=== PATIENT | female | born 1945 | race Caucasian/White ===

== ENCOUNTER → 2017-09-19 11:14 | Outpatient (CLI) | payer MEDICARE, OTHER, SELFPAY ==
[2017-09-19 14:34] LABS: Absolute Lymphocyte Count 1.74 X10^3/ul (0.83-4.51); Absolute Neutrophil Count 6.3 X10^3/uL (2.0-7.7); Basophil# 0.03 X10^3/uL; Basophil% 0.3 % (0-1); Eosinophil# 0.18 X10^3/uL; Hematocrit 38.5 % (37-47); Hemoglobin 12.3 g/dl (12.0-15.0); Lymphocyte # 1.74 X10^3/ul (4.0); Lymphocyte % 18.9 % (19-41); Mean Corp Hgb Conc 31.9 g/gl (32-36); Mean Corpuscular Hgb 29.7 pg (27.0-32.0); Mean Platelet Vol. 10.1 fl (6.2-12.0); Monocyte# 0.92 X10^3/uL; Neutrophil % 68.6 % (47-70); Platelet Count 418 K/mm3 (150-450); RBC Distribution Width CV 13.6 % (11.6-14.6); RBC Distribution Width SD 45.1 fl (35.1-43.9); Red Blood Count 4.14 M/mm3 (4.2-5.4); White Blood Count 9.2 K/mm3 (4.4-11.0)
[2017-09-19 14:40] LABS: POSITIVE COUNT NO; POSITIVE DIFFERENTIAL NO; POSITIVE MORPHOLOGY NO
[2017-09-19 14:56] LABS: T4 Free Direct 1.11 ng/dL (0.76-1.46); Thyroid Stim Hormone (TSH) 0.65 uIU/mL (0.358-3.74)
== END ==
PROVIDERS: Family Provider Internal Medicine; PCP Internal Medicine; Visit Provider Internal Medicine
DX: D64.9 Anemia, unspecified (principal); E03.9 Hypothyroidism, unspecified
CPT/HCPCS: 36415; 84439; 84443; 85025

== ENCOUNTER 2017-10-14 09:30 | Outpatient (RCR) | payer MEDICARE, OTHER, SELFPAY ==
--- NOTE | 2017-08-24 15:03 | HP.PTEVAL_ITS ---
Patient's Visit Information AD CROFT is a 72 year old F referred to Physical Therapy by DANIEL HURD with a diagnosis of S/P LAMINECTOMY. ACUTE POSTOP PAIN. LUMBAR RADICULOPATHY. PARASTHESIAS. Date of Evaluation: 08/24/17 Physical Therapist: Valarie Gonzalez - Visit Plan Frequency: 2-3x /Week Duration: 4-6 Weeks Plan: POSTURE CORRECTION/STRENGTHENING, INSTRUCTION IN APPROPRIATE BODY MECHANICS AND ACTIVITY MODIFICATIONS. DLS STARTING WITH A NEUTRAL SPINE PROGRESSING ROM WHEN OK'D BY SURGEON. MARCELO LE ROM, STRETCHING AND STRENGTHENING. HEP INSTRUCTION. *CURRENTLY NO BENDING, TWISTING OR LIFTING > 4LBS* - Subjective Subjective: DX: LAMINECTOMY AND FUSION OF L345 WITH CAGE PLACEMENT 07/26/17. Work/Leisure: RETIRED. LIKES TO WALK FOR EX. PILATES. Disability: NO. Present symptoms: CENTRAL LOW BACK PAIN. MARCELO HIP AND THIGH PAIN TO KNEES. NUMBNESS IN THE BOTTOM OF RIGHT FOOT. SINCE SURGERY RIGHT LITTLE FINGER IS ALSO NUMB. Present since: SURGERY DATE WAS JUL 26 2017. Pain Scale: LOW BACK: WORST 5/10, LEAST 3/10. HIPS/THIGHS: WORST 6/10, LEAST 0/10. Currently: LBP : 3/10, MARCELO HIPS &THIGHS: 2/10. Commenced as a result of: CHRONIC LOW BACK PAIN AND BULGING DISCS. WAS LOSING FEELING IN FEET AND RIGHT LOWER LEG. WAS ALSO FALLING. Symptoms at onset: LBP. Worse: STANDING, PROLONGED SITTING,. Better: PAIN MEDICINE. LYING DOWN. WALKING SOMETIMES. Disturbed sleep: NO. Previous history/Previous treatment: [facility]. PT MULTIPLE TIMES. PILATES. TENS UNIT. CHIROPRACTOR 1X/MO FOR YEARS. Coughing/sneezing/straining: NEGATIVE. Gait: WALKER IN THE MORNING, AT NIGHT AND WHEN SHE GOES OUT. Difficulty initiating urinatin: NO. Accidents: NO. Unexplained weight loss: NO. Imaging: MOST RECENT X-RAY OF LOW BACK WAS 2 WEEKS AGO AND EVERYTHING LOOKS GOOD. MRI SHOWED L4 NERVE ROOT INVOLVEMENT BEFORE SURGERY. 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 OTHER: PATIENT REPORTS SHE DID NOT HAVE THE NERVE PAIN IN HER HIPS AND LEGS BEFORE SURGERY AND THEY TOLD HER IT WAS FROM THE WORK THEY DID IN HER BACK. OTHERWISE SHE FEELS LIKE THE SURGERY WAS SUCCESSFUL. STATES SHE IS TAKING A LOT OF NEUROTIN AND HASN'T BEEN ABLE TO WEAN OFF DUE TO THE PAIN. UP TO TWO LAPS OF WALKING AT THE GAULT NOW. HAS STARTED PRIVATE TRAINING AGAIN FOR PILATES TODAY. - Objective Sitting Posture: FAIR. Standing Posture: FAIR. Lordosis: REDUCED. Lateral shift: NO. Relevant shift: N/A. Active Correction of posture: BETTER. Other Observations: UNABLE TO TRANSFER FROM SIT TO STAND WITHOUT USE OF HER UE'S. Motor deficit: MARCELO LE'S GROSSLY 4-/5 WITH MMT. Sensory deficit: LIGHT TOUCH SENSATION IS INTACT AND SYMMETRICAL MARCELO LE'S. ROM deficit: WFL. Reflexes: UNABLE TO ELICIT MARCELO LE'S. Dural Signs: NEGATIVE MARCELO LE'S. Lumbar mvmt loss: NT. Core strength: POOR. Palpation: INCISION LOOKS GOOD WITHOUT ANY SIGNS OF INFECTION. - Goals Goal 1:: DECREASE C/O LBP Goal Time Frame: 4-6 Weeks Goal 2:: DECREASE C/O MARCELO LE SX'S. Goal Time Frame: 4-6 Weeks Goal 3:: IMPROVE BENDING, LIFTING, STANDING, WALKING, ADL AND LEISURE FUNCTION Goal Time Frame: 4-6 Weeks Goal 4:: INSTRUCT IN PROPHYLAXIS Goal Time Frame: 4-6 Weeks - Rehabilitation Potential Rehabilitation Potential: Fair - Anticipated Interventions Patient/Client Instruction: Educate patient on: Condition, Plan of Care, Risk Factors, Benefits of Fitness Program For the Purpose of:: To improve self management Therapeutic Exercise to Include: Strength training, Endurance training, Balance training, Body mechanics, Postural training, Flexibilty training, Gait and locomotor training, Dynamic Lumbar Stabilization For the Purpose of:: To improve ability of physical actions for home/community/ work/leisure, To improve gait and locomotor functions, To assume or resume ADL's Cryotherapy (ice pack, ice massage): Yes Thermo therapy (hot pack): Yes For the Purpose of:: To decrease pain, To decrease swelling/inflammation Thank you for the opportunity to evaluate your patient. For Medicare and Medicare HMO plans, please review the plan of care and approve it. It will need to be FAXED BACK to us at [phone] for Medicare purposes. Please let me know if there are questions or concerns regarding this plan of care. Physician Signature: Date:
--- NOTE | 2017-08-25 09:28 | HP.OTEVAL_ITS ---
Patient's Visit Information AD CROFT is a 72 year old F, referred to Occupational Therapy by VICKEY NICOLAS, with a diagnosis of s/p Laminectomy with Fusion. Date of Evaluation: 08/24/17 Occupational Therapist: Lindsay Arenas - Subjective Subjective: Pt had laminectomy with lumbar fusion on 07/26/17 secondary to increased pain limiting her independence with BADLs, IADLS and overall quality of life. She now has restrictions for no lifting greater than 4lbs, no bending and no twisting. She lives with her and is using a wheeled walker for ambulation and DME/AE for BADLs at this time. She is limited with her independence with BADLs/IADLs secondary to her s/p laminectomy. Her is able to assist her with BADL's/IADL's when needed. Pt has increased pain in her bilateral hips since surgery in July. - Pain bilateral hips 2 Pain Intensity Range: 2, 5 - Objective Objective/Observation: Pt demonstrated decreased independence with BADLs/IADLs. Pt demo increased pain in her lower back and bilateral hips that limits her with BADL's/IADLs as well as having her back restrictions. Pt has to use DME/AE to assist w/ BADL's. - ROM ROM Comments: BUE ROM WFL - Strength Strength Comments: DNT 2' back restrictions. Pt was participating with pilates prior to sx and just started taking 1 on 1 pilates again 08/24/17. - Edema Other: no edema noted - Sensation Sensation Comments: pt states numbness/tingling R 5th digit since sx. Pt states it is starting to get better and not tingle as much. - DASH-Disabilities of Arm, Shoulder& Hand DASH Sum: 69 - Goals Goal:: Pt will be MOD I with all BADL's using DME/AE as needed while maintaining back restrictions with good safety awareness. Goal:: Pt will be MOD I with walk in shower transfers using shower chair and grab bars as needed. Goal:: Pt will be educated on DME/AE, adaptive tech, compensatory strategies and energy conservation techniques to assist with BADLs/IADLs while maintaining back restrictions with good understanding and demonstration 100%x. Goal:: Pt will be educated on BUE HEP to increase strength and activity tolerance with good understanding and follow-through 100%x. - Rehabilitation General Assessment: Pt demo decreased independence with BADLS/IADLs secondary to back restrictions s/p sx. Pt demo increased pain in her bilateral hips s/p sx. Pt demo decreased awareness and education on adaptive tech, compensatory strategies and DME/AE to increase her independence and safety with BADLs/IADLs. Rehabilitation Potential: Excellent - Anticipated Interventions Anticipated Interventions: Strengthening, ADL Training, Education re assistive Equipment, Caregiver Training, Home Program - Visit Plan Frequency: 1x/Week Duration: 4 Weeks General Plan: increase independence with BADL's/IADL's, educate on DME/AE, compensatory strategies, adaptive tech, energy conservation tech. Educate on BUE HEP to increase strength and activity tolerance. TEXT: Thank you for the opportunity to evaluate your patient. For Medicare and Medicare HMO plans, please review the plan of care and approve it. It will need to be FAXED BACK to us at [phone] for Medicare purposes. Please let me know if there are questions or concerns regarding this plan of care. Physician Signature: Date:
--- NOTE | 2017-09-19 16:42 | HP.PTREVAL_ITS ---
VICKEY NICOLAS It has been my pleasure to treat AD CROFT over the last 10 visits for S/ P LAMINECTOMY. ACUTE POSTOP PAIN. LUMBAR RADICULOPATHY. PARASTHESIAS. Please see the progress note below for an update on the physical therapy plan of care! Subjective: PATIENT REPORTS THAT THE HEAT AND THE STRETCHES HELPED LAST VISIT AND SHE IS FEELING BETTER TODAY. PATIENT REPORTS SHE IS BETTER OVER-ALL. SHE STATES SHE DOESN'T HAVE TO USE THE WALKER NOW AND SHE DOESN'T HAVE TO TAKE THE STRONGER PAIN MEDICINE ANYMORE - JUST TYLONOL NOW. ABLE TO DO SOME THINGS IN THE KITCHEN NOW. CAN DO SOME LIGHT MOPPING WITHOUT TWISTING. CAN DO STEPS IF SHE DOESN'T LEAD WITH RIGHT LEG. CAN DRIVE. WENT TO [place] FOR THE FIRST TIME TUESDAY AND WENT TO A MOVIE. PAIN DOES GET WORSE THE DAY GOES ON AND STANDING PROVOKES PAIN. HARD TO STAND LONG ENOUGH TO PREPARE A LIGHT MEAL. WENT BACK TO SURGEON Aug AND THEY REALEASED HER. STATES THEY LIFTED ALL OF HER RESTRICTIONS AND SHE IS ALLOWED TO DO ACTIVITY TOLERATED AT THIS POINT INCLUDING BENDING, LIFTING AND TWISTING. SHE HAS BEEN INCREASING THOSE ACTIVITIES. HAD INCREASED RIGHT LE PAIN ABOUT A WEEK AGO FOR NO APPARENT REASON AND COULDN'T DO HER HOME EX'S BUT SHE CAN AGAIN NOW. SHE IS STILL HAVING MORE TROUBLE MOVING NOW THAN BEFORE THAT FLARE UP. STATES HER HAMSTRINGS L>R STILL FEEL TIGHT AND SHE FEELS MORE MUSCULAR TIGHTNESS IN HER BACK NOW THAN BEFORE THE WEEKEND OF SEP 10 AND . WOULD LIKE TO STAY IN PT TO SAFELY TRANSITION BACK TO BETTER MOBILITY WITHOUT RESTRICTIONS NOW. Objective/Function: Observations: ABLE TO TRANSFER FROM SIT TO STAND WITHOUT USE OF HER UE'S BUT IT IS DIFFICULT. Motor deficit: MARCELO LE'S GROSSLY 4-/5 WITH MMT. Sensory deficit: LIGHT TOUCH SENSATION IS INTACT AND SYMMETRICAL MARCELO LE'S. ROM deficit: WFL. Reflexes: UNABLE TO ELICIT MARCELO LE'S. Dural Signs: NEGATIVE LEFT AND MILDY POSITIVE RIGHT LE. Lumbar mvmt loss: FLEX - MOD, EXT - SANKET, MARCELO SG - SANKET. Core strength: POOR. Palpation: INCISION LOOKS GOOD WITHOUT ANY SIGNS OF INFECTION BUT THREE SPOTS THAT STILL HAVE SCAB OR GLUE. PATIENT REPORTS IT IS GETTING BETTER. RECOMMENDED SHE HAVE HER CONTINUE TO MONITOR IT. Plan Plan: RECOMMEND CONTINUE PT FOR POSTURE AND CORE STRENGTHEING, STM, MARCELO LE STRENGTHENING AND SLOW PROGRESSION OF LUMBAR ROM. EMPHASIZE INSTRUCTION IN PROPER BODY MECHANICS AND HELP PATIENT RESUME TO PRIOR ACTIVITY LEVEL SAFELY. MH OR CP INDICATED. Goals Goal 1:: DECREASE C/O LBP Goal Time Frame: 4-6 Weeks Goal Progress: Progressing Goal 2:: DECREASE C/O MARCELO LE SX'S. Goal Time Frame: 4-6 Weeks Goal Progress: Progressing Goal 3:: IMPROVE BENDING, LIFTING, STANDING, WALKING, ADL AND LEISURE FUNCTION Goal Time Frame: 4-6 Weeks Goal Progress: Progressing Goal 4:: INSTRUCT IN PROPHYLAXIS Goal Time Frame: 4-6 Weeks Goal Progress: Progressing Anticipated Interventions Patient/Client Instruction: Educate patient on: Condition, Plan of Care, Risk Factors, Benefits of Fitness Program For the Purpose of:: To improve self management Therapeutic Exercise to Include: Strength training, Endurance training, Balance training, Body mechanics, Postural training, Flexibilty training, Gait and locomotor training, Dynamic Lumbar Stabilization For the Purpose of:: To improve ability of physical actions for home/community/ work/leisure, To improve gait and locomotor functions, To assume or resume ADL's Cryotherapy (ice pack, ice massage): Yes Thermo therapy (hot pack): Yes For the Purpose of:: To decrease pain, To decrease swelling/inflammation Please do not hesitate to contact me at [phone] by phone or Fax: if you have questions or concerns regarding this new plan of care! Sincerely, Valarie Gonzalez
--- NOTE | 2017-10-14 10:03 | HP.PTDCSUM_ITS ---
HP - PT D/C Summary It has been my pleasure to treat AD CROFT under orders from VICKEY NICOLAS for the diagnosis of S/P LAMINECTOMY. ACUTE POSTOP PAIN. LUMBAR RADICULOPATHY. PARASTHESIAS for a total of 19 visit(s). Discharge Date: Please see the following information for a summary of their discharge status. - Subjective Subjective: PATIENT REPORTS SHE CAN MOVE BETTER AND MOST OF THE TIME SHE DOESN' T HAVE PAIN. PATIENT REPORTS SHE IS ABLE TO MOST THINGS THAT SHE HAS TO DO IN HER LIFE AND SHE IS SLEEPING WELL. WALKING 45 TO 50 MIN ABOUT 4 TIMES A WEEK. ABLE TO DO PALATES AND HOME EX'S. MY LEGS ARE GETTING STRONGER BUT RIGHT LEG IS STILL A LITTLE WEAK. I CAN FEEL MY FEET PATIENT REPORTS SHE STILL HAS A LITTLE NUMBNESS BUT GETTING BETTER. GETTING UP FROM KNEELING IS STILL HARD. SQUATTING TO USE GOOD BODY MECHANICS TO GET THINGS UP OFF THE FLOOR IS SOMEWHAT DIFFICAULT. SITTING TOLERANCE IS GETTING BETTER. PATIENT REPORTS THAT NOW SHE CAN SAY SHE IS GLAD SHE HAD THE SURGERY. - Pain LB Pain Intensity (Out of 10): 0 - Overall Improvement % Improvement: 80 - Objective Objective/Function: ABLE TO TRANSFER FROM SIT TO STAND EASILY WITHOUT USE OF HER UE'S NOW. Motor deficit: MARCELO LE'S GROSSLY 4 TO 5/5 WITH MMT. Sensory deficit: LIGHT TOUCH SENSATION IS INTACT AND SYMMETRICAL MARCELO LE'S. ROM deficit : WFL. Dural Signs: NEGATIVE MARCELO LE'S. Lumbar mvmt loss: FLEX - MOD, EXT - SANKET , MARCELO SG - SANKET. Core strength: FAIR. Palpation: INCISION LOOKS GOOD WITHOUT ANY SIGNS OF INFECTION OR SIGNS OF SCAB/GLUE. PATIENT - Goals Goal 1:: DECREASE C/O LBP Goal Progress: Goal Met Goal 2:: DECREASE C/O MARCELO LE SX'S. Goal Progress: Goal Met Goal 3:: IMPROVE BENDING, LIFTING, STANDING, WALKING, ADL AND LEISURE FUNCTION Goal Progress: Goal Met Goal 4:: INSTRUCT IN PROPHYLAXIS Goal Progress: Goal Met - Plan Plan: D/C. ALL GOALS MET. PATIENT IS AGREEABLE TO D/C. - D/C Information If there are questions or concerns regarding this patient's physical therapy, please feel free to call me at [phone]. Thank you for the referral of this patient. Sincerely, Valarie Gonzalez
== END 2017-10-14 19:00 | disposition home or self-care (01) ==
LOC: PT 09:30
PROVIDERS: Family Provider Internal Medicine; PCP Internal Medicine
DX: M54.15 Radiculopathy, thoracolumbar region (principal); G89.18 Other acute postprocedural pain; R20.9 Unspecified disturbances of skin sensation; Z98.890 Other specified postprocedural states; D64.9 Anemia, unspecified; E03.9 Hypothyroidism, unspecified
CPT/HCPCS: 36415; 84439; 84443; 85025; 97110; 97140; 97162; 97165; 97530

== ENCOUNTER → 2017-11-23 10:48 | Outpatient (CLI) | payer MEDICARE, OTHER, SELFPAY ==
--- NOTE | 2017-11-23 10:59 | RAD_ITS ---
STUDY: X-RAY - LUMBAR SPINE REASON FOR EXAM: Female, 72 years old. Lower back pain TECHNIQUE: 6 view(s) of the lumbar spine were obtained. COMPARISON: None FINDINGS: Normal lumbar lordosis. There is no substantial scoliosis. There is a normal alignment of the vertebrae. There is posterior fusion at L3-4 and L4-5. There is diffuse demineralization with multi-level endplate spondylosis. There is multi-level degenerative disc disease with multi-level disc space narrowing. The flexion-extension views show limited range of motion. There is no evidence of instability There is atherosclerotic calcification of the abdominal aorta without a demonstrated aneurysm. RAD/L/S Spine Min 4 Views IMPRESSION: Degenerative changes of the spine, as detailed above. Electronically Signed: Jason Cuellar MD at 12:01 EDT Tel , Service support ,
== END ==
PROVIDERS: Family Provider Internal Medicine; PCP Internal Medicine
DX: Z98.1 Arthrodesis status (principal); M47.896 Other spondylosis, lumbar region; M51.36 Other intervertebral disc degeneration, lumbar region; M48.061 Spinal stenosis, lumbar region without neurogenic claudication
CPT/HCPCS: 72110

== ENCOUNTER → 2018-01-05 14:20 | Outpatient (CLI) | payer MEDICARE, OTHER, SELFPAY ==
--- NOTE | 2018-01-05 14:23 | RAD_ITS ---
STUDY: X-RAY - PELVIS AND LEFT HIP REASON FOR EXAM: Hip pain. TECHNIQUE: Radiological exam, hip, unilateral, with pelvis when performed; 2 or 3 views. COMPARISON: None. FINDINGS: There are postoperative changes of the lumbar spine. Normal bilateral iliac wings, sacroiliac joints and visualized sacrum. Normal bilateral superior and inferior pubic rami. There are degenerative changes of the pubic symphysis. Normal bilateral ischial tuberosities. Normal visualized femoral head. Normal acetabulum. Normal hip joint. RAD/Hip 2-3 Views with Pelvis IMPRESSION: Degenerative changes of the pubic symphysis. Otherwise, unremarkable x-ray examination of the pelvis and left hip. Electronically Signed: Albin Herrera MD at 15:27 EDT Tel , Service support ,
--- NOTE | 2018-01-05 14:23 | RAD_ITS ---
STUDY: X-RAY - LEFT KNEE REASON FOR EXAM: Knee pain. TECHNIQUE: 4 view(s) of the knee. COMPARISON: Radiograph report 12/11/2012. FINDINGS: Normal visualized distal femur. Normal visualized proximal tibia and fibula. Normal proximal tibiofibular articulation. Normal medial femorotibial compartment. Normal lateral femorotibial compartment. Normal patellofemoral articulation. There is a small superior patellar enthesophyte. RAD/Knee 4 or More Views IMPRESSION: Small patellar enthesophyte. Otherwise, unremarkable x-ray examination of the left knee. Electronically Signed: Albin Herrera MD at 15:15 EDT Tel , Service support ,
== END ==
PROVIDERS: Family Provider Internal Medicine; PCP Internal Medicine; Visit Provider Orthopaedic Surgery
DX: M16.12 Unilateral primary osteoarthritis, left hip (principal); M76.892 Other specified enthesopathies of left lower limb, excluding foot
CPT/HCPCS: 73502; 73564

== ENCOUNTER → 2018-02-09 08:33 | Outpatient (CLI) | payer MEDICARE, OTHER, SELFPAY ==
[2018-02-09 10:25] LABS: ALB/GLOB Ratio 0.9 RATIO (0.9-2.4); AST(SGOT) 16 U/L (15-37); Alanine Aminotransfer ALT/SGPT 24 U/L (13-56); Albumin, Serum 3.7 g/dL (3.2-5.0); Alkaline Phosphatase 72 U/L (45-117); Anion Gap 7 (5-15); BUN 10 mg/dL (7-18); BUN/Creat Ratio 12.6 RATIO (10-20); Calcium,Total 9.1 mg/dL (8.5-10.1); Chloride 105 mmol/L (98-107); Cholesterol 147 mg/dL (200); Creatinine, Serum 0.79 mg/dL (0.55-1.02); EST Glomerular Filtration Rate 76 mL/min (>60); Est Glom Filt Rate - Afr Amer 91 mL/min (>60); Glucose 77 mg/dL (74-106); High Density Lipoprotein 87 mg/dL; Potassium 4.4 mmol/L (3.5-5.1); Protein, Total 7.7 g/dL (6.4-8.2); Sodium Level 134 mmol/L (136-145); Triglycerides 80 mg/dL; Very Low Density Lipoprotein 16 mg/dL (5-40)
== END ==
PROVIDERS: Family Provider Internal Medicine; PCP Internal Medicine; Visit Provider Internal Medicine
DX: K76.0 Fatty (change of) liver, not elsewhere classified (principal); E78.5 Hyperlipidemia, unspecified
CPT/HCPCS: 36415; 80053; 80061

== ENCOUNTER → 2018-03-27 12:07 | Outpatient (CLI) | payer MEDICARE, OTHER, SELFPAY ==
--- NOTE | 2018-03-27 12:17 | RAD_ITS ---
STUDY: X-RAY - LUMBAR SPINE REASON FOR EXAM: Female, 72 years old. Recheck lower back surgery lumbar fusion July 2017. TECHNIQUE: 4 view(s) of the lumbar spine were obtained. COMPARISON: Lumbar spine radiographs 11/23/2017, 05/16/2017, 04/01/[address] abdomen and pelvis 06/28/2014. FINDINGS: Slight scoliosis. Generalized osteopenia. Normal lumbar lordosis. L3-L5 posterior ad and pedicle screw fixation with laminectomy and interbody fusion spacers. The surgical construct is intact. Slight retrolisthesis of L2-L3. Slight anterior listhesis of L4-L5. Slight anterior listhesis of L5-S1. Moderate disc narrowing L1-L2. Moderate disc narrowing with vacuum changes L2-L3. In flexion, no apparent subluxation. In extension, no apparent subluxation. RAD/L/S Spine Min 4 Views IMPRESSION: No apparent abnormal motion with flexion and extension of the lumbar spine. The surgical construct is intact. The pattern of spondylosis has not substantially changed compared to prior imaging. Electronically Signed: Fabricio Downs, at 12:32 EDT Tel , Service support ,
== END ==
LOC: MTLAB 12:11 → MTRAD 12:13
PROVIDERS: Family Provider Internal Medicine; PCP Internal Medicine
DX: Z09 Encounter for follow-up examination after completed treatment for conditions other than malignant neoplasm (principal); Z98.1 Arthrodesis status
CPT/HCPCS: 72110; 72114

== ENCOUNTER → 2018-05-02 10:26 | Outpatient (CLI) | payer MEDICARE, OTHER, SELFPAY ==
--- NOTE | 2018-05-02 10:37 | BD_ITS ---
STUDY: DUAL ENERGY X-RAY ABSORPTIOMETRY / DXA REASON FOR EXAM: Female, 72 years old. The patient is postmenopausal. Loss of height. TECHNIQUE: Bone Mineral Density (BMD) measurements of lumbar spine and bilateral hips were obtained. COMPARISON: Comparison is made with prior study dated April 27, 2016. FINDINGS: Lumbar Spine (L1-L4): g/cm2 (1.020) / T-score (-1.2) / Z-score (0.5) Findings are suggestive of osteopenia with a moderate fracture risk. Left Femur Total: g/cm2 (0.791) / T-score (-1.7) / Z-score (-0.1) Left Femoral Neck: g/cm2 (0.814) / T-score (-1.6) / Z-score (0.2) Right Femur Total: g/cm2 (0.804) / T-score (-1.6) / Z-score (0.0) Right Femoral Neck: g/cm2 (0.805) / T-score (-1.7) / Z-score (0.2) The T-Scores on the most recent prior examination were: Lumbar Spine (L1-L4): There has been worsening of bone density since the previous examination. Left Femur Total: which represents a worsening of 3.1%. Right Femur Total: which represents a worsening of 2.9%. BD/Dexa Bone Density Study IMPRESSION: The patient is considered osteopenic as outlined below according to World Aravind Organization (WHO) criteria with a moderate fracture risk. There has been worsening of bone density since the previous examination. Reference Information: The T-score is the number of standard deviations above or below the standard which is normal for young adults at their peak bone mineral density. The World Health Organization (WHO) interprets the T-scores as follows: Above -1 Normal bone density Between -1 and -2.5 Osteopenia Equal to / or below -2.5 Osteoporosis As a practical clinical guideline, osteopenia may be graded as follows: Mild -1 through -1.5 Moderate -1.6 through -2.0 Severe -2.1 through -2.4 The Z-score is the number of standard deviations above or below age-matched controls. A Z-score of less than -1.5 would be considered abnormal. References: 1. NIH Osteoporosis and Related Bone Diseases http://www.osteo.org 2. International Society for Clinical Densitometry http://www.iscd.org 3. National Osteoporosis Foundation http://www.nof.org Electronically Signed: Cb Martino MD at 16:00 EDT Tel [phone], Service support ,
== END ==
PROVIDERS: Family Provider Internal Medicine; PCP Internal Medicine; Visit Provider Internal Medicine
DX: M81.8 Other osteoporosis without current pathological fracture (principal)
CPT/HCPCS: 77080

== ENCOUNTER 2018-05-02 16:00 | Outpatient (RCR) | payer MEDICARE, OTHER, SELFPAY ==
--- NOTE | 2018-01-18 09:23 | HP.PTEVAL_ITS ---
Patient's Visit Information AD CROFT is a 72 year old F referred to Physical Therapy by Katalina Gamez DO with a diagnosis of L greater trochanteric bursitis, IT band syndrome, piriformis syndrome. Date of Evaluation: 01/11/18 Physical Therapist: Reza Vazquez - Visit Plan Frequency: 2x /Week Duration: 4 Weeks Plan: Start with pirifromis stretching, US to greater trochanteric, FTL stretching. Add in hip stability exercises once symptoms have reduced. - Subjective Subjective: Pt. is here today for her initial evaluation with diagnosis of L greater trochanteric bursitis, IT band syndrome, piriformis syndrome. Pt has a history of lumbar fusion in July of last year. Pt. is to follow up with physician for her lumbar surgery next week. Pt. reports having L hip/leg pain that icreases with walking and standing. Pt. reports having pain also with lying on either side, but is worse with lying on her R side. Pt. denies N/T in either LE. Pt. was previously going to [employer], but had to stop due to pain and she did not want to irritate her symptoms. Pt. has trialed piriformis stretching, but may be flexing her spine with stretching. Pt. reports no mechanism of injury, but a gradual onset over the last 3 weeks. Pt. is hopeful to reduce her symptoms in order to get back to all prior activities without issues. - Pain L lateral hip Pain Intensity (Out of 10): 4 Pain Intensity Range: 2, 6 - Objective Posture: Pt. had close to normal posture in stance. Pt. has slight flexed posture at lumbar spine. Pt. has normal wt. shift without lateral shifting of wt. or off loading. PALPATION: Pt. has increased tenderness to L greater trochanter, no longer having pain at IT band distally. Pt. has increased soreness to L piriformis muscle belly as well, as well as lateral lumbar spine on L side. NEUROLOGICAL: Pt. has normal sensation to light and sharp touch of bilateral LEs. Pt. has 2+ patellar and achilles DTR bilaterally. Pt. is able to rise on heels and toes without visible weakness, did require balance aide. ROM : L hip- tightness noted with hip ER/IR mild increase in symptoms with both at piriformis region. No groin pain noted. Pt. has normal HS length. Lumbar spine - flexion min loss NE, ext mod loss NE, SB min loss bilat NE, rotation mod/min loss NE. MMT: RLE- ankle/knee 5/5 througout; hip- flexio 4+/5, abd 4/5, ext 4+ /5. LLE- ankle/knee 5/5 throughout; hip- flexion 4/5, abd 4/5, ext 4/5. GAIT: Pt. ambulates with decreased tempo, increased lateral hip translation symmetrically. Pt. has slgith flexed posture. Increased pain during L stance phase. - Goals Goal 1:: Pt. to be I with HEP. Goal Time Frame: 4-6 Weeks Goal 2:: Pt. to have increased hip ER/IR ROM to full without increase in lateral hip pain Goal Time Frame: 4-6 Weeks Goal 3:: Pt. to have increased hip strength by 1/2 grade of all effected musculature to reduce stress at lateral hip with all functional mobility. Goal Time Frame: 4-6 Weeks Goal 4:: Pt. to have ambulate unlimited distances with 0-1/10 pain in L lateral hip allowing for increased community mobility. Goal Time Frame: 4-6 Weeks Goal 5:: Pt. to sleep throughout the night with 0-1/10 pain in L lateral hip. Goal Time Frame: 4-6 Weeks - Rehabilitation Potential Physical Therapy Diagnosis: L greater trochanteric bursitis, IT band syndrome, piriformis syndrome. Pt. does have a recent history of lumbar fusion, I do think that it is a good idea to follow up with surgeon at this point in time in case, no signs point to major injury of lumbar spine. Pt. does have + signs of IT band pain and greater trochanteric bursitis with piriformis involvement. Distal IT band as resolved with injection from physician. Pt. would benefit from US to reduce inflammation, pirifromis stretching and glute med strengthening once pain as resolved. Rehabilitation Potential: Excellent - Anticipated Interventions Patient/Client Instruction: Educate patient on: Condition, Plan of Care, Risk Factors, Benefits of Fitness Program For the Purpose of:: To improve decision making, To facilitate caregiver knowledge, To improve self management, To prevent re-injury, To improve ability to perform tasks related to life management, To improve tolerance to ADL's Therapeutic Exercise to Include: Strength training, Power training, Endurance training, Flexibilty training, Passive ROM, Active ROM, Dynamic Lumbar Stabilization For the Purpose of:: To decrease pain, To decrease swelling/inflammation, To increase ROM, To improve nutrient delivery to tissue, To improve health of tissue, To decrease soft tissue restriction, To increase flexibility/ROM, To improve endurance IF ES: Yes Thermo therapy (hot pack): Yes Ultrasound (thermal/non thermal): Yes For the Purpose of:: To decrease pain, To decrease swelling/inflammation, To increase ROM Thank you for the opportunity to evaluate your patient. For Medicare and Medicare HMO plans, please review the plan of care and approve it. It will need to be FAXED BACK to us at [phone] for Medicare purposes. Please let me know if there are questions or concerns regarding this plan of care. Physician Signature: Date:
--- NOTE | 2018-06-16 13:48 | HP.PT.NRP ---
HP - Discharge Summary (1) - Patient Information AD CROFT was seen in my office for initial evaluation on 01/11/18. The following Plan of Care was established for this patient: Initial Frequency: 2x /Week Initial Duration: 4 Weeks - Anticipated Interventions Patient/Client Instruction: Educate patient on: Condition, Plan of Care, Risk Factors, Benefits of Fitness Program For the Purpose of:: To improve decision making, To facilitate caregiver knowledge, To improve self management, To prevent re-injury, To improve ability to perform tasks related to life management, To improve tolerance to ADL's Therapeutic Exercise to Include: Strength training, Power training, Endurance training, Flexibilty training, Passive ROM, Active ROM, Dynamic Lumbar Stabilization For the Purpose of:: To decrease pain, To decrease swelling/inflammation, To increase ROM, To improve nutrient delivery to tissue, To improve health of tissue, To decrease soft tissue restriction, To increase flexibility/ROM, To improve endurance IF ES: Yes Thermo therapy (hot pack): Yes Ultrasound (thermal/non thermal): Yes For the Purpose of:: To decrease pain, To decrease swelling/inflammation, To increase ROM This patient was last seen in our office 01/18/18. Pertinent comments regarding their Physical therapy will appear below: Pt. was seen for her greater trochanteric bursitis. Pt. was treated with stretching and DN. Pt. was seening occassional in passing and reported that she was doing much better. Pt. has not been seen in several months and will be DC from PT at this point in time. At this point I will be discontinuing this patient from physical therapy. I would be happy to see this patient again in the future if found appropriate by the physician. Thank you! Reza Vazquez
== END 2018-05-02 19:00 | disposition home or self-care (01) ==
LOC: PT 16:00
PROVIDERS: Family Provider Internal Medicine; PCP Internal Medicine; Visit Provider Orthopaedic Surgery
DX: M70.62 Trochanteric bursitis, left hip (principal); M76.32 Iliotibial band syndrome, left leg
CPT/HCPCS: 97035; 97110; 97162; G8978; G8979

== ENCOUNTER → 2018-05-08 11:25 | Outpatient (CLI) | payer OTHER, MEDICARE, SELFPAY ==
--- NOTE | 2018-05-08 11:33 | RAD_ITS ---
STUDY: X-RAY - LUMBAR SPINE REASON FOR EXAM: Female, 72 years old. Trauma pain TECHNIQUE: 3 view(s) of the lumbar spine were obtained. COMPARISON: March 27, 2018 FINDINGS: Prior posterior fusion L3-L5 with laminectomy. Multilevel degenerative changes. Disc spacers L4-L5 and L3-L4. No acute fractures seen. The marker for the L4-L5 disc spacer appears slightly posterior and superiorly located similar to prior study. There is grade 1 retrolisthesis L2 on L3. Grade 1 anterior listhesis L4 on L5. RAD/Lumbar Spine 2 or 3 Views IMPRESSION: Multiple old degenerative changes. No acute fracture. Postsurgical changes L3-L5. Similar to prior exam. Electronically Signed: Zheng Bearden, at 4:15 EDT Tel , Service support ,
== END ==
PROVIDERS: Family Provider Internal Medicine; PCP Internal Medicine; Visit Provider Internal Medicine
DX: M54.5 Low back pain (principal); V89.2XXA Person injured in unspecified motor-vehicle accident, traffic, initial encounter
CPT/HCPCS: 72100

== ENCOUNTER → 2018-05-08 11:34 | Outpatient (CLI) | payer MEDICARE, OTHER, SELFPAY ==
[2018-05-08 14:22] LABS: Vitamin D,25 Hydroxy 69.4 ng/mL (29.95-100.01)
== END ==
PROVIDERS: Family Provider Internal Medicine; PCP Internal Medicine; Visit Provider Internal Medicine
DX: M85.80 Other specified disorders of bone density and structure, unspecified site (principal)
CPT/HCPCS: 36415; 82306

== ENCOUNTER → 2018-05-15 10:37 | Outpatient (CLI) | payer MEDICARE, OTHER, SELFPAY ==
--- NOTE | 2018-05-15 10:44 | RAD_ITS ---
STUDY: X-RAY - LUMBAR SPINE REASON FOR EXAM: Female, 72 years old. s/p lumbar fusion, was done in July TECHNIQUE: 7 view(s) of the lumbar spine were obtained. COMPARISON: CR Lumbar Spine May 08 2018 11:40am FINDINGS: Normal lumbar lordosis. There is no substantial scoliosis. There is grade 1 retrolisthesis L2 on L3. Grade 1 anterior listhesis L4 on L5. Spinal fixation hardware is noted. There are laminectomy changes in the spine. This is consistent for previous surgery. Intervertebral disc spacers at L3-4 and L4-5. There is multilevel endplate spondylosis of the lumbar vertebrae. There is multi-level degenerative disc disease with multi-level disc space narrowing. There are atherosclerotic vascular calcifications. The soft tissue structures are unremarkable. RAD/L/S Spine Min 4 Views IMPRESSION: Degenerative changes of the spine, as detailed above. Electronically Signed: Dk Chavez MD at 16:40 EDT , Service support ,
== END ==
PROVIDERS: Family Provider Internal Medicine; PCP Internal Medicine
DX: Z98.1 Arthrodesis status (principal)
CPT/HCPCS: 72110

== ENCOUNTER → 2018-06-05 10:38 | Outpatient (CLI) | payer MEDICARE, OTHER, SELFPAY ==
--- NOTE | 2018-06-05 10:40 | BI_ITS ---
MAMMOGRAPHY - BILATERAL SCREENING REASON FOR EXAM: Female, 72 years old. Routine annual screening examination. PERTINENT HISTORY: Non-contributory. TECHNIQUE: Digital bilateral breast chiquita (3D mammographic acquisition) in the CC and MLO projections. 2-D mediolateral oblique (MLO) and craniocaudad (CC) views of both breasts were obtained. CAD: Full Field Digital Mammography with Computer Added Detection was performed. COMPARISON: Comparison is made with prior study dated December 23, 2016 and December 11, 2015. FINDINGS: Breast Composition: There are scattered areas of fibroglandular density. There are no dominant masses or suspicious calcifications. No other significant abnormalities are identified. There has been no significant change since the prior study. BI/SCREENING MAMM (CAD), BILAT IMPRESSION: Stable bilateral screening mammogram. Yearly follow-up mammogram recommended. (A) ASSESSMENT CATEGORY: BIRADS Category 1: Negative. A letter regarding these results will be sent to the patient by the facility within 30 days. Approximately 10% of breast cancers are not detected by mammography. A normal mammogram should not delay biopsy of a clinically suspicious abnormality. [id number] Electronically Signed: Cb Martino MD at 15:38 EDT Tel [phone], Service support ,
== END ==
PROVIDERS: Family Provider Internal Medicine; PCP Internal Medicine; Referring Provider Internal Medicine; Visit Provider Internal Medicine
DX: Z12.31 Encounter for screening mammogram for malignant neoplasm of breast (principal)
CPT/HCPCS: 77063; 77067

== ENCOUNTER → 2018-10-02 14:01 | Outpatient (CLI) | payer MEDICARE, OTHER, SELFPAY ==
[2018-09-20 09:15] VITALS: BMI 25.9
[2018-10-02 16:03] LABS: Absolute Lymphocyte Count 1.51 X10^3/ul (0.83-4.51); Absolute Neutrophil Count 7.7 X10^3/uL (2.0-7.7); Basophil# 0.03 X10^3/uL; Basophil% 0.3 % (0-1); Eosinophil# 0.03 X10^3/uL; Eosinophils% 0.3 % (0-5); Hematocrit 41.6 % (37-47); Hemoglobin 13.4 g/dl (12.0-15.0); Lymphocyte # 1.51 X10^3/ul (4.0); Mean Corp Hgb Conc 32.2 g/gl (32-36); Mean Corpuscular Hgb 30.4 pg (27.0-32.0); Mean Corpuscular Volume 94.3 fL (81-99); Mean Platelet Vol. 9.6 fl (6.2-12.0); Monocyte# 0.74 X10^3/uL; Monocyte% 7.4 % (0-10); Neutrophil # 7.74 X10^3/uL (2.7-7.7); Neutrophil % 76.9 % (47-70); POSITIVE COUNT NO; POSITIVE DIFFERENTIAL NO; POSITIVE MORPHOLOGY NO; Platelet Count 444 K/mm3 (150-450); RBC Distribution Width CV 14.1 % (11.6-14.6); RBC Distribution Width SD 46.7 fl (35.1-43.9); Red Blood Count 4.41 M/mm3 (4.2-5.4); White Blood Count 10.1 K/mm3 (4.4-11.0)
[2018-10-02 16:24] LABS: Anion Gap 8 (5-15); BUN 12 mg/dL (7-18); BUN/Creat Ratio 17.2 RATIO (10-20); Calcium,Total 8.5 mg/dL (8.5-10.1); Chloride 105 mmol/L (98-107); EST Glomerular Filtration Rate 87 mL/min (>60); Est Glom Filt Rate - Afr Amer 106 mL/min (>60); Glucose 75 mg/dL (74-106); Potassium 3.9 mmol/L (3.5-5.1); Sodium Level 138 mmol/L (136-145); T4 Free Direct 1.29 ng/dL (0.76-1.46); Thyroid Stim Hormone (TSH) 0.87 uIU/mL (0.358-3.74)
== END ==
PROVIDERS: Family Provider Internal Medicine; PCP Internal Medicine; Referring Provider Internal Medicine; Visit Provider Internal Medicine
DX: E03.9 Hypothyroidism, unspecified (principal)
CPT/HCPCS: 36415; 80048; 84439; 84443; 85025

== ENCOUNTER → 2018-11-14 14:30 | Outpatient (CLI) | payer MEDICARE, OTHER, SELFPAY ==
[2018-11-07 10:09] VITALS: BMI 25.9
--- NOTE | 2018-11-14 14:33 | CT_ITS ---
STUDY: CT MAXILLOFACIAL SINUSES REASON FOR EXAM: Female, 73 years old. Sinusitis RADIATION DOSAGE (If Supplied By Facility): CTDIvol = ( 33.06 ) mGy, DLP = ( 751.21 ) mGycm TECHNIQUE: The patient was scanned in a multi detector CT scanner. High resolution axial imaging was performed without the administration of intravenous contrast material. Sagittal and coronal images were reconstructed. Individualized dose optimization techniques were used for this CT. COMPARISON: None. FINDINGS: FRONTAL SINUSES: Normal aeration, without mucosal inflammatory disease. ETHMOIDAL SINUSES: Opacification of a single left mid ethmoid air cell and a single right posterior ethmoid air cell. MAXILLARY SINUSES: Right maxillary sinus normal. Mucous retention cyst of the left maxillary sinus measuring approximately 1.2 cm. SPHENOIDAL SINUSES: Normal aeration, without mucosal inflammatory disease. Mild leftward septal bowing. Normal appearance of the nasal passages. Normal turbinates. Mastoid air cells and middle ear cavities are clear. Craniofacial osseous structures intact. Extra cranial soft tissues including the contents are normal. No acute intracranial process is evident in limited evaluation. CT/Sinus/Facial Bone IMPRESSION: Chronic paranasal sinus disease involving the left maxillary, bilateral ethmoid sinuses. Electronically Signed: Fabricio Downs MD at 11:05 EDT Tel , Service support ,
== END ==
PROVIDERS: Family Provider Internal Medicine; PCP Internal Medicine; Referring Provider Otolaryngology; Visit Provider Otolaryngology
DX: J32.2 Chronic ethmoidal sinusitis (principal)
CPT/HCPCS: 70486

== ENCOUNTER → 2019-01-29 10:23 | Outpatient (CLI) | payer MEDICARE, OTHER, SELFPAY ==
[2019-01-24 10:12] VITALS: BMI 24.9
--- NOTE | 2019-01-29 10:27 | RAD_ITS ---
STUDY: X-RAY - LUMBAR SPINE REASON FOR EXAM: Female, 73 years old. Back pain TECHNIQUE: 3 view(s) of the lumbar spine were obtained. COMPARISON: X-Ray Lumbar Spine May 15, 2018 FINDINGS: There is fusion of L3-L5. Moderate to prominent disc space loss is present from L1 through L3 with associated osteophytosis. There is grade 1 retrolisthesis at the L2-L3 level. There is no evidence of fracture or dislocation in the lumbar spine. Soft tissues are unremarkable. RAD/Lumbar Spine 2 or 3 Views IMPRESSION: No fracture or dislocation in the lumbar spine. Degenerative and surgical changes described above. Electronically Signed: Rafy Stevenson, at 17:57 EDT Tel , Service support ,
== END ==
PROVIDERS: Family Provider Internal Medicine; PCP Internal Medicine; Referring Provider Nurse Practitioner Family; Visit Provider Nurse Practitioner Family
DX: M51.36 Other intervertebral disc degeneration, lumbar region (principal); G89.29 Other chronic pain
CPT/HCPCS: 72100

== ENCOUNTER → 2019-02-15 13:14 | Outpatient (CLI) | payer MEDICARE, OTHER, SELFPAY ==
[2019-01-24 10:12] VITALS: BMI 24.9
--- NOTE | 2019-02-15 13:30 | MRI_ITS ---
HISTORY: c/o pain radiating into R hip since having surgery 1.5 yrs ago EXAM/TECHNIQUE: MR Spine Lumbar W/O Contrast: 1.5 Radha. Multisequence, multiplanar. COMPARISON: 01/29/19 lumbar spine radiographs. 05/16/17 MRI lumbar spine. FINDINGS: # of images incl. paperwork: 119 No fracture or acute signal changes in the vertebrae, disks, or ligaments. 4 mm chronic degenerative anterolisthesis of L4 on L5 again demonstrated. Alignment otherwise anatomic. Status post posterior fusion with bilateral pedicle screws at L3, L4, and L5 and laminectomy at these levels. Status post discectomy at L3-4 and L4-5. Normal arborization of the cauda equina with no nerve root clumping. Paraspinal soft tissues with no concerning findings. Chronic postoperative changes posterior paraspinal soft tissues. Conus medullaris terminates at the level of the L1-2 disc with normal contour and signal. Thecal sac terminates at the level of S2-3. Marked disc degeneration from T11-L3 with disc space loss and endplate degenerative signal changes and irregularity. At L1-2 and L2-3, disc bulge and facet degeneration causes only mild narrowing of the spinal canal and bilateral foraminal with no evidence of nerve root impingement. At L3-4 and L4-5 the spinal canal is decompressed with laminectomy with no residual spinal canal or foraminal narrowing. At L5-S1 mild bilateral facet degeneration causes only mild narrowing. MRI/Spine Lumbar (Routine) IMPRESSION: No acute findings. No etiology for radiculopathy identified. Status post L3-4 and L4-5 posterior fusion, laminectomy and discectomy with no apparent complication. at 1444 Reported and signed by: Donte Ann MD Electronically Signed: Donte Ann, at 14:43 EDT Tel , Service support ,
== END ==
PROVIDERS: Family Provider Internal Medicine; PCP Internal Medicine; Referring Provider Anesthesiology Pain Medicine; Visit Provider Anesthesiology Pain Medicine
DX: M54.9 Dorsalgia, unspecified (principal); M79.606 Pain in leg, unspecified
CPT/HCPCS: 72148

== ENCOUNTER → 2019-05-28 10:25 | Outpatient (CLI) | payer MEDICARE, OTHER, SELFPAY ==
[2019-05-08 11:16] VITALS: BMI 24.9
[2019-05-28 12:37] LABS: Absolute Lymphocyte Count 1.41 X10^3/uL (0.83-4.51); Absolute Neutrophil Count 6.8 X10^3/uL (2.0-7.7); Basophil# 0.07 X10^3/uL; Basophil% 0.8 % (0-1); Eosinophil# 0.07 X10^3/uL; Eosinophils% 0.8 % (0-5); Hematocrit 40.8 % (37-47); Lymphocyte # 1.41 X10^3/ul (4.0); Lymphocyte % 15.4 % (19-41); Mean Corp Hgb Conc 31.9 g/dL (32-36); Mean Corpuscular Hgb 30.7 pg (27.0-32.0); Mean Corpuscular Volume 96.5 fL (81-99); Mean Platelet Vol. 9.5 fl (6.2-12.0); Monocyte# 0.77 X10^3/uL; Monocyte% 8.4 % (0-10); NRBC Flagged by Analyzer 0 % (0-5); Neutrophil # 6.81 X10^3/uL (2.7-7.7); Neutrophil % 74.3 % (47-70); Platelet Count 390 K/mm3 (150-450); RBC Distribution Width SD 49.8 fl (35.1-43.9); Red Blood Count 4.23 M/mm3 (4.2-5.4); White Blood Count 9.2 K/mm3 (4.4-11.0)
[2019-05-31 20:07] LABS: Aspirgillus flavus Negative (Neg:<1:1); Aspirgillus fumigatus Negative (Neg:<1:1); Aspirgillus niger Negative (Neg:<1:1); Immunoglobulin E 42 IU/mL (6-495)
[2019-05-31 22:50] LABS: Immunoglobulin G 775 mg/dL (700-1600)
[2019-06-01 03:06] LABS: Alternaria alternata <0.10 kU/L (Class 0); Bermuda Grass <0.10 kU/L (Class 0); Bluegrass, Kentucky <0.10 kU/L (Class 0); Cat Hair/Dander, Standard <0.10 kU/L (Class 0); D farinae Mite <0.10 kU/L (Class 0); D pteronyssinus <0.10 kU/L (Class 0); Dog Epithelia <0.10 kU/L (Class 0); Elm, American White <0.10 kU/L (Class 0); Oak, White <0.10 kU/L (Class 0); Plantain, English <0.10 kU/L (Class 0); Ragweed, Short/Common <0.10 kU/L (Class 0)
[2019-06-01 08:57] LABS: Mouse Urine <0.10 kU/L (Class 0)
== END ==
PROVIDERS: Family Provider Internal Medicine; PCP Internal Medicine; Referring Provider Nurse Practitioner Acute Care; Visit Provider Nurse Practitioner Acute Care
DX: J45.909 Unspecified asthma, uncomplicated (principal)
CPT/HCPCS: 36415; 82784; 82785; 85025; 86003; 86606

== ENCOUNTER → 2019-06-11 10:49 | Outpatient (CLI) | payer MEDICARE, OTHER, SELFPAY ==
[2019-03-01 14:53] VITALS: BMI 24.9
[2019-05-08 11:16] VITALS: BMI 24.9
--- NOTE | 2019-06-11 10:52 | BI_ITS ---
MAMMOGRAPHY - BILATERAL SCREENING REASON FOR EXAM: Female, 73 years old. Routine annual screening examination. PERTINENT HISTORY: Non-contributory. TECHNIQUE: Digital bilateral breast elsie (3D mammographic acquisition) in the CC and MLO projections. 2-D mediolateral oblique (MLO) and craniocaudad (CC) views of both breasts were obtained. CAD: Full Field Digital Mammography with Computer Added Detection was performed. COMPARISON: Comparison is made with prior study dated June 05, 2018 and December 23, 2016. FINDINGS: Breast Composition: There are scattered areas of fibroglandular density. There are no dominant masses or suspicious calcifications. No other significant abnormalities are identified. There has been no significant change since the prior study. BI/SCREEN MAMM (CAD) W/ELSIE BILAT IMPRESSION: Stable bilateral screening mammogram. Yearly follow-up mammogram recommended. (A) ASSESSMENT CATEGORY: BIRADS Category 1: Negative. A letter regarding these results will be sent to the patient by the facility within 30 days. Approximately 10% of breast cancers are not detected by mammography. A normal mammogram should not delay biopsy of a clinically suspicious abnormality. [id number] Electronically Signed: Cb Martino, at 13:32 EDT , Service support ,
[2019-09-20 12:04] VITALS: BMI 24.9
== END ==
PROVIDERS: Family Provider Internal Medicine; PCP Internal Medicine; Referring Provider Internal Medicine; Visit Provider Internal Medicine
DX: Z12.31 Encounter for screening mammogram for malignant neoplasm of breast (principal)
CPT/HCPCS: 77063; 77067

== ENCOUNTER 2019-08-20 15:00 | Outpatient (RCR) | payer MEDICARE, OTHER, SELFPAY ==
[2019-07-02 14:19] VITALS: BMI 24.9
--- NOTE | 2019-07-05 13:55 | HP.PTEVAL_ITS ---
Patient's Visit Information AD CROFT is a 74 year old F referred to Physical Therapy by Afia Santana DC with a diagnosis of Bursitis L hip. 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 2X/ week for 4 weeks for L Quad, pirifomris and safely ITband streching, L hip strengthening including hip abd and hip ext, functional strengthening, with HEP and modalities if needed with HEP and gym rountine. - Subjective Findings: Pt reports that she has had problems with her L ITband for the last [address] Quinn has seen her and has given an injection to the ITBand. She has seen Dr Santana and she feels PT will help the best. Her symptoms are pain over the lateral side of the L hip and pain at the insertion of the IT band. She tries to stretch and can not roll it out right now. She has tried the TENS unit and walking really flares it up. She had a fusion in her back and developed chronic pain syndrome in her back and hips and along her waist. Fusion was L3-L4 and L4-L5. She does not have pain in sitting unless she has her knee bent or if she twists her hip. The pain in her hip can act up at night but she tries to lay on her back. SHe has not been told how much arthritis is in her hips. She has no N&T. Stairs are a problems and putting weight through her leg esopecailly when flared up and has to take stairs one at a time. - Pain L hip pain Pain Intensity (Out of 10): 4 Pain Intensity Range: 4 Comment: walking into dept - Objective Gait: Walks with slight decrease stance time on the L. LE MMT: L hip flex 4- /5 and R 4-/5, L hip abd 3-/5 and R hip abd 4/5, L hip ext 3+/5 and R 4-/5, B knee flex and B knee ext 4/5. Pt is able to walk on heels and toes without any signs of weakness. Palpation: Tender over L greater trochanter and down L IT Band/L piriformis. Tight L piriformis, IT band, Quad compared to the R ( tight B but worse on the L). - Goals Goal 1:: I HEP Goal Time Frame: 4-6 Weeks Goal 2:: Increase L hip strength by 1/2 muscle grade (LE MMT: L hip flex 4-/5 and R 4-/5, L hip abd 3-/5 and R hip abd 4/5, L hip ext 3+/5 and R 4-/5, B knee flex and B knee ext 4/5). Goal Time Frame: 4-6 Weeks Goal 3:: Increase L Quad and Piriformis muscle length Goal Time Frame: 4-6 Weeks Goal 4:: Decrease L hip pain to 1/10 overall and not all the times Goal Time Frame: 4-6 Weeks - Rehabilitation Potential Rehabilitation Potential: Good - Anticipated Interventions Thank you for the opportunity to evaluate your patient. For Medicare and Medicare HMO plans, please review the plan of care and approve it. It will need to be FAXED BACK to us at [phone] for Medicare purposes. For Medicare only, by signing this I certify the plan of care. Please let me know if there are questions or concerns regarding this plan of care. Physician Signature: Date:
[2019-08-09 14:31] VITALS: BMI 24.9
--- NOTE | 2019-08-20 15:32 | HP.PTDCSUM ---
HP - PT D/C Summary It has been my pleasure to treat AD CROFT under orders from Afia Santana DC, for the diagnosis of Bursitis L hip for a total of 8 visit(s). Discharge Date: 08/20/19 Please see the following information for a summary of their discharge status. - Subjective Subjective: Pt reports that overall her L leg strength and IT band pain is better and the stretches and the US have really helped and the stretches and gym rountine is really helping. Pt reports that she stopped the bridges cause she started to have some back pain and have not done the inchworms due to back but not sure what is causing it. She is having a CT myleogram to inject with some pain. - Pain L hip pain Pain Intensity (Out of 10): 4 - Overall Improvement % Improvement: 90 - Objective Objective/Function: LE MMT: B hip flex 4/5, B knee ext 4+/5, B knee flex 4/5, R hip abd 4/5 and L 4-/5 - Goals Goal 1:: I HEP Goal Progress: Goal Met Goal 2:: Increase L hip strength by 1/2 muscle grade (LE MMT: L hip flex 4-/5 and R 4-/5, L hip abd 3-/5 and R hip abd 4/5, L hip ext 3+/5 and R 4-/5, B knee flex and B knee ext 4/5). Goal Progress: Goal Met Goal 3:: Increase L Quad and Piriformis muscle length Goal 4:: Decrease L hip pain to 1/10 overall and not all the times Goal Progress: Progressing - Plan Plan: DC PT to HEP - D/C Information Discharge Comments: DC PT If there are questions or concerns regarding this patient's physical therapy, please feel free to call me at [phone]. Thank you for the referral of this patient. Sincerely, Kadi Paulino, MPT
== END 2019-08-20 19:00 | disposition home or self-care (01) ==
LOC: PT 15:00
PROVIDERS: Family Provider Internal Medicine; PCP Internal Medicine; Referring Provider Chiropractor; Visit Provider Chiropractor
DX: M70.72 Other bursitis of hip, left hip (principal)
CPT/HCPCS: 97035; 97110; 97161; 97530

== ENCOUNTER → 2019-09-24 09:02 | Outpatient (CLI) | payer MEDICARE, OTHER, SELFPAY ==
[2019-09-20 12:04] VITALS: BMI 24.9
[2019-09-24 11:04] LABS: AST(SGOT) 16 U/L (15-37); Alanine Aminotransfer ALT/SGPT 22 U/L (13-56); Albumin, Serum 3.5 g/dL (3.2-5.0); Alkaline Phosphatase 63 U/L (45-117); Anion Gap 5 (5-15); BUN 7 mg/dL (7-18); BUN/Creat Ratio 9.7 RATIO (10-20); Calcium,Total 9.2 mg/dL (8.5-10.1); Chloride 104 mmol/L (98-107); Cholesterol 196 mg/dL (200); Creatinine, Serum 0.72 mg/dL (0.55-1.02); EST Glomerular Filtration Rate 84 mL/min (>60); Est Glom Filt Rate - Afr Amer 101 mL/min (>60); Globulin 3.6 g/dL (2.2-4.2); Glucose 80 mg/dL (74-106); High Density Lipoprotein 66 mg/dL; Potassium 3.9 mmol/L (3.5-5.1); Protein, Total 7.1 g/dL (6.4-8.2); Sodium Level 137 mmol/L (136-145); Thyroid Stim Hormone (TSH) 0.58 uIU/mL (0.358-3.74); Triglycerides 123 mg/dL; Very Low Density Lipoprotein 25 mg/dL (5-40)
== END ==
PROVIDERS: PCP Internal Medicine; Referring Provider Nurse Practitioner Family; Visit Provider Nurse Practitioner Family
DX: E03.9 Hypothyroidism, unspecified (principal); E78.5 Hyperlipidemia, unspecified
CPT/HCPCS: 36415; 80053; 80061; 84443

== ENCOUNTER → 2019-10-02 08:23 | Outpatient (CLI) | payer MEDICARE, OTHER, SELFPAY ==
[2019-09-20 12:04] VITALS: BMI 24.9
[2019-10-01 09:08] VITALS: BMI 24.9
--- NOTE | 2019-10-02 08:24 | US_ITS ---
STUDY: ULTRASOUND OF THE FEMALE PELVIS - COMPLETE REASON FOR EXAM: Female, 74 years old. Pelvic tenderness. TECHNIQUE: Transabdominal and Transvaginal TECHNICAL QUALITY: Adequate. COMPARISON: None. FINDINGS: The uterus is retroverted and is in a midline position. The uterus measures 6 x 4.7 x 3.4 cm. There is a Nabothian cyst of the cervix. The endometrium measures 4 mm in thickness, and is hypoechoic. There is no demonstrated endometrial mass. There is a 1 x 0.9 x 0.9 cm fibroid in the anterior lower uterine segment. I.U.D. - The patient does not have an I.U.D. The ovaries are not seen. There is no evidence of adnexal mass. There is markedly prominent vessels in both broad ligaments suggesting pelvic congestion. There is no fluid in the cul-de-sac. The urinary bladder appears grossly normal. Polycystic ovary disease: No. US/Transvaginal Non- IMPRESSION: 1. Fibroid uterus. 2. Prominent vascularity in both parotid ligaments. Question pelvic congestion. 3. Nonvisualization of the ovaries. Electronically Signed: Adarsh Snyder DO at 19:45 EST Tel [phone], Service support ,
--- NOTE | 2019-10-02 08:24 | US_ITS ---
STUDY: ULTRASOUND OF THE FEMALE PELVIS - COMPLETE REASON FOR EXAM: Female, 74 years old. Pelvic tenderness. TECHNIQUE: Transabdominal and Transvaginal TECHNICAL QUALITY: Adequate. COMPARISON: None. FINDINGS: The uterus is retroverted and is in a midline position. The uterus measures 6 x 4.7 x 3.4 cm. There is a Nabothian cyst of the cervix. The endometrium measures 4 mm in thickness, and is hypoechoic. There is no demonstrated endometrial mass. There is a 1 x 0.9 x 0.9 cm fibroid in the anterior lower uterine segment. I.U.D. - The patient does not have an I.U.D. The ovaries are not seen. There is no evidence of adnexal mass. There is markedly prominent vessels in both broad ligaments suggesting pelvic congestion. There is no fluid in the cul-de-sac. The urinary bladder appears grossly normal. Polycystic ovary disease: No. US/Pelvic (Non ) IMPRESSION: 1. Fibroid uterus. 2. Prominent vascularity in both parotid ligaments. Question pelvic congestion. 3. Nonvisualization of the ovaries. Electronically Signed: Adarsh Snyder DO at 19:45 EST Tel [phone], Service support ,
== END ==
PROVIDERS: PCP Internal Medicine; Referring Provider Nurse Practitioner Women's Health; Visit Provider Nurse Practitioner Women's Health
DX: R10.2 Pelvic and perineal pain (principal)
CPT/HCPCS: 76830; 76856

== ENCOUNTER → 2020-02-01 08:44 | Outpatient (CLI) | payer MEDICARE, OTHER, SELFPAY ==
[2020-01-23 13:54] VITALS: BMI 24.9
--- NOTE | 2020-02-01 08:58 | BI_ITS ---
MAMMOGRAPHY - UNILATERAL DIAGNOSTIC: LEFT BREAST REASON FOR EXAM: Female, 74 years old. 3 week history of pain in the upper outer quadrant of the left breast. PERTINENT HISTORY: Non-contributory. TECHNIQUE: Digital unilateral breast chiquita (3D mammographic acquisition) in the CC and MLO projections. 2-D mediolateral oblique (MLO) and craniocaudad (CC) views of both breasts were obtained. CAD: Full Field Digital Mammography with Computer Added Detection was performed. COMPARISON: Comparison is made with prior examination dated June 11, 2019 and June 05, 2018. FINDINGS: Breast Composition: There are scattered areas of fibroglandular density. There are no dominant masses or suspicious calcifications. Stable small left axillary lymph nodes. No other significant abnormalities are identified. There has been no significant change since the prior study. BI/DIAG MAMM W/CAD, UNILAT IMPRESSION: Stable unilateral diagnostic mammogram. With the patient''s history of left breast pain, correlation with ultrasound is recommended. ASSESSMENT CATEGORY: BIRADS Category 0: Incomplete. Need additional imaging evaluation. A letter regarding these results will be sent to the patient by the facility within 30 days. Approximately 10% of breast cancers are not detected by mammography. A normal mammogram should not delay biopsy of a clinically suspicious abnormality. Electronically Signed: Cb Martino, at 10:15 EDT , Service support ,
--- NOTE | 2020-02-01 08:58 | US_ITS ---
STUDY: ULTRASOUND BREAST - LEFT REASON FOR EXAM: Female, 74 years old. Pain in the left breast. TECHNIQUE: Axial and longitudinal images of the LEFT breast were performed with a high resolution ultrasound transducer. # OF IMAGES: 31 COMPARISON: Comparison is made with prior mammograms earlier today. FINDINGS: LEFT Breast: The upper outer quadrant of the left breast was examined by ultrasound. No sonographic abnormalities. US/Breast Limited Unilateral IMPRESSION: No sonographic abnormalities ASSESSMENT CATEGORY: BIRADS Category 1: Negative. A letter regarding these results will be sent to the patient by the facility within 30 days. Electronically Signed: Cb Martino, at 13:56 EDT , Service support ,
== END ==
PROVIDERS: PCP Internal Medicine; Referring Provider Nurse Practitioner Women's Health; Visit Provider Nurse Practitioner Women's Health
DX: N64.4 Mastodynia (principal)
CPT/HCPCS: 76642; 77061; 77065; G0279

== ENCOUNTER → 2020-02-14 08:48 | Outpatient (CLI) | payer MEDICARE, OTHER, SELFPAY ==
[2020-01-23 13:54] VITALS: BMI 24.9
--- NOTE | 2020-02-14 09:08 | RAD_ITS ---
STUDY: X-RAY - PELVIS AND RIGHT HIP REASON FOR EXAM: Female, 74 years old. RIGHT POSTERIOR HIP/ BUTTOCK PAIN -- HX OF BACK FUSION IN 2017 TECHNIQUE: 3 views of the pelvis and hip. COMPARISON: None. FINDINGS: There is a non-specific bowel gas pattern. Normal visualized soft tissue structures. There is narrowing with cortical sclerosis and osteophyte formation of the sacroiliac joint consistent with degenerative osteoarthritic changes. Normal bilateral superior and inferior pubic rami. Normal pubic symphysis. Normal bilateral ischial tuberosities. Normal visualized femoral head. Normal acetabulum. There is moderate articular joint space narrowing of the hip. Similar arthritic changes noted in the left hip joint. RAD/HIP, UNI W/ Pelvis 2-3 Views IMPRESSION: Age consistent hip and SI joint arthrosis, no demonstrated fracture or suspicious osseous lesion Electronically Signed: Ethan Interiano MD at 9:24 EDT , Service support ,
== END ==
PROVIDERS: PCP Internal Medicine
DX: M16.11 Unilateral primary osteoarthritis, right hip (principal)
CPT/HCPCS: 73502

== ENCOUNTER → 2020-03-03 09:57 | Outpatient (CLI) | payer MEDICARE, OTHER, SELFPAY ==
[2020-01-23 13:54] VITALS: BMI 24.9
[2020-03-03 13:01] LABS: AST(SGOT) 17 U/L (15-37); Alanine Aminotransfer ALT/SGPT 23 U/L (13-56); Albumin, Serum 3.7 g/dL (3.2-5.0); Alkaline Phosphatase 65 U/L (45-117); Anion Gap 6 (5-15); BUN 12 mg/dL (7-18); BUN/Creat Ratio 19.7 RATIO (10-20); Calcium,Total 8.7 mg/dL (8.5-10.1); Chloride 103 mmol/L (98-107); Cholesterol 198 mg/dL (200); Creatinine, Serum 0.61 mg/dL (0.55-1.02); EST Glomerular Filtration Rate 102 mL/min (>60); Est Glom Filt Rate - Afr Amer 123 mL/min (>60); Globulin 3.8 g/dL (2.2-4.2); Glucose 89 mg/dL (74-106); High Density Lipoprotein 84 mg/dL; Potassium 4.2 mmol/L (3.5-5.1); Protein, Total 7.5 g/dL (6.4-8.2); Sodium Level 136 mmol/L (136-145); Triglycerides 72 mg/dL; Very Low Density Lipoprotein 14 mg/dL (5-40)
== END ==
PROVIDERS: PCP Internal Medicine; Referring Provider Internal Medicine; Visit Provider Internal Medicine
DX: E78.5 Hyperlipidemia, unspecified (principal)
CPT/HCPCS: 36415; 80053; 80061

== ENCOUNTER → 2020-03-04 10:33 | Outpatient (CLI) | payer MEDICARE, OTHER, SELFPAY ==
[2020-03-04 09:54] VITALS: BMI 24.9
--- NOTE | 2020-03-04 10:34 | RAD_ITS ---
STUDY: X-RAY - LEFT KNEE REASON FOR EXAM: Knee pain. TECHNIQUE: 4 view(s) of the knee. COMPARISON: Radiographs 01/05/2018. FINDINGS: Normal visualized distal femur. Normal visualized proximal tibia and fibula. Normal proximal tibiofibular articulation. Normal medial femorotibial compartment. Normal lateral femorotibial compartment. There is mild joint space narrowing of the patellofemoral articulation. There is an enthesophyte at the superior pole of the patella. RAD/Knee 4 or More Views IMPRESSION: Mild patellofemoral arthrosis. Patellar enthesophyte. Electronically Signed: Albin Herrera MD at 14:14 EDT Tel , Service support ,
== END ==
PROVIDERS: PCP Internal Medicine; Referring Provider Orthopaedic Surgery; Visit Provider Orthopaedic Surgery
DX: M17.12 Unilateral primary osteoarthritis, left knee (principal)
CPT/HCPCS: 73564

== ENCOUNTER → 2020-03-13 16:01 | Outpatient (CLI) | payer MEDICARE, OTHER, SELFPAY ==
[2020-03-04 09:54] VITALS: BMI 24.9
--- NOTE | 2020-03-13 16:02 | MRI_ITS ---
STUDY: MRI LEFT KNEE REASON FOR EXAM: Lateral knee pain for 3 months. TECHNIQUE: Standardized fat and water weighted pulse sequences were obtained in all 3 orthogonal planes. COMPARISON: Radiographs 03/04/2020 and MRI images 04/06/2013. FINDINGS: There is a horizontal tear of the inferior articular surface of the posterior horn of the medial meniscus (proton-density sagittal images 8-10; proton density coronal image 14). Normal hyaline cartilage of the medial femorotibial compartment. There is a small cyst in the posterior nonweightbearing medial femoral condyle. Normal medial collateral ligamentous complex (MCL). Normal distal semimembranosus, gracilis and semitendinosus tendons. There is mild intrasubstance myxoid degeneration of the posterior horn of the lateral meniscus as on the prior study without a surfacing lateral meniscal tear. Normal hyaline cartilage of the lateral femorotibial compartment. Normal lateral femoral condyle and tibial plateau. Normal proximal tibiofibular articulation. Normal lateral collateral (fibular) ligament. Normal popliteus tendon. Normal biceps femoris tendon. There is edema deep to the iliotibial band (T2 coronal image 18). Normal anterior cruciate ligament (ACL). Normal posterior cruciate ligament (PCL). Normal congruent patellofemoral articulation. There is arthrosis of the patellofemoral compartment with partial-thickness chondral loss (T2 sagittal images 11, 14) with a small subchondral cyst of the lateral femoral trochlea. Normal medial and lateral patellar retinaculum. Normal visualized quadriceps tendon. Normal patellar tendon. Normal Hoffa''s fat pad. There is a very small joint effusion. There is a small popliteal cyst (T2 sagittal images 4-8). There is mild edema in the anterior and lateral subcutis adipose space. The otherwise visualized osseous structures are unremarkable. MRI/Lower Ext Joint Only (Routine) IMPRESSION: Medial meniscal tear. Patellofemoral arthrosis. Edema deep to the iliotibial band suggestive of iliotibial band friction syndrome. Very small joint effusion. Small popliteal cyst. No demonstrated lateral meniscal tear. Electronically Signed: Albin Herrera MD at 9:12 EDT Tel , Service support ,
== END ==
PROVIDERS: PCP Internal Medicine; Referring Provider Orthopaedic Surgery; Visit Provider Orthopaedic Surgery
DX: M23.92 Unspecified internal derangement of left knee (principal)
CPT/HCPCS: 73721

== ENCOUNTER → 2020-06-12 13:44 | Outpatient (CLI) | payer MEDICARE, OTHER, SELFPAY ==
[2020-03-27 10:19] VITALS: BMI 24.9
[2020-06-13 07:18] LABS: SARS-COV-2 TOTAL ABS Reactive (Nonreactive)
== END ==
PROVIDERS: PCP Internal Medicine; Referring Provider Nurse Practitioner Acute Care; Visit Provider Nurse Practitioner Acute Care
DX: R05 Cough (principal)
CPT/HCPCS: 36415; 86769

== ENCOUNTER → 2020-08-21 09:22 | Outpatient (CLI) | payer MEDICARE, OTHER, SELFPAY ==
[2020-08-11 09:56] VITALS: BMI 24.3
[2020-08-21 12:39] LABS: ALB/GLOB Ratio 1.1 RATIO (0.9-2.4); AST(SGOT) 13 U/L (15-37); Alanine Aminotransfer ALT/SGPT 21 U/L (13-56); Albumin, Serum 3.6 g/dL (3.2-5.0); Alkaline Phosphatase 59 U/L (45-117); Anion Gap 5 (5-15); BUN 12 mg/dL (7-18); BUN/Creat Ratio 15.6 RATIO (10-20); Calcium,Total 8.8 mg/dL (8.5-10.1); Chloride 101 mmol/L (98-107); Creatinine, Serum 0.77 mg/dL (0.55-1.02); EST Glomerular Filtration Rate 78 mL/min (>60); Est Glom Filt Rate - Afr Amer 94 mL/min (>60); Globulin 3.3 g/dL (2.2-4.2); Glucose 85 mg/dL (74-106); Potassium 4.1 mmol/L (3.5-5.1); Protein, Total 6.9 g/dL (6.4-8.2); Sodium Level 134 mmol/L (136-145)
== END ==
PROVIDERS: PCP Internal Medicine; Referring Provider Internal Medicine; Visit Provider Internal Medicine
DX: I10 Essential (primary) hypertension (principal); E78.5 Hyperlipidemia, unspecified; E03.9 Hypothyroidism, unspecified
CPT/HCPCS: 36415; 80053; 84443

== ENCOUNTER → 2020-09-08 10:01 | Outpatient (CLI) | payer MEDICARE, OTHER, SELFPAY ==
[2020-08-26 08:25] VITALS: BMI 24.0
--- NOTE | 2020-09-08 10:02 | BI_ITS ---
MAMMOGRAPHY - BILATERAL SCREENING REASON FOR EXAM: Female, 75 years old. Routine annual screening examination. PERTINENT HISTORY: Non-contributory. TECHNIQUE: Digital bilateral breast elsie (3D mammographic acquisition) in the CC and MLO projections. 2-D mediolateral oblique (MLO) and craniocaudad (CC) views of both breasts were obtained. CAD: Full Field Digital Mammography with Computer Added Detection was performed. COMPARISON: Comparison is made with prior study dated 06/11/2019 and 06/05/2018. FINDINGS: Breast Composition: There are scattered areas of fibroglandular density. There are no dominant masses or suspicious calcifications. No other significant abnormalities are identified. There has been no significant change since the prior study. BI/SCRN MAMM (CAD)W/ELSIE BILAT IMPRESSION: Stable bilateral screening mammogram. Yearly follow-up mammogram recommended. (A) ASSESSMENT CATEGORY: BIRADS Category 1: Negative. A letter regarding these results will be sent to the patient by the facility within 30 days. Approximately 10% of breast cancers are not detected by mammography. A normal mammogram should not delay biopsy of a clinically suspicious abnormality. [id number] Electronically Signed: Cb Martino MD at 12:24 EST , Service support ,
== END ==
PROVIDERS: PCP Internal Medicine; Referring Provider Internal Medicine; Visit Provider Internal Medicine
DX: Z12.31 Encounter for screening mammogram for malignant neoplasm of breast (principal)
CPT/HCPCS: 77063; 77067

== ENCOUNTER → 2020-10-01 09:25 | Outpatient (CLI) | payer MEDICARE, OTHER, SELFPAY ==
[2020-09-22 08:59] VITALS: BMI 23.8
--- NOTE | 2020-10-01 09:29 | BD_ITS ---
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 COMPARISON: Comparison is made with prior examination dated 05/02/2018. FINDINGS: Lumbar Spine (L1-L4): g/cm2 (1.148) / T-score (-0.1) / Z-score (1.6) Findings are suggestive of normal bone density with a low fracture risk. Left Femur Total: g/cm2 (0.793) / T-score (-1.7) / Z-score (0.1) Left Femoral Neck: g/cm2 (0.744) / T-score (-2.1) / Z-score (-0.1) Right Femur Total: g/cm2 (0.815) / T-score (-1.5) / Z-score (0.3) Right Femoral Neck: g/cm2 (0.785) / T-score (-1.8) / Z-score (0.2) The T-Scores on the most recent prior examination were: Lumbar Spine (L1-L4): There has been improvement of bone density since the previous examination. Left Femur Total: which represents an improvement of 0.3%. Right Femur Total: which represents an improvement of 1.4%. BD/Dexa Bone Density Study IMPRESSION: The patient is considered osteopenic as outlined below according to World Aravind Organization (WHO) criteria with a moderate fracture risk. There has been improvement of bone density since the previous examination. Reference Information: The T-score is the number of standard deviations above or below the standard which is normal for young adults at their peak bone mineral density. The World Health Organization (WHO) interprets the T-scores as follows: Above -1 Normal bone density Between -1 and -2.5 Osteopenia Equal to / or below -2.5 Osteoporosis As a practical clinical guideline, osteopenia may be graded as follows: Mild -1 through -1.5 Moderate -1.6 through -2.0 Severe -2.1 through -2.4 The Z-score is the number of standard deviations above or below age-matched controls. A Z-score of less than -1.5 would be considered abnormal. References: 1. NIH Osteoporosis and Related Bone Diseases www osteo.org 2. International Society for Clinical Densitometry www iscd.org 3. National Osteoporosis Foundation www nof.org Electronically Signed: Cb Martino MD at 13:14 EST , Service support ,
== END ==
PROVIDERS: PCP Internal Medicine; Referring Provider Nurse Practitioner Women's Health; Visit Provider Nurse Practitioner Women's Health
DX: Z78.0 Asymptomatic menopausal state (principal)
CPT/HCPCS: 77080

== ENCOUNTER → 2020-12-03 09:45 | Outpatient (CLI) | payer MEDICARE, OTHER, SELFPAY ==
[2020-12-03 09:07] VITALS: BMI 23.8
[2020-12-03 13:13] LABS: Anion Gap 5 (5-15); BUN 8 mg/dL (7-18); BUN/Creat Ratio 14.3 RATIO (10-20); Calcium,Total 9.4 mg/dL (8.5-10.1); Chloride 99 mmol/L (98-107); Cholesterol 171 mg/dL (200); Creatinine, Serum 0.56 mg/dL (0.55-1.02); EST Glomerular Filtration Rate 112 mL/min (>60); Est Glom Filt Rate - Afr Amer 136 mL/min (>60); Glucose 76 mg/dL (74-106); High Density Lipoprotein 79 mg/dL; Potassium 4.5 mmol/L (3.5-5.1); Sodium Level 133 mmol/L (136-145); Triglycerides 65 mg/dL; Very Low Density Lipoprotein 13 mg/dL (5-40)
== END ==
PROVIDERS: PCP Internal Medicine; Referring Provider Internal Medicine; Visit Provider Internal Medicine
DX: I10 Essential (primary) hypertension (principal); E78.5 Hyperlipidemia, unspecified
CPT/HCPCS: 36415; 80048; 80061

== ENCOUNTER → 2020-12-23 08:56 | Outpatient (CLI) | payer MEDICARE, OTHER, SELFPAY ==
[2020-12-05 08:16] VITALS: BMI 23.6
--- NOTE | 2020-12-23 08:58 | ART_ITS ---
Reason For Study: Lower extremity rest pain Procedure A bilateral lower extremity continuous wave Doppler with analog waveform analysis and ankle brachial indexes. Left Segmental Pressures Left brachial= 126mmHg. Left posterior tibial artery = 145mmHg. Left dorsalis pedis artery = 146mmHg. Left digit = 119 mmHg. The left dorsalis pedis waveforms are triphasic. The left posterior tibial artery waveforms are triphasic. Right Segmental Pressures Right brachial= 130mmHg. Right posterior tibial artery = 151mmHg. Right dorsalis pedis artery = 152mmHg. Right digit = 91 mmHg. The right dorsalis pedis waveforms are triphasic. The right posterior tibial artery waveforms are triphasic. Indices The right ankle brachial index by the dorsalis pedis is 1.17. The right ankle brachial index by the posterior tibial artery is 1.16. The right digital-brachial index is 0.70. The left ankle brachial index by the dorsalis pedis is 1.12. The left ankle brachial index by the posterior tibial artery is 1.12. The left digital-brachial index is 0.92. VL/Ankle Brachial Index Interpretation Summary Normal bilateral lower extremity resting PT and DP ankle-brachial indices with triphasic Doppler waveforms Normal bilateral digital brachial indices Ordering Physician: Carmina Grissom Referring Physician: Carmina Grissom Performed By: Yolie Broderick RVT
== END ==
PROVIDERS: PCP Internal Medicine; Referring Provider Internal Medicine; Visit Provider Internal Medicine
DX: I73.9 Peripheral vascular disease, unspecified (principal)
CPT/HCPCS: 93922

== ENCOUNTER 2021-02-12 09:30 | Outpatient (RCR) | payer MEDICARE, OTHER, SELFPAY ==
[2021-01-07 10:29] VITALS: BMI 23.0
--- NOTE | 2021-02-12 09:58 | HP.PTDCSUM ---
It has been my pleasure to treat AD CROFT referred by Dr. Katalina Gamez DO, with the diagnosis of Left ITband for a total of 9 visit(s). Discharge Date: Please see the following information for a summary of their discharge status. Subjective: The hip is better the knee is a little sore. She feels the stretching and massage have helped. The back is kicked up so she is having another injection in her back. She continues to walk every day. L IT band Pain Intensity (Out of 10): 0 % Improvement: 75 Objective/Function: Posture: good in sitting with a back on the chair. Gait: no deviation noted. Stairs: asc/desc 8 recip with fair control. HR/TR: able with UE A. SLS: left: 5 sec right: 15 sec. Palpation: tender along ITBand from knee to greater troch and into the gluts- no pain in lumbar parapsinals. Sensation: WFL. ROM: WFL in all planes of the Lumber and LE. Strength: Core: fair minus, Left Hip: 4-/5 Knee: 4+/5, Ankle: 4+/5, Right: Hip: 4+/5, Knee: 4+/5, Ankle: 4+/5. Flex: HS: moderate, Gastroc: moderate, ITBand: moderate. Special Test: Slump: positive, Dural signs: positive, Pelvic Alignment: positive Goal 1:: Patient will be I with HEP and progression Goal Progress: Goal Met Goal 2:: Patient will maintain proper posture t/o tx session Goal Progress: Goal Met Goal 3:: Patient will demo 10 sec SLS on the left LE Goal Progress: Progressing Goal 4:: Patient will demo 4+/5 strength in LE where deficit Goal Progress: Progressing Plan: 02/12/2021: Discharge to I HEP- given stretching of hip extension sidelying, hamstring and piriformis. Focus on LE and core strength/stabilization. HEP Given IE: TA contraction, hip add, hip abd, SLR If there are questions or concerns regarding this patient's physical therapy, please feel free to call me at [phone]. Thank you for the referral of this patient. Sincerely, Winnie Berry DPT
== END 2021-02-12 19:00 | disposition home or self-care (01) ==
LOC: PT 09:30
PROVIDERS: PCP Internal Medicine; Referring Provider Orthopaedic Surgery; Visit Provider Orthopaedic Surgery
DX: M76.32 Iliotibial band syndrome, left leg (principal); M25.562 Pain in left knee; M70.62 Trochanteric bursitis, left hip; Y93.9 Activity, unspecified
CPT/HCPCS: 97110; 97162; 97164

== ENCOUNTER → 2021-03-27 08:23 | Outpatient (CLI) | payer MEDICARE, OTHER, SELFPAY ==
[2021-03-25 16:20] VITALS: BMI 23.6
[2021-03-27 10:20] LABS: Absolute Lymphocyte Count 1.56 X10^3/uL (0.83-4.51); Absolute Neutrophil Count 6.5 X10^3/uL (2.0-7.7); Basophil# 0.04 X10^3/uL; Basophil% 0.5 % (0-1); Eosinophil# 0.07 X10^3/uL; Eosinophils% 0.8 % (0-5); Hemoglobin 13.2 g/dL (12.0-15.0); Lymphocyte # 1.56 X10^3/ul (0.83-4.51); Lymphocyte % 17.6 % (19-41); Mean Corp Hgb Conc 32.2 g/dL (32-36); Mean Corpuscular Hgb 30.5 pg (27.0-32.0); Mean Corpuscular Volume 94.7 fL (81-99); Monocyte# 0.68 X10^3/uL; Monocyte% 7.7 % (0-10); NRBC Flagged by Analyzer 0 % (0-5); Neutrophil % 73.1 % (47-70); Platelet Count 432 K/mm3 (150-450); RBC Distribution Width CV 14.2 % (11.6-14.6); RBC Distribution Width SD 49.6 fl (35.1-43.9); Red Blood Count 4.33 M/mm3 (4.2-5.4); White Blood Count 8.9 K/mm3 (4.4-11.0)
[2021-03-27 10:47] LABS: ALB/GLOB Ratio 1.2 RATIO (0.9-2.4); AST(SGOT) 20 U/L (15-37); Alanine Aminotransfer ALT/SGPT 28 U/L (13-56); Albumin, Serum 3.7 g/dL (3.2-5.0); Alkaline Phosphatase 61 U/L (45-117); Anion Gap 5 (5-15); BUN 14 mg/dL (7-18); BUN/Creat Ratio 25.2 RATIO (10-20); Calcium,Total 8.7 mg/dL (8.5-10.1); Chloride 98 mmol/L (98-107); Creatinine, Serum 0.56 mg/dL (0.55-1.02); EST Glomerular Filtration Rate 113 mL/min (>60); Est Glom Filt Rate - Afr Amer 137 mL/min (>60); Globulin 3.2 g/dL (2.2-4.2); Glucose 83 mg/dL (74-106); Magnesium 2.1 mg/dL (1.6-2.6); Potassium 4.1 mmol/L (3.5-5.1); Protein, Total 6.9 g/dL (6.4-8.2); Sodium Level 132 mmol/L (136-145)
== END ==
PROVIDERS: PCP Internal Medicine; Referring Provider Internal Medicine; Visit Provider Internal Medicine
DX: M50.30 Other cervical disc degeneration, unspecified cervical region (principal); R25.2 Cramp and spasm
CPT/HCPCS: 36415; 80053; 83735; 85025

== ENCOUNTER → 2021-07-21 08:58 | Outpatient (CLI) | payer MEDICARE, OTHER, SELFPAY ==
[2021-07-21 12:29] LABS: Anion Gap 8 (5-15); BUN 14 mg/dL (7-18); BUN/Creat Ratio 20.6 RATIO (10-20); Calcium,Total 9.4 mg/dL (8.5-10.1); Chloride 100 mmol/L (98-107); Creatinine, Serum 0.68 mg/dL (0.55-1.02); EST Glomerular Filtration Rate 89 mL/min (>60); Est Glom Filt Rate - Afr Amer 108 mL/min (>60); Glucose 91 mg/dL (74-106); Potassium 4.3 mmol/L (3.5-5.1); Sodium Level 134 mmol/L (136-145)
== END ==
PROVIDERS: PCP Internal Medicine; Referring Provider Internal Medicine; Visit Provider Internal Medicine
DX: I10 Essential (primary) hypertension (principal)
CPT/HCPCS: 36415; 80048

== ENCOUNTER 2021-10-16 14:34 | Outpatient (CLI) | payer MEDICARE, OTHER, SELFPAY ==
--- NOTE | 2021-10-16 15:00 | BI_ITS ---
MAMMOGRAPHY - BILATERAL SCREENING REASON FOR EXAM: Female, 76 years old. Routine annual screening examination. PERTINENT HISTORY: Non-contributory. TECHNIQUE: Digital bilateral breast elsie (3D mammographic acquisition) in the CC and MLO projections. 2-D mediolateral oblique (MLO) and craniocaudad (CC) views of both breasts were obtained. CAD: Full Field Digital Mammography with Computer Added Detection was performed. COMPARISON: Comparison is made with prior study dated 09/08/2020 and -09/11/2018. FINDINGS: Breast Composition: There are scattered areas of fibroglandular density. There are no dominant masses or suspicious calcifications. No other significant abnormalities are identified. There has been no significant change since the prior study. BI/SCRN MAMM (CAD)W/ELSIE BILAT IMPRESSION: Stable bilateral screening mammogram. Yearly follow-up mammogram recommended. (A) ASSESSMENT CATEGORY: BIRADS Category 2: Benign. A letter regarding these results will be sent to the patient by the facility within 30 days. Approximately 10% of breast cancers are not detected by mammography. A normal mammogram should not delay biopsy of a clinically suspicious abnormality. [id number] Electronically Signed: Cb Martino MD at 15:31 EST ,
== END 2021-10-16 23:59 | disposition home or self-care (01) ==
LOC: OPBI 14:59
PROVIDERS: PCP Internal Medicine; Referring Provider Internal Medicine; Visit Provider Internal Medicine
DX: Z12.31 Encounter for screening mammogram for malignant neoplasm of breast (principal)
CPT/HCPCS: 77063; 77067

== ENCOUNTER 2021-10-19 09:28 | Outpatient (CLI) | payer MEDICARE, OTHER, SELFPAY ==
[2021-10-19 12:08] LABS: Absolute Lymphocyte Count 0.88 X10^3/uL (0.83-4.51); Absolute Neutrophil Count 6.7 X10^3/uL (2.0-7.7); Basophil# 0.03 X10^3/uL; Basophil% 0.4 % (0-1); Eosinophil# 0.04 X10^3/uL; Eosinophils% 0.5 % (0-5); Hematocrit 37.7 % (37-47); Hemoglobin 12.5 g/dL (12.0-15.0); Lymphocyte # 0.88 X10^3/ul (0.83-4.51); Lymphocyte % 10.6 % (19-41); Mean Corp Hgb Conc 33.2 g/dL (32-36); Mean Corpuscular Hgb 31.5 pg (27.0-32.0); Mean Platelet Vol. 9.9 fl (6.2-12.0); Monocyte# 0.61 X10^3/uL; Monocyte% 7.3 % (0-10); NRBC Flagged by Analyzer 0 % (0-5); Neutrophil # 6.73 X10^3/uL (2.7-7.7); Neutrophil % 80.8 % (47-70); Platelet Count 340 K/mm3 (150-450); RBC Distribution Width CV 13.4 % (11.6-14.6); RBC Distribution Width SD 47.2 fl (35.1-43.9); Red Blood Count 3.97 M/mm3 (4.2-5.4); White Blood Count 8.3 K/mm3 (4.4-11.0)
[2021-10-19 12:36] LABS: ALB/GLOB Ratio 0.9 RATIO (0.9-2.4); AST(SGOT) 13 U/L (15-37); Alanine Aminotransfer ALT/SGPT 18 U/L (13-56); Albumin, Serum 3.4 g/dL (3.2-5.0); Alkaline Phosphatase 50 U/L (45-117); Anion Gap 6 (5-15); BUN 14 mg/dL (7-18); BUN/Creat Ratio 23.6 RATIO (10-20); Calcium,Total 8.5 mg/dL (8.5-10.1); Chloride 102 mmol/L (98-107); Creatinine, Serum 0.59 mg/dL (0.55-1.02); EST Glomerular Filtration Rate 104 mL/min (>60); Est Glom Filt Rate - Afr Amer 126 mL/min (>60); Globulin 3.6 g/dL (2.2-4.2); Glucose 90 mg/dL (74-106); Potassium 3.9 mmol/L (3.5-5.1); Sodium Level 133 mmol/L (136-145); Thyroid Stim Hormone (TSH) 0.29 uIU/mL (0.358-3.74)
== END 2021-10-19 23:59 | disposition home or self-care (01) ==
LOC: BIMLAB 09:29
PROVIDERS: PCP Internal Medicine; Visit Provider Internal Medicine
DX: I10 Essential (primary) hypertension (principal); E03.9 Hypothyroidism, unspecified
CPT/HCPCS: 36415; 80053; 84443; 85025

== ENCOUNTER 2022-06-24 07:30 | Outpatient (RCR) | payer MEDICARE, OTHER, SELFPAY ==
--- NOTE | 2022-06-16 16:09 | HP.OTEVAL_ITS ---
Patient's Visit Information AD CROFT is a 76 year old F, referred to Occupational Therapy by Dr. Albin Balderrama DO, with a diagnosis of DeQuervain's Tenosynovitis right. Date of Evaluation: 06/16/22 Occupational Therapist: Adele Franklin, OTSiva/Lore, CHT - Subjective This 76 year old female was seen for OT eval with dx of right DeQuervain's Tenosynovitis- pt states she has had two cortisone injections- and was wearing a splint but this did not seam to help so pt to the splint off- pt is right handed- pt states symptoms initially started in 2021- had one cortisone inject in November with good results until late Mar. Pt did have another injection Apr.28- pt states it is about 40% better since injection and it is not going away. Pt would like to see what she can do to have pain resolve. 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 left UD 30* RD 20* - Strength Optimization Consultant: right 25# left 40# Lateral Pinch: right unable painful left 6# Tripod Pinch: right 4# left 4# - Sensation Sensation Comments: denies - Quick DASH-Disab of Arm,Shoulder& Hand Quick DASH Score: 29.5450 - Goals Goal:: PT will demo an increase in warp clamper strength by 20# to increase independent with basic occupations of daily living to return pt to PLOF by D/C. Pt will demo an increase in lateral and tripod pinch by 2# to increase pts independent with opening baggies, containers at PLOF by D/C. Goal:: Pt will report pain no greater than 1/10 with use of affected hand with BADLs and IADLs by d/c. Goal:: Pt will demo understanding of joint protection and ergonomics when performing BADLs and IADLs by d/c. Pt will demo understanding of adaptive Equipment use to decrease stress on joints to allow pt to perform BADSL and IADLS at ALYSIA level. - Rehabilitation General Assessment: This 76 year old female demo tenosynovitis along with painful palpation at right CMCJ, along with weakness pain limiting factor with warp clamper and pinch- pt would benefit from skilled OT services 2-3 visits to ensure pts understanding of wrist ergonomics, joint protection and along with supportive bracing to decrease pain with daily tasks of writing- cooking- knitting. Today therapist ed. pt on wrist ergonomics to avoid stress to 1st dorsal region- followed with ed. on joint protection- pt was given handouts and demo understanding and agree to POC. Rehabilitation Potential: Good - Anticipated Interventions Strengthening, Modalities, Orthoses, Joint Protection/Energy Conservation, Education re assistive Equipment, Education re Diagnosis, Home Program, Other Other Interventions: Thumb care - Visit Plan Frequency: 1-2x /Week Duration: 3 Weeks General Plan: pt to bring brace in to ensure fit. ed. on joint protection leon. ed. pt on wrist ergo. to avoid stress on 1st dorsal region. isometric. eccentric. PRE TEXT: Thank you for the opportunity to evaluate your patient. For Medicare and Medicare HMO plans, please review the plan of care and approve it. It will need to be FAXED BACK to us at [phone] for Medicare purposes. Please let me know if there are questions or concerns regarding this plan of care. Physician Signature: Date:
--- NOTE | 2022-09-09 13:45 | HP.OT.NRP ---
AD CROFT was seen in my office for initial evaluation on 06/16/22. The following Plan of Care was established for this patient: Initial Frequency: 1-2x /Week Initial Duration: 3 Weeks Anticipated Interventions: Strengthening, Modalities, Orthoses, Joint Protection/Energy Conservation, Education re assistive Equipment, Education re Diagnosis, Home Program, Other Other Interventions: Thumb care This patient was last seen in our office 06/24/22. Pertinent comments regarding their Occupational therapy will appear below: pt was seen for 2 OT sessions and last seen on 06/24/22. Pt has not scheduled further apts and due to time lapse in services pt d/c. At this point I will be discontinuing this patient from occupational therapy. I would be happy to see this patient again in the future if found appropriate by the physician. Thank you! Adele Franklin, OTR/L, CHT
== END 2022-06-24 19:00 | disposition home or self-care (01) ==
LOC: OT 07:30
PROVIDERS: PCP Registered Nurse; Referring Provider Family Medicine; Visit Provider Family Medicine
DX: M65.4 Radial styloid tenosynovitis [de Quervain] (principal)
CPT/HCPCS: 97166; 97530

== ENCOUNTER → 2022-12-01 | Outpatient (CLI) | payer MEDICARE, OTHER, SELFPAY ==
--- NOTE | 2022-12-01 08:31 | BI_ITS ---
MAMMOGRAPHY - BILATERAL SCREENING 3-D TOMOSYNTHESIS REASON FOR EXAM: Female, 77 years old. Routine screening PERTINENT HISTORY: No significant family history. TECHNIQUE: 2-D mammograms and 3-D Tomosynthesis of the breast (s) were performed. CAD was performed. COMPARISON: 09/08/2020 FINDINGS: The breast composition is composed of scattered fibroglandular density. Scattered benign calcifications are seen. No dense spiculated masses or suspicious microcalcifications are identified. No architectural distortion is identified. There is no skin thickening or retraction. There has been no significant change since the prior study. BI/SCRN MAMM (CAD)W/ELSIE BILAT IMPRESSION: No mammographic signs of malignancy. Routine yearly mammograms recommended. ASSESSMENT CATEGORY: BIRADS Category 1: Negative. A letter regarding these results will be sent to the patient by the facility within 30 days. FOLLOW UP RECOMMENDATION: Yearly follow up mammogram recommended. (A) Approximately 10% of breast cancers are not detected by mammography. A normal mammogram should not delay biopsy of a clinically suspicious abnormality. Electronically Signed: Ethan Interiano MD at 8:58 EDT ,
== END | disposition home or self-care (01) ==
LOC: OPBI 08:29
PROVIDERS: PCP Registered Nurse; Referring Provider Registered Nurse; Visit Provider Registered Nurse
DX: Z12.31 Encounter for screening mammogram for malignant neoplasm of breast (principal)
CPT/HCPCS: 77063; 77067

== ENCOUNTER 2023-06-16 09:38 | Inpatient (IN) | payer MEDICARE, OTHER, SELFPAY ==
[2023-06-16] VITALS (14 sets, daily range): BP systolic 102–127; BP diastolic 52–74; PULSE 71–102; RESP 14–20; TEMP 36.4–37.2; O2SAT 83–98; BMI 25.3
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
--- NOTE | 2023-06-16 10:02 | CT_ITS ---
STUDY: CT BRAIN WITHOUT CONTRAST REASON FOR EXAM: Female, 77 years old. Headache. UTI. Fever and weakness. RADIATION DOSAGE (If Supplied By Facility): CTDIvol = ( 44.99 ) mGy, DLP = ( 829.85 ) mGycm TECHNIQUE: Transaxial CT imaging of the brain was performed without administration of intravenous contrast material. Individualized dose optimization techniques were used for this CT. COMPARISON: No relevant priors. FINDINGS: Normal soft tissue structures. Normal calvarium. There is mild cerebral atrophy with widening of the extra-axial spaces and ventricular dilatation. There are areas of decreased attenuation within the white matter tracts of the supratentorial brain, consistent with microvascular disease changes. Normal basal ganglia and thalami. Normal brainstem. Normal cerebellum. There is no intracranial hemorrhage. There are no findings of an acute ischemic infarction. Atherosclerotic plaque formation of the cavernous portions of the internal carotid arteries bilaterally. Normal visualized paranasal sinuses. CT/Brain/Head without Contrast IMPRESSION: Chronic involutional changes of the brain. Electronically Signed: bC Martino MD at 11:12 EDT ,
[2023-06-16 10:22] LABS: Absolute Lymphocyte Count 0.58 X10^3/uL (0.83-4.51); Absolute Neutrophil Count 15.8 X10^3/uL (2.0-7.7); Basophil# 0.03 X10^3/uL; Basophil% 0.2 % (0-1); Eosinophil# 0.09 X10^3/uL; Eosinophils% 0.5 % (0-5); Hematocrit 35.7 % (37-47); Hemoglobin 11.9 g/dL (12.0-15.0); Lymphocyte # 0.58 X10^3/ul (0.83-4.51); Lymphocyte % 3.3 % (19-41); Mean Corp Hgb Conc 33.3 g/dL (32-36); Mean Corpuscular Hgb 30.4 pg (27.0-32.0); Mean Corpuscular Volume 91.3 fL (81-99); Mean Platelet Vol. 9.4 fl (6.2-12.0); Monocyte% 4.6 % (0-10); NRBC Flagged by Analyzer 0 % (0-5); Neutrophil # 15.76 X10^3/uL (2.7-7.7); POSITIVE DIFFERENTIAL YES; Platelet Count 359 K/mm3 (150-450); RBC Distribution Width CV 13.7 % (11.6-14.6); RBC Distribution Width SD 46.4 fl (35.1-43.9); Red Blood Count 3.91 M/mm3 (4.2-5.4); White Blood Count 17.3 K/mm3 (4.4-11.0)
[2023-06-16 10:26] LABS: Differential Indicated SCAN CRITERIA MET
[2023-06-16] MEDS: 0.9% Normal Saline (1000mL) 1,000 ML 1000 ML IV (10:31)
[2023-06-16 10:37] LABS: Prothrombin Time (Protime)PT. 13.2 SECONDS (11.7-14.9)
[2023-06-16 10:38] LABS: Partial Thromboplast Time 32.5 Seconds (24.1-36.2)
--- NOTE | 2023-06-16 10:38 | RAD_ITS ---
STUDY: X-RAY CHEST REASON FOR EXAM: Female, 77 years old. Weakness TECHNIQUE: Single AP portable view of the chest. COMPARISON: Comparison is made with prior study of July 19, 2017. FINDINGS: EKG electrodes are seen. There is blunting of the left costophrenic angle with left basilar focal infiltrate versus atelectasis. Mild increased markings also seen at the right lung base. Follow-up recommended. Normal size heart. Normal mediastinum and shantanu. Normal visualized pulmonary arteries. Normal visualized aortic arch and descending thoracic aorta. There are diffuse degenerative changes of the visualized thoracic spine. There is degenerative osteoarthritis of the bilateral shoulders. There is no demonstrated abnormality of the visualized soft tissue structures of the upper abdomen. RAD/Chest 1 View (Portable) IMPRESSION: Blunting of the left costophrenic angle with underlying atelectasis and/or infiltrate. Patchy atelectasis and/or infiltrate at the right lung base as well. Electronically Signed: Cb Martino MD at 11:04 EDT ,
[2023-06-16 10:44] LABS: Anion Gap 6 (5-15); BUN 8 mg/dL (7-18); Calcium,Total 8.8 mg/dL (8.5-10.1); Chloride 100 mmol/L (98-107); Creatinine, Serum 0.62 mg/dL (0.55-1.02); EST Glomerular Filtration Rate 99 mL/min (>60); Est Glom Filt Rate - Afr Amer 120 mL/min (>60); Estimated Creatinine Clearance 38.35 ml/min; Glucose 122 mg/dL (74-106); Potassium 3.8 mmol/L (3.5-5.1); Sodium Level 130 mmol/L (136-145); Troponin-I HS 9 pg/mL (3.0-54.0)
[2023-06-16 11:04] LABS: Differential Comment SCANNED
[2023-06-16 11:10] LABS: Lactic Acid 0.8 mmol/L (0.4-1.9)
[2023-06-16] MEDS: Ondansetron 4 MG/2 ML Vial IV (11:16)
[2023-06-16 11:34] LABS: Bacteria 0 SEEN /hpf (None Seen); Mucous, Urine 0 SEEN /hpf (<or=2+); Red Blood Cells-Urine 0 SEEN /hpf (0-5); Squamous Epithelial Cells - UA 0 SEEN /hpf (5-10)
[2023-06-16 11:42] LABS: Color, Urine Yellow (Yellow); Glucose, Dipstick Normal (Normal); Ketone-Dipstick 5 mg/dl (Negative); Leukocyte Esterase-Dipstick 25 /ul (Negative); Nitrite-Dipstick Negative (Negative); Occult Blood-Urine 10 /ul (Negative); Protein-Dipstick 15 mg/dl (Negative); Urine Bilirubin Dipstick Negative (Negative); Urine Clarity Clear (Clear); Urine Urobilinogen Normal (Normal)
[2023-06-16 11:51] LABS: White Blood Cells 0-5 SEEN /hpf (0-5)
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
[2023-06-16] MEDS: Ceftriaxone 2 GM in 0.9% Normal Saline (50mL MB+) 50 ML IV (13:51)
[2023-06-16] MEDS: Azithromycin 500 MG in Dextrose 5%-Water (250mL Bag) 250 ML 250 MG IV (15:36)
[2023-06-16] MEDS: 0.9% Normal Saline (1000mL) 1,000 ML 75 ML IV (15:41)
[2023-06-16 17:57] LABS: M R Staph aureus DNA By PCR Negative (Negative); Probe Check PASS; Specimen Processing Control PASS
[2023-06-16] MEDS: Ipratropium/Albuterol Sulfate 3 ML AMPUL.NEB INHALATION (19:28)
[2023-06-16] MEDS: Atorvastatin Calcium 10 MG Tablet PO (20:52)
[2023-06-16] MEDS: Losartan Potassium 50 MG Tablet 75 MG PO (20:52)
[2023-06-16] MEDS: Pantoprazole Sodium 20 MG Tablet PO (20:53)
[2023-06-16] MEDS: guaiFENesin 1,200 MG Tablet 1200 MG PO (20:54)
[2023-06-16] MEDS: Albuterol 2.5 MG/3 ML VIAL.NEB. INHALATION (23:56)
[2023-06-17] VITALS (9 sets, daily range): BP systolic 107–146; BP diastolic 58–73; PULSE 63–87; RESP 16–20; TEMP 36.6–37.2; O2SAT 96–99
[2023-06-17] MEDS: 0.9% Normal Saline (1000mL) 1,000 ML 75 ML IV (03:33)
[2023-06-17] MEDS: Levothyroxine 88 MCG Tablet PO (03:34)
[2023-06-17] MEDS: Ipratropium/Albuterol Sulfate 3 ML AMPUL.NEB INHALATION ×3 (07:15→19:25)
[2023-06-17 07:46] LABS: Absolute Neutrophil Count 4.5 X10^3/uL (2.0-7.7); Basophil# 0.01 X10^3/uL; Basophil% 0.2 % (0-1); Eosinophil# 0.28 X10^3/uL; Eosinophils% 4.3 % (0-5); Hematocrit 32.4 % (37-47); Hemoglobin 10.5 g/dL (12.0-15.0); Lymphocyte % 15.5 % (19-41); Mean Corp Hgb Conc 32.4 g/dL (32-36); Mean Corpuscular Hgb 31.1 pg (27.0-32.0); Mean Platelet Vol. 9.3 fl (6.2-12.0); Monocyte# 0.68 X10^3/uL; Monocyte% 10.6 % (0-10); NRBC Flagged by Analyzer 0 % (0-5); Neutrophil # 4.45 X10^3/uL (2.7-7.7); Neutrophil % 69.1 % (47-70); Platelet Count 281 K/mm3 (150-450); RBC Distribution Width CV 13.9 % (11.6-14.6); RBC Distribution Width SD 49.5 fl (35.1-43.9); Red Blood Count 3.38 M/mm3 (4.2-5.4); White Blood Count 6.4 K/mm3 (4.4-11.0)
[2023-06-17 07:53] LABS: Mean Corpuscular Volume 95.9 fL (81-99)
[2023-06-17] MEDS: Cholecalciferol (VIT D3) 25 MCG TABLET (1,000 UNITS) PO (07:55)
[2023-06-17] MEDS: guaiFENesin 1,200 MG Tablet 1200 MG PO ×2 (07:55→21:21)
[2023-06-17] MEDS: Calcium Carb/Vitamin D 1 TABLET Tablet PO (07:55)
[2023-06-17 08:41] LABS: ALB/GLOB Ratio 0.7 RATIO (0.9-2.4); AST(SGOT) 10 U/L (15-37); Alanine Aminotransfer ALT/SGPT 15 U/L (13-56); Albumin, Serum 2.5 g/dL (3.2-5.0); Alkaline Phosphatase 40 U/L (45-117); Anion Gap 5 (5-15); BUN 5 mg/dL (7-18); BUN/Creat Ratio 8.6 RATIO (10-20); Calcium,Total 7.6 mg/dL (8.5-10.1); Chloride 107 mmol/L (98-107); Creatinine, Serum 0.58 mg/dL (0.55-1.02); EST Glomerular Filtration Rate 107 mL/min (>60); Est Glom Filt Rate - Afr Amer 129 mL/min (>60); Estimated Creatinine Clearance 38.35 ml/min; Globulin 3.4 g/dL (2.2-4.2); Glucose 98 mg/dL (74-106); Magnesium 2.3 mg/dL (1.6-2.6); Phosphorus 2.4 mg/dL (2.5-4.9); Potassium 3.9 mmol/L (3.5-5.1); Protein, Total 5.9 g/dL (6.4-8.2); Sodium Level 136 mmol/L (136-145)
[2023-06-17 09:31] LABS: T4 Free Direct 1.29 ng/dL (0.76-1.46); Thyroid Stim Hormone (TSH) 1.08 uIU/mL (0.358-3.74)
[2023-06-17] MEDS: Ceftriaxone 2 GM in 0.9% Normal Saline (50mL MB+) 50 ML IV (09:41)
--- NOTE | 2023-06-17 09:43 | EKG12_ITS ---
Test Reason : CP Blood Pressure : / mmHG Vent. Rate : 069 BPM Atrial Rate : 069 BPM P-R Int : 150 ms QRS Dur : 078 ms QT Int : 384 ms P-R-T Axes : 004 004 026 degrees QTc Int : 411 ms Normal sinus rhythm Normal ECG When compared with ECG of 16-JUN-2023 10:12, MANUAL COMPARISON REQUIRED, DATA IS UNCONFIRMED Confirmed by IRWIN CARRASCO, DORITA ([id number]), digital editor ISAAC PADILLA ([id number]) on 06/22/2023 6:33:01 AM Referred By: RUI Confirmed By:DORITA GAYLE MD
[2023-06-17] MEDS: Enoxaparin 40 MG/0.4 ML Syringe SC (09:52)
--- NOTE | 2023-06-17 10:06 | PCM.PN.HOSP ---
Reason for Visit Reason for Visit: Diagnoses Elevated white blood cell count, unspecified (06/16/23) Weakness (06/16/23) Other malaise (06/16/23) Abnormal findings on diagnostic imaging of other specified body structures (06/16/23) Subjective Subjective Patient laying in bed, reports that the breathing treatments have been helpful but right now she is little bit more short of breath, cough is unchanged, also has some chest pressure which she has had this morning, initially reported that she does not usually have chest pressure but then said she has been having pressure on an outpatient basis and had echocardiogram with no significant abnormalities recently on an outpatient basis and is scheduled for a stress test. Her chest pain is worse when she is resting and takes note of it is actually better when she gets up and moves around, sudden noncardiac in nature but EKG and troponin ordered Objective Data Objective Data Vital Signs: Vital Signs Temp Pulse Resp BP Pulse Ox O2 Del Method O2 Flow Rate 97.9 F 82 20 H 123/73 H 98 Nasal Cannula 2 06/17/23 09:45 06/17/23 09:45 06/17/23 09:45 06/17/23 09:45 06/17/23 09:45 06/17/23 09:45 06/17/23 09:45 Oxygen Flow Rate (L/min) 2 Oxygen Delivery Method Nasal Cannula Weight: 64.982 kg Body Mass Index (BMI) 25.3 Intake & Output: Intake and Output for Last 24 Hours 06/15/23 06/16/23 06/17/23 23:59 23:59 23:59 Intake Total 1547.5 / 1547.5 1277.5 / 1277.5 Balance 1547.5 / 1547.5 1277.5 / 1277.5 Lab / Micro Data 06/17/23 06:55 06/17/23 06:55 Labs: Laboratory Results - last 24 hr 06/16/23 09:50: WBC 17.3 H, RBC 3.91 L, Hgb 11.9 L, Hct 35.7 L, MCV 91.3, MCH 30.4, MCHC 33.3, RDW Std Deviation 46.4 H, RDW Coeff of Suresh 13.7, Plt Count 359, MPV 9.4, Immature Gran % (Auto) 0.400, Neut % (Auto) 91.0 H, Lymph % (Auto) 3.3 L, [place] % (Auto) 4.6, Eos % (Auto) 0.5, Baso % (Auto) 0.2, Absolute Neuts (auto) 15.8 H, Absolute Lymphs (auto) 0.58 L, Nucleated RBC % 0, Differential Comment SCANNED, PT 13.2, INR 1.0, APTT 32.5, Sodium 130 L, Potassium 3.8, Chloride 100, Carbon Dioxide 24.0, Anion Gap 6, BUN 8, Creatinine 0.62, Estim Creat Clear Calc 38.35, Est GFR (MDRD) Af Amer 120, Est GFR (MDRD) Non-Af 99, BUN/Creatinine Ratio 13.0, Glucose 122 H, Calcium 8.8, Troponin I High Sens 9 06/16/23 10:29: Lactic Acid 0.8 06/16/23 11:25: Urine Color Yellow, Urine Clarity Clear, Urine pH 7.0, Ur Specific [place] 1.010, Urine Protein 15 H, Urine Glucose (UA) Normal, Urine Ketones 5 H, Urine Occult Blood 10 H, Urine Nitrite Negative, Urine Bilirubin Negative, Urine Urobilinogen Normal, Ur Leukocyte Esterase 25 H, Urine RBC 0 SEEN, Urine WBC 0-5 SEEN, Ur Squamous Epith Cells 0 SEEN, Urine Bacteria 0 SEEN, Urine Mucus 0 SEEN 06/16/23 15:15: MRSA (PCR) Negative 06/17/23 06:55: WBC 6.4, RBC 3.38 L, Hgb 10.5 L, Hct 32.4 L, MCV 95.9 D, MCH 31.1, MCHC 32.4, RDW Std Deviation 49.5 H, RDW Coeff of Suresh 13.9, Plt Count 281, MPV 9.3, Immature Gran % (Auto) 0.300, Neut % (Auto) 69.1, Lymph % (Auto) 15.5 L, [place] % (Auto) 10.6 H, Eos % (Auto) 4.3, Baso % (Auto) 0.2, Absolute Neuts (auto) 4.5, Absolute Lymphs (auto) 1.00, Nucleated RBC % 0, Sodium 136, Potassium 3.9, Chloride 107, Carbon Dioxide 24.0, Anion Gap 5, BUN 5 L, Creatinine 0.58, Estim Creat Clear Calc 38.35, Est GFR (MDRD) Af Amer 129, Est GFR (MDRD) Non-Af 107, BUN/Creatinine Ratio 8.6 L, Glucose 98, Calcium 7.6 L, Phosphorus 2.4 L, Magnesium 2.3, Total Bilirubin 0.30, AST 10 L, ALT 15, Alkaline Phosphatase 40 L, Total Protein 5.9 L, Albumin 2.5 L, Globulin 3.4, Albumin/Globulin Ratio 0.7 L, TSH 1.08, Free T4 1.29 Micro: Microbiology 06/16/23 16:12 Mucosa - Nasopharyngeal Respiratory Panel (PCR) - Final 06/16/23 15:15 Nasal Secretion SARS-CoV-2 & FLU Antigen (Rapid) - Final 06/16/23 11:25 Urine, Clean Catch Legionella Antigen - Final 06/16/23 11:25 Urine, Clean Catch Streptococcus pneumoniae Antigen (M - Final Radiography Diagnostic Testing: Radiology Impression Brain CT 06/16/23 10:02 IMPRESSION: Chronic involutional changes of the brain. Electronically Signed: Cb Martino MD at 11:12 EDT , Chest X-Ray 06/16/23 10:38 IMPRESSION: Blunting of the left costophrenic angle with underlying atelectasis and/or infiltrate. Patchy atelectasis and/or infiltrate at the right lung base as well. Electronically Signed: Cb Martino MD at 11:04 EDT , Physical Exam Narrative General: Alert, oriented, no apparent distress HEENT: Atraumatic, normocephalic Eyes: Anicteric, normal conjunctiva, extraocular movements grossly intact Neck: Supple Respiratory: Diminished throughout, slightly increased respiratory effort Cardiovascular: Regular rate and rhythm GI: Soft, nontender, nondistended Extremities: No edema Musculoskeletal: Moving all extremities Neuro: No overt focal neurological deficits Skin: No rashes appreciated Psych: Cooperative Assessment & Plan Assessment/Plan (1) General weakness: (2) Leukocytosis: (3) Debility: (4) Abnormal chest x-ray: PLAN: Plan #Generalized weakness and increased shortness of breath suspect secondary to community-acquired pneumonia with component of exacerbation of her chronic asthma -Patient's had increased shortness of breath over the past couple days and severe generalized weakness as well as productive cough -Infiltrate noted on chest x-ray and had elevated white blood cell count on presentation concerning for pneumonia -On antibiotics, viral panel is negative -Breathing treatments been helpful, does report she has asthma and follows with pulm and when she is sick like this she usually gets steroids and that improves -Suspect some of chest tightness feeling with increased shortness of breath this a.m. and decreased air movement bilaterally is due to asthma exacerbation, will start IV steroids and increased frequency of nebs while continuing antibiotics -EKG for chest pressure unremarkable, troponin pending though given history of this being chronic and actually worse at rest less likely cardiac in nature and suspect more pulmonary -PT/OT #Mild anemia -This is new compared September 2021 -Unclear what recent hemoglobin has been -Anemia is only mild with a hemoglobin of 11.9 -We will monitor -No signs of bleeding -06/17: No active signs or symptoms of bleeding #Chronic pain due to osteoarthritis -Continue home pain medication #Osteoporosis -Patient is on Prolia -Continue vitamin D supplementation #History of stroke -Continue home Plavix #GERD -Continue PPI #Hypothyroidism -Continue home levothyroxine #Hypertension -Continue home losartan #Hyperlipidemia -Continue home rosuvastatin #DVT prophylaxis -Subcu Lovenox 40 daily CODE STATUS -DNR CCA okay for short-term intubation as discussed prior to admission Time spent in the patient's overall evaluation,decision-making process, review of diagnostic data, adjustment of management, discussion with other providers, nursing nursing and ancillary staff involved in patient's care documentation, 40 minutes Charges/Coding Visit Charges Inpatient E&M: 82939 Subs Hosp L2
[2023-06-17] MEDS: Azithromycin 500 MG in Dextrose 5%-Water (250mL Bag) 250 ML 250 MG IV (10:27)
[2023-06-17 10:36] LABS: Troponin-I HS 7 pg/mL (3.0-54.0)
[2023-06-17] MEDS: Sodium Phosphate/Na Biphos 21 MMOL in 0.9% Normal Saline (250mL Bag) 250 ML 84 MMOL IV (12:51)
--- NOTE | 2023-06-17 13:42 | CASEMGMT ---
ERIBERTO OGLESBY Assessment: Face to Face with pt for initial transition planning/care coordination assessment. RN RENY introduced self and role at [facility], pt voices understanding and consents to assessment. Pt is A&O x4 and answers all questions appropriately at this time. Pt. laying in bed and her is also at the bedside. Care providers, pharmacy, and demographics verified/updated. Admitting Dx: Generalized Weakness with Possible PNA PCP: Timothy Specialists: Manufacturing Supervisor 2Nd Shift ([place]), Auto Servicer ([place]), Pain Management ([facility] [place]), Anurag (Orthopedic), Delonte (Director Of Scout Work) Preferred Pharmacy: [facility] ([place]) Insurance: Medicare A & B Prescription Benefit: yes LNOK: Naga Robison () Living Will/HCPOA: Yes and Yes; is HCPOA Living Arrangements: Pt lives with her in a 1 story home with [facility]. 1 step w/railing to enter and 12 steps w/railing to basement. Prior to this admission, pt. states she was doing well with ambulating steps. Pt. states she is I in ADLs and IADLs except that she has a cleaning lady. Transportation: Self and DME: shower chair, higher toilet seat, cane, grab bars, walker, and a fob they can press to call for help if needed. Pt. declines to receive information on medical alert systems. HHC/SNF: Denies any previous HHC or SNF. States prior to this admission she was doing outpatient PT one every three weeks through [facility] in [place] (for pain management for her back). Pt states she would like to d/c home, though she states she does still feel weak and shaky today when working with PT. Pt states no further concerns/needs. CM to follow. Advised pt to ask CM if any further question/concerns/needs arise, voices understanding. Pt Goal: Home with resuming outpatient PT through [facility] (pt. states her next appt. is in 2 weeks). Pt. states her is home all of the time and could assist her. Pt. states she is open to additional care if needed. Plan: Home with outpatient PT through resuming with [facility] vs. Home with HHC. Follow therapy
[2023-06-17] MEDS: 0.9% Saline Lock 10 ML Syringe IV (14:53)
[2023-06-17] MEDS: Methylprednisolone Sod Succ 40 MG/ML VIAL IV ×2 (14:53→21:21)
[2023-06-17] MEDS: Losartan Potassium 50 MG Tablet 75 MG PO (21:20)
[2023-06-17] MEDS: Pantoprazole Sodium 20 MG Tablet PO (21:21)
[2023-06-17] MEDS: Atorvastatin Calcium 10 MG Tablet PO (21:21)
[2023-06-18 04:14] VITALS: BP 127/60; PULSE 74; RESP 18; TEMP 36.6; O2SAT 93
[2023-06-18] MEDS: Levothyroxine 88 MCG Tablet PO (04:18)
[2023-06-18] MEDS: Methylprednisolone Sod Succ 40 MG/ML VIAL IV ×2 (04:18→12:15)
[2023-06-18] MEDS: Senna/Docusate Sodium 1 Tablet 2 TABLET PO (06:29)
[2023-06-18] MEDS: Ipratropium/Albuterol Sulfate 3 ML AMPUL.NEB INHALATION (07:10)
[2023-06-18 07:11] VITALS: PULSE 78; RESP 18; O2SAT 98
[2023-06-18 07:57] VITALS: O2SAT 96
[2023-06-18] MEDS: Enoxaparin 40 MG/0.4 ML Syringe SC (08:11)
[2023-06-18] MEDS: guaiFENesin 1,200 MG Tablet 1200 MG PO (08:12)
[2023-06-18] MEDS: Cholecalciferol (VIT D3) 25 MCG TABLET (1,000 UNITS) PO (08:13)
[2023-06-18] MEDS: Calcium Carb/Vitamin D 1 TABLET Tablet PO (08:13)
[2023-06-18 08:39] LABS: Absolute Lymphocyte Count 0.85 X10^3/uL (0.83-4.51); Basophil# 0.01 X10^3/uL; Basophil% 0.1 % (0-1); Hematocrit 36.6 % (37-47); Hemoglobin 12.3 g/dL (12.0-15.0); Lymphocyte # 0.85 X10^3/ul (0.83-4.51); Lymphocyte % 7.7 % (19-41); Mean Corp Hgb Conc 33.6 g/dL (32-36); Mean Corpuscular Hgb 31.3 pg (27.0-32.0); Mean Corpuscular Volume 93.1 fL (81-99); Mean Platelet Vol. 9.7 fl (6.2-12.0); Monocyte# 0.13 X10^3/uL; Monocyte% 1.2 % (0-10); NRBC Flagged by Analyzer 0 % (0-5); Neutrophil # 9.97 X10^3/uL (2.7-7.7); Neutrophil % 90.6 % (47-70); Platelet Count 354 K/mm3 (150-450); RBC Distribution Width CV 13.6 % (11.6-14.6); RBC Distribution Width SD 46.6 fl (35.1-43.9); Red Blood Count 3.93 M/mm3 (4.2-5.4)
[2023-06-18 09:03] LABS: Anion Gap 10 (5-15); BUN 8 mg/dL (7-18); BUN/Creat Ratio 13.7 RATIO (10-20); Calcium,Total 8.7 mg/dL (8.5-10.1); Chloride 105 mmol/L (98-107); Creatinine, Serum 0.58 mg/dL (0.55-1.02); EST Glomerular Filtration Rate 106 mL/min (>60); Est Glom Filt Rate - Afr Amer 128 mL/min (>60); Estimated Creatinine Clearance 38.35 ml/min; Glucose 139 mg/dL (74-106); Potassium 3.8 mmol/L (3.5-5.1); Sodium Level 135 mmol/L (136-145)
--- NOTE | 2023-06-18 09:43 | PCM.DC.SUM ---
Providers Date of Admission: 06/17/23 Date of Discharge: 06/18/23 Primary Care Physician: PHOENIX Suh Reason For Visit: GENERALIZED WEAKNESS WITH POSSIBLE PNA Diagnosis Discharge Diagnosis (1) General weakness: Status: Acute Code(s): R53.1 - Weakness (2) Leukocytosis: Status: Acute Code(s): D72.829 - Elevated white blood cell count, unspecified (3) Debility: Status: Acute Code(s): R53.81 - Other malaise (4) Abnormal chest x-ray: Status: Acute Code(s): R93.89 - Abnormal findings on diagnostic imaging of other specified body structures Plan #Generalized weakness and increased shortness of breath secondary to community-acquired pneumonia with component of exacerbation of her chronic asthma #Mild anemia #Chronic pain due to osteoarthritis #Osteoporosis #History of stroke #GERD #Hypothyroidism #Hypertension Medications at Discharge Home Medications calcium citrate 200 mg calcium-vitamin D3 6.25 mcg (250 unit) tablet ([place] Calcium-Vitamin D3) 1 tab PO DAILY 08/18/17 fluticasone propionate 50 mcg/actuation nasal spray,suspension (Flonase Allergy Relief) 1 spray intranasal BID PRN allergies 09/19/17 cholecalciferol (vitamin D3) 25 mcg (1,000 unit) capsule 1,000 unit PO ONCE supplement 05/05/18 albuterol sulfate 90 mcg/actuation aerosol inhaler 2 puff inhalation Q4H PRN shortness of breath or wheezing #1 device 07/07/20 denosumab 60 mg/mL subcutaneous syringe (Prolia) 60 mg subcut [id number] cholesterol #1 mL 08/19/20 lidocaine 4 % topical patch (Aspercreme (lidocaine)) 1 patch topical DAILY PRN pain 06/02/21 biotin 2,500 mcg capsule 2,500 mcg PO DAILY supplement 11/30/21 hydrocodone-acetaminophen 5-325mg 5mg-325mg 1 tab PO QHS PRN pain 11/30/21 loratadine 10 mg tablet (Claritin) 10 mg PO DAILY PRN seasonal allergies 11/30/21 omega 0-iue-fkj-fish oil 60 mg-90 mg-500 mg capsule (Fish Oil) 1 cap PO DAILY 11/30/21 fluticasone 250 mcg-salmeterol 50 mcg/dose blistr powdr for inhalation (Advair Diskus) 1 inh inhalation BID asthma #60 ea 11/11/22 Lactobacillus rhamnosus GG 10 billion cell capsule (Culturelle) 1 cap PO BID 06/16/23 clopidogrel 75 mg tablet (Plavix) 75 mg PO QPM blood thinner 06/16/23 lansoprazole 15 mg capsule,delayed release 15 mg PO QPM acid reflux 06/16/23 levothyroxine 88 mcg tablet 88 mcg PO DAILY thyroid 06/16/23 losartan 50 mg tablet 75 mg PO QPM blood pressure 06/16/23 rosuvastatin 5 mg tablet 5 mg PO QPM cholesterol 06/16/23 amoxicillin 875 mg-potassium clavulanate 125 mg tablet 1 tab PO BID 5 days #10 tabs 06/18/23 guaifenesin 1,200 mg tablet, extended release 12 hr (Mucus Relief ER) 1,200 mg PO BID #14 tabs 06/18/23 prednisone 20 mg tablet See Taper PO BREAKFAST #32 tabs 06/18/23 Hospital Course Summary of Care Provided Minutes Spent on Discharge: 32 Hospital Course: 77-year-old female history of CVA, hypothyroidism, chronic pain, asthma presented to [facility] 06/16/2023 with increasing shortness of breath and generalized weakness that was significantly worse than her baseline. Chest x-ray concerning for pneumonia and patient elevated white blood cell count so she was started on antibiotics, also had significant improvement when she had nebs with worsening in between treatments with significant shortness of breath and chest tightness and reported that she usually gets steroids when she has breathing problems which helps. She was started on steroids for concerns for exacerbation of her asthma and improved significantly, was feeling shaky with this however improved overall clinically. Due to an episode of chest tightness EKG obtained which was unremarkable and troponin normal. She reports she has been having this on an outpatient basis but it actually is better when she gets up and moves around, do not suspect cardiac more likely pulmonary in nature. She worked with PT/OT 06/17 and was still having weakness and debility and SNF was recommended however on 06/18 she reports that she is getting up and moving around much better with walker and feels comfortable with going home, patient's present 1 plan was discussed and agreeable. Patient already has follow-up with her complex commercial litigation paralegal for June 30. Verbalizes understanding with plan and no new acute complaints. Shortness of breath improving as is her weakness. Discharge instructions as follows: -You will take Augmentin for another 5 days starting tomorrow 06/19. Augmentin will also take the place of your nitrofurantoin so this can be discontinued. You can continue Mucinex -You will be discharged on a prednisone taper: -60 mg daily x3 days -50mg daily x3 days -40mg daily x3 days -30mg daily x3 days -20mg daily x3 days -10mg daily x3 days -Continue home inhalers and follow-up with your complex commercial litigation paralegal as scheduled -Please call your primary care provider's office upon discharge to schedule a hospital follow up within 1 week. -For any concerning signs or symptoms please call 911 or proceed to the nearest emergency department Physical Exam Narrative General: Alert, oriented, no apparent distress HEENT: Atraumatic, normocephalic Eyes: Anicteric, normal conjunctiva, extraocular movements grossly intact Neck: Supple Respiratory: Normal respiratory effort with improved aeration Cardiovascular: Regular rate and rhythm GI: Soft, nontender, nondistended Extremities: No edema Musculoskeletal: Moving all extremities Neuro: No overt focal neurological deficits, is slightly tremulous since starting steroids Skin: No rashes appreciated Psych: Cooperative Weight / BMI Weight Weight: 64.982 kg Body Mass Index (BMI) 25.3 ABG / Lab / Microbiology Data 06/18/23 07:31 06/18/23 07:31 Laboratory: Laboratory Results - last 24 hr 06/17/23 10:02: Troponin I High Sens 7 06/18/23 07:31: WBC 11.0, RBC 3.93 L, Hgb 12.3, Hct 36.6 L, MCV 93.1, MCH 31.3, MCHC 33.6, RDW Std Deviation 46.6 H, RDW Coeff of Suresh 13.6, Plt Count 354, MPV 9.7, Immature Gran % (Auto) 0.400, Neut % (Auto) 90.6 H, Lymph % (Auto) 7.7 L, Shelby % (Auto) 1.2, Eos % (Auto) 0.0, Baso % (Auto) 0.1, Absolute Neuts (auto) 10.0 H, Absolute Lymphs (auto) 0.85, Nucleated RBC % 0, Sodium 135 L, Potassium 3.8, Chloride 105, Carbon Dioxide 20.0 L, Anion Gap 10, BUN 8, Creatinine 0.58, Estim Creat Clear Calc 38.35, Est GFR (MDRD) Af Amer 128, Est GFR (MDRD) Non-Af 106, BUN/Creatinine Ratio 13.7, Glucose 139 H, Calcium 8.7 Microbiology: Microbiology 06/16/23 10:24 Blood Culture (Wb) - Anticubital Right Blood Culture - Preliminary No growth in 48 hours. 06/16/23 10:21 Blood Culture (Wb) - Anticubital Left Blood Culture - Preliminary No growth in 48 hours. 06/16/23 11:25 Urine, Clean Catch Urine Culture - Final Culture exhibits no growth. 06/16/23 16:12 Mucosa - Nasopharyngeal Respiratory Panel (PCR) - Final 06/16/23 15:15 Nasal Secretion SARS-CoV-2 & FLU Antigen (Rapid) - Final 06/16/23 11:25 Urine, Clean Catch Legionella Antigen - Final 06/16/23 11:25 Urine, Clean Catch Streptococcus pneumoniae Antigen (M - Final D/C Instructions Discharge Diet: - (DASH diet) Meaningful Use Info Meaningful Use Diagnoses (Choose all that apply): None applicable Discharge Plan Admission Admit Date/Time: 06/17/23 13:36 Primary Reason for Your Visit: Weakness, shortness of breath Attending Provider: Elana Bae Primary Care Provider: Angie Aguirre NP Consulting Providers: Shayla Connor Instructions Patient Instructions: ED Fall Prevention Additional Instructions / Restrictions: DISCHARGE INSTRUCTIONS PLEASE READ *Please take this with you to your next doctors appointment* -You will take Augmentin for another 5 days starting tomorrow 06/19. Augmentin will also take the place of your nitrofurantoin so this can be discontinued. You can continue Mucinex -You will be discharged on a prednisone taper: -60 mg daily x3 days -50mg daily x3 days -40mg daily x3 days -30mg daily x3 days -20mg daily x3 days -10mg daily x3 days -Continue home inhalers and follow-up with your complex commercial litigation paralegal as scheduled -Please call your primary care provider's office upon discharge to schedule a hospital follow up within 1 week. -For any concerning signs or symptoms please call 911 or proceed to the nearest emergency department Discharge Orders/Prescriptions Prescriptions: New guaifenesin [Mucus Relief ER] 1,200 mg Tablet Extended Release 12hr 1,200 mg PO BID Qty: 14 0RF prednisone 20 mg Tablet See Taper PO BREAKFAST Qty: 32 0RF Taper: Prednisone Taper 60 mg WITH BREAKFAST for 3 Days and 0 Hour 50 mg WITH BREAKFAST for 3 Days and 0 Hour 40 mg WITH BREAKFAST for 3 Days and 0 Hour 30 mg WITH BREAKFAST for 3 Days and 0 Hour 20 mg WITH BREAKFAST for 3 Days and 0 Hour 10 mg WITH BREAKFAST for 3 Days and 0 Hour amoxicillin-pot clavulanate 875-125 mg tablet 1 tab PO BID 5 Days Qty: 10 0RF Continued calcium citrate-vitamin D3 [[place] Calcium-Vitamin D3] 200 mg calcium -250 unit tablet 1 tab PO DAILY fluticasone propionate [Flonase Allergy Relief] 50 mcg/actuation spray,suspension 1 spray INTRANASAL BID PRN (Reason: allergies) cholecalciferol (vitamin D3) 1,000 unit capsule 1,000 unit PO ONCE lidocaine [Aspercreme (lidocaine)] 4 % adhesive patch,medicated 1 patch topical DAILY PRN (Reason: pain ) loratadine [Claritin] 10 mg tablet 10 mg PO DAILY PRN (Reason: seasonal allergies) biotin 2,500 mcg capsule 2,500 mcg PO DAILY omega 8-abs-wso-fish oil [Fish Oil] 60-90-500 mg capsule 1 cap PO DAILY hydrocodone-acetaminophen 5-325 mg tablet 1 tab PO QHS PRN (Reason: pain ) levothyroxine 88 mcg tablet 88 mcg PO DAILY lansoprazole 15 mg capsule,delayed release(DR/EC) 15 mg PO QPM losartan 50 mg tablet 75 mg PO QPM clopidogrel [Plavix] 75 mg tablet 75 mg PO QPM rosuvastatin 5 mg tablet 5 mg PO QPM Culturelle 10 billion cell capsule 1 cap PO BID albuterol sulfate 90 mcg/actuation HFA aerosol inhaler 2 puff INHALATION Q4H PRN (Reason: shortness of breath or wheezing) Qty: 1 6RF Rx Instructions: administer with spacer Prolia 60 mg/mL syringe 60 mg SC [id number] Qty: 1 2RF fluticasone propion-salmeterol [Advair Diskus] 250-50 mcg/dose blister with device 1 inh inhalation BID Qty: 60 11RF Rx Instructions: [email or web address] Discontinued nitrofurantoin monohyd/m-cryst 100 mg capsule 100 mg PO BID Patient Comments: TAKE ONE CAPSULE BY MOUTH TWICE A DAY FOR 7 DAYS. RX FILLED AND STARTED ON 06-14-23. Referrals / Follow Up: Angie Aguirre NP, SENIOR CLINICAL RESEARCH SCIENTIST-C [Primary Care Provider] - Within 1 Week Disposition Disposition (needs filled in before D/C Order can be placed): Home, Self Care Charges/Coding Visit Charges Inpatient E&M: 87137 Disch Hosp >30min
[2023-06-18] MEDS: Ceftriaxone 2 GM in 0.9% Normal Saline (50mL MB+) 50 ML IV (10:07)
[2023-06-18] MEDS: 0.9% Saline Lock 10 ML Syringe IV ×2 (10:08→12:16)
[2023-06-18 10:15] VITALS: BP 138/62; PULSE 84; RESP 14; TEMP 36.4; O2SAT 96
[2023-06-18] MEDS: Azithromycin 500 MG in Dextrose 5%-Water (250mL Bag) 250 ML 250 MG IV (10:41)
[2023-06-18 12:02] VITALS: O2SAT 97; O2SAT 98
[2023-06-18 12:14] VITALS: BP 124/62; PULSE 75; RESP 16; TEMP 36.6; O2SAT 96
== END 2023-06-18 12:22 | disposition home or self-care (01) | DRG 194 ==
LOC: ED 13:40 → MS3 13:51
PROVIDERS: Admitting Provider Internal Medicine; Emergency Provider Emergency Medicine; PCP Registered Nurse; Visit Provider Internal Medicine
DX: J18.9 Pneumonia, unspecified organism (principal); J45.901 Unspecified asthma with (acute) exacerbation; E87.1 Hypo-osmolality and hyponatremia; N39.0 Urinary tract infection, site not specified; I10 Essential (primary) hypertension; D64.9 Anemia, unspecified; E78.5 Hyperlipidemia, unspecified; M17.12 Unilateral primary osteoarthritis, left knee; K21.9 Gastro-esophageal reflux disease without esophagitis; G89.29 Other chronic pain; M81.0 Age-related osteoporosis without current pathological fracture; B96.20 Unspecified Escherichia coli [E. coli] as the cause of diseases classified elsewhere; R07.89 Other chest pain; Z66 Do not resuscitate; Z79.02 Long term (current) use of antithrombotics/antiplatelets; Z79.51 Long term (current) use of inhaled steroids; Z79.899 Other long term (current) drug therapy; Z86.73 Personal history of transient ischemic attack (TIA), and cerebral infarction without residual deficits; Z87.891 Personal history of nicotine dependence
CPT/HCPCS: 36415; 70450; 71045; 80048; 80053; 81001; 83605; 83735; 84100; 84439; 84443; 84484; 85025; 85610; 85730; 87040; 87086; 87428; 87449; 87633; 87641; 93005; 94640; 94668; 97162; 97166; 99252; 99285; J7030; J7040; J7050; A4216; G0463; J0696; J2405

== ENCOUNTER 2024-12-18 16:01 | Outpatient (CLI) | payer MEDICARE, OTHER, SELFPAY | END 2024-12-18 23:59 | disposition home or self-care (01) | LOC: LABSPEC 16:02 | PROVIDERS: Referring Provider Nurse Practitioner Acute Care; Visit Provider Nurse Practitioner Acute Care | DX: R50.9 Fever, unspecified (principal) | CPT/HCPCS: 87633 ==

== ENCOUNTER → 2025-01-09 | Outpatient (CLI) | payer MEDICARE, OTHER, SELFPAY | END | disposition home or self-care (01) | PROVIDERS: PCP Family Medicine; Referring Provider Nurse Practitioner Acute Care; Visit Provider Nurse Practitioner Acute Care | DX: R05.9 Cough, unspecified (principal) | CPT/HCPCS: 87070; 87205 ==

== ENCOUNTER → 2025-04-20 | Outpatient (CLI) | payer MEDICARE, OTHER, SELFPAY ==
--- OUTSIDE RECORDS SUMMARY | 2025-04-20 10:34 | XMS RPT_ITS | CCD ---
Author Organization [facility] Care Team Providers Care Apple Press Operator Name Role Phone Jamila Husain Unavailable Rakel Livingston Unavailable Dorothea Chapa Unavailable Unavailable Slarb, Kadi Unavailable Unavailable Unavailable Unavailable OLEGHE, EFEWONGBE B Primary Care Unavailable OLEGHE, EFEWONGBE B Primary Care Unavailable VALLABH, MALLORIE C Referring Unavailable VALLABH, MALLORIE C Attending Unavailable OLEGHE, EFEWONGBE B Primary Care Unavailable VALLABH, MALLORIE C Referring Unavailable VALLABH, MALLORIE C Attending Unavailable OLEGHE, EFEWONGBE B Primary Care Unavailable VALLABH, MALLORIE C Referring Unavailable VALLABH, MALLORIE C Attending Unavailable OLEGHE, EFEWONGBE B Primary Care Unavailable VALLABH, MALLORIE C Referring Unavailable VALLABH, MALLORIE C Attending Unavailable OLEGHE, EFEWONGBE B Primary Care Unavailable VALLABH, MALLORIE C Referring Unavailable VALLABH, MALLORIE C Attending Unavailable OLEGHE, EFEWONGBE B Primary Care Unavailable OLEGHE, EFEWONGBE B Primary Care Unavailable VALLABH, MALLORIE C Referring Unavailable VALLABH, MALLORIE C Attending Unavailable VALLABH, MALLORIE C Attending Unavailable OLEGHE, EFEWONGBE B Primary Care Unavailable OLEGHE, EFEWONGBE B Referring Unavailable VALLABH, MALLORIE C Referring Unavailable VALLABH, MALLORIE C Attending Unavailable OLEGHE, EFEWONGBE B Primary Care Unavailable VALLABH, MALLORIE C Attending Unavailable VALLABH, MALLORIE C Referring Unavailable OLEGHE, EFEWONGBE B Primary Care Unavailable Angie Aguirre APRN.CNP Primary Care Provider Carmina Grissom MD Primary Care Provider Carmina Grissom MD Primary Care Provider Haagen BIOINFORMATICS SOFTWARE ENGINEER.WEIGHT ANALYST, [facility] Primary Care Provider Carmina Grissom MD Primary Care Provider Haagen BIOINFORMATICS SOFTWARE ENGINEER.WEIGHT ANALYST, [facility] Primary Care Provider Haagen BIOINFORMATICS SOFTWARE ENGINEER.WEIGHT ANALYST, [facility] Primary Care Provider Dr. Carmina Grissom Primary Care Provider Cj HOUSE SUPERINTENDENT, HOUSE SUPERINTENDENT-C Trisha Attending Provider Corona HOUSE SUPERINTENDENT, HOUSE SUPERINTENDENT-C Trisha Referring Provider Timothy HOUSE SUPERINTENDENT, HOUSE SUPERINTENDENT-C [facility] Primary Care Provider Haagen BIOINFORMATICS SOFTWARE ENGINEER.WEIGHT ANALYST, [facility] Primary Care Provider Haagen HOUSE SUPERINTENDENT, HOUSE SUPERINTENDENT-C Angie Referring Provider Dr. Jeramie Rose Attending Provider Haagen HOUSE SUPERINTENDENT, HOUSE SUPERINTENDENT-C [facility] Primary Care Provider Haagen HOUSE SUPERINTENDENT, HOUSE SUPERINTENDENT-C Angie Referring Provider Dr. Afia Santana Attending Provider Dr. Bill Coombs Emergency Provider Dr. Shayla Connor Admit Provider Dr. Shayla Connor Attending Provider Dr. Shayla Connor Other Provider Dr. Elana Bae Attending Provider Dr. Elana Bae Other Provider LRAS ALCANTAR Referring Unavailable HAAGEN, ANGIE Primary Care Unavailable MARCIOLARS BURNHAM Referring Unavailable HAAGEN, ANGIE Primary Care Unavailable LARS ALCANTAR Referring Unavailable HAAGEN, ANGIE Primary Care Unavailable LARS ALCANTAR Attending Unavailable HAAGEN, ANGIE Primary Care Unavailable HAAGEN, ANGIE Referring Unavailable MARCIO, LARS C Referring Unavailable MARCIO, LARS C Attending Unavailable HAAGEN, ANGIE Primary Care Unavailable ALBIN BALDERRAMA Referring Unavailable HAAGEN, ANGIE Primary Care Unavailable MARCIO, LARS C Referring Unavailable HAAGEN, ANGIE Primary Care Unavailable MARCIO, LARS C Referring Unavailable HAAGEN, ANGIE Primary Care Unavailable MARCIO, LARS C Referring Unavailable HAAGEN, ANGIE Primary Care Unavailable HAAGEN, ANGIE Primary Care Unavailable MARCIO, LARS C Referring Unavailable HAAGEN, ANGIE Primary Care Unavailable MARCIO, LARS C Referring Unavailable MARCIO, LARS C Referring Unavailable HAAGEN, ANGIE Primary Care Unavailable MARCIO, LARS C Referring Unavailable HAAGEN, ANGIE Primary Care Unavailable HAAGEN, ANGIE Primary Care Unavailable MARCIO, ALRS C Referring Unavailable MARCIO, LARS C Referring Unavailable HAAGEN, ANGIE Primary Care Unavailable MARCIO, LARS C Referring Unavailable HAAGEN, ANGIE Primary Care Unavailable MARCIO, LARS C Referring Unavailable HAAGEN, ANGIE Primary Care Unavailable Haagen BIOINFORMATICS SOFTWARE ENGINEER.SAURABH, [facility] Primary Care Provider BRANDO GIBSON Admitting Unavailable BRANDO GIBSON Attending Unavailable HAAGEN, ANGIE Primary Care Unavailable GIBSON, BRANDO C Admitting Unavailable GIBSON, BRANDO C Attending Unavailable HAAGEN, ANGIE Primary Care Unavailable GIBSON, BRANDO C Attending Unavailable GIBSON, BRANDO C Admitting Unavailable HAAGEN, ANGIE Primary Care Unavailable GIBSON, BRANDO C Admitting Unavailable GIBSON, BRANDO C Attending Unavailable HAAGEN, ANGIE Primary Care Unavailable Haagen BIOINFORMATICS SOFTWARE ENGINEER.SAURABH, [facility] Primary Care Provider Suppan BIOINFORMATICS SOFTWARE ENGINEER.SAURABH, Shameka A Unavailable Gabo Paris MD Unavailable Suppan BIOINFORMATICS SOFTWARE ENGINEER.WEIGHT ANALYST, Shameka A Unavailable Suppan BIOINFORMATICS SOFTWARE ENGINEER.WEIGHT ANALYST, Shameka A Unavailable Brooke Chamorro Attending Provider Cj HOUSE SUPERINTENDENT-C, Trisha Attending Provider Cj HOUSE SUPERINTENDENT-C, Trisha Referring Provider Ko CARRASCO, Dr. Toby Torrez Primary Care Provide r Dr. Toby Connell MD Referring Provider Haagen HOUSE SUPERINTENDENT-C, Angie Primary Care Provider Cj HOUSE SUPERINTENDENT, Trisha Attending Unavailable Corona HOUSE SUPERINTENDENT, Trisha Referring Unavailable Ko, Christopher L Referring Unavailable Corona HOUSE SUPERINTENDENT, Trisha Attending Unavailable Haagen HOUSE SUPERINTENDENT, Angie Primary Care Unavailable Afia Santana Attending Unavailable Jeramie Rose Attending Unavailable Catalino HOUSE SUPERINTENDENT, Heather Attending Unavailable Afia Santana Attending Unavailable Brooke Chamorro Attending Unavailable Cj HOUSE SUPERINTENDENT, Trisha Attending Unavailable Corona HOUSE SUPERINTENDENT, Trisha Attending Unavailable Corona HOUSE SUPERINTENDENT, Trisha Attending Unavailable Corona HOUSE SUPERINTENDENT, Trisha Referring Unavailable Ko, Christopher L Primary Care Unavailable HAAGEN, ANGIE Referring Unavailable HAAGEN, ANGIE Primary Care Unavailable HAAGEN, ANGIE Referring Unavailable HAAGEN, ANGIE Primary Care Unavailable HAAGEN, ANGIE Primary Care Unavailable KARMEN AMADOR Attending Unavailable TACOS, ALBIN Referring Unavailable HAAGEN, ANGIE Primary Care Unavailable KARMEN AMADOR Attending Unavailable TACOS, ALBIN Referring Unavailable HAAGEN, ANGIE Primary Care Unavailable KARMEN AMADOR Attending Unavailable TACOS, ALBIN Referring Unavailable HAAGEN, ANGIE Primary Care Unavailable KARMEN AMADOR Attending Unavailable TACOS, ALBIN Referring Unavailable HAAGEN, ANGIE Primary Care Unavailable KARMEN AMADOR Attending Unavailable TACOS, ALBIN Referring Unavailable HAAGEN, ANGIE Primary Care Unavailable KARMEN AMADOR Attending Unavailable TACOS, ALBIN Referring Unavailable HAAGEN, ANGIE Primary Care Unavailable KARMEN AMADOR Attending Unavailable TACOS, ALBIN Referring Unavailable HAAGEN, ANGIE Primary Care Unavailable KARMEN AMDAOR Attending Unavailable TACOS, ALBIN Referring Unavailable HAAGEN, ANGIE Primary Care Unavailable HAAGEN, ANGIE Referring Unavailable HAAGEN, ANGIE Primary Care Unavailable QUITA BARTH Attending Unavailable HAAGEN, ANGIE Primary Care Unavailable MEAGAN WHITE Attending Unavailable HAAGEN, ANGIE Referring Unavailable HAAGEN, ANGIE Primary Care Unavailable JAMILA LATIF Referring Unavailable HAAGEN, ANGIE Primary Care Unavailable HAAGEN, ANGIE Attending Unavailable HAAGEN, ANGIE Primary Care Unavailable NELSY LAWTON Referring Unavailable HAAGEN, ANGIE Primary Care Unavailable HAAGEN, NAGIE Primary Care Unavailable KARMEN AMADOR Attending Unavailable TACOS, ALBIN Referring Unavailable HAAGEN, ANGIE Referring Unavailable HAAGEN, ANGIE Primary Care Unavailable KARMEN AMADOR Attending Unavailable HAAGEN, ANGIE Primary Care Unavailable KARMEN AMDAOR Attending Unavailable TACOS, ALBIN Referring Unavailable HAAGEN, ANGIE Primary Care Unavailable KARMEN AMADOR Attending Unavailable TACOSALBIN Referring Unavailable HAAGEN, ANGIE Primary Care Unavailable PERRY, KARMEN Attending Unavailable TACOS, ALBIN Referring Unavailable PERRY, KARMEN Attending Unavailable HAAGEN, ANGIE Primary Care Unavailable TACOS, ALBIN Referring Unavailable HAAGEN, ANGIE Referring Unavailable HAAGEN, ANGIE Primary Care Unavailable HAAGEN, ANGIE Primary Care Unavailable HAAGEN, ANGIE Primary Care Unavailable MEAGAN WHITE Referring Unavailable HAAGEN, ANGIE Referring Unavailable HAAGEN, ANGEI Primary Care Unavailable HAAGEN, ANGIE Primary Care Unavailable QUITA BARTH Attending Unavailable HAAGEN, ANGIE Primary Care Unavailable HAAGEN, ANGIE Attending Unavailable HAAGEN, ANGIE Primary Care Unavailable QUITA BARTH Attending Unavailable HAAGEN, ANGIE Referring Unavailable HAAGEN, ANGIE Primary Care Unavailable HAAGEN, ANGIE Primary Care Unavailable HAAGEN, ANGIE Primary Care Unavailable QUITA BARTH Attending Unavailable HAAGEN, ANGIE Referring Unavailable HAAGEN, ANGIE Primary Care Unavailable HAAGEN, ANGIE Attending Unavailable HAAGEN, ANGIE Primary Care Unavailable HAAGEN, ANGIE Attending Unavailable HAAGEN, ANGIE Primary Care Unavailable HAAGEN, ANGIE Primary Care Unavailable QUITA BARTH Attending Unavailable HAAGEN, ANGIE Primary Care Unavailable HAAGEN, ANGIE Primary Care Unavailable HAAGEN, ANGIE Primary Care Unavailable SELF Referring Unavailable QUITA BARTH Attending Unavailable JAMILA LATIF Attending Unavailable HAAGEN, ANGIE Primary Care Unavailable HAAGEN, ANGIE Referring Unavailable HAAGEN, ANGIE Primary Care Unavailable KARMEN AMADOR Attending Unavailable HAAGEN, ANGIE Referring Unavailable HAAGEN, ANGIE Primary Care Unavailable Allergies Allergy Classification Reported Allergen(s) Allergy Type Date of Onset Reaction(s) Facility Alendronate (2 sources) Alendronate Drug Allergy 020 Intolerance [facility] Aminoketones (2 sources) buPROPion Drug Allergy Other: See Comments [facility] Dihydrofolate Reductase Inhibitors (antibiotic) (2 sources) Trimethoprim Drug Allergy [facility] DULoxetine (2 sources) DULoxetine Drug Allergy Other: See Comments [facility] Opioid Agonists (2 sources) traMADol Drug Allergy Other: See Comments [facility] Sulfamethoxazole / Trimethoprim (2 sources) Sulfamethoxazole / Trimethoprim Drug Allergy [facility] Work Phone: Sulfonamides (antibiotic) (2 sources) Sulfamethoxazole Drug Allergy 019 [facility] (1 source) DULoxetine Drug Allergy 017 anxious and couldn't sleep [facility] Work Phone: (3 sources) Shellfish; Translations: [SHELLFISH] allergy to substance 011 [facility] Work Phone: Comment on above: Hives (2 sources) sulfamethoxazole / trimethoprim Drug Allergy 011 [facility] Work Phone: (20 sources) DULoxetine; Translations: [DULoxetine HCl *ANTIDEPRESSANTS*] Drug Allergy Other: See Comments, Tremor [facility] Work Phone: Comment on above: anxious and couldnt sleep (20 sources) Alendronate; Translations: [ALENDRONATE SODIUM] Drug Allergy 020 Intolerance [facility] (20 sources) Sulfamethoxazole / Trimethoprim; Translations: [SULFAMETHOXAZOLE-T RIMETHOPRIM] Drug Allergy [facility] Work Phone: (20 sources) traMADol; Translations: [TRAMADOL] Drug Allergy Other: See Comments [facility] (1 source) Alendronate Drug Allergy 020 Dyspepsia [facility] (20 sources) buPROPion; Translations: [BUPROPION] Drug Allergy Other: See Comments [facility] (20 sources) Sulfamethoxazole; Translations: [SULFAMETHOXAZOLE] Drug Allergy [facility] (20 sources) Trimethoprim; Translations: [TRIMETHOPRIM] Drug Allergy [facility] (4 sources) DULoxetine; Translations: [DULOXETINE] Drug Allergy 022 [facility] Other [facility] (1 source) Alendronate Drug Allergy [facility] (1 source) buPROPion Drug Allergy 025 [facility] (1 source) Sulfamethoxazole Drug Allergy 025 [facility] (1 source) Trimethoprim Drug Allergy [facility] Repository Medications Current Medications Medication Drug Class(es) Dates Sig (Normalized) Sig (Original) acetaminophen 325 mg / HYDROcodone bitartrate 5 mg oral tablet (20 sources) Opioid Agonist Start: 10-31-2024 End: 04-30-2025 take 1 tablet by mouth once daily as needed for pain HYDROcodone-acetam inophen (NORCO) 5-325 mg per tablet Indications: Radiculopathy, lumbar region , Lumbar facet arthropathy , Lumbar spondylosis Take 1 tablet by mouth once daily as needed for pain for up to 30 days. Patient should start on March 31, 2025. 30 tablet 03/31/2025 04/30/2025 Active Start: 06-26-2024 End: 10-25-2024 HYDROcodone-acetaminophen (N ORCO) 5-325 mg per tablet Indications: Radiculopathy, lumbar region , Lumbar facet arthropathy , Lumbar spondylosis Take 1 tablet by mouth once daily as needed for pain for up to 30 days. Patient should start on September 25, 2024. 30 tablet 09/25/2024 10/01/2024 Discontinued Start: 05-22-2024 End: 06-21-2024 take 1 tablet by mouth once daily as needed for pain HYDROcodone-acetaminophen (NORCO) 5-325 mg per tablet Indications: Lumbar facet arthropathy , Lumbar spondylosis , Radiculopathy, lumbar region Take 1 tablet by mouth once daily as needed for pain for up to 30 days. 30 tablet 05/22/2024 06/21/2024 Active Start: 01-06-2024 End: 04-01-2024 take 1 tablet by mouth every six hours as needed for pain HYDROcodone-acetaminophen (NORCO) 5-325 mg per tablet Indications: Hip pain Take 1 tablet by mouth every 6 hours as needed for pain for up to 5 days. 20 tablet 0 03/27/2024 04/01/2024 Active Start: 04-20-2023 End: 04-25-2023 take 1 tablet by mouth every six hours as needed for pain HYDROcodone-acetaminophen (NORCO) 5-325 mg per tablet Indications: Hip pain Take 1 tablet by mouth every 6 hours as needed for pain for up to 5 days. 20 tablet 0 04/20/2023 04/25/2023 Active Start: 08-19-2022 End: 08-26-2022 take 1 tablet by mouth every eight hours as needed for pain HYDROcodone-acetaminophen (NORCO) 5-325 mg per tablet Indications: Hip pain Take 1 tablet by mouth every 8 hours as needed for pain for up to 7 days. 21 tablet 0 08/19/2022 08/26/2022 Active Start: 11-30-2021 End: 12-15-2024 Hydrocodone-Acetaminophen 5- 325 mg tablet Active 1 {tbl} PO 0 May 08, 2024 12:00am Pain Start: 11-30-2021 take 1 tablet by toby th at bedtime Hydrocodone-Acetaminophen Active 1 TABLE T PO AT BEDTIME November 30, 2021 12:00am Start: 09-22-2021 End: 09-29-2021 Hydrocodone-Acetaminophen 5- 325 mg tablet Discontinued 1 {tbl} PO EVERY 6 HOURS as needed for pain 21 7 September 22, 2021 September 28, 2021 1:00am September 29, 2021 1:03am Arthritis Chronic back pain Unspecified osteoarthritis, unspecified site Dorsalgia, unspecified Other chronic pain Start: 09-22-2021 End: 09-29-2021 take 1 tablet by mouth every six hours Hydrocodone-Acetaminophen Discontinued 1 TABLET PO EVERY 6 HOURS 7 September 22, 2021 September 29, 2021 1:03am Start: 05-07-2019 End: 01-07-2021 Hydrocodone-Acetaminophen 5- 325 mg tablet Discontinued 1 {tbl} PO EVERY 6 HOURS as needed for pain 21 0 December 13, 2019 August 26, 2020 10:55am Dorsalgia, unspecified Start: 05-07-2019 End: 01-07-2021 take 1 tablet by mouth every six hours Hydrocodone-Acetaminophen Discontinued 1 TABLET PO EVERY 6 HOURS December 13, 2019 August 26, 2020 10:55am Start: 02-12-2013 End: 01-28-2015 take 1 tablet by mouth every six hours as needed VICODIN, 5-300MG (Oral Tablet) 1 Tablet q 6 hours prn for 0 days Quantity: 60 {Tablet} Refills: 0 Ordered: 28-Jan-2015 Dorothea Chapa Start : 12-Feb-2013 End : 28-Jan-2015 Discontinued Comments: sixty Start: 03-04-2008 End: 04-05-2008 take 1-2 tablets by mouth once as needed, then take 6 tablets by mouth as needed VICODIN, 5-500MG (Oral Tablet) 1-2 Table t q 6 prn for 0 days Quantity: 60 {Tablet} Refills: 0 Ordered: 04-Mar-2008 Dorothea Chapa Start : 04-Mar-2008 End : 05-Apr-2008 Inactive End: 07-26-2022 HYDROcodone-acetaminophen (N ORCO) 5-325 mg per tablet hydrocodone 5 mg-acetaminophen 325 mg tablet 0 07/26/2022 Discontinued Comment on above: sixty hydrocodone 5 mg-berkley taminophen 325 mg tablet Take 1 tablet by toby th every 8 hours as needed for pain for up to 7 days. Take 1 tablet by toby th every 6 hours as needed for pain for up to 5 days. [id number] 200 actuat albuterol 0.09 mg/actuat metered dose inhaler (20 sources) beta2-Adrenergic Agonist Start: 2 End: 4 take 2 puff(s) by inhalation every four hours as needed for wheezing albuterol HFA (VENTOLIN HFA) 90 mcg/actuation inhaler Indications: Cough Inhale 2 Puffs as instructed every 4 hours as needed for wheezing/shortness of breath. 1 Each 11 07/23/2024 Active Start: 02-14-2020 End: 06-30-2023 Albuterol Sulfate 90 mcg/act uation HFA aerosol inhaler Discontinued 2 NMA INHALATION Q4H as needed for shortness of breath or wheezing 08 27July 07, 2020 12:20pm June 30, 2023 10:37am administer with spacer Start: 02-14-2020 End: 07-07-2020 take 1 puff(s) by inhalation every four hours Albuterol Sulfate Active 2 PUFF INHALATION Q4H July 07, 2020 12:20pm administer with spacer Start: 05-07-2019 End: 02-14-2020 Albuterol Sulfate 90 mcg/act uation HFA aerosol inhaler Discontinued 2 NMA INHALATION EVERY 6 HOURS as needed for shortness of breath or wheezing 1 May 07, 2019 10:01am February 14, 2020 8:39am administer with spacer Start: 05-07-2019 End: 02-14-2020 take 1 puff(s) by inhalation every six hours Albuterol Sulfate Discontinued 2 PUFF INHALATION EVERY 6 HOURS May 07, 2019 10:01am February 14, 2020 8:39am administer with spacer Start: 10-13-2017 End: 05-07-2019 Albuterol Sulfate 90 mcg/act uation HFA aerosol inhaler Discontinued 2 NMA INHALATION EVERY 6 HOURS as needed for shortness of breath or wheezing 1 October 13, 2017 1:00am May 07, 2019 10:01am administer with spacer Start: 10-13-2017 End: 05-07-2019 take 1 puff(s) by inhalation every six hours Albuterol Sulfate Discontinued 2 PUFF INHALATION EVERY 6 HOURS October 13, 2017 1:00am May 07, 2019 10:01am administer with spacer Start: 03-03-2017 PROVENTIL HFA 108 (90 Base) MCG/ACT AERS 2 Inhalation four times a day as needed ALBUTEROL SULFATE [id number] Alice Bassett Start: 02-02-2016 PROVENTIL HFA, 108 (90 Base)MCG/ACT (Inhalation Aerosol Solution) 2 (two) Aerosol Soln qid prn for 30 days Quantity: 1 {Inhaler} Refills: 3 Ordered: 02-Feb-2016 Fast DO, Rakel A Fast DO, Rakel A Start : 02-Feb-2016 Active Start: 10-15-2011 End: 06-06-2017 PROVENTIL HFA 108 (90 Base) MCG/ACT AERS ALBUTEROL SULFATE [id number] Carmina Grissom MD Start: 08-27-2010 End: 01-19-2012 ALBUTEROL SULFATE, (2.5 MG/3ML)0.083% (Inhalation Nebulization Solution) 1 Nebulized Soln q 4-6 hr prn for 0 days Quantity: 1 {Nebulized_Soln} Refills: 1 Ordered: 19-Jan-2012 Dorothea Chapa Start : 27-Aug-2010 End : 19-Jan-2012 Inactive Comments: dispense one box albuterol sulfat e 90 mcg/actuation aepb Inhale as instructed as needed. 0 Active albuterol (PROVE NTIL HFA) 108 (90 BASE) MCG/ACT IN AERS Indications: Back pain , Facet arthropathy, lumbar , Degenerative disc disease, lumbar take by inhalation as needed. 0 Active Comment on above: dispense one box Inhale as instructed as needed. Inhale 2 Puffs as in structed every 4 hours as needed for wheezing/shortness of breath. albuterol 0.833 mg/ml / ipratropium bromide 0.167 mg/ml inhalation solution (20 sources) Anticholinergic, beta2-Adrenergic Agonist Start: take 3 mL by inhalation every six hours as needed ipratropium-albute rol (DUONEB) 0.5 mg-3 mg(2.5 mg base)/3 mL nebu Inhale 3 mL as instructed every 6 hours as needed. 12/20/2024 Active Start: 12-18-2024 End: 12-20-2024 take 1 mL by inhalation every four hours as needed for wheezing Ipratropium-Albuterol 0.5 mg-3 mg(2.5 mg base)/3 mL solution for nebulization Active 3 mL INHALATION EVERY 4 HOURS NEEDED as needed for SOB &/OR WHEEZING 180 December 20, 2024 10:13am Chronic obstructive pulmonary disease Chronic obstructive pulmonary disease, unspecified aspirin 81 mg chewable tablet (2 sources) Platelet Aggregation Inhibitor, Nonsteroidal Anti-inflammatory Drug Start: 07-28-2017 aspirin 81 MG Fátima w Tab chewable tablet Chew 1 tablet daily. Once Plavix has been resumed please stop taking this medication 1 tablet 0 07/28/2017 Active End: 01-18-2007 take 1 mg by mouth once daily ASPIRIN, 325MG (Oral Tab let) 1 QD for 0 days Refills: 0 Ordered: 20-Sep-2007 Jayshree Mckeon LPN End : 18-Jan-2007 Discontinued Comments: d/t starting Plavix Comment on above: d/t starting Plavix azelastine hydrochloride 0.137 mg/actuat metered dose nasal spray (20 sources) Histamine-1 Receptor Antagonist Start: 01-08-2025 Azelastine 137 mcg (0.1 %) spray,non-aerosol Active 1 NMA INTRANASAL TWICE A DAY 21 07January 08, 2025 12:00am administer into each nostril Start: 07-19-2020 End: 08-27-2022 Azelastine 205.5 mcg (0.15 % ) spry Start: 01-12-2018 End: 06-16-2023 Azelastine 137 mcg (0.1 %) aerosol,spray Discontinued 1 NMA INTRANASAL TWICE A DAY 21 07December 02, 2022 9:16am June 16, 2023 1:40pm [email or web address]Yunait Start: 01-12-2018 End: 06-16-2023 Azelastine Discontinued 1 SP RAY INTRANASAL TWICE A DAY December 02, 2022 9:16am June 16, 2023 1:40pm [email or web address] Start: 01-10-2018 End: 01-12-2018 Azelastine 0.15 % (205.5 mcg ) spray,non-aerosol Discontinued 1 NMA INTRANASAL TWICE A DAY 18 02January 10, 2018 12:00am January 12, 2018 3:13pm administer into each nostril Start: 01-10-2018 End: 01-12-2018 take 1 spray(s) nasal route twice daily Azelastine Discontinued 1 SPRAY INTRANASAL TWICE A DAY January 10, 2018 12:00am January 12, 2018 3:13pm administer into each nostril End: 05-25-2022 azelastine (ASTELIN,ASTEPRO) 0.1% nasal spray azelastine 137 mcg (0.1 %) nasal spray aerosol 0 05/25/2022 Discontinued (Course of therapy completed) AZELASTINE HCL N A 1 spray by Nasal route 2 times daily. 0 Active Comment on above: azelastine 137 mcg ( 0.1 %) nasal spray aerosol cephalexin 500 mg oral capsule (1 source) Cephalosporin Antibacterial Start: 5 End: 5 take 1 capsule by mouth three times daily cephALEXin (KEFLEX) 500 mg capsule Indications: Cellulitis of skin Take 1 capsule by mouth three times a day for 10 days. 30 capsule 12/04/2024 12/14/2024 Active clopidogrel 75 mg oral tablet (20 sources) P2Y12 Platelet Inhibitor Start: 7 End: 4 take 1 tablet by mouth once daily clopidogrel (PLAVIX) 75 mg tablet Indications: Other cerebral infarction (HCC) Take 1 tablet by mouth once daily. NCPDP ID: [id number] [email or web address] 90 tablet 3 03/01/2024 Active PLAVIX TABS CLOP IDOGREL BISULFATE TABS [id number] Bong Welch DO Comment on above: Mail order. Take one(1) tablet d aily. Take 1 tablet by once daily. NCPDP ID: [id number] [email or web address] 1 ml denosumab 60 mg/ml prefilled syringe (20 sources) RANK Ligand Inhibitor Start: 03-13-2025 End: 03-07-2026 denosumab 60 mg injection (PROLIA) Start: 03-13-2025 End: 03-07-2026 60 mg, SUBCUTANEOUS, EVERY 6 MONTHS, 2 doses, First dose on Tue03/13/25 at 0000, Last dose on Tue09/09/25 at 0000, Allow To Come To Room Temperature Before Administration. REFRIGERATE Start: 03-13-2024 End: 09-13-2024 60 mg, SUBCUTANEOUS, EVERY 6 MONTHS, 2 doses, First dose on Tue03/13/24 at 0000, Last dose on Tue09/09/24 at 0000, Allow To Come To Room Temperature Before Administration. REFRIGERATE Start: 03-13-2024 End: 03-07-2025 denosumab 60 mg injection (P ROLIA) Start: 03-10-2023 End: 03-03-2024 denosumab 60 mg injection (P ROLIA) Start: 01-22-2022 End: 01-17-2023 denosumab 60 mg injection (P ROLIA) Start: 08-29-2018 End: 08-19-2020 Denosumab (Prolia) 60 mg/mL syringe Active 60 mg SC every 6 months 1 August 19, 2020 12:56pm cholesterol Start: 01-13-2018 End: 05-05-2018 Denosumab (Prolia) 60 mg/mL syringe Discontinued 60 mg SC every 6 months 08 25January 13, 2018 12:00am May 05, 2018 1:36pm Start: 12-29-2015 End: 03-22-2016 Prolia 60 MG/ML Subcutaneous Solution 1 (one) Milliliter once every 6 months for 0 days Quantity: 1 {Pre-filled_Pen_Syringe} Refills: 1 Ordered: 22-Mar-2016 ОЛЬГА Wang Start : 29-Dec-2015 End : 22-Mar-2016 Inactive End: 04-17-2024 inject 60 mg by subcutaneous injection once denosumab (PROLIA) 60 mg/mL syrg Inject 60 mg subcutaneously one time only. 04/17/2024 Discontinued Comment on above: Inject 60 mg subcuta neously one time only. [email or web address] 5 mg oral tablet (1 source) Benzodiazepine Start: 08-04-20 17 take 1 tablet by mouth every six hours as needed diazepam 5 MG Tab tablet Take 1 tablet by mouth every 6 hours as needed for Muscle spasms. 30 tablet 0 08/04/2017 Active docusate sodium 100 mg oral capsule (1 source) Start: 07-28-20 17 take 2 capsules by mouth twice daily docusate 100 MG Cap Take 2 capsules by mouth 2 times daily. Hold for loose stools 60 capsule 0 07/28/2017 Active doxycycline hyclate 100 mg oral tablet (9 sources) Tetracycline-class Drug Start: 01-27-20 End: 02-01-20 24 take 1 tablet by mouth twice daily doxycycline (VIBRA-TABS) 100 mg tablet Indications: Acute non-recurrent sinusitis, unspecified location Take 1 tablet by mouth two times a day for 5 days. 10 tablet 0 01/27/2024 02/01/2024 Active Start: 02-25-2021 End: 03-25-2021 take 1 tablet by mouth twice daily Doxycycline Hyclate 100 mg tablet Discontinued 100 mg PO TWICE A DAY 20 0 February 25, 2021 12:00am March 25, 2021 4:19pm DULoxetine 30 mg delayed release oral capsule (9 sources) Serotonin and Norepinephrine Reuptake Inhibitor Start: 04-04-2020 take 1 capsule by mouth twice daily DULoxetine (Cymbalta) [address] Particles capsule DR Take 1 capsule by mouth 2 times daily. 60 capsule 3 04/04/2020 Active Start: 02-14-2020 End: 03-04-2020 take 1 capsule by mouth once daily Duloxetine 30 mg capsule, delayed rel sprinkle Discontinued 30 mg PO DAILY February 14, 2020 12:00am March 04, 2020 8:34am Start: 04-19-2016 End: 05-28-2016 take 7 capsules by mouth once in the morning DULoxetine HCl 30 MG Oral Capsule Delayed Release Particles 1 (one) Capsule DR Part q am for 0 days Quantity: 30 {Capsule} Refills: 3 Ordered: 28-May-2016 Dorothea Chapa Start : 19-Apr-2016 End : 28-May-2016 Discontinued 30 actuat fluticasone furoate 0.2 mg/actuat dry powder inhaler (20 sources) Corticosteroid Start: 11-13-2024 take 1 puff(s) by inhalation once daily ARNUITY ELLIPTA 200 mcg/actuation inhaler Inhale 1 puff as instructed once daily. 11/13/2024 Active Start: 10-31-2024 End: 01-08-2025 take 200 ug by inhalation once daily Fluticasone Furoate (Arnuity Ellipta) 200 mcg/actuation blister with device Discontinued 1 NMA INHALATION daily 3 October 31, 2024 12:00am January 08, 2025 10:17am administer at approximately the same time(s) each day Start: 10-31-2024 End: 01-08-2025 take 200 ug by inhalation once daily Fluticasone Furoate (Arnuity Ellipta) 200 mcg/actuation blister with device Discontinued 1 NMA INHALATION daily October 31, 2024 12:00am January 08, 2025 10:17am administer at approximately the same time(s) each day Start: 09-22-2022 End: 09-22-2022 Fluticasone Propionate (Flov ent Diskus) 250 mcg/actuation blister with device Discontinued 1 NMA INHALATION TWICE A DAY 60 September 22, 2022 1:00am September 22, 2022 3:51pm Start: 09-22-2022 End: 09-22-2022 Fluticasone Propionate (Flov ent Diskus) 250 mcg/actuation blister with device Discontinued 1 NMA INHALATION TWICE A DAY September 22, 2022 1:00am September 22, 2022 3:51pm Start: 09-22-2022 End: 09-22-2022 Fluticasone Propionate (Flov ent Diskus) 250 mcg/actuation blister with device Discontinued 1 INH INHALATION TWICE A DAY September 22, 2022 1:00am September 22, 2022 3:51pm Start: 03-03-2021 End: 06-11-2022 Fluticasone Propionate (Flov ent Hfa) 220 mcg/actuation HFA aerosol inhaler Discontinued 2 INH INHALATION TWICE A DAY June 02, 2021 8:36am June 11, 2022 10:39am Start: 11-17-2018 End: 12-16-2021 FLOVENT HFA 220 mcg/actuatio n inhaler Start: 09-20-2018 End: 06-11-2022 Fluticasone Propionate (Flov ent Hfa) 220 mcg/actuation HFA aerosol inhaler Discontinued 2 NMA INHALATION TWICE A DAY 07 27March 03, 2021 9:34am June 02, 2021 8:36am Start: 09-20-2018 End: 03-03-2021 take 1 puff(s) by inhalation twice daily Fluticasone Propionate (Flovent Hfa) 220 mcg/actuation HFA aerosol inhaler Discontinued 1 PUFF INHALATION TWICE A DAY November 08, 2019 11:42am February 14, 2020 8:39am Start: 09-19-2017 Fluticasone Pr opionate (Flonase Allergy Relief) 50 mcg/actuation spray,suspension Active 1 NMA INTRANASAL TWICE A DAY as needed for allergies September 19, 2017 1:00am Start: 09-19-2017 Fluticasone Pr opionate (Flonase Allergy Relief) 50 mcg/actuation spray,suspension Active 1 SPRAY INTRANASAL TWICE A DAY September 19, 2017 1:00am Start: 08-18-2017 End: 09-15-2017 Fluticasone Propionate (Flov ent Diskus) 250 mcg/actuation blister with device Discontinued 1 INH INHALATION TWICE A DAY August 18, 2017 1:00am September 15, 2017 2:34pm Start: 03-03-2017 FLOVENT DISKUS 250 MCG/BLIST AEPB bid FLUTICASONE PROPIONATE (INHAL) [id number] Alice Bassett Start: 10-25-2016 End: 09-15-2017 Fluticasone Propionate (Flov ent Diskus) 250 mcg/actuation blister with device Discontinued 1 NMA INHALATION TWICE A DAY August 18, 2017 1:00am September 15, 2017 2:34pm Start: 08-07-2013 End: 09-06-2013 take 2 spray(s) nasal route once daily FLUTICASONE PROPIONATE, 50MCG/ACT (Nasal Suspension) 2 (two) [place](s) each nostril qd for 90 days Quantity: 3 {Suspension} Refills: 3 Ordered: 19-Oct-2013 Miki DO, Rakel A Fast DO, Rakel A Start : 07-Aug-2013 End : 06-Sep-2013 Inactive Comments: Mail order. End: 08-27-2022 FLUTICASONE FUROATE NASAL Us e 1 [place] in the nose twice daily as needed. 0 08/27/2022 Discontinued (Course of therapy completed) FLUTICASONE FURO ATE NASAL Use 1 [place] in the nose twice daily as needed. 0 Active take 2 puff(s) by in halation twice daily fluticasone 44 MCG/ACT Aerosol inhaler Inhale 2 puffs 2 times daily. 0 Active Comment on above: Mail order. Use 1 [place] in the n ose twice daily as needed. Fluticasone Furoate (Arnuity Ellipta) 200 mcg/actuation blister with device (1 source) Start: 5 take 200 ug by inhalation once daily Fluticasone Furoate (Arnuity Ellipta) 200 mcg/actuation blister with device Active 1 NMA INHALATION daily 3 3 April 09, 2025 12:00am Cough Cough, unspecified administer at approximately the same time(s) each day 12 hr guaiFENesin 1200 mg extended release oral tablet (14 sources) Start: 3 End: 4 take 1 tablet by mouth twice daily, then take 1 tablet by mouth every twelve hours Guaifenesin (Mucinex) 1,200 mg tablet extended release 12hr Active 1,200 mg PO TWICE A DAY May 08, 2024 12:00am Congestion Start: 05-08-2019 End: 01-07-2021 take 1 tablet by mouth twice daily as needed for cough, then take 1 tablet by mouth every twelve hours as needed for cough Guaifenesin (Mucinex) 1,200 mg tablet extended release 12hr Discontinued 1200 mg PO TWICE A DAY as needed for cough May 08, 2019 12:00am January 07, 2021 10:28am Segmental and somatic dysfunction of cervical region guaiFENesin / Phenylephrine (20 sources) alpha-1 Adrenergic Agonist guaifenesin/phenylep hrine HCl (MUCINEX COLD ORAL) Take by mouth. Active guaifenesin/phen ylephrine HCl (MUCINEX COLD ORAL) Take by mouth. 0 Active Comment on above: Take by mouth. lactobacillus rhamnosus gg [id number] unt oral capsule (4 sources) Start: 06-16-20 23 take 10 capsules by mouth twice daily Lactobacillus Rhamnosus Gg (Culturelle) 10 billion cell capsule Active 1 NMA PO TWICE A DAY June 16, 2023 12:00am lactulose 667 mg/ml oral solution (1 source) Osmotic Laxative Start: 08-02-20 17 take 15 mL by mouth three times daily lactulose 10 GM/15ML Solution oral solution Take 15 mL by mouth 3 times daily. Max of 40gm/day 1 Bottle 0 08/02/2017 Active lansoprazole 30 mg delayed release oral capsule (20 sources) Proton Pump Inhibitor Start: 10-05-19 25 take 1 capsule by mouth once daily lansoprazole (PREVACID) 30 mg capsule Take 1 capsule by mouth once daily. 90 capsule 1 10/05/2024 Active Start: 06-16-2023 End: 11-30-2023 take 1 capsule by mouth once daily in the evening Lansoprazole 15 mg capsule,delayed release(DR/EC) Active 15 mg PO EVERY EVENING June 16, 2023 12:00am acid reflux Start: 06-30-2022 End: 06-06-2023 take 1 capsule by mouth once daily lansoprazole (PREVACID) 15 mg capsule Indications: Cough Take 1 capsule by mouth once daily. 90 capsule 1 09/15/2022 06/06/2023 Discontinued Start: 06-11-2022 End: 05-18-2023 Lansoprazole 30 mg capsule,d elayed release(DR/EC) Discontinued 0 PO DAILY June 11, 2022 10:24am May 18, 2023 9:53am 15mg orally daily; Start: 06-11-2022 End: 05-18-2023 take 15 mg by mouth once daily Lansoprazole Discontinu ed 0 PO DAILY June 11, 2022 10:24am May 18, 2023 9:53am 15mg orally daily; Start: 02-08-2022 End: 05-25-2022 take 1 capsule by mouth once daily lansoprazole (PREVACID) 15 mg capsule Indications: Cough Take 1 capsule by mouth once daily. 30 capsule 2 02/08/2022 05/25/2022 Discontinued (Course of therapy completed) Start: 07-02-2019 End: 06-11-2022 take 1 capsule by mouth once daily Lansoprazole 30 mg capsule,delayed release(DR/EC) Discontinued 30 mg PO DAILY 90 2 December 03, 2020 9:21am June 11, 2022 10:25am Start: 10-09-2007 End: 03-04-2008 take 1 capsule by mouth once daily PREVACID, 30MG (Oral Capsule Delayed Release) 1 (one) Capsule DR qd for 0 days Quantity: 30 {Capsule_DR} Refills: 3 Ordered: 09-Oct-2007 Stephani Rivera LPN Start : 09-Oct-2007 End : 04-Mar-2008 Inactive Comment on above: Take 1 capsule by mo [facility] once daily. loratadine 10 mg oral tablet (20 sources) Start: 2 End: 2 take 1 tablet by mouth once daily as needed Loratadine (Claritin) 10 mg tablet Active 10 mg PO DAILY as needed for seasonal allergies November 30, 2021 12:00am Comment on above: Take 10 mg by mouth as needed. losartan potassium 50 mg oral tablet (20 sources) Angiotensin 2 Receptor Jeb Start: 2 End: 5 take 1 tablet by mouth once daily losartan (COZAAR) 50 mg tablet Indications: Primary hypertension TAKE 1 & 1/2 (ONE & ONE-HALF) TABLETS BY MOUTH ONCE DAILY 145 tablet 1 01/30/2025 Active Start: 09-17-2021 take 1 tablet by [facility] once daily losartan (COZAAR) 50 mg tablet TAKE 1 & 1/2 (ONE & ONE-HALF) TABLETS BY MOUTH ONCE DAILY 0 09/17/2021 Active Start: 08-26-2020 take 1.5 tablets by mouth once daily losartan 50 MG tablet Take 1.5 tablets by mouth daily. 0 08/26/2020 Active Start: 08-26-2020 End: 06-16-2023 Losartan 50 mg tablet Discon tinued 75 mg PO DAILY 135 90 2 2021 11:53am June 16, 2023 1:52pm Start: 08-26-2020 End: 06-16-2023 take 75 mg by mouth once daily Losartan Discontinued 7 5 MG PO DAILY 135 90 2021 11:53am June 16, 2023 1:52pm Start: 07-23-2020 End: 08-26-2020 take 1 tablet by mouth once daily Losartan 50 mg tablet Discontinued 50 mg PO DAILY 30 July 23, 2020 1:00am August 26, 2020 9:44am Comment on above: TAKE 1 & 1/2 (ONE & ONE-HALF) TABLETS BY MOUTH ONCE DAILY methocarbamol 500 mg oral tablet (20 sources) Muscle Relaxant Start: take 1 tablet by mouth twice daily as needed Methocarbamol 500 mg tablet Active 500 mg PO TWICE A DAY as needed April 09, 2025 12:00am Start: 01-28-2025 End: 03-29-2025 take 1 tablet by mouth twice daily as needed methocarbamol (ROBAXIN) 500 mg tablet Indications: Lumbar facet arthropathy , Lumbar spondylosis Take 1 tablet by mouth two times a day as needed. 60 tablet 1 01/28/2025 03/29/2025 Start: 06-26-2024 End: 08-25-2024 take 1 tablet by mouth twice daily as needed methocarbamol (ROBAXIN) 500 mg tablet Indications: Lumbar facet arthropathy , Lumbar spondylosis Take 1 tablet by mouth two times a day as needed. 60 tablet 1 06/26/2024 08/25/2024 Active Start: 12-27-2023 End: 02-25-2024 take 1 tablet by mouth twice daily as needed methocarbamol (ROBAXIN) 500 mg tablet Indications: Lumbar spondylosis , Lumbar facet arthropathy Take 1 tablet by mouth two times a day as needed. 60 tablet 1 12/27/2023 02/25/2024 Start: 11-23-2022 End: 11-27-2023 take 1 tablet by mouth every twelve hours as needed methocarbamol (ROBAXIN) 500 mg tablet Take 1 tablet by mouth two times a day as needed. 60 tablet 05/30/2023 10/28/2023 Discontinued (Course of therapy completed) Comment on above: Take 1 tablet by toby th twice daily as needed. Take 1 tablet by toby th two times a day as needed. Take 500 mg by mouth two times a day as needed. Multiple Vitamins-Minerals (ZINC PO) (1 source) take 1 tablet by mouth twice daily Multiple Vitamins-Minerals (ZINC PO) Take 1 tablet by mouth 2 times daily. 0 Active mupirocin 0.02 mg/mg topical ointment (1 source) RNA Synthetase Inhibitor Antibacterial Start: End: mupirocin (BACTROBAN) 2 % ointment Indications: Cellulitis of skin Apply 1 application to affected area once daily for 10 days. 22 g 12/04/2024 12/14/2024 Active pravastatin sodium 20 mg oral tablet (20 sources) HMG-CoA Reductase Inhibitor Start: take 1 tablet by mouth once daily Pravastatin 20 mg tablet Active 20 mg PO daily April 09, 2025 12:00am Start: 04-03-2025 take 1 tablet by toby th once daily pravastatin (PRAVACHOL) 20 mg tablet Take 1 tablet by mouth once daily. 30 tablet 3 04/03/2025 Active Start: 11-28-2024 End: 04-09-2025 take 1 tablet by mouth once daily pravastatin (PRAVACHOL) 10 mg tablet Indications: Hyperlipidemia, unspecified hyperlipidemia type Take 1 tablet by mouth once daily. 30 tablet 3 03/22/2025 04/03/2025 Discontinued (Dosage adjustment) End: 09-29-2006 take 1 tablet by mouth once daily PRAVACHOL, 20MG (Oral Tablet) 1 QD for 0 days Refills: 0 Ordered: 20-Sep-2007 Jayshree Mckeon LPN End : 29-Sep-2006 Discontinued rosuvastatin calcium 5 mg oral tablet (20 sources) HMG-CoA Reductase Inhibitor Start: 04-17-2025 take 1 tablet by mouth once daily at bedtime rosuvastatin (CRESTOR) 5 mg tablet Take 1 tablet by mouth daily at bedtime. 90 tablet 3 04/17/2025 Active Start: 03-04-2020 End: 12-15-2024 take 1 tablet by mouth once daily Rosuvastatin 5 mg tablet Discontinued 5 mg PO DAILY 90 3 April 09, 2021 4:29pm June 16, 2023 1:52pm Start: 06-25-2019 End: 10-01-2019 take 1 tablet by mouth once daily Rosuvastatin 5 mg tablet Discontinued 5 mg PO DAILY 30 June 25, 2019 1:00am October 01, 2019 9:33am Start: 08-18-2017 End: 02-15-2019 take 1 tablet by mouth once daily Rosuvastatin (Crestor) 5 mg tablet Discontinued 5 mg PO daily 90 September 18, 2018 12:44pm February 15, 2019 4:33pm Start: 06-06-2017 take 1 tablet by toby th once daily CRESTOR 5 MG TABS One tablet by mouth daily ROSUVASTATIN CALCIUM [id number] Carmina Grissom MD Start: 12-10-2016 take 1 tablet by toby th once daily Crestor 10 MG Oral Tablet 1 (one) Tablet Tablet qd for 0 days Quantity: 90 {Tablet} Refills: 3 Ordered: 10-Dec-2016 Fast DO, Rakel A Fast DO, Rakel A Start : 10-Dec-2016 Active Start: 07-19-2016 End: 07-19-2016 take 1 tablet by mouth once daily Crestor 5 MG Oral Tablet 1 (one) Tablet qd for 0 days Quantity: 30 {Tablet} Refills: 3 Ordered: 19-Jul-2016 Fast DO, Rakel Rogerio Fast DO, Rakel A Start : 19-Jul-2016 End : 19-Jul-2016 Discontinued CRESTOR TABS ROS UVASTATIN CALCIUM TABS [id number] Bong Welch DO Comment on above: Take 5 mg by mouth o nce daily. Take 1 tablet by toby th once daily. sennosides, mcfp 17.2 mg oral tablet (1 source) Start: 07-28-2017 take 1 tablet by mouth twice daily senna 17.2 MG Tab Take 1 tablet by mouth 2 times daily. Hold for loose stools 60 tablet 0 07/28/2017 Active spacer (3 sources) Start: 09-05-2023 spacer Active 0 .ROUTE .MEDSUPPLY 1 0 September 05, 2023 1:00am As directed Start: 09-05-2023 spacer Active 0 .ROUTE .MEDSUPPLY 1 September 05, 2023 1:00am As directed levothyroxine sodium 0.088 mg oral tablet (20 sources) l-Thyroxine Start: 05-08-2024 take 1 capsule by mouth once daily Levothyroxine 88 mcg capsule Active 88 ug PO daily May 08, 2024 12:00am Start: 06-30-2023 End: 05-08-2024 Levothyroxine 88 mcg tablet Discontinued 112 ug PO DAILY June 30, 2023 10:14am May 08, 2024 11:24am thyroid Start: 11-26-2022 End: 02-25-2025 take 1 tablet by mouth once daily for thyroid dysfunction levothyroxine (LEVOXYL) 88 mcg tablet Take 1 tablet by mouth once daily. Take on empty stomach. For Thyroid 90 tablet 3 02/25/2025 Active Start: 11-26-2022 End: 11-26-2022 take 1 tablet by mouth once daily for thyroid dysfunction levothyroxine (LEVOXYL) 100 mcg tablet Indications: Post-surgical hypothyroidism Take 1 tablet by mouth once daily. Take on empty stomach. For Thyroid. 30 tablet 3 11/26/2022 11/26/2022 Discontinued (Other) Start: 08-18-2017 End: 10-14-2017 Levothyroxine (Synthroid) 11 2 mcg tablet Discontinued PO 0 August 18, 2017 1:00am October 14, 2017 11:47am Start: 03-23-2006 End: 06-16-2023 take 1 tablet by mouth once daily in the morning Levothyroxine (Synthroid) 112 mcg tablet Discontinued 112 ug PO EVERY MORNING 90 3 August 03, 2021 1:07pm August 25, 2021 10:41am Comment on above: PATRIA, PATRIA Take one(1) tablet d aily except tuesday Take 1 tablet by toby th once daily. Take 1 tablet by toby th once daily. Take on empty stomach. For Thyroid Take 1 tablet by toby th once daily. Take on empty stomach. For Thyroid. Completed/Discontinued Medications Medication Drug Class(es) Dates Sig (Normalized) Sig (Original) acetaminophen 325 mg oral tablet (20 sources) Start: 08-18-2017 End: 06-16-2023 Acetaminophen (Tylenol) 325 mg tablet Discontinued 500 mg PO EVERY 6 HOURS as needed August 18, 2017 1:00am June 16, 2023 1:49pm take 1 tablet by toby th every eight hours as needed acetaminophen (TYLENOL) 500 mg tablet Ta ke 500 mg by mouth every 8 hours as needed. Active Comment on above: Take 500 mg by mouth every 8 hours as needed. acetaminophen 325 mg / oxyCODONE hydrochloride 5 mg oral tablet (8 sources) Opioid Agonist Start: 12-10-2016 take 1 tablet by mouth every six hours as needed Percocet 5-325 MG Oral Tablet 1 (one) Tablet Tablet q 6 hr prn for 0 days Quantity: 20 {Tablet} Refills: 0 Ordered: 10-Dec-2016 Fast DO, Rakel A Fast DO, Rakel A Start : 10-Dec-2016 Active Comments: twenty Start: 06-28-2014 End: 08-18-2017 Oxycodone-Acetaminophen 1 TA BLET tablet Discontinued 1 - 2 {tbl} PO EVERY 4 HOURS NEEDED as needed for Pain June 28, 2014 1:00am August 18, 2017 1:05pm Start: 06-28-2014 End: 08-18-2017 take 1 tablet by mouth every four hours as needed Oxycodone-Acetaminophen Discontinued 1 - 2 TABLET PO EVERY 4 HOURS NEEDED June 28, 2014 1:00am August 18, 2017 1:05pm Comment on above: twenty alendronic acid 35 mg oral tablet (7 sources) Bisphosphonate Start: 05-05-2018 End: 07-06-2018 take 1 tablet by mouth every week Alendronate 35 mg tablet Discontinued 35 mg PO EVERY WEEK May 05, 2018 12:00am July 06, 2018 3:37pm ALFALFA TABS (2 sources) ALFALFA TABS [facility] NILDA TABS [id number] Bong Welch DO End: 03-03-2017 ALFALFA TABS NILDA LFA TABS [id number] Alice Bassett ALFALFA, 250MG (Oral Tablet) (1 source) End: 04-30-2014 take 6 tablets by mouth once daily ALFALFA, 250MG (Oral Tablet) 6 tabs qd (250 MG) End : 30-Apr-2014 Discontinued amitriptyline hydrochloride 10 mg oral tablet (20 sources) Tricyclic Antidepressant Start: 01-26-2024 End: 07-17-2024 take 2 tablets by mouth once daily at bedtime amitriptyline (ELAVIL) 10 mg tablet Indications: Lumbosacral radiculitis Take 2 tablets by mouth daily at bedtime. 60 tablet 2 01/26/2024 07/17/2024 Discontinued Start: 12-26-2023 End: 01-26-2024 take 1 tablet by mouth once daily at bedtime amitriptyline (ELAVIL) 25 mg tablet Take 1 tablet by mouth daily at bedtime. 30 tablet 2 12/26/2023 01/26/2024 Discontinued Start: 11-28-2023 take 2 tablets by mo uth once daily at bedtime amitriptyline (ELAVIL) 10 mg tablet Take 2 tablets by mouth daily at bedtime. 60 tablet 1 11/28/2023 Active Start: 10-31-2023 End: 12-15-2024 take 1 tablet by mouth at bedtime Amitriptyline 10 mg tablet Discontinued 10 mg PO AT BEDTIME November 02, 2023 12:00am December 15, 2024 11:13am Comment on above: Take 1 tablet by toby th daily at bedtime. Take 2 tablets by mo uth daily at bedtime. amLODIPine 5 mg oral tablet (14 sources) Dihydropyridine Calcium Channel Jeb Start: 06-03-20 End: 07-23-20 take 1 tablet by mouth once daily Amlodipine 5 mg tablet Discontinued 5 mg PO DAILY 20 09July 08, 2020 10:37am July 23, 2020 12:06pm amoxicillin 25 mg/ml / clavulanate 6.25 mg/ml oral suspension (20 sources) Penicillin-class Antibacterial Start: 12-19-19 End: 01-29-20 amoxicillin-clavulan ic acid (AUGMENTIN) 125-31.25 mg/5 mL suspension Take 500 mg by mouth once daily. 12/18/2024 01/28/2025 Discontinued (Course of therapy completed) Start: 12-18-2024 End: 12-28-2024 Amoxicillin-Pot Clavulanate 875-125 mg tablet Discontinued 1 {tbl} PO TWICE A DAY December 18, 2024 12:00am December 27, 2024 12:00am December 28, 2024 12:08am Fever Fever, unspecified Start: 04-04-2024 End: 04-14-2024 take 1 tablet by mouth twice daily amoxicillin-clavulanate potassium (AUGMENTIN) 875-125 mg per tablet Take 1 tablet by mouth two times a day for 10 days. 20 tablet 04/04/2024 04/14/2024 Active Start: 06-18-2023 End: 06-30-2023 Amoxicillin-Pot Clavulanate 875-125 mg tablet Discontinued 1 {tbl} PO TWICE A DAY 10 June 18, 2023 12:00am June 30, 2023 10:13am Start: 06-18-2023 take 1 tablet by toby th twice daily Amoxicillin-Pot Clavulanate Active 1 TABLET PO TWICE A DAY 10 June 18, 2023 12:00am Start: 09-20-2018 End: 12-05-2018 Amoxicillin-Pot Clavulanate (Augmentin) 875-125 mg tablet Discontinued 1 {tbl} PO TWICE A DAY September 20, 2018 1:00am December 05, 2018 9:43am Start: 11-21-2017 End: 01-10-2018 Amoxicillin-Pot Clavulanate (Augmentin) 875-125 mg tablet Discontinued 1 {tbl} PO TWICE A DAY November 21, 2017 12:00am January 10, 2018 8:46am Start: 05-24-2016 End: 05-28-2016 take 1 tablet by mouth twice daily Amoxicillin-Pot Clavulanate 875-125 MG Oral Tablet 1 (one) Tablet Tablet bid for 0 days Quantity: 20 {Tablet} Refills: 0 Ordered: 28-May-2016 Dorothea Chapa Start : 24-May-2016 End : 28-May-2016 Discontinued Start: 07-03-2015 End: 02-12-2016 take 1 tablet by mouth twice daily AUGMENTIN, 875-125MG (Oral Tablet) 1 Tablet Tablet bid for 0 days Quantity: 20 {Tablet} Refills: 0 Ordered: 12-Feb-2016 ОЛЬГА Wang Start : 03-Jul-2015 End : 12-Feb-2016 Inactive Comment on above: Take 1 tablet by toby th two times a day. ascorbic acid 500 mg oral tablet (3 sources) End: 06-06-2017 take 1 tablet by mouth once daily VITAMIN C, 500MG (Oral Tablet) 1 tab qd (500 MG) Inactive Azelastine 205.5 mcg (0.15 %) spray,non-aerosol (3 sources) Start: 01-08-2025 End: 01-08-2025 Azelastine 205.5 mcg (0.15 %) spray,non-aerosol Discontinued 1 NMA INTRANASAL TWICE A DAY 21 07January 08, 2025 12:00am January 08, 2025 10:35am Cough Cough, unspecified Chronic obstructive pulmonary disease, unspecified administer into each nostril Start: 01-08-2025 End: 01-08-2025 Azelastine 205.5 mcg (0.15 % ) spray,non-aerosol Discontinued 1 NMA INTRANASAL TWICE A DAY January 08, 2025 12:00am January 08, 2025 10:35am administer into each nostril Start: 01-08-2025 Azelastine 205 .5 mcg (0.15 %) spray,non-aerosol Active 1 NMA INTRANASAL TWICE A DAY January 08, 2025 12:00am administer into each nostril azithromycin 500 mg oral tablet (20 sources) Macrolide Antimicrobial Start: 12-15-2024 End: 12-18-2024 take 1 tablet by mouth once daily, then take 2-5 tablets by mouth once daily Azithromycin 500 mg tablet Discontinued 0 PO daily 3 5 December 15, 2024 12:00am December 19, 2024 12:00am December 18, 2024 3:47pm Day 1: 500 mg po, Days 2-5: 250mg po daily orally daily; Start: 06-04-2020 End: 08-26-2020 take 1 tablet by mouth once daily Azithromycin 250 mg tablet Discontinued 250 mg PO daily 6 June 04, 2020 12:00am August 26, 2020 9:24am Start: 04-24-2019 End: 2019 take 1 tablet by mouth once daily Azithromycin 250 mg tablet Discontinued 250 mg PO daily 6 May 08, 2019 12:00am 2019 9:46am Start: 05-23-2018 End: 07-06-2018 take 1 tablet by mouth once daily Azithromycin 250 mg tablet Discontinued 250 mg PO daily 6 May 23, 2018 12:00am July 06, 2018 3:37pm Start: 11-16-2017 End: 01-10-2018 take 1 tablet by mouth once daily Azithromycin 250 mg tablet Discontinued 250 mg PO daily 6 November 16, 2017 12:00am January 10, 2018 8:46am Start: 05-24-2017 End: 06-06-2017 AZITHROMYCIN 250 MG TABS 2 t ablets by mouth today and then 1 tablet daily for the next 4 days AZITHROMYCIN [id number] Jp Vergara [employer] Start: 02-12-2016 End: 03-22-2016 Zithromax Z-Devon 250 MG Oral Tablet 1 (one) Tablet uad for 0 days Quantity: 1 {Package} Refills: 0 Ordered: 22-Mar-2016 Felipe ОЛЬГА Start : 12-Feb-2016 End : 22-Mar-2016 Inactive baclofen 10 mg oral tablet (8 sources) gamma-Aminobutyric Acid-ergic Agonist Start: 05-25-2022 End: 12-27-2022 take 1 tablet by mouth twice daily as needed Baclofen 10 mg tablet Discontinued 10 mg PO TWICE A DAY as needed May 28, 2022 12:00am December 27, 2022 8:44am Comment on above: Take 1 tablet by toby th twice daily as needed. breath-actuated 120 actuat beclomethasone dipropionate 0.04 mg/actuat metered dose inhaler (20 sources) Corticosteroid Start: 11-02-2023 End: 04-17-2024 QVAR REDIHALER 40 mcg/actuation inhaler Inhale 70 Puffs as instructed two times a day. 11/02/2023 04/17/2024 Discontinued Start: 11-02-2023 take 1 puff(s) by in halation twice daily QVAR REDIHALER 40 mcg/actuation inhaler Inhale 1 Puff as instructed two times a day. 11/02/2023 Active Start: 11-02-2023 End: 10-31-2024 take 40 ug by inhalation twice daily Beclomethasone Dipropionate (Qvar Redihaler) 40 mcg/actuation HFA aerosol breath activated Discontinued 1 NMA INHALATION TWICE A DAY 10.6 November 02, 2023 12:00am October 31, 2024 12:25pm Start: 11-02-2023 End: 10-31-2024 take 40 ug by inhalation twice daily Beclomethasone Dipropionate (Qvar Redihaler) 40 mcg/actuation HFA aerosol breath activated Discontinued 1 NMA INHALATION TWICE A DAY 10.November 02, 2023 12:00am October 31, 2024 12:25pm Comment on above: Inhale 1 Puff as ins tructed two times a day. benzonatate 200 mg oral capsule (20 sources) Non-narcotic Antitussive Start: End: take 1 capsule by mouth three times daily Benzonatate 200 mg capsule Discontinued 200 mg PO THREE TIMES A DAY 21 7 0 December 15, 2024 12:00am December 21, 2024 12:00am December 18, 2024 3:17pm Start: 04-16-2024 End: 07-17-2024 take 1-2 capsules by mouth three times daily as needed for cough benzonatate (TESSALON PERLES) 100 mg capsule Indications: COVID-19 Take 1-2 capsules by mouth three times a day as needed for cough. 40 capsule 04/16/2024 07/17/2024 Discontinued (Other) Start: 09-20-2018 End: 01-24-2019 take 1 capsule by mouth three times daily as needed for cough Benzonatate 200 mg capsule Discontinued 200 mg PO THREE TIMES A DAY as needed for cough 90 0 September 20, 2018 1:00am January 24, 2019 10:09am Start: 05-24-2017 take 1 tablet by toby three times daily as needed for cough TESSALON PERLES 100 MG CAPS One tablet by mouth three times daily as needed for cough BENZONATATE [id number] Jp Vergara [employer] betamethasone 3 mg/ml / betamethasone acetate 3 mg/ml injectable suspension (2 sources) Corticosteroid Start: 04-28-2022 End: 04-28-2022 betamethasone acetate-betamethasone sodium phosphate 3 mg injection (CELESTONE) Start: 12-16-2021 End: 12-16-2021 betamethasone acetate-betame thasone sodium phosphate 3 mg injection (CELESTONE) biotin 2.5 mg oral capsule (9 sources) Start: 11-30-2021 End: 12-18-2024 take 1 capsule by mouth once daily Biotin 2,500 mcg capsule Discontinued 2500 ug PO DAILY November 30, 2021 12:00am December 18, 2024 3:17pm supplement BIOTIN CAPS BIOT IN CAPS [id number] Bong Welch DO End: 06-06-2017 BIOTIN CAPS BIOTI N CAPS [id number] Efewongbe B Oleghe MD budesonide 0.25 mg/ml inhalant solution (1 source) Corticosteroid Start: 08-27-2010 End: 08-09-2011 PULMICORT, 0.5MG/2ML (Inhalation Suspension) 1 Suspension q 12 for 0 days Quantity: 1 {Suspension} Refills: 0 Ordered: 09-Aug-2011 Mike NATHANJayshree Start : 27-Aug-2010 End : 09-Aug-2011 Inactive Comments: dispense one box Comment on above: dispense one box 60 actuat budesonide 0.16 mg/actuat / formoterol fumarate 0.0045 mg/actuat metered dose inhaler (1 source) Corticosteroid, beta2-Adrenergic Agonist Start: 03-12-2015 End: 04-11-2015 SYMBICORT, 160-4.5MCG/ACT (Inhalation Aerosol) 1 (one) Aerosol Aerosol bid for 30 days Quantity: 1 {Inhaler} Refills: 0 Ordered: 10-Apr-2015 Fast DO, Rakel A Fast DO, Rakel A Start : 12-Mar-2015 End : 11-Apr-2015 Inactive 24 hr buPROPion hydrochloride 150 mg extended release oral tablet (8 sources) Aminoketone Start: 01-28-2021 End: 03-25-2021 take 1 tablet by mouth once daily in the morning Bupropion Hcl (Wellbutrin Xl) 150 mg tablet extended release 24 hr Discontinued 150 mg PO EVERY MORNING 20 09January 28, 2021 12:00am March 25, 2021 4:51pm Start: 01-19-2012 End: 01-19-2012 take 1 tablet by mouth once daily BUPROPION HCL (SR), 150MG (Oral Tablet Extended Release 12 Hour) 1 Tablet ER 12HR qd for 0 days Quantity: 90 {Tablet_ER_12HR} Refills: 3 Ordered: 19-Jan-2012 Dorothea Chapa Start : 19-Jan-2012 End : 19-Jan-2012 Discontinued Calcium Carbonate (20 sources) End: 06-06-2023 CALCIUM CARBONATE (CALCIUM 5 00 ORAL) Take by mouth. 0 06/06/2023 Discontinued CALCIUM CARBONAT E (CALCIUM 500 ORAL) Take by mouth. 0 Active Comment on above: Take by mouth. calcium carbonate 1250 mg / cholecalciferol 200 unt oral tablet (1 source) Vitamin D take 1 tablet by mouth three times daily CALCIUM 500 + D, [id number] (PO Tab) 1 TID for 0 days Refills: 0 Ordered: 31-Mar-2009 Dorothea Chapa Active calcium citrate 950 mg / cholecalciferol 250 unt oral tablet (7 sources) Vitamin D Start: 08-18-20 17 End: 12-19-19 25 Calcium Citrate-Vitamin D3 ([place] Calcium-Vitamin D3) 200 mg calcium -250 unit tablet Discontinued 1 {tbl} PO DAILY August 18, 2017 1:00am December 18, 2024 3:17pm CALCIUM CITRATE-VITAMIN D TABS (1 source) CITRUS CALCIUM + D MAXIMUM TABS CALCIUM CITRATE-VITAMIN D TABS [id number] Bong Welch DO cefadroxil 500 mg oral capsule (1 source) Cephalosporin Antibacterial Start: 08-17-20 16 End: 08-24-19 17 take 1 capsule by mouth twice daily Cefadroxil 500 MG Oral Capsule 1 (one) Capsule bid for 7 days Quantity: 14 {Capsule} Refills: 0 Ordered: 17-Aug-2016 Joanna Freitas CNP Start : 17-Aug-2016 End : 24-Aug-2016 Inactive cetirizine hydrochloride 10 mg oral tablet (18 sources) Histamine-1 Receptor Antagonist Start: 05-08-20 19 End: 09-20-19 20 take 1 tablet by mouth once daily as needed Cetirizine (Zyrtec) 10 mg tablet Discontinued 10 mg PO DAILY as needed for allergy symptoms May 08, 2019 12:00am September 20, 2019 12:52pm Segmental and somatic dysfunction of cervical region Start: 08-18-2017 End: 10-13-2017 take 5 mg by mouth once Cetirizine (Zyrtec) 10 mg ta blet Discontinued 5 mg PO ONCE August 18, 2017 1:00am October 13, 2017 10:43am Start: 12-30-2014 take 1 tablet by toby th once daily CETIRIZINE HCL, 10MG (Oral Tablet) 1 (one) Tablet daily for 30 days Quantity: 30 {Tablet} Refills: 0 Ordered: 30-Dec-2014 Fast DO, Rakel A Fast DO, Rakel A Start : 30-Dec-2014 Active Start: 11-22-2011 take 1 tablet by toby th once daily ZYRTEC ALLERGY 10 MG CAPS One tablet by mouth daily CETIRIZINE HCL [id number] Katalina Quinndaneingrid End: 10-15-2011 ZYRTEC ALLERGY TABS CETIRIZINE HCL TABS [id number] Bong Welch DO ZYRTEC ALLERGY T ABS CETIRIZINE HCL TABS [id number] Bong Welch DO cholecalciferol 0.025 mg oral capsule (20 sources) Vitamin D Start: 05-05-2018 take 8000 [IU] by mouth once Cholecalciferol (Vitamin D3) Active 8000 UNIT PO ONCE May 05, 2018 12:34pm Start: 08-18-2017 End: 12-18-2024 take 1 capsule by mouth once Cholecalciferol (Vitamin D3) 1,000 unit capsule Discontinued 1000 U PO ONCE May 05, 2018 1:34pm December 18, 2024 3:17pm supplement Start: 07-21-2010 take 3 capsules by m outh once daily VITAMIN D3, [id number] (Oral Capsule) 3 (three) Capsule Daily for 0 days Quantity: 90 {Capsule} Refills: 3 Ordered: 27-Aug-2010 Stephani Rivera LPN Start : 21-Jul-2010 Active End: 11-30-2023 Cholecalciferol, Vitamin D3, 25 mcg (1,000 unit) cap Vitamin D 11/30/2023 Discontinued (Course of therapy completed) End: 11-30-2023 Cholecalciferol, Vitamin D3, 25 mcg (1,000 unit) cap Vitamin D 0 11/30/2023 Discontinued (Course of therapy completed) take 1 tablet by toby three times daily Cholecalciferol (VITAMIN D PO) Take 1 tablet by mouth 3 times daily. 0 Active VITAMIN D 1000 U NIT CAPS CHOLECALCIFEROL [id number] Bong Welch DO Comment on above: Vitamin D ciprofloxacin 500 mg oral tablet (1 source) Quinolone Antimicrobial Start: 09-20-19 End: 09-25-19 08 take 1 tablet by mouth twice daily CIPRO, 500MG (Oral Tablet) 1 (one) Tablet bid for 3 days Quantity: 6 {Tablet} Refills: 0 Ordered: 20-Sep-2007 Joanna Freitas CNP Start : 20-Sep-2007 End : 25-Sep-2007 Inactive clarithromycin 500 mg oral tablet (1 source) Macrolide Antimicrobial Start: 09-17-19 10 take 2 tablets by mouth once daily BIAXIN XL, 500MG (Oral Tablet Extended Release 24 Hour) 2 (two) Tablet ER 24HR qd for 0 days Quantity: 20 {Tablet_ER_24HR} Refills: 0 Ordered: 31-Oct-2009 Andra Juarez Start : 17-Sep-2009 Inactive clotrimazole 20 mg/ml vaginal cream (7 sources) Azole Antifungal Start: 09-06-19 18 End: 09-09-19 18 Clotrimazole 2 % cream Discontinued 1 NMA VAGINAL AT BEDTIME 21 3 0 September 06, 2017 1:00am September 08, 2017 1:00am September 09, 2017 1:10am Start: 09-06-2017 End: 09-09-2017 Clotrimazole Discontinued 1 APPFUL VAGINAL AT BEDTIME 21 3 September 06, 2017 1:00am September 09, 2017 1:10am ubidecarenone 10 mg oral cap jerry (8 sources) Start: 08-18-2017 End: 08-18-2017 Coenzyme Q10 (Co Q-10) 10 mg capsule Discontinued 10 mg PO ONCE August 18, 2017 1:00am August 18, 2017 3:50pm Start: 12-05-2013 take 1 capsule by [facility] once daily COQ10, 200MG (Oral Capsule) 1 (one) Capsule qd for 30 days Quantity: 30 {Capsule} Refills: 0 Ordered: 05-Dec-2013 Fast DO, Rakel A Fast DO, Rakel A Start : 05-Dec-2013 Active COENZYME Q10 CAPS (1 source) COQ10 CAPS MINDA E Q10 CAPS [id number] Bong Welch DO COMPOUNDING CREAM (ANTI-INFLAMMATORY: DICLOFENAC 5%, CYCLOBENZAPRINE 2%, BACLOFEN 2%, BUPIVACAINE 5%) (External Cream) (Free Text) (1 source) Start: 07-03-20 14 End: 02-12-20 16 COMPOUNDING CREAM (ANTI-INFLAMMATORY: DICLOFENAC 5%, CYCLOBENZAPRINE 2%, BACLOFEN 2%, BUPIVACAINE 5%) (External Cream) (Free Text) 1 (one) Cream Cream bid for 0 days Quantity: 1 {Bottle} Refills: 0 Ordered: 12-Feb-2016 Felipe ОЛЬГА Start : 03-Jul-2014 End : 12-Feb-2016 Inactive cyclobenzaprine hydrochloride 5 mg oral tablet (20 sources) Muscle Relaxant Start: 06-15-20 End: 11-23-19 take 1 tablet by mouth every eight hours as needed cyclobenzaprine (FLEXERIL) 5 mg tablet Take 5 mg by mouth three times daily as needed. 0 06/15/2022 11/22/2022 Discontinued (Other) Start: 06-02-2021 End: 05-28-2022 take 1 tablet by mouth three times daily as needed for muscle spasms Cyclobenzaprine 5 mg tablet Discontinued 5 mg PO THREE TIMES A DAY as needed for muscle spasm 90 3 July 21, 2021 9:50am May 28, 2022 9:18am Start: 07-02-2019 End: 06-03-2020 take 1 tablet by mouth three times daily as needed for muscle spasms Cyclobenzaprine 10 mg tablet Discontinued 10 mg PO THREE TIMES A DAY as needed for muscle spasm 120 2 July 02, 2019 1:00am June 03, 2020 9:36am Start: 01-13-2018 End: 05-07-2019 take 1 tablet by mouth three times daily as needed for muscle spasms Cyclobenzaprine 10 mg tablet Discontinued 10 mg PO THREE TIMES A DAY as needed for muscle spasm 30 0 February 04, 2019 10:02am May 07, 2019 10:03am Start: 08-03-2013 End: 08-13-2013 take 1 tablet by mouth three times daily as needed CYCLOBENZAPRINE HCL, 10MG (Oral Tablet) 1 (one) Tablet tid, prn for 10 days Quantity: 30 {Tablet} Refills: 0 Ordered: 19-Oct-2013 Fast DO, Rakel A Fast DO, Rakel A Start : 03-Aug-2013 End : 13-Aug-2013 Inactive Start: 05-18-2011 End: 08-03-2013 take 1 tablet by mouth twice daily as needed FLEXERIL, 10MG (Oral Tablet) 1 (one) Tablet bid, prn for 0 days Quantity: 30 {Tablet} Refills: 0 Ordered: 09-Aug-2011 Dorothea Chapa Start : 18-May-2011 End : 03-Aug-2013 Discontinued Comments: This order discontinued per [facility]. Start: 03-31-2009 FLEXERIL, 5MG (Oral Tablet) 1 tab Tablet bid prn for 0 days Quantity: 60 {Tablet} Refills: 0 Ordered: 31-Oct-2009 Andra Juarez Start : 31-Mar-2009 Inactive Comment on above: This order discontin ued per [facility]. Take 5 mg by mouth t hree times daily as needed. DICLOFENAC SODIUM GEL (4 sources) Nonsteroidal Anti-inflammatory Drug Start: 10-15-2011 VOLTAREN GEL DICLOFENAC SODIUM GEL [id number] Bong Welch DO Start: 10-15-2011 End: 03-03-2017 VOLTAREN GEL 2016 DICLOFENAC SODIUM GEL [id number] Alice Bassett Start: 03-07-2009 VOLTAREN, 1% ( External Gel) Gel for 0 days Refills: 0 Ordered: 31-Oct-2009 Andra Juarez Start : 07-Mar-2009 Inactive VOLTAREN, 1% (Tr ansdermal Gel) apply to knee prn (1 %) Inactive EPINEPHrine 0.01 mg/ml / lidocaine hydrochloride 10 mg/ml injectable solution (1 source) Antiarrhythmic, alpha-Adrenergic Agonist, beta-Adrenergic Agonist, Catecholamine, Amide Local Anesthetic Start: 02-07-2025 End: 02-07-2025 SUBCUTANEOUS, X (OR/PROCEDURE) PRN, Starting on Marian 02/07/25 at 1322, Until Marian 02/07/25 at 1322, Intraprocedure estrogens, conjugated (mcfp) 0.625 mg/ml vaginal cream (1 source) Estrogen Start: 03-10-2010 End: 07-07-2010 PREMARIN, 0.625MG/GM (Vaginal Cream) 1 Cream on 3 weeks off 1 week for 0 days Refills: 11 Ordered: 07-Jul-2010 Dorothea Chapa Start : 10-Mar-2010 End : 07-Jul-2010 Inactive ezetimibe 10 mg oral tablet (15 sources) Dietary Cholesterol Absorption Inhibitor Start: 10-01-2019 End: 03-04-2020 take 1 tablet by mouth once daily Ezetimibe (Zetia) 10 mg tablet Discontinued 10 mg PO DAILY 90 3 November 20, 2019 10:56am March 04, 2020 8:58am Start: 06-12-2007 End: 06-12-2007 take 1 tablet by mouth once daily ZETIA, 10MG (Oral Tablet) 1 Tablet QD for 0 days Quantity: 30 {Tablet} Refills: 3 Ordered: 12-Jun-2007 Mike EVANSJayshree Start : 12-Jun-2007 End : 12-Jun-2007 Discontinued ezetimibe 10 mg / simvastatin 20 mg oral tablet (1 source) HMG-CoA Reductase Inhibitor, Dietary Cholesterol Absorption Inhibitor Start: 03-07-2009 End: 03-07-2009 take 1 tablet by mouth once daily VYTORIN, 10-20MG (Oral Tablet) 1 (one) Tablet qd for 0 days Quantity: 30 {Tablet} Refills: 3 Ordered: 07-Mar-2009 Fast DO, Rakel A Fast DO, Raekl A Start : 07-Mar-2009 End : 07-Mar-2009 Discontinued famotidine 40 mg oral tablet (20 sources) Histamine-2 Receptor Antagonist Start: 12-30-2022 End: 08-04-2023 take 1 tablet by mouth once daily as needed famotidine (PEPCID) 40 mg tablet Indications: Gastroesophageal reflux disease without esophagitis , Nausea Take 1 tablet by mouth once daily as needed. 60 tablet 2 12/30/2022 08/04/2023 Discontinued Comment on above: Take 1 tablet by toby once daily as needed. fexofenadine hydrochloride 180 mg oral tablet (1 source) Histamine-1 Receptor Antagonist Start: 01-29-2009 GENNARO, 180MG (Oral Tablet) 1 Tablet PRN for 0 days Quantity: 30 {Tablet} Refills: 3 Ordered: 31-Oct-2009 Andra Juarez Start : 29-Jan-2009 Inactive fluconazole 100 mg oral tablet (2 sources) Azole Antifungal Start: 01-09-2025 End: 01-14-2025 take 1 tablet by mouth once daily Fluconazole 100 mg tablet Discontinued 100 mg PO daily 5 5 0 January 09, 2025 12:00am January 13, 2025 12:00am January 14, 2025 12:07am Fluticasone Propion-Salmeterol (20 sources) Corticosteroid, beta2-Adrenergic Agonist Start: 11-11-2022 End: 06-30-2023 Fluticasone Propion-Salmeterol (Advair Diskus) 250-50 mcg/dose blister with device Discontinued 1 NMA INHALATION TWICE A DAY 60 November 11, 2022 3:28pm June 30, 2023 10:36am [email or web address] Start: 11-11-2022 End: 06-30-2023 Fluticasone Propion-Salmeter ol (Advair Diskus) 250-50 mcg/dose blister with device Discontinued 1 NMA INHALATION TWICE A DAY 60 November 11, 2022 3:28pm June 30, 2023 10:36am [email or web address] Start: 11-11-2022 Fluticasone Pr opion-Salmeterol (Advair Diskus) 250-50 mcg/dose blister with device Active 1 INH INHALATION TWICE A DAY 60 November 11, 2022 3:28pm [email or web address] Start: 11-11-2022 End: 11-11-2022 Fluticasone Propion-Salmeter ol (Advair Diskus) 250-50 mcg/dose blister with device Discontinued 1 NMA INHALATION TWICE A DAY 60 November 11, 2022 3:27pm November 11, 2022 3:29pm Start: 11-11-2022 End: 11-11-2022 Fluticasone Propion-Salmeter ol (Advair Diskus) 250-50 mcg/dose blister with device Discontinued 1 NMA INHALATION TWICE A DAY 60 November 11, 2022 3:27pm November 11, 2022 3:29pm Start: 11-11-2022 End: 11-11-2022 Fluticasone Propion-Salmeter ol (Advair Diskus) 250-50 mcg/dose blister with device Discontinued 1 INH INHALATION TWICE A DAY 60 November 11, 2022 3:27pm November 11, 2022 3:29pm Start: 09-22-2022 End: 11-11-2022 Fluticasone Propion-Salmeter ol (Advair Diskus) 250-50 mcg/dose blister with device Discontinued 1 NMA INHALATION TWICE A DAY 60 September 22, 2022 1:00am November 11, 2022 3:27pm Start: 09-22-2022 End: 11-11-2022 Fluticasone Propion-Salmeter ol (Advair Diskus) 250-50 mcg/dose blister with device Discontinued 1 INH INHALATION TWICE A DAY 60 September 22, 2022 1:00am November 11, 2022 3:27pm Start: 08-22-2022 End: 09-27-2023 fluticasone-salmeterol (ADVA IR, WIXELA) 250-50 mcg/dose inhaler 08/22/2022 09/27/2023 Discontinued Start: 08-22-2022 fluticasone-sa lmeterol (ADVAIR, WIXELA) 250-50 mcg/dose inhaler Start: 08-22-2022 fluticasone-sa lmeterol (ADVAIR DISKUS) 250-50 mcg/dose inhaler Start: 08-09-2022 End: 09-22-2022 Fluticasone Propion-Salmeter ol (Advair Diskus) 100-50 mcg/dose blister with device Discontinued 1 NMA INHALATION TWICE A DAY 60 August 09, 2022 1:00am September 22, 2022 11:06am Start: 08-09-2022 End: 09-22-2022 Fluticasone Propion-Salmeter ol (Advair Diskus) 100-50 mcg/dose blister with device Discontinued 1 NMA INHALATION TWICE A DAY 60 August 09, 2022 1:00am September 22, 2022 11:06am Start: 08-09-2022 End: 09-22-2022 Fluticasone Propion-Salmeter ol (Advair Diskus) 100-50 mcg/dose blister with device Discontinued 1 INH INHALATION TWICE A DAY 60 August 09, 2022 1:00am September 22, 2022 11:06am Start: 08-09-2022 Fluticasone Pr opion-Salmeterol (Advair Diskus) 100-50 mcg/dose blister with device Active 1 INH INHALATION TWICE A DAY 60 August 09, 2022 12:00am Start: 06-30-2022 take 1 dose by mouth twice daily ADVAIR DISKUS 500-50 mcg/dose dsdv INHAL E 1 DOSE BY MOUTH TWICE DAILY 0 06/30/2022 Active Start: 06-30-2022 End: 08-09-2022 Fluticasone Propion-Salmeter ol (Advair Diskus) 500-50 mcg/dose blister with device Discontinued 1 NMA INHALATION TWICE A DAY 60 June 30, 2022 1:00am August 09, 2022 10:49am Start: 06-30-2022 End: 08-09-2022 Fluticasone Propion-Salmeter ol (Advair Diskus) 500-50 mcg/dose blister with device Discontinued 1 NMA INHALATION TWICE A DAY 60 June 30, 2022 1:00am August 09, 2022 10:49am Start: 06-30-2022 End: 08-09-2022 Fluticasone Propion-Salmeter ol (Advair Diskus) 500-50 mcg/dose blister with device Discontinued 1 INH INHALATION TWICE A DAY 60 June 30, 2022 1:00am August 09, 2022 10:49am Start: 06-30-2022 End: 08-09-2022 Fluticasone Propion-Salmeter ol (Advair Diskus) 500-50 mcg/dose blister with device Discontinued 1 INH INHALATION TWICE A DAY 60 June 30, 2022 12:00am August 09, 2022 9:49am Comment on above: INHALE 1 DOSE BY TOBY TWICE DAILY 30 actuat fluticasone furoate 0.2 mg/actuat / vilanterol 0.025 mg/actuat dry powder inhaler (20 sources) Corticosteroid, beta2-Adrenergic Agonist Start: 06-30-2023 End: 11-02-2023 Fluticasone Furoate-Vilanterol (Breo Ellipta) 200-25 mcg/dose blister with device Discontinued 1 NMA INHALATION DAILY 60 June 30, 2023 1:00am November 02, 2023 1:32pm Start: 04-07-2022 End: 05-25-2022 fluticasone-vilanterol (BREO ELLIPTA) 200-25 mcg/dose inhaler Inhale 1 Inhalation as instructed once daily. Inhale one puff once daily. DO NOT CLICK OPEN UNTIL READY FOR DOSE 30 Each 3 04/07/2022 05/25/2022 Discontinued (Course of therapy completed) End: 11-30-2023 take 1 puff(s) by inhalation once daily fluticasone/vilanterol (BREO ELLIPTA INHALATION) Inhale 1 Puff as instructed once daily. 11/30/2023 Discontinued (Course of therapy completed) End: 11-30-2023 take 1 puff(s) by inhalation once daily fluticasone/vilanterol (BREO ELLIPTA INHALATION) Inhale 1 Puff as instructed once daily. 0 11/30/2023 Discontinued (Course of therapy completed) take 1 puff(s) by in halation once daily fluticasone/vilanterol (BREO ELLIPTA INHALATION) Inhale 1 Puff as instructed once daily. 0 Active Comment on above: Inhale 1 Inhalation as instructed once daily. Inhale one puff once daily. DO NOT CLICK OPEN UNTIL READY FOR DOSE Inhale 1 Puff as ins tructed once daily. Fluticasone Propionate (Flovent Hfa) 220 mcg/actuation HFA aerosol inhaler (3 sources) Start: 01-08-2025 End: 04-09-2025 Fluticasone Propionate (Flovent Hfa) 220 mcg/actuation HFA aerosol inhaler Discontinued 2 NMA INHALATION TWICE A DAY 07 27January 08, 2025 12:00am April 09, 2025 11:06am Cough Cough, unspecified administer with spacer Start: 01-08-2025 Fluticasone Pr opionate (Flovent Hfa) 220 mcg/actuation HFA aerosol inhaler Active 2 NMA INHALATION TWICE A DAY January 08, 2025 12:00am administer with spacer 120 actuat formoterol fumarate 0.0048 mg/actuat / glycopyrrolate 0.009 mg/actuat metered dose inhaler (1 source) Anticholinergic, beta2-Adrenergic Agonist Start: 05-24-2017 BEVESPI AEROSPHERE 9-4.8 MCG/ACT AERO 2 puffs twice a day as needed GLYCOPYRROLATE-FORMOTEROL [id number] Jp Vergara [employer]C 60 actuat formoterol fumarate 0.005 mg/actuat / mometasone furoate 0.2 mg/actuat metered dose inhaler (2 sources) Corticosteroid, beta2-Adrenergic Agonist Start: 12-30-2014 End: 03-12-2015 DULERA, 200-5MCG/ACT (Inhalation Aerosol) 2 (two) Aerosol bid for 0 days Quantity: 1 {Inhaler} Refills: 3 Ordered: 12-Mar-2015 Merlyn Taylor LPN Start : 30-Dec-2014 End : 12-Mar-2015 Inactive take 2 puff(s) by inhalation twi ce daily DULERA, 200-5MCG/ACT (Inhalation Aerosol) 2 puffs bid (200-5 MCG/ACT) Inactive gabapentin 300 mg oral capsule (20 sources) Anti-epileptic Agent Start: 05-22-2024 End: 11-19-2024 take 1 capsule by mouth once daily at bedtime gabapentin (NEURONTIN) 300 mg capsule Indications: Radiculopathy, lumbar region Take 1 capsule by mouth daily at bedtime for 30 days. 30 capsule 2 08/21/2024 11/19/2024 Discontinued Start: 01-10-2024 End: 04-17-2024 take 2 capsules by mouth three times daily gabapentin (NEURONTIN) 100 mg capsule Indications: Chronic right-sided low back pain without sciatica take two pills by mouth three times daily. 180 capsule 01/10/2024 04/17/2024 Discontinued Start: 11-28-2023 End: 01-02-2024 take 2 capsules by mouth three times daily gabapentin (NEURONTIN) 100 mg capsule Indications: Chronic right-sided low back pain without sciatica take two pills by mouth three times daily. 180 capsule 0 11/28/2023 01/02/2024 Discontinued Start: 11-02-2023 End: 12-18-2024 take 2 capsules by mouth twice daily Gabapentin 100 mg capsule Discontinued 200 mg PO TWICE A DAY November 02, 2023 12:00am December 18, 2024 3:17pm Start: 10-10-2023 End: 11-10-2023 take 2 capsules by mouth three times daily gabapentin (NEURONTIN) 100 mg capsule Indications: Chronic right-sided low back pain without sciatica take two pills by mouth three times daily. 180 capsule 0 10/10/2023 Active Start: 09-12-2023 End: 10-13-2023 take 1 capsule by mouth three times daily, then take 2 capsules by mouth three times daily gabapentin (NEURONTIN) 100 mg capsule Indications: Chronic right-sided low back pain without sciatica Start one pill by mouth three times daily. After two days, start titrating up to two pills by mouth three times daily. 180 capsule 0 09/12/2023 10/10/2023 Discontinued Start: 08-27-2022 End: 05-18-2023 take 1 capsule by mouth at bedtime Gabapentin 300 mg capsule Discontinued 300 mg PO AT BEDTIME September 22, 2022 1:00am May 18, 2023 9:53am Start: 08-29-2018 End: 11-07-2018 take 1 capsule by mouth at bedtime Gabapentin 300 mg capsule Discontinued 300 mg PO AT BEDTIME August 29, 2018 10:41am November 07, 2018 10:11am Dorsalgia, unspecified Start: 05-05-2018 End: 08-29-2018 take 2 capsules by mouth at bedtime Gabapentin 300 mg capsule Discontinued 600 mg PO AT BEDTIME 120 0 August 08, 2018 9:14am August 29, 2018 10:42am Dorsalgia, unspecified Start: 05-05-2018 End: 08-29-2018 take 600 mg by mouth at bedtime Gabapentin Discontinue d 600 MG PO AT BEDTIME 120 August 08, 2018 9:14am August 29, 2018 10:42am Start: 02-14-2018 End: 05-05-2018 take 1 capsule by mouth once daily Gabapentin 300 mg capsule Discontinued 300 mg PO daily February 14, 2018 12:00am May 05, 2018 1:11pm Start: 11-09-2017 End: 01-13-2018 take 2 capsules by mouth every eight hours Gabapentin 300 mg capsule Discontinued 600 mg PO Q8H 180 3 November 09, 2017 7:55am January 13, 2018 10:05am Start: 11-09-2017 End: 01-13-2018 take 600 mg by mouth every eight hours Gabapentin Discontinued 600 MG PO Q8H 180 November 09, 2017 7:55am January 13, 2018 10:05am Start: 08-18-2017 End: 08-18-2017 take 2 capsules by mouth every eight hours Gabapentin 300 mg capsule Discontinued 600 mg PO Q8H August 18, 2017 3:56pm August 18, 2017 4:40pm Start: 08-18-2017 End: 08-18-2017 take 600 mg by mouth every eight hours Gabapentin Discontinued 600 MG PO Q8H August 18, 2017 3:56pm August 18, 2017 4:40pm Start: 08-18-2017 End: 11-09-2017 take 1 capsule by mouth every eight hours Gabapentin 300 mg capsule Discontinued 300 mg PO Q8H August 18, 2017 1:00am August 18, 2017 3:56pm Start: 07-28-2017 End: 02-14-2018 take 1 capsule by mouth three times daily Gabapentin 300 mg capsule Discontinued 300 mg PO THREE TIMES A DAY January 13, 2018 12:00am February 14, 2018 8:54am Start: 03-07-2017 End: 04-18-2017 GABAPENTIN 100 MG CAPS 1 tab let 3x daily GABAPENTIN [id number] Katalina Quinndaneingrid Start: 05-27-2015 End: 02-12-2016 take 3 capsules by mouth twice daily GABAPENTIN, 100MG (Oral Capsule) 3 (three) Capsule Capsule bid for 0 days Quantity: 180 {Capsule} Refills: 3 Ordered: 12-Feb-2016 ОЛЬГА Wang Start : 27-May-2015 End : 12-Feb-2016 Inactive Start: 05-27-2015 End: 02-12-2016 take 1 capsule by mouth twice daily NEURONTIN, 300MG (Oral Capsule) 1 (one) Capsule bid for 30 days Quantity: 60 {Capsule} Refills: 3 Ordered: 12-Feb-2016 ОЛЬГА Wang Start : 27-May-2015 End : 12-Feb-2016 Inactive Start: 10-31-2009 End: 07-07-2010 take 3 capsules by mouth twice daily NEURONTIN, 100MG (Oral Capsule) 3 (three) Capsule bid for 0 days Quantity: 180 {Capsule} Refills: 3 Ordered: 07-Jul-2010 Dorothea Chapa Start : 31-Oct-2009 End : 07-Jul-2010 Inactive End: 06-14-2006 take 1 capsule by mouth once at bedtime NEURONTIN, 400MG (Oral Capsule) 1 Q HS for 0 days Refills: 0 Ordered: 20-Sep-2007 Jayshree Mckeon LPN End : 14-Jun-2006 Discontinued Comment on above: Take 1 capsule by mo uth daily at bedtime for 30 days. Start one pill by mo uth three times daily. After two days, start titrating up to two pills by mouth three times daily. take two pills by mo uth three times daily. guaifenesin/dextro methorphan (MUCUS RELIEF DM MAX ORAL) (9 sources) End: 09-27-2023 take 1 tablet by mouth twice daily guaifenesin/dextrometh orphan (MUCUS RELIEF DM MAX ORAL) Take 1 tablet by mouth two times a day. 09/27/2023 Discontinued take 1 tablet by toby th twice daily guaifenesin/dextromethorphan (MUCUS RELI EF DM MAX ORAL) Take 1 tablet by mouth two times a day. 0 Active Comment on above: Take 1 tablet by toby th two times a day. hydroquinone 40 mg/ml topical cream (2 sources) Melanin Synthesis Inhibitor Start: 02-26-2011 End: 10-15-2011 HYDROQUINONE 4 % CREA apply twice daily HYDROQUINONE [id number] Bong Welch DO iv contrast (will be provided with radiology test) (7 sources) Start: 12-29-2022 End: 02-15-2023 iv contrast (will be provided with radiology test) Indications: Spinal stenosis of lumbar region with neurogenic claudication MRI LSP Inject, intravenously, once for 1 dose. No IV access, insert saline lock prior to the beginning of sedation, infusion, injection of imaging exam. Discontinue saline lock post exam. If Pt. has a central line or IVAD, may access for administration according to line specific nursing protocol. Once exam is complete flush line and de-access according to line specific nursing protocol in the MR contrast administration guidelines link. 1 Each 0 12/29/2022 02/15/2023 Discontinued Start: 12-29-2022 iv contrast (w ill be provided with radiology test) Indications: Spinal stenosis of lumbar region with neurogenic claudication MRI LSP Inject, intravenously, once for 1 dose. No IV access, insert saline lock prior to the beginning of sedation, infusion, injection of imaging exam. Discontinue saline lock post exam. If Pt. has a central line or IVAD, may access for administration according to line specific nursing protocol. Once exam is complete flush line and de-access according to line specific nursing protocol in the MR contrast administration guidelines link. 1 Each 0 12/29/2022 Active Comment on above: MRI LSP Inject, intr avenously, once for 1 dose. No IV access, insert saline lock prior to the beginning of sedation, infusion, injection of imaging exam. Discontinue saline lock post exam. If Pt. has a central line or IVAD, may access for administration according to line specific nursing protocol. Once exam is complete flush line and de-access according to line specific nursing protocol in the MR contrast administration guidelines link. L. rhamnosus GG/inulin (CULTURELLE DIGESTIVE HEALTH ORAL) (20 sources) End: take 1 tablet by mouth once daily L. rhamnosus GG/inulin (CULTURELLE DIGESTIVE HEALTH ORAL) Take 1 tablet by mouth once daily. 01/27/2024 Discontinued End: 01-27-2024 take 1 tablet by mouth once daily L. rhamnosus GG/inulin (CULTURELLE DIGESTIVE HEALTH ORAL) Take 1 tablet by mouth once daily. 0 01/27/2024 Discontinued take 1 tablet by toby th once daily L. rhamnosus GG/inulin (CULTURELLE DIGESTIVE HEALTH ORAL) Take 1 tablet by mouth once daily. 0 Active Comment on above: Take 1 tablet by toby th once daily. levoFLOXacin 500 mg oral tablet (15 sources) Quinolone Antimicrobial Start: 08-06-20 End: 08-11-20 take 1 tablet by mouth every twenty-four hours Levofloxacin (Levaquin) 500 mg tablet Discontinued 500 mg PO Q24H 5 5 0 August 06, 2019 1:00am August 10, 2019 1:00am August 11, 2019 1:08am Start: 09-14-2018 End: 09-19-2018 take 1 tablet by mouth every twenty-four hours Levofloxacin (Levaquin) 500 mg tablet Discontinued 500 mg PO Q24H 5 5 0 September 14, 2018 1:00am September 18, 2018 1:00am September 19, 2018 1:08am Start: 08-27-2010 End: 07-23-2011 take 1 tablet by mouth once daily LEVAQUIN, 500MG (Ora l Tablet) 1 Tablet qd for 0 days Quantity: 10 {Tablet} Refills: 0 Ordered: 23-Jul-2011 Dorothea Chapa Start : 27-Aug-2010 End : 23-Jul-2011 Inactive Lidocaine (20 sources) Antiarrhythmic, Amide Local Anesthetic Start: 02-07-2025 End: 02-07-2025 X (OR/PROCEDURE) PRN, Starting on Marian 02/07/25 at 1320, Until Marian 02/07/25 at 1320, Intraprocedure Start: 06-02-2021 apply 1 dose topical ly once daily Lidocaine (Aspercreme (Lidocaine)) 4 % adhesive patch,medicated Active 1 PATCH TOPICAL DAILY June 02, 2021 12:00am Start: 06-02-2021 Lidocaine (Asp ercreme (Lidocaine)) 4 % adhesive patch,medicated Active 1 NMA TOPICAL DAILY as needed for pain June 02, 2021 12:00am Start: 09-20-2019 End: 01-07-2021 Lidocaine 5 % adhesive patch,medicated Discontinued 1 NMA TOPICAL DAILY September 20, 2019 1:00am January 07, 2021 10:28am leave on most painful area for up to 12 hrs Start: 05-07-2019 End: 09-20-2019 Lidocaine Hcl (Aspercreme (L idocaine Hcl)) 4 % cream Discontinued 1 NMA TOPICAL TWICE A DAY May 07, 2019 12:00am September 20, 2019 12:53pm Comment on above: Apply as directed on ce daily. methylPREDNISolone 4 mg oral tablet (11 sources) Corticosteroid Start: 2017 End: 2017 take 1 tablet by mouth once Methylprednisolone (Medrol (Devon)) 4 mg tablets,dose pack Discontinued 0 PO per package directions 21 May 08, 2018 12:00am July 06, 2018 3:38pm PO PER PKG DIR Start: 05-03-2017 End: 05-09-2017 METHYLPREDNISOLONE 4 MG TBPK take as directed METHYLPREDNISOLONE [id number] Katalina Gamez Start: 05-03-2017 End: 05-08-2017 MEDROL 4 MG TBPK take as dir ected METHYLPREDNISOLONE [id number] Katalina Gamez Start: 10-24-2012 End: 10-30-2012 MEDROL 4 MG TBPK take as dir ected METHYLPREDNISOLONE [id number] Katalina Gamez Start: 03-04-2008 End: 04-05-2008 MEDROL (DEVON), 4MG (Oral Tabl et) Tablet for 0 days Refills: 0 Ordered: 04-Mar-2008 Dorothea Chapa Start : 04-Mar-2008 End : 05-Apr-2008 Discontinued Comments: 1 devon with food- take as directed Comment on above: 1 devon with food- arin e as directed 60 actuat mometasone furoate 0.22 mg/actuat dry powder inhaler (6 sources) Corticosteroid Start: 12-10-2016 End: 12-10-2016 Asmanex 60 Metered Doses 220 MCG/INH Inhalation Aerosol Powder Breath Activated 2 (two) Aero Pow Br Act Aero Pow Br Act bid for 30 days Quantity: 1 {Inhaler} Refills: 3 Ordered: 10-Dec-2016 Fast DO, Rakel A Fast DO, Rakel A Start : 10-Dec-2016 End : 10-Dec-2016 Discontinued Start: 12-10-2016 Asmanex HFA 10 0 MCG/ACT Inhalation Aerosol 2 (two) Aerosol bid for 0 days Quantity: 1 {Inhaler} Refills: 3 Ordered: 10-Dec-2016 Fast DO, Rakel A Fast DO, Rakel A Start : 10-Dec-2016 Active Start: 04-19-2016 End: 07-13-2016 Asmanex 120 Metered Doses 22 0 MCG/INH Inhalation Aerosol Powder Breath Activated 2 (two) Aero Pow Br Act qd for 0 days Quantity: 1 {Inhaler} Refills: 3 Ordered: 13-Jul-2016 Dorothea Chapa Start : 19-Apr-2016 End : 13-Jul-2016 Discontinued Comments: 60 metered dose Start: 01-16-2013 End: 01-28-2015 NASONEX, 50MCG/ACT (Nasal Hussein spension) 2 (two) Suspension each nostril qd for 90 days Quantity: 3 {Suspension} Refills: 3 Ordered: 28-Jan-2015 Dorothea Chapa Start : 16-Jan-2013 End : 28-Jan-2015 Discontinued Comments: Mail order. End: 03-03-2017 ASMANEX 30 METERED DOSES AEP B MOMETASONE FUROATE AEPB [id number] Alice Bassett ASMANEX 30 METER ED DOSES AEPB MOMETASONE FUROATE AEPB [id number] Bong Welch DO Comment on above: Mail order. 60 metered dose montelukast 10 mg oral tablet (14 sources) Leukotriene Receptor Antagonist Start: 05-28-20 End: 09-22-19 23 take 1 tablet by mouth once daily in the evening Montelukast 10 mg tablet Discontinued 10 mg PO EVERY EVENING 30 3 May 28, 2022 12:00am September 22, 2022 10:48am Asthma Unspecified asthma, uncomplicated Comment on above: Take 10 mg by mouth daily at bedtime. nirmatrelvir tablet 300 mg (150 mg x 2) and ritonavir tablet 100 mg in a dose pack (PAXLOVID) (2 sources) Start: 03-28-20 End: 04-02-20 nirmatrelvir tablet 300 mg (150 mg x 2) and ritonavir tablet 100 mg in a dose pack (PAXLOVID) Administer TWO pink nirmatrelvir 150 mg tablets and ONE white ritonavir 100 mg tablet for a total of three tablets twice daily. 30 tablet 03/28/2024 04/02/2024 Start: 03-28-2024 End: 04-02-2024 nirmatrelvir tablet 300 mg ( 150 mg x 2) and ritonavir tablet 100 mg in a dose pack (PAXLOVID) Administer TWO pink nirmatrelvir 150 mg tablets and ONE white ritonavir 100 mg tablet for a total of three tablets twice daily. 30 tablet 0 03/28/2024 04/02/2024 nitrofurantoin, macrocrystals 25 mg / nitrofurantoin, monohydrate 75 mg oral capsule (18 sources) Nitrofuran Antibacterial Start: 06-08-2023 End: 06-21-2023 take 1 capsule by mouth twice daily Nitrofurantoin Monohyd/M-Cryst 100 mg capsule Discontinued 100 mg PO TWICE A DAY June 16, 2023 12:00am June 18, 2023 9:40am UTI Start: 09-06-2017 End: 09-11-2017 take 1 capsule by mouth every twelve hours at mealtime Nitrofurantoin Monohyd/M-Cryst (Macrobid) 100 mg capsule Discontinued 1 NMA PO Q12H 10 5 0 September 06, 2017 1:00am September 10, 2017 1:00am September 11, 2017 1:08am administer with a meal/food; swallow whole; do not open, crush, dissolve , or chew Comment on above: Take 1 capsule by mo ut two times a day for 5 days. Take 1 capsule by mo ut two times a day with meals for 7 days. nystatin [id number] unt/ml oral suspension (20 sources) Polyene Antifungal Start: 12-27-2024 End: 01-28-2025 nystatin (MYCOSTATIN) 100,000 unit/mL suspension Take 5 mL by mouth four times daily. 1tsp swish in mouth for several minutes, then swallow (or expectorate) 4 times daily until gone. 200 mL 12/27/2024 01/28/2025 Discontinued (Course of therapy completed) Start: 06-12-2020 End: 12-03-2020 Nystatin 100,000 unit/mL sofia pension Discontinued 5 mL MUCOUS MEM THREE TIMES A DAY 250 1 June 12, 2020 1:25pm December 03, 2020 9:07am swish and swallow 5 cc three times per day for 10 days Start: 06-12-2020 End: 12-03-2020 Nystatin Discontinued 5 ML M UCOUS MEM THREE TIMES A DAY June 12, 2020 1:25pm December 03, 2020 9:07am swish and swallow 5 cc three times per day for 10 days olopatadine hydrochloride 0.665 mg/actuat metered dose nasal spray (1 source) Histamine-1 Receptor Inhibitor take 1-2 spray(s) nasal route twice daily PATANASE, 0.6% (Nasal Solution) 1 to 2 sprays each nostril bid (0.6 %) Inactive [place] 4-Vwa-Bmi-Fish Oil (Fish Oil) 60-90-500 mg capsule (7 sources) Start: 12-01-19 End: 12-19-19 [place] 6-Own-Yzi-Fish Oil (Fish Oil) 60-90-500 mg capsule Discontinued 1 NMA PO DAILY November 30, 2021 12:00am December 18, 2024 3:18pm Start: 11-30-2021 take 1 capsule by mo ut once daily [place] 2-Mpj-Cxj-Fish Oil (Fish Oil) 60-90-500 mg capsule Active 1 CAP PO DAILY November 30, 2021 12:00am Start: 11-30-2021 take 1 capsule by mo uth once daily [place] 0-Qam-Qod-Fish Oil (Fish Oil) 60-90-500 mg capsule Active 1 CAP PO DAILY November 29, 2021 11:00pm omega-3 acid ethyl esters (mcfp) 1000 mg oral capsule (1 source) take 3 capsules by mouth once daily OMEGA 3, 1000MG (Oral Capsule) 3 caps qd (1000 MG) Inactive OMEGA-3 FATTY ACIDS (2 sources) Start: 10-15-2011 End: 06-06-2017 OMEGA-3 350 MG CAPS OMEGA-3 FATTY ACIDS [id number] Carmina Grissom MD Start: 10-15-2011 OMEGA-3 350 MG CAPS OMEGA-3 FATTY ACIDS [id number] Bong Welch DO omega-3 fatty acids (FISH OIL CONCENTRATE ORAL) (15 sources) End: 05-25-2022 take 1 capsule by mouth once daily omega-3 fatty acids (FISH OIL CONCENTRATE ORAL) Take 1 capsule by mouth once daily. 0 05/25/2022 Discontinued (Course of therapy completed) take 1 capsule by mouth once bandar ly omega-3 fatty acids (FISH OIL CONCENTRATE ORAL) Take 1 capsule by mouth once daily. 0 Active Comment on above: Take 1 capsule by mo [facility] once daily. omeprazole 20 mg delayed release oral capsule (5 sources) Proton Pump Inhibitor End: 12-17-19 take 1 capsule by mouth once daily omeprazole (PRILOSEC) 20 mg capsule Take 20 mg by mouth once daily. 0 12/16/2021 Discontinued (Course of therapy completed) Comment on above: Take 20 mg by mouth once daily. omeprazole 40 mg / sodium bicarbonate 1100 mg oral capsule (1 source) Proton Pump Inhibitor Start: 03-04-20 10 End: 07-07-20 10 take 1 capsule by mouth once daily ZEGERID, 40-1100MG (Oral Capsule) 1 (one) Capsule qd for 0 days Quantity: 30 {Capsule} Refills: 3 Ordered: 07-Jul-2010 Dorothea Chapa Start : 04-Mar-2010 End : 07-Jul-2010 Inactive ondansetron 4 mg disintegrating oral tablet (7 sources) Serotonin-3 Receptor Antagonist Start: 09-03-19 End: 11-04-19 24 take 1 tablet by mouth every eight hours as needed ondansetron orally disintegrating (ZOFRAN ODT) 4 mg disintegrating tablet Take 1 tablet by mouth every 8 hours as needed. 8 tablet 0 09/03/2023 11/04/2023 Discontinued Comment on above: Take 1 tablet by toby th every 8 hours as needed. oxyCODONE hydrochloride 5 mg oral tablet (20 sources) Opioid Agonist Start: 08-18-20 End: 09-19-19 take 2.5 mg by mouth every six hours as needed for pain Oxycodone 5 mg tablet Discontinued 2.5 mg PO EVERY 6 HOURS as needed for pain 60 0 August 18, 2017 August 18, 2017 4:42pm Start: 08-18-2017 End: 09-19-2017 take 2.5 mg by mouth every six hours Oxycodone Discontinued 2.5 MG PO EVERY 6 HOURS 60 August 18, 2017 August 18, 2017 4:42pm Start: 08-18-2017 End: 08-18-2017 oxycontin Discontinued PO 0 August 18, 2017 1:00am August 18, 2017 4:44pm Start: 08-18-2017 End: 08-18-2017 oxycontin Discontinued PO De cember 2016 1:00am August 18, 2017 4:44pm Start: 08-18-2017 End: 08-18-2017 oxycontin Discontinued PO De cember 2016 12:00am August 18, 2017 3:44pm Start: 08-09-2017 take 1 tablet by toby th every six hours as needed for pain oxyCODONE 5 MG Tab tablet Indications: Follow-up surgery care , S/P lumbar fusion Take 1 tablet by mouth every 6 hours as needed for Moderate Pain. Wean medication as ACUTE post operative pain improves. 28 tablet 0 08/09/2017 Active pantoprazole 40 mg delayed release oral tablet (8 sources) Proton Pump Inhibitor Start: 05-07-2019 End: 07-02-2019 take 1 tablet by mouth once daily Pantoprazole 40 mg tablet,delayed release (DR/EC) Discontinued 40 mg PO DAILY 30 May 07, 2019 12:00am July 02, 2019 9:27am Start: 06-14-2016 take 1 tablet by toby th twice daily Protonix 40 MG Oral Tablet Delayed Release 1 (one) Tablet DR bid for 0 days Quantity: 180 {Tablet} Refills: 3 Ordered: 10-Dec-2016 Dorothea Chapa Start : 14-Jun-2016 Active predniSONE 10 mg oral tablet (20 sources) Corticosteroid Start: 12-18-2024 End: 01-28-2025 take 1 tablet by mouth once daily predniSONE (DELTASONE) 10 mg tablet Take 10 mg by mouth once daily. 12/18/2024 01/28/2025 Discontinued (Course of therapy completed) Start: 12-18-2024 End: 12-30-2024 Prednisone 10 mg tablet Discontinued 10 mg PO daily 30 December 18, 2024 12:00am December 29, 2024 12:00am December 30, 2024 12:08am Fever Fever, unspecified take 4 tabs for three days, then 3 tabs for three days, then 2 tabs for three days, then 1 tab for 3 days Start: 12-13-2024 End: 12-18-2024 take 3 tablets by mouth once daily at mealtime Prednisone 20 mg tablet Discontinued 60 mg PO daily 15 December 13, 2024 12:00am December 17, 2024 12:00am December 18, 2024 12:07am administer with food or milk Start: 08-08-2024 End: 08-20-2024 predniSONE (DELTASONE) 10 mg tablet Indications: Acute right-sided thoracic back pain Take 4 tabs daily x 3 days, then 3 tabs x 3 days, 2 tabs x 3 days, then 1 tab x3 days with food. 30 tablet 08/08/2024 08/20/2024 Active Start: 04-02-2024 End: 04-11-2024 predniSONE (DELTASONE) 10 mg tablet Indications: Acute cough , COVID-19 Take 4 tabs daily for 3 days, then 2 tabs daily for 3 days, then 1 tab daily for 3 days with food. 21 tablet 04/02/2024 04/11/2024 Start: 01-27-2024 End: 02-01-2024 take 5 tablets by mouth once daily, then take 4 tablets by mouth once daily, then take 3 tablets by mouth once daily, then take 2 tablets by mouth once daily, then take 1 tablet by mouth once daily predniSONE (DELTASONE) 10 mg tablet Indications: Asthma with acute exacerbation, unspecified asthma severity, unspecified whether persistent Take 5 tablets by mouth once daily for 1 day, THEN 4 tablets once daily for 1 day, THEN 3 tablets once daily for 1 day, THEN 2 tablets once daily for 1 day, THEN 1 tablet once daily for 1 day. 15 tablet 0 01/27/2024 02/01/2024 Active Start: 12-08-2023 End: 12-23-2023 predniSONE (DELTASONE) 10 mg tablet Take 4 tabs daily x5 days, then 2 tabs daily for 5 days, then 1 tab daily for 5 days. 35 tablet 0 12/08/2023 12/23/2023 Active Start: 06-18-2023 End: 01-28-2025 Prednisone 20 mg Tablet Discontinued 0 mg PO WITH BREAKFAST 32 0 June 18, 2023 12:00am December 13, 2024 9:03am Please contact the information source for Taper Schedule details. Start: 01-28-2023 End: 05-18-2023 Prednisone 10 mg tablet Discontinued 10 mg PO daily 30 0 March 30, 2023 9:30am May 18, 2023 9:53am take 4 tabs for three days, then 3 tabs for three days, then 2 tabs for three days, then 1 tab for 3 days Start: 08-19-2022 End: 08-28-2022 predniSONE (DELTASONE) 10 mg tablet Indications: Hip pain Take 4 tabs daily for 3 days, then 2 tabs daily for 3 days, then 1 tab daily for 3 days with food. 21 tablet 0 08/19/2022 08/28/2022 Active Start: 02-25-2021 End: 03-25-2021 take 3 tablets by mouth once daily at mealtime Prednisone 20 mg tablet Discontinued 60 mg PO daily 15 0 February 25, 2021 12:00am March 25, 2021 4:19pm administer with food or milk Start: 02-25-2021 End: 03-25-2021 take 60 mg by mouth once daily at mealtime Prednisone Discontinued 60 MG PO daily February 25, 2021 12:00am March 25, 2021 4:19pm administer with food or milk Start: 12-05-2020 End: 12-10-2020 take 2 tablets by mouth once daily Prednisone 20 mg tablet Discontinued 40 mg PO DAILY 10 5 0 December 05, 2020 12:00am December 09, 2020 12:00am December 10, 2020 12:02am Start: 12-05-2020 End: 12-10-2020 take 40 mg by mouth once daily Prednisone Discontinued 40 MG PO DAILY 10 5 December 05, 2020 12:00am December 10, 2020 12:02am Start: 06-04-2020 End: 08-26-2020 take 3 tablets by mouth once daily at mealtime Prednisone 20 mg tablet Discontinued 60 mg PO daily 15 June 04, 2020 12:00am August 26, 2020 9:24am administer with food or milk Start: 06-04-2020 End: 08-26-2020 take 60 mg by mouth once daily at mealtime Prednisone Discontinued 60 MG PO daily June 04, 2020 12:00am August 26, 2020 9:24am administer with food or milk Start: 07-31-2019 End: 08-09-2019 take 3 tablets by mouth once daily at mealtime Prednisone 20 mg tablet Discontinued 60 mg PO daily 15 July 31, 2019 1:00am August 09, 2019 3:27pm administer with food or milk Start: 07-31-2019 End: 08-09-2019 take 60 mg by mouth once daily at mealtime Prednisone Discontinued 60 MG PO daily July 31, 2019 1:00am August 09, 2019 3:27pm administer with food or milk Start: 05-08-2019 End: 2019 take 3 tablets by mouth once daily at mealtime Prednisone 20 mg tablet Discontinued 60 mg PO daily 15 May 08, 2019 12:00am 2019 9:46am administer with food or milk Start: 05-08-2019 End: 2019 take 60 mg by mouth once daily at mealtime Prednisone Discontinued 60 MG PO daily May 08, 2019 12:00am 2019 9:46am administer with food or milk Start: 04-24-2019 End: 05-07-2019 Prednisone 10 mg tablet Discontinued 10 mg PO daily 30 0 April 24, 2019 12:00am May 07, 2019 10:04am take 4 tabs for three days, then 3 tabs for three days, then 2 tabs for three days, then 1 tab for 3 days Start: 09-11-2018 End: 09-20-2018 take 3 tablets by mouth once daily at mealtime Prednisone 20 mg tablet Discontinued 60 mg PO daily 15 0 September 11, 2018 1:00am September 20, 2018 9:54am administer with food or milk Start: 09-11-2018 End: 09-20-2018 take 60 mg by mouth once daily at mealtime Prednisone Discontinued 60 MG PO daily September 11, 2018 1:00am September 20, 2018 9:54am administer with food or milk Start: 05-23-2018 End: 07-06-2018 Prednisone 10 mg tablet Discontinued 10 mg PO daily 30 May 23, 2018 12:00am July 06, 2018 3:38pm take 4 tabs for three days, then 3 tabs for three days, then 2 tabs for three days, then 1 tab for 3 days Start: 11-21-2017 End: 01-10-2018 Prednisone 10 mg tablet Discontinued 10 mg PO daily 30 November 21, 2017 12:00am January 10, 2018 8:46am take 4 tabs for three days, then 3 tabs for three days, then 2 tabs for three days, then 1 tab for 3 days Start: 11-16-2017 End: 01-10-2018 take 3 tablets by mouth once daily at mealtime Prednisone 20 mg tablet Discontinued 60 mg PO daily November 16, 2017 12:00am January 10, 2018 8:47am administer with food or milk Start: 11-16-2017 End: 01-10-2018 take 60 mg by mouth once daily at mealtime Prednisone Discontinued 60 MG PO daily November 16, 2017 12:00am January 10, 2018 8:47am administer with food or milk Start: 05-24-2017 End: 06-05-2017 PREDNISONE 10 MG TABS Take 4 tabs by mouth for 3 days, then 3 tabs by mouth for 3 days, then 2 tabs by mourth for 3 days, then 1 tab by mouth for 3 days. PREDNISONE [id number] Jp Vergara [employer] Start: 12-10-2016 PredniSONE 10 MG Oral Tablet 3 (three) Tablet qd for 3 days 2 for 3 days 1 for 3 days with food in am for 0 days Quantity: 18 {Tablet} Refills: 1 Ordered: 10-Dec-2016 Fast DO, Rakel A Fast DO, Rakel A Start : 10-Dec-2016 Active Start: 02-12-2016 End: 03-22-2016 take 2 tablets by mouth twice daily, then take 1 tablet by mouth twice daily, then take 1 tablet by mouth once daily, then take 0.5 tablet by mouth once daily PredniSONE 20 MG Oral Tablet tad Tablet uad for 0 days Refills: 0 Ordered: 22-Mar-2016 Felipe ОЛЬГА Start : 12-Feb-2016 End : 22-Mar-2016 Inactive Comments: 2 tabs bid for 3 days , 1 tab bid for 3 days , then 1 tab daily for 3 days then 1/2 tab daily 6 days Start: 05-01-2015 End: 02-12-2016 PREDNISONE, 20MG (Oral Table t) 1 (one) Tablet Tablet bid for 4 days for 0 days Quantity: 8 {Tablet} Refills: 0 Ordered: 12-Feb-2016 Felipe ОЛЬГА Start : 01-May-2015 End : 12-Feb-2016 Inactive Comment on above: 2 tabs bid for 3 day s , 1 tab bid for 3 days , then 1 tab daily for 3 days then 1/2 tab daily 6 days Take 4 tabs daily fo r 3 days, then 2 tabs daily for 3 days, then 1 tab daily for 3 days with food. Take 1 tablet by toby th once daily. Take 4 tabs daily x5 days, then 2 tabs daily for 5 days, then 1 tab daily for 5 days. pregabalin 50 mg oral capsule (7 sources) Start: End: take 1 capsule by mouth twice daily Pregabalin (Lyrica) 50 mg capsule Discontinued 50 mg PO TWICE A DAY 60 1 January 24, 2019 12:00am February 15, 2019 4:33pm promethazine hydrochloride 25 mg oral tablet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 upper outer quadrant with placement of a minicork biopsy marker. Procedure was successful. Waiting for pathology result. An amendment will be issued to this report when pathology results become available. The minicork biopsy marker is in appropriate position at the calcifications. The specimen radiograph includes calcifications. Interpreting Radiologist: Elizabeth Meza M.D. Electronically signed on: 02/07/2025 Clam Treader: TESFAYE Transcribe Date/Time: Feb 07 2025 1:34P Dictated by: ELIZABETH MEZA MD This examination was interpreted and the report reviewed and electronically signed by: ELIZABETH MEZA MD on Feb 07 2025 3:50PM [facility] DIVISION OF RADIOLOGY * * *Final Report* * * DATE OF EXAM: Feb 07 2025 1:40PM W 0631 - MARK STEREO BX BREAST RT / PROCEDURE REASON: Mammographic microcalcification found on diagnostic imaging of breast * * * * Physician Interpretation * * * * RESULT: [facility] [address] [place] [address] #[id number] - MARK STEREO BX BREAST RT HISTORY: 79 year old patient presents for a stereotactic biopsy of the following: Site 1: Calcifications located in the right breast in the upper outer quadrant PATIENT CONSENT: A time out was performed immediately prior to procedure start with the radiology team, correctly identifying the patient name, date of , procedure, anatomy (including marking of site and side), patient position, relevant diagnostic and radiology test results, safety precautions, and procedure-specific equipment needs. The procedure, along with the risks (including, but not limited to, infection and bleeding), benefits, and alternatives, was explained to the patient by the performing physician. The patient agreed to undergo the procedure. Medications and allergies were also reviewed. The radiologist and technologist were present throughout the entire procedure. PROCEDURE: Correlation is made to exams dated: 12/05/2023 (mammogram), 12/28/2023 (mammogram), 06/05/2024 (mammogram) and 01/01/2025 (mammogram). Site 1: Calcifications located in the right breast in the upper outer quadrant Audible Time Out: 1319 Procedure Start: 1320 Procedure End: 1335 A stereotactic biopsy was performed for the calcifications located in the right breast in the upper outer quadrant. This was described on the previous mammography report. The skin was prepped in the usual manner. The abnormality was approached from the lateral aspect using an upright table. 15 ml of local anesthetic agent was administered. A 12 gauge biopsy needle was placed adjacent to the calcifications under computer guidance and confirmatory stereotactic mammography images were obtained to document needle placement. Once the needle was documented to be in the correct location, 12 samples were obtained using the vacuum-assisted system. A minicork biopsy marker was then placed under mammogram guidance. A skin closure strip and a sterile dressing were applied to the access site. There were no biopsy complications observed. The specimen was sent to the laboratory for pathological analysis. Post-procedure mammogram: The minicork biopsy marker is in appropriate position at the calcifications. Post-procedure mammogram density: There are scattered areas of fibroglandular density. DIVISION OF RADIOLOGY Provider, [facility] - 02/07/2025 * * *Final Report* * * DATE OF EXAM: Feb 07 2025 1:40PM SSW 0631 - MARK STEREO BX BREAST RT / PROCEDURE REASON: Mammographic microcalcification found on diagnostic imaging of breast * * * * Physician Interpretation * * * * RESULT: [facility] [address] [place] [address] #[id number] - MARK STEREO BX BREAST RT HISTORY: 79 year old patient presents for a stereotactic biopsy of the following: Site 1: Calcifications located in the right breast in the upper outer quadrant PATIENT CONSENT: A time out was performed immediately prior to procedure start with the radiology team, correctly identifying the patient name, date of , procedure, anatomy (including marking of site and side), patient position, relevant diagnostic and radiology test results, safety precautions, and procedure-specific equipment needs. The procedure, along with the risks (including, but not limited to, infection and bleeding), benefits, and alternatives, was explained to the patient by the performing physician. The patient agreed to undergo the procedure. Medications and allergies were also reviewed. The radiologist and technologist were present throughout the entire procedure. PROCEDURE: Correlation is made to exams dated: 12/05/2023 (mammogram), 12/28/2023 (mammogram), 06/05/2024 (mammogram) and 01/01/2025 (mammogram). Site 1: Calcifications located in the right breast in the upper outer quadrant Audible Time Out: 1319 Procedure Start: 1320 Procedure End: 1335 A stereotactic biopsy was performed for the calcifications located in the right breast in the upper outer quadrant. This was described on the previous mammography report. The skin was prepped in the usual manner. The abnormality was approached from the lateral aspect using an upright table. 15 ml of local anesthetic agent was administered. A 12 gauge biopsy needle was placed adjacent to the calcifications under computer guidance and confirmatory stereotactic mammography images were obtained to document needle placement. Once the needle was documented to be in the correct location, 12 samples were obtained using the vacuum-assisted system. A minicork biopsy marker was then placed under mammogram guidance. A skin closure strip and a sterile dressing were applied to the access site. There were no biopsy complications observed. The specimen was sent to the laboratory for pathological analysis. Post-procedure mammogram: The minicork biopsy marker is in appropriate position at the calcifications. Post-procedure mammogram density: There are scattered areas of fibroglandular density. IMPRESSION IMPRESSION: STEREOTACTIC GUIDED BIOPSY Site 1: Stereotactic biopsy of calcifications located in the right breast in the upper outer quadrant with placement of a minicork biopsy marker. Procedure was successful. Waiting for pathology result. An amendment will be issued to this report when pathology results become available. The minicork biopsy marker is in appropriate position at the calcifications. The specimen radiograph includes calcifications. Interpreting Radiologist: Elizabeth Meza M.D. Electronically signed on: 02/07/2025 Clam Treader: TESFAYE Transcribe Date/Time: Feb 07 2025 1:34P Dictated by: ELIZABETH MEZA MD This examination was interpreted and the report reviewed and electronically signed by: ELIZABETH MEZA MD on Feb 07 2025 3:50PM EST [facility] Radiology Study observation (narrative) [facility] MG stereo Guidance for biops y of Breast - rightOrdered By: [facility]cf Provider on 02-07-2025 [facility] Pathology biopsy report Gonzales (Tiss)on 02-07-2025 AP DISCLAIMER Normal [facility] Comment on above: Order Comment: Speci men Type: TISSUE SPECIMENOrdering Facility: [facility] Address: [address] [place] [address] Result Comment: Mayi duron Developed Test (LDT) Disclaimer:Performance characteristics of immunohistochemical, immunofluorescent, and chromogenic in-situ hybridization tests have been determined by the performing laboratory within [facility]'s [facility] Pathology and Laboratory Medicine Department ([facility], [facility], [facility], [facility], [facility], Replaced By [facility], or [facility]) in a manner consistent with CLIA requirements. One or more of these tests may not have been cleared or approved by the FDA. RT-PLM is regulated under CLIA as qualified to perform high-complexity testing. These tests are used for clinical purposes. These should not be regarded as investigational or for research. Positive and negative controls stain appropriately. Performed By: #### 6 6121-5 ####[facility] LABCLIA [id number] [place] [address] [place] CASE REPORT Normal [facility] Comment on above: Order Comment: Speci men Type: TISSUE SPECIMENOrdering Facility: [facility] Address: [address] [place] [address] Result Comment: Surg ical Pathology Report Case: [id number] Provider: Elizabeth Meza MD Collected: 02/07/2025 12:25 PMOrdering Location: Mammography Received: 02/07/2025 02:08 PMPathologist: Arnold Mendoza MDSpecimen: Breast, Right, Core Biopsy, Calcs UOQ, Mini Cork clip, Rt Breast Stereo Core Bx Performed By: #### 6 6121-5 ####[facility] LABCLIA [id number] [address] STATES OF [facility] FINAL DIAGNOSIS Normal [facility] Comment on above: Order Comment: Speci men Type: TISSUE SPECIMENOrdering Facility: [facility] Address: [address] [place] [address] Result Comment: A. R ight breast, UOQ, stereotactic-guided core biopsy, with mini cork clip placement:- Breast parenchyma with stromal fibrosis, usual ductal hyperplasia, columnar cell change, and microcalcifications.JR 02/08/2025 at 1354 EDT Performed By: #### 6 6121-5 ####[facility] LABCLIA [id number] [address] [place] FINAL PERFORMING LAB Normal [facility] Comment on above: Order Comment: Speci men Type: TISSUE SPECIMENOrdering Facility: [facility] Address: [address] [place] [address] Result Comment: Diag nostic interpretation performed at: [facility], [address] [place], [place] [address] CLIA# [id number] Director: Ángel Morcoho MD Performed By: #### 6 6121-5 ####[facility] LABCLIA [id number] [address] [place] GROSS DESCRIPTION Normal [facility] Comment on above: Order Comment: Speci men Type: TISSUE SPECIMENOrdering Facility: [facility] Address: [address] [place] [address] Result Comment: A. B reast, Right, Core BiopsyReceived in formalin labeled as right breast are multiple segments of cylindrical tissue aggregate to 4.1 x 1.8 x 0.1 cm, chino-white to chino-brown and yellow and of a soft consistency. The specimen was removed from the patient at 12:25 on 02/07/2025. On the same day, the specimen was placed in formalin at 13:32. Totally submitted in formalin in two cassettes.DB February 07, 2025 10:42 PMGross examination performed at [facility], [facility] [place] [address] Performed By: #### 6 6121-5 ####[facility] LABCLIA [id number] [address] [id number] [facility] CNTHERAPYon 01-30-2025 CNTHERAPY Normal [facility] CNOVon 01-16-2025 CNOV Normal [facility] [id number] 01-11-2025 [id number] Normal [facility] Respiratory Cultureon 2024 RESPC Specimen is mostly s aliva and as such may not represent an accurate assessment of the patients' pulmonary/respiratory condition. Mixed normal respiratory jimena. No Streptococcus pneumoniae, beta-hemolytic Streptococcus or Staphylococcus aureus isolated. Normal [facility] Comment on above: Performed By: #### M 100.1999, M1.2400 #### [facility] Laboratory [address] [place], [place], [address] CNTHERAPYon 01-09-2025 CNTHERAPY Normal [facility] Gram Stainon 01-09-2025 GS Specimen is mostly s aliva and as such may not represent an accurate assessment of the patients' pulmonary/respiratory condition. Acceptable Specimen? Yes (<25 Epithelial cells per/lpf) Gram Stain 3+ Gram positive cocci 2+ Gram positive rods 1+ Gram negative rods 1+ Epithelial cells Normal [facility] Comment on above: Performed By: #### M 100.1999, M100.2400 #### [facility] [address] [place], [place], [address] Gram stainOrdered By: Trey Corona on 01-09-2025 Microscopic observation Gram stain Nom (Unsp spec) [facility] Microbial respiratory cultur eOrdered By: Trisha Corona on 01-09-2025 Microorganism identified Cx Nom (Unsp spec) or Staphylococcus aureus isolated. [facility] Pulmonary Visit Reporton Pulmonary Visit Report [facility] [address] [place] [address] OFFICE VISIT Date of Service: 01/08/25 MR#: [id number] Acct: [id number] Name: CHIARA CROFT Rep #: [id number] : 1945 Provider: PHOENIX Corona Age/Sex: 79/F Location: [facility] Status: Signed Assessment and Plan Assessment and Plan (1) Asthma: Status: Chronic Qualifiers: Asthma severity: moderate Asthma persistence: persistent Asthma complication type: with acute exacerbation Qualified Code(s): J45.41 - Moderate persistent asthma with (acute) exacerbation Plan: NIOX procedure performed in the office today returned within elevated range. However, the patient has not recently been on her maintenance inhaled corticosteroid. She was asked to provide a sputum for culture and sensitivity. She was provided with a sputum cup. She was instructed that once we are able to view sputum results, if an antibiotic is indicated we will contact the patient with recommendations. I did switch her from Arnuity, which is a powdered inhaler, to Flovent HFA. Patient has had recurrent thrush. She does have a spacer at home, and if she was switched to the HFA device would be able to utilize it reducing her risk of recurrent thrush. She will contact the office if this is not covered by her insurance provider. No additional testing today. Return to the office in 3 months. Contact the office with any new or worsening symptoms in the meantime. (2) Oral thrush: Status: Acute Plan: Recurrent. She has already been through 1 course of nystatin ordered by urgent care. I would like to place her on fluconazole, however there is an interaction between fluconazole and her Plavix. She is going to contact her primary care doctor and ask if Plavix could be held for a few days while she treats the thrush. She will contact our office either by phone or through the portal with an update. Once we are aware, the appropriate medication will be ordered. She is aware that if we are not able to treat her with fluconazole the only other option would be to repeat nystatin. (3) Postnasal drip: Status: Acute Plan: More problematic. Adding azelastine. Orders: Orders NIOX Today R05.9 - Cough, unspecified Culture, Sputum Today R05.9 - Cough, unspecified Medications: New fluticasone propionate 220 mcg/actuation (Flovent HFA) administer with spacer 2 inhalations inhalation BID 12 grams 6RF R05.9 - Cough, unspecified azelastine administer into each nostril 1 spray intranasal BID 30 mL 11RF Discontinued fluticasone furoate 200 mcg/actuation (Arnuity Ellipta) administer at approximately the same time(s) each day Discontinued Reason: Order Changed 1 inh inhalation QDAY 3 ea 3RF Plan Details Additional Comments: This note was generated with [employer] dictation software. It may contain incorrect words, spelling, and punctuation that were not noted in checking the note before signing. Follow Up: 3 Months (CSM) HPI 3 wk fu Chief Complaint: Return of thrush HPI Comments Details: This patient presents to the office today for a routine follow up of her asthma. She is ambulatory and accompanied today by her . She has not recently been seen in the ED for any respiratory problems. She was seen in the urgent care for evaluation for thrush, which was discovered and treated with nystatin. She has not required additional antibiotics or prednisone since last office visit. She has not been compliant with the use of Arnuity 1 puff daily. She did not use Arnuity while she was on the prednisone taper. She admits that she has not resumed the use of Arnuity due to thrush and she felt as though it was causing bronchospasm. She continues compliance with Flonase and loratadine. She is utilizing DuoNebs 3 times daily. She has been utilizing Mucinex twice daily. If you recall, she quit smoking back in 1968, she has a light and distant smoking history. She does have shortness of breath which is improving. She has a daily cough that is productive of yellow-colored sputum. Sometimes it is difficult to expectorate despite the use of Mucinex. She feels chest tightness and congestion. She continues to experience postnasal drip despite being on Flonase. She would like to have azelastine reordered. Shelf that it was helpful in controlling her postnasal drip. She denies any chest pain or palpitations. She has not had any fever, chills or body aches. Intake Vital Signs 12/18/24 11:44 01/08/25 07:51 Height 5 ft 3 in 5 ft 3 in Weight: 148 lb 150 lb BMI 26.2 26.5 BP 136/77 H 123/76 H Blood Pressure Location Lt brachial Lt brachial Position Sitting Sitting Respiration 20 H 18 Pulse 74 78 Pulse Source Monitor Monitor Temp 97.4 F L 97.4 F L Temperature Source Temporal Artery Temporal (more content not included)... Normal [facility] DBT Breast - bilateral diagn ostic for implanton 01-01-2025 IMPRESSION: Calcifications in the upper outer quadrant of the right breast, posterior depth are suspicious for malignancy. Stereotactic biopsy is recommended. BI-RADS Category 4: Suspicious RISK: Based on the Tyrer-Cuzick (TC) risk assessment model, this patient has a 0.8% lifetime risk of developing breast cancer, meaning they are at average risk for developing breast cancer. However, this is only an estimate based on available history provided on the patient's questionnaire. We encourage all patients to talk with their providers about these results, further recommendations for managing breast health, and appropriate supplemental screening options if the patient has dense breast tissue. Interpreting Radiologist: Ross Jonas M.D. Electronically signed on: 01/01/2025 Clam Treader: TESFAYE Transcribe Date/Time: Jan 01 2025 9:55A Dictated by: ROSS JONAS MD This examination was interpreted and the report reviewed and electronically signed by: ROSS JONAS MD on Jan 01 2025 11:06AM [facility] DIVISION OF RADIOLOGY * * *Final Report* * * DATE OF EXAM: Jan 01 2025 10:19AM [facility] 0627 - MARK AMADOU [place] / PROCEDURE REASON: Inconclusive mammogram * * * * Physician Interpretation * * * * RESULT: [place] [address] [address] [id number] #[id number] - MARK DIAG W CHIQUITA MARCELO HISTORY: 79 year-old patient seen for diagnostic evaluation of short term follow-up from a previous mammogram in the right breast. Patient states no personal history of breast cancer. COMPARISON STUDIES: The present examination has been compared to prior imaging studies dated 12/05/2023 (mammogram), 12/28/2023 (mammogram) and 06/05/2024 (mammogram). MAMMOGRAM TECHNIQUE: The study was acquired using full field digital technology and interpreted from soft copy. Digital Breast Tomosynthesis (DBT) images were obtained and used to assist in the interpretation of this examination. MAMMOGRAM FINDINGS: There are scattered areas of fibroglandular density. There are clustered fine pleomorphic calcifications in the upper outer quadrant of the right breast, posterior depth. No suspicious masses, calcifications or other abnormalities are seen in the left breast. DIVISION OF RADIOLOGY Provider, [facility] - 01/01/2025 * * *Final Report* * * DATE OF EXAM: Jan 01 2025 10:19AM [facility] 0627 - [facility] AMADOU ZIMMERMAN MARCELO / PROCEDURE REASON: Inconclusive mammogram * * * * Physician Interpretation * * * * RESULT: [place] [address] #[id number] - [facility] AMADOU CASEYO MARCELO HISTORY: 79 year-old patient seen for diagnostic evaluation of short term follow-up from a previous mammogram in the right breast. Patient states no personal history of breast cancer. COMPARISON STUDIES: The present examination has been compared to prior imaging studies dated 12/05/2023 (mammogram), 12/28/2023 (mammogram) and 06/05/2024 (mammogram). MAMMOGRAM TECHNIQUE: The study was acquired using full field digital technology and interpreted from soft copy. Digital Breast Tomosynthesis (DBT) images were obtained and used to assist in the interpretation of this examination. MAMMOGRAM FINDINGS: There are scattered areas of fibroglandular density. There are clustered fine pleomorphic calcifications in the upper outer quadrant of the right breast, posterior depth. No suspicious masses, calcifications or other abnormalities are seen in the left breast. IMPRESSION IMPRESSION: Calcifications in the upper outer quadrant of the right breast, posterior depth are suspicious for malignancy. Stereotactic biopsy is recommended. BI-RADS Category 4: Suspicious RISK: Based on the Tyrer-Cuzick (TC) risk assessment model, this patient has a 0.8% lifetime risk of developing breast cancer, meaning they are at average risk for developing breast cancer. However, this is only an estimate based on available history provided on the patient's questionnaire. We encourage all patients to talk with their providers about these results, further recommendations for managing breast health, and appropriate supplemental screening options if the patient has dense breast tissue. Interpreting Radiologist: Ross Jonas M.D. Electronically signed on: 01/01/2025 Clam Treader: TESFAYE Transcribe Date/Time: Jan 01 2025 9:55A Dictated by: ROSS JONAS MD This examination was interpreted and the report reviewed and electronically signed by: ROSS JONAS MD on Jan 01 2025 11:06AM EST [facility] Radiology Study observation (narrative) [facility] DBT Breast - bilateral diagn ostic for implantOrdered By: Ccf Provider on 01-01-2025 [facility] MARK DIAG W CHIQUITA BILon 2024 MARK DIAG W CHIQUITA MARECLO Normal [facility] CNOVon 12-27-2024 CNOV Normal [facility] Fungus Spec Culton Fungus identified Cx Nom (Unsp spec) ORGANISM ID: 1 Few Valdemar albicans Normal [facility] Comment on above: Performed By: #### 5 80-1 ####[facility] LABCLIA [id number] [place] [address] [place] STREP A MOLECULAR (POC)on Procedural Control Valid [facility] Strep A (POCT) Negative Negative [facility] XR CHEST 2V FRONTAL/LATon XR CHEST 2V FRONTAL/LAT Normal [facility] XR Chest PA and Lateralon IMPRESSION: No acute radiographic abnormality. Clam Treader: LIUDMILA Transcribe Date/Time: Dec 27 2024 1:38P Dictated by : JP ZELAYA MD This examination was interpreted and the report reviewed and electronically signed by: JP ZELAYA MD on Dec 27 2024 1:40PM EST DIVISION OF RADIOLOGY * * *Final Report* * * DATE OF EXAM: Dec 27 2024 1:21PM WOX 5291 - XR CHEST 2V FRONTAL/LAT / PROCEDURE REASON: Acute cough * * * * Physician Interpretation * * * * EXAMINATION: CHEST RADIOGRAPH (2 VIEW FRONTAL & LATERAL) CLINICAL HISTORY: Acute cough MQ: XC2_6 EXAM DATE/TIME: 12/27/2024 1:21 PM COMPARISON: 04/02/2024 RESULT: Lines, tubes, and devices: None. Lungs and pleura: No consolidation. No lung mass. No pleural effusion. No pneumothorax. Cardiomediastinal silhouette: Normal cardiomediastinal silhouette. Bones and soft tissues: Unremarkable. DIVISION OF RADIOLOGY Provider, Elizabeth Lopez - 12/27/2024 * * *Final Report* * * DATE OF EXAM: Dec 27 2024 1:21PM WOX 5291 - XR CHEST 2V FRONTAL/LAT / PROCEDURE REASON: Acute cough * * * * Physician Interpretation * * * * EXAMINATION: CHEST RADIOGRAPH (2 VIEW FRONTAL & LATERAL) CLINICAL HISTORY: Acute cough MQ: XC2_6 EXAM DATE/TIME: 12/27/2024 1:21 PM COMPARISON: 04/02/2024 RESULT: Lines, tubes, and devices: None. Lungs and pleura: No consolidation. No lung mass. No pleural effusion. No pneumothorax. Cardiomediastinal silhouette: Normal cardiomediastinal silhouette. Bones and soft tissues: Unremarkable. IMPRESSION IMPRESSION: No acute radiographic abnormality. Clam Treader: PSCB Transcribe Date/Time: Dec 27 2024 1:38P Dictated by : JP ZELAYA MD This examination was interpreted and the report reviewed and electronically signed by: JP ZELAYA MD on Dec 27 2024 1:40PM EST [facility] Radiology Study observation (narrative) [facility] XR Chest PA and LateralOrder ed By: Cc Provider on 12-27-2024 [facility] Pulmonary Visit Reporton Pulmonary Visit Report [facility] Pulmonary Medicine of [address] [place] [address] OFFICE VISIT Date of Service: 12/18/24 MR#: [id number] Acct: [id number] Name: CHIARA CROFT Rep #: [id number] : [id number] Provider: PHOENIX Corona Age/Sex: 79/F [facility] Status: Signed Assessment and Plan Assessment and Plan (1) Asthma: Status: Chronic Qualifiers: Asthma complication type: with acute exacerbation Asthma persistence: persistent Asthma severity: moderate Qualified Code(s): J45.41 - Moderate persistent asthma with (acute) exacerbation Plan: Deteriorated. Physical exam and auscultation are consistent with severe exacerbation of asthma, possible pneumonia. She has already been on a round of Keflex, which was incidentally for cellulitis of the leg. She then was treated with a Z-Devon, which has been considered failed. She was on a prednisone burst, which she completed yesterday. NIOX procedure performed in the office today returned within normal limits, however this may be unreliable due to recent completion of prednisone. I am going to place her on a prednisone taper, placing her on a course of Augmentin. I have asked her to complete at least 5 days of Augmentin, and if she does not experience abdominal upset or diarrhea to complete a full 10 days on the Augmentin. I have provided her with a nebulizer in the office today and ordered DuoNebs. She was encouraged to use them at least 3 times daily, upwards of every 6 hours if needed. She will use them 3 times daily through the next 7 to 10 days. Once symptoms start to improve she may utilize it as needed. Return to the office in 2 to 3 weeks to evaluate for improvement. Respiratory molecular panel sent today to evaluate for viral etiology. We will contact the patient by phone once test results are available. Orders: Orders NIOX Today J45.909 - Unspecified asthma, uncomplicated RESPIRATORY PANEL MOLECULAR Today R50.9 - Fever, unspecified Medications: New ipratropium-albuterol 0.5 mg-3 mg(2.5 mg base)/3 mL 3 mL inhalation Q4H PRN PRN 180 mL 6RF SOB /OR WHEEZING R50.9 - Fever, unspecified prednisone take 4 tabs for three days, then 3 tabs for three days, then 2 tabs for three days, then 1 tab for 3 days 10 mg PO QDAY 12 days 30 tabs 0RF R50.9 - Fever, unspecified amoxicillin-pot clavulanate 875-125 mg 1 TAB PO BID 10 days 20 tabs 0RF R50.9 - Fever, unspecified Discontinued prednisone administer with food or milk Discontinued Reason: By Stop Date 60 mg (3 x 20 mg) PO QDAY 5 days 15 tabs 0RF azithromycin Discontinued Reason: Order Completed Day 1: 500 mg po, Days 2-5: 250mg po daily orally daily; 5 days 3 tabs 0RF Plan Details Additional Comments: This note was generated with [employer] dictation software. It may contain incorrect words, spelling, and punctuation that were not noted in checking the note before signing. Follow Up: 2 Weeks ([facility]) HPI Acute Chief Complaint: Shortness of breath HPI Comments Details: This patient presents to the office today for an acute visit regarding cough and wheezing. She is ambulatory and accompanied today by her . She is wearing a surgical mask. She contacted the office this morning reporting that she had finished the steroid that this office had ordered last week. She was seen in the urgent care over the weekend because she continued to experience cough, wheeze and the production of yellow-colored mucus. They treated her with a Z-Devon and prescribed Tessalon Perles. The patient reported this morning that she continues to have coughing and wheezing despite both of these medications. She has been utilizing her rescue inhaler 4 times per day with little to no relief. She is also reporting chest congestion. If you recall, she initially contacted the office on December 12, 2024 reporting that she had recently been on a trip out of state and had developed sore throat, sore tongue, shortness of breath and wheezing. Symptoms started on approximately December 08, 2024. She was incidentally on a course of Keflex for cellulitis at that time. She was ordered a prednisone burst. Symptoms did not improve, and in fact progressively got worse, including a low-grade fever. Urgent care visit from December 15, 2024 reviewed. The patient noted sinus pressure and nasal congestion, runny nose and shortness of breath. She was diagnosed with bronchitis due to tobacco use and prescribed a Z-Devon and Tessalon Perles. She continues compliance with the use of Arnuity 1 puff daily. She notes that it has been very difficult to inhale the powdered inhaler recently. She continues compliance with Flonase and loratadine. She has been utilizing Mucinex twice daily. If you recall, she quit smoking back in 1968, she has a light and distant smoking history. Today she is experiencing shor (more content not included)... Normal [facility] RESPIRATORY PANEL MOLECULARo n 12-18-2024 RP PANEL Normal Reference Ran ge = Not Detected Resp path DNA+RNA Pnl Resp AZRA+probe Nucleic acid amplification test method ADENOVIRUS Not Detected INFLUENZA A Not Detected INFLUENZA A (SUBTYPE H1) Not Detected INFLUENZA A (SUBTYPE H3) Not Detected INFLUENZA B Not Detected HUMAN METAPHNEUMO A Positive for HUMAN METAPHNEUMO VIRUS by NAAT technologyA PARAINFLUENZA 1 Not Detected PARAINFLUENZA 2 Not Detected PARAINFLUENZA 3 Not Detected PARAINFLUENZA 4 Not Detected RHINOVIRUS Not Detected RSV A Not Detected RSV B Not Detected HUMAN META * This is an amended result. * A prior result that was reported as final has been changed. 12/19/24 0809 by MILAGROS Normal [facility] Comment on above: Performed By: #### M 100.638 #### [facility] [address] [place], [place], [address] Respiratory pathogens detect ion panel by molecular detection methodOrdered By: Trisha Corona on 12-18-2024 Respiratory pathogens DNA and RNA panel AZRA+probe (Resp) Human [place] Abnormal [facility] Urgent Care Visit Reporton 0 12-15-2024 Urgent Care Visit Report [facility] [address], [address] [place], [place] [address] OFFICE VISIT Date of Service: 12/15/24 MR#: [id number] Acct: [id number] Name: CHIARA CROFT Rep #: [id number] : [id number] Provider: Berna Michaels Age/Sex: 79/F Location: [facility] Status: Signed with Addenda ADDENDUM by VIJI Michaels on 03/15/25 at 1540 HPI Details: CHIARA CROFT, is a 79 F who presents to the office today for Assessment and Plan Assessment and Plan (1) Bronchitis due to tobacco use: Status: Acute Comment: Patient diagnosis was inadvertently entered incorrectly. Correction: #1 Bronchitis Medications: New azithromycin Day 1: 500 mg po, Days 2-5: 250mg po daily orally daily; 5 days 3 tabs 0RF benzonatate 200 mg PO TID 7 days 21 caps 0RF Discontinued prednisone administer with food or milk Discontinued Reason: By Stop Date 60 mg (3 x 20 mg) PO QDAY 5 days 15 tabs 0RF fluconazole Discontinued Reason: By Stop Date 100 mg PO QDAY 5 days 5 tabs 0RF 03/15/25 1540 Date Brooke Pryor cc: * Signed Intake Vital Signs 05/17/24 14:44 12/15/24 11:32 Height 5 ft 3 in 5 ft 3 in Weight: 147 lb 8 oz BMI 26.1 BP 128/80 H Position Sitting Pulse 78 Temp 98.0 F Temp Source Oral Pulse Oximetry (%) 99 Oxygen Delivery Method room air Intake Visit Reasons: ASTHMA FLARE UP, GREEN MUCUS Accompanied by: Self Allergies bupropion Allergy (Mild, Verified 12/15/24 11:10) tremor duloxetine Allergy (Verified 12/15/24 11:10) tremor sulfamethoxazole (From Septra) Allergy (Verified 12/15/24 11:10) Hives trimethoprim (From Septra) Allergy (Verified 12/15/24 11:10) Hives alendronate sodium (From Fosamax) Adverse Reaction (Severe, Verified 12/15/24 11:10) Reflux Medications ???Medication ???Instructions ???Recorded ???Confirmed ???Type calcium 200 mg (as 1 tab PO DAILY 08/18/17 05/17/24 H istory citrate)-vitamin D3 6.25 mcg (250 unit) tablet ([place] Calcium) fluticasone propionate 50 1 spray intranasal BID PRN 8 12/15/24 History mcg/actuation nasal allergies spray,suspension (Flonase Allergy Relief) cholecalciferol (vitamin D3) 25 1,000 unit PO ONCE supplement 04/2205/17/24 History mcg (1,000 unit) capsule denosumab 60 mg/mL subcutaneous 60 mg subcut [id number] cholesterol 08/19/20 12/15/24 Rx syringe (Prolia) #1 mL lidocaine 4 % topical patch 1 patch topical DAILY PRN pain 08/1112/15/24 History (Aspercreme (lidocaine)) biotin 2,500 mcg capsule 2,500 mcg PO DAILY supplement 11/2005/17/24 History loratadine 10 mg tablet (Claritin) 10 mg PO DAILY PRN seasonal 11/2012/15/24 History allergies omega 3-yxs-tez-fish oil 60 mg-90 1 cap PO DAILY 11/30/21 05/17/24 History mg-500 mg capsule (Fish Oil) Lactobacillus rhamnosus GG 10 1 cap PO BID 06/16/23 05/17/24 His tory billion cell capsule (Culturelle) clopidogrel 75 mg tablet (Plavix) 75 mg PO QPM blood thinner 12/15/24 History lansoprazole 15 mg capsule,delayed 15 mg PO QPM acid reflux 3 12/15/24 History release losartan 50 mg tablet 75 mg PO QPM blood pressure 12/15/24 History albuterol sulfate 90 mcg/actuation 2 puff inhalation Q4H PRN 12/15/24 Rx aerosol inhaler shortness of breath or wheezing #1 device spacer #1 ea 09/05/23 05/17/24 Rx gabapentin 100 mg capsule 200 mg PO BID 11/02/23 05/17/24 Hi story guaifenesin 1,200 mg tablet, 1,200 mg PO BID Congestion 4 12/15/24 History extended release 12 hr (Mucinex) hydrocodone-acetaminophen 5-325mg 1 tab PO Pain 05/08/24 12/15/24 H istory 5mg-325mg levothyroxine 88 mcg capsule 88 mcg PO QDAY 05/08/24 12/15/24 H istory fluticasone furoate 200 1 inh inhalation QDAY #3 ea 12/15/24 Rx mcg/actuation blister powder for inhalation (Arnuity Ellipta) prednisone 20 mg tablet 60 mg (3 x 20 mg) PO QDAY 5 days 0 12/13/24 12/15/24 Rx #15 tabs azithromycin 500 mg tablet See Rx Instructions PO QDAY 5 days 12/15/24 12/15/24 Rx #3 tabs benzonatate 200 mg capsule 200 mg PO TID 7 days #21 caps /02/1312/15/24 Rx pravastatin 10 mg tablet 10 mg PO QDAY 12/15/24 12/15/24 Hi story Have you fallen in the past year?: No Nurse's Note: Patient has sinus pressure with nasal congestion and a Runny nose and some SOB and isn't sleeping well. 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 [facility] Medical History Abnormal chest x-ray Chronic hyponatremia Abdominal discomfort Arthri (more content not included)... Normal [facility] CNOVon 12-12-2024 CNOV Normal [facility] CNOVon 12-04-2024 CNOV Normal [facility] XR TIBIA FIBULA 2V AP/LAT RT on 12-04-2024 XR TIBIA FIBULA 2V AP/LAT RT Normal [facility] XR Tibia and Fibula - right AP and Lateralon 12-04-2024 IMPRESSION: No acute pathology identified Clam Treader: LIUDMILA Transcribe Date/Time: Dec 04 2024 12:02P Dictated by : SAMANTA TAYLOR DO This examination was interpreted and the report reviewed and electronically signed by: SAMANTA TAYLOR DO on Dec 04 2024 12:13PM [facility] DIVISION OF RADIOLOGY * * *Final Report* * * DATE OF EXAM: Dec 04 2024 11:56AM WOX 5266 - XR TIBIA FIBULA 2V AP/LAT RT / PROCEDURE REASON: Leg injury, right, initial encounter * * * * Physician Interpretation * * * * EXAM(s): XR TIBIA FIBULA 2V AP/LAT RT..... HISTORY: 79 years old Clinical information: Leg injury, right, initial encounter pt fell 8 days ago and hit anterior mid tib/fib on door frame. Small wound with pain and redness anterior gibson indicated by arrow. Possible infection. TECHNIQUE: Images: XR TIBIA FIBULA 2V AP/LAT RT Comparison: None. RESULT: Findings: No fractures or dislocations are seen. DIVISION OF RADIOLOGY Provider, [facility] - 12/04/2024 * * *Final Report* * * DATE OF EXAM: Dec 04 2024 11:56AM WOX 5266 - XR TIBIA FIBULA 2V AP/LAT RT / PROCEDURE REASON: Leg injury, right, initial encounter * * * * Physician Interpretation * * * * EXAM(s): XR TIBIA FIBULA 2V AP/LAT RT..... HISTORY: 79 years old Clinical information: Leg injury, right, initial encounter pt fell 8 days ago and hit anterior mid tib/fib on door frame. Small wound with pain and redness anterior gibson indicated by arrow. Possible infection. TECHNIQUE: Images: XR TIBIA FIBULA 2V AP/LAT RT Comparison: None. RESULT: Findings: No fractures or dislocations are seen. IMPRESSION IMPRESSION: No acute pathology identified Clam Treader: PSCB Transcribe Date/Time: Dec 04 2024 12:02P Dictated by : SAMANTA TAYLOR DO This examination was interpreted and the report reviewed and electronically signed by: SAMANTA TAYLOR DO on Dec 04 2024 12:13PM EST [facility] Radiology Study observation (narrative) [facility] XR Tibia and Fibula - right AP and LateralOrdered By: Ccf Provider on 12-04-2024 [facility] CNTHERAPYon 11-28-2024 CNTHERAPY Normal [facility] CNPTOUTREACHon 11-27-2024 CNPTOUTREACH Normal [facility] CBC W Auto Differential pane l (Bld)on 11-26-2024 Basophils (Bld) [#/Vol] 0.06 10*3/uL Normal <0.11 [facility] Comment on above: Order Comment: Speci men Type: BLOOD SPECIMENOrdering Facility: [facility] Address: [address] [place] [address] Performed By: #### 5 7021-8 ####[facility] LABCLIA [id number] [facility] [address], [place] [address] [place] Basophils/100 WBC (Bld) 0.7 % Normal [facility] Comment on above: Order Comment: Speci men Type: BLOOD SPECIMENOrdering Facility: [facility] Address: [address] [place] [address] Performed By: #### 5 7021-8 ####[facility] LABCLIA [id number] [address], [place] [address] [place] Differential cell count method Nom (Bld) Auto Normal [facility] Comment on above: Order Comment: Speci men Type: BLOOD SPECIMENOrdering Facility: [facility] Address: [address] [place] [address] Performed By: #### 5 7021-8 ####[facility] LABCLIA [id number] [address], [place] [address] [place] Eosinophils (Bld) [#/Vol] 0.10 10*3/uL Normal <0.46 [facility] Comment on above: Order Comment: Speci men Type: BLOOD SPECIMENOrdering Facility: [facility] Address: [address] [place] [address] Performed By: #### 5 7021-8 ####[facility] LABCLIA [id number] [place] [address] [place] Eosinophils/100 WBC (Bld) 1.2 % Normal [facility] Comment on above: Order Comment: Speci men Type: BLOOD SPECIMENOrdering Facility: [facility] Address: [address] [place] [address] Performed By: #### 5 7021-8 ####[facility] LABCLIA [id number] [place] [address] [place] Erythrocyte distribution width (RBC) [Ratio] 13.6 % Normal 11.5-15.0 [facility] Comment on above: Order Comment: Speci men Type: BLOOD SPECIMENOrdering Facility: [facility] Address: [address] [place] [address] Performed By: #### 5 7021-8 ####[facility] LABCLIA [id number] [place] [address] [place] Hematocrit (Bld) [Volume fraction] 43.6 % Normal 36.0-46.0 [facility] Comment on above: Order Comment: Speci men Type: BLOOD SPECIMENOrdering Facility: [facility] Address: [address] [place] [address] Performed By: #### 5 7021-8 ####[facility] LABCLIA [id number] [place] [address] [place] Hemoglobin (Bld) [Mass/Vol] 14.1 g/dL Normal 11.5-15.5 [facility] Comment on above: Order Comment: Speci men Type: BLOOD SPECIMENOrdering Facility: [facility] Address: [address] [place] [address] Performed By: #### 5 7021-8 ####[facility] LABCLIA [id number] [place] [address] [place] Immature granulocytes (Bld) [#/Vol] 10*3/uL Normal <0.10 [facility] Comment on above: Order Comment: Speci men Type: BLOOD SPECIMENOrdering Facility: [facility] Address: [address] [place] [address] Performed By: #### 5 7021-8 ####[facility] LABCLIA [id number] [place] [id number] [place] Immature granulocytes/100 WBC (Bld) 0.2 % Normal [facility] Comment on above: Order Comment: Speci men Type: BLOOD SPECIMENOrdering Facility: [facility] Address: [address] [place] [address] Performed By: #### 5 7021-8 ####[facility] LABCLIA [id number] [place] [address] [place] Lymphocytes (Bld) [#/Vol] 1.75 10*3/uL Normal 1.00-4.00 [facility] Comment on above: Order Comment: Speci men Type: BLOOD SPECIMENOrdering Facility: [facility] Address: [address] [place] [address] Performed By: #### 5 7021-8 ####[facility] LABCLIA [id number] [place] [address] [place] Lymphocytes/100 WBC (Bld) 20.9 % Normal [facility] Comment on above: Order Comment: Speci men Type: BLOOD SPECIMENOrdering Facility: [facility] Address: [address] [place] [address] Performed By: #### 5 7021-8 ####[facility] LABCLIA [id number] [place] [address] [place] MCH (RBC) [Entitic mass] 30.9 pg Normal 26.0-34.0 [facility] Comment on above: Order Comment: Speci men Type: BLOOD SPECIMENOrdering Facility: [facility] Address: [address] [place] [address] Performed By: #### 5 7021-8 ####[facility] LABCLIA [id number] [place] [address] [place] MCHC (RBC) [Mass/Vol] 32.3 g/dL Normal 30.5-36.0 [facility] Comment on above: Order Comment: Speci men Type: BLOOD SPECIMENOrdering Facility: [facility] Address: [address] [place] [address] Performed By: #### 5 7021-8 ####[facility] LABCLIA [id number] [place] [id number] [place] MCV (RBC) [Entitic vol] 95.4 fL Normal 80.0-100.0 [facility] Comment on above: Order Comment: Speci men Type: BLOOD SPECIMENOrdering Facility: [facility] Address: [address] [place] [address] Performed By: #### 5 7021-8 ####[facility] LABCLIA [id number] [address] [place] [address] [place] Monocytes (Bld) [#/Vol] 0.65 10*3/uL Normal <0.87 [facility] Comment on above: Order Comment: Speci men Type: BLOOD SPECIMENOrdering Facility: [facility] Address: [address] [place] [address] Performed By: #### 5 7021-8 ####[facility] LABCLIA [id number] [address], [place] [address] [place] Monocytes/100 WBC (Bld) 7.8 % Normal [facility] Comment on above: Order Comment: Speci men Type: BLOOD SPECIMENOrdering Facility: [facility] Address: [address] [place] [address] Performed By: #### 5 7021-8 ####[facility] LABCLIA [id number] [address], [facility] [place] Neutrophils (Bld) [#/Vol] 5.78 10*3/uL Normal 1.45-7.50 [facility] Comment on above: Order Comment: Speci men Type: BLOOD SPECIMENOrdering Facility: [facility] Address: [address] [place] [address] Performed By: #### 5 7021-8 ####[facility] LABCLIA [id number] [place] [id number] [place] Neutrophils/100 WBC (Bld) 69.2 % Normal [facility] Comment on above: Order Comment: Speci men Type: BLOOD SPECIMENOrdering Facility: [facility] Address: [address] [place] [address] Performed By: #### 5 7021-8 ####[facility] LABCLIA [id number] [address] [address] [place] Nucleated RBC (Bld) [#/Vol] 10*3/uL Normal <0.01 [facility] Comment on above: Order Comment: Speci men Type: BLOOD SPECIMENOrdering Facility: [facility] Address: [address] [place] [address] Performed By: #### 5 7021-8 ####[facility] LABCLIA [id number] [address], [place] [address] [place] Nucleated RBC/100 WBC (Bld) [Ratio] 0.0 /100 WBC Normal [facility] Comment on above: Order Comment: Speci men Type: BLOOD SPECIMENOrdering Facility: [facility] Address: [address] [place] [address] Performed By: #### 5 7021-8 ####[facility] LABIA [id number] [address], [place] [address] [place] Platelet mean volume (Bld) [Entitic vol] 9.5 fL Normal 9.0-12.7 [facility] Comment on above: Order Comment: Speci men Type: BLOOD SPECIMENOrdering Facility: [facility] Address: [address] [place] [address] Performed By: #### 5 7021-8 ####[facility] LABIA [id number] [place] [address] [place] Platelets (Bld) [#/Vol] 434 10*3/uL High 150-400 [facility] Comment on above: Order Comment: Speci men Type: BLOOD SPECIMENOrdering Facility: [facility] Address: [address] [place] [address] Performed By: #### 5 7021-8 ####[facility] LABCLIA [id number] [place] [id number] [place] RBC (Bld) [#/Vol] 4.57 10*6/uL Normal 3.90-5.20 [facility] Comment on above: Order Comment: Speci men Type: BLOOD SPECIMENOrdering Facility: [facility] Address: [address] [place] [address] Performed By: #### 5 7021-8 ####[facility] LABCLIA [id number] [facility] [address] [place] [address] [place] WBC (Bld) [#/Vol] 8.36 10*3/uL Normal 3.70-11.00 [facility] Comment on above: Order Comment: Speci men Type: BLOOD SPECIMENOrdering Facility: [facility] Address: [address] [place] [address] Performed By: #### 5 7021-8 ####[facility] LABCLIA [id number] [address] [place] [address] [place] Comprehensive metabolic 2000 panelon 11-26-2024 Albumin [Mass/Vol] 4.4 g/dL Normal 3.9-4.9 [facility] Comment on above: Order Comment: Speci men Type: BLOOD SPECIMENOrdering Facility: [facility] Address: [address] [place] [address] Performed By: #### 2 4323-8, 69050-2, 3024-7, 3016-3 ####[facility] LABCLIA [id number] [address] [address] [place] ALP [Catalytic activity/Vol] 56 U/L Normal 34-123 [facility] Comment on above: Order Comment: Speci men Type: BLOOD SPECIMENOrdering Facility: [facility] Address: [address] [place] [address] Performed By: #### 2 4323-8, 68416-3, 3024-7, 3016-3 ####[facility] LABCLIA [id number] [facility] [id number], [place] [address] [place] ALT [Catalytic activity/Vol] 13 U/L Normal 7-38 [facility] Comment on above: Order Comment: Speci men Type: BLOOD SPECIMENOrdering Facility: [facility] Address: [address] [place] [id number] Performed By: #### 2 4323-8, 46801-4, 3024-7, 3016-3 ####[facility] LABCLIA [id number] [address] [address] [place] Anion gap [Moles/Vol] 11 mmol/L Normal 8-15 [facility] Comment on above: Order Comment: Speci men Type: BLOOD SPECIMENOrdering Facility: [facility] Address: [address] [place] [address] Performed By: #### 2 4323-8, 78604-4, 3023-7, 6-3 ####[facility] LABCLIA [id number] [place] [id number] [place] AST [Catalytic activity/Vol] 17 U/L Normal 13-35 [facility] Comment on above: Order Comment: Speci men Type: BLOOD SPECIMENOrdering Facility: [facility] Address: [address] [place] [address] Performed By: #### 2 4323-8, 87963-3, 4-7, 3016-3 ####[facility] LABCLIA [id number] [address] [address] [place] Bilirubin [Mass/Vol] 0.4 mg/dL Normal 0.2-1.3 [facility] Comment on above: Order Comment: Speci men Type: BLOOD SPECIMENOrdering Facility: [facility] Address: [address] [place] [address] Performed By: #### 2 4323-8, 02889-9, 3023-7, 6-3 ####[facility] LABCLIA [id number] [address] [address] [place] Calcium [Mass/Vol] 10.0 mg/dL Normal 8.5-10.2 [facility] Comment on above: Order Comment: Speci men Type: BLOOD SPECIMENOrdering Facility: [facility] Address: [address] [place] [address] [place] [address] Performed By: #### 2 4323-8, 33301-1, 3024-7, 3016-3 ####[facility] LABCLIA [id number] [place] [id number] [place] Chloride [Moles/Vol] 100 mmol/L Normal 98-107 [facility] Comment on above: Order Comment: Speci men Type: BLOOD SPECIMENOrdering Facility: [facility] Address: [address] [place] [address] Performed By: #### 2 4323-8, 49272-9, 3023-7, 6-3 ####[facility] LABCLIA [id number] [place] [address] [place] CO2 [Moles/Vol] 25 mmol/L Normal 22-30 [facility] Comment on above: Order Comment: Speci men Type: BLOOD SPECIMENOrdering Facility: [facility] Address: [address] [place] [address] Performed By: #### 2 4323-8, 52507-1, 3023-7, 6-3 ####[facility] LABIA [id number] [place] [address] [place] Creatinine [Mass/Vol] 0.80 mg/dL Normal 0.58-0.96 [facility] Comment on above: Order Comment: Speci men Type: BLOOD SPECIMENOrdering Facility: [facility] Address: [address] [place] [address] Performed By: #### 2 4323-8, 52140-9, 302-7, 3016-3 ####[facility] LABCLIA [id number] [place] [id number] [place] Creatinine and Glomerular filtration rate.predicted panel (S/P/Bld) 75 mL/min/1.73m??? Normal >=60 [facility] Comment on above: Order Comment: Dionisio reeves Type: BLOOD SPECIMENOrdering Facility: [facility] Address: [address] [place] [address] Result Comment: Francesca mated Glomerular Filtration Rate (eGFR) is calculated using the 2020 CKD-EPI creatinine equation. This equation utilizes serum creatinine, sex, and age as parameters. The creatinine assay has traceable calibration to isotope dilution-mass spectrometry. Refer to KDIGO guidelines for clinical interpretation. In patients with unstable renal function, e.g. those with acute kidney injury, the eGFR may not accurately reflect actual GFR. Performed By: #### 2 4323-8, 08970-6, 3023-7, 6-3 ####[facility] LABIA [id number] [address] [address] [place] Glucose [Mass/Vol] 113 mg/dL High 74-99 [facility] Comment on above: Order Comment: Dionisio reeves Type: BLOOD SPECIMENOrdering Facility: [facility] Address: [address] [place] [address] Result Comment: The [place] [employer] (ADA) provides guidance for cutoff values for fasting glucose and random glucose. The ADA defines fasting as no caloric intake for at least 8 hours. Fasting plasma glucose results between 100 to 125 mg/dL indicate increased risk for diabetes (prediabetes).Fasting plasma glucose results greater than or equal to 126 mg/dL meet the criteria for diagnosis of diabetes. In the absence of unequivocal hyperglycemia, results should be confirmed by repeat testing. In a patient with classic symptoms of hyperglycemia or hyperglycemic crisis, random plasma glucose results greater than or equal to 200 mg/dL meet the criteria for diagnosis of diabetes.Reference: Standards of Medical Care in Diabetes 2016, [place] [employer]. Diabetes Care. 2016.39(Suppl 1). Performed By: #### 2 4323-8, 12074-5, 3024-7, 3016-3 ####[facility] LABCLIA [id number] [address] [address] [place] Potassium [Moles/Vol] 4.8 mmol/L Normal 3.7-5.1 [facility] Comment on above: Order Comment: Speci men Type: BLOOD SPECIMENOrdering Facility: [facility] Address: [address] [place] [address] Performed By: #### 2 4323-8, 60462-2, 302-7, 3016-3 ####[facility] LABCLIA [id number] [address] [address] [place] Protein [Mass/Vol] 7.3 g/dL Normal 6.3-8.0 [facility] Comment on above: Order Comment: Speci men Type: BLOOD SPECIMENOrdering Facility: [facility] Address: [address] [place] [address] Performed By: #### 2 4323-8, 48849-7, 3024-02, 3015-3 ####[facility] LABIA [id number] [place] [id number] [place] Sodium [Moles/Vol] 136 mmol/L Normal 136-144 [facility] Comment on above: Order Comment: Speci men Type: BLOOD SPECIMENOrdering Facility: [facility] Address: [address] [place] [address] Performed By: #### 2 4323-8, 39614-5, 7, 6-3 ####[facility] LABIA [id number] [address] [address] [place] Urea nitrogen [Mass/Vol] 13 mg/dL Normal 7-21 [facility] Comment on above: Order Comment: Speci men Type: BLOOD SPECIMENOrdering Facility: [facility] Address: [address] [place] [address] Performed By: #### 2 4323-8, 70728-2, 3023-7, 6-3 ####[facility] LABCLIA [id number] [address] [place] [address] [place] LPa SerPl-mCncon 04-07-2025 Lipoprotein a [Mass/Vol] mg/dL Normal <30 [facility] Comment on above: Order Comment: Speci men Type: BLOOD SPECIMENOrdering Facility: [facility] Address: [address] [place] [address] Performed By: #### 1 0835-7 ####[facility] LABCLIA [id number] [address] [address] [place] Lipid 1996 panelon 5 Cholesterol [Mass/Vol] 241 mg/dL High <200 [facility] Comment on above: Order Comment: Speci men Type: BLOOD SPECIMENOrdering Facility: [facility] Address: [address] [place] [address] Result Comment: <200 mg/dL, Desirable 200-239 mg/dL, Borderline high>239 mg/dL, High Performed By: #### 2 4323-8, 80163-3, 3024-7, 3016-3 ####[facility] LABCLIA [id number] [place] [id number] [place] Cholesterol in HDL [Mass/Vol] 66 mg/dL Normal >39 [facility] Comment on above: Order Comment: Speci men Type: BLOOD SPECIMENOrdering Facility: [facility] Address: [address] [place] [address] Result Comment: 40-5 9 mg/dL, Acceptable>59 mg/dL, High: Negative risk factor for coronary heart disease<40 mg/dL, Low: Positive risk factor for coronary heart disease Performed By: #### 2 4323-8, 35569-8, 3024-7, 3016-3 ####[facility] LABCLIA [id number] [address] [address] [place] Cholesterol in LDL [Mass/Vol] 151 mg/dL High <100 [facility] Comment on above: Order Comment: Speci men Type: BLOOD SPECIMENOrdering Facility: [facility] Address: [address] [place] [address] Result Comment: <100 mg/dL, Optimal 100-129 mg/dL, Near optimal/above optimal 130-159 mg/dL, Borderline high 160-189 mg/dL, High>189 mg/dL, Very highSecondary prevention optimal LDL Cholesterol levels are recommended to be < 70 mg/dL Performed By: #### 2 4323-8, 84441-6, 3024-7, 3016-3 ####[facility] LABCLIA [id number] [facility] [id number], [place] [address] [place] Cholesterol in LDL/Cholesterol in HDL [Mass ratio] 2.29 {ratio} Normal <2.54 [facility] Comment on above: Order Comment: Speci men Type: BLOOD SPECIMENOrdering Facility: [facility] Address: [address] [place] [address] Result Comment: Mckinley mcdonald:1. National Cholesterol Education Program ATP III Guideline At-A-Glance Quick Desk Reference: National Heart, Lung, and Blood [place]. National Institutes of Health. 2001: NIH Publication No. 01-3305.2. An International Atherosclerosis Society position paper: global recommendations for the management of dyslipidemia: executive summary, Atherosclerosis. 2014: 232(2):410-413. Performed By: #### 2 4323-8, 40237-2, 3024-7, 3016-3 ####[facility] LABCLIA [id number] [facility] [address] [place] [address] [place] Cholesterol in VLDL [Mass/Vol] 24 mg/dL Normal <30 [facility] Comment on above: Order Comment: Speci men Type: BLOOD SPECIMENOrdering Facility: [facility] Address: [address] [place] [address] Performed By: #### 2 4323-8, 48894-6, 3024-7, 3016-3 ####[facility] LABCLIA [id number] [facility] [id number], [place] [address] [place] Cholesterol non HDL [Mass/Vol] 175 mg/dL High <130 [facility] Comment on above: Order Comment: Speci men Type: BLOOD SPECIMENOrdering Facility: [facility] Address: [address] [place] [address] Result Comment: <130 mg/dL, Optimal 130-159 mg/dL, Near optimal/above optimal 160-189 mg/dL, Borderline high 190-219 mg/dL, High>219 mg/dL, Very highSecondary prevention optimal non HDL Cholesterol levels are recommended to be <100 mg/dL Performed By: #### 2 4323-8, 52695-7, 3024-7, 3016-3 ####[facility] LABCLIA [id number] [place] [id number] [place] Cholesterol.total/Cho lesterol in HDL [Mass ratio] 3.65 {ratio} Normal <5.10 [facility] Comment on above: Order Comment: Speci men Type: BLOOD SPECIMENOrdering Facility: [facility] Address: [address] [place] [address] Performed By: #### 2 4323-8, 03051-8, 3023-7, 3015-3 ####[facility] LABCLIA [id number] [place] [address] [place] FASTING TIME 12 hrs Normal [facility] Comment on above: Order Comment: Speci men Type: BLOOD SPECIMENOrdering Facility: [facility] Address: [address] [place] [address] Performed By: #### 2 4323-8, 66316-9, 7, 3015-3 ####[facility] LABCLIA [id number] [place] [id number] [place] Triglyceride [Mass/Vol] 121 mg/dL Normal <150 [facility] Comment on above: Order Comment: Speci men Type: BLOOD SPECIMENOrdering Facility: [facility] Address: [address] [place] [address] Result Comment: <150 mg/dL, Normal 150-199 mg/dL, Borderline high 200-499 mg/dL, High>499 mg/dL, Very high Performed By: #### 2 4323-8, 42280-8, 3023-7, 6-3 ####[facility] [id number] [place] [address] [place] QUANT TOX PANELon 11-26-2024 6-Rntpkikqzf-5,5-Dime thyl-3,3-Diphenylpyrr olidine (EDDP) Confirm (U) [Mass/Vol] <25 Normal <25 [facility] Comment on above: Order Comment: Speci men Type: URINE SPECIMENOrdering Facility: [facility] Address: [address] [place] [address] Result Comment: 2-Fyfwyztvri-3,2-uagswpaw-8,3-diphenylpyrrolidine (EDDP) is a metabolite of methadone. Performed By: #### U QNTX ####[facility] [id number] [address] [place] 6-Monoacetylmorphine (6-MARK) (U) [Mass/Vol] <5 Normal <5 [facility] Comment on above: Order Comment: Speci men Type: URINE SPECIMENOrdering Facility: [facility] Address: [address] [place] [address] Result Comment: 6-Mo noacetylmorphine is a metabolite of heroin. Performed By: #### U QNTX ####[facility] [id number] [place] [address] [place] Amphetamine Confirm (U) [Mass/Vol] <25 Normal <25 [facility] Comment on above: Order Comment: Speci men Type: URINE SPECIMENOrdering Facility: [facility] Address: [address] [place] [address] Result Comment: Meth ylphenidate does not contain or metabolize to amphetamine. Performed By: #### U QNTX ####[facility] [id number] [place] [address] [place] Benzoylecgonine Confirm (U) [Mass/Vol] <25 Normal <25 [facility] Comment on above: Order Comment: Speci men Type: URINE SPECIMENOrdering Facility: [facility] Address: [address] [place] [address] Result Comment: Willian oylecgonine is a metabolite of cocaine. Performed By: #### U QNTX ####[facility] LABIA [id number] [place] [address] [place] Buprenorphine (U) [Mass/Vol] <5 Normal <5 [facility] Comment on above: Order Comment: Speci men Type: URINE SPECIMENOrdering Facility: [facility] Address: [address] [place] [address] Result Comment: Jessica ents using transdermal formulations of buprenorphine may yield undetectable buprenorphine and norbuprenorphine urine concentrations. Performed By: #### U QNTX ####[facility] [id number] [place] [address] [place] Carboxy tetrahydrocannabinol (U) [Mass/Vol] <10 Normal <10 [facility] Comment on above: Order Comment: Speci men Type: URINE SPECIMENOrdering Facility: [facility] Address: [address] [place] [address] Result Comment: 11-N vg-0-ynqltff-tetrahydrocannabinol (eyuxw-9-dfccbov-THC) is a metabolite of lkguw-0-qslmzborjnlakdjvngur (THC). This test does not differentiate between delta-8 or delta-9 carboxy-THC. Performed By: #### U QNTX ####[facility] [id number] [place] [address] [place] Codeine Confirm (U) [Mass/Vol] <25 Normal <25 [facility] Comment on above: Order Comment: Speci men Type: URINE SPECIMENOrdering Facility: [facility] Address: [address] [place] [address] Performed By: #### U QNTX ####[facility] LABIA [id number] [place] [address] [place] fentaNYL Confirm (U) [Mass/Vol] <1 Normal <1 [facility] Comment on above: Order Comment: Speci men Type: URINE SPECIMENOrdering Facility: [facility] Address: [address] [place] [address] Performed By: #### U QNTX ####[facility] LABIA [id number] [place] [address] [place] HYDROcodone Confirm (U) [Mass/Vol] 73 ng/mL High <25 [facility] Comment on above: Order Comment: Speci men Type: URINE SPECIMENOrdering Facility: [facility] Address: [address] [place] [address] Result Comment: Pres ence of hydrocodone is consistent with use of a hydrocodone-containing drug or a drug that metabolizes to hydrocodone. Hydrocodone is a minor metabolite of codeine. Hydrocodone is metabolized to hydromorphone and norhydrocodone. Performed By: #### U QNTX ####[facility] [id number] [place] [address] [place] HYDROmorphone Confirm (U) [Mass/Vol] 62 ng/mL High <25 [facility] Comment on above: Order Comment: Speci men Type: URINE SPECIMENOrdering Facility: [facility] Address: [address] [place] [address] Result Comment: Pres ence of hydromorphone is consistent with use of a hydromorphone-containing drug or a drug that metabolizes to hydromorphone. Hydromorphone is a metabolite of hydrocodone and morphine. Performed By: #### U QNTX ####[facility] LABIA [id number] [place] [address] [place] MDA, UR <25 Normal <25 [facility] Comment on above: Order Comment: Speci men Type: URINE SPECIMENOrdering Facility: [facility] Address: [address] [place] [address] Result Comment: 3,4 Methylenedioxyamphetamine is also known as MDA. Performed By: #### U QNTX ####[facility] [id number] [place] [address] [place] MDEA, UR <25 Normal <25 [facility] Comment on above: Order Comment: Speci men Type: URINE SPECIMENOrdering Facility: [facility] Address: [address] [place] [address] Result Comment: 3,4 Vevdrvvkroznwr-I-ccodivwndxhikvkt is also known as MDEA. Performed By: #### U QNTX ####[facility] [id number] [place] [address] [place] MDMA, UR <25 Normal <25 [facility] Comment on above: Order Comment: Speci men Type: URINE SPECIMENOrdering Facility: [facility] Address: [address] [place] [address] Result Comment: 3,4- Methylenedioxymethamphetamine is also known as MDMA. Performed By: #### U QNTX ####[facility] [id number] [place] [address] [place] Methadone Confirm (U) [Mass/Vol] <25 Normal <25 [facility] Comment on above: Order Comment: Speci men Type: URINE SPECIMENOrdering Facility: [facility] Address: [address] [place] [address] Performed By: #### U QNTX ####[facility] LABIA [id number] [place] [address] [place] Methamphetamine Confirm (U) [Mass/Vol] <25 Normal <25 [facility] Comment on above: Order Comment: Speci men Type: URINE SPECIMENOrdering Facility: [facility] Address: [address] [place] [address] Performed By: #### U QNTX ####[facility] [id number] [place] [address] [place] Morphine Confirm (U) [Mass/Vol] <25 Normal <25 [facility] Comment on above: Order Comment: Speci men Type: URINE SPECIMENOrdering Facility: [facility] Address: [address] [place] [address] Performed By: #### U QNTX ####[facility] LABIA [id number] [place] [address] [place] Norbuprenorphine (U) [Mass/Vol] <10 Normal <10 [facility] Comment on above: Order Comment: Speci men Type: URINE SPECIMENOrdering Facility: [facility] Address: [address] [place] [address] Result Comment: Norb uprenorphine is a metabolite of buprenorphine. Patients using transdermal formulations of buprenorphine may yield undetectable buprenorphine and norbuprenorphine urine concentrations. Performed By: #### U QNTX ####[facility] [id number] [place] [address] [place] Norfentanyl Confirm (U) [Mass/Vol] <1 Normal <1 [facility] Comment on above: Order Comment: Speci men Type: URINE SPECIMENOrdering Facility: [facility] Address: [address] [place] [address] Result Comment: Norf entanyl is a metabolite of fentanyl. Performed By: #### U QNTX ####[facility] [id number] [place] [address] [place] NORHYDROCODONE, UR 289 ng/mL High <25 [facility] Comment on above: Order Comment: Speci men Type: URINE SPECIMENOrdering Facility: [facility] Address: [address] [place] [address] Result Comment: Norh ydrocodone is a metabolite of hydrocodone. Presence of norhydrocodone is consistent with use of a hydrocodone-containing drug or a drug that metabolizes to hydrocodone. Performed By: #### U QNTX ####[facility] LABIA [id number] [place] [address] [place] LUANA NOROXYCODONE, UR <25 Normal <25 [facility] Comment on above: Order Comment: Speci men Type: URINE SPECIMENOrdering Facility: [facility] Address: [address] [place] [address] Result Comment: Noro xycodone is a metabolite of oxycodone. Performed By: #### U QNTX ####[facility] [id number] [place] [address] [place] NOROXYMORPHONE, UR <25 Normal <25 [facility] Comment on above: Order Comment: Speci men Type: URINE SPECIMENOrdering Facility: [facility] Address: [address] [place] [address] Result Comment: Noro xymorphone is a metabolite of oxymorphone and oxycodone and a minor metabolite of naltrexone and naloxone. Performed By: #### U QNTX ####[facility] [id number] [place] [address] [place] Nortramadol (U) [Mass/Vol] <25 Normal <25 [facility] Comment on above: Order Comment: Speci men Type: URINE SPECIMENOrdering Facility: [facility] Address: [address] [place] [address] Result Comment: O-de smethyltramadol is a metabolite of tramadol. Performed By: #### U QNTX ####[facility] [id number] [place] [address] [place] NOTE, UR TOXICOLOGY PANEL Normal [facility] Comment on above: Order Comment: Speci men Type: URINE SPECIMENOrdering Facility: [facility] Address: [address] [place] [address] Result Comment: For medical purposes only. Not valid for legal or forensic purposes.This test was developed, and its performance characteristics determined by the [facility] Department of Pathology and Laboratory Medicine. It has not been cleared or approved by the FDA. The [facility] Department of Pathology and Laboratory Medicine is regulated under CLIA as qualified to perform high-complexity testing. This test is used for clinical purposes. It should not be regarded as investigational or for research. Performed By: #### U QNTX ####[facility] LABIA [id number] [place] [address] [place] oxyCODONE Confirm (U) [Mass/Vol] <25 Normal <25 [facility] Comment on above: Order Comment: Speci men Type: URINE SPECIMENOrdering Facility: [facility] Address: [address] [place] [address] Performed By: #### U QNTX ####[facility] [id number] [place] [address] [place] oxyMORphone Confirm (U) [Mass/Vol] <25 Normal <25 [facility] Comment on above: Order Comment: Speci men Type: URINE SPECIMENOrdering Facility: [facility] Address: [address] [place] [address] Performed By: #### U QNTX ####[facility] [id number] [place] [address] [place] Phencyclidine Confirm (U) [Mass/Vol] <10 Normal <10 [facility] Comment on above: Order Comment: Speci men Type: URINE SPECIMENOrdering Facility: [facility] Address: [address] [place] [address] Result Comment: Phen cyclidine is also known as PCP. Performed By: #### U QNTX ####[facility]IA [id number] [place] [address] [place] PHENTERMINE, UR <25 Normal <25 [facility] Comment on above: Order Comment: Speci men Type: URINE SPECIMENOrdering Facility: [facility] Address: [address] [place] [address] Performed By: #### U QNTX ####[facility] LABCLIA [id number] [address] [place] [address] [place] traMADol Confirm (U) [Mass/Vol] <25 Normal <25 [facility] Comment on above: Order Comment: Speci men Type: URINE SPECIMENOrdering Facility: [facility] Address: [address] [place] [address] Performed By: #### U QNTX ####[facility] LABCLIA [id number] [place] [id number] [place] SPECIMEN VALIDITY, URINEon 0 11-26-2024 CREATININE,URINE 100.5 mg/dL Normal 20.0-300.0 [facility] Comment on above: Order Comment: Speci men Type: URINE SPECIMENOrdering Facility: [facility] Address: [address] [place] [address] Performed By: #### L [id number] ####[facility] LABCLIA [id number] [place] [id number] [place] NITRITES,URINE <50 Normal <500 [facility] Comment on above: Order Comment: Speci men Type: URINE SPECIMENOrdering Facility: [facility] Address: [address] [place] [address] Performed By: #### L [id number] ####[facility] LABIA [id number] [place] [id number] [place] OXIDANTS,URINE <38 Normal <200 [facility] Comment on above: Order Comment: Speci men Type: URINE SPECIMENOrdering Facility: [facility] Address: [address] [place] [address] Performed By: #### L [id number] ####[facility] LABCLIA [id number] [address] [address] [place] pH (U) 5.7 [pH] Normal 4.5-8.0 [facility] Comment on above: Order Comment: Speci men Type: URINE SPECIMENOrdering Facility: [facility] Address: [address] [place] [address] Performed By: #### L [id number] ####[facility] LABCLIA [id number] [place] [address] [place] SPEC GRAVITY,UR 1.012 Normal 1.003-1.03 5 [facility] Comment on above: Order Comment: Speci men Type: URINE SPECIMENOrdering Facility: [facility] Address: [address] [place] [address] Performed By: #### L [id number] ####[facility] LABIA [id number] [address] OF [facility] SPECIMEN VALIDITY QUALITY Specimen quality results within acceptable limits Normal [facility] Comment on above: Order Comment: Speci men Type: URINE SPECIMENOrdering Facility: [facility] Address: [address] [place] [address] Performed By: #### L [id number] ####[facility] LABIA [id number] [place] [address] [place] T4 Free SerPl-mCncon 025 Free T4 [Mass/Vol] 1.7 ng/dL Normal 0.9-1.7 [facility] Comment on above: Order Comment: Speci men Type: BLOOD SPECIMENOrdering Facility: [facility] Address: [address] [place] [address] Performed By: #### 2 4323-8, 92899-5, 3024-7, 3016-3 ####[facility] LABIA [id number] [place] [address] [place] TOXICOLOGY SCREEN, ROUTINE U RINEon 11-26-2024 Amphetamines Confirm (U) [Mass/Vol] Negative Normal Negative [facility] Comment on above: Order Comment: Speci men Type: URINE SPECIMENOrdering Facility: [facility] Address: [address] [place] [address] Performed By: #### U TOX2 ####[facility] LABCLIA [id number] [place] [address] [place] BARBITURATES, URINE Negative Normal Negative [facility] Comment on above: Order Comment: Speci men Type: URINE SPECIMENOrdering Facility: [facility] Address: [address] [place] [address] Result Comment: Cuto ff threshold at 200 ng/mL. Performed By: #### U TOX2 ####[facility] LABCLIA [id number] [place] [address] [place] BENZODIAZEPINES, UR Negative Normal Negative [facility] Comment on above: Order Comment: Speci men Type: URINE SPECIMENOrdering Facility: [facility] Address: [address] [place] [address] Result Comment: Cuto ff threshold at 200 ng/mL. Performed By: #### U TOX2 ####[facility] LABCLIA [id number] [place] [address] [place] Cannabinoids Screen Ql (U) Negative Normal Negative [facility] Comment on above: Order Comment: Speci men Type: URINE SPECIMENOrdering Facility: [facility] Address: [address] [place] [address] Result Comment: Cuto ff threshold at 50 ng/mL. Performed By: #### U TOX2 ####[facility] LABCLIA [id number] [place] [address] [place] Cocaine Ql (U) Negative Normal Negative [facility] Comment on above: Order Comment: Speci men Type: URINE SPECIMENOrdering Facility: [facility] Address: [address] [place] [address] Result Comment: Cuto ff threshold at 300 ng/mL. Performed By: #### U TOX2 ####[facility] LABCLIA [id number] [place] [id number] [place] Ethanol (U) [Mass/Vol] <11 Normal <11 [facility] Comment on above: Order Comment: Speci men Type: URINE SPECIMENOrdering Facility: [facility] Address: [address] [place] [address] Performed By: #### U TOX2 ####[facility] LABCLIA [id number] [place] [address] [place] Opiates Screen Ql (U) Negative Normal Negative [facility] Comment on above: Order Comment: Speci men Type: URINE SPECIMENOrdering Facility: [facility] Address: [address] [place] [address] Result Comment: Cuto ff threshold at 300 ng/mL. Performed By: #### U TOX2 ####[facility] LABIA [id number] [place] [address] [place] oxyCODONE cutoff Screen (U) [Mass/Vol] Negative Normal Negative [facility] Comment on above: Order Comment: Speci men Type: URINE SPECIMENOrdering Facility: [facility] Address: [address] [place] [address] Performed By: #### U TOX2 ####[facility] LABIA [id number] [address] [place] Phencyclidine Ql (U) Negative Normal Negative [facility] Comment on above: Order Comment: Speci men Type: URINE SPECIMENOrdering Facility: [facility] Address: [address] [place] [address] Result Comment: Cuto ff threshold at 25 ng/mL. Performed By: #### U TOX2 ####[facility] LABIA [id number] [place] [address] [place] TSH SerPl-aCncon 11-26-2024 TSH Qn 0.707 m[IU]/L Normal 0.270-4.20 0 [facility] Comment on above: Order Comment: Speci men Type: BLOOD SPECIMENOrdering Facility: [facility] Address: [address] [place] [address] Performed By: #### 2 4323-8, 77321-4, 3024-7, 3016-3 ####[facility] LABIA [id number] [place] [address] [place] CNOVon 11-20-2024 CNOV Normal [facility] CNOVon 11-19-2024 CNOV Normal [facility] CNTHERAPYon 10-30-2024 CNTHERAPY Normal [facility] CNPTOUTREACHon 10-10-2024 CNPTOUTREACH Normal [facility] [id number] 10-09-2024 [id number] Normal [facility] CNTHERAPYon 10-09-2024 CNTHERAPY Normal [facility] CNNURSEon 09-13-2024 CNNURSE Normal [facility] CNTHERAPYon 09-11-2024 CNTHERAPY Normal [facility] CNOVon 08-21-2024 CNOV Normal [facility] CNPNon 08-13-2024 CNPN Normal [facility] CNTHERAPYon 08-13-2024 CNTHERAPY Normal [facility] XR LUMBAR 3V AP/LAT/L5-S1on 08-13-2024 XR LUMBAR 3V AP/LAT/L5-S1 Normal [facility] CNPNon 08-09-2024 CNPN Normal [facility] 25(OH)D3 SerPl-mCncon 2023 25-hydroxyvitamin D3 [Mass/Vol] 49.8 ng/mL Normal 31.0-80.0 [facility] Comment on above: Order Comment: Speci men Type: BLOOD SPECIMENOrdering Facility: [facility] Address: [address] [place] [address] Result Comment: Clas sification of 25 [place] Vitamin D status:Deficiency/Insufficiency: < or = 30 ng/ml.Sufficiency/Optimal Levels: 31-80 ng/mLToxicity: > 100 ng/mL.Test performed by chemiluminescent immunoassay. Performed By: #### 1 989-3 ####[facility] LABCLIA [id number] [place] [address] [place] CNOVon 08-08-2024 CNOV Normal [facility] CNTHERAPYon 07-23-2024 CNTHERAPY Normal [facility] CNOVon 07-17-2024 CNOV Normal [facility] [id number] 06-26-2024 [id number] Normal [facility] CNOVon 06-26-2024 CNOV Normal [facility] CNTHERAPYon 06-25-2024 CNTHERAPY Normal [facility] CNTHERAPYon 06-06-2024 CNTHERAPY Normal [facility] DBT Breast - right diagnosti c for implanton 06-05-2024 Radiology Study observation (narrative) [facility] IMPRESSION: Stable calcifications in the right breast are probably benign. Follow-up in 6 months is recommended. BI-RADS Category 3: Probably Benign RISK: Based on the Tyrer-Cuzick (TC) risk assessment model, this patient has a 1.0% lifetime risk of developing breast cancer, meaning they are at average risk for developing breast cancer. However, this is only an estimate based on available history provided on the patient's questionnaire. We encourage all patients to talk with their providers about these results, further recommendations for managing breast health, and appropriate supplemental screening options if the patient has dense breast tissue. Interpreting Radiologist: Fidel Govea M.D. Electronically signed on: 06/05/2024 Clam Treader: TESFAYE Transcrirenata Date/Time: Jun 05 2024 9:24A Dictated by: FIDEL GOVEA MD This examination was interpreted and the report reviewed and electronically signed by: FIDEL GOVEA MD on Jun 05 2024 9:50AM [facility] DIVISION OF RADIOLOGY * * *Final Report* * * DATE OF EXAM: Jun 05 2024 9:37AM [facility] 0629 - MARK AMADOU ZIMMERMAN RT / PROCEDURE REASON: Inconclusive mammogram * * * * Physician Interpretation * * * * RESULT: [facility] [address] [place] [address] HISTORY: Patient is 78 years old and is seen for diagnostic evaluation of short term follow-up from a previous mammogram in the right breast. The patient has a history of melanoma. COMPARISON STUDIES: The present examination has been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 transfusion No date: HTN (hypertension) No date: Hypothyroid No date: Intrinsic asthma No date: Mixed hyperlipidemia Comment: Hyperlipidemia No date: Osteoarthrosis, unspecified whether generalized or localized, other specified sites No date: PMH - PAST MEDICAL HISTORY OF Comment: CVA with weakness left side 2001: PM - PAST MEDICAL HISTORY OF Comment: left cervical radiculopathy 2004: PMH - PAST MEDICAL HISTORY OF Comment: right rib fracture 2006: PMH - PAST MEDICAL HISTORY OF Comment: right shoulder impingement syndrome No date: Spinal stenosis 2006: Stroke (HCC) No date: Unspecified hypothyroidism PAST SURGICAL HISTORY 1960: APPENDECTOMY No date: APPENDECTOMY HX 2017: BACK SURGERY HX Comment: L3-5 Decompression and Fusion No date: CATARACT EXTRACTION HX; Bilateral 09/15/2016: COLONOSCOPY; N/A Comment: MAC 09/17/2016: EGD W/O BRSH SPEC VARICIES INJ 11/15/2022: EGD W/O BRSH SPEC VARICIES INJ No date: EPIDURAL SITE SPECIFY Comment: lumbar spine No date: EYE SURGERY HX 1976: PAST SURGICAL HISTORY OF Comment: thyroidectomy for toxic goiter No date: SKIN BIOPSY HX No date: TONSILLECTOMY HX No date: TONSILLECTOMY PRIMARY/SECONDARY Comment: Tonsillectomy Social History Tobacco Use Smoking status: Former Current packs/day: 0.50 Average packs/day: 0.5 packs/day for 8.0 years (4.0 ttl pk-yrs) Types: Cigarettes Smokeless tobacco: Never Tobacco comments: quit in 1969 Vaping Use Vaping status: Never Used Substance Use Topics Alcohol use: Yes Comment: 1-2 times per week Drug use: No FAMILY HISTORY Problem Relation Age of Onset Cerebral Embolism Mother Osteoporosis Mother other (spinal stenosis) Mother other (depression) Mother other (cva) Mother other (depression) Father other (tramatic brain syndrome) Father s/p MVA other (aplastic thyroid tumor) Sister Depression Brother Stroke Maternal Grandfather Colon Cancer No Family History ALLERGIES Allergen Reactions Cymbalta [Duloxetin* Other: See Comments Tremor Fosamax [Alendronat* Intolerance Reflux Septra [Sulfamethox* Hives swelling and SOB Sulfamethoxazole Hives Tramadol Other: See Comments Tremor Trimethoprim Hives Bupropion Other: See Comments Current Facility-Administered Medications Medication Dose Route Frequency NaCl 0.9% iv infusion 30 mL/hr INTRAVENOUS CONTINUOUS Physical Exam: Performed in conjunction with observation. The patient is alert and oriented x3. The patient is in no acute distress. Neck: Supple. The range of motion is intact. Lungs: clear CVR: RRR. Extremities: no reported edema or erythema. Examination indicates no changes Impression: Lumbar spondylosis Plan: The informed consent has been obtained. The plan is to proceed with the procedure as planned. SIGNATURE: Brando Gibson MD DATE: April 10, 2024 TIME: 9:00 AM [facility] NURSING PROGon 04-10-2024 NURSING PROG HNO ID: [id number] Author: JOSEFINA CASTELLANO, RN Service: Nursing Author Type: Registered Nurse Type: Nursing Progress Note Filed: 04/10/2024 09:31 Note Text: Pt has two days left of 10 day course of Augmentin due to recent Covid infection. Dr. Gibson notified and procedure cancelled. Normal [facility] XR Chest PA and Lateralon IMPRESSION: No acute radiographic abnormality. Clam Treader: [facility] Transcribe Date/Time: Apr 02 2024 3:46P Dictated by : GARRETT JAMESON MD This examination was interpreted and the report reviewed and electronically signed by: GARRETT JAMESON MD on Apr 02 2024 3:48PM [facility] DIVISION OF RADIOLOGY * * *Final Report* * * DATE OF EXAM: Apr 02 2024 3:41PM [id number] - XR CHEST 2V FRONTAL/LAT / PROCEDURE REASON: multiple diagnoses * * * * Physician Interpretation * * * * EXAMINATION: CHEST RADIOGRAPH (2 VIEW FRONTAL & LATERAL) CLINICAL HISTORY: Acute cough COVID-19 MQ: XC2_6 EXAM DATE/TIME: 04/02/2024 3:41 PM COMPARISON: Chest x-ray on 09/03/2023 RESULT: Lines, tubes, and devices: None. Lungs and pleura: No consolidation. No lung mass. No pleural effusion. No pneumothorax. Cardiomediastinal silhouette: Stable cardiomediastinal silhouette. Bones and soft tissues: There are degenerative changes in the spine. DIVISION OF RADIOLOGY Provider, [facility] - 04/02/2024 * * *Final Report* * * DATE OF EXAM: Apr 02 2024 3:41PM [id number] - XR CHEST 2V FRONTAL/LAT / PROCEDURE REASON: multiple diagnoses * * * * Physician Interpretation * * * * EXAMINATION: CHEST RADIOGRAPH (2 VIEW FRONTAL & LATERAL) CLINICAL HISTORY: Acute cough COVID-19 MQ: XC2_6 EXAM DATE/TIME: 04/02/2024 3:41 PM COMPARISON: Chest x-ray on 09/03/2023 RESULT: Lines, tubes, and devices: None. Lungs and pleura: No consolidation. No lung mass. No pleural effusion. No pneumothorax. Cardiomediastinal silhouette: Stable cardiomediastinal silhouette. Bones and soft tissues: There are degenerative changes in the spine. IMPRESSION IMPRESSION: No acute radiographic abnormality. Clam Treader: [facility] Transcribe Date/Time: Apr 02 2024 3:46P Dictated by : GARRETT JAMESON MD This examination was interpreted and the report reviewed and electronically signed by: GARRETT JAMESON MD on Apr 02 2024 3:48PM EST [facility] Radiology Study observation (narrative) [facility] XR Chest PA and LateralOrder ed By: [facility] Provider on 04-02-2024 [facility] XR Lumbar spine AP and Later al and obliqueon 03-15-2024 IMPRESSION: MULTILEV EL FUSION, LAMINECTOMY L3 AND L4. MULTILEVEL DEGENERATIVE DISC DISEASE AND FACET DISEASE. NO CHANGE COMPARED TO THE PREVIOUS EXAM. Clam Treader: [facility] Transcribe Date/Time: Mar 15 2024 5:42P Dictated by : LUKASZ MARINO MD This examination was interpreted and the report reviewed and electronically signed by: LUKASZ MARINO MD on Mar 15 2024 5:46PM EST DIVISION OF RADIOLOGY * * *Final Report* * * DATE OF EXAM: Mar 15 2024 11:46AM [id number] - XR LUMBAR PARS 4V AP/LAT/OBL X2 / PROCEDURE REASON: multiple diagnoses * * * * Physician Interpretation * * * * EXAM: LUMBAR SPINE, 4 VIEWS CLINICAL: 78-year-old female with lumbar facet arthropathy and lumbar spondylosis status post fusion TECHNIQUE: AP, lateral, obliques COMPARISON: 01/06/2022 RESULTS: Counting reference: Anatomic Variant: None. L4-5 is considered the level of the iliac crest and assume there are 5 lumbar-type vertebrae. Levoscoliosis centered at the thoracolumbar junction. Status post posterior fusion with pedicle screw and les at L3-L5 interbody fusion L3/L4 and L4/L5. Lateral bone graft material is present. Moderate to marked narrowing of T12/L1 through L2/L3. Facet degenerative changes at L5/S1, T12/L1 through L2/L3. Laminectomy at L3 and L4. Multilevel degenerative disc disease in the thoracic spine. DIVISION OF RADIOLOGY Provider, [facility] - 03/15/2024 * * *Final Report* * * DATE OF EXAM: Mar 15 2024 11:46AM [id number] - XR LUMBAR PARS 4V AP/LAT/OBL X2 / PROCEDURE REASON: multiple diagnoses * * * * Physician Interpretation * * * * EXAM: LUMBAR SPINE, 4 VIEWS CLINICAL: 78-year-old female with lumbar facet arthropathy and lumbar spondylosis status post fusion TECHNIQUE: AP, lateral, obliques COMPARISON: 01/06/2022 RESULTS: Counting reference: Anatomic Variant: None. L4-5 is considered the level of the iliac crest and assume there are 5 lumbar-type vertebrae. Levoscoliosis centered at the thoracolumbar junction. Status post posterior fusion with pedicle screw and les at L3-L5 interbody fusion L3/L4 and L4/L5. Lateral bone graft material is present. Moderate to marked narrowing of T12/L1 through L2/L3. Facet degenerative changes at L5/S1, T12/L1 through L2/L3. Laminectomy at L3 and L4. Multilevel degenerative disc disease in the thoracic spine. IMPRESSION IMPRESSION: MULTILEVEL FUSION, LAMINECTOMY L3 AND L4. MULTILEVEL DEGENERATIVE DISC DISEASE AND FACET DISEASE. NO CHANGE COMPARED TO THE PREVIOUS EXAM. Clam Treader: [facility] Transcribe Date/Time: Mar 15 2024 5:42P Dictated by : LUKASZ MARINO MD This examination was interpreted and the report reviewed and electronically signed by: LUKASZ MARINO MD on Mar 15 2024 5:46PM EST [facility] Radiology Study observation (narrative) [facility] XR Lumbar spine AP and Later al and obliqueOrdered By: [facility] Provider on 03-15-2024 [facility] DBT Breast - bilateral diagn ostic for implanton 12-28-2023 IMPRESSION: PROBABLY BENIGN - SHORT TERM INTERVAL FOLLOW-UP RECOMMENDED The grouped fine calcifications in the right breast are probably benign. A follow-up mammogram in 6 months is recommended to demonstrate stability. Fidel coello/katie:12/28/2023 15:33:53 Chief Catalyst Operator(s): RT Bonny(R)(M), [facility] Mammogram BI-RADS: 3 Probably benign finding - short term interval follow-up recommended Multiple national specialty organizations have released breast cancer screening guidelines for women at average risk for developing breast cancer - guidelines that are based on both evidence and opinion, yet differ on when to start and how often to screen for breast cancer. With representation from Breast Imaging, Internal Medicine, Women's Health, Family Medicine, and Medical/Surgical Oncology, the [facility] has carefully reviewed the data and reached the following consensus: 1) All women should engage in shared decision-making with their providers to decide when to start and how often to screen; 2) All women should have the opportunity to start screening mammography at age 40; 3) For women ages 45-55, we recommend annual screening mammograms; 4) For women ages 55 and over, we support both the transition from an annual to a biennial interval if this aligns more with patient's values and preferences, or continuation with annual screening; 5) All women should discuss with their providers when to stop screening mammograms. Clam Treader: Katie Transcribe Date/Time: Dec 28 2023 2:59P Dictated by: FIDEL GOVEA MD This examination was interpreted and the report reviewed and electronically signed by: FIDEL GOVEA MD on Dec 28 2023 3:33PM [facility] DIVISION OF RADIOLOGY * * *Final Report* * * DATE OF EXAM: Dec 28 2023 2:59PM [facility] 0627 - MARK AMADOU Tapia CHIQUITA MARCELO / PROCEDURE REASON: Inconclusive mammogram * * * * Physician Interpretation * * * * RESULT: #[id number] - MAKR AMADOU Tapia CHIQUITA MARCELO BILATERAL DIGITAL DIAGNOSTIC MAMMOGRAM TOMOSYNTHESIS WITH CAD: 12/28/2023 HISTORY: Inconclusive Mammogram/ / Bilateral Diagnostic Mammogram;Call Back/Abnormal Mammogram /priors available for comparison. RESULT: TECHNIQUE: The study was acquired using full field digital technology and interpreted from soft copy. Digital Breast Tomosynthesis (DBT) images were obtained and used to assist in the interpretation of this examination. Current study was also evaluated with a Computer Aided Detection (CAD). Comparison is made to exam dated: 12/05/2023 mammogram - [facility]. There are scattered areas of fibroglandular density. Prior asymmetry is no longer seen in the left breast. There are grouped fine calcifications in the right breast superior lateral quadrant posterior depth. No other significant masses, calcifications, or other findings are seen in either breast. DIVISION OF RADIOLOGY [facility]28[facility]23 * * *Final Report* * * DATE OF EXAM: Dec 28 2023 2:59PM [facility] 0627 - MARK AMADOU Tapia CHIQUITA MARCELO / PROCEDURE REASON: Inconclusive mammogram * * * * Physician Interpretation * * * * RESULT: #[id number] - MARK AMADOU Tapia CHIQUITA MARCELO BILATERAL DIGITAL DIAGNOSTIC MAMMOGRAM TOMOSYNTHESIS WITH CAD: 12/28/2023 HISTORY: Inconclusive Mammogram/ / Bilateral Diagnostic Mammogram;Call Back/Abnormal Mammogram /priors available for comparison. RESULT: TECHNIQUE: The study was acquired using full field digital technology and interpreted from soft copy. Digital Breast Tomosynthesis (DBT) images were obtained and used to assist in the interpretation of this examination. Current study was also evaluated with a Computer Aided Detection (CAD). Comparison is made to exam dated: 12/05/2023 mammogram - [facility]. There are scattered areas of fibroglandular density. Prior asymmetry is no longer seen in the left breast. There are grouped fine calcifications in the right breast superior lateral quadrant posterior depth. No other significant masses, calcifications, or other findings are seen in either breast. IMPRESSION IMPRESSION: PROBABLY BENIGN - SHORT TERM INTERVAL FOLLOW-UP RECOMMENDED The grouped fine calcifications in the right breast are probably benign. A follow-up mammogram in 6 months is recommended to demonstrate stability. Fidel coello/katie:12/28/2023 15:33:53 Chief Catalyst Operator(s): RT Bonny(R)(M), [facility] Mammogram BI-RADS: 3 Probably benign finding - short term interval follow-up recommended Multiple national specialty organizations have released breast cancer screening guidelines for women at average risk for developing breast cancer - guidelines that are based on both evidence and opinion, yet differ on when to start and how often to screen for breast cancer. With representation from Breast Imaging, Internal Medicine, Women's Health, Family Medicine, and Medical/Surgical Oncology, the [facility] has carefully reviewed the data and reached the following consensus: 1) All women should engage in shared decision-making with their providers to decide when to start and how often to screen; 2) All women should have the opportunity to start screening mammography at age 40; 3) For women ages 45-55, we recommend annual screening mammograms; 4) For women ages 55 and over, we support both the transition from an annual to a biennial interval if this aligns more with patient's values and preferences, or continuation with annual screening; 5) All women should discuss with their providers when to stop screening mammograms. Clam Treader: Katie Transcribe Date/Time: Dec 28 2023 2:59P Dictated by: FIDEL GOVEA MD This examination was interpreted and the report reviewed and electronically signed by: FIDEL GOVEA MD on Dec 28 2023 3:33PM EST [facility] Radiology Study observation (narrative) [facility] DBT Breast - bilateral diagn ostic for implantOrdered By: [facility] Provider on 12-28-2023 [facility] CNTHERAPYon 11-15-2023 CNTHERAPY OT/PT/Speech Visit (PTCLMS) ----- CHIARA CROFT ([id number]) 1945 [address] [place]* Date Time Provider Department 11/15/23 10:00 AM GEORGE TUCKER [facility] Date Time Provider Department Center 11/15/2023 10:00 AM [id number], KRYSTAL [facility]CS Zuly Dozier Reason for Visit: Physical Therapy [503] PT Discharge [752] Primary Visit Diagnosis:Lumbar radiculopathy [M54.16] Allergies As of Date: 11/15/2023 Noted Allergy Reaction CYMBALTA (DULOXETINE) 10/02/2021 14 - Other: See Comments Comments: Tremor FOSAMAX (ALENDRONATE SODIUM) 09/21/2019 5 - Intolerance Comments: Reflux SEPTRA (SULFAMETHOXAZOLE-TRIMETH O*03/23/2006 4 - Hives Comments: swelling and SOB SULFAMETHOXAZOLE 05/08/2019 4 - Hives TRAMADOL 10/02/2021 14 - Other: See Comments Comments: Tremor TRIMETHOPRIM 05/08/2019 4 - Hives BUPROPION 07/06/2021 14 - Other: See Comments Date Reviewed: 11/04/2023 Reviewed by: Zheng Tse LPN - Fully Assessed Prescriptions as of 11/15/2023 - amitriptyline (ELAVIL) 10 mg tablet Take 1 tablet by mouth daily at bedtime. - methocarbamol (ROBAXIN) 500 mg tablet Take 1 tablet by mouth two times a day as needed. - gabapentin (NEURONTIN) 100 mg capsule take two pills by mouth three times daily. - rosuvastatin (CRESTOR) 5 mg tablet Take 1 tablet by mouth once daily. - guaifenesin/phenylephrine HCl (MUCINEX COLD ORAL) Take by mouth. - fluticasone/vilanterol (BREO ELLIPTA INHALATION) Inhale 1 Puff as instructed once daily. - lansoprazole (PREVACID) 15 mg capsule Take 1 capsule by mouth once daily. - L. rhamnosus GG/inulin ([facility] ORAL) Take 1 tablet by mouth once daily. - losartan (COZAAR) 50 mg tablet TAKE 1 AND 1/2 (ONE AND ONE-HALF) TABLETS BY MOUTH ONCE DAILY - levothyroxine (LEVOXYL) 88 mcg tablet Take 1 tablet by mouth once daily. Take on empty stomach. For Thyroid - clopidogrel (PLAVIX) 75 mg tablet Take 1 tablet by mouth once daily. [facility] ID: [id number] [email or web address] - albuterol HFA (VENTOLIN HFA) 90 mcg/actuation inhaler Inhale 2 Puffs as instructed every 4 hours as needed for wheezing/shortness of breath. - lidocaine (SALONPAS) 4 % patch Apply as directed once daily. - denosumab (PROLIA) 60 mg/mL syrg Inject 60 mg subcutaneously one time only. - Cholecalciferol, Vitamin D3, 25 mcg (1,000 unit) cap Vitamin D - acetaminophen (TYLENOL) 500 mg tablet Take 500 mg by mouth every 8 hours as needed. ----- Cartridge Loading Operator: Therapy (PT/OT/Speech/Resp) ID: [id number] 11/15/2023 10:34 AM Author: GEORGE TUCKER Signed by GEORGE TUCKER PT, DPT on 11/15/2023 at 10:34 AM Document text: Program_ID:[id number] Access Code: [email or web address] URL: [email or web address]/ Date: 11-15-2023 Prepared By: George Tucker Program Notes Exercises - Cat Cow - 1-2 x daily - 7 x weekly - 2 sets - 10 reps - Supine Pelvic Floor Stretch - 1 x daily - 7 x weekly - 1 sets - 3-4 reps - Supine Sciatic Nerve Ewen - 1 x daily - 7 x weekly - 3 sets - 10 reps - Supine Posterior Pelvic Tilt - 1-2 x daily - 7 x weekly - 2 sets - 10 reps - Clamshell - 1 x daily - 3 x weekly - 2 sets - 10 reps - Supine Bridge - 1 x daily - 3 x weekly - 3 sets - 10 reps - Quadruped Alternating Leg Extensions - 1 x daily - 3 x weekly - 3 sets - 10 reps - Prone Hip Extension with Pillow Under Abdomen - 1 x daily - 3 x weekly - 3 sets - 10 reps Normal [facility] THERAPY NTon 11-15-2023 THERAPY NT HNO ID: [id number] Author: GEORGE TUCKER, PT, DPT Service: ? Author Type: Physical Therapist Type: Therapy (PT/OT/Speech/Resp) Filed: 11/15/2023 10:34 Note Text: Program_ID:[id number] Access Code: [email or web address] URL: [email or web address] Date: 11-15-2023 Prepared By: George Tucker Program Notes Exercises - Cat Cow - 1-2 x daily - 7 x weekly - 2 sets - 10 reps - Supine Pelvic Floor Stretch - 1 x daily - 7 x weekly - 1 sets - 3-4 reps - Supine Sciatic Nerve Ewen - 1 x daily - 7 x weekly - 3 sets - 10 reps - Supine Posterior Pelvic Tilt - 1-2 x daily - 7 x weekly - 2 sets - 10 reps - Clamshell - 1 x daily - 3 x weekly - 2 sets - 10 reps - Supine Bridge - 1 x daily - 3 x weekly - 3 sets - 10 reps - Quadruped Alternating Leg Extensions - 1 x daily - 3 x weekly - 3 sets - 10 reps - Prone Hip Extension with Pillow Under Abdomen - 1 x daily - 3 x weekly - 3 sets - 10 reps Normal [facility] [id number] 11-08-2023 [id number] HNO ID: [id number] Author: GEORGE TUCKER PT, DPT Service: ? Author Type: Physical Therapist Type: [id number] Filed: 11/08/2023 09:52 Note Text: [facility] Rehabilitation and Sports Therapy Physical Therapy Plan of Care Certification Patient Name: Chiara Croft : 1945 [facility] #: [id number] Date: 09/30/2023 To: Albin Balderrama MD From Therapist: GEORGE TUCKER PT, DPT RE: Patient Certification/ Recertification Your review, approval and electronic signature are required in order to comply with Payor: MEDICARE / Plan: MEDICARE A AND B / Product Type: Medicare / regulations. The identified Physical Therapy PLAN OF CARE for the patient is as follows: M54.16 Lumbar radiculopathy (primary encounter diagnosis) PLAN OF CARE UPDATE: Assessment: Chiara Croft demonstrates minimal improvement in standing and walking. She has had some set backs with her pain but had a recent ablation that significantly reduced her symptoms, She has positive sacral signs but could also be tissue sensitization,. Patient continues to present with impairments in ADL's, gait, overall function, strength, symptom management, and tissue tenderness that interfere with . Current prognosis is good.Good due to: current objective clinical presentation . She will benefit from continued skilled therapy services to meet the updated goals for this plan of care as noted below. Goals for Episode of Care: created on 01/10/23 through 03/21/23 Independent in home exercises. ONGOING Patient will decrease pain to 2/10 with functional activities to allow patient to improve ambulation and standing tolerance for ADLs. ONGOING Restore pain-free lumbar ROM to minimal limitation in standing flexion to allow for ADLs MET Stand / Walk 30 minutes without pain/symptoms.MET Knowledgeable regarding prophylaxis. Patient will increase strength of bilateral hips to 5/5 to allow for improve ability to complete ADLs. ONGOING Patient Goals: aleeviate pain and get stronger Planned Interventions, Frequency, and Duration: 1x every other week, 8 weeks Total Number of Visits Planned: 4 Patient to be seen for Therapeutic exercise (26385), Neuromuscular re-education (81263), Manual therapy (01163), Therapeutic activities (76041), Self-shelter management (96204), Gait Training (99548), Patient/Family/Caregiver Education, Body Mechanics Training, Functional training, General Conditioning, E-Stim Unattended (74768) For further details regarding this patient refer to the Physical Therapy electronically documented visit dated 09/30/2023. Provider Attestation I have reviewed the treatment plan for Chiara Croft, [facility]# [id number] for the period of 09/30/23 -- 12/09/23, established on 09/30/2023. Signature certifies the need for therapy services. Normal [facility] CNTHERAPYon 11-01-2023 CNTHERAPY OT/PT/Speech Visit (PTCLMS) ----- CHIARA CROFT ([id number]) 1945 [place] [place]* Date Time Provider Department 11/01/23 9:15 AM GEORGE TUCKER [facility] Date Time Provider Department Center 11/01/2023 9:15 AM [id number], KRYSTAL PTCLMS Zuly Dozier Reason for Visit: PT Progress Note [1596] Primary Visit Diagnosis:Lumbar radiculopathy [M54.16] Allergies As of Date: 11/01/2023 Noted Allergy Reaction CYMBALTA (DULOXETINE) 10/02/2021 14 - Other: See Comments Comments: Tremor FOSAMAX (ALENDRONATE SODIUM) 09/21/2019 5 - Intolerance Comments: Reflux SEPTRA (SULFAMETHOXAZOLE-TRIMETH O*03/23/2006 4 - Hives Comments: swelling and SOB SULFAMETHOXAZOLE 05/08/2019 4 - Hives TRAMADOL 10/02/2021 14 - Other: See Comments Comments: Tremor TRIMETHOPRIM 05/08/2019 4 - Hives BUPROPION 07/06/2021 14 - Other: See Comments Date Reviewed: 10/31/2023 Reviewed by: Shayla Barlow MA - Fully Assessed Prescriptions as of 11/01/2023 - amitriptyline (ELAVIL) 10 mg tablet Take 1 tablet by mouth daily at bedtime. - methocarbamol (ROBAXIN) 500 mg tablet Take 1 tablet by mouth two times a day as needed. - gabapentin (NEURONTIN) 100 mg capsule take two pills by mouth three times daily. - rosuvastatin (CRESTOR) 5 mg tablet Take 1 tablet by mouth once daily. - guaifenesin/phenylephrine HCl (MUCINEX COLD ORAL) Take by mouth. - ondansetron orally disintegrating (ZOFRAN ODT) 4 mg disintegrating tablet Take 1 tablet by mouth every 8 hours as needed. - fluticasone/vilanterol (BREO ELLIPTA INHALATION) Inhale 1 Puff as instructed once daily. - lansoprazole (PREVACID) 15 mg capsule Take 1 capsule by mouth once daily. - L. rhamnosus GG/inulin ([facility] ORAL) Take 1 tablet by mouth once daily. - losartan (COZAAR) 50 mg tablet TAKE 1 AND 1/2 (ONE AND ONE-HALF) TABLETS BY MOUTH ONCE DAILY - levothyroxine (LEVOXYL) 88 mcg tablet Take 1 tablet by mouth once daily. Take on empty stomach. For Thyroid - clopidogrel (PLAVIX) 75 mg tablet Take 1 tablet by mouth once daily. [facility] ID: [id number] [email or web address] - albuterol HFA (VENTOLIN HFA) 90 mcg/actuation inhaler Inhale 2 Puffs as instructed every 4 hours as needed for wheezing/shortness of breath. - lidocaine (SALONPAS) 4 % patch Apply as directed once daily. - denosumab (PROLIA) 60 mg/mL syrg Inject 60 mg subcutaneously one time only. - Cholecalciferol, Vitamin D3, 25 mcg (1,000 unit) cap Vitamin D - acetaminophen (TYLENOL) 500 mg tablet Take 500 mg by mouth every 8 hours as needed. ----- Cartridge Loading Operator: Therapy (PT/OT/Speech/Resp) ID: [id number] 11/01/2023 9:59 AM Author: GEORGE TUCKER Signed by GEORGE TUCKER PT, DPT on 11/01/2023 at 9:59 AM Document text: Program_ID:[id number] Access Code: [email or web address] URL: [email or web address] Date: 11-01-2023 Prepared By: George Tucker Program Notes Exercises - Clamshell - 1-2 x daily - 7 x weekly - 2 sets - 10 reps - Cat Cow - 1-2 x daily - 7 x weekly - 2 sets - 10 reps - Supine Posterior Pelvic Tilt - 1-2 x daily - 7 x weekly - 2 sets - 10 reps - Supine Pelvic Floor Stretch - 1 x daily - 7 x weekly - 1 sets - 3-4 reps Normal [facility] THERAPY NTon 03-12-2024 THERAPY NT HNO ID: [id number] Author: GEORGE TUCKER, PT, DPT Service: ? Author Type: Physical Therapist Type: Therapy (PT/OT/Speech/Resp) Filed: 11/01/2023 09:59 Note Text: Program_ID:[id number] Access Code: [email or web address] URL: [email or web address] Date: 11-01-2023 Prepared By: George Tucker Program Notes Exercises - Clamshell - 1-2 x daily - 7 x weekly - 2 sets - 10 reps - Cat Cow - 1-2 x daily - 7 x weekly - 2 sets - 10 reps - Supine Posterior Pelvic Tilt - 1-2 x daily - 7 x weekly - 2 sets - 10 reps - Supine Pelvic Floor Stretch - 1 x daily - 7 x weekly - 1 sets - 3-4 reps Normal [facility] CNTHERAPYon 09-30-2023 CNTHERAPY OT/PT/Speech Visit (PTCLMS) ----- CHIARA CROFT ([id number]) 1945 [place]* Date Time Provider Department 09/30/23 10:15 AM GEORGE TUCKER [facility] Date Time Provider Department Center 09/30/2023 10:15 AM [id number], KRYSTAL PTCS [facility] Reason for Visit: PT Progress Note [1596] Primary Visit Diagnosis:Lumbar radiculopathy [M54.16] Allergies As of Date: 09/30/2023 Noted Allergy Reaction CYMBALTA (DULOXETINE) 10/02/2021 14 - Other: See Comments Comments: Tremor FOSAMAX (ALENDRONATE SODIUM) 09/21/2019 5 - Intolerance Comments: Reflux SEPTRA (SULFAMETHOXAZOLE-TRIMETH O*03/23/2006 4 - Hives Comments: swelling and SOB SULFAMETHOXAZOLE 05/08/2019 4 - Hives TRAMADOL 10/02/2021 14 - Other: See Comments Comments: Tremor TRIMETHOPRIM 05/08/2019 4 - Hives BUPROPION 07/06/2021 14 - Other: See Comments Date Reviewed: 09/27/2023 Reviewed by: Deysi Perez RN - Fully Assessed Prescriptions as of 11/08/2023 - amitriptyline (ELAVIL) 10 mg tablet Take 1 tablet by mouth daily at bedtime. - methocarbamol (ROBAXIN) 500 mg tablet Take 1 tablet by mouth two times a day as needed. - gabapentin (NEURONTIN) 100 mg capsule take two pills by mouth three times daily. - rosuvastatin (CRESTOR) 5 mg tablet Take 1 tablet by mouth once daily. - guaifenesin/phenylephrine HCl (MUCINEX COLD ORAL) Take by mouth. - fluticasone/vilanterol (BREO ELLIPTA INHALATION) Inhale 1 Puff as instructed once daily. - lansoprazole (PREVACID) 15 mg capsule Take 1 capsule by mouth once daily. - L. rhamnosus GG/inulin ([facility] D[facility] ORAL) Take 1 tablet by mouth once daily. - losartan (COZAAR) 50 mg tablet TAKE 1 AND 1/2 (ONE AND ONE-HALF) TABLETS BY MOUTH ONCE DAILY - levothyroxine (LEVOXYL) 88 mcg tablet Take 1 tablet by mouth once daily. Take on empty stomach. For Thyroid - clopidogrel (PLAVIX) 75 mg tablet Take 1 tablet by mouth once daily. [facility] ID: [id number] [email or web address] - albuterol HFA (VENTOLIN HFA) 90 mcg/actuation inhaler Inhale 2 Puffs as instructed every 4 hours as needed for wheezing/shortness of breath. - lidocaine (SALONPAS) 4 % patch Apply as directed once daily. - denosumab (PROLIA) 60 mg/mL syrg Inject 60 mg subcutaneously one time only. - Cholecalciferol, Vitamin D3, 25 mcg (1,000 unit) cap Vitamin D - acetaminophen (TYLENOL) 500 mg tablet Take 500 mg by mouth every 8 hours as needed. ----- Cartridge Loading Operator: Therapy (PT/OT/Speech/Resp) ID: [id number] 09/30/2023 10:59 AM Author: GEORGE TUCKER Signed by GEORGE TUCKER PT, DPT on 09/30/2023 at 10:59 AM Document text: Program_ID:[id number] Access Code: [email or web address] URL: [email or web address]://[email or web address]/ Date: 09-30-2023 Prepared By: George Tucker Program Notes Exercises - Clamshell - 1-2 x daily - 7 x weekly - 2 sets - 10 reps - Cat Cow - 1-2 x daily - 7 x weekly - 2 sets - 10 reps - Supine Posterior Pelvic Tilt - 1-2 x daily - 7 x weekly - 2 sets - 10 reps Normal [facility] THERAPY NTon 09-30-2023 THERAPY NT HNO ID: [id number] Author: GEORGE TUCKER PT, DPT Service: ? Author Type: Physical Therapist Type: Therapy (PT/OT/Speech/Resp) Filed: 09/30/2023 10:59 Note Text: Program_ID:[id number] Access Code: [email or web address] URL: [email or web address]://[email or web address]/ Date: 09-30-2023 Prepared By: George Tucker Program Notes Exercises - Clamshell - 1-2 x daily - 7 x weekly - 2 sets - 10 reps - Cat Cow - 1-2 x daily - 7 x weekly - 2 sets - 10 reps - Supine Posterior Pelvic Tilt - 1-2 x daily - 7 x weekly - 2 sets - 10 reps Normal [facility] HISTORY PHYSICALon HISTORY PHYSICAL HNO ID: [id number] Author: BRANDO GIBSON MD Service: Pain Management Author Type: Physician Type: H&P Filed: 09/27/2023 09:52 Note Text: HISTORY AND PHYSICAL EXAMINATION PATIENT NAME: Chiara Croft DATE of SERVICE: 09/27/2023 Chiara Croft is here for the pain mangement procedure. The patients presents with persistent pain complaints. Chiara Croft denies any interval changes or new pain complaints or focal neurologic deficits. PAST MEDICAL HISTORY Diagnosis Date Abdominal pain Arthritis Asthma Degenerative disc disease Depression Disorder of bone and cartilage, unspecified History of transfusion HTN (hypertension) Hypothyroid Intrinsic asthma Mixed hyperlipidemia Hyperlipidemia Osteoarthrosis, unspecified whether generalized or localized, other specified sites PMH - PAST MEDICAL HISTORY OF CVA with weakness left side PMH - PAST MEDICAL HISTORY OF 2000 left cervical radiculopathy PMH - PAST MEDICAL HISTORY OF 2003 right rib fracture PMH - PAST MEDICAL HISTORY OF 2005 right shoulder impingement syndrome Spinal stenosis Stroke (HCC) 2005 Unspecified hypothyroidism PAST SURGICAL HISTORY Procedure Laterality Date APPENDECTOMY 1960 APPENDECTOMY HX BACK SURGERY HX 2016 L3-5 Decompression and Fusion CATARACT EXTRACTION HX Bilateral COLONOSCOPY N/A 09/15/2016 MAC EGD W/O BRSH SPEC VARICIES INJ 09/17/2016 EGD W/O BRSH SPEC VARICIES INJ 11/15/2022 EPIDURAL SITE SPECIFY lumbar spine EYE SURGERY HX PAST SURGICAL HISTORY OF 1976 thyroidectomy for toxic goiter SKIN BIOPSY HX TONSILLECTOMY HX TONSILLECTOMY PRIMARY/SECONDARY Tonsillectomy Social History Tobacco Use Smoking status: Former Packs/day: 0.50 Years: 8.00 Additional pack years: 0.00 Total pack years: 4.00 Types: Cigarettes Smokeless tobacco: Never Tobacco comments: quit in 1970 Vaping Use Vaping Use: Never used Substance Use Topics Alcohol use: Yes Comment: 1-2 times per week Drug use: No FAMILY HISTORY Problem Relation Age of Onset Cerebral Embolism Mother Osteoporosis Mother other (spinal stenosis) Mother other (depression) Mother other (cva) Mother other (depression) Father other (tramatic brain syndrome) Father s/p MVA other (aplastic thyroid tumor) Sister Depression Brother Stroke Maternal Grandfather Colon Cancer No Family History ALLERGIES Allergen Reactions Cymbalta [Duloxetin* Other: See Comments Tremor Fosamax [Alendronat* Intolerance Reflux Septra [Sulfamethox* Hives swelling and SOB Sulfamethoxazole Hives Tramadol Other: See Comments Tremor Trimethoprim Hives Bupropion Other: See Comments Current Facility-Administered Medications Medication Dose Route Frequency NaCl 0.9% iv infusion 30 mL/hr INTRAVENOUS CONTINUOUS Physical Exam: Performed in conjunction with observation. The patient is alert and oriented x3. The patient is in no acute distress. Neck: Supple. The range of motion is intact. Lungs: clear CVR: RRR. Extremities: no reported edema or erythema. Examination indicates no changes Impression: Lumbar spondylosis Plan: The informed consent has been obtained. The plan is to proceed with the procedure as planned. SIGNATURE: Bradno Gibson MD DATE: September 27, 2023 TIME: 9:52 AM [facility] OPERATIVE NOon 09-27-2023 OPERATIVE NO HNO ID: [id number] Author: BRANDO GIBSON MD Service: Pain Management Author Type: Physician Type: Operative Report Filed: 09/27/2023 10:47 Note Text: PATIENT NAME: Chiara Croft SERVICE DATE: 09/27/2023 PREOPERATIVE DIAGNOSIS(ES) Lumbar spondylosis without myelopathy Degeneration of lumbar intervertebral disc Lumbar facet arthropathy POSTOPERATIVE DIAGNOSIS(ES): same PROCEDURE: Bilateral L5-S1 Lumbar Facet Medial Branch Nerve Radiofrequency Ablation under fluoroscopy. ANESTHESIA: Mild sedation with Versed 2mg, Fentanyl 50mcg. IV INDICATIONS: The patient had positive diagnostic facet medial branch nerve blocks. The pain overall has improved by greater than 60% and the patient reports an increase in physical activity. The plan is Radiofrequency ablation of medial branch nerves at L5-S1 bilaterally. The risks and benefits of the procedure were discussed. Specifically, the risks of bleeding, infection, inadvertent dural puncture, spinal heaches, vasovagal reaction, epidural hematoma, partial or permanent nerve injury were covered. The potential side effects of medications used in procedures including increase in lumbar pain, headaches, facial redness or warmth (flushing), anxiety or mood swings, sleeplessness, fever, high blood sugar, brief reduction in immunity were discussed. The patient expressed understanding of potential risks and wishes to proceed with the procedure. DESCRIPTION OF PROCEDURE: The patient was brought to the OR fluoroscopy suite. The patient was placed in the prone position with pressure points protected. Continuous hemodynamic monitoring was initiated including blood pressure, EKG, and pulse oximetry. Supplemental oxygen per nasal canula was started. The intravenous medication was administered incrementally to provide conscious sedation and to allow the patient to remain comfortable and conversant throughout the procedure. The area of the posterior lumbar area was prepped povidone-iodine three times and draped into a sterile field. Fluoroscopy was used to identify the location of the L5-S1 medial branch nerves on both sides of the spine. Skin anesthesia was achieved using 3 cc of Lidocaine 0.5% over the injection sites. A 20 gauge, 100mm (10mm active tip) curved RF needle was slowly inserted at each level using AP, lateral and oblique fluoroscopic imaging. Negative aspiration for blood or CSF was confirmed. Sensory stimulation at 50Hz below 0.5V was achieved at every level. Motor stimulation at 2Hz up to 1.5V did not cause any radicular symptoms at any level. Each level was anesthetized with 1.5 cc of lidocaine 1%. Radiofrequency lesioning was performed for 90 seconds at 80 degrees at each level. At each level, 1ml of 0.25% Marcaine with 5 mg of Kenalog was injected. The needles were removed and bleeding was nil. A sterile dressing was applied. Chiara Croft was taken to the Post-block Recovery Area for further observation. EBL: nil Start time: 10:26 AM End time: 10:43 AM I was present the entire time and personally performed the procedure. SIGNATURE: Brando Gibson MD DATE: September 27, 2023 TIME: 10:46 AM [facility] XR Chest PA and Lateralon IMPRESSION: Stable exam with no acute radiographic abnormality. Clam Treader: [facility] Transcribe Date/Time: Sep 03 2023 11:53A Dictated by : CAROL LOJA MD This examination was interpreted and the report reviewed and electronically signed by: CAROL LOJA MD on Sep 03 2023 11:54AM [facility] DIVISION OF RADIOLOGY * * *Final Report* * * DATE OF EXAM: Sep 03 2023 11:18AM WOX 5291 - XR CHEST 2V FRONTAL/LAT / PROCEDURE REASON: Acute cough * * * * Physician Interpretation * * * * EXAMINATION: CHEST RADIOGRAPH (2 VIEW FRONTAL & LATERAL) CLINICAL HISTORY: Acute cough MQ: XC2_6 EXAM DATE/TIME: 09/03/2023 11:18 AM COMPARISON: 06/07/2023. RESULT: Lines, tubes, and devices: None. Lungs and pleura: No consolidation. No lung mass. No pleural effusion. No pneumothorax. Cardiomediastinal silhouette: Normal cardiomediastinal silhouette. Bones and soft tissues: Unremarkable. DIVISION OF RADIOLOGY Provider, [facility] - 09/03/2023 * * *Final Report* * * DATE OF EXAM: Sep 03 2023 11:18AM WOX 5291 - XR CHEST 2V FRONTAL/LAT / PROCEDURE REASON: Acute cough * * * * Physician Interpretation * * * * EXAMINATION: CHEST RADIOGRAPH (2 VIEW FRONTAL & LATERAL) CLINICAL HISTORY: Acute cough MQ: XC2_6 EXAM DATE/TIME: 09/03/2023 11:18 AM COMPARISON: 06/07/2023. RESULT: Lines, tubes, and devices: None. Lungs and pleura: No consolidation. No lung mass. No pleural effusion. No pneumothorax. Cardiomediastinal silhouette: Normal cardiomediastinal silhouette. Bones and soft tissues: Unremarkable. IMPRESSION IMPRESSION: Stable exam with no acute radiographic abnormality. Clam Treader: [facility] Transcribe Date/Time: Sep 03 2023 11:53A Dictated by : CAROL LOJA MD This examination was interpreted and the report reviewed and electronically signed by: CAROL LOJA MD on Sep 03 2023 11:54AM EST [facility] Radiology Study observation (narrative) [facility] XR Chest PA and LateralOrder ed By: Cc Provider on 09-03-2023 [facility] HISTORY PHYSICALon HISTORY PHYSICAL HNO ID: [id number] Author: Brando Gibson MD Service: Pain Management Author Type: Physician Type: HANDP Filed: 08/04/2023 8:18 AM Note Text: HISTORY AND PHYSICAL EXAMINATION PATIENT NAME: Chiara Croft DATE of SERVICE: 08/04/2023 Chiara Croft is here for the pain mangement procedure. The patients presents with persistent pain complaints. Chiara Croft denies any interval changes or new pain complaints or focal neurologic deficits. PAST MEDICAL HISTORY Diagnosis Date Abdominal pain Arthritis Asthma Degenerative disc disease Depression Disorder of bone and cartilage, unspecified History of transfusion HTN (hypertension) Hypothyroid Intrinsic asthma Mixed hyperlipidemia Hyperlipidemia Osteoarthrosis, unspecified whether generalized or localized, other specified sites PMH - PAST MEDICAL HISTORY OF CVA with weakness left side PMH - PAST MEDICAL HISTORY OF 2000 left cervical radiculopathy PMH - PAST MEDICAL HISTORY OF 2003 right rib fracture PMH - PAST MEDICAL HISTORY OF 2005 right shoulder impingement syndrome Spinal stenosis Stroke (HCC) 2005 Unspecified hypothyroidism PAST SURGICAL HISTORY Procedure Laterality Date APPENDECTOMY 1959 APPENDECTOMY HX BACK SURGERY HX 2016 L3-5 Decompression and Fusion CATARACT EXTRACTION HX Bilateral COLONOSCOPY N/A 09/15/2016 MAC EGD W/O [facility] SPEC VARICIES INJ 09/17/2016 EGD W/O [facility] SPEC VARICIES INJ 11/15/2022 EPIDURAL SITE SPECIFY lumbar spine EYE SURGERY HX PAST SURGICAL HISTORY OF 1976 thyroidectomy for toxic goiter SKIN BIOPSY HX TONSILLECTOMY HX TONSILLECTOMY PRIMARY/SECONDARY Tonsillectomy Social History Tobacco Use Smoking status: Former Packs/day: 0.50 Years: 8.00 Additional pack years: 0.00 Total pack years: 4.00 Types: Cigarettes Smokeless tobacco: Never Tobacco comments: quit in 1969 Vaping Use Vaping Use: Never used Substance Use Topics Alcohol use: Yes Comment: 1-2 times per week Drug use: No FAMILY HISTORY Problem Relation Age of Onset Cerebral Embolism Mother Osteoporosis Mother other (spinal stenosis) Mother other (depression) Mother other (cva) Mother other (depression) Father other (tramatic brain syndrome) Father s/p MVA other (aplastic thyroid tumor) Sister Depression Brother Stroke Maternal Grandfather Colon Cancer No Family History ALLERGIES Allergen Reactions Cymbalta [Duloxetin* Other: See Comments Tremor Fosamax [Alendronat* Intolerance Reflux Septra [Sulfamethox* Hives swelling and SOB Sulfamethoxazole Hives Tramadol Other: See Comments Tremor Trimethoprim Hives Bupropion Other: See Comments Current Facility-Administered Medications Medication Dose Route Frequency NaCl 0.9% iv infusion 30 mL/hr INTRAVENOUS CONTINUOUS Physical Exam: Performed in conjunction with observation. The patient is alert and oriented x3. The patient is in no acute distress. Neck: Supple. The range of motion is intact. Lungs: clear CVR: RRR. Extremities: no reported edema or erythema. Examination indicates no changes Impression: Lumbar foraminal stenosis Plan: The informed consent has been obtained. The plan is to proceed with the procedure as planned. SIGNATURE: Brando Gibson MD DATE: August 04, 2023 TIME: 8:18 AM [facility] OPERATIVE NOon 08-04-2023 OPERATIVE NO HNO ID: [id number] Author: Brando Gibson MD Service: Pain Management Author Type: Physician Type: Operative Report Filed: 08/04/2023 9:34 AM Note Text: PATIENT NAME: Chiara Croft SERVICE DATE: 08/04/2023 PROCEDURE NOTE PREOPERATIVE DIAGNOSIS(ES) Lumbar radiculopathy Lumbar disc displacement Lumbar canal stenosis without neurogenic claudication Lumbar DDD POSTOPERATIVE DIAGNOSIS(ES): Same PROCEDURE Bilateral L2-3 lumbar transforaminal epidural steroid injection under fluoroscopy. ANESTHESIA: Conscious sedation with Versed 2mg, IV INDICATIONS: The patient presents for lumbar transforaminal epidural steroid injection. Since the last assessment, the patient denies any new pain complaints and denies any focal neurological deficits. The risks and benefits of the procedure were discussed. Specifically, the risks of bleeding, infection, inadvertent dural puncture, spinal heaches, vasovagal reaction, epidural hematoma, partial or permanent nerve injury were covered. The potential side effects of medications used in procedures including increase in lumbar pain, headaches, facial redness or warmth (flushing), anxiety or mood swings, sleeplessness, fever, high blood sugar, brief reduction in immunity were discussed. The patient expressed understanding of potential risks and wishes to proceed with the procedure. PROCEDURE NOTE: The patient was brought to the operating room. The patient was placed in the prone position with pressure points protected. Continuous hemodynamic monitoring was initiated including blood pressure, EKG, and pulse oximetry. Supplemental oxygen per nasal canula was started. The intravenous medication was administered incrementally to provide conscious sedation and to allow the patient to remain comfortable and conversant throughout the procedure. The lower back was prepped in sterile fashion. Upon AP projection under fluoroscopy, L2-3 level was identified. The fluoroscopy was rotated in oblique projection to identify the neuroforamen. Entry point was marked and anesthetized with 2ml of 0.25% Marcaine. This was followed by insertion of a 5 inch spinal needle, which was inserted and advanced towards the 12 o' clock of the L2-3 neuroforamen. Once the Needle tip contacted the inferior lateral aspect of the pedicle, aspiration was performed which was negative for blood or CSF. This was followed by injection of 0.2 ml of Omnipaque 300, which revealed a spread through the neuroforamen into the anterior epidural space. There was no evidence of intravascular or intrathecal flow. This was then repeated on the left side using the same technique. No difficulty was encountered. This was then followed by a total injection of 4 mL of 0.25% Marcaine with 40 mg of Depomedrol in divided and equal doses to bilateral sites. The patient tolerated the procedure well. The needles were removed intact. Dry dressing was placed over the injection site. The patient was taken to the recovery room in stable condition. EBL: nil Start time: 9:24 AM End time: 9:33 AM I was present the entire time and personally performed the procedure. SIGNATURE: Brando Gibosn MD DATE: August 04, 2023 TIME: 9:34 AM [facility] No Panel Informationon 08-01 [facility] CNTHERAPYon 07-21-2023 CNTHERAPY OT/PT/Speech Visit (AKPTB) ----- CHIARA CROFT ([id number]) 1945 F [place] [facility] [place] Department 07/21/23 9:15 AM GEORGE TUCKER Date Time Provider Department Center 07/21/2023 9:15 AM [id number] TUCKER [facility] Reason for Visit: Physical Therapy [503] Primary Visit Diagnosis:Lumbar radiculopathy [M54.16] Allergies As of Date: 07/21/2023 Noted Allergy Reaction CYMBALTA (DULOXETINE) 10/02/2021 14 - Other: See Comments Comments: Tremor FOSAMAX (ALENDRONATE SODIUM) 09/21/2019 5 - Intolerance Comments: Reflux SEPTRA (SULFAMETHOXAZOLE-TRIMETH O*03/23/2006 4 - Hives Comments: swelling and SOB SULFAMETHOXAZOLE 05/08/2019 4 - Hives TRAMADOL 10/02/2021 14 - Other: See Comments Comments: Tremor TRIMETHOPRIM 05/08/2019 4 - Hives BUPROPION 07/06/2021 14 - Other: See Comments Date Reviewed: 07/12/2023 Reviewed by: Zheng Tse - Fully Assessed Prescriptions as of 07/21/2023 - lansoprazole (PREVACID) 15 mg capsule Take 1 capsule by mouth once daily. - amoxicillin-clavulanate potassium (AUGMENTIN) 875-125 mg per tablet Take 1 tablet by mouth two times a day. - predniSONE (DELTASONE) 20 mg tablet Take 1 tablet by mouth once daily. - guaifenesin/dextromethorp martinez (MUCUS RELIEF DM MAX ORAL) Take 1 tablet by mouth two times a day. - L. rhamnosus GG/inulin ([facility] ORAL) Take 1 tablet by mouth once daily. - losartan (COZAAR) 50 mg tablet TAKE 1 AND 1/2 (ONE AND ONE-HALF) TABLETS BY MOUTH ONCE DAILY - levothyroxine (LEVOXYL) 88 mcg tablet Take 1 tablet by mouth once daily. Take on empty stomach. For Thyroid - zinc sulfate 220 mg (50 mg zinc) capsule - famotidine (PEPCID) 40 mg tablet Take 1 tablet by mouth once daily as needed. - fluticasone-salmeterol (ADVAIR, WIXELA) 250-50 mcg/dose inhaler - rosuvastatin (CRESTOR) 5 mg tablet Take 1 tablet by mouth once daily. - clopidogrel (PLAVIX) 75 mg tablet Take 1 tablet by mouth once daily. [facility] ID: [id number] [email or web address] - albuterol HFA (VENTOLIN HFA) 90 mcg/actuation inhaler Inhale 2 Puffs as instructed every 4 hours as needed for wheezing/shortness of breath. - lidocaine (SALONPAS) 4 % patch Apply as directed once daily. - denosumab (PROLIA) 60 mg/mL syrg Inject 60 mg subcutaneously one time only. - Cholecalciferol, Vitamin D3, 25 mcg (1,000 unit) cap Vitamin D - acetaminophen (TYLENOL) 500 mg tablet Take 500 mg by mouth every 8 hours as needed. Facility-Administered Medications as of 07/21/2023 - denosumab 60 mg injection (PROLIA) ----- Normal [facility] CNTHERAPYon 07-06-2023 CNTHERAPY OT/PT/Speech Visit (AKPTB) ----- CHIARA CROFT ([id number]) 1945 F [place] [facility] Date Time Provider Department 07/06/23 11:30 AM GEORGE TUCKER Date Time Provider Department Center 07/06/2023 11:30 AM [id number] TUCKER [facility] Reason for Visit: PT Progress Note [1596] Primary Visit Diagnosis:Lumbar radiculopathy [M54.16] Allergies As of Date: 07/06/2023 Noted Allergy Reaction CYMBALTA (DULOXETINE) 10/02/2021 14 - Other: See Comments Comments: Tremor FOSAMAX (ALENDRONATE SODIUM) 09/21/2019 5 - Intolerance Comments: Reflux SEPTRA (SULFAMETHOXAZOLE-TRIMETH O*03/23/2006 4 - Hives Comments: swelling and SOB SULFAMETHOXAZOLE 05/08/2019 4 - Hives TRAMADOL 10/02/2021 14 - Other: See Comments Comments: Tremor TRIMETHOPRIM 05/08/2019 4 - Hives BUPROPION 07/06/2021 14 - Other: See Comments Date Reviewed: 06/21/2023 Reviewed by: Strait, Sonya, OCCA - Fully Assessed Prescriptions as of 07/06/2023 - amoxicillin-clavulanate potassium (AUGMENTIN) 875-125 mg per tablet Take 1 tablet by mouth two times a day. - predniSONE (DELTASONE) 20 mg tablet Take 1 tablet by mouth once daily. - guaifenesin/dextromethorp martinez (MUCUS RELIEF DM MAX ORAL) Take 1 tablet by mouth two times a day. - L. rhamnosus GG/inulin ([facility] ORAL) Take 1 tablet by mouth once daily. - losartan (COZAAR) 50 mg tablet TAKE 1 AND 1/2 (ONE AND ONE-HALF) TABLETS BY MOUTH ONCE DAILY - levothyroxine (LEVOXYL) 88 mcg tablet Take 1 tablet by mouth once daily. Take on empty stomach. For Thyroid - zinc sulfate 220 mg (50 mg zinc) capsule - famotidine (PEPCID) 40 mg tablet Take 1 tablet by mouth once daily as needed. - fluticasone-salmeterol (ADVAIR, WIXELA) 250-50 mcg/dose inhaler - rosuvastatin (CRESTOR) 5 mg tablet Take 1 tablet by mouth once daily. - clopidogrel (PLAVIX) 75 mg tablet Take 1 tablet by mouth once daily. [facility] ID: [id number] [email or web address] - albuterol HFA (VENTOLIN HFA) 90 mcg/actuation inhaler Inhale 2 Puffs as instructed every 4 hours as needed for wheezing/shortness of breath. - lidocaine (SALONPAS) 4 % patch Apply as directed once daily. - denosumab (PROLIA) 60 mg/mL syrg Inject 60 mg subcutaneously one time only. - Cholecalciferol, Vitamin D3, 25 mcg (1,000 unit) cap Vitamin D - acetaminophen (TYLENOL) 500 mg tablet Take 500 mg by mouth every 8 hours as needed. Facility-Administered Medications as of 07/06/2023 - denosumab 60 mg injection (PROLIA) ----- Cartridge Loading Operator: Therapy (PT/OT/Speech/Resp) ID: [id number] 07/06/2023 12:04 PM Author: GEORGE TUCKER Signed by GEORGE TUCKER PT, DPT on 07/06/2023 at 12:04 PM Document text: Program_ID:[id number] Access Code: [email or web address] URL: [email or web address] Date: 07-06-2023 Prepared By: George Tucker Program Notes Exercises - Prone Press Up On Elbows - 1 x daily - 7 x weekly - 3 - 10 - Upper Back Extension Off Table - 1 x daily - 7 x weekly - 3 - 10 - Prone Hip Extension with Pillow Under Abdomen - 1 x daily - 7 x weekly - 3 - 10 - Cat Cow - 1 x daily - 7 x weekly - 1 - 10 - Seated Thoracic Lumbar Extension - 1 x daily - 7 x weekly - 1 - 10 - Supine Bridge - 1 x daily - 7 x weekly - 2 - 10 - Supine Bridge with Resistance Band - 1 x daily - 7 x weekly - 3 - 10 - Wall Squat with Chilean Ball - 1 x daily - 7 x weekly - 3 - 10 - Sit to Stand Without Arm Support - 1 x daily - 7 x weekly - 3 - 10 - Sidelying Hip Abduction - 1 x daily - 7 x weekly - 2 - 10 Therapy (PT/OT/Speech/Resp) ID: [id number] 07/06/2023 12:00 PM Author: GEORGE TUCKER Signed by GEORGE TUCKER PT, DPT on 07/06/2023 at 12:00 PM Document text: Program_ID:[id number] Access Code: [email or web address] URL: [email or web address] Date: 07-06-2023 Prepared By: George Tucker Program Notes Exercises - Prone Press Up On Elbows - 1 x daily - 7 x weekly - 3 - 10 - Upper Back Extension Off Table - 1 x daily - 7 x weekly - 3 - 10 - Prone Hip Extension with Pillow Under Abdomen - 1 x daily - 7 x weekly - 3 - 10 - Cat Cow - 1 x daily - 7 x weekly - 1 - 10 - Seated Thoracic Lumbar Extension - 1 x daily - 7 x weekly - 1 - 10 - Supine Bridge - 1 x daily - 7 x weekly - 2 - 10 - Wall Squat with Chilean Ball - 1 x daily - 7 x weekly - 3 - 10 - Sit to Stand Without Arm Support - 1 x daily - 7 x weekly - 3 - 10 - Sidelying Hip Abduction - 1 x daily - 7 x weekly - 2 - 10 Normal [facility] THERAPY NTon 07-06-2023 THERAPY NT HNO ID: [id number] Author: George Tucker, PT, DPT Service: ? Author Type: Physical Therapist Type: Therapy (PT/OT/Speech/Resp) Filed: 07/06/2023 12:04 PM Note Text: Program_ID:[id number] Access Code: [email or web address] URL: [email or web address] Date: 07-06-2023 Prepared By: George Tucker Program Notes Exercises - Prone Press Up On Elbows - 1 x daily - 7 x weekly - 3 - 10 - Upper Back Extension Off Table - 1 x daily - 7 x weekly - 3 - 10 - Prone Hip Extension with Pillow Under Abdomen - 1 x daily - 7 x weekly - 3 - 10 - Cat Cow - 1 x daily - 7 x weekly - 1 - 10 - Seated Thoracic Lumbar Extension - 1 x daily - 7 x weekly - 1 - 10 - Supine Bridge - 1 x daily - 7 x weekly - 2 - 10 - Supine Bridge with Resistance Band - 1 x daily - 7 x weekly - 3 - 10 - Wall Squat with Chilean Ball - 1 x daily - 7 x weekly - 3 - 10 - Sit to Stand Without Arm Support - 1 x daily - 7 x weekly - 3 - 10 - Sidelying Hip Abduction - 1 x daily - 7 x weekly - 2 - 10 Normal [facility] THERAPY NT HNO ID: [id number] Author: George Tucker, PT, DPT Service: ? Author Type: Physical Therapist Type: Therapy (PT/OT/Speech/Resp) Filed: 07/06/2023 12:00 PM Note Text: Program_ID:[id number] Access Code: [email or web address] URL: [email or web address] Date: 07-06-2023 Prepared By: George Tucker Program Notes Exercises - Prone Press Up On Elbows - 1 x daily - 7 x weekly - 3 - 10 - Upper Back Extension Off Table - 1 x daily - 7 x weekly - 3 - 10 - Prone Hip Extension with Pillow Under Abdomen - 1 x daily - 7 x weekly - 3 - 10 - Cat Cow - 1 x daily - 7 x weekly - 1 - 10 - Seated Thoracic Lumbar Extension - 1 x daily - 7 x weekly - 1 - 10 - Supine Bridge - 1 x daily - 7 x weekly - 2 - 10 - Wall Squat with Chilean Ball - 1 x daily - 7 x weekly - 3 - 10 - Sit to Stand Without Arm Support - 1 x daily - 7 x weekly - 3 - 10 - Sidelying Hip Abduction - 1 x daily - 7 x weekly - 2 - 10 Normal [facility] Absolute lymphocyte countOrd ered By: Elana Bae on 06-18-2023 Lymphocytes Auto (Unsp spec) [#/Vol] 0.85 10*3/uL 0.83-4.51 [facility] Basophil percentageOrdered B y: Elana Bae on 06-18-2023 Basophils/100 WBC (Bld) 0.1 % 0-1 [facility] Chloride [Moles/Vol] 105 mmol/L 98-107 [facility] Eosinophils/100 WBC (Bld) 0.0 % 0-5 [facility] Glucose [Mass/Vol] 139 mg/dL 74-106 [facility] Comment on above: Fasting Glucose resu lt greater than or equal to 126 mg/dL suggests DIABETES MELLITUS per A.D.A. criteria. Neutrophils (Bld) [#/Vol] 10.0 10*3/uL 2.0-7.7 [facility] Neutrophils/100 WBC (Bld) 90.6 % 47-70 [facility] Potassium [Moles/Vol] 3.8 mmol/L 3.5-5.1 [facility] Sodium [Moles/Vol] 135 mmol/L 136-145 [facility] WBC (Bld) [#/Vol] 11.0 10*3/uL 4.4-11.0 [facility] Blood erythrocytes count (nu mber/volume)Ordered By: Elana Bae on 06-18-2023 RBC (Bld) [#/Vol] 3.93 10*6/uL 4.2-5.4 [facility] Blood hemoglobin measurement (mass/volume)Ordered By: Elana Bae on 06-18-2023 Hemoglobin (Bld) [Mass/Vol] 12.3 g/dL 12.0-15.0 [facility] Blood lymphocytes/100 leukoc ytesOrdered By: Elana Bae on 06-18-2023 Lymphocytes/100 WBC (Bld) 7.7 % 19-41 [facility] Blood monocytes/100 leukocyt esOrdered By: Elana Bae on 06-18-2023 Monocytes/100 WBC (Bld) 1.2 % 0-10 [facility] Blood platelet mean volumeOr dered By: Elana Bae on 06-18-2023 Platelet mean volume (Bld) [Entitic vol] 9.7 fL 6.2-12.0 [facility] Determination of erythrocyte mean corpuscular volume (MCV)Ordered By: Elana Bae on 06-18-2023 MCV (RBC) [Entitic vol] 93.1 fL 81-99 [facility] Hematocrit Auto (Bld) [Volum e fraction]Ordered By: Elana Bae on 06-18-2023 Hematocrit (Bld) [Volume fraction] 36.6 % 37-47 [facility] Laboratory - Chemistry and C hemistry - challengeOrdered By: Elana Bae on 06-18-2023 CO2 [Moles/Vol] 20.0 mmol/L 21.0-32.0 [facility] Urea nitrogen/Creatinine [Mass ratio] 13.7 mg/mg 10-20 [facility] Laboratory - Hematology and Cell countsOrdered By: Elana Bae on 06-18-2023 Erythrocyte distribution width (RBC) [Entitic vol] 46.6 fL 35.1-43.9 [facility] Erythrocyte distribution width (RBC) [Ratio] 13.6 % 11.6-14.6 [facility] Immature granulocytes/100 WBC (Bld) 0.400 % 0.0-0.9 [facility] Comment on above: IG% - Immature Granu locytes (promyelocytes, myelocytes and metamyelocytes) > 1% indicates that a LEFT SHIFT is Present. MCH (RBC) [Entitic mass] 31.3 pg 27.0-32.0 [facility] Nucleated RBC/100 WBC (Bld) [Ratio] 0 % 0-5 [facility] MCHC Auto (RBC) [Mass/Vol]Or dered By: Elana Bae on 06-18-2023 MCHC (RBC) [Mass/Vol] 33.6 g/dL 32-36 [facility] No Panel InformationOrdered By: Elana Bae on 06-18-2023 Estimated Creatinine Clearance Calc 38.35 ml/min [facility] Estimated GFR (MDRD) Amer 128 mL/min >60 [facility] Comment on above: GFR Calc Estimated GFR (MDRD) Non-Af Amer 106 mL/min >60 [facility] Comment on above: Non- GFR Calc Platelets bldOrdered By: Roula Bae on 06-18-2023 Platelets (Bld) [#/Vol] 354 10*3/uL 150-450 [facility] Serum or plasma calcium rosalba urement (mass/volume)Ordered By: Elana Bae on 06-18-2023 Calcium [Mass/Vol] 8.7 mg/dL 8.5-10.1 [facility] Serum or plasma creatinine m easurement (mass/volume)Ordered By: Elana Bae on 06-18-2023 Creatinine [Mass/Vol] 0.58 mg/dL 0.55-1.02 [facility] Comment on above: The validity of the calculated GFR & GFRAA in patients over 70 years has not been determined. Clinical correlation is essential. Serum or plasma urea nitroge n measurement (mass/volume)Ordered By: Elana Bae on 06-18-2023 Urea nitrogen [Mass/Vol] 8 mg/dL 7-18 [facility] Thin prep Papanicolaou smear with manual screeningOrdered By: Elana Bae on 06-18-2023 Thin prep Papanicolaou smear with manual screening 10 5-15 [facility] Basophil percentageOrdered B y: Shayla Connor on 06-17-2023 Basophil percentage 2.4 mg/dL 2.5-4.9 [facility] Bilirubin [Mass/Vol] 0.30 mg/dL 0.20-1.00 [facility] Comment on above: For patients on eltr ombopag therapy, use of Dimension [place] TBIL is not recommended. Protein [Mass/Vol] 5.9 g/dL 6.4-8.2 [facility] Laboratory - Chemistry and C hemistry - challengeOrdered By: Shayla Connor on 06-17-2023 ALP [Catalytic activity/Vol] 40 U/L 45-117 [facility] ALT [Catalytic activity/Vol] 15 U/L 13-56 [facility] Globulin (S) [Mass/Vol] 3.4 g/dL 2.2-4.2 [facility] Magnesium [Mass/Vol] 2.3 mg/dL 1.6-2.6 [facility] Laboratory - Chemistry and C hemistry - challengeOrdered By: Elana Bae on 06-17-2023 Free T4 [Mass/Vol] 1.29 ng/dL 0.76-1.46 [facility] No Panel InformationOrdered By: Elana Bae on 06-17-2023 Troponin I High Sensitivity 7 pg/mL 3.0-54.0 [facility] Comment on above: Please Note: New Araceli t Units and Gender Specific Reference Ranges. For more information see Policy Stat Procedure [place] High Sensitivity Troponin (TNIH) and attachments. Thyroid Stimulating Hormone (TSH) 1.08 uIU/mL 0.358-3.74 [facility] Serum or plasma albumin rosalba urement (mass/volume)Ordered By: Shayla Connor on 06-17-2023 Albumin [Mass/Vol] 2.5 g/dL 3.2-5.0 [facility] Serum or plasma albumin/glob ulin mass ratioOrdered By: Shayla Connor on 06-17-2023 Albumin/Globulin [Mass ratio] 0.7 {ratio} 0.9-2.4 [facility] Thin prep Papanicolaou smear with manual screeningOrdered By: Shayla Connor on 06-17-2023 Thin prep Papanicolaou smear with manual screening 10 U/L 15-37 [facility] Absolute lymphocyte countOrd ered By: Bill Coombs on 06-16-2023 Lymphocytes Auto (Unsp spec) [#/Vol] 0.58 10*3/uL 0.83-4.51 [facility] Basophil percentageOrdered B y: Bill Coombs on 06-16-2023 Basophil percentage 0-5 SEEN /hpf 0-5 [facility] Lactate [Moles/Vol] 0.8 mmol/L 0.4-2.0 [facility] Basophils/100 WBC (Bld) 0.2 % 0-1 [facility] Chloride [Moles/Vol] 100 mmol/L 98-107 [facility] Eosinophils/100 WBC (Bld) 0.5 % 0-5 [facility] Glucose [Mass/Vol] 122 mg/dL 74-106 [facility] Comment on above: Fasting Glucose resu lt from 100 to 125 mg/dL suggests IMPAIRED HOMEOSTASIS per A.D.A. criteria. Neutrophils (Bld) [#/Vol] 15.8 10*3/uL 2.0-7.7 [facility] Neutrophils/100 WBC (Bld) 91.0 % 47-70 [facility] Potassium [Moles/Vol] 3.8 mmol/L 3.5-5.1 [facility] Sodium [Moles/Vol] 130 mmol/L 136-145 [facility] WBC (Bld) [#/Vol] 17.3 10*3/uL 4.4-11.0 [facility] Bilirubin Test strip Ql (U)O rdered By: Bill Coombs on 06-16-2023 Bilirubin Ql (U) Negative Negative [facility] Blood erythrocytes count (nu mber/volume)Ordered By: Bill Coombs on 06-16-2023 RBC (Bld) [#/Vol] 3.91 10*6/uL 4.2-5.4 [facility] Blood hemoglobin measurement (mass/volume)Ordered By: Bill Coombs on 06-16-2023 Hemoglobin (Bld) [Mass/Vol] 11.9 g/dL 12.0-15.0 [facility] Blood lymphocytes/100 leukoc ytesOrdered By: Bill Coombs on 06-16-2023 Lymphocytes/100 WBC (Bld) 3.3 % 19-41 [facility] Blood manual differential co mment interpretation (narrative result)Ordered By: Bill Coombs on 06-16-2023 Manual differential comment Gonzales (Bld) [Interp] SCANNED [facility] Blood monocytes/100 leukocyt esOrdered By: Bill Coombs on 06-16-2023 Monocytes/100 WBC (Bld) 4.6 % 0-10 [facility] Blood platelet mean volumeOr dered By: Bill Coombs on 06-16-2023 Platelet mean volume (Bld) [Entitic vol] 9.4 fL 6.2-12.0 [facility] Culture, urineOrdered By: Tej Coombs on 06-16-2023 Bacteria identified Cx Nom (U) Culture exhibits no growth. [facility] Determination of erythrocyte mean corpuscular volume (MCV)Ordered By: Bill Coombs on 06-16-2023 MCV (RBC) [Entitic vol] 91.3 fL 81-99 [facility] Hematocrit Auto (Bld) [Volum e fraction]Ordered By: Bill Coombs on 06-16-2023 Hematocrit (Bld) [Volume fraction] 35.7 % 37-47 [facility] INR in Blood by Coagulation assayOrdered By: Bill oCombs on 06-16-2023 INR Coag (Bld) [Relative time] 1.0 {INR} [facility] Ketones Test strip Ql (U)Ord ered By: Bill Coombs on 06-16-2023 Ketones Ql (U) 5 mg/dl Negative [facility] Laboratory - Chemistry and C hemistry - challengeOrdered By: Bill Coombs on 06-16-2023 CO2 [Moles/Vol] 24.0 mmol/L 21.0-32.0 [facility] Urea nitrogen/Creatinine [Mass ratio] 13.0 mg/mg 10- [facility] Laboratory - CoagulationOrde red By: Bill Coombs on 06-16-2023 aPTT Coag (Bld) [Time] 32.5 s 24.1-36.2 [facility] PT Coag (PPP) [Time] 13.2 s 11.7-14.9 [facility] Laboratory - Hematology and Cell countsOrdered By: Bill Coombs on 06-16-2023 Erythrocyte distribution width (RBC) [Entitic vol] 46.4 fL 35.1-43.9 [facility] Erythrocyte distribution width (RBC) [Ratio] 13.7 % 11.6-14.6 [facility] Immature granulocytes/100 WBC (Bld) 0.400 % 0.0-0.9 [facility] Comment on above: IG% - Immature Granu locytes (promyelocytes, myelocytes and metamyelocytes) > 1% indicates that a LEFT SHIFT is Present. MCH (RBC) [Entitic mass] 30.4 pg 27.0-32.0 [facility] Nucleated RBC/100 WBC (Bld) [Ratio] 0 % 0-5 [facility] MCHC Auto (RBC) [Mass/Vol]Or dered By: Bill Coombs on 06-16-2023 MCHC (RBC) [Mass/Vol] 33.3 g/dL [facility] Mucus LM Ql (Urine sed)Order ed By: Bill Coombs on 06-16-2023 Mucus Ql (Urine sed) 0 SEEN /hpf [facility] Nitrite Test strip Ql (U)Ord ered By: Bill Coombs on 06-16-2023 Nitrite Ql (U) Negative Negative [facility] No Panel InformationOrdered By: Shayla Connor on 06-16-2023 Methicillin-Resist S.aureus DNA PCR Negative Negative [facility] No Panel InformationOrdered By: Bill Coombs on 06-16-2023 Estimated Creatinine Clearance Calc 38.35 ml/min [facility] Estimated GFR (MDRD) Amer 120 mL/min >60 [facility] Comment on above: GFR Calc Estimated GFR (MDRD) Non-Af Amer 99 mL/min >60 [facility] Comment on above: Non- GFR Calc Troponin I High Sensitivity 9 pg/mL 3.0-54.0 [facility] Comment on above: Please Note: New Araceli t Units and Gender Specific Reference Ranges. For more information see Policy Stat Procedure [place] High Sensitivity Troponin (TNIH) and attachments. Platelets bldOrdered By: Teresa Coombs on 06-16-2023 Platelets (Bld) [#/Vol] 359 10*3/uL 150-450 [facility] Protein Test strip Ql (U)Ord ered By: Bill Coombs on 06-16-2023 Protein Ql (U) 15 mg/dl Negative [facility] Respiratory pathogens detect ion panel by molecular detection methodOrdered By: Shayla Connor on 06-16-2023 Respiratory pathogens DNA and RNA panel AZAR+probe (Resp) [facility] Serum or plasma calcium rosalba urement (mass/volume)Ordered By: Bill Coombs on 06-16-2023 Calcium [Mass/Vol] 8.8 mg/dL 8.5-10.1 [facility] Serum or plasma creatinine m easurement (mass/volume)Ordered By: Bill Coombs on 06-16-2023 Creatinine [Mass/Vol] 0.62 mg/dL 0.55-1.02 [facility] Comment on above: The validity of the calculated GFR & GFRAA in patients over 70 years has not been determined. Clinical correlation is essential. Serum or plasma urea nitroge n measurement (mass/volume)Ordered By: Bill Coombs on 06-16-2023 Urea nitrogen [Mass/Vol] 8 mg/dL 7-18 [facility] Squamous epithelial cells de tection in urine sediment by light microscopyOrdered By: Bill Coombs on 06-16-2023 Epithelial cells.squamous LM Ql (Urine sed) 0 SEEN /hpf 5-10 [facility] Thin prep Papanicolaou smear with manual screeningOrdered By: Bill Coombs on 06-16-2023 Thin prep Papanicolaou smear with manual screening 6 5-15 [facility] Urine blood detectionOrdered By: Bill Coomsb on 06-16-2023 RBC Ql (U) 10 /ul Negative [facility] RBC Ql (U) 0 SEEN /hpf 0-5 [facility] Urine clarityOrdered By: Teresa Coombs on 06-16-2023 Clarity (U) Clear Clear [facility] Urine color determinationOrd ered By: Bill Coombs on 06-16-2023 Color (U) Yellow Yellow [facility] Urine glucose detectionOrder ed By: Bill Coombs on 06-16-2023 Glucose Ql (U) Normal mg/dl Normal [facility] Urine leukocyte esterase det ection by dipstickOrdered By: Bill Coombs on 06-16-2023 Leukocyte esterase Test strip Ql (U) 25 /ul Negative [facility] Urine pHOrdered By: Bill kapadia on 06-16-2023 pH (U) 7.0 [pH] 5.0 - 8.0 [facility] Urine sediment bacteria coun t by microscopy (number/high power field)Ordered By: Bill Coombs on 06-16-2023 Bacteria LM.HPF (Urine sed) [#/Area] 0 /[HPF] None Seen [facility] Urine specific gravity measu rementOrdered By: Bill Coombs on 06-16-2023 Specific gravity (U) [Rel density] 1.010 1.002-1.03 0 [facility] Urobilinogen Auto test strip Ql (U)Ordered By: Bill Coombs on 06-16-2023 Urobilinogen Ql (U) Normal mg/dl Normal [facility] CBC W Auto Differential pane l (Bld)on 06-08-2023 Basophils (Bld) [#/Vol] 0.04 10*3/uL <0.11 k/uL [facility] Basophils/100 WBC (Bld) 0.3 % [facility] Differential cell count method Nom (Bld) Auto [facility] Eosinophils (Bld) [#/Vol] <0.46 k/uL [facility] Eosinophils/100 WBC (Bld) 0.1 % [facility] Erythrocyte distribution width (RBC) [Ratio] 13.9 % 11.5 - 15.0 % [facility] Hematocrit (Bld) [Volume fraction] 39.3 % 36.0 - 46.0 % [facility] Hemoglobin (Bld) [Mass/Vol] 13.0 g/dL 11.5 - 15.5 g/dL [facility] Immature granulocytes (Bld) [#/Vol] 0.04 10*3/uL <0.10 k/uL [facility] Immature granulocytes/100 WBC (Bld) 0.3 % [facility] Lymphocytes (Bld) [#/Vol] 1.13 10*3/uL 1.00 - 4.00 k/uL [facility] Lymphocytes/100 WBC (Bld) 8.1 % [facility] MCH (RBC) [Entitic mass] 30.9 pg 26.0 - 34.0 pg [facility] MCHC (RBC) [Mass/Vol] 33.1 g/dL 30.5 - 36.0 g/dL [facility] MCV (RBC) [Entitic vol] 93.3 fL 80.0 - 100.0 fL [facility] Monocytes (Bld) [#/Vol] 0.99 10*3/uL High <0.87 k/uL [facility] Monocytes/100 WBC (Bld) 7.1 % [facility] Neutrophils (Bld) [#/Vol] 11.66 10*3/uL High 1.45 - 7.50 k/uL [facility] Neutrophils/100 WBC (Bld) 84.1 % [facility] Nucleated RBC (Bld) [#/Vol] <0.01 k/uL [facility] Nucleated RBC/100 WBC (Bld) [Ratio] 0.0 /100 WBC [facility] Platelet mean volume (Bld) [Entitic vol] 9.4 fL 9.0 - 12.7 fL [facility] Platelets (Bld) [#/Vol] 369 10*3/uL 150 - 400 k/uL [facility] RBC (Bld) [#/Vol] 4.21 10*6/uL 3.90 - 5.20 m/uL [facility] WBC (Bld) [#/Vol] 13.88 10*3/uL High 3.70 - 11.00 k/uL [facility] Comprehensive metabolic 2000 panelon 06-08-2023 Albumin [Mass/Vol] 4.3 g/dL 3.9 - 4.9 g/dL [facility] ALP [Catalytic activity/Vol] 50 U/L 34 - 123 U/L [facility] ALT [Catalytic activity/Vol] 9 U/L 7 - 38 U/L [facility] Anion gap [Moles/Vol] 9 mmol/L 9 - 18 mmol/L [facility] AST [Catalytic activity/Vol] 15 U/L 13 - 35 U/L [facility] Bilirubin [Mass/Vol] 0.7 mg/dL 0.2 - 1 .3 mg/dL [facility] Calcium [Mass/Vol] 9.3 mg/dL 8.5 - 10. 2 mg/dL [facility] Chloride [Moles/Vol] 98 mmol/L 97 - 10 5 mmol/L [facility] CO2 [Moles/Vol] 24 mmol/L 22 - 30 mmol/L [facility] Creatinine [Mass/Vol] 0.72 mg/dL 0.58 - 0.96 mg/dL [facility] Estimated Glomerular Filtration Rate 86 mL/min/1.73m >=60 mL/min/1.7 3m [facility] Glucose [Mass/Vol] 110 mg/dL High 74 - 99 mg/dL [facility] Potassium [Moles/Vol] 4.2 mmol/L 3.7 - 5.1 mmol/L [facility] Protein [Mass/Vol] 6.6 g/dL 6.3 - 8.0 g/dL [facility] Sodium [Moles/Vol] 131 mmol/L Low 136 - 144 mmol/L [facility] Urea nitrogen [Mass/Vol] 10 mg/dL 7 - 21 mg/dL [facility] UA DIP, URINE (POC)on 2022 BILIRUBIN UA (POCT) Negative Negative [facility] CLARITY UA (POCT) Cloudy [facility] COLOR UA (POCT) Yellow [facility] GLUCOSE UA (POCT) Negative Negative mg/dL [facility] Hemoglobin Ql (U) Large Abnormal Negative [facility] KETONE UA (POCT) Negative Negative mg/dL [facility] LEUKOCYTES UA (POCT) Large Abnormal Negative [facility] NITRITE UA (POCT) Positive Abnormal Negative [facility] PH UA (POCT) 7.0 4.5 - 8.0 [facility] Protein Ql (U) >=300 Abnormal Negative mg/dL [facility] SPECIFIC GRAVITY UA (POCT) 1.015 1.005 - 1.030 [facility] UROBILINOGEN UA (POCT) 0.2 E.U./dL Normal E.U./dL [facility] XR Chest PA and Lateralon IMPRESSION: No acute radiographic abnormality. Clam Treader: LIUDMILA Transcribe Date/Time: Jun 08 2023 10:26A Dictated by : JORGE LUIS ROLON MD This examination was interpreted and the report reviewed and electronically signed by: JORGE LUIS ROLON MD on Jun 08 2023 10:27AM [facility] DIVISION OF RADIOLOGY * * *Final Report* * * DATE OF EXAM: Jun 07 2023 12:54PM WOX [id number] - XR CHEST 2V FRONTAL/LAT / PROCEDURE REASON: Chest discomfort * * * * Physician Interpretation * * * * EXAMINATION: CHEST RADIOGRAPH (2 VIEW FRONTAL & LATERAL) CLINICAL HISTORY: Chest discomfort MQ: XC2_6 EXAM DATE/TIME: 06/07/2023 12:54 PM COMPARISON: No relevant prior studies available. RESULT: Lines, tubes, and devices: None. Lungs and pleura: No consolidation. No lung mass. No pleural effusion. No pneumothorax. Cardiomediastinal silhouette: Normal cardiomediastinal silhouette. Bones and soft tissues: Multilevel degenerative changes of the thoracic spine with intervertebral joint space narrowing and marginal spurring predominantly in the mid to lower thoracic spine. Orthopedic hardware/posterior pedicle screw noted within the upper lumbar region, incompletely visualized.. DIVISION OF RADIOLOGY Provider, [facility] - 06/08/2023 * * *Final Report* * * DATE OF EXAM: Jun 07 2023 12:54PM WOX 5291 - XR CHEST 2V FRONTAL/LAT / PROCEDURE REASON: Chest discomfort * * * * Physician Interpretation * * * * EXAMINATION: CHEST RADIOGRAPH (2 VIEW FRONTAL & LATERAL) CLINICAL HISTORY: Chest discomfort MQ: XC2_6 EXAM DATE/TIME: 06/07/2023 12:54 PM COMPARISON: No relevant prior studies available. RESULT: Lines, tubes, and devices: None. Lungs and pleura: No consolidation. No lung mass. No pleural effusion. No pneumothorax. Cardiomediastinal silhouette: Normal cardiomediastinal silhouette. Bones and soft tissues: Multilevel degenerative changes of the thoracic spine with intervertebral joint space narrowing and marginal spurring predominantly in the mid to lower thoracic spine. Orthopedic hardware/posterior pedicle screw noted within the upper lumbar region, incompletely visualized.. IMPRESSION IMPRESSION: No acute radiographic abnormality. Clam Treader: LIUDMILA Transcribe Date/Time: Jun 08 2023 10:26A Dictated by : JORGE LUIS ROLON MD This examination was interpreted and the report reviewed and electronically signed by: JORGE LUIS ROLON MD on Jun 08 2023 10:27AM EST [facility] XR Chest PA and LateralOrder ed By: [facility] Provider on 06-08-2023 [facility] XR Chest PA and Lateralon Radiology Study observation (narrative) [facility] CBC W Auto Differential pane l (Bld)on 06-06-2023 Basophils (Bld) [#/Vol] 0.09 10*3/uL <0.11 k/uL [facility] Basophils/100 WBC (Bld) 0.9 % [facility] Differential cell count method Nom (Bld) Auto [facility] Eosinophils (Bld) [#/Vol] 0.10 10*3/uL <0.46 k/uL [facility] Eosinophils/100 WBC (Bld) 1.0 % [facility] Erythrocyte distribution width (RBC) [Ratio] 14.0 % 11.5 - 15.0 % [facility] Hematocrit (Bld) [Volume fraction] 42.4 % 36.0 - 46.0 % [facility] Hemoglobin (Bld) [Mass/Vol] 13.6 g/dL 11.5 - 15.5 g/dL [facility] Immature granulocytes (Bld) [#/Vol] 0.08 10*3/uL <0.10 k/uL [facility] Immature granulocytes/100 WBC (Bld) 0.8 % [facility] Lymphocytes (Bld) [#/Vol] 1.93 10*3/uL 1.00 - 4.00 k/uL [facility] Lymphocytes/100 WBC (Bld) 19.0 % [facility] MCH (RBC) [Entitic mass] 30.7 pg 26.0 - 34.0 pg [facility] MCHC (RBC) [Mass/Vol] 32.1 g/dL 30.5 - 36.0 g/dL [facility] MCV (RBC) [Entitic vol] 95.7 fL 80.0 - 100.0 fL [facility] Monocytes (Bld) [#/Vol] 0.92 10*3/uL High <0.87 k/uL [facility] Monocytes/100 WBC (Bld) 9.1 % [facility] Neutrophils (Bld) [#/Vol] 7.04 10*3/uL 1.45 - 7.50 k/uL [facility] Neutrophils/100 WBC (Bld) 69.2 % [facility] Nucleated RBC (Bld) [#/Vol] <0.01 k/uL [facility] Nucleated RBC/100 WBC (Bld) [Ratio] 0.0 /100 WBC [facility] Platelet mean volume (Bld) [Entitic vol] 9.9 fL 9.0 - 12.7 fL [facility] Platelets (Bld) [#/Vol] 372 10*3/uL 150 - 400 k/uL [facility] RBC (Bld) [#/Vol] 4.43 10*6/uL 3.90 - 5.20 m/uL [facility] WBC (Bld) [#/Vol] 10.16 10*3/uL 3.70 - 11.00 k/uL [facility] CNTHERAPYon 06-06-2023 CNTHERAPY OT/PT/Speech Visit (AKPTB) ----- CHIARA CROFT ([id number]) 1945 [place] Date Time Provider Department 06/06/23 1:15 PM GEORGE TUCKER Date Time Provider Department Center 06/06/2023 1:15 PM [id number] Reason for Visit: PT Progress Note [1596] Primary Visit Diagnosis:Lumbar spondylosis [M47.816] Allergies As of Date: 06/06/2023 Noted Allergy Reaction CYMBALTA (DULOXETINE) 10/02/2021 14 - Other: See Comments Comments: Tremor FOSAMAX (ALENDRONATE SODIUM) 09/21/2019 5 - Intolerance Comments: Reflux SEPTRA (SULFAMETHOXAZOLE-TRIMETH O*03/23/2006 4 - Hives Comments: swelling and SOB SULFAMETHOXAZOLE 05/08/2019 4 - Hives TRAMADOL 10/02/2021 14 - Other: See Comments Comments: Tremor TRIMETHOPRIM 05/08/2019 4 - Hives BUPROPION 07/06/2021 14 - Other: See Comments Date Reviewed: 06/06/2023 Reviewed by: Zheng Tse LPN - Fully Assessed Prescriptions as of 06/06/2023 - acetaminophen (TYLENOL) 500 mg tablet Take 500 mg by mouth every 8 hours as needed. - albuterol HFA (VENTOLIN HFA) 90 mcg/actuation inhaler Inhale 2 Puffs as instructed every 4 hours as needed for wheezing/shortness of breath. - Cholecalciferol, Vitamin D3, 25 mcg (1,000 unit) cap Vitamin D - clopidogrel (PLAVIX) 75 mg tablet Take 1 tablet by mouth once daily. [facility] ID: [id number] [email or web address] - denosumab (PROLIA) 60 mg/mL syrg Inject 60 mg subcutaneously one time only. - famotidine (PEPCID) 40 mg tablet Take 1 tablet by mouth once daily as needed. - fluticasone-salmeterol (ADVAIR, WIXELA) 250-50 mcg/dose inhaler - levothyroxine (LEVOXYL) 88 mcg tablet Take 1 tablet by mouth once daily. Take on empty stomach. For Thyroid - lidocaine (SALONPAS) 4 % patch Apply as directed once daily. - losartan (COZAAR) 50 mg tablet TAKE 1 AND 1/2 (ONE AND ONE-HALF) TABLETS BY MOUTH ONCE DAILY - methocarbamol (ROBAXIN) 500 mg tablet Take 1 tablet by mouth two times a day as needed. - rosuvastatin (CRESTOR) 5 mg tablet Take 1 tablet by mouth once daily. - zinc sulfate 220 mg (50 mg zinc) capsule Facility-Administered Medications as of 06/06/2023 - denosumab 60 mg injection (PROLIA) ----- Normal [facility] Comprehensive metabolic 2000 panelon 06-06-2023 Albumin [Mass/Vol] 4.4 g/dL 3.9 - 4.9 g/dL [facility] ALP [Catalytic activity/Vol] 53 U/L 34 - 123 U/L [facility] ALT [Catalytic activity/Vol] 12 U/L 7 - 38 U/L [facility] Anion gap [Moles/Vol] 11 mmol/L 9 - 18 mmol/L [facility] AST [Catalytic activity/Vol] 19 U/L 13 - 35 U/L [facility] Bilirubin [Mass/Vol] 0.3 mg/dL 0.2 - 1 .3 mg/dL [facility] Calcium [Mass/Vol] 9.9 mg/dL 8.5 - 10. 2 mg/dL [facility] Chloride [Moles/Vol] 102 mmol/L 97 - 10 5 mmol/L [facility] CO2 [Moles/Vol] 25 mmol/L 22 - 30 mmol/L [facility] Creatinine [Mass/Vol] 0.66 mg/dL 0.58 - 0.96 mg/dL [facility] Estimated Glomerular Filtration Rate 90 mL/min/1.73m >=60 mL/min/1.7 3m [facility] Glucose [Mass/Vol] 81 mg/dL 74 - 99 mg/dL [facility] Potassium [Moles/Vol] 5.0 mmol/L 3.7 - 5.1 mmol/L [facility] Protein [Mass/Vol] 6.7 g/dL 6.3 - 8.0 g/dL [facility] Sodium [Moles/Vol] 138 mmol/L 136 - 144 mmol/L [facility] Urea nitrogen [Mass/Vol] 12 mg/dL 7 - 21 mg/dL [facility] NT PRO BNPon 06-06-2023 Natriuretic peptide.B prohormone N-Terminal [Mass/Vol] 61 pg/mL <450 pg/mL [facility] CNTHERAPYon 05-18-2023 CNTHERAPY OT/PT/Speech Visit (AKPTB) ----- CHIARA [id number]) 1945 [place] Date Time Provider Department 05/18/23 12:30 PM GARRETT GEORGE QUINN Date Time Provider Department Center 05/18/2023 12:30 PM [id number] Reason for Visit: Physical Therapy [503] Primary Visit Diagnosis:Lumbar spondylosis [M47.816] Allergies As of Date: 05/18/2023 Noted Allergy Reaction CYMBALTA (DULOXETINE) 10/02/2021 14 - Other: See Comments Comments: Tremor FOSAMAX (ALENDRONATE SODIUM) 09/21/2019 5 - Intolerance Comments: Reflux SEPTRA (SULFAMETHOXAZOLE-TRIMETH O*03/23/2006 4 - Hives Comments: swelling and SOB SULFAMETHOXAZOLE 05/08/2019 4 - Hives TRAMADOL 10/02/2021 14 - Other: See Comments Comments: Tremor TRIMETHOPRIM 05/08/2019 4 - Hives BUPROPION 07/06/2021 14 - Other: See Comments Date Reviewed: 03/04/2023 Reviewed by: Becca Morse, ERIBERTO - Fully Assessed Prescriptions as of 05/18/2023 - losartan (COZAAR) 50 mg tablet TAKE 1 AND 1/2 (ONE AND ONE-HALF) TABLETS BY MOUTH ONCE DAILY - levothyroxine (LEVOXYL) 88 mcg tablet Take 1 tablet by mouth once daily. Take on empty stomach. For Thyroid - zinc sulfate 220 mg (50 mg zinc) capsule - famotidine (PEPCID) 40 mg tablet Take 1 tablet by mouth once daily as needed. - fluticasone-salmeterol (ADVAIR, WIXELA) 250-50 mcg/dose inhaler - lansoprazole (PREVACID) 15 mg capsule Take 1 capsule by mouth once daily. - rosuvastatin (CRESTOR) 5 mg tablet Take 1 tablet by mouth once daily. - clopidogrel (PLAVIX) 75 mg tablet Take 1 tablet by mouth once daily. [facility] ID: [id number] [email or web address] - albuterol HFA (VENTOLIN HFA) 90 mcg/actuation inhaler Inhale 2 Puffs as instructed every 4 hours as needed for wheezing/shortness of breath. - lidocaine (SALONPAS) 4 % patch Apply as directed once daily. - denosumab (PROLIA) 60 mg/mL syrg Inject 60 mg subcutaneously one time only. - Cholecalciferol, Vitamin D3, 25 mcg (1,000 unit) cap Vitamin D - acetaminophen (TYLENOL) 500 mg tablet Take 500 mg by mouth every 8 hours as needed. - CALCIUM CARBONATE (CALCIUM 500 ORAL) Take by mouth. Facility-Administered Medications as of 05/18/2023 - denosumab 60 mg injection (PROLIA) ----- Normal [facility] CNTHERAPYon 05-05-2023 CNTHERAPY OT/PT/Speech Visit (KAI) ----- CHIARA CROFT ([id number]) 1945 F [place] Date Time Provider Department 05/05/23 9:15 AM GEORGE TUCKER Date Time Provider Department Center 05/05/2023 9:15 AM [id number] TUCKER [facility] Reason for Visit: PT Progress Note [1596] Primary Visit Diagnosis:Lumbar spondylosis [M47.816] Allergies As of Date: 05/05/2023 Noted Allergy Reaction CYMBALTA (DULOXETINE) 10/02/2021 14 - Other: See Comments Comments: Tremor FOSAMAX (ALENDRONATE SODIUM) 09/21/2019 5 - Intolerance Comments: Reflux SEPTRA (SULFAMETHOXAZOLE-TRIMETH O*03/23/2006 4 - Hives Comments: swelling and SOB SULFAMETHOXAZOLE 05/08/2019 4 - Hives TRAMADOL 10/02/2021 14 - Other: See Comments Comments: Tremor TRIMETHOPRIM 05/08/2019 4 - Hives BUPROPION 07/06/2021 14 - Other: See Comments Date Reviewed: 03/04/2023 Reviewed by: Becca Morse RN - Fully Assessed Prescriptions as of 05/05/2023 - levothyroxine (LEVOXYL) 88 mcg tablet Take 1 tablet by mouth once daily. Take on empty stomach. For Thyroid - zinc sulfate 220 mg (50 mg zinc) capsule - famotidine (PEPCID) 40 mg tablet Take 1 tablet by mouth once daily as needed. - fluticasone-salmeterol (ADVAIR, WIXELA) 250-50 mcg/dose inhaler - lansoprazole (PREVACID) 15 mg capsule Take 1 capsule by mouth once daily. - losartan (COZAAR) 50 mg tablet TAKE 1 AND 1/2 (ONE AND ONE-HALF) TABLETS BY MOUTH ONCE DAILY - rosuvastatin (CRESTOR) 5 mg tablet Take 1 tablet by mouth once daily. - clopidogrel (PLAVIX) 75 mg tablet Take 1 tablet by mouth once daily. [facility] ID: [id number] [email or web address] - albuterol HFA (VENTOLIN HFA) 90 mcg/actuation inhaler Inhale 2 Puffs as instructed every 4 hours as needed for wheezing/shortness of breath. - lidocaine (SALONPAS) 4 % patch Apply as directed once daily. - denosumab (PROLIA) 60 mg/mL syrg Inject 60 mg subcutaneously one time only. - Cholecalciferol, Vitamin D3, 25 mcg (1,000 unit) cap Vitamin D - acetaminophen (TYLENOL) 500 mg tablet Take 500 mg by mouth every 8 hours as needed. - CALCIUM CARBONATE (CALCIUM 500 ORAL) Take by mouth. Facility-Administered Medications as of 05/05/2023 - denosumab 60 mg injection (PROLIA) [facility]/PT/Speech Visit (AKPTB) ----- CHIARA CROFT ([id number]) 1945 F [place] Date Time Provider Department 04/21/23 8:30 AM GEORGE TUCKER AKPTB During your visit today, we recorded the following information about you: George Tucker PT, DPT 04/21/2023 11:12 AM Signed Episode Visit Count: 7 Therapist That Will Accept/Oversee The Plan Of Care: Garrett Start of Care Date: 01/10/23 Onset Date: 01/11/16 Plan of Care Certification Date: 03/17/23 Next Certification Due Date: 04/28/23 Patient Identified by Name and Date of : Yes REHABILITATION AND SPORTS THERAPY PHYSICAL THERAPY TREATMENT NOTE ASSESSMENT: Chiara Enriqueta tolerated the session with decreased symptoms. She demonstrated improvements in pain level with discussion on low back muscle guarding reduction and activities to reduce guarding. The patient will continue to benefit from ongoing skilled physical therapy to progress toward set goals. PLAN FOR NEXT VISIT: reassessment. dry needle SUBJECTIVE: Pt reports her pain has been up and down. She was in bed all Tuesday because her pain level continued to rise throughout the day. Pain: OBJECTIVE MEASURES WITH LEVEL OF FUNCTION: TREATMENT: Therapeutic Exercise: 1: prone alt hip ext 2: supine october with focus on low back relaxation 3: diaphragmatic breathing in supine 4: discussed vibration on legs t reduce back guarding Skilled Intervention: Patient was educated in proper exercise technique and purpose for exercises. Skilled judgment was provided in selection of appropriate interventions. Manual Therapy: 1: dry needle Skilled Intervention: Manual skills to improve joint mobility, ROM, and decrease pain. Utilized anatomy knowledge of the therapist, and assessment of patient's response to intervention. Dry needling to following Trigger points: lumbar and thoracic paraspinals Needle length: 30mm 1.2 in, 40mm 1.5 in , and 50mm 2.0 in . [place] used 12, needles removed 12. Dry needling technique used: Basic needling and Deep needling. Patient education on purpose, precautions, safety, risks, and other treatment options regarding dry needling. Verbal consent received. Billing Therapeutic Exercise Treatment Minutes: 30 Manual TherapyTreatment Minutes: 15 Total Treatment Time Minutes (timed/untimed): 45 Session Start Time : 829 Session Stop Time : 919 GEORGE TUCKER PT, DPT Referring Provider: LARS ALCANTAR [[id number]] Allergies As of Date: 04/21/2023 Noted Allergy Reaction CYMBALTA (DULOXETINE) 10/02/2021 14 - Other: See Comments Comments: Tremor FOSAMAX (ALENDRONATE SODIUM) 09/21/2019 5 - Intolerance Comments: Reflux SEPTRA (SULFAMETHOXAZOLE-TRIMETH O*03/23/2006 4 - Hives Comments: swelling and SOB SULFAMETHOXAZOLE 05/08/2019 4 - Hives TRAMADOL 10/02/2021 14 - Other: See Comments Comments: Tremor TRIMETHOPRIM 05/08/2019 4 - Hives BUPROPION 07/06/2021 14 - Other: See Comments Date Reviewed: 03/04/2023 Reviewed by: Becca Morse RN - Fully Assessed Reason for Visit: Physical Therapy [503] Primary Visit Diagnosis:Lumbar spondylosis [M47.816] Prescriptions as of 04/21/2023 - HYDROcodone-acetaminophen (NORCO) 5-325 mg per tablet Take 1 tablet by mouth every 6 hours as needed for pain for up to 5 days. - levothyroxine (LEVOXYL) 88 mcg tablet Take 1 tablet by mouth once daily. Take on empty stomach. For Thyroid - zinc sulfate 220 mg (50 mg zinc) capsule - famotidine (PEPCID) 40 mg tablet Take 1 tablet by mouth once daily as needed. - fluticasone-salmeterol (ADVAIR, WIXELA) 250-50 mcg/dose inhaler - lansoprazole (PREVACID) 15 mg capsule Take 1 capsule by mouth once daily. - losartan (COZAAR) 50 mg tablet TAKE 1 AND 1/2 (ONE AND ONE-HALF) TABLETS BY MOUTH ONCE DAILY - rosuvastatin (CRESTOR) 5 mg tablet Take 1 tablet by mouth once daily. - clopidogrel (PLAVIX) 75 mg tablet Take 1 tablet by mouth once daily. [facility] ID: [id number] [email or web address] - albuterol HFA (VENTOLIN HFA) 90 mcg/actuation inhaler Inhale 2 Puffs as instructed every 4 hours as needed for wheezing/shortness of breath. - lidocaine (SALONPAS) 4 % patch Apply as directed once daily. - denosumab (PROLIA) 60 mg/mL syrg Inject 60 mg subcutaneously one time only. - Cholecalciferol, Vitamin D3, 25 mcg (1,000 unit) cap Vitamin D - acetaminophen (TYLENOL) 500 mg tablet Take 500 mg by mouth every 8 hours as needed. - CALCIUM CARBONATE (CALCIUM 500 ORAL) Take by mouth. Facility-Administered Medications as of 04/21/2023 - denosumab 60 mg injection (PROLIA) Problem List As Of Date 04/21/2023 Noted Resolved Mild persistent asthma without complication [J4*09/01/2016 Stroke (HCC) [I63.9] 09/01/2016 GERD (gastroesophageal reflux disease) [K21.9] 09/01/2016 Platelet inhibition due to Plavix [Z79.02] 09/01/2016 Hyperthyroidism [E05.90] 09/01/2016 RUQ abdominal pain [R10. (more content not included)... Normal [facility] CNTHERAPYon 03-24-2023 CNTHERAPY OT/PT/Speech Visit (AKPTB) ----- CHIARA CROFT ([id number]) 1945 F [place] Date Time Provider Department 03/24/23 9:15 AM GEORGE TUCKER Date Time Provider Department Center 03/24/2023 9:15 AM [id number] TUCKER [facility] Reason for Visit: Physical Therapy [503] Primary Visit Diagnosis:Lumbar spondylosis [M47.816] Allergies As of Date: 03/24/2023 Noted Allergy Reaction CYMBALTA (DULOXETINE) 10/02/2021 14 - Other: See Comments Comments: Tremor FOSAMAX (ALENDRONATE SODIUM) 09/21/2019 5 - Intolerance Comments: Reflux SEPTRA (SULFAMETHOXAZOLE-TRIMETH O*03/23/2006 4 - Hives Comments: swelling and SOB SULFAMETHOXAZOLE 05/08/2019 4 - Hives TRAMADOL 10/02/2021 14 - Other: See Comments Comments: Tremor TRIMETHOPRIM 05/08/2019 4 - Hives BUPROPION 07/06/2021 14 - Other: See Comments Date Reviewed: 03/04/2023 Reviewed by: Becca Morse RN - Fully Assessed Prescriptions as of 03/24/2023 - levothyroxine (LEVOXYL) 88 mcg tablet Take 1 tablet by mouth once daily. Take on empty stomach. For Thyroid - zinc sulfate 220 mg (50 mg zinc) capsule - famotidine (PEPCID) 40 mg tablet Take 1 tablet by mouth once daily as needed. - fluticasone-salmeterol (ADVAIR, WIXELA) 250-50 mcg/dose inhaler - lansoprazole (PREVACID) 15 mg capsule Take 1 capsule by mouth once daily. - losartan (COZAAR) 50 mg tablet TAKE 1 AND 1/2 (ONE AND ONE-HALF) TABLETS BY MOUTH ONCE DAILY - rosuvastatin (CRESTOR) 5 mg tablet Take 1 tablet by mouth once daily. - clopidogrel (PLAVIX) 75 mg tablet Take 1 tablet by mouth once daily. [facility] ID: [id number] [email or web address] - albuterol HFA (VENTOLIN HFA) 90 mcg/actuation inhaler Inhale 2 Puffs as instructed every 4 hours as needed for wheezing/shortness of breath. - lidocaine (SALONPAS) 4 % patch Apply as directed once daily. - denosumab (PROLIA) 60 mg/mL syrg Inject 60 mg subcutaneously one time only. - Cholecalciferol, Vitamin D3, 25 mcg (1,000 unit) cap Vitamin D - acetaminophen (TYLENOL) 500 mg tablet Take 500 mg by mouth every 8 hours as needed. - CALCIUM CARBONATE (CALCIUM 500 ORAL) Take by mouth. Facility-Administered Medications as of 03/24/2023 - denosumab 60 mg injection (PROLIA) ----- Normal [facility] CNTHERAPYon 03-17-2023 CNTHERAPY OT/PT/Speech Visit (AKPTB) ----- CHIARA CROFT ([id number]) 1945 F [place] Date Time Provider Department 03/17/23 8:30 AM GEORGE TUCKER Date Time Provider Department Center 03/17/2023 8:30 AM [id number] TUCKER [facility] Reason for Visit: PT Progress Note [1596] Primary Visit Diagnosis:Lumbar spondylosis [M47.816] Allergies As of Date: 03/17/2023 Noted Allergy Reaction CYMBALTA (DULOXETINE) 10/02/2021 14 - Other: See Comments Comments: Tremor FOSAMAX (ALENDRONATE SODIUM) 09/21/2019 5 - Intolerance Comments: Reflux SEPTRA (SULFAMETHOXAZOLE-TRIMETH O*03/23/2006 4 - Hives Comments: swelling and SOB SULFAMETHOXAZOLE 05/08/2019 4 - Hives TRAMADOL 10/02/2021 14 - Other: See Comments Comments: Tremor TRIMETHOPRIM 05/08/2019 4 - Hives BUPROPION 07/06/2021 14 - Other: See Comments Date Reviewed: 03/04/2023 Reviewed by: Becca Morse, RN - Fully Assessed Prescriptions as of 03/17/2023 - levothyroxine (LEVOXYL) 88 mcg tablet Take 1 tablet by mouth once daily. Take on empty stomach. For Thyroid - zinc sulfate 220 mg (50 mg zinc) capsule - famotidine (PEPCID) 40 mg tablet Take 1 tablet by mouth once daily as needed. - fluticasone-salmeterol (ADVAIR, WIXELA) 250-50 mcg/dose inhaler - lansoprazole (PREVACID) 15 mg capsule Take 1 capsule by mouth once daily. - losartan (COZAAR) 50 mg tablet TAKE 1 AND 1/2 (ONE AND ONE-HALF) TABLETS BY MOUTH ONCE DAILY - rosuvastatin (CRESTOR) 5 mg tablet Take 1 tablet by mouth once daily. - clopidogrel (PLAVIX) 75 mg tablet Take 1 tablet by mouth once daily. [facility] ID: [id number] [email or web address] - albuterol HFA (VENTOLIN HFA) 90 mcg/actuation inhaler Inhale 2 Puffs as instructed every 4 hours as needed for wheezing/shortness of breath. - lidocaine (SALONPAS) 4 % patch Apply as directed once daily. - denosumab (PROLIA) 60 mg/mL syrg Inject 60 mg subcutaneously one time only. - Cholecalciferol, Vitamin D3, 25 mcg (1,000 unit) cap Vitamin D - acetaminophen (TYLENOL) 500 mg tablet Take 500 mg by mouth every 8 hours as needed. - CALCIUM CARBONATE (CALCIUM 500 ORAL) Take by mouth. Facility-Administered Medications as of 03/17/2023 - denosumab 60 mg injection (PROLIA) ----- Normal [facility] No Panel Informationon 03-15 [facility] COLONOSCOPY DIAGNOSTICon [facility] CNTHERAPYon 02-21-2023 CNTHERAPY OT/PT/Speech Visit (AKPTB) ----- CHIARA CROFT ([id number]) 1945 [place] Date Time Provider Department 02/21/23 9:30 AM GEORGE TUCKER Date Time Provider Department Center 02/21/2023 9:30 AM [id number] TUCKER [facility] Reason for Visit: Physical Therapy [503] Primary Visit Diagnosis:Lumbar spondylosis [M47.816] Allergies As of Date: 02/21/2023 Noted Allergy Reaction CYMBALTA (DULOXETINE) 10/02/2021 14 - Other: See Comments Comments: Tremor FOSAMAX (ALENDRONATE SODIUM) 09/21/2019 5 - Intolerance Comments: Reflux SEPTRA (SULFAMETHOXAZOLE-TRIMETH O*03/23/2006 4 - Hives Comments: swelling and SOB SULFAMETHOXAZOLE 05/08/2019 4 - Hives TRAMADOL 10/02/2021 14 - Other: See Comments Comments: Tremor TRIMETHOPRIM 05/08/2019 4 - Hives BUPROPION 07/06/2021 14 - Other: See Comments Date Reviewed: 01/05/2023 Reviewed by: Tomás Ruggiero Ma - Fully Assessed Prescriptions as of 02/21/2023 - zinc sulfate 220 mg (50 mg zinc) capsule - famotidine (PEPCID) 40 mg tablet Take 1 tablet by mouth once daily as needed. - levothyroxine (LEVOXYL) 88 mcg tablet Take 1 tablet by mouth once daily. Take on empty stomach. For Thyroid - fluticasone-salmeterol (ADVAIR, WIXELA) 250-50 mcg/dose inhaler - lansoprazole (PREVACID) 15 mg capsule Take 1 capsule by mouth once daily. - losartan (COZAAR) 50 mg tablet TAKE 1 AND 1/2 (ONE AND ONE-HALF) TABLETS BY MOUTH ONCE DAILY - rosuvastatin (CRESTOR) 5 mg tablet Take 1 tablet by mouth once daily. - clopidogrel (PLAVIX) 75 mg tablet Take 1 tablet by mouth once daily. [facility] ID: [id number] [email or web address] - albuterol HFA (VENTOLIN HFA) 90 mcg/actuation inhaler Inhale 2 Puffs as instructed every 4 hours as needed for wheezing/shortness of breath. - lidocaine (SALONPAS) 4 % patch Apply as directed once daily. - denosumab (PROLIA) 60 mg/mL syrg Inject 60 mg subcutaneously one time only. - Cholecalciferol, Vitamin D3, 25 mcg (1,000 unit) cap Vitamin D - acetaminophen (TYLENOL) 500 mg tablet Take 500 mg by mouth every 8 hours as needed. - CALCIUM CARBONATE (CALCIUM 500 ORAL) Take by mouth. ----- Normal [facility] CNTHERAPYon 02-16-2023 CNTHERAPY OT/PT/Speech Visit (KAI) ----- CHIARA CROFT ([id number]) 1945 F [place] Date Time Provider Department 02/16/23 11:00 AM GEORGE TUCKER Date Time Provider Department Center 02/16/2023 11:00 AM [id number] TUCKER [facility] Reason for Visit: PT Progress Note [1596] Primary Visit Diagnosis:Lumbar spondylosis [M47.816] Allergies As of Date: 02/16/2023 Noted Allergy Reaction CYMBALTA (DULOXETINE) 10/02/2021 14 - Other: See Comments Comments: Tremor FOSAMAX (ALENDRONATE SODIUM) 09/21/2019 5 - Intolerance Comments: Reflux SEPTRA (SULFAMETHOXAZOLE-TRIMETH O*03/23/2006 4 - Hives Comments: swelling and SOB SULFAMETHOXAZOLE 05/08/2019 4 - Hives TRAMADOL 10/02/2021 14 - Other: See Comments Comments: Tremor TRIMETHOPRIM 05/08/2019 4 - Hives BUPROPION 07/06/2021 14 - Other: See Comments Date Reviewed: 01/05/2023 Reviewed by: Tomás Ruggiero Ma - Fully Assessed Prescriptions as of 02/16/2023 - zinc sulfate 220 mg (50 mg zinc) capsule - famotidine (PEPCID) 40 mg tablet Take 1 tablet by mouth once daily as needed. - levothyroxine (LEVOXYL) 88 mcg tablet Take 1 tablet by mouth once daily. Take on empty stomach. For Thyroid - fluticasone-salmeterol (ADVAIR, WIXELA) 250-50 mcg/dose inhaler - lansoprazole (PREVACID) 15 mg capsule Take 1 capsule by mouth once daily. - losartan (COZAAR) 50 mg tablet TAKE 1 AND 1/2 (ONE AND ONE-HALF) TABLETS BY MOUTH ONCE DAILY - rosuvastatin (CRESTOR) 5 mg tablet Take 1 tablet by mouth once daily. - clopidogrel (PLAVIX) 75 mg tablet Take 1 tablet by mouth once daily. [facility] ID: [id number] [email or web address] - albuterol HFA (VENTOLIN HFA) 90 mcg/actuation inhaler Inhale 2 Puffs as instructed every 4 hours as needed for wheezing/shortness of breath. - lidocaine (SALONPAS) 4 % patch Apply as directed once daily. - denosumab (PROLIA) 60 mg/mL syrg Inject 60 mg subcutaneously one time only. - Cholecalciferol, Vitamin D3, 25 mcg (1,000 unit) cap Vitamin D - acetaminophen (TYLENOL) 500 mg tablet Take 500 mg by mouth every 8 hours as needed. - CALCIUM CARBONATE (CALCIUM 500 ORAL) Take by mouth. ----- Normal [facility] CNTHERAPYon 2023 CNTHERAPY OT/PT/Speech Visit (AKPTB) ----- CHIARA CROFT ([id number]) 1945 [place] Date Time Provider Department 02/07/23 10:15 AM ABA MORA Date Time Provider Department Center 02/07/2023 10:15 AM [id number] MORA [facility] Reason for Visit: Physical Therapy [503] Primary Visit Diagnosis:Lumbar spondylosis [M47.816] Allergies As of Date: 02/07/2023 Noted Allergy Reaction CYMBALTA (DULOXETINE) 10/02/2021 14 - Other: See Comments Comments: Tremor FOSAMAX (ALENDRONATE SODIUM) 09/21/2019 5 - Intolerance Comments: Reflux SEPTRA (SULFAMETHOXAZOLE-TRIMETH O*03/23/2006 4 - Hives Comments: swelling and SOB SULFAMETHOXAZOLE 05/08/2019 4 - Hives TRAMADOL 10/02/2021 14 - Other: See Comments Comments: Tremor TRIMETHOPRIM 05/08/2019 4 - Hives BUPROPION 07/06/2021 14 - Other: See Comments Date Reviewed: 01/05/2023 Reviewed by: Tomás Ruggiero Ma - Fully Assessed Prescriptions as of 02/09/2023 - zinc sulfate 220 mg (50 mg zinc) capsule - famotidine (PEPCID) 40 mg tablet Take 1 tablet by mouth once daily as needed. - iv contrast (will be provided with radiology test) MRI LSP Inject, intravenously, once for 1 dose. No IV access, insert saline lock prior to the beginning of sedation, infusion, injection of imaging exam. Discontinue saline lock post exam. If Pt. has a central line or IVAD, may access for administration according to line specific nursing protocol. Once exam is complete flush line and de-access according to line specific nursing protocol in the MR contrast administration guidelines link. - levothyroxine (LEVOXYL) 88 mcg tablet Take 1 tablet by mouth once daily. Take on empty stomach. For Thyroid - fluticasone-salmeterol (ADVAIR, WIXELA) 250-50 mcg/dose inhaler - lansoprazole (PREVACID) 15 mg capsule Take 1 capsule by mouth once daily. - losartan (COZAAR) 50 mg tablet TAKE 1 AND 1/2 (ONE AND ONE-HALF) TABLETS BY MOUTH ONCE DAILY - rosuvastatin (CRESTOR) 5 mg tablet Take 1 tablet by mouth once daily. - clopidogrel (PLAVIX) 75 mg tablet Take 1 tablet by mouth once daily. [facility] ID: [id number] [email or web address] - albuterol HFA (VENTOLIN HFA) 90 mcg/actuation inhaler Inhale 2 Puffs as instructed every 4 hours as needed for wheezing/shortness of breath. - lidocaine (SALONPAS) 4 % patch Apply as directed once daily. - denosumab (PROLIA) 60 mg/mL syrg Inject 60 mg subcutaneously one time only. - Cholecalciferol, Vitamin D3, 25 mcg (1,000 unit) cap Vitamin D - acetaminophen (TYLENOL) 500 mg tablet Take 500 mg by mouth every 8 hours as needed. - CALCIUM CARBONATE (CALCIUM 500 ORAL) Take by mouth. ----- Normal [facility] CNTHERAPYon 01-10-2023 CNTHERAPY OT/PT/Speech Visit (AKPTB) ----- CHIARA CROFT ([id number]) 1945 [place] Date Time Provider Department 01/10/23 11:00 AM GEORGE TUCKERPTB Date Time Provider Department Center 01/10/2023 11:00 AM [id number] TUCKERKVNG [facility] Reason for Visit: PT Eval [747] Primary Visit Diagnosis:Physical deconditioning [R53.81] Other Visit Diagnosis:Lumbosacral radiculitis [M54.17] Allergies As of Date: 01/10/2023 Noted Allergy Reaction CYMBALTA (DULOXETINE) 10/02/2021 14 - Other: See Comments Comments: Tremor FOSAMAX (ALENDRONATE SODIUM) 09/21/2019 5 - Intolerance Comments: Reflux SEPTRA (SULFAMETHOXAZOLE-TRIMETH O*03/23/2006 4 - Hives Comments: swelling and SOB SULFAMETHOXAZOLE 05/08/2019 4 - Hives TRAMADOL 10/02/2021 14 - Other: See Comments Comments: Tremor TRIMETHOPRIM 05/08/2019 4 - Hives BUPROPION 07/06/2021 14 - Other: See Comments Date Reviewed: 01/05/2023 Reviewed by: Tomás Ruggiero Ma - Fully Assessed Prescriptions as of 01/10/2023 - zinc sulfate 220 mg (50 mg zinc) capsule - famotidine (PEPCID) 40 mg tablet Take 1 tablet by mouth once daily as needed. - iv contrast (will be provided with radiology test) MRI LSP Inject, intravenously, once for 1 dose. No IV access, insert saline lock prior to the beginning of sedation, infusion, injection of imaging exam. Discontinue saline lock post exam. If Pt. has a central line or IVAD, may access for administration according to line specific nursing protocol. Once exam is complete flush line and de-access according to line specific nursing protocol in the MR contrast administration guidelines link. - levothyroxine (LEVOXYL) 88 mcg tablet Take 1 tablet by mouth once daily. Take on empty stomach. For Thyroid - fluticasone-salmeterol (ADVAIR, WIXELA) 250-50 mcg/dose inhaler - lansoprazole (PREVACID) 15 mg capsule Take 1 capsule by mouth once daily. - losartan (COZAAR) 50 mg tablet TAKE 1 AND 1/2 (ONE AND ONE-HALF) TABLETS BY MOUTH ONCE DAILY - rosuvastatin (CRESTOR) 5 mg tablet Take 1 tablet by mouth once daily. - clopidogrel (PLAVIX) 75 mg tablet Take 1 tablet by mouth once daily. [facility] ID: [id number] [email or web address] - albuterol HFA (VENTOLIN HFA) 90 mcg/actuation inhaler Inhale 2 Puffs as instructed every 4 hours as needed for wheezing/shortness of breath. - lidocaine (SALONPAS) 4 % patch Apply as directed once daily. - denosumab (PROLIA) 60 mg/mL syrg Inject 60 mg subcutaneously one time only. - Cholecalciferol, Vitamin D3, 25 mcg (1,000 unit) cap Vitamin D - acetaminophen (TYLENOL) 500 mg tablet Take 500 mg by mouth every 8 hours as needed. - CALCIUM CARBONATE (CALCIUM 500 ORAL) Take by mouth. ----- Normal [facility] CNOVon 01-05-2023 CNOV Office Visit (AGOCMR ) ----- ENRIQUETACHIARA ([id number]) 1945 [place] [facility] Date Time Provider Department 01/05/23 8:15 AM LARS ALCANTARSiva During your visit today, we recorded the following information about you: Pulse Blood pressure Weight Height 67/minute 126/72 63.9 kg 1.6 m Lars Alcantar MD 01/05/2023 8:55 AM Signed Lars Alcantar M.D. ORTHOPEDIC SPINE FOLLOW UP NOTE Date of visit: January 05, 2023 Patient Name: Ms.Carol Croft Date of : 1945 Current Age: [age] year old Sex: female PCP: Angie Aguirre APRN.CNP Chief Complaint:Patient presents with: Established Patient HPI Ms.Carol Croft has a past medical history of asthma, HTN, HLD, osteoarthrosis, osteoporosis (takes Prolia) and CVA with left sided weakness. Patient was last seen in the office on 12/29/2022 and reported low back pain with radiation to bilateral gluteal region, right > left, with an achy sensation to mid bilateral anterior thighs. Pain worsened with twisting, walking and any activity. Pain in her right gluteal region was most bothersome. She had participated in multiple sessions of physical therapy and follows with [facility], scheduled for right piriformis injection on 01/04/2023. Additionally, Dr. Casillas had discussed placing a spinal cord stimulator. I recommended for patient to follow-up after obtaining MRI of the lumbar spine with and without contrast to characterize possible nerve root compression and CT of the lumbar spine to evaluate her previous fusion for possible pseudoarthrosis at L4-L5, prompting visit today. She reports no relief from right piriformis injection on 01/04/2023 with Pain Management. Her symptoms are consistent with last office visit. Pain in her right gluteal region is most bothersome. Full symptomology and conservative treatment outlined below. She presents to the office for image review, evaluation and plan of care. Pain: Low back Radiation: Bilateral gluteal region, right >left, Achy feeling to bilateral anterior thighs Duration: Chronic Paresthesia: Right great toe, 2nd and 3rd digit, plantar aspect of right foot Weakness: Bilateral lower extremities Dexterity: Denies Imbalance: Denies B/B dysfcn: Denies PREVIOUS CONSERVATIVE TREATMENT: 1) Medication: Tylenol, Salonpas, Robaxin 2) Physical therapy: x12 sessions from August 2022- present 3) Pain Management: follows with [facility] 4) Injections: -Bilateral L5-S1 lumbar RFA on 09/28/2022-95% improvement for 6 weeks -Right piriformis injection on 01/04/2023 with Pain Management PREVIOUS SPINE SURGERY: -L3-L5 decompression and posterior fusion in 2017 Surgical Risk Factors: Smoking status: Former Anticoagulants/antiplatel ets: Plavix Diabetic: No BMI: 24.62 Osteoporosis- on Prolia for 6 years, next 03/09/2023 PAIN EVALUATION 01/03/2023 1926 Pain Level: 6 Pain Location: Back-Lower Description: Aching;Dull;Sharp;Shootin g;Stabbing Duration Amount of Time: 24 Duration Units: Months Frequency: Continuous Intervention/Comfort measure: Medication;Reposition;Dis tractions;Heat;Pillow support ACTIVE PROBLEM LIST Mild Persistent Asthma Without Complication Stroke (Hcc) Gerd (Gastroesophageal Reflux Disease) Platelet Inhibition Due to Plavix Hyperthyroidism Postlaminectomy Syndrome Chronic Bilateral Low Back Pain Without Sciatica Chronic Si Joint Pain Primary Hypertension Hyperlipidemia Post-Surgical Hypothyroidism Other cerebral infarction (HCC) Generalized Abdominal Pain Special Screening Examination for Viral Disease Lumbar Spondylosis Lumbosacral Radiculitis Hoarse Dizziness Spinal Stenosis of Lumbar Region With Neurogenic Claudication Piriformis Syndrome of Right Side PAST MEDICAL HISTORY Diagnosis Date Abdominal pain Degenerative disc disease Depression Disorder of bone and cartilage, unspecified HTN (hypertension) Hypothyroid Intrinsic asthma Mixed hyperlipidemia Hyperlipidemia Osteoarthrosis, unspecified whether generalized or localized, other specified sites PMH - PAST MEDICAL HISTORY OF CVA with weakness left side PMH - PAST MEDICAL HISTORY OF 2000 left cervical radiculopathy PMH - PAST MEDICAL HISTORY OF 2003 right rib fracture PMH - PAST MEDICAL HISTORY OF 2005 right shoulder impingement syndrome Spinal stenosis Stroke (HCC) 2005 Unspecified hypothyroidism PAST SURGICAL HISTORY Procedure Laterality Date APPENDECTOMY 1960 BACK SURGERY HX 2017 L3-5 Decompression and Fusion CATARACT EXTRACTION HX Bilateral COLONOSCOPY N/A 09/15/2016 MAC EGD W/O [facility] SPEC VARICIES INJ 09/17/2016 EGD W/O [facility] SPEC VARICIES INJ 11/15/2022 EPIDURAL SITE SPECIFY lumbar spine PAST SURGICAL HISTORY OF 1976 thyroidectomy for toxic goiter TONSILLECTOMY PRIMARY/SECONDARY Tonsillectomy FAMILY HISTORY Problem R (more content not included)... Normal [facility] Yudi 01-05-2023 [facility] Telephone (AGOR) ----- CHIARA CROFT ([id number]) 1945 [place]* Date Time Provider Department 01/05/23 LARS ALCANTAR During your visit today, we recorded the following information about you: Tomás Ruggiero Ma 01/05/2023 2:55 PM Signed Referral placed for Physical therapy in the [facility] Internal Referral Portal. Confirmation # [id number] Tomás Ruggiero Ma Allergies As of Date: 01/05/2023 Noted Allergy Reaction CYMBALTA (DULOXETINE) 10/02/2021 14 - Other: See Comments Comments: Tremor FOSAMAX (ALENDRONATE SODIUM) 09/21/2019 5 - Intolerance Comments: Reflux SEPTRA (SULFAMETHOXAZOLE-TRIMETH O*03/23/2006 4 - Hives Comments: swelling and SOB SULFAMETHOXAZOLE 05/08/2019 4 - Hives TRAMADOL 10/02/2021 14 - Other: See Comments Comments: Tremor TRIMETHOPRIM 05/08/2019 4 - Hives BUPROPION 07/06/2021 14 - Other: See Comments Date Reviewed: 01/05/2023 Reviewed by: Tomás Ruggiero Ma - Fully Assessed Reason for Visit: Internal Referrals/resources [908] Prescriptions as of 01/05/2023 - zinc sulfate 220 mg (50 mg zinc) capsule - famotidine (PEPCID) 40 mg tablet Take 1 tablet by mouth once daily as needed. - iv contrast (will be provided with radiology test) MRI LSP Inject, intravenously, once for 1 dose. No IV access, insert saline lock prior to the beginning of sedation, infusion, injection of imaging exam. Discontinue saline lock post exam. If Pt. has a central line or IVAD, may access for administration according to line specific nursing protocol. Once exam is complete flush line and de-access according to line specific nursing protocol in the MR contrast administration guidelines link. - levothyroxine (LEVOXYL) 88 mcg tablet Take 1 tablet by mouth once daily. Take on empty stomach. For Thyroid - fluticasone-salmeterol (ADVAIR, WIXELA) 250-50 mcg/dose inhaler - lansoprazole (PREVACID) 15 mg capsule Take 1 capsule by mouth once daily. - losartan (COZAAR) 50 mg tablet TAKE 1 AND 1/2 (ONE AND ONE-HALF) TABLETS BY MOUTH ONCE DAILY - rosuvastatin (CRESTOR) 5 mg tablet Take 1 tablet by mouth once daily. - clopidogrel (PLAVIX) 75 mg tablet Take 1 tablet by mouth once daily. [facility] ID: [id number] [email or web address] - albuterol HFA (VENTOLIN HFA) 90 mcg/actuation inhaler Inhale 2 Puffs as instructed every 4 hours as needed for wheezing/shortness of breath. - lidocaine (SALONPAS) 4 % patch Apply as directed once daily. - denosumab (PROLIA) 60 mg/mL syrg Inject 60 mg subcutaneously one time only. - Cholecalciferol, Vitamin D3, 25 mcg (1,000 unit) cap Vitamin D - acetaminophen (TYLENOL) 500 mg tablet Take 500 mg by mouth every 8 hours as needed. - CALCIUM CARBONATE (CALCIUM 500 ORAL) Take by mouth. Problem List As Of Date 01/05/2023 Noted Resolved Mild persistent asthma without complication [J4*09/01/2016 Stroke (HCC) [I63.9] 09/01/2016 GERD (gastroesophageal reflux disease) [K21.9] 09/01/2016 Platelet inhibition due to Plavix [Z79.02] 09/01/2016 Hyperthyroidism [E05.90] 09/01/2016 RUQ abdominal pain [R10.11] 09/15/2016 09/15/2016 Nausea [R11.0] 09/15/2016 09/15/2016 Abnormal LFTs [R79.89] 09/15/2016 09/15/2016 Postlaminectomy syndrome [M96.1] 10/07/2021 Chronic bilateral low back pain without sciatic*10/07/2021 Chronic SI joint pain [M53.3, G89.29] 10/07/2021 Primary hypertension [I10] 10/23/2021 Hyperlipidemia [E78.5] 10/23/2021 Post-surgical hypothyroidism [E89.0] 10/23/2021 Other cerebral infarction (HCC) [I63.89] 10/23/2021 Generalized abdominal pain [R10.84] 10/23/2021 Special screening examination for viral disease*10/23/2021 Lumbar spondylosis [M47.816] 01/15/2022 Lumbosacral radiculitis [M54.17] 09/03/2022 Hoarse [R49.0] 09/08/2022 Dizziness [R42] 11/29/2022 Spinal stenosis of lumbar region with neurogeni*12/29/2022 Piriformis syndrome of right side [G57.01] 01/04/2023 Encounter Status:Closed by TOMÁS RUGGIERO MA [facility]AGCLM[facility] ----- CHIARA CROFT ([id number]) 1945 [place]* Date Time Provider Department 01/03/23 CARLITA DE SOUZA NEAGCLM During your visit today, we recorded the following information about you: Carlita De Souza APRN.WEIGHT ANALYST 01/03/2023 9:33 AM Signed Contacted patient and discussed incidental finding noted on MRI of lumbar spine. Patient is currently following with gastroenterology, last office visit on 12/30/2022 with Delia Mckeon PA-C, recommended patient contact gastroenterology office for further evaluation and plan of care per their recommendations. Patient verbalized understanding was appreciative call. In regards to the lumbar spine, patient is to keep scheduled follow-up appointment with Dr. Alcantar on 01/05/2023 further review imaging and plan of care. MRI lumbar spine completed on 12/31/2022: IMPRESSION: Postoperative and spondylotic changes, as detailed. No abnormal enhancement. Apparent confluent focus within the proximal ascending colon on the localizer images which may reflect bowel contents; mass lesion not excluded. Recommend gastroenterology consult for further evaluation. Anatomic Lumbar Variant: None. L4-5 is considered the level of the iliac crest and assume there are 5 lumbar-type vertebrae. Carlita De Souza APRN-WEIGHT ANALYST [facility] Allergies As of Date: 01/03/2023 Noted Allergy Reaction CYMBALTA (DULOXETINE) 10/02/2021 14 - Other: See Comments Comments: Tremor FOSAMAX (ALENDRONATE SODIUM) 09/21/2019 5 - Intolerance Comments: Reflux SEPTRA (SULFAMETHOXAZOLE-TRIMETH O*03/23/2006 4 - Hives Comments: swelling and SOB SULFAMETHOXAZOLE 05/08/2019 4 - Hives TRAMADOL 10/02/2021 14 - Other: See Comments Comments: Tremor TRIMETHOPRIM 05/08/2019 4 - Hives BUPROPION 07/06/2021 14 - Other: See Comments Date Reviewed: 12/30/2022 Reviewed by: Delia Mckeon PA-C - Fully Assessed Reason for Visit: Results [95] Prescriptions as of 01/03/2023 - zinc sulfate 220 mg (50 mg zinc) capsule - famotidine (PEPCID) 40 mg tablet Take 1 tablet by mouth once daily as needed. - iv contrast (will be provided with radiology test) MRI LSP Inject, intravenously, once for 1 dose. No IV access, insert saline lock prior to the beginning of sedation, infusion, injection of imaging exam. Discontinue saline lock post exam. If Pt. has a central line or IVAD, may access for administration according to line specific nursing protocol. Once exam is complete flush line and de-access according to line specific nursing protocol in the MR contrast administration guidelines link. - levothyroxine (LEVOXYL) 88 mcg tablet Take 1 tablet by mouth once daily. Take on empty stomach. For Thyroid - fluticasone-salmeterol (ADVAIR, WIXELA) 250-50 mcg/dose inhaler - lansoprazole (PREVACID) 15 mg capsule Take 1 capsule by mouth once daily. - losartan (COZAAR) 50 mg tablet TAKE 1 AND 1/2 (ONE AND ONE-HALF) TABLETS BY MOUTH ONCE DAILY - rosuvastatin (CRESTOR) 5 mg tablet Take 1 tablet by mouth once daily. - clopidogrel (PLAVIX) 75 mg tablet Take 1 tablet by mouth once daily. [facility] ID: [id number] [email or web address] - albuterol HFA (VENTOLIN HFA) 90 mcg/actuation inhaler Inhale 2 Puffs as instructed every 4 hours as needed for wheezing/shortness of breath. - lidocaine (SALONPAS) 4 % patch Apply as directed once daily. - denosumab (PROLIA) 60 mg/mL syrg Inject 60 mg subcutaneously one time only. - Cholecalciferol, Vitamin D3, 25 mcg (1,000 unit) cap Vitamin D - acetaminophen (TYLENOL) 500 mg tablet Take 500 mg by mouth every 8 hours as needed. - CALCIUM CARBONATE (CALCIUM 500 ORAL) Take by mouth. Problem List As Of Date 01/03/2023 Noted Resolved Mild persistent asthma without complication [J4*09/01/2016 Stroke (HCC) [I63.9] 09/01/2016 GERD (gastroesophageal reflux disease) [K21.9] 09/01/2016 Platelet inhibition due to Plavix [Z79.02] 09/01/2016 Hyperthyroidism [E05.90] 09/01/2016 RUQ abdominal pain [R10.11] 09/15/2016 09/15/2016 Nausea [R11.0] 09/15/2016 09/15/2016 Abnormal LFTs [R79.89] 09/15/2016 09/15/2016 Postlaminectomy syndrome [M96.1] 10/07/2021 Chronic bilateral low back pain without sciatic*10/07/2021 Chronic SI joint pain [M53.3, G89.29] 10/07/2021 Primary hypertension [I10] 10/23/2021 Hyperlipidemia [E78.5] 10/23/2021 Post-surgical hypothyroidism [E89.0] 10/23/2021 Other cerebral infarction (HCC) [I63.89] 10/23/2021 Generalized abdominal pain [R10.84] 10/23/2021 Special screening examination for viral disease*10/23/2021 Lumbar spondylosis [M47.816] 01/15/2022 Lumbosacral radiculitis [M54.17] 09/03/2022 Hoarse [R49.0] 09/08/2022 Dizziness [R42] 11/29/2022 Spinal stenosis of lumbar region with neurogeni*12/29/2022 Encounter Status:Closed by CARLITA DE SOUZA on 01/03/[address] [facility] [address] LUMBAR SPINE WO IVCONon 0 12-31-2022 [facility] MRI LUMBAR SPINE WO/W IVCONo n 12-31-2022 [facility] CNOVon 12-29-2022 CNOV Office Visit (AGOCMR ) ----- CHIARA CROFT ([id number]) 1945 [place]* Date Time Provider Department 12/29/22 1:30 PM LARS ALCANTARSiva During your visit today, we recorded the following information about you: Pulse Blood pressure Weight Height 78/minute 120/67 65 kg 1.6 m Lars Alcantar MD 12/29/2022 2:52 PM Signed Lars Alcantar M.D. ORTHOPEDIC SPINE CONSULT NOTE Date of visit: December 29, 2022 Patient Name: Ms.Carol Croft Date of : 1945 Current Age: [age] year old Sex: female PCP: Angie Aguirre APRN.SAURABH Chief Complaint:Patient presents with: New Patient HPI Ms.Carol Croft has a past medical history of asthma, HTN, HLD, osteoarthrosis, osteoporosis (takes Prolia) and CVA with left sided weakness. Patient presents to the office today as a new patient with radiographic imaging for evaluation of lumbar spine. The patient is referred by Angie Aguirre APRN. SAURABH, PCP, for orthopedic spine evaluation. She reported low back pain with radiation to right hip without paresthesia. She had participated in multiple sessions of physical therapy and follows with [facility], scheduled for right piriformis injection on 01/04/2023. She wished to consider a Spinal Cord Stimulator with Dr. Casillas and was recommended to follow-up with [facility] for further evaluation, prompting visit today. She reports low back pain with radiation to bilateral gluteal region, right > left, with an achy sensation to mid bilateral anterior thighs. Pain worsens with twisting, walking and any activity. Pain in her right gluteal region is most bothersome. Full symptomology and conservative treatment outlined below. She presents to the office for image review, evaluation and plan of care. Pain: Low back Radiation: Bilateral gluteal region, right >left, Achy feeling to bilateral anterior thighs Duration: Chronic Paresthesia: Denies Weakness: Bilateral lower extremities Dexterity: Denies Imbalance: Denies B/B dysfcn: Denies PREVIOUS CONSERVATIVE TREATMENT: 1) Medication: Tylenol, Salonpas, Robaxin 2) Physical therapy: x12 sessions from August 2022- present 3) Pain Management: follows with [facility] 4) Injections: Bilateral L5-S1 lumbar RFA on 09-28-2022-95% improvement for 6 weeks PREVIOUS SPINE SURGERY: -L3-L5 decompression and posterior fusion in 2017 Surgical Risk Factors: Smoking status: Former Anticoagulants/antiplatel ets: Plavix Diabetic: No BMI: 24.27 Osteoporosis- on Prolia for 6 years, next 03/09/2023 PAIN EVALUATION 11/19/2022195812/22/2022 1219 Pain Level: 5 6 Pain Location: Back-Lower Back-Lower Description: Aching;Sharp;Sore;Stabbin g/Not Incision;Tightness Aching;Cramping;Dull;Pres sure;Sharp;Sore;Stabbing; Stiffness;Tightness Duration Amount of Time: 5 9 Duration Units: Months Months Frequency: Continuous Intermittent Intervention/Comfort measure: Reposition;Exercise;Heat; Pillow support Exercise;Heat;Pillow support;Positioning Comments: -- Have had pain in different locations in low back since 2017 ACTIVE PROBLEM LIST Mild Persistent Asthma Without Complication Stroke (Hcc) Gerd (Gastroesophageal Reflux Disease) Platelet Inhibition Due to Plavix Hyperthyroidism Postlaminectomy Syndrome Chronic Bilateral Low Back Pain Without Sciatica Chronic Si Joint Pain Primary Hypertension Hyperlipidemia Post-Surgical Hypothyroidism Other cerebral infarction (HCC) Generalized Abdominal Pain Special Screening Examination for Viral Disease Lumbar Spondylosis Lumbosacral Radiculitis Hoarse Dizziness PAST MEDICAL HISTORY Diagnosis Date Abdominal pain Degenerative disc disease Depression Disorder of bone and cartilage, unspecified HTN (hypertension) Hypothyroid Intrinsic asthma Mixed hyperlipidemia Hyperlipidemia Osteoarthrosis, unspecified whether generalized or localized, other specified sites PMH - PAST MEDICAL HISTORY OF CVA with weakness left side PMH - PAST MEDICAL HISTORY OF 2000 left cervical radiculopathy PMH - PAST MEDICAL HISTORY OF 2003 right rib fracture PMH - PAST MEDICAL HISTORY OF 2005 right shoulder impingement syndrome Spinal stenosis Stroke (HCC) 2005 Unspecified hypothyroidism PAST SURGICAL HISTORY Procedure Laterality Date APPENDECTOMY 1960 BACK SURGERY HX 2017 L3-5 Decompression and Fusion CATARACT EXTRACTION HX Bilateral COLONOSCOPY N/A 09/15/2016 MAC EGD W/O [facility] SPEC VARICIES INJ 09/17/2016 EGD W/O [facility] SPEC VARICIES INJ 11/15/2022 EPIDURAL SITE SPECIFY lumbar spine PAST SURGICAL HISTORY OF 1976 thyroidectomy for toxic goiter TONSILLECTOMY PRIMARY/SECONDARY Tonsillectomy FAMILY HISTORY Problem Relation Age of Onset Cerebral Embolism Mother Osteoporosis Mother other (spinal stenosis) Mother other (depression) Mother other (cva) Mother othe (more content not included)... Normal [facility] CNPNon 11-23-2022 CNPN Telephone (AGOR) ----- CHIARA CROFT ([id number]) 1945 [place]* Date Time Provider Department 11/23/22 LARS ALCANTAR AGOR During your visit today, we recorded the following information about you: Salas Andrews RN 11/23/2022 3:09 PM Signed Attempted to reach patient. Left HIPAA compliant voice message on [employer] asking patient to call office back. Ordered scoliosis films to have completed prior to appointment with Dr Alcantar on 11/26/2022. Provided information of when and where to obtain images. Additionally, provided our office phone number and my extension. Salas Andrews RN Allergies As of Date: 11/23/2022 Noted Allergy Reaction CYMBALTA (DULOXETINE) 10/02/2021 14 - Other: See Comments Comments: Tremor FOSAMAX (ALENDRONATE SODIUM) 09/21/2019 5 - Intolerance Comments: Reflux SEPTRA (SULFAMETHOXAZOLE-TRIMETH O*03/23/2006 4 - Hives Comments: swelling and SOB SULFAMETHOXAZOLE 05/08/2019 4 - Hives TRAMADOL 10/02/2021 14 - Other: See Comments Comments: Tremor TRIMETHOPRIM 05/08/2019 4 - Hives BUPROPION 07/06/2021 14 - Other: See Comments Date Reviewed: 11/22/2022 Reviewed by: Zheng Tse LPN - Fully Assessed Reason for Visit: Home Care Assistant - Other [3602] Cmt: xrays Primary Visit Diagnosis:DDD (degenerative disc disease), lumbar [M51.36] Order(s):XR SCOLIOSIS PA STAND/LAT 2V [[id number]] Order #: [id number] FUTURE Prescriptions as of 11/23/2022 - fluticasone-salmeterol (ADVAIR DISKUS) 250-50 mcg/dose inhaler - levothyroxine (SYNTHROID) 112 mcg tablet Take 1 tablet by mouth once daily. - lansoprazole (PREVACID) 15 mg capsule Take 1 capsule by mouth once daily. - losartan (COZAAR) 50 mg tablet TAKE 1 AND 1/2 (ONE AND ONE-HALF) TABLETS BY MOUTH ONCE DAILY - rosuvastatin (CRESTOR) 5 mg tablet Take 1 tablet by mouth once daily. - clopidogrel (PLAVIX) 75 mg tablet Take 1 tablet by mouth once daily. [facility] ID: [id number] [email or web address] - albuterol HFA (VENTOLIN HFA) 90 mcg/actuation inhaler Inhale 2 Puffs as instructed every 4 hours as needed for wheezing/shortness of breath. - lidocaine (SALONPAS) 4 % patch Apply as directed once daily. - denosumab (PROLIA) 60 mg/mL syrg Inject 60 mg subcutaneously one time only. - Cholecalciferol, Vitamin D3, 25 mcg (1,000 unit) cap Vitamin D - acetaminophen (TYLENOL) 500 mg tablet Take 500 mg by mouth every 8 hours as needed. - CALCIUM CARBONATE (CALCIUM 500 ORAL) Take by mouth. Problem List As Of Date 11/23/2022 Noted Resolved Mild persistent asthma without complication [J4*09/01/2016 Stroke (HCC) [I63.9] 09/01/2016 GERD (gastroesophageal reflux disease) [K21.9] 09/01/2016 Platelet inhibition due to Plavix [Z79.02] 09/01/2016 Hyperthyroidism [E05.90] 09/01/2016 RUQ abdominal pain [R10.11] 09/15/2016 09/15/2016 Nausea [R11.0] 09/15/2016 09/15/2016 Abnormal LFTs [R79.89] 09/15/2016 09/15/2016 Postlaminectomy syndrome [M96.1] 10/07/2021 Chronic bilateral low back pain without sciatic*10/07/2021 Chronic SI joint pain [M53.3, G89.29] 10/07/2021 Primary hypertension [I10] 10/23/2021 Hyperlipidemia [E78.5] 10/23/2021 Post-surgical hypothyroidism [E89.0] 10/23/2021 Other cerebral infarction (HCC) [I63.89] 10/23/2021 Generalized abdominal pain [R10.84] 10/23/2021 Special screening examination for viral disease*10/23/2021 Lumbar spondylosis [M47.816] 01/15/2022 Lumbosacral radiculitis [M54.17] 09/03/2022 Hoarse [R49.0] 09/08/2022 Encounter Status:Closed by SALAS ANDREWS on 11/23/22 [facility] EGD DIAGNOSTICon 11-15-2022 [facility] XR HIP BILATERAL 5V PEL/AP/L AT EACH HIPon 08-19-2022 IMPRESSION: Bilateral acetabular protrusion - otherwise bilateral hips maintained. Clam Treader: LIUDMILA Transcribe Date/Time: Aug 19 2022 4:46P Dictated by : NEO ORDAZ MD This examination was interpreted and the report reviewed and electronically signed by: NEO ORDAZ MD on Aug 19 2022 4:49PM [facility] DIVISION OF RADIOLOGY * * *Final Report* * * DATE OF EXAM: Aug 19 2022 3:03PM WOX [id number] - XR HIP MARCELO 5V PEL+ AP/LAT EA HIP / PROCEDURE REASON: Hip pain * * * * Physician Interpretation * * * * HISTORY: bilateral hip pain. Hip pain . TECHNIQUE: XR HIP MARCELO 5V PEL+ AP/LAT EA HIP Laterality: BILATERAL Number of different views (projections): 5 COMPARISON: None RESULT: Bilateral acetabular protrusion is present otherwise bilateral hips are well-maintained. No fracture. The bony pelvis is intact. The SI joints appear unremarkable. Some degenerative changes pubis symphysis. Postsurgical changes of the lower lumbar spine. DIVISION OF RADIOLOGY Provider, [facility] - 08/19/2022 * * *Final Report* * * DATE OF EXAM: Aug 19 2022 3:03PM WOX [id number] - XR HIP MARCELO 5V PEL+ AP/LAT EA HIP / PROCEDURE REASON: Hip pain * * * * Physician Interpretation * * * * HISTORY: bilateral hip pain. Hip pain . TECHNIQUE: XR HIP MARCELO 5V PEL+ AP/LAT EA HIP Laterality: BILATERAL Number of different views (projections): 5 COMPARISON: None RESULT: Bilateral acetabular protrusion is present otherwise bilateral hips are well-maintained. No fracture. The bony pelvis is intact. The SI joints appear unremarkable. Some degenerative changes pubis symphysis. Postsurgical changes of the lower lumbar spine. IMPRESSION IMPRESSION: Bilateral acetabular protrusion - otherwise bilateral hips maintained. Clam Treader: PSCB Transcribe Date/Time: Aug 19 2022 4:46P Dictated by : NEO ORDAZ MD This examination was interpreted and the report reviewed and electronically signed by: NEO ORDAZ MD on Aug 19 2022 4:49PM EST [facility] Radiology Study observation (narrative) [facility] XR HIP BILATERAL 5V PEL/AP/L AT EACH HIPOrdered By: [facility] Provider on 08-19-2022 [facility] No Panel Informationon 01-06 [facility] No Panel Informationon 11-12 [facility] Office Visiton 06-07-2017 Documentation of current medications (procedure) Done Invalid Interpretation Code [facility] Sports Medicine and Orthopaedics Work Phone: Tobacco use [facility] Former smoker Invalid Interpretation Code [facility] Orth[facility] Work Phone: Lab Report: CBC W/Diff, Auto matedon 06-01-2017 Absolute Neut 8.4 X10 3/UL High 2.0-7.7 [facility] Medicine [facility] Orthopa[facility] Work Phone: RDW SD 53.6 fL High 35.1-43.9 [facility] Work Phone: Basophils/100 WBC Auto (Bld) 0.2 % Invalid Interpretation Code 0-1 [facility] Sports Medicine and Orthopa[facility]ics Work Phone: Eosinophils/100 leukocytes 0.7 % Invalid Interpretation Code 0-5 [facility] Work Phone: Erythrocyte distribution width Auto Ratio (RBC) 15.4 % High 11.6-14.6 [facility] Work Phone: Erythrocytes (RBC) 4.45 10*6/uL Invalid Interpretation Code 4.2-5.4 [facility] Work Phone: Hematocrit (HCT) 42.1 % Invalid Interpretation Code 37-47 [facility] Work Phone: Hemoglobin mass conc (Bld) 13.6 g/dL Invalid Interpretation Code 12.0-15.0 [facility] Work Phone: Immature granulocytes/100 WBC (Bld) 0.800 % Invalid Interpretation Code 0.0-0.9 [facility] Work Phone: Lymphocytes 2.82 X10 3/UL Invalid Interpretation Code 0.83-4.51 [facility] Work Phone: Lymphocytes/100 leukocytes 23.3 % Invalid Interpretation Code 19-41 [facility] Work Phone: MCH 30.6 pg Invalid Interpretation Code 27.0-32.0 [facility] Work Phone: MCHC mass conc (RBC) 32.3 G/GL Invalid Interpretation Code 32-36 [facility] Work Phone: MCV 94.6 fL Invalid Interpretation Code 81-99 [facility] Work Phone: Monocytes/100 leukocytes 5.9 % Invalid Interpretation Code 0-10 [facility] Work Phone: Neutrophils/100 WBC Auto (Bld) 69.1 % Invalid Interpretation Code 47-70 [facility] Work Phone: Platelets 399 10*3/mm3 Invalid Interpretation Code 150-450 [facility] Work Phone: PMV by Suzette 8.9 fL Invalid Interpretation Code 6.2-12.0 [facility] Work Phone: WBC (Leukocytes) 12.1 10*3/uL High 4.4-11.0 [facility] Work Phone: Lab Report: Comprehensive [facility] mert Crump 06-01-2017 Alanine aminotransferase (ALT) 26 U/L Invalid Interpretation Code 12-78 [facility] Work Phone: Albumin 3.4 g/dL Invalid Interpretation Code 3.4-5.0 [facility] Work Phone: Albumin/Globulin Ratio 1 {ratio} Invalid Interpretation Code 0.9-2.4 [facility] Work Phone: Alkaline phosphatase (ALP) 73 U/L Invalid Interpretation Code 45-117 [facility] Work Phone: Anion gap 8 mmol/L Invalid Interpretation Code 5-15 [facility] Work Phone: Aspartate aminotransferase (AST) 12 U/L Low 15-37 [facility] Work Phone: Bilirubin (total) 0.50 mg/dL Invalid Interpretation Code 0.20-1.00 [facility] Work Phone: BUN/Creatinine Ratio 14.5 RATIO Invalid Interpretation Code 10-20 [facility] Work Phone: Calcium 8.9 mg/dL Invalid Interpretation Code 8.5-10.1 [facility] Work Phone: Chloride 99 mmol/L Invalid Interpretation Code 98-107 [facility] Work Phone: CO2 29.0 mmol/L Invalid Interpretation Code 21.0-32.0 [facility] Work Phone: Creatinine 0.76 mg/dL Invalid Interpretation Code 0.55-1.02 [facility] Work Phone: eGFR (non-black) 79 mL/min/{1.73_m2} Invalid Interpretation Code >60 [facility] Work Phone: eGFR (non-black) 96 mL/min/{1.73_m2} Invalid Interpretation Code >60 [facility] Work Phone: Globulin 3.5 g/dL Invalid Interpretation Code 2.3-3.5 [facility] Work Phone: Glucose mass conc 77 mg/dL Invalid Interpretation Code 70-110 [facility] Work Phone: Potassium molar conc 4.2 mmol/L Invalid Interpretation Code 3.5-5.1 [facility] Work Phone: Protein 6.9 g/dL Invalid Interpretation Code 6.4-8.2 [facility] Work Phone: Sodium 136 mmol/L Invalid Interpretation Code 136-145 [facility] Work Phone: Urea nitrogen 11 mg/dL Invalid Interpretation Code 7-18 [facility] Work Phone: Lab Report: Lipid Profileon 06-01-2017 Cholesterol 193 mg/dL Invalid Interpretation Code 200 [facility] Work Phone: HDL Cholesterol 108 mg/dL Invalid Interpretation Code [facility] Work Phone: LDL Cholesterol 66 mg/dL Invalid Interpretation Code 0-130 [facility] Work Phone: Triglyceride 95 mg/dL Invalid Interpretation Code [facility] Work Phone: very low density lipoproteins 19 mg/dL Invalid Interpretation Code 5-40 [facility] Work Phone: Lab Report: Thyroid Stim Hor mayito (TSH)on 06-01-2017 Thyroid stimulating hormone (TSH) 2.61 u[iU]/mL Invalid Interpretation Code 0.358-3.74 [facility] Work Phone: Lab Report: Vitamin D,25 Scott santiago 06-01-2017 Vitamin D 25-OH 39.5 ng/mL Invalid Interpretation Code [facility] Work Phone: Office Visit: Est. Pt. Visit on 05-24-2017 Fall risk assessment No Invalid Interpretation Code [facility] Work Phone: T3, FREE (TRIDOTHYRONINE) ([phone])Ordered By: Outplacement Consultant on 12-02-2014 Free T3 [Mass/Vol] 2.4 pg/mL Normal 2.0-4.4 [facility] Medicine Work Phone: Comment on above: PATIENT NOT FASTINGP ERFORMED BY: ELENA LabSinDelantal.Mxrp Oxpjuz[address] [place] [id number] T4, FREE (THYROXINE) (81802) Ordered By: Outplacement Consultant on 12-02-2014 Free T4 [Mass/Vol] 1.47 ng/dL Normal 0.82-1.77 [facility] Internal Medicine Work Phone: Comment on above: PATIENT NOT FASTINGP ERFORMED BY: ELENA [facility] [place] [id number] Information: [id number] Urinalysis, Office (18650)Or dered By: Diana Montaño on 07-03-2014 Bilirubin Ql (U) Negative Normal Comprehe nsive Internal Medicine Work Phone: Glucose Test strip (U) [Mass/Vol] Negative Normal [facility] Work Phone: Hemoglobin Ql (U) Negative Normal Compreh ensive Internal Medicine Work Phone: Ketones Ql (U) Negative Normal Comprehens lizeth Internal Medicine Work Phone: Leukocyte esterase Test strip Ql (U) Negative Normal [facility] Work Phone: Nitrite Ql (U) Negative Normal Comprehens lizeth Internal Medicine Work Phone: pH (U) 7.0 [pH] Normal [facility] Work Phone: Protein Ql (U) Negative Normal Comprehens lizeth Internal Medicine Work Phone: Specific gravity (U) [Rel density] 1.015 1 Normal [facility] Internal Medicine Work Phone: Urobilinogen (24H U) [Mass/Time] 2 mg/dL Normal [facility] Internal Medicine Work Phone: Thin prep Pap ([id number])Ordered By: Outplacement Consultant on 04-10-2014 Microscopic observation Other stain Nom (Unsp spec) . Normal Comprehens lizeth Internal Medicine Work Phone: Comment on above: Source.............C ervical;EndocervicalNo. of containers..01 CYTYC Thin Prep VialPATIENT NOT FASTINGPERFORMED BY: [address] [place], [place] [address]SafeTacMagExcela [facility] [id number] Information: [id number] Pathology report final diagnosis Narrative SPRCS Normal [facility] Internal Medicine Work Phone: Comment on above: NEGATIVE FOR INTRAEP ITHELIAL LESION AND MALIGNANCY.CELLULAR CHANGES ASSOCIATED WITH ATROPHY AND INFLAMMATION ARE PRESENT.Satisfactory for evaluation. Endocervical component may not bedistinguished in cases of atrophy.V76.2 ; Screening for malignant neoplasm of the cervixCarolyn Maury, Incendiary Powder Mixer (ASCP) Source.............C ervical;EndocervicalNo. of containers..01 CYTYC Thin Prep VialPATIENT NOT FASTINGPERFORMED BY: Apartment Adda [facility], MemphisExperience HeadphonesOrem Community Hospital [id number] Information: [id number] Thin prep Pap (68335) PAPSMR Normal [facility] prehensive Internal Medicine Work Phone: Comment on above: The Pap smear is a s creening test designed to aid in the detection ofpremalignant and malignant conditions of the uterine cervix. It is not adiagnostic procedure and should not be used as the sole means of detectingcervical cancer. Both false-positive and false-negative reports do occur. .This liquid based ThinPrep(R) pap test was screened with theuse of an image guided system.The HPV DNA reflex criteria were not met with this specimen resulttherefore, no HPV testing was performed. . Source.............C ervical;EndocervicalNo. of containers..01 CYTYC Thin Prep VialPATIENT NOT FASTINGPERFORMED BY: [address] [facility] [place] [id number] Information: [id number] HgA1C , Office (46826)Ordere d By: Dorothea Chapa on 02-12-2013 HbA1c (Bld) [Mass fraction] 5.4 % Normal 4.6 - 7.1 [facility] Work Phone: URINE SHIRLEY CULTURE (REMEDIOS COL COUNT) ([id number])Ordered By: Outplacement Consultant on 10-25-2012 Bacteria identified Cx Nom (U) Final report Normal [facility] Work Phone: Comment on above: PATIENT NOT FASTINGP ERFORMED BY: LabSinDelantal.Mx Dptryi4530 Herrera AdapticsSelect [facility]ty Hospital [id number] Information: SRC:UR [id number] Bacteria identified Cx Nom (U) NG36 Normal [facility] Work Phone: Comment on above: No growth in 36 - 48 hours. PATIENT NOT FASTINGP ERFORMED BY: [employer] Legrws3929 Herrera H2020[facility] [id number] Information: SRC:UR [id number] Urinalysis, Office (28708)Or dered By: Spring Galaviz on 10-25-2012 Bilirubin Ql (U) Negative Normal Comprehe nsive Internal Medicine Work Phone: Glucose Test strip (U) [Mass/Vol] Negative Normal [facility] Work Phone: Hemoglobin Ql (U) Hemolyzed Trace Normal Co mprehensive Internal Medicine Work Phone: Ketones Ql (U) Negative Normal Comprehens lizeth Internal Medicine Work Phone: Leukocyte esterase Test strip Ql (U) Negative Normal [facility] Work Phone: Nitrite Ql (U) Negative Normal Comprehens lizeth Internal Medicine Work Phone: pH (U) 7.0 [pH] Normal [facility] Work Phone: Protein Ql (U) Negative Normal Comprehens lizeth Internal Medicine Work Phone: Specific gravity (U) [Rel density] 1.015 1 Normal [facility] Work Phone: Urobilinogen (24H U) [Mass/Time] Normal Normal [facility] Work Phone: ESPINOZA (ANTINUCLEAR ANTIBODY) ( 37913)Ordered By: Outplacement Consultant on 06-23-2012 Nuclear Ab Ql (S) Negative Normal Compreh ensive Internal Medicine Work Phone: Comment on above: PATIENT NOT FASTINGP ERFORMED BY: [employer]6370 Sequ[employer] CommunicationsAtrium Health [facility] [id number] CBC (Auto) (79183)Ordered By : Outplacement Consultant on 06-23-2012 Erythrocyte distribution width (RBC) [Ratio] 14.0 % Normal 12.3-15.4 [facility] Work Phone: Comment on above: PATIENT NOT FASTINGP ERFORMED BY: [employer]70 HerreraEco Dream VentureAtrium Health University City [id number] Information: [id number] Hematocrit (Bld) [Volume fraction] 40.6 % Normal 34.0-46.6 [facility] Work Phone: Comment on above: PATIENT NOT FASTINGP ERFORMED BY: [employer] Edlvdl0541 Herrera H2020[facility] [id number] Information: [id number] Hemoglobin (Bld) [Mass/Vol] 13.4 g/dL Normal 11.1-15.9 [facility] Work Phone: Comment on above: PATIENT NOT FASTINGP ERFORMED BY: [employer] Hxvmij7390 Herrera H2020[facility] [id number] Information: [id number] MCH (RBC) [Entitic mass] 30.6 pg Normal 26.6-33.0 [facility] Internal Medicine Work Phone: Comment on above: PATIENT NOT FASTINGP ERFORMED BY: ELENA Murphy6370 [facility] [id number] Information: [id number] MCHC (RBC) [Mass/Vol] 33.0 g/dL Normal 31.5-35.7 [facility] Centerensive [facility] Work Phone: Comment on above: PATIENT NOT FASTINGP ERFORMED BY: ELENA LabCo Phjjxj5918 [facility] [id number] Information: [id number] MCV (RBC) [Entitic vol] 93 fL Normal 79-97 [facility] Internal Medicine Work Phone: Comment on above: PATIENT NOT FASTINGP ERFORMED BY: ELENA Cardenas Djfxse1428 [facility] [id number] Information: [id number] Platelets (Bld) [#/Vol] 387 {x10E3/uL} Normal 140-415 [facility] Internal Medicine Work Phone: Comment on above: PATIENT NOT FASTINGP ERFORMED BY: ELENA Summerslin6370 [facility] [id number] Information: [id number] RBC (Bld) [#/Vol] 4.38 {x10E6/uL} Normal 3.77-5.28 [facility] Internal Medicine Work Phone: Comment on above: PATIENT NOT FASTINGP ERFORMED BY: ELENA LabCoVirtua [facility] Medical CenterVywtbf1961 [facility] [id number] Information: [id number] WBC (Bld) [#/Vol] 7.6 {x10E3/uL} Normal 4.0-10.5 [facility] Internal Medicine Work Phone: Comment on above: PATIENT NOT FASTINGP ERFORMED BY: ELENA LabCoVirtua [facility] CenterEixqsw5286 [facility] [id number] Information: [id number] PT (Prothrobim Time) (15732) Ordered By: Outplacement Consultant on 06-23-2012 INR Coag (PPP) [Relative time] 1.0 {INR} Normal 0.8-1.2 [facility] Work Phone: Comment on above: Reference interval i s for non-anticoagulated patients. . Suggested INR therapeutic range for Vitamin K antagonist therapy: Standard Dose (moderate intensity therapeutic range): 2.0 - 3.0 Higher intensity therapeutic range 2.5 - 3.5 PATIENT NOT FASTINGP ERFORMED BY: [facility]6370 [facility] [id number] PT Coag (PPP) [Time] 10.2 {sec} Normal 9.1-12.0 Comp rehensive Internal Medicine Work Phone: Comment on above: PATIENT NOT FASTINGP ERFORMED BY: [facility]6370 [facility] [id number] PTT (Activated Partial Throm boplastin Time) ([id number])Ordered By: Outplacement Consultant on 06-23-2012 aPTT Coag (PPP) [Time] 29 {sec} Normal 24-33 [facility] Work Phone: Comment on above: This test has not be en validated for monitoring unfractionated heparintherapy. aPTT-based therapeutic ranges for unfractionated heparintherapy have not been established. For general guidelines onHeparin monitoring, refer to the [facility] Directory of Services. PATIENT NOT FASTINGP ERFORMED BY: [facility]6370 [facility] [id number] Thin prep Pap (56583)Ordered By: Outplacement Consultant on 04-03-2012 Microscopic observation Other stain Nom (Unsp spec) . Normal Comprehens lizeth Internal Medicine Work Phone: Comment on above: Source.............C ervical;EndocervicalNo. of containers..01 CYTYC Thin Prep VialPATIENT NOT FASTINGPERFORMED BY: [address] [id number] Information: [id number] Pathology report final diagnosis Narrative SPRCS Normal [facility] Work Phone: Comment on above: NEGATIVE FOR INTRAEP ITHELIAL LESION AND MALIGNANCY.CELLULAR CHANGES ASSOCIATED WITH ATROPHY ARE PRESENT.Satisfactory for evaluation. Endocervical and/or squamous metaplasticcells (endocervical component) are present.V76.2 ; Screening for malignant neoplasm of the cervixPearl Saxena Incendiary Powder Mixer (ASCP) Source.............C ervical;EndocervicalNo. of containers..01 CYTYC Thin Prep VialPATIENT NOT FASTINGPERFORMED BY: BranchOut[address] [id number] Information: [id number] Thin prep Pap (50352) PAPSMR Normal [facility] Centerensive [facility] Work Phone: Comment on above: The Pap smear is a s creening test designed to aid in the detection ofpremalignant and malignant conditions of the uterine cervix. It is not adiagnostic procedure and should not be used as the sole means of detectingcervical cancer. Both false-positive and false-negative reports do occur. .This liquid based ThinPrep(R) pap test was screened with theuse of an image guided system.The HPV DNA reflex criteria were not met with this specimen resulttherefore, no HPV testing was performed. . Source.............C ervical;EndocervicalNo. of containers..01 CYTYC Thin Prep VialPATIENT NOT FASTINGPERFORMED BY: BranchOut[address] [id number] Information: [id number] SHIRLEY CULTURE-OTHER ([id number])Ord ered By: Outplacement Consultant on 08-09-2011 Bacteria identified Respiratory culture Nom (Unsp spec) Final report Normal [facility] Work Phone: Comment on above: PATIENT NOT FASTINGP ERFORMED BY: LabCo Oqqfwx3661 [facility] [id number] Information: SRC: THROAT Bacteria identified Respiratory culture Nom (Unsp spec) RRF Normal [facility] Work Phone: Comment on above: Routine respiratory jimena PATIENT NOT FASTINGP ERFORMED BY: ELENA AngelicaBronson Methodist Hospital6370 [facility] [id number] Information: SRC: THROAT Rapid Strep Test, Office (40 402)on 08-09-2011 S. pyogenes Ag IA Ql (Unsp spec) Negative Normal [facility] Work Phone: HEPATIC FUNCTION PANEL ([id number] 6)Ordered By: Outplacement Consultant on 07-07-2010 Albumin [Mass/Vol] 4.4 g/dL Normal 3.6-4.8 Compre [email or web address] Internal Medicine Work Phone: Comment on above: PATIENT WAS FASTINGP ERFORMED BY: ELENA Cardenas Jwskom7646 [facility] [id number] Information: ADD [id number] AND DRAW FEE 99 [id number] ALP [Catalytic activity/Vol] 66 [iU]/L Normal 25-165 [facility] Work Phone: Comment on above: PATIENT WAS FASTINGP ERFORMED BY: ELENA DominguezCo Yziaeg9261 [facility] [id number] Information: ADD [id number] AND DRAW FEE 99 [id number] ALT [Catalytic activity/Vol] 24 [iU]/L Normal 0-40 [facility] Work Phone: Comment on above: PATIENT WAS FASTINGP ERFORMED BY: ELENA LabCo Ieousj2273 [facility] [id number] Information: ADD [id number] AND DRAW FEE 99 [id number] AST [Catalytic activity/Vol] 31 [iU]/L Normal 0-40 [facility] Work Phone: Comment on above: PATIENT WAS FASTINGP ERFORMED BY: ELENA LabCo Gcmerp6730 [facility] [id number] Information: ADD [id number] AND DRAW FEE 99 6660 Bilirubin [Mass/Vol] 0.3 mg/dL Normal 0.0-1.2 Comp [facility] Work Phone: Comment on above: PATIENT WAS FASTINGP ERFORMED BY: ELENA Cardenasrp Utovic7735 [facility] [id number] Information: ADD [id number] AND DRAW FEE 99 6660 Bilirubin.direct [Mass/Vol] 0.13 mg/dL Normal 0.00-0.40 [facility] Work Phone: Comment on above: PATIENT WAS FASTINGP ERFORMED BY: [place] 1593270 [facility] [id number] Information: ADD [id number] AND DRAW FEE 99 6660 Protein [Mass/Vol] 7.0 g/dL Normal 6.0-8.5 [facility] Internal Medicine Work Phone: Comment on above: PATIENT WAS FASTINGP ERFORMED BY: ELENA [place] 8152870 [facility] [id number] Information: ADD E34607 AND DRAW FEE 99 6660 LIPID PANEL (47141)Ordered B y: Outplacement Consultant on 07-07-2010 Cholesterol [Mass/Vol] 139 mg/dL Normal 100-199 [facility] Work Phone: Comment on above: PATIENT WAS FASTINGP ERFORMED BY: ELENA [place] 8152870 [facility] [id number] Cholesterol in HDL [Mass/Vol] 61 mg/dL Normal [facility] Work Phone: Comment on above: According to ATP-III Guidelines, HDL-C >59 mg/dL is considered anegative risk factor for CHD. PATIENT WAS FASTINGP ERFORMED BY: ELENA [facility]6370 [facility] [id number] Cholesterol in LDL [Mass/Vol] 62 mg/dL Normal 0-99 [facility] Work Phone: Comment on above: PATIENT WAS FASTINGP ERFORMED BY: [place] 1593270 [facility] [id number] Cholesterol in LDL/Cholesterol in HDL [Mass ratio] 1.0 {ratio_units} Normal 0.0-3.2 [facility] Work Phone: Comment on above: PATIENT WAS FASTINGP ERFORMED BY: [facility]6370 [facility] [id number] Cholesterol in VLDL [Mass/Vol] 16 mg/dL Normal 5-40 [facility] Work Phone: Comment on above: PATIENT WAS FASTINGP ERFORMED BY: [facility]6370 [place] [facility] [facility] [id number] Triglyceride [Mass/Vol] 79 mg/dL Normal 0-149 [facility] Work Phone: Comment on above: PATIENT WAS FASTINGP ERFORMED BY: [facility] [id number] Vitamin D Hydroxy ([id number])Ord ered By: Outplacement Consultant on 07-07-2010 Calcitriol [Mass/Vol] 42.4 ng/mL Normal 32.0-100.0 [facility] prehensive Internal Medicine Work Phone: Comment on above: Recent studies consi alvarado the lower limit of 32.0 ng/mL to be athreshold for optimal health.Gonsalo BATEMAN. J Nutr. 2004;135(2):317-22. PATIENT WAS FASTINGP ERFORMED BY: [facility] [id number] Thin prep Pap ([id number])Ordered By: Outplacement Consultant on 03-10-2010 Microscopic observation Other stain Nom (Unsp spec) . Normal Comprehens lizeth Internal Medicine Work Phone: Comment on above: Source.............C ervical;EndocervicalNo. of containers..01 CYTYC Thin Prep VialPATIENT NOT FASTINGPERFORMED BY: Magazino[address] [id number] Information: [id number] Pathology report final diagnosis Narrative SPRCS Normal [facility] Work Phone: Comment on above: NEGATIVE FOR INTRAEP ITHELIAL LESION AND MALIGNANCY.Satisfactory for evaluation. Endocervical and/or squamous metaplasticcells (endocervical component) are present.V72.31 ; Routine gynecological examinationPaxton Heater, Incendiary Powder Mixer (ASCP) Source.............C ervical;EndocervicalNo. of containers..01 CYTYC Thin Prep VialPATIENT NOT FASTINGPERFORMED BY: BranchOut[address] [id number] Information: [id number] Thin prep Pap ([id number]) PAPSMR Normal Com prehensive Internal Medicine Work Phone: Comment on above: The Pap smear is a s creening test designed to aid in the detection ofpremalignant and malignant conditions of the uterine cervix. It is not adiagnostic procedure and should not be used as the sole means of detectingcervical cancer. Both false-positive and false-negative reports do occur..The HPV DNA reflex criteria were not met with this specimen resulttherefore, no HPV testing was performed.. Source.............C ervical;EndocervicalNo. of containers..01 CYTYC Thin Prep VialPATIENT NOT FASTINGPERFORMED BY: BranchOut[address] [id number] Information: [id number] FECAL OCCULT HGB ASSAY- tube s sent home ([id number])Ordered By: Jayshree Mckeon on 01-29-2009 Hemoglobin.gastrointe stinal Ql (Stl) Negative Normal [facility] Work Phone: Thin prep Pap ([id number])Ordered By: Rakel Livingston on 01-29-2009 Microscopic observation Other stain Nom (Unsp spec) . Normal Comprehens lizeth Internal Medicine Work Phone: Comment on above: Source.............C ervical;EndocervicalLMP / Prev Treat...AFV=[id number]. of containers..01 CYTYC Thin Prep VialPATIENT NOT FASTINGClinical Information: ADD [id number] PERFORMED BY: Opzi[address] [place] [address] [facility] [id number] Pathology report final diagnosis Narrative SPRCS Normal [facility] Work Phone: Comment on above: NEGATIVE FOR INTRAEP ITHELIAL LESION AND MALIGNANCY.Satisfactory for evaluation. Endocervical and/or squamous metaplasticcells (endocervical component) are present.V72.31 ; Routine gynecological examinationSgonzález Ariza Incendiary Powder Mixer (ASCP) Source.............C ervical;EndocervicalLMP / Prev Treat...IZI=[id number]. of containers..01 CYTYC Thin Prep VialPATIENT NOT FASTINGClinical Information: ADD [id number] PERFORMED BY: Opzi[address] [place] [address] [id number] Thin prep Pap ([id number]) PAPSMR Normal [facility] Internal Medicine Work Phone: Comment on above: The Pap smear is a s creening test designed to aid in the detection ofpremalignant and malignant conditions of the uterine cervix. It is not adiagnostic procedure and should not be used as the sole means of detectingcervical cancer. Both false-positive and false-negative reports do occur. .The HPV DNA reflex criteria were not met with this specimen resulttherefore, no HPV testing was performed. . Source.............C ervical;EndocervicalLMP / Prev Treat...WRA=[id number]. of containers..01 CYTYC Thin Prep VialPATIENT NOT FASTINGClinical Information: ADD [id number] PERFORMED BY: Shopular[address] [id number] SHIRLEY CULTURE-OTHER ([id number])Ord ered By: Parisa Richard on 12-31-2008 Bacteria identified Aer cx Nom (Unsp spec) Negative Normal [facility] Work Phone: Rapid Strep Test, Office ([phone])Ordered By: Parisa Richard on 12-31-2008 S. pyogenes Ag IA Ql (Unsp spec) Negative Normal [facility] Work Phone: Thin prep Pap ([id number])Ordered By: Sasha Dominguez on 12-18-2007 Thin prep Pap ([id number]) PAPSMR Normal [facility] prehensive Internal Medicine Work Phone: Comment on above: The Pap smear is a s creening test designed to aid in the detection ofpremalignant and malignant conditions of the uterine cervix. It is not adiagnostic procedure and should not be used as the sole means of detectingcervical cancer. Both false-positive and false-negative reports do occur. .The HPV DNA reflex criteria were not met with this specimen resulttherefore, no HPV testing was performed. . Source.............C ervical;EndocervicalLMP / Prev Treat...TKH=[id number]. of containers..01 CYTYC Thin Prep VialPATIENT NOT FASTINGClinical Information: ADD [id number] PERFORMED BY: DDVTECH [facility] CentercomScore [facility] [address] [place] [id number] Thin prep Pap ([id number]) SPR Normal [facility] Internal Medicine Work Phone: Comment on above: NEGATIVE FOR INTRAEP ITHELIAL LESION AND MALIGNANCY.Satisfactory for evaluation. Endocervical and/or squamous metaplasticcells (endocervical component) are present.V72.31 ; Routine gynecological examinationSasha Yin Incendiary Powder Mixer (ASCP) Source.............C ervical;EndocervicalLMP / Prev Treat...PDP=[id number]. of containers..01 CYTYC Thin Prep VialPATIENT NOT FASTINGClinical Information: ADD [id number] PERFORMED BY: [employer] Aysy1306Yotpo [facility] [address] [place] [id number] Thin prep Pap ([id number]) . Normal [facility] prehensive Internal Medicine Work Phone: Comment on above: Source.............C ervical;EndocervicalLMP / Prev Treat...OFJ=[id number]. of containers..01 CYTYC Thin Prep VialPATIENT NOT FASTINGClinical Information: ADD [id number] PERFORMED BY: [employer] Evzs1810[employer] [address] [place] [id number] URINE SHIRLEY CULTURE-REMEDIOS COL C OUNT ([id number])Ordered By: Joanna Freitas on 09-20-2007 Bacteria identified Cx Nom (U) MUG Normal [facility] Work Phone: Comment on above: Mixed urogenital luke ra4,000 Colonies/mL PATIENT NOT FASTINGC linical Information: SRC:UR ADD [id number] PERFORMED BY: Sha-Sha70 [facility] [id number] Bacteria identified Cx Nom (U) Final report Normal [facility] Work Phone: Comment on above: PATIENT NOT FASTINGC linical Information: SRC:UR ADD [id number] PERFORMED BY: [employer]Phil[employer] [place] [id number] Urinalysis, Office ([id number])Or dered By: Jayshree Mckeon on 09-20-2007 Bilirubin Ql (U) Negative Normal Comprehe nsive Internal Medicine Work Phone: Glucose Test strip (U) [Mass/Vol] Negative Normal [facility] Work Phone: Hemoglobin Ql (U) Negative Normal Compreh ensive Internal Medicine Work Phone: Ketones Ql (U) Negative Normal Comprehens lizeth Internal Medicine Work Phone: Leukocyte esterase Test strip Ql (U) Negative Normal [facility] Work Phone: Nitrite Ql (U) Negative Normal Comprehens lizeth [facility] Medicine Work Phone: pH (U) 7.0 [pH] Normal [facility] Work Phone: Protein Ql (U) Negative Normal Comprehens lizeth Internal Medicine Work Phone: Specific gravity (U) [Rel density] 1.005 1 Normal [facility] Work Phone: Urobilinogen (24H U) [Mass/Time] 2 mg/dL Normal [facility] Work Phone: Rapid Strep Test, Office ([phone])Ordered By: Dorothea Chapa on 03-17-2007 S. pyogenes Ag IA Ql (Unsp spec) Negative Normal [facility] Work Phone: Comment on above: DONE-JJP Vital Signs Date Time Vital Sign Value Performing Clinician Facility 04-09-2025 08:02-0400 Body mass index (BMI) [Ratio] 26.1 kg/m2 Trisha Corona HOUSE SUPERINTENDENT-C Work Phone: [facility] 04-09-2025 08:02-0400 Body temperature 97.4 [degF] Trisha Corona HOUSE SUPERINTENDENT-C Work Phone: [facility] 04-09-2025 08:02-0400 Body weight 66.84 kg Trisha Corona HOUSE SUPERINTENDENT-C Work Phone: [facility] 04-09-2025 08:02-0400 Diastolic blood pressure 72 mm[Hg] Trisha Corona HOUSE SUPERINTENDENT-C Work Phone: [facility] 04-09-2025 08:02-0400 Heart rate 78 /min Trisha Corona HOUSE SUPERINTENDENT-C Work Phone: [facility] 04-09-2025 08:02-0400 Respiratory rate 18 /min Trisha Corona HOUSE SUPERINTENDENT-C Work Phone: [facility] 04-09-2025 08:02-0400 SaO2% (BldA) [Mass fraction] 100 % Trisha Corona HOUSE SUPERINTENDENT-C Work Phone: [facility] 04-09-2025 08:02-0400 Systolic blood pressure 119 mm[Hg] Trisha Corona HOUSE SUPERINTENDENT-C Work Phone: [facility] 02-27-2025 10:04-0400 Body mass index (BMI) [Ratio] 26.17 kg/m2 Quita Barth BIOINFORMATICS SOFTWARE ENGINEER.WEIGHT ANALYST Work Phone: [facility] 02-27-2025 10:04-0400 Body weight 67 kg Quita Barth BIOINFORMATICS SOFTWARE ENGINEER.WEIGHT ANALYST Work Phone: [facility] 02-27-2025 10:04-0400 Heart rate 78 /min Quita Barth BIOINFORMATICS SOFTWARE ENGINEER.WEIGHT ANALYST Work Phone: [facility] 02-27-2025 10:04-0400 SaO2% (BldA) [Mass fraction] 98 % Quita Barth APRN.CNP Work Phone: [facility] 01-16-2025 09:20-0400 Body mass index (BMI) [Ratio] 26.39 kg/m2 Meagan White MD Work Phone: [facility] 01-16-2025 09:20-0400 Body weight 67.59 kg Meagan White MD Work Phone: [facility] 01-16-2025 09:20-0400 Diastolic blood pressure 78 mm[Hg] Meagan White MD Work Phone: [facility] 01-16-2025 09:20-0400 Heart rate 76 /min Meagan White MD Work Phone: [facility] 01-16-2025 09:20-0400 SaO2% (BldA) [Mass fraction] 98 % Meagan White MD Work Phone: [facility] 01-16-2025 09:20-0400 Systolic blood pressure 128 mm[Hg] Meagan White MD Work Phone: [facility] 01-08-2025 07:51-0400 Body mass index (BMI) [Ratio] 26.5 kg/m2 Trisha Corona HOUSE SUPERINTENDENT-C Work Phone: [facility] 01-08-2025 07:51-0400 Body temperature 97.4 [degF] Trisha Corona HOUSE SUPERINTENDENT-C Work Phone: [facility] 01-08-2025 07:51-0400 Body weight 68.03 kg Trisha Corona HOUSE SUPERINTENDENT-C Work Phone: [facility] 01-08-2025 07:51-0400 Diastolic blood pressure 76 mm[Hg] Trisha Corona HOUSE SUPERINTENDENT-C Work Phone: [facility] 01-08-2025 07:51-0400 Heart rate 78 /min Trisha Corona HOUSE SUPERINTENDENT-C Work Phone: [facility] 01-08-2025 07:51-0400 Respiratory rate 18 /min Trisha Coroan HOUSE SUPERINTENDENT-C Work Phone: [facility] 01-08-2025 07:51-0400 SaO2% (BldA) [Mass fraction] 100 % Tirsha Corona HOUSE SUPERINTENDENT-C Work Phone: [facility] 01-08-2025 07:51-0400 Systolic blood pressure 123 mm[Hg] Trisha Corona HOUSE SUPERINTENDENT-C Work Phone: [facility] 12-27-2024 12:29-0400 Body mass index (BMI) [Ratio] 26.91 kg/m2 Jamila Latif BIOINFORMATICS SOFTWARE ENGINEER.WEIGHT ANALYST Work Phone: [facility] 12-27-2024 12:29-0400 Body temperature 97.81 [degF] Jamila Latif BIOINFORMATICS SOFTWARE ENGINEER.WEIGHT ANALYST Work Phone: [facility] 12-27-2024 12:29-0400 Body weight 68.9 kg Jamila Latif BIOINFORMATICS SOFTWARE ENGINEER.WEIGHT ANALYST Work Phone: [facility] 12-27-2024 12:29-0400 Diastolic blood pressure 72 mm[Hg] Jamila Latif BIOINFORMATICS SOFTWARE ENGINEER.WEIGHT ANALYST Work Phone: [facility] 12-27-2024 12:29-0400 Heart rate 84 /min Jamila Latif BIOINFORMATICS SOFTWARE ENGINEER.WEIGHT ANALYST Work Phone: [facility] 12-27-2024 12:29-0400 Respiratory rate 16 /min Jamila Latif BIOINFORMATICS SOFTWARE ENGINEER.WEIGHT ANALYST Work Phone: [facility] 12-27-2024 12:29-0400 SaO2% (BldA) [Mass fraction] 98 % Jamila Latif BIOINFORMATICS SOFTWARE ENGINEER.WEIGHT ANALYST Work Phone: [facility] 12-27-2024 12:29-0400 Systolic blood pressure 122 mm[Hg] Jamila Latif BIOINFORMATICS SOFTWARE ENGINEER.WEIGHT ANALYST Work Phone: [facility] 12-18-2024 11:44-0400 Body height 160.02 cm Trisha Corona NP-C Work Phone: [facility] 12-18-2024 11:44-0400 Body mass index (BMI) [Ratio] 26.2 kg/m2 Trisha Corona HOUSE SUPERINTENDENT-C Work Phone: [facility] 12-18-2024 11:44-0400 Body temperature 97.4 [degF] Trisha Corona HOUSE SUPERINTENDENT-C Work Phone: [facility] 12-18-2024 11:44-0400 Body weight 67.13 kg Trisha Corona HOUSE SUPERINTENDENT-C Work Phone: [facility] 12-18-2024 11:44-0400 Diastolic blood pressure 77 mm[Hg] Trisha Corona HOUSE SUPERINTENDENT-C Work Phone: [facility] 12-18-2024 11:44-0400 Heart rate 74 /min Trisha Corona HOUSE SUPERINTENDENT-C Work Phone: [facility] 12-18-2024 11:44-0400 Respiratory rate 20 /min Trisha Corona HOUSE SUPERINTENDENT-C Work Phone: [facility] 12-18-2024 11:44-0400 SaO2% (BldA) [Mass fraction] 96 % Trisha Corona HOUSE SUPERINTENDENT-C Work Phone: [facility] 12-18-2024 11:44-0400 Systolic blood pressure 136 mm[Hg] Trisha Corona HOUSE SUPERINTENDENT-C Work Phone: [facility] 12-15-2024 11:32-0400 Body mass index (BMI) [Ratio] 26.1 kg/m2 Trisha Corona HOUSE SUPERINTENDENT-C Work Phone: [facility] 12-15-2024 11:32-0400 Body temperature 98 [degF] Trisha Corona HOUSE SUPERINTENDENT-C Work Phone: [facility] 12-15-2024 11:32-0400 Body weight 66.9 kg Trisha Corona HOUSE SUPERINTENDENT-C Work Phone: [facility] 12-15-2024 11:32-0400 Diastolic blood pressure 80 mm[Hg] Trisha Corona HOUSE SUPERINTENDENT-C Work Phone: [facility] 12-15-2024 11:32-0400 Heart rate 78 /min Trisha Corona HOUSE SUPERINTENDENT-C Work Phone: [facility] 12-15-2024 11:32-0400 SaO2% (BldA) [Mass fraction] 99 % Trisha Corona HOUSE SUPERINTENDENT-C Work Phone: [facility] 12-15-2024 11:32-0400 Systolic blood pressure 128 mm[Hg] Trisha Corona HOUSE SUPERINTENDENT-C Work Phone: [facility] 12-04-2024 11:18-0400 Body mass index (BMI) [Ratio] 26.56 kg/m2 Nelsy Praisler-Wood BIOINFORMATICS SOFTWARE ENGINEER.WEIGHT ANALYST Work Phone: [facility] 12-04-2024 11:18-0400 Body temperature 97.9 [degF] Nelsy Praisler-Wood BIOINFORMATICS SOFTWARE ENGINEER.WEIGHT ANALYST Work Phone: [facility] 12-04-2024 11:18-0400 Body weight 68 kg Nelsy Praisler-Wood BIOINFORMATICS SOFTWARE ENGINEER.WEIGHT ANALYST Work Phone: [facility] 12-04-2024 11:18-0400 Diastolic blood pressure 80 mm[Hg] Nelsy Praisler-Wood BIOINFORMATICS SOFTWARE ENGINEER.WEIGHT ANALYST Work Phone: [facility] 12-04-2024 11:18-0400 Heart rate 82 /min Nelsy Praisler-Wood BIOINFORMATICS SOFTWARE ENGINEER.WEIGHT ANALYST Work Phone: [facility] 12-04-2024 11:18-0400 Respiratory rate 20 /min Nelsy Praisler-Wood BIOINFORMATICS SOFTWARE ENGINEER.WEIGHT ANALYST Work Phone: [facility] 12-04-2024 11:18-0400 SaO2% (BldA) [Mass fraction] 98 % Nelsy Praisler-Wood BIOINFORMATICS SOFTWARE ENGINEER.WEIGHT ANALYST Work Phone: [facility] 12-04-2024 11:18-0400 Systolic blood pressure 157 mm[Hg] Nelsy Praisler-Wood BIOINFORMATICS SOFTWARE ENGINEER.WEIGHT ANALYST Work Phone: [facility] 11-20-2024 15:02-0400 Body mass index (BMI) [Ratio] 26.48 kg/m2 Quitaceci Williamsonle BIOINFORMATICS SOFTWARE ENGINEER.WEIGHT ANALYST Work Phone: [facility] 11-20-2024 15:02-0400 Body weight 67.8 kg Quita Williamsonle BIOINFORMATICS SOFTWARE ENGINEER.WEIGHT ANALYST Work Phone: [facility] 11-20-2024 15:02-0400 Heart rate 80 /min Quita Williamsonle BIOINFORMATICS SOFTWARE ENGINEER.WEIGHT ANALYST Work Phone: [facility] 11-20-2024 15:02-0400 SaO2% (BldA) [Mass fraction] 98 % Quita Barth BIOINFORMATICS SOFTWARE ENGINEER.WEIGHT ANALYST Work Phone: [facility] 11-19-2024 08:59-0400 Diastolic blood pressure 76 mm[Hg] Angie Haagen BIOINFORMATICS SOFTWARE ENGINEER.WEIGHT ANALYST Work Phone: [facility] 11-19-2024 08:59-0400 Heart rate 45 /min Angie Haagen BIOINFORMATICS SOFTWARE ENGINEER.WEIGHT ANALYST Work Phone: [facility] 11-19-2024 08:59-0400 Respiratory rate 16 /min Angie Haagen BIOINFORMATICS SOFTWARE ENGINEER.WEIGHT ANALYST Work Phone: [facility] 11-19-2024 08:59-0400 Systolic blood pressure 118 mm[Hg] Angie Haagen BIOINFORMATICS SOFTWARE ENGINEER.WEIGHT ANALYST Work Phone: [facility] 08-21-2024 10:19-0500 Body mass index (BMI) [Ratio] 25.03 kg/m2 Quita Williamsonle BIOINFORMATICS SOFTWARE ENGINEER.WEIGHT ANALYST Work Phone: [facility] 08-21-2024 10:19-0500 Body weight 64.1 kg Quita Barth BIOINFORMATICS SOFTWARE ENGINEER.WEIGHT ANALYST Work Phone: [facility] 08-21-2024 10:19-0500 Heart rate 73 /min Quita Williamsonle BIOINFORMATICS SOFTWARE ENGINEER.WEIGHT ANALYST Work Phone: [facility] 08-21-2024 10:19-0500 SaO2% (BldA) [Mass fraction] 99 % Quita Barth BIOINFORMATICS SOFTWARE ENGINEER.WEIGHT ANALYST Work Phone: [facility] 08-08-2024 15:40-0500 Diastolic blood pressure 82 mm[Hg] Angie Haagen BIOINFORMATICS SOFTWARE ENGINEER.WEIGHT ANALYST Work Phone: [facility] 08-08-2024 15:40-0500 Heart rate 80 /min Angie Haagen BIOINFORMATICS SOFTWARE ENGINEER.WEIGHT ANALYST Work Phone: [facility] 08-08-2024 15:40-0500 Respiratory rate 16 /min Angie Haagen BIOINFORMATICS SOFTWARE ENGINEER.WEIGHT ANALYST Work Phone: [facility] 08-08-2024 15:40-0500 Systolic blood pressure 124 mm[Hg] Angie Haagen BIOINFORMATICS SOFTWARE ENGINEER.WEIGHT ANALYST Work Phone: [facility] 07-17-2024 09:14-0500 Diastolic blood pressure 78 mm[Hg] Angie Haagen BIOINFORMATICS SOFTWARE ENGINEER.WEIGHT ANALYST Work Phone: [facility] 07-17-2024 09:14-0500 Heart rate 88 /min Angie Haagen BIOINFORMATICS SOFTWARE ENGINEER.WEIGHT ANALYST Work Phone: [facility] 07-17-2024 09:14-0500 Respiratory rate 16 /min Angie Haagen BIOINFORMATICS SOFTWARE ENGINEER.WEIGHT ANALYST Work Phone: [facility] 07-17-2024 09:14-0500 Systolic blood pressure 112 mm[Hg] Angie Haagen BIOINFORMATICS SOFTWARE ENGINEER.WEIGHT ANALYST Work Phone: [facility] 06-26-2024 14:23-0500 Body mass index (BMI) [Ratio] 26.32 kg/m2 Quita Barth BIOINFORMATICS SOFTWARE ENGINEER.WEIGHT ANALYST Work Phone: [facility] 06-26-2024 14:23-0500 Body weight 67.4 kg Quita Barth BIOINFORMATICS SOFTWARE ENGINEER.WEIGHT ANALYST Work Phone: [facility] 06-26-2024 14:23-0500 Heart rate 77 /min Quita Barth BIOINFORMATICS SOFTWARE ENGINEER.WEIGHT ANALYST Work Phone: [facility] 06-26-2024 14:23-0500 SaO2% (BldA) [Mass fraction] 97 % Quita Barth BIOINFORMATICS SOFTWARE ENGINEER.WEIGHT ANALYST Work Phone: [facility] 04-16-2024 08:14-0400 Diastolic blood pressure 66 mm[Hg] Angie Haagen BIOINFORMATICS SOFTWARE ENGINEER.WEIGHT ANALYST Work Phone: [facility] 04-16-2024 08:14-0400 Heart rate 89 /min Angie Haagen BIOINFORMATICS SOFTWARE ENGINEER.WEIGHT ANALYST Work Phone: [facility] 04-16-2024 08:14-0400 Respiratory rate 16 /min Angie Haagen BIOINFORMATICS SOFTWARE ENGINEER.WEIGHT ANALYST Work Phone: [facility] 04-16-2024 08:14-0400 SaO2% (BldA) [Mass fraction] 96 % Angie Haagen BIOINFORMATICS SOFTWARE ENGINEER.WEIGHT ANALYST Work Phone: [facility] 04-16-2024 08:14-0400 Systolic blood pressure 110 mm[Hg] Angie Haagen BIOINFORMATICS SOFTWARE ENGINEER.WEIGHT ANALYST Work Phone: [facility] 04-02-2024 15:09-0400 Body temperature 98.01 [degF] Angie Haagen BIOINFORMATICS SOFTWARE ENGINEER.WEIGHT ANALYST Work Phone: [facility] 04-02-2024 15:09-0400 SaO2% (BldA) [Mass fraction] 98 % Angie Haagen BIOINFORMATICS SOFTWARE ENGINEER.WEIGHT ANALYST Work Phone: [facility] Comment on above: RA 04-02-2024 14:57-0400 Diastolic blood pressure 92 mm[Hg] Angie Haagen BIOINFORMATICS SOFTWARE ENGINEER.WEIGHT ANALYST Work Phone: [facility] 04-02-2024 14:57-0400 Heart rate 78 /min Angie Haagen BIOINFORMATICS SOFTWARE ENGINEER.WEIGHT ANALYST Work Phone: [facility] 04-02-2024 14:57-0400 Respiratory rate 16 /min Angie Haagen BIOINFORMATICS SOFTWARE ENGINEER.WEIGHT ANALYST Work Phone: [facility] 04-02-2024 14:57-0400 Systolic blood pressure 148 mm[Hg] Angie Haagen BIOINFORMATICS SOFTWARE ENGINEER.WEIGHT ANALYST Work Phone: [facility] 03-15-2024 09:21-0400 Body mass index (BMI) [Ratio] 26.13 kg/m2 Quita Barth BIOINFORMATICS SOFTWARE ENGINEER.WEIGHT ANALYST Work Phone: [facility] 03-15-2024 09:21-0400 Body weight 66.9 kg Quita Barth BIOINFORMATICS SOFTWARE ENGINEER.WEIGHT ANALYST Work Phone: [facility] 03-15-2024 09:21-0400 Heart rate 73 /min Quitaceci Barth BIOINFORMATICS SOFTWARE ENGINEER.WEIGHT ANALYST Work Phone: [facility] 03-15-2024 09:21-0400 SaO2% (BldA) [Mass fraction] 100 % Quita Barth BIOINFORMATICS SOFTWARE ENGINEER.WEIGHT ANALYST Work Phone: [facility] 01-27-2024 12:04-0400 Body mass index (BMI) [Ratio] 26.09 kg/m2 Salo [place]aird MD Work Phone: [facility] 01-27-2024 12:04-0400 Body temperature 97.81 [degF] Salo Baird MD Work Phone: [facility] 01-27-2024 12:04-0400 Body weight 66.8 kg Salo Baird MD Work Phone: [facility] 01-27-2024 12:04-0400 Diastolic blood pressure 79 mm[Hg] Salo Baird MD Work Phone: [facility] 01-27-2024 12:04-0400 Heart rate 77 /min Salo Baird MD Work Phone: [facility] 01-27-2024 12:04-0400 Respiratory rate 18 /min Salo Baird MD Work Phone: [facility] 01-27-2024 12:04-0400 SaO2% (BldA) [Mass fraction] 99 % Salo Baird MD Work Phone: [facility] 01-27-2024 12:04-0400 Systolic blood pressure 151 mm[Hg] Salo Baird MD Work Phone: [facility] 01-02-2024 13:05-0400 Diastolic blood pressure 72 mm[Hg] Angie Haagen BIOINFORMATICS SOFTWARE ENGINEER.WEIGHT ANALYST Work Phone: [facility] 01-02-2024 13:05-0400 Heart rate 74 /min Angie Haagen BIOINFORMATICS SOFTWARE ENGINEER.WEIGHT ANALYST Work Phone: [facility] 01-02-2024 13:05-0400 Respiratory rate 16 /min Angie Haagen BIOINFORMATICS SOFTWARE ENGINEER.WEIGHT ANALYST Work Phone: [facility] 01-02-2024 13:05-0400 SaO2% (BldA) [Mass fraction] 93 % Angie Haagen BIOINFORMATICS SOFTWARE ENGINEER.WEIGHT ANALYST Work Phone: [facility] 01-02-2024 13:05-0400 Systolic blood pressure 112 mm[Hg] Angie Haagen BIOINFORMATICS SOFTWARE ENGINEER.WEIGHT ANALYST Work Phone: [facility] 11-04-2023 14:07-0400 Diastolic blood pressure 78 mm[Hg] Angie Haagen BIOINFORMATICS SOFTWARE ENGINEER.WEIGHT ANALYST Work Phone: [facility] 11-04-2023 14:07-0400 Heart rate 100 /min Angie Haagen BIOINFORMATICS SOFTWARE ENGINEER.WEIGHT ANALYST Work Phone: [facility] 11-04-2023 14:07-0400 Respiratory rate 16 /min Angie Haagen BIOINFORMATICS SOFTWARE ENGINEER.WEIGHT ANALYST Work Phone: [facility] 11-04-2023 14:07-0400 Systolic blood pressure 126 mm[Hg] Angie Haagen BIOINFORMATICS SOFTWARE ENGINEER.WEIGHT ANALYST Work Phone: [facility] 10-31-2023 11:12-0400 Body weight 64.05 kg Angie Haagen BIOINFORMATICS SOFTWARE ENGINEER.WEIGHT ANALYST Work Phone: [facility] 10-31-2023 11:12-0400 Diastolic blood pressure 72 mm[Hg] Angie Haagen BIOINFORMATICS SOFTWARE ENGINEER.WEIGHT ANALYST Work Phone: [facility] 10-31-2023 11:12-0400 Heart rate 66 /min Angie Haagen BIOINFORMATICS SOFTWARE ENGINEER.WEIGHT ANALYST Work Phone: [facility] 10-31-2023 11:12-0400 Respiratory rate 16 /min Angie Haagen BIOINFORMATICS SOFTWARE ENGINEER.WEIGHT ANALYST Work Phone: [facility] 10-31-2023 11:12-0400 SaO2% (BldA) [Mass fraction] 98 % Angie Haagen BIOINFORMATICS SOFTWARE ENGINEER.WEIGHT ANALYST Work Phone: [facility] 10-31-2023 11:12-0400 Systolic blood pressure 120 mm[Hg] Angie Haagen BIOINFORMATICS SOFTWARE ENGINEER.WEIGHT ANALYST Work Phone: [facility] 07-12-2023 09:56-0500 Diastolic blood pressure 72 mm[Hg] Angie Haagen BIOINFORMATICS SOFTWARE ENGINEER.WEIGHT ANALYST Work Phone: [facility] 07-12-2023 09:56-0500 Heart rate 74 /min Angie Haagen BIOINFORMATICS SOFTWARE ENGINEER.WEIGHT ANALYST Work Phone: [facility] 07-12-2023 09:56-0500 Respiratory rate 16 /min Angie Haagen BIOINFORMATICS SOFTWARE ENGINEER.WEIGHT ANALYST Work Phone: [facility] 07-12-2023 09:56-0500 SaO2% (BldA) [Mass fraction] 97 % Angie Haagen BIOINFORMATICS SOFTWARE ENGINEER.WEIGHT ANALYST Work Phone: [facility] 07-12-2023 09:56-0500 Systolic blood pressure 132 mm[Hg] Angie Haagen BIOINFORMATICS SOFTWARE ENGINEER.WEIGHT ANALYST Work Phone: [facility] 06-18-2023 12:14-0400 Body temperature 98 [degF] HOUSE SUPERINTENDENT-C Angie Haagen HOUSE SUPERINTENDENT Work Phone: [facility] 06-18-2023 12:14-0400 Diastolic blood pressure 62 mm[Hg] HOUSE SUPERINTENDENT-C Angie Haagen HOUSE SUPERINTENDENT Work Phone: [facility] 06-18-2023 12:14-0400 Heart rate 75 /min HOUSE SUPERINTENDENT-C Angie Haagen HOUSE SUPERINTENDENT Work Phone: [facility] 06-18-2023 12:14-0400 Respiratory rate 16 /min HOUSE SUPERINTENDENT-C Angie Haagen HOUSE SUPERINTENDENT Work Phone: 3([phone] [place] [address] 06-18-2023 12:14-0400 SaO2% (BldA) [Mass fraction] 96 % HOUSE SUPERINTENDENT-C Angie Aguirre HOUSE SUPERINTENDENT Work Phone: 0([phone])[phone] [place] [address] 06-18-2023 12:14-0400 Systolic blood pressure 124 mm[Hg] HOUSE SUPERINTENDENT-Justin Aguirre HOUSE SUPERINTENDENT Work Phone: 8(094)680-182814 [place] [address] 06-17-2023 09:45-0400 Inhaled oxygen flow rate 2 L/min HOUSE SUPERINTENDENT-C Angie Aguirre HOUSE SUPERINTENDENT Work Phone: 8(781)355-662714 [place] [address] 06-16-2023 15:32-0400 Body height 160.02 cm HOUSE SUPERINTENDENT-C Angie Aguirre HOUSE SUPERINTENDENT Work Phone: 4([phone])365-137514 [place] [address] 06-16-2023 15:32-0400 Body mass index (BMI) [Ratio] 25.3 kg/m2 HOUSE SUPERINTENDENT-Justin Aguirre HOUSE SUPERINTENDENT Work Phone: 7(056)931-907814 [place] [address] 06-16-2023 15:32-0400 Body weight 64.98 kg HOUSE SUPERINTENDENT-C Angie Aguirre HOUSE SUPERINTENDENT Work Phone: 4(073)330-793814 [place] [address] 06-16-2023 14:49-0400 Diastolic blood pressure 69 mm[Hg] HOUSE SUPERINTENDENT-C Angie Aguirre HOUSE SUPERINTENDENT Work Phone: 5([phone])728-445214 [place] [address] 06-16-2023 14:49-0400 Heart rate 71 /min HOUSE SUPERINTENDENT-C Angie Aguirre HOUSE SUPERINTENDENT Work Phone: 2(253)[phone] [place] [address] 06-16-2023 14:49-0400 Respiratory rate 16 /min HOUSE SUPERINTENDENT-C Angie Aguirre HOUSE SUPERINTENDENT Work Phone: 3([phone] [place] [address] 06-16-2023 14:49-0400 SaO2% (BldA) [Mass fraction] 98 % HOUSE SUPERINTENDENT-Justin Aguirre HOUSE SUPERINTENDENT Work Phone: 7(367)867-289814 [place] [address] 06-16-2023 14:49-0400 Systolic blood pressure 119 mm[Hg] HOUSE SUPERINTENDENT-C Angie Aguirre HOUSE SUPERINTENDENT Work Phone: 1(333)[phone] [place] [address] 06-16-2023 13:00-0400 Body temperature 98.8 [degF] HOUSE SUPERINTENDENT-C Angie Aguirre HOUSE SUPERINTENDENT Work Phone: [facility] 06-16-2023 09:39-0400 Body height 160.02 cm HOUSE SUPERINTENDENT-C Angie Aguirre HOUSE SUPERINTENDENT Work Phone: [facility] 06-16-2023 09:39-0400 Body mass index (BMI) [Ratio] 25.3 kg/m2 HOUSE SUPERINTENDENT-Justin Aguirre HOUSE SUPERINTENDENT Work Phone: [facility] 06-16-2023 09:39-0400 Body weight 64.98 kg HOUSE SUPERINTENDENT-C Angie Aguirre HOUSE SUPERINTENDENT Work Phone: [facility] 06-08-2023 07:55-0400 Body weight 66.5 kg Vivienne Viera APRN.WEIGHT ANALYST Work Phone: [facility] 06-08-2023 07:55-0400 Diastolic blood pressure 68 mm[Hg] Vivienne Viera APRN.WEIGHT ANALYST Work Phone: [facility] 06-08-2023 07:55-0400 Heart rate 78 /min Vivienne Viera APRN.WEIGHT ANALYST Work Phone: [facility] 06-08-2023 07:55-0400 Respiratory rate 16 /min Vivienne Viera APRN.WEIGHT ANALYST Work Phone: [facility] 06-08-2023 07:55-0400 SaO2% (BldA) [Mass fraction] 98 % Vivienne Viera APRN.WEIGHT ANALYST Work Phone: [facility] 06-08-2023 07:55-0400 Systolic blood pressure 110 mm[Hg] Vivienne Viera APRN.WEIGHT ANALYST Work Phone: [facility] 06-06-2023 09:26-0400 Body weight 66.22 kg Angie Aguirre APRN.WEIGHT ANALYST Work Phone: [facility] 06-06-2023 09:26-0400 Diastolic blood pressure 72 mm[Hg] Angie Aguirre APRN.WEIGHT ANALYST Work Phone: [facility] 06-06-2023 09:26-0400 Heart rate 89 /min Angie Aguirre BIOINFORMATICS SOFTWARE ENGINEER.WEIGHT ANALYST Work Phone: [facility] 06-06-2023 09:26-0400 Respiratory rate 16 /min Angie Aguirre BIOINFORMATICS SOFTWARE ENGINEER.WEIGHT ANALYST Work Phone: [facility] 06-06-2023 09:26-0400 SaO2% (BldA) [Mass fraction] 98 % Angie Aguirre BIOINFORMATICS SOFTWARE ENGINEER.WEIGHT ANALYST Work Phone: [facility] 06-06-2023 09:26-0400 Systolic blood pressure 122 mm[Hg] Angie Aguirre BIOINFORMATICS SOFTWARE ENGINEER.WEIGHT ANALYST Work Phone: [facility] 05-18-2023 09:54-0400 Body mass index (BMI) [Ratio] 25.2 kg/m2 HOUSE SUPERINTENDENT-C Angie Aguirre HOUSE SUPERINTENDENT Work Phone: [facility] 05-18-2023 09:54-0400 Body weight 65.77 kg HOUSE SUPERINTENDENT-C Angie Aguirre HOUSE SUPERINTENDENT Work Phone: [facility] 05-18-2023 09:54-0400 Diastolic blood pressure 64 mm[Hg] HOUSE SUPERINTENDENT-C Angie Aguirre HOUSE SUPERINTENDENT Work Phone: [facility] 05-18-2023 09:54-0400 Systolic blood pressure 122 mm[Hg] HOUSE SUPERINTENDENT-C Angie Aguirre HOUSE SUPERINTENDENT Work Phone: [facility] 03-04-2023 09:50-0400 Respiratory rate 16 /min Ross Cobb MD Work Phone: [facility] 03-04-2023 09:10-0400 Diastolic blood pressure 67 mm[Hg] Ross Cobb MD Work Phone: [facility] 03-04-2023 09:10-0400 Heart rate 67 /min Ross Cobb MD Work Phone: [facility] 03-04-2023 09:10-0400 SaO2% (BldA) [Mass fraction] 95 % Ross Cobb MD Work Phone: [facility] 03-04-2023 09:10-0400 Systolic blood pressure 128 mm[Hg] Ross Cobb MD Work Phone: [facility] 03-04-2023 08:17-0400 Body temperature 97.5 [degF] Ross Cobb MD Work Phone: [facility] 03-04-2023 08:17-0400 Body weight 63.9 kg Ross oCbb MD Work Phone: [facility] 12-30-2022 08:50-0400 Body height 160 cm Delia Kalka PA-C Work Phone: [facility] 12-30-2022 08:50-0400 Body weight 63.05 kg Delia Kalka PA-C Work Phone: [facility] 12-30-2022 08:50-0400 Diastolic blood pressure 72 mm[Hg] Delia Kalka PA-C Work Phone: [facility] 12-30-2022 08:50-0400 Heart rate 81 /min Delia Kalka PA-C Work Phone: [facility] 12-30-2022 08:50-0400 Systolic blood pressure 110 mm[Hg] Delia Kalka PA-C Work Phone: [facility] 11-23-2022 15:03-0400 Body weight 64.86 kg Quita Barth BIOINFORMATICS SOFTWARE ENGINEER.WEIGHT ANALYST Work Phone: [facility] 11-23-2022 15:03-0400 Heart rate 85 /min Quita Barth BIOINFORMATICS SOFTWARE ENGINEER.WEIGHT ANALYST Work Phone: [facility] 11-23-2022 15:03-0400 SaO2% (BldA) [Mass fraction] 97 % Quita Barth BIOINFORMATICS SOFTWARE ENGINEER.WEIGHT ANALYST Work Phone: [facility] 11-22-2022 10:59-0400 Diastolic blood pressure 74 mm[Hg] Angie Aguirre BIOINFORMATICS SOFTWARE ENGINEER.WEIGHT ANALYST Work Phone: [facility] 11-22-2022 10:59-0400 Heart rate 64 /min Angie Haagen BIOINFORMATICS SOFTWARE ENGINEER.WEIGHT ANALYST Work Phone: [facility] 11-22-2022 10:59-0400 Respiratory rate 18 /min Angie Haagen BIOINFORMATICS SOFTWARE ENGINEER.WEIGHT ANALYST Work Phone: [facility] 11-22-2022 10:59-0400 SaO2% (BldA) [Mass fraction] 97 % Angei Haagen BIOINFORMATICS SOFTWARE ENGINEER.WEIGHT ANALYST Work Phone: [facility] 11-22-2022 10:59-0400 Systolic blood pressure 122 mm[Hg] Angie Haagen BIOINFORMATICS SOFTWARE ENGINEER.WEIGHT ANALYST Work Phone: [facility] 11-15-2022 10:30-0400 Diastolic blood pressure 61 mm[Hg] Elizabeth Sampson MD Work Phone: [facility] 11-15-2022 10:30-0400 Heart rate 74 /min Elizabeth Sampson MD Work Phone: [facility] 11-15-2022 10:30-0400 Respiratory rate 18 /min Elizabeth Sampson MD Work Phone: [facility] 11-15-2022 10:30-0400 SaO2% (BldA) [Mass fraction] 98 % Elizabeth Sampson MD Work Phone: [facility] 11-15-2022 10:30-0400 Systolic blood pressure 120 mm[Hg] Elizabeth Sampson MD Work Phone: [facility] 11-15-2022 09:37-0400 Body height 160 cm Elizabeth Sampson MD Work Phone: [facility] 11-15-2022 09:37-0400 Body temperature 97.2 [degF] Elizaebth Sampson MD Work Phone: [facility] 11-15-2022 09:37-0400 Body weight 62.14 kg Elizabeth Sampson MD Work Phone: [facility] 08-19-2022 13:59-0500 Body weight 65.77 kg Shira Tannhof BIOINFORMATICS SOFTWARE ENGINEER.WEIGHT ANALYST Work Phone: [facility] 08-19-2022 13:59-0500 Diastolic blood pressure 66 mm[Hg] Shira Grewalhof BIOINFORMATICS SOFTWARE ENGINEER.WEIGHT ANALYST Work Phone: [facility] 08-19-2022 13:59-0500 Heart rate 69 /min Shira Royf BIOINFORMATICS SOFTWARE ENGINEER.WEIGHT ANALYST Work Phone: [facility] 08-19-2022 13:59-0500 Respiratory rate 16 /min Shira Grewalhof BIOINFORMATICS SOFTWARE ENGINEER.WEIGHT ANALYST Work Phone: [facility] 08-19-2022 13:59-0500 SaO2% (BldA) [Mass fraction] 96 % Shira Royf BIOINFORMATICS SOFTWARE ENGINEER.WEIGHT ANALYST Work Phone: [facility] 08-19-2022 13:59-0500 Systolic blood pressure 122 mm[Hg] Shiralashonda Royf BIOINFORMATICS SOFTWARE ENGINEER.WEIGHT ANALYST Work Phone: [facility] 08-09-2022 09:11-0500 Body height 161.[address] Carmina Grissom Work Phone: [facility] 08-09-2022 09:11-0500 Body mass index (BMI) [Ratio] 25.4 kg/m2 Dr. Carmina Grissom Work Phone: [facility] 08-09-2022 09:11-0500 Body temperature 97.1 [degF] Dr. Carmina Grissom Work Phone: [facility] 08-09-2022 09:11-0500 Body weight 66.[address] Carmina Grissom Work Phone: [facility] 08-09-2022 09:11-0500 Diastolic blood pressure 74 mm[Hg] Dr. Carmina Grissom Work Phone: [facility] 08-09-2022 09:11-0500 Heart rate 76 /min Dr. Carmina Grissom Work Phone: [facility] 08-09-2022 09:11-0500 Respiratory rate 18 /min Dr. Carmina Grissom Work Phone: [facility] 08-09-2022 09:11-0500 Systolic blood pressure 128 mm[Hg] Dr. Carmina Grissom Work Phone: [facility] 07-26-2022 09:05-0500 Body height 160 cm Delia Kalka PA-C Work Phone: [facility] 07-26-2022 09:05-0500 Body weight 65.86 kg Delia Kalka PA-C Work Phone: [facility] 07-26-2022 09:05-0500 Diastolic blood pressure 74 mm[Hg] Delia Kalka PA-C Work Phone: [facility] 07-26-2022 09:05-0500 Heart rate 80 /min Delia Kalka PA-C Work Phone: [facility] 07-26-2022 09:05-0500 Systolic blood pressure 122 mm[Hg] Delia Kalka PA-C Work Phone: [facility] 06-11-2022 10:22-0400 Body height 161.[address] Carmina Grissom Work Phone: [facility] Work Phone: 06-11-2022 10:22-0400 Body mass index (BMI) [Ratio] 24.6 kg/m2 Dr. Carmina Grissom Work Phone: [facility] 06-11-2022 10:22-0400 Body temperature 97.4 [degF] Dr. Carmina Grissom Work Phone: [facility] 06-11-2022 10:22-0400 Body weight 64.[address] Carmina Grissom Work Phone: [facility] 06-11-2022 10:22-0400 Diastolic blood pressure 64 mm[Hg] Dr. Carmina Grissom Work Phone: [facility] 06-11-2022 10:22-0400 Heart rate 86 /min Dr. Carmina Grissom Work Phone: [facility] 06-11-2022 10:22-0400 Respiratory rate 18 /min Dr. Carmina Grissom Work Phone: [facility] 06-11-2022 10:22-0400 SaO2% (BldA) [Mass fraction] 99 % Dr. Carmina Grissom Work Phone: [facility] 06-11-2022 10:22-0400 Systolic blood pressure 102 mm[Hg] Dr. Carmina Grissom Work Phone: [facility] 05-28-2022 09:13-0400 Body mass index (BMI) [Ratio] 25.2 kg/m2 Dr. Carmina Grissom Work Phone: [facility] 05-28-2022 09:13-0400 Body temperature 97.7 [degF] Dr. Carmina Grissom Work Phone: [facility] 05-28-2022 09:13-0400 Body weight 65.[address] Carmina Grissom Work Phone: [facility] 05-28-2022 09:13-0400 Diastolic blood pressure 73 mm[Hg] Dr. Carmina Grissom Work Phone: [facility] 05-28-2022 09:13-0400 Heart rate 86 /min Dr. Carmina Grissom Work Phone: [facility] 05-28-2022 09:13-0400 Respiratory rate 18 /min Dr. Carmina Grissom Work Phone: [facility] 05-28-2022 09:13-0400 Systolic blood pressure 112 mm[Hg] Dr. Carmina Grissom Work Phone: [facility] 05-25-2022 08:56-0400 Body weight 66.09 kg Quita Barth BIOINFORMATICS SOFTWARE ENGINEER.WEIGHT ANALYST Work Phone: [facility] 05-25-2022 08:56-0400 Heart rate 73 /min Quita Barth BIOINFORMATICS SOFTWARE ENGINEER.WEIGHT ANALYST Work Phone: [facility] 05-25-2022 08:56-0400 SaO2% (BldA) [Mass fraction] 99 % Quita Barth BIOINFORMATICS SOFTWARE ENGINEER.WEIGHT ANALYST Work Phone: [facility] 03-03-2022 08:06-0400 Body height 160 cm Quita Barth BIOINFORMATICS SOFTWARE ENGINEER.WEIGHT ANALYST Work Phone: [facility] 03-03-2022 08:06-0400 Body weight 65.45 kg Quita Barth BIOINFORMATICS SOFTWARE ENGINEER.WEIGHT ANALYST Work Phone: [facility] 03-03-2022 08:06-0400 Heart rate 75 /min Quita Barth BIOINFORMATICS SOFTWARE ENGINEER.WEIGHT ANALYST Work Phone: [facility] 03-03-2022 08:06-0400 SaO2% (BldA) [Mass fraction] 98 % Quita Barth BIOINFORMATICS SOFTWARE ENGINEER.WEIGHT ANALYST Work Phone: [facility] 01-06-2022 08:04-0400 Body weight 64.68 kg Quita Barth BIOINFORMATICS SOFTWARE ENGINEER.WEIGHT ANALYST Work Phone: [facility] 01-06-2022 08:04-0400 Heart rate 77 /min Quita Barth BIOINFORMATICS SOFTWARE ENGINEER.WEIGHT ANALYST Work Phone: [facility] 01-06-2022 08:04-0400 SaO2% (BldA) [Mass fraction] 98 % Quita Barth BIOINFORMATICS SOFTWARE ENGINEER.WEIGHT ANALYST Work Phone: [facility] 11-30-2021 13:02-0400 Body height 161.3 cm Quita Barth BIOINFORMATICS SOFTWARE ENGINEER.WEIGHT ANALYST Work Phone: [facility] 11-30-2021 13:02-0400 Body weight 64.82 kg Quita Barth BIOINFORMATICS SOFTWARE ENGINEER.WEIGHT ANALYST Work Phone: [facility] 06-06-2017 13:27-0400 BMI (Body Mass Index) 25.79 kg/m2 [facility] Work Phone: 06-06-2017 13:27-0400 Body Temperature 98.5 [degF] Jamila Fry [facility] Work Phone: 06-06-2017 13:27-0400 BP Diastolic 77 mm[Hg] Jamila Husain [facility] Work Phone: 06-06-2017 13:27-0400 BP Systolic 135 mm[Hg] [facility] Work Phone: 06-06-2017 13:27-0400 Height 165.1 [facility] Work Phone: 06-06-2017 13:27-0400 Pulse (Heart Rate) 82 /min Jamila Husain [facility] Work Phone: 06-06-2017 13:27-0400 Respiratory Rate 14 /min Jamila Husain [facility] [address] Work Phone: 06-06-2017 13:27-0400 Weight 70.31 kg Jamila Husain [facility] Work Phone: 12-10-2016 09:54-0400 BMI (Body Mass Index) 26.33 kg/m2 Rakel Fast [facility] Work Phone: 12-10-2016 09:54-0400 Body Temperature 97.2 [degF] Rakel [facility] Work Phone: Comment on above: Method: Temporal 12-10-2016 09:54-0400 Body weight 68.49 kg Rakel Fast [facility] Work Phone: 12-10-2016 09:54-0400 BP Diastolic 74 mm[Hg] Rakel Fast [facility] Work Phone: Comment on above: Patient Position: Sitting; Cuff Location : Left Arm; Cuff Size: Standard 12-10-2016 09:54-0400 BP Systolic 126 mm[Hg] Rakel Fast [facility] Work Phone: Comment on above: Patient Position: Sitting; Cuff Location : Left Arm; Cuff Size: Standard 12-10-2016 09:54-0400 BSA (Body Surface Area) 1.73 m2 Rakel Fast [facility] Work Phone: 12-10-2016 09:54-0400 Height 161.29 cm Rakel Fast [facility] Work Phone: 12-10-2016 09:54-0400 Pulse (Heart Rate) 74 /min Rakel Fast [facility] Work Phone: Comment on above: Pattern: Regular 12-10-2016 09:54-0400 Pulse Oximetry 97 % Rakel Fast [facility] Work Phone: Comment on above: Room air 12-10-2016 09:54-0400 Respiratory Rate 16 /min Rakel Fast [facility] Work Phone: Comment on above: Pattern: Unlabored 08-17-2016 09:14-0500 BMI (Body Mass Index) 26.85 kg/m2 Rakel Miki [facility] Work Phone: 08-17-2016 09:14-0500 Body Temperature 97.8 [degF] Rakel [facility] Work Phone: 08-17-2016 09:14-0500 Body weight 69.85 kg Rakel Fast [facility] Work Phone: 08-17-2016 09:14-0500 BP Diastolic 80 mm[Hg] Rakel Fast [facility] Work Phone: Comment on above: Patient Position: Sitting; Cuff Location : Left Arm; Cuff Size: Standard 08-17-2016 09:14-0500 BP Systolic 122 mm[Hg] Rakel Fast [facility] Work Phone: Comment on above: Patient Position: Sitting; Cuff Location : Left Arm; Cuff Size: Standard 08-17-2016 09:14-0500 BSA (Body Surface Area) 1.74 m2 Rakel [facility] Work Phone: 08-17-2016 09:14-0500 Height 161.29 cm Rakel Fast [facility] Work Phone: 08-17-2016 09:14-0500 Pulse (Heart Rate) 71 /min Rakel Fast [facility] Work Phone: Comment on above: Pattern: Regular 08-17-2016 09:14-0500 Pulse Oximetry 97 % Rakel Fast [facility] Work Phone: Comment on above: Room air 08-17-2016 09:14-0500 Respiratory Rate 17 /min Rakel Fast [facility] Work Phone: Comment on above: Pattern: Unlabored 07-19-2016 09:42-0500 BP Diastolic 72 mm[Hg] Rakel Fast [facility] Work Phone: Comment on above: Patient Position: Sitting 07-19-2016 09:42-0500 BP Systolic 132 mm[Hg] Rakel Fast [facility] Work Phone: Comment on above: Patient Position: Sitting 07-19-2016 08:40-0500 BMI (Body Mass Index) 26.33 kg/m2 Rakel Fast [facility] Work Phone: 07-19-2016 08:40-0500 Body Temperature 97.4 [degF] Rakel Fast [facility] Work Phone: Comment on above: Method: Temporal 07-19-2016 08:40-0500 Body weight 68.49 kg Rakel Fast [facility] Work Phone: 07-19-2016 08:40-0500 BP Diastolic 80 mm[Hg] Rakel Fast [facility] Work Phone: Comment on above: Patient Position: Sitting; Cuff Location : Left Arm; Cuff Size: Standard 07-19-2016 08:40-0500 BP Systolic 140 mm[Hg] Rakel Fast [facility] Work Phone: Comment on above: Patient Position: Sitting; Cuff Location : Left Arm; Cuff Size: Standard 07-19-2016 08:40-0500 BSA (Body Surface Area) 1.73 m2 Rakel Fast [facility] Work Phone: 07-19-2016 08:40-0500 Height 161.29 cm Rakel Fast [facility] Work Phone: 07-19-2016 08:40-0500 Pulse (Heart Rate) 64 /min Rakel Fast [facility] Work Phone: Comment on above: Pattern: Regular 07-19-2016 08:40-0500 Pulse Oximetry 97 % Rakel Fast [facility] Work Phone: Comment on above: Room air 07-19-2016 08:40-0500 Respiratory Rate 15 /min Rakel Fast [facility] Work Phone: Comment on above: Pattern: Unlabored 05-28-2016 10:38-0400 BMI (Body Mass Index) 25.63 kg/m2 Rakel Fast [facility] Work Phone: 05-28-2016 10:38-0400 Body Temperature 97.4 [degF] Rakel Fast [facility] Work Phone: Comment on above: Method: Temporal 05-28-2016 10:38-0400 Body weight 66.68 kg Rakel Fast [facility] Work Phone: 05-28-2016 10:38-0400 BP Diastolic 86 mm[Hg] Rakel Fast [facility] Work Phone: Comment on above: Patient Position: Sitting; Cuff Location : Left Arm; Cuff Size: Standard 05-28-2016 10:38-0400 BP Systolic 130 mm[Hg] [facility] Work Phone: Comment on above: Patient Position: Sitting; Cuff Location : Left Arm; Cuff Size: Standard 05-28-2016 10:38-0400 BSA (Body Surface Area) 1.71 m2 [facility] Work Phone: 05-28-2016 10:38-0400 Height 161.29 cm [facility] Work Phone: 05-28-2016 10:38-0400 Pulse (Heart Rate) 78 /min [facility] Work Phone: Comment on above: Pattern: Regular 05-28-2016 10:38-0400 Pulse Oximetry 98 % [facility] Work Phone: Comment on above: Room air 05-28-2016 10:38-0400 Respiratory Rate 15 /min [facility] Work Phone: Comment on above: Pattern: Unlabored 04-19-2016 08:15-0400 BMI (Body Mass Index) 25.63 kg/m2 [facility] Work Phone: 04-19-2016 08:15-0400 Body Temperature 97.2 [degF] [facility] Work Phone: Comment on above: Method: Temporal 04-19-2016 08:15-0400 Body weight 66.68 kg [facility] Work Phone: 04-19-2016 08:15-0400 BP Diastolic 76 mm[Hg] [facility] Work Phone: Comment on above: Patient Position: Sitting; Cuff Location : Left Arm; Cuff Size: Standard 04-19-2016 08:15-0400 BP Systolic 122 mm[Hg] [facility] Work Phone: Comment on above: Patient Position: Sitting; Cuff Location : Left Arm; Cuff Size: Standard 04-19-2016 08:15-0400 BSA (Body Surface Area) 1.71 m2 [facility] Work Phone: 04-19-2016 08:15-0400 Height 161.29 cm [facility] Work Phone: 04-19-2016 08:15-0400 Pulse (Heart Rate) 86 /min [facility] Work Phone: Comment on above: Pattern: Regular 04-19-2016 08:15-0400 Pulse Oximetry 97 % [facility] Work Phone: Comment on above: Room air 04-19-2016 08:15-0400 Respiratory Rate 16 /min [facility] Work Phone: Comment on above: Pattern: Unlabored 03-22-2016 11:42-0400 BMI (Body Mass Index) 25.28 kg/m2 [facility] Work Phone: 03-22-2016 11:42-0400 Body Temperature 97.7 [degF] [facility] Work Phone: Comment on above: Method: Temporal 03-22-2016 11:42-0400 Body weight 65.77 kg [facility] Work Phone: 03-22-2016 11:42-0400 BP Diastolic 80 mm[Hg] [facility] Work Phone: Comment on above: Patient Position: Sitting; Cuff Location : Left Arm; Cuff Size: Standard 03-22-2016 11:42-0400 BP Systolic 120 mm[Hg] [facility] Work Phone: Comment on above: Patient Position: Sitting; Cuff Location : Left Arm; Cuff Size: Standard 03-22-2016 11:42-0400 BSA (Body Surface Area) 1.7 m2 [facility] Work Phone: 03-22-2016 11:42-0400 Height 161.29 cm [facility] Work Phone: 03-22-2016 11:42-0400 Pulse (Heart Rate) 74 /min [facility] Work Phone: Comment on above: Pattern: Regular 03-22-2016 11:42-0400 Pulse Oximetry 97 % [facility] Work Phone: Comment on above: Room air 03-22-2016 11:42-0400 Respiratory Rate 18 /min [facility] Work Phone: Comment on above: Pattern: Unlabored 02-12-2016 14:00-0400 BMI (Body Mass Index) 25.28 kg/m2 [facility] Work Phone: 02-12-2016 14:00-0400 Body Temperature 97.6 [degF] [facility] Work Phone: Comment on above: Method: Temporal 02-12-2016 14:00-0400 Body weight 65.77 kg [facility] Work Phone: 02-12-2016 14:00-0400 BP Diastolic 74 mm[Hg] [facility] Work Phone: Comment on above: Patient Position: Sitting; Cuff Location : Left Arm; Cuff Size: Standard 02-12-2016 14:00-0400 BP Systolic 120 mm[Hg] [facility] Work Phone: Comment on above: Patient Position: Sitting; Cuff Location : Left Arm; Cuff Size: Standard 02-12-2016 14:00-0400 BSA (Body Surface Area) 1.7 m2 [facility] Work Phone: 02-12-2016 14:00-0400 Height 161.29 cm [facility] Work Phone: 02-12-2016 14:00-0400 Pulse (Heart Rate) 76 /min [facility] Work Phone: Comment on above: Pattern: Regular 02-12-2016 14:00-0400 Pulse Oximetry 98 % [facility] Work Phone: Comment on above: Room air 02-12-2016 14:00-0400 Respiratory Rate 18 /min [facility] Work Phone: Comment on above: Pattern: Unlabored 10-20-2015 08:52-0500 BMI (Body Mass Index) 25.28 kg/m2 [facility]ak[facility] Work Phone: 10-20-2015 08:52-0500 Body Temperature 98.6 [degF] [facility] Work Phone: Comment on above: Method: Temporal 10-20-2015 08:52-0500 Body weight 65.77 kg Rakel [facility] Work Phone: 10-20-2015 08:52-0500 BP Diastolic 62 mm[Hg] Rakel [facility] Work Phone: Comment on above: Patient Position: Sitting; Cuff Location : Left Arm; Cuff Size: Standard 10-20-2015 08:52-0500 BP Systolic 110 mm[Hg] [facility] Work Phone: Comment on above: Patient Position: Sitting; Cuff Location : Left Arm; Cuff Size: Standard 10-20-2015 08:52-0500 BSA (Body Surface Area) 1.[address] [facility] Work Phone: 10-20-2015 08:52-0500 Height 161.29 cm Rakel Fast [facility] Work Phone: 10-20-2015 08:52-0500 Pulse (Heart Rate) 82 /min [facility] Work Phone: Comment on above: Pattern: Regular 10-20-2015 08:52-0500 Pulse Oximetry 98 % [facility] Work Phone: Comment on above: Room air 10-20-2015 08:52-0500 Respiratory Rate 15 /min [facility] Work Phone: Comment on above: Pattern: Unlabored 07-03-2015 10:44-0500 BMI (Body Mass Index) 25.28 kg/m2 [facility] Work Phone: 07-03-2015 10:44-0500 Body weight 65.77 kg Rakel Fast [facility] Work Phone: 07-03-2015 10:44-0500 BP Diastolic 82 mm[Hg] Rakel Fast [facility] Work Phone: Comment on above: Patient Position: Sitting; Cuff Location : Left Arm; Cuff Size: Large 07-03-2015 10:44-0500 BP Systolic 128 mm[Hg] Rakel Fast [facility] Work Phone: Comment on above: Patient Position: Sitting; Cuff Location : Left Arm; Cuff Size: Large 07-03-2015 10:44-0500 BSA (Body Surface Area) 1.7 m2 [facility] Work Phone: 07-03-2015 10:44-0500 Height 161.29 cm [facility] Work Phone: 07-03-2015 10:44-0500 Pulse (Heart Rate) 78 /min [facility] Work Phone: Comment on above: Pattern: Regular 07-03-2015 10:44-0500 Pulse Oximetry 95 % Rakel Fast [facility] Work Phone: Comment on above: Room air 07-03-2015 10:44-0500 Respiratory Rate 18 /min Rakel Fast [facility] Work Phone: Comment on above: Pattern: Unlabored 05-27-2015 11:02-0400 BMI (Body Mass Index) 25.28 kg/m2 [facility] Work Phone: 05-27-2015 11:02-0400 Body Temperature 98.8 [degF] Rakel Fast [facility] Work Phone: Comment on above: Method: Temporal 05-27-2015 11:02-0400 Body weight 65.77 kg [facility] Work Phone: 05-27-2015 11:02-0400 BP Diastolic 68 mm[Hg] Rakel Fast [facility] Work Phone: Comment on above: Patient Position: Sitting; Cuff Location : Left Arm; Cuff Size: Standard 05-27-2015 11:02-0400 BP Systolic 114 mm[Hg] [facility] Work Phone: Comment on above: Patient Position: Sitting; Cuff Location : Left Arm; Cuff Size: Standard 05-27-2015 11:02-0400 BSA (Body Surface Area) 1.7 m2 [facility] Work Phone: 05-27-2015 11:02-0400 Height 161.29 cm Rakel Fast [facility] Work Phone: 05-27-2015 11:02-0400 Pulse (Heart Rate) 72 /min [facility] Work Phone: Comment on above: Pattern: Regular 05-27-2015 11:02-0400 Pulse Oximetry 98 % [facility] Work Phone: Comment on above: Room air 05-27-2015 11:02-0400 Respiratory Rate 16 /min [facility] Work Phone: Comment on above: Pattern: Unlabored 05-01-2015 14:02-0400 BMI (Body Mass Index) 24.18 kg/m2 [facility] Work Phone: 05-01-2015 14:02-0400 Body Temperature 97.5 [degF] [facility] Work Phone: Comment on above: Method: Temporal 05-01-2015 14:02-0400 Body weight 64.41 kg [facility] Work Phone: 05-01-2015 14:02-0400 BP Diastolic 70 mm[Hg] [facility] Work Phone: Comment on above: Patient Position: Sitting; Cuff Location : Left Arm; Cuff Size: Standard 05-01-2015 14:02-0400 BP Systolic 116 mm[Hg] [facility] Work Phone: Comment on above: Patient Position: Sitting; Cuff Location : Left Arm; Cuff Size: Standard 05-01-2015 14:02-0400 BSA (Body Surface Area) 1.7 m2 [facility] Work Phone: 05-01-2015 14:02-0400 Height 163.19 cm [facility] Work Phone: 05-01-2015 14:02-0400 Pulse (Heart Rate) 70 /min [facility] Work Phone: Comment on above: Pattern: Regular 05-01-2015 14:02-0400 Pulse Oximetry 98 % [facility] Work Phone: Comment on above: Room air 04-09-2015 13:07-0400 BMI (Body Mass Index) 24.18 kg/m2 [facility]akel [facility] Work Phone: 04-09-2015 13:07-0400 Body Temperature 97.3 [degF] [facility] Work Phone: Comment on above: Method: Oral 04-09-2015 13:07-0400 Body weight 64.41 kg [facility]el [facility] Work Phone: 04-09-2015 13:07-0400 BP Diastolic 68 mm[Hg] [facility] Work Phone: Comment on above: Patient Position: Sitting; Cuff Location : Left Arm; Cuff Size: Standard 04-09-2015 13:07-0400 BP Systolic 114 mm[Hg] [facility] Work Phone: Comment on above: Patient Position: Sitting; Cuff Location : Left Arm; Cuff Size: Standard 04-09-2015 13:07-0400 BSA (Body Surface Area) 1.7 m2 [facility] Work Phone: 04-09-2015 13:07-0400 Height 163.19 cm [facility] Work Phone: 04-09-2015 13:07-0400 Pulse (Heart Rate) 82 /min [facility] Work Phone: Comment on above: Pattern: Regular 04-09-2015 13:07-0400 Pulse Oximetry 97 % [facility] Work Phone: Comment on above: Room air 04-09-2015 13:07-0400 Respiratory Rate 16 /min [facility] Work Phone: Comment on above: Pattern: Unlabored 03-05-2015 15:36-0400 BMI (Body Mass Index) 24.18 kg/m2 [facility]akel [facility] Work Phone: 03-05-2015 15:36-0400 Body Temperature 98.1 [degF] [facility] Work Phone: Comment on above: Method: Temporal 03-05-2015 15:36-0400 Body weight 64.41 kg Rakel [facility] Work Phone: 03-05-2015 15:36-0400 BP Diastolic 72 mm[Hg] [facility] Work Phone: Comment on above: Patient Position: Sitting; Cuff Location : Left Arm; Cuff Size: Standard 03-05-2015 15:36-0400 BP Systolic 118 mm[Hg] [facility]ak[facility] Work Phone: Comment on above: Patient Position: Sitting; Cuff Location : Left Arm; Cuff Size: Standard 03-05-2015 15:36-0400 BSA (Body Surface Area) 1.7 m2 [facility] Work Phone: 03-05-2015 15:36-0400 Height 163.19 cm [facility] Work Phone: 03-05-2015 15:36-0400 Pulse (Heart Rate) 78 /min [facility] Work Phone: Comment on above: Pattern: Regular 03-05-2015 15:36-0400 Respiratory Rate 16 /min Rakel Fast [facility] Work Phone: Comment on above: Pattern: Unlabored 01-28-2015 10:44-0400 BMI (Body Mass Index) 25.21 kg/m2 [facility]akel [facility] Work Phone: 01-28-2015 10:44-0400 Body Temperature 98.5 [degF] [facility] Work Phone: Comment on above: Method: Oral 01-28-2015 10:440400 Body weight 67.13 kg [facility] Work Phone: 01-28-2015 10:44-0400 BP Diastolic 76 mm[Hg] [facility] Work Phone: Comment on above: Patient Position: Sitting; Cuff Location : Left Arm; Cuff Size: Standard 01-28-2015 10:44-0400 BP Systolic 122 mm[Hg] Raekl [facility] Work Phone: Comment on above: Patient Position: Sitting; Cuff Location : Left Arm; Cuff Size: Standard 01-28-2015 10:44-0400 BSA (Body Surface Area) 1.73 m2 [facility] Work Phone: 01-28-2015 10:44-0400 Height 163.19 cm [facility] Work Phone: 01-28-2015 10:44-0400 Pulse (Heart Rate) 74 /min [facility] Work Phone: Comment on above: Pattern: Regular 01-28-2015 10:44-0400 Pulse Oximetry 97 % Rakel Fast [facility] Work Phone: Comment on above: Room air 01-28-2015 10:44-0400 Respiratory Rate 16 /min Rakel [facility] Work Phone: Comment on above: Pattern: Unlabored 12-30-2014 15:13-0400 BMI (Body Mass Index) 25.38 kg/m2 [facility] Work Phone: 12-30-2014 15:13-0400 Body Temperature 97.1 [degF] Rakel Fast [facility] Work Phone: Comment on above: Method: Oral 12-30-2014 15:13-0400 Body weight 67.59 kg Rakel [facility] Work Phone: 12-30-2014 15:13-0400 BP Diastolic 72 mm[Hg] Rak[facility] Work Phone: Comment on above: Patient Position: Sitting; Cuff Location : Left Arm; Cuff Size: Standard 12-30-2014 15:13-0400 BP Systolic 132 mm[Hg] Rakel [facility] Work Phone: Comment on above: Patient Position: Sitting; Cuff Location : Left Arm; Cuff Size: Standard 12-30-2014 15:13-0400 BSA (Body Surface Area) 1.73 m2 [facility]ak[facility] Work Phone: 12-30-2014 15:13-0400 Height 163.19 cm [facility] Work Phone: 12-30-2014 15:13-0400 Pulse (Heart Rate) 68 /min [facility] Work Phone: Comment on above: Pattern: Regular 12-30-2014 15:13-0400 Pulse Oximetry 98 % Rakel [facility] Work Phone: Comment on above: Room air 12-30-2014 15:13-0400 Respiratory Rate 16 /min Rakel [facility] Work Phone: Comment on above: Pattern: Unlabored 10-09-2014 13:43-0500 BMI (Body Mass Index) 25.38 kg/m2 Rakel Fast [facility] Work Phone: 10-09-2014 13:43-0500 Body Temperature 98.5 [degF] Rakel [facility] Work Phone: 10-09-2014 13:43-0500 Body weight 67.59 kg Rakel [facility] Work Phone: 10-09-2014 13:43-0500 BP Diastolic 72 mm[Hg] Rakel [facility] Work Phone: Comment on above: Patient Position: Sitting; Cuff Location : Left Arm; Cuff Size: Standard 10-09-2014 13:43-0500 BP Systolic 112 mm[Hg] [facility]akel [facility] Work Phone: Comment on above: Patient Position: Sitting; Cuff Location : Left Arm; Cuff Size: Standard 10-09-2014 13:43-0500 BSA (Body Surface Area) 1.73 m2 Rakel [facility] Work Phone: 10-09-2014 13:43-0500 Height 163.19 cm Rakel [facility] Work Phone: 10-09-2014 13:43-0500 Pulse (Heart Rate) 80 /min Rakel [facility] Work Phone: Comment on above: Pattern: Regular 10-09-2014 13:43-0500 Respiratory Rate 16 /min Rakel [facility] Work Phone: Comment on above: Pattern: Unlabored 07-23-2014 13:59-0500 BMI (Body Mass Index) 24.53 kg/m2 [facility]akel [facility] Work Phone: 07-23-2014 13:59-0500 Body Temperature 99.3 [degF] Rak[facility] Work Phone: 07-23-2014 13:59-0500 Body weight 65.32 kg Rakel [facility] Work Phone: 07-23-2014 13:59-0500 BP Diastolic 62 mm[Hg] Rak[facility] Work Phone: Comment on above: Patient Position: Sitting; Cuff Location : Left Arm; Cuff Size: Standard 07-23-2014 13:59-0500 BP Systolic 110 mm[Hg] Rakel [facility] Work Phone: Comment on above: Patient Position: Sitting; Cuff Location : Left Arm; Cuff Size: Standard 07-23-2014 13:59-0500 BSA (Body Surface Area) 1.71 m2 [facility] Work Phone: 07-23-2014 13:59-0500 Height 163.19 cm [facility] Work Phone: 07-23-2014 13:59-0500 Pulse (Heart Rate) 88 /min Rakel [facility] Work Phone: Comment on above: Pattern: Regular 07-23-2014 13:59-0500 Pulse Oximetry 96 % [facility]ak[facility] Work Phone: Comment on above: Room air 07-23-2014 13:59-0500 Respiratory Rate 16 /min Rakel [facility] Work Phone: Comment on above: Pattern: Unlabored 07-03-2014 15:49-0500 BMI (Body Mass Index) 24.58 kg/m2 Rakel Fast [facility] Work Phone: 07-03-2014 15:49-0500 Body Temperature 98.2 [degF] Rakel [facility] Work Phone: Comment on above: Method: Oral 07-03-2014 15:49-0500 Body weight 65.46 kg Rakel [facility] Work Phone: 07-03-2014 15:49-0500 BP Diastolic 74 mm[Hg] Rakel [facility] Work Phone: Comment on above: Patient Position: Sitting; Cuff Location : Left Arm; Cuff Size: Standard 07-03-2014 15:49-0500 BP Systolic 122 mm[Hg] Rakel [facility] Work Phone: Comment on above: Patient Position: Sitting; Cuff Location : Left Arm; Cuff Size: Standard 07-03-2014 15:49-0500 BSA (Body Surface Area) 1.71 m2 Rakel [facility] Work Phone: 07-03-2014 15:49-0500 Height 163.19 cm [facility] Work Phone: 07-03-2014 15:49-0500 Pulse (Heart Rate) 77 /min [facility]ak[facility] Work Phone: Comment on above: Pattern: Regular 07-03-2014 15:49-0500 Pulse Oximetry 97 % Rak[facility] Work Phone: Comment on above: Room air 04-30-2014 09:29-0400 BMI (Body Mass Index) 23.84 kg/m2 [facility] Work Phone: 04-30-2014 09:29-0400 Body Temperature 97 [degF] Rakel [facility] Work Phone: 04-30-2014 09:29-0400 Body weight 63.5 kg Rakel [facility] Work Phone: 04-30-2014 09:29-0400 BP Diastolic 64 mm[Hg] Rakel [facility] Work Phone: Comment on above: Patient Position: Sitting; Cuff Location : Left Arm; Cuff Size: Standard 04-30-2014 09:29-0400 BP Systolic 100 mm[Hg] [facility] Work Phone: Comment on above: Patient Position: Sitting; Cuff Location : Left Arm; Cuff Size: Standard 04-30-2014 09:29-0400 BSA (Body Surface Area) 1.69 m2 [facility] Work Phone: 04-30-2014 09:29-0400 Height 163.19 cm [facility] Internal [facility] Work Phone: 04-30-2014 09:29-0400 Pulse (Heart Rate) 72 /min [facility] Work Phone: Comment on above: Pattern: Regular 04-30-2014 09:29-0400 Respiratory Rate 16 /min [facility] Work Phone: Comment on above: Pattern: Unlabored 04-10-2014 14:03-0400 BMI (Body Mass Index) 22.99 kg/m2 [facility] Medicine Work Phone: 04-10-2014 14:03-0400 Body Temperature 98.2 [degF] [facility] Work Phone: Comment on above: Method: Oral 04-10-2014 14:03-0400 Body weight 61.24 kg [facility] Internal Medicine Work Phone: 04-10-2014 14:03-0400 BP Diastolic 70 mm[Hg] [facility] Work Phone: Comment on above: Patient Position: Sitting; Cuff Location : Left Arm; Cuff Size: Standard 04-10-2014 14:03-0400 BP Systolic 120 mm[Hg] [facility] Work Phone: Comment on above: Patient Position: Sitting; Cuff Location : Left Arm; Cuff Size: Standard 04-10-2014 14:03-0400 BSA (Body Surface Area) 1.66 m2 [facility] Work Phone: 04-10-2014 14:03-0400 Height 163.19 cm [facility] Work Phone: 04-10-2014 14:03-0400 Pulse (Heart Rate) 74 /min [facility] Work Phone: Comment on above: Pattern: Regular 04-10-2014 14:03-0400 Respiratory Rate 16 /min [facility] Work Phone: Comment on above: Pattern: Unlabored 12-05-2013 13:35-0400 BMI (Body Mass Index) 22.99 kg/m2 Rakel Fast [facility] Internal Medicine Work Phone: 12-05-2013 13:35-0400 Body Temperature 96.5 [degF] [facility] Work Phone: 12-05-2013 13:35-0400 Body weight 61.24 kg [facility] Work Phone: 12-05-2013 13:35-0400 BP Diastolic 74 mm[Hg] [facility] Work Phone: Comment on above: Patient Position: Sitting; Cuff Location : Left Arm; Cuff Size: Large 12-05-2013 13:35-0400 BP Systolic 106 mm[Hg] [facility] Work Phone: Comment on above: Patient Position: Sitting; Cuff Location : Left Arm; Cuff Size: Large 12-05-2013 13:35-0400 BSA (Body Surface Area) 1.66 m2 [facility] Work Phone: 12-05-2013 13:35-0400 Height 163.19 cm [facility] Work Phone: 12-05-2013 13:35-0400 Pulse (Heart Rate) 68 /min [facility] Work Phone: Comment on above: Pattern: Regular 12-05-2013 13:35-0400 Respiratory Rate 16 /min [facility] Work Phone: Comment on above: Pattern: Unlabored 08-07-2013 14:08-0500 BMI (Body Mass Index) 23.67 kg/m2 Rakel Fast [facility] Work Phone: 08-07-2013 14:08-0500 Body Temperature 97.2 [degF] [facility] Work Phone: 08-07-2013 14:08-0500 Body weight 63.05 kg [facility] Work Phone: 08-07-2013 14:08-0500 BP Diastolic 70 mm[Hg] [facility] Work Phone: Comment on above: Patient Position: Sitting; Cuff Location : Left Arm; Cuff Size: Standard 08-07-2013 14:08-0500 BP Systolic 116 mm[Hg] [facility] Work Phone: Comment on above: Patient Position: Sitting; Cuff Location : Left Arm; Cuff Size: Standard 08-07-2013 14:08-0500 BSA (Body Surface Area) 1.68 m2 [facility] Work Phone: 08-07-2013 14:08-0500 Height 163.19 cm [facility] Work Phone: 08-07-2013 14:08-0500 Pulse (Heart Rate) 64 /min [facility] Work Phone: Comment on above: Pattern: Regular 08-07-2013 14:08-0500 Respiratory Rate 16 /min [facility] Work Phone: Comment on above: Pattern: Unlabored 04-09-2013 13:18-0400 BMI (Body Mass Index) 25.04 kg/m2 [facility] Work Phone: 04-09-2013 13:18-0400 Body Temperature 98.4 [degF] [facility] Work Phone: Comment on above: Method: Temporal 04-09-2013 13:18-0400 Body weight 66.68 kg [facility] Work Phone: 04-09-2013 13:18-0400 BP Diastolic 82 mm[Hg] [facility] Work Phone: Comment on above: Patient Position: Sitting; Cuff Location : Left Arm; Cuff Size: Standard 04-09-2013 13:18-0400 BP Systolic 140 mm[Hg] [facility] Work Phone: Comment on above: Patient Position: Sitting; Cuff Location : Left Arm; Cuff Size: Standard 04-09-2013 13:18-0400 BSA (Body Surface Area) 1.72 m2 [facility] Work Phone: 04-09-2013 13:18-0400 Height 163.19 cm [facility] Work Phone: 04-09-2013 13:18-0400 Pulse (Heart Rate) 74 /min [facility] Work Phone: Comment on above: Pattern: Regular 04-09-2013 13:18-0400 Pulse Oximetry 98 % [facility] Work Phone: Comment on above: Room air 04-09-2013 13:18-0400 Respiratory Rate 16 /min [facility] Work Phone: Comment on above: Pattern: Unlabored 02-12-2013 10:53-0400 BMI (Body Mass Index) 24.53 kg/m2 [facility] Internal Medicine Work Phone: 02-12-2013 10:53-0400 Body Temperature 98.1 [degF] [facility] Work Phone: 02-12-2013 10:53-0400 Body weight 65.32 kg [facility] Work Phone: 02-12-2013 10:53-0400 BP Diastolic 64 mm[Hg] [facility] Work Phone: Comment on above: Patient Position: Sitting; Cuff Location : Left Arm; Cuff Size: Standard 02-12-2013 10:53-0400 BP Systolic 114 mm[Hg] [facility] Work Phone: Comment on above: Patient Position: Sitting; Cuff Location : Left Arm; Cuff Size: Standard 02-12-2013 10:53-0400 BSA (Body Surface Area) 1.71 m2 [facility] Work Phone: 02-12-2013 10:53-0400 Height 163.19 cm [facility] Work Phone: 02-12-2013 10:53-0400 Pulse (Heart Rate) 86 /min [facility] Work Phone: Comment on above: Pattern: Regular 02-12-2013 10:53-0400 Respiratory Rate 16 /min [facility] Work Phone: Comment on above: Pattern: Unlabored 01-16-2013 08:51-0400 BMI (Body Mass Index) 24.18 kg/m2 [facility] Work Phone: 01-16-2013 08:51-0400 Body Temperature 97.6 [degF] [facility] Work Phone: 01-16-2013 08:51-0400 Body weight 64.41 kg [facility] Work Phone: 01-16-2013 08:51-0400 BP Diastolic 84 mm[Hg] [facility] Work Phone: Comment on above: Patient Position: Sitting; Cuff Location : Left Arm; Cuff Size: Standard 01-16-2013 08:51-0400 BP Systolic 116 mm[Hg] [facility] Work Phone: Comment on above: Patient Position: Sitting; Cuff Location : Left Arm; Cuff Size: Standard 01-16-2013 08:51-0400 BSA (Body Surface Area) 1.7 m2 [facility] Work Phone: 01-16-2013 08:51-0400 Height 163.19 cm [facility] Work Phone: 01-16-2013 08:51-0400 Pulse (Heart Rate) 76 /min [facility] Work Phone: Comment on above: Pattern: Regular 01-16-2013 08:51-0400 Respiratory Rate 16 /min [facility] Work Phone: Comment on above: Pattern: Unlabored 10-25-2012 13:58-0500 BMI (Body Mass Index) 23.93 kg/m2 [facility] Work Phone: 10-25-2012 13:58-0500 Body Temperature 98 [degF] [facility] Work Phone: Comment on above: Method: Oral 10-25-2012 13:58-0500 Body weight 63.73 kg [facility] Work Phone: 10-25-2012 13:58-0500 BP Diastolic 70 mm[Hg] [facility] Work Phone: Comment on above: Patient Position: Sitting; Cuff Location : Left Arm; Cuff Size: Standard 10-25-2012 13:58-0500 BP Systolic 110 mm[Hg] [facility] Work Phone: Comment on above: Patient Position: Sitting; Cuff Location : Left Arm; Cuff Size: Standard 10-25-2012 13:58-0500 BSA (Body Surface Area) 1.69 m2 [facility] Work Phone: 10-25-2012 13:58-0500 Height 163.19 cm [facility] Work Phone: 10-25-2012 13:58-0500 Pulse (Heart Rate) 88 /min [facility] Work Phone: Comment on above: Pattern: Regular 10-25-2012 13:58-0500 Respiratory Rate 16 /min [facility] Work Phone: Comment on above: Pattern: Unlabored 09-04-2012 14:09-0500 BMI (Body Mass Index) 24.18 kg/m2 [facility] Work Phone: 09-04-2012 14:09-0500 Body Temperature 96.8 [degF] [facility] Work Phone: 09-04-2012 14:09-0500 Body weight 64.41 kg [facility] Work Phone: 09-04-2012 14:09-0500 BP Diastolic 70 mm[Hg] [facility] Work Phone: Comment on above: Patient Position: Sitting; Cuff Location : Left Arm; Cuff Size: Large 09-04-2012 14:09-0500 BP Systolic 114 mm[Hg] [facility] Work Phone: Comment on above: Patient Position: Sitting; Cuff Location : Left Arm; Cuff Size: Large 09-04-2012 14:09-0500 BSA (Body Surface Area) 1.7 m2 [facility] Work Phone: 09-04-2012 14:09-0500 Height 163.19 cm [facility] Work Phone: 09-04-2012 14:09-0500 Pulse (Heart Rate) 76 /min [facility] Medicine Work Phone: Comment on above: Pattern: Regular 09-04-2012 14:09-0500 Pulse Oximetry 98 % [facility] Work Phone: Comment on above: Room air 09-04-2012 14:09-0500 Respiratory Rate 16 /min [facility] Work Phone: Comment on above: Pattern: Unlabored 07-18-2012 08:25-0500 BMI (Body Mass Index) 24.01 kg/m2 [facility] Work Phone: 07-18-2012 08:25-0500 Body Temperature 97.2 [degF] [facility] Work Phone: 07-18-2012 08:25-0500 Body weight 63.96 kg [facility] Work Phone: 07-18-2012 08:25-0500 BP Diastolic 64 mm[Hg] [facility] Work Phone: Comment on above: Patient Position: Sitting; Cuff Location : Left Arm; Cuff Size: Standard 07-18-2012 08:25-0500 BP Systolic 118 mm[Hg] [facility] Work Phone: Comment on above: Patient Position: Sitting; Cuff Location : Left Arm; Cuff Size: Standard 07-18-2012 08:25-0500 BSA (Body Surface Area) 1.69 m2 [facility] Work Phone: 07-18-2012 08:25-0500 Height 163.19 cm [facility] Work Phone: 07-18-2012 08:25-0500 Pulse (Heart Rate) 80 /min [facility] Work Phone: Comment on above: Pattern: Regular 07-18-2012 08:25-0500 Respiratory Rate 16 /min [facility] Work Phone: Comment on above: Pattern: Unlabored 06-23-2012 09:20-0400 BMI (Body Mass Index) 24.87 kg/m2 [facility] Work Phone: 06-23-2012 09:20-0400 Body Temperature 98 [degF] [facility] Work Phone: Comment on above: Method: Oral 06-23-2012 09:20-0400 Body weight 66.23 kg [facility] Work Phone: 06-23-2012 09:20-0400 BP Diastolic 78 mm[Hg] [facility] Work Phone: Comment on above: Patient Position: Sitting; Cuff Location : Left Arm; Cuff Size: Large 06-23-2012 09:20-0400 BP Systolic 118 mm[Hg] [facility] Work Phone: Comment on above: Patient Position: Sitting; Cuff Location : Left Arm; Cuff Size: Large 06-23-2012 09:20-0400 BSA (Body Surface Area) 1.72 m2 [facility] Work Phone: 06-23-2012 09:20-0400 Height 163.19 cm [facility] Work Phone: 06-23-2012 09:20-0400 Pulse (Heart Rate) 68 /min [facility] Work Phone: Comment on above: Pattern: Regular 06-23-2012 09:20-0400 Respiratory Rate 20 /min [facility] Work Phone: Comment on above: Pattern: Unlabored 04-03-2012 10:52-0400 BMI (Body Mass Index) 24.87 kg/m2 [facility] Work Phone: 04-03-2012 10:52-0400 Body Temperature 97.5 [degF] [facility] Work Phone: 04-03-2012 10:52-0400 Body weight 66.23 kg [facility] Work Phone: 04-03-2012 10:52-0400 BP Diastolic 72 mm[Hg] [facility] Work Phone: Comment on above: Patient Position: Sitting; Cuff Location : Left Arm; Cuff Size: Standard 04-03-2012 10:52-0400 BP Systolic 116 mm[Hg] [facility] Work Phone: Comment on above: Patient Position: Sitting; Cuff Location : Left Arm; Cuff Size: Standard 04-03-2012 10:52-0400 BSA (Body Surface Area) 1.72 m2 [facility] Work Phone: 04-03-2012 10:52-0400 Height 163.19 cm [facility] Work Phone: 04-03-2012 10:52-0400 Pulse (Heart Rate) 76 /min [facility] Work Phone: Comment on above: Pattern: Regular 04-03-2012 10:52-0400 Respiratory Rate 16 /min [facility] Work Phone: Comment on above: Pattern: Unlabored 01-19-2012 09:58-0400 BMI (Body Mass Index) 25.38 kg/m2 [facility] Work Phone: 01-19-2012 09:58-0400 Body Temperature 97.4 [degF] [facility] Work Phone: 01-19-2012 09:58-0400 Body weight 67.59 kg [facility] Work Phone: 01-19-2012 09:58-0400 BP Diastolic 62 mm[Hg] [facility] Work Phone: Comment on above: Patient Position: Sitting; Cuff Location : Left Arm; Cuff Size: Standard 01-19-2012 09:58-0400 BP Systolic 110 mm[Hg] [facility] Work Phone: Comment on above: Patient Position: Sitting; Cuff Location : Left Arm; Cuff Size: Standard 01-19-2012 09:58-0400 BSA (Body Surface Area) 1.73 m2 [facility] Work Phone: 01-19-2012 09:58-0400 Height 163.19 cm [facility] Work Phone: 01-19-2012 09:58-0400 Pulse (Heart Rate) 80 /min [facility] Work Phone: Comment on above: Pattern: Regular 01-19-2012 09:58-0400 Respiratory Rate 16 /min [facility] Work Phone: Comment on above: Pattern: Unlabored 09-13-2011 09:31-0500 BMI (Body Mass Index) 24.87 kg/m2 [facility] Work Phone: 09-13-2011 09:31-0500 Body Temperature 96.3 [degF] [facility] Work Phone: 09-13-2011 09:31-0500 Body weight 66.23 kg [facility] Work Phone: 09-13-2011 09:31-0500 BP Diastolic 70 mm[Hg] [facility] Work Phone: Comment on above: Patient Position: Sitting; Cuff Location : Left Arm; Cuff Size: Large 09-13-2011 09:31-0500 BP Systolic 126 mm[Hg] [facility] Work Phone: Comment on above: Patient Position: Sitting; Cuff Location : Left Arm; Cuff Size: Large 09-13-2011 09:31-0500 BSA (Body Surface Area) 1.72 m2 [facility] Work Phone: 09-13-2011 09:31-0500 Height 163.19 cm [facility] Work Phone: 09-13-2011 09:31-0500 Pulse (Heart Rate) 82 /min [facility] Work Phone: Comment on above: Pattern: Regular 09-13-2011 09:31-0500 Respiratory Rate 16 /min [facility] Work Phone: Comment on above: Pattern: Unlabored 08-09-2011 14:09-0500 BMI (Body Mass Index) 25.04 kg/m2 [facility] Work Phone: 08-09-2011 14:09-0500 Body Temperature 98 [degF] [facility] Work Phone: Comment on above: Method: Oral 08-09-2011 14:09-0500 Body weight 66.68 kg [facility] Work Phone: 08-09-2011 14:09-0500 BP Diastolic 72 mm[Hg] [facility] Work Phone: Comment on above: Patient Position: Sitting; Cuff Location : Left Arm; Cuff Size: Standard 08-09-2011 14:09-0500 BP Systolic 124 mm[Hg] [facility] Work Phone: Comment on above: Patient Position: Sitting; Cuff Location : Left Arm; Cuff Size: Standard 08-09-2011 14:09-0500 BSA (Body Surface Area) 1.72 m2 [facility] Work Phone: 08-09-2011 14:09-0500 Height 163.19 cm [facility] Work Phone: 08-09-2011 14:09-0500 Pulse (Heart Rate) 76 /min [facility] Work Phone: Comment on above: Pattern: Regular 08-09-2011 14:09-0500 Pulse Oximetry 99 % [facility] Work Phone: Comment on above: Room air 08-09-2011 14:09-0500 Respiratory Rate 16 /min [facility] Work Phone: 07-23-2011 13:51-0500 BMI (Body Mass Index) 25.04 kg/m2 [facility] Work Phone: 07-23-2011 13:51-0500 Body weight 66.68 kg [facility] Work Phone: 07-23-2011 13:51-0500 BP Diastolic 62 mm[Hg] [facility] Work Phone: Comment on above: Patient Position: Sitting; Cuff Location : Left Arm; Cuff Size: Large 07-23-2011 13:51-0500 BP Systolic 120 mm[Hg] [facility] Work Phone: Comment on above: Patient Position: Sitting; Cuff Location : Left Arm; Cuff Size: Large 07-23-2011 13:51-0500 BSA (Body Surface Area) 1.72 m2 [facility] Work Phone: 07-23-2011 13:51-0500 Height 163.19 cm [facility] Work Phone: 07-23-2011 13:51-0500 Pulse (Heart Rate) 72 /min [facility] Work Phone: Comment on above: Pattern: Regular 07-23-2011 13:51-0500 Respiratory Rate 16 /min [facility] Work Phone: Comment on above: Pattern: Unlabored 05-18-2011 11:40-0400 BMI (Body Mass Index) 24.7 kg/m2 [facility] Work Phone: 05-18-2011 11:40-0400 Body Temperature 97 [degF] [facility] Work Phone: 05-18-2011 11:40-0400 Body weight 65.77 kg [facility] Work Phone: 05-18-2011 11:40-0400 BP Diastolic 80 mm[Hg] [facility] Work Phone: Comment on above: Patient Position: Sitting; Cuff Location : Left Arm; Cuff Size: Standard 05-18-2011 11:40-0400 BP Systolic 128 mm[Hg] [facility] Work Phone: Comment on above: Patient Position: Sitting; Cuff Location : Left Arm; Cuff Size: Standard 05-18-2011 11:40-0400 BSA (Body Surface Area) 1.71 m2 [facility] Work Phone: 05-18-2011 11:40-0400 Height 163.19 cm [facility] Work Phone: 05-18-2011 11:40-0400 Pulse (Heart Rate) 76 /min [facility] Work Phone: Comment on above: Pattern: Regular 05-18-2011 11:40-0400 Respiratory Rate 16 /min [facility] Work Phone: Comment on above: Pattern: Unlabored 11-13-2010 10:24-0400 BMI (Body Mass Index) 24.53 kg/m2 [facility] Work Phone: 11-13-2010 10:24-0400 Body Temperature 96.3 [degF] [facility] Work Phone: 11-13-2010 10:24-0400 Body weight 65.32 kg [facility] Work Phone: 11-13-2010 10:24-0400 BP Diastolic 72 mm[Hg] [facility] Work Phone: Comment on above: Patient Position: Sitting; Cuff Location : Left Arm; Cuff Size: Large 11-13-2010 10:24-0400 BP Systolic 116 mm[Hg] [facility] Work Phone: Comment on above: Patient Position: Sitting; Cuff Location : Left Arm; Cuff Size: Large 11-13-2010 10:24-0400 BSA (Body Surface Area) 1.71 m2 [facility] Work Phone: 11-13-2010 10:24-0400 Height 163.19 cm [facility] Work Phone: 11-13-2010 10:24-0400 Pulse (Heart Rate) 68 /min [facility] Work Phone: Comment on above: Pattern: Regular 11-13-2010 10:24-0400 Respiratory Rate 16 /min [facility] Work Phone: Comment on above: Pattern: Unlabored 08-27-2010 11:37-0500 Pulse Oximetry 96 % [facility] Work Phone: Comment on above: Room air 08-27-2010 10:45-0500 Body Temperature 98.8 [degF] [facility] Work Phone: Comment on above: Method: Oral 08-27-2010 10:45-0500 Body weight 65.32 kg [facility] Work Phone: 08-27-2010 10:45-0500 BP Diastolic 72 mm[Hg] [facility] Work Phone: Comment on above: Patient Position: Sitting; Cuff Location : Left Arm; Cuff Size: Standard 08-27-2010 10:45-0500 BP Systolic 148 mm[Hg] [facility] Work Phone: Comment on above: Patient Position: Sitting; Cuff Location : Left Arm; Cuff Size: Standard 08-27-2010 10:45-0500 Pulse (Heart Rate) 68 /min [facility] Work Phone: Comment on above: Pattern: Regular 08-27-2010 10:45-0500 Respiratory Rate 20 /min [facility] Work Phone: Comment on above: Pattern: Unlabored 07-07-2010 08:16-0500 Body Temperature 97.1 [degF] [facility] Work Phone: 07-07-2010 08:16-0500 Body weight 65.32 kg [facility] Work Phone: 07-07-2010 08:16-0500 BP Diastolic 70 mm[Hg] [facility] Work Phone: Comment on above: Patient Position: Sitting; Cuff Location : Left Arm; Cuff Size: Standard 07-07-2010 08:16-0500 BP Systolic 106 mm[Hg] [facility] Work Phone: Comment on above: Patient Position: Sitting; Cuff Location : Left Arm; Cuff Size: Standard 07-07-2010 08:16-0500 Pulse (Heart Rate) 84 /min [facility] Work Phone: Comment on above: Pattern: Regular 07-07-2010 08:16-0500 Respiratory Rate 18 /min [facility] Work Phone: Comment on above: Pattern: Unlabored 04-21-2010 14:20-0400 Body Temperature 98.6 [degF] [facility] Work Phone: 04-21-2010 14:20-0400 Body weight 64.86 kg [facility] Work Phone: 04-21-2010 14:20-0400 BP Diastolic 70 mm[Hg] [facility] Work Phone: Comment on above: Patient Position: Sitting; Cuff Location : Left Arm; Cuff Size: Large 04-21-2010 14:20-0400 BP Systolic 118 mm[Hg] [facility] Work Phone: Comment on above: Patient Position: Sitting; Cuff Location : Left Arm; Cuff Size: Large 04-21-2010 14:20-0400 Pulse (Heart Rate) 80 /min [facility] Work Phone: Comment on above: Pattern: Regular 04-21-2010 14:20-0400 Respiratory Rate 18 /min [facility] Work Phone: Comment on above: Pattern: Unlabored 03-10-2010 10:25-0400 Body weight 64.[address] [facility] Work Phone: 03-10-2010 10:25-0400 BP Diastolic 74 mm[Hg] [facility] Work Phone: Comment on above: Patient Position: Sitting; Cuff Location : Left Arm; Cuff Size: Standard 03-10-2010 10:25-0400 BP Systolic 114 mm[Hg] [facility] Work Phone: Comment on above: Patient Position: Sitting; Cuff Location : Left Arm; Cuff Size: Standard 03-10-2010 10:25-0400 Pulse (Heart Rate) 68 /min [facility] Work Phone: Comment on above: Pattern: Regular 03-10-2010 10:25-0400 Respiratory Rate 16 /min [facility] Work Phone: Comment on above: Pattern: Unlabored 03-04-2010 08:10-0400 BMI (Body Mass Index) 24.72 kg/m2 [facility] Work Phone: 03-04-2010 08:10-0400 Body weight 65.32 kg [facility] Work Phone: 03-04-2010 08:10-0400 BP Diastolic 72 mm[Hg] [facility] Work Phone: Comment on above: Patient Position: Sitting; Cuff Location : Left Arm; Cuff Size: Standard 03-04-2010 08:10-0400 BP Systolic 116 mm[Hg] [facility] Work Phone: Comment on above: Patient Position: Sitting; Cuff Location : Left Arm; Cuff Size: Standard 03-04-2010 08:10-0400 BSA (Body Surface Area) 1.7 m2 [facility] Work Phone: 03-04-2010 08:10-0400 Height 162.56 cm [facility] Work Phone: 03-04-2010 08:10-0400 Pulse (Heart Rate) 72 /min [facility] Work Phone: Comment on above: Pattern: Regular 03-04-2010 08:10-0400 Respiratory Rate 18 /min [facility] Work Phone: Comment on above: Pattern: Unlabored 10-31-2009 11:57-0500 Body Temperature 95.4 [degF] [facility] Work Phone: Comment on above: Method: Oral 10-31-2009 11:57-0500 Body weight 65.32 kg [facility] Work Phone: 10-31-2009 11:57-0500 BP Diastolic 70 mm[Hg] [facility] Work Phone: Comment on above: Patient Position: Sitting; Cuff Location : Right Arm; Cuff Size: Standard 10-31-2009 11:57-0500 BP Systolic 114 mm[Hg] [facility] Work Phone: Comment on above: Patient Position: Sitting; Cuff Location : Right Arm; Cuff Size: Standard 10-31-2009 11:57-0500 Pulse (Heart Rate) 80 /min [facility] Work Phone: Comment on above: Pattern: Regular 10-31-2009 11:57-0500 Respiratory Rate 18 /min [facility] Work Phone: Comment on above: Pattern: Unlabored 09-17-2009 09:48-0500 Body weight 66.68 kg [facility] Work Phone: 09-17-2009 09:48-0500 BP Diastolic 80 mm[Hg] [facility] Work Phone: Comment on above: Patient Position: Sitting; Cuff Location : Right Arm; Cuff Size: Standard 09-17-2009 09:48-0500 BP Systolic 116 mm[Hg] [facility] Work Phone: Comment on above: Patient Position: Sitting; Cuff Location : Right Arm; Cuff Size: Standard 09-17-2009 09:48-0500 Pulse (Heart Rate) 80 /min [facility] Work Phone: Comment on above: Pattern: Regular 09-17-2009 09:48-0500 Respiratory Rate 16 /min [facility] Work Phone: Comment on above: Pattern: Unlabored 09-03-2009 11:56-0500 Body Temperature 95.7 [degF] [facility] Work Phone: 09-03-2009 11:56-0500 Body weight 67.13 kg [facility] Internal Medicine Work Phone: 09-03-2009 11:56-0500 BP Diastolic 78 mm[Hg] [facility] Work Phone: Comment on above: Patient Position: Sitting; Cuff Location : Right Arm; Cuff Size: Standard 09-03-2009 11:56-0500 BP Systolic 124 mm[Hg] [facility] Work Phone: Comment on above: Patient Position: Sitting; Cuff Location : Right Arm; Cuff Size: Standard 09-03-2009 11:56-0500 Pulse (Heart Rate) 72 /min [facility] Work Phone: Comment on above: Pattern: Regular 09-03-2009 11:56-0500 Respiratory Rate 16 /min [facility] Work Phone: Comment on above: Pattern: Unlabored 03-31-2009 15:56-0400 Body Temperature 98.2 [degF] [facility] Work Phone: Comment on above: Method: Undefined 03-31-2009 15:56-0400 Body weight 65.77 kg [facility] Work Phone: 03-31-2009 15:56-0400 BP Diastolic 84 mm[Hg] [facility] Work Phone: Comment on above: Patient Position: Sitting; Cuff Location : Left Arm; Cuff Size: Standard 03-31-2009 15:56-0400 BP Systolic 126 mm[Hg] [facility] Work Phone: Comment on above: Patient Position: Sitting; Cuff Location : Left Arm; Cuff Size: Standard 03-31-2009 15:56-0400 Head Circumference 0 cm [facility] Work Phone: 03-31-2009 15:56-0400 Height 0 cm [facility] Work Phone: 03-31-2009 15:56-0400 Pulse (Heart Rate) 84 /min [facility] Work Phone: Comment on above: Pattern: Regular 03-31-2009 15:56-0400 Respiratory Rate 18 /min [facility] Work Phone: Comment on above: Pattern: Undefined 03-07-2009 11:09-0400 Body Temperature 98.3 [degF] [facility] Work Phone: Comment on above: Method: Oral 03-07-2009 11:09-0400 Body weight 65.32 kg [facility] Work Phone: 03-07-2009 11:09-0400 BP Diastolic 70 mm[Hg] [facility] Work Phone: Comment on above: Patient Position: Sitting; Cuff Location : Left Arm; Cuff Size: Standard 03-07-2009 11:09-0400 BP Systolic 100 mm[Hg] [facility] Work Phone: Comment on above: Patient Position: Sitting; Cuff Location : Left Arm; Cuff Size: Standard 03-07-2009 11:09-0400 Head Circumference 0 cm [facility] Work Phone: 03-07-2009 11:09-0400 Height 0 cm [facility] Work Phone: 03-07-2009 11:09-0400 Pulse (Heart Rate) 88 /min [facility] Work Phone: Comment on above: Pattern: Regular 03-07-2009 11:09-0400 Pulse Oximetry 100 % [facility] Work Phone: Comment on above: Room air 03-07-2009 11:09-0400 Respiratory Rate 20 /min [facility] Work Phone: Comment on above: Pattern: Unlabored 01-29-2009 11:01-0400 BMI (Body Mass Index) 24.53 kg/m2 [facility] Work Phone: 01-29-2009 11:01-0400 Body Temperature 97.6 [degF] [facility] Work Phone: Comment on above: Method: Undefined 01-29-2009 11:040 Body weight 65.32 kg [facility] Work Phone: 01-29-2009 11:01-0400 BP Diastolic 74 mm[Hg] [facility] Work Phone: Comment on above: Patient Position: Sitting; Cuff Location : Left Arm; Cuff Size: Large 01-29-2009 11:01-0400 BP Systolic 122 mm[Hg] [facility] Work Phone: Comment on above: Patient Position: Sitting; Cuff Location : Left Arm; Cuff Size: Large 01-29-2009 11:01-0400 BSA (Body Surface Area) 1.71 m2 [facility] Work Phone: 01-29-2009 11:01-0400 Head Circumference 0 cm [facility] Work Phone: 01-29-2009 11:01-0400 Height 163.19 cm [facility] Work Phone: 01-29-2009 11:01-0400 Pulse (Heart Rate) 72 /min [facility] Work Phone: Comment on above: Pattern: Regular 01-29-2009 11:-0400 Respiratory Rate 16 /min [facility] Work Phone: Comment on above: Pattern: Undefined 12-31-2008 07:58-0400 Body Temperature 99.2 [degF] [facility] Work Phone: Comment on above: Method: Oral 12-31-2008 07:58-0400 Body weight 65.77 kg [facility] Work Phone: 12-31-2008 07:58-0400 BP Diastolic 78 mm[Hg] [facility] Work Phone: Comment on above: Patient Position: Sitting; Cuff Location : Left Arm; Cuff Size: Standard 12-31-2008 07:58-0400 BP Systolic 112 mm[Hg] [facility] Work Phone: Comment on above: Patient Position: Sitting; Cuff Location : Left Arm; Cuff Size: Standard 12-31-2008 07:58-0400 Head Circumference 0 cm [facility] Work Phone: 12-31-2008 07:58-0400 Height 0 cm [facility] Work Phone: 12-31-2008 07:58-0400 Pulse (Heart Rate) 84 /min [facility] Work Phone: Comment on above: Pattern: Regular 12-31-2008 07:58-0400 Respiratory Rate 16 /min [facility] Work Phone: Comment on above: Pattern: Unlabored 08-27-2008 12:09-0500 Body Temperature 96.8 [degF] [facility] Work Phone: Comment on above: Method: Undefined 08-27-2008 12:09-0500 Body weight 65.77 kg [facility] Work Phone: 08-27-2008 12:09-0500 BP Diastolic 62 mm[Hg] [facility] Work Phone: Comment on above: Patient Position: Sitting; Cuff Location : Right Arm; Cuff Size: Standard 08-27-2008 12:09-0500 BP Systolic 104 mm[Hg] [facility] Work Phone: Comment on above: Patient Position: Sitting; Cuff Location : Right Arm; Cuff Size: Standard 08-27-2008 12:09-0500 Head Circumference 0 cm [facility] Work Phone: 08-27-2008 12:09-0500 Height 0 cm [facility] Work Phone: 08-27-2008 12:09-0500 Pulse (Heart Rate) 67 /min [facility] Work Phone: Comment on above: Pattern: Regular 08-27-2008 12:09-0500 Respiratory Rate 18 /min [facility] Work Phone: Comment on above: Pattern: Undefined 06-17-2008 11:09-0400 Body Temperature 97.2 [degF] [facility] Work Phone: Comment on above: Method: Undefined 06-17-2008 11:0400 Body weight 0 kg [facility] Work Phone: 06-17-2008 11:09-0400 BP Diastolic 76 mm[Hg] [facility] Work Phone: Comment on above: Patient Position: Sitting; Cuff Location : Right Arm; Cuff Size: Standard 06-17-2008 11:09-0400 BP Systolic 126 mm[Hg] [facility] Work Phone: Comment on above: Patient Position: Sitting; Cuff Location : Right Arm; Cuff Size: Standard 06-17-2008 11:09-0400 Head Circumference 0 cm [facility] Work Phone: 06-17-2008 11:09-0400 Height 0 cm [facility] Work Phone: 06-17-2008 11:09-0400 Pulse (Heart Rate) 92 /min [facility] Work Phone: Comment on above: Pattern: Regular 06-17-2008 11:09-0400 Respiratory Rate 16 /min [facility] Work Phone: Comment on above: Pattern: Undefined 05-14-2008 16:03-0400 Body Temperature 97 [degF] [facility] Work Phone: Comment on above: Method: Undefined 05-14-2008 16:03-0400 Body weight 0 kg [facility] Work Phone: 05-14-2008 16:03-0400 BP Diastolic 78 mm[Hg] [facility] Work Phone: Comment on above: Patient Position: Sitting; Cuff Location : Left Arm; Cuff Size: Large 05-14-2008 16:03-0400 BP Systolic 112 mm[Hg] [facility] Work Phone: Comment on above: Patient Position: Sitting; Cuff Location : Left Arm; Cuff Size: Large 05-14-2008 16:03-0400 Head Circumference 0 cm [facility] Work Phone: 05-14-2008 16:03-0400 Height 0 cm [facility] Work Phone: 05-14-2008 16:03-0400 Pulse (Heart Rate) 80 /min [facility] Work Phone: Comment on above: Pattern: Regular 05-14-2008 16:03-0400 Pulse Oximetry 98 % [facility] Work Phone: Comment on above: Room air 05-14-2008 16:03-0400 Respiratory Rate 16 /min [facility] Work Phone: Comment on above: Pattern: Undefined 04-15-2008 08:55-0400 Body Temperature 98.2 [degF] [facility] Work Phone: Comment on above: Method: Undefined 04-15-2008 08:55-0400 Body weight 65.77 kg [facility] Work Phone: 04-15-2008 08:55-0400 BP Diastolic 68 mm[Hg] [facility] Work Phone: Comment on above: Patient Position: Sitting; Cuff Location : Right Arm; Cuff Size: Standard 04-15-2008 08:55-0400 BP Systolic 114 mm[Hg] [facility] Work Phone: Comment on above: Patient Position: Sitting; Cuff Location : Right Arm; Cuff Size: Standard 04-15-2008 08:55-0400 Head Circumference 0 cm [facility] Work Phone: 04-15-2008 08:55-0400 Height 0 cm [facility] Work Phone: 04-15-2008 08:55-0400 Pulse (Heart Rate) 84 /min [facility] Work Phone: Comment on above: Pattern: Regular 04-15-2008 08:55-0400 Respiratory Rate 16 /min [facility] Work Phone: Comment on above: Pattern: Undefined 04-05-2008 10:59-0400 Body Temperature 97.4 [degF] [facility] Work Phone: Comment on above: Method: Undefined 04-05-2008 10:59-0400 Body weight 64.86 kg [facility] Work Phone: 04-05-2008 10:59-0400 BP Diastolic 72 mm[Hg] [facility] Work Phone: Comment on above: Patient Position: Sitting; Cuff Location : Right Arm; Cuff Size: Large 04-05-2008 10:59-0400 BP Systolic 106 mm[Hg] [facility] Work Phone: Comment on above: Patient Position: Sitting; Cuff Location : Right Arm; Cuff Size: Large 04-05-2008 10:59-0400 Head Circumference 0 cm [facility] Work Phone: 04-05-2008 10:59-0400 Height 0 cm [facility] Work Phone: 04-05-2008 10:59-0400 Pulse (Heart Rate) 80 /min [facility] Work Phone: Comment on above: Pattern: Regular 04-05-2008 10:59-0400 Respiratory Rate 16 /min [facility] Work Phone: Comment on above: Pattern: Undefined 03-04-2008 10:39-0400 BMI (Body Mass Index) 24.38 kg/m2 [facility] Work Phone: 03-04-2008 10:39-0400 Body weight 65.43 kg [facility] Work Phone: 03-04-2008 10:39-0400 BP Diastolic 62 mm[Hg] [facility] Work Phone: Comment on above: Patient Position: Sitting; Cuff Location : Left Arm; Cuff Size: Standard 03-04-2008 10:39-0400 BP Systolic 118 mm[Hg] [facility] Work Phone: Comment on above: Patient Position: Sitting; Cuff Location : Left Arm; Cuff Size: Standard 03-04-2008 10:39-0400 BSA (Body Surface Area) 1.71 m2 [facility] Work Phone: 03-04-2008 10:39-0400 Head Circumference 0 cm [facility] Work Phone: 03-04-2008 10:39-0400 Height 163.[address] [facility] Work Phone: 03-04-2008 10:39-0400 Pulse (Heart Rate) 72 /min [facility] Work Phone: Comment on above: Pattern: Regular 03-04-2008 10:39-0400 Respiratory Rate 20 /min [facility] Work Phone: Comment on above: Pattern: Unlabored 12-18-2007 11:13-0400 BMI (Body Mass Index) 24.38 kg/m2 [facility] Work Phone: 12-18-2007 11:13-0400 Body Temperature 97.4 [degF] [facility] Work Phone: Comment on above: Method: Oral 12-18-2007 11:13-0400 Body weight 65.43 kg [facility] Work Phone: 12-18-2007 11:13-0400 BP Diastolic 72 mm[Hg] [facility] Work Phone: Comment on above: Patient Position: Sitting; Cuff Location : Left Arm; Cuff Size: Large 12-18-2007 11:13-0400 BP Systolic 102 mm[Hg] [facility] Work Phone: Comment on above: Patient Position: Sitting; Cuff Location : Left Arm; Cuff Size: Large 12-18-2007 11:13-0400 BSA (Body Surface Area) 1.71 m2 [facility] Work Phone: 12-18-2007 11:13-0400 Head Circumference 0 cm [facility] Work Phone: 12-18-2007 11:13-0400 Height 163.83 cm [facility] Work Phone: 12-18-2007 11:13-0400 Pulse (Heart Rate) 82 /min [facility] Work Phone: Comment on above: Pattern: Regular 12-18-2007 11:13-0400 Respiratory Rate 18 /min [facility] Work Phone: Comment on above: Pattern: Unlabored 09-20-2007 11:55-0500 BMI (Body Mass Index) 24.5 kg/m2 [facility] Work Phone: 09-20-2007 11:55-0500 Body Temperature 97 [degF] [facility] Work Phone: Comment on above: Method: Oral 09-20-2007 11:55-0500 Body weight 65.77 kg [facility] Work Phone: 09-20-2007 11:55-0500 BP Diastolic 62 mm[Hg] [facility] Work Phone: Comment on above: Patient Position: Sitting; Cuff Location : Left Arm; Cuff Size: Standard 09-20-2007 11:55-0500 BP Systolic 108 mm[Hg] [facility] Work Phone: Comment on above: Patient Position: Sitting; Cuff Location : Left Arm; Cuff Size: Standard 09-20-2007 11:55-0500 BSA (Body Surface Area) 1.72 m2 [facility] Work Phone: 09-20-2007 11:55-0500 Head Circumference 0 cm [facility] Work Phone: 09-20-2007 11:55-0500 Height 163.83 cm [facility] Work Phone: 09-20-2007 11:55-0500 Pulse (Heart Rate) 82 /min [facility] Work Phone: Comment on above: Pattern: Regular 09-20-2007 11:55-0500 Respiratory Rate 16 /min [facility] Internal Medicine Work Phone: Comment on above: Pattern: Unlabored 09-13-2007 09:37-0500 BMI (Body Mass Index) 24.5 kg/m2 [facility] Internal Medicine Work Phone: 09-13-2007 09:37-0500 Body Temperature 97.6 [degF] [facility] Internal Medicine Work Phone: Comment on above: Method: Oral 09-13-2007 09:37-0500 Body weight 65.77 kg [facility] Work Phone: 09-13-2007 09:37-0500 BP Diastolic 56 mm[Hg] [facility] Work Phone: Comment on above: Patient Position: Sitting; Cuff Location : Left Arm; Cuff Size: Standard 09-13-2007 09:37-0500 BP Systolic 104 mm[Hg] [facility] Work Phone: Comment on above: Patient Position: Sitting; Cuff Location : Left Arm; Cuff Size: Standard 09-13-2007 09:37-0500 BSA (Body Surface Area) 1.72 m2 [facility] Work Phone: 09-13-2007 09:37-0500 Head Circumference 0 cm [facility] Work Phone: 09-13-2007 09:37-0500 Height 163.83 cm [facility] Work Phone: 09-13-2007 09:37-0500 Pulse (Heart Rate) 80 /min [facility] Work Phone: Comment on above: Pattern: Regular 09-13-2007 09:37-0500 Respiratory Rate 16 /min [facility] Work Phone: Comment on above: Pattern: Unlabored 06-12-2007 09:13-0400 Body Temperature 97.5 [degF] [facility] Work Phone: Comment on above: Method: Oral 06-12-2007 09:13-0400 Body weight 0 kg [facility] Work Phone: 06-12-2007 09:13-0400 BP Diastolic 78 mm[Hg] [facility] Work Phone: Comment on above: Patient Position: Sitting; Cuff Location : Right Arm; Cuff Size: Standard 06-12-2007 09:13-0400 BP Systolic 110 mm[Hg] [facility] Work Phone: Comment on above: Patient Position: Sitting; Cuff Location : Right Arm; Cuff Size: Standard 06-12-2007 09:13-0400 Head Circumference 0 cm [facility] Work Phone: 06-12-2007 09:13-0400 Height 0 cm [facility] Work Phone: 06-12-2007 09:13-0400 Pulse (Heart Rate) 76 /min [facility] Work Phone: Comment on above: Pattern: Regular 06-12-2007 09:13-0400 Respiratory Rate 16 /min [facility] Work Phone: Comment on above: Pattern: Unlabored 03-17-2007 07:25-0400 Body Temperature 98.3 [degF] [facility] Work Phone: Comment on above: Method: Oral 03-17-2007 07:25-0400 Body weight 65.32 kg [facility] Work Phone: 03-17-2007 07:25-0400 BP Diastolic 76 mm[Hg] [facility] Work Phone: Comment on above: Patient Position: Sitting; Cuff Location : Right Arm; Cuff Size: Standard 03-17-2007 07:25-0400 BP Systolic 112 mm[Hg] [facility] Work Phone: Comment on above: Patient Position: Sitting; Cuff Location : Right Arm; Cuff Size: Standard 03-17-2007 07:25-0400 Head Circumference 0 cm [facility] Work Phone: 03-17-2007 07:25-0400 Height 0 cm [facility] Work Phone: 03-17-2007 07:25-0400 Pulse (Heart Rate) 64 /min [facility] Work Phone: Comment on above: Pattern: Regular 03-17-2007 07:25-0400 Respiratory Rate 16 /min [facility] Work Phone: Comment on above: Pattern: Unlabored 03-17-2007 07:24-0400 Body weight 65.32 kg [facility] Work Phone: 03-17-2007 07:24-0400 Head Circumference 0 cm [facility] Work Phone: 03-17-2007 07:24-0400 Height 0 cm [facility] Work Phone: 01-18-2007 09:41-0400 BMI (Body Mass Index) 23.55 kg/m2 [facility] Work Phone: 01-18-2007 09:41-0400 Body weight 64.18 kg [facility] Work Phone: 01-18-2007 09:41-0400 BP Diastolic 62 mm[Hg] [facility] Work Phone: Comment on above: Patient Position: Sitting; Cuff Location : Left Arm; Cuff Size: Standard 01-18-2007 09:41-0400 BP Systolic 100 mm[Hg] [facility] Internal Medicine Work Phone: Comment on above: Patient Position: Sitting; Cuff Location : Left Arm; Cuff Size: Standard 01-18-2007 09:41-0400 BSA (Body Surface Area) 1.71 m2 [facility] Internal Medicine Work Phone: 01-18-2007 09:41-0400 Head Circumference 0 cm [facility] Internal Medicine Work Phone: 01-18-2007 09:41-0400 Height 165.1 cm [facility] Internal Medicine Work Phone: 01-18-2007 09:41-0400 Pulse (Heart Rate) 60 /min [facility] Internal Medicine Work Phone: Comment on above: Pattern: Regular 01-18-2007 09:41-0400 Respiratory Rate 16 /min [facility] Internal Medicine Work Phone: Comment on above: Pattern: Unlabored 12-21-2006 09:39-0400 BMI (Body Mass Index) 23.81 kg/m2 [facility] Internal Medicine Work Phone: 12-21-2006 09:39-0400 Body Temperature 98 [degF] [facility] Internal Medicine Work Phone: Comment on above: Method: Oral 12-21-2006 09:39-0400 Body weight 64.41 kg [facility] Internal Medicine Work Phone: 12-21-2006 09:39-0400 BP Diastolic 76 mm[Hg] [facility] Internal Medicine Work Phone: Comment on above: Patient Position: Sitting; Cuff Location : Left Arm; Cuff Size: Standard 12-21-2006 09:39-0400 BP Systolic 120 mm[Hg] [facility] Medicine Work Phone: Comment on above: Patient Position: Sitting; Cuff Location : Left Arm; Cuff Size: Standard 12-21-2006 09:39-0400 BSA (Body Surface Area) 1.71 m2 [facility] Work Phone: 12-21-2006 09:39-0400 Head Circumference 0 cm [facility] Work Phone: 12-21-2006 09:39-0400 Height 164.47 cm [facility] Work Phone: 12-21-2006 09:39-0400 Pulse (Heart Rate) 68 /min [facility] Work Phone: Comment on above: Pattern: Regular 12-21-2006 09:39-0400 Respiratory Rate 16 /min [facility] Internal Medicine Work Phone: Comment on above: Pattern: Unlabored 10-18-2006 09:18-0500 BMI (Body Mass Index) 24 kg/m2 [facility] Internal Medicine Work Phone: 10-18-2006 09:18-0500 Body Temperature 98.2 [degF] [facility] Internal Medicine Work Phone: Comment on above: Method: Oral 10-18-2006 09:18-0500 Body weight 64.92 kg [facility]ak[facility] Internal Medicine Work Phone: 10-18-2006 09:18-0500 BP Diastolic 80 mm[Hg] [facility] Internal Medicine Work Phone: Comment on above: Patient Position: Sitting; Cuff Location : Left Arm; Cuff Size: Standard 10-18-2006 09:18-0500 BP Systolic 110 mm[Hg] [facility] Work Phone: Comment on above: Patient Position: Sitting; Cuff Location : Left Arm; Cuff Size: Standard 10-18-2006 09:18-0500 BSA (Body Surface Area) 1.71 m2 [facility] Work Phone: 10-18-2006 09:18-0500 Head Circumference 0 cm [facility] Internal Medicine Work Phone: 10-18-2006 09:18-0500 Height 164.47 cm [facility] Work Phone: 10-18-2006 09:18-0500 Pulse (Heart Rate) 76 /min [facility] Work Phone: Comment on above: Pattern: Regular 10-18-2006 09:18-0500 Respiratory Rate 16 /min [facility] Work Phone: Comment on above: Pattern: Labored 09-29-2006 11:14-0500 Body weight 0 kg [facility] Work Phone: 09-29-2006 11:14-0500 BP Diastolic 68 mm[Hg] [facility] Work Phone: Comment on above: Patient Position: Sitting; Cuff Location : Left Arm; Cuff Size: Standard 09-29-2006 11:14-0500 BP Systolic 110 mm[Hg] [facility] Work Phone: Comment on above: Patient Position: Sitting; Cuff Location : Left Arm; Cuff Size: Standard 09-29-2006 11:14-0500 Head Circumference 0 cm [facility] Work Phone: 09-29-2006 11:14-0500 Height 0 cm [facility] Work Phone: 09-29-2006 11:14-0500 Pulse (Heart Rate) 68 /min [facility] Work Phone: Comment on above: Pattern: Regular 09-29-2006 11:14-0500 Respiratory Rate 16 /min [facility] Work Phone: Comment on above: Pattern: Undefined 09-21-2006 09:26-0500 BMI (Body Mass Index) 24.66 kg/m2 [facility] Work Phone: 09-21-2006 09:26-0500 Body Temperature 97.5 [degF] [facility] Work Phone: Comment on above: Method: Oral 09-21-2006 09:26-0500 Body weight 66.71 kg [facility] Work Phone: 09-21-2006 09:26-0500 BP Diastolic 74 mm[Hg] [facility] Work Phone: Comment on above: Patient Position: Sitting; Cuff Location : Left Arm; Cuff Size: Standard 09-21-2006 09:26-0500 BP Systolic 108 mm[Hg] [facility] Work Phone: Comment on above: Patient Position: Sitting; Cuff Location : Left Arm; Cuff Size: Standard 09-21-2006 09:26-0500 BSA (Body Surface Area) 1.[address] [facility] Work Phone: 09-21-2006 09:26-0500 Head Circumference 0 cm [facility] Internal Medicine Work Phone: 09-21-2006 09:26-0500 Height 164.47 cm [facility] Work Phone: 09-21-2006 09:26-0500 Pulse (Heart Rate) 84 /min [facility] Internal [facility] Work Phone: Comment on above: Pattern: Regular 09-21-2006 09:26-0500 Respiratory Rate 16 /min [facility] Internal Medicine Work Phone: Comment on above: Pattern: Unlabored 06-14-2006 12:03-0400 Body Temperature 97.7 [degF] [facility] Internal Medicine Work Phone: Comment on above: Method: Oral 06-14-2006 12:03-0400 Body weight 66.68 kg [facility] Internal Medicine Work Phone: 06-14-2006 12:03-0400 BP Diastolic 80 mm[Hg] [facility] Work Phone: Comment on above: Patient Position: Sitting; Cuff Location : Undefined; Cuff Size: Undefined 06-14-2006 12:03-0400 BP Systolic 102 mm[Hg] [facility] Work Phone: Comment on above: Patient Position: Sitting; Cuff Location : Undefined; Cuff Size: Undefined 06-14-2006 12:03-0400 Head Circumference 0 cm [facility] Internal Medicine Work Phone: 06-14-2006 [id number] Height 0 cm [facility] Internal Medicine Work Phone: 06-14-2006 12:03-0400 Pulse (Heart Rate) 74 /min [facility] Work Phone: Comment on above: Pattern: Regular 06-14-2006 12:03-0400 Respiratory Rate 16 /min [facility] Internal Medicine Work Phone: Comment on above: Pattern: Undefined Encounters Encounter Date Encounter Type Care Provider Facility Start: 04-18-2025 End: 04-18-20[facility] Comment on above: Hamstring strain, ri ght, initial encounter (Primary Dx) Start: 04-09-2025 End: 04-09-2025 Patient encounter procedure Trisha Corona NP-C -[facility] Work Phone: Start: 04-09-2025 End: 04-09-2025 ambulatory Trisha Corona NP-C Work Phone: -[facility] Start: 04-01-2025 End: 04-01-2025 ambulatory Karmen Kenny [facility] Physical Therapy Comment on above: Hamstring strain, ri ght, initial encounter (Primary Dx) Start: 03-29-2025 End: 03-29-2025 ambulatory [facility] Facility[facility] Start: 03-27-2025 End: 04-04-2025 Follow-up encounter Angie Aguirre APRN.WEIGHT ANALYST Work Phone: [facility] Start: 03-26-2025 End: 03-26-2025 ambulatory [facility] Facility:[facility] Start: 03-13-2025 End: 03-13-2025 Nursing evaluation of patient and report Mi Nurse Work Phone: [facility] [place] Comment on above: Osteoporosis without current pathological fracture, unspecified osteoporosis type (Primary Dx) Start: 03-13-2025 End: 03-13-2025 ambulatory [facility] Facility:[facility] Start: 02-27-2025 End: 02-27-2025 Patient encounter procedure Quita Barth APRN.WEIGHT ANALYST Work Phone: Pain Management Comment on above: Radiculopathy, lumba r region; Lumbar facet arthropathy; Lumbar spondylosis Start: 02-27-2025 End: 02-27-2025 ambulatory [facility] Facility:[facility] Start: 02-24-2025 End: 02-25-2025 ambulatory [facility] JAGDEEP.WEIGHT ANALYST Work Phone: [facility] Comment on above: Levothyroxin Start: 02-20-2025 End: 02-20-2025 ambulatory Karmen Amador PT [facility] Physical Therapy Comment on above: Hamstring strain, ri ght, initial encounter (Primary Dx) Start: 02-19-2025 End: 02-19-2025 Telephone encounter Angie Aguirre APRN.WEIGHT ANALYST Work Phone: [facility] Comment on above: Orders Start: 02-13-2025 End: 02-13-2025 Telephone encounter Teri Schmidt RN Mammography Comment on above: Results Start: 02-12-2025 End: 02-12-2025 Nursing evaluation of patient and report Mi Nurse Work Phone: [facility] Comment on above: Encounter for immuni zation Start: 02-12-2025 End: 02-12-2025 [facility] Facility:[facility] Start: 02-07-2025 [facility] Facility :[facility] Start: 02-07-2025 End: 02-07-2025 Subsequent hospital visit by physician Procedure Mammo [facility] Comment on above: Mammographic microca lcification found on diagnostic imaging of breast [R92.0] Start: 01-30-2025 End: 01-30-2025 Get Medical Advice Qutia Barth APRN.WEIGHT ANALYST Work Phone: Pain Management Comment on above: [place] refill Hamstring strain, ri ght, initial encounter (Primary Dx) Start: 01-29-2025 End: 01-30-2025 Refill Shameka Mccarty APRN.WEIGHT ANALYST Work Phone: [facility] Comment on above: Refill Request Start: 01-28-2025 End: 01-28-2025 ambulatory Quita Barth APRN.WEIGHT ANALYST Work Phone: Pain Management Comment on above: Robaxin Start: 01-16-2025 End: 01-16-2025 Patient encounter procedure Meagan White MD Work Phone: General Surgery Comment on above: Mammographic microca lcification found on diagnostic imaging of breast (Primary Dx) Start: 01-16-2025 End: 01-16-2025 ambulatory [facility] Facility:[facility] Start: 01-09-2025 End: 01-09-2025 ambulatory Trisha Corona HOUSE SUPERINTENDENT-C Work Phone: [facility] Work Phone: Start: 01-09-2025 End: 01-09-2025 Patient encounter procedure Trisha Corona NP-C -Laboratory Specimen Work Phone: Start: 01-08-2025 End: 01-08-2025 Patient encounter procedure Trisha Corona NP-C -[facility] Work Phone: Start: 01-08-2025 End: 01-09-2025 ambulatory Trisha Corona HOUSE SUPERINTENDENT-C Work Phone: [facility] Work Phone: Start: 01-01-2025 End: 03-03-2025 Follow-up encounter Gabo Paris MD Work Phone: [facility] Start: 01-01-2025 ambulatory [facility] Facility :[facility] Start: 01-01-2025 End: 01-01-2025 Subsequent hospital visit by physician Diagnostic Mammo [facility] M[facility]ogram Comment on above: Inconclusive mammogr am [R92.2] Start: 12-31-2024 End: 12-31-2024 Follow-up encounter Jamila Latif APRN.WEIGHT ANALYST Work Phone: [facility] Comment on above: Results Start: 12-27-2024 End: 12-27-2024 Subsequent hospital visit by physician Xr [facility] Work Phone: Radiology Comment on above: Acute cough [R05.1] Start: 12-27-2024 End: 12-27-2024 Patient encounter procedure Jamila Latif BIOINFORMATICS SOFTWARE ENGINEER.WEIGHT ANALYST Work Phone: [facility] Comment on above: Acute cough (Primary Dx); Pharyngitis, unspecified etiology; Mouth pain Start: 12-27-2024 End: 12-27-2024 ambulatory JAMILA LATIF Facility:[facility] Start: 12-18-2024 End: 12-18-2024 Patient encounter procedure Trisha Corona HOUSE SUPERINTENDENT-C -[facility] Work Phone: Start: 12-18-2024 End: 12-18-2024 ambulatory Trisha Corona HOUSE SUPERINTENDENT Facility:[facility] Start: 12-18-2024 End: 12-18-2024 ambulatory Trisha Corona HOUSE SUPERINTENDENT Facility:[facility] Start: 12-15-2024 End: 12-15-2024 Patient encounter procedure Brooke HALLMAN -[facility] Work Phone: Start: 12-15-2024 End: 12-15-2024 ambulatory Brooke HALLMAN Facility:[facility] Start: 12-12-2024 End: 12-12-2024 ambulatory [facility] Start: 12-04-2024 End: 12-04-2024 Subsequent hospital visit by physician Xr [facility] Work Phone: Radiology Comment on above: Leg injury, right, i nitial encounter [S89.91XA] Start: 12-04-2024 End: 12-04-2024 ambulatory [facility] Start: 12-04-2024 End: 12-04-2024 Patient encounter procedure Nelsy Lawton APRN.WEIGHT ANALYST Work Phone: [facility] Comment on above: Leg injury, right, i nitial encounter (Primary Dx); Fall, initial encounter; Cellulitis of skin Start: 12-03-2024 End: 12-04-2024 ambulatory Quita Barth APRN.WEIGHT ANALYST Work Phone: Pain Management Comment on above: Medication RX Start: 11-28-2024 End: 01-28-2025 Follow-up encounter Angie Aguirre APRN.CNP Work Phone: [facility] Start: 11-28-2024 End: 11-28-2024 ambulatory Karmen Amador PT [facility] Physical Therapy Comment on above: Hamstring strain, ri ght, initial encounter (Primary Dx) Start: 11-27-2024 End: 11-27-2024 ambulatory Angie Aguirre APRN.CNP Work Phone: [facility] Start: 11-27-2024 End: 11-27-2024 Patient encounter procedure Angie Aguirre APRN.CNP Work Phone: [facility] Comment on above: Appointment Population Health Na vigation Outreach ( [facility] / // ) Start: 11-26-2024 End: 11-26-2024 ambulatory [facility] Start: 11-20-2024 End: 11-20-2024 [facility] Start: 11-20-2024 End: 11-20-2024 Patient encounter procedure Quita Barth APRN.CNP Work Phone: Pain Management Comment on above: Continuous use of op ioids (Primary Dx); Radiculopathy, lumbar region; Lumbar facet arthropathy; Lumbar spondylosis; Other spondylosis, lumbar region Start: 11-19-2024 End: 11-19-2024 Office outpatient visit 25 minutes Angie Aguirre APRN.CNP Work Phone: [facility] Comment on above: Hyperlipidemia, unsp ecified hyperlipidemia type (Primary Dx); Chronic right-sided low back pain without sciatica; Post-surgical hypothyroidism; Primary hypertension Start: 11-19-2024 End: 11-19-2024 [facility] Facility:[facility] Start: 10-30-2024 End: 10-30-2024 ambulatory Karmen Amador PT [facility] Physical Therapy Comment on above: Hamstring strain, ri ght, initial encounter (Primary Dx) Start: 10-10-2024 End: 10-10-2024 ambulatory Nelsy Shay MA [facility] Start: 10-10-2024 End: 10-10-2024 Patient encounter procedure Nelsy Shay MA [facility] Comment on above: Population Health Na vigation Outreach ([facility]) Start: 10-09-2024 End: 10-09-2024 ambulatory Karmen Amador PT [facility] Physical Therapy Comment on above: Hamstring strain, ri ght, initial encounter (Primary Dx) Start: 10-03-2024 End: 10-03-2024 Refill Shameka Mccarty APRN.WEIGHT ANALYST Work Phone: [facility] Comment on above: Refill Request Start: 10-01-2024 End: 10-01-2024 ambulatory Quita Barth APRN.WEIGHT ANALYST Work Phone: Pain Management Comment on above: 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 (Primary Dx); Radiculopathy, lumbar region; Lumbar facet arthropathy; Lumbar spondylosis; History of lumbar spinal fusion Start: 10-01-2024 End: 10-01-2024 Telemedicine consultation with patient Quita Barth APRN.WEIGHT ANALYST Work Phone: Pain Management Start: 09-13-2024 End: 09-13-2024 Nursing evaluation of patient and report Mi Nurse Work Phone: [facility] Comment on above: Osteoporosis without current pathological fracture, unspecified osteoporosis type (Primary Dx) Start: 09-13-2024 End: 09-13-2024 ambulatory [facility] Start: 09-11-2024 End: 09-11-2024 ambulatory Karmen Amador PT [facility] Physical Therapy Comment on above: Hamstring strain, ri ght, initial encounter (Primary Dx) Start: 08-21-2024 End: 08-21-2024 ambulatory [facility] Start: 08-21-2024 End: 08-21-2024 Patient encounter procedure Quita Barth APRN.WEIGHT ANALYST Work Phone: Pain Management Comment on above: 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 (Primary Dx); Radiculopathy, lumbar region; Lumbar facet arthropathy; Lumbar spondylosis; History of lumbar spinal fusion; Postlaminectomy syndrome Start: 08-13-2024 End: 08-13-2024 Telephone encounter Angie Aguirre APRN.CNP Work Phone: [facility] Comment on above: Orders Start: 08-13-2024 End: 08-13-2024 Subsequent hospital visit by physician Xr [facility] Work Phone: Radiology Comment on above: Lumbar back pain [M5 4.50] Start: 08-13-2024 End: 08-13-2024 ambulatory Karmen Amador PT [place] [facility] Physical Therapy Comment on above: Hamstring strain, ri ght, initial encounter (Primary Dx) Start: 08-09-2024 End: 08-09-2024 Telephone encounter Joanne Amado PA-C Work Phone: [facility] Comment on above: Results Start: 08-08-2024 End: 08-08-2024 ambulatory [facility] Facility:[facility] Start: 08-08-2024 End: 08-08-2024 Office outpatient visit 25 minutes Angie Aguirre APRN.CNP Work Phone: [facility] Comment on above: Acute right-sided th oracic back pain (Primary Dx); Primary hypertension; Vitamin D deficiency Start: 08-08-2024 End: 08-08-2024 ambulatory [facility] Start: 07-30-2024 End: 07-30-2024 ambulatory Quita Barth APRN.CNP Work Phone: Pain Management Comment on above: Back pain Start: 07-27-2024 End: 07-27-2024 Refill Quita Barth APRN.CNP Work Phone: Pain Management Comment on above: Refill Request Start: 07-23-2024 End: 07-23-2024 Refill Angie Aguirre APRN.CNP Work Phone: [facility] Comment on above: Refill Request Hamstring strain, ri ght, initial encounter (Primary Dx) Start: 07-17-2024 End: 07-17-2024 ambulatory [facility] Start: 07-17-2024 End: 07-17-2024 Patient encounter procedure Angie Aguirre BIOINFORMATICS SOFTWARE ENGINEER.WEIGHT ANALYST Work Phone: [facility] Comment on above: Lumbar radiculopathy (Primary Dx); Chronic cough; Medicare annual wellness visit, subsequent Start: 07-02-2024 End: 07-02-2024 Refill Shameka Mccarty BIOINFORMATICS SOFTWARE ENGINEER.WEIGHT ANALYST Work Phone: [facility] Comment on above: Refill Request Start: 06-26-2024 End: 06-26-2024 ambulatory [facility] Start: 06-26-2024 End: 06-26-2024 Patient encounter procedure Quita Barth BIOINFORMATICS SOFTWARE ENGINEER.WEIGHT ANALYST Work Phone: Pain Management Comment on above: 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 (Primary Dx); Radiculopathy, lumbar region; Lumbar facet arthropathy; Lumbar spondylosis; History of lumbar spinal fusion; Postlaminectomy syndrome Start: 06-25-2024 End: 06-25-2024 ambulatory Karmen Kenny [facility] Physical Therapy Comment on above: Hamstring strain, ri ght, initial encounter (Primary Dx) Start: 06-12-2024 ambulatory Afia Atkinson Facility:[facility] Start: 06-06-2024 End: 06-06-2024 ambulatory Karmen Kenny [facility] Physical Therapy Comment on above: Hamstring strain, ri ght, initial encounter (Primary Dx) Start: 06-05-2024 End: 06-06-2024 ambulatory Angie Aguirre BIOINFORMATICS SOFTWARE ENGINEER.WEIGHT ANALYST Work Phone: [facility] Comment on above: Mammogram Start: 06-05-2024 End: 06-05-2024 Subsequent hospital visit by physician [facility] Work Phone: Radiology Start: 05-22-2024 End: 05-22-2024 ambulatory [facility] Start: 05-22-2024 End: 05-22-2024 Patient encounter procedure Quita Barth APRN.WEIGHT ANALYST Work Phone: Pain Management Comment on above: Lumbar facet arthrop athy (Primary Dx); Lumbar spondylosis; Radiculopathy, lumbar region Start: 05-17-2024 End: 05-17-2024 ambulatory Heather Bae HOUSE SUPERINTENDENT Facility:[facility] Start: 05-16-2024 End: 05-16-2024 ambulatory Afia Santana Facility:[facility] Start: 05-14-2024 End: 05-14-2024 [facility] Comment on above: Hamstring strain, ri ght, initial encounter (Primary Dx) Start: 05-11-2024 End: 05-11-2024 ambulatory Quita Barth APRN.WEIGHT ANALYST Work Phone: Pain Management Comment on above: Pain following ablat ion Start: 05-08-2024 End: 05-08-2024 ambulatory Jeramie Rose Facility:[facility] Start: 05-03-2024 End: 05-03-2024 Follow-up encounter Brando Gibson MD Work Phone: Pain Management Comment on above: Follow up to ablatio n Start: 05-03-2024 End: 05-03-2024 ambulatory Brando Gibson MD Work Phone: Pain Management Start: 05-03-2024 End: 05-03-2024 Subsequent hospital visit by physician Bone Density [facility] Work Phone: Radiology Comment on above: Asymptomatic postmen opausal status [Z78.0] Start: 05-01-2024 End: 05-01-2024 Refill Angie Aguirre APRN.WEIGHT ANALYST Work Phone: [facility] Comment on above: Refill Request Start: 04-25-2024 End: 04-25-2024 ambulatory Karmen Amador PT [place] [facility] Physical Therapy Comment on above: Hamstring strain, ri ght, initial encounter (Primary Dx) Start: 04-23-2024 End: 04-24-2024 ambulatory Quita Barth APRN.WEIGHT ANALYST Work Phone: Pain Management Start: 04-23-2024 End: 04-24-2024 Follow-up encounter Quita Barth APRN.WEIGHT ANALYST Work Phone: Pain Management Comment on above: Ablation followup Start: 04-17-2024 End: 04-17-2024 ambulatory BRANDO GIBSON Facility:[facility] Start: 04-16-2024 End: 04-16-2024 Office outpatient visit 25 minutes Angie Aguirre APRN.WEIGHT ANALYST Work Phone: Family Medicine [place] Comment on above: Chronic bilateral lo w back pain without sciatica (Primary Dx); Pain medication agreement; Spinal stenosis of lumbar region with neurogenic claudication; Chronic right-sided low back pain without sciatica; COVID-19 Start: 04-10-2024 End: 04-10-2024 Orders Only Brando Gibson MD Work Phone: Pain Management Comment on above: Lumbar facet arthrop athy (Primary Dx); Lumbar spondylosis Start: 04-05-2024 End: 04-05-2024 ambulatory Karmen Kenny [facility] Physical Therapy Comment on above: Hamstring strain, ri ght, initial encounter (Primary Dx) Start: 04-03-2024 ambulatory Quita Barth APRN.WEIGHT ANALYST Work Phone: Pain Management Comment on above: Ablation Start: 04-02-2024 End: 04-02-2024 Subsequent hospital visit by physician Xr [facility] Work Phone: Radiology Comment on above: Acute cough [R05.1] Start: 04-02-2024 End: 04-02-2024 Office outpatient visit 25 minutes Angie Aguirre APRN.CNP Work Phone: [facility] [place] Comment on above: COVID-19 (Primary Dx ); Acute cough Start: 04-02-2024 ambulatory Angie Aguirre APRN.SAURABH Work Phone: [facility] [place] Comment on above: Cough Start: 03-27-2024 Telephone encounter Angie navarrete APRN.CNP Work Phone: [facility] [place] Start: 03-20-2024 End: 10-08-2024 Get Medical Advice Quita Barth APRN.WEIGHT ANALYST Work Phone: Pain Management Comment on above: Medication Refill Start: 03-19-2024 End: 03-19-2024 ambulatory Karmenceci Amador [facility] Physical Therapy Comment on above: Hamstring strain, ri ght, initial encounter (Primary Dx) Start: 03-15-2024 End: 03-15-2024 Orders Only Brando Gibson MD Work Phone: Pain Management Comment on above: Lumbar facet arthrop athy (Primary Dx); Lumbar spondylosis Lumbar facet arthrop athy (Primary Dx); Lumbar spondylosis; Myofascial pain syndrome of lumbar spine; History of lumbar spinal fusion; Postlaminectomy syndrome Anticoagulation Erna genevieve (Plavix) Start: 03-13-2024 End: 03-13-2024 Nursing evaluation of patient and report Mi Nurse Work Phone: [facility] Comment on above: Osteoporosis without current pathological fracture, unspecified osteoporosis type (Primary Dx) Start: 03-12-2024 End: 03-12-2024 ambulatory Karmenceci Amador [facility] Physical Therapy Comment on above: Hamstring strain, ri ght, initial encounter (Primary Dx) Start: 03-07-2024 Refill Shiralashonda Royf BIOINFORMATICS SOFTWARE ENGINEER.WEIGHT ANALYST Work Phone: [facility] Comment on above: Refill Request Start: 03-05-2024 End: 03-05-2024 ambulatory Karmen Amador [facility] Physical Therapy Comment on above: Hamstring strain, ri ght, initial encounter (Primary Dx) Start: 03-01-2024 Refill Shameka A S uppan BIOINFORMATICS SOFTWARE ENGINEER.WEIGHT ANALYST Work Phone: [facility] Comment on above: Refill Request Start: 02-28-2024 Refill Shameka A S uppan BIOINFORMATICS SOFTWARE ENGINEER.WEIGHT ANALYST Work Phone: [facility] Comment on above: Refill Request Start: 02-26-2024 Refill Shameka A S uppan BIOINFORMATICS SOFTWARE ENGINEER.PSYCHIATRY TEACHER Work Phone: [facility] Comment on above: Refill Request Start: 02-20-2024 Telephone encounter Angie navarrete APRN.CNP Work Phone: [facility] Comment on above: Orders Start: 01-31-2024 End: 01-31-2024 ambulatory Karmen Amador [facility] Physical Therapy Comment on above: Hamstring strain, ri ght, initial encounter (Primary Dx) Start: 01-27-2024 End: 01-27-2024 Patient encounter procedure Salo Baird MD Work Phone: [facility] Comment on above: Asthma with acute ex acerbation, unspecified asthma severity, unspecified whether persistent (Primary Dx); Acute non-recurrent sinusitis, unspecified location Start: 01-27-2024 End: 01-27-2024 ambulatory Karmen [facility] Physical Therapy Comment on above: Hamstring strain, ri ght, initial encounter (Primary Dx) Start: 01-25-2024 End: 01-25-2024 ambulatory Karmen Amador [facility] Physical Therapy Comment on above: Hamstring strain, ri ght, initial encounter (Primary Dx) Start: 01-13-2024 End: 01-13-2024 ambulatory Karmen Amador [facility] Physical Therapy Comment on above: Hamstring strain, ri ght, initial encounter (Primary Dx) Start: 01-06-2024 End: 06-15-2024 Telephone encounter Angie Aguirre APRN.CNP Work Phone: [facility] Start: 01-06-2024 End: 01-06-2024 ambulatory Karmen Amador [facility] Physical Therapy Comment on above: Hamstring strain, ri ght, initial encounter (Primary Dx) Start: 01-02-2024 End: 01-02-2024 Office outpatient visit 25 minutes Angie Aguirre APRN.CNP Work Phone: [facility] Comment on above: Syncope, unspecified syncope type (Primary Dx); Chronic right-sided low back pain without sciatica; Medication monitoring encounter Start: 12-30-2023 Telephone encounter Angie navarrete APRN.CNP Work Phone: [facility] Comment on above: Appointment; Results Start: 12-30-2023 End: 12-30-2023 ambulatory Karmen Amador PT [facility] Physical Therapy Comment on above: Hamstring strain, ri ght, initial encounter (Primary Dx) Start: 12-28-2023 End: 12-28-2023 Subsequent hospital visit by physician [facility] Work Phone: Radiology Start: 12-26-2023 ambulatory Quita Barth APRN.WEIGHT ANALYST Work Phone: Pain Management Comment on above: Methocarbamol 500mg Start: 12-23-2023 End: 12-23-2023 ambulatory Karmen Amador PT [facility] Physical Therapy Comment on above: Hamstring strain, ri ght, initial encounter (Primary Dx) Start: 12-14-2023 End: 12-14-2023 ambulatory Karmen Amador PT [facility] Physical Therapy Comment on above: Hamstring strain, ri ght, initial encounter (Primary Dx) Start: 12-08-2023 Telephone encounter Lucas Schuster MD Mammography Comment on above: Mammogram Result Ivan l Back Sciatic radiculitis (Primary Dx) Start: 12-07-2023 Telephone encounter Angie navarrete APRN.WEIGHT ANALYST Work Phone: [facility] [place] Comment on above: Orders; Results Start: 12-06-2023 End: 12-06-2023 ambulatory Karmen Amador PT [facility] Physical Therapy Comment on above: Hamstring strain, ri ght, initial encounter (Primary Dx) Start: 12-06-2023 Documentation procedure Mammog milena Coordinator [facility] Start: 12-06-2023 Letter encounter Mammography Coordinator [facility] Department Start: 12-05-2023 End: 12-05-2023 Subsequent hospital visit by physician Screen Mammo [facility] Mammogram Comment on above: Encounter for screen ing mammogram for breast cancer [Z12.31] Start: 11-30-2023 End: 11-30-2023 Patient encounter procedure Albin Balderrama DO Work Phone: [facility] Comment on above: Hamstring strain, ri ght, initial encounter (Primary Dx) Start: 11-30-2023 End: 11-30-2023 Subsequent hospital visit by physician Deirdre [facility] Work Phone: Radiology Comment on above: Pain in right hip [M 25.551] Start: 11-26-2023 ambulatory Angie Aguirre APRN.WEIGHT ANALYST Work Phone: [facility] Comment on above: Medication Start: 11-15-2023 End: 11-15-2023 ambulatory George Tucker PT, DPT Work Phone: Physical Therapy Comment on above: Lumbar radiculopathy (Primary Dx) Refill Request Start: 11-09-2023 End: 11-09-2023 Subsequent hospital visit by physician Deirdre [facility] Work Phone: Radiology Comment on above: Foot pain, right [M7 9.671] Start: 11-04-2023 End: 11-04-2023 Office outpatient visit 15 minutes Angie Aguirre APRN.WEIGHT ANALYST Work Phone: [facility] Comment on above: Foot pain, right (Pr imary Dx); Encounter for immunization; Cut of skin of right lower leg Start: 11-01-2023 End: 11-01-2023 ambulatory LARS ALCANTAR Facility:[facility] Start: 11-01-2023 End: 11-01-2023 ambulatory George Tucker PT, DPT Work Phone: Physical Therapy Comment on above: Lumbar radiculopathy (Primary Dx) Start: 10-31-2023 End: 10-31-2023 Office outpatient visit 25 minutes Angie Aguirre APRN.WEIGHT ANALYST Work Phone: [facility] [place] Comment on above: Chronic right-sided low back pain without sciatica (Primary Dx); Bowel habit changes Start: 10-28-2023 ambulatory Quita Barth APRN.WEIGHT ANALYST Work Phone: Pain Management Comment on above: Robaxin Start: 10-11-2023 ambulatory Brando Gibson MD Work Phone: Pain Management Comment on above: Ablation result Start: 10-10-2023 ambulatory Angie Aguirre APRN.WEIGHT ANALYST Work Phone: [facility] [place] Comment on above: Gabapentin Start: 09-30-2023 End: 09-30-2023 ambulatory ALBIN TACOS Facility[facility] Start: 09-30-2023 End: 09-30-2023 ambulatory George Linusle PT, DPT Work Phone: Physical Therapy Comment on above: Lumbar radiculopathy (Primary Dx) Start: 09-27-2023 End: 09-27-2023 ambulatory BRANDO Anderson GIBSON Facility:[facility] Start: 09-03-2023 End: 09-03-2023 Subsequent hospital visit by physician Xr [facility] Work Phone: Radiology Comment on above: Acute cough [R05.1] Start: 08-04-2023 ambulatory BRANDO GIBSON Facility:[facility] Start: 08-01-2023 End: 08-01-2023 Nursing evaluation of patient and report Nurse Card Admin [facility] Work Phone: Cardiology Comment on above: Screening for ischem ic heart disease (Primary Dx) Start: 08-01-2023 End: 08-01-2023 Subsequent hospital visit by physician Injection Nm [facility] Work Phone: Nuclear Medicine Comment on above: Chest discomfort [R0 7.89] Start: 07-26-2023 ambulatory Nurse Card Adm in [facility] Work Phone: Cardiology Comment on above: Stress Test Instruct ions for 08/01/23 Start: 07-26-2023 E-mail encounter fro m caregiver Nurse Card Admin [facility] Work Phone: [facility] Start: 07-21-2023 End: 07-21-2023 ambulatory LARS ALCANTAR Facility:[facility] Start: 07-21-2023 End: 07-21-2023 ambulatory George Bable PT, DPT Work Phone: [facility] Comment on above: Lumbar radiculopathy (Primary Dx) Start: 07-17-2023 ambulatory Quita Barth APRN.WEIGHT ANALYST Work Phone: Pain Management Comment on above: Scheduled injection Aug 04 Start: 07-12-2023 End: 07-12-2023 Office outpatient visit 15 minutes Angie Aguirre BIOINFORMATICS SOFTWARE ENGINEER.WEIGHT ANALYST Work Phone: [facility] Comment on above: Bacterial pneumonia (Primary Dx); Cough Start: 07-06-2023 End: 07-06-2023 ambulatory LARS ALCANTAR Facility:[facility] Start: 07-06-2023 End: 07-06-2023 ambulatory George Tucker PT, DPT Work Phone: [facility] Comment on above: Lumbar radiculopathy (Primary Dx) Start: 06-20-2023 ambulatory Angie Aguirre BIOINFORMATICS SOFTWARE ENGINEER.WEIGHT ANALYST Work Phone: [facility] Comment on above: Hospitalization Start: 06-18-2023 Non-patient / Non-visit HOUSE SUPERINTENDENT-C C wojciech Aguirre HOUSE SUPERINTENDENT Work Phone: [facility] Work Phone: Start: 06-17-2023 Telephone encounter Brando ornelas MD Work Phone: Pain Management Comment on above: Cardiac Clearance (A nticoagulation: Plavix) Start: 06-17-2023 End: 06-18-2023 Evaluation and management of inpatient HOUSE SUPERINTENDENT-C Angie Aguirre HOUSE SUPERINTENDENT Work Phone: [facility] Work Phone: Start: 06-17-2023 Non-patient / Non-visit HOUSE SUPERINTENDENT-C C wojciech Rinaldiagen HOUSE SUPERINTENDENT Work Phone: [facility] Work Phone: Start: 06-16-2023 Non-patient / Non-visit HOUSE SUPERINTENDENT-C C wojciech Rinaldiagen HOUSE SUPERINTENDENT Work Phone: [facility] Work Phone: Start: 06-16-2023 Evaluation and manag ement of inpatient HOUSE SUPERINTENDENT-C Angie Aguirre HOUSE SUPERINTENDENT Work Phone: [facility] Surgical 3 Work Phone: Start: 06-16-2023 observation encounter HOUSE SUPERINTENDENT-C Chr isty Timothy HOUSE SUPERINTENDENT Work Phone: [facility] Work Phone: Start: 06-13-2023 End: 06-13-2023 Patient encounter procedure HOUSE SUPERINTENDENT-C Angie Aguirre HOUSE SUPERINTENDENT Work Phone: [facility]ic Work Phone: Start: 06-10-2023 ambulatory Brando Gibson MD Work Phone: Pain Management Comment on above: Procedure Instructio ns Lumbar spondylosis ( Primary Dx); Lumbar foraminal stenosis; Radiculopathy, lumbar region Start: 06-10-2023 E-mail encounter fro m caregiver Brando Gibson MD Work Phone: [facility] Start: 06-08-2023 Telephone encounter Vivienne Viera APRN.WEIGHT ANALYST Work Phone: [facility] Comment on above: Results Start: 06-08-2023 End: 06-08-2023 Patient encounter procedure Vivienne Viera APRN.WEIGHT ANALYST Work Phone: [facility] Comment on above: Urinary frequency (P rimary Dx); Recurrent UTI (urinary tract infection) Start: 06-07-2023 End: 06-07-2023 Subsequent hospital visit by physician Xr [facility] Work Phone: Radiology Comment on above: Chest discomfort [R0 7.89] Start: 06-06-2023 End: 06-06-2023 ambulatory LARS ALCANTAR Facility:[facility] Start: 06-06-2023 End: 06-06-2023 ambulatory George Tucker PT, DPT Work Phone: [facility] Comment on above: Lumbar spondylosis ( Primary Dx) Start: 06-06-2023 End: 06-06-2023 Office outpatient visit 25 minutes Angie Aguirre APRN.WEIGHT ANALYST Work Phone: [facility] Comment on above: Chest discomfort (Pr imary Dx); Ankle swelling, unspecified laterality; Shortness of breath Start: 06-05-2023 ambulatory Brando Gibson MD Work Phone: Pain Management Comment on above: Pain Start: 05-31-2023 Telephone encounter Quita sandoval BIOINFORMATICS SOFTWARE ENGINEER.WEIGHT ANALYST Work Phone: Pain Management Comment on above: Insurance Authorizat ion (Medication ) Start: 05-29-2023 ambulatory Quita Barth BIOINFORMATICS SOFTWARE ENGINEER.WEIGHT ANALYST Work Phone: Pain Management Comment on above: Robaxin Start: 05-18-2023 End: 05-18-2023 ambulatory LARS ALCANTAR Facility:[facility] Start: 05-18-2023 End: 05-18-2023 Patient encounter procedure HOUSE SUPERINTENDENT-C Angie Aguirre HOUSE SUPERINTENDENT Work Phone: [facility] Work Phone: Start: 05-12-2023 Refill Angie Aguirre APRN.WEIGHT ANALYST Work Phone: [facility] Comment on above: Refill Request Start: 05-05-2023 End: 05-05-2023 ambulatory LARS ALCANTAR Facility:[facility] Start: 05-05-2023 End: 05-05-2023 ambulatory George Bable PT, DPT Work Phone: [facility] Comment on above: Lumbar spondylosis ( Primary Dx) Start: 04-21-2023 End: 04-21-2023 ambulatory LARS ALCANTAR Facility:[facility] Start: 04-21-2023 End: 04-21-2023 ambulatory George Bable PT, DPT Work Phone: [facility] Comment on above: Lumbar spondylosis ( Primary Dx) Start: 04-20-2023 End: 04-20-2023 Patient encounter procedure Brando Gibson MD Work Phone: Pain Management Comment on above: Lumbar spondylosis ( Primary Dx); Hip pain; Status post lumbar spinal fusion; Lumbar foraminal stenosis; Myofascial pain syndrome of lumbar spine Start: 03-24-2023 End: 03-24-2023 ambulatory LARS ALCANTAR Facility:[facility] Start: 03-24-2023 End: 03-24-2023 ambulatory George Bable PT, DPT Work Phone: [facility] Comment on above: Lumbar spondylosis ( Primary Dx) Start: 03-17-2023 End: 03-17-2023 ambulatory LARS ALCANTAR Facility[facility] Start: 03-17-2023 End: 03-17-2023 ambulatory George Bable PT, DPT Work Phone: [facility] Comment on above: Lumbar spondylosis ( Primary Dx) Start: 03-15-2023 End: 03-15-2023 Subsequent hospital visit by physician [facility] Work Phone: Radiology Comment on above: Gastroesophageal ref lux disease without esophagitis [K21.9] Start: 03-12-2023 ambulatory Delia Mckeon PAAbdullahiC Work Phone: [facility] [place] Comment on above: Colonoscopy Start: 03-10-2023 End: 03-10-2023 Nursing evaluation of patient and report Mi Nurse Work Phone: Family Medicine [place] Comment on above: Osteoporosis without current pathological fracture, unspecified osteoporosis type (Primary Dx) Start: 03-04-2023 End: 03-04-2023 Subsequent hospital visit by physician Ross Cobb MD Work Phone: Ambulatory Surgery Comment on above: Other constipation [ K59.09] Start: 03-03-2023 Telephone encounter Angie navarrete APRN.CNP Work Phone: [facility] Comment on above: Orders Start: 02-21-2023 End: 02-21-2023 ambulatory LARS ALCANTAR Facility:[facility] Start: 02-21-2023 End: 02-21-2023 ambulatory George Bable PT, DPT Work Phone: [facility] Comment on above: Lumbar spondylosis ( Primary Dx) Start: 02-16-2023 End: 02-16-2023 ambulatory George Bable PT, DPT Work Phone: [facility] Comment on above: Lumbar spondylosis ( Primary Dx) Start: 02-15-2023 End: 02-15-2023 [facility] Angie Aguirre APRN.CNP Work Phone: [facility] Comment on above: Muscle cramps (Prima ry Dx); Post-surgical hypothyroidism; Hyponatremia; Disorder of bone, unspecified Start: 02-07-2023 End: 02-07-2023 ambulatory [facility] Facility[facility] Start: 01-10-2023 End: 01-10-2023 ambulatory [facility] Start: 01-05-2023 End: 01-05-2023 ambulatory LARS ALCANTAR Facility:[facility] Start: 01-03-2023 Telephone encounter Carlita simmons APRN.CNP Work Phone: [facility] Comment on above: Results Orders Forms Start: 12-31-2022 End: 12-31-2022 Subsequent hospital visit by physician [facility] ([facility]) Work Phone: Cat Scan Comment on above: Spinal stenosis of l umbar region with neurogenic claudication [M48.062] Start: 12-30-2022 End: 12-30-2022 Patient encounter procedure Delia Mckeon PA-C Work Phone: [facility] [place] Comment on above: Gastroesophageal ref lux disease without esophagitis (Primary Dx); Hoarseness, chronic; Nausea; Gastric polyps; Other constipation Start: 12-29-2022 End: 12-29-2022 ambulatory LARS ALCANTAR Facility:[facility] Start: 12-20-2022 End: 12-20-2022 ambulatory Jamila O'Fran PT [facility] Comment on above: Dizziness (Primary D x) Start: 12-06-2022 End: 12-06-2022 ambulatory Jamila O'Fran PT [facility] Comment on above: Dizziness (Primary D x) Start: 12-02-2022 End: 12-02-2022 ambulatory Jamila O'Fran PT [facility] Comment on above: Dizziness (Primary D x) Lumbosacral radiculi tis (Primary Dx) Start: 11-26-2022 Telephone encounter Angie navarrete APRN.WEIGHT ANALYST Work Phone: [facility] [place] Comment on above: Results Start: 11-26-2022 End: 11-26-2022 Patient encounter procedure Albin Balderrama DO Work Phone: [facility] Comment on above: Chronic right-sided low back pain without sciatica (Primary Dx) Start: 11-23-2022 End: 11-23-2022 Patient encounter procedure Quita Barth APRN.WEIGHT ANALYST Work Phone: Pain Management Comment on above: Lumbar facet arthrop athy (Primary Dx); Lumbar spondylosis; History of lumbar spinal fusion; Myalgia; Postlaminectomy syndrome Start: 11-23-2022 Telephone encounter Lars hunter MD Work Phone: [facility] Comment on above: Home Care Assistant - O ther (xrays) Start: 11-22-2022 End: 11-22-2022 Office outpatient visit 25 minutes Angie Aguirre APRN.WEIGHT ANALYST Work Phone: [facility] Comment on above: Dizziness (Primary D x); Encounter for screening mammogram for breast cancer; Hyperlipidemia, unspecified hyperlipidemia type; Primary hypertension; Gastroesophageal reflux disease, unspecified whether esophagitis present; Post-surgical hypothyroidism Start: 11-18-2022 End: 11-18-2022 ambulatory Reza Valerio PT Work Phone: [facility] Comment on above: Lumbosacral radiculi tis (Primary Dx) Start: 11-15-2022 End: 11-15-2022 Subsequent hospital visit by physician Elizabeth Sampson MD Work Phone: Gastroenterology Comment on above: Gastroesophageal ref lux disease, unspecified whether esophagitis present [K21.9] Start: 11-11-2022 End: 11-11-2022 ambulatory Whitney Darby YARD LOADER OPERATOR Work Phone: [facility] Comment on above: Lumbosacral radiculi tis (Primary Dx) Start: 11-08-2022 Telephone encounter Glory Beatty [facility] Comment on above: Appointment; Educati on Of Patient/family (11/15/22 appt ) Start: 11-05-2022 ambulatory Albin Hoskins O Work Phone: [facility] Comment on above: R hip pain Start: 09-24-2022 End: 09-24-2022 ambulatory Reza Valerio PT Work Phone: [facility] Comment on above: Lumbosacral radiculi tis (Primary Dx) Start: 09-17-2022 End: 09-17-2022 ambulatory Reza Valerio PT Work Phone: [facility] Comment on above: Lumbosacral radiculi tis (Primary Dx) Start: 09-15-2022 Get Medical Advice Angie Aguirre APRN.WEIGHT ANALYST Work Phone: [facility] Comment on above: prescription refills Start: 09-10-2022 End: 09-10-2022 ambulatory Whitney Robertotanisha YARD LOADER OPERATOR Work Phone: [facility] Comment on above: Lumbosacral radiculi tis (Primary Dx) Start: 09-09-2022 End: 09-09-2022 Nursing evaluation of patient and report Mi Nurse Work Phone: [facility] Comment on above: Osteoporosis without current pathological fracture, unspecified osteoporosis type (Primary Dx) Start: 09-06-2022 Orders Only Brando Gibson MD Work Phone: Pain Management Comment on above: Lumbar facet arthrop athy (Primary Dx); Lumbar spondylosis; History of lumbar spinal fusion; Chronic bilateral low back pain without sciatica Clopidogrel Refill Start: 09-03-2022 End: 09-03-2022 ambulatory Reza Valerio PT Work Phone: [facility] Comment on above: Lumbosacral radiculi tis Start: 08-27-2022 End: 08-27-2022 Patient encounter procedure Albin Balderrama DO Work Phone: [facility] Comment on above: Lumbosacral radiculi tis (Primary Dx) Start: 08-27-2022 ambulatory [facility]-C [facility] Comment on above: [facility] Start: 08-20-2022 Telephone encounter Shira ramírez BIOINFORMATICS SOFTWARE ENGINEER.WEIGHT ANALYST Work Phone: [facility] Comment on above: Results (Xray Hips ) Start: 08-19-2022 End: 08-19-2022 Subsequent hospital visit by physician Xr [facility] Work Phone: Radiology Comment on above: Hip pain [M25.559] Start: 08-19-2022 ambulatory Angie Aguirre BIOINFORMATICS SOFTWARE ENGINEER.WEIGHT ANALYST Work Phone: [facility] Comment on above: pain in L hip and le g Start: 08-19-2022 End: 08-24-2022 Patient encounter procedure Shira Rowe BIOINFORMATICS SOFTWARE ENGINEER.WEIGHT ANALYST Work Phone: [facility] Comment on above: Hip pain (Primary Dx ) Start: 08-19-2022 Telephone encounter Angie navarrete APRN.WEIGHT ANALYST Work Phone: [facility] Comment on above: Patient Question; Or ders Start: 08-09-2022 End: 08-09-[address] Carmina Grissom Work Phone: [facility] Start: 07-26-2022 End: 07-26-2022 Patient encounter procedure [facility]ia Mckeon PA-C [facility] Comment on above: Gastroesophageal ref lux disease, unspecified whether esophagitis present (Primary Dx); Hoarseness, chronic; Other constipation Start: 06-30-2022 ambulatory Angie Aguirre APRN.WEIGHT ANALYST Work Phone: [facility] Comment on above: Reflux Medication Start: 06-24-2022 End: 06-24-[address] Carmina Grissom Work Phone: [facility] Work Phone: Start: 06-24-2022 End: 06-24-[address] [facility]issom [facility] Start: 06-24-[address] Poncho Grissom Work Phone[facility] Start: 06-11-2022 End: 06-11-[address] Carmina Grissom Work Phone: [facility] Start: 05-28-2022 End: 05-28-[address] Carmina Grissom Work Phone: [facility] Start: 05-25-2022 End: 05-25-2022 Patient encounter procedure Quita Barth APRN.WEIGHT ANALYST Work Phone: Pain Management Comment on above: History of lumbar sp inal fusion (Primary Dx); Piriformis muscle pain; Myalgia Start: 05-23-2022 ambulatory Albin Winchester Work Phone: [facility] Comment on above: Pain in R wrist and thumb Start: 05-20-2022 End: 05-20-2022 Patient encounter procedure Red Tom MD Work Phone: Otolaryngology Comment on above: Chronic cough (Prima ry Dx); Hoarseness Start: 04-28-2022 End: 04-28-2022 Patient encounter procedure Albin Balderrama DO Work Phone: [facility] Comment on above: De Quervain's tenosy novitis, right (Primary Dx) Start: 03-09-2022 End: 03-09-2022 Nursing evaluation of patient and report Mi Nurse Work Phone: [facility] Comment on above: Osteoporosis without current pathological fracture, unspecified osteoporosis type (Primary Dx) Start: 03-03-2022 End: 03-03-2022 Patient encounter procedure Quita Barth APRN.WEIGHT ANALYST Work Phone: Pain Management Comment on above: Lumbar spondylosis ( Primary Dx); Lumbar facet arthropathy; Postlaminectomy syndrome; History of lumbar spinal fusion Start: 02-05-2022 End: 02-05-2022 ambulatory Reza Valerio PT [facility] Comment on above: Lumbar spondylosis ( Primary Dx) Start: 01-29-2022 End: 01-29-2022 ambulatory Reza Valerio PT [facility] Comment on above: Lumbar spondylosis ( Primary Dx) Start: 01-20-2022 ambulatory Angie Aguirre APRN.WEIGHT ANALYST Work Phone: [facility] Comment on above: Medical care Start: 01-06-2022 Telephone encounter Quita sandoval BIOINFORMATICS SOFTWARE ENGINEER.WEIGHT ANALYST Work Phone: Pain Management Comment on above: Results Start: 01-06-2022 End: 01-06-2022 Patient encounter procedure Quita Barth BIOINFORMATICS SOFTWARE ENGINEER.WEIGHT ANALYST Work Phone: Pain Management Comment on above: Lumbar spondylosis ( Primary Dx); Lumbar facet arthropathy; Postlaminectomy syndrome; History of lumbar spinal fusion Start: 01-06-2022 End: 01-06-2022 Subsequent hospital visit by physician [facility] Anel Garcia Work Phone: Radiology Comment on above: Lumbar spondylosis [ M47.816] Start: 01-01-2022 Orders Only Brando Gibson MD Work Phone: Pain Management Comment on above: Lumbar spondylosis ( Primary Dx); Lumbar facet arthropathy; Chronic bilateral low back pain without sciatica Start: 12-28-2021 ambulatory Brando Gibson MD Work Phone: Pain Management Comment on above: Report following inj ections 2 wk ago Start: 12-16-2021 End: 12-16-2021 Patient encounter procedure Albin Tacos CARRENO Work Phone: [facility] Comment on above: Thumb pain, right (P rimary Dx) Start: 12-01-2021 Orders Only Brando Gibson MD Work Phone: Pain Management Comment on above: Lumbar spondylosis ( Primary Dx); Lumbar facet arthropathy; Postlaminectomy syndrome; Chronic bilateral low back pain without sciatica Start: 11-30-2021 End: 11-30-2021 Patient encounter procedure Quita Barth APRN.WEIGHT ANALYST Work Phone: Pain Management Comment on above: Lumbar spondylosis ( Primary Dx); Lumbar facet arthropathy; Postlaminectomy syndrome; Chronic bilateral low back pain without sciatica Start: 11-13-2021 Telephone encounter Angie navarrete APRN.WEIGHT ANALYST Work Phone: [facility] [place] Comment on above: Results Start: 11-12-2021 End: 11-12-2021 Subsequent hospital visit by physician [facility] Work Phone: Radiology Comment on above: Generalized abdomina l pain [R10.84] Start: 10-05-2021 Telephone encounter Angie navarrete APRN.WEIGHT ANALYST Work Phone: [facility] [place] Comment on above: New Patient Start: 07-31-2021 ambulatory MALLORIE C VALLABH Facili ty:[facility] Start: 07-30-2021 ambulatory EFEWONGBE B OLEGHE Faci lity:[facility] Start: 07-06-2021 ambulatory MALLORIE C VALLABH Facili ty:[facility] Start: 07-03-2021 ambulatory EFEWONGBE B OLEGHE [facility] Start: 06-05-2021 ambulatory MALLORIE C VALLABH [facility] Start: 04-29-2021 ambulatory MALLORIE C VALLABH [facility] Start: 03-17-2021 ambulatory MALLORIE C VALLABH Facili ty:[facility] Start: 03-17-2021 End: 03-17-2021 Subsequent hospital visit by physician Mallorie Swann MD Work Phone: [facility] Comment on above: Arrived Start: 12-10-2016 End: 12-12-2016 Office outpatient visit 25 minutes [facility] Start: 10-25-2016 End: 10-25-2016 Phone Encounter [facility] Start: 08-17-2016 End: 08-17-2016 Office outpatient visit 15 minutes [facility] Start: 07-19-2016 End: 07-28-2016 Office outpatient visit 25 minutes [facility] Start: 07-13-2016 End: 07-13-2016 Phone Encounter [facility] Start: 05-28-2016 End: 05-30-2016 Office outpatient visit 15 minutes [facility] Start: 04-19-2016 End: 04-19-2016 Office outpatient visit 25 minutes [facility] Start: 03-22-2016 End: 03-23-2016 Office outpatient visit 15 minutes [facility] Start: 02-12-2016 End: 02-12-2016 Periodic preventive med est patient 65yrs& older [facility] Start: 01-08-2016 End: 01-08-2016 Office outpatient visit 5 minutes [facility] Start: 10-20-2015 End: 10-20-2015 Office outpatient visit 25 minutes [facility] Start: 07-08-2015 End: 07-08-2015 Office outpatient visit 5 minutes [facility] Start: 07-03-2015 End: 07-03-2015 Office outpatient visit 15 minutes [facility] Start: 05-27-2015 End: 05-27-2015 Office outpatient visit 25 minutes [facility] Start: 05-01-2015 End: 05-01-2015 Office outpatient visit 15 minutes [facility] Start: 04-09-2015 End: 04-10-2015 Office outpatient visit 25 minutes [facility] Start: 03-12-2015 End: 03-12-2015 Phone Encounter [facility] Start: 03-05-2015 End: 03-09-2015 Office outpatient visit 25 minutes [facility] Start: 01-28-2015 End: 01-30-2015 Office outpatient visit 25 minutes [facility] Start: 12-30-2014 End: 12-30-2014 Office outpatient visit 25 minutes [facility] Start: 11-29-2014 End: 11-29-2014 Phone Encounter [facility] Start: 11-27-2014 End: 11-27-2014 Office outpatient visit 5 minutes [facility] Start: 11-18-2014 End: 11-18-2014 Phone Encounter [facility] Start: 10-09-2014 End: 10-13-2014 Office outpatient visit 25 minutes [facility] Start: 07-23-2014 End: 07-23-2014 Office outpatient visit 25 minutes [facility] Start: 07-03-2014 End: 07-03-2014 Office outpatient visit 15 minutes [facility] Start: 05-22-2014 End: 05-22-2014 Office outpatient visit 5 minutes [facility] Start: 04-30-2014 End: 04-30-2014 Office outpatient visit 15 minutes [facility] Start: 04-10-2014 End: 04-11-2014 Office outpatient visit 25 minutes [facility] Start: 12-13-2013 End: 12-13-2013 Patient encounter procedure [facility] Start: 12-05-2013 End: 12-06-2013 Patient encounter procedure [facility] Start: 08-07-2013 End: 08-07-2013 Patient encounter procedure [facility] Start: 08-03-2013 End: 08-03-2013 Phone Encounter [facility] Start: 04-09-2013 End: 04-10-2013 Patient encounter procedure [facility] Start: 02-12-2013 End: 02-12-2013 Patient encounter procedure [facility] Start: 01-16-2013 End: 01-16-2013 Patient encounter procedure [facility] Start: 10-25-2012 End: 10-25-2012 Patient encounter procedure [facility] Start: 09-04-2012 End: 09-04-2012 Patient encounter procedure [facility] Start: 07-18-2012 End: 07-18-2012 Patient encounter procedure [facility] Start: 06-23-2012 End: 06-23-2012 Patient encounter procedure [facility] Start: 04-03-2012 End: 04-04-2012 Patient encounter procedure [facility] Start: 01-19-2012 End: 01-19-2012 Patient encounter procedure [facility] Start: 09-13-2011 End: 09-13-2011 Patient encounter procedure [facility] Start: 08-09-2011 End: 08-09-2011 Office outpatient visit 25 minutes [facility] Start: 07-23-2011 End: 07-26-2011 Patient encounter procedure [facility] Start: 05-18-2011 End: 05-18-2011 Patient encounter procedure [facility]elrogerio [facility] Start: 01-07-2011 End: 01-07-2011 Phone Encounter [facility]rogerio [facility] Start: 11-13-2010 End: 11-13-2010 Patient encounter procedure [facility] Start: 11-11-2010 End: 11-11-2010 Phone Encounter [facility]rogerio [facility] Start: 08-27-2010 End: 08-27-2010 Patient encounter procedure [facility] Start: 07-21-2010 End: 07-21-2010 Phone Encounter [facility]roger[facility] Start: 07-07-2010 End: 07-07-2010 Patient encounter procedure [facility] Start: 06-09-2010 End: 06-09-2010 Patient encounter procedure [facility]rogerio [facility] Start: 04-21-2010 End: 04-21-2010 Patient encounter procedure [facility] Start: 03-10-2010 End: 03-10-2010 Patient encounter procedure [facility]gerio [facility] Start: 03-04-2010 End: 03-04-2010 Patient encounter procedure [facility] Start: 10-31-2009 End: 11-02-2009 Patient encounter procedure [facility] Start: 09-17-2009 End: 09-17-2009 Patient encounter procedure [facility]rogerio [facility] Start: 09-03-2009 End: 09-04-2009 Patient encounter procedure [facility] Start: 08-05-2009 End: 08-05-2009 Patient encounter procedure [facility] Start: 06-30-2009 End: 06-30-2009 Phone Encounter [facility]rogerio [facility] Start: 03-31-2009 End: 03-31-2009 Patient encounter procedure [facility] Start: 03-07-2009 End: 03-14-2009 Patient encounter procedure [facility] Start: 01-29-2009 End: 01-30-2009 Patient encounter procedure [facility] Start: 01-28-2009 End: 01-28-2009 Historical Summary [facility] Start: 12-31-2008 End: 12-31-2008 Office outpatient visit 25 minutes [facility] Start: 12-11-2008 End: 12-11-2008 Phone Encounter Rakel Miki [facility] Start: 08-27-2008 End: 08-27-2008 Patient encounter procedure [facility] Start: 06-17-2008 End: 06-17-2008 Office outpatient visit 10 minutes [facility] Start: 05-14-2008 End: 05-14-2008 Patient encounter procedure [facility] Start: 04-15-2008 End: 04-15-2008 Patient encounter procedure [facility] Start: 04-05-2008 End: 04-07-2008 Patient encounter procedure [facility] Start: 03-04-2008 End: 03-04-2008 Patient encounter procedure [facility] Start: 12-18-2007 End: 12-18-2007 Patient encounter procedure [facility] Start: 12-18-2007 End: 12-18-2007 Patient encounter procedure [facility] Start: 09-20-2007 End: 09-20-2007 Office outpatient visit 15 minutes [facility] Start: 09-13-2007 End: 09-13-2007 Patient encounter procedure [facility] Start: 06-12-2007 End: 06-12-2007 Patient encounter procedure [facility] Start: 03-17-2007 End: 03-20-2007 Office outpatient visit 40 minutes [facility] Start: 01-18-2007 End: 01-18-2007 Patient encounter procedure [facility] Start: 12-21-2006 End: 12-21-2006 Patient encounter procedure [facility] Start: 10-18-2006 End: 10-18-2006 Patient encounter procedure [facility] Start: 09-29-2006 End: 09-29-2006 Home vst new patient mod-hi severity 45 minutes [facility] Start: 09-21-2006 End: 09-21-2006 Patient encounter procedure [facility] Start: 08-25-2006 End: 08-25-2006 Error Encounter [facility] Start: 08-01-2006 End: 08-01-2006 Historical Summary [facility] Start: 06-14-2006 End: 06-15-2006 Office outpatient visit 25 minutes [facility] Start: 06-10-2006 End: 06-10-2006 Historical Summary Rakel Livingston [facility] Procedures Date Procedure Procedure Detail Performing Clinician Start: 02-12-2025 PFIZER-BIONTECH COVID-19 VACCINE AGE 12+ YR (COMIRNATY) Antonietta Patrick MD Work Phone: Start: 02-07-2025 Bx breast w/device 1st lesion stereotactic guid Meagan White MD Work Phone: Start: 01-09-2025 Gram stain microscopy Trisha Corona HOUSE SUPERINTENDENT-C Work Phone: Start: 01-09-2025 Respiratory microbial culture Trisha Corona HOUSE SUPERINTENDENT-C Work Phone: Start: 01-01-2025 Digital breast tomosynthesis bilateral Angie Haagen BIOINFORMATICS SOFTWARE ENGINEER.WEIGHT ANALYST Work Phone: Start: 12-27-2024 Radiologic exam chest 2 views Jamila de leon BIOINFORMATICS SOFTWARE ENGINEER.WEIGHT ANALYST Work Phone: Start: 12-27-2024 STREP A MOLECULAR (POC) Jamila Latif BIOINFORMATICS SOFTWARE ENGINEER.WEIGHT ANALYST Work Phone: Start: 12-18-2024 Nucleic acid assay Trisha Corona HOUSE SUPERINTENDENT-C Work Phone: Start: 12-04-2024 Radiologic examination tibia & fibula 2 views Nelsy Lawton BIOINFORMATICS SOFTWARE ENGINEER.WEIGHT ANALYST Work Phone: Start: 06-05-2024 Digital breast tomosynthesis unilateral Angie Haagen BIOINFORMATICS SOFTWARE ENGINEER.WEIGHT ANALYST Work Phone: Start: 04-02-2024 Radiologic exam chest 2 views Angie Rinaldi agen BIOINFORMATICS SOFTWARE ENGINEER.WEIGHT ANALYST Work Phone: Start: 12-28-2023 Digital breast tomosynthesis bilateral Angie Haagen BIOINFORMATICS SOFTWARE ENGINEER.WEIGHT ANALYST Work Phone: Start: 09-03-2023 Radiologic exam chest 2 views Hue R Ath y PA-C Work Phone: Start: 08-01-2023 Myocardial spect multiple studies Angie Aguirre BIOINFORMATICS SOFTWARE ENGINEER.WEIGHT ANALYST Work Phone: Start: 06-16-2023 Nucleic acid assay HOUSE SUPERINTENDENT-C Angie Haagen HOUSE SUPERINTENDENT Work Phone: Start: 06-16-2023 Urine culture HOUSE SUPERINTENDENT-C Angie Aguirre HOUSE SUPERINTENDENT Work Phone: Start: 06-16-2023 Plain chest X-ray HOUSE SUPERINTENDENT-C Angie Aguirre HOUSE SUPERINTENDENT Work Phone: Start: 06-16-2023 CT of head without contrast HOUSE SUPERINTENDENT-C Angie Aguirre HOUSE SUPERINTENDENT Work Phone: Start: 06-08-2023 Urnls dip stick/tablet rgnt auto w/o microscopy Vivienne Viera BIOINFORMATICS SOFTWARE ENGINEER.WEIGHT ANALYST Work Phone: Start: 06-07-2023 Radiologic exam chest 2 views Angie navarrete BIOINFORMATICS SOFTWARE ENGINEER.WEIGHT ANALYST Work Phone: Start: 06-06-2023 Ecg routine ecg w/least 12 lds i&r only [facility] Provider Start: 03-15-2023 Us abdominal real time w/image limited Delia Mckeon PA-C Work Phone: Start: 03-04-2023 Colonoscopy flx dx w/collj spec when pfrmd Dee Concepcion PA-C Work Phone: Start: 12-31-2022 Mri spinal canal lumbar w/o & w/contr matrl Lars Alcantar MD Work Phone: Start: 12-31-2022 Ct lumbar spine w/o contrast material Lars Alcantar MD Work Phone: Start: 11-15-2022 Esophagogastroduodenoscopy transoral diagnostic Delia Mckeon PA-C Work Phone: Start: 08-19-2022 Radex hips bilateral with pelvis minimum 5 views Shira Rowe BIOINFORMATICS SOFTWARE ENGINEER.WEIGHT ANALYST Work Phone: Start: 04-06-2022 Adult depression screening assessment Albin Puente DO Work Phone: Start: 01-06-2022 Radex spine lumbosacral 2/3 views Quita Barth BIOINFORMATICS SOFTWARE ENGINEER.WEIGHT ANALYST Work Phone: Start: 11-12-2021 Us abdominal real time w/image limited Angie Aguirre APRN.WEIGHT ANALYST Work Phone: Start: 06-22-2019 Adult depression screening assessment Us 2 Work Phone: Start: 05-24-2017 End: 05-25-2017 Referral to respiratory physician Jp Vergara BUFFING WHEEL FORMER MACHINE-C Start: 03-07-2017 End: 06-01-2017 *CBC with Differential Carmina Grissom MD Work Phone: Start: 03-07-2017 End: 03-08-2017 Chest x-ray Carmina Grissom MD Work Phone: Start: 03-07-2017 End: 03-08-2017 DEXA scan Carmina Grissom MD Work Phone: Start: 12-23-2016 End: 12-23-2016 SCREENING MAMM (CAD), BILAT Comments: See Note; NOTES: [facility] Services [address] [place] [address] Verdana 4d SCREENING MAMM (CAD), BILAT MR#: [id number] Acct: [id number] Name: CHIARA CROFT Rep #: [id number] : 1945 F 71 From: Cb Martino MD PCP: Rakel Livingston DO Status: REG CLI Study: SCREENING MAMM (CAD), BILAT Date of Exam: 12/23/16 Exam# [id number] Ordering Dr: Rakel Livingston DO MAMMOGRAPHY - BILATERAL SCREENING REASON FOR EXAM: Female, 71 years old. Routine annual screening examination. PERTINENT HISTORY: Non-contributory. TECHNIQUE: Digital bilateral breast chiquita (3D mammographic acquisition) in the CC and MLO projections. 2-D mediolateral oblique (MLO) and craniocaudad (CC) views of both breasts were obtained. CAD: Full Field Digital Mammography with Computer Added Detection was performed. COMPARISON: Comparison is made with prior study dated December 11, 2015 and October 21, 2014. FINDINGS: Breast Composition: There are scattered areas of fibroglandular density. There are no dominant masses or suspicious calcifications. No other significant abnormalities are identified. There has been no significant change since the prior study. HPBI/SCREENING MAMM (CAD), BILAT IMPRESSION: Stable bilateral screening mammogram. Yearly follow-up mammogram recommended. (A) ASSESSMENT CATEGORY: BIRADS Category 1: Negative. A letter regarding these results will be sent to the patient by the facility within 30 days. Approximately 10% of breast cancers are not detected by mammography. A normal mammogram should not delay biopsy of a clinically suspicious abnormality. [id number] Electronically Signed: Cb Martino MD at 15:16 EDT Tel [phone], Service support , CC: Rakel Livingston DO Clam Treader: Signed Rakel Livingston Work Phone: Start: 06-14-2016 End: 06-14-2016 Hepatobilliary Imaging Comments: See Note; NOTES: [facility] Imaging Services [address] [place] [id number] Verdana 4d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 spinal canal. There is bilateral noncompressive foraminal stenosis L3-4: Normal endplates. There is an annular bulge. There is mild bilateral facet arthrosis. Normal central canal and bilateral lateral recesses. There is bilateral noncompressive foraminal stenosis. L4-5: There is mild endplate spondylosis. There is grade 1 degenerative spondylolisthesis. There is an annular bulge. There is severe bilateral facet arthrosis. There is left lateral recess stenosis (axial T2 series 5 image 8). There is bilateral foraminal stenosis with impingement of the L4 nerve roots. L5-S1: Normal endplates. There is a moderate annular bulge. There is bilateral facet arthrosis. Normal central canal and bilateral lateral recesses. Normal bilateral intervertebral neural foramina. Normal visualized sacral ala. There is moderate paraspinal muscular atrophy. IMPRESSION: Multilevel degenerative disc disease with multilevel annular bulges and facet arthrosis as outlined above at each level. Multilevel foraminal stenosis. L4-5 left lateral recess stenosis. Grade 1 degenerative spondylolisthesis. No significant interval change since the prior study. Electronically Signed: Ruben Ramsay MD, FACR at 13:48 EDT , Service support [phone], CC: Rakel Livingston DO; Dayna Love DO Clam Treader: Signed Dayna Love Work Phone: Start: 02-17-2015 End: 02-17-2015 Carotid Duplex Ultrasound Comments: See Note; NOTES: [facility] Cardiovascular Services [address] [place] [address] Carotid Duplex Ultrasound 02/17/15 1415 MR#: [id number] Acct: [id number] Name: CHIARA CROFT Rep #: [id number] : 1945 69 From: Estrada Kovacs MD Attending Dr: Rakel Livingston DO Status: REG CLI Ordering Dr: Rakel Livingston DO Date: 02/17/15 Location: [facility] Sex: F C Admitted: Rt. Velocities/BP Lt. Velocities/BP Prox CCA 60.3/17 cm/sec. Prox CCA 80.3/24 cm/sec. Mid CCA 58.9/15 cm/sec. Mid CCA 64.5/17 cm/sec. Dist CCA 52.9/19 cm/sec. Dist CCA 59.2/18.2 cm/sec. Prox ICA 37.3/11.6 cm/sec. Prox ICA 45.2/17.2 cm/sec. Mid ICA 40.5/15.9 cm/sec. Mid ICA 48.1/16.6 cm/sec. Dist ICA 51.1/19.2 cm/sec. Dist ICA 68.6/19.9 cm/sec. Rt. ICA/CCA = 0.9. Lt. ICA/CCA = 1.1. Prox ECA 52.1/12.7 cm/sec. Prox ECA 54.8/11 cm/sec. Rt. Vert. 46.9/14.1 cm/sec. Lt. Vert. 44/16.4 cm/sec. Right Extracranial There is homogeneous, smooth atherosclerotic plaque noted in the right common carotid artery. There is intimal thickening but no significant atherosclerotic plaque noted in the right internal carotid artery. There is intimal thickening but no significant atherosclerotic plaque noted in the right external carotid artery. Antegrade flow is noted in the right vertebral artery. Left Extracranial There is homogeneous, smooth atherosclerotic plaque noted in the left common carotid artery. There is intimal thickening but no significant atherosclerotic plaque noted in the left internal carotid artery. There is intimal thickening but no significant atherosclerotic plaque noted in the left external carotid artery. Antegrade flow is noted in the left vertebral artery. Procedure Carotid Duplex [id number]. The exam was diagnostic. Exam performed in department. Interpretation Summary Mild (<50%) stenosis right extracranial internal carotid. Mild (<50%) stenosis left extracranial internal carotid. Flow within the vertebral arteries is antegrade bilaterally. Ordering Physician: Rakel Livingston Performed By: AISHWARYA Vázquez 02/17/152026 Date Estrada Kovacs MD CC: Rakel Livingston DO Date Dictated: 02/17/15 1415 Date Transcribed: 02/17/152026 Clam Treader: Signed Rakel Livingston Work Phone: Start: 02-17-2015 End: 02-17-2015 Stress Test Echo w/o Contrast Comments: See Note; NOTES: [facility] Cardiovascular Services [address] [place] [address] STRESS TEST REPORT 02/17/1510 MR#: [id number] Acct: [id number] Name: CHIARA CROFT Rep #: [id number] : 1945 69 From: Arya Martinez MD Primary Care: Rakel Livingston DO Status: REG CLI Ordering Dr: Rakel Livingston DO Service Date: 02/17/15 Order Date: 02/17/15 Sex: F C Stress Results Protocol: Stress Echocardiogram Maximum Predicted HR: 150 bpm Target HR: 128 bpm % Maximum Predicted HR: 94 % Stage DurationHeart Rate BP (mm:ss) (bpm) BASELINE 73 118/78 JACKELYN PROTOCOL- STAGE 1 3:00 109 132/74 JACKELYN PROTOCOL- STAGE 2 3:00 121 144/74 JACKELYN PROTOCOL- STAGE 3 2:00 141 / RECOVERY 84 98/70 Stress Duration: 8:00 mm:ss Maximum Stress HR: 141 bpm Baseline Echocardiogram Findings Stress Echo Wall motion Data Resting WM Intermediate WM Stress WM Resting Wall Motion Wall Motion Stress No regional wall motion No regional wall motion abnormalities noted. abnormalities noted. Ejection Fraction 60 %. Ejection Fraction 70 %. EKG Data Baseline ECG demonstrates normal sinus rhythm with a rate of 74 beats per minute. Normal intervals are noted. The resting blood pressure was 118/74. The patient exercised according to the regular Jackelyn protocol for a total duration of 8 min. The maximum heart rate attained was 141 beats per minute. This was 94% of maximum predicted heart rate. The patient exercised into stage 3 of the Jackelyn protocol. At rest, there were no ST or T wave changes noted to suggest ischemia. At peak exercise, upsloping ST changes only were noted, which did not meet the criteria for ischemia. The peak blood pressure was 144/74. No arrhythmias noted. No clinical angina was noted. Interpretation Summary Normal resting LV systolic function. Nonstenotic valves. With stress, the LV size decreased and all segments augmented normally. The LVEF increased from 65% to 75%. Negative for ischemia at 94% of MPHR and at 10.1 METS. Normal exercise stress echo at a high workload. Ordering Physician: Rakel Livingston Referring Physician: Rakel Livingston D.O. Performed By: Jenny Angela RDCS 02/17/15 1550 Date Arya Martinez MD CC: Rakel Livingston DO Date Dictated: 02/17/15 0910 Date Transcribed: 02/17/151549 Clam Treader: Signed Rakel Livingston Work Phone: Start: 02-17-2015 End: 02-17-2015 Echocardiogram Complete Comments: See Note; NOTES: [facility] [address] [facility] [address] Echo Complete 02/17/1542 MR#: [id number] Acct: [id number] Name: CHIARA CROFT Rep #: [id number] : 1945 69 From: Arya Martinez MD Attending Dr: Rakel Livingston DO Status: REG CLI Ordering Dr: Rakel Livingston DO Date: 02/17/15 Location: [facility] Sex: F C Admitted: Procedure This was a 2D Doppler, Color Flow transthoracic echocardiogram. Exam performed in department. Left Ventricle Normal LV size. Left ventricular systolic function is normal. The estimated ejection fraction is 60 %. Transmitral and pulmonary venous doppler flow suggestive of impaired relaxation of left ventricle. No regional wall motion abnormalities noted. Right Ventricle Normal RV size. Normal systolic function. Atria Normal left atrium. Normal right atrium. Mitral Valve Normal mitral valve. Mild (1+) eccentric mitral valve insufficiency. Tricuspid Valve Normal tricuspid valve. Mild (1+) tricuspid valve insufficiency. Pulmonary artery systolic pressure is 28 mmHg. Aortic Valve Normal aortic valve. Trisinus/trileaflet aortic valve. Pulmonic Valve Normal pulmonic valve. Great Vessels Normal aortic root. The pulmonary artery is normal size. Normal inferior vena cava. Pericardium/Pleural No pericardial effusion. MMode/2D Measurements AND Calculations LVIDd: 3.5 cm IVSd: 1.0 cm Ao root diam: 3.1 cm LAV(MOD-bp): 40.0 ml LVIDs: 2.2 cm LVPWd: 0.87 cm Ao root area: 7.4 cm2 LAV(MOD-bp) Indexed: 23.6 ml/m2 RVDd: 3.3 cm FS: 37.0 % LA dimension: 3.4 cm LAV(MOD-sp2): 45.6 ml LAV(MOD-sp4): 34.2 ml LVAd ap4: 25.2 cm2 SV(MOD-sp4): 44.6 ml SV(sp4-el): 46.4 ml LA A4 area: 14.8 cm2 LVLd ap4: 7.4 cm EDV(MOD-sp4): 71.3 ml EDV(sp4-el): 73.3 ml LVAs ap4: 13.8 cm2 LVLs ap4: 6.0 cm ESV(MOD-sp4): 26.7 ml ESV(sp4-el): 26.9 ml EF(MOD-sp4): 62.5 % EF(sp4-el): 63.3 % RA A4 area: 13.7 cm2 Doppler Measurements AND Calculations MV E max naye: Lat Peak E' Naye: Med Peak E' Naye: Ao V2 max: 108.5 cm /sec 62.3 cm/sec 10.4 cm/sec 8.6 cm/sec Ao max P.7 mmHg MV A max naye: 68.1 cm/sec MV E/A: 0.91 LV V1 max: 89.7 cm/sec MR max naye: 445.8 cm/sec PA V2 max: 73.8 cm/sec PI max naye: 157.9 cm/sec LV V1 max P.2 mmHg MR max P.5 mmHg PA max P.2 mmHg PI max P.0 mmHg PI dec slope: 133.8 cm/sec2 TR max naye: E/E' lat: 6.0 E/E' med: 7.2 242.7 cm/sec TR max P.6 mmHg Interpretation Summary Normal LV size. Left ventricular systolic function is normal. The estimated ejection fraction is 60 %. Transmitral and pulmonary venous doppler flow suggestive of impaired relaxation of left ventricle Mild (1+) tricuspid valve insufficiency. Ordering Physician: Rakel Livingston Performed By: Jenny Angela RDCS 02/17/15 1212 Date Arya Martinez MD CC: Rakel Livingston DO Date Dictated: 02/17/15 0942 Date Transcribed: 02/17/15 1212 Clam Treader: Signed Rakel Beatty [employer] Work Phone: Start: 12-30-2014 End: 12-31-2014 Spmtry w/vc expiratory luke w/wo mxml vol vntj _ Rakel Beatty [employer] Work Phone: Comment on above: good effort and curve mild obst Start: 12-30-2014 End: 12-30-2014 Ecg routine ecg w/least 12 lds w/i&r [MEASUREMENTS ANALYSIS] Date of Test: 12/30/2014 15:53:13; Heart Rate: 67; GA Interval: 156; QRS: 88; QT Interval: 392; Corrected QT Interval (QTc): 404; P Wave [place]: -6; QRS Wave [place]: 10; T Wave [place]: 38; Blood Pressure: 132/72 [ECG DIAGNOSTIC STATEMENTS] Date of Test: 12/30/2014 15:53:13; Summary: Sinus Rhythm WITHIN NORMAL LIMITS Rakel Livingston Work Phone: Comment on above: ekg showed normal sinus rhythym, normal axis, no acute st/t wave changes Start: 10-21-2014 End: 10-22-2014 Bilat Scrn Digital AND CAD Comments: See Note; NOTES: [facility] Imaging Services [address] [place] [address] Breast Imaging Report MR#: [id number] Acct: [id number] Name: CHIARA CROFT Rep #: [id number] : 1945 F 69 From: Cb Martino MD PCP: Rakel Livingston DO Status: REG CLI Study: Bilat Scrn Digital AND CAD Date of Exam: 10/21/14 Exam# [id number] Ordering Dr: Rakel Livingston DO MAMMOGRAPHY - BILATERAL SCREENING REASON FOR EXAM: Female, 69 years old. Routine annual screening examination. PERTINENT HISTORY: Non-contributory. TECHNIQUE: Digital examination. Mediolateral oblique (MLO) and craniocaudad (CC) views of both breasts were obtained. CAD: CAD was performed on this study. COMPARISON: Comparison is made with prior study dated September 27, 2013 and August 24, 2012. FINDINGS: Breast Composition: There are scattered areas of fibroglandular density. There are no dominant masses or suspicious calcifications. No other significant abnormalities are identified. There has been no significant change since the prior study. IMPRESSION: Stable bilateral screening mammogram. Yearly follow-up recommended. (A) ASSESSMENT CATEGORY: BIRADS Category 2: Benign. A letter regarding these results will be sent to the patient by the facility within 30 days. Approximately 10% of breast cancers are not detected by mammography. A normal mammogram should not delay biopsy of a clinically suspicious abnormality. Electronically Signed: Cb Martino MD at 8:11 EST Tel [phone], Service support [phone], CC: Rakel Livingston DO Clam Treader: Signed Rakel Beatty [employer] Phone: Start: 07-23-2014 End: 07-23-2014 Spmtry w/vc expiratory luke w/wo mxml vol vntj _ Rakel Beatty [employer] Work Phone: Start: 05-09-2014 End: 05-09-2014 Abdomen/Pelvis WITH Contrast Comments: See Note; NOTES: [facility] Services [address] [place] [address] CAT Scan Report MR#: [id number] Acct: [id number] Name: CHIARA CROFT Rep #: [id number] : 1945 F 68 From: Cb Martino MD PCP: Rakel Livingston DO Status: REG CLI Study: Abdomen/Pelvis WITH Contrast Date of Exam: 05/09/14 Exam# [id number] Ordering Dr: Rakel Livingston DO STUDY: CT ABDOMEN AND PELVIS WITH CONTRAST REASON FOR EXAM: Female, 68 years old. Lower abdominal pain. RADIATION DOSAGE (If Supplied By Facility): CTDIvol = ( 49.65 ) mGy, DLP = ( 1294.76 ) mGycm TECHNIQUE: Transaxial images were obtained from the dome of the diaphragm to the symphysis pubis without oral contrast. 100 ml of Isovue 300 contrast was administered. Sagittal and coronal images were reconstructed. Delayed imaging was obtained as well. COMPARISON: None. FINDINGS: Mild increased markings at the lung bases suggestive of scarring and/or linear atelectasis. Mild degree of bronchiectasis in the lower lobes. There is a 4.6 mm pleural-based nodule in the right lower lobe. No calcification is seen within the The visualized portions of the heart are within normal limits. Sub-centimeters cyst is seen in the upper aspect of the right lobe of the liver. Normal gallbladder and extrahepatic biliary system. Normal spleen. Normal pancreas. Normal bilateral adrenal glands. Normal right kidney. Normal left kidney. There is a dilated left ovarian vein that empties into the left renal vein. There is a small hiatal hernia. Normal small intestine. There are multiple colonic diverticula consistent with diverticulosis. Mild circumferential wall thickening of the descending colon with mild degree of increased markings in the surrounding fat. Mild colitis should be ruled out. Followup is recommended. The appendix is visualized and appears normal. There is diffuse atherosclerotic calcification of the abdominal aorta, without a demonstrated aneurysm. Normal inferior vena cava. Normal retroperitoneum. Normal urinary bladder. Normal abdominal wall. There are diffuse degenerative changes of the visualized lumbar spine. Minimal retrolisthesis of L2 on L3. IMPRESSION: Findings suggestive of mild colitis of the descending colon. Scarring and/or atelectasis at the lung bases with a 4.6 mm noncalcified nodule in the peripheral aspect of the right lower lobe. Electronically Signed: Cb Martino MD at 15:38 EDT Tel [phone], Service support [phone], CC: Rakel Livingston DO Clam Treader: Signed Rakel Livingston Work Phone: Start: 04-17-2014 End: 04-18-2014 Transvaginal Non- Comments: See Note; NOTES: [facility] Imaging Services [address] [place] [address] Ultrasound Report MR#: [id number] Acct: [id number] Name: CHIARA CROFT Rep #: [id number] : 1945 F 68 From: Jason Cuellar MD PCP: Rakel Livingston DO Status: REG CLI Study: Transvaginal Non- Date of Exam: 04/17/14 Exam# [id number] Ordering Dr: Rakel Livingston DO STUDY: ULTRASOUND TRANSVAGINAL CLINICAL: Female, 68 years old. Pelvic pain TECHNIQUE: Transvaginal COMPARISON: None. FINDINGS: Normal uterine size measuring 5.7 cm in maximal craniocaudal dimension. There is a heterogeneous lesion at the anterior aspect of the fundus measures 1.4x0.9x1.3 cm most likely represent a fibroid. Normal endometrial thickness measuring 4 mm. There are no endometrial masses, and there is no fluid in the endometrial cavity. Normal uterine cervix. Normal right ovary, measuring 1.4x0.9x1.3 cm. There are multiple follicles without a dominant cyst. Normal left ovary, measuring 2.8x2.7x2.0 cm. There are multiple follicles without a dominant cyst. There is no free fluid in the pelvis. IMPRESSION: Uterine fibroid measures 1.4x0.9x1.3 cm Electronically Signed: Brad Cuellar MD at 15:08 EDT Tel , Service support [phone], CC: Rakel Livingston DO Clam Treader: Signed Rakel Livingston Work Phone: Start: 04-17-2014 End: 04-18-2014 Pelvic (Non ) Comments: See Note; NOTES: [facility] Imaging Services [address] [place] [address] Ultrasound Report MR#: [id number] Acct: [id number] Name: CHIARA CROFT Rep #: [id number] : 1945 F 68 From: Jason Cuellar MD PCP: Rakel Livingston DO Status: REG CLI Study: Pelvic (Non ) Date of Exam: 04/17/14 Exam# [id number] Ordering Dr: Rakel Livingston DO STUDY: ULTRASOUND TRANSVAGINAL CLINICAL: Female, 68 years old. Pelvic pain TECHNIQUE: Transvaginal COMPARISON: None. FINDINGS: Normal uterine size measuring 5.7 cm in maximal craniocaudal dimension. There is a heterogeneous lesion at the anterior aspect of the fundus measures 1.4x0.9x1.3 cm most likely represent a fibroid. Normal endometrial thickness measuring 4 mm. There are no endometrial masses, and there is no fluid in the endometrial cavity. Normal uterine cervix. Normal right ovary, measuring 1.4x0.9x1.3 cm. There are multiple follicles without a dominant cyst. Normal left ovary, measuring 2.8x2.7x2.0 cm. There are multiple follicles without a dominant cyst. There is no free fluid in the pelvis. IMPRESSION: Uterine fibroid measures 1.4x0.9x1.3 cm Electronically Signed: Brad Cuellar MD at 15:08 EDT Tel , Service support [phone], CC: Rakel Livingston DO Clam Treader: Signed Rakel Livingston Work Phone: Start: 04-11-2014 End: 04-11-2014 Dexa Bone Density Study (HP) Comments: See Note; NOTES: [facility] Services [address] [place] [address] Bone Density Report MR#: [id number] Acct: [id number] Name: CHIARA CROFT Rep #: [id number] : 1945 F 68 From: Cb Martino MD PCP: Rakel Livingston DO Status: [facility] CLI Study: Dexa Bone Density Study (HP) Date of Exam: 04/11/14 Exam# [id number] Ordering Dr: Rakel Liivngston DO STUDY: DUAL ENERGY X-RAY ABSORPTIOMETRY / DXA REASON FOR EXAM: Female, 68 years old. The patient is postmenopausal. TECHNIQUE: Bone Mineral Density (BMD) measurements of lumbar spine and bilateral hips were obtained. COMPARISON: Comparison is made with prior study dated March 28, 2012. FINDINGS: Lumbar Spine (L1-L4): g/cm2 (0.985) / T-score (-1.5) / Z-score (0.1) Findings are suggestive of osteopenia with a moderate fracture risk. Left Femur Total: g/cm2 (0.764) / T-score (-1.9) / Z-score (-0.5) Left Femoral Neck: g/cm2 (0.726) / T-score (-2.2) / Z-score (-0.6) Right Femur Total: g/cm2 (0.774) / T-score (-1.9) / Z-score (-0.4) Right Femoral Neck: g/cm2 (0.718) / T-score (-2.3) / Z-score (-0.6) The T-Scores on the most recent prior examination were: Lumbar Spine (L1-L4): There has been worsening of bone density since the previous examination. Left Femur Total: which represents a worsening of 8.6%. Right Femur Total: which represents a worsening of 4.0%. IMPRESSION: The patient is considered osteopenic as outlined below according to World Aravind Organization (WHO) criteria with a moderate fracture risk. There has been worsening of bone density since the previous examination. Reference Information: The T-score is the number of standard deviations above or below the standard which is normal for young adults at their peak bone mineral density. The World Health Organization (WHO) interprets the T-scores as follows: Above -1 Normal bone density Between -1 and -2.5 Osteopenia Equal to / or below -2.5 Osteoporosis As a practical clinical guideline, osteopenia may be graded as follows: Mild -1 through -1.5 Moderate -1.6 through -2.0 Severe -2.1 through -2.4 The Z-score is the number of standard deviations above or below age-matched controls. A Z-score of less than -1.5 would be considered abnormal. References: 1. NIH Osteoporosis and Related Bone Diseases http://www.osteo.org 2. International Society for Clinical Densitometry http://www.iscd.org 3. National Osteoporosis Foundation http://www.nof.org Electronically Signed: Cb Martino MD at 10:32 EDT Tel [phone], Service support [phone], CC: Rakel Livingston DO Clam Treader: Signed Rakel Livingston Work Phone: Start: 04-02-2014 End: 04-02-2014 Foot min 3 Views Comments: See Note; NOTES: [facility] [address] [place] [address] Radiology Report MR#: [id number] Acct: [id number] Name: CHIARA CROFT Rep #: [id number] : 1945 F 68 From: Teodoro Hill MD PCP: Rakel Livingston DO Status: REG CLI Study: Foot min 3 Views Date of Exam: 04/02/14 Exam# [id number] Ordering Dr: Katalina Gamez DO STUDY: X-RAY - RIGHT FOOT CLINICAL: Female, 68 years old. Pain and swelling in fourth toe. Fracture for one month. TECHNIQUE: 3 view(s) of the foot. COMPARISON: None. FINDINGS: There are superior and inferior calcaneal spurs with ossification of the distal Achilles tendon. Normal visualized subtalar, talonavicular, calcaneocuboid, tarsal and tarsometatarsal articulations. Normal metatarsi. Normal metatarsophalangeal joint of the great toe. Normal tibial and fibular sesamoid bones. Normal interphalangeal joint of the great toe. Normal phalanges of the great toe. Normal second through fifth metatarsophalangeal joints. There is an oblique fracture through the base of the proximal phalanx of the fourth digit with minimal reactive bone formation at the fracture site. The soft tissue structures are unremarkable. IMPRESSION: Healing fracture of the base of the fourth proximal phalanx. Electronically Signed: Teodoro Hill MD at 13:53 EDT , Service support [phone], CC: Katalina Gamez DO; Rakel Livingston DO Clam Treader: Signed Rakel Livingston Start: 09-27-2013 End: 09-28-2013 Bilat Scrn Digital & CAD Comments: See Note; NOTES: [facility] Imaging Services [address] [place] [address] Breast Imaging Report MR#: [id number] Acct: [id number] Name: CHIARA CROFT Rep #: [id number] : 1945 F 68 From: Cb Martino MD PCP: Rakel Livingston DO Status: REG CLI Exam# [id number] Ordering Dr: Rakel Livingston DO MAMMOGRAPHY - BILATERAL SCREENING REASON FOR EXAM: Female, 68 years old. Routine annual screening examination. PERTINENT HISTORY: Non-contributory. TECHNIQUE: Digital examination. Mediolateral oblique (MLO) and craniocaudad (CC) views of both breasts were obtained. CAD: CAD was performed on this study. COMPARISON: Comparison is made with prior study dated August 24, 2012 and July 09, 2011. FINDINGS: The breast composition is composed of scattered fibroglandular tissues ranging from 25% to 50% of the breast. There are no dominant masses or suspicious calcifications. No other significant abnormalities are identified. There has been no significant change since the prior study. IMPRESSION: Stable bilateral screening mammogram. Yearly follow-up recommended. (A) ASSESSMENT CATEGORY: BIRADS Category 2: Benign finding(s). A letter regarding these results will be sent to the patient by the facility within 30 days. Approximately 10% of breast cancers are not detected by mammography. A normal mammogram should not delay biopsy of a clinically suspicious abnormality. Electronically Signed: Cb Martino M.D. 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 Plan of Treatment Date Care Activity Detail Author Start: 03-26-2028 Diabetes Screening Diabetes Screening [facility] Start: 11-27-2027 Diabetes Screening Diabetes Screening [facility] Start: 02-01-2027 Diabetes Screening Diabetes Screening [facility] Start: 07-07-2026 Diabetes Screening Diabetes Screening [facility] Start: 06-08-2026 Diabetes Screening Diabetes Screening [facility] Start: 06-06-2026 Diabetes Screening Diabetes Screening [facility] Start: 03-09-2026 DIABETES SCREEN DIABETES SCREEN [facility] Start: 03-09-2026 Diabetes Screening Diabetes Screening [facility] Start: 02-16-2026 DIABETES SCREEN DIABETES SCREEN [facility] Start: 01-27-2026 DIABETES SCREEN DIABETES SCREEN [facility] Start: 01-16-2026 BP Controlled (<130/80) BP Controlled (<130/80) [facility] Start: 12-27-2025 BP Controlled (<130/80) BP Controlled (<130/80) [facility] Start: 12-12-2025 Annual PCP Team Chronic Disease Visit Annual PCP Team Chronic Disease Visit [facility] Start: 11-23-2025 DIABETES SCREEN DIABETES SCREEN [facility] Start: 11-19-2025 Annual PCP Team Chronic Disease Visit Annual PCP Team Chronic Disease Visit [facility] Start: 11-19-2025 BP Controlled (<130/80) BP Controlled (<130/80) [facility] in Start: 09-13-2025 End: 09-13-2025 Nursing evaluation of patient and report 09/13/2025 10:30 AM EST Nurse Visit [facility] [address] [place] [address] Nurse, Al [address] [place] [address] [facility] Comment on above: [facility] Start: 08-08-2025 Annual PCP Team Chronic Disease Visit Annual PCP Team Chronic Disease Visit [facility] Start: 07-17-2025 Annual PCP Team Chronic Disease Visit Annual PCP Team Chronic Disease Visit [facility] Start: 07-17-2025 Anxiety Screening Anxiety Screening [facility] Comment on above: Postponed from 1962 (Declined at t his time) Start: 07-17-2025 BP Controlled (<130/80) BP Controlled (<130/80) [facility] Start: 07-17-2025 Medicare Annual Wellness Visit Medicare Annual Wellness Visit [facility] Start: 07-12-2025 End: 07-12-2025 ambulatory 07/12/2025 8:30 AM EST Results Only [facility] [address] [place] [address] [facility] Start: 07-04-2025 End: 10-02-2025 Alanine aminotransferase [Enzymatic activity/volume] in Serum or Plasma ALANINE AMINOTRANSFERASE / SGPT Lab Routine Hyperlipidemia, unspecified hyperlipidemia type Expected: 07/04/2025, Expires: 10/02/2025 [facility] Work Phone: Comment on above: Expected: 07/04/2025, Expires: Start: 07-04-2025 End: 10-02-2025 Lipid 1996 panel - Serum or Plasma LIPID PANEL, FASTING Lab Routine Hyperlipidemia, unspecified hyperlipidemia type Expected: 07/04/2025, Expires: 10/02/2025 [facility] Comment on above: Expected: 07/04/2025, Expires: Start: 06-03-2025 End: 06-03-2025 Patient encounter procedure 06/03/2025 10:20 AM EDT Office Visit Family [facility] [address] [place] [address] Angie Aguirre BIOINFORMATICS SOFTWARE ENGINEER.WEIGHT ANALYST [address] [place] [address] FOLLOW UP 6 MONTH [facility] Comment on above: FOLLOW UP 6 MONTH Start: 05-31-2025 End: 05-31-2025 Patient encounter procedure 05/31/2025 1:00 PM EDT Office Visit [facility] [address] [place] [address] Angie Aguirre, BIOINFORMATICS SOFTWARE ENGINEER.WEIGHT ANALYST [address] [place] [address] FOLLOW UP 6 MONTH [facility] Comment on above: FOLLOW UP 6 MONTH Start: 05-13-2025 End: 05-13-2025 ambulatory 05/13/2025 4:15 PM EDT OT/PT/Speech Visit [facility] Physical Therapy [address] [place] [address] Karmen Amador PT Hamstring strain, right, initial encounter [S76.311A] [facility] Comment on above: Hamstring strain, right, initial encount er [S76.311A] Start: 04-30-2025 End: 04-30-2025 Follow-up encounter 04/30/2025 9:30 AM EDT [facility] [address] [address] Quita Barth BIOINFORMATICS SOFTWARE ENGINEER.WEIGHT ANALYST [address] [place] [address] Follow up Pain Management Comment on above: Follow up Start: 04-24-2025 End: 04-24-2025 Patient encounter procedure 04/24/2025 3:20 PM EDT Office Visit [facility] [address] [place] [address] Angie Aguirre, BIOINFORMATICS SOFTWARE ENGINEER.WEIGHT ANALYST [address] [place] [address] Persistent swelling in ankles and lower legs [facility] Comment on above: Persistent swelling in ankles and lower legs Start: 04-22-2025 Influenza vaccination [facility] Vacc[facility] Start: 04-18-2025 End: 04-18-2025 ambulatory 04/18/2025 9:15 AM EDT OT/PT/Speech Visit [facility] [address] [place] [address] Karmen Amador, PT Hamstring strain, right, initial encounter [S76.311A] [facility] Comment on above: Hamstring strain, right, initial encount er [S76.311A] Start: 04-16-2025 Annual PCP Team Chronic Disease Visit Annual PCP Team Chronic Disease Visit [facility] Start: 04-16-2025 BP Controlled (<130/80) BP Controlled (<130/80) [facility] Start: 04-02-2025 Annual PCP Team Chronic Disease Visit Annual PCP Team Chronic Disease Visit [facility] Start: 03-22-2025 End: 03-22-2025 ambulatory 03/22/2025 1:00 PM EDT OT/PT/Speech Visit [facility] Therapy [address] [place] [address] Karmen Amador, PT S76.311A (ICD-10-CM) - Hamstring strain, right, initial encounter [facility] Comment on above: S76.311A (ICD-10-CM) - Hamstring strain, right, initial encounter Start: 03-13-2025 End: 03-13-2025 Nursing evaluation of patient and report 03/13/2025 9:15 AM EDT Nurse Visit Family [facility] [address] [facility] [place] [address] Nurse, Al [address] [place] [address] [facility] Comment on above: Prol[facility] Start: 03-12-2025 End: 03-12-2025 ambulatory 03/12/2025 10:00 AM EDT OT/PT/Speech Visit [facility] [address] [place] [address] Karmen Amador, PT S76.311A (ICD-10-CM) - Hamstring strain, right, initial encounter [facility] Comment on above: S76.311A (ICD-10-CM) - Hamstring strain, right, initial encounter Start: 02-27-2025 End: 02-27-2025 Patient encounter procedure 02/27/2025 10:00 AM EDT Office Visit Pain Management [address] [address] Quita Barth, BIOINFORMATICS SOFTWARE ENGINEER.WEIGHT ANALYST [address] [place] [address] Medication Refill Pain Management Comment on above: Medication Refill Start: 02-25-2025 End: 02-25-2025 Patient encounter procedure 02/25/2025 10:00 AM EDT Office Visit Pain Management [address] [address] Quita Barth, BIOINFORMATICS SOFTWARE ENGINEER.WEIGHT ANALYST [address] [place] [address] Medication Refill Pain Management Comment on above: Medication Refill Start: 02-21-2025 End: 02-21-2025 Patient encounter procedure 02/21/2025 9:30 AM EDT Office Visit Pain Management [address] [address] Quita Barth, BIOINFORMATICS SOFTWARE ENGINEER.WEIGHT ANALYST [address] [place] [address] Medication Refill Pain Management Comment on above: Medication Refill Start: 02-20-2025 End: 02-20-2025 ambulatory 02/20/2025 9:45 AM EDT OT/PT/Speech Visit [facility] Therapy [address] [place] [address] Karmen Amador PT S76.311A (ICD-10-CM) - Hamstring strain, right, initial encounter [facility] Comment on above: S76.311A (ICD-10-CM) - Hamstring strain, right, initial encounter Start: 02-07-2025 End: 02-07-2025 Patient encounter procedure 02/07/2025 1:00 PM EDT Appointment Mammography [address] [phone] RIGHT BREAST STEREOTACTIC (3D UPRIGHT)BIOPSY Mammography Comment on above: RIGHT BREAST STEREOTACTIC (3D UPRIGHT)BI OPSY Start: 01-30-2025 End: 01-30-2025 ambulatory 01/30/2025 9:45 AM EDT OT/PT/Speech Visit [facility] [address] [place] [address] Karmen Amador, PT S76.311A (ICD-10-CM) - Hamstring strain, right, initial encounter [facility] Comment on above: S76.311A (ICD-10-CM) - Hamstring strain, right, initial encounter Start: 01-16-2025 End: 01-16-2025 Patient encounter procedure 01/16/2025 9:30 AM EDT Office Visit General Surgery [address] [place] [address] Meagan White MD [address] [place] [address] Breast General Surgery Comment on above: Breast Start: 01-09-2025 End: 01-09-2025 ambulatory 01/09/2025 9:45 AM EDT OT/PT/Speech Visit [facility] [address] [place] [address] Karmen Amador, PT S76.311A (ICD-10-CM) - Hamstring strain, right, initial encounter [facility] Comment on above: S76.311A (ICD-10-CM) - Hamstring strain, right, initial encounter Start: 01-01-2025 Annual PCP Team Chronic Disease Visit Annual PCP Team Chronic Disease Visit [facility] Start: 01-01-2025 BP Controlled (<130/80) BP Controlled (<130/80) [facility] in Start: 01-01-2025 End: 01-01-2025 Patient encounter procedure Mammogram Comment on above: 6 MONTH FOLLOW UP COMP CALCS 6 MO RT Start: 12-27-2024 End: 03-28-2025 Fungus identified in Unspecified specimen by Culture [facility] Work Phone: Comment on above: Expected: 12/27/2024, Expires: Start: 12-20-2024 End: 03-21-2025 QUANTITATIVE TOXICOLOGY PANEL, URINE QUANTITATIVE TOXICOLOGY PANEL, URINE Lab Routine Continuous use of opioids Other spondylosis, lumbar region Expected: 12/20/2024, Expires: 03/21/2025 [facility] Work Phone: Comment on above: Expected: 12/20/2024, Expires: Start: 12-20-2024 End: 03-21-2025 TOXICOLOGY SCREEN, ROUTINE URINE TOXICOLOGY SCREEN, ROUTINE URINE Lab Routine Continuous use of opioids Other spondylosis, lumbar region Expected: 12/20/2024, Expires: 03/21/2025 [facility] Comment on above: Expected: 12/20/2024, Expires: Start: 12-20-2024 End: 12-20-2024 Patient encounter procedure 12/20/2024 9:00 AM EDT Office Visit Pain Management [address] [address] Quita Barth, BIOINFORMATICS SOFTWARE ENGINEER.WEIGHT ANALYST [address] [place] [address] Pain Med Review Pain Management Comment on above: Pain Med Review Start: 12-19-2024 End: 12-19-2024 ambulatory 12/19/2024 9:45 AM EDT OT/PT/Speech Visit [facility] [address] [place] [address] Karmen Amador PT S76.311A (ICD-10-CM) - Hamstring strain, right, initial encounter [facility] Comment on above: S76.311A (ICD-10-CM) - Hamstring strain, right, initial encounter Start: 12-05-2024 End: 07-06-2025 DBT Breast - bilateral diagnostic for implant MARK DIAG W CHIQUITA BILATERAL Radiology Routine Inconclusive mammogram Expected: 12/05/2024, Expires: 07/06/2025 [facility] Work Phone: Comment on above: Expected: 12/05/2024, Expires: Start: 11-28-2024 End: 11-28-2024 ambulatory 11/28/2024 8:15 AM EDT OT/PT/Speech Visit [facility] [address] [place] [address] Karmen Amador PT S76.311A (ICD-10-CM) - Hamstring strain, right, initial encounter [facility] Comment on above: S76.311A (ICD-10-CM) - Hamstring strain, right, initial encounter Start: 11-26-2024 DIABETES SCREEN DIABETES SCREEN [facility] Start: 11-26-2024 End: 11-26-2024 ambulatory 11/26/2024 8:45 AM EDT Results Only [facility] [address] [facility] [place] [address] Lab [facility] Comment on above: Lab Start: 11-20-2024 End: 11-20-2024 Patient encounter procedure 11/20/2024 3:00 PM EDT Office Visit Pain Management [address] [address] Quita Barth, BIOINFORMATICS SOFTWARE ENGINEER.WEIGHT ANALYST [address] [place] [address] Follow up Pain Management Comment on above: Follow up Start: 11-19-2024 End: 02-18-2025 CBC W Auto Differential panel - Blood COMPLETE BLOOD COUNT AND DIFFERENTIAL Lab Routine Hyperlipidemia, unspecified hyperlipidemia type Primary hypertension Expected: 11/19/2024, Expires: 02/18/2025 [facility] Comment on above: Expected: 11/19/2024, Expires: Start: 11-19-2024 End: 02-18-2025 Comprehensive metabolic 2000 panel - Serum or Plasma COMPREHENSIVE METABOLIC PANEL Lab Routine Hyperlipidemia, unspecified hyperlipidemia type Primary hypertension Expected: 11/19/2024, Expires: 02/18/2025 [facility] Comment on above: Expected: 11/19/2024, Expires: Start: 11-19-2024 End: 02-18-2025 Lipid 1996 panel - Serum or Plasma LIPID PANEL, FASTING Lab Routine Hyperlipidemia, unspecified hyperlipidemia type Expected: 11/19/2024, Expires: 02/18/2025 [facility] Work Phone: Comment on above: Expected: 11/19/2024, Expires: Start: 11-19-2024 End: 02-18-2025 Lipoprotein a [Mass/volume] in Serum or Plasma LIPOPROTEIN (A) Lab Routine Hyperlipidemia, unspecified hyperlipidemia type Expected: 11/19/2024, Expires: 02/18/2025 [facility] Comment on above: Expected: 11/19/2024, Expires: Start: 11-19-2024 End: 02-18-2025 Thyrotropin [Units/volume] in Serum or Plasma THYROID STIMULATING HORMONE Lab Routine Post-surgical hypothyroidism Expected: 11/19/2024, Expires: 02/18/2025 [facility] Comment on above: Expected: 11/19/2024, Expires: Start: 11-19-2024 End: 02-18-2025 Thyroxine (T4) free [Mass/volume] in Serum or Plasma T4 FREE/FREE THYROXINE Lab Routine Post-surgical hypothyroidism Expected: 11/19/2024, Expires: 02/18/2025 [facility] Comment on above: Expected: 11/19/2024, Expires: Start: 11-16-2024 Covid-19 Vaccine ( season) Covid-19 Vaccine () [facility] Start: 11-03-2024 Annual PCP Team Chronic Disease Visit Annual PCP Team Chronic Disease Visit [facility] Start: 11-03-2024 BP Controlled (<130/80) BP Controlled (<130/80) [facility] Start: 10-30-2024 Annual PCP Team Chronic Disease Visit Annual PCP Team Chronic Disease Visit [facility] Start: 10-30-2024 BP Controlled (<130/80) BP Controlled (<130/80) [facility] inic Start: 10-30-2024 End: 10-30-2024 ambulatory 10/30/2024 9:15 AM EDT OT/PT/Speech Visit [facility] [address] [place] [address] Karmen Amador, PT S76.311A (ICD-10-CM) - Hamstring strain, right, initial encounter [facility] Comment on above: S76.311A (ICD-10-CM) - Hamstring strain, right, initial encounter Start: 10-19-2024 End: 10-19-2024 Patient encounter procedure 10/19/2024 2:00 PM EST Office Visit Pain Management [address] [address] Quita Barth, BIOINFORMATICS SOFTWARE ENGINEER.WEIGHT ANALYST [address] [place] [address] Follow up Pain Management Comment on above: Follow up Start: 10-09-2024 End: 10-09-2024 ambulatory 10/09/2024 9:15 AM EST OT/PT/Speech Visit [facility] [address] [place] [address] Karmen Amador, PT S76.311A (ICD-10-CM) - Hamstring strain, right, initial encounter [facility] Comment on above: S76.311A (ICD-10-CM) - Hamstring strain, right, initial encounter Start: 10-01-2024 End: 10-01-2024 Follow-up encounter 10/01/2024 11:00 AM EST [facility] [address] [address] Quita Barth, BIOINFORMATICS SOFTWARE ENGINEER.WEIGHT ANALYST [address] [place] [address] Follow up Pain Management Comment on above: Follow up Start: 09-24-2024 End: 09-24-2024 Follow-up encounter 09/24/2024 11:00 AM EST [facility] [address] [address] Quita Barth APRN.WEIGHT ANALYST [address] [place] [address] Follow up Pain Management Comment on above: Follow up Start: 09-18-2024 End: 09-18-2024 ambulatory 09/18/2024 9:15 AM EST OT/PT/Speech Visit [facility] [address] [place] [address] Karmen Amador, PT S76.311A (ICD-10-CM) - Hamstring strain, right, initial encounter [facility] Comment on above: S76.311A (ICD-10-CM) - Hamstring strain, right, initial encounter Start: 09-13-2024 End: 09-13-2024 Nursing evaluation of patient and report 09/13/2024 10:00 AM EST Nurse Visit [facility] [address] [place] [address] Nurse, Al [address] [place] [address] [facility] Comment on above: [facility] Start: 09-12-2024 Annual PCP Team Chronic Disease Visit Annual PCP Team Chronic Disease Visit [facility] Start: 08-29-2024 End: 08-29-2024 ambulatory 08/29/2024 9:45 AM EST OT/PT/Speech Visit [facility] [address] [place] [address] Karmen Amador, PT S76.311A (ICD-10-CM) - Hamstring strain, right, initial encounter [facility] Comment on above: S76.311A (ICD-10-CM) - Hamstring strain, right, initial encounter Start: 08-21-2024 End: 08-21-2024 Patient encounter procedure 08/21/2024 10:30 AM EST Office Visit Pain Management [address] [address] Quita Barth, BIOINFORMATICS SOFTWARE ENGINEER.WEIGHT ANALYST [address] [place] [address] follow up - refills Pain Management Comment on above: follow up - refills Start: 08-13-2024 End: 08-13-2024 ambulatory 08/13/2024 9:00 AM EST OT/PT/Speech Visit [facility] [address] [place] [address] Karmen Amador, PT S76.311A (ICD-10-CM) - Hamstring strain, right, initial encounter [facility] Comment on above: S76.311A (ICD-10-CM) - Hamstring strain, right, initial encounter Start: 08-08-2024 End: 11-07-2024 25-hydroxyvitamin D3 [Mass/volume] in Serum or Plasma [facility] Work Phone: Comment on above: Expected: 08/08/2024, Expires: Start: 07-27-2024 End: 07-27-2024 ambulatory 07/27/2024 9:00 AM EST OT/PT/Speech Visit [facility] [address] [place] [address] Karmen Amador, PT S76.311A (ICD-10-CM) - Hamstring strain, right, initial encounter [facility] Comment on above: S76.311A (ICD-10-CM) - Hamstring strain, right, initial encounter Start: 07-23-2024 End: 07-23-2024 ambulatory 07/23/2024 8:15 AM EST OT/PT/Speech Visit [facility] [address] [place] [address] Karmen Amador, PT S76.311A (ICD-10-CM) - Hamstring strain, right, initial encounter [facility] Comment on above: S76.311A (ICD-10-CM) - Hamstring strain, right, initial encounter Start: 07-17-2024 End: 07-17-2024 Patient encounter procedure 07/17/2024 9:20 AM EST Office Visit [facility] [address] [facility] [place] [address] Angie Aguirre, JAGDEEP.WEIGHT ANALYST [address] [place] [address] f/u [facility] Comment on above: f/u Start: 07-12-2024 Annual PCP Team Chronic Disease Visit Annual PCP Team Chronic Disease Visit [facility] Start: 06-26-2024 End: 06-26-2024 Patient encounter procedure 06/26/2024 2:30 PM EST Office Visit Pain Management [address] [address] Quita Barth, BIOINFORMATICS SOFTWARE ENGINEER.WEIGHT ANALYST [address] [place] [address] follow up Pain Management Comment on above: follow up Start: 06-25-2024 End: 06-25-2024 ambulatory 06/25/2024 2:45 PM EST OT/PT/Speech Visit [facility] [address] [facility] [place] [address] Karmen Amador, PT Hamstring strain, right, initial encounter [S76.311A] [facility] Comment on above: Hamstring strain, right, initial encount er [S76.311A] Start: 06-21-2024 Annual PCP Team Chronic Disease Visit Annual PCP Team Chronic Disease Visit [facility] Start: 06-08-2024 BP Controlled (<130/80) BP Controlled (<130/80) [facility] Start: 06-06-2024 Annual PCP Team Chronic Disease Visit Annual PCP Team Chronic Disease Visit [facility] Start: 06-06-2024 BP Controlled (<130/80) BP Controlled (<130/80) [facility] Start: 06-06-2024 End: 06-06-2024 ambulatory 06/06/2024 10:30 AM EDT OT/PT/Speech Visit [facility] [address] [place] [address] Karmen Amador, PT Hamstring strain, right, initial encounter [S76.311A] [facility] Comment on above: Hamstring strain, right, initial encount er [S76.311A] Start: 06-05-2024 End: 06-05-2024 Patient encounter procedure Radiology Comment on above: Inconclusive mammogram [R92.2] Comp- 6 month f/u RT CALCS Start: 05-31-2024 End: 01-28-2025 MG Breast - right Diagnostic for implant MARK DIAGNOSTIC RIGHT Radiology Routine Inconclusive mammogram Expected: 05/31/2024, Expires: 01/28/2025 [facility] Work Phone: Comment on above: Expected: 05/31/2024, Expires: Start: 05-31-2024 End: 01-28-2025 US Breast - right limited US BREAST LTD RIGHT Radiology Routine Inconclusive mammogram Expected: 05/31/2024, Expires: 01/28/2025 [facility] Comment on above: Expected: 05/31/2024, Expires: Start: 05-22-2024 End: 05-22-2024 Patient encounter procedure 05/22/2024 2:30 PM EDT Office Visit Pain Management [address] [address] Quita Barth, BIOINFORMATICS SOFTWARE ENGINEER.WEIGHT ANALYST [address] [place] [address] Pain management following ablation Pain Management Comment on above: Pain management following ablation Start: 05-15-2024 End: 05-15-2024 ambulatory 05/15/2024 2:40 PM EDT [facility] [address] [place] [address] Angie Aguirre, BIOINFORMATICS SOFTWARE ENGINEER.WEIGHT ANALYST [address] [place] [address] Pain [facility] Comment on above: Pain Start: 05-14-2024 End: 05-14-2024 ambulatory 05/14/2024 10:45 AM EDT OT/PT/Speech Visit [facility] [address] [place] [address] Karmen Amador, PT S76.311A (ICD-10-CM) - Hamstring strain, right, initial encounter [facility] Comment on above: S76.311A (ICD-10-CM) - Hamstring strain, right, initial encounter Start: 05-03-2024 End: 05-03-2024 Patient encounter procedure 05/03/2024 7:45 AM EDT Appointment Radiology [address] [place] [id number] Asymptomatic postmenopausal status [Z78.0] Radiology Comment on above: Asymptomatic postmenopausal status [Z78. 0] Start: 04-25-2024 End: 04-25-2024 ambulatory 04/25/2024 9:45 AM EDT OT/PT/Speech Visit [facility] [address] [place] [address] Karmen Amador, PT S76.311A (ICD-10-CM) - Hamstring strain, right, initial encounter [facility] Comment on above: S76.311A (ICD-10-CM) - Hamstring strain, right, initial encounter Start: 04-22-2024 Covid-19 Vaccine ( season) Covid-19 Vaccine ( season) [facility] Start: 04-22-2024 Covid-19 Vaccine ( season) Covid-19 Vaccine ( season) [facility] Start: 04-22-2024 Influenza vaccination Influ[facility] Vacc[facility] Start: 04-17-2024 End: 04-17-2024 Admission to same day surgery center [facility] Comment on above: DESTRUCTION BY NEUROLYTIC AGENT PARAVERT EBRAL FACET JOINT NERVE(S) LUMBAR SINGLE FACET JOINT MARCELO W/IMAGE GUIDANCE FLUORO OR CT Start: 04-17-2024 End: 04-17-2024 Dstr nrolytc agnt parverteb fct sngl lmbr/sacral [place] OR Start: 04-17-2024 Subsequent hospital visit by physician [facility] Comment on above: Lumbar facet arthropathy [M47.816] Start: 04-17-2024 End: 04-17-2024 Patient encounter procedure 04/17/2024 1:00 PM EDT Office Visit [facility] [address] [place] [address] Angie Aguirre APRN.WEIGHT ANALYST [address] [place] [address] Followup on pain medication, cough [facility] Comment on above: Followup on pain medication, cough Start: 04-10-2024 End: 04-10-2024 Admission to same day surgery [facility] Comment on above: DESTRUCTION BY NEUROLYTIC AGENT PARAVERT EBRAL FACET JOINT NERVE(S) W/ IMAGING GUIDANCE LUMBAR SINGLE FACET JOINT BILATERAL Start: 04-10-2024 End: 04-10-2024 Dstr nrolytc agnt parverteb fct sngl lmbr/sacral [place] OR Start: 04-10-2024 Subsequent hospital visit by physician [facility] Comment on above: Lumbar facet arthropathy [M47.816] Start: 04-10-2024 End: 04-10-2024 Admission to same day surgery [facility] Comment on above: DESTRUCTION BY NEUROLYTIC AGENT PARAVERT EBRAL FACET JOINT NERVE(S) W/ IMAGING GUIDANCE LUMBAR SINGLE FACET JOINT BILATERAL DESTRUCTION BY NEURO LYTIC AGENT PARAVERTEBRAL FACET JOINT NERVE(S) LUMBAR SINGLE FACET JOINT MARCELO W/IMAGE GUIDANCE FLUORO OR CT Start: 04-10-2024 End: 04-10-2024 Dstr nrolytc agnt parverteb fct sngl lmbr/sacral [place] OR Start: 04-10-2024 Subsequent hospital visit by physician 04/10/2024 11:13 AM EDT Hospital Encounter [facility] [address] [place] [address] Brando Gibson MD [address] [facility] [id number] [place] [address] Lumbar facet arthropathy [M47.816] [facility] Comment on above: Lumbar facet arthropathy [M47.816] Start: 04-05-2024 End: 04-05-2024 ambulatory 04/05/2024 10:45 AM EDT OT/PT/Speech Visit [facility] Physical Therapy [address] [place] [address] Karmen Amador, PT Hamstring strain, right, initial encounter [S76.311A] [facility] Comment on above: Hamstring strain, right, initial encount er [S76.311A] Start: 03-29-2024 End: 03-29-2024 ambulatory 03/29/2024 1:15 PM EDT OT/PT/Speech Visit [facility] [address] [place] [address] Karmen Amador, PT Hamstring strain, right, initial encounter [S76.311A] [facility] Comment on above: Hamstring strain, right, initial encount er [S76.311A] Start: 03-19-2024 End: 03-19-2024 ambulatory 03/19/2024 9:45 AM EDT OT/PT/Speech Visit [facility] [address] [place] [address] Karmen Amador, PT Hamstring strain, right, initial encounter [S76.311A] [facility] Comment on above: Hamstring strain, right, initial encount er [S76.311A] Start: 03-15-2024 End: 03-15-2024 Patient encounter procedure 03/15/2024 9:30 AM EDT Office Visit Pain Management [address] [address] Quita Barth, BIOINFORMATICS SOFTWARE ENGINEER.WEIGHT ANALYST [address] [place] [address] increased pain Pain Management Comment on above: increased pain Start: 03-13-2024 End: 03-13-2024 Nursing evaluation of patient and report 03/13/2024 9:15 AM EDT Nurse Visit [facility] [address] [place] [address] Nurse, Al [address] [place] [address] [facility] Comment on above: [facility] Start: 03-12-2024 End: 03-12-2024 ambulatory 03/12/2024 4:15 PM EDT OT/PT/Speech Visit [facility] [address] [place] [address] Karmen Amador, PT Hamstring strain, right, initial encounter [S76.311A] [facility] Comment on above: Hamstring strain, right, initial encount er [S76.311A] Start: 03-05-2024 End: 03-05-2024 ambulatory 03/05/2024 12:15 PM EDT OT/PT/Speech Visit [facility] [address] [place] [address] Karmen Amador, PT Hamstring strain, right, initial encounter [S76.311A] [facility] Comment on above: Hamstring strain, right, initial encount er [S76.311A] Start: 02-24-2024 End: 02-24-2024 ambulatory 02/24/2024 2:30 PM EDT OT/PT/Speech Visit [facility] [address] [place] [address] Karmen Amador, PT S76.311A (ICD-10-CM) - Hamstring strain, right, initial encounter [facility] Comment on above: S76.311A (ICD-10-CM) - Hamstring strain, right, initial encounter Start: 02-16-2024 ANNUAL PCP TEAM CHRONIC DISEASE VISIT ANNUAL PCP TEAM CHRONIC DISEASE VISIT [facility] Start: 01-31-2024 End: 01-31-2024 ambulatory 01/31/2024 9:15 AM EDT OT/PT/Speech Visit [facility] [address] [place] [address] Karmen Amador, PT S76.311A (ICD-10-CM) - Hamstring strain, right, initial encounter [facility] Comment on above: S76.311A (ICD-10-CM) - Hamstring strain, right, initial encounter Start: 01-27-2024 End: 01-27-2024 ambulatory 01/27/2024 11:15 AM EDT OT/PT/Speech Visit [facility] [address] [place] [address] Karmen Amador, PT S76.311A (ICD-10-CM) - Hamstring strain, right, initial encounter [facility] Comment on above: S76.311A (ICD-10-CM) - Hamstring strain, right, initial encounter Start: 01-25-2024 End: 01-25-2024 ambulatory 01/25/2024 2:30 PM EDT OT/PT/Speech Visit [facility] [address] [place] [address] Karmen Amador, PT S76.311A (ICD-10-CM) - Hamstring strain, right, initial encounter [facility] Comment on above: S76.311A (ICD-10-CM) - Hamstring strain, right, initial encounter Start: 01-25-2024 End: 01-25-2024 Patient encounter procedure 01/25/2024 9:00 AM EDT Office Visit Vasculary Surgery [address] [place] [address] Syncope, unspecified syncope type [R55] [facility] Surgery Comment on above: Syncope, unspecified syncope type [R55] Start: 01-20-2024 End: 01-20-2024 ambulatory 01/20/2024 1:45 PM EDT OT/PT/Speech Visit [facility] [address] [place] [address] Karmen Amador, PT S76.311A (ICD-10-CM) - Hamstring strain, right, initial encounter [facility] Comment on above: S76.311A (ICD-10-CM) - Hamstring strain, right, initial encounter Start: 01-13-2024 End: 01-13-2024 ambulatory 01/13/2024 10:30 AM EDT OT/PT/Speech Visit [facility] [address] [place] [address] Karmen Amador, PT S76.311A (ICD-10-CM) - Hamstring strain, right, initial encounter [facility] Comment on above: S76.311A (ICD-10-CM) - Hamstring strain, right, initial encounter Start: 01-06-2024 BP CONTROLLED (<130/80) BP CONTROLLED (<130/80) [facility] Start: 01-06-2024 End: 01-06-2024 ambulatory 01/06/2024 10:30 AM EDT OT/PT/Speech Visit [facility] [address] [place] [address] Karmen Amador, PT S76.311A (ICD-10-CM) - Hamstring strain, right, initial encounter [facility] Comment on above: S76.311A (ICD-10-CM) - Hamstring strain, right, initial encounter Start: 01-02-2024 End: 04-02-2024 TOXICOLOGY SCREEN, ROUTINE URINE [facility] Comment on above: Expected: 01/02/2024, Expires: Start: 01-02-2024 End: 01-02-2024 Patient encounter procedure 01/02/2024 1:00 PM EDT Office Visit [facility] [address] [place] [address] Angie Aguirre APRN.WEIGHT ANALYST [address] [place] [address] Problem with inhaler (will need EKG, orthos, etc per [facility]) [facility] Comment on above: Problem with inhaler (will need EKG, ort hos, etc per [facility]) Start: 12-31-2023 BP CONTROLLED (<130/80) BP CONTROLLED (<130/80) [facility] Start: 12-30-2023 End: 12-30-2023 ambulatory 12/30/2023 11:15 AM EDT OT/PT/Speech Visit [facility] [address] [place] [address] Karmen Amador PT S76.311A (ICD-10-CM) - Hamstring strain, right, initial encounter [facility] Comment on above: S76.311A (ICD-10-CM) - Hamstring strain, right, initial encounter Start: 12-28-2023 End: 12-28-2023 Patient encounter procedure Mammogram Comment on above: Comp- bilateral diag mamm and us cb per jq, Rt calc, Lt asym, 3D prev. -ALS bilateral diag us cb per jq Start: 12-23-2023 End: 12-23-2023 ambulatory 12/23/2023 9:45 AM EDT OT/PT/Speech Visit [facility] [address] [place] [address] Karmen Amador, PT S76.311A (ICD-10-CM) - Hamstring strain, right, initial encounter [facility] Comment on above: S76.311A (ICD-10-CM) - Hamstring strain, right, initial encounter Start: 11-23-2023 ANNUAL PCP TEAM CHRONIC DISEASE VISIT ANNUAL PCP TEAM CHRONIC DISEASE VISIT [facility] Start: 11-23-2023 BP CONTROLLED (<130/80) BP CONTROLLED (<130/80) [facility] in Start: 09-14-2023 Covid-19 Vaccine () Covid-19 Vaccine () [facility] Start: 08-22-2023 Advance Directive Discussion Advance Directive Discussion [facility] Start: 08-22-2023 Depression Assessment Depression Assessment [facility] Start: 08-19-2023 ANNUAL PCP TEAM CHRONIC DISEASE VISIT ANNUAL PCP TEAM CHRONIC DISEASE VISIT [facility] Start: 08-19-2023 BP CONTROLLED (<130/80) BP CONTROLLED (<130/80) [facility] in Start: 07-26-2023 BP CONTROLLED (<130/80) BP CONTROLLED (<130/80) [facility] in Start: 07-10-2023 Covid-19 Vaccine () Covid-19 Vaccine () [facility] Start: 06-24-2023 Blood chemistry [facility] Start: 06-23-2023 Blood chemistry [facility] Start: 06-22-2023 Blood chemistry [facility] Start: 06-21-2023 Blood chemistry [facility] Start: 06-20-2023 Blood chemistry [facility] Start: 2023 Blood chemistry [facility] Start: 06-18-2023 [facility] Start: 06-18-2023 Patient discharge [facility] Start: 06-17-2023 Admission procedure [facility] Start: 06-17-2023 [facility] Start: 06-16-2023 Following clinical pathway protocol [facility] Start: 06-16-2023 Bacteria identified in Blood by Culture Blood Culture [facility] Start: 06-16-2023 Bacteria identified in Urine by Culture Urine Culture [facility] Start: 06-16-2023 Assessment of risk of venous thromboembolism [facility] Start: 06-16-2023 Bacterial nucleic acid assay [facility] Start: 06-16-2023 Elevation of head of bed [facility] Start: 06-16-2023 Incentive spirometry [facility] Start: 06-16-2023 Influenza virus A and B and SARS-CoV-2 (COVID-19) Ag panel - Upper respiratory specim [facility] Start: 06-16-2023 Inhalation therapy procedure [facility] Start: 06-16-2023 Insertion of catheter into peripheral vein [facility] Start: 06-16-2023 Measuring intake and output [facility] Start: 06-16-2023 Patient education [facility] Start: 06-16-2023 Physiotherapy of chest [facility] Start: 06-16-2023 Providing care according to standard [facility] Start: 06-16-2023 Provision of activity privileges [facility] Start: 06-16-2023 Referral to occupational therapist [facility] Start: 06-16-2023 Referral to service [facility] Start: 06-16-2023 Taking nasal swab [facility] Start: 06-16-2023 Bacteria identified in Sputum by Culture [facility] Start: 06-16-2023 Legionella pneumophila Ag [Presence] in Urine [facility] Start: 06-16-2023 Respiratory pathogens DNA and RNA panel - Respiratory specimen by AZRA with probe detection [facility] Start: 06-16-2023 Streptococcus pneumoniae antigen assay [facility] Start: 06-16-2023 End: 06-16-2023 [facility] Start: 06-16-2023 Admission procedure [facility] Start: 06-16-2023 [facility] Start: 06-16-2023 End: 06-16-2023 Blood culture [facility] Start: 06-10-2023 End: 09-09-2023 Basic metabolic 2000 panel - Serum or Plasma BASIC METABOLIC PNL Lab Routine Hyponatremia Expected: 06/10/2023, Expires: 09/09/2023 [facility] Work Phone: Comment on above: Expected: 06/10/2023, Expires: 4 Start: 04-22-2023 Influenza vaccination [facility] Start: 04-06-2023 Adult depression screening assessment DEPRESSION SCREENING [facility] Start: 04-06-2023 ANNUAL PCP TEAM CHRONIC DISEASE VISIT ANNUAL PCP TEAM CHRONIC DISEASE VISIT [facility] Start: 02-15-2023 End: 04-17-2023 25-hydroxyvitamin D3 [Mass/volume] in Serum or Plasma VITAMIN D 25 HYDROXY Lab Routine Muscle cramps Disorder of bone, unspecified Expected: 02/15/2023, Expires: 04/17/2023 [facility] Work Phone: Comment on above: Expected: 02/15/2023, Expires: 3 Start: 02-15-2023 End: 04-17-2023 Basic metabolic 2000 panel - Serum or Plasma BASIC METABOLIC PNL Lab Routine Hyponatremia Muscle cramps Expected: 02/15/2023, Expires: 04/17/2023 [facility] Work Phone: Comment on above: Expected: 02/15/2023, Expires: 3 Start: 02-15-2023 End: 04-17-2023 Calcium.ionized [Moles/volume] in Blood CALCIUM IONIZED BLOOD Lab Routine Muscle cramps Expected: 02/15/2023, Expires: 04/17/2023 [facility] Work Phone: Comment on above: Expected: 02/15/2023, Expires: 3 Start: 02-15-2023 End: 04-17-2023 Cortisol [Mass/volume] in Serum or Plasma CORTISOL BLD Lab Routine Hyponatremia Expected: 02/15/2023, Expires: 04/17/2023 [facility] Work Phone: Comment on above: Expected: 02/15/2023, Expires: Start: 02-15-2023 End: 04-17-2023 Creatine kinase [Enzymatic activity/volume] in Serum or Plasma CK CREATINE KINASE Lab Routine Muscle cramps Expected: 02/15/2023, Expires: 04/17/2023 [facility] Work Phone: Comment on above: Expected: 02/15/2023, Expires: 3 Start: 02-15-2023 End: 04-17-2023 Magnesium [Mass/volume] in Serum or Plasma MAGNESIUM BLD Lab Routine Muscle cramps Expected: 02/15/2023, Expires: 04/17/2023 [facility] Work Phone: Comment on above: Expected: 02/15/2023, Expires: Start: 02-15-2023 End: 04-17-2023 Parathyrin.intact [Mass/volume] in Serum or Plasma PTH INTACT BLD Lab Routine Muscle cramps Expected: 02/15/2023, Expires: 04/17/2023 [facility] Work Phone: Comment on above: Expected: 02/15/2023, Expires: 3 Start: 02-15-2023 End: 04-17-2023 Thyrotropin [Units/volume] in Serum or Plasma TSH BLD Lab Routine Post-surgical hypothyroidism Expected: 02/15/2023, Expires: 04/17/2023 [facility] Work Phone: Comment on above: Expected: 02/15/2023, Expires: Start: 02-15-2023 End: 04-17-2023 Thyroxine (T4) free [Mass/volume] in Serum or Plasma T4 FREE/FREE THYROX Lab Routine Post-surgical hypothyroidism Expected: 02/15/2023, Expires: 04/17/2023 [facility] Work Phone: Comment on above: Expected: 02/15/2023, Expires: 3 Start: 02-08-2023 ANNUAL PCP TEAM CHRONIC DISEASE VISIT ANNUAL PCP TEAM CHRONIC DISEASE VISIT [facility] Start: 02-08-2023 BP CONTROLLED (<130/80) BP CONTROLLED (<130/80) [facility] Start: 01-07-2023 End: 03-09-2023 Basic metabolic 2000 panel - Serum or Plasma BASIC METABOLIC PNL Lab Routine Hyponatremia Expected: 01/07/2023, Expires: 03/09/2023 [facility] Work Phone: Comment on above: Expected: 01/07/2023, Expires: Start: 01-07-2023 End: 05-28-2023 Thyrotropin [Units/volume] in Serum or Plasma TSH BLD Lab Routine Post-surgical hypothyroidism Expected: 01/07/2023, Expires: 05/28/2023 [facility] Work Phone: Comment on above: Expected: 01/07/2023, Expires: 3 Start: 01-07-2023 End: 05-28-2023 Thyroxine (T4) free [Mass/volume] in Serum or Plasma T4 FREE/FREE THYROX Lab Routine Post-surgical hypothyroidism Expected: 01/07/2023, Expires: 05/28/2023 [facility] Work Phone: Comment on above: Expected: 01/07/2023, Expires: Start: 11-22-2022 End: 01-22-2023 CBC W Auto Differential panel - Blood CBC + DIFF Lab Routine Expected: 11/22/2022, Expires: 01/22/2023 [facility] Work Phone: Comment on above: Expected: 11/22/2022, Expires: Start: 11-22-2022 End: 01-22-2023 Comprehensive metabolic 2000 panel - Serum or Plasma COMP METABOLIC PANEL Lab Routine Primary hypertension Expected: 11/22/2022, Expires: 01/22/2023 [facility] Work Phone: Comment on above: Expected: 11/22/2022, Expires: 3 Start: 11-22-2022 End: 01-22-2023 LIPID PANEL, NONFASTING LIPID PANEL, NONFASTING Lab Routine Hyperlipidemia, unspecified hyperlipidemia type Expected: 11/22/2022, Expires: 01/22/2023 [facility] Work Phone: Comment on above: Expected: 11/22/2022, Expires: Start: 11-22-2022 End: 01-22-2023 Magnesium [Mass/volume] in Serum or Plasma MAGNESIUM BLD Lab Routine Gastroesophageal reflux disease, unspecified whether esophagitis present Expected: 11/22/2022, Expires: 01/22/2023 [facility] Work Phone: Comment on above: Expected: 11/22/2022, Expires: Start: 11-22-2022 End: 01-22-2023 Thyrotropin [Units/volume] in Serum or Plasma TSH BLD Lab Routine Post-surgical hypothyroidism Expected: 11/22/2022, Expires: 01/22/2023 [facility] Work Phone: Comment on above: Expected: 11/22/2022, Expires: Start: 11-22-2022 End: 01-22-2023 Thyroxine (T4) free [Mass/volume] in Serum or Plasma T4 FREE/FREE THYROX Lab Routine Post-surgical hypothyroidism Expected: 11/22/2022, Expires: 01/22/2023 [facility] Work Phone: Comment on above: Expected: 11/22/2022, Expires: 3 Start: 10-23-2022 ANNUAL PCP TEAM CHRONIC DISEASE VISIT ANNUAL PCP TEAM CHRONIC DISEASE VISIT [facility] Start: 09-20-2022 COVID-19 VACCINE (6 - Pfizer series) COVID-19 VACCINE (6 - Pfizer series) [facility] Start: 08-22-2022 ADVANCE DIRECTIVE DISCUSSION ADVANCE DIRECTIVE DISCUSSION [facility] Start: 08-22-2022 DEPRESSION ASSESSMENT DEPRESSION ASSESSMENT [facility] Start: 06-11-2022 Patient referral [facility] Work Phone: Start: 04-22-2022 Influenza vaccination INFLUENZA (#1) [facility] Start: 02-05-2022 COVID-19 VACCINE (5 - Booster for Pfizer series) COVID-19 VACCINE (5 - Booster for Pfizer series) [facility] Start: 09-27-2021 COVID-19 VACCINE (4 - Booster for Pfizer series) COVID-19 VACCINE (4 - Booster for Pfizer series) [facility] Start: 08-22-2021 ADVANCE DIRECTIVE DISCUSSION ADVANCE DIRECTIVE DISCUSSION [facility] Start: 08-22-2021 DEPRESSION ASSESSMENT DEPRESSION ASSESSMENT [facility] Start: 04-29-2021 End: 04-29-2021 Telemedicine consultation with patient 04/29/2021 Telemedicine Multispecialty Mallorie Swann MD [address] [place] [address] [place] [address] [facility] Start: 04-22-2021 Influenza vaccination INFLUENZA VACCINE (#1) [facility] Start: 06-22-2020 Adult depression screening assessment DEPRESSION SCREENING [facility] Start: 03-31-2019 Urine microalbumin profile [facility] Start: 09-08-2017 End: 09-08-2017 Appointment Appointment [facility] Work Phone: Start: 07-05-2017 End: 07-05-2017 Appointment Appointment [facility] Work Phone: Start: 06-21-2017 End: 06-21-2017 Appointment Appointment [facility] Work Phone: Start: 06-06-2017 End: 06-06-2017 Follow Up Appt 3 months Follow Up Appt 3 months [facility] Work Phone: Start: 05-24-2017 End: 06-02-2017 Pulmonary Referral Pulmonary Referral Jackelyn Ji, [facility] [place] Victorina Mcneil, [address], [place], [address] [facility] Work Phone: Start: 05-03-2017 End: 05-03-2017 Mri spinal canal lumbar w/o contrast material MRI Lumbar Spine [facility] Work Phone: Start: 05-03-2017 End: 05-03-2017 Mri spinal canal thoracic w/o contrast matrl MRI Thoracic Spine [facility] Work Phone: Start: 04-27-2017 Screening for osteoporosis DEXA SCAN DISCUSSION [facility] Start: 03-31-2017 End: 03-31-2017 Radex shoulder complete minimum 2 views X-Ray, Shoulder [facility] Work Phone: Start: 03-31-2017 End: 03-31-2017 Radex spine cervical 2 or 3 views X-Ray, Spine, Cervical 2-3 views [facility] Work Phone: Start: 03-31-2017 End: 03-31-2017 Radex spine lumbscrl compl w/bending views min 6 X-Ray, Spine, Lumbar, complete with bending views [facility] Work Phone: Start: 03-07-2017 End: 03-08-2017 *CBC with Differential *CBC with Differential [facility] Work Phone: Start: 03-07-2017 End: 03-08-2017 Chest x-ray X-Ray, Chest, PA & Lateral [facility] Work Phone: Start: 03-07-2017 End: 03-08-2017 DEXA scan DEXA scan [facility] Work Phone: Start: 12-10-2016 Procedure Education Eprescribed prescriptions (C5040) [facility] Work Phone: Start: 12-10-2016 Comprehensive metabolic panel METABOLIC PANEL, COMPREHENSIVE (62525) [facility] Work Phone: Start: 12-10-2016 TSH Qn TSH (87939) [facility] Work Phone: Start: 12-10-2016 25 hydroxy includes fractions if performed Vitamin D Hydroxy (66005) [facility] Work Phone: Start: 08-17-2016 Provider Instructions for Treatment [facility] Work Phone: Start: 08-17-2016 Cul bact aerobic addl meths definitive ea isol Culture, Aerobic, Bacterial ID (40579) [facility] Work Phone: Start: 07-28-2016 C-reactive protein high sensitivity C-REACT PROT HIGH SENS(hsCRP) (72689) [facility] Work Phone: Start: 07-19-2016 Procedure Education Eprescribed prescriptions (G8553) [facility] Work Phone: Start: 07-19-2016 Blood count manual cell count each CBC with auto diff (33846) [facility] Work Phone: Start: 07-19-2016 Alpha-fetoprotein serum [id number] (45587) [facility] Work Phone: Start: 07-19-2016 Assay of parathormone PARATHORMONE (18591) [facility] Work Phone: Start: 07-19-2016 Comprehensive metabolic panel METABOLIC PANEL, COMPREHENSIVE (39071) [facility] Work Phone: Start: 05-28-2016 Procedure Education Eprescribed prescriptions (G8553) [facility] Work Phone: Start: 05-28-2016 Assay of parathormone PARATHORMONE (29541) [facility] Work Phone: Start: 05-28-2016 Comprehensive metabolic panel METABOLIC PANEL, COMPREHENSIVE (94112) [facility] Work Phone: Start: 05-28-2016 Alpha-fetoprotein serum [id number] (61814) [facility] Work Phone: Start: 04-19-2016 Procedure Education Eprescribed prescriptions (G8553) [facility] Work Phone: Start: 10-20-2015 Procedure Education Eprescribed prescriptions (G8553) [facility] Work Phone: Start: 10-20-2015 Blood count complete auto&auto difrntl wbc CBC W/AUTO DIFF WBC (50848) [facility] Work Phone: Start: 10-20-2015 25 hydroxy includes fractions if performed Vitamin D Hydroxy (35427) [facility] Work Phone: Start: 10-20-2015 TSH Qn TSH (54847) [facility] Work Phone: Start: 10-20-2015 Comprehensive metabolic panel METABOLIC PANEL, COMPREHENSIVE (00359) [facility] Work Phone: Start: 07-03-2015 Patient Education Sinusitis *: sinus infection [facility] Work Phone: Start: 07-03-2015 Procedure Education Eprescribed prescriptions (G8553) [facility] Work Phone: Start: 05-27-2015 Procedure Education Eprescribed prescriptions (G8553) [facility] Work Phone: Start: 05-01-2015 Procedure Education Eprescribed prescriptions (G8553) [facility] Work Phone: Start: 05-01-2015 Provider Instructions for Treatment Follow up - Make appt after diagnostic tests [facility] Work Phone: Start: 04-09-2015 Procedure Education Eprescribed prescriptions (G8553) [facility] Work Phone: Start: 04-09-2015 25 hydroxy includes fractions if performed Vitamin D Hydroxy (78927) [facility] Work Phone: Start: 04-09-2015 Blood count complete auto&auto difrntl wbc CBC W/AUTO DIFF WBC (37401) [facility] Work Phone: Start: 04-09-2015 Comprehensive metabolic panel METABOLIC PANEL, COMPREHENSIVE (28243) [facility] Work Phone: Start: 04-09-2015 TSH Qn TSH (85523) [facility] Work Phone: Start: 03-22-2015 Comprehensive metabolic panel METABOLIC PANEL, COMPREHENSIVE (11452) [facility] Work Phone: Start: 03-22-2015 TSH Qn TSH (36234) [facility] Work Phone: Start: 03-22-2015 25 hydroxy includes fractions if performed Vitamin D Hydroxy (50566) [facility] Work Phone: Start: 03-05-2015 Procedure Education Eprescribed prescriptions (G8553) [facility] Work Phone: Start: 01-28-2015 Procedure Education Eprescribed prescriptions (G8553) [facility] Work Phone: Start: 12-30-2014 Antibody teresa-pickens eb virus early antigen ea EBV Panel (24556) [facility] Work Phone: Start: 12-30-2014 25 hydroxy includes fractions if performed Vitamin D Hydroxy (94457) [facility] Work Phone: Start: 12-30-2014 Urnls dip stick/tablet reagent auto microscopy URINALYSIS, W/ MICRO (54468) [facility] Work Phone: Start: 12-30-2014 Cobalamin (Vitamin B12) [Mass/Vol] VITAMIN B-12 (CYANOCOBALAMIN) (75513) [facility] Work Phone: Start: 12-30-2014 TSH Qn TSH (15315) [facility] Work Phone: Start: 12-30-2014 Blood count complete auto&auto difrntl wbc CBC W/AUTO DIFF WBC (37624) [facility] Work Phone: Start: 12-30-2014 Comprehensive metabolic panel METABOLIC PANEL, COMPREHENSIVE (39396) [facility] Work Phone: Start: 12-30-2014 Procedure Education Eprescribed prescriptions (G8553) [facility] Work Phone: Start: 10-09-2014 TSH Qn TSH (76586) [facility] Work Phone: Comment on above: 3 months Start: 10-09-2014 Procedure Education Eprescribed prescriptions (G8553) [facility] Work Phone: Start: 07-23-2014 Procedure Education Eprescribed prescriptions (G8553) [facility] Work Phone: Start: 07-03-2014 Provider Instructions for Treatment Follow up if no improvement or if symptoms worsen [facility] Work Phone: Start: 04-30-2014 Procedure Education Eprescribed prescriptions (G8553) [facility] Work Phone: Start: 04-10-2014 TSH Qn TSH (49336) [facility] Work Phone: Start: 04-10-2014 25 hydroxy includes fractions if performed Vitamin D Hydroxy (61305) [facility] Work Phone: Start: 04-10-2014 Blood count complete auto&auto difrntl wbc CBC W/AUTO DIFF WBC (04769) [facility] Work Phone: Start: 04-10-2014 Comprehensive metabolic panel METABOLIC PANEL, COMPREHENSIVE (53785) [facility] Work Phone: Start: 04-10-2014 Procedure Education Eprescribed prescriptions (G8553) [facility] Work Phone: Start: 04-10-2014 Provider Instructions for Treatment [facility] Work Phone: Start: 04-02-2014 End: 04-02-2014 Radex foot complete minimum 3 views X-Ray, Foot [facility] Work Phone: Start: 03-22-2014 Blood count manual cell count each CBC WITH MANUAL DIFF (57640) [facility] Work Phone: Start: 03-22-2014 25 hydroxy includes fractions if performed Vitamin D Hydroxy (93880) [facility] Work Phone: Start: 03-22-2014 Comprehensive metabolic panel METABOLIC PANEL, COMPREHENSIVE (71544) [facility] Work Phone: Start: 12-05-2013 TSH Qn TSH (75131) [facility] Work Phone: Start: 08-07-2013 Comprehensive metabolic panel METABOLIC PANEL, COMPREHENSIVE (17144) [facility] Work Phone: Start: 08-07-2013 25 hydroxy includes fractions if performed Vitamin D Hydroxy (10332) [facility] Work Phone: Start: 07-22-2013 TSH Qn TSH (55418) [facility] Work Phone: Start: 07-22-2013 Comprehensive metabolic panel METABOLIC PANEL, COMPREHENSIVE (62530) [facility] Work Phone: Start: 04-09-2013 aPTT Coag (Bld) [Time] PTT (Activated Partial Thromboplastin Time) (47113) [facility] Work Phone: Start: 04-09-2013 PT Coag (PPP) [Time] PT (Prothrobim Time) (52932) [facility] Work Phone: Start: 02-12-2013 Patient Education Diabetes and Illness: diabetes and illness [facility] Work Phone: Start: 02-12-2013 Blood count manual cell count each CBC WITH MANUAL DIFF (32793) [facility] Work Phone: Start: 02-12-2013 TSH Qn TSH (98713) [facility] Work Phone: Start: 02-12-2013 Free T4 [Mass/Vol] T4, FREE (THYROXINE) (32564) [facility] Work Phone: Start: 01-16-2013 Free T3 [Mass/Vol] T3, FREE (TRIDOTHYRONINE) (31137) [facility] Work Phone: Start: 01-16-2013 Free T4 [Mass/Vol] T4, FREE (THYROXINE) (89766) [facility] Work Phone: Start: 01-16-2013 Cobalamin (Vitamin B12) [Mass/Vol] VITAMIN B-12 (CYANOCOBALAMIN) (14650) [facility] Work Phone: Start: 10-25-2012 Patient Education Heartburn *: gerd [facility] Work Phone: Start: 07-18-2012 Provider Instructions for Treatment *Antibiotic Usage Education - Female [facility] Work Phone: Start: 07-18-2012 Blood count manual cell count each CBC WITH MANUAL DIFF (60484) [facility] Work Phone: Start: 07-18-2012 Comprehensive metabolic panel METABOLIC PANEL, COMPREHENSIVE (73186) [facility] Work Phone: Start: 07-18-2012 TSH Qn TSH (89171) [facility] Work Phone: Start: 07-18-2012 25 hydroxy includes fractions if performed Vitamin D Hydroxy (34781) [facility] Work Phone: Start: 06-23-2012 Patient Education Bruise: skin [facility] Work Phone: Start: 04-03-2012 Provider Instructions for Treatment [facility] Work Phone: Start: 04-03-2012 Comprehensive metabolic panel METABOLIC PANEL, COMPREHENSIVE (37834) [facility] Work Phone: Start: 04-03-2012 25 hydroxy includes fractions if performed Vitamin D Hydroxy (60944) [facility] Work Phone: Start: 04-03-2012 TSH Qn TSH (51110) [facility] Work Phone: Start: 01-19-2012 TSH Qn TSH (88079) [facility] Work Phone: Comment on above: 6 weeks Start: 09-13-2011 25 hydroxy includes fractions if performed Vitamin D Hydroxy (06447) [facility] Work Phone: Start: 09-13-2011 Comprehensive metabolic panel METABOLIC PANEL, COMPREHENSIVE (92016) [facility] Work Phone: Start: 09-13-2011 TSH Qn TSH (89523) [facility] Work Phone: Start: 08-09-2011 Provider Instructions for Treatment Laryngitis Education [facility] Work Phone: Start: 07-26-2011 Provider Instructions for Treatment *Antidepressant Usage [facility] Work Phone: Start: 05-18-2011 25 hydroxy includes fractions if performed Vitamin D Hydroxy (56504) [facility] Work Phone: Start: 05-18-2011 Comprehensive metabolic panel METABOLIC PANEL, COMPREHENSIVE (05148) [facility] Work Phone: Start: 05-18-2011 TSH Qn TSH (51233) [facility] Work Phone: Start: 11-13-2010 25 hydroxy includes fractions if performed Vitamin D Hydroxy (86547) [facility] Work Phone: Start: 11-13-2010 TSH Qn TSH (70957) [facility] Work Phone: Start: 11-13-2010 Hepatic function panel HEPATIC FUNCTION PANEL (09851) [facility] Work Phone: Start: 11-11-2010 25 hydroxy includes fractions if performed CALCIFIDIOL (85437) VIT D 25 [facility] Work Phone: Start: 11-11-2010 Blood count manual cell count each CBC with manual diff (85449) [facility] Work Phone: Start: 11-11-2010 TSH Qn TSH (54322) [facility] Work Phone: Start: 11-11-2010 Comprehensive metabolic panel Metabolic Panel, Comprehensive (54239) [facility] Work Phone: Start: 08-27-2010 Provider Instructions for Treatment [facility] Work Phone: Start: 08-27-2010 Iaadi bordetella prtussis/paraprtussis Bordetella Sp Ag, Direct Fluorecent Ab (39491) [facility] Work Phone: Start: 07-21-2010 25 hydroxy includes fractions if performed CALCIFIDIOL (39403) VIT D 25 [facility] Work Phone: Start: 03-10-2010 Provider Instructions for Treatment [facility] Work Phone: Start: 03-04-2010 25 hydroxy includes fractions if performed Vitamin D Hydroxy (26778) [facility] Work Phone: Start: 03-04-2010 TSH Qn TSH (25874) [facility] Work Phone: Start: 03-04-2010 Hepatic function panel HEPATIC FUNCTION PANEL (89434) [facility] Work Phone: Start: 10-31-2009 Hepatic function panel HEPATIC FUNCTION PANEL (30130) [facility] Work Phone: Start: 10-31-2009 TSH Qn TSH (80636) [facility] Work Phone: Start: 10-31-2009 25 hydroxy includes fractions if performed Vitamin D Hydroxy (21376) [facility] Work Phone: Start: 09-17-2009 Provider Instructions for Treatment *Antibiotic Usage Education - Female [facility] Work Phone: Start: 09-03-2009 Blood count manual cell count each CBC WITH MANUAL DIFF (52576) [facility] Work Phone: Start: 2009 Pneumococcal vaccination PNEUMOCOCCAL VACCINE SERIES (1 of 2 - PCV13) [facility] Start: 2009 PNEUMOVAX AGE 65 AND OVER WITH 5YR LOOKBACK (#1) PNEUMOVAX AGE 65 AND OVER WITH 5YR LOOKBACK (#1) [facility] Start: 03-23-2009 DIABETES SCREEN DIABETES SCREEN [facility] Start: 03-07-2009 TSH Qn TSH (37117) [facility] Work Phone: Start: 03-07-2009 Hepatic function panel HEPATIC FUNCTION PANEL (84271) [facility] Work Phone: Start: 01-29-2009 Provider Instructions for Treatment [facility] Work Phone: Start: 12-31-2008 Patient Education Sore throat: diagnosis and treatment [facility] Work Phone: Start: 12-31-2008 Provider Instructions for Treatment [facility] Work Phone: Start: 12-31-2008 Iaadiadoo influenza Rapid Flu (90519 x 2) [facility] Work Phone: Comment on above: done BC Start: 08-27-2008 Hepatic function panel HEPATIC FUNCTION PANEL (34944) [facility] Work Phone: Start: 12-18-2007 Hepatic function panel HEPATIC FUNCTION PANEL (96659) [facility] Work Phone: Start: 09-20-2007 Provider Instructions for Treatment [facility] Work Phone: Start: 09-13-2007 Hepatic function panel HEPATIC FUNCTION PANEL (25428) [facility] Work Phone: Start: 06-12-2007 Comprehensive metabolic panel METABOLIC PANEL, COMPREHENSIVE (68286) [facility] Work Phone: Start: 06-12-2007 TSH Qn TSH (51418) [facility] Work Phone: Start: 03-17-2007 Cul bact xcpt urine blood/stool aerobic isol SHIRLEY CULTURE-OTHER (74712) [facility] Work Phone: Start: 12-21-2006 Provider Instructions for Treatment FOLLOW UP IN 4 MONTHS [facility] Work Phone: Start: 12-21-2006 Blood count manual cell count each CBC WITH MANUAL DIFF (37827) [facility] Work Phone: Start: 12-21-2006 Comprehensive metabolic panel METABOLIC PANEL, COMPREHENSIVE (23257) [facility] Work Phone: Start: 12-21-2006 Hepatic function panel HEPATIC FUNCTION PANEL (37926) [facility] Work Phone: Comment on above: 4 mos Start: 10-18-2006 Provider Instructions for Treatment [facility] Work Phone: Start: 10-18-2006 Cytp cerv/vag auto thin layer prep mnl screen Thin prep Pap (21073) [facility] Work Phone: Start: 09-21-2006 Provider Instructions for Treatment FOLLOW UP IN 3 MONTHS [facility] Work Phone: Start: 09-21-2006 Hepatic function panel HEPATIC FUNCTION PANEL (87985) [facility] Work Phone: Start: 09-21-2006 TSH Qn TSH (90444) [facility] Work Phone: Start: 06-15-2006 Provider Instructions for Treatment FOLLOW UP IN 3 MONTHS [facility] Work Phone: Start: 2004 RSV Vaccine (1 - 1-dose 60+ series) RSV Vaccine (1 - 1-dose 60+ series) [facility] Start: 1994 SHINGRIX VACCINE (1 of 2) SHINGRIX VACCINE (1 of 2) [facility] Start: 1994 Zoster vaccine hzv live for subcutaneous use ZOSTER (SHINGLES) VACCINE (1 of 2) [facility] Start: 1989 Colonoscopy COLORECTAL CANCER SCREENING DISCUSSION [facility] Start: 1984 Screening mammography MAMMOGRAM SCREENING DISCUSSION [facility] Start: 1965 Screening for malignant neoplasm of cervix CERVICAL CANCER SCREENING DISCUSSION [facility] Start: 1963 Third diphtheria, tetanus and acellular pertussis (DTaP) vaccination TDAP (ADULT) [facility] Start: 1963 Urine microalbumin profile DTAP,TDAP,TD (1 - Tdap) [facility] Start: 1962 Anxiety Screening Anxiety Screening [facility] Start: 1962 BP CONTROLLED (<130/80) BP CONTROLLED (<130/80) [facility] Start: 1962 Depression Screening Depression Screening [facility] Start: 1962 HEPATITIS C SCREENING HEPATITIS C SCREENING [facility] Start: 1962 SPIROMETRY SPIROMETRY [facility] Start: 1962 Tetanus vaccination TETANUS [facility] Start: 1944 Hepatitis C antibody, confirmatory test HEPATITIS C VIRUS SCREENING [facility] Start: 1944 Thyroid stimulating hormone measurement TSH [facility] Alanine aminotransfe rase [Enzymatic activity/volume] in Serum or Plasma [facility] Albumin [Mass/volume ] in Serum or Plasma [facility] Alkaline phosphatase [Enzymatic activity/volume] in Serum or Plasma [facility] Anion gap measurement [facility] Aspartate aminotransferase [Enzymatic activity/volume] in Serum or Plasma [facility] Bacteria identified in Sputum by Culture [facility] Bacteria identified in Sputum by Culture [facility] Bacteria identified in Urine by Culture URINE CULTURE Microbiology Routine Urinary frequency Ordered: 06/08/2023 [facility] Work Phone: Comment on above: Ordered: 06/08/2023 Bilirubin, total measurement [facility] BUN/Creatinine ratio [facility] Calcium [Mass/volume ] in Serum or Plasma [facility] Carbon dioxide, tota l [Moles/volume] in Serum or Plasma [facility] Chloride [Moles/volu me] in Serum or Plasma [facility] End: 01-04-2024 COLONOSCOPY DIAGNOSTIC COLONOSCOPY DIAGNOSTIC Endoscopy Routine Other constipation Nausea Abnormal MRI of abdomen 1 Occurrences starting 01/03/2023 until 01/04/2024 [facility] Work Phone: Comment on above: 1 Occurrences starting 01/03/2023 until 01/04/2024 Creatinine [Moles/volume] in Serum or Plasma [facility] DBT Breast - bilater al screening MARK SCREENING W [place] Radiology Routine Encounter for screening mammogram for breast cancer 12/05/2023 11:31 AM EDT [facility] Work Phone: Dstr nrolytc agnt parverteb fct addl lmbr/sacral DSTR NROLYTC AGNT PARVERTEB FCT ADDL LMBR/SACRAL Procedures Routine Lumbar facet arthropathy Lumbar spondylosis Ordered: 03/15/2024 [facility] Comment on above: Ordered: 03/15/2024 Dstr nrolytc agnt parverteb fct sngl lmbr/sacral DSTR NROLYTC AGNT PARVERTEB FCT SNGL LMBR/SACRAL Procedures Routine Lumbar spondylosis Lumbar facet arthropathy Chronic bilateral low back pain without sciatica 1 Occurrences starting 12/30/2021 [facility] Work Phone: Comment on above: 1 Occurrences starting 12/30/2021 Dstr nrolytc agnt parverteb fct sngl lmbr/sacral DSTR NROLYTC AGNT PARVERTEB FCT SNGL LMBR/SACRAL Procedures Routine Lumbar facet arthropathy Lumbar spondylosis Ordered: 03/15/2024 [facility] Work Phone: Comment on above: Ordered: 03/15/2024 DXA Skeletal system.axial Views for bone density DXA-AXIAL SKELETON Radiology Routine Asymptomatic postmenopausal status 05/03/2024 8:10 AM EDT [facility] Work Phone: End: 06-06-2024 ECG COMPLETE ECG COMPLETE ECG Routine Chest discomfort 1 Occurrences starting 06/06/2023 until 06/06/2024 [facility] Work Phone: Comment on above: 1 Occurrences starting 06/06/2023 until 06/06/2024 ECG COMPLETE ECG COMPLETE ECG 06/06/2023 10:28 AM EDT [facility] End: 01-01-2025 ECG COMPLETE ECG COMPLETE ECG Routine Syncope, unspecified syncope type 1 Occurrences starting 01/02/2024 until 01/01/2025 [facility] Work Phone: Comment on above: 1 Occurrences starting 01/02/2024 until 01/01/2025 Echocardiography ECHO Cardiology Routine Chest discomfort Ordered: 06/06/2023 [facility] Work Phone: Comment on above: Ordered: 06/06/2023 End: 07-26-2023 EGD DIAGNOSTIC EGD DIAGNOSTIC Endoscopy Routine Gastroesophageal reflux disease, unspecified whether esophagitis present Hoarseness, chronic 1 Occurrences starting 07/26/2022 until 07/26/2023 [facility] Work Phone: Comment on above: 1 Occurrences starting 07/26/2022 until 07/26/2023 End: 03-17-2021 [facility] Work Phone: Comment on above: 1 Occurrences starting 03/17/2021 until 03/17/2021 Glucose [Mass/volume ] in Serum or Plasma [facility] Hematocrit [Volume Fraction] of Blood [facility] Hemoglobin [Mass/vol ume] in Blood [facility] Leukocytes [#/volume ] in Blood [facility] Magnesium [Mass/volu me] in Serum or Plasma [facility] End: 12-22-2023 MARK SCREENING W [place] MARK SCREENING W [place] Radiology Routine Encounter for screening mammogram for breast cancer 1 Occurrences starting 11/22/2022 until 12/22/2023 [facility] Work Phone: Comment on above: 1 Occurrences starting 11/22/2022 until 12/22/2023 Mean corpuscular hemoglobin concentration determination [facility] Mean corpuscular hemoglobin determination [facility] Measurement of renal function [facility] End: 01-05-2025 MG Breast - bilateral Diagnostic MARK DIAGNOSTIC BILATERAL Radiology Routine Inconclusive mammogram 1 Occurrences starting 12/07/2023 until 01/05/2025 [facility] Work Phone: Comment on above: 1 Occurrences starting 12/07/2023 until 01/05/2025 End: 02-15-2026 MG stereo Guidance for biopsy of Breast - right MARK STEREO BX BREAST RIGHT Radiology Routine Mammographic microcalcification found on diagnostic imaging of breast 1 Occurrences starting 01/16/2025 until 02/15/2026 [facility] Work Phone: Comment on above: 1 Occurrences starting 01/16/2025 until 02/15/2026 Neutrophil count [facility] Neutrophil percent differential count [facility] Njx anes&/strd w/img tfrml edrl lmbr/sac 1 lvl INJ TRANSFORAMINAL EPID ANES/STER LS SINGL Procedures Routine Lumbar spondylosis Lumbar foraminal stenosis Radiculopathy, lumbar region Ordered: 06/06/2023 [facility] Work Phone: Comment on above: Ordered: 06/06/2023 Njx dx/ther agt pvrt facet jt lmbr/sac 1 level NJX DX/THER AGT PVRT FACET JT LMBR/SAC 1 LEVEL Procedures Routine Lumbar spondylosis Lumbar facet arthropathy Ordered: 11/30/2021 [facility] Work Phone: Comment on above: Ordered: 11/30/2021 End: 07-05-2024 NM CARDIAC PERF STRESS/PHARM NM CARDIAC PERF STRESS/PHARM Radiology Routine Chest discomfort 1 Occurrences starting 06/06/2023 until 07/05/2024 [facility] Work Phone: Comment on above: 1 Occurrences starting 06/06/2023 until 07/05/2024 PAIN PANEL, UR QUANT PAIN PANEL, UR QUANT Lab Routine Medication monitoring encounter 01/02/2024 2:27 PM EDT [facility] PAIN PANEL, UR QUANT PAIN PANEL, UR QUANT Lab Routine Medication monitoring encounter 01/02/2024 2:27 PM EDT [facility] Patient Education ED Fall Prevention [facility] Work Phone: Patient referral [facility] Work Phone: Platelets [#/volume] in Blood [facility] Potassium [Moles/vol ume] in Serum or Plasma [facility] PT PLAN OF CARE CERTIFICATION PT PLAN OF CARE CERTIFICATION Procedures Routine Lumbosacral radiculitis Ordered: 09/03/2022 [facility] Work Phone: Comment on above: Ordered: 09/03/2022 PT PLAN OF CARE CERTIFICATION PT PLAN OF CARE CERTIFICATION Procedures Routine Lumbosacral radiculitis Ordered: 09/24/2022 [facility] Work Phone: Comment on above: Ordered: 09/24/2022 PT PLAN OF CARE CERTIFICATION PT PLAN OF CARE CERTIFICATION Procedures Routine Lumbosacral radiculitis Ordered: 11/18/2022 [facility] Work Phone: Comment on above: Ordered: 11/18/2022 PT PLAN OF CARE CERTIFICATION PT PLAN OF CARE CERTIFICATION Procedures Routine Lumbar spondylosis Ordered: 03/17/2023 [facility] Work Phone: Comment on above: Ordered: 03/17/2023 QUANTITATIVE TOXICOL OGY PANEL, URINE QUANTITATIVE TOXICOLOGY PANEL, URINE Lab Routine Continuous use of opioids Other spondylosis, lumbar region 11/26/2024 8:49 AM EDT [facility] End: 12-23-2023 Radex entir thrc lmbr crv sac spi w/skull 2/3 vw XR SCOLIOSIS PA STAND/LAT 2V Radiology Routine DDD (degenerative disc disease), lumbar 1 Occurrences starting 11/23/2022 until 12/23/2023 [facility] Work Phone: Comment on above: 1 Occurrences starting 11/23/2022 until 12/23/2023 Radex spine lumbosac ral 2/3 views XR LUMBAR LIMITED 2V FLEX/EXT Radiology Routine Lumbar spondylosis 01/06/2022 8:48 AM EDT [facility] Work Phone: Radex spine lumbosac ral minimum 4 views XR LUMBAR PARS DEFECT 4V AP/LAT/BOTH OBL Radiology Routine Lumbar spondylosis 01/06/2022 8:48 AM EDT [facility] Work Phone: End: 07-05-2024 Radiologic exam chest 2 views XR CHEST 2V FRONTAL/LAT Radiology Routine Chest discomfort 1 Occurrences starting 06/06/2023 until 07/05/2024 [facility] Work Phone: Comment on above: 1 Occurrences starting 06/06/2023 until 07/05/2024 Red blood cell count [facility] Red cell distributio n width determination [facility] Sodium [Moles/volume ] in Serum or Plasma [facility] SPECIMEN VALIDITY, URINE SPECIME N VALIDITY, URINE Lab Routine Medication monitoring encounter 01/02/2024 2:27 PM EDT [facility] SURGICAL PATHOLOGY [facility] Work Phone: Comment on above: Release Upon Ordering for 1 Occurrences starting 11/15/2022, 1 completed Tissue Pathology bio psy report [facility] Work Phone: Comment on above: Release Upon Ordering for 1 Occurrences starting 02/07/2025, 1 completed Total protein measurement [facility] TOXICOLOGY SCREEN, ROUTINE URINE TOXICOLOGY SCREEN, ROUTINE URINE Lab Routine Continuous use of opioids Other spondylosis, lumbar region 11/26/2024 8:49 AM EDT [facility] Urea nitrogen [Mass/volume] in Serum or Plasma [facility] End: 01-29-2024 US ABD RIGHT UPPER QUADRANT US ABD RIGHT UPPER QUADRANT Radiology Routine Gastroesophageal reflux disease without esophagitis Nausea 1 Occurrences starting 12/30/2022 until 01/29/2024 [facility] Work Phone: Comment on above: 1 Occurrences starting 12/30/2022 until 01/29/2024 End: 01-05-2025 US Breast - left limited US BREAST LTD LEFT Radiology Routine Inconclusive mammogram 1 Occurrences starting 12/07/2023 until 01/05/2025 [facility] Work Phone: Comment on above: 1 Occurrences starting 12/07/2023 until 01/05/2025 End: 01-05-2025 US Breast - right limited US BREAST LTD RIGHT Radiology Routine Inconclusive mammogram 1 Occurrences starting 12/07/2023 until 01/05/2025 [facility] Work Phone: Comment on above: 1 Occurrences starting 12/07/2023 until 01/05/2025 End: 01-01-2025 US Carotid arteries - bilateral US CAROTID ARTERIES [facility] V[facility] Lab Routine Syncope, unspecified syncope type 1 Occurrences starting 01/02/2024 until 01/01/2025 [facility] Comment on above: 1 Occurrences starting 01/02/2024 until 01/01/2025 End: 01-29-2024 XR ABDOMEN 1V SUPINE XR ABDOMEN 1V SUPINE Radiology Routine Other constipation 1 Occurrences starting 12/30/2022 until 01/29/2024 [facility] Work Phone: Comment on above: 1 Occurrences starting 12/30/2022 until 01/29/2024 End: 12-03-2024 XR Foot - right AP and Lateral and oblique XR FOOT GENERAL 3V AP/LAT/OBL RIGHT Radiology Routine Foot pain, right 1 Occurrences starting 11/04/2023 until 12/03/2024 [facility] Work Phone: Comment on above: 1 Occurrences starting 11/04/2023 until 12/03/2024 XR Foot - right AP a nd Lateral and oblique XR FOOT GENERAL 3V AP/LAT/OBL RIGHT Radiology Routine Foot pain, right 11/09/2023 9:35 AM EDT [facility] Work Phone: End: 09-12-2025 XR Lumbar spine 3 Views XR LUMBAR GENERAL 3V AP/LAT/L5-S1 Radiology Routine Lumbar back pain 1 Occurrences starting 08/13/2024 until 09/12/2025 [facility] Work Phone: Comment on above: 1 Occurrences starting 08/13/2024 until 09/12/2025 XR Lumbar spine 3 Views XR LUMBA R GENERAL 3V AP/LAT/L5-S1 Radiology Routine Lumbar back pain 08/13/2024 10:53 AM EST [facility] XR Pelvis and Hip - right AP and Lateral frog XR HIP GENERAL 3V PELV/AP/LAT RIGHT Radiology Routine Pain in right hip 11/30/2023 2:31 PM EDT [facility] Work Phone: [facility] Work Phone: [facility] Work Phone: [facility] Work Phone: [facility] Work Phone: [facility] Work Phone: [facility] Work Phone: [facility] Work Phone: [facility] Work Phone: [facility] Work Phone: [facility] Work Phone: [facility] Work Phone: [facility] Work Phone[facility] Work Phone[facility] Work Phone: [facility] Work Phone[facility] Work Phone[facility] Work Phone: [facility] Work Phone: [facility] Work Phone: [facility] Work Phone: [facility] Work Phone: [facility] Work Phone: [facility] Work Phone[facility] Work Phone[facility] Work Phone: [facility] Work Phone: [facility] Work Phone: [facility] Work Phone: [facility] Work Phone[facility] Work Phone: [facility] Work Phone: [facility] Work Phone[facility] Work Phone[facility] Work Phone[facility] Work Phone[facility] Work Phone: [facility] Work Phone: [facility] Work Phone: [facility] Work Phone: [facility] Work Phone: [facility] Work Phone: [facility] Work Phone[facility] Work Phone: [facility] Work Phone: [facility] Work Phone: [facility] Work Phone: [facility] Work Phone[facility] Work Phone[facility] Work Phone[facility] Work Phone: [facility] Work Phone: [facility] Work Phone[facility] Work Phone: [facility] Work Phone: [facility] Work Phone: [facility] Work Phone: [facility] Work Phone[facility] Work Phone[facility] Work Phone[facility] Work Phone[facility] Work Phone[facility] Work Phone: [facility] [place] [facility] Immunizations Immunization Date Immunization Notes Care Provider Fa [facility] 02-12-2025 COVID-19 vaccine, ag e 12+ yr ([employer] [facility]) Al Nurse Work Phone: [facility] 05-08-2024 influenza, injectabl e, quadrivalent, preservative free Trisha Corona HOUSE SUPERINTENDENT-C Work Phone: [facility] 05-08-2024 influenza virus vaccine, unspecified formulation Angie Haagen BIOINFORMATICS SOFTWARE ENGINEER.WEIGHT ANALYST Work Phone: [facility] 05-15-2023 influenza virus vaccine, unspecified formulation Angie Haagen BIOINFORMATICS SOFTWARE ENGINEER.WEIGHT ANALYST Work Phone: [facility] 04-22-2022 influenza virus vaccine, unspecified formulation George Tucker PT, DPT Work Phone: [facility] 05-06-2021 influenza, injectabl e, quadrivalent, contains preservative Quita Barth BIOINFORMATICS SOFTWARE ENGINEER.WEIGHT ANALYST Work Phone: [facility] 05-06-2021 influenza, injectabl e, quadrivalent, preservative free HOUSE SUPERINTENDENT-C Angie Aguirre HOUSE SUPERINTENDENT Work Phone: [facility] 05-06-2021 influenza, seasonal, injectable Quita Barth BIOINFORMATICS SOFTWARE ENGINEER.WEIGHT ANALYST Work Phone: [facility] 05-08-[address] Carmina Grissom Work Phone: [facility] 05-08-2020 influenza, high-dose , quadrivalent vaccine (FLUZONE HIGH DOSE QUADRIVALENT) Quita Barth BIOINFORMATICS SOFTWARE ENGINEER.WEIGHT ANALYST Work Phone: [facility] 05-08-2020 influenza, injectabl e, quadrivalent, preservative free Quita Barth BIOINFORMATICS SOFTWARE ENGINEER.WEIGHT ANALYST Work Phone: [facility] 09-24-2019 varicella virus vaccine Quita Barth BIOINFORMATICS SOFTWARE ENGINEER.WEIGHT ANALYST Work Phone: [facility] 09-24-2019 zoster vaccine recombinant Quita Barth BIOINFORMATICS SOFTWARE ENGINEER.WEIGHT ANALYST Work Phone: [facility] 07-12-2019 varicella virus vaccine Quita Barth BIOINFORMATICS SOFTWARE ENGINEER.WEIGHT ANALYST Work Phone: [facility] 07-12-2019 zoster vaccine recombinant Quita Barth BIOINFORMATICS SOFTWARE ENGINEER.WEIGHT ANALYST Work Phone: [facility] 05-29-2019 influenza, high dose seasonal, preservative-free Quita Barth BIOINFORMATICS SOFTWARE ENGINEER.WEIGHT ANALYST Work Phone: [facility] 01-09-2019 pneumococcal polysaccharide vaccine, 23 valent Quita Barth BIOINFORMATICS SOFTWARE ENGINEER.WEIGHT ANALYST Work Phone: [facility] 01-09-2019 pneumococcal vaccine , unspecified formulation Quita Barth BIOINFORMATICS SOFTWARE ENGINEER.WEIGHT ANALYST Work Phone: [facility] 07-06-2018 pneumococcal conjuga te vaccine, 13 valent Quita Barth BIOINFORMATICS SOFTWARE ENGINEER.WEIGHT ANALYST Work Phone: [facility] 07-06-2018 pneumococcal vaccine , unspecified formulation Quita Barth BIOINFORMATICS SOFTWARE ENGINEER.WEIGHT ANALYST Work Phone: [facility] 05-05-2018 influenza (aIIV4) vaccine, age 65+ yr, quadrivalent, PF (FLUAD QUADRIVALENT) Quita Barth BIOINFORMATICS SOFTWARE ENGINEER.WEIGHT ANALYST Work Phone: [facility] 05-05-[address] Carmina Grissom Work Phone: [facility] 05-05-2018 influenza, injectabl e, quadrivalent, preservative free Quita Barth BIOINFORMATICS SOFTWARE ENGINEER.WEIGHT ANALYST Work Phone: [facility] 05-05-2018 influenza, seasonal, injectable, preservative free Quita Barth BIOINFORMATICS SOFTWARE ENGINEER.WEIGHT ANALYST Work Phone: [facility] 06-06-2017 AS03 adjuvant Quita Barth BIOINFORMATICS SOFTWARE ENGINEER.WEIGHT ANALYST Work Phone: [facility] 06-06-2017 influenza nasal, unspecified formulation Quita Barth BIOINFORMATICS SOFTWARE ENGINEER.WEIGHT ANALYST Work Phone: [facility] 06-06-2017 Seasonal trivalent influenza vaccine, adjuvanted, preservative free Jamila Husain [facility] Work Phone: 06-01-2017 influenza virus vaccine, whole virus Mallorie Swann MD Work Phone: [facility] 06-01-2017 influenza virus vaccine, unspecified formulation Mallorie Swann MD Work Phone: [facility] 09-16-2009 novel [id number], preservative-free, injectable Quita Barth BIOINFORMATICS SOFTWARE ENGINEER.WEIGHT ANALYST Work Phone: [facility] 06-30-2009 varicella zoster imm une globulin [facility] Internal Medicine Work Phone: Comment on above: bring to doctors off ice immediately after picking up for injection 06-13-2009 influenza virus vaccine, whole virus Quita Barth BIOINFORMATICS SOFTWARE ENGINEER.WEIGHT ANALYST Work Phone: [facility] 03-31-2009 tetanus toxoid, redu dasha diphtheria toxoid, and acellular pertussis vaccine, adsorbed Rakel [facility] Work Phone: Comment on above: Lot #[id number] 09/2010Site-left deltoidDose0.5mlgiven by Johnnie Juarez LPN 06-17-2008 influenza, seasonal, injectable Rakel [facility] Internal Medicine Work Phone: Comment on above: Lot #[id number] /09Site-right deltoidDose0.5mlgiven by Johnnie Juarez LPN 06-12-2007 influenza, seasonal, injectable Rakel [facility] Work Phone: 06-15-2006 influenza, seasonal, injectable Rakel [facility] Work Phone: varicella zoster imm une globulin Rakel [facility] Work Phone: Payers Date Payer Category Payer Self-pay [id number] 2019 Private Health Insurance MMO MED ICARE SUPPLEMENT Member Subscriber Plan / Payer (Effective 2019-Present) Name: Chiara Croft Relation to Subscriber: Self Name: EnriquetaChiara ramirez Payer ID: Not on file Type: Indemnity Address: [place] [id number] 2019 Unknown 2019 Unknown [id number]. [id number] 2019 Unknown [id number] 2009 Medicare [id number]. [id number] 2009 Medicare [id number]. [id number]. [id number] 2009 Medicare [id number] 1945 Unknown [id number] 2.16.840.1.741760.3.579.2. 594 1944 Unknown [id number] 2.16.840.1.444959.3.579.2. 594 1944 Unknown [id number] 2.16.840.1.840338.3.579.2. 594 1944 Unknown [id number] 2..840.1.812969.3.579.2. 594 1944 Unknown [id number] 2..840.1.446027.3.579.2. 594 1944 Unknown [id number] 2..840.1.230934.3.579.2. 594 1944 Unknown [id number] 2.840.1.639680.3.579.2. 594 1944 Unknown [id number] 2.840.1.692723.3.579.2. 594 1944 Unknown [id number] 2.840.1.065610.3.579.2. 594 1944 Unknown [id number] 2.840.1.055126.3.579.2. 594 1944 Unknown [id number] 2.840.1.097264.3.579.2. 594 Unknown [id number] Unknown [place] [id number] Unknown [id number] 2.840.1.395681.3.579.2. 462 Unknown [id number] 2.840.1.988403.3.579.2. 462 Unknown [id number] 2.840.1.450529.3.579.2. 462 Unknown [id number] 2.840.1.493414.3.579.2. 462 Unknown [id number] 2.16840.1.287796.3.579.2. 462 Unknown [id number] 2.840.1.570845.3.579.2. 462 Unknown [id number] 2.16840.1.400854.3.579.2. 462 Unknown [id number] 2.16.840.1.673936.3.579.2. 462 Unknown [id number] 2.16.840.1.736099.3.579.2. 462 Unknown [id number] 2.16.840.1.246525.3.579.2. 462 Social History Date Type Detail Facility Start: 03-07-2013 End: 11-01-2023 Alcohol Use Alcohol Use [facility] Work Phone: Comment on above: Weekly Stopped over 35 year s ago. Tobacco use: Tobacco use: [facility] Work Phone: Comment on above: 09/13/11-jjp Start: 03-07-2013 End: 07-17-2024 Tobacco smoking status NHIS Ex-smoker [facility] Work Phone: End: 08-22-1969 History of tobacco use Cigarette Smoker [facility] Work Phone: Start: 10-23-2021 End: 01-16-2025 Alcohol intake Current drinker of alcohol (finding) [facility] Start: 1945 Sex Assigned At Female [facility] Start: 09-26-2021 End: 07-26-2022 Exposure to SARS-CoV-2 (event) Not sure [facility] End: 08-22-1969 History of tobacco use Current smoker [facility] Start: 03-07-2013 End: 07-17-2024 Tobacco use and exposure Never used [facility] Start: 1945 Sex Assigned At Not on file [facility] Start: 02-05-2022 End: 08-19-2022 History SDOH Alcohol Frequency 3 [facility] Start: 02-05-2022 End: 08-19-2022 History SDOH Alcohol Std Drinks 1 [facility] Start: 02-05-2022 End: 08-19-2022 History SDOH Social Connections Phone 5 [facility] Start: 02-05-2022 History SDOH Physica l Activity MPS 6 [facility] Start: 02-05-2022 End: 08-19-2022 History SDOH Stress 2 [facility] Start: 04-06-2022 Tobacco Comment quit in 1970 [facility] Start: 06-11-2022 End: 06-16-2023 Tobacco smoking status NHIS Unknown if ever smoked [facility] Start: 08-19-2022 History SDOH Social Connections Phone 4 [facility] Start: 08-19-2022 End: 11-01-2023 Social connection and isolation panel [facility] Do you belong to any clubs or organizations such as jain groups, unions, fraternal or athletic groups, or school groups? Yes [facility] Are you now , , , , never or living with a partner? [facility] How often to you hav e a drink containing alcohol? 2-4 times a month [facility] How many standard drinks containing alcohol do you have on a typical day? 1 or 2 [facility] How often do you hav e 6 or more drinks on 1 occasion? Never [facility] Start: 07-23-2012 How hard is it for y ou to pay for the very basics like food, housing, medical care, and heating Not hard at all [facility] Do you feel stress - tense, restless, nervous, or anxious, or unable to sleep at night because your mind is troubled all the time - these days [OSQ] Not at all [facility] (I/We) worried luana er (my/our) food would run out before (I/we) got money to buy more. Never true [facility] In the past 12 month s, was there a time when you were not able to pay the mortgage or rent on time? No [facility] Start: 03-26-2019 Gender identity Identifies as female gender (finding) [facility] Start: 03-26-2019 Sexual orientation Heterosexual (fin dominick) [facility] Do you feel stress - tense, restless, nervous, or anxious, or unable to sleep at night because your mind is troubled all the time - these days [OSQ] To some extent [facility] Medical Equipment Procedure Code Equipment Code Equipment Origin al Text Equipment Identifier Dates Screw 1-Innie Polyax Ti 7.0x50 - [id number] Start: 07-26-2017 Screw 1-Innie Polyax Ti 7.5x50 - [id number] Start: 07-26-2017 Screw 1-Innie Polyax Ti 7.5x55 - [id number] Start: 07-26-2017 Les Pre-Lord Ti W/Line 5.5x65 - [id number] Start: 07-26-2017 Screw Set 1-Inni e - [id number] Start: 07-26-2017 Cage Ibf Bullt 5 d Purvi [id number] - [id number] Start: 07-26-2017 Cage Ibf Bullt 5 d Purvi [id number] - [id number] Start: 07-26-2017 Breast Stereo Co re Bx Clip [id number] Start: 02-07-2025 Comment on above: Description: Mini Co rk Clip Goals Date Patient Goal Desired Activity /State Functional Status Date Assessment Result Facility 06-18-2023 Functional status [facility] Work Phone: 09-20-2014 Are you deaf, or do you have serious difficulty hearing No 09/20/2014 8:37 AM Valentine Ortez [facility] 09-20-2014 Are you blind, or do you have serious difficulty seeing, even when wearing glasses No 09/20/2014 8:37 AM Valentine Ortez [facility] 09-20-2014 Do you have serious difficulty walking or climbing stairs No 09/20/2014 8:37 AM Valentine Ortez Ma [facility] 09-20-2014 Do you have difficul ty dressing or bathing No 09/20/2014 8:37 AM Valentine Ortez Ma [facility] 09-20-2014 Because of a physica l, mental, or emotional condition, do you have difficulty doing errands alone such as visiting a physician's office or shopping No 09/20/2014 8:37 AM Valentine Ortez Ma [facility] Mental Status Date Assessment Result Facility 06-18-2023 Cognitive function Voice/Name [facility] Work Phone: 06-16-2023 Cognitive function Level Of Cons ciousness Awake;Alert;Appropriate;Fol lows Commands [facility] Work Phone: 09-20-2014 Because of a physica l, mental, or emotional condition, do you have serious difficulty concentrating, remembering, or making decisions No 09/20/2014 8:37 AM BONY Gaspar Ma Valentine No [facility] Clinical Notes 09-15-2016 to 04-18-2025 Karmen Amador, PT - 04/18/2025 11:40 AM Karmen Mckeon, PT - 04/02/2025 10:41 AM EDTTelephone Encounter - Zheng Tse LPN - 03/29/2025 11:46 AM EDVALENTINE ETIENNE - 03/13/2025 12:24 PM EDT Note Date & Type Note Facility 04-18-2025 Note [facility] 04-18-2025 History of Present illness Narrative Images from the original note were not included. Episode Visit Count: 28 Therapist That Will Accept/Oversee The Plan Of Care: Karmen Amador Start of Care Date: 12/06/23 Onset Date: 11/21/23 Plan of Care Certification Date: 04/18/25 Next Certification Due Date: 07/19/25 REHABILITATION AND SPORTS THERAPY PHYSICAL THERAPY PROGRESS REPORT PLAN OF CARE UPDATE: Assessment: Chiara Croft demonstrates minimal improvement in rising from a chair, standing, and walking. The patient has progressed toward goals. Patient continues to present with impairments in ADL's, overall function, range of motion, strength, symptom management, and tissue tenderness that interfere with sitting, standing, walking, heavy exertion, lifting . Current prognosis is Fair due to: clinical presentation, multiple co- morbidities, advanced age, chronic nature of impairments, limited tolerance to activity . The patient will benefit from continued skilled therapy services to meet the updated goals for this plan of care as noted below. Goals updated on 04/18/2025. Goals for Episode of Care: created on 06/25/24 Independent in home exercises. Met Patient will decrease pain rating by 2 points to meet minimal clinical important difference for numeric pain rating scale. Partially met Restore pain-free lumbar ROM to WNL to allow for pain free functional ADLs Stand / Walk community distances without pain/symptoms. Progressing Sleep through night without pain/symptoms. Progressing Sit 45 minutes minutes without pain/symptoms to allow for comfortable sitting arrangements and improved overall QoL. Progressing Maintain proper sitting posture throughout session. Met Patient will increase strength of hip flexion, aBd, knee extension to 4+/5 to allow for improve ability to complete ADLs. Progressing Patient Goals: Reduce pain and be able to complete functional ADLs w/o pain Time Frame for Goals and Treatment : 07/19/25 Planned Interventions, Frequency, and Duration: 1x/month, 16 weeks Total Number of Visits Planned: 4 Patient to be seen for Therapeutic exercise (95961), Neuromuscular re-education (74701), Manual therapy (02799), Therapeutic activities (70358), Self-shelter management (07277), Patient/Family/Caregiver Education, Body Mechanics Training PLAN FOR NEXT VISIT: continue manual for symptoms modulation to improve functional activity tolerance SUBJECTIVE: Patient notes a new pain raidating from her lower buttocks, across her hip and thigh and into the anterior knee. It's effecting her walking with a noticeable limp. She is now feeling it at rest as well. She was in [place] and increased her walking and stairs visiting her granddaughter. Functional Limitations: sitting, standing, walking, heavy exertion, lifting Spine History Pain is Worse Always: Standing, Walking Pain is Better Always: Rest Pain is Better Sometimes: Sitting Pain: Pain Pain Level: 5 Pain Location: Buttocks - Right, Thigh - Right Description: Aching, Sore, Radiating Frequency: Continuous PROMIS Scales 03/26/2025 02/18/2025 01/23/2025 Higher is Better Phys Func - T Score 33 (moderate dysfunction) 35 (moderate dysfunction) 35 (moderate dysfunction) Phys Func - Percentile 4 7 7 Self-Eff Symptom - T Score 43 (Average) 44 (Average) 43 (Average) Self-Eff Symptom - Percentile 24 27 24 02/26/2025 11/18/2024 09/24/2024 Lower is Better Pain Interference - T Score 67 (moderate) 59 (mild) 63 (moderate) Pain Interference - Percentile 4 18 10 T-Score and Percentile Interpretation T-scores: mean of general population = 50. 5 points is clinically meaningfully difference Percentiles provide an indication of how the patient's score ranks in relation to the general population. Higher percentile rankings indicate better function/quality of life. 50th percentile is the average of the general population and indicates half of respondents had a worse score. OBJECTIVE MEASURES WITH LEVEL OF FUNCTION: Spine Observations R Lumbar Spine Palpation Tenderness: Gluteals, Paraspinals Lumbar Spine AROM Lumbar Flexion: Normal Lumbar Extension: Major limitation Lumbar R Side-Bend: Minimal limitation Lumbar L Side-Bend: Minimal limitation Lumbar R Rotation: Minimal limitation Lumbar L Rotation: Minimal limitation LE Strength Trunk Strength: 4-/5 R LE Strength: 4/5 L LE Strength: 4/5 Special Tests - Hip and Spine SLR Test: Right Positive TREATMENT: Manual Therapy: 2: STM to R QL and glute med with push to tolerance Dry Needling: (2) 60 and 75 mm needles to R L3-5 paraspinals in clock technique with placement of needles plus TENS; Also (2) 75 mm needles to L gluteals max/med with placement of needle plus TENS Skilled Intervention: Manual skills to improve joint mobility, ROM, and decrease pain. Utilized anatomy knowledge of the clinician, and assessment of patient's response to intervention. Modalities: E-Stim Attended/TENS Body Region Treated - E-Stim Attended/TENS: Lumbar paraspinals L5-S1 and Glute med Patient Position: L side lying Current: 10 Hz Channels: 1-2 L2-L5, 3 Glute med Intensity: Ch 1-2: 5.0 V; Ch 3: 2.0 V Minutes: 15 Skilled Intervention: Proper administration and selection of modality based on clinical presentation, deficits, and needs. Patient response monitored throughout treatment. Billing Manual TherapyTreatment Minutes: 29 E- Stim Attended/TENS Treatment Minutes: 15 Skilled Treatment Time Minutes (timed and untimed codes): 44 Total Session Time (minutes): 44 Session Start Time : 916 Session Stop Time : 100 Karmen Amador PT documented in this encounter [facility] 04-02-2025 Note [facility] 04-02-2025 History of Present illness Narrative Episode Visit Count: 27 Therapist That Will Accept/Oversee The Plan Of Care: Karmen Amador Start of Care Date: 12/06/23 Onset Date: 11/21/23 Plan of Care Certification Date: 01/09/25 Next Certification Due Date: 04/11/25 REHABILITATION AND SPORTS THERAPY PHYSICAL THERAPY TREATMENT NOTE ASSESSMENT: Chiara Croft tolerated the session with no issues. She demonstrated difficulty with LBP and R sided radicular symptoms. The patient will continue to benefit from ongoing skilled physical therapy to progress toward set goals. PLAN FOR NEXT VISIT: GA SUBJECTIVE: Patient had difficulty and increased pain following last session. She did not get the same relief she usually gets. She has had good streaks and bad since last being seen. Pain: Pain Pain Level: 8 Pain Location: Buttocks - Right Description: Aching, Sore, Sharp Frequency: Continuous OBJECTIVE MEASURES WITH LEVEL OF FUNCTION: Tenderness to below noted areas needled TREATMENT: Manual Therapy: 2: STM and TrPr to R QL and glute med with push to tolerance Skilled Intervention: Manual skills to improve joint mobility, ROM, and decrease pain. Utilized anatomy knowledge of the clinician, and assessment of patient's response to intervention. Modalities: E-Stim Attended/TENS Body Region Treated - E-Stim Attended/TENS: Lumbar paraspinals L5-S1 and Glute med Patient Position: L side lying Current: 10 Hz Channels: 1-2 L5-S1, 3 Glute med Intensity: Ch 1-2: 5.5 V; Ch 3: 2.0 V Minutes: 20 Skilled Intervention: Proper administration and selection of modality based on clinical presentation, deficits, and needs. Patient response monitored throughout treatment. Billing Manual TherapyTreatment Minutes: 13 E- Stim Attended/TENS Treatment Minutes: 20 Skilled Treatment Time Minutes (timed and untimed codes): 33 Total Session Time (minutes): 33 Session Start Time : 1615 Session Stop Time : 1648 Karmen Amador PT documented in this encounter [facility] 03-29-2025 Telephone encounter Note Lipid panel is in process. Zheng Tse LPN [facility] 03-29-2025 Miscellaneous Notes Lipid panel is in process. Zheng Tse LPN Can we please call and see if lab can run the lipid panel on the blood that was already collected on 03/26/25. The order is in. Angie Aguirre APRN.SAURABH documented in this encounter [facility] 03-27-2025 Telephone encounter Note Can we please call and see if lab can run the lipid panel on the blood that was already collected on 03/26/25. The order is in. Angie Aguirre APRN.CNP [facility] 03-13-2025 Note [facility] 03-13-2025 History of Present illness Narrative Patient presents for Prolia injection. Denies any problems at this time. Patient instructed on any SE of medication, verbalized understanding and agreed to proceed with treatment. Tolerated injection well. Valentine Munoz LPN documented in this encounter [facility] 02-27-2025 History of Present illness Narrative Images from the original note were not included. Subjective Chiara Croft presents to [facility] Department for a follow up appointment. Since the last visit, Chiara Croft states the pain has been there. Current pain intensity is 6 on a scale of 0-10. Pain located in Back area and legs. Pain described as aching Symptoms interfere with general activities. Pain is exacerbated by activity. Pain is mitigated by unable to pinpoint positions/factors that are mitigating. Started up in last month The medications are effective. The patient states the last dose of . [place] was taken this morning. PAIN EVALUATION 02/26/2025 1033 02/27/2025 0959 Pain Level: 5 6 Pain Location: Back-Lower Back Description: Aching;Cramping;Sharp;Sore;Stabbin g;Stiffness;Tightness -- Duration Units: Years -- Frequency: Continuous -- Intervention/Comfort measure: Medication;Distractions;Other: See comment -- Comments: TENS, dry needling -- Patient Entered Questionnaires PROMIS Score Percentiles 06/24/2024 09/24/2024 12/17/2024 PROMIS Global Health Scale Physical Health Percentile 31 15 22* Mental Health Percentile 73 34 63 Patient-reported 01/23/2025 02/18/2025 02/26/2025 Physical Health Physical Function Percentile 7 7 Pain Interference Percentile 4 Percentiles provide an indication of how the patient's score ranks in relation to the general population. Higher percentile rankings indicate better function/quality of life. 50th percentile is the average of the general population and indicates half of respondents had a worse score. > 31st percentile is within normal limits or better * < 31st percentile is at least SD worse than population, which may be clinically relevant < 16th percentile is at least 1 SD worse than population and warrants attention Review of Systems Constitutional: (-) Weight Gain (-) Weight Loss (+) Fatigue Cardiovascular: (-) hx heart surgery (-) Pacemaker Respiratory: (-) Shortness of Breath (-) Cough (-) Snoring Gastrointestinal: (-) Incontinence (-) Diarrhea (-) Constipation (-) Nausea/Vomiting Endocrine: (-) Thyroid Disorder (-) Diabetes Hematologic: (-) Prolonged Bleeding (+) Easy Bruising Genitourinary: (-) Incontinence (-) Frequency (-) Urinary Urgency Skin: (-) Open sores/wound Neurologic: (-) Headache (-) Double Vision Psychiatric: (+) Depression (-) Anxiety (-) Personal History of Alcohol or Substance Abuse (-) Family History of Alcohol or Substance Abuse Chief Complaint Patient presents with: Refill Request Back Pain Physical Examination Pulse 78 Wt 147 lb 11.3 oz (67.0kg) SpO2 98% General:well appearing and alert Skin: Skin color, texture, turgor normal, no rashes or lesions HEENT: normal Cardiovascular: Regular, rate and rhythm Lungs: Normal respiratory rate and rhythm, unlabored on room air Musculoskeletal: Back: Tenderness on palpation over the lumbar spine. , Tenderness over the bilateral lumbar paraspinal muscles Extremities: Normal exam of the extremities Neurological: Mental Status: alert Gait: Antalgic. Trigger points: lumbosacral spine muscles. Assessment Assessment : Chiara Croft is an 79-year-old female presenting for medication refills and evaluation of new anterior leg pain. Chiara reports a longstanding history of low back pain, which she manages with dry needling every three weeks and a TENS unit. She notes that the dry needling, performed by Karmen Amador, usually provides relief but was particularly painful during the last session. She is unsure how much longer Medicare will cover the dry needling. She also takes pain medication as needed, which she has been using more frequently, and recently refilled her Robaxin prescription. Over the past few weeks, she has experienced a new aching pressure in her legs, extending to her knees. This sensation is intermittent and not described as shooting or nerve pain. She attributes this to an area above her fusion, as suggested by Karmen Amador. The discomfort is more prominent today and is located in the top of her legs. She does not engage in regular exercises or stretches, noting that physical activity often exacerbates her symptoms. She attempts to maintain her housework and was previously participating in a gentle online exercise program but has since stopped due to increased pain. Encounter Diagnosis ICD-10-CM 1. Radiculopathy, lumbar region M54.16 HYDROcodone-acetaminophen (NORCO) 5-325 mg per tablet HYDROcodone-acetaminophen (NORCO) 5-325 mg per tablet 2. Lumbar facet arthropathy M47.816 HYDROcodone-acetaminophen (NORCO) 5-325 mg per tablet HYDROcodone-acetaminophen (NORCO) 5-325 mg per tablet 3. Lumbar spondylosis M47.816 HYDROcodone-acetaminophen (NORCO) 5-325 mg per tablet HYDROcodone-acetaminophen (NORCO) 5-325 mg per tablet 02/26/2025 PROMIS CAT Pain Interference PROMIS Pain Interference T-Score (range: 10 - 90) 67 (moderate) PROMIS Pain Interference Percentile 4 Descriptive Summary for PROMIS Physical Function T-score = 35 (Percentile 7) Much difficulty - Carry a laundry basket up a flight of stairs. Some difficulty - Walk at a normal speed. Unable - Walk more than a mile (1.6 km). OARRS Report: Reviewed: The patient's OARRS report was reviewed and is consistent with the reported medication use. Urine Panel: Lab Results Component Value Date Cannabinoid Quant, Urine <16 01/02/2024 Benzoylecgonine Quant, Urine <25 11/26/2024 Benzoylecgonine Quant, Urine <24 01/02/2024 6-Acetylmorphine Quant, Urine <01/02/2024 6-Monoacetylmorphine Quant, Urine <11/26/2024 Amphetamine Quant, Urine <25 11/26/2024 Amphetamine Quant, Urine <01/02/2024 Methamphetamine Quant, Urine <11/26/2024 Methamphetamine Quant, Urine <8 01/02/2024 Buprenorphine Quant, Urine <11/26/2024 Buprenorphine Quant, Urine <01/02/2024 Norbuprenorphine Quant, Urine <01/02/2024 Methadone Quant, Urine <11/26/2024 Methadone Quant, Urine <16 01/02/2024 EDDP Quant, Urine <11/26/2024 EDDP Quant, Urine <01/02/2024 Tramadol Quant, Urine <01/02/2024 Desmethyltramadol Quant, Urine <01/02/2024 O-Desmethyltramadol Quant, Urine <11/26/2024 Fentanyl Quant, Urine <11/26/2024 Fentanyl Quant, Urine <01/02/2024 Norfentanyl Quant, Urine <11/26/2024 Norfentanyl Quant, Urine <01/02/2024 Codeine Quant, Urine <11/26/2024 Codeine Quant, Urine <11 01/02/2024 Morphine Quant, Urine <11/26/2024 Morphine Quant, Urine <01/02/2024 Dihydrocodeine Quant, Urine <01/02/2024 Hydrocodone Quant, Urine 73 (H) 11/26/2024 Hydrocodone Quant, Urine <8 01/02/2024 Oxycodone Quant, Urine <25 11/26/2024 Oxycodone Quant, Urine <10 01/02/2024 Hydromorphone Quant, Urine 62 (H) 11/26/2024 Hydromorphone Quant, Urine <01/02/2024 Oxymorphone Quant, Urine <25 11/26/2024 Oxymorphone Quant, Urine <01/02/2024 The pain panel was Reviewed - No inconsistencies noted. Plan Injection history was reviewed. Medication use and compliance were reviewed. 1. [facility] through [facility] 2. The following approved medication requests have been transmitted electronically. Requested Prescriptions Signed Prescriptions Disp Refills HYDROcodone-acetaminophen (NORCO) 5-325 mg per tablet 30 tablet 0 Sig: Take 1 tablet by mouth once daily as needed for pain for up to 30 days. Patient should start on March 01, 2025. HYDROcodone-acetaminophen (NORCO) 5-325 mg per tablet 30 tablet 0 Sig: Take 1 tablet by mouth once daily as needed for pain for up to 30 days. Patient should start on March 31, 2025. 3. Interventional procedure options discussed. none 4. Continues with dry needling through PT 5) F/U in 2 months. May be virtual The level of medical decision making for this encounter was low level. I spent a total of 25 minutes on the date of the service which included preparing to see the patient, [id number] patient care, completing clinical documentation, performing a medically appropriate examination, and ordering medications, tests, or procedures. 1. This document has been created with the use of voice recognition technology. It may contain inaccuracies: (e.g. misspellings, inaccurate syntax or word sense) that have escaped review. 2. The physician, nursing staff and medical assistants are a major part of YOUR TREATMENT TEAM and will be handling your phone calls and inquiries, if any. Unless explicitly told otherwise at the time of your office visit, your study results and ensuing treatment plans will be discussed during your follow-up appointment. If you do not have a follow-up appointment and wish to discuss any issues, please set up an appointment. 3. It is my practice to not fill disability or any other insurance-related forms/documentation. All of the office notes, study results, and other pertinent documentation generated as part of your evaluation will be available to you and to your Primary Care Physician (PCP). Use of this material to complete such forms will be at the discretion of your PCP/referring physician. The above plan and management options were discussed at length with patient. Patient is in agreement with the above and verbalized understanding. Quita Barth APRN, SAURABH February 27, 2025 documented in this encounter [facility] 02-27-2025 Note [facility] 02-21-2025 Note [facility] 02-21-2025 History of Present illness Narrative Images from the original note were not included. Episode Visit Count: 26 Therapist That Will Accept/Oversee The Plan Of Care: Karmen Amador Start of Care Date: 12/06/23 Onset Date: 11/21/23 Plan of Care Certification Date: 01/09/25 Next Certification Due Date: 04/11/25 REHABILITATION AND SPORTS THERAPY PHYSICAL THERAPY PROGRESS REPORT PLAN OF CARE UPDATE: Assessment: Chiara Croft demonstrates difficulty with standing, walking in the community, bending, heavy exertion, lifting, and physical activities. The patient has progressed toward goals. Patient continues to present with impairments in ADL's, overall function, range of motion, strength, symptom management, and tissue tenderness that interfere with sitting, standing, walking, heavy exertion, lifting . Current prognosis is Fair due to: clinical presentation, multiple co- morbidities, advanced age, chronic nature of impairments, limited tolerance to activity . The patient will benefit from continued skilled therapy services to meet the updated goals for this plan of care as noted below. Goals updated on 02/20/2025. Goals for Episode of Care: created on 06/25/24 Independent in home exercises. Met Patient will decrease pain rating by 2 points to meet minimal clinical important difference for numeric pain rating scale. Partially met Restore pain-free lumbar ROM to WNL to allow for pain free functional ADLs Stand / Walk community distances without pain/symptoms. Progressing Sleep through night without pain/symptoms. Progressing Sit 45 minutes minutes without pain/symptoms to allow for comfortable sitting arrangements and improved overall QoL. Progressing Maintain proper sitting posture throughout session. Met Patient will increase strength of hip flexion, aBd, knee extension to 4+/5 to allow for improve ability to complete ADLs. Progressing Patient Goals: Reduce pain and be able to complete functional ADLs w/o pain Time Frame for Goals and Treatment : 04/11/25 Planned Interventions, Frequency, and Duration: 1x/month, 4 weeks Total Number of Visits Planned: 1 Patient to be seen for Therapeutic exercise (46681), Manual therapy (59642), Therapeutic activities (98311), Neuromuscular re-education (43617), Self-shelter management (20715), Patient/Family/Caregiver Education, Body Mechanics Training PLAN FOR NEXT VISIT: Manual plus estim for symptoms modulation and to improve functional activity tolerance/maintain quality of life SUBJECTIVE: Patient notes that she is about the same. She has good days, bad days. She continues to get ~ 3 weeks of relief with needling and TENS, as this seems to be the only thing that provides even temporary relief. New symptom is that she has been feling a strong ache in her ant thighs intermittently. Functional Limitations: sitting, standing, walking, heavy exertion, lifting Spine History Pain is Worse Always: Standing, Walking Pain is Better Always: Rest Pain is Better Sometimes: Sitting Pain: Pain Pain Level: 7 Pain Location: Buttocks - Right Description: Aching, Sore, Sharp Frequency: Continuous PROMIS Scales 02/18/2025 01/23/2025 12/17/2024 Higher is Better Phys Func - T Score 35 (moderate dysfunction) 35 (moderate dysfunction) 33 (moderate dysfunction) Phys Func - Percentile 7 7 4 Self-Eff Symptom - T Score 44 (Average) 43 (Average) 39 (Low) Self-Eff Symptom - Percentile 27 24 14 11/18/2024 09/24/2024 08/21/2024 Lower is Better Pain Interference - T Score 59 (mild) 63 (moderate) 66 (moderate) Pain Interference - Percentile 18 10 5 T-scores: mean of general population = 50. 5 points is clinically meaningfully difference Percentiles provide an indication of how the patient's score ranks in relation to the general population. Higher percentile rankings indicate better function/quality of life. 50th percentile is the average of the general population and indicates half of respondents had a worse score. OBJECTIVE MEASURES WITH LEVEL OF FUNCTION: Spine Observations R Lumbar Spine Palpation Tenderness: Gluteals, Paraspinals Lumbar Spine AROM Lumbar Flexion: Normal Lumbar Extension: Major limitation Lumbar R Side-Bend: Minimal limitation Lumbar L Side-Bend: Minimal limitation Lumbar R Rotation: Minimal limitation Lumbar L Rotation: Minimal limitation LE Strength Trunk Strength: 3+/5 R LE Strength: 4/5 L LE Strength: 4/5 Special Tests - Hip and Spine SLR Test: Right Positive TREATMENT: Manual Therapy: 1: Objective measures obtained 2: STM and TrPr to R QL and glute med with push to tolerance Dry Needling: (2) 60 and 75 mm needles to R L3-5 paraspinals in clock technique with placement of needles plus TENS; Also (2) 75 mm needles to L gluteals max/med with placement of needle plus TENS Skilled Intervention: Manual skills to improve joint mobility, ROM, and decrease pain. Utilized anatomy knowledge of the clinician, and assessment of patient's response to intervention. Self-Long Term Management: 1: [facility] for [facility] given her success with needling plus TENS in therapy. Educated her to discuss with her pain management Dr. Skilled Intervention: Skilled judgment in the selection of proper modification for activity of daily living/home management based on clinical presentation, deficits, and needs. Reviewed patient specific diagnosis in relation to activities of daily living/home management. Activity progression based on professional judgement. Modalities: Patient Position: L side lying Current: 10 Hz Channels: 1-2, 3 Intensity: Ch 1-2: 5.0 V; Ch 3: 4.0 V Minutes: 10 Skilled Intervention: Proper administration and selection of modality based on clinical presentation, deficits, and needs. Patient response monitored throughout treatment. Billing Manual TherapyTreatment Minutes: 19 Self-Care/Home Management Treatment Minutes: 12 E- Stim Attended/TENS Treatment Minutes: 10 Skilled Treatment Time Minutes (timed and untimed codes): 41 Total Session Time (minutes): 41 Session Start Time : 946 Session Stop Time : 1028 Karmen Amador PT documented in this encounter [facility] 02-19-2025 Telephone encounter Note Patient scheduled for nurse visit 03/13/25 to receive Prolia injection. Please place order at this time. Valentine Munoz LPN [facility] 02-19-2025 Miscellaneous Notes Patient scheduled for nurse visit 03/13/25 to receive Prolia injection. Please place order at this time. Valentine Munoz LPN documented in this encounter [facility] 02-12-2025 Note [facility] 02-12-2025 History of Present illness Narrative Patient presents for COVID vaccine. Denies any problems at this time. Tolerated injection well. Adele Brooks LPN documented in this encounter [facility] 02-07-2025 Instructions Formatting of th is note might be different from the original. Post procedure written instructions were given to patient. [facility] 02-07-2025 Note HNO ID: [id number] Author: ALICE ARAIZA RT(R) Service: Radiology Author Type: It Support Consultant Type: Patient Education Filed: 02/07/2025 13:48 Note Text: Post procedure written instructions were given to patient. [facility] 02-07-2025 Miscellaneous Notes Post procedure written instructions were given to patient. documented in this encounter [facility] 01-30-2025 Note [facility] 01-30-2025 History of Present illness Narrative Episode Visit Count: 25 Therapist That Will Accept/Oversee The Plan Of Care: Karmen Amador Start of Care Date: 12/06/23 Onset Date: 11/21/23 Plan of Care Certification Date: 01/09/25 Next Certification Due Date: 04/11/25 REHABILITATION AND SPORTS THERAPY PHYSICAL THERAPY TREATMENT NOTE ASSESSMENT: Chiara Croft tolerated the session with decreased symptoms. She demonstrated improvements in back and buttocks pain. The patient will continue to benefit from ongoing skilled physical therapy to progress toward set goals. PLAN FOR NEXT VISIT: GA, may discuss Quell device SUBJECTIVE: Patient starting feeling symptoms returning in the last day. Notes pain in the low back and into the buttocks. 3 weeks seems to consitently be when her pain returns after treatment Pain: Pain Pain Level: 5 Pain Location: Buttocks - Right Description: Aching, Sore, Sharp Frequency: Continuous OBJECTIVE MEASURES WITH LEVEL OF FUNCTION: Spine Observations R Lumbar Spine Palpation Tenderness: Gluteals, Paraspinals TREATMENT: Manual Therapy: 2: STM and TrPr to R QL and glute med with push to tolerance Dry Needling: (2) 60 and 75 mm needles to R L3-5 paraspinals in clock technique with placement of needles plus TENS; Also (2) 75 mm needles to L gluteals max/med with placement of needle plus TENS Skilled Intervention: Manual skills to improve joint mobility, ROM, and decrease pain. Utilized anatomy knowledge of the clinician, and assessment of patient's response to intervention. Modalities: Body Region Treated - E-Stim Attended/TENS: Lumbar paraspinals L3-5, and glute med Patient Position: L side lying Current: 10 Hz Channels: 1-2, 3 Intensity: Ch 1-2: 3.0 V; Ch 3: 4.0-5.0 V Minutes: 10 Skilled Intervention: Proper administration and selection of modality based on clinical presentation, deficits, and needs. Patient response monitored throughout treatment. Billing Manual TherapyTreatment Minutes: 18 E- Stim Attended/TENS Treatment Minutes: 10 Skilled Treatment Time Minutes (timed and untimed codes): 28 Total Session Time (minutes): 28 Session Start Time : 952 Session Stop Time : 1021 Karmen Amador PT documented in this encounter [facility] 01-30-2025 Telephone encounter Note Klondike prescription pended for provider review. Routing to provider. [facility] 01-30-2025 Miscellaneous Notes Klondike prescription pended for provider review. Routing to provider. documented in this encounter [facility] 01-30-2025 Telephone encounter Note Prescription Refill Information The patient has been identified by name and date of : Yes Caregiver verified no other encounters exist for this prescription request: Yes Caregiver confirmed with patient/requestor that no other refills are due, in the near future, with this provider at this time: Yes The last office visit in the department: 12/12/24 Does the patient have a future office visit with this provider/department: Yes, 05/31/25 Requested Prescriptions Pending Prescriptions Disp Refills losartan (COZAAR) 50 mg tablet 145 tablet 1 Sig: TAKE 1 & 1/2 (ONE & ONE-HALF) TABLETS BY MOUTH ONCE DAILY Zheng Tse LPN January 30, 2025 8:01 AM [facility] 01-30-2025 Miscellaneous Notes Prescription Refill Information The patient has been identified by name and date of : Yes Caregiver verified no other encounters exist for this prescription request: Yes Caregiver confirmed with patient/requestor that no other refills are due, in the near future, with this provider at this time: Yes The last office visit in the department: 12/12/24 Does the patient have a future office visit with this provider/department: Yes, 05/31/25 Requested Prescriptions Pending Prescriptions Disp Refills losartan (COZAAR) 50 mg tablet 145 tablet 1 Sig: TAKE 1 & 1/2 (ONE & ONE-HALF) TABLETS BY MOUTH ONCE DAILY Zheng Tse LPN January 30, 2025 8:01 AM documented in this encounter [facility] 01-28-2025 Telephone encounter Note Prescription Refill Information The patient has been identified by name and date of : Yes Caregiver verified no other encounters exist for this prescription request: Yes Caregiver confirmed with patient/requestor that no other refills are due, in the near future, with this provider at this time: Yes The last office visit in the department: 11/20/2024 w/Quita Barth CNP Does the patient have a future office visit with this provider/department: Yes - 02/27/2025 w/Quita Barth CNP Requested Prescriptions Pending Prescriptions Disp Refills methocarbamol (ROBAXIN) 500 mg tablet 60 tablet 1 Sig: Take 1 tablet by mouth two times a day as needed. Last ordered: 06/26/2024 by Quita Barth CNP Routing to provider for review. Samina Govea RN January 28, 2025 9:31 AM [facility] 01-28-2025 Miscellaneous Notes Prescription Refill Information The patient has been identified by name and date of : Yes Caregiver verified no other encounters exist for this prescription request: Yes Caregiver confirmed with patient/requestor that no other refills are due, in the near future, with this provider at this time: Yes The last office visit in the department: 11/20/2024 w/Quita Barth CNP Does the patient have a future office visit with this provider/department: Yes - 02/27/2025 w/Quita Barth CNP Requested Prescriptions Pending Prescriptions Disp Refills methocarbamol (ROBAXIN) 500 mg tablet 60 tablet 1 Sig: Take 1 tablet by mouth two times a day as needed. Last ordered: 06/26/2024 by Quita Barth CNP Routing to provider for review. Samina Govea RN January 28, 2025 9:31 AM documented in this encounter [facility] 01-16-2025 Note [facility] 01-16-2025 History of Present illness Narrative HISTORY AND PHYSICAL - BREAST COMPLAINT Chiara Croft 1945 REFERRING PHYSICIAN: Angie Aguirre APRN.CNP CHIEF COMPLAINT: Right breast microcalcifications HPI: The patient is a 79 year old female with a complaint of an abnormal mammogram. Chiara is a female presenting for evaluation of microcalcifications noted on a recent mammogram. Chiara reports that microcalcifications were first identified on a mammogram last year. She denies any skin changes, lumps in the axilla, or other breast problems. She has a family history of breast cysts in her mother and sister, but no history of breast cancer. She notes that her breast tissue is not dense. Chiara is currently on Plavix due to a CVA that occurred 20 years ago and denies any residual symptoms from the CVA. The patient is being seen by me today at the request of Angie Aguirre APRN.CNP for my opinion and advice regarding right upper outer quadrant breast microcalcifications. PAST MEDICAL HISTORY Diagnosis Date Abdominal pain Arthritis Asthma (HCC) Degenerative disc disease Depression Disorder of bone and cartilage, unspecified History of transfusion HTN (hypertension) Hypothyroid Intrinsic asthma (HCC) Mixed hyperlipidemia Hyperlipidemia Osteoarthrosis, unspecified whether generalized or localized, other specified sites Pain medication agreement 04/16/2024 vicodin refilled sparingly from PCP. PMH - PAST MEDICAL HISTORY OF CVA with weakness left side PMH - PAST MEDICAL HISTORY OF 2000 left cervical radiculopathy PMH - PAST MEDICAL HISTORY OF 2003 right rib fracture PMH - PAST MEDICAL HISTORY OF 2005 right shoulder impingement syndrome Spinal stenosis Stroke (HCC) 2005 Unspecified hypothyroidism PAST SURGICAL HISTORY Procedure Laterality Date APPENDECTOMY 1959 APPENDECTOMY HX BACK SURGERY HX 2016 L3-5 Decompression and Fusion CATARACT EXTRACTION HX Bilateral COLONOSCOPY N/A 09/15/2016 MAC EGD W/O [facility] SPEC VARICIES INJ 09/17/2016 EGD W/O [facility] SPEC VARICIES INJ 11/15/2022 EPIDURAL SITE SPECIFY lumbar spine EYE SURGERY HX PAST SURGICAL HISTORY OF 1976 thyroidectomy for toxic goiter SKIN BIOPSY HX TONSILLECTOMY HX TONSILLECTOMY PRIMARY/SECONDARY <AGE 12 Tonsillectomy Current Outpatient Medications Medication Sig Dispense Refill ipratropium-albuterol (DUONEB) 0.5 mg-3 mg(2.5 mg base)/3 mL nebu Inhale 3 mL as instructed every 6 hours as needed. ARNUITY ELLIPTA 200 mcg/actuation inhaler Inhale 1 puff as instructed once daily. pravastatin (PRAVACHOL) 10 mg tablet Take 1 tablet by mouth once daily. 30 tablet 3 HYDROcodone-acetaminophen (NORCO) 5-325 mg per tablet Take 1 tablet by mouth once daily as needed for pain for up to 30 days. Patient should start on December 30, 2024. 30 tablet 0 lansoprazole (PREVACID) 30 mg capsule Take 1 capsule by mouth once daily. 90 capsule 1 losartan (COZAAR) 50 mg tablet TAKE 1 & 1/2 (ONE & ONE-HALF) TABLETS BY MOUTH ONCE DAILY 145 tablet 1 albuterol HFA (VENTOLIN HFA) 90 mcg/actuation inhaler Inhale 2 Puffs as instructed every 4 hours as needed for wheezing/shortness of breath. 1 Each 11 levothyroxine (LEVOXYL) 88 mcg tablet Take 1 tablet by mouth once daily. Take on empty stomach. For Thyroid 90 tablet 3 clopidogrel (PLAVIX) 75 mg tablet Take 1 tablet by mouth once daily. [facility] ID: [id number] [email or web address] 90 tablet 3 guaifenesin/phenylephrine HCl (MUCINEX COLD ORAL) Take by mouth. lidocaine (SALONPAS) 4 % patch Apply as directed once daily. acetaminophen (TYLENOL) 500 mg tablet Take 500 mg by mouth every 8 hours as needed. predniSONE (DELTASONE) 20 mg tablet Take 20 mg by mouth once daily. (Patient not taking: Reported on 01/16/2025) predniSONE (DELTASONE) 10 mg tablet Take 10 mg by mouth once daily. (Patient not taking: Reported on 01/16/2025) amoxicillin-clavulanic acid (AUGMENTIN) 125-31.25 mg/5 mL suspension Take 500 mg by mouth once daily. nystatin (MYCOSTATIN) 100,000 unit/mL suspension Take 5 mL by mouth four times daily. 1tsp swish in mouth for several minutes, then swallow (or expectorate) 4 times daily until gone. (Patient not taking: Reported on 01/16/2025) 200 mL 0 No current facility-administered medications for this visit. ALLERGIES: Cymbalta [Duloxetine], Fosamax [Alendronate Sodium], Septra [Sulfamethoxazole-Trimethoprim], Sulfamethoxazole, Tramadol, Trimethoprim, and Bupropion PERSONAL HISTORY: Social History Tobacco Use Smoking status: Former Current packs/day: 0.50 Average packs/day: 0.5 packs/day for 8.0 years (4.0 ttl pk-yrs) Types: Cigarettes Smokeless tobacco: Never Tobacco comments: quit in 1969 Vaping Use Vaping status: Never Used Substance Use Topics Alcohol use: Yes Comment: 1-2 times per week Drug use: No FAMILY HISTORY: FAMILY HISTORY Problem Relation Age of Onset Cerebral Embolism Mother Osteoporosis Mother other (spinal stenosis) Mother other (depression) Mother other (cva) Mother other (depression) Father other (tramatic brain syndrome) Father s/p MVA other (aplastic thyroid tumor) Sister Depression Brother in a nursng home. Stroke Maternal Grandfather Colon Cancer No Family History REVIEW OF SYMPTOMS: The review of systems data was entered by the nurse and reviewed by me There are no exam notes on file for this visit. PHYSICAL EXAMINATION: General: The patient is 79 year old female, well nourished, well hydrated in no acute distress. The patient is oriented to time, place, and person. VITALS: Blood pressure 128/78, pulse 76, weight 67.6 kg (149 lb), SpO2 98%. Body mass index is 26.39 kg/m . HEENT: Normal cephalic, ataumatic, pupils are equally round, sclera are anicteric, mucous membranes are moist, oropharynx is clear. Neck has no masses, asymmetry or lymphadenopathy. Thyroid is unremarkable. Respiratory: Clear to auscultation and percussion. Normal respiratory excursion and pattern. Cardiac: Examination is regular rate and rhythm. Abdominal exam: Soft, nontender, with no palpable masses. No hepatosplenomegaly. No palpable hernias. Rectal exam: exam deferred Extremities: no clubbing, cyanosis or edema. No adenopathy. Breast: Visual inspection reveals no retractions, nipple inversion, or skin changes. Palpation of the right breast reveals no dominant or suspicious masses, but multiple benign-feeling nodules. Palpation of the left breast reveals no dominant or suspicious masses, but multiple benign-feeling nodules. Axillary exam demonstrates no suspicious masses in either the left or right axilla. There is no nipple discharge expressed from either the left or right breast. LABORATORY VALUES: As Noted RADIOLOGIC STUDIES: As Noted Assessment IMPRESSION: Right breast microcalcifications PLAN: 1. Abnormal finding on mammography, microcalcification (R92.0) Increased number of microcalcifications compared to previous mammogram in May. No associated mass detected. Microcalcifications are small and can be benign in 90% of cases, but there is a 10% chance of malignancy. - Ordered a right stereotactic breast biopsy to be performed by a radiologist. - Discussed biopsy options; recommended [place] location for patient comfort. - Patient to hold Plavix for a few days prior to the procedure. - Breast center will contact patient to schedule the biopsy within a day or two. - Follow-up appointment to be scheduled post-biopsy to ensure proper healing and discuss results. 2. Encounter for long-term (current) use of antiplatelets/antithrombotics (Z79.02) Personal history of transient ischemic attack (TIA), and cerebral infarction without residual deficits (Z86.73) Patient is on Plavix for a history of stroke 20 years ago, with no residual symptoms. - Hold Plavix for a few days prior to the stereotactic biopsy. 3. Sebaceous cyst (L72.3) Small sebaceous cyst noted, not changing in size. Advised to leave the cyst alone unless it changes. Diagnoses: (R92.0) Mammographic microcalcification found on diagnostic imaging of breast (primary encounter diagnosis) My findings have been communicated to Dr. Angie Aguirre APRN.CNP via shared medical record. This note will be forwarded to Dr. Angie Aguirre APRN.CNP. Return to Clinic: The patient is instructed to follow-up with me after the testing has been completed. Meagan White MD documented in this encounter [facility] 01-16-2025 Instructions Meagan White MD - 01/16/2025 10:04 AM EDT We discussed your breast imaging and microcalcifications: - Your recent imaging shows an increase in microcalcifications compared to your prior study from May. While this is often benign, it can occasionally indicate a concern. - I recommend a stereotactic breast biopsy to evaluate the microcalcifications further. This procedure will be performed by a radiologist. - You are currently taking Plavix due to a stroke 20 years ago. You can safely hold your Plavix for a few days prior to the biopsy, as this is not a concern. - The breast center will contact you within the next day or two to schedule the biopsy. There are two location options: [place], where the procedure is done using an upright mammogram machine, or [place], where you lie on your stomach for the procedure. Based on the location of the microcalcifications, the [place] option may be more comfortable for you. We discussed your sebaceous cyst: - I noted a small sebaceous cyst during your exam. Since it is not changing, we will leave it alone. If it begins to change or cause concern, please let me know. Follow-up: - After your biopsy, I would like you to return to the office so I can examine you, ensure proper healing, and discuss the results and next steps. The breast center will typically call you with the biopsy results a few days after the procedure, but we will review them together at your follow-up visit. Please let me know if you have any additional questions or concerns. documented in this encounter [facility] 01-11-2025 Note [facility] 01-01-2025 History of Present illness Narrative Radiology Service Progress Note PATIENT NAME: Chiara Croft DATE OF SERVICE: January 01, 2025 TIME: 9:46 AM PATIENT IDENTITY VERIFICATION COMPLETED USING TWO (2) IDENTIFIERS: Name and Date of confirmed by patient verbally. FALL SCREENING: Has the patient had 2 falls in the last year or 1 fall with injury or currently using an Ambulatory Assistive Device (Walker, Cane, Wheelchair, Crutches, etc.)? No PATIENT GENDER DATA: Assigned female at . status: : No status: NO. PATIENT RELEVANT IMPLANT DATA REVIEWED: Not Applicable PATIENT PRESENTS WITH AN IMPLANTABLE OR ATTACHED BULL RIVETER: No RADIOLOGY DEPARTMENT: Mammography PERIPHERAL IV DATA: Not applicable SIGNED BY: Margie Hays January 01, 2025 9:46 AM documented in this encounter [facility] 01-01-2025 Note [facility] 12-31-2024 Telephone encounter Note Patient given results and verbalized understanding of instructions given. Cynthia Bell MA [facility] 12-31-2024 Miscellaneous Notes Patient given results and verbalized understanding of instructions given. Cynthia Bell MA Fungal screen POSITIVE Complete the Nystatin at time of evaluation. Please advise. documented in this encounter [facility] 12-31-2024 Telephone encounter Note Fungal screen POSITIVE Complete the Nystatin at time of evaluation. Please advise. [facility] 12-27-2024 Note [facility] 12-27-2024 History of Present illness Narrative [facility] Subjective Chiara Croft is a 79 year old female. Patient presents with: Mouth/Lip Problem: White patches on right side of tongue, sore throat, burning, dry mouth x 3 weeks 79 year old female with PMH CVA, hyperlipidemia, HTN, asthma, GERD, hyperthyroidism, Acute onset 3 weeks ago +burning white patches +mouth pain Of note, patient has been on ATB recently , Keflex for cellulitis She has been on steroids She also utilizes inhalers She has been coughing and wheezing increasingly She is accompanied by her son. The history is provided by the patient. No junior project manager was used. Mouth/Lip Problem This is a new problem. The current episode started 1 to 4 weeks ago. The problem occurs constantly. The problem has been gradually worsening. Associated symptoms include a sore throat. Pertinent negatives include no abdominal pain, anorexia, chills, congestion or coughing. Nothing aggravates the symptoms. She has tried nothing for the symptoms. The treatment provided no relief. PAST MEDICAL HISTORY Diagnosis Date Abdominal pain Arthritis Asthma (HCC) Degenerative disc disease Depression Disorder of bone and cartilage, unspecified History of transfusion HTN (hypertension) Hypothyroid Intrinsic asthma (HCC) Mixed hyperlipidemia Hyperlipidemia Osteoarthrosis, unspecified whether generalized or localized, other specified sites Pain medication agreement 04/16/2024 vicodin refilled sparingly from PCP. PMH - PAST MEDICAL HISTORY OF CVA with weakness left side PMH - PAST MEDICAL HISTORY OF 2000 left cervical radiculopathy PMH - PAST MEDICAL HISTORY OF 2003 right rib fracture PMH - PAST MEDICAL HISTORY OF 2005 right shoulder impingement syndrome Spinal stenosis Stroke (HCC) 2005 Unspecified hypothyroidism PAST SURGICAL HISTORY Procedure Laterality Date APPENDECTOMY 1960 APPENDECTOMY HX BACK SURGERY HX 2017 L3-5 Decompression and Fusion CATARACT EXTRACTION HX Bilateral COLONOSCOPY N/A 09/15/2016 MAC EGD W/O [facility] SPEC VARICIES INJ 09/17/2016 EGD W/O [facility] SPEC VARICIES INJ 11/15/2022 EPIDURAL SITE SPECIFY lumbar spine EYE SURGERY HX PAST SURGICAL HISTORY OF 1976 thyroidectomy for toxic goiter SKIN BIOPSY HX TONSILLECTOMY HX TONSILLECTOMY PRIMARY/SECONDARY <AGE 12 Tonsillectomy ALLERGIES Cymbalta [Duloxetine], Fosamax [Alendronate Sodium], Septra [Sulfamethoxazole-Trimethoprim], Sulfamethoxazole, Tramadol, Trimethoprim, and Bupropion MEDICATIONS ipratropium-albuterol (DUONEB) 0.5 mg-3 mg(2.5 mg base)/3 mL nebu Inhale 3 mL as instructed every 6 hours as needed. ARNUITY ELLIPTA 200 mcg/actuation inhaler Inhale 1 puff as instructed once daily. predniSONE (DELTASONE) 20 mg tablet Take 20 mg by mouth once daily. predniSONE (DELTASONE) 10 mg tablet Take 10 mg by mouth once daily. amoxicillin-clavulanic acid (AUGMENTIN) 125-31.25 mg/5 mL suspension Take 500 mg by mouth once daily. pravastatin (PRAVACHOL) 10 mg tablet Take 1 tablet by mouth once daily. [START ON 12/30/2024] HYDROcodone-acetaminophen (NORCO) 5-325 mg per tablet Take 1 tablet by mouth once daily as needed for pain for up to 30 days. Patient should start on December 30, 2024. lansoprazole (PREVACID) 30 mg capsule Take 1 capsule by mouth once daily. losartan (COZAAR) 50 mg tablet TAKE 1 & 1/2 (ONE & ONE-HALF) TABLETS BY MOUTH ONCE DAILY albuterol HFA (VENTOLIN HFA) 90 mcg/actuation inhaler Inhale 2 Puffs as instructed every 4 hours as needed for wheezing/shortness of breath. levothyroxine (LEVOXYL) 88 mcg tablet Take 1 tablet by mouth once daily. Take on empty stomach. For Thyroid clopidogrel (PLAVIX) 75 mg tablet Take 1 tablet by mouth once daily. [facility] ID: [id number] [email or web address] guaifenesin/phenylephrine HCl (MUCINEX COLD ORAL) Take by mouth. lidocaine (SALONPAS) 4 % patch Apply as directed once daily. acetaminophen (TYLENOL) 500 mg tablet Take 500 mg by mouth every 8 hours as needed. nystatin (MYCOSTATIN) 100,000 unit/mL suspension Take 5 mL by mouth four times daily. 1tsp swish in mouth for several minutes, then swallow (or expectorate) 4 times daily until gone. HYDROcodone-acetaminophen (NORCO) 5-325 mg per tablet Take 1 tablet by mouth once daily as needed for pain for up to 30 days. Patient should start on November 30, 2024. FAMILY HISTORY Problem Relation Age of Onset Cerebral Embolism Mother Osteoporosis Mother other (spinal stenosis) Mother other (depression) Mother other (cva) Mother other (depression) Father other (tramatic brain syndrome) Father s/p MVA other (aplastic thyroid tumor) Sister Depression Brother in a nurs home. Stroke Maternal Grandfather Colon Cancer No Family History Social History Tobacco Use Smoking status: Former Current packs/day: 0.50 Average packs/day: 0.5 packs/day for 8.0 years (4.0 ttl pk-yrs) Types: Cigarettes Smokeless tobacco: Never Tobacco comments: quit in 1969 Vaping Use Vaping status: Never Used Substance Use Topics Alcohol use: Yes Comment: 1-2 times per week Drug use: No Review of Systems Constitutional: Negative for chills. HENT: Positive for sore throat. Negative for congestion. Respiratory: Negative for cough. Gastrointestinal: Negative for abdominal pain and anorexia. Hematological: Negative for adenopathy. Does not bruise/bleed easily. Objective BP 122/72 (BP Site: Left Arm, BP Position: Sitting) Pulse 84 Temp 36.6 C (97.8 F) Resp 16 Wt 68.9 kg (151 lb 14.4 oz) SpO2 98% BMI 26.91 kg/m Physical Exam Vitals and nursing note reviewed. Constitutional: General: She is not in acute distress. Appearance: Normal appearance. She is normal weight. She is not ill-appearing, toxic-appearing or diaphoretic. HENT: Head: Normocephalic and atraumatic. Right Ear: Ear canal and external ear normal. Left Ear: Ear canal and external ear normal. Nose: Nose normal. No congestion or rhinorrhea. Mouth/Throat: Mouth: Mucous membranes are moist. Pharynx: Posterior oropharyngeal erythema present. No oropharyngeal exudate. Comments: Mouth with marked erythema (No white patches noted) No ulcers or lesions. Uvula midline Posterior erythema Handling secretions Eyes: General: Right eye: No discharge. Left eye: No discharge. Extraocular Movements: Extraocular movements intact. Conjunctiva/sclera: Conjunctivae normal. Pupils: Pupils are equal, round, and reactive to light. Cardiovascular: Rate and Rhythm: Normal rate and regular rhythm. Pulses: Normal pulses. Heart sounds: Normal heart sounds. No murmur heard. No friction rub. Pulmonary: Effort: Pulmonary effort is normal. No respiratory distress. Breath sounds: No stridor. Wheezing and rhonchi present. No rales. Chest: Chest wall: No tenderness. Abdominal: General: Abdomen is flat. There is no distension. Palpations: Abdomen is soft. There is no mass. Tenderness: There is no abdominal tenderness. There is no right CVA tenderness, left CVA tenderness, guarding or rebound. Hernia: No hernia is present. Musculoskeletal: General: No swelling, tenderness, deformity or signs of injury. Normal range of motion. Cervical back: Normal range of motion and neck supple. No rigidity. Right lower leg: No edema. Left lower leg: No edema. Lymphadenopathy: Cervical: No cervical adenopathy. Skin: General: Skin is warm and dry. Capillary Refill: Capillary refill takes less than 2 seconds. Coloration: Skin is not jaundiced or pale. Findings: No bruising, erythema, lesion or rash. Neurological: General: No focal deficit present. Mental Status: She is alert and oriented to person, place, and time. Cranial Nerves: No cranial nerve deficit. Sensory: No sensory deficit. Motor: No weakness. Coordination: Coordination normal. Gait: Gait normal. Psychiatric: Mood and Affect: Mood normal. Behavior: Behavior normal. Thought Content: Thought content normal. Judgment: Judgment normal. {ASSESSMENT/PLAN: 1. Acute cough - ICD9: 786.2, ICD10: R05.1 (primary diagnosis) Ongoing Has a history of asthma Has been on steroids - XR CHEST 2V FRONTAL/LAT 2. Pharyngitis, unspecified etiology - ICD9: 462, ICD10: J02.9 - suspect strep vs valdemar - Group A strep molecular testing negative Fungal screen obtained RX Nystatin - Discussed supportive care treatment with fluids, rest and analgesia. - The patient should follow up in 3-5 days if symptoms persist or worsen - Call back if drooling, increased temperature, symptoms of dehydration and/or still sick in one week - STREP A MOLECULAR (POC) - YEAST SCREEN 3. Mouth pain - ICD9: 528.9, ICD10: K13.79 History of ATB usage History of inhalers Fungal screen obtained RX Nystatin Jamila Latif APRN.WEIGHT ANALYST History and Record Review Clinical information obtained from an independent historian. History obtained from or confirmed by: spouse. External record(s) reviewed: prior outpatient record and prior inpatient record. Differential Diagnoses - valdemar mouth is more likely for the following reason(s): suggested by H&P Contributing Factors Chronic conditions affecting care: hypertension Disposition The patient was discharged. Procedures documented in this encounter [facility] 12-27-2024 History of Present illness Narrative Radiology Service Progress Note PATIENT NAME: Chiara Croft DATE OF SERVICE: December 27, 2024 TIME: 1:10 PM PATIENT IDENTITY VERIFICATION COMPLETED USING TWO (2) IDENTIFIERS: Name and Date of confirmed by patient verbally. FALL SCREENING: Has the patient had 2 falls in the last year or 1 fall with injury or currently using an Ambulatory Assistive Device (Walker, Cane, Wheelchair, Crutches, etc.)? No PATIENT GENDER DATA: Assigned female at . status: : No status: NO. PATIENT RELEVANT IMPLANT DATA REVIEWED: Yes PATIENT PRESENTS WITH AN IMPLANTABLE OR ATTACHED BULL RIVETER: No RADIOLOGY DEPARTMENT: General X-ray: Exam(s) Completed: Chest X-Ray PERIPHERAL IV DATA: Not applicable SIGNED BY: RT Cindy(R) December 27, 2024 1:10 PM documented in this encounter [facility] 12-27-2024 Note [facility] 12-15-2024 Evaluation note Diagnosis Onset Date Resolution Bronchitis due to tobacco use acute December 15, 2024 11:09am Asthma chronic December 18 3:13pm [facility] Work Phone: 1(606) 959-912104-26-2025 Evaluation note* Diagnosis Onset Date Resolution Status Admit Date Bronchitis due to tobacco use acute December 15, 2024 11:09am Asthma chronic December 18 3:13pm Oral thrush acute January 08 9:42am Postnasal drip acute January 08, 2025 9:42am Asthma chronic January 08, 2025 9:42am [facility] Work Phone: [phone]) 120-831504-23-2025 [facility] Instructions* Patient Instructions* Nelsy Lawton APRN.CNP - 12/04/2024 1:06 PM EDT ASSESSMENT/PLAN: 1. Leg injury, right, initial encounter - ICD9: 959.7, ICD10: S89.91XA (primary diagnosis) - XR TIBIA FIBULA 2V AP/LAT RIGHT IMPRESSION: No acute pathology identified Clam Treader: LIUDMILA Transcribe Date/Time: Dec 04 2024 12:02P Dictated by : SAMANTA TALYOR DO 2. Fall, initial encounter - ICD9: E888.9, ICD10: W19.XXXA 3. Cellulitis of skin - ICD9: 682.9, ICD10: L03.90 - Begin treatment with Cephalaxin (Keflex) - CEPHALEXIN 500 MG CAPSULE - MUPIROCIN 2 % TOPICAL OINTMENT - Follow-up with your PCP in 3-5 days if symptoms have not improved or sooner if symptoms worsen - Discussed red flags and need for immediate medical evaluation if any occur. - Discussed supportive care treatment with fluids, rest and analgesia. - Discussed expected course of illness Nelsy Lawton APRN.CNP [facility] History of Present illness Narrative* Nelsy Lawton APRN.CNP - 12/04/2024 12:00 PM EDT Images from the original note were not included. [facility] Subjective Chiara Croft is a 79 year old female. Patient presents with: Derm Problem: Right Lower ext, wound, redness, swelling painful, fell x 8 days Scabbing on wounds, HPI Chiara Croft is a 79 year old female who presents with right lower leg injury. She fell and hit her leg against threshhold of door at home. This happened 8 days ago. She was wearing pants at the time and the pants did not tear. She put some bacitracin on it and kept it covered for a few days but it just kept oozing so she hasbeen leaving it uncovered. She noticed some increased redness around wound and some swelling. Review of Systems Constitutional: Positive for chills. Negative for fever. Respiratory: Negative. Cardiovascular: Negative. Skin: Positive for color change and wound. Negative for rash. Objective BP 157/80 Pulse 82 Temp 36.6 C (97.9 F) Resp 20 Wt 68 kg (149 lb 14.6 oz) SpO2 98% BMI 26.56 kg/m PAST MEDICAL HISTORY Diagnosis Date Abdominal pain Arthritis Asthma (HCC) Degenerative disc disease Depression Disorder of bone and cartilage, unspecified History of transfusion HTN (hypertension) Hypothyroid Intrinsic asthma (HCC) Mixed hyperlipidemia Hyperlipidemia Osteoarthrosis, unspecified whether generalized or localized, other specified sites Pain medication agreement 04/16/2024 vicodin refilled sparingly from PCP. PMH - PAST MEDICAL HISTORY OF CVA with weakness left side PMH - PAST MEDICAL HISTORY OF 2000 left cervical radiculopathy PMH - PAST MEDICAL HISTORY OF 2003 right rib fracture PMH - PAST MEDICAL HISTORY OF 2005 right shoulder impingement syndrome Spinal stenosis Stroke (HCC) 2006 Unspecified hypothyroidism PAST SURGICAL HISTORY Procedure Laterality Date APPENDECTOMY 1960 APPENDECTOMY HX BACK SURGERY HX 2017 L3-5 Decompression and Fusion CATARACT EXTRACTION HX Bilateral COLONOSCOPY N/A 09/15/2016 MAC EGD W/O [facility] SPEC VARICIES INJ 09/17/2016 EGD W/O [facility] SPEC VARICIES INJ 11/15/2022 EPIDURAL SITE SPECIFY lumbar spine EYE SURGERY HX PAST SURGICAL HISTORY OF 1976 thyroidectomy for toxic goiter SKIN BIOPSY HX TONSILLECTOMY HX TONSILLECTOMY PRIMARY/SECONDARY <AGE 12 Tonsillectomy ALLERGIES Cymbalta [Duloxetine], Fosamax [Alendronate Sodium], Septra [Sulfamethoxazole-Trimethoprim], Sulfamethoxazole, Tramadol, Trimethoprim, and Bupropion MEDICATIONS pravastatin (PRAVACHOL) 10 mg tablet Take 1 tablet by mouth once daily. HYDROcodone-acetaminophen (NORCO) 5-325 mg per tablet Take 1 tablet by mouth once daily as needed for pain for up to 30 days. Patient should start on November 30, 2024. [START ON 12/30/2024] HYDROcodone-acetaminophen (NORCO) 5-325 mg per tablet Take 1 tablet by mouth once daily as needed for pain for up to 30 days. Patient should start on December 30, 2024. lansoprazole (PREVACID) 30 mg capsule Take 1 capsule by mouth once daily. losartan (COZAAR) 50 mg tablet TAKE 1 & 1/2 (ONE & ONE-HALF) TABLETS BY MOUTH ONCE DAILY albuterol HFA (VENTOLIN HFA) 90 mcg/actuation inhaler Inhale 2 Puffs as instructed every 4 hours asneeded for wheezing/shortness of breath. levothyroxine (LEVOXYL) 88 mcg tablet Take 1 tablet by mouth once daily. Take on empty stomach. ForThyroid clopidogrel (PLAVIX) 75 mg tablet Take 1 tablet by mouth once daily. [facility] ID: [id number] [email or web address] guaifenesin/phenylephrine HCl (MUCINEX COLD ORAL) Take by mouth. lidocaine (SALONPAS) 4 % patch Apply as directed once daily. acetaminophen (TYLENOL) 500 mg tablet Take 500 mg by mouth every 8 hours as needed. cephALEXin (KEFLEX) 500 mg capsule Take 1 capsule by mouth three times a day for 10 days. mupirocin (BACTROBAN) 2 % ointment Apply 1 application to affected area once daily for 10 days. FAMILY HISTORY Problem Relation Age of Onset Cerebral Embolism Mother Osteoporosis Mother other (spinal stenosis) Mother other (depression) Mother other (cva) Mother other (depression) Father other (tramatic brain syndrome) Father s/p MVA other (aplastic thyroid tumor) Sister Depression Brother in a nursng home. Stroke Maternal Grandfather Colon Cancer No Family History Social History Tobacco Use Smoking status: Former Current packs/day: 0.50 Average packs/day: 0.5 packs/day for 8.0 years (4.0 ttl pk-yrs) Types: Cigarettes Smokeless tobacco: Never Tobacco comments: quit in 1970 Vaping Use Vaping status: Never Used Substance Use Topics Alcohol use: Yes Comment: 1-2 times per week Drug use: No PAST MEDICAL HISTORY Diagnosis Date Abdominal pain Arthritis Asthma (HCC) Degenerative disc disease Depression Disorder of bone and cartilage, unspecified History of transfusion HTN (hypertension) Hypothyroid Intrinsic asthma (HCC) Mixed hyperlipidemia Hyperlipidemia Osteoarthrosis, unspecified whether generalized or localized, other specified sites Pain medication agreement 04/16/2024 vicodin refilled sparingly from PCP. PMH - PAST MEDICAL HISTORY OF CVA with weakness left side PMH - PAST MEDICAL HISTORY OF 2000 left cervical radiculopathy PMH - PAST MEDICAL HISTORY OF 2003 right rib fracture PMH - PAST MEDICAL HISTORY OF 2005 right shoulder impingement syndrome Spinal stenosis Stroke (HCC) 2005 Unspecified hypothyroidism PAST SURGICAL HISTORY Procedure Laterality Date APPENDECTOMY 1960 APPENDECTOMY HX BACK SURGERY HX 2017 L3-5 Decompression and Fusion CATARACT EXTRACTION HX Bilateral COLONOSCOPY N/A 09/15/2016 MAC EGD W/O [facility] SPEC VARICIES INJ 09/17/2016 EGD W/O [facility] SPEC VARICIES INJ 11/15/2022 EPIDURAL SITE SPECIFY lumbar spine EYE SURGERY HX PAST SURGICAL HISTORY OF 1976 thyroidectomy for toxic goiter SKIN BIOPSY HX TONSILLECTOMY HX TONSILLECTOMY PRIMARY/SECONDARY <AGE 11 Tonsillectomy ALLERGIES Cymbalta [Duloxetine], Fosamax [Alendronate Sodium], Septra [Sulfamethoxazole-Trimethoprim], Sulfamethoxazole, Tramadol, Trimethoprim, and Bupropion MEDICATIONS pravastatin (PRAVACHOL) 10 mg tablet Take 1 tablet by mouth once daily. HYDROcodone-acetaminophen (NORCO) 5-325 mg per tablet Take 1 tablet by mouth once daily as needed for pain for up to 30 days. Patient should start on November 30, 2024. [START ON 12/30/2024] HYDROcodone-acetaminophen (NORCO) 5-325 mg per tablet Take 1 tablet by mouth once daily as needed for pain for up to 30 days. Patient should start on December 30, 2024. lansoprazole (PREVACID) 30 mg capsule Take 1 capsule by mouth once daily. losartan (COZAAR) 50 mg tablet TAKE 1 & 1/2 (ONE & ONE-HALF) TABLETS BY MOUTH ONCE DAILY albuterol HFA (VENTOLIN HFA) 90 mcg/actuation inhaler Inhale 2 Puffs as instructed every 4 hours asneeded for wheezing/shortness of breath. levothyroxine (LEVOXYL) 88 mcg tablet Take 1 tablet by mouth once daily. Take on empty stomach. ForThyroid clopidogrel (PLAVIX) 75 mg tablet Take 1 tablet by mouth once daily. [facility] ID: [id number] [email or web address] guaifenesin/phenylephrine HCl (MUCINEX COLD ORAL) Take by mouth. lidocaine (SALONPAS) 4 % patch Apply as directed once daily. acetaminophen (TYLENOL) 500 mg tablet Take 500 mg by mouth every 8 hours as needed. FAMILY HISTORY Problem Relation Age of Onset Cerebral Embolism Mother Osteoporosis Mother other (spinal stenosis) Mother other (depression) Mother other (cva) Mother other (depression) Father other (tramatic brain syndrome) Father s/p MVA other (aplastic thyroid tumor) Sister Depression Brother in a nursng home. Stroke Maternal Grandfather Colon Cancer No Family History Social History Tobacco Use Smoking status: Former Current packs/day: 0.50 Average packs/day: 0.5 packs/day for 8.0 years (4.0 ttl pk-yrs) Types: Cigarettes Smokeless tobacco: Never Tobacco comments: quit in 1969 Vaping Use Vaping status: Never Used Substance Use Topics Alcohol use: Yes Comment: 1-2 times per week Drug use: No Physical Exam Vitals and nursing note reviewed. Constitutional: Appearance: Normal appearance. She is not ill-appearing. Cardiovascular: Rate and Rhythm: Normal rate. Pulmonary: Effort: Pulmonary effort is normal. Musculoskeletal: Right lower leg: Swelling and tenderness present. No bony tenderness. Legs: Skin: General: Skin is warm and dry. Findings: Erythema present. No bruising or rash. Neurological: Mental Status: She is alert. {ASSESSMENT/PLAN: 1. Leg injury, right, initial encounter - ICD9: 959.7, ICD10: S89.91XA (primary diagnosis) - XR TIBIA FIBULA 2V AP/LAT RIGHT IMPRESSION: No acute pathology identified Clam Treader: LIUDMILA Transcribe Date/Time: Dec 04 2024 12:02P Dictated by : SAMANTA TAYLOR DO 2. Fall, initial encounter - ICD9: E888.9, ICD10: W19.XXXA 3. Cellulitis of skin - ICD9: 682.9, ICD10: L03.90 - Begin treatment with Cephalaxin (Keflex) - CEPHALEXIN 500 MG CAPSULE - MUPIROCIN 2 % TOPICAL OINTMENT - Follow-up with your PCP in 3-5 days if symptoms have not improved or sooner if symptoms worsen - Discussed red flags and need for immediate medical evaluation if any occur. - Discussed supportive care treatment with fluids, rest and analgesia. - Discussed expected course of illness Nelsy Lawton APRN.CNP History and Record Review Clinical information obtained from an independent historian. History obtained from or confirmed by:spouse. Differential Diagnoses - cellulitis is more likely for the following reason(s): suggested by H&P - DVT is less likely for the following reason(s): H&P not suggestive - tib/fib fracture is less likely for the following reason(s): no evidence on imaging Management I performed an independent interpretation of the following:imaging Imaging: My interpretation is see Plan Additional Tests or Interventions The following testing was considered but ultimately not selected after discussion with patient/family: ultrasound r/o DVT The following medication(s) were considered but not ordered: no calf swelling or tenderness; on Plavix Disposition The patient was discharged. Procedures documented in this encounterD[facility]04-15-2025 History of Present illness Narrative* Evelyne Montalvo Tech - 12/04/2024 11:50 AM EDT Radiology Service Progress Note PATIENT NAME: Chiara Croft DATE OF SERVICE: December 04, 2024 TIME: 11:44 AM PATIENT IDENTITY VERIFICATION COMPLETED USING TWO (2) IDENTIFIERS: Name and Date of confirmedby patient verbally. FALL SCREENING: Has the patient had 2 falls in the last year or 1 fall with injury or currently using an Ambulatory Assistive Device (Walker, Cane, Wheelchair, Crutches, etc.)? No PATIENT GENDER DATA: Assigned female at . status: : No status:NO. PATIENT RELEVANT IMPLANT DATA REVIEWED: Not Applicable PATIENT PRESENTS WITH AN IMPLANTABLE OR ATTACHED BULL RIVETER: No RADIOLOGY DEPARTMENT: General X-ray: Exam(s) Completed: Lower Extremity X- Ray(s): Tibia Fibula, Right PERIPHERAL IV DATA: Not applicable SIGNED BY: Deny Massey December 04, 2024 11:44 AM documented in this encounterDiley [facility] Center04-15-2025 [facility] NoteOhio[facility] History of Present illness Narrative* Karmen Amador, PT - 11/29/2024 2:40 PM EDT Images from the original note were not included. Episode Visit Count: 23 Therapist That Will Accept/Oversee The Plan Of Care: Karmenceci Amador Start of Care Date: 12/06/23 Onset Date: 11/21/23 Plan of Care Certification Date: 10/09/24 Next Certification Due Date: 01/06/25 REHABILITATION AND SPORTS THERAPY PHYSICAL THERAPY PROGRESS REPORT PLAN OF CARE UPDATE: Assessment: Chiara Enriqueta demonstrates minimal improvement in standing, walking, bending, cleaning, and cooking. The patient has progressed toward goals. Patient continues to present with impairments in ADL's,range of motion, strength, symptom management, and tissue tenderness that interfere with sitting, standing, walking, heavy exertion, lifting . Current prognosis is Good due to: current objective clinical presentation, good overall health status, positive past response to therapy, within-session changes, good support system/ coping skills . The patient will benefit from continued skilled therapy services to meet the updated goals for this plan of care as noted below. Goals updated on 11/29/2024. Goals for Episode of Care: created on 06/25/24 Independent in home exercises. Met Patient will decrease pain rating by 2 points to meet minimal clinical important difference for numeric pain rating scale. Partially met Restore pain-free lumbar ROM to WNL to allow for pain free functional ADLs Stand / Walk community distances without pain/symptoms. Progressing Sleep through night without pain/symptoms. Progressing Sit 45 minutes minutes without pain/symptoms to allow for comfortable sitting arrangements and improved overall QoL. Progressing Maintain proper sitting posture throughout session. Met Patient will increase strength of hip flexion, aBd, knee extension to 4+/5 to allow for improve ability to complete ADLs. Progressing Patient Goals: Reduce pain and be able to complete functional ADLs w/o pain Time Frame for Goals and Treatment : 02/27/25 Planned Interventions, Frequency, and Duration: 1x/month, 12 weeks Total Number of Visits Planned: 3 Patient to be seen for Therapeutic exercise (27896), Neuromuscular re-education (50861), Manual therapy (39788), Therapeutic activities (65906), Self-shelter management (62378), Patient/Family/Caregiver Education, Body Mechanics Training PLAN FOR NEXT VISIT: Manual plus needling and TENS for symptom modulation. May try to progress walking program or neutral spine strengthening if tolerated SUBJECTIVE: Patient is pretty sore in the back and buttocks today. Notes that she didn't over exertherself. But, for 3 weeks, she felt really good. Functional Limitations: sitting, standing, walking, heavy exertion, lifting Pain: Pain Pain Level: 7 Pain Location: Buttocks - Right Description: Aching, Sore, Sharp Frequency: Continuous PROMIS Scales 11/21/2024 11/18/2024 10/23/2024 Higher is Better Phys Func - T Score 35 (moderate dysfunction) 35 (moderate dysfunction) Phys Func - Percentile 7 7 Self-Eff Symptom - T Score 44 (Average) Self-Eff Symptom - Percentile 27 11/18/2024 09/24/2024 08/21/2024 Lower is Better Pain Interference - T Score 59 (mild) 63 (moderate) 66 (moderate) Pain Interference - Percentile 18 10 5 T-scores: mean of general population = 50. 5 points is clinically meaningfully difference Percentiles provide an indication of how the patient's score ranks in relation to the general population. Higher percentile rankings indicate better function/quality of life. 50th percentile is the average of the general population and indicates half of respondents had a worse score. OBJECTIVE MEASURES WITH LEVEL OF FUNCTION: Spine Observations R Lumbar Spine Palpation Tenderness: Gluteals, Paraspinals Lumbar Spine AROM Lumbar Flexion: Normal Lumbar Extension: Major limitation, Peripheralizing Lumbar R Side-Bend: Minimal limitation, End range pain Lumbar L Side-Bend: Minimal limitation, End range pain Lumbar R Rotation: Normal Lumbar L Rotation: Normal LE Strength Trunk Strength: 3+/5 (painful today, pain may be inhibiting strength) TREATMENT: Manual Therapy: 2: STM and TrPr to R QL and glute med with push to tolerance Dry Needling: (2) 60 and 75 mm needles to R L3-5 paraspinals in clock technique with placement of needles plus TENS; Also (2) 75 mm needles to L gluteals max/med with placement of needle plus TENS Skilled Intervention: Manual skills to improve joint mobility, ROM, and decrease pain. Utilized anatomy knowledge of the therapist, and assessment of patient's response to intervention. Modalities: Body Region Treated - E-Stim Attended/TENS: Lumbar paraspinals L3-5, and glute med Patient Position: L side lying Current: 10 Hz Channels: 1-2, 3 Intensity: Ch 1-2: 4.0 V; Ch 3: 2.0V V Minutes: 10 Skilled Intervention: Proper administration and selection of modality based on clinical presentation, deficits, and needs. Patient response monitored throughout treatment. Billing Manual TherapyTreatment Minutes: 30 E- Stim Attended/TENS Treatment Minutes: 10 Skilled Treatment Time Minutes (timed and untimed codes): 40 Total Session Time (minutes): 40 Session Start Time : 0820 Session Stop Time : 0900 Karmen Amador PT documented in this encounterDiley [facility]04-08-2025 NoteOhio[facility]04-08-2025 History of Present illness Narrative* Nelsy Shay MA - 11/27/2024 9:48 AM EDT POPULATION HEALTH NAVIGATION OUTREACH Action/FYI SCHEDULED 6 MONTH F/U Topic Due (Y or N) Comments Medicare Wellness PCP Follow up Y DUE IN MAY Colorectal Cancer Screening Controlling Blood Pressure A1C HCC Flu Vaccine Care Everywhere Reviewed MyChart Activation Updated Appointment Note Reason for Outreach Care Gap/HCC or Scheduling Wellness Visits Care Gaps due: Follow-up Appointment Patient Contacted: Spoke to patient/parent/or legal guardian Patient identified by name and : Yes Care Gap/HCC/Scheduling Wellness actions taken: Patient scheduled/pended orders: Follow-up Appointment 11/28/2024 in PT [facility] with KARMEN AMADOR - S76.311A (ICD-10-CM) - Hamstring strain, right, initial encounter 12/20/[address] [facility] with QUITA BARTH - Pain Med Review 01/01/2025 in RADIO [facility] with DIAGNOSTIC M[facility] - 6 MONTH FOLLOW UP 03/13/2025 in [facility] with GA NURSE - Ashia 05/31/2025 in [facility] with ANGIE AGUIRRE - FOLLOW UP 6 MONTH Navigation Signature: Nelsy Shay MA November 27, 2024 9:48 AM documented in this encounterDiley [facility]04-01-2025 NoteOhio[facility]04-01-2025 History of Present illness Narrative* Quita Barth, BIOINFORMATICS SOFTWARE ENGINEER.WEIGHT ANALYST - 11/20/2024 2:55 PM EDT Images from the original note were not included. Subjective Chiara Croft presents to [facility] for a follow up appointment. Since the last visit, Chiara Croft states the pain has been better. Current pain intensity is 4 on a scale of 0-10. Pain located in right buttock pain that radiates into the right hip. Pain described as aching and sharp. Symptoms interfere with physical activity, cooking, and cleaning. Pain is exacerbated by house work and physical activity. Pain is mitigated by heat, exercise, stretching, TENS unit, and medication. The medications are effective. The patient states the last dose of Klondike was taken yesterday. Patient Entered Questionnaires PROMIS Score Percentiles 03/03/2024 06/24/2024 09/24/2024 PROMIS Global Health Scale Physical Health Percentile 22* 31 15 Mental Health Percentile 43 73 34 Patient-reported 09/24/2024 10/23/2024 11/18/2024 Physical Health Physical Function Percentile 8 7 7 Pain Interference Percentile 10 18* Percentiles provide an indication of how the patient's score ranks in relation to the general population. Higher percentile rankings indicate better function/quality of life. 50th percentile is the average of the general population and indicates half of respondents had a worse score. > 31st percentile is within normal limits or better * < 31st percentile is at least SD worse than population, which may be clinically relevant < 16th percentile is at least 1 SD worse than population and warrants attention Review of Systems Constitutional: (-) Weight Gain (-) Weight Loss (-) Fatigue Cardiovascular: (-) hx heart surgery (-) Pacemaker Respiratory: (-) Shortness of Breath (-) Cough (-) Snoring Gastrointestinal: (-) Incontinence (-) Diarrhea (-) Constipation (-) Nausea/Vomiting Endocrine: (+) Thyroid Disorder (-) Diabetes Hematologic: (+) Prolonged Bleeding (+) Easy Bruising Genitourinary: (-) Incontinence (-) Frequency (-) Urinary Urgency Skin: (-) Open sores/wound Neurologic: (-) Headache (-) Double Vision Psychiatric: (-) Depression (-) Anxiety (-) Personal History of Alcohol or Substance Abuse (-) Family History of Alcohol or Substance Abuse Chief Complaint Patient presents with: Follow Up Back Pain Physical Examination Pulse 80 Wt 149 lb 7.6 oz (67.8kg) SpO2 98% General:well appearing and alert Skin: Skin color, texture, turgor normal, no rashes or lesions HEENT: normocephalic, atraumatic, sclera non-icteric Cardiovascular: Regular, rate and rhythm Lungs: Normal respiratory rate and rhythm, unlabored on room air Musculoskeletal: Back: Tenderness on palpation over the lumbar spine. , Tenderness over the right lumbar paraspinal muscles Extremities: Extremities normal. No deformities, edema, or skin discoloration Neurological: Mental Status: alert Motor Strength: Motor strength and tone are 5/5 all throughout. Sensory: Not Examined Gait: Antalgic. Trigger points: lumbosacral spine muscles. Assessment Assessment : Patient presents for follow-up visit for medication refills. She is accompanied with her Patient has chronic low back pain that is radiating into the right buttocks, thigh to the knee Patient reports that she started an exercise program and was walking more She takes Klondike to help manage her chronic pain Ordered tox screen and pain panel to be completed at the lab prior to the next visit Encounter Diagnosis ICD-10-CM 1. Continuous use of opioids F11.90 QUANTITATIVE TOXICOLOGY PANEL, URINE TOXICOLOGY SCREEN, ROUTINE URINE 2. Radiculopathy, lumbar region M54.16 HYDROcodone-acetaminophen (NORCO) 5-325 mg per tablet HYDROcodone-acetaminophen (NORCO) 5-325 mg per tablet 3. Lumbar facet arthropathy M47.816 HYDROcodone-acetaminophen (NORCO) 5-325 mg per tablet HYDROcodone-acetaminophen (NORCO) 5-325 mg per tablet 4. Lumbar spondylosis M47.816 HYDROcodone-acetaminophen (NORCO) 5-325 mg per tablet HYDROcodone-acetaminophen (NORCO) 5-325 mg per tablet 5. Other spondylosis, lumbar region M47.896 QUANTITATIVE TOXICOLOGY PANEL, URINE TOXICOLOGY SCREEN, ROUTINE URINE 11/18/2024 PROMIS CAT Pain Interference PROMIS Pain Interference T-Score (range: 10 - 90) 59 (mild) PROMIS Pain Interference Percentile 18 Descriptive Summary for PROMIS Physical Function T-score = 35 (Percentile 7) Much difficulty - Carry a laundry basket up a flight of stairs. Some difficulty - Walk at a normal speed. Unable - Walk more than a mile (1.6 km). OARRS Report: Reviewed: The patient's OARRS report was reviewed and is consistent with the reportedmedication use. Urine Panel: Lab Results Component Value Date Cannabinoid Quant, Urine <16 01/02/2024 Benzoylecgonine Quant, Urine <24 01/02/2024 6-Acetylmorphine Quant, Urine <5 01/02/2024 Amphetamine Quant, Urine <5 01/02/2024 Methamphetamine Quant, Urine <8 01/02/2024 Buprenorphine Quant, Urine <20 01/02/2024 Norbuprenorphine Quant, Urine <20 01/02/2024 Methadone Quant, Urine <16 01/02/2024 EDDP Quant, Urine <6 01/02/2024 Tramadol Quant, Urine <25 01/02/2024 Desmethyltramadol Quant, Urine <20 01/02/2024 Fentanyl Quant, Urine <6 01/02/2024 Norfentanyl Quant, Urine <6 01/02/2024 Codeine Quant, Urine <11 01/02/2024 Morphine Quant, Urine <10 01/02/2024 Dihydrocodeine Quant, Urine <5 01/02/2024 Hydrocodone Quant, Urine <8 01/02/2024 Oxycodone Quant, Urine <10 01/02/2024 Hydromorphone Quant, Urine <5 01/02/2024 Oxymorphone Quant, Urine <5 01/02/2024 The pain panel was Reviewed - No inconsistencies noted. Discussion: A discussion was entertained regarding multicomponent back pain source. Discussed conservative options and focus on improvement of function. Discussed the rationale behind interventional approach andhow it can facilitate improvement of pain but also diagnostic information that procedures provide. L jazmin term use of any opioid pain medication is discouraged in chronic benign pain. Plan Injection history was reviewed. Medication use and compliance were reviewed. 1. Continue medication management through the [facility] 2. The following approved medication requests have been transmitted electronically. Requested Prescriptions Signed Prescriptions Disp Refills HYDROcodone-acetaminophen (NORCO) 5-325 mg per tablet 30 tablet 0 Sig: Take 1 tablet by mouth once daily as needed for pain for up to 30 days. Patient should start on November 30, 2024. HYDROcodone-acetaminophen (NORCO) 5-325 mg per tablet 30 tablet 0 Sig: Take 1 tablet by mouth once daily as needed for pain for up to 30 days. Patient should start on December 30, 2024. 3. Interventional procedure options discussed. none 4. Continue regular home exercise program. 5. Ordered pain panel and tox screen to be completed by the lab prior to next OV 6) F/U in 2 months The level of medical decision making for this encounter was low level. I spent a total of 25 minutes on the date of the service which included preparing to see the patient, [id number] patient care, completing clinical documentation, performing a medically appropriate examination, and ordering medications, tests, or procedures. 1. This document has been created with the use of voice recognition technology. It may contain inaccuracies: (e.g. misspellings, inaccurate syntax or word sense) that have escaped review. 2. The physician, nursing staff and medical assistants are a major part of YOUR TREATMENT TEAM and will be handling your phone calls and inquiries, if any. Unless explicitly told otherwise at the time of your office visit, your study results and ensuing treatment plans will be discussed during yourfollow-up appointment. If you do not have a follow-up appointment and wish to discuss any issues, please set up an appointment. 3. It is my practice to not fill disability or any other insurance-related forms/documentation. Allof the office notes, study results, and other pertinent documentation generated as part of your evaluation will be available to you and to your Primary Care Physician (PCP). Use of this material to complete such forms will be at the discretion of your PCP/referring physician. The above plan and management options were discussed at length with patient. Patient is in agreement with the above and verbalized understanding. Quita Barth APRN, SAURABH November 20, 2024 documented in this encounterDiley [facility] Center03-31-2025 Instructions* Patient Instructions* Angie Aguirre APRN.CNP - 11/19/2024 9:44 AM EDT Get lab work We will follow up with the results of the labs Continue to do exercises and watch diet documented in this encounterDiley [facility] Center03-31-2025 NoteOhio[facility]03-31-2025 History of Present illness Narrative* Angie Aguirre APRN.SAURABH - 11/19/2024 9:11 AM EDT This is a 79 year old female who presents today with: Patient presents with: Discussion: Would like to discuss cholesterol medication HISTORY OF PRESENT ILLNESS: Chiara Croft is a 79 year old female. Patient presents with: Discussion: Would like to discuss cholesterol medication HYPERLIPIDEMIA: Patient is taking medications: No. Patient is watching diet: sometimes. Patient denies myalgias: Yes, in back. Patient denies gi upset: No Has been on crestor for several years Has been suffering from chronic pain Decided that one month ago she wanted to discontinue taking the crestor Has started new exercise program and has been increasing walks Has been feeling a lot better since being off of the crestor Last lipid panel was within normal limits Appetite has been stable Hx of stroke 20 years ago and was put on crestor as a preventative but has never had elevated lipidpanel REVIEW OF SYSTEMS GENERAL: No weight loss, malaise or fevers/chills. HEENT: Negative for frequent or significant headaches, No changes in hearing or vision. NECK: Negative for lumps, goiter, pain and significant neck swelling RESPIRATORY: Negative for cough, hemoptysis, wheezing, dyspnea or shortness of breath CARDIOVASCULAR: Negative for chest pain, leg swelling, orthopnea, or palpitations GI: No nausea, vomiting, or diarrhea/constipation. No hematochezia/melena. No heartburn or reflux symptoms. : No history of dysuria, frequency or incontinence MUSCULOSKELETAL: Negative for joint pain or swelling. Intermittent chronic back pain. SKIN: Negative for lesions, rash, and itching ENDOCRINE: Negative for cold or heat intolerance, polyuria, polydipsia and goiter NEURO: No history of headaches, syncope, paralysis, seizures or tremors. PAST MEDICAL HISTORY: PAST MEDICAL HISTORY Diagnosis Date Abdominal pain Arthritis Asthma Degenerative disc disease Depression Disorder of bone and cartilage, unspecified History of transfusion HTN (hypertension) Hypothyroid Intrinsic asthma Mixed hyperlipidemia Hyperlipidemia Osteoarthrosis, unspecified whether generalized or localized, other specified sites Pain medication agreement 04/16/2024 vicodin refilled sparingly from PCP. PMH - PAST MEDICAL HISTORY OF CVA with weakness left side PMH - PAST MEDICAL HISTORY OF 2000 left cervical radiculopathy PMH - PAST MEDICAL HISTORY OF 2003 right rib fracture PMH - PAST MEDICAL HISTORY OF 2005 right shoulder impingement syndrome Spinal stenosis Stroke (HCC) 2005 Unspecified hypothyroidism PAST SURGICAL HISTORY Procedure Laterality Date APPENDECTOMY 1959 APPENDECTOMY HX BACK SURGERY HX 2016 L3-5 Decompression and Fusion CATARACT EXTRACTION HX Bilateral COLONOSCOPY N/A 09/15/2016 MAC EGD W/O [facility] SPEC VARICIES INJ 09/17/2016 EGD W/O [facility] SPEC VARICIES INJ 11/15/2022 EPIDURAL SITE SPECIFY lumbar spine EYE SURGERY HX PAST SURGICAL HISTORY OF 1976 thyroidectomy for toxic goiter SKIN BIOPSY HX TONSILLECTOMY HX TONSILLECTOMY PRIMARY/SECONDARY <AGE 12 Tonsillectomy ALLERGIES Cymbalta [Duloxetine], Fosamax [Alendronate Sodium], Septra [Sulfamethoxazole-Trimethoprim], Sulfamethoxazole, Tramadol, Trimethoprim, and Bupropion MEDICATIONS Current Outpatient Medications Medication Sig lansoprazole (PREVACID) 30 mg capsule Take 1 capsule by mouth once daily. losartan (COZAAR) 50 mg tablet TAKE 1 & 1/2 (ONE & ONE-HALF) TABLETS BY MOUTH ONCE DAILY HYDROcodone-acetaminophen (NORCO) 5-325 mg per tablet Take 1 tablet by mouth once daily as needed for pain for up to 30 days. Patient should start on October 31, 2024. gabapentin (NEURONTIN) 300 mg capsule Take 1 capsule by mouth daily at bedtime for 30 days. albuterol HFA (VENTOLIN HFA) 90 mcg/actuation inhaler Inhale 2 Puffs as instructed every 4 hours asneeded for wheezing/shortness of breath. rosuvastatin (CRESTOR) 5 mg tablet Take 1 tablet by mouth once daily. levothyroxine (LEVOXYL) 88 mcg tablet Take 1 tablet by mouth once daily. Take on empty stomach. ForThyroid clopidogrel (PLAVIX) 75 mg tablet Take 1 tablet by mouth once daily. [facility] ID: [id number] [email or web address] guaifenesin/phenylephrine HCl (MUCINEX COLD ORAL) Take by mouth. lidocaine (SALONPAS) 4 % patch Apply as directed once daily. acetaminophen (TYLENOL) 500 mg tablet Take 500 mg by mouth every 8 hours as needed. No current facility-administered medications for this visit. FAMILY HISTORY Problem Relation Age of Onset Cerebral Embolism Mother Osteoporosis Mother other (spinal stenosis) Mother other (depression) Mother other (cva) Mother other (depression) Father other (tramatic brain syndrome) Father s/p MVA other (aplastic thyroid tumor) Sister Depression Brother in a nursng home. Stroke Maternal Grandfather Colon Cancer No Family History Social History Tobacco Use Smoking status: Former Current packs/day: 0.50 Average packs/day: 0.5 packs/day for 8.0 years (4.0 ttl pk-yrs) Types: Cigarettes Smokeless tobacco: Never Tobacco comments: quit in 1969 Vaping Use Vaping status: Never Used Substance Use Topics Alcohol use: Yes Comment: 1-2 times per week Drug use: No EXAM: BP 118/76 Pulse (!) 45 Resp 16 PHYSICAL EXAM: General Appearance: Well appearing, alert, in no acute distress, well-hydrated, well nourished.. Lungs: Lungs clear to auscultation. No wheezing, rhonchi, rales.. Heart: RRR without murmur, gallop, or rubs. No ectopy. Extremities: No deformities, edema, skin discoloration, clubbing or cyanosis. Good capillary refill. . Musculoskeletal: No joint swelling, deformity, or tenderness. ASSESSMENT/PLAN: 1. Hyperlipidemia, unspecified hyperlipidemia type - ICD9: 272.4, ICD10: E78.5 (primary diagnosis) - Control undetermined, due for labs - Counseled on healthy diet and regular exercise - Patient currently not taking Crestor, will determine with labs if medication is still warranted - At this time patient would like to continue treatment with diet modifications and exercise - LIPID PANEL, FASTING - LIPOPROTEIN (A) - COMPLETE BLOOD COUNT AND DIFFERENTIAL - COMPREHENSIVE METABOLIC PANEL 2. Chronic right-sided low back pain without sciatica - ICD9: 724.2, 338.29, ICD10: M54.50, G89.29 - Stable - Currently doing better without being on crestor, having fewer back spasms - Will continue current regimen at this time 3. Post-surgical hypothyroidism - ICD9: 244.0, ICD10: E89.0 - Instructed patient on importance of taking on an empty stomach either first thing in the morning or at bedtime. - check TSH and free T4 this week - continue current dose of levothyroxine 88 mcg - Follow up in 6 months - THYROID STIMULATING HORMONE - T4 FREE/FREE THYROXINE 4. Primary hypertension - ICD9: 401.9, ICD10: I10 - Controlled - Continue current medications - Recommend home blood pressure monitoring, to bring results to next visit - Encouraged sodium restriction, DASH or Mediterranean diet - Recommend regular aerobic exercise - Follow up in 6 months for hypertension visit - COMPLETE BLOOD COUNT AND DIFFERENTIAL - COMPREHENSIVE METABOLIC PANEL Discussed treatment plan and patient voices understanding. Patient's questions answered appropriately. Medications and potential side effects were discussed and patient voices understanding. Return to the office as scheduled or as needed for worsening/no improvement. The patient indicates understanding of these issues and agrees with the plan. Angie Aguirre APRN.WEIGHT ANALYST documented in this encounterD[facility]03-11-2025 NoteOhio[facility]-11-[facility] History of Present illness Narrative* Karmen Amador, PT - 10/30/2024 2:32 PM EDT Episode Visit Count: 22 Therapist That Will Accept/Oversee The Plan Of Care: Karmen Amador Start of Care Date: 12/06/23 Onset Date: 11/21/23 Plan of Care Certification Date: 10/09/24 Next Certification Due Date: 01/06/25 REHABILITATION AND SPORTS THERAPY PHYSICAL THERAPY TREATMENT NOTE ASSESSMENT: Chiara Croft tolerated the session with decreased symptoms and no issues. She demonstrated improvements in tolerance for ADLs and recreational walking. The patient will continue to benefit from ongoing skilled physical therapy to progress toward set goals. PLAN FOR NEXT VISIT: SUBJECTIVE: Patient had a good 3 weeks since last being seen. No company/hosting and no travelling or extensive physical activity outside of her normal recreational walks. Pain: Pain Pain Level: 3 Pain Location: Buttocks - Right Description: Aching, Sore, Sharp Frequency: Continuous OBJECTIVE MEASURES WITH LEVEL OF FUNCTION: Spine Observations R Lumbar Spine Palpation Tenderness: Gluteals, Paraspinals TREATMENT: Manual Therapy: 2: STM and TrPr to R QL and glute med with push to tolerance Dry Needling: (2) 60 and 75 mm needles to R L3-5 paraspinals in clock technique with placement of needles plus TENS; Also (2) 75 mm needles to L gluteals max/med with placement of needle plus TENS Skilled Intervention: Manual skills to improve joint mobility, ROM, and decrease pain. Utilized anatomy knowledge of the therapist, and assessment of patient's response to intervention. Modalities: Body Region Treated - E-Stim Attended/TENS: Lumbar paraspinals L3-5, and glute med Patient Position: L side lying Current: 10 Hz Channels: 1-2, 3 Intensity: Ch 1-2: 5.5 V; Ch 3: 6.5-7.5 V Minutes: 10 Skilled Intervention: Proper administration and selection of modality based on clinical presentation, deficits, and needs. Patient response monitored throughout treatment. Billing Manual TherapyTreatment Minutes: 31 E- Stim Attended/TENS Treatment Minutes: 10 Skilled Treatment Time Minutes (timed and untimed codes): 41 Total Session Time (minutes): 41 Session Start Time : 914 Session Stop Time : 955 Karmen Amador PT documented in this encounterDiley [facility]02-19-2025 NoteOhiohealth [facility]02-19-2025 History of Present illness Narrative* Nelsy Shay MA - 10/10/2024 12:38 PM EST POPULATION HEALTH NAVIGATION OUTREACH Action/I Spoke to Chiara . pt declined Topic Due (Y or N) Comments Medicare Wellness Y PCP Follow up Colorectal Cancer Screening Controlling Blood Pressure Y A1C HCC Flu Vaccine Care Everywhere Reviewed MyChart Activation Updated Appointment Note Y Reason for Outreach Care Gap/HCC or Scheduling Wellness Visits Care Gaps due: Medicare Annual Wellness Visit Controlling Blood Pressure Patient Contacted: Spoke to patient/parent/or legal guardian Patient identified by name and : Yes Care Gap/HCC/Scheduling Wellness actions taken: Patient declined: Doesn't feel it's necessary Navigation Signature: Nelsy Shay MA October 10, 2024 12:38 PM documented in this encounterDiley Ridge [facility] Center02-18-2025 NoteOhiohealth [facility]02-18-2025 History of Present illness Narrative* Karmen Amador, PT - 10/09/2024 10:36 AM EST Images from the original note were not included. Episode Visit Count: 21 Therapist That Will Accept/Oversee The Plan Of Care: Karmen Amador Start of Care Date: 12/06/23 Onset Date: 11/21/23 Plan of Care Certification Date: 10/09/24 Next Certification Due Date: 01/06/25 REHABILITATION AND SPORTS THERAPY PHYSICAL THERAPY PROGRESS REPORT PLAN OF CARE UPDATE: Assessment: Chiara Croft demonstrates difficulty with sitting, bending, and heavy exertion. The patient has progressed toward goals. Patient continues to present with impairments in ADL's, overall function, range of motion, strength, symptom management, and tissue tenderness that interfere with sitting, standing, walking, heavy exertion, lifting . Current prognosis is Good due to: current objective clinical presentation, good overall health status, positive past response to therapy, within-session changes, good support system/ coping skills . The patient will benefit from continued skilled therapy services to meet the updated goals for this plan of care as noted below. Goals updated on 10/09/2024. Goals for Episode of Care: created on 06/25/24 Independent in home exercises. Met Patient will decrease pain rating by 2 points to meet minimal clinical important difference for numeric pain rating scale. Partially met Restore pain-free lumbar ROM to WNL to allow for pain free functional ADLs Stand / Walk community distances without pain/symptoms. Progressing Sleep through night without pain/symptoms. Progressing Sit 45 minutes minutes without pain/symptoms to allow for comfortable sitting arrangements and improved overall QoL. Progressing Maintain proper sitting posture throughout session. Met Patient will increase strength of hip flexion, aBd, knee extension to 4+/5 to allow for improve ability to complete ADLs. Progressing Patient Goals: Reduce pain and be able to complete functional ADLs w/o pain Time Frame for Goals and Treatment : 12/10/24 Planned Interventions, Frequency, and Duration: 1x/month, 12 weeks Total Number of Visits Planned: 3 Patient to be seen for Therapeutic exercise (35142), Neuromuscular re-education (03348), Manual therapy (13647), Therapeutic activities (68881), Self-shelter management (16983), Patient/Family/Caregiver Education, Body Mechanics Training PLAN FOR NEXT VISIT: Continue manual techniques for symptom modulation and functional activity tolerance SUBJECTIVE: Patient had another 3 weeks of relief before pain returned. This time it returned aftera long drive home from [place]. 8 hours sitting in the car really stirred things up. Mostly feeling symptoms in the buttocks, sharp and stabbing. Functional Limitations: sitting, standing, walking, heavy exertion, lifting Pain: Pain Pain Level: 6 Pain Location: Buttocks - Right Description: Stabbing, Sharp Frequency: Continuous PROMIS Scales 10/03/2024 09/24/2024 08/21/2024 Higher is Better Phys Func - T Score 36 (moderate dysfunction) 35 (moderate dysfunction) Phys Func - Percentile 8 7 Self-Eff Symptom - T Score 41 (Average) Self-Eff Symptom - Percentile 18 09/24/2024 08/21/2024 05/15/2024 Lower is Better Pain Interference - T Score 63 (moderate) 66 (moderate) 64 (moderate) Pain Interference - Percentile 10 5 8 T-scores: mean of general population = 50. 5 points is clinically meaningfully difference Percentiles provide an indication of how the patient's score ranks in relation to the general population. Higher percentile rankings indicate better function/quality of life. 50th percentile is the average of the general population and indicates half of respondents had a worse score. OBJECTIVE MEASURES WITH LEVEL OF FUNCTION: Spine Observations R Lumbar Spine Palpation Tenderness: Gluteals, Paraspinals TREATMENT: Manual Therapy: 1: Objective measures obtained 2: STM and TrPr to R QL and glute med with push to tolerance Dry Needling: (2) 60 and 75 mm needles to R L3-5 paraspinals in clock technique with placement of needles plus TENS; Also (2) 75 mm needles to L gluteals max/med with placement of needle plus TENS Skilled Intervention: Manual skills to improve joint mobility, ROM, and decrease pain. Utilized anatomy knowledge of the therapist, and assessment of patient's response to intervention. Modalities: Body Region Treated - E-Stim Attended/TENS: Lumbar paraspinals L3-5, and glute med Patient Position: L side lying Current: 10 Hz Channels: 1-2, 3 Intensity: Ch 1-2: 3.0 V; Ch 3: 3.0 V Minutes: 10 Skilled Intervention: Proper administration and selection of modality based on clinical presentation, deficits, and needs. Patient response monitored throughout treatment. Billing Manual TherapyTreatment Minutes: 29 E- Stim Attended/TENS Treatment Minutes: 10 Skilled Treatment Time Minutes (timed and untimed codes): 39 Total Session Time (minutes): 39 Session Start Time : 915 Session Stop Time : 954 Karmen Amador PT documented in this encounterDiley Ridge [facility] Center02-12-2025 Telephone encounter Note * Telephone Encounter - Angie Aguirre APRN.CNP - 10/03/2024 5:15 PM EST Script sent. Angie Aguirre APRN.CNP [facility]02-12-2025 Miscellaneous Notes* Telephone Encounter - Angie Aguirre APRN.CNP - 10/03/2024 5:15 PM EST Script sent. Angie Aguirre APRN.CNP * Telephone Encounter - Zheng Tse LPN - 10/03/2024 3:59 PM EST Prescription Refill Information The patient has been identified by name and date of : Yes Caregiver verified no other encounters exist for this prescription request: Yes Caregiver confirmed with patient/requestor that no other refills are due, in the near future, with this provider at this time: Yes The last office visit in the department: 08/08/24 Does the patient have a future office visit with this provider/department: No Requested Prescriptions Pending Prescriptions Disp Refills losartan (COZAAR) 50 mg tablet 145 tablet 1 Sig: TAKE 1 & 1/2 (ONE & ONE-HALF) TABLETS BY MOUTH ONCE DAILY Zheng Tse LPN October 03, 2024 3:59 PM documented in this encounterDiley [facility] Center02-12-2025 Telephone encounter Note * Telephone Encounter - Zheng Tse LPN - 10/03/2024 3:59 PM EST Prescription Refill Information The patient has been identified by name and date of : Yes Caregiver verified no other encounters exist for this prescription request: Yes Caregiver confirmed with patient/requestor that no other refills are due, in the near future, with this provider at this time: Yes The last office visit in the department: 08/08/24 Does the patient have a future office visit with this provider/department: No Requested Prescriptions Pending Prescriptions Disp Refills losartan (COZAAR) 50 mg tablet 145 tablet 1 Sig: TAKE 1 & 1/2 (ONE & ONE-HALF) TABLETS BY MOUTH ONCE DAILY Zheng Tse LPN October 03, 2024 3:59 PM [facility]02-10-2025 NoteOhiohealth [facility]02-10-2025 History of Present illness Narrative* Quita Barth, BIOINFORMATICS SOFTWARE ENGINEER.WEIGHT ANALYST - 10/01/2024 11:26 AM EST VIRTUAL VISIT PROGRESS NOTE This is a virtual visit using [employer] Video Visit. It required patient- provider interaction for the medical decision making as documented below. I have communicated my name and active licensure. The patient's identity and physical location wereverified at the time of this visit. Either the patient or their legal field representative/health education has been informed of the risks and benefits of -- and alternatives to -- treatment through a remote evaluation andconsents to proceed with the evaluation remotely. Chiara Croft is a 79 year old female seen for follow up. HISTORY REVIEWED (electronic chart updated): PAST MEDICAL HISTORY Diagnosis Date Abdominal pain Arthritis Asthma Degenerative disc disease Depression Disorder of bone and cartilage, unspecified History of transfusion HTN (hypertension) Hypothyroid Intrinsic asthma Mixed hyperlipidemia Hyperlipidemia Osteoarthrosis, unspecified whether generalized or localized, other specified sites Pain medication agreement 04/16/2024 vicodin refilled sparingly from PCP. PMH - PAST MEDICAL HISTORY OF CVA with weakness left side PMH - PAST MEDICAL HISTORY OF 2000 left cervical radiculopathy PMH - PAST MEDICAL HISTORY OF 2003 right rib fracture PMH - PAST MEDICAL HISTORY OF 2005 right shoulder impingement syndrome Spinal stenosis Stroke (HCC) 2005 Unspecified hypothyroidism PAST SURGICAL HISTORY Procedure Laterality Date APPENDECTOMY 1959 APPENDECTOMY HX BACK SURGERY HX 2016 L3-5 Decompression and Fusion CATARACT EXTRACTION HX Bilateral COLONOSCOPY N/A 09/15/2016 MAC EGD W/O [facility] SPEC VARICIES INJ 09/17/2016 EGD W/O [facility] SPEC VARICIES INJ 11/15/2022 EPIDURAL SITE SPECIFY lumbar spine EYE SURGERY HX PAST SURGICAL HISTORY OF 1976 thyroidectomy for toxic goiter SKIN BIOPSY HX TONSILLECTOMY HX TONSILLECTOMY PRIMARY/SECONDARY <AGE 12 Tonsillectomy FAMILY HISTORY Problem Relation Age of Onset Cerebral Embolism Mother Osteoporosis Mother other (spinal stenosis) Mother other (depression) Mother other (cva) Mother other (depression) Father other (tramatic brain syndrome) Father s/p MVA other (aplastic thyroid tumor) Sister Depression Brother in a nurs home. Stroke Maternal Grandfather Colon Cancer No Family History Social History Tobacco Use Smoking status: Former Current packs/day: 0.50 Average packs/day: 0.5 packs/day for 8.0 years (4.0 ttl pk-yrs) Types: Cigarettes Smokeless tobacco: Never Tobacco comments: quit in 1970 Vaping Use Vaping status: Never Used Substance Use Topics Alcohol use: Yes Comment: 1-2 times per week Drug use: No Current Outpatient Medications Medication Sig [START ON 10/31/2024] HYDROcodone-acetaminophen (NORCO) 5-325 mg per tablet Take 1 tablet by mouth once daily as needed for pain for up to 30 days. Patient should start on October 31, 2024. gabapentin (NEURONTIN) 300 mg capsule Take 1 capsule by mouth daily at bedtime for 30 days. albuterol HFA (VENTOLIN HFA) 90 mcg/actuation inhaler Inhale 2 Puffs as instructed every 4 hours asneeded for wheezing/shortness of breath. losartan (COZAAR) 50 mg tablet TAKE 1 & 1/2 (ONE & ONE-HALF) TABLETS BY MOUTH ONCE DAILY rosuvastatin (CRESTOR) 5 mg tablet Take 1 tablet by mouth once daily. levothyroxine (LEVOXYL) 88 mcg tablet Take 1 tablet by mouth once daily. Take on empty stomach. ForThyroid clopidogrel (PLAVIX) 75 mg tablet Take 1 tablet by mouth once daily. [facility] ID: [id number] [email or web address] guaifenesin/phenylephrine HCl (MUCINEX COLD ORAL) Take by mouth. lidocaine (SALONPAS) 4 % patch Apply as directed once daily. acetaminophen (TYLENOL) 500 mg tablet Take 500 mg by mouth every 8 hours as needed. No current facility-administered medications for this visit. ALLERGIES Allergen Reactions Cymbalta [Duloxetin* Other: See Comments Tremor Fosamax [Alendronat* Intolerance Reflux Septra [Sulfamethox* Hives swelling and SOB Sulfamethoxazole Hives Tramadol Other: See Comments Tremor Trimethoprim Hives Bupropion Other: See Comments REVIEW OF SYSTEMS: GENERAL: right buttock pain PHYSICAL EXAMINATION: VIDEO EXAM: (if completed, performed via video enabled technology) GENERAL: alert and appropriate, in no distress ASSESSMENT: (M79.18) Myofascial pain syndrome of lumbar spine (primary encounter diagnosis) (M54.16) Radiculopathy, lumbar region (M47.816) Lumbar facet arthropathy (M47.816) Lumbar spondylosis (Z98.1) History of lumbar spinal fusion Patient presents for a zoom follow up She reports chronic right buttock pain that radiates into the right hip, denies leg pain She uses heat and tries to stretch but not much benefit She reports dry needling helps She started a walking program Pain 4-5/10 She would like to wean off the gabapentin 300 mg. She has foggy brain when taking. Directions provided She takes norco once daily prn to help manage her chronic pain PLAN: The following approved medication requests have been transmitted electronically. Requested Prescriptions Signed Prescriptions Disp Refills HYDROcodone-acetaminophen (NORCO) 5-325 mg per tablet 30 tablet 0 Sig: Take 1 tablet by mouth once daily as needed for pain for up to 30 days. Patient should start on October 31, 2024. 2. Direction provided on how to wean off gabapentin 3. Follow up in 2 months There are no Patient Instructions on file for this visit. I spent a total of 20 minutes on the date of the service which included preparing to see the patient, [id number] patient care, completing clinical documentation, and ordering medications, tests, orprocedures Quita aBrth APRN.WEIGHT ANALYST documented in this encounterDiley [facility] Center01-23-2025 NoteOhiohealth Van [facility]01-23-2025 History of Present illness Narrative* Karmen Amador, PT - 09/13/2024 11:33 AM EST Images from the original note were not included. Episode Visit Count: 20 Therapist That Will Accept/Oversee The Plan Of Care: Karmen Amador Start of Care Date: 12/06/23 Onset Date: 11/21/23 Plan of Care Certification Date: 06/25/24 Next Certification Due Date: 09/25/24 REHABILITATION AND SPORTS THERAPY PHYSICAL THERAPY PROGRESS REPORT PLAN OF CARE UPDATE: Assessment: Chiara Croft demonstrates improvements in standing, walking, cleaning, and cooking. The patient has been able to self manage symptom 3-4 weeks at a time between sessions. Patient continues to present with impairments in ADL's, overall function, range of motion, strength, and symptom management that interfere with standing, walking, heavy exertion, lifting . Current prognosis is Good due to: current objective clinical presentation, good overall health status, positive past response to therapy, within-session changes, good support system/ coping skills . The patient will benefit from continued skilled therapy services to meet the updated goals for this plan of care as noted below. Goals updated on 09/11/2024. Goals for Episode of Care: created on 06/25/24 through 09/25/24 Independent in home exercises. Met Patient will decrease pain rating by 2 points to meet minimal clinical important difference for numeric pain rating scale. Partially met Restore pain-free lumbar ROM to WNL to allow for pain free functional ADLs Stand / Walk community distances without pain/symptoms. Progressing Sleep through night without pain/symptoms. Progressing Sit 45 minutes minutes without pain/symptoms to allow for comfortable sitting arrangements and improved overall QoL. Progressing Maintain proper sitting posture throughout session. Met Patient will increase strength of hip flexion, aBd, knee extension to 4+/5 to allow for improve ability to complete ADLs. Progressing Patient Goals: Reduce pain and be able to complete functional ADLs w/o pain Time Frame for Goals and Treatment : 12/10/24 Planned Interventions, Frequency, and Duration: 1x/month, 12 weeks Total Number of Visits Planned: 3 Patient to be seen for Therapeutic exercise (01402), Neuromuscular re-education (59137), Manual therapy (18997), Therapeutic activities (77482), Self-shelter management (21499), Patient/Family/Caregiver Education, Body Mechanics Training PLAN FOR NEXT VISIT: Continue manual techniques for symptom modulation and functional activity tolerance SUBJECTIVE: Patient had 3+ good weeks before pain started to ramp up this time. X-rays came back clean with no evidence of a fx after her fall. Functional Limitations: standing, walking, heavy exertion, lifting Pain: Pain Pain Level: 5 Pain Location: Buttocks - Right, Low Back/Lumbar Spine - Right Description: Sore Frequency: Continuous PROMIS Scales 08/21/2024 07/20/2024 06/24/2024 Higher is Better Phys Func - T Score 35 (moderate dysfunction) 36 (moderate dysfunction) 33 (moderate dysfunction) Phys Func - Percentile 7 8 4 Self-Eff Symptom - T Score 46 (Average) 41 (Average) Self-Eff Symptom - Percentile 34 18 08/21/2024 05/15/2024 03/08/2024 Lower is Better Pain Interference - T Score 66 (moderate) 64 (moderate) 67 (moderate) Pain Interference - Percentile 5 8 4 T-scores: mean of general population = 50. 5 points is clinically meaningfully difference Percentiles provide an indication of how the patient's score ranks in relation to the general population. Higher percentile rankings indicate better function/quality of life. 50th percentile is the average of the general population and indicates half of respondents had a worse score. OBJECTIVE MEASURES WITH LEVEL OF FUNCTION: Spine Observations R Lumbar Spine Palpation Tenderness: Gluteals L Lumbar Spine Palpation Tenderness: Paraspinals, Spinous process LE Strength Trunk Strength: 4/5 R LE Strength: 4/5 L LE Strength: 4/5 Special Tests - Hip and Spine SLR Test: Right Positive TREATMENT: Manual Therapy: 1: STM and TrPr to R QL and glute med with push to tolerance 2: Objective measures obtained Dry Needling: (2) 50 and 60 mm needles to R lumbar paraspinals in clock technique, and (2) 75 mm needles to R glute med with placement of all needles only plus TENS per parameters below Skilled Intervention: Manual skills to improve joint mobility, ROM, and decrease pain. Utilized anatomy knowledge of the therapist, and assessment of patient's response to intervention. Modalities: Body Region Treated - E-Stim Attended/TENS: Lumbar paraspinals L4-5, and glute med Patient Position: L side lying Current: 10 Hz Channels: 1-2, 3 Intensity: Ch 1-2: 3.5 V; Ch 3: 3.5 V Minutes: 10 Skilled Intervention: Proper administration and selection of modality based on clinical presentation, deficits, and needs. Patient response monitored throughout treatment. Billing Manual TherapyTreatment Minutes: 33 E- Stim Attended/TENS Treatment Minutes: 10 Skilled Treatment Time Minutes (timed and untimed codes): 43 Total Session Time (minutes): 43 Session Start Time : 1630 Session Stop Time : 1713 Karmen Amador PT documented in this encounterD[facility]01-23-2025 NoteOhio[facility] History of Present illness Narrative* Valentine Munoz LPN - 09/13/2024 9:40 AM EST Patient presents for Prolia injection. Denies any problems at this time. Patient instructed on any SE of medication, verbalized understanding and agreed to proceed with treatment. Tolerated injectionwell. Valentine Munoz LPN documented in this encounterDiley [facility] Center12-31-2024 History of Present illness Narrative* Quita Barth, BIOINFORMATICS SOFTWARE ENGINEER.WEIGHT ANALYST - 08/21/2024 10:30 AM EST Images from the original note were not included. Subjective Chiara Croft presents to [facility] for a follow up appointment. Since the last visit, Chiara PuriEnriqueta states the pain has been worse within the last month due to afall prior to Thanksgiving. Current pain intensity is 5 on a scale of 0-10. Pain located in the lower back. Pain described as aching, dull, sharp, spasm, soreness, and tightness Symptoms interfere with physical activity, walking, bathing, cooking, and household cleaning. Pain is exacerbated by unable to pinpoint exacerbating factors/positions. Pain is mitigated by medication, reposition, distractions, heat, massage, and pillow support. The medications are effective. The patient states the last dose of [place] was taken Tuesday, Gabapentin was taken last night, and Robaxin was taken this morning. Patient Entered Questionnaires PROMIS Score Percentiles 12/05/2023 03/03/2024 06/24/2024 PROMIS Global Health Scale Physical Health Percentile 10 22* 31 Mental Health Percentile 43 43 73 06/24/2024 07/20/2024 08/21/2024 Physical Health Physical Function Percentile 4 8 7 Pain Interference Percentile 5 Percentiles provide an indication of how the patient's score ranks in relation to the general population. Higher percentile rankings indicate better function/quality of life. 50th percentile is the average of the general population and indicates half of respondents had a worse score. > 31st percentile is within normal limits or better * < 31st percentile is at least SD worse than population, which may be clinically relevant < 16th percentile is at least 1 SD worse than population and warrants attention Review of Systems Constitutional: (-) Weight Gain (-) Weight Loss (-) Fatigue Cardiovascular: (-) hx heart surgery (-) Pacemaker Respiratory: (-) Shortness of Breath (-) Cough (+) Snoring Gastrointestinal: (-) Incontinence (-) Diarrhea (-) Constipation (-) Nausea/Vomiting Endocrine: (+) Thyroid Disorder (-) Diabetes Hematologic: (+) Prolonged Bleeding (+) Easy Bruising Genitourinary: (-) Incontinence (-) Frequency (-) Urinary Urgency Skin: (-) Open sores/wound Neurologic: (-) Headache (-) Double Vision Psychiatric: (-) Depression (-) Anxiety (-) Personal History of Alcohol or Substance Abuse (-) Family History of Alcohol or Substance Abuse Chief Complaint Patient presents with: Refill Request Back Pain Physical Examination Pulse 73 Wt 141 lb 5 oz (64.1kg) SpO2 99% General:well appearing and alert Skin: Skin color, texture, turgor normal, no rashes or lesions HEENT: normal Cardiovascular: Regular, rate and rhythm Lungs: Normal respiratory rate and rhythm, unlabored on room air Musculoskeletal: Back: Tenderness on palpation over the lumbar spine. , Tenderness over the bilateral lumbar facets,Tenderness over the bilateral lumbar paraspinal muscles, pos facet loading Extremities: Normal exam of the extremities Neurological: Mental Status: alert Motor Strength: Motor strength and tone are 5/5 all throughout. Sensory: Not Examined Gait: Antalgic. The patient uses an assistive device - walker. Trigger points: lumbosacral spine muscles. Assessment Assessment : Patient presents for a follow up. She is accompanied with her Patient has chronic low back pain with aching in the upper legs She reports a fall before . She got caught up in a blanket on the bed, causing pain to the right paraspinals, right hip, into the groin and upper leg. She experienced muscle spasms, increased her robaxin and reports the pain is better She uses lidocaine patches and purchased a new TENS unit that is wireless from [employer] She is doing PT Sh takes norco and gabapentin to help manage her chronic pain Encounter Diagnosis ICD-10-CM 1. Myofascial pain syndrome of lumbar spine M79.18 2. Radiculopathy, lumbar region M54.16 HYDROcodone-acetaminophen (NORCO) 5-325 mg per tablet gabapentin (NEURONTIN) 300 mg capsule HYDROcodone-acetaminophen (NORCO) 5-325 mg per tablet 3. Lumbar facet arthropathy M47.816 HYDROcodone-acetaminophen (NORCO) 5-325 mg per tablet HYDROcodone-acetaminophen (NORCO) 5-325 mg per tablet 4. Lumbar spondylosis M47.816 HYDROcodone-acetaminophen (NORCO) 5-325 mg per tablet HYDROcodone-acetaminophen (NORCO) 5-325 mg per tablet 5. History of lumbar spinal fusion Z98.1 6. Postlaminectomy syndrome M96.1 08/21/2024 PROMIS CAT Pain Interference PROMIS Pain Interference T-Score (range: 10 - 90) 66 (moderate) PROMIS Pain Interference Percentile 5 Descriptive Summary for PROMIS Physical Function T-score = 35 (Percentile 7) Much difficulty - Carry a laundry basket up a flight of stairs. Some difficulty - Walk at a normal speed. Unable - Walk more than a mile (1.6 km). OARRS Report: Reviewed: The patient's OARRS report was reviewed and is consistent with the reportedmedication use. Urine Panel: Lab Results Component Value Date Cannabinoid Quant, Urine <16 01/02/2024 Benzoylecgonine Quant, Urine <24 01/02/2024 6-Acetylmorphine Quant, Urine <5 01/02/2024 Amphetamine Quant, Urine <5 01/02/2024 Methamphetamine Quant, Urine <8 01/02/2024 Buprenorphine Quant, Urine <20 01/02/2024 Norbuprenorphine Quant, Urine <20 01/02/2024 Methadone Quant, Urine <16 01/02/2024 EDDP Quant, Urine <6 01/02/2024 Tramadol Quant, Urine <25 01/02/2024 Desmethyltramadol Quant, Urine <20 01/02/2024 Fentanyl Quant, Urine <6 01/02/2024 Norfentanyl Quant, Urine <6 01/02/2024 Codeine Quant, Urine <11 01/02/2024 Morphine Quant, Urine <10 01/02/2024 Dihydrocodeine Quant, Urine <5 01/02/2024 Hydrocodone Quant, Urine <8 01/02/2024 Oxycodone Quant, Urine <10 01/02/2024 Hydromorphone Quant, Urine <5 01/02/2024 Oxymorphone Quant, Urine <5 01/02/2024 The pain panel was Reviewed - No inconsistencies noted. Plan Injection history was reviewed. Medication use and compliance were reviewed. 1. Continue medication management through the Pain Management Center 2. The following approved medication requests have been transmitted electronically. Requested Prescriptions Signed Prescriptions Disp Refills HYDROcodone-acetaminophen (NORCO) 5-325 mg per tablet 30 tablet 0 Sig: Take 1 tablet by mouth once daily as needed for pain for up to 30 days. Patient should start on August 26, 2024. gabapentin (NEURONTIN) 300 mg capsule 30 capsule 2 Sig: Take 1 capsule by mouth daily at bedtime for 30 days. HYDROcodone-acetaminophen (NORCO) 5-325 mg per tablet 30 tablet 0 Sig: Take 1 tablet by mouth once daily as needed for pain for up to 30 days. Patient should start on September 25, 2024. 3. Opioid contract signed today 4. Continue regular home exercise program. 5) F/U in 2 months The level of medical decision making for this encounter was low level. I spent a total of 25 minutes on the date of the service which included preparing to see the patient, [id number] patient care, completing clinical documentation, performing a medically appropriate examination, and ordering medications, tests, or procedures. 1. This document has been created with the use of voice recognition technology. It may contain inaccuracies: (e.g. misspellings, inaccurate syntax or word sense) that have escaped review. 2. The physician, nursing staff and medical assistants are a major part of YOUR TREATMENT TEAM and will be handling your phone calls and inquiries, if any. Unless explicitly told otherwise at the time of your office visit, your study results and ensuing treatment plans will be discussed during yourfollow-up appointment. If you do not have a follow-up appointment and wish to discuss any issues, please set up an appointment. 3. It is my practice to not fill disability or any other insurance-related forms/documentation. Allof the office notes, study results, and other pertinent documentation generated as part of your evaluation will be available to you and to your Primary Care Physician (PCP). Use of this material to complete such forms will be at the discretion of your PCP/referring physician. The above plan and management options were discussed at length with patient. Patient is in agreement with the above and verbalized understanding. Quita Barth APRN, SAURABH August 21, 2024 documented in this encounterDiley [facility] Center12-31-2024 NoteOhiohealth Van W[facility]12-23-2024 Telephone encounter Note* Telephone Encounter - Zheng Tse LPN - 08/13/2024 12:16 PM EST Pt notified. Zheng Tse LPN [facility]12-23-2024 Miscellaneous Notes* Telephone Encounter - Zheng Tse LPN - 08/13/2024 12:16 PM EST Pt notified. Zheng Tse LPN * Telephone Encounter - Angie Aguirre APRN.SAURABH - 08/13/2024 9:51 AM EST Xray order placed. * Telephone Encounter - Angie Aguirre APRN.CNP - 08/13/2024 9:49 AM EST ----- Message from Karmen Amador PT sent at 08/13/2024 9:41 AM EST ----- Regarding: Patient update Pedro Angie, I hope you and your family are doing well, Gloria Harris to you all! I'm sure you're psyched about [address] too! I am with Chiara right now and she just disclosed to me the fact she fell prior to our last appt. She is still in a good deal of pain with muscle spasms. After examining her today I do have a heightened worry that there is a potential risk for a fracture in the back. I don't have her lumbar numbers,but her hips were in the osteopenia range last Apr, so I imagine her back is in a similar range. Al so, when I performed a SLR test on her, she was positive at less than 30 degrees and her thigh and back muscles all went into spasm. At worst, there's def an increased risk for lumbar fracture, at best things are just really flared up and it's a pissed off nerve. But, as long as you agree, I think it would be worth imaging her lumbar spine to make sure nothing happened there. Let me know if you want to discuss further! Karmen documented in this encounterDiley Ridge Medical Center12-23-2024 NoteOhiohealth Van Wert [facility]12-23-2024 History of Present illness Narrative* Karmen Amador, PT - 08/13/2024 10:43 AM EST Episode Visit Count: 19 Therapist That Will Accept/Oversee The Plan Of Care: Karmen Amador Start of Care Date: 12/06/23 Onset Date: 11/21/23 Plan of Care Certification Date: 06/25/24 Next Certification Due Date: 09/25/24 [facility] THERAPY PHYSICAL THERAPY TREATMENT NOTE ASSESSMENT: Chiara Croft tolerated the session with decreased symptoms and no issues. She demonstrated difficulty with new back pain and muscle spasms associated with a recent fall. PCP was messaged with concerns for increased risk of fracture. The patient will continue to benefit from ongoing skilled physical therapy to progress toward set goals. Current Frequency: (1x every 3 weeks) Duration: 12 weeks Total Number of Visits Planned: 4 Planned Treatment Interventions: Therapeutic exercise (60374), Neuromuscular re- education (68169), Manual therapy (75972), Therapeutic activities (41217), Self- shelter management (40017), Patient/Family/Caregiver Education, Body Mechanics Training PLAN FOR NEXT VISIT: Assess imaging to rule out fracture. Manual as needed for symptom modulation SUBJECTIVE: Patient just now disclosing to me that she had a fall prior to our last appt. She notesshe initially felt ok, but now she is having back spasms and referred pain wrapping into the groin and upper thigh. Cannot lay on the right side. left side hurts but not as badly. Does not seem like Pain: Pain Pain Level: 6 Pain Location: Buttocks - Right, Low Back/Lumbar Spine - Right Description: Sore Frequency: Continuous OBJECTIVE MEASURES WITH LEVEL OF FUNCTION: Spine Observations R Lumbar Spine Palpation Tenderness: Gluteals L Lumbar Spine Palpation Tenderness: Paraspinals, Spinous process Special Tests - Hip and Spine SLR Test: Right Positive (Positive for SLR below 30 degrees) TREATMENT: Manual Therapy: 1: STM and TrPr to R QL and glute med with push to tolerance 2: Objective measures obtained Dry Needling: (2) 50 and 60 mm needles to R lumbar paraspinals in clock technique, and (2) 75 mm needles to R glute med with placement of all needles only plus TENS per parameters below Skilled Intervention: Manual skills to improve joint mobility, ROM, and decrease pain. Utilized anatomy knowledge of the therapist, and assessment of patient's response to intervention. Self-Long Term Management: 1: Discussed objective findings mixed with subjective report by patient, her history of osteopenia that there is an increased risk for fracture and I would be messaging her PCP to see if they would be agreeable to imaging. Skilled Intervention: Skilled judgment in the selection of proper modification for activity of daily living/home management based on clinical presentation, deficits, and needs. Reviewed patient specific diagnosis in relation to activities of daily living/home management. Activity progression based on professional judgement. Modalities: Body Region Treated - E-Stim Attended/TENS: Lumbar paraspinals L4-5, and glute med Patient Position: L side lying Current: 10 Hz Channels: 1-2, 3 Intensity: Ch 1-2: 4.0 V; Ch 3: 3.0 V Minutes: 10 Skilled Intervention: Proper administration and selection of modality based on clinical presentation, deficits, and needs. Patient response monitored throughout treatment. Billing Manual TherapyTreatment Minutes: 20 Self-Care/Home Management Treatment Minutes: 14 E- Stim Attended/TENS Treatment Minutes: 10 Skilled Treatment Time Minutes (timed and untimed codes): 44 Total Session Time (minutes): 44 Session Start Time : 900 Session Stop Time : 944 Karmen Amador PT documented in this encounterDiley Ridge Medical Center12-23-2024 History of Present illness Narrative* Josue Koehler RT(R) - 08/13/2024 10:40 AM EST Radiology Service Progress Note PATIENT NAME: Chiara Croft DATE OF SERVICE: August 13, 2024 TIME: 10:53 AM PATIENT IDENTITY VERIFICATION COMPLETED USING TWO (2) IDENTIFIERS: Name and Date of confirmedby patient verbally. FALL SCREENING: Has the patient had 2 falls in the last year or 1 fall with injury or currently using an Ambulatory Assistive Device (Walker, Cane, Wheelchair, Crutches, etc.)? No PATIENT GENDER DATA: Female. status: : No status: NO. PATIENT RELEVANT IMPLANT DATA REVIEWED: Not Applicable PATIENT PRESENTS WITH AN IMPLANTABLE OR ATTACHED BULL RIVETER: No RADIOLOGY DEPARTMENT: General X-ray: Exam(s) Completed: Spine X-Ray(s): Lumbar AP / LAT / L5-S1 PERIPHERAL IV DATA: Not applicable SIGNED BY: RT Lima(R) August 13, 2024 10:53 AM documented in this encounterDiley Ridge Medical Center12-23-2024 NoteOhiohealth Van [facility]12-23-2024 Telephone encounter Note* Telephone Encounter - Angie Aguirre APRN.CNP - 08/13/2024 9:51 AM EST Xray order placed. [facility]12-23-20[facility] Telephone encounter Note* Telephone Encounter - Angie Aguirre APRN.CNP - 08/13/2024 9:49 AM EST ----- Message from Karmen Amador PT sent at 08/13/2024 9:41 AM EST ----- Regarding: Patient update Pedro Adams, I hope you and your family are doing well, Gloria Harris to you all! I'm sure you're psyched about [address] too! I am with Chiara right now and she just disclosed to me the fact she fell prior to our last appt. She is still in a good deal of pain with muscle spasms. After examining her today I do have a heightened worry that there is a potential risk for a fracture in the back. I don't have her lumbar numbers,but her hips were in the osteopenia range last Apr, so I imagine her back is in a similar range. Al so, when I performed a SLR test on her, she was positive at less than 30 degrees and her thigh and back muscles all went into spasm. At worst, there's def an increased risk for lumbar fracture, at best things are just really flared up and it's a pissed off nerve. But, as long as you agree, I think it would be worth imaging her lumbar spine to make sure nothing happened there. Let me know if you want to discuss further! Karmen [facility]12-19-2024 Telephone encounter Note* Telephone Encounter - Rosemary Toney RN - 08/09/2024 1:44 PM EST Called and left a detailed voicemail notifying patient of providers message. Clinic phone number was left in case patient had any questions. Rosemary Toney RN [facility]12-19-2024 Miscellaneous Notes* Telephone Encounter - Rosemary Toney RN - 08/09/2024 1:44 PM EST Called and left a detailed voicemail notifying patient of providers message. Clinic phone number was left in case patient had any questions. Rosemary Toney RN * Telephone Encounter - Joanne Amado PA-C - 08/09/2024 1:27 PM EST Vit D level is normal range. Joanne Amado PA-C documented in this encounterDiley Ridge Medical Center12-19-2024 Telephone encounter Note * Telephone Encounter - Joanne Amado PA-C - 08/09/2024 1:27 PM EST Vit D level is normal range. Joanne Amado PA-C [facility] Work Phone: [phone] Instructions* Patient Instructions* Angie Aguirre APRN.WEIGHT ANALYST - 08/08/2024 4:18 PM EST Get the vitamin d checked. Start the prednisone. The prednisone taper will be 4 tablets for 3 days; 3 tablets for 3 days; 2 tablets for 3 days; then1 tablet for 3 days. Please do no use other anti-inflammatories (like ibuprofen, aleve, naproxen, etc) while you are on this medication. documented in this encounterDiley Ridge Medical Center12-18-2024 NoteOhiohealth Van [facility]12-18-2024 History of Present illness Narrative* Angie Aguirre APRN.SAURABH - 08/08/2024 3:49 PM EST This is a 79 year old female who presents today with: Patient presents with: Acute Visit: R flank pain x couple weeks HISTORY OF PRESENT ILLNESS: Chiara Croft is a 79 year old female. Patient presents with: Acute Visit: R flank pain x couple weeks Pt presents today with complaint of Fell a couple of days before thanksgiving on right hip. No problems until the following week, when she started having muscle spasms in the back. Fall was mechanical. No head injury. No LOC. Refers that she was having lot of pain. Was in bed for 2-3 days. Muscle spasms are a improved. Always rinaldi pain int he lower back. She is also having pain in the right flank area. Not moving well. Uncomfortable. Activity makes it worse. She did reach out to pain management and doubled her muscle relaxer. Muscle relaxer helped the spasms. She is back down to her previous dose now. Limits vicodin. Last took one yesterday. Taking tylenol, but doesn't really do much. Did take a couple of ibuprofen, which did help, but cannot take much d/t the plavix. Using heat/ice. No urinary symptoms. PAST MEDICAL HISTORY: PAST MEDICAL HISTORY Diagnosis Date Abdominal pain Arthritis Asthma Degenerative disc disease Depression Disorder of bone and cartilage, unspecified History of transfusion HTN (hypertension) Hypothyroid Intrinsic asthma Mixed hyperlipidemia Hyperlipidemia Osteoarthrosis, unspecified whether generalized or localized, other specified sites Pain medication agreement 04/16/2024 vicodin refilled sparingly from PCP. PMH - PAST MEDICAL HISTORY OF CVA with weakness left side PMH - PAST MEDICAL HISTORY OF 2000 left cervical radiculopathy PMH - PAST MEDICAL HISTORY OF 2003 right rib fracture PMH - PAST MEDICAL HISTORY OF 2005 right shoulder impingement syndrome Spinal stenosis Stroke (HCC) 2005 Unspecified hypothyroidism PAST SURGICAL HISTORY Procedure Laterality Date APPENDECTOMY 1960 APPENDECTOMY HX BACK SURGERY HX 2016 L3-5 Decompression and Fusion CATARACT EXTRACTION HX Bilateral COLONOSCOPY N/A 09/15/2016 [facility] [place]/O [facility] SPEC VARICIES INJ 09/17/2016 EGD W/O [facility] SPEC VARICIES INJ 11/15/2022 EPID[facility] SITE SPECIFY lumbar spine EYE SURGERY HX PAST SURGICAL HISTORY OF 1976 thyroidectomy for toxic goiter SKIN BIOPSY HX TONSILLECTOMY HX TONSILLECTOMY PRIMARY/SECONDARY <AGE 12 Tonsillectomy ALLERGIES Cymbalta [Duloxetine], Fosamax [Alendronate Sodium], Septra [Sulfamethoxazole-Trimethoprim], Sulfamethoxazole, Tramadol, Trimethoprim, and Bupropion MEDICATIONS Current Outpatient Medications Medication Sig albuterol HFA (VENTOLIN HFA) 90 mcg/actuation inhaler Inhale 2 Puffs as instructed every 4 hours asneeded for wheezing/shortness of breath. losartan (COZAAR) 50 mg tablet TAKE 1 & 1/2 (ONE & ONE-HALF) TABLETS BY MOUTH ONCE DAILY gabapentin (NEURONTIN) 300 mg capsule Take 1 capsule by mouth daily at bedtime for 30 days. methocarbamol (ROBAXIN) 500 mg tablet Take 1 tablet by mouth two times a day as needed. HYDROcodone-acetaminophen (NORCO) 5-325 mg per tablet Take 1 tablet by mouth once daily as needed for pain for up to 30 days. Patient should start on July 26, 2024. rosuvastatin (CRESTOR) 5 mg tablet Take 1 tablet by mouth once daily. levothyroxine (LEVOXYL) 88 mcg tablet Take 1 tablet by mouth once daily. Take on empty stomach. ForThyroid clopidogrel (PLAVIX) 75 mg tablet Take 1 tablet by mouth once daily. [facility] ID: [id number] [email or web address] guaifenesin/phenylephrine HCl (MUCINEX COLD ORAL) Take by mouth. lidocaine (SALONPAS) 4 % patch Apply as directed once daily. acetaminophen (TYLENOL) 500 mg tablet Take 500 mg by mouth every 8 hours as needed. Current Facility-Administered Medications Medication Dose Route Frequency denosumab 60 mg injection (PROLIA) 60 mg SUBCUTANEOUS Q 6 MONTH FAMILY HISTORY Problem Relation Age of Onset Cerebral Embolism Mother Osteoporosis Mother other (spinal stenosis) Mother other (depression) Mother other (cva) Mother other (depression) Father other (tramatic brain syndrome) Father s/p MVA other (aplastic thyroid tumor) Sister Depression Brother in a [facility] home. Stroke Maternal Grandfather Colon Cancer No Family History Social History Tobacco Use Smoking status: Former Current packs/day: 0.50 Average packs/day: 0.5 packs/day for 8.0 years (4.0 ttl pk-yrs) Types: Cigarettes Smokeless tobacco: Never Tobacco comments: quit in 1969 Vaping Use Vaping status: Never Used Substance Use Topics Alcohol use: Yes Comment: 1-2 times per week Drug use: No EXAM: BP 124/82 Pulse 80 Resp 16 PHYSICAL EXAM: General Appearance: Well appearing, alert, in no acute distress, well-hydrated, well nourished.. Skin: Skin color, texture, turgor normal, no suspicious rashes or lesions. Head: Normocephalic, no masses, lesions, tenderness or abnormalities. Eyes: Anicteric sclera. Extraocular movements are intact. . Back:chronic back pain. + parathoracic and paralumbar discomfort on palpation. Neurologic: Gait w/ cane today. ASSESSMENT/PLAN: 1. Acute right-sided thoracic back pain - ICD9: 724.1, ICD10: M54.6 (primary diagnosis) Continue other medication. Will start prednisone. - PREDNISONE 10 MG TABLET The prednisone taper will be 4 tablets for 3 days; 3 tablets for 3 days; 2 tablets for 3 days; then1 tablet for 3 days. Please do no use other anti-inflammatories (like ibuprofen, aleve, naproxen, etc) while you are on this medication. 2. Primary hypertension - ICD9: 401.9, ICD10: I10 - Controlled - Continue current medications - Recommend home blood pressure monitoring, to bring results to next visit - Encouraged sodium restriction, DASH or Mediterranean diet - Recommend regular aerobic exercise 3. Vitamin D deficiency - ICD9: 268.9, ICD10: E55.9 Recheck: - VITAMIN D 25 HYDROXY Discussed treatment plan and patient voices understanding. Patient's questions answered appropriately. Medications and potential side effects were discussed and patient voices understanding. Return to the office as scheduled or as needed for worsening/no improvement. Angie Aguirre APRN.WEIGHT ANALYST documented in this encounterD[facility]12-[facility] Telephone encounter Note * Telephone Encounter - Samina Govea RN - 07/30/2024 10:57 AM EST NORMA: 06/26/2024 w/Quita Barth CNP PLAN: Continue medication management through the [facility] The following approved medication requests have been transmitted electronically: Neurontin, Klondike, Robaxin Interventional procedure options discussed. None Encouraged regular home exercise program. F/U in 2 months Current PM Meds: Neurontin, Klondike, Robaxin Current Meds OP: Tylenol Routing to provider for review. [facility]12-09-[facility] Miscellaneous Notes* Telephone Encounter - Samina Govea RN - 07/30/2024 10:57 AM EST NORMA: 06/26/2024 w/Quita Barth CNP PLAN: Continue medication management through the [facility] The following approved medication requests have been transmitted electronically: Neurontin, Klondike, Robaxin Interventional procedure options discussed. None Encouraged regular home exercise program. F/U in 2 months Current PM Meds: Neurontin, Klondike, Robaxin Current Meds OP: Tylenol Routing to provider for review. documented in this encounterDiley [facility]12-02-2024 NoteOhio[facility] History of Present illness Narrative* Karmen Amador, PT - 07/23/2024 4:32 PM EST Images from the original note were not included. Episode Visit Count: 18 Therapist That Will Accept/Oversee The Plan Of Care: Karmen Amador Start of Care Date: 12/06/23 Onset Date: 11/21/23 Plan of Care Certification Date: 06/25/24 Next Certification Due Date: 09/25/24 REHABILITATION AND SPORTS THERAPY PHYSICAL THERAPY PROGRESS REPORT PLAN OF CARE UPDATE: Assessment: Chiara Croft demonstrates moderate improvement in sitting, rising from a chair, standing, cleaning, and cooking. The patient has progressed toward goals. Patient continues to present with impairments in ADL's, overall function, range of motion, strength, symptom management, and tissue tendernessthat interfere with standing, walking, heavy exertion, lifting . Current prognosis is Good due to: current objective clinical presentation, good overall health status, positive past response to therapy, within-session changes, good support system/ coping skills . The patient will benefit from continued skilled therapy services to meet the updated goals for this plan of care as noted below. Goals updated on 07/23/2024. Goals for Episode of Care: created on 06/25/24 through 09/25/24 Independent in home exercises. Met Patient will decrease pain rating by 2 points to meet minimal clinical important difference for numeric pain rating scale. Partially met Restore pain-free lumbar ROM to WNL to allow for pain free functional ADLs Stand / Walk community distances without pain/symptoms. Progressing Sleep through night without pain/symptoms. Progressing Sit 45 minutes minutes without pain/symptoms to allow for comfortable sitting arrangements and improved overall QoL. Progressing Maintain proper sitting posture throughout session. Met Patient will increase strength of hip flexion, aBd, knee extension to 4+/5 to allow for improve ability to complete ADLs. Progressing Patient Goals: Reduce pain and be able to complete functional ADLs w/o pain Time Frame for Goals and Treatment : 09/25/23 Planned Interventions, Frequency, and Duration: 1x/month, 8 weeks Total Number of Visits Planned: 2 Patient to be seen for Therapeutic exercise (61322), Neuromuscular re-education (66381), Manual therapy (40370), Therapeutic activities (91362), Self-shelter management (55918), Patient/Family/Caregiver Education, Body Mechanics Training PLAN FOR NEXT VISIT: Manual for symptom modualtion, ease into exercises per symptom response SUBJECTIVE: Patient was doing really well for 3 weeks but hosting Thanksgiving seemed to flare her up. Notes that being on her feet for that period of time really got her. She took pain pills 3 days to help get her through, and things are bit more settled today. She feels like the buttocks pain is starting to centralize. Functional Limitations: standing, walking, heavy exertion, lifting Pain: Pain Pain Level: 4 Pain Location: Buttocks - Right Description: Sore Frequency: Continuous PROMIS Scales 07/20/2024 06/24/2024 04/25/2024 Higher is Better Phys Func - Score 36 (moderate dysfunction) 33 (moderate dysfunction) 37 (moderate dysfunction) Phys Func - Percentile 8 4 10 Self-Eff Symptom - Score 46 (Average) 41 (Average) 48 (Average) Self-Eff Symptom - Percentile 34 18 42 T-scores: mean of general population = 50. 5 points is clinically meaningfully difference Percentiles provide an indication of how the patient's score ranks in relation to the general population. Higher percentile rankings indicate better function/quality of life. 50th percentile is the average of the general population and indicates half of respondents had a worse score. OBJECTIVE MEASURES WITH LEVEL OF FUNCTION: Lumbar Spine AROM Lumbar Flexion: Normal Lumbar Extension: Minimal limitation Lumbar R Side-Bend: Normal Lumbar L Side-Bend: Normal Lumbar R Rotation: Normal Lumbar L Rotation: Normal LE Strength Trunk Strength: 4/6 R LE Strength: 4/5 L LE Strength: 4/5 TREATMENT: Manual Therapy: 1: STM and TrPr to R QL and glute med with push to tolerance 2: Objective measures obtained Dry Needling: (2) 50 and 60 mm needles to R lumbar paraspinals in clock technique, and (2) 75 mm needles to R glute med with placement of all needles only plus TENS per parameters below Skilled Intervention: Manual skills to improve joint mobility, ROM, and decrease pain. Utilized anatomy knowledge of the therapist, and assessment of patient's response to intervention. Modalities: Body Region Treated - E-Stim Attended/TENS: Lumbar paraspinals L4-5, and glute med Patient Position: L side lying Current: 10 Hz Channels: 1-2, 3 Intensity: Ch 1-2: 4.5 V; Ch 3: 3.0-3.5 V Minutes: 10 Skilled Intervention: Proper administration and selection of modality based on clinical presentation, deficits, and needs. Patient response monitored throughout treatment. Billing Manual TherapyTreatment Minutes: 32 E- Stim Attended/TENS Treatment Minutes: 10 Total Session Time (minutes): 42 Session Start Time : 817 Session Stop Time : 09 Karmen Amador PT documented in this encounterDiley [facility] Center12-02-2024 Telephone encounter Note * Telephone Encounter - Zheng Tse LPN - 07/23/2024 10:48 AM EST Prescription Refill Information The patient has been identified by name and date of : Yes Caregiver verified no other encounters exist for this prescription request: Yes Caregiver confirmed with patient/requestor that no other refills are due, in the near future, with this provider at this time: Yes The last office visit in the department: 07/17/24 Does the patient have a future office visit with this provider/department: No Requested Prescriptions Pending Prescriptions Disp Refills albuterol HFA (VENTOLIN HFA) 90 mcg/actuation inhaler Sig: Inhale 2 Puffs as instructed every 4 hours as needed for wheezing/shortness of breath. Zheng Tse LPN July 23, 2024 10:48 AM [facility]12-02-2024 Miscellaneous Notes* Telephone Encounter - Zheng Tse LPN - 07/23/2024 10:48 AM EST Prescription Refill Information The patient has been identified by name and date of : Yes Caregiver verified no other encounters exist for this prescription request: Yes Caregiver confirmed with patient/requestor that no other refills are due, in the near future, with this provider at this time: Yes The last office visit in the department: 07/17/24 Does the patient have a future office visit with this provider/department: No Requested Prescriptions Pending Prescriptions Disp Refills albuterol HFA (VENTOLIN HFA) 90 mcg/actuation inhaler Sig: Inhale 2 Puffs as instructed every 4 hours as needed for wheezing/shortness of breath. Zheng Tse LPN July 23, 2024 10:48 AM documented in this encounterDiley [facility] Center11-26-2024 Instructions* Patient Instructions* Angie Aguirre APRN.WEIGHT ANALYST - 07/17/2024 9:41 AM EST Screening schedule The following prevention plan is recommended: DTaP,Tdap,Td Vaccine(2 - Td or Tdap) due on 03/31/2019 WHAT YOU CAN DO TO PREVENT FALLS Many falls can be prevented. By making some changes, you can lower your chances of falling. Four things YOU can do to prevent falls for you* and your caregiver 1. Begin a regular exercise program Exercise is one of the most important ways to lower your chances of falling. It makes you stronger and helps you feel better. Exercises that improve balance and coordination (like Bubba Chi) are the most helpful. Lack of exercise leads to weakness and increases your chances of falling. Ask your doctor or health care provider about the best type of exercise program for you. 2. Have your health care provider review your medicines Have your doctor or pharmacist review all the medicines you take, even [id number] medicines. As you get older, the way medicines work in your body can change. Some medicines, or combinations of medicines, can make you sleepy or dizzy andcan cause you to fall. 3. Have your vision checked Have your eyes checked by an eye doctor at least once a year. You may be wearing the wrong glasses or have a condition like glaucoma or cataracts that limits your vision. Poor vision can increase your chances of falling. 4. Make your home safer About half of all falls happen at home. To make your home safer: Remove things you can trip over (like papers, books, clothes, and shoes) from stairs and places where you walk. Remove small throw rugs or use double-sided tape to keep the rugs from slipping. Keep items you use often in cabinets you can reach easily without using a step stool. Have grab bars put in next to your toilet and in the tub or shower. Use non-slip mats in the bathtub and on shower floors. Improve the lighting in your home. As you get older, you need brighter lights to see well. Hang light-weight curtains or shades to reduce glare. Have handrails and lights put in on all staircases. Wear shoes both inside and outside the house. Avoid going barefoot or wearing slippers. For more information, contact: Centers for Disease Control and Prevention www.cdc.gov/injury * This information may not apply if you have certain medical conditions. documented in this encounterDiley [facility] Center11-26-2024 NoteOhiohealth [facility]11-26-2024 History of Present illness Narrative* Angie Aguirre APRN.CNP - 07/17/2024 9:21 AM EST Images from the original note were not included. Chiara Croft is a 79 year old female here for a Medicare wellness visit. Medicare Health Risk Assessment General Health Very good Exercise: Minutes/Day 0 min Exercise: Days/Week 0 days Alcohol: Daily Use 2-4 times a month Alcohol: Drinks/Day 1 or 2 Alcohol: 6 or more drinks Never Feel off balance I could do better with balance. Feels exercise would help. Concerns: Teeth/Dentures no Concerns: Sexual function no Troubled by feelings no Frequency: Eating healthy diet yes ADLs requiring help no Safety precautions in home/vehicle Yes. Has large area rugs. No throw rugs. Smoke, vape, chews tobacco no Difficulty hearing Doesn't think so, but notices will miss parts of words. Difficulty seeing no Current Providers Specialists: I have reviewed specialist-related care of the patient in the medical record. Ophthalmology Pain management. ENT Dermatology. Count Team Clerk Medical/Family history review Reviewed and updated problem list, medical/surgical/family/social history, medications, and allergies. Opioid use review Opioid Medications (last 90 days) 05/22/2024 00:00 Opioid Medications hydrocodone/acetaminophen 1 tablet DAILY PRN ORAL Details Outpatient prescription Prescribed hydrocodone/acetaminophen (last 90 days) Does patient have risk factors for opioid abuse? No Pain overview Current pain concerns and treatment plan reviewed. Patient under the care of a specialist. Depression Screening PHQ-2 Score: 0 PHQ-9 Score: 0 Cognitive screening Cognitive screening reviewed and No further action needed (score 3-5). Functional Observation Was the patient's Timed Up & Go test unsteady or >= 12 seconds? No Advance Care Planning Surrogate decision maker and/or advance care plan documented Measurements BP 112/78 Pulse 88 Resp 16 Vision Screening: Follows with optometry/ophthalmology Assessment/Plan Medicare annual wellness visit, subsequent (Z00.00) - Counseled on healthy diet and regular exercise - Fall avoidance information provided - Personalized prevention plan provided Additional Concerns The following concerns were also discussed with the patient: Following with pain management for back. Still doing PT. Doing dry needling. Seen ENT. Vocal cords good. Thinks cough is d/t some reflux. Ordered omeprazole, but problem with insurance. They are mailing another, but unsure which one it is. PHYSICAL EXAM BP 112/78 Pulse 88 Resp 16 GENERAL: well appearing, alert, in no acute distress CARDIOVASCULAR: regular rate and rhythm. No murmur, rubs or gallops. PULMONARY: clear to auscultation, no wheezing, rhonchi, or crackles ABDOMEN: soft, non-tender, non-distended, no masses or organomegaly EXTREMITY: no lower extremity edema. No skin discoloration. ASSESSMENT/PLAN: 1. Lumbar radiculopathy - ICD9: 724.4, ICD10: M54.16 (primary diagnosis) Chronic low back pain Continue per pain management. 2. Chronic cough - ICD9: 786.2, ICD10: R05.3 Evaluated by ent. Feels to be reflux. Awaiting PPI. Discussed treatment plan and patient voices understanding. Patient's questions answered appropriately. Medications and potential side effects were discussed and patient voices understanding. Return to the office as scheduled or as needed for worsening/no improvement. Angie Aguirre APRN.SAURABH documented in this encounterDiley [facility] Center11-11-2024 Telephone encounter Note * Telephone Encounter - Shameka Mccarty APRN.CNP - 07/02/2024 2:09 PM EST The following approved medication requests have been transmitted electronically. Requested Prescriptions Pending Prescriptions Disp Refills losartan (COZAAR) 50 mg tablet 145 tablet 1 Sig: TAKE 1 & 1/2 (ONE & ONE-HALF) TABLETS BY MOUTH ONCE DAILY Shameka Mccarty APRN.CNP [facility]11-11-2024 Miscellaneous Notes* Telephone Encounter - Shameka Mccarty APRN.CNP - 07/02/2024 2:09 PM EST The following approved medication requests have been transmitted electronically. Requested Prescriptions Pending Prescriptions Disp Refills losartan (COZAAR) 50 mg tablet 145 tablet 1 Sig: TAKE 1 & 1/2 (ONE & ONE-HALF) TABLETS BY MOUTH ONCE DAILY Shameka Mccarty APRN.CNP * Telephone Encounter - Shayla Barlow MA - 07/02/2024 1:52 PM EST Prescription Refill Information The patient has been identified by name and date of : Yes Caregiver verified no other encounters exist for this prescription request: Yes Caregiver confirmed with patient/requestor that no other refills are due, in the near future, with this provider at this time: No The last office visit in the department: 04/16/24 Does the patient have a future office visit with this provider/department: Yes Requested Prescriptions Pending Prescriptions Disp Refills losartan (COZAAR) 50 mg tablet 145 tablet 1 Sig: TAKE 1 & 1/2 (ONE & ONE-HALF) TABLETS BY MOUTH ONCE DAILY Shayla Barlow MA July 02, 2024 1:52 PM ] documented in this encounterDiley [facility] Center11-11-2024 Telephone encounter Note * Telephone Encounter - Shayla Barlow MA - 07/02/2024 1:52 PM EST Prescription Refill Information The patient has been identified by name and date of : Yes Caregiver verified no other encounters exist for this prescription request: Yes Caregiver confirmed with patient/requestor that no other refills are due, in the near future, with this provider at this time: No The last office visit in the department: 04/16/24 Does the patient have a future office visit with this provider/department: Yes Requested Prescriptions Pending Prescriptions Disp Refills losartan (COZAAR) 50 mg tablet 145 tablet 1 Sig: TAKE 1 & 1/2 (ONE & ONE-HALF) TABLETS BY MOUTH ONCE DAILY Shayla Barlow MA July 02, 2024 1:52 PM ] [facility]11-05-2024 NoteOhiohealth [facility]11-05-2024 History of Present illness Narrative* Karmen Amador, PT - 06/26/2024 4:13 PM EST Images from the original note were not included. Episode Visit Count: 17 Therapist That Will Accept/Oversee The Plan Of Care: Karmen Perry Start of Care Date: 12/06/23 Onset Date: 11/21/23 Plan of Care Certification Date: 06/25/24 Next Certification Due Date: 09/25/24 REHABILITATION AND SPORTS THERAPY PHYSICAL THERAPY PROGRESS REPORT PLAN OF CARE UPDATE: Assessment: Chiara Croft demonstrates moderate improvement in rising from a chair, standing, walking, and physical activities. The patient has progressed toward goals. Patient continues to present with impairments in ADL's, overall function, range of motion, strength, symptom management, and tissue tenderness that interfere with . Current prognosis is Good due to: current objective clinical presentation, good overall health status, positive past response to therapy, within-session changes, good support system/ coping skills . The patient will benefit from continued skilled therapy services to meet theupdated goals for this plan of care as noted below. Goals updated on 06/25/2024. Goals for Episode of Care: created on 12/06/23 through 05/07/24 Independent in home exercises. Met Patient will decrease pain rating by 2 points to meet minimal clinical important difference for numeric pain rating scale. Partially met Restore pain-free lumbar ROM to WNL to allow for pain free functional ADLs Stand / Walk community distances without pain/symptoms. Progressing Sleep through night without pain/symptoms. Progressing Sit 45 minutes minutes without pain/symptoms to allow for comfortable sitting arrangements and improved overall QoL. Progressing Maintain proper sitting posture throughout session. Met Patient will increase strength of hip flexion, aBd, knee extension to 4+/5 to allow for improve ability to complete ADLs. Progressing Patient Goals: Reduce pain and be able to complete functional ADLs w/o pain Time Frame for Goals and Treatment : 09/25/23 Planned Interventions, Frequency, and Duration: 1x/month, 12 weeks Total Number of Visits Planned: 3 Patient to be seen for Therapeutic exercise (83617), Neuromuscular re-education (35893), Manual therapy (25459), Therapeutic activities (06494), Self-shelter management (70321), Patient/Family/Caregiver Education, Body Mechanics Training PLAN FOR NEXT VISIT: Manual for symptom modualtion, ease into exercises per symptom response SUBJECTIVE: Patient had a lot of compan over for the weekend due to her 79th birthday. Notes a lot of standing and activity and she fared really well. Seems like the needling and TENS has really eased symptoms up and she continues to see good carry over as well. Pain: Pain Pain Level: 3 Pain Location: Buttocks - Right Description: Aching, Sore Frequency: Continuous PROMIS Scales 06/24/2024 04/25/2024 03/27/2024 Higher is Better Phys Func - Score 33 (moderate dysfunction) 37 (moderate dysfunction) 39 (moderate dysfunction) Phys Func - Percentile 4 10 14 Self-Eff Symptom - Score 41 (Average) 48 (Average) 46 (Average) Self-Eff Symptom - Percentile 18 42 34 T-scores: mean of general population = 50. 5 points is clinically meaningfully difference Percentiles provide an indication of how the patient's score ranks in relation to the general population. Higher percentile rankings indicate better function/quality of life. 50th percentile is the average of the general population and indicates half of respondents had a worse score. OBJECTIVE MEASURES WITH LEVEL OF FUNCTION: Spine Observations R Lumbar Spine Palpation Tenderness: Gluteals L Lumbar Spine Palpation Tenderness: Paraspinals Lumbar Spine AROM Lumbar Flexion: Normal Lumbar Extension: Moderate limitation Lumbar R Side-Bend: Normal Lumbar L Side-Bend: Normal Lumbar R Rotation: Normal Lumbar L Rotation: Normal LE Strength Trunk Strength: 4/5 TREATMENT: Manual Therapy: 1: STM and TrPr to R QL and glute med with push to tolerance Dry Needling: (2) 50 and 60 mm needles to R lumbar paraspinals in clock technique, and (2) 75 mm needles to R glute med with placement of all needles only plus TENS per parameters below Skilled Intervention: Manual skills to improve joint mobility, ROM, and decrease pain. Utilized anatomy knowledge of the therapist, and assessment of patient's response to intervention. Billing Manual TherapyTreatment Minutes: 29 E- Stim Attended/TENS Treatment Minutes: 10 Skilled Treatment Time Minutes (timed and untimed codes): 39 Total Session Time (minutes): 39 Session Start Time : 1448 Session Stop Time : 1527 Karemn Amador PT documented in this encounterDiley [facility]11-05-2024 NoteOhio[facility]11-05-2024 History of Present illness Narrative* Quita Barth, BIOINFORMATICS SOFTWARE ENGINEER.WEIGHT ANALYST - 06/26/2024 2:13 PM EST Subjective Chiara Croft [facility] to [facility] for a follow up appointment. Since the last visit, Chiara Croft states the pain has been worse. Current pain intensity is 3 on a scale of 0-10. Pain located in lower back. Pain described as aching, burning, sharp, stabbing, and tightness. Symptoms interfere with physical activity, walking, bathing, cooking, and household cleaning. Pain is exacerbated by unable to pinpoint exacerbating factors/positions. Pain is mitigated by medications, heat, cold, distractions, exercise and massage. The medications are effective. The patient states the last dose of norco was taken at 10 a.m., robaxin was taken about one week ago, gabapentin was taken last night before bed. Patient Entered Questionnaires PROMIS Score Percentiles 12/05/2023 03/03/2024 06/24/2024 PROMIS Global Health Scale Physical Health Percentile 10 22* 31 Mental Health Percentile 43 43 73 04/25/2024 05/15/2024 06/24/2024 Physical Health Physical Function Percentile 10 4 Pain Interference Percentile 8 Percentiles provide an indication of how the patient's score ranks in relation to the general population. Higher percentile rankings indicate better function/quality of life. 50th percentile is the average of the general population and indicates half of respondents had a worse score. > 31st percentile is within normal limits or better * < 31st percentile is at least SD worse than population, which may be clinically relevant < 16th percentile is at least 1 SD worse than population and warrants attention Review of Systems Constitutional: (-) Weight Gain (-) Weight Loss (-) Fatigue Cardiovascular: (-) hx heart surgery (-) Pacemaker Respiratory: (+) Shortness of Breath (-) Cough (+) Snoring Gastrointestinal: (-) Incontinence (-) Diarrhea (-) Constipation (-) Nausea/Vomiting Endocrine: (+) Thyroid Disorder (-) Diabetes Hematologic: (+) Prolonged Bleeding (+) Easy Bruising Genitourinary: (-) Incontinence (-) Frequency (-) Urinary Urgency Skin: (-) Open sores/wound Neurologic: (-) Headache (-) Double Vision Psychiatric: (-) Depression (-) Anxiety (-) Personal History of Alcohol or Substance Abuse (-) Family History of Alcohol or Substance Abuse Chief Complaint Patient presents with: Follow Up Back Pain Injection Followup Physical Examination Pulse 77 Wt 148 lb 9.4 oz (67.4kg) SpO2 97% General:well appearing and alert Skin: Skin color, texture, turgor normal, no rashes or lesions HEENT: normal Cardiovascular: Regular, rate and rhythm Lungs: Normal respiratory rate and rhythm, unlabored on room air Musculoskeletal: Back: Tenderness on palpation over the lumbar spine. , Tenderness over the bilateral lumbar facets,pos facet loading Extremities: Normal exam of the extremities Neurological: Mental Status: alert Motor Strength: Motor strength and tone are 5/5 all throughout. Sensory: Not Examined Gait: Antalgic. Trigger points: lumbosacral spine muscles. Assessment Assessment : Patient presents for an injection follow-up. She is accompanied with her Patient had bilateral lumbar RFA on 04-17-2024 with no improvement Patient has a history of chronic low back with myofascial tenderness Patient reports she is doing dry needling with physical therapy and is down to every 3 to 4 weeks Patient reports within [place] she is able to do more and able to do housework She reports the gabapentin helps with the burning which she takes at bedtime She is also taking Robaxin muscle tightness and spasms Will sign opioid contract at next visit we will need to order a tox screen and pain panel Encounter Diagnosis ICD-10-CM 1. Myofascial pain syndrome of lumbar spine M79.18 2. Radiculopathy, lumbar region M54.16 gabapentin (NEURONTIN) 300 mg capsule HYDROcodone-acetaminophen (NORCO) 5-325 mg per tablet HYDROcodone-acetaminophen (NORCO) 5-325 mg per tablet 3. Lumbar facet arthropathy M47.816 HYDROcodone-acetaminophen (NORCO) 5-325 mg per tablet methocarbamol (ROBAXIN) 500 mg tablet HYDROcodone-acetaminophen (NORCO) 5-325 mg per tablet 4. Lumbar spondylosis M47.816 HYDROcodone-acetaminophen (NORCO) 5-325 mg per tablet methocarbamol (ROBAXIN) 500 mg tablet HYDROcodone-acetaminophen (NORCO) 5-325 mg per tablet 5. History of lumbar spinal fusion Z98.1 6. Postlaminectomy syndrome M96.1 PROMIS-10 Global Health In general, would you say your health is:: Very good In general, would you say your quality of life is:: Very good In general, how would you rate your physical health?: Very good In general, how would you rate your mental health, including your mood and your ability to think?: Very good In general, how would you rate your satisfaction with your social activities and relationships?: Very good In general, please rate how well you carry out your usual social activities and roles. (This includes activities at home, at work and in your community, and responsibilities as a parent, child, spouse, employee, friend, etc.): Good To what extent are you able to carry out your everyday physical activities such as walking, climbing stairs, carrying groceries, or moving a chair?: (!) Moderately In the past 7 days, how often have you been bothered by emotional problems such as feeling anxious,depressed or irritable?: Never In the past 7 days, how would you rate your fatigue on average?: Mild In the past 7 days, how would you rate your pain on average?: (!) 5 PROMIS-10 physical raw score: 14 Global Physical Health Raw Score: 14 PROMIS-10 physical T score: 44.9 Global Physical Health T Score: 44.9 PROMIS-10 Physical Health Percentile: 31 Global Physical Health Percentile: 31 PROMIS-10 mental raw score: 17 Global Mental Health Raw Score: 17 PROMIS-10 mental T score: 56 Global Mental Health T Score: 56 PROMIS-10 Mental Health Percentile: 73 Global Mental Health Percentile: 73 PROMIS-10 pain score: 3 0-10 Standard Pain Scale: 3 (06/24/24 1739 : User, Mychart) 06/24/2024 PROMIS CAT Pain Interference PROMIS Adult Short Form-Global Health Score (Mental) 56 (Excellent) Descriptive Summary for PROMIS Physical Function T-score = 33 (Percentile 4) Much difficulty - Carry a laundry basket up a flight of stairs. Some difficulty - Walk at a normal speed. Unable - Walk more than a mile (1.6 km). OARRS Report: Reviewed: The patient's OARRS report was reviewed and is consistent with the reportedmedication use. Urine Panel: Lab Results Component Value Date Cannabinoid Quant, Urine <16 01/02/2024 Benzoylecgonine Quant, Urine <24 01/02/2024 6-Acetylmorphine Quant, Urine <5 01/02/2024 Amphetamine Quant, Urine <5 01/02/2024 Methamphetamine Quant, Urine <8 01/02/2024 Buprenorphine Quant, Urine <20 01/02/2024 Norbuprenorphine Quant, Urine <20 01/02/2024 Methadone Quant, Urine <16 01/02/2024 EDDP Quant, Urine <6 01/02/2024 Tramadol Quant, Urine <25 01/02/2024 Desmethyltramadol Quant, Urine <20 01/02/2024 Fentanyl Quant, Urine <6 01/02/2024 Norfentanyl Quant, Urine <01/02/2024 Codeine Quant, Urine <11 01/02/2024 Morphine Quant, Urine <10 01/02/2024 Dihydrocodeine Quant, Urine <5 01/02/2024 Hydrocodone Quant, Urine <8 01/02/2024 Oxycodone Quant, Urine <10 01/02/2024 Hydromorphone Quant, Urine <01/02/2024 Oxymorphone Quant, Urine <5 01/02/2024 The pain panel was N/A Plan Injection history was reviewed. Medication use and compliance were reviewed. 1. Continue medication management through the [facility] 2. The following approved medication requests have been transmitted electronically. Requested Prescriptions Signed Prescriptions Disp Refills gabapentin (NEURONTIN) 300 mg capsule 30 capsule 2 Sig: Take 1 capsule by mouth daily at bedtime for 30 days. HYDROcodone-acetaminophen (NORCO) 5-325 mg per tablet 30 tablet 0 Sig: Take 1 tablet by mouth once daily as needed for pain for up to 30 days. methocarbamol (ROBAXIN) 500 mg tablet 60 tablet 1 Sig: Take 1 tablet by mouth two times a day as needed. HYDROcodone-acetaminophen (NORCO) 5-325 mg per tablet 30 tablet 0 Sig: Take 1 tablet by mouth once daily as needed for pain for up to 30 days. Patient should start on July 26, 2024. 3. Interventional procedure options discussed. none 4. Encouraged regular home exercise program. 5) F/U in 2 months The level of medical decision making for this encounter was low level. I spent a total of 25 minutes on the date of the service which included preparing to see the patient, [id number] patient care, completing clinical documentation, performing a medically appropriate examination, and ordering medications, tests, or procedures. 1. This document has been created with the use of voice recognition technology. It may contain inaccuracies: (e.g. misspellings, inaccurate syntax or word sense) that have escaped review. 2. The physician, nursing staff and medical assistants are a major part of YOUR TREATMENT TEAM and will be handling your phone calls and inquiries, if any. Unless explicitly told otherwise at the time of your office visit, your study results and ensuing treatment plans will be discussed during yourfollow-up appointment. If you do not have a follow-up appointment and wish to discuss any issues, please set up an appointment. 3. It is my practice to not fill disability or any other insurance-related forms/documentation. Allof the office notes, study results, and other pertinent documentation generated as part of your evaluation will be available to you and to your Primary Care Physician (PCP). Use of this material to complete such forms will be at the discretion of your PCP/referring physician. The above plan and management options were discussed at length with patient. Patient is in agreement with the above and verbalized understanding. Quita Barth APRN, SAURABH June 26, 2024 documented in this encounterD[facility]10-16-[facility]24 Note* Addendum Note - Angie Aguirre APRN.CNP - 06/06/2024 5:47 PM EDTAddended by: ANGIE AGUIRRE on: 06/06/2024 05:47 PM Modules accepted: Orders [facility]10-16-2024 Miscellaneous Notes* Addendum Note - Angie Aguirre APRN.CNP - 06/06/2024 5:47 PM EDTAddended by: ANGIE AGUIRRE on: 06/06/2024 05:47 PM Modules accepted: Orders * Telephone Encounter - Angie Aguirre APRN.CNP - 06/06/2024 5:41 PM EDT See thad. documented in this encounterDiley [facility] Center10-16-2024 Telephone encounter Note * Telephone Encounter - Angie Aguirre APRN.CNP - 06/06/2024 5:41 PM EDT See thad. [facility]10-16-2024 NoteOhio[facility] History of Present illness Narrative* Karmen Amador, PT - 06/06/2024 12:28 PM EDT Episode Visit Count: 16 Therapist That Will Accept/Oversee The Plan Of Care: Karmen Amador Start of Care Date: 12/06/23 Onset Date: 11/21/23 Plan of Care Certification Date: 03/05/24 Next Certification Due Date: 05/06/24 REHABILITATION AND SPORTS THERAPY PHYSICAL THERAPY TREATMENT NOTE ASSESSMENT: Chiara Croft tolerated the session with decreased symptoms. She demonstrated difficulty with standing, walking, sitting and driving with increased LBP and sciatica. The patient will continue to benefit from ongoing skilled physical therapy to progress toward set goals and for reassessment by supervising therapist. PLAN FOR NEXT VISIT: [place] SUBJECTIVE: Patient has been pretty miserable. The ablasion did not work and patient has seen a decline in function. She is walking a mile every few days which hurts, but does not increase her symptoms. Pain: Pain Pain Level: 7 Pain Location: Buttocks - Right, Low Back/Lumbar Spine - Right Description: Aching, Sore, Radiating Frequency: Continuous OBJECTIVE MEASURES WITH LEVEL OF FUNCTION: Pain to palpate below noted areas TREATMENT: Manual Therapy: 1: STM and TrPr to R QL and glute med with push to tolerance Dry Needling: (2) 50 and 60 mm needles to R lumbar paraspinals in clock technique, and (2) 75 mm needles to R glute med with placement of all needles only plus TENS per parameters below (6 needles in, 6 needles out. patient consent gained) Skilled Intervention: Manual skills to improve joint mobility, ROM, and decrease pain. Utilized anatomy knowledge of the therapist, and assessment of patient's response to intervention. Modalities: Body Region Treated - E-Stim Attended/TENS: Lumbar paraspinals L4-5, and glute med Patient Position: L side lying Current: 10 Hz Channels: 1-2, 3 Intensity: Ch 1-2: 5.0 V; Ch 3: 4.5-6.0 Minutes: 10 Skilled Intervention: Proper administration and selection of modality based on clinical presentation, deficits, and needs. Patient response monitored throughout treatment. Billing Manual TherapyTreatment Minutes: 30 E- Stim Attended/TENS Treatment Minutes: 10 Skilled Treatment Time Minutes (timed and untimed codes): 40 Total Session Time (minutes): 40 Session Start Time : 1032 Session Stop Time : 1112 Karmen Amador PT documented in this encounterDiley [facility] Center10-15-2024 History of Present illness Narrative* Lore Bolivar Mammo Tech - 06/05/2024 10:00 AM EDT Radiology Service Progress Note PATIENT NAME: Chiara Croft DATE OF SERVICE: June 05, 2024 TIME: 9:53 AM PATIENT IDENTITY VERIFICATION COMPLETED USING TWO (2) IDENTIFIERS: Name and Date of confirmedby patient verbally. FALL SCREENING: Has the patient had 2 falls in the last year or 1 fall with injury or currently using an Ambulatory Assistive Device (Walker, Cane, Wheelchair, Crutches, etc.)? No PATIENT GENDER DATA: Female. status: : No status: NO. PATIENT RELEVANT IMPLANT DATA REVIEWED: Not Applicable PATIENT PRESENTS WITH AN IMPLANTABLE OR ATTACHED BULL RIVETER: No RADIOLOGY DEPARTMENT: Mammography PERIPHERAL IV DATA: Not applicable SIGNED BY: Margie Roberts June 05, 2024 9:53 AM documented in this encounterDiley [facility] Center10-15-2024 NoteOhio[facility]10-01-2024 NoteOhio[facility]10-01-2024 History of Present illness Narrative* Quita Barth, BIOINFORMATICS SOFTWARE ENGINEER.WEIGHT ANALYST - 05/22/2024 2:30 PM EDT Images from the original note were not included. Subjective Chiara Croft [facility] to [facility] for a follow up appointment. Since the last visit, Chiara Croft states the pain has been worsening. Current pain intensity is6 on a scale of 0-10. Pain located in lower back. Pain described as aching, burning, dull, sharp, soreness, spasm, stiff, and tightness Symptoms interfere with physical activity. Pain is exacerbated by sitting. Pain is mitigated by medication, reposition, distractions, exercise, heat, massage, and positioning. The patient is unsure if the medication helps. The patient states the last dose of robaxin was taken this morning about 9am. Patient Entered Questionnaires PROMIS Score Percentiles 08/27/2023 12/05/2023 03/03/2024 PROMIS Global Health Scale Physical Health Percentile 15 10 22* Mental Health Percentile 19* 43 43 03/27/2024 04/25/2024 05/15/2024 Physical Health Physical Function Percentile 14 10 Pain Interference Percentile 8 Percentiles provide an indication of how the patient's score ranks in relation to the general population. Higher percentile rankings indicate better function/quality of life. 50th percentile is the average of the general population and indicates half of respondents had a worse score. > 31st percentile is within normal limits or better * < 31st percentile is at least SD worse than population, which may be clinically relevant < 16th percentile is at least 1 SD worse than population and warrants attention Review of Systems Constitutional: (-) Weight Gain (-) Weight Loss (-) Fatigue Cardiovascular: (-) hx heart surgery (-) Pacemaker Respiratory: (-) Shortness of Breath (-) Cough (-) Snoring Gastrointestinal: (-) Incontinence (-) Diarrhea (-) Constipation (-) Nausea/Vomiting Endocrine: (+) Thyroid Disorder (-) Diabetes Hematologic: (-) Prolonged Bleeding (-) Easy Bruising Genitourinary: (-) Incontinence (-) Frequency (-) Urinary Urgency Skin: (-) Open sores/wound Neurologic: (-) Headache (-) Double Vision Psychiatric: (-) Depression (-) Anxiety (-) Personal History of Alcohol or Substance Abuse (-) Family History of Alcohol or Substance Abuse Chief Complaint Patient presents with: RFA F/u Physical Examination There were no vitals taken for this visit. General:well appearing and alert Skin: Skin color, texture, turgor normal, no rashes or lesions HEENT: normal Cardiovascular: Regular, rate and rhythm Lungs: Normal respiratory rate and rhythm, unlabored on room air Musculoskeletal: Back: Tenderness on palpation over the lumbar spine. , Tenderness over the bilateral lumbar facets,Tenderness over the bilateral lumbar paraspinal muscles, POS facet loading Extremities: Normal exam of the extremities Neurological: Mental Status: alert Motor Strength: Motor strength and tone are 5/5 all throughout. Sensory: Not Examined Gait: Antalgic. Trigger points: lumbosacral spine muscles. Assessment Assessment : Patient presents for an injection follow-up Patient had bilateral lumbar RFA on 04-17-2024 and reports no improvement Patient reports she is experiencing low back pain that radiates down the posterior lower extremities. She reports that her right side is worse than her left side She reports since the ablation the burning in the but is intermittent now Patient reports she is almost done with physical therapy she is going every 3 weeks. She is doing dry needling Patient is using lidocaine patches and using heat Takes Robaxin as needed She has tried massage last week and reports the therapist that she was very tight Is taking gabapentin 300 mg at bedtime and received a prescription from her primary care for [place] on 03-27 Encounter Diagnosis ICD-10-CM 1. Lumbar facet arthropathy M47.816 HYDROcodone-acetaminophen (NORCO) 5-325 mg per tablet 2. Lumbar spondylosis M47.816 HYDROcodone-acetaminophen (NORCO) 5-325 mg per tablet 3. Radiculopathy, lumbar region M54.16 gabapentin (NEURONTIN) 300 mg capsule HYDROcodone-acetaminophen (NORCO) 5-325 mg per tablet 05/15/2024 PROMIS CAT Pain Interference PROMIS Pain Interference T-Score (range: 10 - 90) 64 (moderate) PROMIS Pain Interference Percentile 8 Descriptive Summary for PROMIS Physical Function T-score = 37 (Percentile 10) Much difficulty - Carry a laundry basket up a flight of stairs. Some difficulty - Walk at a normal speed. Unable - Walk more than a mile (1.6 km). OARRS Report: Reviewed: The patient's OARRS report was reviewed and is consistent with the reportedmedication use. Urine Panel: Lab Results Component Value Date Cannabinoid Quant, Urine <16 01/02/2024 Benzoylecgonine Quant, Urine <24 01/02/2024 6-Acetylmorphine Quant, Urine <5 01/02/2024 Amphetamine Quant, Urine <5 01/02/2024 Methamphetamine Quant, Urine <8 01/02/2024 Buprenorphine Quant, Urine <20 01/02/2024 Norbuprenorphine Quant, Urine <20 01/02/2024 Methadone Quant, Urine <16 01/02/2024 EDDP Quant, Urine <6 01/02/2024 Tramadol Quant, Urine <25 01/02/2024 Desmethyltramadol Quant, Urine <20 01/02/2024 Fentanyl Quant, Urine <6 01/02/2024 Norfentanyl Quant, Urine <6 01/02/2024 Codeine Quant, Urine <11 01/02/2024 Morphine Quant, Urine <10 01/02/2024 Dihydrocodeine Quant, Urine <5 01/02/2024 Hydrocodone Quant, Urine <8 01/02/2024 Oxycodone Quant, Urine <10 01/02/2024 Hydromorphone Quant, Urine <5 01/02/2024 Oxymorphone Quant, Urine <5 01/02/2024 Plan Injection history was reviewed. Medication use and compliance were reviewed. 1. Continue medication management through the [facility] 2. The following approved medication requests have been transmitted electronically. Requested Prescriptions Signed Prescriptions Disp Refills gabapentin (NEURONTIN) 300 mg capsule 30 capsule 2 Sig: Take 1 capsule by mouth daily at bedtime for 30 days. HYDROcodone-acetaminophen (NORCO) 5-325 mg per tablet 30 tablet 0 Sig: Take 1 tablet by mouth once daily as needed for pain for up to 30 days. 3. Interventional procedure options discussed. NONE 4. Encouraged regular home exercise program. 5) F/U in PRN The level of medical decision making for this encounter was moderate level. I spent a total of 25 minutes on the date of the service which included preparing to see the patient, [id number] patient care, completing clinical documentation, performing a medically appropriate examination, and ordering medications, tests, or procedures. 1. This document has been created with the use of voice recognition technology. It may contain inaccuracies: (e.g. misspellings, inaccurate syntax or word sense) that have escaped review. 2. The physician, nursing staff and medical assistants are a major part of YOUR TREATMENT TEAM and will be handling your phone calls and inquiries, if any. Unless explicitly told otherwise at the time of your office visit, your study results and ensuing treatment plans will be discussed during yourfollow-up appointment. If you do not have a follow-up appointment and wish to discuss any issues, please set up an appointment. 3. It is my practice to not fill disability or any other insurance-related forms/documentation. Allof the office notes, study results, and other pertinent documentation generated as part of your evaluation will be available to you and to your Primary Care Physician (PCP). Use of this material to complete such forms will be at the discretion of your PCP/referring physician. The above plan and management options were discussed at length with patient. Patient is in agreement with the above and verbalized understanding. Quita Barth APRN, SAURABH May 22, 2024 documented in this encounterDiley [facility]09-25-2024 NoteOhio[facility]09-25-2024 History of Present illness Narrative* Karmen Amador, PT - 05/16/2024 3:36 PM EDT Episode Visit Count: 15 Therapist That Will Accept/Oversee The Plan Of Care: Karmen Amador Start of Care Date: 12/06/23 Onset Date: 11/21/23 Plan of Care Certification Date: 03/05/24 Next Certification Due Date: 05/06/24 REHABILITATION AND SPORTS THERAPY PHYSICAL THERAPY TREATMENT NOTE ASSESSMENT: Chiara Croft tolerated the session with decreased symptoms. She demonstrated difficulty with standing, walking, and general activity. The patient will continue to benefit from ongoing skilled physical therapy to progress toward set goals. PLAN FOR NEXT VISIT: Assess new addition to needling SUBJECTIVE: Patient has been flared up since having the ablasion. Pain: Pain Pain Level: 6 Pain Location: Buttocks - Right, Low Back/Lumbar Spine - Right Description: Aching, Sore, Radiating Frequency: Continuous OBJECTIVE MEASURES WITH LEVEL OF FUNCTION: Pain to palpate below noted locations TREATMENT: Manual Therapy: 1: STM and TrPr to R QL and glute med with push to tolerance Dry Needling: (2 50 and 75 mm needles to R lumbar paraspinals in clock technique positions 2 and 3 with placement of needles plus TENS; (2) 75 mm needles to L glute min middle and posterior fibers with placement of needles only plus TENS (TENS parameters noted below) Skilled Intervention: Manual skills to improve joint mobility, ROM, and decrease pain. Utilized anatomy knowledge of the therapist, and assessment of patient's response to intervention. Modalities: E-Stim Attended/TENS Body Region Treated - E-Stim Attended/TENS: Lumbar paraspinals L4-5, and glute min Patient Position: L side lying Current: 10 Hz Channels: 1-2, 3 Intensity: leads 1-2 3.5 V; lead 3 5.5 V Minutes: 10 Skilled Intervention: Proper administration and selection of modality based on clinical presentation, deficits, and needs. Patient response monitored throughout treatment. Billing Manual TherapyTreatment Minutes: 31 E- Stim Attended/TENS Treatment Minutes: 10 Skilled Treatment Time Minutes (timed and untimed codes): 41 Total Session Time (minutes): 41 Session Start Time : 1047 Session Stop Time : 1128 Karmen Amador PT documented in this encounterDiley [facility] Center09-20-2024 Telephone encounter Note * Telephone Encounter - Samina Govea RN - 05/11/2024 1:49 PM EDT NORMA: 03/15/2024 w/Quita Barth CNP PLAN: Reviewed procedural instructions. Handout given Continue medication through current prescriber Interventional procedure options discussed. Ordered and schedule repeat RFA Continue regular home exercise program. F/U in 6 weeks Procedure(s): 04/17/2024: Bilateral L5-S1 Lumbar Facet RFA 09/27/2023: Bilateral L5-S1 Lumbar Facet RFA Ordered Medrol Dose DEVON. Patient did not take prescription. Routing to provider for review. [facility]09-20-[facility] Miscellaneous Notes* Telephone Encounter - Samina Govea RN - 05/11/2024 1:49 PM EDT NORMA: 03/15/2024 w/Quita Barth CNP PLAN: Reviewed procedural instructions. Handout given Continue medication through current prescriber Interventional procedure options discussed. Ordered and schedule repeat RFA Continue regular home exercise program. F/U in 6 weeks Procedure(s): 04/17/2024: Bilateral L5-S1 Lumbar Facet RFA 09/27/2023: Bilateral L5-S1 Lumbar Facet RFA Ordered Medrol Dose DEVON. Patient did not take prescription. Routing to provider for review. documented in this encounterDiley [facility] Center09-12-2024 Note* Addendum Note - Samina Govea RN - 05/03/2024 3:32 PM EDTAddended by: SAMINA GOVEA on: 05/03/2024 03:32 PM Modules accepted: Orders [facility]09-12-2024 Miscellaneous Notes* Addendum Note - Samina Govea RN - 05/03/2024 3:32 PM EDTAddended by: SAMINA GOVEA on: 05/03/2024 03:32 PM Modules accepted: Orders * Telephone Encounter - Samina Govea RN - 05/03/2024 3:31 PM EDT Medrol Dose DEVON pended for provider review. Routing to provider. * Telephone Encounter - Samina Govea RN - 05/03/2024 12:54 PM EDT NORMA: 03/15/2024 w/Quita Barth CNP PLAN: Reviewed procedural instructions. Handout given Continue medication through current prescriber Interventional procedure options discussed. Ordered and schedule repeat RFA Continue regular home exercise program. F/U in 6 weeks Procedure(s): 04/17/2024: Bilateral L5-S1 Lumbar Facet RFA 09/27/2023: Bilateral L5-S1 Lumbar Facet RFA Routing to provider for review. documented in this encounterDiley [facility] Center09-12-2024 Telephone encounter Note * Telephone Encounter - Samina Govea RN - 05/03/2024 3:31 PM EDT Medrol Dose DEVON pended for provider review. Routing to provider. [facility]09-12-[facility] Telephone encounter Note* Telephone Encounter - Samina Govea RN - 05/03/2024 12:54 PM EDT NORMA: 03/15/2024 w/Quita Barth CNP PLAN: Reviewed procedural instructions. Handout given Continue medication through current prescriber Interventional procedure options discussed. Ordered and schedule repeat RFA Continue regular home exercise program. F/U in 6 weeks Procedure(s): 04/17/2024: Bilateral L5-S1 Lumbar Facet RFA 09/27/2023: Bilateral L5-S1 Lumbar Facet RFA Routing to provider for review. [facility]09-12-[facility] History of Present illness Narrative* Josue Koehler, RT(R) - 05/03/2024 7:45 AM EDT Radiology Service Progress Note PATIENT NAME: Chiara Croft DATE OF SERVICE: May 03, 2024 TIME: 7:55 AM PATIENT IDENTITY VERIFICATION COMPLETED USING TWO (2) IDENTIFIERS: Name and Date of confirmedby patient verbally. FALL SCREENING: Has the patient had 2 falls in the last year or 1 fall with injury or currently using an Ambulatory Assistive Device (Walker, Cane, Wheelchair, Crutches, etc.)? No PATIENT GENDER DATA: Female. status: : No status: NO. PATIENT RELEVANT IMPLANT DATA REVIEWED: Not Applicable PATIENT PRESENTS WITH AN IMPLANTABLE OR ATTACHED BULL RIVETER: No RADIOLOGY DEPARTMENT: Bone Density PERIPHERAL IV DATA: Not applicable SIGNED BY: RT Lima(R) May 03, 2024 7:55 AM documented in this encounterD[facility]09-12-2024 NoteOhio[facility] Telephone encounter Note* Telephone Encounter - Shayla Barlow MA - 05/01/2024 4:41 PM EDT Prescription Refill Information The patient has been identified by name and date of : Yes Caregiver verified no other encounters exist for this prescription request: Yes Caregiver confirmed with patient/requestor that no other refills are due, in the near future, with this provider at this time: No The last office visit in the department: 04/16/24 Does the patient have a future office visit with this provider/department: Yes Requested Prescriptions Pending Prescriptions Disp Refills rosuvastatin (CRESTOR) 5 mg tablet 90 tablet 1 Sig: Take 1 tablet by mouth once daily. Shayla Barlow MA May 01, 2024 4:41 PM [facility]09-10-2024 Miscellaneous Notes* Telephone Encounter - Shayla Barlow MA - 05/01/2024 4:41 PM EDT Prescription Refill Information The patient has been identified by name and date of : Yes Caregiver verified no other encounters exist for this prescription request: Yes Caregiver confirmed with patient/requestor that no other refills are due, in the near future, with this provider at this time: No The last office visit in the department: 04/16/24 Does the patient have a future office visit with this provider/department: Yes Requested Prescriptions Pending Prescriptions Disp Refills rosuvastatin (CRESTOR) 5 mg tablet 90 tablet 1 Sig: Take 1 tablet by mouth once daily. Shayla Barlow MA May 01, 2024 4:41 PM documented in this encounterDiley [facility] Center09-04-2024 NoteOhio[facility]09-04-2024 History of Present illness Narrative* Karmen Amador PT - 04/25/2024 12:58 PM EDT Episode Visit Count: 14 Therapist That Will Accept/Oversee The Plan Of Care: Karmen Amador Start of Care Date: 12/06/23 Onset Date: 11/21/23 Plan of Care Certification Date: 03/05/24 Next Certification Due Date: 05/06/24 REHABILITATION AND SPORTS THERAPY PHYSICAL THERAPY TREATMENT NOTE ASSESSMENT: Chiara Croft tolerated the session with decreased symptoms and expected muscle soreness. She demonstrated improvements in buttock pain. The patient will continue to benefit from ongoing skilled physical therapy to progress toward set goals. PLAN FOR NEXT VISIT: SUBJECTIVE: Patient has been doing very well for ~6 weeks, but in the last week a lot of pressure and deep nerve pain in the inferior buttocks. She did have a large meal to cook, and the standing andeverything involved seemed to really effect her for awhile. Slwoly getting better, but coming to the conclusion that she cannot do those all day cooking marathons anymore. Pain: Pain Pain Level: 4 Pain Location: Buttocks - Right Description: Sore, Aching Frequency: Continuous OBJECTIVE MEASURES WITH LEVEL OF FUNCTION: Pain reproduced with palpation to R glute med TREATMENT: Manual Therapy: 1: STM and TrPr to R QL and glute med with push to tolerance Dry Needling: (2) 75 and (1) 100 mm needle to R glute med with pistoning and fanning (3 needles in,3 needles out. Patient consent gained) Skilled Intervention: Manual skills to improve joint mobility, ROM, and decrease pain. Utilized anatomy knowledge of the therapist, and assessment of patient's response to intervention. Billing Manual TherapyTreatment Minutes: 44 Skilled Treatment Time Minutes (timed and untimed codes): 44 Total Session Time (minutes): 44 Session Start Time : 944 Session Stop Time : 1028 Karmen Amador PT documented in this encounterDiley [facility] Center08-26-2024 Instructions* Patient Instructions* Angie Aguirre APRN.WEIGHT ANALYST - 04/16/2024 8:11 AM EDT Continue the same medications. Start the tessalon perles as needed. Schedule mammogram and dexa scan. Recheck in 3 months. documented in this encounterDiley [facility] Center08-26-2024 History of Present illness Narrative* Angie Aguirre APRN.SAURABH - 04/16/2024 7:43 AM EDT This is a 78 year old female who presents today with: Patient presents with: Follow Up HISTORY OF PRESENT ILLNESS: Chiara Croft is a 78 year old female. Patient presents with: Follow Up Pt presents today for follow-up on chronic lower back pain. She is scheduled for an ablation tomorrow. She follows with pain management, however, primarily care fills limited vicodin for breakthrough pain. Refers hasn't used any vicodin for about a month. Being able to have the prn vicodin allows for patient to be able to function through flares and continue with her activities of daily living. She is up to date on tox screen, and pain management agreement. She is recovering from covid. Feeling better. Still with cough and fatigue. PAST MEDICAL HISTORY: PAST MEDICAL HISTORY No date: Abdominal pain No date: Arthritis No date: Asthma No date: Degenerative disc disease No date: Depression No date: Disorder of bone and cartilage, unspecified No date: History of transfusion No date: HTN (hypertension) No date: Hypothyroid No date: Intrinsic asthma No date: Mixed hyperlipidemia Comment: Hyperlipidemia No date: Osteoarthrosis, unspecified whether generalized or localized, other specified sites No date: PMH - PAST MEDICAL HISTORY OF Comment: CVA with weakness left side 2001: PMH - PAST MEDICAL HISTORY OF Comment: left cervical radiculopathy 2004: PMH - PAST MEDICAL HISTORY OF Comment: right rib fracture 2006: PMH - PAST MEDICAL HISTORY OF Comment: right shoulder impingement syndrome No date: Spinal stenosis 2006: Stroke (HCC) No date: Unspecified hypothyroidism PAST SURGICAL HISTORY 1960: APPENDECTOMY No date: APPENDECTOMY HX 2017: BACK SURGERY HX Comment: L3-5 Decompression and Fusion No date: CATARACT EXTRACTION HX; Bilateral 09/15/2016: COLONOSCOPY; N/A Comment: MAC 09/17/2016: EGD W/O [facility] SPEC VARICIES INJ 11/15/2022: EGD W/O [facility] SPEC VARICIES INJ No date: EPIDURAL SITE SPECIFY Comment: lumbar spine No date: EYE SURGERY HX 1977: PAST SURGICAL HISTORY OF Comment: thyroidectomy for toxic goiter No date: SKIN BIOPSY HX No date: TONSILLECTOMY HX No date: TONSILLECTOMY PRIMARY/SECONDARY <AGE 12 Comment: Tonsillectomy ALLERGIES Cymbalta [Duloxetine], Fosamax [Alendronate Sodium], Septra [Sulfamethoxazole-Trimethoprim], Sulfamethoxazole, Tramadol, Trimethoprim, and Bupropion MEDICATIONS Current Outpatient Medications Medication Sig levothyroxine (LEVOXYL) 88 mcg tablet Take 1 tablet by mouth once daily. Take on empty stomach. ForThyroid clopidogrel (PLAVIX) 75 mg tablet Take 1 tablet by mouth once daily. [facility] ID: [id number] [email or web address] amitriptyline (ELAVIL) 10 mg tablet Take 2 tablets by mouth daily at bedtime. gabapentin (NEURONTIN) 100 mg capsule take two pills by mouth three times daily. QVAR REDIHALER 40 mcg/actuation inhaler Inhale 1 Puff as instructed two times a day. losartan (COZAAR) 50 mg tablet TAKE 1 & 1/2 (ONE & ONE-HALF) TABLETS BY MOUTH ONCE DAILY rosuvastatin (CRESTOR) 5 mg tablet Take 1 tablet by mouth once daily. guaifenesin/phenylephrine HCl (MUCINEX COLD ORAL) Take by mouth. albuterol HFA (VENTOLIN HFA) 90 mcg/actuation inhaler Inhale 2 Puffs as instructed every 4 hours asneeded for wheezing/shortness of breath. lidocaine (SALONPAS) 4 % patch Apply as directed once daily. denosumab (PROLIA) 60 mg/mL syrg Inject 60 mg subcutaneously one time only. acetaminophen (TYLENOL) 500 mg tablet Take 500 mg by mouth every 8 hours as needed. Current Facility-Administered Medications Medication Dose Route Frequency denosumab 60 mg injection (PROLIA) 60 mg SUBCUTANEOUS Q 6 MONTH FAMILY HISTORY Problem Relation Age of Onset Cerebral Embolism Mother Osteoporosis Mother other (spinal stenosis) Mother other (depression) Mother other (cva) Mother other (depression) Father other (tramatic brain syndrome) Father s/p MVA other (aplastic thyroid tumor) Sister Depression Brother Stroke Maternal Grandfather Colon Cancer No Family History Social History Tobacco Use Smoking status: Former Current packs/day: 0.50 Average packs/day: 0.5 packs/day for 8.0 years (4.0 ttl pk-yrs) Types: Cigarettes Smokeless tobacco: Never Tobacco comments: quit in 1969 Vaping Use Vaping status: Never Used Substance Use Topics Alcohol use: Yes Comment: 1-2 times per week Drug use: No EXAM: BP 110/66 Pulse 89 Resp 16 SpO2 96% PHYSICAL EXAM: General Appearance: Well appearing, alert, in no acute distress, well-hydrated, well nourished.. Skin: Skin color, texture, turgor normal, no suspicious rashes or lesions. Head: Normocephalic, no masses, lesions, tenderness or abnormalities. Eyes: Anicteric sclera. Pupils are equally round and reactive to light. Extraocular movements are intact. . Ears: External ears normal, canals clear. Lungs: Lungs clear to auscultation. No wheezing, rhonchi, rales.. Heart: RRR without murmur, gallop, or rubs. No ectopy. Extremities: No deformities, edema, skin discoloration, clubbing or cyanosis. Good capillary refill. . Neurologic: Gait normal. ASSESSMENT/PLAN: 1. Chronic bilateral low back pain without sciatica - ICD9: 724.2, 338.29, ICD10: M54.50, G89.29 (primary diagnosis) Pt with chronic back pain. She sparingly uses vicodin for breakthrough symptoms, which allows her to be able to function at her highest level and maintain independence with activities of daily living. She is up-to-date with pain agreement and tox screen. Compliant with coming in for office visits. No hx of misuse. Not using any other controlled substances. 2. Pain medication agreement - ICD9: V58.69, ICD10: Z02.89 As above. 3. Spinal stenosis of lumbar region with neurogenic claudication - ICD9: 724.03, ICD10: M48.062 As above. 4. Chronic right-sided low back pain without sciatica - ICD9: 724.2, 338.29, ICD10: M54.50, G89.29 As above. 5. COVID-19 - ICD9: 079.89, ICD10: U07.1 Improving. Tessalon jessica for cough. - BENZONATATE 100 MG CAPSULE Discussed treatment plan and patient voices understanding. Patient's questions answered appropriately. Medications and potential side effects were discussed and patient voices understanding. Return to the office as scheduled or as needed for worsening/no improvement. Angie Aguirre APRN.WEIGHT ANALYST documented in this encounterDiley [facility] Center08-16-2024 History of Present illness Narrative* PerryMigueln, PT - 04/06/2024 2:58 PM EDT Images from the original note were not included. Episode Visit Count: 13 Therapist That Will Accept/Oversee The Plan Of Care: Karmen Amador Start of Care Date: 12/06/23 Onset Date: 11/21/23 Plan of Care Certification Date: 03/05/24 Next Certification Due Date: 05/06/24 REHABILITATION AND SPORTS THERAPY PHYSICAL THERAPY PROGRESS REPORT PLAN OF CARE UPDATE: Assessment: Chiara Croft demonstrates minimal improvement in rising from a chair, standing, and walking. Mistyhas progressed toward goals. Patient continues to present with impairments in overall function, strength, symptom management, and tissue tenderness that interfere with standing, walking, bending, heavy exertion, sitting, rising from a chair, lifting, physical activities, recreational activities . Current prognosis is Good due to: current objective clinical presentation, good overall health status, positive past response to therapy, within-session changes, good support system/ coping skills . She will benefit from continued skilled therapy services to meet the updated goals for this plan of care as noted below. Goals updated on 04/05/2024. Goals for Episode of Care: created on 12/06/23 through 05/07/24 Independent in home exercises. Met Patient will decrease pain rating by 2 points to meet minimal clinical important difference for numeric pain rating scale. Partially met Restore pain-free lumbar ROM to WNL to allow for pain free functional ADLs Stand / Walk community distances without pain/symptoms. Progressing Sleep through night without pain/symptoms. Progressing Sit 45 minutes minutes without pain/symptoms to allow for comfortable sitting arrangements and improved overall QoL. Progressing Maintain proper sitting posture throughout session. Met Patient will increase strength of hip flexion, aBd, knee extension to 4+/5 to allow for improve ability to complete ADLs. Progressing Patient Goals: Reduce pain and be able to complete functional ADLs w/o pain Planned Interventions, Frequency, and Duration: 1x every other week, 6 weeks Total Number of Visits Planned: 3 Patient to be seen for Therapeutic exercise (75247), Neuromuscular re-education (63403), Manual therapy (01010), Therapeutic activities (89045), Self-shelter management (52624), Patient/Family/Caregiver Education, Body Mechanics Training PLAN FOR NEXT VISIT: manual as needed, progress exercises per tolerance SUBJECTIVE: Overall patient continues to do better. She has been sick with COVID and has been run down/unable to keep up with exercises. Notes that her R low back is referring into the buttocks currently. Functional Limitations: standing, walking, bending, heavy exertion, sitting, rising from a chair, lifting, physical activities, recreational activities Pain: Pain Pain Level: 3 Pain Location: Buttocks - Right Description: Sore Frequency: Intermittent PROMIS Scales 03/27/2024 02/22/2024 01/05/2024 Higher is Better Phys Func - Score 39 (moderate dysfunction) 36 (moderate dysfunction) 36 (moderate dysfunction) Phys Func - Percentile 14 8 8 Self-Eff Symptom - Score 46 (Average) 37 (Low) 41 (Average) Self-Eff Symptom - Percentile 34 10 18 T-scores: mean of general population = 50. 5 points is clinically meaningfully difference Percentiles provide an indication of how the patient's score ranks in relation to the general population. Higher percentile rankings indicate better function/quality of life. 50th percentile is the average of the general population and indicates half of respondents had a worse score. OBJECTIVE MEASURES WITH LEVEL OF FUNCTION: Spine Observations R Lumbar Spine Palpation Tenderness: Gluteals Lumbar Spine AROM Lumbar Extension: Moderate limitation LE Strength Trunk Strength: 4/5 R Hip Extension: 4/5 R Hip ABduction: 4-/5 R Hip ADduction: 4+/5 R Hip Internal Rotation: 4+/5 R Hip External Rotation: 4/5 TREATMENT: Manual Therapy: 1: STM and TrPr to R QL and glute med with push to tolerance 2: Objective measures obtained Dry Needling: (2) 75 mm needles to R glute med and min with pistoning and fanning (4 needles in, 4 needles out. patient consent gained) Skilled Intervention: Manual skills to improve joint mobility, ROM, and decrease pain. Utilized anatomy knowledge of the therapist, and assessment of patient's response to intervention. Billing Manual TherapyTreatment Minutes: 40 Skilled Treatment Time Minutes (timed and untimed codes): 40 Total Session Time (minutes): 40 Session Start Time : 1050 Session Stop Time : 1130 Karmen Amador PT documented in this encounterDiley [facility] Center08-12-2024 History of Present illness Narrative* Tatyana Orourke RT(R) - 04/02/2024 3:40 PM EDT Radiology Service Progress Note PATIENT NAME: Chiara Croft DATE OF SERVICE: April 02, 2024 TIME: 3:32 PM PATIENT IDENTITY VERIFICATION COMPLETED USING TWO (2) IDENTIFIERS: Name and Date of confirmedby patient verbally. FALL SCREENING: Has the patient had 2 falls in the last year or 1 fall with injury or currently using an Ambulatory Assistive Device (Walker, Cane, Wheelchair, Crutches, etc.)? No PATIENT GENDER DATA: Female. status: : No status: NO. PATIENT RELEVANT IMPLANT DATA REVIEWED: Not Applicable PATIENT PRESENTS WITH AN IMPLANTABLE OR ATTACHED BULL RIVETER: No RADIOLOGY DEPARTMENT: General X-ray: Exam(s) Completed: Chest X-Ray PERIPHERAL IV DATA: Not applicable SIGNED BY: RT Francisco(R) April 02, 2024 3:32 PM documented in this encounterDiley Ridge Medical Center08-12-2024 Instructions* Patient Instructions* Angie Aguirre APRN.CNP - 04/02/2024 3:22 PM EDT Get the chest xray. Start the prednisone. Let me know if any worsening/no improvement. documented in this encounterDiley [facility] Center08-12-2024 History of Present illness Narrative* Angie Aguirre APRN.WEIGHT ANALYST - 04/02/2024 3:04 PM EDT This is a 78 year old female who presents today with: Patient presents with: Recheck: Follow up- covid HISTORY OF PRESENT ILLNESS: Chiara Croft is a 78 year old female. Patient presents with: Recheck: Follow up- covid Productive cough. Symptoms started 8 days ago -- thought she was getting a cold. Did a test, it was negative. Flew home the next day. Tuesday, positive test. Sore throat, cough. + fatigue. Productive cough. Started the paxlovid last Tuesday. Finished paxlovid this morning. Using albuterol. Took loratadine last night. Just fatigue. Feels lightheaded. Refers URI's always seem to end up in her chest. Admits that other symptoms seem to be improving. No fever for the last 2-3 days. PAST MEDICAL HISTORY: PAST MEDICAL HISTORY No date: Abdominal pain No date: Arthritis No date: Asthma No date: Degenerative disc disease No date: Depression No date: Disorder of bone and cartilage, unspecified No date: History of transfusion No date: HTN (hypertension) No date: Hypothyroid No date: Intrinsic asthma No date: Mixed hyperlipidemia Comment: Hyperlipidemia No date: Osteoarthrosis, unspecified whether generalized or localized, other specified sites No date: PMH - PAST MEDICAL HISTORY OF Comment: CVA with weakness left side 2001: PMH - PAST MEDICAL HISTORY OF Comment: left cervical radiculopathy 2004: PMH - PAST MEDICAL HISTORY OF Comment: right rib fracture 2006: PM - PAST MEDICAL HISTORY OF Comment: right shoulder impingement syndrome No date: Spinal stenosis 2006: Stroke (HCC) No date: Unspecified hypothyroidism PAST SURGICAL HISTORY 1959: APPENDECTOMY No date: APPENDECTOMY HX 2017: BACK SURGERY HX Comment: L3-5 Decompression and Fusion No date: CATARACT EXTRACTION HX; Bilateral 09/15/2016: COLONOSCOPY; N/A Comment: MAC 09/17/2016: EGD W/O [facility] SPEC VARICIES INJ 11/15/2022: EGD W/O [facility] SPEC VARICIES INJ No date: EPIDURAL SITE SPECIFY Comment: lumbar spine No date: EYE SURGERY HX 1976: PAST SURGICAL HISTORY OF Comment: thyroidectomy for toxic goiter No date: SKIN BIOPSY HX No date: TONSILLECTOMY HX No date: TONSILLECTOMY PRIMARY/SECONDARY <AGE 12 Comment: Tonsillectomy ALLERGIES Cymbalta [Duloxetine], Fosamax [Alendronate Sodium], Septra [Sulfamethoxazole-Trimethoprim], Sulfamethoxazole, Tramadol, Trimethoprim, and Bupropion MEDICATIONS Current Outpatient Medications Medication Sig nirmatrelvir tablet 300 mg (150 mg x 2) and ritonavir tablet 100 mg in a dose pack (PAXLOVID) Administer TWO pink nirmatrelvir 150 mg tablets and ONE white ritonavir 100 mg tablet for a total of three tablets twice daily. levothyroxine (LEVOXYL) 88 mcg tablet Take 1 tablet by mouth once daily. Take on empty stomach. ForThyroid clopidogrel (PLAVIX) 75 mg tablet Take 1 tablet by mouth once daily. [facility] ID: [id number] [email or web address] amitriptyline (ELAVIL) 10 mg tablet Take 2 tablets by mouth daily at bedtime. gabapentin (NEURONTIN) 100 mg capsule take two pills by mouth three times daily. QVAR REDIHALER 40 mcg/actuation inhaler Inhale 1 Puff as instructed two times a day. losartan (COZAAR) 50 mg tablet TAKE 1 & 1/2 (ONE & ONE-HALF) TABLETS BY MOUTH ONCE DAILY rosuvastatin (CRESTOR) 5 mg tablet Take 1 tablet by mouth once daily. guaifenesin/phenylephrine HCl (MUCINEX COLD ORAL) Take by mouth. albuterol HFA (VENTOLIN HFA) 90 mcg/actuation inhaler Inhale 2 Puffs as instructed every 4 hours asneeded for wheezing/shortness of breath. lidocaine (SALONPAS) 4 % patch Apply as directed once daily. denosumab (PROLIA) 60 mg/mL syrg Inject 60 mg subcutaneously one time only. acetaminophen (TYLENOL) 500 mg tablet Take 500 mg by mouth every 8 hours as needed. Current Facility-Administered Medications Medication Dose Route Frequency denosumab 60 mg injection (PROLIA) 60 mg SUBCUTANEOUS Q 6 MONTH FAMILY HISTORY Problem Relation Age of Onset Cerebral Embolism Mother Osteoporosis Mother other (spinal stenosis) Mother other (depression) Mother other (cva) Mother other (depression) Father other (tramatic brain syndrome) Father s/p MVA other (aplastic thyroid tumor) Sister Depression Brother Stroke Maternal Grandfather Colon Cancer No Family History Social History Tobacco Use Smoking status: Former Packs/day: 0.50 Years: 8.00 Additional pack years: 0.00 Total pack years: 4.00 Types: Cigarettes Smokeless tobacco: Never Tobacco comments: quit in 1969 Vaping Use Vaping Use: Never used Substance Use Topics Alcohol use: Yes Comment: 1-2 times per week Drug use: No EXAM: BP 148/92 Pulse 78 Temp 36.7 C (98 F) (Left Tympanic) Resp 16 SpO2 98% PHYSICAL EXAM: General Appearance: Well appearing, alert, in no acute distress, well-hydrated, well nourished.. Skin: Skin color, texture, turgor normal, no suspicious rashes or lesions. Head: Normocephalic, no masses, lesions, tenderness or abnormalities. Eyes: Anicteric sclera. Pupils are equally round and reactive to light. Extraocular movements are intact. . Lungs: few rales left base, otherwise CTA. Heart: RRR without murmur, gallop, or rubs. No ectopy. Neurologic: Gait normal. ASSESSMENT/PLAN: 1. COVID-19 - ICD9: 079.89, ICD10: U07.1 (primary diagnosis) Will get chest xray to r/o pneumonia. Start prednisone. - XR CHEST 2V FRONTAL/LAT - PREDNISONE 10 MG TABLET Patient aware that if she is not improving or having any worsening, to let provider know and consider adding on antibiotic therapy at that time. Pt is agreeable to plan. 2. Acute cough - ICD9: 786.2, ICD10: R05.1 Start prednisone. - PREDNISONE 10 MG TABLET - XR CHEST 2V FRONTAL/LAT Discussed treatment plan and patient voices understanding. Patient's questions answered appropriately. Medications and potential side effects were discussed and patient voices understanding. Return to the office as scheduled or as needed for worsening/no improvement. Angie Aguirre APRN.WEIGHT ANALYST documented in this encounterDiley Ridge Medical Center08-07-2024 Telephone encounter Note * Telephone Encounter - Samina Govea RN - 03/28/2024 9:07 AM EDT Informed patient via telephone of approval to hold Plavix for seven days prior to injection procedure. Last Dose: 04/02/2024 HOLD Doses: 04/03/2024 - 04/09/2024 Resume Doses: 04/10/2024 (after procedure) Patient verbalized understanding and voiced no additional questions/concerns. [facility]08-07-2024 Miscellaneous Notes* Telephone Encounter - Samina Govea RN - 03/28/2024 9:07 AM EDT Informed patient via telephone of approval to hold Plavix for seven days prior to injection procedure. Last Dose: 04/02/2024 HOLD Doses: 04/03/2024 - 04/09/2024 Resume Doses: 04/10/2024 (after procedure) Patient verbalized understanding and voiced no additional questions/concerns. * Telephone Encounter - Kimmy Davies MA - 03/27/2024 9:12 AM EDT Received fax back from patient's PCP. The patient is approved to hold Plavix for 7 days (starting 04/03/24) prior to the procedure on 04/10/24. Attempted to contact patient regarding message above. Left voice message for patient to return callto office. * Telephone Encounter - Kimmy Davies MA - 03/15/2024 11:09 AM EDT Procedure: Bilateral L5-S1 lumbar facet radiofrequency ablation Date: 04/10/24 Anticoagulation Clearance: Plavix - Required to be held for 7 days prior to the procedure. Letter has been generated and faxed to: Angie Aguirre APRN.Shameka Ortiz APRN.WEIGHT ANALYST [id number] [facility] [id number] Will await response. documented in this encounterDiley [facility]08-06-2024 Telephone encounter Note * Telephone Encounter - Angie Aguirre APRN.CNP - 03/27/2024 9:36 AM EDT Pt out of pain medication. We previously agreed with patient that she can take the vicodin sparingly for her chronic back pain. She is due for an appt and scheduled for tomorrow. Will go ahead and refill vicodin. [facility]08-06-2024 Miscellaneous Notes* Telephone Encounter - Angie Aguirre APRN.CNP - 03/27/2024 9:36 AM EDT Pt out of pain medication. We previously agreed with patient that she can take the vicodin sparingly for her chronic back pain. She is due for an appt and scheduled for tomorrow. Will go ahead and refill vicodin. documented in this encounterDiley [facility] Telephone encounter Note * Telephone Encounter - Kimmy Davies MA - 03/27/2024 9:12 AM EDT Received fax back from patient's PCP. The patient is approved to hold Plavix for 7 days (starting 04/03/24) prior to the procedure on 04/10/24. Attempted to contact patient regarding message above. Left voice message for patient to return callto office. [facility]07-30-2024 Telephone encounter Note* Telephone Encounter - Kimmy Davies MA - 03/20/2024 12:39 PM EDT Received a refill request via TRAKLOKt from the patient for the following medication(s): Requested Prescriptions Pending Prescriptions Disp Refills HYDROcodone-acetaminophen (NORCO) 5-325 mg per tablet 20 tablet 0 Sig: Take 1 tablet by mouth every 6 hours as needed for pain for up to 5 days. The pharmacy has been populated. The last time Klondike was prescribed by Quita Barth CNP was back on 09/12/23. Per OV on 09/12/23 with Quita Barth CNP: PLAN: Injection history was reviewed. Medication use and compliance were reviewed. 1. Reviewed procedural instructions 2. No meds prescribed today 3. Interventional procedure options discussed. Ordered and scheduled bilateral L5-S1 lumbar RFA 4. Continue PT and regular home exercise program. 5) F/U in 2 months. May prescribe Klondike as needed for a flare up The last prescription for Klondike was prescribed on 01/06/24 by PCP office. Opioid Treatment Agreement was signed by the patient and Angie Aguirre CNP on 01/02/24. Routed to the provider to review. [facility]07-30-2024 Miscellaneous Notes* Telephone Encounter - Kimmy Davies MA - 03/20/2024 12:39 PM EDT Received a refill request via TRAKLOKt from the patient for the following medication(s): Requested Prescriptions Pending Prescriptions Disp Refills HYDROcodone-acetaminophen (NORCO) 5-325 mg per tablet 20 tablet 0 Sig: Take 1 tablet by mouth every 6 hours as needed for pain for up to 5 days. The pharmacy has been populated. The last time Klondike was prescribed by Quita Barth CNP was back on 09/12/23. Per OV on 09/12/23 with Quita Barth CNP: PLAN: Injection history was reviewed. Medication use and compliance were reviewed. 1. Reviewed procedural instructions 2. No meds prescribed today 3. Interventional procedure options discussed. Ordered and scheduled bilateral L5-S1 lumbar RFA 4. Continue PT and regular home exercise program. 5) F/U in 2 months. May prescribe Klondike as needed for a flare up The last prescription for Klondike was prescribed on 01/06/24 by PCP office. Opioid Treatment Agreement was signed by the patient and Angie Aguirre CNP on 01/02/24. Routed to the provider to review. documented in this encounterDiley [facility] History of Present illness Narrative* Karmen Amador PT - 03/19/2024 2:18 PM EDT Episode Visit Count: 12 Therapist That Will Accept/Oversee The Plan Of Care: Karmen Amador Start of Care Date: 12/06/23 Onset Date: 11/21/23 Plan of Care Certification Date: 03/05/24 Next Certification Due Date: 05/06/24 REHABILITATION AND SPORTS THERAPY PHYSICAL THERAPY TREATMENT NOTE ASSESSMENT: Chiara Croft tolerated the session with decreased symptoms. She demonstrated difficulty with R gluteal pain. The patient will continue to benefit from ongoing skilled physical therapy to progress toward set goals. PLAN FOR NEXT VISIT: Assess carry over of needling plus TENS today SUBJECTIVE: Patient had a rough couple days Fri and Sat. Calmed some yesterday and today, but stillvery sore in the R buttocks Pain: Pain Pain Level: 3 Pain Location: Buttocks - Right Description: Sore Frequency: Intermittent OBJECTIVE MEASURES WITH LEVEL OF FUNCTION: Tenderness noted to R glute med and min upon palpation TREATMENT: Manual Therapy: 1: STM and TrPr to R QL and glute med with push to tolerance Dry Needling: (2) 75 mm needles to R glute min with placement of needle only, (2) 60 mm needles to R glute med with placement of needles only plus TENS. 10 Hz, leads 1 and 2 3.0-3.5 V x10 min Skilled Intervention: Manual skills to improve joint mobility, ROM, and decrease pain. Utilized anatomy knowledge of the therapist, and assessment of patient's response to intervention. Billing Manual TherapyTreatment Minutes: 43 Skilled Treatment Time Minutes (timed and untimed codes): 43 Total Session Time (minutes): 43 Session Start Time : 944 Session Stop Time : 1027 Karmen Amador PT documented in this encounterDiley [facility]07[facility] Telephone encounter Note * Telephone Encounter - Kimmy Davies MA - 03/15/2024 11:09 AM EDT Procedure: Bilateral L5-S1 lumbar facet radiofrequency ablation Date: 04/10/24 Anticoagulation Clearance: Plavix - Required to be held for 7 days prior to the procedure. Letter has been generated and faxed to: Angie Aguirre APRN.CNP Suppan, Jacqueline A, APRN.CNP [id number] [facility] [id number] Will await response. [facility]07-25-2024 History of Present illness Narrative* Quita Barth APRN.SAURABH - 03/15/2024 9:03 AM EDT Images from the original note were not included. Subjective Chiara Croft presents to [facility] for a follow up appointment. Since the last visit, Chiara Croft states the pain has been worsening. Current pain intensity is4 on a scale of 0-10. Pain located in lower back area. Pain described as aching, burning, dull, pressure, sharp, stiff, spasm, and cramping Symptoms interfere with physical activity. Pain is exacerbated by unable to pinpoint exacerbating factors/positions. Pain is mitigated by medication, distractions, exercise, heat, and massage. The patient is overall improved with the injections by 85%. Patient Entered Questionnaires PROMIS Score Percentiles 08/27/2023 12/05/2023 03/03/2024 PROMIS Global Health Scale Physical Health Percentile 15 10 22* Mental Health Percentile 19* 43 43 01/05/2024 02/22/2024 03/08/2024 Physical Health Physical Function Percentile 8 8 Pain Interference Percentile 4 Percentiles provide an indication of how the patient's score ranks in relation to the general population. Higher percentile rankings indicate better function/quality of life. 50th percentile is the average of the general population and indicates half of respondents had a worse score. > 31st percentile is within normal limits or better * < 31st percentile is at least SD worse than population, which may be clinically relevant < 16th percentile is at least 1 SD worse than population and warrants attention Review of Systems Constitutional: (-) Weight Gain (-) Weight Loss (-) Fatigue Cardiovascular: (-) hx heart surgery (-) Pacemaker Respiratory: (-) Shortness of Breath (-) Cough (-) Snoring Gastrointestinal: (-) Incontinence (-) Diarrhea (-) Constipation (-) Nausea/Vomiting Endocrine: (+) Thyroid Disorder (-) Diabetes Hematologic: (-) Prolonged Bleeding (-) Easy Bruising Genitourinary: (-) Incontinence (-) Frequency (-) Urinary Urgency Skin: (-) Open sores/wound Neurologic: (-) Headache (-) Double Vision Psychiatric: (-) Depression (-) Anxiety (-) Personal History of Alcohol or Substance Abuse (+) Family History of Alcohol or Substance Abuse Chief Complaint Patient presents with: Back Pain Injection Followup Physical Examination Pulse 73 Wt 147 lb 7.8 oz (66.9kg) SpO2 100% General:alert Skin: Skin color, texture, turgor normal, no rashes or lesions HEENT: normal Cardiovascular: Regular, rate and rhythm Lungs: Normal respiratory rate and rhythm, unlabored on room air Musculoskeletal: Back: Tenderness on palpation over the lumbar spine. , Tenderness over the bilateral lumbar facets,Pain reproduced with flexion of the lumbar spine., Pain reproduced with extension of the lumbar spine. , pos facet loading Extremities: Normal exam of the extremities Neurological: Mental Status: alert Gait: Antalgic. Assessment Assessment : Encounter Diagnosis ICD-10-CM 1. Lumbar facet arthropathy M47.816 XR LUMBAR PARS DEFECT 4V AP/LAT/BOTH OBL DSTR NROLYTC AGNT PARVERTEB FCT SNGL LMBR/SACRAL DSTR NROLYTC AGNT PARVERTEB FCT ADDL LMBR/SACRAL 2. Lumbar spondylosis M47.816 XR LUMBAR PARS DEFECT 4V AP/LAT/BOTH OBL DSTR NROLYTC AGNT PARVERTEB FCT SNGL LMBR/SACRAL DSTR NROLYTC AGNT PARVERTEB FCT ADDL LMBR/SACRAL 3. Myofascial pain syndrome of lumbar spine M79.18 4. History of lumbar spinal fusion Z98.1 5. Postlaminectomy syndrome M96.1 Patient presents for injection follow up She had bilateral L5-S1 RFA in 09/2023 with 80-85% improvement She reports her pain has returned and she would like to repeat the RFA She is involved in PT and dry needling and continues to do her exercises and strengthen stretches Hx of fusion at L3-4 and L4-5 She has been doing massage therapy and heat She takes norco prn, robaxin and just started elavil Stopped gabapentin due to SE of fogginess Medical Indications: Facet joint interventions are considered medically reasonable and necessary for the diagnosis and treatment of chronic pain in this patient because they meet ALL of the following criteria: (all MUST be present) Moderate to severe chronic neck or low back pain, predominantly axial, that causes functional deficit measured on a pain OR a disability scale Pain has been present for > 3 months with documented failure to respond to noninvasive conservative treatments (as tolerated) Absence of untreated radiculopathy or neurogenic claudication (except if caused by synovial cyst) There is no non-facet pathology by clinical assessment or radiology study that could explain the source of pain such as fracture, tumor, infection, or deformity Disability Assessment: A disability scale was completed by the patient at baseline. Scale used: PROMIS Profile Date completed: 03-03-2024 See below Intervention: This is a facet joint RFA (denervation) and (all must be present): The patient had 2 medically reasonable and necessary diagnostics MBBs, each one providing a consistent minimum of 80% sustainable relief of primary pain (with the duration consistent with the agent used). There have been no more than 2 radiofrequency sessions per rolling 12 months per spinal region. Repeat thermal facet joint RFA at the same anatomic site is considered medically reasonable and necessary provided the patient had a minimum and consistent 50% improvement in pain for at least 6 months or at least 50% improvement in the ability to perform previously painful movements and ADLs as compared to baseline using the same scale. 03/08/2024 PROMIS CAT Pain Interference PROMIS Pain Interference T-Score (range: 10 - 90) 67 (moderate) PROMIS Pain Interference Percentile 4 Descriptive Summary for PROMIS Physical Function T-score = 36 (Percentile 8) Much difficulty - Carry a laundry basket up a flight of stairs. Some difficulty - Walk at a normal speed. Unable - Walk more than a mile (1.6 km). OARRS Report: Reviewed: The patient's OARRS report was reviewed and is consistent with the reportedmedication use. Urine Panel: Lab Results Component Value Date Cannabinoid Quant, Urine <16 01/02/2024 Benzoylecgonine Quant, Urine <24 01/02/2024 6-Acetylmorphine Quant, Urine <5 01/02/2024 Amphetamine Quant, Urine <01/02/2024 Methamphetamine Quant, Urine <8 01/02/2024 Buprenorphine Quant, Urine <20 01/02/2024 Norbuprenorphine Quant, Urine <20 01/02/2024 Methadone Quant, Urine <16 01/02/2024 EDDP Quant, Urine <01/02/2024 Tramadol Quant, Urine <25 01/02/2024 Desmethyltramadol Quant, Urine <20 01/02/2024 Fentanyl Quant, Urine <6 01/02/2024 Norfentanyl Quant, Urine <01/02/2024 Codeine Quant, Urine <11 01/02/2024 Morphine Quant, Urine <10 01/02/2024 Dihydrocodeine Quant, Urine <5 01/02/2024 Hydrocodone Quant, Urine <8 01/02/2024 Oxycodone Quant, Urine <10 01/02/2024 Hydromorphone Quant, Urine <5 01/02/2024 Oxymorphone Quant, Urine <5 01/02/2024 Plan Injection history was reviewed. Medication use and compliance were reviewed. 1. Reviewed procedural instructions. Handout given 2. Continue medication through current prescriber 3. Interventional procedure options discussed. Ordered and schedule repeat RFA 4. Continue regular home exercise program. 5) F/U in 6 weeks The level of medical decision making for this encounter was low level. I spent a total of 25 minutes on the date of the service which included preparing to see the patient, [id number] patient care, completing clinical documentation, performing a medically appropriate examination, ordering medications, tests, or procedures, and care coordination (not separately report ed). 1. This document has been created with the use of voice recognition technology. It may contain inaccuracies: (e.g. misspellings, inaccurate syntax or word sense) that have escaped review. 2. The physician, nursing staff and medical assistants are a major part of YOUR TREATMENT TEAM and will be handling your phone calls and inquiries, if any. Unless explicitly told otherwise at the time of your office visit, your study results and ensuing treatment plans will be discussed during yourfollow-up appointment. If you do not have a follow-up appointment and wish to discuss any issues, please set up an appointment. 3. It is my practice to not fill disability or any other insurance-related forms/documentation. Allof the office notes, study results, and other pertinent documentation generated as part of your evaluation will be available to you and to your Primary Care Physician (PCP). Use of this material to complete such forms will be at the discretion of your PCP/referring physician. The above plan and management options were discussed at length with patient. Patient is in agreement with the above and verbalized understanding. Quita Barth APRN, SAURABH March 15, 2024 documented in this encounterDiley [facility]07[facility] History of Present illness Narrative* Karmen Amador, PT - 03/13/2024 3:14 PM EDT Episode Visit Count: 11 Therapist That Will Accept/Oversee The Plan Of Care: Karmen Amador Start of Care Date: 12/06/23 Onset Date: 11/21/23 Plan of Care Certification Date: 03/05/24 Next Certification Due Date: 05/06/24 REHABILITATION AND SPORTS THERAPY PHYSICAL THERAPY TREATMENT NOTE ASSESSMENT: Chiara Croft tolerated the session with fatigue and no issues. She demonstrated improvements in pain and tolerance for activity. The patient will continue to benefit from ongoing skilled physical therapy to progress toward set goals. PLAN FOR NEXT VISIT: Continue exercise progression per tolerance, needling PRN SUBJECTIVE: 2-3 days of soreness following needling last session, but her pain is very much improved. Pain: Pain Pain Level: 1 Pain Location: Buttocks - Right Description: Sore Frequency: Intermittent OBJECTIVE MEASURES WITH LEVEL OF FUNCTION: TREATMENT: Therapeutic Exercise: 1: Knee to opposite shoulder piriformis stretch 3x30 sec/side 2: PPT 3x10, 5 sec hold 3: PPT plus marching x10/side 4: SL hip abduction 2x10 (R only today) 5: PiTB hooklying clamshells 3x10 6: SLR 3x10 Skilled Intervention: Patient was educated in proper exercise technique and purpose for exercises. Skilled judgment was used in selection of appropriate interventions. Correct performance of therapeutic exercises was facilitated with verbal and visual cuing. Billing Therapeutic Exercise Treatment Minutes: 30 Skilled Treatment Time Minutes (timed and untimed codes): 30 Total Session Time (minutes): 30 Session Start Time : 1615 Session Stop Time : 1644 Karmen Amador PT * Karmen Amador PT - 03/12/2024 4:36 PM EDT Program_ID:[id number] Access Code: [email or web address] URL: [email or web address] Date: 03-12-2024 Prepared By: George Tucker Program Notes Exercises - Supine Piriformis Stretch with Foot on Ground - 3 x daily - 7 x weekly - 1 sets - 3 reps - Supine Posterior Pelvic Tilt - 1 x daily - 7 x weekly - 3 sets - 10 reps - Hooklying Sequential Leg March and Lower - 1 x daily - 7 x weekly - 3 sets - 10 reps - Sidelying Hip Abduction - 1 x daily - 7 x weekly - 3 sets - 10 reps - Hooklying Clamshell with Resistance - 1 x daily - 7 x weekly - 3 sets - 10 reps - Active Straight Leg Raise with Quad Set - 1 x daily - 7 x weekly - 3 sets - 10 reps documented in this encounterDiley [facility]07-[facility] History of Present illness Narrative* Valentine Munoz LPN - 03/13/2024 8:59 AM EDT Patient presents for Prolia injection. Denies any problems at this time. Patient instructed on any SE of medication, verbalized understanding and agreed to proceed with treatment. Tolerated injectionwell. Valentine Munoz LPN documented in this encounterDiley [facility]07-17-2024 History of Present illness Narrative* Karmen Amador PT - 03/07/2024 3:51 PM EDT Images from the original note were not included. Episode Visit Count: 10 Therapist That Will Accept/Oversee The Plan Of Care: Karmen Perry Start of Care Date: 12/06/23 Onset Date: 11/21/23 Plan of Care Certification Date: 03/05/24 Next Certification Due Date: 05/06/24 REHABILITATION AND SPORTS THERAPY PHYSICAL THERAPY PROGRESS REPORT PLAN OF CARE UPDATE: Assessment: Chiara Croft demonstrates difficulty with heavy exertion. She has progressed toward goals. Patient continues to present with impairments in ADL's, symptom management, and tissue tenderness that interfere with . Current prognosis is Good due to: current objective clinical presentation, good overall health status, positive past response to therapy, good support system/ coping skills . She will benefit from continued skilled therapy services to meet the updated goals for this plan of care as noted below. Goals updated on 03/05/2024. Goals for Episode of Care: created on 12/06/23 through 05/07/24 Independent in home exercises. Met Patient will decrease pain rating by 2 points to meet minimal clinical important difference for numeric pain rating scale. Partially met Restore pain-free lumbar ROM to WNL to allow for pain free functional ADLs Stand / Walk community distances without pain/symptoms. Progressing Sleep through night without pain/symptoms. Progressing Sit 45 minutes minutes without pain/symptoms to allow for comfortable sitting arrangements and improved overall QoL. Progressing Maintain proper sitting posture throughout session. Met Patient will increase strength of hip flexion, aBd, knee extension to 4+/5 to allow for improve ability to complete ADLs. Progressing Patient Goals: Reduce pain and be able to complete functional ADLs w/o pain Planned Interventions, Frequency, and Duration: 1x/week, 4 weeks Total Number of Visits Planned: 4 Patient to be seen for Therapeutic exercise (22594), Neuromuscular re-education (76893), Manual therapy (01548), Therapeutic activities (32685), Self-shelter management (91096), Patient/Family/Caregiver Education, Body Mechanics Training PLAN FOR NEXT VISIT: Needling as needling, progressing towards strengthening SUBJECTIVE: Patient did well until the end of her vacation when she had a bad flare while driving home. She has been able to get it to settle some with the exercises, but still sore and feels like itis on edge. Pain: Pain Pain Level: 4 Pain Location: Buttocks - Right Description: Sore Frequency: Intermittent PROMIS Scales 02/22/2024 01/05/2024 12/05/2023 Higher is Better Phys Func - Score 36 (moderate dysfunction) 36 (moderate dysfunction) 39 (moderate dysfunction) Phys Func - Percentile 8 8 14 Self-Eff Symptom - Score 37 (Low) 41 (Average) 35 (Low) Self-Eff Symptom - Percentile 10 18 7 T-scores: mean of general population = 50. 5 points is clinically meaningfully difference Percentiles provide an indication of how the patient's score ranks in relation to the general population. Higher percentile rankings indicate better function/quality of life. 50th percentile is the average of the general population and indicates half of respondents had a worse score. OBJECTIVE MEASURES WITH LEVEL OF FUNCTION: Spine Observations R Lumbar Spine Palpation Tenderness: Gluteals Lumbar Spine AROM Lumbar Flexion: Normal Lumbar Extension: Moderate limitation Lumbar R Side-Bend: Normal Lumbar L Side-Bend: Normal Lumbar R Rotation: Normal Lumbar L Rotation: Normal LE Strength Trunk Strength: 4/5 grossly Special Tests - Hip and Spine SLR Test: Right Positive TREATMENT: Therapeutic Exercise: 1: Knee to opposite shoulder piriformis stretch 3x30 sec/side 2: PPT 3x10, 5 sec hold 3: PPT plus marching x10/side 4: DKC 6x30 sec holds 5: Objective measures obtained Skilled Intervention: Patient was educated in proper exercise technique and purpose for exercises. Skilled judgment was used in selection of appropriate interventions. Provided written instruction for home exercise program to facilitate proper performance and compliance. Correct performance of therapeutic exercises was facilitated with verbal, visual, and tactile cuing. Manual Therapy: 1: STM and TrPr to R QL and glute med with push to tolerance Dry Needling: (2) 75 mm needles to R glute med with psitoning and fanning Skilled Intervention: Manual skills to improve joint mobility, ROM, and decrease pain. Utilized anatomy knowledge of the therapist, and assessment of patient's response to intervention. Billing Therapeutic Exercise Treatment Minutes: 23 Manual TherapyTreatment Minutes: 20 Skilled Treatment Time Minutes (timed and untimed codes): 43 Total Session Time (minutes): 43 Session Start Time : 1215 Session Stop Time : 1258 Karmen Amador PT documented in this encounterDiley [facility]07-17-2024 Telephone encounter Note * Telephone Encounter - Zheng Tse LPN - 03/07/2024 2:55 PM EDT Prescription Refill Information The patient has been identified by name and date of : Yes Caregiver verified no other encounters exist for this prescription request: Yes Caregiver confirmed with patient/requestor that no other refills are due, in the near future, with this provider at this time: Yes The last office visit in the department: 01/02/24 Does the patient have a future office visit with this provider/department: No Requested Prescriptions Pending Prescriptions Disp Refills levothyroxine (LEVOXYL) 88 mcg tablet 90 tablet 3 Sig: Take 1 tablet by mouth once daily. Take on empty stomach. For Thyroid Zheng Tse LPN March 07, 2024 2:57 PM [facility]07-17-2024 Miscellaneous Notes* Telephone Encounter - Zheng Tse LPN - 03/07/2024 2:55 PM EDT Prescription Refill Information The patient has been identified by name and date of : Yes Caregiver verified no other encounters exist for this prescription request: Yes Caregiver confirmed with patient/requestor that no other refills are due, in the near future, with this provider at this time: Yes The last office visit in the department: 01/02/24 Does the patient have a future office visit with this provider/department: No Requested Prescriptions Pending Prescriptions Disp Refills levothyroxine (LEVOXYL) 88 mcg tablet 90 tablet 3 Sig: Take 1 tablet by mouth once daily. Take on empty stomach. For Thyroid Zheng Tse LPN March 07, 2024 2:57 PM documented in this encounterDiley [facility]07-[facility]-20[facility] Telephone encounter Note * Telephone Encounter - Sarai Gutiérrez LPN - 03/01/2024 4:00 PM EDT Spoke with pt and information listed below given. Pt verbalizes understanding. Sarai Gutiérrez LPN [facility]07-11-2024 Miscellaneous Notes* Telephone Encounter - Sarai Gutiérrez LPN - 03/01/2024 4:00 PM EDT Spoke with pt and information listed below given. Pt verbalizes understanding. Sarai Gutiérrez LPN * Telephone Encounter - Shameka Mccarty APRN.CNP - 03/01/2024 3:47 PM EDT Clopidogrel [facility] Telephone encounter Note * Telephone Encounter - Shameka Mccarty APRN.CNP - 03/01/2024 3:47 PM EDT Clopidogrel sent to [facility]07-10[facility] Telephone encounter Note* Telephone Encounter - Jesi Parikh LPN - 02/29/2024 7:29 AM EDT [place]- [facility]07-10-2024 Miscellaneous Notes* Telephone Encounter - Jesi Parikh LPN - 02/29/2024 7:29 AM EDT [place]- documented in [facility]24 Telephone encounter Note * Telephone Encounter - Zheng Tse LPN - 02/27/2024 8:58 AM EDT Prescription Refill Information The patient has been identified by name and date of : Yes Caregiver verified no other encounters exist for this prescription request: Yes Caregiver confirmed with patient/requestor that no other refills are due, in the near future, with this provider at this time: Yes The last office visit in the department: 01/02/24 Does the patient have a future office visit with this provider/department: No Requested Prescriptions Pending Prescriptions Disp Refills amitriptyline (ELAVIL) 10 mg tablet 60 tablet 2 Sig: Take 2 tablets by mouth daily at bedtime. *Last rx written 01/26/24 #60 with 2 refills. Pt not due for refills. MC message to pt advising of the same. Zheng Tse LPN February 27, 2024 8:58 AM [facility]07-08-[facility] Miscellaneous Notes* Telephone Encounter - Zheng Tse LPN - 02/27/2024 8:58 AM EDT Prescription Refill Information The patient has been identified by name and date of : Yes Caregiver verified no other encounters exist for this prescription request: Yes Caregiver confirmed with patient/requestor that no other refills are due, in the near future, with this provider at this time: Yes The last office visit in the department: 01/02/24 Does the patient have a future office visit with this provider/department: No Requested Prescriptions Pending Prescriptions Disp Refills amitriptyline (ELAVIL) 10 mg tablet 60 tablet 2 Sig: Take 2 tablets by mouth daily at bedtime. *Last rx written 01/26/24 #60 with 2 refills. Pt not due for refills. MC message to pt advising of the same. Zheng Tse LPN February 27, 2024 8:58 AM documented in [facility]24 Telephone encounter Note * Telephone Encounter - Angie Aguirre APRN.WEIGHT ANALYST - 02/20/2024 12:16 PM EDT Order signed. [facility]07-01-[facility] Miscellaneous Notes* Telephone Encounter - Angie Aguirre APRN.CNP - 02/20/2024 12:16 PM EDT Order signed. * Telephone Encounter - Valentine Munoz LPN - 02/20/2024 10:58 AM EDT Patient scheduled for nurse visit 03/13/24 to receive Prolia injection. Please place order at this time. Valentine Munoz LPN documented in this encounterD[facility]07-01-2024 Telephone encounter Note * Telephone Encounter - Valentine Munoz LPN - 02/20/2024 10:58 AM EDT Patient scheduled for nurse visit 03/13/24 to receive Prolia injection. Please place order at this time. Valentine Munoz LPN [facility]06-11-2024 History of Present illness Narrative* Karmen Amador, LALO - 01/31/2024 2:17 PM EDT Images from the original note were not included. Episode Visit Count: 9 Therapist That Will Accept/Oversee The Plan Of Care: Karmen Amador Start of Care Date: 12/06/23 Onset Date: 11/21/23 Plan of Care Certification Date: 12/06/23 Next Certification Due Date: 02/05/24 REHABILITATION AND SPORTS THERAPY PHYSICAL THERAPY PROGRESS REPORT PLAN OF CARE UPDATE: Assessment: Chiara Croft demonstrates moderate improvement in sitting, rising from a chair, standing, and walking. She has progressed toward goals. Patient continues to present with impairments in ADL's, overall function, range of motion, strength, symptom management, and tissue tenderness that interfere with standing, walking, bending, heavy exertion, sitting, rising from a chair, lifting, physical activities, recreational activities . Current prognosis is Good due to: current objective clinical presentation, good overall health status, positive past response to therapy, good support system/ coping skills . She will benefit from continued skilled therapy services to meet the updated goals for this plan of care as noted below. Goals updated on 01/31/2024. Goals for Episode of Care: created on 12/06/23 through 03/06/24 Independent in home exercises. Met Patient will decrease pain rating by 2 points to meet minimal clinical important difference for numeric pain rating scale. Partially met Restore pain-free lumbar ROM to WNL to allow for pain free functional ADLs Stand / Walk community distances without pain/symptoms. Progressing Sleep through night without pain/symptoms. Progressing Sit 45 minutes minutes without pain/symptoms to allow for comfortable sitting arrangements and improved overall QoL. Progressing Maintain proper sitting posture throughout session. Met Patient will increase strength of hip flexion, aBd, knee extension to 4+/5 to allow for improve ability to complete ADLs. Progressing Patient Goals: Reduce pain and be able to complete functional ADLs w/o pain Planned Interventions, Frequency, and Duration: 1x/month, 4 weeks Total Number of Visits Planned: 1 Patient to be seen for Therapeutic exercise (50894), Neuromuscular re-education (65287), Manual therapy (59213), Therapeutic activities (96556), Self-shelter management (81511), Gait Training (28132), Patient/Family/Caregiver Education, Body Mechanics Training PLAN FOR NEXT VISIT: GA in 1 month to monitor tolerance for self management of symtoms with exercises and self awareness SUBJECTIVE: Overall patient doing much better. Notes some soreness across her R lower back/ upper buttocks area. The radicular pain she was having is gone and feels under control. Her activity is much improved, but if she over does it, she can feel an increase in symptoms. Functional Limitations: standing, walking, bending, heavy exertion, sitting, rising from a chair, lifting, physical activities, recreational activities Pain: Pain Pain Level: 2 Pain Location: Buttocks - Right Description: Sore Frequency: Intermittent PROMIS Scales 01/05/2024 12/05/2023 11/01/2023 Higher is Better Phys Func - Score 36 (moderate dysfunction) 39 (moderate dysfunction) 34 (moderate dysfunction) Phys Func - Percentile 8 14 5 Self-Eff Symptom - Score 41 (Average) 35 (Low) 41 (Average) Self-Eff Symptom - Percentile 18 7 18 T-scores: mean of general population = 50. 5 points is clinically meaningfully difference Percentiles provide an indication of how the patient's score ranks in relation to the general population. Higher percentile rankings indicate better function/quality of life. 50th percentile is the average of the general population and indicates half of respondents had a worse score. OBJECTIVE MEASURES WITH LEVEL OF FUNCTION: LE Strength Trunk Strength: 4/5 grossly Special Tests - Hip and Spine SLR Test: Right Positive TREATMENT: Therapeutic Exercise: 1: Knee to opposite shoulder piriformis stretch 3x30 sec/side 2: PPT 3x10, 5 sec hold 3: PPT plus marching x10/side 4: DKC 6x30 sec holds Skilled Intervention: Patient was educated in proper exercise technique and purpose for exercises. Skilled judgment was used in selection of appropriate interventions. Provided written instruction for home exercise program to facilitate proper performance and compliance. Correct performance of therapeutic exercises was facilitated with verbal, visual, and tactile cuing. Educated patient on rationale for performing exercises in regards to improving fitness, increase ease of ADL, and ROM and function . Self-Long Term Management: 1: Spent time with spine model showing patient purpose of exercises and why pushing too hard could increase symptoms vs decrease. Discussed ways she could modify exercises and to never push into pain Skilled Intervention: Skilled judgment in the selection of proper modification for activity of daily living/home management based on clinical presentation, deficits, and needs. Reviewed patient specific diagnosis in relation to activities of daily living/home management. Activity progression based on professional judgement. Billing Therapeutic Exercise Treatment Minutes: 25 Self-Care/Home Management Treatment Minutes: 15 Skilled Treatment Time Minutes (timed and untimed codes): 40 Total Session Time (minutes): 40 Session Start Time : 914 Session Stop Time : 954 Karmen Amador PT * Karmen Amador PT - 01/31/2024 9:47 AM EDT Program_ID:[id number] Access Code: [email or web address] URL: [email or web address] Date: 01-31-2024 Prepared By: George Tucker Program Notes Exercises - Supine Piriformis Stretch with Foot on Ground - 3 x daily - 7 x weekly - 1 sets - 3 reps - Supine Posterior Pelvic Tilt - 1 x daily - 7 x weekly - 3 sets - 10 reps - Hooklying Sequential Leg March and Lower - 1 x daily - 7 x weekly - 3 sets - 10 reps - Supine Double Knee to Chest - 1 x daily - 7 x weekly - 3 sets - 3 reps documented in this encounterD[facility]06-07-[facility]24 History of Present illness Narrative* Karmen Amador, PT - 01/27/2024 1:23 PM EDT Episode Visit Count: 8 Therapist That Will Accept/Oversee The Plan Of Care: Karmen Amador Start of Care Date: 12/06/23 Onset Date: 11/21/23 Plan of Care Certification Date: 12/06/23 Next Certification Due Date: 02/05/24 REHABILITATION AND SPORTS THERAPY PHYSICAL THERAPY TREATMENT NOTE ASSESSMENT: Chiara Croft tolerated the session with fatigue and no issues. She demonstrated improvements in hip and back pain. The patient will continue to benefit from ongoing skilled physical therapy to progress toward set goals. PLAN FOR NEXT VISIT: GA SUBJECTIVE: Patient doing much better today, but sore and tender to the touch in the spot we dry needled last time. Notes significant relief in that area, though Pain: Pain Pain Level: 3 Pain Location: Buttocks - Right Description: Sore Frequency: Intermittent OBJECTIVE MEASURES WITH LEVEL OF FUNCTION: TREATMENT: Therapeutic Exercise: 1: *Knee to opposite shoulder piriformis stretch 3x30 sec/side 2: PPT 3x10, 5 sec hold 3: *PPT plus marching x10/side 4: QL stretch 3x30 sec/side 5: SKC and DKC increased pain today, ceased Skilled Intervention: Patient was educated in proper exercise technique and purpose for exercises. Skilled judgment was used in selection of appropriate interventions. Provided written instruction for home exercise program to facilitate proper performance and compliance. Correct performance of therapeutic exercises was facilitated with verbal, visual, and tactile cuing. Billing Therapeutic Exercise Treatment Minutes: 30 Skilled Treatment Time Minutes (timed and untimed codes): 30 Total Session Time (minutes): 30 Session Start Time : 1115 Session Stop Time : 1145 Karmen Amaodr PT * Karmen Amador PT - 01/27/2024 11:34 AM EDT Program_ID:[id number] Access Code: [email or web address] URL: [email or web address] Date: 01-27-2024 Prepared By: George Tucker Program Notes Exercises - Supine Piriformis Stretch with Foot on Ground - 3 x daily - 7 x weekly - 1 sets - 3 reps - Supine Quadratus Lumborum Stretch - 1 x daily - 7 x weekly - 1 sets - 3 reps - Supine Posterior Pelvic Tilt - 1 x daily - 7 x weekly - 3 sets - 10 reps - Hooklying Sequential Leg March and Lower - 1 x daily - 7 x weekly - 3 sets - 10 reps documented in this encounterD[facility]06-07-2024 History of Present illness Narrative* Salo Baird MD - 01/27/2024 12:08 PM EDT Patient presents with: Cough: Chest congestion, RINALDI, sinus pain and pressure x3 weeks, x4 days worse HPI: Feeling sick for 3 weeks and worsening Positive symptoms: Cough, Wheezing, Sinus pressure, Headache, Rhinorrhea, right ear clogged sometimes, night sweats Negative symptoms: Sore throat, Fever, Chills, Body Aches, OTC: albuterol 2-3x/d, mucinex, qvar PAST MEDICAL HISTORY Diagnosis Date Abdominal pain Arthritis Asthma Degenerative disc disease Depression Disorder of bone and cartilage, unspecified History of transfusion HTN (hypertension) Hypothyroid Intrinsic asthma Mixed hyperlipidemia Hyperlipidemia Osteoarthrosis, unspecified whether generalized or localized, other specified sites PMH - PAST MEDICAL HISTORY OF CVA with weakness left side PMH - PAST MEDICAL HISTORY OF 2000 left cervical radiculopathy PMH - PAST MEDICAL HISTORY OF 2003 right rib fracture PMH - PAST MEDICAL HISTORY OF 2005 right shoulder impingement syndrome Spinal stenosis Stroke (HCC) 2005 Unspecified hypothyroidism MEDICATIONS: Current Outpatient Medications Medication Sig amitriptyline (ELAVIL) 10 mg tablet Take 2 tablets by mouth daily at bedtime. gabapentin (NEURONTIN) 100 mg capsule take two pills by mouth three times daily. methocarbamol (ROBAXIN) 500 mg tablet Take 1 tablet by mouth two times a day as needed. QVAR REDIHALER 40 mcg/actuation inhaler Inhale 1 Puff as instructed two times a day. losartan (COZAAR) 50 mg tablet TAKE 1 & 1/2 (ONE & ONE-HALF) TABLETS BY MOUTH ONCE DAILY clopidogrel (PLAVIX) 75 mg tablet Take 1 tablet by mouth once daily. [facility] ID: [id number] [email or web address] rosuvastatin (CRESTOR) 5 mg tablet Take 1 tablet by mouth once daily. guaifenesin/phenylephrine HCl (MUCINEX COLD ORAL) Take by mouth. L. rhamnosus GG/inulin (CULTURELLE DIGESTIVE HEALTH ORAL) Take 1 tablet by mouth once daily. levothyroxine (LEVOXYL) 88 mcg tablet Take 1 tablet by mouth once daily. Take on empty stomach. ForThyroid albuterol HFA (VENTOLIN HFA) 90 mcg/actuation inhaler Inhale 2 Puffs as instructed every 4 hours asneeded for wheezing/shortness of breath. lidocaine (SALONPAS) 4 % patch Apply as directed once daily. denosumab (PROLIA) 60 mg/mL syrg Inject 60 mg subcutaneously one time only. acetaminophen (TYLENOL) 500 mg tablet Take 500 mg by mouth every 8 hours as needed. No current facility-administered medications for this visit. ALLERGIES: ALLERGIES Allergen Reactions Cymbalta [Duloxetin* Other: See Comments Tremor Fosamax [Alendronat* Intolerance Reflux Septra [Sulfamethox* Hives swelling and SOB Sulfamethoxazole Hives Tramadol Other: See Comments Tremor Trimethoprim Hives Bupropion Other: See Comments VITALS: BP 151/79 Pulse 77 Temp 36.6 C (97.8 F) Resp 18 Wt 66.8 kg (147 lb 4.3 oz) SpO2 99% BMI26.09 kg/m PHYSICAL EXAM: GEN: mildly ill appearing HEENT: PERRL, EOMI, conjunctiva clear Ears: canals occluded by cerumen Sinuses: pressure over frontal and maxillary sinuses Throat: moist mucous membranes, no erythema, no exudate Neck: supple, no thyromegaly, no lymphadenopathy HEART: regular rate and rhythm, no murmurs LUNGS: clear to auscultation, no wheezes or crackles, no increased WOB; tight cough ASSESSMENT/PLAN: 1. Asthma with acute exacerbation, unspecified asthma severity, unspecified whether persistent - ICD9: 493.92, ICD10: J45.901 (primary diagnosis) - PREDNISONE 10 MG TABLET taper Continue albuterol as needed 2. Acute non-recurrent sinusitis, unspecified location - ICD9: 461.9, ICD10: J01.90 - DOXYCYCLINE HYCLATE 100 MG TABLET Salo Baird MD documented in this [facility]06-[facility] History of Present illness Narrative* Karmen Amador, PT - 01/25/2024 3:22 PM EDT Episode Visit Count: 7 Therapist That Will Accept/Oversee The Plan Of Care: Karmenceci Amador Start of Care Date: 12/06/23 Onset Date: 11/21/23 Plan of Care Certification Date: 12/06/23 Next Certification Due Date: 02/05/24 REHABILITATION AND SPORTS THERAPY PHYSICAL THERAPY TREATMENT NOTE ASSESSMENT: Chiara Croft tolerated the session with decreased symptoms and expected muscle soreness. She demonstrated improvements in hip pain and general mobility. The patient will continue to benefit from ongoing skilled physical therapy to progress toward set goals. PLAN FOR NEXT VISIT: Manual as needed, progress hip and spine strengthening SUBJECTIVE: Patient had dry needling performed by her chiropracter and feels this flared her back/hip up. Twisting, bending, and general activity is all pretty painful and sharp at the moment on the right side Pain: Pain Pain Level: 6 Pain Location: Buttocks - Right Description: Sore, Sharp Frequency: Continuous OBJECTIVE MEASURES WITH LEVEL OF FUNCTION: Palpation to R glute med recreated patients familiar symptoms TREATMENT: Manual Therapy: 1: STM and TrPr to R QL and glute med with push to tolerance Dry Needling: (1) 75 mm needle to R glute med with pistoning and fanning (1 needle in 1 needle out.patient consent gained) Skilled Intervention: Manual skills to improve joint mobility, ROM, and decrease pain. Utilized anatomy knowledge of the therapist, and assessment of patient's response to intervention. Billing Manual TherapyTreatment Minutes: 39 Skilled Treatment Time Minutes (timed and untimed codes): 39 Total Session Time (minutes): 39 Session Start Time : 1430 Session Stop Time : 1509 Karmen Amador PT documented in this encounterD[facility]05-24-2024 History of Present illness Narrative* Karmen Amador, PT - 01/13/2024 11:08 AM EDT Episode Visit Count: 6 Therapist That Will Accept/Oversee The Plan Of Care: Karmen Amador Start of Care Date: 12/06/23 Onset Date: 11/21/23 Plan of Care Certification Date: 12/06/23 Next Certification Due Date: 02/05/24 REHABILITATION AND SPORTS THERAPY PHYSICAL THERAPY TREATMENT NOTE ASSESSMENT: Chiara Croft tolerated the session with decreased symptoms and no issues. She demonstrated improvements in R low back pain. The patient will continue to benefit from ongoing skilled physical therapy to progress toward set goals. PLAN FOR NEXT VISIT: December needle QL SUBJECTIVE: Patient's pain is very isolated to 1 spot in the low back right now Pain: Pain Pain Level: 3 Pain Location: Buttocks - Right Description: Sore Frequency: Intermittent OBJECTIVE MEASURES WITH LEVEL OF FUNCTION: Pain reproduced with palpation to R QL TREATMENT: Therapeutic Exercise: 1: *QL stretch 3x30 sec 2: *PPT 3x10, 3 sec holds 3: Reviewed HEP Skilled Intervention: Patient was educated in proper exercise technique and purpose for exercises. Skilled judgment was used in selection of appropriate interventions. Provided written instruction for home exercise program to facilitate proper performance and compliance. Correct performance of therapeutic exercises was facilitated with verbal, visual, and tactile cuing. Manual Therapy: 1: STM and TrPr to R QL and glute med with push to tolerance Skilled Intervention: Manual skills to improve joint mobility, ROM, and decrease pain. Utilized anatomy knowledge of the therapist, and assessment of patient's response to intervention. Billing Therapeutic Exercise Treatment Minutes: 15 Manual TherapyTreatment Minutes: 15 Skilled Treatment Time Minutes (timed and untimed codes): 30 Total Session Time (minutes): 30 Session Start Time : 1030 Session Stop Time : 1100 Karmen Perry, PT * Karmen Amador PT - 01/13/2024 10:49 AM EDT Program_ID:[id number] Access Code: [email or web address] URL: [email or web address] Date: 01-13-2024 Prepared By: George Tucker Program Notes Exercises - Hooklying Single Knee to Chest Stretch - 3 x daily - 7 x weekly - 1 sets - 3 reps - Supine Transversus Abdominis Bracing - Hands on Stomach - 1 x daily - 7 x weekly - 3 sets - 10 reps - Supine Piriformis Stretch with Foot on Ground - 3 x daily - 7 x weekly - 1 sets - 3 reps - Supine Single Bent Knee Fallout - 1 x daily - 7 x weekly - 3 sets - 10 reps - Supine Double Knee to Chest - 1 x daily - 7 x weekly - 3 sets - 10 reps - Supine Quadratus Lumborum Stretch - 1 x daily - 7 x weekly - 3 sets - 10 reps - Supine Posterior Pelvic Tilt - 1 x daily - 7 x weekly - 3 sets - 10 reps documented in this encounterD[facility]05-17-2024 History of Present illness Narrative* Karmen Amador PT - 01/06/2024 12:06 PM EDT Episode Visit Count: 5 Therapist That Will Accept/Oversee The Plan Of Care: Karmen Amador Start of Care Date: 12/06/23 Onset Date: 11/21/23 Plan of Care Certification Date: 12/06/23 Next Certification Due Date: 02/05/24 REHABILITATION AND SPORTS THERAPY PHYSICAL THERAPY TREATMENT NOTE ASSESSMENT: Chiara Croft tolerated the session with decreased symptoms and no issues. She demonstrated improvements in standing, walking, and radicular/buttocks pain post session. The patient willcontinue to benefit from ongoing skilled physical therapy to progress toward set goals. PLAN FOR NEXT VISIT: Assess if needling plus TENS is needed for lumbar spine SUBJECTIVE: Patient doing much better this week. Notes that her pain is not radiating down the leg currently (or at all this week), it is staying isolated to the buttocks. Most improvement she has seen from 1 visit to the next so far. Pain: Pain Pain Level: 2 Pain Location: Buttocks - Right Description: Sore Frequency: Intermittent OBJECTIVE MEASURES WITH LEVEL OF FUNCTION: TrP's in R glutes reproduce symptoms today TREATMENT: Manual Therapy: 1: RLE traction x5 min with pull to tolerance 2: STM and CFM to R piriformis and glute min/med Skilled Intervention: Manual skills to improve joint mobility, ROM, and decrease pain. Utilized anatomy knowledge of the therapist, and assessment of patient's response to intervention. Billing Manual TherapyTreatment Minutes: 39 Skilled Treatment Time Minutes (timed and untimed codes): 39 Total Session Time (minutes): 39 Session Start Time : 1033 Session Stop Time : 1112 Karmen Amador PT documented in this encounterD[facility]05-14-2024 History of Present illness Narrative* Karmen Amador, PT - 01/03/2024 9:57 AM EDT Images from the original note were not included. Episode Visit Count: 4 Therapist That Will Accept/Oversee The Plan Of Care: Karmen Amador Start of Care Date: 12/06/23 Onset Date: 11/21/23 Plan of Care Certification Date: 12/06/23 Next Certification Due Date: 02/05/24 REHABILITATION AND SPORTS THERAPY PHYSICAL THERAPY PROGRESS REPORT PLAN OF CARE UPDATE: Assessment: Chiara Croft demonstrates moderate improvement in standing, walking, and heavy exertion. She hasprogressed toward goals. Patient continues to present with impairments in ADL's, overall function, strength, symptom management, and tissue tenderness that interfere with standing, walking, heavy exertion . Current prognosis is Good due to: current objective clinical presentation, positive past response to therapy, good support system/ coping skills, within- session changes . She will benefit fromcontinued skilled therapy services to meet the updated goals for this plan of care as noted below. Goals updated on 01/03/2024. Goals for Episode of Care: created on 12/06/23 through 02/05/24 Independent in home exercises. Met Patient will decrease pain rating by 2 points to meet minimal clinical important difference for numeric pain rating scale. Partially met Restore pain-free lumbar ROM to WNL to allow for pain free functional ADLs Stand / Walk community distances without pain/symptoms. Progressing Sleep through night without pain/symptoms. Not met Sit 45 minutes minutes without pain/symptoms to allow for comfortable sitting arrangements and improved overall QoL. Progressing Maintain proper sitting posture throughout session. Met Patient will increase strength of hip flexion, aBd, knee extension to 4+/5 to allow for improve ability to complete ADLs. Progressing Patient Goals: Reduce pain and be able to complete functional ADLs w/o pain Planned Interventions, Frequency, and Duration: 1x/week, 4 weeks Total Number of Visits Planned: 4 Patient to be seen for Therapeutic exercise (20103), Neuromuscular re-education (30525), Manual therapy (34799), Therapeutic activities (25266), Self-shelter management (21224), Patient/Family/Caregiver Education, Body Mechanics Training PLAN FOR NEXT VISIT: Assess carry over of glute min needling and pain response Classification Pain Mechanism Classification: Nociceptive Low Back Pain Classification: Symptom Modulation SUBJECTIVE: Patient continues to see improvements, but activity is still limited in endurance; standing, walking. Pain remains in right buttocks when standing or walking for too long Functional Limitations: standing, walking, heavy exertion Pain: Pain Pain Level: 4 Pain Location: Buttocks - Right Description: Sore Frequency: Intermittent Post Treatment Pain Pain Mechanism Classification: Nociceptive PROMIS Scales 12/05/2023 11/01/2023 09/29/2023 Higher is Better Phys Func - Score 39 (moderate dysfunction) 34 (moderate dysfunction) 30 (moderate dysfunction) Phys Func - Percentile 14 5 2 Self-Eff Symptom - Score 35 (Low) 41 (Average) 33 (Low) Self-Eff Symptom - Percentile 7 18 4 T-scores: mean of general population = 50. 5 points is clinically meaningfully difference Percentiles provide an indication of how the patient's score ranks in relation to the general population. Higher percentile rankings indicate better function/quality of life. 50th percentile is the average of the general population and indicates half of respondents had a worse score. OBJECTIVE MEASURES WITH LEVEL OF FUNCTION: Spine Observations R Lumbar Spine Palpation Tenderness: Gluteals, Piriformis Lumbar Spine AROM Lumbar Flexion: Normal Lumbar Extension: Minimal limitation Lumbar R Side-Bend: Normal Lumbar L Side-Bend: Normal Lumbar R Rotation: Normal Lumbar L Rotation: Normal LE Strength Trunk Strength: 4-/5 grossly R LE Strength: 4/5 grossly L LE Strength: 4/5 grossly TREATMENT: Manual Therapy: 1: Manual lumbar belt traction x15 min with feet on stool and pull to tolerance 2: STM and CFM to R piriformis and glute min/med Dry Needling: (1) 60 mm needles to R glute min with pistoning and fanning (1 needle in, 1 needle out. patient consent gained) Skilled Intervention: Manual skills to improve joint mobility, ROM, and decrease pain. Utilized anatomy knowledge of the therapist, and assessment of patient's response to intervention. Billing Manual TherapyTreatment Minutes: 42 Skilled Treatment Time Minutes (timed and untimed codes): 42 Total Session Time (minutes): 42 Session Start Time : 1123 Session Stop Time : 1205 Karmen Amador PT documented in this encounterD[facility]24 Instructions* Patient Instructions* Angie Aguirre APRN.CNP - 01/02/2024 1:59 PM EDT Schedule the carotid duplex. Continue same medications. Let me know if you are continuing w/ dizziness when using inhaler. documented in this encounterDiley [facility]05-13-[facility]24 History of Present illness Narrative* Angie Aguirre APRN.CNP - 01/02/2024 1:24 PM EDT This is a 78 year old female who presents today with: Patient presents with: Acute Visit: Lightheadedness, dizziness since using inhaler; passed out at home last week; has had a few low BP readings per home monitor HISTORY OF PRESENT ILLNESS: Chiara Croft is a 78 year old female. Patient presents with: Acute Visit: Lightheadedness, dizziness since using inhaler; passed out at home last week; has had a few low BP readings per home monitor Pt presents today with complaint of passing out last week. Happened with inhaler usage. Was standing. She takes the breath in and will get lightheaded. Admits to holding breath for 10-15 seconds. Refers that she woke up on the floor. She has no memory of falling. Hit the chin on the table. No loss of bowel/bladder. No chest pain/SOB/palpitions. No diaphoresis. No n/v. No headache. No other dizziness during the day. Has been monitoring home BP, only one low reading. Chronic back pain. Last hydrocodone about 3-4 weeks ago. Doing PT. Seeing chiropractor. Needs new medication agreement and tox screen. PAST MEDICAL HISTORY: PAST MEDICAL HISTORY Diagnosis Date Abdominal pain Arthritis Asthma Degenerative disc disease Depression Disorder of bone and cartilage, unspecified History of transfusion HTN (hypertension) Hypothyroid Intrinsic asthma Mixed hyperlipidemia Hyperlipidemia Osteoarthrosis, unspecified whether generalized or localized, other specified sites PMH - PAST MEDICAL HISTORY OF CVA with weakness left side PMH - PAST MEDICAL HISTORY OF 2000 left cervical radiculopathy PMH - PAST MEDICAL HISTORY OF 2003 right rib fracture PMH - PAST MEDICAL HISTORY OF 2005 right shoulder impingement syndrome Spinal stenosis Stroke (HCC) 2005 Unspecified hypothyroidism PAST SURGICAL HISTORY Procedure Laterality Date APPENDECTOMY 1959 APPENDECTOMY HX BACK SURGERY HX 2016 L3-5 Decompression and Fusion CATARACT EXTRACTION HX Bilateral COLONOSCOPY N/A 09/15/2016 MAC EGD W/O [facility] SPEC VARICIES INJ 09/17/2016 EGD W/O [facility] SPEC VARICIES INJ 11/15/2022 EPIDURAL SITE SPECIFY lumbar spine EYE SURGERY HX PAST SURGICAL HISTORY OF 1976 thyroidectomy for toxic goiter SKIN BIOPSY HX TONSILLECTOMY HX TONSILLECTOMY PRIMARY/SECONDARY <AGE 12 Tonsillectomy ALLERGIES Cymbalta [Duloxetine], Fosamax [Alendronate Sodium], Septra [Sulfamethoxazole-Trimethoprim], Sulfamethoxazole, Tramadol, Trimethoprim, and Bupropion MEDICATIONS Current Outpatient Medications Medication Sig methocarbamol (ROBAXIN) 500 mg tablet Take 1 tablet by mouth two times a day as needed. amitriptyline (ELAVIL) 25 mg tablet Take 1 tablet by mouth daily at bedtime. QVAR REDIHALER 40 mcg/actuation inhaler Inhale 1 Puff as instructed two times a day. gabapentin (NEURONTIN) 100 mg capsule take two pills by mouth three times daily. losartan (COZAAR) 50 mg tablet TAKE 1 & 1/2 (ONE & ONE-HALF) TABLETS BY MOUTH ONCE DAILY clopidogrel (PLAVIX) 75 mg tablet Take 1 tablet by mouth once daily. [facility] ID: [id number] [email or web address] rosuvastatin (CRESTOR) 5 mg tablet Take 1 tablet by mouth once daily. guaifenesin/phenylephrine HCl (MUCINEX COLD ORAL) Take by mouth. L. rhamnosus GG/inulin (CULTURELLE DIGESTIVE HEALTH ORAL) Take 1 tablet by mouth once daily. levothyroxine (LEVOXYL) 88 mcg tablet Take 1 tablet by mouth once daily. Take on empty stomach. ForThyroid albuterol HFA (VENTOLIN HFA) 90 mcg/actuation inhaler Inhale 2 Puffs as instructed every 4 hours asneeded for wheezing/shortness of breath. lidocaine (SALONPAS) 4 % patch Apply as directed once daily. denosumab (PROLIA) 60 mg/mL syrg Inject 60 mg subcutaneously one time only. acetaminophen (TYLENOL) 500 mg tablet Take 500 mg by mouth every 8 hours as needed. No current facility-administered medications for this visit. FAMILY HISTORY Problem Relation Age of Onset Cerebral Embolism Mother Osteoporosis Mother other (spinal stenosis) Mother other (depression) Mother other (cva) Mother other (depression) Father other (tramatic brain syndrome) Father s/p MVA other (aplastic thyroid tumor) Sister Depression Brother Stroke Maternal Grandfather Colon Cancer No Family History Social History Tobacco Use Smoking status: Former Packs/day: 0.50 Years: 8.00 Additional pack years: 0.00 Total pack years: 4.00 Types: Cigarettes Smokeless tobacco: Never Tobacco comments: quit in 1969 Vaping Use Vaping Use: Never used Substance Use Topics Alcohol use: Yes Comment: 1-2 times per week Drug use: No EXAM: BP 112/72 Pulse 74 Resp 16 SpO2 93% PHYSICAL EXAM: General Appearance: Well appearing, alert, in no acute distress, well-hydrated, well nourished.. Skin: Skin color, texture, turgor normal, no suspicious rashes or lesions. Head: Normocephalic, no masses, lesions, tenderness or abnormalities. Eyes: Anicteric sclera. Pupils are equally round and reactive to light. Extraocular movements are intact. . Oropharynx: Lips, mucosa, and tongue normal, teeth and gums normal, oropharynx normal. Neck: Supple, no adenopathy; thyroid symmetric, normal size, no bruits. Lungs: Lungs clear to auscultation. No wheezing, rhonchi, rales.. Heart: RRR without murmur, gallop, or rubs. No ectopy. Extremities: No deformities, edema, skin discoloration, clubbing or cyanosis. Good capillary refill. . Neurologic: Gait normal. ASSESSMENT/PLAN: 1. Syncope, unspecified syncope type - ICD9: 780.2, ICD10: R55 (primary diagnosis) Suspect vasovagal response to the inhaler. Will get carotid ultrasound. Did have a recent echo and stress testing. Discussed event monitoring and she will consider. Continue inhaler, but discussed try to avoid forceful inhalation and bearing down with the inhaler use. Sit with inhaler use. - ECG COMPLETE - US CAROTID ARTERIES [facility] 2. Chronic right-sided low back pain without sciatica - ICD9: 724.2, 338.29, ICD10: M54.50, G89.29 New medication agreement. Tox screen today. As above. If expected tox screen, okay to refill hydrocodone. 3. Medication monitoring encounter - ICD9: V58.83, ICD10: Z51.81 - TOXICOLOGY SCREEN, ROUTINE URINE - PAIN PANEL, UR QUANT - PAIN PANEL, UR QUANT - SPECIMEN VALIDITY, URINE Discussed treatment plan and patient voices understanding. Patient's questions answered appropriately. Medications and potential side effects were discussed and patient voices understanding. Return to the office as scheduled or as needed for worsening/no improvement. Angie Aguirre APRN.WEIGHT ANALYST documented in this encounterD[facility]05-10-2024 Telephone encounter Note * Telephone Encounter - Zheng Tse LPN - 12/30/2023 11:38 AM EDT MC message sent (see MC message from 12/28) [facility]05-10-[facility] Miscellaneous Notes* Telephone Encounter - Zheng Tse LPN - 12/30/2023 11:38 AM EDT MC message sent (see message from 12/28) * Telephone Encounter - Angie Aguirre APRN.SAURABH - 12/30/2023 10:49 AM EDT Zheng: Can we help get Chiara set up for an appt. She had fainted after using an inhaler. (Likely will needEKG, orthos, etc). In addition to above, I also received her mammogram results. The area on the left breast is no longer present. It looks like some calcifications in the right breast, which are likely benign, but theywould like to repeat the imaging again in 6 months. I put the order in, it just will need scheduled. -Angie documented in this encounterDiley [facility] Center05-10-2024 Telephone encounter Note * Telephone Encounter - Angie Aguirre APRN.CNP - 12/30/2023 10:49 AM EDT Zheng: Can we help get Chiara set up for an appt. She had fainted after using an inhaler. (Likely will needEKG, orthos, etc). In addition to above, I also received her mammogram results. The area on the left breast is no longer present. It looks like some calcifications in the right breast, which are likely benign, but theywould like to repeat the imaging again in 6 months. I put the order in, it just will need scheduled. -Angie [facility]05-08-[facility] History of Present illness Narrative* Norbert Lara, Mammo Tech - 12/28/2023 3:00 PM EDT Radiology Service Progress Note PATIENT NAME: Chiara Croft DATE OF SERVICE: December 28, 2023 TIME: 3:38 PM PATIENT IDENTITY VERIFICATION COMPLETED USING TWO (2) IDENTIFIERS: Name and Date of confirmedby patient verbally. FALL SCREENING: Has the patient had 2 falls in the last year or 1 fall with injury or currently using an Ambulatory Assistive Device (Walker, Cane, Wheelchair, Crutches, etc.)? No PATIENT GENDER DATA: Female. status: : No status: NO. PATIENT RELEVANT IMPLANT DATA REVIEWED: Not Applicable PATIENT PRESENTS WITH AN IMPLANTABLE OR ATTACHED BULL RIVETER: No RADIOLOGY DEPARTMENT: Mammography PERIPHERAL IV DATA: Not applicable SIGNED BY: Ismael Drapero Deny December 28, 2023 3:38 PM documented in this encounterDiley [facility] Center05-07-2024 Telephone encounter Note * Telephone Encounter - Quita Barth APRN.CNP - 12/27/2023 11:30 AM EDT The following approved medication requests have been transmitted electronically. Requested Prescriptions Signed Prescriptions Disp Refills methocarbamol (ROBAXIN) 500 mg tablet 60 tablet 1 Sig: Take 1 tablet by mouth two times a day as needed. Quita Barth APRN.CNP [facility]05-07-2024 Miscellaneous Notes* Telephone Encounter - Quita Barth APRN.CNP - 12/27/2023 11:30 AM EDT The following approved medication requests have been transmitted electronically. Requested Prescriptions Signed Prescriptions Disp Refills methocarbamol (ROBAXIN) 500 mg tablet 60 tablet 1 Sig: Take 1 tablet by mouth two times a day as needed. Quita Barth APRN.CNP * Telephone Encounter - Samina Govea RN - 12/26/2023 3:16 PM EDT Received a refill request via [employer] from patient for the following medication(s): Requested Prescriptions Pending Prescriptions Disp Refills methocarbamol (ROBAXIN) 500 mg tablet 60 tablet 0 Sig: Take 1 tablet by mouth two times a day as needed. The pharmacy has been populated. Last (Rx'd/filled) by 10/28/2023 Last Appointment(s) 08/31/2023 w/Quita Barth CNP Next Appointment(s) NONE Routing to provider. Please review/advise. Samina Govea RN documented in this encounterDiley [facility] Center05-06-2024 Telephone encounter Note * Telephone Encounter - Samina Govea RN - 12/26/2023 3:16 PM EDT Received a refill request via [employer] from patient for the following medication(s): Requested Prescriptions Pending Prescriptions Disp Refills methocarbamol (ROBAXIN) 500 mg tablet 60 tablet 0 Sig: Take 1 tablet by mouth two times a day as needed. The pharmacy has been populated. Last (Rx'd/filled) by 10/28/2023 Last Appointment(s) 08/31/2023 w/Quita Barth CNP Next Appointment(s) NONE Routing to provider. Please review/advise. Samina Govea RN [facility]05-03-[facility] History of Present illness Narrative* Karmen Amador, PT - 12/23/2023 12:34 PM EDT Episode Visit Count: 3 Therapist That Will Accept/Oversee The Plan Of Care: Karmen Amador Start of Care Date: 12/06/23 Onset Date: 11/21/23 Plan of Care Certification Date: 12/06/23 Next Certification Due Date: 02/05/24 REHABILITATION AND SPORTS THERAPY PHYSICAL THERAPY TREATMENT NOTE ASSESSMENT: Chiara Croft tolerated the session with decreased symptoms. She demonstrated improvements in walking and activity tolerance. The patient will continue to benefit from ongoing skilled physical therapy to progress toward set goals. PLAN FOR NEXT VISIT: Assess carry over of traction and needling SUBJECTIVE: Patient notes improvements in symptoms. She has isolated pain at the R buttocks with minimal referral. She tried dry needling at chiro office and saw great relief with that Pain: Pain Pain Level: 3 Pain Location: Buttocks - Right Description: Sore Frequency: Intermittent OBJECTIVE MEASURES WITH LEVEL OF FUNCTION: Palpation to R piriformis reproduces patients familiar pain TREATMENT: Manual Therapy: 1: Manual lumbar belt traction x15 min with feet on stool and pull to tolerance 2: STM and CFM to R piriformis Dry Needling: (1) 30 mm needle to R piriformis with pistoning and fanning (1 needle in 1 needle out, patient consent gained) Skilled Intervention: Manual skills to improve joint mobility, ROM, and decrease pain. Utilized anatomy knowledge of the therapist, and assessment of patient's response to intervention. Billing Manual TherapyTreatment Minutes: 39 Skilled Treatment Time Minutes (timed and untimed codes): 39 Total Session Time (minutes): 39 Session Start Time : 0950 Session Stop Time : 1028 Karmen Amador PT documented in this encounterDiley [facility] Center04-24-2024 History of Present illness Narrative* Karmen Amador PT - 12/14/2023 2:38 PM EDT Episode Visit Count: 2 Therapist That Will Accept/Oversee The Plan Of Care: Karmen Amador Start of Care Date: 12/06/23 Onset Date: 11/21/23 Plan of Care Certification Date: 12/06/23 Next Certification Due Date: 02/05/24 REHABILITATION AND SPORTS THERAPY PHYSICAL THERAPY TREATMENT NOTE ASSESSMENT: Chiara Croft tolerated the session with decreased symptoms and expected muscle soreness. She demonstrated difficulty with quad control w/ simultaneous TA activation and improvements insymptom modulation. The patient will continue to benefit from ongoing skilled physical therapy to progress toward set goals. PLAN FOR NEXT VISIT: Assess tolerance to HEP additions. Implement more neutral spine training. SUBJECTIVE: Pt reports to clinic w/ significantly reduced symptoms and no pain in calf; stops at proximal posterior thigh. Pain: Pain Pain Level: 3 Pain Location: Buttocks - Right, Low Back/Lumbar Spine - Right Description: Aching Frequency: Continuous OBJECTIVE MEASURES WITH LEVEL OF FUNCTION: Pt demonstrated limited hip IR. TREATMENT: Therapeutic Exercise: 1: *TA set w/ BKFO x6 ea leg 2: *DKC 3X30 3: TA set w/ SLR x12 ea leg Skilled Intervention: Patient was educated in proper exercise technique and purpose for exercises. Reviewed and educated patient on additions/changes for home exercise program . Skilled judgment was used in selection of appropriate interventions. Provided written instruction for home exercise program to facilitate proper performance and compliance. Educated patient on rationale for performing exercises in regards to increase ease of ADL and ROM and function . Manual Therapy: 1: STM and push to tolerance on piriformis 2: STM and CFM to glute medius and minimis Skilled Intervention: Manual skills to improve joint mobility, ROM, and decrease pain. Utilized anatomy knowledge of the therapist, and assessment of patient's response to intervention. Billing Therapeutic Exercise Treatment Minutes: 20 Manual TherapyTreatment Minutes: 25 Skilled Treatment Time Minutes (timed and untimed codes): 45 Total Session Time (minutes): 45 Session Start Time : 1349 Session Stop Time : 1434 RIC Brown Supervising therapist was present and guided the care of the patient for the entire session on thisdate. All documentation was reviewed and agreed upon. Karmen Amador PT * Karmen Amador PT - 12/14/2023 2:27 PM EDT Program_ID:[id number] Access Code: [email or web address] URL: [email or web address] Date: 12-14-2023 Prepared By: George Tucker Program Notes Exercises - Hooklying Single Knee to Chest Stretch - 3 x daily - 7 x weekly - 1 sets - 3 reps - Supine Transversus Abdominis Bracing - Hands on Stomach - 1 x daily - 7 x weekly - 3 sets - 10 reps - Supine Piriformis Stretch with Foot on Ground - 3 x daily - 7 x weekly - 1 sets - 3 reps - Supine Single Bent Knee Fallout - 1 x daily - 7 x weekly - 3 sets - 10 reps - Supine Double Knee to Chest - 1 x daily - 7 x weekly - 3 sets - 10 reps documented in this encounterDiley [facility] Center04-17-2024 Miscellaneous Notes* Telephone Encounter - Zheng Tse LPN - 12/07/2023 10:50 AM EDT Pt notified. Phone number given to pt for [facility] [place]. Zheng Tse LPN * Telephone Encounter - Angie Aguirre APRN.SAURABH - 12/07/2023 10:36 AM EDT Can please let patient know that we received her mammogram results. They are requesting additional imaging of both breasts. I put orders in for diagnostic mammogram and ultrasound if needed. Please help schedule. documented in this encounterDiley [facility] Center04-16-2024 History of Present illness Narrative* Karmen Amador, PT - 12/06/2023 5:22 PM EDT Images from the original note were not included. Episode Visit Count: 1 Therapist That Will Accept/Oversee The Plan Of Care: Karmen Amador Start of Care Date: 12/06/23 Onset Date: 11/21/23 Plan of Care Certification Date: 12/06/23 Next Certification Due Date: 02/05/24 Patient Identified by Name and Date of : Yes REHABILITATION AND SPORTS THERAPY PHYSICAL THERAPY EVALUATION PLAN OF CARE: Assessment: Chiara Croft presents with chief complaint of RLE pain that interferes with sitting,rising from a chair, walking, standing, walking in the house, walking in the community, stair negotiation, bending, heavy exertion, lifting, physical activities, recreational activities, sleeping, driving, cleaning, cooking, dressing, bed mobility . She presents with impairments in ADL's, coordination, flexibility, gait, posture, strength, stress management, symptom management, and tissue tenderness. PROMIS (Patient-Reported Outcomes Measurement Information System) scores were reviewed and identified as a rehabilitation concern. Prognosis for therapy is Good due to: within-session changes, current objective clinical presentation . She will benefit from skilled therapy services to meet the goals established for this plan of care as noted below. Classification Low Back Pain Classification: Symptom Modulation Goals for Episode of Care: created on 12/06/23 through 02/05/24 Independent in home exercises. Patient will decrease pain rating by 2 points to meet minimal clinical important difference for numeric pain rating scale. Restore pain-free lumbar ROM to WNL to allow for pain free functional ADLs Stand / Walk community distances without pain/symptoms. Sleep through night without pain/symptoms. Sit 45 minutes minutes without pain/symptoms to allow for comfortable sitting arrangements and improved overall QoL Maintain proper sitting posture throughout session Patient will increase strength of hip flexion, aBd, knee extension to 4+/5 to allow for improve ability to complete ADLs. Patient Goals: Reduce pain and be able to complete functional ADLs w/o pain Planned Interventions, Frequency, and Duration: Current Frequency: 1x/week Duration: 8 weeks Total Number of Visits Planned: 8 Planned Treatment Interventions: Therapeutic exercise (60575), Neuromuscular re- education (02047), Manual therapy (71769), Self-shelter management (99644), Body Mechanics Training PLAN FOR NEXT VISIT: Assess tolerance and adherence to HEP; begin abdominal strengthening exericse,assess ability to handle manual therapy for further symptom modulation; as well as dry needling if indicated. Patient demonstrates good understanding of plan of care and treatment. The above goals and plan of care were discussed and agreed upon by patient/family. SUBJECTIVE: Pt reports to clinic w/ pain radiating from R glute to R ankle. Reports pain being worst in glute and mild tingling in ankle. Notes pain started 2 weeks ago when bending over to pick something up at [employer] (did not remember weight). Pt reports no back pain unless extending lumbar spine. Patient Goals: Reduce pain and be able to complete functional ADLs w/o pain Functional Limitations: sitting, rising from a chair, walking, standing, walking in the house, walking in the community, stair negotiation, bending, heavy exertion, lifting, physical activities, recreational activities, sleeping, driving, cleaning, cooking, dressing, bed mobility Home Environment Equipment Owned: Cane Falls Interview: No positive findings with falls interview Red Flags Vertebral Fracture Red Flags: Female, Age >70 Vertebral Fracture Clinical Reasoning: Proceed with caution due to the above (1- 2) risk factors Abdominal Aortic Aneurysm Red Flags: Age >60 Abdominal Aortic Aneurysm Clinical Reasoning: No identified risk factors. Cancer Red Flags: Age >50 or <20 Cancer Clinical Reasoning: No identified risk factors. Infection Clinical Reasoning: No identified risk factors. Cauda Equina Syndrome Clinical Reasoning: No identified risk factors. Red Flags - Cervical Cancer Red Flags: Age >50 or <20 Cancer Clinical Reasoning: No identified risk factors. Infection Clinical Reasoning: No identified risk factors. Pain: Pain Pain Level: 5 (worst: 8; best:5; av; allevaiting: heat, positional change. Worsening: moving/standing, walking.) Pain Location: Buttocks - Right, Leg - Right, Ankle - Right Description: Aching, Stabbing, Sharp, Tightness Frequency: Continuous Post Treatment Pain Pain Mechanism Classification: Nociceptive PROMIS Scales 12/05/2023 11/01/2023 09/29/2023 Higher is Better Phys Func - Score 39 (moderate dysfunction) 34 (moderate dysfunction) 30 (moderate dysfunction) Phys Func - Percentile 14 5 2 Self-Eff Symptom - Score 35 (Low) 41 (Average) 33 (Low) Self-Eff Symptom - Percentile 7 18 4 T-scores: mean of general population = 50. 5 points is clinically meaningfully difference Percentiles provide an indication of how the patient's score ranks in relation to the general population. Higher percentile rankings indicate better function/quality of life. 50th percentile is the average of the general population and indicates half of respondents had a worse score. OBJECTIVE MEASURES WITH LEVEL OF FUNCTION: Posture / Alignment Posture: Forward head, Increased thoracic kyphosis, Decreased lumbar lordosis Lumbar Spine AROM Lumbar Flexion: Minimal limitation, Moderate limitation Lumbar Extension: Minimal limitation, Moderate limitation Lumbar R Side-Bend: Minimal limitation Lumbar L Side-Bend: Minimal limitation Lumbar R Rotation: Minimal limitation Lumbar L Rotation: Minimal limitation Thoracic Spine AROM Thoracic Rotation Right: Minimal limitation Thoracic Rotation Left: Minimal limitation LE Strength R Hip Flexion (L2): 3-/5 R Hip ABduction: 3-/5 R Hip ADduction: 4/5 R Knee Extension (L3): 4-/5 R Knee Flexion: 4/5 R Ankle Dorsiflexion (L4): 4/5 R Ankle Plantar Flexion: 4/5 R Great Toes Extension (L5, S1): 4+/5 L Hip Flexion (L2): 4/5 L Hip ABduction: 4/5 L Hip ADduction: 4/5 L Knee Extension (L3): 4+/5 L Knee Flexion: 4+/5 L Ankle Dorsiflexion (L4): 5/5 L Ankle Plantar Flexion: 5/5 L Great Toes Extension (L5, S1): 5/5 Special Tests - Hip and Spine Hip and Spine Special Tests: SLR Test, Slump Test SLR Test: Right Positive Slump Test: Right Positive Education: Education Education Provided: Yes, see treatment interventions for education provided Education Provided To: Patient Education Mode/Type: Explanation/Discussion Response to Education/Teach Back: States/Identifies TREATMENT: PT Treatment Interventions: Therapeutic Exercise, Self-Long Term Management Evaluation Therapeutic Exercise: 1: *TA set 3x10 2: *SKC 3x30 w/ strap 3: *Piriformis stretch cross body 3x30 Skilled Intervention: Patient was educated in proper exercise technique and purpose for exercises. Reviewed and educated patient on additions/changes for home exercise program . Skilled judgment was used in selection of appropriate interventions. Correct performance of therapeutic exercises was facilitated with verbal and tactile cuing. Educated patient on rationale for performing exercises in regards to increase ease of ADL and ROM and function . Self-Long Term Management: 1: Pt was edu in HEP and physiology of impairments. Pt was edu in what exercise to continue at homefrom previous PT and personal exericse based on french pastry cook judgement w/ current impairments and findings. Patient educated on ceasing extension and prone exercises, avoiding bending from standing andsitting position. Skilled Intervention: Skilled judgment in the selection of proper modification for activity of daily living/home management based on clinical presentation, deficits, and needs. Provided written instruction for activities of daily living techniques to facilitate proper performance and compliance. Reviewed and educated patient on additions/changes for home program as noted above with an (*). Correct performance of home program was facilitated with verbal and tactile cueing. Billing * Evaluation Low Complexity: 1 Unit Therapeutic Exercise Treatment Minutes: 12 Self-Care/Home Management Treatment Minutes: 12 Skilled Treatment Time Minutes (timed and untimed codes): 46 Total Session Time (minutes): 46 Session Start Time : 1458 Session Stop Time : 1544 RIC Brown Supervising therapist was present and guided the care of the patient for the entire session on thisdate. All documentation was reviewed and agreed upon. Karmen Amador PT * Karmen Amador PT - 12/06/2023 3:39 PM EDT Program_ID:[id number] Access Code: [email or web address] URL: [email or web address] Date: 12-06-2023 Prepared By: George Tucker Program Notes Exercises - Hooklying Single Knee to Chest Stretch - 3 x daily - 7 x weekly - 1 sets - 3 reps - Supine Transversus Abdominis Bracing - Hands on Stomach - 1 x daily - 7 x weekly - 3 sets - 10 reps - Supine Piriformis Stretch with Foot on Ground - 3 x daily - 7 x weekly - 1 sets - 3 reps documented in this encounterD[facility]04-16-2024 Miscellaneous Notes* Letter - Coordinator, Mammography - 12/06/2023 2:14 PM EDT December 06, 2023 PID: [id number] Chiara Croft [address] [place] [address] Dear Ms. Croft, Your recent breast imaging exam on 12/05/2023 showed a possible finding that requires additional imaging studies for a complete evaluation. Most such findings are probably benign (not cancer). If you have a healthcare provider who ordered/prescribed your screening mammogram: Please call [phone] or [phone] to schedule an appointment for your additional imaging (if youhave not already done so). If you DO NOT have a healthcare provider (ie you did not have an order/prescription for your screening mammogram): Please call to schedule an appointment for your additional imaging (if you have not already done so). You must have an order/prescription from your physician when calling to schedule your appointment. If your order/prescription is not electronic, you must bring the hard copy with you on the day of your exam to avoid delays. Your imaging studies and reports are kept on file at [facility] as part of your permanent medical record, and are available for your continuing care. Thank you for allowing us to help in meeting your health care needs. Sincerely, Dr. Schuster Interpreting Radiologist [facility] (Additional imaging) documented in this encounterDiley Ridge Medical Center04-15-2024 History of Present illness Narrative* Lore Bolivar Mammo Tech - 12/05/2023 11:30 AM EDT Radiology Service Progress Note PATIENT NAME: Chiara Croft DATE OF SERVICE: December 05, 2023 TIME: 11:32 AM PATIENT IDENTITY VERIFICATION COMPLETED USING TWO (2) IDENTIFIERS: Name and Date of confirmedby patient verbally. FALL SCREENING: Has the patient had 2 falls in the last year or 1 fall with injury or currently using an Ambulatory Assistive Device (Walker, Cane, Wheelchair, Crutches, etc.)? No PATIENT GENDER DATA: Female. status: : No status: NO. PATIENT RELEVANT IMPLANT DATA REVIEWED: Not Applicable PATIENT PRESENTS WITH AN IMPLANTABLE OR ATTACHED BULL RIVETER: No RADIOLOGY DEPARTMENT: Mammography PERIPHERAL IV DATA: Not applicable SIGNED BY: Margie Roberts December 05, 2023 11:32 AM documented in this encounterDiley [facility] Center04-10-2024 History of Present illness Narrative* Albin Balderrama V, DO - 11/30/2023 3:01 PM EDT Images from the original note were not included. SERVICE DATE: November 30, 2023 PCP: Angie Aguirre APRN.WEIGHT ANALYST Subjective Patient ID: Chiara is a 78 year old female. Chief Complaint: Patient presents with: Right Hip Pain PAIN EVALUATION 11/28/2023 1720 Pain Level: 7 Pain Location: Hip-Right Description: Aching;Dull;Radiating;Sharp;Stabbing;Tightness Duration Amount of Time: 2 Duration Units: Weeks Frequency: Continuous Intervention/Comfort measure: Medication;Distractions;Heat;Positioning Comments: Medication HPI Patient has pain in the posterior hip, ischial region on right side for 2 weeks. Started when picking up at [employer]. Pain is persistent, worse with standing and sitting. She has chronic back issues for which she is under treatment but states that this seems like it is different than her back pain. She can push on a spot in her posterior hip and reproduce pain. She states it also hurts when she tries to flex the knee or hip. Review of Systems ACTIVE PROBLEM LIST Mild Persistent Asthma Without Complication Stroke (Hcc) Gerd (Gastroesophageal Reflux Disease) Platelet Inhibition Due to Plavix Hyperthyroidism Nausea Postlaminectomy Syndrome Chronic Bilateral Low Back Pain Without Sciatica Chronic Si Joint Pain Primary Hypertension Hyperlipidemia Post-Surgical Hypothyroidism Other cerebral infarction (HCC) Generalized Abdominal Pain Special Screening Examination for Viral Disease Lumbar Spondylosis Lumbosacral Radiculitis Hoarse Dizziness Spinal Stenosis of Lumbar Region With Neurogenic Claudication Piriformis Syndrome of Right Side Abnormal Mri of Abdomen Other Constipation Lumbar Radiculopathy PAST MEDICAL HISTORY Diagnosis Date Abdominal pain Arthritis Asthma Degenerative disc disease Depression Disorder of bone and cartilage, unspecified History of transfusion HTN (hypertension) Hypothyroid Intrinsic asthma Mixed hyperlipidemia Hyperlipidemia Osteoarthrosis, unspecified whether generalized or localized, other specified sites PMH - PAST MEDICAL HISTORY OF CVA with weakness left side PMH - PAST MEDICAL HISTORY OF 2000 left cervical radiculopathy PMH - PAST MEDICAL HISTORY OF 2003 right rib fracture PMH - PAST MEDICAL HISTORY OF 2005 right shoulder impingement syndrome Spinal stenosis Stroke (HCC) 2005 Unspecified hypothyroidism PAST SURGICAL HISTORY Procedure Laterality Date APPENDECTOMY 1960 APPENDECTOMY HX BACK SURGERY HX 2017 L3-5 Decompression and Fusion CATARACT EXTRACTION HX Bilateral COLONOSCOPY N/A 09/15/2016 MAC EGD W/O BRSH SPEC VARICIES INJ 09/17/2016 EGD W/O BRSH SPEC VARICIES INJ 11/15/2022 EPIDURAL SITE SPECIFY lumbar spine EYE SURGERY HX PAST SURGICAL HISTORY OF 1976 thyroidectomy for toxic goiter SKIN BIOPSY HX TONSILLECTOMY HX TONSILLECTOMY PRIMARY/SECONDARY <AGE 12 Tonsillectomy FAMILY HISTORY Problem Relation Age of Onset Cerebral Embolism Mother Osteoporosis Mother other (spinal stenosis) Mother other (depression) Mother other (cva) Mother other (depression) Father other (tramatic brain syndrome) Father s/p MVA other (aplastic thyroid tumor) Sister Depression Brother Stroke Maternal Grandfather Colon Cancer No Family History Social History Tobacco Use Smoking status: Former Packs/day: 0.50 Years: 8.00 Additional pack years: 0.00 Total pack years: 4.00 Types: Cigarettes Smokeless tobacco: Never Tobacco comments: quit in 1970 Vaping Use Vaping Use: Never used Substance Use Topics Alcohol use: Yes Comment: 1-2 times per week Drug use: No ALLERGIES Allergen Reactions Cymbalta [Duloxetin* Other: See Comments Tremor Fosamax [Alendronat* Intolerance Reflux Septra [Sulfamethox* Hives swelling and SOB Sulfamethoxazole Hives Tramadol Other: See Comments Tremor Trimethoprim Hives Bupropion Other: See Comments MEDICATIONS: QVAR REDIHALER 40 mcg/actuation inhaler Inhale 1 Puff as instructed two times a day. gabapentin (NEURONTIN) 100 mg capsule take two pills by mouth three times daily. amitriptyline (ELAVIL) 10 mg tablet Take 2 tablets by mouth daily at bedtime. losartan (COZAAR) 50 mg tablet TAKE 1 & 1/2 (ONE & ONE-HALF) TABLETS BY MOUTH ONCE DAILY clopidogrel (PLAVIX) 75 mg tablet Take 1 tablet by mouth once daily. [facility] ID: [id number] [email or web address] rosuvastatin (CRESTOR) 5 mg tablet Take 1 tablet by mouth once daily. L. rhamnosus GG/inulin ([facility] ORAL) Take 1 tablet by mouth once daily. levothyroxine (LEVOXYL) 88 mcg tablet Take 1 tablet by mouth once daily. Take on empty stomach. ForThyroid albuterol HFA (VENTOLIN HFA) 90 mcg/actuation inhaler Inhale 2 Puffs as instructed every 4 hours asneeded for wheezing/shortness of breath. denosumab (PROLIA) 60 mg/mL syrg Inject 60 mg subcutaneously one time only. acetaminophen (TYLENOL) 500 mg tablet Take 500 mg by mouth every 8 hours as needed. guaifenesin/phenylephrine HCl (MUCINEX COLD ORAL) Take by mouth. fluticasone/vilanterol (BREO ELLIPTA INHALATION) Inhale 1 Puff as instructed once daily. lansoprazole (PREVACID) 15 mg capsule Take 1 capsule by mouth once daily. (Patient not taking: Reported on 11/30/2023) lidocaine (SALONPAS) 4 % patch Apply as directed once daily. Cholecalciferol, Vitamin D3, 25 mcg (1,000 unit) cap Vitamin D Allergies, medications, past surgical history, family history and past medical history were reviewed per this encounter. Objective Ortho Exam 78 old female Ration of the right hip shows pain with palpation over the ischial tuberosity, proximal hamstring attachment. Pain is made worse with resisted knee flexion and hip extension. Leg raise is negative for radicular symptoms. There is discomfort with logroll. Assessment/Plan ASSESSMENT Diagnosis (S76.311A) Hamstring strain, right, initial encounter (primary encounter diagnosis) Plan: CONSULT TO PHYSICAL THERAPY Office Visit on 11/30/23 CONSULT TO PHYSICAL THERAPY PLAN consult PT eval and tx FOLLOW-UP: No follow-ups on file. 3 weeks SIGNATURE: Albin Balderrama DO PATIENT NAME: Chiara Croft DATE: November 30, 2023 TIME: 3:01 PM * Andra Goldstein MA - 11/30/2023 2:35 PM EDT AMB ROOMING INTAKE FLOWSHEET DATA Pain Pain Level: 7 Pain Location: Hip-Right Description: Aching, Dull, Radiating, Sharp, Stabbing, Tightness Duration Amount of Time: 2 Duration Units: Weeks Frequency: Continuous Intervention/Comfort measure: Medication, Distractions, Heat, Positioning Comments: Medication documented in this encounterD[facility]04-10-2024 History of Present illness Narrative* Tatyana Orourke RT(R) - 11/30/2023 2:10 PM EDT Radiology Service Progress Note PATIENT NAME: Chiara Croft DATE OF SERVICE: November 30, 2023 TIME: 2:17 PM PATIENT IDENTITY VERIFICATION COMPLETED USING TWO (2) IDENTIFIERS: Name and Date of confirmedby patient verbally. FALL SCREENING: Has the patient had 2 falls in the last year or 1 fall with injury or currently using an Ambulatory Assistive Device (Walker, Cane, Wheelchair, Crutches, etc.)? Yes, Patient High Riskfor Falls What interventions were put in place to prevent falls during this visit? Offered Assistance with Transfers/Clothing and Instructed Patient to Remain Seated (Not on Exam Table) Until Exam PATIENT GENDER DATA: Female. status: : No status: NO. PATIENT RELEVANT IMPLANT DATA REVIEWED: Not Applicable PATIENT PRESENTS WITH AN IMPLANTABLE OR ATTACHED BULL RIVETER: No RADIOLOGY DEPARTMENT: General X-ray: Exam(s) Completed: Pelvis X-Ray: Pelvis with Hip Right PERIPHERAL IV DATA: Not applicable SIGNED BY: RT Francisco(R) November 30, 2023 2:17 PM documented in this encounterDiley [facility] Center03-26-2024 Miscellaneous Notes* Telephone Encounter - Shameka Mccarty APRN.CNS - 11/15/2023 5:17 PM EDT Renewed plavix for Hx of CVA * Telephone Encounter - Shameka Mckee LPN - 11/15/2023 1:18 PM EDT Patient has been identified by name and date of : Yes, Patient phones for refill(s): Requested Prescriptions Pending Prescriptions Disp Refills clopidogrel (PLAVIX) 75 mg tablet 90 tablet 3 Sig: Take 1 tablet by mouth once daily. [facility] ID: [id number] [email or web address] Date of last office visit in primary care: 11/04/2023 Date of next office visit in primary care: Please advise. Thank you. Shameka Mckee LPN. documented in this encounterD[facility] Center03-26-2024 Miscellaneous Notes* Telephone Encounter - Shameka Mccarty APRN.CNS - 11/15/2023 5:15 PM EDT Losartan renewed * Telephone Encounter - Shameka Mckee LPN - 11/15/2023 1:17 PM EDT Patient has been identified by name and date of : Yes, Patient phones for refill(s): Requested Prescriptions Pending Prescriptions Disp Refills losartan (COZAAR) 50 mg tablet 145 tablet 1 Sig: TAKE 1 & 1/2 (ONE & ONE-HALF) TABLETS BY MOUTH ONCE DAILY Date of last office visit in primary care: 11/04/2023 Date of next office visit in primary care: Please advise. Thank you. Shameka Mckee LPN. documented in this encounterDiley [facility] Center03-26-2024 NoteHNO ID: [id number] Author: GEORGE TUCKER, PT, DPT Service: ? Author Type: Physical Therapist Type: Progress Notes Filed: 11/15/2023 12:04 Note Text: Episode Visit Count: 15 Therapist That Will Accept/Oversee The Plan Of Care: Garrett Start of Care Date: 01/10/23 Onset Date: 01/11/16 Plan of Care Certification Date: 09/30/23 Next Certification Due Date: 12/09/23 Patient Identified by Name and Date of : Yes REHABILITATION AND SPORTS THERAPY PHYSICAL THERAPY DISCONTINUANCE OF CARE PLAN OF CARE UPDATE: Assessment: Chiara Croft is discontinued from Physical Therapy services due to goal achievement. and maximal benefit.. Patient was seen for 15 visits from Start of Care Date: 01/10/23 to 11/15/2023 and treatment included: Therapeutic exercise, Neuromuscular re-education, Manual therapy, and Self-shelter management. Pt at this time is independent with her home program and will be discharged to an independent program. Goals for Episode of Care: created on 01/10/23 through 03/21/23 Independent in home exercises. ONGOING Patient will decrease pain to 2/10 with functional activities to allow patient to improve ambulation and standing tolerance for ADLs. ONGOING Restore pain-free lumbar ROM to minimal limitation in standing flexion to allow for ADLs MET Stand / Walk 30 minutes without pain/symptoms.MET Knowledgeable regarding prophylaxis. Patient will increase strength of bilateral hips to 5/5 to allow for improve ability to complete ADLs. ONGOING Patient Goals: aleeviate pain and get stronger SUBJECTIVE: . Pt reports that she is doing much better and feels she has the tools to continue on her own Pain: PROMIS Scales 11/01/2023 09/29/2023 08/27/2023 Higher is Better Phys Func - Score 34 (moderate dysfunction) 30 (moderate dysfunction) 33 (moderate dysfunction) Phys Func - Percentile 5 2 4 Self-Eff Symptom - Score 41 (Average) 33 (Low) Self-Eff Symptom - Percentile 18 4 T-scores: mean of general population = 50. 5 points is clinically meaningfully difference Percentiles provide an indication of how the patient's score ranks in relation to the general population. Higher percentile rankings indicate better function/quality of life. 50th percentile is the average of the general population and indicates half of respondents had a worse score. OBJECTIVE MEASURES WITH LEVEL OF FUNCTION: TREATMENT: Therapeutic Exercise: 2: cat cow 5x10 3: ryan pose 30x3 4: happy baby stretch 30x3 5: seated hip ER stretch pt education and practice once on eac side 6: bridge with PPT and glute activation Skilled Intervention: Patient was educated in proper exercise technique and purpose for exercises. Skilled judgment was used in selection of appropriate interventions. Manual Therapy: 2: dry needle Skilled Intervention: Manual skills to improve joint mobility, ROM, and decrease pain. Utilized anatomy knowledge of the therapist, and assessment of patient's response to intervention. Dry needling to following Trigger points: lumbar paraspinals and right glute Needle length: 60mm 2.5 in. Cordova used 9, needles removed 9. Dry needling technique used: Basic needling and Deep needling. Patient education on purpose, precautions, safety, risks, and other treatment options regarding dry needling. Verbal consent received. Billing Therapeutic Exercise Treatment Minutes: 35 Manual TherapyTreatment Minutes: 10 Total Session Time (minutes): 45 Session Start Time : 1000 Session Stop Time : 1045 GEORGE TUCKER PT, DPChristus Highland [facility]03-26-2024 History of Present illness Narrative* George Tucker PT, ALEXANDRE - 11/15/2023 12:00 PM EDT Images from the original note were not included. Episode Visit Count: 15 Therapist That Will Accept/Oversee The Plan Of Care: Garrett Start of Care Date: 01/10/23 Onset Date: 01/11/16 Plan of Care Certification Date: 09/30/23 Next Certification Due Date: 12/09/23 Patient Identified by Name and Date of : Yes REHABILITATION AND SPORTS THERAPY PHYSICAL THERAPY DISCONTINUANCE OF CARE PLAN OF CARE UPDATE: Assessment: Chiara Croft is discontinued from Physical Therapy services due to goal achievement.and maximal benefit.. Patient was seen for 15 visits from Start of Care Date: 01/10/23 to 11/15/2023nd treatment included: Therapeutic exercise, Neuromuscular re-education, Manual therapy, and Self-shelter management. Pt at this time is independent with her home program and will be discharged essie independent program. Goals for Episode of Care: created on 01/10/23 through 03/21/23 Independent in home exercises. ONGOING Patient will decrease pain to 2/10 with functional activities to allow patient to improve ambulation and standing tolerance for ADLs. ONGOING Restore pain-free lumbar ROM to minimal limitation in standing flexion to allow for ADLs MET Stand / Walk 30 minutes without pain/symptoms.MET Knowledgeable regarding prophylaxis. Patient will increase strength of bilateral hips to 5/5 to allow for improve ability to complete ADLs. ONGOING Patient Goals: aleeviate pain and get stronger SUBJECTIVE: . Pt reports that she is doing much better and feels she has the tools to continue on her own Pain: PROMIS Scales 11/01/2023 09/29/2023 08/27/2023 Higher is Better Phys Func - Score 34 (moderate dysfunction) 30 (moderate dysfunction) 33 (moderate dysfunction) Phys Func - Percentile 5 2 4 Self-Eff Symptom - Score 41 (Average) 33 (Low) Self-Eff Symptom - Percentile 18 4 T-scores: mean of general population = 50. 5 points is clinically meaningfully difference Percentiles provide an indication of how the patient's score ranks in relation to the general population. Higher percentile rankings indicate better function/quality of life. 50th percentile is the average of the general population and indicates half of respondents had a worse score. OBJECTIVE MEASURES WITH LEVEL OF FUNCTION: TREATMENT: Therapeutic Exercise: 2: cat cow 5x10 3: ryan pose 30x3 4: happy baby stretch 30x3 5: seated hip ER stretch pt education and practice once on eac side 6: bridge with PPT and glute activation Skilled Intervention: Patient was educated in proper exercise technique and purpose for exercises. Skilled judgment was used in selection of appropriate interventions. Manual Therapy: 2: dry needle Skilled Intervention: Manual skills to improve joint mobility, ROM, and decrease pain. Utilized anatomy knowledge of the therapist, and assessment of patient's response to intervention. Dry needling to following Trigger points: lumbar paraspinals and right glute Needle length: 60mm 2.5 in. Cordova used 9, needles removed 9. Dry needling technique used: Basic needling and Deep needling. Patient education on purpose, precautions, safety, risks, and other treatment options regarding dry needling. Verbal consent received. Billing Therapeutic Exercise Treatment Minutes: 35 Manual TherapyTreatment Minutes: 10 Total Session Time (minutes): 45 Session Start Time : 1000 Session Stop Time : 1045 GEORGE TUCKER PT, DPT * George Tucker PT, DPT - 11/15/2023 10:34 AM EDT Program_ID:[id number] Access Code: [email or web address] URL: [email or web address] Date: 11-15-2023 Prepared By: George Tucker Program Notes Exercises - Cat Cow - 1-2 x daily - 7 x weekly - 2 sets - 10 reps - Supine Pelvic Floor Stretch - 1 x daily - 7 x weekly - 1 sets - 3-4 reps - Supine Sciatic Nerve Ewen - 1 x daily - 7 x weekly - 3 sets - 10 reps - Supine Posterior Pelvic Tilt - 1-2 x daily - 7 x weekly - 2 sets - 10 reps - Clamshell - 1 x daily - 3 x weekly - 2 sets - 10 reps - Supine Bridge - 1 x daily - 3 x weekly - 3 sets - 10 reps - Quadruped Alternating Leg Extensions - 1 x daily - 3 x weekly - 3 sets - 10 reps - Prone Hip Extension with Pillow Under Abdomen - 1 x daily - 3 x weekly - 3 sets - 10 reps documented in this encounterDiley [facility]03-20-2024 History of Present illness Narrative* Cynthia Bauer, RT(R) - 11/09/2023 9:30 AM EDT Radiology Service Progress Note PATIENT NAME: Chiara Croft DATE OF SERVICE: November 09, 2023 TIME: 9:39 AM PATIENT IDENTITY VERIFICATION COMPLETED USING TWO (2) IDENTIFIERS: Name and Date of confirmedby patient verbally. FALL SCREENING: Has the patient had 2 falls in the last year or 1 fall with injury or currently using an Ambulatory Assistive Device (Walker, Cane, Wheelchair, Crutches, etc.)? No PATIENT GENDER DATA: Female. status: : No status: NO. PATIENT RELEVANT IMPLANT DATA REVIEWED: Not Applicable PATIENT PRESENTS WITH AN IMPLANTABLE OR ATTACHED BULL RIVETER: No RADIOLOGY DEPARTMENT: General X-ray: Exam(s) Completed: Lower Extremity X- Ray(s): Foot, Right and Wt. Bearing PERIPHERAL IV DATA: Not applicable SIGNED BY: RT Coty(R) November 09, 2023 9:39 AM documented in this encounterDiley [facility] Medical Center03-15-2024 Instructions* Patient Instructions* Angie Aguirre APRN.CNP - 11/04/2023 2:32 PM EDT Ice, rest, prop, compression. If no improvement, come back for the xray. documented in this encounterDiley [facility] Center03-15-2024 History of Present illness Narrative* Angie Aguirre APRN.CNP - 11/04/2023 2:10 PM EDT This is a 78 year old female who presents today with: Patient presents with: Acute Visit: R foot swelling/pain; history of stress fracture in the same foot HISTORY OF PRESENT ILLNESS: Chiara Croft is a 78 year old female. Patient presents with: Acute Visit: R foot swelling/pain; history of stress fracture in the same foot Pt presents today w/ complaint of right foot pain. 1 1/2 years ago - nonunion stress fx of the lateral right foot. Last week, noticed a lump on the top of the right foot. No injury. + aches. Not awful. 3-4 Gabapentin. Tylenol. Suspects another stress fx. She also has a abrasion/cut on the right anterior gibson. Tdap due. PAST MEDICAL HISTORY: PAST MEDICAL HISTORY Diagnosis Date Abdominal pain Arthritis Asthma Degenerative disc disease Depression Disorder of bone and cartilage, unspecified History of transfusion HTN (hypertension) Hypothyroid Intrinsic asthma Mixed hyperlipidemia Hyperlipidemia Osteoarthrosis, unspecified whether generalized or localized, other specified sites PMH - PAST MEDICAL HISTORY OF CVA with weakness left side PMH - PAST MEDICAL HISTORY OF 2000 left cervical radiculopathy PMH - PAST MEDICAL HISTORY OF 2003 right rib fracture PMH - PAST MEDICAL HISTORY OF 2005 right shoulder impingement syndrome Spinal stenosis Stroke (HCC) 2005 Unspecified hypothyroidism PAST SURGICAL HISTORY Procedure Laterality Date APPENDECTOMY 1959 APPENDECTOMY HX BACK SURGERY HX 2016 L3-5 Decompression and Fusion CATARACT EXTRACTION HX Bilateral COLONOSCOPY N/A 09/15/2016 MAC EGD W/O [facility] SPEC VARICIES INJ 09/17/2016 EGD W/O [facility] SPEC VARICIES INJ 11/15/2022 EPIDURAL SITE SPECIFY lumbar spine EYE SURGERY HX PAST SURGICAL HISTORY OF 1976 thyroidectomy for toxic goiter SKIN BIOPSY HX TONSILLECTOMY HX TONSILLECTOMY PRIMARY/SECONDARY <AGE 11 Tonsillectomy ALLERGIES Cymbalta [Duloxetine], Fosamax [Alendronate Sodium], Septra [Sulfamethoxazole-Trimethoprim], Sulfamethoxazole, Tramadol, Trimethoprim, and Bupropion MEDICATIONS Current Outpatient Medications Medication Sig amitriptyline (ELAVIL) 10 mg tablet Take 1 tablet by mouth daily at bedtime. methocarbamol (ROBAXIN) 500 mg tablet Take 1 tablet by mouth two times a day as needed. gabapentin (NEURONTIN) 100 mg capsule take two pills by mouth three times daily. rosuvastatin (CRESTOR) 5 mg tablet Take 1 tablet by mouth once daily. guaifenesin/phenylephrine HCl (MUCINEX COLD ORAL) Take by mouth. ondansetron orally disintegrating (ZOFRAN ODT) 4 mg disintegrating tablet Take 1 tablet by mouth every 8 hours as needed. fluticasone/vilanterol (BREO ELLIPTA INHALATION) Inhale 1 Puff as instructed once daily. lansoprazole (PREVACID) 15 mg capsule Take 1 capsule by mouth once daily. L. rhamnosus GG/inulin ([facility] ORAL) Take 1 tablet by mouth once daily. losartan (COZAAR) 50 mg tablet TAKE 1 & 1/2 (ONE & ONE-HALF) TABLETS BY MOUTH ONCE DAILY levothyroxine (LEVOXYL) 88 mcg tablet Take 1 tablet by mouth once daily. Take on empty stomach. ForThyroid clopidogrel (PLAVIX) 75 mg tablet Take 1 tablet by mouth once daily. [facility] ID: [id number] [email or web address] albuterol HFA (VENTOLIN HFA) 90 mcg/actuation inhaler Inhale 2 Puffs as instructed every 4 hours asneeded for wheezing/shortness of breath. lidocaine (SALONPAS) 4 % patch Apply as directed once daily. denosumab (PROLIA) 60 mg/mL syrg Inject 60 mg subcutaneously one time only. Cholecalciferol, Vitamin D3, 25 mcg (1,000 unit) cap Vitamin D acetaminophen (TYLENOL) 500 mg tablet Take 500 mg by mouth every 8 hours as needed. No current facility-administered medications for this visit. FAMILY HISTORY Problem Relation Age of Onset Cerebral Embolism Mother Osteoporosis Mother other (spinal stenosis) Mother other (depression) Mother other (cva) Mother other (depression) Father other (tramatic brain syndrome) Father s/p MVA other (aplastic thyroid tumor) Sister Depression Brother Stroke Maternal Grandfather Colon Cancer No Family History Social History Tobacco Use Smoking status: Former Packs/day: 0.50 Years: 8.00 Additional pack years: 0.00 Total pack years: 4.00 Types: Cigarettes Smokeless tobacco: Never Tobacco comments: quit in 1969 Vaping Use Vaping Use: Never used Substance Use Topics Alcohol use: Yes Comment: 1-2 times per week Drug use: No EXAM: BP 126/78 Pulse 100 Resp 16 PHYSICAL EXAM: General Appearance: Well appearing, alert, in no acute distress, well-hydrated, well nourished.. Skin: Skin color, texture, turgor normal, no suspicious rashes or lesions. Head: Normocephalic, no masses, lesions, tenderness or abnormalities. Eyes: Anicteric sclera. Extraocular movements are intact. . Extremities: dorsal aspect of the right foot with red, firm, nonmobile lump - tender to touch. Neurologic: Gait normal. ASSESSMENT/PLAN: 1. Foot pain, right - ICD9: 729.5, ICD10: M79.671 (primary diagnosis) She will try conservative measures (ice, prop, compression, rest). If no improvement, she will return for an xray. - XR FOOT GENERAL 3V AP/LAT/OBL RIGHT 2. Encounter for immunization - ICD9: V03.89, ICD10: Z23 - TDAP PRINTED PHARMACY INSTRUCTIONS 3. Cut of skin of right lower leg - ICD9: , ICD10: S81.811A Keep clean and dry. Antibiotic ointment. - TDAP PRINTED PHARMACY INSTRUCTIONS Discussed treatment plan and patient voices understanding. Patient's questions answered appropriately. Medications and potential side effects were discussed and patient voices understanding. Return to the office as scheduled or as needed for worsening/no improvement. Angie Aguirre APRN.WEIGHT ANALYST documented in this encounterDiley [facility] Center03-12-2024 NoteHNO ID: [id number] Author: GEORGE TUCKER, PT, DPT Service: ? Author Type: Physical Therapist Type: Progress Notes Filed: 11/01/2023 11:15 Note Text: Episode Visit Count: 14 Therapist That Will Accept/Oversee The Plan Of Care: Garrett Start of Care Date: 01/10/23 Onset Date: 01/11/16 Plan of Care Certification Date: 09/30/23 Next Certification Due Date: 12/09/23 Patient Identified by Name and Date of : Yes REHABILITATION AND SPORTS THERAPY PHYSICAL THERAPY PROGRESS REPORT PLAN OF CARE UPDATE: Assessment: Chiara Croft demonstrates moderate improvement in standing and walking. She has progressed toward goals. Patient continues to present with impairments in ADL's, independence in exercise, overall function, range of motion, strength, symptom management, and tissue tenderness that interfere with . Current prognosis is Good due to: current objective clinical presentation . Pt demonstrates good technique with exercise. She has point tenderness right glute, piriformis, deeper hip rotators. She will benefit from continued skilled therapy services to meet the updated goals for this plan of care as noted below. Goals for Episode of Care: created on 01/10/23 through 03/21/23 Independent in home exercises. ONGOING Patient will decrease pain to 2/10 with functional activities to allow patient to improve ambulation and standing tolerance for ADLs. ONGOING Restore pain-free lumbar ROM to minimal limitation in standing flexion to allow for ADLs MET Stand / Walk 30 minutes without pain/symptoms.MET Knowledgeable regarding prophylaxis. Patient will increase strength of bilateral hips to 5/5 to allow for improve ability to complete ADLs. ONGOING Patient Goals: aleeviate pain and get stronger Planned Interventions, Frequency, and Duration: 1x every other week, 8 weeks Total Number of Visits Planned: 4 Patient to be seen for Therapeutic exercise (22766), Neuromuscular re-education (50797), Manual therapy (35500), Therapeutic activities (42712), Self-shelter management (02088), Gait Training (52497), Patient/Family/Caregiver Education, Body Mechanics Training, Functional training, General Conditioning, E-Stim Unattended (70383) PLAN FOR NEXT VISIT: assess tolerance to dry needling, progress relaxation, progress core stabilization SUBJECTIVE: . Pt reports that during the move she flared up but her pain has calmed down and she has been doing her ex's. Pain: PROMIS Scales 11/01/2023 09/29/2023 08/27/2023 Higher is Better Phys Func - Score 34 (moderate dysfunction) 30 (moderate dysfunction) 33 (moderate dysfunction) Phys Func - Percentile 5 2 4 Self-Eff Symptom - Score 41 (Average) 33 (Low) Self-Eff Symptom - Percentile 18 4 T-scores: mean of general population = 50. 5 points is clinically meaningfully difference Percentiles provide an indication of how the patient's score ranks in relation to the general population. Higher percentile rankings indicate better function/quality of life. 50th percentile is the average of the general population and indicates half of respondents had a worse score. OBJECTIVE MEASURES WITH LEVEL OF FUNCTION: Spine Observations R Lumbar Spine Palpation Tenderness: Gluteals, Piriformis Lumbar Spine AROM Lumbar Flexion: Minimal limitation (sore in low back) Lumbar Extension: Moderate limitation (sore) Lumbar R Side-Bend: Minimal limitation TREATMENT: Therapeutic Exercise: 2: reassessment 3: happy baby stretch 30x3 4: review of home program Skilled Intervention: Patient was educated in proper exercise technique and purpose for exercises. Skilled judgment was used in selection of appropriate interventions. Manual Therapy: 2: dry needle Skilled Intervention: Manual skills to improve joint mobility, ROM, and decrease pain. Utilized anatomy knowledge of the therapist, and assessment of patient's response to intervention. Dry needling to following Trigger points: right glute x 3, left glute x 3 Needle length: 75mm 3.0 in . Cordova used 6, needles removed 6. Dry needling technique used: Deep needling. Patient education on purpose, precautions, safety, risks, and other treatment options regarding dry needling. Verbal consent received. Billing Therapeutic Exercise Treatment Minutes: 30 Manual TherapyTreatment Minutes: 12 Total Session Time (minutes): 42 Session Start Time : 917 Session Stop Time : 1000 GEORGE TUCKER PT, DPChrist[facility]land [facility] History of Present illness Narrative* George Tucker PT, DPT - 11/01/2023 9:59 AM EDT Program_ID:[id number] Access Code: [email or web address] URL: [email or web address] Date: 11-01-2023 Prepared By: George Tucker Program Notes Exercises - Clamshell - 1-2 x daily - 7 x weekly - 2 sets - 10 reps - Cat Cow - 1-2 x daily - 7 x weekly - 2 sets - 10 reps - Supine Posterior Pelvic Tilt - 1-2 x daily - 7 x weekly - 2 sets - 10 reps - Supine Pelvic Floor Stretch - 1 x daily - 7 x weekly - 1 sets - 3-4 reps * George Tucker PT, DPT - 11/01/2023 9:20 AM EDT Images from the original note were not included. Episode Visit Count: 14 Therapist That Will Accept/Oversee The Plan Of Care: Garrett Start of Care Date: 01/10/23 Onset Date: 01/11/16 Plan of Care Certification Date: 09/30/23 Next Certification Due Date: 12/09/23 Patient Identified by Name and Date of : Yes REHABILITATION AND SPORTS THERAPY PHYSICAL THERAPY PROGRESS REPORT PLAN OF CARE UPDATE: Assessment: Chiara Croft demonstrates moderate improvement in standing and walking. She has progressed toward goals. Patient continues to present with impairments in ADL's, independence in exercise, overall function, range of motion, strength, symptom management, and tissue tenderness that interfere with . Current prognosis is Good due to: current objective clinical presentation . Pt demonstrates good technique with exercise. She has point tenderness right glute, piriformis, deeper hip rotators. She will benefit from continued skilled therapy services to meet the updated goals for this plan of care asnoted below. Goals for Episode of Care: created on 01/10/23 through 03/21/23 Independent in home exercises. ONGOING Patient will decrease pain to 2/10 with functional activities to allow patient to improve ambulation and standing tolerance for ADLs. ONGOING Restore pain-free lumbar ROM to minimal limitation in standing flexion to allow for ADLs MET Stand / Walk 30 minutes without pain/symptoms.MET Knowledgeable regarding prophylaxis. Patient will increase strength of bilateral hips to 5/5 to allow for improve ability to complete ADLs. ONGOING Patient Goals: aleeviate pain and get stronger Planned Interventions, Frequency, and Duration: 1x every other week, 8 weeks Total Number of Visits Planned: 4 Patient to be seen for Therapeutic exercise (17600), Neuromuscular re-education (06005), Manual therapy (82365), Therapeutic activities (24706), Self-shelter management (74575), Gait Training (43705), Patient/Family/Caregiver Education, Body Mechanics Training, Functional training, General Conditioning, E-Stim Unattended (39653) PLAN FOR NEXT VISIT: assess tolerance to dry needling, progress relaxation, progress core stabilization SUBJECTIVE: . Pt reports that during the move she flared up but her pain has calmed down and she has been doing her ex's. Pain: PROMIS Scales 11/01/2023 09/29/2023 08/27/2023 Higher is Better Phys Func - Score 34 (moderate dysfunction) 30 (moderate dysfunction) 33 (moderate dysfunction) Phys Func - Percentile 5 2 4 Self-Eff Symptom - Score 41 (Average) 33 (Low) Self-Eff Symptom - Percentile 18 4 T-scores: mean of general population = 50. 5 points is clinically meaningfully difference Percentiles provide an indication of how the patient's score ranks in relation to the general population. Higher percentile rankings indicate better function/quality of life. 50th percentile is the average of the general population and indicates half of respondents had a worse score. OBJECTIVE MEASURES WITH LEVEL OF FUNCTION: Spine Observations R Lumbar Spine Palpation Tenderness: Gluteals, Piriformis Lumbar Spine AROM Lumbar Flexion: Minimal limitation (sore in low back) Lumbar Extension: Moderate limitation (sore) Lumbar R Side-Bend: Minimal limitation TREATMENT: Therapeutic Exercise: 2: reassessment 3: happy baby stretch 30x3 4: review of home program Skilled Intervention: Patient was educated in proper exercise technique and purpose for exercises. Skilled judgment was used in selection of appropriate interventions. Manual Therapy: 2: dry needle Skilled Intervention: Manual skills to improve joint mobility, ROM, and decrease pain. Utilized anatomy knowledge of the therapist, and assessment of patient's response to intervention. Dry needling to following Trigger points: right glute x 3, left glute x 3 Needle length: 75mm 3.0 in . Cordova used 6, needles removed 6. Dry needling technique used: Deep needling. Patient educationon purpose, precautions, safety, risks, and other treatment options regarding dry needling. Verbal consent received. Billing Therapeutic Exercise Treatment Minutes: 30 Manual TherapyTreatment Minutes: 12 Total Session Time (minutes): 42 Session Start Time : 917 Session Stop Time : 1000 GEORGE TUCKER PT, DPT documented in this encounterDiley [facility] Medical Center03-11-2024 Instructions* Patient Instructions* Angie Aguirre APRN.CNP - 10/31/2023 12:05 PM EDT Start the amitriptyline at bedtime. Let me know how it is working. documented in this encounterDiley Ridge Medical Center03-11-2024 History of Present illness Narrative* Angie Aguirre APRN.CNP - 10/31/2023 11:33 AM EDT This is a 78 year old female who presents today with: Patient presents with: Follow Up: Continued bowel issues and chronic back pain HISTORY OF PRESENT ILLNESS: Chiara Croft is a 78 year old female. Patient presents with: Follow Up: Continued bowel issues and chronic back pain Pt presents today to follow-up. Continues with some chronic back pain. The ablation was about 80% successful. Taking the gabapentin 200 mg daily. She is managing with the current medication, but realizing that his likely will be progressive in nature. ? Returning to using hydrocodone in the future if unable to manage. Refers that since her last hospitalization and antibiotics, she continues to have fluctuating bowelissues. Will go from diarrhea to constipation. She does continue on probiotics. She had a normal colonoscopy. Questions if possible IBS. Has had stress. Recently moved. PAST MEDICAL HISTORY: PAST MEDICAL HISTORY Diagnosis Date Abdominal pain Arthritis Asthma Degenerative disc disease Depression Disorder of bone and cartilage, unspecified History of transfusion HTN (hypertension) Hypothyroid Intrinsic asthma Mixed hyperlipidemia Hyperlipidemia Osteoarthrosis, unspecified whether generalized or localized, other specified sites PMH - PAST MEDICAL HISTORY OF CVA with weakness left side PMH - PAST MEDICAL HISTORY OF 2000 left cervical radiculopathy PMH - PAST MEDICAL HISTORY OF 2003 right rib fracture PMH - PAST MEDICAL HISTORY OF 2005 right shoulder impingement syndrome Spinal stenosis Stroke (HCC) 2005 Unspecified hypothyroidism PAST SURGICAL HISTORY Procedure Laterality Date APPENDECTOMY 1960 APPENDECTOMY HX BACK SURGERY HX 2017 L3-5 Decompression and Fusion CATARACT EXTRACTION HX Bilateral COLONOSCOPY N/A 09/15/2016 MAC EGD W/O [facility] SPEC VARICIES INJ 09/17/2016 EGD W/O [facility] SPEC VARICIES INJ 11/15/2022 EPIDURAL SITE SPECIFY lumbar spine EYE SURGERY HX PAST SURGICAL HISTORY OF 1976 thyroidectomy for toxic goiter SKIN BIOPSY HX TONSILLECTOMY HX TONSILLECTOMY PRIMARY/SECONDARY <AGE 11 Tonsillectomy ALLERGIES Cymbalta [Duloxetine], Fosamax [Alendronate Sodium], Septra [Sulfamethoxazole-Trimethoprim], Sulfamethoxazole, Tramadol, Trimethoprim, and Bupropion MEDICATIONS Current Outpatient Medications Medication Sig methocarbamol (ROBAXIN) 500 mg tablet Take 1 tablet by mouth two times a day as needed. gabapentin (NEURONTIN) 100 mg capsule take two pills by mouth three times daily. rosuvastatin (CRESTOR) 5 mg tablet Take 1 tablet by mouth once daily. guaifenesin/phenylephrine HCl (MUCINEX COLD ORAL) Take by mouth. ondansetron orally disintegrating (ZOFRAN ODT) 4 mg disintegrating tablet Take 1 tablet by mouth every 8 hours as needed. fluticasone/vilanterol (BREO ELLIPTA INHALATION) Inhale 1 Puff as instructed once daily. lansoprazole (PREVACID) 15 mg capsule Take 1 capsule by mouth once daily. L. rhamnosus GG/inulin ([facility] ORAL) Take 1 tablet by mouth once daily. losartan (COZAAR) 50 mg tablet TAKE 1 & 1/2 (ONE & ONE-HALF) TABLETS BY MOUTH ONCE DAILY levothyroxine (LEVOXYL) 88 mcg tablet Take 1 tablet by mouth once daily. Take on empty stomach. ForThyroid clopidogrel (PLAVIX) 75 mg tablet Take 1 tablet by mouth once daily. [facility] ID: [id number] [email or web address] albuterol HFA (VENTOLIN HFA) 90 mcg/actuation inhaler Inhale 2 Puffs as instructed every 4 hours asneeded for wheezing/shortness of breath. lidocaine (SALONPAS) 4 % patch Apply as directed once daily. denosumab (PROLIA) 60 mg/mL syrg Inject 60 mg subcutaneously one time only. Cholecalciferol, Vitamin D3, 25 mcg (1,000 unit) cap Vitamin D acetaminophen (TYLENOL) 500 mg tablet Take 500 mg by mouth every 8 hours as needed. No current facility-administered medications for this visit. FAMILY HISTORY Problem Relation Age of Onset Cerebral Embolism Mother Osteoporosis Mother other (spinal stenosis) Mother other (depression) Mother other (cva) Mother other (depression) Father other (tramatic brain syndrome) Father s/p MVA other (aplastic thyroid tumor) Sister Depression Brother Stroke Maternal Grandfather Colon Cancer No Family History Social History Tobacco Use Smoking status: Former Packs/day: 0.50 Years: 8.00 Additional pack years: 0.00 Total pack years: 4.00 Types: Cigarettes Smokeless tobacco: Never Tobacco comments: quit in 1969 Vaping Use Vaping Use: Never used Substance Use Topics Alcohol use: Yes Comment: 1-2 times per week Drug use: No EXAM: BP 120/72 Pulse 66 Resp 16 Wt 64 kg (141 lb 3.2 oz) SpO2 98% BMI 25.01 kg/m PHYSICAL EXAM: General Appearance: Well appearing, alert, in no acute distress, well-hydrated, well nourished.. Skin: Skin color, texture, turgor normal, no suspicious rashes or lesions. Head: Normocephalic, no masses, lesions, tenderness or abnormalities. Eyes: Anicteric sclera. Extraocular movements are intact. . Lungs: Lungs clear to auscultation. No wheezing, rhonchi, rales.. Heart: RRR without murmur, gallop, or rubs. No ectopy. Abdomen: Abdomen soft, generalized tenderness. Bowel sounds normal. No masses, organomegaly. Extremities: No deformities, edema, skin discoloration, clubbing or cyanosis. Good capillary refill. . Neurologic: Gait normal. ASSESSMENT/PLAN: 1. Chronic right-sided low back pain without sciatica - ICD9: 724.2, 338.29, ICD10: M54.50, G89.29 (primary diagnosis) Continue gabapentin. Start amitriptyline. She previously has tried cymbalta, but caused tremors. Discussed potential side effects of ordered medications. Patient voices understanding. She will let us know if pain is not controlled. 2. Bowel habit changes - ICD9: 787.99, ICD10: R19.4 ? If component of IBS. Will start amitriptyline. Continue probiotics. Discussed treatment plan and patient voices understanding. Patient's questions answered appropriately. Medications and potential side effects were discussed and patient voices understanding. Return to the office as scheduled or as needed for worsening/no improvement. Angie Aguirre APRN.WEIGHT ANALYST documented in this encounterDiley [facility] Center03-08-2024 Miscellaneous Notes* Telephone Encounter - Samina Govea RN - 10/28/2023 10:56 AM EST Received a refill request via [employer] from patient for the following medication(s): Requested Prescriptions Pending Prescriptions Disp Refills methocarbamol (ROBAXIN) 500 mg tablet 60 tablet 0 Sig: Take 1 tablet by mouth two times a day as needed. The pharmacy has been populated. Last (Rx'd/filled) by 05/30/2023 by Quita Barth CNP Last Appointment(s) 08/31/2023 w/Quita Barth CNP Next Appointment(s) None Routing to provider. Please review/advise. Samina Govea RN documented in this encounterDiley Ridge Medical Center02-19-2024 Miscellaneous Notes* Telephone Encounter - Rafy Hughes MD - 10/10/2023 7:30 PM EST The following approved medication requests have been transmitted electronically. Requested Prescriptions Signed Prescriptions Disp Refills gabapentin (NEURONTIN) 100 mg capsule 180 capsule 0 Sig: take two pills by mouth three times daily. Rafy Hughes MD * Telephone Encounter - Shayla Barlow Ma - 10/10/2023 6:44 PM EST See mychart message. Patient has been identified by name and date of : Yes, Provider Angie Aguirre APRN.WEIGHT ANALYST Date October 10, 2023 Time 6:45 PM Patient phones for refill(s): Requested Prescriptions Pending Prescriptions Disp Refills gabapentin (NEURONTIN) 100 mg capsule 180 capsule 0 Sig: Start one pill by mouth three times daily. After two days, start titrating up to two pills by mouth three times daily. Date of last office visit in primary care: 09/12/2023 Date of next office visit in primary care: 10/18/2023 Please advise. Thank you. Shayla Barlow Ma. documented in this encounterDiley Ridge Medical Center02-09-2024 NoteHNO ID: [id number] Author: GEORGE TUCKER, PT, DPT Service: ? Author Type: Physical Therapist Type: Progress Notes Filed: 09/30/2023 11:13 Note Text: Episode Visit Count: 13 Therapist That Will Accept/Oversee The Plan Of Care: Garrett Start of Care Date: 01/10/23 Onset Date: 01/11/16 Plan of Care Certification Date: 09/30/23 Next Certification Due Date: 12/09/23 Patient Identified by Name and Date of : Yes REHABILITATION AND SPORTS THERAPY PHYSICAL THERAPY PROGRESS REPORT PLAN OF CARE UPDATE: Assessment: Chiara Croft demonstrates minimal improvement in standing and walking. She has had some set backs with her pain but had a recent ablation that significantly reduced her symptoms, She has positive sacral signs but could also be tissue sensitization,. Patient continues to present with impairments in ADL's, gait, overall function, strength, symptom management, and tissue tenderness that interfere with . Current prognosis is good.Good due to: current objective clinical presentation . She will benefit from continued skilled therapy services to meet the updated goals for this plan of care as noted below. Goals for Episode of Care: created on 01/10/23 through 03/21/23 Independent in home exercises. ONGOING Patient will decrease pain to 2/10 with functional activities to allow patient to improve ambulation and standing tolerance for ADLs. ONGOING Restore pain-free lumbar ROM to minimal limitation in standing flexion to allow for ADLs MET Stand / Walk 30 minutes without pain/symptoms.MET Knowledgeable regarding prophylaxis. Patient will increase strength of bilateral hips to 5/5 to allow for improve ability to complete ADLs. ONGOING Patient Goals: aleeviate pain and get stronger Planned Interventions, Frequency, and Duration: 1x every other week, 8 weeks Total Number of Visits Planned: 4 Patient to be seen for Therapeutic exercise (97515), Neuromuscular re-education (00950), Manual therapy (41191), Therapeutic activities (62438), Self-shelter management (92786), Gait Training (83178), Patient/Family/Caregiver Education, Body Mechanics Training, Functional training, General Conditioning, E-Stim Unattended (02110) SUBJECTIVE: . Pt reports left leg pain to her left knee but had ablation and that has helped. She reports more pain in her glutes. Pain: PROMIS Scales Higher is Better 09/29/2023 08/27/2023 07/05/2023 Phys Func - Score 30 (moderate dysfunction) 33 (moderate dysfunction) 44 (mild dysfunction) Phys Func - Percentile 2% 4% 27% Self-Eff Symptom - Score 33 (Low) - 48 (Average) Self-Eff Symptom - Percentile 4% - 42% T-scores: mean of general population = 50. 5 points is clinically meaningfully difference Percentiles provide an indication of how the patient's score ranks in relation to the general population. Higher percentile rankings indicate better function/quality of life. 50th percentile is the average of the general population and indicates half of respondents had a worse score. OBJECTIVE MEASURES WITH LEVEL OF FUNCTION: Special Tests - Hip and Spine Hip and Spine Special Tests: SI Cluster Tests Thigh Thrust Test: Right Positive SI Distraction Test: Right Positive SI Compression Test: Right Negative, Right Positive Sacral Thrust: Right Negative Pelvic Torsion (Gaenslen's): Right Negative TREATMENT: Therapeutic Exercise: 2: cat/cow 10x 3: reassessment 4: ryan pose 5: PPT 5x10 6: clamshell right 10x Skilled Intervention: Patient was educated in proper exercise technique and purpose for exercises. Skilled judgment was used in selection of appropriate interventions. Manual Therapy: 2: dry needle Skilled Intervention: Manual skills to improve joint mobility, ROM, and decrease pain. Utilized anatomy knowledge of the therapist, and assessment of patient's response to intervention. Dry needling to following Trigger points: right glute Needle length: 60mm 2.5 in. Cordova used 3, needles removed 3. Dry needling technique used: Pistoning and Deep needling. Patient education on purpose, precautions, safety, risks, and other treatment options regarding dry needling. Verbal consent received. Billing Therapeutic Exercise Treatment Minutes: 35 Manual TherapyTreatment Minutes: 10 Total Session Time (minutes): 45 Session Start Time : 1015 Session Stop Time : 1100 GEORGE TUCKER PT, [facility] History of Present illness Narrative* George Tucker PT, DPT - 09/30/2023 10:59 AM EST Program_ID:[id number] Access Code: [email or web address] URL: [email or web address] Date: 09-30-2023 Prepared By: George Tucker Program Notes Exercises - Clamshell - 1-2 x daily - 7 x weekly - 2 sets - 10 reps - Cat Cow - 1-2 x daily - 7 x weekly - 2 sets - 10 reps - Supine Posterior Pelvic Tilt - 1-2 x daily - 7 x weekly - 2 sets - 10 reps * George Tucker PT, DPT - 09/30/2023 10:18 AM EST Episode Visit Count: 13 Therapist That Will Accept/Oversee The Plan Of Care: Garrett Start of Care Date: 01/10/23 Onset Date: 01/11/16 Plan of Care Certification Date: 09/30/23 Next Certification Due Date: 12/09/23 Patient Identified by Name and Date of : Yes REHABILITATION AND SPORTS THERAPY PHYSICAL THERAPY PROGRESS REPORT PLAN OF CARE UPDATE: Assessment: Chiara Croft demonstrates minimal improvement in standing and walking. She has had some set backs with her pain but had a recent ablation that significantly reduced her symptoms, She has positive sacral signs but could also be tissue sensitization,. Patient continues to present with impairments in ADL's, gait, overall function, strength, symptom management, and tissue tenderness that interferewith . Current prognosis is good.Good due to: current objective clinical presentation . She will benefit from continued skilled therapy services to meet the updated goals for this plan of care as noted below. Goals for Episode of Care: created on 01/10/23 through 03/21/23 Independent in home exercises. ONGOING Patient will decrease pain to 2/10 with functional activities to allow patient to improve ambulation and standing tolerance for ADLs. ONGOING Restore pain-free lumbar ROM to minimal limitation in standing flexion to allow for ADLs MET Stand / Walk 30 minutes without pain/symptoms.MET Knowledgeable regarding prophylaxis. Patient will increase strength of bilateral hips to 5/5 to allow for improve ability to complete ADLs. ONGOING Patient Goals: aleeviate pain and get stronger Planned Interventions, Frequency, and Duration: 1x every other week, 8 weeks Total Number of Visits Planned: 4 Patient to be seen for Therapeutic exercise (14503), Neuromuscular re-education (32371), Manual therapy (05733), Therapeutic activities (86584), Self-shelter management (99971), Gait Training (60830), Patient/Family/Caregiver Education, Body Mechanics Training, Functional training, General Conditioning, E-Stim Unattended (31324) SUBJECTIVE: . Pt reports left leg pain to her left knee but had ablation and that has helped. She reports more pain in her glutes. Pain: PROMIS Scales Higher is Better 09/29/2023 08/27/2023 07/05/2023 Phys Func - Score 30 (moderate dysfunction) 33 (moderate dysfunction) 44 (mild dysfunction) Phys Func - Percentile 2% 4% 27% Self-Eff Symptom - Score 33 (Low) - 48 (Average) Self-Eff Symptom - Percentile 4% - 42% T-scores: mean of general population = 50. 5 points is clinically meaningfully difference Percentiles provide an indication of how the patient's score ranks in relation to the general population. Higher percentile rankings indicate better function/quality of life. 50th percentile is the average of the general population and indicates half of respondents had a worse score. OBJECTIVE MEASURES WITH LEVEL OF FUNCTION: Special Tests - Hip and Spine Hip and Spine Special Tests: SI Cluster Tests Thigh Thrust Test: Right Positive SI Distraction Test: Right Positive SI Compression Test: Right Negative, Right Positive Sacral Thrust: Right Negative Pelvic Torsion (Gaenslen's): Right Negative TREATMENT: Therapeutic Exercise: 2: cat/cow 10x 3: reassessment 4: ryan pose 5: PPT 5x10 6: clamshell right 10x Skilled Intervention: Patient was educated in proper exercise technique and purpose for exercises. Skilled judgment was used in selection of appropriate interventions. Manual Therapy: 2: dry needle Skilled Intervention: Manual skills to improve joint mobility, ROM, and decrease pain. Utilized anatomy knowledge of the therapist, and assessment of patient's response to intervention. Dry needling to following Trigger points: right glute Needle length: 60mm 2.5 in. Cordova used 3, needles removed 3. Dry needling technique used: Pistoning and Deep needling. Patient education on purpose, precautions, safety, risks, and other treatment options regarding dry needling. Verbal consentreceived. Billing Therapeutic Exercise Treatment Minutes: 35 Manual TherapyTreatment Minutes: 10 Total Session Time (minutes): 45 Session Start Time : 1015 Session Stop Time : 1100 GEORGE TUCKER PT, DPT documented in this encounterD[facility]01-13-2024 History of Present illness Narrative* Judy Webster RT(R) - 09/03/2023 11:20 AM EST Radiology Service Progress Note PATIENT NAME: Chiara Croft DATE OF SERVICE: September 03, 2023 TIME: 11:10 AM PATIENT IDENTITY VERIFICATION COMPLETED USING TWO (2) IDENTIFIERS: Name and Date of confirmedby patient verbally. FALL SCREENING: Has the patient had 2 falls in the last year or 1 fall with injury or currently using an Ambulatory Assistive Device (Walker, Cane, Wheelchair, Crutches, etc.)? No PATIENT GENDER DATA: Female. status: : No status: NO. PATIENT RELEVANT IMPLANT DATA REVIEWED: Yes RADIOLOGY DEPARTMENT: General X-ray: Exam(s) Completed: Chest X-Ray PERIPHERAL IV DATA: Not applicable SIGNED BY: RT Cindy(R) September 03, 2023 11:10 AM documented in this encounterDiley Ridge Medical Center12-14-2023 NoteHNO ID: [id number] Author: Jamila Rodriguez RN Service: Nursing Author Type: Registered Nurse Type: Nursing Progress Note Filed: 08/04/2023 8:34 AM Note Text: Other: pt ready for OR, call light in reach, Ed called to bedside.[facility] History of Present illness Narrative* Susanna Sethi RN - 08/01/2023 2:34 PM EST RADIOLOGY SERVICE PROGRESS NOTE SERVICE DATE: 08/01/2023 SERVICE TIME: 814 PATIENT IDENTITY VERIFICATION COMPLETED USING TWO (2) METHODS: Patient confirmed name and Date of verbally. ALLERGIES AND MEDICATIONS REVIEWED BY: Susanna Sethi RN PROCEDURE TYPE: NM STRESS: 0.4 mg of Lexiscan was administered IV at 0842 over 10 Seconds by Susanna Sethi RN Reversal agent used:None LOT [id number] EXP 02/13 IV SITE: IV palced by nuclear tecnologist POST EXAM PIV STATUS: Discontinued by [place] [facility] PATIENT DISCHARGED TO: Nuclear Medicine Department for post stress imaging A Diagnostic radioactive procedure has taken place, with no further precautions necessary other than routine body substance precautions. More information regarding radiation safety can be found usingthis link: [email or web address]%[email or web address]%[email or web address] SIGNATURE: Susanna Sethi RN PATIENT NAME:Chiara Croft DATE: 08/01/23 TIME: 2:34 PM documented in this encounterDiley Ridge Medical Center12-11-2023 History of Present illness Narrative* Muriel Hi, RT(R) - 08/01/2023 7:00 AM EST RADIOLOGY SERVICE PROGRESS NOTE SERVICE DATE: 08/01/2023 SERVICE TIME: 07:10 AM PATIENT IDENTITY VERIFICATION COMPLETED USING TWO (2) STANDARD IDENTIFIERS: Name and Date of confirmed by patient verbally FALL SCREENING: Has the patient had 2 falls in the last year or 1 fall with injury or currently using an Ambulatory Assistive Device (Walker, Cane, Wheelchair, Crutches, etc.)? No PATIENT GENDER DATA: .female : No ALLERGIES: Reviewed and unchanged MEDICATIONS REVIEWED: No PATIENT RELEVANT IMPLANT DATA REVIEWED: Not Applicable CREATININE: Creatinine Date Value Ref Range Status 07/07/2023 0.69 0.58 - 0.96 mg/dL Final 06/08/2023 0.72 0.58 - 0.96 mg/dL Final 06/06/2023 0.66 0.58 - 0.96 mg/dL Final Estimated Glomerular Filtration Rate Date Value Ref Range Status 07/07/2023 88 >=60 mL/min/1.73m Final Comment: Estimated Glomerular Filtration Rate (eGFR) is calculated using the 2020 CKD-EPI creatinine equation. This equation utilizes serum creatinine, sex, and age as parameters. The creatinine assay has traceable calibration to isotope dilution- mass spectrometry. Refer to KDIGO guidelines for clinical interpretation. In patients with unstable renal function, e.g. those with acute kidney injury, the eGFRmay not accurately reflect actual GFR. eGFR- Date Value Ref Range Status 08/31/2019 >60 Final P.O.C.T. RESULTS: N/A August 01, [address] PERFORMED: No IV SITE: Ambulatory: A peripheral IV was started in the Right antecubital site with a Angio cath: 22 gauge. POST EXAM PIV STATUS: Discontinued PROCEDURE TYPE: NM Stress: 13.1 mCi [id number] was administered IV for Rest Imaging at 07:20 by Muriel Hi. 32.2 mCi [id number] was administered IV for Stress Imaging at 08:42 by Muriel Hi. ADMINISTRATION TIME: PATIENT DISCHARGED TO: Ambulatory patient, left [place] department area. A Diagnostic radioactive procedure has taken place, with no further precautions necessary other than routine body substance precautions. More information regarding radiation safety can be found usingthis link: [email or web address] 20Diagnostic%20Nuclear%20Medicine%20Procedures.pdf SIGNATURE: RT Smita(Siva) PATIENT NAME: Chiara Croft DATE: August 01, 2023 TIME: 07:10 AM PAGER/CONTACT #: documented in this encounterDiley Ridge Medical Center11-30-2023 NoteHNO ID: [id number] Author: George Tucker, PT, DPT Service: ? Author Type: Physical Therapist Type: Progress Notes Filed: 07/21/2023 11:12 AM Note Text: Episode Visit Count: 12 Therapist That Will Accept/Oversee The Plan Of Care: Garrett Start of Care Date: 01/10/23 Onset Date: 01/11/16 Plan of Care Certification Date: 05/05/23 Next Certification Due Date: 08/21/23 Patient Identified by Name and Date of : Yes REHABILITATION AND SPORTS THERAPY PHYSICAL THERAPY TREATMENT NOTE ASSESSMENT: Chiara Croft tolerated the session with decreased symptoms. She demonstrated improvements in stiffness, pain post treatment. The patient will continue to benefit from ongoing skilled physical therapy to progress toward set goals and for reassessment by supervising therapist. PLAN FOR NEXT VISIT: reassessment and plan for discharge SUBJECTIVE: Pt reports she is more stiff this AM. Pain: Pain Pain Level: 4 Pain Location: Low Back/Lumbar Spine- Midline OBJECTIVE MEASURES WITH LEVEL OF FUNCTION: TREATMENT: Therapeutic Exercise: 2: cat cow 10x 3: cat cow 10x10 4: ryan pose 10x10 5: pt education in slow return to exercise, body mechanics with vacuum and housework, Skilled Intervention: Patient was educated in proper exercise technique and purpose for exercises. Skilled judgment was used in selection of appropriate interventions. Manual Therapy: 1: STM bilateral lumbar paraspinals and superior glutes 2: dry needle Skilled Intervention: Manual skills to improve joint mobility, ROM, and decrease pain. Utilized anatomy knowledge of the therapist, and assessment of patient's response to intervention. Dry needling to following Trigger points: lumbar paraspinals and superior glutes Needle length: 40mm 1.5 in and 60mm 2.5 in. Cordova used 10, needles removed 10. Dry needling technique used: Deep needling. Patient education on purpose, precautions, safety, risks, and other treatment options regarding dry needling. Verbal consent received. Billing Therapeutic Exercise Treatment Minutes: 15 Manual TherapyTreatment Minutes: 30 Total Session Time (minutes): 45 Session Start Time : 0920 Session Stop Time : 1005 GEORGE TUCKER PT, MALChrist[facility]11-30-2023 History of Present illness Narrative* George Tucker PT, DPT - 07/21/2023 9:23 AM EST Episode Visit Count: 12 Therapist That Will Accept/Oversee The Plan Of Care: Garrett Start of Care Date: 01/10/23 Onset Date: 01/11/16 Plan of Care Certification Date: 05/05/23 Next Certification Due Date: 08/21/23 Patient Identified by Name and Date of : Yes REHABILITATION AND SPORTS THERAPY PHYSICAL THERAPY TREATMENT NOTE ASSESSMENT: Chiara Croft tolerated the session with decreased symptoms. She demonstrated improvements in stiffness, pain post treatment. The patient will continue to benefit from ongoing skilled physical therapy to progress toward set goals and for reassessment by supervising therapist. PLAN FOR NEXT VISIT: reassessment and plan for discharge SUBJECTIVE: Pt reports she is more stiff this AM. Pain: Pain Pain Level: 4 Pain Location: Low Back/Lumbar Spine- Midline OBJECTIVE MEASURES WITH LEVEL OF FUNCTION: TREATMENT: Therapeutic Exercise: 2: cat cow 10x 3: cat cow 10x10 4: ryan pose 10x10 5: pt education in slow return to exercise, body mechanics with vacuum and housework, Skilled Intervention: Patient was educated in proper exercise technique and purpose for exercises. Skilled judgment was used in selection of appropriate interventions. Manual Therapy: 1: STM bilateral lumbar paraspinals and superior glutes 2: dry needle Skilled Intervention: Manual skills to improve joint mobility, ROM, and decrease pain. Utilized anatomy knowledge of the therapist, and assessment of patient's response to intervention. Dry needling to following Trigger points: lumbar paraspinals and superior glutes Needle length: 40mm 1.5 in and 60mm 2.5 in. Cordova used 10, needles removed 10. Dry needling technique used: Deep needling. Patient education on purpose, precautions, safety, risks, and other treatment options regarding dry needling. Verbal consent received. Billing Therapeutic Exercise Treatment Minutes: 15 Manual TherapyTreatment Minutes: 30 Total Session Time (minutes): 45 Session Start Time : 919 Session Stop Time : 100 GEORGE TUCKER PT, DPT documented in this encounterDiley [facility] Center11-21-2023 Instructions* Patient Instructions* Angie Aguirre APRN.CNP - 07/12/2023 10:28 AM EST Continue the same medication. Try weaning of the prevacid. Recheck in 6 months, sooner if needed. documented in this encounterDiley [facility] Center11-21-2023 History of Present illness Narrative* Angie Aguirre APRN.CNP - 07/12/2023 10:05 AM EST This is a 78 year old female who presents today with: Patient presents with: Recheck: Follow up- feeling better but still not completely resolved HISTORY OF PRESENT ILLNESS: Chiara Croft is a 78 year old female. Patient presents with: Recheck: Follow up- feeling better but still not completely resolved Pt presents today to follow-up on her recent hospitalization. Previous note: She presented to the emergency room on 06/16/2023 with increasing shortness of breath and generalized weakness that was significantly worse than her baseline. Chest x-ray was concerning for pneumonia and she also had an elevated white count. She was started on antibiotics and she also had significant improvement when she used nebulizers. She was started on steroids for concerns of exacerbation of her asthma. She did have an episode of chest tightness and they obtained an unremarkable EKG and troponin. She was offered SNF, but declined. She was able to get up and start moving around and ambulating with a walker. She does have a follow-up with her substation operator helper generation on June 30. She was discharged with Augmentin and prednisone taper. She followed up with her substation operator helper generation. Changed her inhaler to Breo. Dr. Rose cut dose and shortened taper of the prednisone. Has a rescue inhaler that she uses as needed. Overall, feels better, just not 100% yet. Feels like just taking time to improve. She has been on prevacid. Refers that she was previously started on this for cough. She is interested in decreasing/weaning this. PAST MEDICAL HISTORY: PAST MEDICAL HISTORY Diagnosis Date Abdominal pain Arthritis Asthma Degenerative disc disease Depression Disorder of bone and cartilage, unspecified History of transfusion HTN (hypertension) Hypothyroid Intrinsic asthma Mixed hyperlipidemia Hyperlipidemia Osteoarthrosis, unspecified whether generalized or localized, other specified sites PMH - PAST MEDICAL HISTORY OF CVA with weakness left side PMH - PAST MEDICAL HISTORY OF 2000 left cervical radiculopathy PMH - PAST MEDICAL HISTORY OF 2003 right rib fracture PMH - PAST MEDICAL HISTORY OF 2005 right shoulder impingement syndrome Spinal stenosis Stroke (HCC) 2005 Unspecified hypothyroidism PAST SURGICAL HISTORY Procedure Laterality Date APPENDECTOMY 1959 APPENDECTOMY HX BACK SURGERY HX 2016 L3-5 Decompression and Fusion CATARACT EXTRACTION HX Bilateral COLONOSCOPY N/A 09/15/2016 MAC EGD W/O [facility] SPEC VARICIES INJ 09/17/2016 EGD W/O [facility] SPEC VARICIES INJ 11/15/2022 EPIDURAL SITE SPECIFY lumbar spine EYE SURGERY HX PAST SURGICAL HISTORY OF 1976 thyroidectomy for toxic goiter SKIN BIOPSY HX TONSILLECTOMY HX TONSILLECTOMY PRIMARY/SECONDARY <AGE 12 Tonsillectomy ALLERGIES Cymbalta [Duloxetine], Fosamax [Alendronate Sodium], Septra [Sulfamethoxazole-Trimethoprim], Sulfamethoxazole, Tramadol, Trimethoprim, and Bupropion MEDICATIONS Current Outpatient Medications Medication Sig guaifenesin/dextromethorphan (MUCUS RELIEF DM MAX ORAL) Take 1 tablet by mouth two times a day. L. rhamnosus GG/inulin ([facility] ORAL) Take 1 tablet by mouth once daily. losartan (COZAAR) 50 mg tablet TAKE 1 & 1/2 (ONE & ONE-HALF) TABLETS BY MOUTH ONCE DAILY levothyroxine (LEVOXYL) 88 mcg tablet Take 1 tablet by mouth once daily. Take on empty stomach. ForThyroid zinc sulfate 220 mg (50 mg zinc) capsule famotidine (PEPCID) 40 mg tablet Take 1 tablet by mouth once daily as needed. fluticasone-salmeterol (ADVAIR, WIXELA) 250-50 mcg/dose inhaler rosuvastatin (CRESTOR) 5 mg tablet Take 1 tablet by mouth once daily. clopidogrel (PLAVIX) 75 mg tablet Take 1 tablet by mouth once daily. [facility] ID: [id number] [email or web address] albuterol HFA (VENTOLIN HFA) 90 mcg/actuation inhaler Inhale 2 Puffs as instructed every 4 hours asneeded for wheezing/shortness of breath. lidocaine (SALONPAS) 4 % patch Apply as directed once daily. denosumab (PROLIA) 60 mg/mL syrg Inject 60 mg subcutaneously one time only. Cholecalciferol, Vitamin D3, 25 mcg (1,000 unit) cap Vitamin D acetaminophen (TYLENOL) 500 mg tablet Take 500 mg by mouth every 8 hours as needed. amoxicillin-clavulanate potassium (AUGMENTIN) 875-125 mg per tablet Take 1 tablet by mouth two times a day. predniSONE (DELTASONE) 20 mg tablet Take 1 tablet by mouth once daily. Current Facility-Administered Medications Medication Dose Route Frequency denosumab 60 mg injection (PROLIA) 60 mg SUBCUTANEOUS Q 6 MONTH FAMILY HISTORY Problem Relation Age of Onset Cerebral Embolism Mother Osteoporosis Mother other (spinal stenosis) Mother other (depression) Mother other (cva) Mother other (depression) Father other (tramatic brain syndrome) Father s/p MVA other (aplastic thyroid tumor) Sister Depression Brother Stroke Maternal Grandfather Colon Cancer No Family History Social History Tobacco Use Smoking status: Former Packs/day: 0.50 Years: 8.00 Additional pack years: 0.00 Total pack years: 4.00 Types: Cigarettes Smokeless tobacco: Never Tobacco comments: quit in 1969 Vaping Use Vaping Use: Never used Substance Use Topics Alcohol use: Yes Comment: 1-2 times per week Drug use: No EXAM: BP 132/72 Pulse 74 Resp 16 SpO2 97% PHYSICAL EXAM: General Appearance: Well appearing, alert, in no acute distress, well-hydrated, well nourished. Skin: Skin color, texture, turgor normal, no suspicious rashes or lesions. Head: Normocephalic, no masses, lesions, tenderness or abnormalities. Eyes: Anicteric sclera. Extraocular movements are intact. . Lungs: Lungs clear to auscultation. No wheezing, rhonchi, rales.. Heart: RRR without murmur, gallop, or rubs. No ectopy. Extremities: No deformities, edema, skin discoloration, clubbing or cyanosis. Good capillary refill. Neurologic: Gait normal. ASSESSMENT/PLAN: 1. Bacterial pneumonia - ICD9: 482.9, ICD10: J15.9 (primary diagnosis) Clinically improving. Continue same medications. Follow-up with pulmonology, as planned. 2. Cough - ICD9: 786.2, ICD10: R05.9 Doesn't think GERD was the source of her cough. She actually questions if source is an allergy to her dog. Discussed weaning the prevacid (every other day X 1 -2 weeks, then every 3rd day for 1-2 weeks, then stop). Notify provider if symptoms worsen. - LANSOPRAZOLE 15 MG CAPSULE,DELAYED RELEASE Discussed treatment plan and patient voices understanding. Patient's questions answered appropriately. Medications and potential side effects were discussed and patient voices understanding. Return to the office as scheduled or as needed for worsening/no improvement. Angie Aguirre APRN.WEIGHT ANALYST documented in this encounterDiley Ridge Medical Center11-15-2023 NoteHNO ID: [id number] Author: George Tucker, PT, DPT Service: ? Author Type: Physical Therapist Type: Progress Notes Filed: 07/06/2023 1:37 PM Note Text: Episode Visit Count: 11 Therapist That Will Accept/Oversee The Plan Of Care: Garrett Start of Care Date: 01/10/23 Onset Date: 01/11/16 Plan of Care Certification Date: 05/05/23 Next Certification Due Date: 08/21/23 Patient Identified by Name and Date of : Yes REHABILITATION AND SPORTS THERAPY PHYSICAL THERAPY PROGRESS REPORT PLAN OF CARE UPDATE: Assessment: Chiara Croft demonstrates significant improvement in standing, walking, and physical activities . She has progressed toward goals. Patient continues to present with impairments in ADL's, independence in exercise, range of motion, strength, and symptom management that interfere with . Current prognosis is good Good due to: current objective clinical presentation . Will follow up in two weeks She will benefit from continued skilled therapy services to meet the updated goals for this plan of care as noted below. Goals for Episode of Care: created on 01/10/23 through 03/21/23 Independent in home exercises. ONGOING Patient will decrease pain to 2/10 with functional activities to allow patient to improve ambulation and standing tolerance for ADLs. ONGOING Restore pain-free lumbar ROM to minimal limitation in standing flexion to allow for ADLs MET Stand / Walk 30 minutes without pain/symptoms.MET Knowledgeable regarding prophylaxis. Patient will increase strength of bilateral hips to 5/5 to allow for improve ability to complete ADLs. ONGOING Patient Goals: aleeviate pain and get stronger Planned Interventions, Frequency, and Duration: 1x/week, 8 weeks Total Number of Visits Planned: 8 Patient to be seen for Therapeutic exercise (84841), Neuromuscular re-education (64029), Manual therapy (11549), Therapeutic activities (43843), Self-shelter management (55978), Gait Training (62307), Patient/Family/Caregiver Education, Body Mechanics Training, Functional training, General Conditioning, E-Stim Unattended (78370) SUBJECTIVE: . Pt had pneumonia and is now trying to regain her energy from being in the hospital but she is doing better. Pain: Pain Pain Level: 3 Pain Location: Low Back/Lumbar Spine - Right PROMIS Scales Higher is Better 07/05/2023 05/17/2023 05/16/2023 Phys Func - Score 44 (mild dysfunction) - 35 (moderate dysfunction) Phys Func - Percentile 27 % - 7 % Self-Eff Symptom - Score 48 (Average) 44 (Average) - Self-Eff Symptom - Percentile 42 % 27 % - T-scores: mean of general population = 50. 5 points is clinically meaningfully difference Percentiles provide an indication of how the patient's score ranks in relation to the general population. Higher percentile rankings indicate better function/quality of life. 50th percentile is the average of the general population and indicates half of respondents had a worse score. OBJECTIVE MEASURES WITH LEVEL OF FUNCTION: Lumbar Spine AROM Lumbar Flexion: Minimal limitation Lumbar Extension: Moderate limitation Lumbar R Side-Bend: Minimal limitation Lumbar L Side-Bend: Minimal limitation LE Strength R Hip ABduction: 4-/5 L Hip ABduction: 4/5 TREATMENT: Therapeutic Exercise: 1: reassessment 2: side hip abduction 10x2 each 3: bridge with t-band gr 10x3 4: prone chest lift 5x5x3 5: review of home program and discussion of integration into a community exercise program. Skilled Intervention: Patient was educated in proper exercise technique and purpose for exercises. Skilled judgment was used in selection of appropriate interventions. Billing Therapeutic Exercise Treatment Minutes: 35 Total Session Time (minutes): 37 Session Start Time : 1138 Session Stop Time : 1215 Access Code: [email or web address] URL: [email or web address] Date: 07/06/2023 Prepared by: George Tucker Exercises - Prone Press Up On Elbows - 1 x daily - 7 x weekly - 3 sets - 10 reps - 3 hold - Upper Back Extension Off Table - 1 x daily - 7 x weekly - 3 sets - 10 reps - Prone Hip Extension with Pillow Under Abdomen - 1 x daily - 7 x weekly - 3 sets - 10 reps - 3 sec hold - Cat Cow - 1 x daily - 7 x weekly - 1 sets - 10 reps - 10 sec hold - Seated Thoracic Lumbar Extension - 1 x daily - 7 x weekly - 1 sets - 10 reps - 10 sec hold - Supine Bridge - 1 x daily - 7 x weekly - 2 sets - 10 reps - 3 sec hold - Supine Bridge with Resistance Band - 1 x daily - 7 x weekly - 3 sets - 10 reps - Wall Squat with Chile[place] Ball - 1 x daily - 7 x weekly - 3 sets - 10 reps - Sit to Stand Without Arm Support - 1 x daily - 7 x weekly - 3 sets - 10 reps - Sidelying Hip Abduction - 1 x daily - 7 x weekly - 2 sets - 10 reps GEORGE TUCKER PT, [facility] History of Present illness Narrative* George Tucker PT, DPLing - 07/06/2023 12:04 PM EST Program_ID:[id number] Access Code: [email or web address] URL: [email or web address] Date: 07-06-2023 Prepared By: George Tucker Program Notes Exercises - Prone Press Up On Elbows - 1 x daily - 7 x weekly - 3 - 10 - Upper Back Extension Off Table - 1 x daily - 7 x weekly - 3 - 10 - Prone Hip Extension with Pillow Under Abdomen - 1 x daily - 7 x weekly - 3 - 10 - Cat Cow - 1 x daily - 7 x weekly - 1 - 10 - Seated Thoracic Lumbar Extension - 1 x daily - 7 x weekly - 1 - 10 - Supine Bridge - 1 x daily - 7 x weekly - 2 - 10 - Supine Bridge with Resistance Band - 1 x daily - 7 x weekly - 3 - 10 - Wall Squat with [place]an Ball - 1 x daily - 7 x weekly - 3 - 10 - Sit to Stand Without Arm Support - 1 x daily - 7 x weekly - 3 - 10 - Sidelying Hip Abduction - 1 x daily - 7 x weekly - 2 - 10 * George Tucker PT, DPT - 07/06/2023 12:00 PM EST Program_ID:[id number] Access Code: [email or web address] URL: [email or web address] Date: 07-06-2023 Prepared By: George Tucker Program Notes Exercises - Prone Press Up On Elbows - 1 x daily - 7 x weekly - 3 - 10 - Upper Back Extension Off Table - 1 x daily - 7 x weekly - 3 - 10 - Prone Hip Extension with Pillow Under Abdomen - 1 x daily - 7 x weekly - 3 - 10 - Cat Cow - 1 x daily - 7 x weekly - 1 - 10 - Seated Thoracic Lumbar Extension - 1 x daily - 7 x weekly - 1 - 10 - Supine Bridge - 1 x daily - 7 x weekly - 2 - 10 - Wall Squat with [place]an Ball - 1 x daily - 7 x weekly - 3 - 10 - Sit to Stand Without Arm Support - 1 x daily - 7 x weekly - 3 - 10 - Sidelying Hip Abduction - 1 x daily - 7 x weekly - 2 - 10 * George Tucker PT, DPT - 07/06/2023 11:41 AM EST Episode Visit Count: 11 Therapist That Will Accept/Oversee The Plan Of Care: Garrett Start of Care Date: 01/10/23 Onset Date: 01/11/16 Plan of Care Certification Date: 05/05/23 Next Certification Due Date: 08/21/23 Patient Identified by Name and Date of : Yes [facility] PHYSICAL THERAPY PROGRESS REPORT PLAN OF CARE UPDATE: Assessment: Chiara Croft demonstrates significant improvement in standing, walking, and physical activities . She has progressed toward goals. Patient continues to present with impairments in ADL's, independence in exercise, range of motion, strength, and symptom management that interfere with . Current prognosis is good Good due to: current objective clinical presentation . Will follow up in two weeks She will benefit from continued skilled therapy services to meet the updated goals for this plan of care as noted below. Goals for Episode of Care: created on 01/10/23 through 03/21/23 Independent in home exercises. ONGOING Patient will decrease pain to 2/10 with functional activities to allow patient to improve ambulation and standing tolerance for ADLs. ONGOING Restore pain-free lumbar ROM to minimal limitation in standing flexion to allow for ADLs MET Stand / Walk 30 minutes without pain/symptoms.MET Knowledgeable regarding prophylaxis. Patient will increase strength of bilateral hips to 5/5 to allow for improve ability to complete ADLs. ONGOING Patient Goals: aleeviate pain and get stronger Planned Interventions, Frequency, and Duration: 1x/week, 8 weeks Total Number of Visits Planned: 8 Patient to be seen for Therapeutic exercise (38534), Neuromuscular re-education (84824), Manual therapy (76284), Therapeutic activities (35602), Self-shelter management (67366), Gait Training (66210), Patient/Family/Caregiver Education, Body Mechanics Training, Functional training, General Conditioning, E-Stim Unattended (81566) SUBJECTIVE: . Pt had pneumonia and is now trying to regain her energy from being in the hospital but she is doing better. Pain: Pain Pain Level: 3 Pain Location: Low Back/Lumbar Spine - Right PROMIS Scales Higher is Better 07/05/2023 05/17/2023 05/16/2023 Phys Func - Score 44 (mild dysfunction) - 35 (moderate dysfunction) Phys Func - Percentile 27 % - 7 % Self-Eff Symptom - Score 48 (Average) 44 (Average) - Self-Eff Symptom - Percentile 42 % 27 % - T-scores: mean of general population = 50. 5 points is clinically meaningfully difference Percentiles provide an indication of how the patient's score ranks in relation to the general population. Higher percentile rankings indicate better function/quality of life. 50th percentile is the average of the general population and indicates half of respondents had a worse score. OBJECTIVE MEASURES WITH LEVEL OF FUNCTION: Lumbar Spine AROM Lumbar Flexion: Minimal limitation Lumbar Extension: Moderate limitation Lumbar R Side-Bend: Minimal limitation Lumbar L Side-Bend: Minimal limitation LE Strength R Hip ABduction: 4-/5 L Hip ABduction: 4/5 TREATMENT: Therapeutic Exercise: 1: reassessment 2: side hip abduction 10x2 each 3: bridge with t-band gr 10x3 4: prone chest lift 5x5x3 5: review of home program and discussion of integration into a community exercise program. Skilled Intervention: Patient was educated in proper exercise technique and purpose for exercises. Skilled judgment was used in selection of appropriate interventions. Billing Therapeutic Exercise Treatment Minutes: 35 Total Session Time (minutes): 37 Session Start Time : 1138 Session Stop Time : 1215 Access Code: [email or web address] URL: [email or web address] Date: 07/06/2023 Prepared by: George Tucker Exercises - Prone Press Up On Elbows - 1 x daily - 7 x weekly - 3 sets - 10 reps - 3 hold - Upper Back Extension Off Table - 1 x daily - 7 x weekly - 3 sets - 10 reps - Prone Hip Extension with Pillow Under Abdomen - 1 x daily - 7 x weekly - 3 sets - 10 reps - 3 sechold - Cat Cow - 1 x daily - 7 x weekly - 1 sets - 10 reps - 10 sec hold - Seated Thoracic Lumbar Extension - 1 x daily - 7 x weekly - 1 sets - 10 reps - 10 sec hold - Supine Bridge - 1 x daily - 7 x weekly - 2 sets - 10 reps - 3 sec hold - Supine Bridge with Resistance Band - 1 x daily - 7 x weekly - 3 sets - 10 reps - Wall Squat with Chilean Ball - 1 x daily - 7 x weekly - 3 sets - 10 reps - Sit to Stand Without Arm Support - 1 x daily - 7 x weekly - 3 sets - 10 reps - Sidelying Hip Abduction - 1 x daily - 7 x weekly - 2 sets - 10 reps GEORGE TUCKER PT, DPT [facility] Miscellaneous Notes* Telephone Encounter - Zheng Tse LPN - 06/20/2023 5:26 PM EDT Pt scheduled. Zheng Tse LPN documented in [facility]10-28-2023 Discharge summary Author Elana Bae [facility] June 18, 2023 9:48am Note Date/Time June 18, 2023 9 :48am [facility] Medical Records Department [address] [place] [address] Discharge Summary 06/18/23 0943 MR#: [id number] Acct: [id number] Name: CHIARA CROFT Rep #:[id number] : 1945 77 From: Elana Bae MD PCP: PHOENIX Suh Status:ADM I N [facility] Prov[facility] Date of Admission: 06/17/23 Date of Discharge: 06/18/23 Primary Care Physician: PHOENIX Suh Reason For Visit: GENERALIZED WEAKNESS WITH POSSIBLE PNA Diagnosis Discharge Diagnosis (1) General weakness: Status: Acute Code(s): R53.1 - Weakness (2) Leukocytosis: Status: Acute Code(s): D72.829 - Elevated white blood cell count, unspecified (3) Debility: Status: Acute Code(s): R53.81 - Other malaise (4) Abnormal chest x-ray: Status: Acute Code(s): R93.89 - Abnormal findings on diagnostic imaging of other specified body structures Plan #Generalized weakness and increased shortness of breath secondary to community-acquired pneumonia with component of exacerbation of her chronic asthma #Mild anemia #Chronic pain due to osteoarthritis #Osteoporosis #History of stroke #GERD #Hypothyroidism #Hypertension Medications at Discharge Home Medications calcium citrate 200 mg calcium-vitamin D3 6.25 mcg (250 unit) tablet ([place] Calcium-Vitamin D3) 1 tab PO DAILY 08/18/17 fluticasone propionate 50 mcg/actuation nasal spray,suspension (Flonase Allergy Relief) 1 spray intranasal BID PRN allergies 09/19/17 cholecalciferol (vitamin D3) 25 mcg (1,000 unit) capsule 1,000 unit PO ONCE supplement 05/05/18 albuterol sulfate 90 mcg/actuation aerosol inhaler 2 puff inhalation Q4H PRN shortness of breath or wheezing #1 device 07/07/20 denosumab 60 mg/mL subcutaneous syringe (Prolia) 60 mg subcut [id number] cholesterol #1 mL 08/19/20 lidocaine 4 % topical patch (Aspercreme (lidocaine)) 1 patch topical DAILY PRN pain 06/02/21 biotin 2,500 mcg capsule 2,500 mcg PO DAILY supplement 11/30/21 hydrocodone-acetaminophen 5-325mg 5mg-325mg 1 tab PO QHS PRN pain 11/30/21 loratadine 10 mg tablet (Claritin) 10 mg PO DAILY PRN seasonal allergies 11/30/21 omega 3-akk-cme-fish oil 60 mg-90 mg-500 mg capsule (Fish Oil) 1 cap PO DAILY 11/30/21 fluticasone 250 mcg-salmeterol 50 mcg/dose blistr powdr for inhalation (Advair Diskus) 1 inh inhalation BID asthma #60 ea 11/11/22 Lactobacillus rhamnosus GG 10 billion cell capsule (Culturelle) 1 cap PO BID 06/16/23 clopidogrel 75 mg tablet (Plavix) 75 mg PO QPM blood thinner 06/16/23 lansoprazole 15 mg capsule,delayed release 15 mg PO QPM acid reflux 06/16/23 levothyroxine 88 mcg tablet 88 mcg PO DAILY thyroid 06/16/23 losartan 50 mg tablet 75 mg PO QPM blood pressure 06/16/23 rosuvastatin 5 mg tablet 5 mg PO QPM cholesterol 06/16/23 amoxicillin 875 mg-potassium clavulanate 125 mg tablet 1 tab PO BID 5 days #10 tabs 06/18/23 guaifenesin 1,200 mg tablet, extended release 12 hr (Mucus Relief ER) 1,200 mg PO BID #14 tabs 06/18/23 prednisone 20 mg tablet See Taper PO BREAKFAST #32 tabs 06/18/23 Hospital Course Summary of Care Provided Minutes Spent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 administer with spacer Prolia 60 mg/mL syringe 60 mg SC [id number] Qty: 1 2RF rosuvastatin 5 mg tablet 5 mg PO DAILY Qty: 90 3RF losartan 50 mg tablet 75 mg PO DAILY 90 Days Qty: 135 2RF clopidogrel [Plavix] 75 mg tablet 75 mg PO DAILY Qty: 90 3RF fluticasone propion-salmeterol [Advair Diskus] 250-50 mcg/dose blister with device 1 inh inhalation BID Qty: 60 11RF Rx Instructions: [email or web address] azelastine 137 mcg (0.1 %) aerosol,spray 1 spray INTRANASAL BID Qty: 30 11RF Rx Instructions: [email or web address] Primary Care Provider: Angie Aguirre NP Referrals: Angie Aguirre NP, HOUSE SUPERINTENDENT-C [Primary Care Provider] - Disposition Disposition: Acute Care Hospital [facility] What to do if you have Problems For any increased pain, shortness of breath, bleeding, nausea or vomiting, chestpain, or any unexpected problems, contact your Primary Care Provider. Call [facility] ([phone]) or report to the closest Emergency Room. Call 911 if necessary. 06/16/231711 <Electronically signed by Bill Coombs DO> Cosigner Signature (if applicable): CC: HOUSE SUPERINTENDENT-Justin Aguirre ~ Signed [facility] Work Phone: [phone] 733-666410-20-2023 Miscellaneous Notes* Telephone Encounter - Samina Govea RN - 06/10/2023 4:28 PM EDT Patient contacted via XYZE to schedule injection. Patient has scheduled for: August 04, 2023 Patient instructed to hold the following medication(s) prior to the procedure: Plavix Pre-procedure instructions reviewed over telephone and a list of instructions were sent via [employer] a separate encounter. Surgical request placed. * Telephone Encounter - Quita Barth APRN.CNP - 06/06/2023 11:29 AM EDT Order placed for bilateral L2-3 lumbar transforaminal injection Please contact patient to schedule * Telephone Encounter - Neo Rowley RN - 06/06/2023 9:20 AM EDT NORMA 04/20/2023 W/ Dr. Gibson: PLAN: Prior available imaging studies were reviewed. Findings were discussed. Injection history was reviewed. Medication use and compliance were reviewed. 1. Discussed multicomponent pain source. She does have acute flareup of pain symptoms and will provide short course of pain medications. She has responded to the facet RFA procedure but it was discussed that she does have other components including foraminal narrowing above the fusion at L2-L3 level and significant muscle wasting in the lumbosacral region. 2. Interventional procedure options discussed. None at this time however, we did discuss bilateral L2-3 lumbar transforaminal injection if she is having persistent radicular pain symptoms. 3. Requested Prescriptions Signed Prescriptions Disp Refills HYDROcodone-acetaminophen (NORCO) 5-325 mg per tablet 20 tablet 0 Sig: Take 1 tablet by mouth every 6 hours as needed for pain for up to 5 days. 4. Encouraged regular home exercise program. 5) F/U in 2 months The treatment plan was discussed with the patient during the office visit and they verbalized an understanding of it. I have discussed and confirmed the above treatment plan with the patient and I have reviewed the nurses notes and I am aware of the family/social history. I have confirmed ROS findings. Routing to provider for review and recommendations. [facility] Miscellaneous Notes* Telephone Encounter - Sonya Hong OCCA - 06/10/2023 1:05 PM EDT TC to patient who verbalized understanding of providers message. Patient will return to lab in 2-3 weeks to have sodium rechecked. Nothing further at this time. GUERO Madrigal * Telephone Encounter - Angie Aguirre APRN.CNP - 06/10/2023 12:48 PM EDT Noted. I put an order in for her to just recheck sodium in a couple of weeks to ensure it is stable. Can also please let patient know that I received her chest xray which did not show any concerning findings. Angie Aguirre APRN.CNP * Telephone Encounter - Daja Malik RN - 06/08/2023 3:40 PM EDT Patient returned call and given provider's message below. Pt reports her sodium level does fluctuate at times. Pt was seen by Angie Aguirre CNP recently on 06/06. Informed patient that message would be shared with Angie and she would be advised further. Daja Malik RN * Telephone Encounter - Camille Bains MA - 06/08/2023 12:35 PM EDT Left message for pt to call back. Camille Bains MA * Telephone Encounter - Vivienne Viera APRN.CNP - 06/08/2023 10:42 AM EDT These call patient and let her know that her sodium level is slightly low and she needs to follow-up with primary care about this. Please let patient know that her white blood cells which indicates infection was only slightly elevated. No significant concerns at this time. Just have her follow-up with primary care about low sodium. documented in this encounterD[facility]10-18-[facility] History of Present illness Narrative* Vivienne Viera APRN.SAURABH - 06/08/2023 7:53 AM EDT CC: Patient presents with: Urinary Problem HPI Chiara Croft is a 77 year old female who presents with complaint of possible UTI. These symptomshave been present for days. Associated symptoms: burning and pressure Denies: fever, chills, sweats, abdominal pain, and flank pain Treatments: nothing The ROS was otherwise negative. PMH, Medications, labs, allergies, and recent past visits with PCP were reviewed and updated as able. PHYSICAL EXAM: There were no vitals taken for this visit. General: Well appearing and alert CV: Regular rate and rhythm without obvious murmur Lungs: clear to auscultation bilaterally Back: straight and symmetric Abdomen: tenderness on lower middle abdomen. PAST MEDICAL HISTORY Diagnosis Date Abdominal pain Arthritis Asthma Degenerative disc disease Depression Disorder of bone and cartilage, unspecified History of transfusion HTN (hypertension) Hypothyroid Intrinsic asthma Mixed hyperlipidemia Hyperlipidemia Osteoarthrosis, unspecified whether generalized or localized, other specified sites PMH - PAST MEDICAL HISTORY OF CVA with weakness left side PMH - PAST MEDICAL HISTORY OF 2000 left cervical radiculopathy PMH - PAST MEDICAL HISTORY OF 2003 right rib fracture PMH - PAST MEDICAL HISTORY OF 2005 right shoulder impingement syndrome Spinal stenosis Stroke (HCC) 2005 Unspecified hypothyroidism PAST SURGICAL HISTORY Procedure Laterality Date APPENDECTOMY 1960 APPENDECTOMY HX BACK SURGERY HX 2016 L3-5 Decompression and Fusion CATARACT EXTRACTION HX Bilateral COLONOSCOPY N/A 09/15/2016 MAC EGD W/O [facility] SPEC VARICIES INJ 09/17/2016 EGD W/O [facility] SPEC VARICIES INJ 11/15/2022 EPIDURAL SITE SPECIFY lumbar spine EYE SURGERY HX PAST SURGICAL HISTORY OF 1976 thyroidectomy for toxic goiter SKIN BIOPSY HX TONSILLECTOMY HX TONSILLECTOMY PRIMARY/SECONDARY <AGE 12 Tonsillectomy ALLERGIES Cymbalta [Duloxetine], Fosamax [Alendronate Sodium], Septra [Sulfamethoxazole-Trimethoprim], Sulfamethoxazole, Tramadol, Trimethoprim, and Bupropion MEDICATIONS methocarbamol (ROBAXIN) 500 mg tablet^Take 1 tablet by mouth two times a day as needed.^Disp: 60 tablet^Rfl: 0 losartan (COZAAR) 50 mg tablet^TAKE 1 & 1/2 (ONE & ONE-HALF) TABLETS BY MOUTH ONCE DAILY^Disp: 145 tablet^Rfl: 1 levothyroxine (LEVOXYL) 88 mcg tablet^Take 1 tablet by mouth once daily. Take on empty stomach. ForThyroid^Disp: 90 tablet^Rfl: 3 zinc sulfate 220 mg (50 mg zinc) capsule^^Disp: ^Rfl: famotidine (PEPCID) 40 mg tablet^Take 1 tablet by mouth once daily as needed.^Disp: 60 tablet^Rfl: 2 fluticasone-salmeterol (ADVAIR, WIXELA) 250-50 mcg/dose inhaler^^Disp: ^Rfl: rosuvastatin (CRESTOR) 5 mg tablet^Take 1 tablet by mouth once daily.^Disp: 90 tablet^Rfl: 1 clopidogrel (PLAVIX) 75 mg tablet^Take 1 tablet by mouth once daily. [facility] ID: [id number] [email or web address]^Disp: 90 tablet^Rfl: 3 albuterol HFA (VENTOLIN HFA) 90 mcg/actuation inhaler^Inhale 2 Puffs as instructed every 4 hours asneeded for wheezing/shortness of breath.^Disp: 1 Inhaler^Rfl: 5 lidocaine (SALONPAS) 4 % patch^Apply as directed once daily.^Disp: ^Rfl: denosumab (PROLIA) 60 mg/mL syrg^Inject 60 mg subcutaneously one time only.^Disp: ^Rfl: Cholecalciferol, Vitamin D3, 25 mcg (1,000 unit) cap^Vitamin D^Disp: ^Rfl: acetaminophen (TYLENOL) 500 mg tablet^Take 500 mg by mouth every 8 hours as needed.^Disp: ^Rfl: FAMILY HISTORY Problem Relation Age of Onset Cerebral Embolism Mother Osteoporosis Mother other (spinal stenosis) Mother other (depression) Mother other (cva) Mother other (depression) Father other (tramatic brain syndrome) Father s/p MVA other (aplastic thyroid tumor) Sister Depression Brother Stroke Maternal Grandfather Colon Cancer No Family History Social History Tobacco Use Smoking status: Former Packs/day: 0.50 Years: 8.00 Additional pack years: 0.00 Total pack years: 4.00 Types: Cigarettes Smokeless tobacco: Never Tobacco comments: quit in 1969 Vaping Use Vaping Use: Never used Substance Use Topics Alcohol use: Yes Comment: 1-2 times per week Drug use: No ASSESSMENT/PLAN: 1. Urinary frequency - ICD9: 788.41, ICD10: R35.0 (primary diagnosis) - UA DIP, URINE (POC) - URINE CULTURE 2. Recurrent UTI (urinary tract infection) - ICD9: 599.0, ICD10: N39.0 - CBC + DIFF - COMP METABOLIC PANEL - NITROFURANTOIN MONOHYDRATE & MACROCRYSTAL 100 MG ORAL CAP If blood work is significant concerning please send to the ER Prescription instructions reviewed with patient as applicable. Potential red flag symptoms discussed with the patient. Reviewed appropriate action plan to take if red flag symptoms occur. Patient agreeable to treatment plan. Vivienne Viera APRN.WEIGHT ANALYST documented in this encounterDiley [facility]10-17-2023 History of Present illness Narrative* Mariel Solis RT(R) - 06/07/2023 12:30 PM EDT Radiology Service Progress Note PATIENT NAME: Chiara Croft DATE OF SERVICE: June 07, 2023 TIME: 12:43 PM PATIENT IDENTITY VERIFICATION COMPLETED USING TWO (2) IDENTIFIERS: Name and Date of confirmedby patient verbally. FALL SCREENING: Has the patient had 2 falls in the last year or 1 fall with injury or currently using an Ambulatory Assistive Device (Walker, Cane, Wheelchair, Crutches, etc.)? No PATIENT GENDER DATA: Female. status: : No status: NO. PATIENT RELEVANT IMPLANT DATA REVIEWED: Yes RADIOLOGY DEPARTMENT: General X-ray: Exam(s) Completed: Chest X-Ray PERIPHERAL IV DATA: Not applicable SIGNED BY: RT Bud(Siva) June 07, 2023 12:43 PM documented in this encounterDiley [facility] Center10-16-2023 NoteHNO ID: [id number] Author: George Tucker, PT, DPT Service: ? Author Type: Physical Therapist Type: Progress Notes Filed: 06/06/2023 2:02 PM Note Text: Episode Visit Count: 10 Therapist That Will Accept/Oversee The Plan Of Care: Garrett Start of Care Date: 01/10/23 Onset Date: 01/11/16 Plan of Care Certification Date: 05/05/23 Next Certification Due Date: 08/01/23 Patient Identified by Name and Date of : Yes REHABILITATION AND SPORTS THERAPY PHYSICAL THERAPY PROGRESS REPORT PLAN OF CARE UPDATE: Assessment: Chiara Croft demonstrates moderate improvement in standing, walking, and physical activities. She has progressed toward goals. Patient continues to present with impairments in ADL's, overall function, strength, and symptom management that interfere with . Current prognosis is Good due to: current objective clinical presentation . Pt would benefit from skilled therapy to progress activity tolerance, leg strength, core stabilization. She will benefit from continued skilled therapy services to meet the updated goals for this plan of care as noted below. Goals for Episode of Care: created on 01/10/23 through 03/21/23 Independent in home exercises. ONGOING Patient will decrease pain to 2/10 with functional activities to allow patient to improve ambulation and standing tolerance for ADLs. ONGOING Restore pain-free lumbar ROM to minimal limitation in standing flexion to allow for ADLs ONGOING Stand / Walk 30 minutes without pain/symptoms. ONGOING Knowledgeable regarding prophylaxis. Patient will increase strength of bilateral hips to 5/5 to allow for improve ability to complete ADLs. ONGOING Patient Goals: aleeviate pain and get stronger Planned Interventions, Frequency, and Duration: 1x/week, 8 weeks Total Number of Visits Planned: 8 Patient to be seen for Therapeutic exercise (64118), Neuromuscular re-education (77684), Manual therapy (61177), Therapeutic activities (39779), Self-shelter management (18243), Gait Training (48565), Patient/Family/Caregiver Education, Body Mechanics Training, Functional training, General Conditioning, E-Stim Unattended (65476) PLAN FOR NEXT VISIT: progress extension in upper back SUBJECTIVE: . Pt reports that she is a little more stiff and painful this weekend a feels that it's from the weather changes. Pt reports her walking has improved but she has been able to typically get back to her previous level of function. Pain: PROMIS Scales Higher is Better 05/17/2023 05/16/2023 04/18/2023 Phys Func - Score - 35 (moderate dysfunction) 33 (moderate dysfunction) Phys Func - Percentile - 7 % 4 % Self-Eff Symptom - Score 44 (Average) - 38 (Low) Self-Eff Symptom - Percentile 27 % - 12 % T-scores: mean of general population = 50. 5 points is clinically meaningfully difference Percentiles provide an indication of how the patient's score ranks in relation to the general population. Higher percentile rankings indicate better function/quality of life. 50th percentile is the average of the general population and indicates half of respondents had a worse score. OBJECTIVE MEASURES WITH LEVEL OF FUNCTION: Lumbar Spine AROM Lumbar Flexion: Minimal limitation Lumbar Extension: Moderate limitation Lumbar R Side-Bend: Moderate limitation Lumbar L Side-Bend: Moderate limitation LE Strength R Hip Flexion (L2): 5/5 R Knee Extension (L3): 5/5 R Knee Flexion: 5/5 R Ankle Dorsiflexion (L4): 5/5 L Hip Flexion (L2): 5/5 L Knee Extension (L3): 5/5 L Knee Flexion: 5/5 TREATMENT: Therapeutic Exercise: 1: reassessment 2: prone chest lift review 3: home program review: work on increasing to 3 sets of 10 as able Skilled Intervention: Patient was educated in proper exercise technique and purpose for exercises. Skilled judgment was used in selection of appropriate interventions. Manual Therapy: 1: dry needle Skilled Intervention: Manual skills to improve joint mobility, ROM, and decrease pain. Utilized anatomy knowledge of the therapist, and assessment of patient's response to intervention. Dry needling to following Trigger points: bilateral lumbar/thoracic paraspinals, superior gluteals, piriformis right side Needle length: 40mm 1.5 in and 60mm 2.5 in. [place] used 12, needles removed 12. Dry needling technique used: Deep needling. Patient education on purpose, precautions, safety, risks, and other treatment options regarding dry needling. Verbal consent received. Billing Therapeutic Exercise Treatment Minutes: 25 Manual TherapyTreatment Minutes: 15 Total Session Time (minutes): 45 Session Start Time : 1315 Session Stop Time : 1400 GEORGE TUCKER PT, [facility]10-16-2023 History of Present illness Narrative* George Tucker PT, DPT - 06/06/2023 1:17 PM EDT Episode Visit Count: 10 Therapist That Will Accept/Oversee The Plan Of Care: Garrett Start of Care Date: 01/10/23 Onset Date: 01/11/16 Plan of Care Certification Date: 05/05/23 Next Certification Due Date: 08/01/23 Patient Identified by Name and Date of : Yes REHABILITATION AND SPORTS THERAPY PHYSICAL THERAPY PROGRESS REPORT PLAN OF CARE UPDATE: Assessment: Chiara Croft demonstrates moderate improvement in standing, walking, and physical activities. She has progressed toward goals. Patient continues to present with impairments in ADL's, overall function, strength, and symptom management that interfere with . Current prognosis is Good due to: current objective clinical presentation . Pt would benefit from skilled therapy to progress activity tolerance, leg strength, core stabilization. She will benefit from continued skilled therapy services to meet the updated goals for this plan of care as noted below. Goals for Episode of Care: created on 01/10/23 through 03/21/23 Independent in home exercises. ONGOING Patient will decrease pain to 2/10 with functional activities to allow patient to improve ambulation and standing tolerance for ADLs. ONGOING Restore pain-free lumbar ROM to minimal limitation in standing flexion to allow for ADLs ONGOING Stand / Walk 30 minutes without pain/symptoms. ONGOING Knowledgeable regarding prophylaxis. Patient will increase strength of bilateral hips to 5/5 to allow for improve ability to complete ADLs. ONGOING Patient Goals: aleeviate pain and get stronger Planned Interventions, Frequency, and Duration: 1x/week, 8 weeks Total Number of Visits Planned: 8 Patient to be seen for Therapeutic exercise (69339), Neuromuscular re-education (60372), Manual therapy (71956), Therapeutic activities (11845), Self-shelter management (91617), Gait Training (85656), Patient/Family/Caregiver Education, Body Mechanics Training, Functional training, General Conditioning, E-Stim Unattended (02007) PLAN FOR NEXT VISIT: progress extension in upper back SUBJECTIVE: . Pt reports that she is a little more stiff and painful this weekend a feels that it'sfrom the weather changes. Pt reports her walking has improved but she has been able to typically get back to her previous level of function. Pain: PROMIS Scales Higher is Better 05/17/2023 05/16/2023 04/18/2023 Phys Func - Score - 35 (moderate dysfunction) 33 (moderate dysfunction) Phys Func - Percentile - 7 % 4 % Self-Eff Symptom - Score 44 (Average) - 38 (Low) Self-Eff Symptom - Percentile 27 % - 12 % T-scores: mean of general population = 50. 5 points is clinically meaningfully difference Percentiles provide an indication of how the patient's score ranks in relation to the general population. Higher percentile rankings indicate better function/quality of life. 50th percentile is the average of the general population and indicates half of respondents had a worse score. OBJECTIVE MEASURES WITH LEVEL OF FUNCTION: Lumbar Spine AROM Lumbar Flexion: Minimal limitation Lumbar Extension: Moderate limitation Lumbar R Side-Bend: Moderate limitation Lumbar L Side-Bend: Moderate limitation LE Strength R Hip Flexion (L2): 5/5 R Knee Extension (L3): 5/5 R Knee Flexion: 5/5 R Ankle Dorsiflexion (L4): 5/5 L Hip Flexion (L2): 5/5 L Knee Extension (L3): 5/5 L Knee Flexion: 5/5 TREATMENT: Therapeutic Exercise: 1: reassessment 2: prone chest lift review 3: home program review: work on increasing to 3 sets of 10 as able Skilled Intervention: Patient was educated in proper exercise technique and purpose for exercises. Skilled judgment was used in selection of appropriate interventions. Manual Therapy: 1: dry needle Skilled Intervention: Manual skills to improve joint mobility, ROM, and decrease pain. Utilized anatomy knowledge of the therapist, and assessment of patient's response to intervention. Dry needling to following Trigger points: bilateral lumbar/thoracic paraspinals, superior gluteals,piriformis right side Needle length: 40mm 1.5 in and 60mm 2.5 in. Cordova used 12, needles removed 12. Dry needling technique used: Deep needling. Patient education on purpose, precautions, safety, risks, and other treatment options regarding dry needling. Verbal consent received. Billing Therapeutic Exercise Treatment Minutes: 25 Manual TherapyTreatment Minutes: 15 Total Session Time (minutes): 45 Session Start Time : 1315 Session Stop Time : 1400 GEORGE TUCKER PT, DPT documented in this encounterDiley [facility] Center10-16-2023 Instructions* Patient Instructions* Angie Aguirre APRN.CNP - 06/06/2023 10:32 AM EDT Get the labwork. Get the chest xray. Schedule echo. Schedule stress testing. If you develop any worsening symptoms, or new symptoms with the discomfort (SOB, palpitations, etc)-- go to the ER. documented in this encounterDiley Ridge [facility] Center10-16-2023 History of Present illness Narrative* Angie Aguirre APRN.CNP - 06/06/2023 9:34 AM EDT This is a 77 year old female who presents today with: Patient presents with: Acute Visit: Increased swelling in lower legs/ankles; discomfort in chest, started back on anti-reflux, never had this feeling before with reflux HISTORY OF PRESENT ILLNESS: Chiara Croft is a 77 year old female. Patient presents with: Acute Visit: Increased swelling in lower legs/ankles; discomfort in chest, started back on anti-reflux, never had this feeling before with reflux Chest Discomfort: Patient has some chest discomfort. It has been going on for several weeks. States she has silent reflux and taking prevacid. Pain is in upper left side of chest. She states it doesn't feel like reflux. Denies SOB. WOLF when climbing stairs. Characterizes the feeling as a tightness rather than pain. Denies radiation, but has gone to the chiropractor and neck and shoulder are sore. She has issues with neck and arthritis. Patient suggests that pain has been continuous, but is more noticeable when sitting down or in the evenings. Nothing makes it better or worse. She rates her discomfort at a 2-3/10 enough to get my attention. No orthopnea. Patient is going to physical therapy for back since February and is moving more than normal with their exercises. Denies history of heart disease in family. Saw Dr. Quintin Hua` ~10 years ago with cardiac workupfor WOLF/SOB, including heat cath. Per patient, no interventions were done and no cardiac concerns. Ankle swelling: Increased ankle swelling in the evenings. Swelling has been happening since last winter. Patient endorses that swelling is pitting and resolves over night. No swelling on exam this morning. Pre PAST MEDICAL HISTORY: PAST MEDICAL HISTORY Diagnosis Date Abdominal pain Arthritis Asthma Degenerative disc disease Depression Disorder of bone and cartilage, unspecified History of transfusion HTN (hypertension) Hypothyroid Intrinsic asthma Mixed hyperlipidemia Hyperlipidemia Osteoarthrosis, unspecified whether generalized or localized, other specified sites PMH - PAST MEDICAL HISTORY OF CVA with weakness left side PMH - PAST MEDICAL HISTORY OF 2000 left cervical radiculopathy PMH - PAST MEDICAL HISTORY OF 2003 right rib fracture PMH - PAST MEDICAL HISTORY OF 2005 right shoulder impingement syndrome Spinal stenosis Stroke (HCC) 2006 Unspecified hypothyroidism PAST SURGICAL HISTORY Procedure Laterality Date APPENDECTOMY 1960 APPENDECTOMY HX BACK SURGERY HX 2017 L3-5 Decompression and Fusion CATARACT EXTRACTION HX Bilateral COLONOSCOPY N/A 09/15/2016 MAC EGD W/O [facility] SPEC VARICIES INJ 09/17/2016 EGD W/O [facility] SPEC VARICIES INJ 11/15/2022 EPIDURAL SITE SPECIFY lumbar spine EYE SURGERY HX PAST SURGICAL HISTORY OF 1976 thyroidectomy for toxic goiter SKIN BIOPSY HX TONSILLECTOMY HX TONSILLECTOMY PRIMARY/SECONDARY <AGE 12 Tonsillectomy ALLERGIES Cymbalta [Duloxetine], Fosamax [Alendronate Sodium], Septra [Sulfamethoxazole-Trimethoprim], Sulfamethoxazole, Tramadol, Trimethoprim, and Bupropion MEDICATIONS Current Outpatient Medications Medication Sig acetaminophen (TYLENOL) 500 mg tablet Take 500 mg by mouth every 8 hours as needed. albuterol HFA (VENTOLIN HFA) 90 mcg/actuation inhaler Inhale 2 Puffs as instructed every 4 hours asneeded for wheezing/shortness of breath. CALCIUM CARBONATE (CALCIUM 500 ORAL) Take by mouth. Cholecalciferol, Vitamin D3, 25 mcg (1,000 unit) cap Vitamin D clopidogrel (PLAVIX) 75 mg tablet Take 1 tablet by mouth once daily. [facility] ID: [id number] [email or web address] denosumab (PROLIA) 60 mg/mL syrg Inject 60 mg subcutaneously one time only. famotidine (PEPCID) 40 mg tablet Take 1 tablet by mouth once daily as needed. fluticasone-salmeterol (ADVAIR, WIXELA) 250-50 mcg/dose inhaler lansoprazole (PREVACID) 15 mg capsule Take 1 capsule by mouth once daily. levothyroxine (LEVOXYL) 88 mcg tablet Take 1 tablet by mouth once daily. Take on empty stomach. ForThyroid lidocaine (SALONPAS) 4 % patch Apply as directed once daily. losartan (COZAAR) 50 mg tablet TAKE 1 & 1/2 (ONE & ONE-HALF) TABLETS BY MOUTH ONCE DAILY methocarbamol (ROBAXIN) 500 mg tablet Take 1 tablet by mouth two times a day as needed. rosuvastatin (CRESTOR) 5 mg tablet Take 1 tablet by mouth once daily. zinc sulfate 220 mg (50 mg zinc) capsule Current Facility-Administered Medications Medication Dose Route Frequency denosumab 60 mg injection (PROLIA) 60 mg SUBCUTANEOUS Q 6 MONTH FAMILY HISTORY Problem Relation Age of Onset Cerebral Embolism Mother Osteoporosis Mother other (spinal stenosis) Mother other (depression) Mother other (cva) Mother other (depression) Father other (tramatic brain syndrome) Father s/p MVA other (aplastic thyroid tumor) Sister Depression Brother Stroke Maternal Grandfather Colon Cancer No Family History Social History Tobacco Use Smoking status: Former Packs/day: 0.50 Years: 8.00 Additional pack years: 0.00 Total pack years: 4.00 Types: Cigarettes Smokeless tobacco: Never Tobacco comments: quit in 1969 Vaping Use Vaping Use: Never used Substance Use Topics Alcohol use: Yes Comment: 1-2 times per week Drug use: No REVIEW OF SYSTEMS PAIN ASSESSMENT: Chronic pain in back and neck. Current chest discomfort. See HPI GENERAL: No weight loss, malaise or fevers HEENT: Negative for frequent or significant headaches, No changes in hearing or vision, no nose bleeds or other nasal problems. Last eye exam last week NECK: Negative for lumps, goiter, pain and significant neck swelling RESPIRATORY: Positive for dyspnea or shortness of breath and cough CARDIOVASCULAR: Decreasing exercise tolerence, Cough, Shortness of breath, Chest pain, See HPI, ankle swelling in the evenings GI: No nausea, vomiting, or diarrhea : No history of dysuria, frequency or incontinence MUSCULOSKELETAL: Ankle and lower leg swelling All other reviewed and negative other than HPI. EXAM: BP 122/72 Pulse 89 Resp 16 Wt 66.2 kg (146 lb) SpO2 98% BMI 25.86 kg/m PHYSICAL EXAM: General Appearance: Well appearing, alert, in no acute distress, well-hydrated, well nourished.. Skin: Skin color, texture, no suspicious rashes or lesions. Head: Normocephalic, no masses, lesions Eyes: Anicteric sclera. Pupils are equally round and reactive to light. Extraocular movements are intact. Neck: Supple, no adenopathy; thyroid symmetric, normal size Lungs: Lungs clear to auscultation. No wheezing, rhonchi, rales.. Heart: RRR without murmur, gallop, or rubs. No ectopy. Positive JVD Abdomen: Normal abdominal exam, Abdomen soft, non-tender. Bowel sounds normal. No masses, organomegaly. Extremities: No deformities, edema, skin discoloration, clubbing or cyanosis. Good capillary refill. . ASSESSMENT/PLAN: 1. Chest discomfort - ICD9: 786.59, ICD10: R07.89 (primary diagnosis) Chest pain of unclear etiology, patient with significant risk factor(s) of hypertension and previous smoker. Patient having continuous chest pressure (with possible radiation to left arm and neck), bilateral leg/ankle swelling and WOLF. JVD positive. Obtain labs, EKG, ECHO and stress test. Patient informed to go to the ED if breaking out in cold sweats, increased chest pain, SOB, rapid heart rate or feeling faint. - Electrocardiogram: NSR - Lab evaluation CMP, CBC, and BNP - Chest X-ray today. - Stress testing- see orders - ECG COMPLETE - NT PRO BNP - COMP METABOLIC PANEL - ECHO - PERFLUTREN LIPID MICROSPHERES 1.1 MG/ML INJECTION IN NS 10 ML - SODIUM CHLORIDE 0.9 % (FLUSH) INJECTION SYRINGE - NM CARDIAC PERF STRESS/PHARM - REGADENOSON 0.4 MG/5 ML INTRAVENOUS SYRINGE - AMINOPHYLLINE 250 MG/10 ML INTRAVENOUS SOLUTION - METOPROLOL TARTRATE 5 MG/5 ML INTRAVENOUS SOLUTION - XR CHEST 2V FRONTAL/LAT - CBC + DIFF 2. Ankle swelling, unspecified laterality - ICD9: 719.07, ICD10: M25.473 Patient currently does not have any swelling, she says that her swelling happens later in the day/night and resolves by morning. Obtain BNP to r/o heart failure - NT PRO BNP 3. Shortness of breath - ICD9: 786.05, ICD10: R06.02 See #1 - NT PRO BNP Discussed treatment plan and patient voices understanding. Patient's questions answered appropriately. Medications and potential side effects were discussed and patient voices understanding. Return to the office as scheduled or as needed for worsening/no improvement. Angie Aguirre APRN.SAURABH documented in this encounterDiley [facility] Medical Center10-10-2023 Miscellaneous Notes* Telephone Encounter - Samina Govea RN - 05/31/2023 2:38 PM EDT Initiated prior authorization via [facility] for Methocarbamol prescription. Denise: [id number] Awaiting authorization at this time. documented in this encounterDiley Ridge Medical Center10-09-2023 Miscellaneous Notes* Telephone Encounter - Quita Barth APRN.CNP - 05/30/2023 12:30 PM EDT The following approved medication requests have been transmitted electronically. Requested Prescriptions Signed Prescriptions Disp Refills methocarbamol (ROBAXIN) 500 mg tablet 60 tablet 0 Sig: Take 1 tablet by mouth two times a day as needed. Quita Barth APRN.WEIGHT ANALYST * Telephone Encounter - Quita Larson RN - 05/30/2023 8:09 AM EDT Patient requesting refills as follows: Requested Prescriptions Pending Prescriptions Disp Refills methocarbamol (ROBAXIN) 500 mg tablet 60 tablet 0 Sig: Take 1 tablet by mouth two times a day as needed. Please review and advise. Quita Larson RN Last prescribed 11/23/22 Last OV 04/20/23 Next OV - to be scheduled documented in this encounterDiley Ridge Medical Center09-27-2023 NoteHNO ID: [id number] Author: George Tucker, PT, DPT Service: ? Author Type: Physical Therapist Type: Progress Notes Filed: 05/18/2023 2:31 PM Note Text: Episode Visit Count: 9 Therapist That Will Accept/Oversee The Plan Of Care: Garrett Start of Care Date: 01/10/23 Onset Date: 01/11/16 Plan of Care Certification Date: 05/05/23 Next Certification Due Date: 06/30/23 Patient Identified by Name and Date of : Yes REHABILITATION AND SPORTS THERAPY PHYSICAL THERAPY TREATMENT NOTE ASSESSMENT: Chiara Croft tolerated the session with no issues. She demonstrated improvements in tolerance to standing and leg strenghtening without back pain. The patient will continue to benefit from ongoing skilled physical therapy to progress toward set goals. PLAN FOR NEXT VISIT: SUBJECTIVE: Pt reports that she has been doing well for the past couple of week and feels the ex's are helpful Pain: OBJECTIVE MEASURES WITH LEVEL OF FUNCTION: TREATMENT: Therapeutic Exercise: 1: bridge 10x2 2: sit to stand squat 10x2 3: ball squat 10x2 4: discussed arm exs and core stabilization with UE ex's 5: review of home program and progression of walking Skilled Intervention: Patient was educated in proper exercise technique and purpose for exercises. Skilled judgment was provided in selection of appropriate interventions. Manual Therapy: 1: dry needle Skilled Intervention: Manual skills to improve joint mobility, ROM, and decrease pain. Utilized anatomy knowledge of the therapist, and assessment of patient's response to intervention. Dry needling to following Trigger points: lumbar paraspinals, superior glutes Needle length: 50mm 2.0 in . [place] used 8, needles removed 8. Dry needling technique used: Deep needling. Patient education on purpose, precautions, safety, risks, and other treatment options regarding dry needling. Verbal consent received. Billing Therapeutic Exercise Treatment Minutes: 30 Manual TherapyTreatment Minutes: 8 Total Session Time (minutes): 38 Session Start Time : 1237 Session Stop Time : 1315 Access Code: [email or web address] URL: [email or web address] Date: 05/18/2023 Prepared by: George Tucker Exercises - Prone Press Up On Elbows - 1 x daily - 7 x weekly - 3 sets - 10 reps - 3 hold - Upper Back Extension Off Table - 1 x daily - 7 x weekly - 3 sets - 10 reps - Prone Hip Extension with Pillow Under Abdomen - 1 x daily - 7 x weekly - 3 sets - 10 reps - 3 sec hold - Cat Cow - 1 x daily - 7 x weekly - 1 sets - 10 reps - 10 sec hold - Seated Thoracic Lumbar Extension - 1 x daily - 7 x weekly - 1 sets - 10 reps - 10 sec hold - Supine Bridge - 1 x daily - 7 x weekly - 2 sets - 10 reps - 3 sec hold - Wall Squat with Chilean Ball - 1 x daily - 7 x weekly - 3 sets - 10 reps - Sit to Stand Without Arm Support - 1 x daily - 7 x weekly - 3 sets - 10 reps GEORGE TUCKER, PT, [facility]09-21-2023 Miscellaneous Notes * Telephone Encounter - Jesi Parikh LPN - 05/12/2023 1:32 PM EDT Patient phones requesting refills as follows: Requested Prescriptions Pending Prescriptions Disp Refills losartan (COZAAR) 50 mg tablet 145 tablet 1 Sig: TAKE 1 & 1/2 (ONE & ONE-HALF) TABLETS BY MOUTH ONCE DAILY LOV11/26/22 Labs-03/09/23 NOV-none Please review and advise. Jesi Parikh LPN documented in this encounterDiley Ridge Medical Center09-14-2023 NoteHNO ID: [id number] Author: George Tucker, PT, DPT Service: ? Author Type: Physical Therapist Type: Progress Notes Filed: 05/05/2023 11:26 AM Note Text: Episode Visit Count: 8 Therapist That Will Accept/Oversee The Plan Of Care: Garrett Start of Care Date: 01/10/23 Onset Date: 01/11/16 Plan of Care Certification Date: 05/05/23 Next Certification Due Date: 06/30/23 Patient Identified by Name and Date of : Yes REHABILITATION AND SPORTS THERAPY PHYSICAL THERAPY PROGRESS REPORT PLAN OF CARE UPDATE: Assessment: Chiara Croft demonstrates moderate improvement in standing, walking, and physical activities. She has progressed toward goals. Patient continues to present with impairments in ADL's, gait, independence in exercise, strength, symptom management, and tissue tenderness that interfere with . Current prognosis is Good due to: current objective clinical presentation . Pt has difficulty with increased tone in lower back paraspinals and mobility issues in thoracic spine. She will benefit from continued skilled therapy services to meet the updated goals for this plan of care as noted below. Goals for Episode of Care: created on 01/10/23 through 03/21/23 Independent in home exercises. ONGOING Patient will decrease pain to 2/10 with functional activities to allow patient to improve ambulation and standing tolerance for ADLs. ONGOING Restore pain-free lumbar ROM to minimal limitation in standing flexion to allow for ADLs ONGOING Stand / Walk 30 minutes without pain/symptoms. ONGOING Knowledgeable regarding prophylaxis. Patient will increase strength of bilateral hips to 5/5 to allow for improve ability to complete ADLs. ONGOING Patient Goals: aleeviate pain and get stronger Planned Interventions, Frequency, and Duration: 1x/week, 8 weeks Total Number of Visits Planned: 8 Patient to be seen for Therapeutic exercise (25588), Neuromuscular re-education (23208), Manual therapy (01467), Therapeutic activities (57718), Self-shelter management (47023), Gait Training (59544), Patient/Family/Caregiver Education, Body Mechanics Training, Functional training, General Conditioning, E-Stim Unattended (18184) PLAN FOR NEXT VISIT: progress extension in upper back SUBJECTIVE: . Pt feels like her legs arent moving very well. Pt at times has pain when she walks in her left buttock and down her leg. Pt reports she almost has to sleep on her back Pain: Pain Pain Level: 5 PROMIS Scales Higher is Better 04/18/2023 03/15/2023 03/07/2023 Phys Func - Score 33 (moderate dysfunction) - 38 (moderate dysfunction) Phys Func - Percentile 4 % - 12 % Self-Eff Symptom - Score 38 (Low) 39 (Low) - Self-Eff Symptom - Percentile 12 % 14 % - T-scores: mean of general population = 50. 5 points is clinically meaningfully difference Percentiles provide an indication of how the patient's score ranks in relation to the general population. Higher percentile rankings indicate better function/quality of life. 50th percentile is the average of the general population and indicates half of respondents had a worse score. OBJECTIVE MEASURES WITH LEVEL OF FUNCTION: LE Strength R Hip Flexion (L2): 5/5 R Ankle Dorsiflexion (L4): 4/5 R Great Toes Extension (L5, S1): 5/5 L Hip Flexion (L2): 4-/5 L Knee Extension (L3): 4-/5 L Great Toes Extension (L5, S1): 4/5 TREATMENT: Therapeutic Exercise: 1: prone small press up with PPT at lumbar spine 10x 2: cat to neutral with focus on L5/S1 flexion 3: ryan pose 20x5 4: prone alt hip ext 10x2 5: prone chest lift Skilled Intervention: Patient was educated in proper exercise technique and purpose for exercises. Skilled judgment was provided in selection of appropriate interventions. Manual Therapy: 1: dry needle Skilled Intervention: Manual skills to improve joint mobility, ROM, and decrease pain. Utilized anatomy knowledge of the therapist, and assessment of patient's response to intervention. Dry needling to following Trigger points: lumbar and thoracic paraspinals Needle length: 30mm 1.2 in and 50mm 2.0 in . Cordova used 14, needles removed 14. Dry needling technique used: Basic needling. Patient education on purpose, precautions, safety, risks, and other treatment options regarding dry needling. Verbal consent received. Self-Long Term Management: 1: discussed body scan meditation and other muscle relaxation techniques for lower lumbar spine, having more awareness of muscle tension Skilled Intervention: Reviewed patient specific diagnosis in relation to activities of daily living/home management. Billing Therapeutic Exercise Treatment Minutes: 30 Manual TherapyTreatment Minutes: 10 Self-Care/Home Management Treatment Minutes: 15 Total Session Time (minutes): 57 Session Start Time : 914 Session Stop Time : 101 Access Code: [email or web address] URL: [email or web address] Date: 05/05/2023 Prepared by: George Lawler (more content not included)...[facility]09-14-2023 History of Present illness Narrative* George Tucker, PT, DPT - 05/05/2023 9:11 AM EDT Episode Visit Count: 8 Therapist That Will Accept/Oversee The Plan Of Care: Garrett Start of Care Date: 01/10/23 Onset Date: 01/11/16 Plan of Care Certification Date: 05/05/23 Next Certification Due Date: 06/30/23 Patient Identified by Name and Date of : Yes REHABILITATION AND SPORTS THERAPY PHYSICAL THERAPY PROGRESS REPORT PLAN OF CARE UPDATE: Assessment: Chiara Croft demonstrates moderate improvement in standing, walking, and physical activities. She has progressed toward goals. Patient continues to present with impairments in ADL's, gait, independence in exercise, strength, symptom management, and tissue tenderness that interfere with . Currentprognosis is Good due to: current objective clinical presentation . Pt has difficulty with increased tone in lower back paraspinals and mobility issues in thoracic spine. She will benefit from continued skilled therapy services to meet the updated goals for this plan of care as noted below. Goals for Episode of Care: created on 01/10/23 through 03/21/23 Independent in home exercises. ONGOING Patient will decrease pain to 2/10 with functional activities to allow patient to improve ambulation and standing tolerance for ADLs. ONGOING Restore pain-free lumbar ROM to minimal limitation in standing flexion to allow for ADLs ONGOING Stand / Walk 30 minutes without pain/symptoms. ONGOING Knowledgeable regarding prophylaxis. Patient will increase strength of bilateral hips to 5/5 to allow for improve ability to complete ADLs. ONGOING Patient Goals: aleeviate pain and get stronger Planned Interventions, Frequency, and Duration: 1x/week, 8 weeks Total Number of Visits Planned: 8 Patient to be seen for Therapeutic exercise (73561), Neuromuscular re-education (68206), Manual therapy (07190), Therapeutic activities (67380), Self-shelter management (35508), Gait Training (97237), Patient/Family/Caregiver Education, Body Mechanics Training, Functional training, General Conditioning, E-Stim Unattended (40183) PLAN FOR NEXT VISIT: progress extension in upper back SUBJECTIVE: . Pt feels like her legs arent moving very well. Pt at times has pain when she walks inher left buttock and down her leg. Pt reports she almost has to sleep on her back Pain: Pain Pain Level: 5 PROMIS Scales Higher is Better 04/18/2023 03/15/2023 03/07/2023 Phys Func - Score 33 (moderate dysfunction) - 38 (moderate dysfunction) Phys Func - Percentile 4 % - 12 % Self-Eff Symptom - Score 38 (Low) 39 (Low) - Self-Eff Symptom - Percentile 12 % 14 % - T-scores: mean of general population = 50. 5 points is clinically meaningfully difference Percentiles provide an indication of how the patient's score ranks in relation to the general population. Higher percentile rankings indicate better function/quality of life. 50th percentile is the average of the general population and indicates half of respondents had a worse score. OBJECTIVE MEASURES WITH LEVEL OF FUNCTION: LE Strength R Hip Flexion (L2): 5/5 R Ankle Dorsiflexion (L4): 4/5 R Great Toes Extension (L5, S1): 5/5 L Hip Flexion (L2): 4-/5 L Knee Extension (L3): 4-/5 L Great Toes Extension (L5, S1): 4/5 TREATMENT: Therapeutic Exercise: 1: prone small press up with PPT at lumbar spine 10x 2: cat to neutral with focus on L5/S1 flexion 3: ryan pose 20x5 4: prone alt hip ext 10x2 5: prone chest lift Skilled Intervention: Patient was educated in proper exercise technique and purpose for exercises. Skilled judgment was provided in selection of appropriate interventions. Manual Therapy: 1: dry needle Skilled Intervention: Manual skills to improve joint mobility, ROM, and decrease pain. Utilized anatomy knowledge of the therapist, and assessment of patient's response to intervention. Dry needling to following Trigger points: lumbar and thoracic paraspinals Needle length: 30mm 1.2 in and 50mm 2.0 in . Cordova used 14, needles removed 14. Dry needling technique used: Basic needling. Patient education on purpose, precautions, safety, risks, and other treatment options regarding dry needling. Verbal consent received. Self-Long Term Management: 1: discussed body scan meditation and other muscle relaxation techniques for lower lumbar spine, having more awareness of muscle tension Skilled Intervention: Reviewed patient specific diagnosis in relation to activities of daily living/home management. Billing Therapeutic Exercise Treatment Minutes: 30 Manual TherapyTreatment Minutes: 10 Self-Care/Home Management Treatment Minutes: 15 Total Session Time (minutes): 57 Session Start Time : 914 Session Stop Time : 1011 Access Code: [email or web address] URL: [email or web address] Date: 05/05/2023 Prepared by: George Tucker Exercises - Prone Press Up On Elbows - 1 x daily - 7 x weekly - 3 sets - 10 reps - 3 hold - Upper Back Extension Off Table - 1 x daily - 7 x weekly - 3 sets - 10 reps - Prone Hip Extension with Pillow Under Abdomen - 1 x daily - 7 x weekly - 3 sets - 10 reps - 3 sechold - Cat Cow - 1 x daily - 7 x weekly - 1 sets - 10 reps - 10 sec hold - Seated Thoracic Lumbar Extension - 1 x daily - 7 x weekly - 1 sets - 10 reps - 10 sec hold GEORGE TUCKER PT, DPT documented in this encounterD[facility]-31-[facility]23 NoteHNO ID: [id number] Author: George Tucker PT, DPT Service: ? Author Type: Physical Therapist Type: Progress Notes Filed: 04/21/2023 11:12 AM Note Text: Episode Visit Count: 7 Therapist That Will Accept/Oversee The Plan Of Care: Garrett Start of Care Date: 01/10/23 Onset Date: 01/11/16 Plan of Care Certification Date: 03/17/23 Next Certification Due Date: 04/28/23 Patient Identified by Name and Date of : Yes REHABILITATION AND SPORTS THERAPY PHYSICAL THERAPY TREATMENT NOTE ASSESSMENT: Chiara Croft tolerated the session with decreased symptoms. She demonstrated improvements in pain level with discussion on low back muscle guarding reduction and activities to reduce guarding. The patient will continue to benefit from ongoing skilled physical therapy to progress toward set goals. PLAN FOR NEXT VISIT: reassessment. dry needle SUBJECTIVE: Pt reports her pain has been up and down. She was in bed all Tuesday because her pain level continued to rise throughout the day. Pain: OBJECTIVE MEASURES WITH LEVEL OF FUNCTION: TREATMENT: Therapeutic Exercise: 1: prone alt hip ext 2: supine october with focus on low back relaxation 3: diaphragmatic breathing in supine 4: discussed vibration on legs t reduce back guarding Skilled Intervention: Patient was educated in proper exercise technique and purpose for exercises. Skilled judgment was provided in selection of appropriate interventions. Manual Therapy: 1: dry needle Skilled Intervention: Manual skills to improve joint mobility, ROM, and decrease pain. Utilized anatomy knowledge of the therapist, and assessment of patient's response to intervention. Dry needling to following Trigger points: lumbar and thoracic paraspinals Needle length: 30mm 1.2 in, 40mm 1.5 in , and 50mm 2.0 in . Cordova used 12, needles removed 12. Dry needling technique used: Basic needling and Deep needling. Patient education on purpose, precautions, safety, risks, and other treatment options regarding dry needling. Verbal consent received. Billing Therapeutic Exercise Treatment Minutes: 30 Manual TherapyTreatment Minutes: 15 Total Treatment Time Minutes (timed/untimed): 45 Session Start Time : 829 Session Stop Time : 919 GEORGE TUCKER PT, [facility]08-31-2023 History of Present illness Narrative* George Tucker PT, DPT - 04/21/2023 8:33 AM EDT Episode Visit Count: 7 Therapist That Will Accept/Oversee The Plan Of Care: Garrett Start of Care Date: 01/10/23 Onset Date: 01/11/16 Plan of Care Certification Date: 03/17/23 Next Certification Due Date: 04/28/23 Patient Identified by Name and Date of : Yes REHABILITATION AND SPORTS THERAPY PHYSICAL THERAPY TREATMENT NOTE ASSESSMENT: Chiara Croft tolerated the session with decreased symptoms. She demonstrated improvements in pain level with discussion on low back muscle guarding reduction and activities to reduce guarding. The patient will continue to benefit from ongoing skilled physical therapy to progress toward set goals. PLAN FOR NEXT VISIT: reassessment. dry needle SUBJECTIVE: Pt reports her pain has been up and down. She was in bed all Tuesday because her pain level continued to rise throughout the day. Pain: OBJECTIVE MEASURES WITH LEVEL OF FUNCTION: TREATMENT: Therapeutic Exercise: 1: prone alt hip ext 2: supine october with focus on low back relaxation 3: diaphragmatic breathing in supine 4: discussed vibration on legs t reduce back guarding Skilled Intervention: Patient was educated in proper exercise technique and purpose for exercises. Skilled judgment was provided in selection of appropriate interventions. Manual Therapy: 1: dry needle Skilled Intervention: Manual skills to improve joint mobility, ROM, and decrease pain. Utilized anatomy knowledge of the therapist, and assessment of patient's response to intervention. Dry needling to following Trigger points: lumbar and thoracic paraspinals Needle length: 30mm 1.2 in, 40mm 1.5 in , and 50mm 2.0 in . Cordova used 12, needles removed 12. Dry needling technique used:Basic needling and Deep needling. Patient education on purpose, precautions, safety, risks, and other treatment options regarding dry needling. Verbal consent received. Billing Therapeutic Exercise Treatment Minutes: 30 Manual TherapyTreatment Minutes: 15 Total Treatment Time Minutes (timed/untimed): 45 Session Start Time : 829 Session Stop Time : 919 GEORGE TUCKER PT, DPT documented in this encounterD[facility]08-30-2023 History of Present illness Narrative* Brando Gibson MD - 04/20/2023 3:36 PM EDT [facility] Date: April 20, 2023 - 3:36 PM Chief Complaint: back pain SUBJECTIVE: Ms. Croft presents to the [facility] for a follow up appointment regarding chronic lower back pain. She states that since the last visit symptoms have been persistent. The pain is locatedin the bilateral lower back region and radiates anteriorly to anterior thighs. The pain is described as aching, burning, dull, sharp, soreness, stabbing, stiff, and tightness andis rated as a 6 out of 10. Symptoms interfere with physical activity, cooking, household cleaning, and lifting. The pain is exacerbated by physical activity and twisting. The pain is mitigated by heat, stretching, and getting off my feet. . REVIEW OF SYSTEMS: Constitutional: (-) Fever (-) Night Sweats (-) Weight Gain (-) Weight Loss (-) Fatigue Cardiovascular: (-) Chest Pain (-) Palpitations (-) Lightheadedness (-) Swelling of Ankles (-) Hx Heart Surgery Respiratory: (+) Shortness of Breath (-) Cough (-) Wheezing (-) Snoring Gastrointestinal: (-) Incontinence (-) Abdominal Pain (-) Diarrhea (-) Constipation (+) Nausea/Vomiting (-) Heart Burn Endocrine: (+) Thyroid Disorder (-) Diabetes Hematologic: (+) Prolonged Bleeding (+) Easy Bruising Genitourinary: (-) Incontinence (-) Frequency (-) Urinary Urgency Skin: (-) Rashes (-) Itching (-) Other Lesions Neurologic: (-) Headache (-) Double Vision (-) Confusion (-) Paralysis Psychiatric: (-) Depression (-) Anxiety (-) Delusions (-) Hallucinations (-) Personal History of Alcohol or Substance Abuse (-) Family History of Alcohol or Substance Abuse PAST MEDICAL HISTORY Diagnosis Date Abdominal pain Arthritis Asthma Degenerative disc disease Depression Disorder of bone and cartilage, unspecified History of transfusion HTN (hypertension) Hypothyroid Intrinsic asthma Mixed hyperlipidemia Hyperlipidemia Osteoarthrosis, unspecified whether generalized or localized, other specified sites PMH - PAST MEDICAL HISTORY OF CVA with weakness left side PMH - PAST MEDICAL HISTORY OF 2000 left cervical radiculopathy PMH - PAST MEDICAL HISTORY OF 2003 right rib fracture PMH - PAST MEDICAL HISTORY OF 2005 right shoulder impingement syndrome Spinal stenosis Stroke (HCC) 2006 Unspecified hypothyroidism PAST SURGICAL HISTORY Procedure Laterality Date APPENDECTOMY 1960 APPENDECTOMY HX BACK SURGERY HX 2017 L3-5 Decompression and Fusion CATARACT EXTRACTION HX Bilateral COLONOSCOPY N/A 09/15/2016 MAC EGD W/O [facility] SPEC VARICIES INJ 09/17/2016 EGD W/O [facility] SPEC VARICIES INJ 11/15/2022 EPIDURAL SITE SPECIFY lumbar spine EYE SURGERY HX PAST SURGICAL HISTORY OF 1976 thyroidectomy for toxic goiter SKIN BIOPSY HX TONSILLECTOMY HX TONSILLECTOMY PRIMARY/SECONDARY <AGE 12 Tonsillectomy ALLERGIES Allergen Reactions Cymbalta [Duloxetin* Other: See Comments Tremor Fosamax [Alendronat* Intolerance Reflux Septra [Sulfamethox* Hives swelling and SOB Sulfamethoxazole Hives Tramadol Other: See Comments Tremor Trimethoprim Hives Bupropion Other: See Comments Current Outpatient Medications Medication Sig HYDROcodone-acetaminophen (NORCO) 5-325 mg per tablet Take 1 tablet by mouth every 6 hours as needed for pain for up to 5 days. levothyroxine (LEVOXYL) 88 mcg tablet Take 1 tablet by mouth once daily. Take on empty stomach. ForThyroid zinc sulfate 220 mg (50 mg zinc) capsule famotidine (PEPCID) 40 mg tablet Take 1 tablet by mouth once daily as needed. fluticasone-salmeterol (ADVAIR, WIXELA) 250-50 mcg/dose inhaler lansoprazole (PREVACID) 15 mg capsule Take 1 capsule by mouth once daily. losartan (COZAAR) 50 mg tablet TAKE 1 & 1/2 (ONE & ONE-HALF) TABLETS BY MOUTH ONCE DAILY rosuvastatin (CRESTOR) 5 mg tablet Take 1 tablet by mouth once daily. clopidogrel (PLAVIX) 75 mg tablet Take 1 tablet by mouth once daily. [facility] ID: [id number] [email or web address] albuterol HFA (VENTOLIN HFA) 90 mcg/actuation inhaler Inhale 2 Puffs as instructed every 4 hours asneeded for wheezing/shortness of breath. lidocaine (SALONPAS) 4 % patch Apply as directed once daily. denosumab (PROLIA) 60 mg/mL syrg Inject 60 mg subcutaneously one time only. Cholecalciferol, Vitamin D3, 25 mcg (1,000 unit) cap Vitamin D acetaminophen (TYLENOL) 500 mg tablet Take 500 mg by mouth every 8 hours as needed. CALCIUM CARBONATE (CALCIUM 500 ORAL) Take by mouth. Current Facility-Administered Medications Medication Dose Route Frequency denosumab 60 mg injection (PROLIA) 60 mg SUBCUTANEOUS Q 6 MONTH I have reviewed the nurses notes and I am aware of the family/social history. Since the last evaluation the medical history has not changed. PDMP website checked and validated. All prescriptions have been APPROPRIATELY filled. No suspiciousactivity was identified. 04/20/2023 by Brando Gibson MD Narcotic Agreement reviewed and signed?: N/A on April 20, 2023 Urine Panel: No results found for: UQCANN, UQBNZL, LJK0CRF, UQAMPH, UQMAMP, UQBUPRE, UQNORBUP, UQMTHD, UQEDDP, UQTRAM, UQDTRM, UQFNTL, UQNFTL, UQCODE, UQMORP, UQDCDN, UQHCOD, UQOXYC, UQHMOR, UQOXYM, UQCREA, UQPH, UQSPGR, UQOXID, UQSPQ The pain panel was N/A PHYSICAL EXAMINATION: Performed in conjunction with observation. The patient was alert and oriented x3. The patient was in no acute distress. Lungs: Clear, negative for dyspnea or distress. CVR: Regular Rate. Negative for SOB or peripheral edema. Neck: Supple. The range of motion was intact. Back: Range of motion of the trunk was limited. Lateral lumbosacral tenderness. Difficult with flexion to extension motion. This reproduced concordant back pain. SLR: Equivocal Facet Loading: Positive with axial loading and extension. SI joint: Negative PSIS tenderness. Extremities: no reported edema or erythema. Gait: Low to stand with flexed posture. ASSESSMENT: Hip pain Lumbar spondylosis (primary encounter diagnosis) Status post lumbar spinal fusion Lumbar foraminal stenosis Myofascial pain syndrome of lumbar spine PLAN: Prior available imaging studies were reviewed. Findings were discussed. Injection history was reviewed. Medication use and compliance were reviewed. 1. Discussed multicomponent pain source. She does have acute flareup of pain symptoms and will provide short course of pain medications. She has responded to the facet RFA procedure but it was discussed that she does have other components including foraminal narrowing above the fusion at L2-L3 level and significant muscle wasting in the lumbosacral region. 2. Interventional procedure options discussed. None at this time however, we did discuss bilateral L2-3 lumbar transforaminal injection if she is having persistent radicular pain symptoms. 3. Requested Prescriptions Signed Prescriptions Disp Refills HYDROcodone-acetaminophen (NORCO) 5-325 mg per tablet 20 tablet 0 Sig: Take 1 tablet by mouth every 6 hours as needed for pain for up to 5 days. 4. Encouraged regular home exercise program. 5) F/U in 2 months The treatment plan was discussed with the patient during the office visit and they verbalized an understanding of it. I have discussed and confirmed the above treatment plan with the patient and I have reviewed the nurses notes and I am aware of the family/social history. I have confirmed ROS findings. Brando Gibson MD cc: Dr. Angie Aguirre APRN.WEIGHT ANALYST cc: No referring provider defined for this encounter. Phone: N/A Fax: Results of consultation to be transmitted via electronic medical record for those providers who practice within [facility] or with access to [employer] via [employer], or via letter. 1. This document has been created with the use of voice recognition technology. It may contain inaccuracies: (e.g. misspellings, inaccurate syntax or word sense) that have escaped review. 2. The nurse practitioner, nursing staff and medical assistants are a major part of YOUR TREATMENT TEAM and will be handling your phone calls and inquiries, if any. Unless explicitly told otherwise at the time of your office visit, your study results and ensuing treatment plans will be discussed during your follow- up appointment. If you do not have a follow-up appointment and wish to discuss any issues, please set up an appointment. 3. It is my practice to not fill disability or any other insurance-related forms/documentation. Allof the office notes, study results, and other pertinent documentation generated as part of your evaluation will be available to you and to your Primary Care Physician (PCP). Use of this material to complete such forms will be at the discretion of your PCP/referring physician. documented in this encounterD[facility]08-03-2023 NoteHNO ID: [id number] Author: George Tucker PT, DPT Service: ? Author Type: Physical Therapist Type: Progress Notes Filed: 03/24/2023 11:43 AM Note Text: Episode Visit Count: 6 Therapist That Will Accept/Oversee The Plan Of Care: Garrett Start of Care Date: 01/10/23 Onset Date: 01/11/16 Plan of Care Certification Date: 03/17/23 Next Certification Due Date: 04/28/23 Patient Identified by Name and Date of : Yes REHABILITATION AND SPORTS THERAPY PHYSICAL THERAPY TREATMENT NOTE ASSESSMENT: Chiara Croft tolerated the session with decreased symptoms. She demonstrated improvements in back and radicular symptoms with flexion based ex's. She had difficulty with standing stabilization ex's this date but did well with dry needling to reduce pain. The patient will continue to benefit from ongoing skilled physical therapy to progress toward set goals. PLAN FOR NEXT VISIT: progress stabilization/side plank SUBJECTIVE: Pt reports feeling worse the past couple of days. Pain: OBJECTIVE MEASURES WITH LEVEL OF FUNCTION: Muscle guarding lumbar paraspinals TREATMENT: Therapeutic Exercise: 1: PPT 10x10 2: Cat no cow 10x10 3: ryan pose 10x5 4: pallof press gr [id number] Skilled Intervention: Patient was educated in proper exercise technique and purpose for exercises. Skilled judgment was provided in selection of appropriate interventions. Manual Therapy: 1: supine knee to chest rock for flexion=better but hip pain 2: dry needle Skilled Intervention: Manual skills to improve joint mobility, ROM, and decrease pain. Utilized anatomy knowledge of the therapist, and assessment of patient's response to intervention. Dry needling to following Trigger points: bilateral lumbar paraspinals and upper glutes Needle length: 60mm 2.5 in. Cordova used 12, needles removed 12. Dry needling technique used: Pistoning and Deep needling. Patient education on purpose, precautions, safety, risks, and other treatment options regarding dry needling. Verbal consent received. Billing Therapeutic Exercise Treatment Minutes: 25 Manual TherapyTreatment Minutes: 15 Total Treatment Time Minutes (timed/untimed): 45 Session Start Time : 917 Session Stop Time : 1008 GEORGE TUCKER PT, [facility] History of Present illness Narrative* George Tucker PT, DPT - 03/24/2023 9:18 AM EDT Episode Visit Count: 6 Therapist That Will Accept/Oversee The Plan Of Care: Garrett Start of Care Date: 01/10/23 Onset Date: 01/11/16 Plan of Care Certification Date: 03/17/23 Next Certification Due Date: 04/28/23 Patient Identified by Name and Date of : Yes REHABILITATION AND SPORTS THERAPY PHYSICAL THERAPY TREATMENT NOTE ASSESSMENT: Chiara Croft tolerated the session with decreased symptoms. She demonstrated improvements in back and radicular symptoms with flexion based ex's. She had difficulty with standing stabilization ex's this date but did well with dry needling to reduce pain. The patient will continue to benefit from ongoing skilled physical therapy to progress toward set goals. PLAN FOR NEXT VISIT: progress stabilization/side plank SUBJECTIVE: Pt reports feeling worse the past couple of days. Pain: OBJECTIVE MEASURES WITH LEVEL OF FUNCTION: Muscle guarding lumbar paraspinals TREATMENT: Therapeutic Exercise: 1: PPT 10x10 2: Cat no cow 10x10 3: ryan pose 10x5 4: pallof press gr [id number] Skilled Intervention: Patient was educated in proper exercise technique and purpose for exercises. Skilled judgment was provided in selection of appropriate interventions. Manual Therapy: 1: supine knee to chest rock for flexion=better but hip pain 2: dry needle Skilled Intervention: Manual skills to improve joint mobility, ROM, and decrease pain. Utilized anatomy knowledge of the therapist, and assessment of patient's response to intervention. Dry needling to following Trigger points: bilateral lumbar paraspinals and upper glutes Needle length: 60mm 2.5 in. Cordova used 12, needles removed 12. Dry needling technique used: Pistoning and Deep needling. Patient education on purpose, precautions, safety, risks, and other treatment options regarding dry needling. Verbal consent received. Billing Therapeutic Exercise Treatment Minutes: 25 Manual TherapyTreatment Minutes: 15 Total Treatment Time Minutes (timed/untimed): 45 Session Start Time : 917 Session Stop Time : 100 GEORGE TUCKER PT, DPT documented in this encounterDiley [facility]07-27-2023 NoteHNO ID: [id number] Author: George Tucker PT, DPT Service: ? Author Type: Physical Therapist Type: Progress Notes Filed: 03/17/2023 9:13 AM Note Text: Episode Visit Count: 5 Therapist That Will Accept/Oversee The Plan Of Care: Linusjaime Start of Care Date: 01/10/23 Onset Date: 01/11/16 Plan of Care Certification Date: 03/17/23 Next Certification Due Date: 04/28/23 Patient Identified by Name and Date of : Yes REHABILITATION AND SPORTS THERAPY PHYSICAL THERAPY PROGRESS REPORT PLAN OF CARE UPDATE: Assessment: Chiara Croft demonstrates significant improvement in sitting, standing, walking, and physical activities . She has progressed toward goals. Patient continues to present with impairments in ADL's, gait, independence in exercise, range of motion, and symptom management that interfere with standing and walking longer periods . Current prognosis is good She will benefit from continued skilled therapy services to meet the updated goals for this plan of care as noted below. Goals for Episode of Care: created on 01/10/23 through 03/21/23 Independent in home exercises. ONGOING Patient will decrease pain to 2/10 with functional activities to allow patient to improve ambulation and standing tolerance for ADLs. ONGOING Restore pain-free lumbar ROM to minimal limitation in standing flexion to allow for ADLs ONGOING Stand / Walk 30 minutes without pain/symptoms. ONGOING Knowledgeable regarding prophylaxis. Patient will increase strength of bilateral hips to 5/5 to allow for improve ability to complete ADLs. ONGOING Patient Goals: aleeviate pain and get stronger Planned Interventions, Frequency, and Duration: 1x/week, 8 weeks Total Number of Visits Planned: 8 Patient to be seen for Therapeutic exercise (78245), Neuromuscular re-education (16067), Manual therapy (31751), Therapeutic activities (38395), Self-shelter management (12423), Gait Training (08238), Patient/Family/Caregiver Education, Body Mechanics Training, Functional training, General Conditioning, E-Stim Unattended (89003) PLAN FOR NEXT VISIT: work on side plank, bird dog. SUBJECTIVE: . Pt reports she is now walking 1.5 miles 4x a week. Pain: PROMIS Scales Higher is Better 03/15/2023 03/07/2023 01/06/2023 Phys Func - Score - 38 (moderate dysfunction) 39 (moderate dysfunction) Phys Func - Percentile - 12 % 14 % Self-Eff Symptom - Score 39 (Low) - - Self-Eff Symptom - Percentile 14 % - - T-scores: mean of general population = 50. 5 points is clinically meaningfully difference Percentiles provide an indication of how the patient's score ranks in relation to the general population. Higher percentile rankings indicate better function/quality of life. 50th percentile is the average of the general population and indicates half of respondents had a worse score. OBJECTIVE MEASURES WITH LEVEL OF FUNCTION: Lumbar Spine AROM Lumbar Flexion: Minimal limitation Lumbar Extension: Moderate limitation Lumbar R Side-Bend: Minimal limitation Lumbar L Side-Bend: Minimal limitation TREATMENT: Therapeutic Exercise: Skilled Intervention: Patient was educated in proper exercise technique and purpose for exercises. Skilled judgment was provided in selection of appropriate interventions. Manual Therapy: 1: dry needle Skilled Intervention: Manual skills to improve joint mobility, ROM, and decrease pain. Utilized anatomy knowledge of the therapist, and assessment of patient's response to intervention. Dry needling to following Trigger points: bilateral upper glute and lumbar parapsinals Needle length: 60mm 2.5 in. Cordova used 8, needles removed 8. Dry needling technique used: Deep needling. Patient education on purpose, precautions, safety, risks, and other treatment options regarding dry needling. Verbal consent received. Billing Therapeutic Exercise Treatment Minutes: 25 Manual TherapyTreatment Minutes: 13 Total Treatment Time Minutes (timed/untimed): 38 Session Start Time : 830 Session Stop Time : 909 GEORGE TUCKER PT, MAL[facility]07-27-[facility]23 History of Present illness Narrative* George Tucker PT, ALEXANDRE - 03/17/2023 8:31 AM EDT Episode Visit Count: 5 Therapist That Will Accept/Oversee The Plan Of Care: Garrett Start of Care Date: 01/10/23 Onset Date: 01/11/16 Plan of Care Certification Date: 03/17/23 Next Certification Due Date: 04/28/23 Patient Identified by Name and Date of : Yes REHABILITATION AND SPORTS THERAPY PHYSICAL THERAPY PROGRESS REPORT PLAN OF CARE UPDATE: Assessment: Chiara Croft demonstrates significant improvement in sitting, standing, walking, and physical activities . She has progressed toward goals. Patient continues to present with impairments in ADL's, gait, independence in exercise, range of motion, and symptom management that interfere with standingand walking longer periods . Current prognosis is good She will benefit from continued skilled therapy services to meet the updated goals for this plan of care as noted below. Goals for Episode of Care: created on 01/10/23 through 03/21/23 Independent in home exercises. ONGOING Patient will decrease pain to 2/10 with functional activities to allow patient to improve ambulation and standing tolerance for ADLs. ONGOING Restore pain-free lumbar ROM to minimal limitation in standing flexion to allow for ADLs ONGOING Stand / Walk 30 minutes without pain/symptoms. ONGOING Knowledgeable regarding prophylaxis. Patient will increase strength of bilateral hips to 5/5 to allow for improve ability to complete ADLs. ONGOING Patient Goals: aleeviate pain and get stronger Planned Interventions, Frequency, and Duration: 1x/week, 8 weeks Total Number of Visits Planned: 8 Patient to be seen for Therapeutic exercise (18770), Neuromuscular re-education (42315), Manual therapy (68857), Therapeutic activities (57495), Self-shelter management (67275), Gait Training (76370), Patient/Family/Caregiver Education, Body Mechanics Training, Functional training, General Conditioning, E-Stim Unattended (12920) PLAN FOR NEXT VISIT: work on [employer] SUBJECTIVE: . Pt reports she is now walking 1.5 miles 4x a week. Pain: PROMIS Scales Higher is Better 03/15/2023 03/07/2023 01/06/2023 Phys Func - Score - 38 (moderate dysfunction) 39 (moderate dysfunction) Phys Func - Percentile - 12 % 14 % Self-Eff Symptom - Score 39 (Low) - - Self-Eff Symptom - Percentile 14 % - - T-scores: mean of general population = 50. 5 points is clinically meaningfully difference Percentiles provide an indication of how the patient's score ranks in relation to the general population. Higher percentile rankings indicate better function/quality of life. 50th percentile is the average of the general population and indicates half of respondents had a worse score. OBJECTIVE MEASURES WITH LEVEL OF FUNCTION: Lumbar Spine AROM Lumbar Flexion: Minimal limitation Lumbar Extension: Moderate limitation Lumbar R Side-Bend: Minimal limitation Lumbar L Side-Bend: Minimal limitation TREATMENT: Therapeutic Exercise: Skilled Intervention: Patient was educated in proper exercise technique and purpose for exercises. Skilled judgment was provided in selection of appropriate interventions. Manual Therapy: 1: dry needle Skilled Intervention: Manual skills to improve joint mobility, ROM, and decrease pain. Utilized anatomy knowledge of the therapist, and assessment of patient's response to intervention. Dry needling to following Trigger points: bilateral upper glute and lumbar parapsinals Needle length: 60mm 2.5 in. Cordova used 8, needles removed 8. Dry needling technique used: Deep needling. Patient education on purpose, precautions, safety, risks, and other treatment options regarding dry needling. Verbal consent received. Billing Therapeutic Exercise Treatment Minutes: 25 Manual TherapyTreatment Minutes: 13 Total Treatment Time Minutes (timed/untimed): 38 Session Start Time : 830 Session Stop Time : 909 GEORGE TUCKER PT DPLing documented in this encounterDiley [facility] Center07-25-2023 History of Present illness Narrative* Spring Monk RDMS - 03/15/2023 10:45 AM EDT Radiology Service Progress Note PATIENT NAME: Chiara Croft DATE OF SERVICE: March 15, 2023 TIME: 11:17 AM PATIENT IDENTITY VERIFICATION COMPLETED USING TWO (2) IDENTIFIERS: Name and Date of confirmedby patient verbally. FALL SCREENING: Has the patient had 2 falls in the last year or 1 fall with injury or currently using an Ambulatory Assistive Device (Walker, Cane, Wheelchair, Crutches, etc.)? No PATIENT GENDER DATA: Female. status: : No status: NO. PATIENT RELEVANT IMPLANT DATA REVIEWED: Not Applicable RADIOLOGY DEPARTMENT: Ultrasound PERIPHERAL IV DATA: Not applicable SIGNED BY: Spring Monk RDMS March 15, 2023 11:17 AM documented in this encounterDiley [facility] Center07-20-2023 History of Present illness Narrative* Valentine Munoz LPN - 03/10/2023 9:49 AM EDT Patient presents for Prolia injection. Denies any problems at this time. Patient instructed on any SE of medication, verbalized understanding and agreed to proceed with treatment. Tolerated injectionwell. Valentine Munoz LPN documented in this encounterDiley [facility] Center07-14-2023 Miscellaneous Notes* Telephone Encounter - Angie Aguirre APRN.CNP - 03/04/2023 4:12 PM EDT Order placed. Angie Aguirre APRN.SAURABH * Telephone Encounter - Valentine Munoz LPN - 03/03/2023 9:57 AM EDT Patient scheduled for nurse visit 03/10/23 to receive Prolia. Please place new administration order at this time. Valentine Munoz LPN documented in this encounterDiley Ridge Medical Center07-14-2023 Nurse Note* Becca Morse RN - 03/04/2023 9:00 AM EDT Arrived in phase II via cart. Left lateral position. Sedated, but responds to verbal stimuli. Colornormal; skin warm and dry. Respirations wnl and unlabored. Abdomen soft and with + bowel sounds in quads X 4. Patient resting comfortably. Becca Morse RN documented in this encounterDiley Ridge Medical Center07-14-2023 History and physical note * Ross Cobb MD - 03/04/2023 8:45 AM EDT HPI Chiara Croft is a 77 year old female who is contacted today for a virtual visit This is an established patient of Angie Aguirre APRN.WEIGHT ANALYST Reports: feels awful. + fatigue. Not rested when she gets up. She was getting cramping in the left arm. Now she is getting cramps in the legs, torso, left arm, hand. Will cramp up into a claw. Cramps are painful. Also notices some eye twitching. Started about three weeks ago. Cramps in the legs will wake her up at night. Refers this will happen several times daily. Refers that if she moves her hand a certain direction, will trigger in her arm. She is drinking 8 glasses of water daily. Past medical history, appointments, medications, allergies reviewed 02/15/2023 Previous Medical History PAST MEDICAL HISTORY PAST MEDICAL HISTORY Diagnosis Date Abdominal pain Degenerative disc disease Depression Disorder of bone and cartilage, unspecified HTN (hypertension) Hypothyroid Intrinsic asthma Mixed hyperlipidemia Hyperlipidemia Osteoarthrosis, unspecified whether generalized or localized, other specified sites PMH - PAST MEDICAL HISTORY OF CVA with weakness left side PMH - PAST MEDICAL HISTORY OF 2000 left cervical radiculopathy PMH - PAST MEDICAL HISTORY OF 2003 right rib fracture PMH - PAST MEDICAL HISTORY OF 2005 right shoulder impingement syndrome Spinal stenosis Stroke (HCC) 2005 Unspecified hypothyroidism Previous Surgical History PAST SURGICAL HISTORY PAST SURGICAL HISTORY Procedure Laterality Date APPENDECTOMY 1960 BACK SURGERY HX 2016 L3-5 Decompression and Fusion CATARACT EXTRACTION HX Bilateral COLONOSCOPY N/A 09/15/2016 MAC EGD W/O [facility] SPEC VARICIES INJ 09/17/2016 EGD W/O [facility] SPEC VARICIES INJ 11/15/2022 EPIDURAL SITE SPECIFY lumbar spine PAST SURGICAL HISTORY OF 1976 thyroidectomy for toxic goiter TONSILLECTOMY PRIMARY/SECONDARY <AGE 11 Tonsillectomy Family History FAMILY HISTORY FAMILY HISTORY Problem Relation Age of Onset Cerebral Embolism Mother Osteoporosis Mother other (spinal stenosis) Mother other (depression) Mother other (cva) Mother other (depression) Father other (tramatic brain syndrome) Father s/p MVA other (aplastic thyroid tumor) Sister Depression Brother Stroke Maternal Grandfather Colon Cancer No Family History Patient Allergies ALLERGIES ALLERGIES Allergen Reactions Cymbalta [Duloxetin* Other: See Comments Tremor Fosamax [Alendronat* Intolerance Reflux Septra [Sulfamethox* Hives swelling and SOB Sulfamethoxazole Hives Tramadol Other: See Comments Tremor Trimethoprim Hives Bupropion Other: See Comments Current Medications Current Outpatient Medications on File Prior to Visit Medication Sig zinc sulfate 220 mg (50 mg zinc) capsule famotidine (PEPCID) 40 mg tablet Take 1 tablet by mouth once daily as needed. iv contrast (will be provided with radiology test) MRI LSP Inject, intravenously, once for 1 dose. No IV access, insert saline lock prior to the beginning of sedation, infusion, injection of imaging exam. Discontinue saline lock post exam. If Pt. has a central line or IVAD, may access for administration according to line specific nursing protocol. Once exam is complete flush line and de-access according to line specific nursing protocol in the MR contrast administration guidelines link. (Patient not taking: Reported on 01/05/2023) levothyroxine (LEVOXYL) 88 mcg tablet Take 1 tablet by mouth once daily. Take on empty stomach. ForThyroid fluticasone-salmeterol (ADVAIR, WIXELA) 250-50 mcg/dose inhaler lansoprazole (PREVACID) 15 mg capsule Take 1 capsule by mouth once daily. losartan (COZAAR) 50 mg tablet TAKE 1 & 1/2 (ONE & ONE-HALF) TABLETS BY MOUTH ONCE DAILY rosuvastatin (CRESTOR) 5 mg tablet Take 1 tablet by mouth once daily. clopidogrel (PLAVIX) 75 mg tablet Take 1 tablet by mouth once daily. [facility] ID: [id number] [email or web address] albuterol HFA (VENTOLIN HFA) 90 mcg/actuation inhaler Inhale 2 Puffs as instructed every 4 hours asneeded for wheezing/shortness of breath. lidocaine (SALONPAS) 4 % patch Apply as directed once daily. denosumab (PROLIA) 60 mg/mL syrg Inject 60 mg subcutaneously one time only. Cholecalciferol, Vitamin D3, 25 mcg (1,000 unit) cap Vitamin D acetaminophen (TYLENOL) 500 mg tablet Take 500 mg by mouth every 8 hours as needed. CALCIUM CARBONATE (CALCIUM 500 ORAL) Take by mouth. No current facility-administered medications on file prior to visit. Social History SOCIAL HISTORY Social History Tobacco Use Smoking status: Former Packs/day: 0.50 Years: 8.00 Pack years: 4.00 Types: Cigarettes Smokeless tobacco: Never Tobacco comments: quit in 1969 Vaping Use Vaping Use: Never used Substance Use Topics Alcohol use: Yes Comment: 1-2 times per week Drug use: No EXAM: There were no vitals taken for this visit. Limited exam as visit was completed over the virtual platform. Virtual visit completed using video, limited exam completed. Patient sounds or appears ill: No General Appearance: Well appearing, alert, in no acute distress, well-hydrated, well nourished. Skin: Skin color normal Head: Normocephalic. No facial swelling or redness. EENT: Eyes nonreddened. No discharge. External ears nonreddened and no swelling. Neck: No mass or lesions. No swelling. FROM Patient is unable to speak in complete sentences: No Patient has labored breathing: No. Patient is audibly coughing: No Psych: Attitude - cooperative, easily engaged in conversation Affect - Euthymic, normal mood Mental status: Alert. Speech is clear and fluent with good repetition, comprehension Appearance - Normal hygiene and grooming appropriate Coordination: No abnormal or extraneous movements. Gait/Stance: Posture is normal. Health Maintenance List DTAP,TDAP,TD(2 - Td or Tdap) due on 03/31/2019 ADVANCE DIRECTIVE DISCUSSION Never done DEPRESSION ASSESSMENT Never done INFLUENZA(Season Ended) due on 04/22/2023 ANNUAL PCP TEAM CHRONIC DISEASE VISIT due on 11/23/2023 BP CONTROLLED (<130/80) due on 01/06/2024 DIABETES SCREEN due on 01/27/2026 BONE DENSITY Completed SPIROMETRY Completed HEPATITIS C SCREENING Completed SHINGRIX VACCINE Completed COVID-19 VACCINE Completed PNEUMOCOCCAL: 65+ Completed Data reviewed Last 5 Encounter BP Readings: Date: BP: 01/05/2023 126/72 12/30/2022 110/72 12/29/2022 120/67 12/01/2022 130/59 11/22/2022 122/74 BMI Readings from Last 5 Encounters: 01/05/23 : 24.95 kg/m 12/30/22 : 24.62 kg/m 12/29/22 : 25.38 kg/m 11/23/22 : 25.33 kg/m 11/15/22 : 24.27 kg/m Last 5 Encounter Wt Readings: Date: Wt: 01/05/2023 63.9 kg (140 lb 14 oz) 12/30/2022 63 kg (139 lb) 12/29/2022 65 kg (143 lb 4.8 oz) 11/23/2022 64.9 kg (143 lb) 11/15/2022 62.1 kg (137 lb) Medication and allergy list reviewed, reconciled and updated 02/15/2023 ASSESSMENT/PLAN: 1. Muscle cramps - ICD9: 729.82, ICD10: R25.2 (primary diagnosis) Pt with muscle cramps. Has been having some mild hyponatremia. R/o worsening. Also r/o hypocalcemia and parathyroid disease. - BASIC METABOLIC PNL - CK CREATINE KINASE - MAGNESIUM BLD - VITAMIN D 25 HYDROXY - PTH INTACT BLD - CALCIUM IONIZED BLOOD 2. Post-surgical hypothyroidism - ICD9: 244.0, ICD10: E89.0 Levothyroxine was recently decreased in the last couple of months. Recheck level. - TSH BLD - T4 FREE/FREE THYROX 3. Hyponatremia - ICD9: 276.1, ICD10: E87.1 Recheck levels. - BASIC METABOLIC PNL - CORTISOL BLD 4. Disorder of bone, unspecified - ICD9: 733.90, ICD10: M89.9 - VITAMIN D 25 HYDROXY Discussed treatment plan and patient voices understanding. Patient's questions answered appropriately. Medications and potential side effects were discussed and patient voices understanding. Return to the office as scheduled or as needed for worsening/no improvement. Angie Aguirre APRN.WEIGHT ANALYST UPDATED HISTORY AND PHYSICAL EXAMINATION SERVICE DATE: 03/04/2023 SERVICE TIME: 8:32 AM PHYSICAL EXAM MUST BE COMPLETED ON ADMISSION The History and Physical (completed in the past 30 days) has been reviewed and the patient has beenexamined. The contents accurately reflect the patient's condition with the following additions or revisions since the H&P was completed. Examination indicates no changes. This H&P can be found in the attached. SIGNATURE: Ross Cobb III, MD PATIENT NAME: Chiara Croft DATE: March 04, 2023 TIME: 8:32 AM documented in this encounterDiley [facility] Center07-03-2023 NoteHNO ID: [id number] Author: George Tucker, PT, DPT Service: ? Author Type: Physical Therapist Type: Progress Notes Filed: 02/21/2023 10:42 AM Note Text: Episode Visit Count: 4 Therapist That Will Accept/Oversee The Plan Of Care: Garrett Start of Care Date: 01/10/23 Onset Date: 01/11/16 Plan of Care Certification Date: 01/10/23 Next Certification Due Date: 04/04/23 Patient Identified by Name and Date of : Yes REHABILITATION AND SPORTS THERAPY PHYSICAL THERAPY TREATMENT NOTE ASSESSMENT: Chiara Croft tolerated the session with no issues. She demonstrated difficulty with seated ball ex's and plank d/t lack of core stability but improved with repetition. The patient will continue to benefit from ongoing skilled physical therapy to progress toward set goals. PLAN FOR NEXT VISIT: work on side plank, bird dog. SUBJECTIVE: PT reports that this morning she's not feeling so good. She was sitting a while last night. She also reports difficulty with muscle cramps. Pain: OBJECTIVE MEASURES WITH LEVEL OF FUNCTION: TREATMENT: Manual Therapy: Skilled Intervention: Manual skills to improve joint mobility, ROM, and decrease pain. Utilized anatomy knowledge of the therapist, and assessment of patient's response to intervention. Neuromuscular Re-Education: 2: seated on ball t-ball october 10x2 3: seated on t-ball with 2Kg weighted ball circles 10x2 each 4: quad alt LE 5x5x3 5: modified plank for core stability Skilled Intervention: Education in proprioceptive/kinesthetic awareness during dynamic activities. Dry needling to following Trigger points: bilateral lumbar paraspinals and right glute Needle length: 50mm 2.0 in . Cordova used 10, needles removed 10. Dry needling technique used: Pistoning and Deep needling. Patient education on purpose, precautions, safety, risks, and other treatment options regarding dry needling. Verbal consent received. Billing Therapeutic Exercise Treatment Minutes: 25 Manual TherapyTreatment Minutes: 15 Total Treatment Time Minutes (timed/untimed): 40 GEORGE TUCKER PT, [facility]07-03-2023 History of Present illness Narrative* George Tucker PT, DPT - 02/21/2023 9:35 AM EDT Episode Visit Count: 4 Therapist That Will Accept/Oversee The Plan Of Care: Garrett Start of Care Date: 01/10/23 Onset Date: 01/11/16 Plan of Care Certification Date: 01/10/23 Next Certification Due Date: 04/04/23 Patient Identified by Name and Date of : Yes REHABILITATION AND SPORTS THERAPY PHYSICAL THERAPY TREATMENT NOTE ASSESSMENT: Chiara Croft tolerated the session with no issues. She demonstrated difficulty with seated ball ex's and plank d/t lack of core stability but improved with repetition. The patient willcontinue to benefit from ongoing skilled physical therapy to progress toward set goals. PLAN FOR NEXT VISIT: work on side plank, bird dog. SUBJECTIVE: PT reports that this morning she's not feeling so good. She was sitting a while last night. She also reports difficulty with muscle cramps. Pain: OBJECTIVE MEASURES WITH LEVEL OF FUNCTION: TREATMENT: Manual Therapy: Skilled Intervention: Manual skills to improve joint mobility, ROM, and decrease pain. Utilized anatomy knowledge of the therapist, and assessment of patient's response to intervention. Neuromuscular Re-Education: 2: seated on ball t-ball october 10x2 3: seated on t-ball with 2Kg weighted ball circles 10x2 each 4: quad alt LE 5x5x3 5: modified plank for core stability Skilled Intervention: Education in proprioceptive/kinesthetic awareness during dynamic activities. Dry needling to following Trigger points: bilateral lumbar paraspinals and right glute Needle length: 50mm 2.0 in . Cordova used 10, needles removed 10. Dry needling technique used: Pistoning and Deep needling. Patient education on purpose, precautions, safety, risks, and other treatment options regarding dry needling. Verbal consent received. Billing Therapeutic Exercise Treatment Minutes: 25 Manual TherapyTreatment Minutes: 15 Total Treatment Time Minutes (timed/untimed): 40 GEORGE TUCKER PT, DPT documented in this encounterD[facility] NoteHNO ID: [id number] Author: George Tucker PT, DPT Service: ? Author Type: Physical Therapist Type: Progress Notes Filed: 02/16/2023 12:13 PM Note Text: Episode Visit Count: 3 Therapist That Will Accept/Oversee The Plan Of Care: Garrett Start of Care Date: 01/10/23 Onset Date: 01/11/16 Plan of Care Certification Date: 01/10/23 Next Certification Due Date: 04/04/23 Patient Identified by Name and Date of : Yes REHABILITATION AND SPORTS THERAPY PHYSICAL THERAPY PROGRESS REPORT PLAN OF CARE UPDATE: Assessment: Chiara Croft demonstrates minimal improvement in standing and walking. She has progressed toward goals. Patient continues to present with impairments in ADL's, range of motion, strength, and symptom management that interfere with . Current prognosis is fair d/t chronicity of condition. Pt does well with neutral core position and nerve glides, dry needling completed for muscle guarding and to reduce neural tension along soft tissue peripherally. She will benefit from continued skilled therapy services to meet the updated goals for this plan of care as noted below. Goals for Episode of Care: created on 01/10/23 through 03/21/23 Independent in home exercises. Patient will decrease pain to 2/10 with functional activities to allow patient to improve ambulation and standing tolerance for ADLs. Restore pain-free lumbar ROM to minimal limitation in standing flexion to allow for ADLs Stand / Walk 30 minutes without pain/symptoms. Knowledgeable regarding prophylaxis. Patient will increase strength of bilateral hips to 5/5 to allow for improve ability to complete ADLs. Patient Goals: aleeviate pain and get stronger Planned Interventions, Frequency, and Duration: 1x/week, 8 weeks Total Number of Visits Planned: 8 Patient to be seen for Therapeutic exercise (65553), Neuromuscular re-education (48914), Manual therapy (69103), Therapeutic activities (54058), Self-shelter management (63789), Gait Training (89625), Patient/Family/Caregiver Education, Body Mechanics Training, Functional training, General Conditioning, E-Stim Unattended ([id number]) PLAN FOR NEXT VISIT: neutral core stabilization, nerve glides SUBJECTIVE: . Pt reports bilateral buttock pain with radicular symptoms down to knee on left side. Pain: PROMIS Scales Higher is Better 01/06/2023 12/14/2022 11/10/2022 Phys Func - Score 39 (moderate dysfunction) 38 (moderate dysfunction) 43 (mild dysfunction) Phys Func - Percentile 14 % 12 % 24 % Self-Eff Symptom - Score - 41 (Average) 42 (Average) Self-Eff Symptom - Percentile - 18 % 21 % T-scores: mean of general population = 50. 5 points is clinically meaningfully difference Percentiles provide an indication of how the patient's score ranks in relation to the general population. Higher percentile rankings indicate better function/quality of life. 50th percentile is the average of the general population and indicates half of respondents had a worse score. OBJECTIVE MEASURES WITH LEVEL OF FUNCTION: Repeated flexion=worse Repeated extension=worse TREATMENT: Therapeutic Exercise: 1: prone press up=worse 2: pt education regarding home program and current plan Skilled Intervention: Patient was educated in proper exercise technique and purpose for exercises. Skilled judgment was provided in selection of appropriate interventions. Manual Therapy: 1: supine knee to chest oscillation into flexion=worse 2: supine right sided sciatic nerve glides. 3: double knee to chest oscillation=worse 4: dry needle: see note Skilled Intervention: Manual skills to improve joint mobility, ROM, and decrease pain. Utilized anatomy knowledge of the therapist, and assessment of patient's response to intervention. Dry needling to following Trigger points: bilateral lumbar paraspinals, right superior glute, piriformis Needle length: 50mm 2.0 in and 60mm 2.5 in. Cordova used 10, needles removed 10. Dry needling technique used: Pistoning and Deep needling. Patient education on purpose, precautions, safety, risks, and other treatment options regarding dry needling. Verbal consent received. Neuromuscular Re-Education: 1: seated on t-ball pallof press gr 20x2 2: seated on t-ball march 10x2 Skilled Intervention: Education in proprioceptive/kinesthetic awareness during dynamic activities. Billing Therapeutic Exercise Treatment Minutes: 15 Manual TherapyTreatment Minutes: 25 Neuromuscular Re-Education Treatment Minutes: 15 Total Treatment Time Minutes (timed/untimed): 55 GEORGE TUCKER PT, [facility]06-28-2023 History of Present illness Narrative* George Tucker PT, DPT - 02/16/2023 11:03 AM EDT Episode Visit Count: 3 Therapist That Will Accept/Oversee The Plan Of Care: Garrett Start of Care Date: 01/10/23 Onset Date: 01/11/16 Plan of Care Certification Date: 01/10/23 Next Certification Due Date: 04/04/23 Patient Identified by Name and Date of : Yes REHABILITATION AND SPORTS THERAPY PHYSICAL THERAPY PROGRESS REPORT PLAN OF CARE UPDATE: Assessment: Chiara Croft demonstrates minimal improvement in standing and walking. She has progressed towardgoals. Patient continues to present with impairments in ADL's, range of motion, strength, and symptom management that interfere with . Current prognosis is fair d/t chronicity of condition. Pt does well with neutral core position and nerve glides, dry needling completed for muscle guarding and to reduce neural tension along soft tissue peripherally. She will benefit from continued skilled therapyservices to meet the updated goals for this plan of care as noted below. Goals for Episode of Care: created on 01/10/23 through 03/21/23 Independent in home exercises. Patient will decrease pain to 2/10 with functional activities to allow patient to improve ambulation and standing tolerance for ADLs. Restore pain-free lumbar ROM to minimal limitation in standing flexion to allow for ADLs Stand / Walk 30 minutes without pain/symptoms. Knowledgeable regarding prophylaxis. Patient will increase strength of bilateral hips to 5/5 to allow for improve ability to complete ADLs. Patient Goals: aleeviate pain and get stronger Planned Interventions, Frequency, and Duration: 1x/week, 8 weeks Total Number of Visits Planned: 8 Patient to be seen for Therapeutic exercise (39926), Neuromuscular re-education (31906), Manual therapy (21741), Therapeutic activities (07609), Self-shelter management (71933), Gait Training (95011), Patient/Family/Caregiver Education, Body Mechanics Training, Functional training, General Conditioning, E-Stim Unattended ([id number]) PLAN FOR NEXT VISIT: neutral core stabilization, nerve glides SUBJECTIVE: . Pt reports bilateral buttock pain with radicular symptoms down to knee on left side. Pain: PROMIS Scales Higher is Better 01/06/2023 12/14/2022 11/10/2022 Phys Func - Score 39 (moderate dysfunction) 38 (moderate dysfunction) 43 (mild dysfunction) Phys Func - Percentile 14 % 12 % 24 % Self-Eff Symptom - Score - 41 (Average) 42 (Average) Self-Eff Symptom - Percentile - 18 % 21 % T-scores: mean of general population = 50. 5 points is clinically meaningfully difference Percentiles provide an indication of how the patient's score ranks in relation to the general population. Higher percentile rankings indicate better function/quality of life. 50th percentile is the average of the general population and indicates half of respondents had a worse score. OBJECTIVE MEASURES WITH LEVEL OF FUNCTION: Repeated flexion=worse Repeated extension=worse TREATMENT: Therapeutic Exercise: 1: prone press up=worse 2: pt education regarding home program and current plan Skilled Intervention: Patient was educated in proper exercise technique and purpose for exercises. Skilled judgment was provided in selection of appropriate interventions. Manual Therapy: 1: supine knee to chest oscillation into flexion=worse 2: supine right sided sciatic nerve glides. 3: double knee to chest oscillation=worse 4: dry needle: see note Skilled Intervention: Manual skills to improve joint mobility, ROM, and decrease pain. Utilized anatomy knowledge of the therapist, and assessment of patient's response to intervention. Dry needling to following Trigger points: bilateral lumbar paraspinals, right superior glute, piriformis Needle length: 50mm 2.0 in and 60mm 2.5 in. Cordova used 10, needles removed 10. Dry needling technique used: Pistoning and Deep needling. Patient education on purpose, precautions, safety, risks, and other treatment options regarding dry needling. Verbal consent received. Neuromuscular Re-Education: 1: seated on t-ball pallof press gr 20x2 2: seated on t-ball october 10x2 Skilled Intervention: Education in proprioceptive/kinesthetic awareness during dynamic activities. Billing Therapeutic Exercise Treatment Minutes: 15 Manual TherapyTreatment Minutes: 25 Neuromuscular Re-Education Treatment Minutes: 15 Total Treatment Time Minutes (timed/untimed): 55 GEORGE TUCKER PT, DPT documented in this encounterD[facility]06-27-[facility] History of Present illness Narrative* Angie Aguirre APRN.WEIGHT ANALYST - 02/15/2023 11:30 AM EDT Chief Complaint Patient presents with: Telemedicine I have communicated my name and active licensure. The patient's identity and physical location wereverified at the time of this visit. Either the patient or their legal field representative/health education has been informed of the risks and benefits of -- and alternatives to -- treatment through a remote evaluation andconsents to proceed with the evaluation remotely. Video was used for evaluation of this patient. Patient is aware of limitations of performing the visit without a face to face visit in the office setting and agrees. Patient agrees to the visit: Yes Patient Location: [facility] Chiara Croft is a 77 year old female who is contacted today for a virtual visit This is an established patient of Angie Aguirre APRN.WEIGHT ANALYST Reports: feels awful. + fatigue. Not rested when she gets up. She was getting cramping in the left arm. Now she is getting cramps in the legs, torso, left arm, hand. Will cramp up into a claw. Cramps are painful. Also notices some eye twitching. Started about three weeks ago. Cramps in the legs will wake her up at night. Refers this will happen several times daily. Refers that if she moves her hand a certain direction, will trigger in her arm. She is drinking 8 glasses of water daily. Past medical history, appointments, medications, allergies reviewed 02/15/2023 Previous Medical History PAST MEDICAL HISTORY Diagnosis Date Abdominal pain Degenerative disc disease Depression Disorder of bone and cartilage, unspecified HTN (hypertension) Hypothyroid Intrinsic asthma Mixed hyperlipidemia Hyperlipidemia Osteoarthrosis, unspecified whether generalized or localized, other specified sites PMH - PAST MEDICAL HISTORY OF CVA with weakness left side PMH - PAST MEDICAL HISTORY OF 2000 left cervical radiculopathy PMH - PAST MEDICAL HISTORY OF 2003 right rib fracture PMH - PAST MEDICAL HISTORY OF 2005 right shoulder impingement syndrome Spinal stenosis Stroke (HCC) 2005 Unspecified hypothyroidism Previous Surgical History PAST SURGICAL HISTORY Procedure Laterality Date APPENDECTOMY 1960 BACK SURGERY HX 2017 L3-5 Decompression and Fusion CATARACT EXTRACTION HX Bilateral COLONOSCOPY N/A 09/15/2016 MAC EGD W/O [facility] SPEC VARICIES INJ 09/17/2016 EGD W/O [facility] SPEC VARICIES INJ 11/15/2022 EPIDURAL SITE SPECIFY lumbar spine PAST SURGICAL HISTORY OF 1976 thyroidectomy for toxic goiter TONSILLECTOMY PRIMARY/SECONDARY <AGE 12 Tonsillectomy Family History FAMILY HISTORY Problem Relation Age of Onset Cerebral Embolism Mother Osteoporosis Mother other (spinal stenosis) Mother other (depression) Mother other (cva) Mother other (depression) Father other (tramatic brain syndrome) Father s/p MVA other (aplastic thyroid tumor) Sister Depression Brother Stroke Maternal Grandfather Colon Cancer No Family History Patient Allergies ALLERGIES Allergen Reactions Cymbalta [Duloxetin* Other: See Comments Tremor Fosamax [Alendronat* Intolerance Reflux Septra [Sulfamethox* Hives swelling and SOB Sulfamethoxazole Hives Tramadol Other: See Comments Tremor Trimethoprim Hives Bupropion Other: See Comments Current Medications Current Outpatient Medications on File Prior to Visit Medication Sig zinc sulfate 220 mg (50 mg zinc) capsule famotidine (PEPCID) 40 mg tablet Take 1 tablet by mouth once daily as needed. iv contrast (will be provided with radiology test) MRI LSP Inject, intravenously, once for 1 dose. No IV access, insert saline lock prior to the beginning of sedation, infusion, injection of imaging exam. Discontinue saline lock post exam. If Pt. has a central line or IVAD, may access for administration according to line specific nursing protocol. Once exam is complete flush line and de-access according to line specific nursing protocol in the MR contrast administration guidelines link. (Patient not taking: Reported on 01/05/2023) levothyroxine (LEVOXYL) 88 mcg tablet Take 1 tablet by mouth once daily. Take on empty stomach. ForThyroid fluticasone-salmeterol (ADVAIR, WIXELA) 250-50 mcg/dose inhaler lansoprazole (PREVACID) 15 mg capsule Take 1 capsule by mouth once daily. losartan (COZAAR) 50 mg tablet TAKE 1 & 1/2 (ONE & ONE-HALF) TABLETS BY MOUTH ONCE DAILY rosuvastatin (CRESTOR) 5 mg tablet Take 1 tablet by mouth once daily. clopidogrel (PLAVIX) 75 mg tablet Take 1 tablet by mouth once daily. [facility] ID: [id number] [email or web address] albuterol HFA (VENTOLIN HFA) 90 mcg/actuation inhaler Inhale 2 Puffs as instructed every 4 hours asneeded for wheezing/shortness of breath. lidocaine (SALONPAS) 4 % patch Apply as directed once daily. denosumab (PROLIA) 60 mg/mL syrg Inject 60 mg subcutaneously one time only. Cholecalciferol, Vitamin D3, 25 mcg (1,000 unit) cap Vitamin D acetaminophen (TYLENOL) 500 mg tablet Take 500 mg by mouth every 8 hours as needed. CALCIUM CARBONATE (CALCIUM 500 ORAL) Take by mouth. No current facility-administered medications on file prior to visit. Social History Social History Tobacco Use Smoking status: Former Packs/day: 0.50 Years: 8.00 Pack years: 4.00 Types: Cigarettes Smokeless tobacco: Never Tobacco comments: quit in 1969 Vaping Use Vaping Use: Never used Substance Use Topics Alcohol use: Yes Comment: 1-2 times per week Drug use: No EXAM: There were no vitals taken for this visit. Limited exam as visit was completed over the virtual platform. Virtual visit completed using video, limited exam completed. Patient sounds or appears ill: No General Appearance: Well appearing, alert, in no acute distress, well-hydrated, well nourished. Skin: Skin color normal Head: Normocephalic. No facial swelling or redness. EENT: Eyes nonreddened. No discharge. External ears nonreddened and no swelling. Neck: No mass or lesions. No swelling. FROM Patient is unable to speak in complete sentences: No Patient has labored breathing: No. Patient is audibly coughing: No Psych: Attitude - cooperative, easily engaged in conversation Affect - Euthymic, normal mood Mental status: Alert. Speech is clear and fluent with good repetition, comprehension Appearance - Normal hygiene and grooming appropriate Coordination: No abnormal or extraneous movements. Gait/Stance: Posture is normal. Health Maintenance List DTAP,TDAP,TD(2 - Td or Tdap) due on 03/31/2019 ADVANCE DIRECTIVE DISCUSSION Never done DEPRESSION ASSESSMENT Never done INFLUENZA(Season Ended) due on 04/22/2023 ANNUAL PCP TEAM CHRONIC DISEASE VISIT due on 11/23/2023 BP CONTROLLED (<130/80) due on 01/06/2024 DIABETES SCREEN due on 01/27/2026 BONE DENSITY Completed SPIROMETRY Completed HEPATITIS C SCREENING Completed SHINGRIX VACCINE Completed COVID-19 VACCINE Completed PNEUMOCOCCAL: 65+ Completed Data reviewed Last 5 Encounter BP Readings: Date: BP: 01/05/2023 126/72 12/30/2022 110/72 12/29/2022 120/67 12/01/2022 130/59 11/22/2022 122/74 BMI Readings from Last 5 Encounters: 01/05/23 : 24.95 kg/m 12/30/22 : 24.62 kg/m 12/29/22 : 25.38 kg/m 11/23/22 : 25.33 kg/m 11/15/22 : 24.27 kg/m Last 5 Encounter Wt Readings: Date: Wt: 01/05/2023 63.9 kg (140 lb 14 oz) 12/30/2022 63 kg (139 lb) 12/29/2022 65 kg (143 lb 4.8 oz) 11/23/2022 64.9 kg (143 lb) 11/15/2022 62.1 kg (137 lb) Medication and allergy list reviewed, reconciled and updated 02/15/2023 ASSESSMENT/PLAN: 1. Muscle cramps - ICD9: 729.82, ICD10: R25.2 (primary diagnosis) Pt with muscle cramps. Has been having some mild hyponatremia. R/o worsening. Also r/o hypocalcemia and parathyroid disease. - BASIC METABOLIC PNL - CK CREATINE KINASE - MAGNESIUM BLD - VITAMIN D 25 HYDROXY - PTH INTACT BLD - CALCIUM IONIZED BLOOD 2. Post-surgical hypothyroidism - ICD9: 244.0, ICD10: E89.0 Levothyroxine was recently decreased in the last couple of months. Recheck level. - TSH BLD - T4 FREE/FREE THYROX 3. Hyponatremia - ICD9: 276.1, ICD10: E87.1 Recheck levels. - BASIC METABOLIC PNL - CORTISOL BLD 4. Disorder of bone, unspecified - ICD9: 733.90, ICD10: M89.9 - VITAMIN D 25 HYDROXY Discussed treatment plan and patient voices understanding. Patient's questions answered appropriately. Medications and potential side effects were discussed and patient voices understanding. Return to the office as scheduled or as needed for worsening/no improvement. Angie Aguirre APRN.WEIGHT ANALYST documented in this encounterD[facility]2023 NoteHNO ID: [id number] Author: Aba Mora PT Service: ? Author Type: Physical Therapist Type: Progress Notes Filed: 02/08/2023 7:25 AM Note Text: Episode Visit Count: 2 Therapist That Will Accept/Oversee The Plan Of Care: Garrett Start of Care Date: 01/10/23 Onset Date: 01/11/16 Plan of Care Certification Date: 01/10/23 Next Certification Due Date: 04/04/23 REHABILITATION AND SPORTS THERAPY PHYSICAL THERAPY TREATMENT NOTE ASSESSMENT: Chiara Croft tolerated the session with decreased symptoms. She demonstrated improvements in pain post ryan pose. Seemed to have some initial irritation with PPU, but no worse, however, PPT and ryan pose lessened walking pain immediately. The patient will continue to benefit from ongoing skilled physical therapy to progress toward set goals. PLAN FOR NEXT VISIT: Assess tolerance to flexion based movements/facet opening strategies. Progress core stabilization as tolerated. SUBJECTIVE: Pt notes that she feels about 40% better. Notes stiff today and sore. Flew in from [place], got in around 2am and is tired. Pain: OBJECTIVE MEASURES WITH LEVEL OF FUNCTION: Lumbar flexion - endrange pain Lumbar extension - max limited, endrange pain Right SB - endrange pain Left SB - no change Seated rotation Left: causes mid lumbar discomfort on right Right: causes lower lumbar/buttock pain on right. TREATMENT: Therapeutic Exercise: 1: PPU 2 x 10 - no effect 2: PPT 20x 3: PPT into ryan pose 20 x 3 4: Pt Ed: reviewed HEP - modified ryan pose Skilled Intervention: Skilled judgment was provided in selection of appropriate interventions. Billing Therapeutic Exercise Treatment Minutes: 40 Total Treatment Time Minutes (timed/untimed): 40 [facility]23 NoteHNO ID: [id number] Author: George Tucker PT, DPT Service: ? Author Type: Physical Therapist Type: Progress Notes Filed: 01/10/2023 12:18 PM Note Text: Episode Visit Count: 1 Therapist That Will Accept/Oversee The Plan Of Care: Garrett Start of Care Date: 01/10/23 Onset Date: 01/11/16 Plan of Care Certification Date: 01/10/23 Next Certification Due Date: 04/04/23 Patient Identified by Name and Date of : Yes REHABILITATION AND SPORTS THERAPY PHYSICAL THERAPY EVALUATION PLAN OF CARE: Assessment: Chiara Croft presents with diagnosis of lubosacral radiculitis that interferes with twisting, walking in the community, walking . She presents with impairments in ADL's, coordination, independence in exercise, overall function, posture, range of motion, strength, symptom management, and tissue tenderness. PROMIS? (Patient-Reported Outcomes Measurement Information System) scores were reviewed and physical function domain identified as a rehabilitation concern. Prognosis for therapy is Good due to: current objective clinical presentation . Pt demonstrates difficulty with bending and standing, sitting too long. She will benefit from skilled therapy services to meet the goals established for this plan of care as noted below. Goals for Episode of Care: created on 01/10/23 through 03/21/23 Independent in home exercises. Patient will decrease pain to 2/10 with functional activities to allow patient to improve ambulation and standing tolerance for ADLs. Restore pain-free lumbar ROM to minimal limitation in standing flexion to allow for ADLs Stand / Walk 30 minutes without pain/symptoms. Knowledgeable regarding prophylaxis. Patient will increase strength of bilateral hips to 5/5 to allow for improve ability to complete ADLs. Patient Goals: aleeviate pain and get stronger Planned Interventions, Frequency, and Duration: Current Frequency: 1x/week Duration: 8 weeks Total Number of Visits Planned: 8 Planned Treatment Interventions: Therapeutic exercise (79899), Neuromuscular re-education (47868), Manual therapy (46131), Therapeutic activities (08279), Self-shelter management (46280), Gait Training (07296), Patient/Family/Caregiver Education, Body Mechanics Training, Functional training, General Conditioning, E-Stim Unattended (05168) PLAN FOR NEXT VISIT: core stabilization, nerve glides Patient demonstrates good understanding of plan of care and treatment. The above goals and plan of care were discussed and agreed upon by patient/family. SUBJECTIVE: Chiara Croft is a 77 year old female seen today for low back pain. She had a laminectomy and fusion in 2016 and 3 months later developed pain that never really went away. She reports that the injections would help for short periods of time. About 3 months. She had physical therapy earlier this year. She developed pain in her left hip that went down her left leg. She reports that the physical therapy did help with radicular symptoms. She saw Dr. Alcantar recently for her back pain. She is also in pain management as well. Currently she has pain in right buttock. She had an ablation recently which didn't really help that much. Fusion appears to have not fused well at L4, L5. She reports a deep aching nagging apin on right buttock to low back. Patient Goals: aleeviate pain and get stronger Functional Limitations: twisting, walking in the community, walking Relevant History Employment: Retired Recreation / Current Exercise: bridge, book club, walking (stopped walking last April d/t pain) Intake Information: Prescription present Previous Treatment: None Falls Interview: No positive findings with falls interview Spine History Pain is Worse Always: Standing, Walking Pain is Better Always: Sitting Pain: Pain Pain Level: 5 Pain Location: Low Back/Lumbar Spine - Right Description: Aching, Stabbing, Sharp Detailed Pain Score: Yes Worst Pain Level: 7 PROMIS Scales Higher is Better 01/06/2023 12/14/2022 11/10/2022 Phys Func - Score 39 (moderate dysfunction) 38 (moderate dysfunction) 43 (mild dysfunction) Phys Func - Percentile 14 % 12 % 24 % Self-Eff Symptom - Score - 41 (Average) 42 (Average) Self-Eff Symptom - Percentile - 18 % 21 % T-scores: mean of general population = 50. 5 points is clinically meaningfully difference Percentiles provide an indication of how the patient's score ranks in relation to the general population. Higher percentile rankings indicate better function/quality of life. 50th percentile is the average of the general population and indicates half of respondents had a worse score. OBJECTIVE MEASURES WITH LEVEL OF FUNCTION: Spine Observations R Lumbar Spine Palpation Tenderness: PSIS (posterior superior iliac spine), Piriformis (reproduces symptoms) Lumbar Spine AROM Lumbar Flexion: Major limitation (painful right side) Lumbar Extension: Major limitation Lumbar R Dave (more content not included)...[facility] 01-05-2023 NoteHNO ID: [id number] Author: Lars Alcantar MD Service: ? Author Type: Physician Type: Progress Notes Filed: 01/05/2023 8:55 AM Note Text: Lars Alcantar M.D. ORTHOPEDIC SPINE FOLLOW UP NOTE Date of visit: January 05, 2023 Patient Name: Ms.Carol Croft Date of : 1945 Current Age: [age] year old Sex: female PCP: Angie Aguirre APRN.WEIGHT ANALYST Chief Complaint:Patient presents with: Established Patient HPI Ms.Carol Croft has a past medical history of asthma, HTN, HLD, osteoarthrosis, osteoporosis (takes Prolia) and CVA with left sided weakness. Patient was last seen in the office on 12/29/2022 and reported low back pain with radiation to bilateral gluteal region, right > left, with an achy sensation to mid bilateral anterior thighs. Pain worsened with twisting, walking and any activity. Pain in her right gluteal region was most bothersome. She had participated in multiple sessions of physical therapy and follows with [facility], scheduled for right piriformis injection on 01/04/2023. Additionally, Dr. Casillas had discussed placing a spinal cord stimulator. I recommended for patient to follow-up after obtaining MRI of the lumbar spine with and without contrast to characterize possible nerve root compression and CT of the lumbar spine to evaluate her previous fusion for possible pseudoarthrosis at L4-L5, prompting visit today. She reports no relief from right piriformis injection on 01/04/2023 with Pain Management. Her symptoms are consistent with last office visit. Pain in her right gluteal region is most bothersome. Full symptomology and conservative treatment outlined below. She presents to the office for image review, evaluation and plan of care. Pain: Low back Radiation: Bilateral gluteal region, right >left, Achy feeling to bilateral anterior thighs Duration: Chronic Paresthesia: Right great toe, 2nd and 3rd digit, plantar aspect of right foot Weakness: Bilateral lower extremities Dexterity: Denies Imbalance: Denies B/B dysfcn: Denies PREVIOUS CONSERVATIVE TREATMENT: 1) Medication: Tylenol, Salonpas, Robaxin 2) Physical therapy: x12 sessions from August 2022- present 3) Pain Management: follows with [facility] 4) Injections: -Bilateral L5-S1 lumbar RFA on 09/28/2022-95% improvement for 6 weeks -Right piriformis injection on 01/04/2023 with Pain Management PREVIOUS SPINE SURGERY: -L3-L5 decompression and posterior fusion in 2017 Surgical Risk Factors: Smoking status: Former Anticoagulants/antiplatelets: Plavix Diabetic: No BMI: 24.62 Osteoporosis- on Prolia for 6 years, next 03/09/2023 PAIN EVALUATION 01/03/2023 1926 Pain Level: 6 Pain Location: Back-Lower Description: Aching;Dull;Sharp;Shooting;Stabbing Duration Amount of Time: 24 Duration Units: Months Frequency: Continuous Intervention/Comfort measure: Medication;Reposition;Distractions;Heat;Pillow support ACTIVE PROBLEM LIST Mild Persistent Asthma Without Complication Stroke (Hcc) Gerd (Gastroesophageal Reflux Disease) Platelet Inhibition Due to Plavix Hyperthyroidism Postlaminectomy Syndrome Chronic Bilateral Low Back Pain Without Sciatica Chronic Si Joint Pain Primary Hypertension Hyperlipidemia Post-Surgical Hypothyroidism Other cerebral infarction (HCC) Generalized Abdominal Pain Special Screening Examination for Viral Disease Lumbar Spondylosis Lumbosacral Radiculitis Hoarse Dizziness Spinal Stenosis of Lumbar Region With Neurogenic Claudication Piriformis Syndrome of Right Side PAST MEDICAL HISTORY Diagnosis Date Abdominal pain Degenerative disc disease Depression Disorder of bone and cartilage, unspecified HTN (hypertension) Hypothyroid Intrinsic asthma Mixed hyperlipidemia Hyperlipidemia Osteoarthrosis, unspecified whether generalized or localized, other specified sites PMH - PAST MEDICAL HISTORY OF CVA with weakness left side PMH - PAST MEDICAL HISTORY OF 2001 left cervical radiculopathy PMH - PAST MEDICAL HISTORY OF 2003 right rib fracture PMH - PAST MEDICAL HISTORY OF 2005 right shoulder impingement syndrome Spinal stenosis Stroke (HCC) 2006 Unspecified hypothyroidism PAST SURGICAL HISTORY Procedure Laterality Date APPENDECTOMY 1960 BACK SURGERY HX 2017 L3-5 Decompression and Fusion CATARACT EXTRACTION HX Bilateral COLONOSCOPY N/A 09/15/2016 MAC EGD W/O BRSH SPEC VARICIES INJ 09/17/2016 EGD W/O BRSH SPEC VARICIES INJ 11/15/2022 EPIDURAL SITE SPECIFY lumbar spine PAST SURGICAL HISTORY OF 1976 thyroidectomy for toxic goiter TONSILLECTOMY PRIMARY/SECONDARY Tonsillectomy FAMILY HISTORY Problem Relation Age of Onset Cerebral Embolism Mother Osteoporosis Mother other (spinal stenosis) Mother other (depression) Mother other (cva) Mother other (depression) Father other (tramatic brain syndrome) Father s/p MVA other (aplastic thyroid tumor) Siste (more content not included)...[facility]05-15-[facility]23 Miscellaneous Notes* Telephone Encounter - Zheng Tse LPN - 01/03/2023 5:48 PM EDT Faxed. Zheng Tse LPN * Telephone Encounter - Angie Aguirre APRN.CNP - 01/03/2023 5:31 PM EDT Form completed. Please return, as requested. Angie Aguirre APRN.CNP * Telephone Encounter - Zheng Tse LPN - 01/03/2023 1:27 PM EDT Type of form: Clearance Request Form received via fax When form is completed, Fax form to [phone] Form has been forwarded to Nurse Practictioner: SAURABH Brand LPN documented in this encounterD[facility]05-[facility] Instructions* Patient Instructions* Dee Resendez PA-C - 01/03/2023 10:10 AM EDT Images from the original note were not included. Bowel Preparation Instructions for: Miralax-Gatorade Preparations IF YOU DO NOT FOLLOW THESE DIRECTIONS, YOUR COLONOSCOPY WILL BE CANCELLED. Denise Instructions: Your bowel must be empty so that your doctor can clearly view your colon. Follow all of the instructions in this handout EXACTLY as they are written. Do NOT eat any solid food the ENTIRE day before your colonoscopy. Buy your bowel preparation at least 5 days before your colonoscopy. Four (4) Dulcolax laxative tablets containing 5mg of bisacodyl each (NOT Dulcolax stool softener) One (1) 8.3oz. bottle Miralax (238 grams) or generic equivalent 2 x 32oz. Bottles of Gatorade (NOT RED) Diabetic Patients: Use G2 (Gatorade 2) TRANSPORTATION on the Day of Your Exam A responsible adult MUST be present with you at Check In prior to your colonoscopy and REMAIN in the endoscopy area until you are discharged. You are NOT ALLOWED to drive, take a taxi or bus, or leave the Endoscopy Center ALONE. If you do not have a responsible haulpak driver (family member or friend) withyou to take you home, your exam cannot be done with sedation and will be cancelled. Please bring a list of all of your current medications, including any Dvjr-[id number] medications with you. Medications If you take insulin, diabetic medications or blood thinners such as Coumadin (warfarin), Plavix (clopidogrel), Ticlid (ticlopidine hydrochloride), Agrylin (anagrelide), Xarelto (Rivaroxaban), Pradaxa(Dabigatran), Eliquis (Apixaban), and Effient (Prasugrel). You MUST call the doctors who orders those medicines for instructions on altering the dosage before your colonoscopy. All other medications should be taken the day of the exam with a sip of water including ASPIRIN. Five (5) Days Before Your Colonoscopy Do NOT take medicines that stop diarrhea - such as Imodium, Kaopectate, or Pepto Bismol. Do NOT take fiber supplements - such as Metamucil, Citrucel, or Perdiem. Do NOT take products that contain iron - such as multi-vitamins (the label lists what is in the products). Three (3) Days Before Your Colonoscopy Do NOT eat high-fiber foods - such as popcorn, beans, seeds (flax, sunflower, quinoa), multigrain bread, nuts, salad/vegetables, or fresh and dried fruit. 1 Bowel Preparation Instructions for: Miralax-Gatorade Preparations One (1) Day Before Your Colonoscopy Only drink clear liquids the ENTIRE DAY before your colonoscopy. Do NOT eat any solid foods. Drink at least 8 ounces of clear liquids every hour after waking up. The clear liquids you can drink include: Clear Liquid (NO RED LIQUIDS) DO NOT DRINK Gatorade, Pedialyte or Powerade Clear broth or bouillon Coffee or tea (no milk or non-dairy creamer) Carbonated and non-carbonated soft drinks Juan-Aid or other fruit flavored drinks Strained fruit juices (no pulp) Jell-O, popsicles, hard candy Water Alcohol Milk or non-dairy creamers Noodles or vegetables in soup Juice with pulp Liquid you cannot see through Do not use tobacco/vaping products Mix 1/2 of Miralax bottle (119 grams) in each 32 ounces of Gatorade bottle until dissolved. Keep cool in the refrigerator. DO NOT ADD ICE. The bowel preparation solution will be consumed in two parts. Part 1 5:00 PM - Evening before your colonoscopy Take 4 Dulcolax tablets. 6 PM - Evening before your colonoscopy Drink 32 oz. of the mixed solution. Drink an 8 oz. glass of bowel preparation every 15 minutes for a total of 4 glasses. Fifteen (15) minutes later, drink an 8 oz. glass of of clear liquids every 15 minutes for a total of 2 glasses. You may continue to drink clear liquids till midnight. Part 2 On the day of your colonoscopy you may drink clear liquids up to (three) 3 hours prior to procedure. 4 1/2 hours before your colonoscopy Take another 32 oz. bottle of mixed solution. Drink an 8 oz. glass of bowel prep every 15 minutes for a total of 4 glasses. Fifteen (15) minutes later, drink an 8 oz. glass of clear liquids every 15 minutes for a total of 2glasses. You may continue to drink clear liquids up to (three) 3 hours before your exam. 2 07/2019 documented in this encounterD[facility]05-15-2023 Miscellaneous Notes* Telephone Encounter - Dee Resendez PA-C - 01/03/2023 10:06 AM EDT Covering for Delia. Received message from Carlita De Souza, Neurosurgery HOUSE SUPERINTENDENT. MRI showing questionable focus in ascending colon; cannot rule out mass lesion. Called patient. Notes some improvement withBenefiber recently. Still with a lot of bloating issues and not feeling well after eating. Discussed options. Patient would like to proceed with Colonoscopy for further evaluation. Order placed for [place]. She is on Plavix. Please reach out to patient to schedule, thank you! documented in this encounterDiley [facility] Center05-15-2023 Miscellaneous Notes* Telephone Encounter - Carlita De Souza APRN.CNP - 01/03/2023 9:31 AM EDT Contacted patient and discussed incidental finding noted on MRI of lumbar spine. Patient is currently following with gastroenterology, last office visit on 12/30/2022 with Delia Mckeon PA-C, recommended patient contact gastroenterology office for further evaluation and plan of care per their recommendations. Patient verbalized understanding was appreciative call. In regards to the lumbar spine, patient is to keep scheduled follow-up appointment with Dr. Alcantar on 01/05/2023 further review imaging and plan of care. MRI lumbar spine completed on 12/31/2022: IMPRESSION: Postoperative and spondylotic changes, as detailed. No abnormal enhancement. Apparent confluent focus within the proximal ascending colon on the localizer images which may reflect bowel contents; mass lesion not excluded. Recommend gastroenterology consult for further evaluation. Anatomic Lumbar Variant: None. L4-5 is considered the level of the iliac crest and assume there are 5 lumbar-type vertebrae. Carlita De Souza APRN-SAURABH [facility] documented in this encounterDiley [facility] Center05-12-2023 History of Present illness Narrative* Sasha Stewart RT(R) - 12/31/2022 9:20 AM EDT Radiology Service Progress Note DATE OF SERVICE: December 31, 2022 TIME: 9:09 AM PATIENT IDENTITY VERIFICATION COMPLETED USING TWO (2) STANDARD IDENTIFIERS: Name and Date of confirmed by patient verbally. FALL SCREENING: Has the patient had 2 falls in the last year or 1 fall with injury or currently using an Ambulatory Assistive Device (Walker, Cane, Wheelchair, Crutches, etc.)? No PATIENT GENDER DATA: Female. status: : No status: NO. PATIENT RELEVANT IMPLANT DATA REVIEWED: Yes ALLERGIES: Reviewed and unchanged CONTRAST ALLERGY: NO. EXAM: MRI - CONTRAST TYPE: GROUP II PERIPHERAL IV DATA: Ambulatory: A peripheral IV was started in the Right antecubital site with a Angio cath: 22 gauge. RADIOLOGY DEPARTMENT: MR; Exam(s) Completed: Spine: Lumbar spine SIGNATURE: RT Tamika(R) PATIENT NAME: Chiara Croft DATE: December 31, 2022 TIME: 9:09 AM documented in this encounterDiley [facility] Center05-12-2023 History of Present illness Narrative* Charlene Wang RT(R) - 12/31/2022 8:40 AM EDT Radiology Service Progress Note PATIENT NAME: Chiara Croft DATE OF SERVICE: December 31, 2022 TIME: 4:19 PM PATIENT IDENTITY VERIFICATION COMPLETED USING TWO (2) IDENTIFIERS: Name and Date of confirmedby patient verbally. FALL SCREENING: Has the patient had 2 falls in the last year or 1 fall with injury or currently using an Ambulatory Assistive Device (Walker, Cane, Wheelchair, Crutches, etc.)? No PATIENT GENDER DATA: Female. status: : No status: NO. PATIENT RELEVANT IMPLANT DATA REVIEWED: Yes RADIOLOGY DEPARTMENT: CT; Exam(s) Completed: Spine PERIPHERAL IV DATA: Not applicable SIGNED BY: AYLA Alfredo) December 31, 2022 4:19 PM documented in this encounterDiley [facility] Center05-11-2023 Instructions* Patient Instructions* Delia Mckeon PA-C - 12/30/2022 9:15 AM EDT - Drink around 64 oz water daily - Benefiber daily: 2 teaspoons added to 8 ounces of water up to 3 times daily. - If no improvement with Benefiber, Start Miralax daily to induce bowel movement Miralax generally will help produce bowel movement in 1-3 days Fill to top of white section in cap which is marked to indicate the correct dose (17 g) Stir and dissolve in any 8 ounces of non-carbonated beverage (cold, hot or room temperature) then drink If diarrhea occurs, reduce usage to every other day documented in this encounterDiley [facility] Center05-11-2023 History of Present illness Narrative* Delia Mckeon PA-C - 12/30/2022 8:50 AM EDT CHIEF COMPLAINT: Patient presents with: Procedure Follow Up: EGD 11/15/22 Labs 11/23/22. Having persistent nausea HPI Chiara Croft is a 77 year old female here today for Procedure Follow Up (EGD 11/15/22 Labs 11/23/22. Having persistent nausea). Surg hx positive for thyroidectomy 1976. Seen last for chronic hoarseness/cough. Starting allergy shots today. Having persistent nausea, decreasing appetite, early satietysince 09/2022. Notices when her lower back pain flares up, she will experience nausea. Bms are daily, regular to constipated consistency, issues with tenesmus/decreased stool caliber, no blood/black coloring. Denies abd pain, weight loss. EGD 10/2022 Impression: - Normal esophagus. - Normal stomach. Biopsied. - A few gastric polyps. Biopsied. - Normal examined duodenum. FINAL DIAGNOSIS A. Stomach, antrum, biopsy: - Gastric oxyntic type mucosa with no pathologic diagnostic abnormality; see comment. B. Stomach, polyp, biopsy: - Gastric oxyntic type mucosa with ectatic glands suggestive of fundic gland polyp; negative for dysplasia. EGD/Colon 2017 5 mm colon polyp, CONVERTED FINAL DIAGNOSIS 1. Stomach, antrum, biopsy (A) - Gastric antral body-type mucosa with no pathologic diagnostic abnormality; see comment. 2. Colon, rectal polyp, biopsy (B) - Colonic mucosa with hyperplastic and trauma/prolapse changes; negative for dysplasia. OV 07/2022 Chiara Croft is a 77 year old female who presents for Persistent hoarseness and cough. Surg hx positive for thyroidectomy 1976. Admits to chronic hoarseness/cough for several years. Went to ENT four years ago and told she had silent reflux. Has been on Prevacid 15 mg daily for years. Recently saw ENT again in the past year and told to stop Prevacid as they felt it was not helping. Pt notes that shortly after stopping PPI, sx significantly worsened. [facility] has been managing her asthma and includes this has been under good control recently, but still struggling with hoarseness. Bms are usually regular, in the past year has had more issues with constipation, no blood. Denies regular NSAIDs, abd pain, unintentional weight loss, dysphagia. EGD/Colon 2017 5 mm colon polyp, CONVERTED FINAL DIAGNOSIS 1. Stomach, antrum, biopsy (A) - Gastric antral body-type mucosa with no pathologic diagnostic abnormality; see comment. 2. Colon, rectal polyp, biopsy (B) - Colonic mucosa with hyperplastic and trauma/prolapse changes; negative for dysplasia. Current Outpatient Medications Medication Sig zinc sulfate 220 mg (50 mg zinc) capsule levothyroxine (LEVOXYL) 88 mcg tablet Take 1 tablet by mouth once daily. Take on empty stomach. ForThyroid fluticasone-salmeterol (ADVAIR, WIXELA) 250-50 mcg/dose inhaler lansoprazole (PREVACID) 15 mg capsule Take 1 capsule by mouth once daily. losartan (COZAAR) 50 mg tablet TAKE 1 & 1/2 (ONE & ONE-HALF) TABLETS BY MOUTH ONCE DAILY rosuvastatin (CRESTOR) 5 mg tablet Take 1 tablet by mouth once daily. clopidogrel (PLAVIX) 75 mg tablet Take 1 tablet by mouth once daily. [facility] ID: [id number] [email or web address] albuterol HFA (VENTOLIN HFA) 90 mcg/actuation inhaler Inhale 2 Puffs as instructed every 4 hours asneeded for wheezing/shortness of breath. lidocaine (SALONPAS) 4 % patch Apply as directed once daily. denosumab (PROLIA) 60 mg/mL syrg Inject 60 mg subcutaneously one time only. Cholecalciferol, Vitamin D3, 25 mcg (1,000 unit) cap Vitamin D acetaminophen (TYLENOL) 500 mg tablet Take 500 mg by mouth every 8 hours as needed. CALCIUM CARBONATE (CALCIUM 500 ORAL) Take by mouth. iv contrast (will be provided with radiology test) MRI LSP Inject, intravenously, once for 1 dose. No IV access, insert saline lock prior to the beginning of sedation, infusion, injection of imaging exam. Discontinue saline lock post exam. If Pt. has a central line or IVAD, may access for administration according to line specific nursing protocol. Once exam is complete flush line and de-access according to line specific nursing protocol in the MR contrast administration guidelines link. No current facility-administered medications for this visit. ALLERGIES Allergen Reactions Cymbalta [Duloxetin* Other: See Comments Tremor Fosamax [Alendronat* Intolerance Reflux Septra [Sulfamethox* Hives swelling and SOB Sulfamethoxazole Hives Tramadol Other: See Comments Tremor Trimethoprim Hives Bupropion Other: See Comments Social History Tobacco Use Smoking status: Former Packs/day: 0.50 Years: 8.00 Pack years: 4.00 Types: Cigarettes Smokeless tobacco: Never Tobacco comments: quit in 1970 Vaping Use Vaping Use: Never used Substance Use Topics Alcohol use: Yes Comment: 1-2 times per week Drug use: No PAST MEDICAL HISTORY Diagnosis Date Abdominal pain Degenerative disc disease Depression Disorder of bone and cartilage, unspecified HTN (hypertension) Hypothyroid Intrinsic asthma Mixed hyperlipidemia Hyperlipidemia Osteoarthrosis, unspecified whether generalized or localized, other specified sites PMH - PAST MEDICAL HISTORY OF CVA with weakness left side PMH - PAST MEDICAL HISTORY OF 2000 left cervical radiculopathy PMH - PAST MEDICAL HISTORY OF 2003 right rib fracture PMH - PAST MEDICAL HISTORY OF 2005 right shoulder impingement syndrome Spinal stenosis Stroke (HCC) 2005 Unspecified hypothyroidism PAST SURGICAL HISTORY Procedure Laterality Date APPENDECTOMY 1960 BACK SURGERY HX 2017 L3-5 Decompression and Fusion CATARACT EXTRACTION HX Bilateral COLONOSCOPY N/A 09/15/2016 MAC EGD W/O BRSH SPEC VARICIES INJ 09/17/2016 EGD W/O [facility] SPEC VARICIES INJ 11/15/2022 EPIDURAL SITE SPECIFY lumbar spine PAST SURGICAL HISTORY OF 1976 thyroidectomy for toxic goiter TONSILLECTOMY PRIMARY/SECONDARY <AGE 12 Tonsillectomy FAMILY HISTORY Problem Relation Age of Onset Cerebral Embolism Mother Osteoporosis Mother other (spinal stenosis) Mother other (depression) Mother other (cva) Mother other (depression) Father other (tramatic brain syndrome) Father s/p MVA other (aplastic thyroid tumor) Sister Depression Brother Stroke Maternal Grandfather Colon Cancer No Family History REVIEW OF SYSTEMS Review of Systems Constitutional: Positive for appetite change. HENT: Positive for voice change. Respiratory: Positive for cough. Gastrointestinal: Positive for abdominal distention and nausea. All other systems reviewed and are negative. PHYSICAL EXAM BP 110/72 Pulse 81 Ht 160 cm (5' 3) Wt 63 kg (139 lb) BMI 24.62 kg/m Physical Exam Constitutional: General: She is not in acute distress. Appearance: Normal appearance. She is normal weight. She is not ill-appearing, toxic-appearing or diaphoretic. HENT: Head: Normocephalic and atraumatic. Nose: Nose normal. Eyes: General: No scleral icterus. Right eye: No discharge. Left eye: No discharge. Extraocular Movements: Extraocular movements intact. Conjunctiva/sclera: Conjunctivae normal. Pupils: Pupils are equal, round, and reactive to light. Cardiovascular: Rate and Rhythm: Normal rate and regular rhythm. Pulses: Normal pulses. Heart sounds: Normal heart sounds. No murmur heard. No friction rub. No gallop. Pulmonary: Effort: No respiratory distress. Breath sounds: Normal breath sounds. No stridor. No wheezing, rhonchi or rales. Chest: Chest wall: No tenderness. Abdominal: General: Abdomen is flat. Bowel sounds are normal. There is no distension. Palpations: Abdomen is soft. There is no mass. Tenderness: There is no abdominal tenderness. There is no right CVA tenderness, left CVA tenderness, guarding or rebound. Hernia: No hernia is present. Musculoskeletal: General: Normal range of motion. Cervical back: Normal range of motion and neck supple. Skin: General: Skin is warm and dry. Neurological: General: No focal deficit present. Mental Status: She is alert and oriented to person, place, and time. Psychiatric: Mood and Affect: Mood normal. Behavior: Behavior normal. Assessment/Plan (K21.9) Gastroesophageal reflux disease without esophagitis (primary encounter diagnosis) (R49.0) Hoarseness, chronic (R11.0) Nausea (K31.7) Gastric polyps (K59.09) Other constipation 1. Gastroesophageal reflux disease without esophagitis - US ABD RIGHT UPPER QUADRANT; Future - famotidine (PEPCID) 40 mg tablet; Take 1 tablet by mouth once daily as needed. Dispense: 60 tablet; Refill: 2 - Attempt to taper off of Prevacid 15 mg daily over the next several weeks. Pt has been on PPI chronically, informed of risk for returning sx with discontinuation, advised if sx persistent she may need to stay on medication daily - Start Pepcid 40 mg daily PRN - RUQ US from 2021 showed mild texture changes in liver, advised repeat US imaging. May need fibroscan if persistent texture abnormalities visualized - Pt reports chronic right sided abd pain, intermittent, radiates to right shoulder/neck. Has received Cardiac workup/carotid US in the past has been negative. Consider HIDA pending results of updated US 2. Hoarseness, chronic - Following with [employer]ed [employer], getting allergy shots today 3. Nausea - US ABD RIGHT UPPER QUADRANT; Future - famotidine (PEPCID) 40 mg tablet; Take 1 tablet by mouth once daily as needed. Dispense: 60 tablet; Refill: 2 4. Gastric polyps - Repeat EGD 2023 for surveillance 5. Other constipation - XR ABDOMEN 1V SUPINE; Future - Suspect nausea is 2/2 underlying constipation. Pt includes nausea flares up when her back pain increases (Following with Ortho) - Obtain KUB to assess stool burden (pt will obtain if needed after trial of Benefiber) - Drink around 64 oz water daily - Benefiber daily: 2 teaspoons added to 8 ounces of water up to 3 times daily. - If no improvement with Benefiber, Start Miralax daily to induce bowel movement Miralax generally will help produce bowel movement in 1-3 days Fill to top of white section in cap which is marked to indicate the correct dose (17 g) Stir and dissolve in any 8 ounces of non-carbonated beverage (cold, hot or room temperature) then drink If diarrhea occurs, reduce usage to every other day I spent a total of 25 minutes on the date of the service which included preparing to see the patient, [id number] patient care, completing clinical documentation, obtaining and/or reviewing separately obtained history, performing a medically appropriate examination, counseling and educating the pat ient/family/caregiver, ordering medications, tests, or procedures, communicating with other HCPs (not separately reported), independently interpreting results (not separately reported), communicatingresults to the patient/family/caregiver, and care coordination (not separately reported). Delia Mckeon PA-C December 30, 2022 9:16 AM documented in this encounterDiley [facility]05-10-2023 NoteHNO ID: [id number] Author: Lars Alcantar MD Service: ? Author Type: Physician Type: Progress Notes Filed: 12/29/2022 2:52 PM Note Text: Lars Alcantar M.D. ORTHOPEDIC SPINE CONSULT NOTE Date of visit: December 29, 2022 Patient Name: Ms.Carol Croft Date of : 1945 Current Age: [age] year old Sex: female PCP: Angie Aguirre APRN.SAURABH Chief Complaint:Patient presents with: New Patient HPI Ms.Carol Croft has a past medical history of asthma, HTN, HLD, osteoarthrosis, osteoporosis (takes Prolia) and CVA with left sided weakness. Patient presents to the office today as a new patient with radiographic imaging for evaluation of lumbar spine. The patient is referred by Angie Aguirre APRN. CNP, PCP, for orthopedic spine evaluation. She reported low back pain with radiation to right hip without paresthesia. She had participated in multiple sessions of physical therapy and follows with [facility], scheduled for right piriformis injection on 01/04/2023. She wished to consider a Spinal Cord Stimulator with Dr. Casillas and was recommended to follow-up with [facility] for further evaluation, prompting visit today. She reports low back pain with radiation to bilateral gluteal region, right > left, with an achy sensation to mid bilateral anterior thighs. Pain worsens with twisting, walking and any activity. Pain in her right gluteal region is most bothersome. Full symptomology and conservative treatment outlined below. She presents to the office for image review, evaluation and plan of care. Pain: Low back Radiation: Bilateral gluteal region, right >left, Achy feeling to bilateral anterior thighs Duration: Chronic Paresthesia: Denies Weakness: Bilateral lower extremities Dexterity: Denies Imbalance: Denies B/B dysfcn: Denies PREVIOUS CONSERVATIVE TREATMENT: 1) Medication: Tylenol, Salonpas, Robaxin 2) Physical therapy: x12 sessions from August 2022- present 3) Pain Management: follows with [facility] 4) Injections: Bilateral L5-S1 lumbar RFA on 09-28-2022-95% improvement for 6 weeks PREVIOUS SPINE SURGERY: -L3-L5 decompression and posterior fusion in 2017 Surgical Risk Factors: Smoking status: Former Anticoagulants/antiplatelets: Plavix Diabetic: No BMI: 24.27 Osteoporosis- on Prolia for 6 years, next 03/09/2023 PAIN EVALUATION 11/19/2022195812/22/2022 1219 Pain Level: 5 6 Pain Location: Back-Lower Back-Lower Description: Aching;Sharp;Sore;Stabbing/Not Incision;Tightness Aching;Cramping;Dull;Pressure;Sharp;Sore;Stabbing;Stiffness;Tightness Duration Amount of Time: 5 9 Duration Units: Months Months Frequency: Continuous Intermittent Intervention/Comfort measure: Reposition;Exercise;Heat;Pillow support Exercise;Heat;Pillow support;Positioning Comments: -- Have had pain in different locations in low back since 2017 ACTIVE PROBLEM LIST Mild Persistent Asthma Without Complication Stroke (Hcc) Gerd (Gastroesophageal Reflux Disease) Platelet Inhibition Due to Plavix Hyperthyroidism Postlaminectomy Syndrome Chronic Bilateral Low Back Pain Without Sciatica Chronic Si Joint Pain Primary Hypertension Hyperlipidemia Post-Surgical Hypothyroidism Other cerebral infarction (HCC) Generalized Abdominal Pain Special Screening Examination for Viral Disease Lumbar Spondylosis Lumbosacral Radiculitis Hoarse Dizziness PAST MEDICAL HISTORY Diagnosis Date Abdominal pain Degenerative disc disease Depression Disorder of bone and cartilage, unspecified HTN (hypertension) Hypothyroid Intrinsic asthma Mixed hyperlipidemia Hyperlipidemia Osteoarthrosis, unspecified whether generalized or localized, other specified sites PMH - PAST MEDICAL HISTORY OF CVA with weakness left side PMH - PAST MEDICAL HISTORY OF 2000 left cervical radiculopathy PMH - PAST MEDICAL HISTORY OF 2003 right rib fracture PMH - PAST MEDICAL HISTORY OF 2005 right shoulder impingement syndrome Spinal stenosis Stroke (HCC) 2005 Unspecified hypothyroidism PAST SURGICAL HISTORY Procedure Laterality Date APPENDECTOMY 1960 BACK SURGERY HX 2017 L3-5 Decompression and Fusion CATARACT EXTRACTION HX Bilateral COLONOSCOPY N/A 09/15/2016 MAC EGD W/O BRSH SPEC VARICIES INJ 09/17/2016 EGD W/O BRSH SPEC VARICIES INJ 11/15/2022 EPIDURAL SITE SPECIFY lumbar spine PAST SURGICAL HISTORY OF 1976 thyroidectomy for toxic goiter TONSILLECTOMY PRIMARY/SECONDARY Tonsillectomy FAMILY HISTORY Problem Relation Age of Onset Cerebral Embolism Mother Osteoporosis Mother other (spinal stenosis) Mother other (depression) Mother other (cva) Mother other (depression) Father other (tramatic brain syndrome) Father s/p MVA other (aplastic thyroid tumor) Sister Depression Brother Stroke Maternal Grandfather Colon Cancer No Family History Social History Tobacco Use Smoking status: Former Packs/day: 0 (more content not included)...[facility] 12-20-2022 History of Present illness Narrative* Jamila Gamino, PT - 12/20/2022 10:15 AM EDT Episode Visit Count: 4 Therapist That Will Accept/Oversee The Plan Of Care: Jamila Gamino Start of Care Date: 11/29/22 Onset Date: 10/01/22 Plan of Care Certification Date: 11/29/22 Next Certification Due Date: 01/03/23 REHABILITATION AND SPORTS THERAPY PHYSICAL THERAPY TREATMENT NOTE ASSESSMENT: Chiara Croft tolerated the session with decreased symptoms. She demonstrated no symptoms of dizziness with dynamic gait and balance testing including testing for BPPV as well as FGA without use of AD. Pt. Does require use of hand rail for steps and have sway with amb forward with theeyes closed but did not require physical assist or fall. The patient will continue to benefit from ongoing skilled physical therapy to progress toward set goals. PLAN FOR NEXT VISIT: SUBJECTIVE: Patient Reason for Visit: Pt. has not been feeling the moving vertigo. She reports much difficulty with the VORx1 exercises. Positional changes no longer bring on vertigo. She reports the BP has been between 100 and 110 systolic. She mentions that it was lower than usual yesterday. Vestibular Description: vertigo Rating of current symptoms: 0/10 Pain: OBJECTIVE MEASURES WITH LEVEL OF FUNCTION: Positional Testing Right [place]-Hallpike: Asymptomatic, No nystagmus Left Nann[place]-Hallpike: Symptomatic, Asymptomatic Right Ear Down: Asymptomatic, No nystagmus Left Ear Down: Asymptomatic, No nystagmus Functional Gait Assessment Gait level surface : 3 - Normal- walks 20' no assist device, good speed, no imbalance, normal gait pattern Change in gait speed: 3 - Normal- albe to smoothly change walking speed without loss of balance or gait deivations. Shows significant difference in walking speeds Gait and horizontal head turns: 3 - Normal- performs R/L head turns smoothly with no change in gait Gait and vertical head turns: 3 - Normal- performs up/down head turns smoothly with no change in gait Gait and pivot: 3 - Normal- pivot turn safely within 3 sec, stops quickly, no loss of balance Step over obstacle: 3 - Normal- is able to steop over box without changing speed, no evidence of imbalance Gait with narrow base of support : 3 - Normal- is able to ambulate 10 steps heel to toe with no staggering Gait with eyes closed : 2 - Mild impairment- walks 20' uses assist device, slower speed, mild gait deviation, deviates 6-10 outside of 12 walkway Ambulates backward : 3 - Normal- walks 20' no assist device, good speed, no imbalance, normal gait pattern, deviates no more than 6 outside 12 walkway Steps: 2 - Mild impairment- alternating feet, must use rail Functional Gait Assessment Total : 28 TREATMENT: Neuromuscular Re-Education: 1: R and L ear down 2: R and L nannette govea pike 3: amb at normal pace, no AD x20' 4: amb x20' with horrizontal head turns 5: amb x20' with vertical head turns 6: amb reverse x20' 7: amb forward and step over 6 dada 8: amb with sudden stop and pivot 180 degrees 1x 9: tandem walking in // bars x 10 consecutive steps without UE assist 10: amb forward x20' with eyes closed, no AD 11: amb with change in speed fast and slow every 5' intervals x 20' Skilled Intervention: Skilled judgment used to assess appropriate program for balance and coordination activity. Ensured patient safety with use of // bars and PT guarding. Reviewed and educated patient on additions/changes for home program as noted above with an (*). Provided written instruction for home program to facilitate proper performance and compliance. Patient education as noted. Gait Trainin: amb at normal pace, no AD x20' -- no cues needed 2: negociating x4 6 steps using x1 HR ascending and descending with reciprocal pattern. Skilled Intervention: Education provided to patient regarding the proper sequence for stair negotiation. Reviewed and educated patient on additions/changes for home program as noted above with an (*). Correct performance of home program was facilitated with verbal and visual cueing. Self-Long Term Management: 1: *discussed that VOR x1 exercises are not necessary due to resolution of dizziness with treatmentfor BPPV last visit. 2: *discussed using automatic lights, or hallway night lights due to brief LOB with amb with the eyes closed Skilled Intervention: Skilled judgment in the selection of proper modification for activity of daily living/home management based on clinical presentation, deficits, and needs. Provided written instruction for activities of daily living techniques to facilitate proper performance and compliance. Reviewed patient specific diagnosis in relation to activities of daily living/home management. Activity progression based on professional judgement. Reviewed and educated patient on additions/changes for home program as noted above with an (*). Correct performance of home program was facilitated with verbal and visual cueing. Billing Neuromuscular Re-Education Treatment Minutes: 23 Self-Care/Home Management Treatment Minutes: 5 Gait Training Treatment Minutes: 2 Total Treatment Time Minutes (timed/untimed): 30 Jamila Gamino PT documented in this encounterD[facility]04-17-2023 History of Present illness Narrative* Jamila Gamino PT - 12/06/2022 12:55 PM EDT Episode Visit Count: 3 Therapist That Will Accept/Oversee The Plan Of Care: Jamila Gamino Start of Care Date: 11/29/22 Onset Date: 10/01/22 Plan of Care Certification Date: 11/29/22 Next Certification Due Date: 01/03/23 REHABILITATION AND SPORTS THERAPY PHYSICAL THERAPY TREATMENT NOTE ASSESSMENT: Chiara Croft tolerated the session with increased symptoms. She demonstrated difficulty with static standing on foam with eyes closed. The patient will continue to benefit from ongoingskilled physical therapy to progress toward set goals. PLAN FOR NEXT VISIT: Assess symptom response to HC RPM today, and VORx1 exercises SUBJECTIVE: Patient Reason for Visit: Pt. has had 1-2 times of vertigo since last treatment. While turning the head L in bed and upon standing. Vestibular Description: vertigo Rating of current symptoms: 0/10 Pain: OBJECTIVE MEASURES WITH LEVEL OF FUNCTION: Positional Testing Right Ear Down: Asymptomatic, No nystagmus Left Ear Down: Symptomatic, Less than 60 seconds, No nystagmus CTSIB Eyes open, firm surface Trial 1 (sec): 30 Eyes open, firm surface Trial 1 (sway): Mild Eyes closed, firm surface Trial 1 (sec): 30 Eyes closed, firm surface Trial 1 (sway): Moderate Eyes open, foam surface Trial 1 (sec): 30 Eyes open, foam surface Trial 1 (sway): Moderate Eyes closed, foam surface Trial 1 (sec): 4 Eyes closed, foam surface Trial 1 (sway): Loss of balance Eyes closed, foam surface Trial 2 (sec): 3 Eyes closed, foam surface Trial 2 (sway): Loss of balance Eyes closed, foam surface Trial 3 (sec): 3 Eyes closed, foam surface Trial 3 (sway): Loss of balance TREATMENT: Neuromuscular Re-Education: 1: mCTSIB romberg firm surface, eyes open 30 sec 2: romberg eyes closed, firm surface 30 sec 3: romberg on foam eyes open 30 sec 4: rombher on foam eyes closed 2-3 seconds before LOB, 3x 5: R ear down - no nystagmus or symptoms 6: *VORx1 2 sets of 60 seconds, slow to maintain x in focus, seated 3' from wall, plain back ground(3 times a day, 1 min rest between each set) Skilled Intervention: Skilled judgment used to assess appropriate program for balance and coordination activity. Ensured patient safety with use of gait belt. Patient education as noted. Self-Long Term Management: 1: *discussed the 3 systems of balance 2: *discussed how the body can compensate with relying more on one system if theere is a decline inone of the other 3 systems 3: *pt. seems to rely mostly on vision for her balance 4: *pt. to keep her head upright for 2 hours and avoid sleeping on the L side Skilled Intervention: Skilled judgment in the selection of proper modification for activity of daily living/home management based on clinical presentation, deficits, and needs. Provided written instruction for activities of daily living techniques to facilitate proper performance and compliance. Reviewed patient specific diagnosis in relation to activities of daily living/home management. Activity progression based on professional judgement. Reviewed and educated patient on additions/changes for home program as noted above with an (*). Canalith Repositionin: 360 log roll for L horrizontal canalithiasis - no nystagmus observed but vertigo reported for <30 seconds. Dizziness reduced per pt. report, but pt. felt nauseas and required 5 minutes of seated rest Skilled Intervention: Professional judgment was used to determine specific treatment interventions based on assessment of symptoms. Physically assisted patient through each step of repositioning. Verbal and tactile cues provided to patient to assist in moving between each position of maneuver in correct sequence. Patient education including handouts provided regarding self repostitioning techniques to be performed at home. Instructed patient in post repositioning procedures. Billing Neuromuscular Re-Education Treatment Minutes: 25 Self-Care/Home Management Treatment Minutes: 5 * Canalith Repositionin unit Total Treatment Time Minutes (timed/untimed): 45 Jamila Gamino PT documented in this encounterDiley [facility] Center04-13-2023 History of Present illness Narrative* Reza Valerio, PT - 12/02/2022 10:05 AM EDT Episode Visit Count: 8 Therapist That Will Accept/Oversee The Plan Of Care: Reza Valerio Start of Care Date: 11/29/22 Onset Date: 10/01/22 Plan of Care Certification Date: 11/29/22 Next Certification Due Date: 01/03/23 Patient Identified by Name and Date of : Yes REHABILITATION AND SPORTS THERAPY PHYSICAL THERAPY TREATMENT NOTE ASSESSMENT: Chiara Croft tolerated the session with decreased pain with turning over in bed postMT. She demonstrated a favorable response post manual therapy over the lumbar paraspinals in particular. The patient will continue to benefit from ongoing skilled physical therapy to progress toward set goals. PLAN FOR NEXT VISIT: POC update SUBJECTIVE: Patient Reason for Visit: Pt states that she saw her physician b/c she feels she is chasing her pain. Does not feel like a piriformis injection will help. Pain: Pain Pain Level: 4 Pain Location: Low Back/Lumbar Spine - Right, Hip - Right Post Treatment Pain Post Treatment Pain Level: Better Post Treatment Pain Location: Low Back/Lumbar Spine - Right OBJECTIVE MEASURES WITH LEVEL OF FUNCTION: TTP glute max and piriformis and lumbar paraspinals on the R R hip PROM motion WNL Increased R buttock pain with prone ext and R LB ext noted that is excessive TREATMENT: Manual Therapy: 1: Bowstringing paraspinals of R LB 2: ISchemic compression over glute max, piriformis and lumbar paraspinals Skilled Intervention: Manual skills to improve joint mobility, ROM, and decrease pain. Utilized anatomy knowledge of the therapist, and assessment of patient's response to intervention. Billing Manual TherapyTreatment Minutes: 45 Total Treatment Time Minutes (timed/untimed): 45 Reza Valerio PT documented in this encounterDiley [facility] Center04-13-2023 History of Present illness Narrative* Jamila Gamino, PT - 12/02/2022 8:05 AM EDT Episode Visit Count: 2 Therapist That Will Accept/Oversee The Plan Of Care: Jamila Gamino Start of Care Date: 11/29/22 Onset Date: 10/01/22 Plan of Care Certification Date: 11/29/22 Next Certification Due Date: 01/03/23 REHABILITATION AND SPORTS THERAPY PHYSICAL THERAPY TREATMENT NOTE ASSESSMENT: Chiara Croft tolerated the session with decreased symptoms. She demonstrated improvements in symptoms following 270 degree log roll for L horrizontal canalithiasis. The patient will continue to benefit from ongoing skilled physical therapy to progress toward set goals. PLAN FOR NEXT VISIT: assess symptom response to 270 degree log roll for L HC. Consider VORx1 exercises and complete static standing and DGA testing. SUBJECTIVE: Patient Reason for Visit: Pt. reports feeling very whoozy after initial evaluation. She has noticed that she actually feels like this 40-50% of the day. Vestibular Description: vertigo (the room is swimming) Rating of current symptoms: 4/10 Nausea: better following 360 log roll for L HC canallithiasis Pain: Post Treatment Pain Post Treatment Symptoms: resolved symptoms. ambulates and sit <> stand without symptoms OBJECTIVE MEASURES WITH LEVEL OF FUNCTION: Positional Testing Left Ear Down: Symptomatic, Less than 60 seconds TREATMENT: Neuromuscular Re-Education: 1: R and L nannette hallpike without vertigo 1x each 2: R ear down without vertigo 1x Skilled Intervention: Ensured patient safety with use of guarding Reviewed and educated patient on additions/changes for home program as noted above with an (*). Correct performance of home program was facilitated with verbal, visual, and tactile cueing. Patient education as noted. Self-Long Term Management: 1: *pt. to sleep on R side 2: *discussed BPPV symptoms and causes 3: *pt. to keep her head upright for 2 hours Skilled Intervention: Skilled judgment in the selection of proper modification for activity of daily living/home management based on clinical presentation, deficits, and needs. Educated the patient regarding recommendations and provided written instruction to facilitate compliance. Reviewed patient specific diagnosis in relation to activities of daily living/home management. Activity progression based on professional judgement. Reviewed and educated patient on additions/changes for home program as noted above with an (*). Correct performance of home program was facilitated with verbal, visual, and tactile cueing. Canalith Repositionin: 270 log roll for L horrizontal canalithiasis - no nystagmus observed but vertigo reported for <30 seconds. Resolved dizziness and nausea at completion of CRM Skilled Intervention: Professional judgment was used to determine specific treatment interventions based on assessment of symptoms. Physically assisted patient through each step of repositioning. Verbal and tactile cues provided to patient to assist in moving between each position of maneuver in correct sequence. Patient education including handouts provided regarding self repostitioning techniques to be performed at home. Instructed patient in post repositioning procedures. Billing Neuromuscular Re-Education Treatment Minutes: 5 Self-Care/Home Management Treatment Minutes: 10 * Canalith Repositionin unit Total Treatment Time Minutes (timed/untimed): 30 Jamila Gamino PT documented in this encounterDiley [facility] Center04-08-2023 Miscellaneous Notes* Telephone Encounter - Zheng Tse LPN - 11/27/2022 8:38 AM EDT Pt notified. She verbalized understanding. Zheng Tse LPN * Telephone Encounter - Shayla Barlow Ma - 11/26/2022 3:19 PM EDT Message left for pt to call back. Shayla Barlow MA * Telephone Encounter - Angie Aguirre APRN.CNP - 11/26/2022 3:17 PM EDT So, instead, lets please change her to 88 mcg daily. Do not skip any days. Recheck labs in 6 weeks. Angie Aguirre APRN.CNP * Telephone Encounter - Shayla Barlow Ma - 11/26/2022 2:13 PM EDT Spoke with pt, she states she did not take the 112 mcg dosage every day. She took it daily except on Sundays when she took NONE. Do you want her to still decrease to 100 mcg and does she need to take it daily? Shayla Barlow Ma * Telephone Encounter - Angie Aguirre APRN.CNP - 11/26/2022 1:54 PM EDT Can please let patient know that I received her lab results. Her thyroid level looks like she may be getting a little too much medication. Lets back this down to 100 mcg daily (instead of 112). Lets have her recheck this in 6 weeks. I wonder if this could be causing some of her symptoms. Her sodium was just a little low. Lets recheck this at the same time we repeat her thyroid labwork. Angie Aguirre APRN.CNP documented in this encounterDiley [facility] Center04-07-2023 History of Present illness Narrative* Albin Balderrama V, - 11/26/2022 11:25 AM EDT SUBJECTIVE: Chiara Croft presents with the complaint of Right sided low Back Pain,chronic onset . Past medical history and surgical history with her low back. She had a multilevel fusion in 2017, she has had chronic back pain since that time. She has undergone treatment through pain management with injections and nerve ablation which have given her short-term relief. She continues to have signif icant pain in the right low back and right posterior hip. She denies pain radiating down the leg below the knee. She denies any new bowel or bladder dysfunction. She denies any new extremity weakness. He has been going to physical therapy regularly with moderate improvement at best. He is here todayto see if there could possibly be any other causes to her back pain and to discuss a plan of action. PAST MEDICAL HISTORY Diagnosis Date Abdominal pain Degenerative disc disease Depression Disorder of bone and cartilage, unspecified HTN (hypertension) Hypothyroid Intrinsic asthma Mixed hyperlipidemia Hyperlipidemia Osteoarthrosis, unspecified whether generalized or localized, other specified sites PMH - PAST MEDICAL HISTORY OF CVA with weakness left side PMH - PAST MEDICAL HISTORY OF 2000 left cervical radiculopathy PMH - PAST MEDICAL HISTORY OF 2003 right rib fracture PMH - PAST MEDICAL HISTORY OF 2005 right shoulder impingement syndrome Spinal stenosis Stroke (HCC) 2005 Unspecified hypothyroidism PAST SURGICAL HISTORY Procedure Laterality Date APPENDECTOMY 1960 CATARACT EXTRACTION HX Bilateral COLONOSCOPY N/A 09/15/2016 MAC EGD W/O BRSH SPEC VARICIES INJ 09/17/2016 EPIDURAL SITE SPECIFY lumbar spine PAST SURGICAL HISTORY OF 1976 thyroidectomy for toxic goiter PAST SURGICAL HISTORY OF 2016 lumbar fusion TONSILLECTOMY PRIMARY/SECONDARY <AGE 11 Tonsillectomy OBJECTIVE: Range of Motion Spine: extension limited, flexion limited, lateral rotation limited Gait: Unassisted, mildly antalgic, Muscle Spasm lumbar paraspinal Strength lower extremeties no focal deficits Sensory exam Lower Extremities no focal deficits Spinal Tenderness generalized along the right lumbar and lumbosacral paraspinal Straight Leg Raise: sitting negative, lying negative Lumbar films from 1 year ago and hip and pelvis films from 2 months ago are reviewed with patient and her . Assessment & Plan: Chronic low back pain, status post lumbar fusion We reviewed some basic traction isometric contraction stretching exercises that she can do at home.I recommend continuing with physical therapy and modalities as tolerated. She has an appointment with Dr. English in the near future for consultation and I recommend that she keep that appointment as this is Dr. English's area of expertise and he may be able to shed light on additional treatment options. Albin Balderrama DO * Andra Goldstein Ma - 11/26/2022 10:34 AM EDT AMB ROOMING INTAKE FLOWSHEET DATA Pain Pain Level: 5 Pain Location: Back-Lower Description: Aching, Sharp, Sore, Stabbing/Not Incision, Tightness Duration Amount of Time: 5 Duration Units: Months Frequency: Continuous Intervention/Comfort measure: Reposition, Exercise, Heat, Pillow support documented in this encounterD[facility]04-[facility]23 Miscellaneous Notes* Telephone Encounter - Salas Andrews RN - 11/23/2022 3:08 PM EDT Attempted to reach patient. Left HIPAA compliant voice message on [employer] asking patient to call office back. Ordered scoliosis films to have completed prior to appointment with Dr Alcantar on 11/26/2022. Provided information of when and where to obtain images. Additionally, provided our office phone number and my extension. Salas Andrews RN documented in this encounterDiley [facility] Center04-04-2023 History of Present illness Narrative* Quita Barth APRN.WEIGHT ANALYST - 11/23/2022 3:00 PM EDT SUBJECTIVE: Chiara Croft [facility] for a follow up appointment for RFA. Since the last visit, Chiara Croft states the pain has been persistent. Current pain intensity is 5 on a scale of 0-10. Pain located in lower back area and right hip. Pain described as stabbing and aching. The patient Denies numbness and tingling. Symptoms interfere with physical activity, cooking, household cleaning, and lifting. Pain is exacerbated by physical activity and twisting. Pain is mitigated by heat, stretching, and getting off my feet. The medications are and causing sedation. The patient has stopped taking the baclofen. REVIEW OF SYSTEMS: Constitutional: (-) Weight Gain (+) Weight Loss (-) Fatigue Cardiovascular: (-) hx heart surgery (-) Pacemaker Respiratory: (+) Shortness of Breath (-) Cough (-) Snoring Gastrointestinal: (-) Incontinence (-) Diarrhea (-) Constipation (+) Nausea (-) Vomiting Endocrine: (+) Thyroid Disorder (-) Diabetes Hematologic: (+) Prolonged Bleeding (+) Easy Bruising Genitourinary: (-) Incontinence (-) Frequency (-) Urinary Urgency Skin: (-) Open sores/wound Neurologic: (-) Headache (-) Double Vision Psychiatric: (-) Depression (-) Anxiety (-) Personal History of Alcohol or Substance Abuse (-) Family History of Alcohol or Substance Abuse CHIEF COMPLAINT:Patient presents with: Low Back Pain OBJECTIVE: Pulse 85 Wt 143 lb (64.9kg) SpO2 97% PHYSICAL EXAMINATION: General appearance: Well appearing, in no acute distress, alert and oriented x3 Skin: Skin color, texture, turgor normal, no rashes or lesions Neck: No pain to palpation over the cervical paraspinous muscles. No pain with neck flexion, extension, or lateral flexion Cardiovascular: Regular, rate and rhythm Lungs: Normal respiratory rate and rhythm, Lungs clear to auscultation Back: Intact range of motion with pain reproduction. Facet:pos lumbar facet loading SI JOINT: neg PSIS tenderness, gucci Tenzin's, neg Sacral thrust. Spine: Reports Tenderness on palpation: Lumbar- axial Extremities: No deformities, edema, or skin discoloration. Good capillary refill. Neuro: No loss of sensation is noted. Motor skills intact Station and Gait: antalgic gait Trigger points: right piriformis muscle. ASSESSMENT: Assessment : Patient presents for injection follow up She had a bilateral L5-S1 lumbar RFA on 09-28-2022 and reports 95% improvement for only 6 weeks Patient has a hx of spinal fusion at L3-5 Patient has low back pain, denies radicular sxs Patient is currently participating in PT, had x6 sessions so far Pain in the right piriformis- The pain is constant ache. She does her stretches. Patient would liketo proceed with injection by Dr. Calle Patient has an appt with Dr. English but she plans to cancel. She does nto want anymore surgery Consider SCS. Brochure given. Discussed she will need to see Dr. Suero and do a SCS trial Patient reports the flexeril causes increase drowsiness. Discussed trial of robaxin Encounter Diagnosis ICD-10-CM 1. Lumbar facet arthropathy M47.816 2. Lumbar spondylosis M47.816 3. History of lumbar spinal fusion Z98.1 4. Myalgia M79.10 5. Postlaminectomy syndrome M96.1 PDMP website checked and validated. All prescriptions have been APPROPRIATELY filled. No suspiciousactivity was identified. 11/22/2022 by Quita Barth APRN.CNP Narcotic Agreement reviewed and signed?: N/A on November 22, 2022 The pain panel was N/A PLAN: Injection history was reviewed. Medication use and compliance were reviewed. 1. Continue medication management through the [facility] 2. The following approved medication requests have been transmitted electronically. Requested Prescriptions Signed Prescriptions Disp Refills methocarbamol (ROBAXIN) 500 mg tablet 60 tablet 0 Sig: Take 1 tablet by mouth twice daily as needed. 3. Interventional procedure options discussed. Order placed for right piriformis injection by Dr. Calle. Will contact his office 4. Continue PT and HEP 5. Consider SCS. Brochure given. She will let us know if she would like to proceed. Then order willneed placed for Dr. Casillas 6) F/U in prn I spent a total of 30 minutes on the date of the service which included preparing to see the patient, [id number] patient care, completing clinical documentation, performing a medically appropriate examination, counseling and educating the patient/family/caregiver, and ordering medications, tests,or procedures. The above plan and management options were discussed at length with patient. Patient is in agreement with the above and verbalized understanding. Quita Barth APRN, SAURABH November 22, 2022 documented in this encounterDiley [facility] Center04-03-2023 Instructions* Patient Instructions* Angie Aguirre APRN.CNP - 11/22/2022 12:01 PM EDT Get labwork. Schedule with physical therapy. Keep me updated. documented in this encounterDiley [facility] Center04-03-2023 History of Present illness Narrative* Angie Aguirre APRN.SAURABH - 11/22/2022 11:04 AM EDT This is a 77 year old female who presents today with: Patient presents with: Dizziness: Dizzy spells occur intermittently for 2 or 3 months HISTORY OF PRESENT ILLNESS: Chiara Croft is a 77 year old female. Patient presents with: Dizziness: Dizzy spells occur intermittently for 2 or 3 months Pt presents today with complaint of intermittent dizziness. Refers that she feels like her head swims when she gets up. Sometimes can happen when she is laying down and opens eyes, will feel like the room is moving. Refers that it has been going on for 3-4 months. Not frequent and not every day. Will last a few minutes. No n/v associated w/ symptoms. No diaphoresis. Will feel unsteady, like she has lost her balance. No falls. No n/v. Speech and swallow is okay. Hx of a CVA. No change in vision. Some tinnitus, but that is not new. No CP/palpitations. No increased SOB (ie has asthma). No urinary symptoms. Moving bowels -- no hematochezia/melena. Could do better at water intake. Had an endoscopy last week -- normal. Cough and hoarse. Has been getting persistently nauseated. Making an appt to return to see GI. Has lost 6 pounds unintentionally. Refers just couldn't eat. Doesn't feel good after eating. PAST MEDICAL HISTORY: PAST MEDICAL HISTORY Diagnosis Date Abdominal pain Degenerative disc disease Depression Disorder of bone and cartilage, unspecified HTN (hypertension) Hypothyroid Intrinsic asthma Mixed hyperlipidemia Hyperlipidemia Osteoarthrosis, unspecified whether generalized or localized, other specified sites PMH - PAST MEDICAL HISTORY OF CVA with weakness left side PMH - PAST MEDICAL HISTORY OF 2000 left cervical radiculopathy PMH - PAST MEDICAL HISTORY OF 2003 right rib fracture PMH - PAST MEDICAL HISTORY OF 2005 right shoulder impingement syndrome Spinal stenosis Stroke (HCC) 2005 Unspecified hypothyroidism PAST SURGICAL HISTORY Procedure Laterality Date APPENDECTOMY 1960 CATARACT EXTRACTION HX Bilateral COLONOSCOPY N/A 09/15/2016 MAC EGD W/O BRSH SPEC VARICIES INJ 09/17/2016 EPIDURAL SITE SPECIFY lumbar spine PAST SURGICAL HISTORY OF 1976 thyroidectomy for toxic goiter PAST SURGICAL HISTORY OF 2016 lumbar fusion TONSILLECTOMY PRIMARY/SECONDARY <AGE 11 Tonsillectomy ALLERGIES Cymbalta [Duloxetine], Fosamax [Alendronate Sodium], Septra [Sulfamethoxazole-Trimethoprim], Sulfamethoxazole, Tramadol, Trimethoprim, and Bupropion MEDICATIONS Current Outpatient Medications Medication Sig fluticasone-salmeterol (ADVAIR DISKUS) 250-50 mcg/dose inhaler levothyroxine (SYNTHROID) 112 mcg tablet Take 1 tablet by mouth once daily. lansoprazole (PREVACID) 15 mg capsule Take 1 capsule by mouth once daily. losartan (COZAAR) 50 mg tablet TAKE 1 & 1/2 (ONE & ONE-HALF) TABLETS BY MOUTH ONCE DAILY rosuvastatin (CRESTOR) 5 mg tablet Take 1 tablet by mouth once daily. clopidogrel (PLAVIX) 75 mg tablet Take 1 tablet by mouth once daily. [facility] ID: [id number] [email or web address] albuterol HFA (VENTOLIN HFA) 90 mcg/actuation inhaler Inhale 2 Puffs as instructed every 4 hours asneeded for wheezing/shortness of breath. lidocaine (SALONPAS) 4 % patch Apply as directed once daily. denosumab (PROLIA) 60 mg/mL syrg Inject 60 mg subcutaneously one time only. Cholecalciferol, Vitamin D3, 25 mcg (1,000 unit) cap Vitamin D acetaminophen (TYLENOL) 500 mg tablet Take 500 mg by mouth every 8 hours as needed. CALCIUM CARBONATE (CALCIUM 500 ORAL) Take by mouth. gabapentin (NEURONTIN) 300 mg capsule Take 1 capsule by mouth daily at bedtime for 30 days. cyclobenzaprine (FLEXERIL) 5 mg tablet Take 5 mg by mouth three times daily as needed. No current facility-administered medications for this visit. FAMILY HISTORY Problem Relation Age of Onset Cerebral Embolism Mother Osteoporosis Mother other (spinal stenosis) Mother other (depression) Mother other (cva) Mother other (depression) Father other (tramatic brain syndrome) Father s/p MVA other (aplastic thyroid tumor) Sister Depression Brother Stroke Maternal Grandfather Colon Cancer No Family History Social History Tobacco Use Smoking status: Former Packs/day: 0.50 Years: 8.00 Pack years: 4.00 Types: Cigarettes Smokeless tobacco: Never Tobacco comments: quit in 1969 Vaping Use Vaping Use: Never used Substance Use Topics Alcohol use: Yes Comment: 1-2 times per week Drug use: No EXAM: BP 122/74 Pulse 64 Resp 18 SpO2 97% PHYSICAL EXAM: General Appearance: Well appearing, alert, in no acute distress, well-hydrated, well nourished.. Skin: Skin color, texture, turgor normal, no suspicious rashes or lesions. Head: Normocephalic, no masses, lesions, tenderness or abnormalities. Eyes: Anicteric sclera. Pupils are equally round and reactive to light. Extraocular movements are intact. Ears: External ears normal, canals clear. Oropharynx: Lips, mucosa, and tongue normal, teeth and gums normal, oropharynx normal. Neck: Supple, no adenopathy; thyroid symmetric, normal size, no bruits. Lungs: Lungs clear to auscultation. No wheezing, rhonchi, rales.. Heart: RRR without murmur, gallop, or rubs. No ectopy. Abdomen: Abdomen soft, non-tender. Bowel sounds normal. No masses, organomegaly. Extremities: No deformities, edema, skin discoloration, clubbing or cyanosis. Good capillary refill. . Neurologic: Gait normal. Reflexes normal and symmetric. Sensation grossly intact., Negative findings: speech normal, mental status intact, cranial nerves 2-12 intact, gait, including heel, toe, Romberg negative, muscle tone normal, muscle strength normal, reflexes normal and symmetric. Negative HINTs exam. No nystagmus noted, but does have symptoms with nannette-hallpike to the right. ASSESSMENT/PLAN: 1. Dizziness - ICD9: 780.4, ICD10: R42 (primary diagnosis) Suspect vestibular in nature. Negative orthos. Will get labs. Referral to PT. Offered imaging, but declines for now. - CONSULT TO PHYSICAL THERAPY 2. Encounter for screening mammogram for breast cancer - ICD9: V76.12, ICD10: Z12.31 - Set up for mammogram, yearly mammogram recommended - [facility] SCREENING [facility] [place] 3. Hyperlipidemia, unspecified hyperlipidemia type - ICD9: 272.4, ICD10: E78.5 - to be determined upon return of lab results - Continue current medication. - LIPID PANEL, NONFASTING 4. Primary hypertension - ICD9: 401.9, ICD10: I10 - good control - Continue current medication(s) - Recommended regular aerobic exercise. - Recommend home blood pressure monitoring, to bring results in on next visit - Goal of BP <130/80 - COMP METABOLIC PANEL 5. Gastroesophageal reflux disease, unspecified whether esophagitis present - ICD9: 530.81, ICD10: K21.9 Check mag level d/t long-term PPI use. - MAGNESIUM BLD 6. Post-surgical hypothyroidism - ICD9: 244.0, ICD10: E89.0 - TSH BLD - T4 FREE/FREE THYROX 7. Other cerebral infarction (HCC) - ICD9: 434.91, ICD10: I63.89 - CBC + DIFF Will check blood count d/t plavix use. Discussed treatment plan and patient voices understanding. Patient's questions answered appropriately. Medications and potential side effects were discussed and patient voices understanding. Return to the office as scheduled or as needed for worsening/no improvement. Angie Aguirre APRN.WEIGHT ANALYST documented in this encounterDiley [facility] Center03-30-2023 History of Present illness Narrative* Reza Valerio PT - 11/18/2022 9:21 AM EDT Episode Visit Count: 6 Therapist That Will Accept/Oversee The Plan Of Care: Reza Valerio Start of Care Date: 09/03/22 Onset Date: 08/10/23 Plan of Care Certification Date: 11/18/22 Next Certification Due Date: 12/23/22 Patient Identified by Name and Date of : Yes REHABILITATION AND SPORTS THERAPY PHYSICAL THERAPY PROGRESS REPORT PLAN OF CARE UPDATE: Assessment: Chiara Croft demonstrates difficulty with sitting and walking and improvements in decreased back pain and LLE pain. She has new goals added to address R buttock pain and progressed toward goals. Patient continues to present with impairments in ADL's, flexibility, strength, and symptom management that interfere with sitting, walking . Current prognosis is Good due to: current objective clinical presentation . R piriformis flexibility minimal limiatation and causes familiar pain. She will benefit from continued skilled therapy services to meet the updated goals for this plan of care as noted below. Goals updated 11/18/2022 Goals for Episode of Care: created on 09/03/22 through 10/29/22 Independent in home exercises. - MET Restore pain-free lumbar ROM to WNL to allow for ease of picking picking up objects - MET Stand / Walk 30 minutes without pain/symptoms. - Did meet this goal but has regressed due to R hip pain, will continue Improve R piriformis flexibility to WNL in 4 weeks or less to decrease pain with walking and sitting (NEW) Patient Goals: Decrease symptoms Patient Goals: Decrease symptoms Planned Interventions, Frequency, and Duration: 1x/week, 4 weeks Total Number of Visits Planned: 4 Patient to be seen for Therapeutic exercise (01645), Neuromuscular re-education (99472), Therapeutic activities (30346), Self-shelter management (07488), Patient/Family/Caregiver Education PLAN FOR NEXT VISIT: Assess how piriformis stretching has affected the R hip. If not better than could trial R piriformis strengthening. SUBJECTIVE: Patient Reason for Visit: R back pain is worsening. Bent over and got back up and has astabbing pain in the R buttock that comes and goes but is more consistent now. Twisting to the leftcan make it stabbing in the buttock. Sitting can make it ache and walking makes it worse. Did do hiking. Feels the pain is muscular. Pt feels she is 75% improved on the original back problem we have been working on. Was able to walk for over 30 min but now hip hurts. Patient Goals: Decrease symptoms Functional Limitations: sitting, walking Prior Level of Function: Independent without limitations Intake Information: Prescription present Previous Treatment: Pain meds Falls Interview: Fall without injury in the last year Pain: Pain Pain Level: 3 Pain Location: Hip - Right Description: Aching PROMIS Scales Higher is Better 11/10/2022 09/01/2022 05/21/2022 Phys Func - Score 43 (mild dysfunction) 36 (moderate dysfunction) 34 (moderate dysfunction) Phys Func - Percentile 24 % 8 % 5 % Self-Eff Symptom - Score 42 (Average) 38 (Low) - Self-Eff Symptom - Percentile 21 % 12 % - T-scores: mean of general population = 50. 5 points is clinically meaningfully difference Percentiles provide an indication of how the patient's score ranks in relation to the general population. Higher percentile rankings indicate better function/quality of life. 50th percentile is the average of the general population and indicates half of respondents had a worse score. OBJECTIVE MEASURES WITH LEVEL OF FUNCTION: Lumbar Spine AROM Lumbar Flexion: Moderate limitation, Increased pain (R buttock) Lumbar Extension: Moderate limitation, Increased pain (aching in R buttock) Lumbar R Side-Bend: Normal Lumbar L Side-Bend: Normal Lumbar R Rotation: Normal Lumbar L Rotation: Normal LE AROM R LE AROM: WNL L LE AROM: WNL LE Flexibility Flexibility: Piriformis Flexibility R Piriformis Flexibility: Min limiatation L Piriformis Flexibility: WNL LE Strength R LE Strength: Grossly 5/5 R Hip External Rotation: 4/5 L Hip Flexion (L2): 4/5 Special Tests - Hip and Spine Hip and Spine Special Tests: (Side-lying piriformis test R positive. L negative) TREATMENT: Therapeutic Exercise: 1: All objective measures taken this session (Discussed anatomy of the piriformis muscle) 2: Supine R piriformis stretch 3 x 30 sec 3: Seated R piriformis stretch 2 x 30 sec Skilled Intervention: Patient was educated in proper exercise technique and purpose for exercises. Provided written instruction for home exercise program to facilitate proper performance and compliance. Correct performance of therapeutic exercises was facilitated with verbal and visual cuing. Billing Therapeutic Exercise Treatment Minutes: 45 Total Treatment Time Minutes (timed/untimed): 45 Reza Valerio PT documented in this encounterDiley [facility] Center03-27-2023 Nurse Note* Dayana West RN - 11/15/2022 10:13 AM EDT AMBULATORY PATIENT EDUCATION NOTE TOPIC: GI PROCEDURES: Esophagogastroduodenoscopy(EGD) with or without biopies based on clinical findings, removal of polyps or lesions READINESS TO LEARN INSTRUCTION PROVIDED TO: Patient, readness to learn accessed prior to procedure, Family member and Patient and family member COGNITIVE ABILITY: Alert and oriented PTED MOTIVATION TO LEARN: Interested FAMILY SUPPORT: High - Very involved in pt care IPATIENT LEARNS BEST BY: Individual Instruction Written Instruction - Hand-outs Verbal Instruction FACTORS AFFECTING LEARNING: None PHYSICAL LIMITATIONS AFFECTING LEARNING: None LEARNING RESPONSE METHOD OF INSTRUCTION: Individual instruction PATIENT / FAMILY RESPONSE: Verbalizes understanding of: WORSENING CONDITION- Signs and symptoms of aworsening condition that warrant a call to the physician FOLLOW-UP PLAN: Patient instructed to call with any further issues SUPPLEMENTAL MATERIAL: Procedure Discharge Instructions REFERRAL (RECOMMENDATION): None Dayana West RN * Stephani Conde RN - 11/15/2022 9:33 AM EDT PRE OP LEARNING ASSESSMENT PROCEDURE/SURGERY: GI PROCEDURES: EGD READINESS TO LEARN COGNITIVE ABILITY: Alert and oriented MOTIVATION TO LEARN: Interested FAMILY SUPPORT: Moderate - Family present but overwhelmed PATIENT LEARNS BEST BY: Individual Instruction Verbal Instruction FACTORS AFFECTING LEARNING: None PHYSICAL LIMITATIONS AFFECTING LEARNING: None Electronically Signed By: Stephani Conde RN In Department: GASTROENTEROLOGY documented in this encounterDiley [facility] Center03-23-2023 History of Present illness Narrative* Reza Valerio PT - 11/11/2022 9:37 AM EDT Episode Visit Count: 5 Therapist That Will Accept/Oversee The Plan Of Care: Reza Valerio Start of Care Date: 09/03/22 Onset Date: 08/10/23 Plan of Care Certification Date: 09/24/22 Next Certification Due Date: 10/29/22 Patient Identified by Name and Date of : Yes REHABILITATION AND SPORTS THERAPY PHYSICAL THERAPY TREATMENT NOTE ASSESSMENT: Chiara Croft tolerated the session with decreased symptoms. She demonstrated improvements in endurance with core stabilization. The patient will continue to benefit from ongoing skilled physical therapy to progress toward set goals. PLAN FOR NEXT VISIT: Focus more heavily on Core strengthening. SUBJECTIVE: Patient Reason for Visit: Pt reports that her back is feeling pretty good. Pt just returned form a 6 week trip, with the past 5 days in a car. Pt states that she has an appointment with Dr. Balderrama coming up in regards to R buttock stabbing pain and stretches and heat don't seem to help and sometimes hinders her form standing. Pt rpeorts L side of low back is doing better and pain is not severe and not going down her leg. Pt states she was being active and walking about 2 miles per day while she was out of time and was doing fine then one morning woke up and could barely move,her back was painful and tight, this lasted about 4 days, then she was better. Pain: Pain Pain Level: 5 Pain Location: Back, Buttocks - Right Post Treatment Pain Post Treatment Pain Level: Better Post Treatment Pain Location: Back OBJECTIVE MEASURES WITH LEVEL OF FUNCTION: Increased motion noted with increased reps of LTR, even with modifications made to decrease pain and pressure on R side of low back. TREATMENT: Therapeutic Exercise: 1: Seated piriformis stretch 3x30 seconds RLE 2: Seated IR stretch 3x30 seconds RLE 3: Supine LTR 2x10 B (modifications made to decrease pain and pressure on R side) 4: Supine PPT 2x10 5: Supine PPT with alt marching 2x10 B 6: Supine TA activation with push into physioball 2x10 with 2 second holds 7: Supine TA activation with push into physioball 10x with 10 second holds Skilled Intervention: Patient was educated in proper exercise technique and purpose for exercises. Skilled judgment was provided in selection of appropriate interventions. Correct performance of therapeutic exercises was facilitated with verbal and visual cuing. Billing Therapeutic Exercise Treatment Minutes: 40 Total Treatment Time Minutes (timed/untimed): 40 SANDRA Burks PT documented in this encounterDiley [facility] Medical Center03-20-2023 Miscellaneous Notes* Telephone Encounter - Glory Conroy MA - 11/08/2022 3:54 PM EDT GI Pre-Procedure Spoke with patient: Yes Confirmed date scheduled and patient report time: Yes Procedure Planned:Esophagogastroduodenoscopy(EGD) with or without biopies based on clinical findings, removal of polyps or lesions Is the patient on blood thinners?yes Clopidogrel (Plavix): Stop 5 days prior to procedure, pt was instructed 7 days by her physician Procedure Instructions given to patient: Yes, and they verbalized their understanding of instructions given Patient instructed to take prescribed preparation prior to procedure:Yes, and they verbalized theirunderstanding of instructions given Patient instructed to have family/friend present for procedure transport home:Patient/patient field representative/health education was told that if they do not have a responsible adult accompany them to their procedure; and remain in the endoscopy area until they are discharged; that their procedure cannot be done with s edation or anesthesia and may be cancelled. and They verbalized their understanding and agree to have a responsible adult accompany the patient to their procedure and remain in the endoscopy area. Any barriers to Patient learning: Patient/Patient Professor Of Practice responded appropriately on phone. Type of instruction given: Verbal by telephone contact. Glory Conroy MA documented in this encounterDiley [facility] Medical Center03-17-2023 Miscellaneous Notes* Telephone Encounter - Paloma Dacosta RN - 11/05/2022 3:57 PM EDT Call to pt and scheduled 11/19/22. Paloma Dacosta RN documented in this encounterDiley Ridge Medical Center02-03-2023 History of Present illness Narrative* Reza Valerio, PT - 09/24/2022 10:28 AM EST Episode Visit Count: 4 Therapist That Will Accept/Oversee The Plan Of Care: Reza Valerio Start of Care Date: 09/03/22 Onset Date: 08/10/23 Plan of Care Certification Date: 09/24/22 Next Certification Due Date: 10/29/22 Patient Identified by Name and Date of : Yes REHABILITATION AND SPORTS THERAPY PHYSICAL THERAPY PROGRESS REPORT PLAN OF CARE UPDATE: Assessment: Chiara Croft demonstrates difficulty with standing and walking and improvements in independence with the HEP, decreased radicular pain, and improved tolerance to standing/walking. She hasprogressed toward goals. Patient continues to present with impairments in independence in exercise, strength , and symptom management that interfere with standing, walking . Current prognosis is Good due to: current objective clinical presentation . She will benefit from continued skilled therapyservices to meet the updated goals for this plan of care as noted below. Goals updated 09/24/2022 Goals for Episode of Care: created on 09/03/22 through 10/29/22 Independent in home exercises. - MET Restore pain-free lumbar ROM to WNL to allow for ease of picking picking up objects - MET Stand / Walk 30 minutes without pain/symptoms. - Progressing, will continue Patient Goals: Decrease symptoms Patient Goals: Decrease symptoms Planned Interventions, Frequency, and Duration: 1x/week, 4 weeks Total Number of Visits Planned: 4 Patient to be seen for Therapeutic exercise (64164), Neuromuscular re-education (51715), Therapeutic activities (68185), Self-shelter management (91275), Patient/Family/Caregiver Education PLAN FOR NEXT VISIT: Focus more heavily on Core strengthening. Possibly use stabilizer SUBJECTIVE: Patient Reason for Visit: Pain is much better. No leg pain.. Patient Goals: Decrease symptoms Functional Limitations: standing, walking Prior Level of Function: Independent without limitations Intake Information: Prescription present Previous Treatment: Pain meds Falls Interview: Fall without injury in the last year Pain: Pain Pain Level: 4 Pain Location: Back Description: Aching Post Treatment Pain Post Treatment Pain Level: Better Post Treatment Pain Location: Back PROMIS Scales Higher is Better 05/21/2022 08/19/2022 09/01/2022 Phys Func - Score 34 (moderate dysfunction) - 36 (moderate dysfunction) Phys Func - Percentile 5 % - 8 % Social Roles - Score - - - Social Role - Percentile - - - GH Physical - Score - 44.9 (Good) - GH Physical - Percentile - 31 % - GH Mental - Score - Incomplete - GH Mental - Percentile - - - Self-Eff Symptom - Score - - 38 (Low) Self-Eff Symptom - Percentile - - 12 % T-scores: mean of general population = 50. 5 points is clinically meaningfully difference Percentiles provide an indication of how the patient's score ranks in relation to the general population. Higher percentile rankings indicate better function/quality of life. 50th percentile is the average of the general population and indicates half of respondents had a worse score. Lower is Better 01/12/2022 02/11/2022 Fatigue - Score 57 (mild) 48 (within normal limits) Fatigue - Percentile 24 % 58 % T-scores: mean of general population = 50. 5 points is clinically meaningfully difference Percentiles provide an indication of how the patient's score ranks in relation to the general population. Higher percentile rankings indicate better function/quality of life. 50th percentile is the average of the general population and indicates half of respondents had a worse score. OBJECTIVE MEASURES WITH LEVEL OF FUNCTION: Lumbar Spine AROM Lumbar Flexion: Normal Lumbar Extension: Moderate limitation (No pain) Lumbar R Side-Bend: Normal Lumbar L Side-Bend: Normal Lumbar R Rotation: Normal Lumbar L Rotation: Normal LE AROM Tested?: Yes LE AROM R LE AROM: WNL L LE AROM: WNL LE Strength R LE Strength: Grossly 5/5 L Hip Flexion (L2): 4/5 (No pain) TREATMENT: Therapeutic Exercise: 1: All objective measures taken this session 2: Captain todd 3 x 30 seconds 3: Supine LLE SLR with core bracing (PPT) 2 x 9 reps Skilled Intervention: Patient was educated in proper exercise technique and purpose for exercises. Provided written instruction for home exercise program to facilitate proper performance and compliance. Correct performance of therapeutic exercises was facilitated with verbal and visual cuing. Manual Therapy: 1: Discussed self massage technique, duration and pressure 2: Pt performed self massage over lumbar and thoracic paraspinals (ball vs wall technique) Skilled Intervention: Manual skills to improve joint mobility, ROM, and decrease pain. Utilized anatomy knowledge of the therapist, and assessment of patient's response to intervention. Billing Therapeutic Exercise Treatment Minutes: 27 Manual TherapyTreatment Minutes: 15 Total Treatment Time Minutes (timed/untimed): 42 Reza Valerio PT documented in this encounterDiley [facility] Center01-27-2023 History of Present illness Narrative* Reza Valerio PT - 09/17/2022 9:30 AM EST Episode Visit Count: 3 Therapist That Will Accept/Oversee The Plan Of Care: Reza Valerio Start of Care Date: 09/03/22 Onset Date: 08/10/23 Plan of Care Certification Date: 09/03/22 Next Certification Due Date: 10/08/22 Patient Identified by Name and Date of : Yes REHABILITATION AND SPORTS THERAPY PHYSICAL THERAPY TREATMENT NOTE ASSESSMENT: Chiara Croft tolerated the session with no issues. She demonstrated improvements in less pain in the back post manual therapy techniques. The patient will continue to benefit from ongoing skilled physical therapy to progress toward set goals. PLAN FOR NEXT VISIT: POC update SUBJECTIVE: Patient Reason for Visit: Was better last week. Pain in the lower back right now and isgetting worse. Has an ablation scheduled for the 7th. The leg pain is getting Pain: Pain Pain Level: 6 Pain Location: Back Post Treatment Pain Post Treatment Pain Level: Better Post Treatment Pain Location: Back OBJECTIVE MEASURES WITH LEVEL OF FUNCTION: TTP lumbar paraspinals TREATMENT: Therapeutic Exercise: 1: Supine hip flexor stretch holding 30 sec 3 x 30 sec each leg (discussed mod to this exercise to prevent pain) Skilled Intervention: Patient was educated in proper exercise technique and purpose for exercises. Correct performance of therapeutic exercises was facilitated with verbal and visual cuing. Manual Therapy: 1: STM using lacrosse ball with push per tolerance over lumbar paraspinals in sidelying position 2: Manual stretching of Bilat lumbar paraspinals 3: Inferior glide on the L hip sustained x 5 min Skilled Intervention: Manual skills to improve joint mobility, ROM, and decrease pain. Utilized anatomy knowledge of the therapist, and assessment of patient's response to intervention. Billing Therapeutic Exercise Treatment Minutes: 4 Manual TherapyTreatment Minutes: 35 Total Treatment Time Minutes (timed/untimed): 39 Reza Valerio PT documented in this encounterDiley [facility] Medical Center01-25-2023 Miscellaneous Notes* Addendum Note - Angie Aguirre APRN.CNP - 09/15/2022 2:40 PM ESTAddended by: ANGIE AGUIRRE on: 09/15/2022 02:40 PM Modules accepted: Orders * Addendum Note - Zheng Tse LPN - 09/15/2022 2:33 PM ESTAddended by: ZHENG TSE LPN on: 09/15/2022 02:33 PM Modules accepted: Orders documented in this encounterDiley [facility] Center01-20-2023 History of Present illness Narrative* Reza Valerio PT - 09/10/2022 9:32 AM EST Episode Visit Count: 2 Therapist That Will Accept/Oversee The Plan Of Care: Reza Valerio Start of Care Date: 09/03/22 Onset Date: 08/10/23 Plan of Care Certification Date: 09/03/22 Next Certification Due Date: 10/08/22 Patient Identified by Name and Date of : Yes REHABILITATION AND SPORTS THERAPY PHYSICAL THERAPY TREATMENT NOTE ASSESSMENT: Chiara Croft tolerated the session with decreased symptoms. She demonstrated improvements in endurance with core activation exercises.. The patient will continue to benefit from ongoing skilled physical therapy to progress toward set goals. PLAN FOR NEXT VISIT: Assess reaction to HEP. Assess core strength SUBJECTIVE: Patient Reason for Visit: Pt reports that her back is better. Pt reports that most of her pain is in her low back now and not in her LLE. Does occasionally still have L groing pain. Pt states not having to use her cane. PT states that the home exercises are helping and she is completing4-5 tinmes a day. Pt reports using heat. Pt states she was more active yesterday. Supi Pain: Pain Pain Level: 3 Pain Location: Buttocks - Left;Low Back/Lumbar Spine- Midline;Low Back/Lumbar Spine - Left OBJECTIVE MEASURES WITH LEVEL OF FUNCTION: Pt's L piriformis limited compared to R. TREATMENT: Therapeutic Exercise: 1: SKTC 5x30 seconds holds, each LE 2: *DKTC 3x30 seconds 3: LTR 2x10 B 4: Supine PPT 2x10 5: *Supine hip flexor stretch off edge of table 4x30 seconds B 6: *Seated piriformis stretch 2x30 seconds B 7: Supine PPT wiht alt marching 2x10 B 8: Hooklying PPT with BKFO 2x10 9: *Seated hamstring stretch 1x 30 seconds, LLE Skilled Intervention: Patient was educated in proper exercise technique and purpose for exercises. Reviewed and educated patient on additions/changes for home exercise program as above (*). Skilled judgment was provided in selection of appropriate interventions. Provided written instruction for home exercise program to facilitate proper performance and compliance. Correct performance of therapeutic exercises was facilitated with verbal and visual cuing. Billing Therapeutic Exercise Treatment Minutes: 43 Total Treatment Time Minutes (timed/untimed): 43 Whitney Darby, SANDRA Valerio PT documented in this encounterDiley [facility] Center01-19-2023 History of Present illness Narrative* Valentine Munoz NATHAN - 09/09/2022 11:02 AM EST Patient presents for Prolia injection. Denies any problems at this time. Patient instructed on any SE of medication, verbalized understanding and agreed to proceed with treatment. Tolerated injectionwell. Valentine Munoz LPN documented in this encounterDiley [facility] Center01-16-2023 Miscellaneous Notes* Telephone Encounter - Angie Aguirre APRN.SAURABH - 09/06/2022 4:45 PM EST Script sent. Angie Aguirre APRN.SAURABH * Telephone Encounter - Zheng Tse LPN - 09/06/2022 3:18 PM EST Rx pending with information requested. Zheng Tse LPN documented in this encounterDiley [facility] Center01-13-2023 History of Present illness Narrative* Reza Valerio PT - 09/03/2022 1:28 PM EST Episode Visit Count: 1 Therapist That Will Accept/Oversee The Plan Of Care: Reza Valerio Start of Care Date: 09/03/22 Onset Date: 08/10/23 Plan of Care Certification Date: 09/03/22 Next Certification Due Date: 10/08/22 Patient Identified by Name and Date of : Yes REHABILITATION AND SPORTS THERAPY PHYSICAL THERAPY EVALUATION PLAN OF CARE: Assessment: Chiara Croft presents with diagnosis of Back, hip and L leg pain that interferes with standing . She presents with impairments in ADL's, independence in exercise, and symptom management. PROMIS (Patient-Reported Outcomes Measurement Information System) scores were reviewed and physical function domain and self efficacy domain identified as a rehabilitation concern. Prognosis for therapy is Good due to: current objective clinical presentation . PT demonstrates decreased LLE radiculopathy with lumbar flexion exercises. She will benefit from skilled therapy services to meet the goals established for this plan of care as noted below. Classification Low Back Pain Subgroup Classification: Core stabilization subgroup: recommended visits 10. Specific Exercies Subgroup Classification based on: directional preference Goals for Episode of Care: created on 09/03/22 through 10/29/22 Independent in home exercises. Restore pain-free lumbar ROM to WNL to allow for ease of picking picking up objects Stand / Walk 30 minutes without pain/symptoms. Patient Goals: Decrease symptoms Planned Interventions, Frequency, and Duration: Current Frequency: 1x/week Duration: 4 weeks Total Number of Visits Planned: 4 Planned Treatment Interventions: Therapeutic exercise (30445);Neuromuscular re- education (43476);Therapeutic activities (91099);Self-shelter management (01887);Patient/Family/Caregiver Education PLAN FOR NEXT VISIT: Assess reaction to HEP. Assess core strength Patient demonstrates good understanding of plan of care and treatment. The above goals and plan of care were discussed and agreed upon by patient/family. SUBJECTIVE: Chiara Croft is a 77 year old female seen today for Back pain. Pain in the LLE is getting better. Mid calf is where the pain travels. Not exactly sure what set it off.. but the L hip was bothering her for several months and had a hard time sleeping on that side. Was not able to sleepwell. Last time in PT it was muscular and that resolved. Has had problems on the pirifomis. Sore topush on. Sitting seems to relieve some pain and standing makes the L leg pain worse. Patient Goals: Decrease symptoms Functional Limitations: standing Prior Level of Function: Independent without limitations Relevant History Preferred Language: Iraqi Intake Information: Prescription present Previous Treatment: Pain meds Pain: Pain Pain Level: 4 Pain Location: Leg - Left;Buttocks - Left Description: Aching Post Treatment Pain Post Treatment Pain Level: Better Post Treatment Pain Location: Leg - Left PROMIS Scales Higher is Better 05/21/2022 08/19/2022 09/01/2022 Phys Func - Score 34 (moderate dysfunction) - 36 (moderate dysfunction) Phys Func - Percentile 5 % - 8 % Social Roles - Score - - - Social Role - Percentile - - - GH Physical - Score - 44.9 (Good) - GH Physical - Percentile - 31 % - GH Mental - Score - Incomplete - GH Mental - Percentile - - - Self-Eff Symptom - Score - - 38 (Low) Self-Eff Symptom - Percentile - - 12 % T-scores: mean of general population = 50. 5 points is clinically meaningfully difference Percentiles provide an indication of how the patient's score ranks in relation to the general population. Higher percentile rankings indicate better function/quality of life. 50th percentile is the average of the general population and indicates half of respondents had a worse score. Lower is Better 01/12/2022 02/11/2022 Fatigue - Score 57 (mild) 48 (within normal limits) Fatigue - Percentile 24 % 58 % T-scores: mean of general population = 50. 5 points is clinically meaningfully difference Percentiles provide an indication of how the patient's score ranks in relation to the general population. Higher percentile rankings indicate better function/quality of life. 50th percentile is the average of the general population and indicates half of respondents had a worse score. OBJECTIVE MEASURES WITH LEVEL OF FUNCTION: Spine Observations R Lumbar Spine Palpation Tenderness: Paraspinals L Lumbar Spine Palpation Tenderness: Paraspinals Lumbar Spine AROM Lumbar Flexion: Normal;Centralizing Lumbar Extension: Moderate limitation Lumbar R Side-Bend: Normal Lumbar L Side-Bend: Normal Lumbar R Rotation: Normal Lumbar L Rotation: Normal LE AROM Tested?: Yes LE AROM R Hip Flexion: 110 Degrees (some discomfort in the back) R Hip Internal Rotation: 20 Degrees R Hip External Rotation: 40 Degrees L Hip Flexion: 110 Degrees (Discomfort at anterior pelvis) L Hip Internal Rotation: 20 Degrees L Hip External Rotation: 40 Degrees LE Strength R Hip Flexion (L2): 4/5 L Hip Flexion (L2): 4/5 (increases pain into the LLE) Education: Education Learning Preferences: Demonstration;Explanation;Performance;Printed Materials Barriers: None Learning/educational needs: Home exercise program;Plan of Care Education Provided: Yes, see treatment interventions for education provided Education Provided To: Patient Education Mode/Type: Demonstration;Explanation/Discussion;Literature/Printed Materials;Performance Response to Education/Teach Back: States/Identifies;Return Demonstration TREATMENT: PT Treatment Interventions: Therapeutic Exercise Evaluation Therapeutic Exercise: 1: Discussed therapy goals, exam findings and purpose of the HEP. HEP handout provided 2: PPT supine x 10 3: SKTC x 5 each leg 4: PPT in standing x 5 reps Skilled Intervention: Patient was educated in proper exercise technique and purpose for exercises. Correct performance of therapeutic exercises was facilitated with verbal and visual cuing. Billing * Evaluation Low Complexity: 1 Unit Therapeutic Exercise Treatment Minutes: 23 Total Treatment Time Minutes (timed/untimed): 45 Reza Valerio PT documented in this encounterDiley [facility] Center01-06-2023 History of Present illness Narrative* Albin Balderrama Cindi, DO - 08/27/2022 3:22 PM EST SELF Ms. Croft is a 77 year old female that presents today complaining of hip problems on the left side for the last 2 weeks. She claims that she was standing quite a bit before the holidays and thinks it may have contributed to the onset of her symptoms. The pain is described as constant located inthe buttocks, thigh, and radiates to left lower leg/calf. She describes the pain as aching, sometimes electric shock sensation. There are times when she saysthat her left hip feels like it is giving out. Patient states that her pain level is a number 6 on a scale of 1-10 Reports low back pain with no increase in symptoms with activity. She has had chronic low back painever since having a lumbar fusion in 2017. ALLERGIES: Cymbalta [Duloxetine], Fosamax [Alendronate Sodium], Septra [Sulfamethoxazole-Trimethoprim], Sulfamethoxazole, Tramadol, Trimethoprim, and Bupropion MEDICATIONS: Current Outpatient Medications Medication Sig predniSONE (DELTASONE) 10 mg tablet Take 4 tabs daily for 3 days, then 2 tabs daily for 3 days, then 1 tab daily for 3 days with food. ADVAIR DISKUS 500-50 mcg/dose dsdv INHALE 1 DOSE BY MOUTH TWICE DAILY cyclobenzaprine (FLEXERIL) 5 mg tablet Take 5 mg by mouth three times daily as needed. lansoprazole (PREVACID) 15 mg capsule Take 1 capsule by mouth once daily. rosuvastatin (CRESTOR) 5 mg tablet Take 1 tablet by mouth once daily. losartan (COZAAR) 50 mg tablet TAKE 1 & 1/2 (ONE & ONE-HALF) TABLETS BY MOUTH ONCE DAILY albuterol HFA (VENTOLIN HFA) 90 mcg/actuation inhaler Inhale 2 Puffs as instructed every 4 hours asneeded for wheezing/shortness of breath. lidocaine (SALONPAS) 4 % patch Apply as directed once daily. denosumab (PROLIA) 60 mg/mL syrg Inject 60 mg subcutaneously one time only. Cholecalciferol, Vitamin D3, 25 mcg (1,000 unit) cap Vitamin D CALCIUM CARBONATE (CALCIUM 500 ORAL) Take by mouth. clopidogrel (PLAVIX) 75 mg ORAL Tab Take one(1) tablet daily. SYNTHROID 112 MCG TAB Take one(1) tablet daily except tuesday gabapentin (NEURONTIN) 300 mg capsule Take 1 capsule by mouth daily at bedtime for 30 days. montelukast (SINGULAIR) 10 mg tablet Take 10 mg by mouth daily at bedtime. Azelastine 205.5 mcg (0.15 %) spry (Patient not taking: Reported on 08/27/2022) FLUTICASONE FUROATE NASAL Use 1 [place] in the nose twice daily as needed. (Patient not taking: Reported on 08/27/2022) acetaminophen (TYLENOL) 500 mg tablet Take 500 mg by mouth every 8 hours as needed. Current Facility-Administered Medications Medication Dose Route Frequency denosumab 60 mg injection (PROLIA) 60 mg SUBCUTANEOUS Q 6 MONTH MEDICAL HISTORY: PAST MEDICAL HISTORY Diagnosis Date Abdominal pain Degenerative disc disease Depression Disorder of bone and cartilage, unspecified HTN (hypertension) Hypothyroid Intrinsic asthma Mixed hyperlipidemia Hyperlipidemia Osteoarthrosis, unspecified whether generalized or localized, other specified sites PMH - PAST MEDICAL HISTORY OF CVA with weakness left side PMH - PAST MEDICAL HISTORY OF 2000 left cervical radiculopathy PMH - PAST MEDICAL HISTORY OF 2003 right rib fracture PMH - PAST MEDICAL HISTORY OF 2005 right shoulder impingement syndrome Spinal stenosis Stroke (HCC) 2005 Unspecified hypothyroidism SURGICAL HISTORY: PAST SURGICAL HISTORY Procedure Laterality Date APPENDECTOMY 1960 CATARACT EXTRACTION HX Bilateral COLONOSCOPY N/A 09/15/2016 MAC EGD W/O BRSH SPEC VARICIES INJ 09/17/2016 EPIDURAL SITE SPECIFY lumbar spine PAST SURGICAL HISTORY OF 1976 thyroidectomy for toxic goiter PAST SURGICAL HISTORY OF 2016 lumbar fusion TONSILLECTOMY PRIMARY/SECONDARY <AGE 12 Tonsillectomy FAMILY HISTORY: FAMILY HISTORY Problem Relation Age of Onset Cerebral Embolism Mother Osteoporosis Mother other (spinal stenosis) Mother other (depression) Mother other (cva) Mother other (depression) Father other (tramatic brain syndrome) Father s/p MVA other (aplastic thyroid tumor) Sister Depression Brother Stroke Maternal Grandfather Colon Cancer No Family History SOCIAL HISTORY: Social History Tobacco Use Smoking status: Former Packs/day: 0.50 Years: 8.00 Pack years: 4.00 Types: Cigarettes Smokeless tobacco: Never Tobacco comments: quit in 1970 Vaping Use Vaping Use: Never used Substance Use Topics Alcohol use: Yes Comment: 1-2 times per week Drug use: No PHYSICAL ASSESSMENT: The Pt walks with a limping gait using a cane B/l LE have Nl Alignment The Left hip reveals no hip flexion contracture, 0-100 degrees of flexion, Internal Rotation to 20 degrees in flexion and external rotation to 45 degrees in flexion. Abduction to 45 degrees and adduction to 20 degrees. There is no pain with palpation over the ischial tuberosity or the greater trochanter. The Right hip reveals a no hip flexion contracture, 0-100 degrees of flexion, Internal Rotation to 20 degrees in flexion and external rotation to 45 degrees in flexion. Abduction to 45 degrees and adduction to 20 degrees. There is no pain with palpation over the ischial tuberosity or the greater trochanter. EHL 5/5 DF 5/5 PF 5/5 RADIOGRAPH: Mild bilateral acetabular protrusion otherwise bilateral hips are normal in appearance ASSESSMENT: Left hip and leg pain-more indicative of lumbosacral neuritis than regionally from the hip itself. Based on symptoms she may also have a component of piriformis syndrome contributing to her pain PLAN: I recommend physical therapy/order is entered As well as a trial of gabapentin. She states that she has Flexeril at home but has not been taking it. She may consider taking it at bedtime for symptom relief. Requested Prescriptions Signed Prescriptions Disp Refills gabapentin (NEURONTIN) 300 mg capsule 30 capsule 0 Sig: Take 1 capsule by mouth daily at bedtime for 30 days. Order entered - please phone pharmacy and notify patient. Albin Balderrama DO * Andra Goldstein Ma - 08/27/2022 3:02 PM EST AMB ROOMING INTAKE FLOWSHEET DATA Risk Screening Do you have concerns about personal safety or safety in the home?: No Pain Pain Level: 6 Pain Location: Hip-Left Description: Shooting, Dull, Aching, Sharp Duration Amount of Time: 2 Duration Units: Weeks Frequency: Intermittent Intervention/Comfort measure: Medication documented in this encounterDiley [facility] Center12-30-2022 Miscellaneous Notes* Telephone Encounter - Shayla Barlow Ma - 08/20/2022 8:38 AM EST Pt notified of results via [employer]. Shayla Barlow Ma * Telephone Encounter - Shira Rowe APRN.CNP - 08/20/2022 8:17 AM EST Can you please call the patient and let her know that I reviewed her hip x-ray results. X-ray showed some protrusion noted in the sockets of the hips. Some degenerative changes noted in the pubis. No fractures were noted. I would recommend that she continue current medication and plan to keep appointment with Dr. Balderrama next week. Please let me know if she has any questions. Shira Rowe APRN.CNP' documented in this encounterDiley [facility] Medical Center12-29-2022 Instructions* Patient Instructions* Shira Rowe APRN.CNP - 08/19/2022 2:21 PM EST Get xrays completed today Start Prednisone taper May use Klondike as needed for moderate to severe pain May continue with ice, heat, and rest. Keep up coming appointment with Dr. Balderrama. Red flag symptoms go to ER. Follow up pending test results or sooner as needed. documented in this [facility] History of Present illness Narrative* Shira Rowe APRN.CNP - 08/19/2022 2:00 PM EST This is a 77 year old female who presents today with: Patient presents with: Acute Visit: Lt hip pain HISTORY OF PRESENT ILLNESS: Chiara Croft is a 77 year old female. Patient presents with: Acute Visit: Lt hip pain Patient of Angie Aguirre CNP here in the office for left hip pain for 2 weeks. No injury to the area. Ache pain from the left hip down to calf. Sharp pain at times. Pain is worse laying flat. Had tosleep in a chair. Limping, feels like the hip will give out. Has been using tylenol as needed, cannot take NSAIDS due to Plavix. Took 1 old norco before bed last night which helped her sleep. Refers she has had right hip pain in the past. Has upcoming appointment on August [address] Balderrama in orthopedics. Would like x-ray completed. Seeing Dr. Gibson in pain management for back injections, refers she does not get any pain medicationfrom him. PAST MEDICAL HISTORY: PAST MEDICAL HISTORY Diagnosis Date Abdominal pain Degenerative disc disease Depression Disorder of bone and cartilage, unspecified HTN (hypertension) Hypothyroid Intrinsic asthma Mixed hyperlipidemia Hyperlipidemia Osteoarthrosis, unspecified whether generalized or localized, other specified sites PMH - PAST MEDICAL HISTORY OF CVA with weakness left side PMH - PAST MEDICAL HISTORY OF 2000 left cervical radiculopathy PMH - PAST MEDICAL HISTORY OF 2003 right rib fracture PMH - PAST MEDICAL HISTORY OF 2005 right shoulder impingement syndrome Spinal stenosis Stroke (HCC) 2005 Unspecified hypothyroidism PAST SURGICAL HISTORY Procedure Laterality Date APPENDECTOMY 1960 CATARACT EXTRACTION HX Bilateral COLONOSCOPY N/A 09/15/2016 MAC EGD W/O BRSH SPEC VARICIES INJ 09/17/2016 EPIDURAL SITE SPECIFY lumbar spine PAST SURGICAL HISTORY OF 1976 thyroidectomy for toxic goiter PAST SURGICAL HISTORY OF 2016 lumbar fusion TONSILLECTOMY PRIMARY/SECONDARY <AGE 11 Tonsillectomy ALLERGIES Cymbalta [Duloxetine], Fosamax [Alendronate Sodium], Septra [Sulfamethoxazole-Trimethoprim], Sulfamethoxazole, Tramadol, Trimethoprim, and Bupropion MEDICATIONS Current Outpatient Medications Medication Sig ADVAIR DISKUS 500-50 mcg/dose dsdv INHALE 1 DOSE BY MOUTH TWICE DAILY montelukast (SINGULAIR) 10 mg tablet Take 10 mg by mouth daily at bedtime. cyclobenzaprine (FLEXERIL) 5 mg tablet Take 5 mg by mouth three times daily as needed. Azelastine 205.5 mcg (0.15 %) spry lansoprazole (PREVACID) 15 mg capsule Take 1 capsule by mouth once daily. rosuvastatin (CRESTOR) 5 mg tablet Take 1 tablet by mouth once daily. losartan (COZAAR) 50 mg tablet TAKE 1 & 1/2 (ONE & ONE-HALF) TABLETS BY MOUTH ONCE DAILY albuterol HFA (VENTOLIN HFA) 90 mcg/actuation inhaler Inhale 2 Puffs as instructed every 4 hours asneeded for wheezing/shortness of breath. lidocaine (SALONPAS) 4 % patch Apply as directed once daily. FLUTICASONE FUROATE NASAL Use 1 [place] in the nose twice daily as needed. denosumab (PROLIA) 60 mg/mL syrg Inject 60 mg subcutaneously one time only. Cholecalciferol, Vitamin D3, 25 mcg (1,000 unit) cap Vitamin D acetaminophen (TYLENOL) 500 mg tablet Take 500 mg by mouth every 8 hours as needed. CALCIUM CARBONATE (CALCIUM 500 ORAL) Take by mouth. clopidogrel (PLAVIX) 75 mg ORAL Tab Take one(1) tablet daily. SYNTHROID 112 MCG TAB Take one(1) tablet daily except tuesday Current Facility-Administered Medications Medication Dose Route Frequency denosumab 60 mg injection (PROLIA) 60 mg SUBCUTANEOUS Q 6 MONTH FAMILY HISTORY Problem Relation Age of Onset Cerebral Embolism Mother Osteoporosis Mother other (spinal stenosis) Mother other (depression) Mother other (cva) Mother other (depression) Father other (tramatic brain syndrome) Father s/p MVA other (aplastic thyroid tumor) Sister Depression Brother Stroke Maternal Grandfather Colon Cancer No Family History Social History Tobacco Use Smoking status: Former Packs/day: 0.50 Years: 8.00 Pack years: 4.00 Types: Cigarettes Smokeless tobacco: Never Tobacco comments: quit in 1969 Vaping Use Vaping Use: Never used Substance Use Topics Alcohol use: Yes Comment: 1-2 times per week Drug use: No REVIEW OF SYSTEMS GENERAL: No weight loss, malaise or fevers/chills HEENT: Negative for frequent or significant headaches, No changes in hearing or vision. NECK: Negative for lumps, goiter, pain and significant neck swelling RESPIRATORY: Negative for cough, hemoptysis, wheezing, dyspnea or shortness of breath CARDIOVASCULAR: Negative for chest pain, leg swelling, orthopnea, or palpitations GI: No nausea, vomiting, or diarrhea/constipation. No hematochezia/melena. No heartburn or reflux symptoms. : No history of dysuria, frequency or incontinence MUSCULOSKELETAL: + Left Hip Pain SKIN: Negative for lesions, rash, and itching ENDOCRINE: Negative for cold or heat intolerance, polyuria, polydipsia and goiter NEURO: No history of headaches, syncope, paralysis, seizures or tremors MOOD: Negative for depression, anxiety, or suicidal ideation. EXAM: BP 122/66 Pulse 69 Resp 16 Wt 65.8 kg (145 lb) SpO2 96% BMI 25.69 kg/m PHYSICAL EXAM: General Appearance: Well appearing, alert, in no acute distress, well-hydrated, well nourished. Skin: Skin color, texture, turgor normal, no suspicious rashes or lesions. Head: Normocephalic, no masses, lesions, tenderness or abnormalities. Eyes: Anicteric sclera. Extraocular movements are intact. Lungs: Lungs clear to auscultation. No wheezing, rhonchi, rales. Heart: RRR without murmur, gallop, or rubs. No ectopy. Extremities: No deformities, edema, skin discoloration, clubbing or cyanosis. Good capillary refill. Musculoskeletal: Limping + Left hip, decreased ROM, posterior, iliac crest, and greater trochanter tender with palpation. When hip is externally rotated patient refers that hip feels like it will popout of socket. Peripheral Pulses: Normal, Capillary refill <2secs, strong peripheral pulses, Pulses palpable. Neurologic: Gait normal. Reflexes normal and symmetric. Sensation grossly intact. PDMP website checked and validated. All prescriptions have been APPROPRIATELY filled. No suspiciousactivity was identified. 08/19/2022 by Shira Rowe APRN.SAURABH ASSESSMENT/PLAN: 1. Hip pain - ICD9: 719.45, ICD10: M25.559 - Due to exam and history will get bilateral xray of hips. - Start Prednisone taper - May use Klondike as needed for moderate to severe pain. - Continue with supportive care at home. - XR HIP BILATERAL 5V PEL/AP/LAT EACH HIP - HYDROCODONE 5 MG-ACETAMINOPHEN 325 MG TABLET - PREDNISONE 10 MG TABLET Follow up pending test results or sooner as needed. Discussed treatment plan and patient voices understanding. Patient's questions answered appropriately. Medications and potential side effects were discussed and patient voices understanding. Shira Rowe APRN.SAURABH This note was partially generated using [employer] voice recognition system. Note was reviewed for accuracy. There may be minor misspellings or grammar miscues with [employer] voice recognition. documented in this encounterD[facility]12-29-2022 Miscellaneous Notes* Telephone Encounter - Yudi Gregory Ma - 08/19/2022 9:33 AM EST Patient notified appointment needed and scheduled Yudi Gregory Ma documented in this [facility]12-29-20[facility] Miscellaneous Notes* Telephone Encounter - Yudi Gregory Ma - 08/19/2022 9:32 AM EST Patient notified appointment needed and scheduled Yudi Gregory Ma * Telephone Encounter - Cynthia Damon Pss - 08/19/2022 9:19 AM EST Patient called stating she is still having a lot of left hip pain and is scheduled to see Dr. Deras 08/27. She is asking if she could get an xray prior to that to make sure it is nothing urgent. documented in this [facility]12-05-20[facility] Instructions* Patient Instructions* Delia Mkceon PA-C - 07/26/2022 9:25 AM EST - Drink around 64 oz water daily - Benefiber daily: 2 teaspoons added to 8 ounces of water up to 3 times daily. Recommend high protein, high fiber diet. Promotion of salivation through oral lozenges/chewing gum Drink plenty of water Avoid NSAIDs (such as Advil, Ibuprofen, Excedrin, Mobic), tobacco, alcohol, carbonated beverages, caffeine, chocolate, tomato based sauces, spicy/fatty foods, and peppermint Avoid eating less than 3 hours before bed. Elevate the head of the bed 6 inches, or invest in a wedge pillow. Laying on left side with head elevated may help alleviate reflux symptoms. documented in this encounterD[facility]12-[facility]22 History of Present illness Narrative* Delia Mckeon PA-C - 07/26/2022 9:05 AM EST CHIEF COMPLAINT: Patient presents with: Persistent hoarseness and cough HPI: Chiara Croft is a 77 year old female who presents for Persistent hoarseness and cough. Surg hx positive for thyroidectomy 1976. Admits to chronic hoarseness/cough for several years. Went to ENT four years ago and told she had silent reflux. Has been on Prevacid 15 mg daily for years. Recently saw ENT again in the past year and told to stop Prevacid as they felt it was not helping. Pt notes that shortly after stopping PPI, sx significantly worsened. Zoya Lopez has been managing her asthma and includes this has been under good control recently, but still struggling with hoarseness. Bms are usually regular, in the past year has had more issues with constipation, no blood. Denies regular NSAIDs, abd pain, unintentional weight loss, dysphagia. EGD/Colon 2016 5 mm colon polyp, CONVERTED FINAL DIAGNOSIS 1. Stomach, antrum, biopsy (A) - Gastric antral body-type mucosa with no pathologic diagnostic abnormality; see comment. 2. Colon, rectal polyp, biopsy (B) - Colonic mucosa with hyperplastic and trauma/prolapse changes; negative for dysplasia. Record Review: [facility] / Outside records reviewed. PAST MEDICAL HISTORY Diagnosis Date Abdominal pain Degenerative disc disease Depression Disorder of bone and cartilage, unspecified HTN (hypertension) Hypothyroid Intrinsic asthma Mixed hyperlipidemia Hyperlipidemia Osteoarthrosis, unspecified whether generalized or localized, other specified sites PMH - PAST MEDICAL HISTORY OF CVA with weakness left side PMH - PAST MEDICAL HISTORY OF 2000 left cervical radiculopathy PMH - PAST MEDICAL HISTORY OF 2003 right rib fracture PMH - PAST MEDICAL HISTORY OF 2005 right shoulder impingement syndrome Spinal stenosis Stroke (HCC) 2006 Unspecified hypothyroidism PAST SURGICAL HISTORY Procedure Laterality Date APPENDECTOMY 1960 CATARACT EXTRACTION HX Bilateral COLONOSCOPY N/A 09/15/2016 MAC EGD W/O BRSH SPEC VARICIES INJ 09/17/2016 EPIDURAL SITE SPECIFY lumbar spine PAST SURGICAL HISTORY OF 1976 thyroidectomy for toxic goiter PAST SURGICAL HISTORY OF 2016 lumbar fusion TONSILLECTOMY PRIMARY/SECONDARY <AGE 11 Tonsillectomy Allergies: ALLERGIES Allergen Reactions Cymbalta [Duloxetin* Other: See Comments Tremor Fosamax [Alendronat* Intolerance Reflux Septra [Sulfamethox* Hives swelling and SOB Sulfamethoxazole Hives Tramadol Other: See Comments Tremor Trimethoprim Hives Bupropion Other: See Comments Medications: ADVAIR DISKUS 500-50 mcg/dose dsdv^INHALE 1 DOSE BY MOUTH TWICE DAILY^Disp: ^Rfl: montelukast (SINGULAIR) 10 mg tablet^Take 10 mg by mouth daily at bedtime.^Disp: ^Rfl: cyclobenzaprine (FLEXERIL) 5 mg tablet^Take 5 mg by mouth three times daily as needed.^Disp: ^Rfl: Azelastine 205.5 mcg (0.15 %) spry^^Disp: ^Rfl: lansoprazole (PREVACID) 15 mg capsule^Take 1 capsule by mouth once daily.^Disp: 30 capsule^Rfl: 2 rosuvastatin (CRESTOR) 5 mg tablet^Take 1 tablet by mouth once daily.^Disp: 90 tablet^Rfl: 1 losartan (COZAAR) 50 mg tablet^TAKE 1 & 1/2 (ONE & ONE-HALF) TABLETS BY MOUTH ONCE DAILY^Disp: 145 tablet^Rfl: 1 albuterol HFA (VENTOLIN HFA) 90 mcg/actuation inhaler^Inhale 2 Puffs as instructed every 4 hours asneeded for wheezing/shortness of breath.^Disp: 1 Inhaler^Rfl: 5 lidocaine (SALONPAS) 4 % patch^Apply as directed once daily.^Disp: ^Rfl: FLUTICASONE FUROATE NASAL^Use 1 [place] in the nose twice daily as needed.^Disp: ^Rfl: denosumab (PROLIA) 60 mg/mL syrg^Inject 60 mg subcutaneously one time only.^Disp: ^Rfl: Cholecalciferol, Vitamin D3, 25 mcg (1,000 unit) cap^Vitamin D^Disp: ^Rfl: acetaminophen (TYLENOL) 500 mg tablet^Take 500 mg by mouth every 8 hours as needed.^Disp: ^Rfl: CALCIUM CARBONATE (CALCIUM 500 ORAL)^Take by mouth.^Disp: ^Rfl: clopidogrel (PLAVIX) 75 mg ORAL Tab^ Take one(1) tablet daily.^Disp: ^Rfl: 0 SYNTHROID 112 MCG TAB^Take one(1) tablet daily except tuesday^Disp: ^Rfl: 0 FAMILY HISTORY Problem Relation Age of Onset Cerebral Embolism Mother Osteoporosis Mother other (spinal stenosis) Mother other (depression) Mother other (cva) Mother other (depression) Father other (tramatic brain syndrome) Father s/p MVA other (aplastic thyroid tumor) Sister Depression Brother Stroke Maternal Grandfather Colon Cancer No Family History Employer And Job Title: None on file Years Of Education Completed: Not specified Marital Status: with 3 children Social History Tobacco Use Smoking status: Former Packs/day: 0.50 Years: 8.00 Pack years: 4.00 Types: Cigarettes Smokeless tobacco: Never Tobacco comments: quit in 1969 Vaping Use Vaping Use: Never used Substance Use Topics Alcohol use: Yes Comment: 1-2 times per week Drug use: No Review of Systems: Review of Systems HENT: Positive for voice change. Respiratory: Positive for cough and wheezing. Gastrointestinal: Change in Bowel Habits All other systems reviewed and are negative. Are you taking any blood thinners? Yes, Plavix Physical Examination: BP 122/74 Pulse 80 Ht 5' 3 (1.60m) Wt 145 lb 3.2 oz (65.9kg) BMI 25.73 kg/(m^2). Physical Exam Constitutional: General: She is not in acute distress. Appearance: Normal appearance. She is normal weight. She is not ill-appearing, toxic-appearing or diaphoretic. HENT: Head: Normocephalic and atraumatic. Nose: Nose normal. Eyes: General: No scleral icterus. Right eye: No discharge. Left eye: No discharge. Extraocular Movements: Extraocular movements intact. Conjunctiva/sclera: Conjunctivae normal. Pupils: Pupils are equal, round, and reactive to light. Cardiovascular: Rate and Rhythm: Normal rate and regular rhythm. Pulses: Normal pulses. Heart sounds: Normal heart sounds. No murmur heard. No friction rub. No gallop. Pulmonary: Effort: No respiratory distress. Breath sounds: Normal breath sounds. No stridor. No wheezing, rhonchi or rales. Chest: Chest wall: No tenderness. Abdominal: General: Abdomen is flat. Bowel sounds are normal. There is no distension. Palpations: Abdomen is soft. There is no mass. Tenderness: There is no abdominal tenderness. There is no right CVA tenderness, left CVA tenderness, guarding or rebound. Hernia: No hernia is present. Musculoskeletal: General: Normal range of motion. Cervical back: Normal range of motion and neck supple. Skin: General: Skin is warm and dry. Neurological: General: No focal deficit present. Mental Status: She is alert and oriented to person, place, and time. Psychiatric: Mood and Affect: Mood normal. Behavior: Behavior normal. Assessment/Plan (K21.9) Gastroesophageal reflux disease, unspecified whether esophagitis present (primary encounterdiagnosis) (R49.0) Hoarseness, chronic (K59.09) Other constipation 1. Gastroesophageal reflux disease, unspecified whether esophagitis present - EGD DIAGNOSTIC; Future - Continue Prevacid 15 daily - Plan for EGD to assess for signs of active GERD that could be contributing to hoarseness - Discussed gastritis precautions Recommend high protein, high fiber diet. Promotion of salivation through oral lozenges/chewing gum Drink plenty of water Avoid NSAIDs (such as Advil, Ibuprofen, Excedrin, Mobic), tobacco, alcohol, carbonated beverages, caffeine, chocolate, tomato based sauces, spicy/fatty foods, and peppermint Avoid eating less than 3 hours before bed. Elevate the head of the bed 6 inches, or invest in a wedge pillow. Laying on left side with head elevated may help alleviate reflux symptoms. 2. Hoarseness, chronic - EGD DIAGNOSTIC; Future 3. Other constipation - Drink around 64 oz water daily - Benefiber daily: 2 teaspoons added to 8 ounces of water up to 3 times daily. I spent a total of 20 minutes on the date of the service which included preparing to see the patient, [id number] patient care, completing clinical documentation, obtaining and/or reviewing separately obtained history, performing a medically appropriate examination, counseling and educating the pat ient/family/caregiver, ordering medications, tests, or procedures, communicating with other HCPs (not separately reported), independently interpreting results (not separately reported), communicatingresults to the patient/family/caregiver, and care coordination (not separately reported). Delia Mckeon PA-C July 26, 2022 9:25 AM documented in this [facility]10-[facility] History of Present illness Narrative* Quita Barth APRN.WEIGHT ANALYST - 05/25/2022 8:50 AM EDT SUBJECTIVE: Chiara Croft presents to [facility] for a follow up appointment for a new right hip pain. Since the last visit, Chiara Croft states the pain is new. Current pain intensity is 6 on a scale of 0-10. Pain located in the right buttocks Pain described as achy, sharp, and stabbing The patient denies numbness and tingling. Symptoms interfere with walking and sitting. Pain is exacerbated by bending over and twisting. Pain is mitigated by unknown. The patient is not currently receiving medications through the [facility]. REVIEW OF SYSTEMS: Constitutional: (-) Weight Gain (-) Weight Loss (+) Fatigue Cardiovascular: (-) hx heart surgery (-) Pacemaker Respiratory: (-) Shortness of Breath (-) Cough (+) Snoring Gastrointestinal: (-) Incontinence (-) Diarrhea (-) Constipation (-) Nausea/Vomiting Endocrine: (+) Thyroid Disorder (-) Diabetes Hematologic: (+) Prolonged Bleeding (+) Easy Bruising Genitourinary: (-) Incontinence (-) Frequency (-) Urinary Urgency Skin: (-) Open sores/wound Neurologic: (-) Headache (-) Double Vision Psychiatric: (-) Depression (-) Anxiety (-) Personal History of Alcohol or Substance Abuse (+) Family History of Alcohol or Substance Abuse CHIEF COMPLAINT:Patient presents with: Low Back Pain OBJECTIVE: Pulse 73 Wt 145 lb 11.2 oz (66.1kg) SpO2 99% PHYSICAL EXAMINATION: General appearance: Well appearing, in no acute distress, alert and oriented x3 Skin: Skin color, texture, turgor normal, no rashes or lesions Neck: No pain to palpation over the cervical paraspinous muscles. No pain with neck flexion, extension, or lateral flexion Cardiovascular: Regular, rate and rhythm Lungs: Normal respiratory rate and rhythm, Lungs clear to auscultation Back: Intact range of motion without pain reproduction. Facet:neg facet loading Straight Leg Raise: sitting neg SI JOINT: neg PSIS tenderness, neg Tenzin's, neg Sacral thrust. Spine: DeniesTenderness on palpation: Lumbar/Pelvic none Extremities: No deformities, edema, or skin discoloration. Good capillary refill. Musculoskeletal: No Joint pain, no edema , no extremity tenderness Neuro: No loss of sensation is noted. Motor skills intact Station and Gait: Normal stance, normal gait. Motor: Exhibits full strength in all four extremities. Trigger points: right piriformis and right hamstring muscles. ASSESSMENT: Assessment : Patient presents for a follow-up visit Patient reports about 3 weeks ago she was bending over and felt a sharp stabbing pain in her right buttocks that radiated down into the hamstring She is using salon pas patch Today we discussed hamstring and piriformis muscle stretches Discussed starting a muscle relaxer, baclofen as needed Discussed that we may consider a right piriformis injection with Dr. Calle Patient reports she continues to have improvement from the bilateral L5-S1 RFA from December 2021 but the pain is slowly starting to return. Discussed that we may repeat the RFA if needed in September 2022 Patient has a history of a spinal fusion at L3-5 Encounter Diagnosis ICD-10-CM 1. History of lumbar spinal fusion Z98.1 2. Piriformis muscle pain M79.18 3. Myalgia M79.10 PDMP website checked and validated. All prescriptions have been APPROPRIATELY filled. No suspiciousactivity was identified. 05/25/2022 by Quita Barth APRN.WEIGHT ANALYST Narcotic Agreement reviewed and signed?: N/A on May 25, 2022 The pain panel was N/A Discussion: A discussion was entertained regarding multicomponent back pain source. Discussed conservative options and focus on improvement of function. Discussed the rationale behind interventional approach andhow it can facilitate improvement of pain but also diagnostic information that procedures provide. L jazmin term use of any opioid pain medication is discouraged in chronic benign pain. PLAN: Injection history was reviewed. Medication use and compliance were reviewed. 1. Continue medication management through the Pain [facility] Center 2. The following approved medication requests have been transmitted electronically. Requested Prescriptions Signed Prescriptions Disp Refills baclofen (LIORESAL) 10 mg tablet 60 tablet 0 Sig: Take 1 tablet by mouth twice daily as needed. 3. Interventional procedure options discussed. Consider right piriformis injection with Dr. Calle 4. Encouraged regular home exercise program. Handout given 5) F/U in as needed. Discussed update in 2 weeks I spent a total of 20 minutes on the date of the service which included preparing to see the patient, [id number] patient care, completing clinical documentation, performing a medically appropriate examination, and ordering medications, tests, or procedures. The above plan and management options were discussed at length with patient. Patient is in agreement with the above and verbalized understanding. Quita Barth APRN, CNP May 25, 2022 documented in this encounterD[facility]09-29-2022 History of Present illness Narrative* Red Tom MD - 05/20/2022 9:53 AM EDT HPI Chiara Croft is a 76 year old female who presents with chronic cough. Patient has had chronic cough for some time patient seen in consultation for Angie Aguirre CNP. Patient was seen by ENT previously and placed on Prevacid for some time patient really does not note any improvement with her cough patient does clear her throat often patient is noting hoarseness as well ROS General Weight loss: No Fatigue: No Night sweats:No Cardiac Chest pain:No Fast heart rate:No Swelling in the feet:No Respiratory Short of breath:No Cough:No Wheezing:No Gastrointestinal Nausea:No Vomiting:No Indigestion:No Past medical history, family history, and social history reviewed. PE There were no vitals taken for this visit. General: Patient is awake, alert, NAD. Voice is normal. Skin: normal Eyes: Extraocular motion and Gaze is normal. Ears: Right external auditory canal is normal. TMJ: normal. Right tympanic membranes normal. Left external auditory canal is normal. Left tympanic membrane normal. Nose: Septum is normal. Turbinates are normal. Nasopharynx:normal Oral Cavity/Oropharynx: Lips normal Dentition normal Tongue normal. Tonsils normal. Palate and uvula normal. Pharynx posterior normal Hypopharynx: Base of tongue normal Pyriform sinus normal. Larynx: Vocal cords normal. Epiglottis normal. Post cricoid normal. Salivary glands: Parotid normal. Submandibular and sublingual normal. Thyroid: normal. Lymphatic/Neck: Lymph nodes normal. Neurologic: Facial nerve normal. ASSESSMENT/PLAN: 1. Chronic cough - ICD9: 786.2, ICD10: R05.3 (primary diagnosis) 2. Hoarseness - ICD9: 784.42, ICD10: R49.0 Discontinue Prevacid consider laryngology referral patient is going to see pulmonary and they will decide if maybe they can try Singulair versus Elavil probably should have a chest x-ray will defer to pulmonary Red Tom MD Findings will be communicated to the referring physician via mail or electronic medical record. documented in this [facility] History of Present illness Narrative* Albin Balderrama V, DO - 04/28/2022 2:20 PM EDT Chiara Croft presents with pain and painful movement in the right wrist. Pain radiates to, rightthumb. Symptoms began 3 weeks ago and since then have been present daily. The pain is rated as 5 pito scale of 1-10 . Symptoms are not a result of an injury. She was treated for de Quervain's tenosynovitis with injection and splinting 7 months ago. Symptomsimproved at that time. PAST MEDICAL HISTORY Diagnosis Date Abdominal pain Degenerative disc disease Depression Disorder of bone and cartilage, unspecified Hypothyroid Intrinsic asthma Mixed hyperlipidemia Hyperlipidemia Osteoarthrosis, unspecified whether generalized or localized, other specified sites PMH - PAST MEDICAL HISTORY OF CVA with weakness left side PMH - PAST MEDICAL HISTORY OF 2000 left cervical radiculopathy PMH - PAST MEDICAL HISTORY OF 2003 right rib fracture PMH - PAST MEDICAL HISTORY OF 2005 right shoulder impingement syndrome Spinal stenosis Stroke (HCC) 2005 Unspecified hypothyroidism PAST SURGICAL HISTORY Procedure Laterality Date APPENDECTOMY 1960 CATARACT EXTRACTION HX Bilateral COLONOSCOPY N/A 09/15/2016 MAC EPIDURAL SITE SPECIFY lumbar spine PAST SURGICAL HISTORY OF 1976 thyroidectomy for toxic goiter PAST SURGICAL HISTORY OF 2016 lumbar fusion TONSILLECTOMY PRIMARY/SECONDARY <AGE 11 Tonsillectomy Current Outpatient Medications on File Prior to Visit Medication Sig fluticasone-vilanterol (BREO ELLIPTA) 200-25 mcg/dose inhaler Inhale 1 Inhalation as instructed once daily. Inhale one puff once daily. DO NOT CLICK OPEN UNTIL READY FOR DOSE losartan (COZAAR) 50 mg tablet TAKE 1 & 1/2 (ONE & ONE-HALF) TABLETS BY MOUTH ONCE DAILY albuterol HFA (VENTOLIN HFA) 90 mcg/actuation inhaler Inhale 2 Puffs as instructed every 4 hours asneeded for wheezing/shortness of breath. lansoprazole (PREVACID) 15 mg capsule Take 1 capsule by mouth once daily. lidocaine (SALONPAS) 4 % patch Apply as directed once daily. FLUTICASONE FUROATE NASAL Use 1 [place] in the nose twice daily as needed. denosumab (PROLIA) 60 mg/mL syrg Inject 60 mg subcutaneously one time only. azelastine (ASTELIN,ASTEPRO) 0.1% nasal spray azelastine 137 mcg (0.1 %) nasal spray aerosol Cholecalciferol, Vitamin D3, 25 mcg (1,000 unit) cap Vitamin D CALCIUM CARBONATE (CALCIUM 500 ORAL) Take by mouth. rosuvastatin (CRESTOR) 5 mg tablet Take 5 mg by mouth once daily. clopidogrel (PLAVIX) 75 mg ORAL Tab Take one(1) tablet daily. SYNTHROID 112 MCG TAB Take one(1) tablet daily except tuesday loratadine (CLARITIN) 10 mg tablet Take 10 mg by mouth as needed. omega-3 fatty acids (FISH OIL CONCENTRATE ORAL) Take 1 capsule by mouth once daily. HYDROcodone-acetaminophen (NORCO) 5-325 mg per tablet hydrocodone 5 mg- acetaminophen 325 mg tablet acetaminophen (TYLENOL EXTRA STRENGTH) 500 mg tablet Take 500 mg by mouth every 8 hours as needed. Zinc 50 mg tab Take by mouth once daily. (Patient not taking: Reported on 04/28/2022) Current Facility-Administered Medications on File Prior to Visit Medication denosumab 60 mg injection (PROLIA) Physical Exam Findings: General exam: Normal, Extremeties right wrist and hand shows no significant redness soft tissue swelling or rashes. Thereis tenderness over the radial styloid with direct palpation and with resisted wrist and thumb extension. Dudley test is positive. Assessment: De Quervain's tenosynovitis right wrist Plan: 1. Patient Instructions: New thumb splint issued to be worn during the day and at bedtime if necessary for the next 7 to 10 days 2. PROCEDURE: INJECTION The risk, benefits and alternatives of injection and no injection therapy were discussed. Personnelwere discussed and the patient consented for an injection. The patient has been identified by name and birthdate. The injection site was identified, marked and prepped with a alcohol swab. Time out completed. The first dorsal wrist compartment was injected with a 25 gauge needle with 1/2cc Celestone (3 mg), and 1/2cc xylocaine plain 1%. The injection site was then dressed with a bandaid. The patient tolerated the injection well. The patient was instructed to call the office if any adverse localeffects occurred or any if any questions or concerns arise. Albin Balderrama DO * Andra Goldstein Ma - 04/28/2022 2:03 PM EDT AMB ROOMING INTAKE FLOWSHEET DATA Risk Screening Do you have concerns about personal safety or safety in the home?: No Pain Pain Level: 5 Pain Location: Wrist-Right Description: Sharp, Burning, Aching Duration Amount of Time: 3 Duration Units: Weeks Frequency: Intermittent Intervention/Comfort measure: Splinting documented in this encounterD[facility]07-19-2022 History of Present illness Narrative* Valentine Munoz LPN - 03/09/2022 10:27 AM EDT Patient presents for Prolia injection. Denies any problems at this time. Patient instructed on any SE of medication, verbalized understanding and agreed to proceed with treatment. Tolerated injectionwell. Valentine Munoz LPN documented in this encounterD[facility] Center07-13-2022 History of Present illness Narrative* Quita Barth APRN.WEIGHT ANALYST - 03/03/2022 8:10 AM EDT SUBJECTIVE: Chiara PuriEnriqueta presents to [facility] for a follow up appointment for lower back pain. Since the last visit, Chiara Enriqueta states the pain has been worse. Current pain intensity is 4 on a scale of 0-10. Pain located in Back area and does not radiate. Pain described as aching and dull The patient Denies numbness and tingling. Symptoms interfere with walking and sitting. Pain is exacerbated by getting up from sitting. Pain is mitigated by lying down. The patient is overall improved with the injections in the past. The medications are ineffective. The patient states the last dose of . Lidoerm patches Was put on this morning. REVIEW OF SYSTEMS: Constitutional: (-) Weight Gain (-) Weight Loss (+) Fatigue Cardiovascular: (-) hx heart surgery (-) Pacemaker Respiratory: (-) Shortness of Breath (-) Cough (+) Snoring Gastrointestinal: (-) Incontinence (-) Diarrhea (-) Constipation (-) Nausea/Vomiting Endocrine: (+) Thyroid Disorder (-) Diabetes Hematologic: (+) Prolonged Bleeding (+) Easy Bruising Genitourinary: (-) Incontinence (-) Frequency (-) Urinary Urgency Skin: (-) Open sores/wound Neurologic: (-) Headache (-) Double Vision Psychiatric: (-) Depression (-) Anxiety (-) Personal History of Alcohol or Substance Abuse (+) Family History of Alcohol or Substance Abuse CHIEF COMPLAINT:Patient presents with: Injection Followup OBJECTIVE: Pulse 75 Ht 5' 3 (1.60m) Wt 144 lb 4.8 oz (65.5kg) SpO2 98% BMI 25.57 kg/(m^2). PHYSICAL EXAMINATION: General appearance: Well appearing, in no acute distress, alert and oriented x3 Skin: Skin color, texture, turgor normal, no rashes or lesions Neck: No pain to palpation over the cervical paraspinous muscles. No pain with neck flexion, extension, or lateral flexion Cardiovascular: Regular, rate and rhythm Lungs: Normal respiratory rate and rhythm, Lungs clear to auscultation Back: Intact range of motion without pain reproduction. Spine: DeniesTenderness on palpation: Lumbar-axial Extremities: No deformities, edema, or skin discoloration. Good capillary refill. Musculoskeletal: No Joint pain, no edema , no extremity tenderness Neuro: No loss of sensation is noted. Motor skills intact Station and Gait: Normal stance, normal gait. Motor: Exhibits full strength in all four extremities. Trigger points: none and piriformis muscle. ASSESSMENT: Assessment : Patient presents for an injection follow-up Patient had a bilateral L5-S1 RFA on 01-19-2022 reports 95% improvement Patient reports lower back pain with an achy pain in the anterior thighs Patient has completed x3 physical therapy sessions Patient reports a new pain in the bilateral glutes. She describes the pain as deep, achy and constant Patient reports that she walks 5 times a week 3 miles which takes her an hour Discussed piriformis exercises today. May consider piriformis injection with Dr. Calle if pain persists Encounter Diagnosis ICD-10-CM 1. Lumbar spondylosis M47.816 2. Lumbar facet arthropathy M47.816 3. Postlaminectomy syndrome M96.1 4. History of lumbar spinal fusion Z98.1 PDMP website checked and validated. All prescriptions have been APPROPRIATELY filled. No suspiciousactivity was identified. 03/03/2022 by Quita Barth APRN.SAURABH Narcotic Agreement reviewed and signed?: N/A on March 03, 2022 The pain panel was N/A PLAN: Injection history was reviewed. Medication use and compliance were reviewed. 1. No medications selected for refill. 2. Interventional procedure options discussed. Consider piriformis injection/TPI if pain persists 3. Encouraged regular home exercise program. Recommended and demonstrated piriformis a stretches 4) F/U in prn I spent a total of 20 minutes on the date of the service which included preparing to see the patient, [id number] patient care, completing clinical documentation, performing a medically appropriate examination and ordering medications, tests, or procedures. The above plan and management options were discussed at length with patient. Patient is in agreement with the above and verbalized understanding. Quita Barth APRN, SAURABH March 03, 2022 documented in this encounterD[facility]06-17-2022 History of Present illness Narrative* Reza Valerio, PT - 02/05/2022 9:41 AM EDT Episode Visit Count: 3 Therapist That Will Oversee The Plan Of Care: Reza Valerio Start of Care Date: 01/15/22 Onset Date: 08/22/16 (approximately) Plan of Care Certification Date: 01/15/22 Next Certification Due Date: 02/19/22 Patient Identified by Name and Date of : Yes REHABILITATION AND SPORTS THERAPY PHYSICAL THERAPY TREATMENT NOTE ASSESSMENT: Chiara Croft tolerated the session with no issues. She demonstrated difficulty with prone opp arm/leg lift. The patient will continue to benefit from ongoing skilled physical therapy to progress toward set goals. PLAN FOR NEXT VISIT: Continue to strengthen multifidi SUBJECTIVE: Patient Reason for Visit: Pt states the prone exercise bothered her and so she would like to not do the exercise. Pain: Pain Pain Level: 3 Pain Location: Back Post Treatment Pain Post Treatment Pain Location: Back OBJECTIVE MEASURES WITH LEVEL OF FUNCTION: Hip flexor flexibility WNL bilat TREATMENT: Therapeutic Exercise: 1: DKTC x 60 sec x 3 2: Seated Pal-off 3 x 10 each side 3: Seated resisted lumbar ext GTB 2 x 20 reps 4: Discussed modification to the HEP to prevent increased pain/symptoms Skilled Intervention: Patient was educated in proper exercise technique and purpose for exercises. Manual Therapy: 1: STM over R lumbar paraspinals 2: Manual stretching of the R Lumbar paraspinals Skilled Intervention: Manual skills to improve joint mobility, ROM, and decrease pain. Utilized anatomy knowledge of the therapist, and assessment of patient's response to intervention. Billing Therapeutic Exercise Treatment Minutes: 24 Manual TherapyTreatment Minutes: 17 Total Treatment Time Minutes (timed/untimed): 41 Reza Valerio PT documented in this encounterD[facility] Center06-10-2022 History of Present illness Narrative* Reza Valerio PT - 01/29/2022 9:48 AM EDT Episode Visit Count: 2 Therapist That Will Oversee The Plan Of Care: Reza Valerio Start of Care Date: 01/15/22 Onset Date: 08/22/16 (approximately) Plan of Care Certification Date: 01/15/22 Next Certification Due Date: 02/19/22 Patient Identified by Name and Date of : Yes REHABILITATION AND SPORTS THERAPY PHYSICAL THERAPY TREATMENT NOTE ASSESSMENT: Chiara Croft tolerated the session with no issues. She demonstrated improvements in pain with exercises that lessened with increased reps. The patient will continue to benefit from ongoing skilled physical therapy to progress toward set goals. PLAN FOR NEXT VISIT: Test hip and quad flexibility. assess reaction to HEP. SUBJECTIVE: Patient Reason for Visit: The nerve ablation has helped the lower back. The stretches has taken some of the pain out of the middle back. Pain: Pain Pain Level: 3 Pain Location: Back Post Treatment Pain Post Treatment Pain Location: Back OBJECTIVE MEASURES WITH LEVEL OF FUNCTION: Lumbar Spine AROM Lumbar Flexion: Normal;Increased pain Lumbar Extension: Moderate limitation;Increased pain Increased rotation with LLE hip ext showing poor motor control/strength of the R LB TREATMENT: Therapeutic Exercise: 1: Prone opp arm/leg lift (R arm and L leg) 3 x 10 reps 2: Bridge x 10 reps (No pain but pt reports pain in past with this that sets in later in the day orthe next day) 3: Hooklying hip ER VTB 3 x 10 reps 4: Discussed the benefits of core and hip strengthening for supporting the lumbar spine and SIJ to decrease pain. Skilled Intervention: Patient was educated in proper exercise technique and purpose for exercises. Correct performance of therapeutic exercises was facilitated with verbal and visual cuing. Billing Therapeutic Exercise Treatment Minutes: 38 Total Treatment Time Minutes (timed/untimed): 38 Reza Valerio PT documented in this encounterDiley [facility] Center06-03-2022 Miscellaneous Notes* Telephone Encounter - Angie Aguirre APRN.CNP - 01/22/2022 9:04 AM EDT Order placed. Please order and help schedule a nurse visit. Angie Aguirre APRN.SAURABH * Telephone Encounter - Sasha Ma Ma - 01/21/2022 10:[address] order, then have pt schedule nurse visit. We order the prolia for the pt. Valentine Forde know, and she orders. documented in this encounterDiley [facility] Center05-20-2022 Miscellaneous Notes* Telephone Encounter - Camille Alanis RN - 01/08/2022 8:51 AM EDT Patient has reviewed [employer] message Last read by Chiara Croft at 12:05 PM on 01/07/2022. Closing encounter * Telephone Encounter - Quita Barth APRN.CNP - 01/06/2022 9:[address] Gibson reviewed the images ordered today. She has degeneration and stenosis above the fusion He recommends proceeding with the bilateral L5-S1 Lumbar RFA scheduled for 01/19. He believes she may be experiencing spasms in the left lumbar paraspinals and recommends a couple weeks of PT and focus on stretches and exercises she can do at home. Patient would like a phone call to [phone] Gibson recommendations documented in this encounterDiley [facility] Center05-18-2022 History of Present illness Narrative* Quita Barth APRN.SAURABH - 01/06/2022 7:57 AM EDT SUBJECTIVE: Chiara Croft presents to [facility] Department for a follow up appointment for a new pain in her mid-low back area. Since the last visit, Chiara Croft states the pain has been different. Current pain intensity is4 on a scale of 0-10. Pain located in mid-low back area and radiates to the left side. Pain described as aching and sharp The patient Denies numbness and tingling. Symptoms interfere with physical activity, walking, sleeping, sitting, bathing, driving, cooking, household cleaning, lifting and social activities. Pain is exacerbated by activity and any movement. Pain is mitigated by lying down. The patient is not currently receiving medications through the [facility]. REVIEW OF SYSTEMS: Constitutional: (-) Weight Gain (-) Weight Loss (+) Fatigue Cardiovascular: (-) hx heart surgery (-) Pacemaker Respiratory: (-) Shortness of Breath (-) Cough (+) Snoring Gastrointestinal: (-) Incontinence (-) Diarrhea (-) Constipation (-) Nausea/Vomiting Endocrine: (+) Thyroid Disorder (-) Diabetes Hematologic: (+) Prolonged Bleeding (+) Easy Bruising Genitourinary: (-) Incontinence (-) Frequency (-) Urinary Urgency Skin: (-) Open sores/wound Neurologic: (-) Headache (-) Double Vision Psychiatric: (+) Depression (-) Anxiety (-) Personal History of Alcohol or Substance Abuse (+) Family History of Alcohol or Substance Abuse CHIEF COMPLAINT:Patient presents with: Back Pain OBJECTIVE: Pulse 77 Wt 142 lb 9.6 oz (64.7kg) SpO2 98% PHYSICAL EXAMINATION: General appearance: Well appearing, in no acute distress, alert and oriented x3 Skin: Skin color, texture, turgor normal, no rashes or lesions Neck: No pain to palpation over the cervical paraspinous muscles. No pain with neck flexion, extension, or lateral flexion Cardiovascular: Regular, rate and rhythm Lungs: Normal respiratory rate and rhythm, Lungs clear to auscultation Back: Intact range of motion with pain reproduction. Limited extension Facet: positive facet loading Left side L3 Spine: Reports Tenderness on palpation: Lumbar-axial and left paraspinals Extremities: No deformities, edema, or skin discoloration. Good capillary refill. Musculoskeletal: No Joint pain, no edema , no extremity tenderness Neuro: No loss of sensation is noted. Motor skills intact Station and Gait: Normal stance, normal gait. Motor: Exhibits full strength in all four extremities. Trigger points: left lumbosacral spine muscles. ASSESSMENT: Assessment : Patient presents for follow-up She had repeat bilateral L5-S1 facet injection on 12-15-2021 and reports 100% improvement She reports today that she has been having left-sided low back pain that radiates into the left flank She reports when she has a flare she is not able to sit or stand and the pain is constant which will cause nausea Patient reports that she was in a boot for a stress fracture in her right foot for about 8 weeks. She reports that her gait was off during those 8 weeks. She reports the boot has been off for 3 weeksand she still is experiencing the left- sided back pain Lumbar x-rays from 2019. Discussed updating images today and we will have Dr. Gibson review Patient has a history of a spinal fusion at L3-5 and laminectomy at L3-4 from July 2017. Patient is scheduled for a lumbar RFA on 01-19-2022. We will see if Dr. Gibson would like to do facet injections at the level above the fusion Encounter Diagnosis ICD-10-CM 1. Lumbar spondylosis M47.816 XR LUMBAR PARS DEFECT 4V AP/LAT/BOTH OBL XR LUMBAR LIMITED 2V FLEX/EXT 2. Lumbar facet arthropathy M47.816 3. Postlaminectomy syndrome M96.1 4. History of lumbar spinal fusion Z98.1 PDMP website checked and validated. All prescriptions have been APPROPRIATELY filled. No suspiciousactivity was identified. 01/06/2022 by Quita Barth APRN.CNP Narcotic Agreement reviewed and signed?: N/A on January 06, 2022 The pain panel was N/A PLAN: Injection history was reviewed. Medication use and compliance were reviewed. 1. Ordered lumbar xray 2. No medications selected for refill. 3. Interventional procedure options discussed. Consider left L3 facet injection 4. Encouraged regular home exercise program. 5) Will contact patient with xray results and recommendations I spent a total of 20 minutes on the date of the service which included preparing to see the patient, [id number] patient care, completing clinical documentation, performing a medically appropriate examination and ordering medications, tests, or procedures. The above plan and management options were discussed at length with patient. Patient is in agreement with the above and verbalized understanding. Quita Barth APRN, CNP January 06, 2022 documented in this encounterDiley [facility] Medical Center05-18-2022 History of Present illness Narrative* VALENTIN Glynn - 01/06/2022 7:20 AM EDT Radiology Service Progress Note PATIENT NAME: Chiara Croft DATE OF SERVICE: January 06, 2022 TIME: 8:48 AM PATIENT IDENTITY VERIFICATION COMPLETED USING TWO (2) IDENTIFIERS: Name and Date of confirmedby patient verbally. FALL SCREENING: Has the patient had 2 falls in the last year or 1 fall with injury or currently using an Ambulatory Assistive Device (Walker, Cane, Wheelchair, Crutches, etc.)? No PATIENT GENDER DATA: Female. status: : No status: NO. PATIENT RELEVANT IMPLANT DATA REVIEWED: Not Applicable RADIOLOGY DEPARTMENT: General X-ray: Exam(s) Completed: Spine X-Ray(s): Lumbar AP / LAT / L5-S1 / OBL / FLEX-EXT PERIPHERAL IV DATA: Not applicable SIGNED BY: VALENTIN Glynn January 06, 2022 8:48 AM documented in this encounterDiley [facility] Center05-11-2022 Miscellaneous Notes* Telephone Encounter - Quita Barth APRN.CNP - 12/30/2021 2:34 PM EDT Injection order signed off Patient is scheduled * Telephone Encounter - Camille Alanis RN - 12/29/2021 11:56 AM EDT Order pended for Bilateral L5-S1 Lumbar Facet Radiofrequency Ablations documented in this encounterDiley [facility] Medical Center04-27-2022 Instructions* Patient Instructions* Albin Balderrama V, DO - 12/16/2021 2:58 PM EDT Thank you for choosing the [facility] for your acute care needs. Express Care treats minor infections, rashes and injuries. It is our mission for our patients to be healthy. A primary care relationship with the physician allows for continuity of care, counseling, and maintenance of preventive health care needs. Express Care does not replace the relationship or need for a primary care physician. For information about establishing with a primary care physician or booking an appointment, please call [phone] or speak with any Patient Curb And Gutter Laborer. Hours: Tuesday through Tuesday 7:30 am to 7:00 pm. Tuesday and Tuesday: 8:00 am to 2:30 pm. documented in this encounterDiley Ridge Medical Center04-27-2022 History of Present illness Narrative* Albin Balderrama V, DO - 12/16/2021 2:54 PM EDT Chiara Croft presents with pain and painful movement in the right thumb. She had similar symptoms about 11 weeks ago, received a cortisone injection for de Quervain's tenosynovitis at time which helped quite significantly. She states this pain is a little bit different. It is more in the base ofthe thumb joint itself. . Symptoms began after doing a project at [employer] where she was repurpose seeing medication bottles, opened over 1000 pill bottles in 1 setting and since then have been presentdaily. PAST MEDICAL HISTORY Diagnosis Date Abdominal pain Degenerative disc disease Depression Disorder of bone and cartilage, unspecified Hypothyroid Intrinsic asthma Mixed hyperlipidemia Hyperlipidemia Osteoarthrosis, unspecified whether generalized or localized, other specified sites PMH - PAST MEDICAL HISTORY OF CVA with weakness left side PMH - PAST MEDICAL HISTORY OF 2000 left cervical radiculopathy PMH - PAST MEDICAL HISTORY OF 2003 right rib fracture PMH - PAST MEDICAL HISTORY OF 2005 right shoulder impingement syndrome Spinal stenosis Stroke (HCC) 2005 Unspecified hypothyroidism PAST SURGICAL HISTORY Procedure Laterality Date APPENDECTOMY 1959 CATARACT EXTRACTION HX Bilateral COLONOSCOPY N/A 09/15/2016 MAC EPIDURAL SITE SPECIFY lumbar spine PAST SURGICAL HISTORY OF 1976 thyroidectomy for toxic goiter PAST SURGICAL HISTORY OF 2016 lumbar fusion TONSILLECTOMY PRIMARY/SECONDARY <AGE 11 Tonsillectomy Current Outpatient Medications on File Prior to Visit Medication Sig loratadine (CLARITIN) 10 mg tablet Take 10 mg by mouth as needed. omega-3 fatty acids (FISH OIL CONCENTRATE ORAL) Take 1 capsule by mouth once daily. omeprazole (PRILOSEC) 20 mg capsule Take 20 mg by mouth once daily. losartan (COZAAR) 50 mg tablet TAKE 1 & 1/2 (ONE & ONE-HALF) TABLETS BY MOUTH ONCE DAILY lidocaine (LIDOCAINE PAIN RELIEF) 4 % patch Apply as directed once daily. FLUTICASONE FUROATE NASAL Use 1 [place] in the nose twice daily as needed. denosumab (PROLIA) 60 mg/mL syrg Inject 60 mg subcutaneously one time only. albuterol sulfate 90 mcg/actuation aepb Inhale as instructed as needed. azelastine (ASTELIN,ASTEPRO) 0.1% nasal spray azelastine 137 mcg (0.1 %) nasal spray aerosol HYDROcodone-acetaminophen (NORCO) 5-325 mg per tablet hydrocodone 5 mg- acetaminophen 325 mg tablet Cholecalciferol, Vitamin D3, (VITAMIN D) 1,000 unit cap Vitamin D acetaminophen (TYLENOL EXTRA STRENGTH) 500 mg tablet Take 500 mg by mouth every 8 hours as needed. CALCIUM CARBONATE (CALCIUM 500 ORAL) Take by mouth. rosuvastatin (CRESTOR) 5 mg tablet Take 5 mg by mouth once daily. Zinc 50 mg tab Take by mouth once daily. clopidogrel (PLAVIX) 75 mg ORAL Tab Take one(1) tablet daily. SYNTHROID 112 MCG TAB Take one(1) tablet daily except tuesday FLOVENT HFA 220 mcg/actuation inhaler (Patient not taking: Reported on 11/30/2021 ) No current facility-administered medications on file prior to visit. Physical Exam Findings: General exam: Normal, Extremeties Right thumb shows discomfort over the carpometacarpal joint with palpation. Discomfort is also shown with pincher grasp motion. There is mild tenderness over the radial styloid. Dudley test is negative. No focal sensory neural deficits noted. Assessment: Thumb pain, suspect carpometacarpal joint arthritis Plan: 1. Patient Instructions: Discussed options for treatment today which include bracing, activity modification, consider cortisone injection into the CMC joint She would like to proceed with the injection today 2. PROCEDURE: INJECTION The risk, benefits and alternatives of injection and no injection therapy were discussed. Personnelwere discussed and the patient consented for an injection. The patient has been identified by name and birthdate. The injection site was identified, marked and prepped with a alcohol swab. Time out completed. The right CMC joint was injected with a 30 gauge needle with 1/2cc Celestone (3 mg), and 1/2cc xylocaine plain 1%. The injection site was then dressed with a bandaid. The patient tolerated the injection well. The patient was instructed to call the office if any adverse local effects occurred or any if any questions or concerns arise. Albin Balderrama DO * Sara Yoo Ma - 12/16/2021 2:33 PM EDT Patient presents with: 10 weeks 5 days post visit DeQuervain tenosynovitis right rinaldi Intake information documented in the prior visit with Dr. Gibson yesterday. AMB ROOMING INTAKE FLOWSHEET DATA Pain Pain Location: (Right hand and wrist) Description: Sharp Duration Amount of Time: (Ongoing) Frequency: Intermittent Comments: thumb brace Patient states injection helped for 4-5 weeks. Wearing the thumb brace helps. documented in this encounterCleveland [id number] History of Present illness Narrative* Quita Barth APRN.WEIGHT ANALYST - 11/30/2021 12:57 PM EDT SUBJECTIVE: Chiara Croft presents to [facility] Department for a follow up appointment for previous injection. Since the last visit, Chiara Croft states the pain has been better/ improvement. Current pain intensity is 5 on a scale of 0-10. Pain located in Back area and does not radiate. Pain described as aching The patient Reports morning stiffness. Symptoms interfere with all of the above. Pain is exacerbated by sitting. Pain is mitigated by lying down, medications and heat. The patient is overall improved with the injections by 50%. The medications are partially effective. The patient states the last dose of Klondike is intermittent and 3 weeks ago, Lidoerm patches was taken this morning at 7 am. REVIEW OF SYSTEMS: Constitutional: (-) Weight Gain (+) Weight Loss (+) Fatigue Cardiovascular: (-) hx heart surgery (-) Pacemaker Respiratory: (-) Shortness of Breath (-) Cough (+) Snoring Gastrointestinal: (-) Incontinence (-) Diarrhea (-) Constipation (+) Nausea Endocrine: (+) Thyroid Disorder (-) Diabetes Hematologic: (+) Prolonged Bleeding (+) Easy Bruising Genitourinary: (-) Incontinence (-) Frequency (-) Urinary Urgency Skin: (-) Open sores/wound Neurologic: (-) Headache (-) Double Vision Psychiatric: (+) Depression (-) Anxiety (-) Personal History of Alcohol or Substance Abuse (+) Family History of Alcohol or Substance Abuse (step father) CHIEF COMPLAINT:Patient presents with: Follow Up OBJECTIVE: Ht 5' 3.5 (1.61m) Wt 142 lb 14.4 oz (64.8kg) BMI 24.91 kg/(m^2). PHYSICAL EXAMINATION: General appearance: Well appearing, in no acute distress, alert and oriented x3 Skin: Skin color, texture, turgor normal, no rashes or lesions Neck: No pain to palpation over the cervical paraspinous muscles. No pain with neck flexion, extension, or lateral flexion Cardiovascular: Regular, rate and rhythm Lungs: Normal respiratory rate and rhythm, Lungs clear to auscultation Back: Intact range of motion with pain reproduction. Facet: bilateral lumabr facet loading Spine: Reports Tenderness on palpation: Lumbar-axial Extremities: No deformities, edema, or skin discoloration. Good capillary refill. Musculoskeletal: No Joint pain, no edema , no extremity tenderness Neuro: No loss of sensation is noted. Motor skills intact Station and Gait: antalgic gait due to boot on right foot Motor: Exhibits full strength in all four extremities. ASSESSMENT: Assessment : Patient presents for an injection follow-up Patient had a bilateral L5-S1 facet injection on 10-20-21 and reports 50% improvement. She would liketo repeat. Consider RFA Patient has a history of chronic lower back pain, denies radicular symptoms Patient does have a boot on her right foot due to a stress fracture. She has 3 more weeks of wearing the boot Patient has a history of a previous lumbar fusion in [place] The patient was offered a surgery/procedure at a [facility] facility. The surgeon/proceduralist and patient have discussed in detail the risk of exposure to and/or potential harm posed by the COVID-19 virus with having a surgery/procedure at this time versus the risk of delaying the surgery/pr ocedure. It is not possible to know either the risk of delaying the surgery or procedure or chance of getting an infection with perfect accuracy, but a joint decision was made between the patient andthe surgeon/proceduralist to proceed at this time with the scheduled surgery/procedure as indicatedon the consent form. Encounter Diagnosis ICD-10-CM 1. Lumbar spondylosis M47.816 NJX DX/THER AGT PVRT FACET JT LMBR/SAC 1 LEVEL 2. Lumbar facet arthropathy M47.816 NJX DX/THER AGT PVRT FACET JT LMBR/SAC 1 LEVEL 3. Postlaminectomy syndrome M96.1 4. Chronic bilateral low back pain without sciatica M54.50 G89.29 PDMP website checked and validated. All prescriptions have been APPROPRIATELY filled. No suspiciousactivity was identified. 11/30/2021 by Quita Barth APRN.WEIGHT ANALYST Narcotic Agreement reviewed and signed?: N/A on November 30, 2021 The pain panel was N/A PLAN: Injection history was reviewed. Medication use and compliance were reviewed. 1. Reviewed procedural instructions and handout given 2. No medications selected for refill. 3. Interventional procedure options discussed. Ordered and scheduled repeat bilateral L5-S1 facet injection. Consider proceeding with RFA next 4. Encouraged regular home exercise program. 5) instructed patient to call 2 weeks after procedure to report percentage of improvement. If good improvement we will proceed with scheduling the RFA I spent a total of 20 minutes on the date of the service which included preparing to see the patient, [id number] patient care, completing clinical documentation, performing a medically appropriate examination and ordering medications, tests, or procedures. The above plan and management options were discussed at length with patient. Patient is in agreement with the above and verbalized understanding. Quita Barth APRN, SAURABH November 30, 2021 documented in this encounterD[facility]03-29-2022 Miscellaneous Notes* Telephone Encounter - Angie Aguirre APRN.CNP - 11/17/2021 11:27 AM EDT Noted. Angie Aguirre APRN.SAURABH * Telephone Encounter - Hari Prieto Ma - 11/16/2021 3:47 PM EDT Spoke with patient - states getting better but still having slight nausea which is less intense. Has been eating yogurt and taking probiotics. Patient will contact office if pain does not continue to subside. * Telephone Encounter - Adele Brooks LPN - 11/13/2021 1:57 PM EDT Patient telephoned. Message left to call back. Adele Brooks LPN * Telephone Encounter - Angie Aguirre APRN.CNP - 11/13/2021 1:13 PM EDT Can please let patient know that I received her ultrasound results, which looked okay. How is her stomach feeling? documented in this encounterDiley [facility] Center03-24-2022 History of Present illness Narrative* Jamila Argueta RDMS - 11/12/2021 1:45 PM EDT Radiology Service Progress Note PATIENT NAME: Chiara Croft DATE OF SERVICE: November 12, 2021 TIME: 2:16 PM PATIENT IDENTITY VERIFICATION COMPLETED USING TWO (2) IDENTIFIERS: Name and Date of confirmedby patient verbally. FALL SCREENING: Has the patient had 2 falls in the last year or 1 fall with injury or currently using an Ambulatory Assistive Device (Walker, Cane, Wheelchair, Crutches, etc.)? No PATIENT GENDER DATA: Female. status: : No status: N/A PATIENT RELEVANT IMPLANT DATA REVIEWED: Not Applicable RADIOLOGY DEPARTMENT: Ultrasound PERIPHERAL IV DATA: Not applicable SIGNED BY: Jamila Argueta RDMS RVT November 12, 2021 2:16 PM documented in this encounterDiley Ridge [facility] Center02-14-2022 Miscellaneous Notes* Telephone Encounter - Angie Aguirre APRN.CNP - 10/05/2021 5:27 PM EST Received a message regarding needing an appointment to establish care. Okay to set up in an appointment to establish care if patient would like. Angie Aguirre APRN.CNP documented in this encounterDiley Ridge [facility] Center01-25-2017 History of Past illness Narrative* Problem Noted Date Resolved Date RUQ abdominal pain 09/15/2016 09/15/2016 Nausea 09/15/2016 09/15/2016 Abnormal LFTs 09/15/2016 09/15/2016 documented as of this encounter (statuses as of 11/13/2021) [facility]01-25-2017 History of Past illness Narrative* Problem Noted Date Resolved Date RUQ abdominal pain 09/15/2016 09/15/2016 Nausea 09/15/2016 09/15/2016 Abnormal LFTs 09/15/2016 09/15/2016 documented as of this encounter (statuses as of 11/17/2021) [address] History of Past illness Narrative* Problem Noted Date Resolved Date RUQ abdominal pain 09/15/2016 09/15/2016 Nausea 09/15/2016 09/15/2016 Abnormal LFTs 09/15/2016 09/15/2016 documented as of this encounter (statuses as of 12/01/2021) [address] History of Past illness Narrative* Problem Noted Date Resolved Date RUQ abdominal pain 09/15/2016 09/15/2016 Nausea 09/15/2016 09/15/2016 Abnormal LFTs 09/15/2016 09/15/2016 documented as of this encounter (statuses as of 12/01/2021) [address] History of Past illness Narrative* Problem Noted Date Resolved Date RUQ abdominal pain 09/15/2016 09/15/2016 Nausea 09/15/2016 09/15/2016 Abnormal LFTs 09/15/2016 09/15/2016 documented as of this encounter (statuses as of 12/16/2021) [address]2017 History of Past illness Narrative* Problem Noted Date Resolved Date RUQ abdominal pain 09/15/2016 09/15/2016 Nausea 09/15/2016 09/15/2016 Abnormal LFTs 09/15/2016 09/15/2016 documented as of this encounter (statuses as of 12/28/2021) [address]2017 History of Past illness Narrative* Problem Noted Date Resolved Date RUQ abdominal pain 09/15/2016 09/15/2016 Nausea 09/15/2016 09/15/2016 Abnormal LFTs 09/15/2016 09/15/2016 documented as of this encounter (statuses as of 12/30/2021) [address] History of Past illness Narrative* Problem Noted Date Resolved Date RUQ abdominal pain 09/15/2016 09/15/2016 Nausea 09/15/2016 09/15/2016 Abnormal LFTs 09/15/2016 09/15/2016 documented as of this encounter (statuses as of 01/01/2022) [address]2017 History of Past illness Narrative* Problem Noted Date Resolved Date RUQ abdominal pain 09/15/2016 09/15/2016 Nausea 09/15/2016 09/15/2016 Abnormal LFTs 09/15/2016 09/15/2016 documented as of this encounter (statuses as of 01/06/2022) [address]2017 History of Past illness Narrative* Problem Noted Date Resolved Date RUQ abdominal pain 09/15/2016 09/15/2016 Nausea 09/15/2016 09/15/2016 Abnormal LFTs 09/15/2016 09/15/2016 documented as of this encounter (statuses as of 01/07/2022) [address]2017 History of Past illness Narrative* Problem Noted Date Resolved Date RUQ abdominal pain 09/15/2016 09/15/2016 Nausea 09/15/2016 09/15/2016 Abnormal LFTs 09/15/2016 09/15/2016 documented as of this encounter (statuses as of 01/08/2022) [address]2017 History of Past illness Narrative* Problem Noted Date Resolved Date RUQ abdominal pain 09/15/2016 09/15/2016 Nausea 09/15/2016 09/15/2016 Abnormal LFTs 09/15/2016 09/15/2016 documented as of this encounter (statuses as of 01/22/2022) [address]2017 History of Past illness Narrative* Problem Noted Date Resolved Date RUQ abdominal pain 09/15/2016 09/15/2016 Nausea 09/15/2016 09/15/2016 Abnormal LFTs 09/15/2016 09/15/2016 documented as of this encounter (statuses as of 01/29/2022) [address]2017 History of Past illness Narrative* Problem Noted Date Resolved Date RUQ abdominal pain 09/15/2016 09/15/2016 Nausea 09/15/2016 09/15/2016 Abnormal LFTs 09/15/2016 09/15/2016 documented as of this encounter (statuses as of 02/05/2022) [address]2017 History of Past illness Narrative* Problem Noted Date Resolved Date RUQ abdominal pain 09/15/2016 09/15/2016 Nausea 09/15/2016 09/15/2016 Abnormal LFTs 09/15/2016 09/15/2016 documented as of this encounter (statuses as of 03/03/2022) [address]2017 History of Past illness Narrative* Problem Noted Date Resolved Date RUQ abdominal pain 09/15/2016 09/15/2016 Nausea 09/15/2016 09/15/2016 Abnormal LFTs 09/15/2016 09/15/2016 documented as of this encounter (statuses as of 03/09/2022) [address]2017 History of Past illness Narrative* Problem Noted Date Resolved Date RUQ abdominal pain 09/15/2016 09/15/2016 Nausea 09/15/2016 09/15/2016 Abnormal LFTs 09/15/2016 09/15/2016 documented as of this encounter (statuses as of 04/28/2022) [address] History of Past illness Narrative* Problem Noted Date Resolved Date RUQ abdominal pain 09/15/2016 09/15/2016 Nausea 09/15/2016 09/15/2016 Abnormal LFTs 09/15/2016 09/15/2016 documented as of this encounter (statuses as of 05/20/2022) [address] History of Past illness Narrative* Problem Noted Date Resolved Date RUQ abdominal pain 09/15/2016 09/15/2016 Nausea 09/15/2016 09/15/2016 Abnormal LFTs 09/15/2016 09/15/2016 documented as of this encounter (statuses as of 05/25/2022) [address]2017 History of Past illness Narrative* Problem Noted Date Resolved Date RUQ abdominal pain 09/15/2016 09/15/2016 Nausea 09/15/2016 09/15/2016 Abnormal LFTs 09/15/2016 09/15/2016 documented as of this encounter (statuses as of 05/26/2022) [address] History of Past illness Narrative* Problem Noted Date Resolved Date RUQ abdominal pain 09/15/2016 09/15/2016 Nausea 09/15/2016 09/15/2016 Abnormal LFTs 09/15/2016 09/15/2016 documented as of this encounter (statuses as of 06/30/2022) [address]2017 History of Past illness Narrative* Problem Noted Date Resolved Date RUQ abdominal pain 09/15/2016 09/15/2016 Nausea 09/15/2016 09/15/2016 Abnormal LFTs 09/15/2016 09/15/2016 documented as of this encounter (statuses as of 07/26/2022) [address] History of Past illness Narrative* Problem Noted Date Resolved Date RUQ abdominal pain 09/15/2016 09/15/2016 Nausea 09/15/2016 09/15/2016 Abnormal LFTs 09/15/2016 09/15/2016 documented as of this encounter (statuses as of 08/25/2022) [address] History of Past illness Narrative* Problem Noted Date Resolved Date RUQ abdominal pain 09/15/2016 09/15/2016 Nausea 09/15/2016 09/15/2016 Abnormal LFTs 09/15/2016 09/15/2016 documented as of this encounter (statuses as of 08/25/2022) [address] History of Past illness Narrative* Problem Noted Date Resolved Date RUQ abdominal pain 09/15/2016 09/15/2016 Nausea 09/15/2016 09/15/2016 Abnormal LFTs 09/15/2016 09/15/2016 documented as of this encounter (statuses as of 08/25/2022) [place] [id number] History of Past illness Narrative* Problem Noted Date Resolved Date RUQ abdominal pain 09/15/2016 09/15/2016 Nausea 09/15/2016 09/15/2016 Abnormal LFTs 09/15/2016 09/15/2016 documented as of this encounter (statuses as of 08/25/2022) [address] History of Past illness Narrative* Problem Noted Date Resolved Date RUQ abdominal pain 09/15/2016 09/15/2016 Nausea 09/15/2016 09/15/2016 Abnormal LFTs 09/15/2016 09/15/2016 documented as of this encounter (statuses as of 08/27/2022) [address] History of Past illness Narrative* Problem Noted Date Resolved Date RUQ abdominal pain 09/15/2016 09/15/2016 Nausea 09/15/2016 09/15/2016 Abnormal LFTs 09/15/2016 09/15/2016 documented as of this encounter (statuses as of 08/28/2022) [address] History of Past illness Narrative* Problem Noted Date Resolved Date RUQ abdominal pain 09/15/2016 09/15/2016 Nausea 09/15/2016 09/15/2016 Abnormal LFTs 09/15/2016 09/15/2016 documented as of this encounter (statuses as of 09/03/2022) [address] History of Past illness Narrative* Problem Noted Date Resolved Date RUQ abdominal pain 09/15/2016 09/15/2016 Nausea 09/15/2016 09/15/2016 Abnormal LFTs 09/15/2016 09/15/2016 documented as of this encounter (statuses as of 09/06/2022) [address] History of Past illness Narrative* Problem Noted Date Resolved Date RUQ abdominal pain 09/15/2016 09/15/2016 Nausea 09/15/2016 09/15/2016 Abnormal LFTs 09/15/2016 09/15/2016 documented as of this encounter (statuses as of 09/06/2022) [address] History of Past illness Narrative* Problem Noted Date Resolved Date RUQ abdominal pain 09/15/2016 09/15/2016 Nausea 09/15/2016 09/15/2016 Abnormal LFTs 09/15/2016 09/15/2016 documented as of this encounter (statuses as of 09/09/2022) [address] History of Past illness Narrative* Problem Noted Date Resolved Date RUQ abdominal pain 09/15/2016 09/15/2016 Nausea 09/15/2016 09/15/2016 Abnormal LFTs 09/15/2016 09/15/2016 documented as of this encounter (statuses as of 09/10/2022) [address] History of Past illness Narrative* Problem Noted Date Resolved Date RUQ abdominal pain 09/15/2016 09/15/2016 Nausea 09/15/2016 09/15/2016 Abnormal LFTs 09/15/2016 09/15/2016 documented as of this encounter (statuses as of 09/15/2022) [address] History of Past illness Narrative* Problem Noted Date Resolved Date RUQ abdominal pain 09/15/2016 09/15/2016 Nausea 09/15/2016 09/15/2016 Abnormal LFTs 09/15/2016 09/15/2016 documented as of this encounter (statuses as of 09/17/2022) [address]2017 History of Past illness Narrative* Problem Noted Date Resolved Date RUQ abdominal pain 09/15/2016 09/15/2016 Nausea 09/15/2016 09/15/2016 Abnormal LFTs 09/15/2016 09/15/2016 documented as of this encounter (statuses as of 09/24/2022) [address] History of Past illness Narrative* Problem Noted Date Resolved Date RUQ abdominal pain 09/15/2016 09/15/2016 Nausea 09/15/2016 09/15/2016 Abnormal LFTs 09/15/2016 09/15/2016 documented as of this encounter (statuses as of 11/05/2022) [address]2017 History of Past illness Narrative* Problem Noted Date Resolved Date RUQ abdominal pain 09/15/2016 09/15/2016 Nausea 09/15/2016 09/15/2016 Abnormal LFTs 09/15/2016 09/15/2016 documented as of this encounter (statuses as of 11/09/2022) [address]2017 History of Past illness Narrative* Problem Noted Date Resolved Date RUQ abdominal pain 09/15/2016 09/15/2016 Nausea 09/15/2016 09/15/2016 Abnormal LFTs 09/15/2016 09/15/2016 documented as of this encounter (statuses as of 11/11/2022) [address]2017 History of Past illness Narrative* Problem Noted Date Resolved Date RUQ abdominal pain 09/15/2016 09/15/2016 Nausea 09/15/2016 09/15/2016 Abnormal LFTs 09/15/2016 09/15/2016 documented as of this encounter (statuses as of 11/16/2022) [address]2017 History of Past illness Narrative* Problem Noted Date Resolved Date RUQ abdominal pain 09/15/2016 09/15/2016 Nausea 09/15/2016 09/15/2016 Abnormal LFTs 09/15/2016 09/15/2016 documented as of this encounter (statuses as of 11/18/2022) [address]2017 History of Past illness Narrative* Problem Noted Date Resolved Date RUQ abdominal pain 09/15/2016 09/15/2016 Nausea 09/15/2016 09/15/2016 Abnormal LFTs 09/15/2016 09/15/2016 documented as of this encounter (statuses as of 11/22/2022) [address]2017 History of Past illness Narrative* Problem Noted Date Resolved Date RUQ abdominal pain 09/15/2016 09/15/2016 Nausea 09/15/2016 09/15/2016 Abnormal LFTs 09/15/2016 09/15/2016 documented as of this encounter (statuses as of 11/24/2022) [address] History of Past illness Narrative* Problem Noted Date Resolved Date RUQ abdominal pain 09/15/2016 09/15/2016 Nausea 09/15/2016 09/15/2016 Abnormal LFTs 09/15/2016 09/15/2016 documented as of this encounter (statuses as of 11/26/2022) [address] History of Past illness Narrative* Problem Noted Date Resolved Date RUQ abdominal pain 09/15/2016 09/15/2016 Nausea 09/15/2016 09/15/2016 Abnormal LFTs 09/15/2016 09/15/2016 documented as of this encounter (statuses as of 11/26/2022) [address] History of Past illness Narrative* Problem Noted Date Resolved Date RUQ abdominal pain 09/15/2016 09/15/2016 Nausea 09/15/2016 09/15/2016 Abnormal LFTs 09/15/2016 09/15/2016 documented as of this encounter (statuses as of 11/27/2022) [address] History of Past illness Narrative* Problem Noted Date Resolved Date RUQ abdominal pain 09/15/2016 09/15/2016 Nausea 09/15/2016 09/15/2016 Abnormal LFTs 09/15/2016 09/15/2016 documented as of this encounter (statuses as of 12/03/2022) [address] History of Past illness Narrative* Problem Noted Date Resolved Date RUQ abdominal pain 09/15/2016 09/15/2016 Nausea 09/15/2016 09/15/2016 Abnormal LFTs 09/15/2016 09/15/2016 documented as of this encounter (statuses as of 12/06/2022) [address] History of Past illness Narrative* Problem Noted Date Resolved Date RUQ abdominal pain 09/15/2016 09/15/2016 Nausea 09/15/2016 09/15/2016 Abnormal LFTs 09/15/2016 09/15/2016 documented as of this encounter (statuses as of 12/20/2022) [address] History of Past illness Narrative* Problem Noted Date Resolved Date RUQ abdominal pain 09/15/2016 09/15/2016 Nausea 09/15/2016 09/15/2016 Abnormal LFTs 09/15/2016 09/15/2016 documented as of this encounter (statuses as of 12/30/2022) [address] History of Past illness Narrative* Problem Noted Date Resolved Date RUQ abdominal pain 09/15/2016 09/15/2016 Nausea 09/15/2016 09/15/2016 Abnormal LFTs 09/15/2016 09/15/2016 documented as of this encounter (statuses as of 01/03/2023) [address] History of Past illness Narrative* Problem Noted Date Resolved Date RUQ abdominal pain 09/15/2016 09/15/2016 Nausea 09/15/2016 09/15/2016 Abnormal LFTs 09/15/2016 09/15/2016 documented as of this encounter (statuses as of 01/03/2023) [address] History of Past illness Narrative* Problem Noted Date Resolved Date RUQ abdominal pain 09/15/2016 09/15/2016 Nausea 09/15/2016 09/15/2016 Abnormal LFTs 09/15/2016 09/15/2016 documented as of this encounter (statuses as of 01/04/2023) [address] History of Past illness Narrative* Problem Noted Date Resolved Date RUQ abdominal pain 09/15/2016 09/15/2016 Nausea 09/15/2016 09/15/2016 Abnormal LFTs 09/15/2016 09/15/2016 documented as of this encounter (statuses as of 02/16/2023) [address] History of Past illness Narrative* Problem Noted Date Resolved Date RUQ abdominal pain 09/15/2016 09/15/2016 Nausea 09/15/2016 09/15/2016 Abnormal LFTs 09/15/2016 09/15/2016 documented as of this encounter (statuses as of 02/16/2023) [address] History of Past illness Narrative* Problem Noted Date Resolved Date RUQ abdominal pain 09/15/2016 09/15/2016 Nausea 09/15/2016 09/15/2016 Abnormal LFTs 09/15/2016 09/15/2016 documented as of this encounter (statuses as of 02/21/2023) [address] History of Past illness Narrative* Problem Noted Date Diagnosed Date Resolved Date RUQ abdominal pain 09/15/2016 7 Abnormal LFTs 09/15/2016 09/15/2016 documented as of this encounter (statuses as of 03/07/2023) [address] History of Past illness Narrative* Problem Noted Date Diagnosed Date Resolved Date RUQ abdominal pain 09/15/2016 7 Abnormal LFTs 09/15/2016 09/15/2016 documented as of this encounter (statuses as of 03/10/2023) [address] History of Past illness Narrative* Problem Noted Date Diagnosed Date Resolved Date RUQ abdominal pain 09/15/2016 7 Abnormal LFTs 09/15/2016 09/15/2016 documented as of this encounter (statuses as of 03/14/2023) [address]25-2017 History of Past illness Narrative* Problem Noted Date Diagnosed Date Resolved Date RUQ abdominal pain 09/15/2016 7 Abnormal LFTs 09/15/2016 09/15/2016 documented as of this encounter (statuses as of 03/17/2023) [facility]01-25-2017 History of Past illness Narrative* Problem Noted Date Diagnosed Date Resolved Date RUQ abdominal pain 09/15/2016 7 Abnormal LFTs 09/15/2016 09/15/2016 documented as of this encounter (statuses as of 03/24/2023) [address]25-2017 History of Past illness Narrative* Problem Noted Date Diagnosed Date Resolved Date RUQ abdominal pain 09/15/2016 7 Abnormal LFTs 09/15/2016 09/15/2016 documented as of this encounter (statuses as of 04/21/2023) [address]25-2017 History of Past illness Narrative* Problem Noted Date Diagnosed Date Resolved Date RUQ abdominal pain 09/15/2016 7 Abnormal LFTs 09/15/2016 09/15/2016 documented as of this encounter (statuses as of 04/21/2023) [address]25-2017 History of Past illness Narrative* Problem Noted Date Diagnosed Date Resolved Date RUQ abdominal pain 09/15/2016 7 Abnormal LFTs 09/15/2016 09/15/2016 documented as of this encounter (statuses as of 05/05/2023) [address]25-2017 History of Past illness Narrative* Problem Noted Date Diagnosed Date Resolved Date RUQ abdominal pain 09/15/2016 7 Abnormal LFTs 09/15/2016 09/15/2016 documented as of this encounter (statuses as of 05/13/2023) [address]25-2017 History of Past illness Narrative* Problem Noted Date Diagnosed Date Resolved Date RUQ abdominal pain 09/15/2016 7 Abnormal LFTs 09/15/2016 09/15/2016 documented as of this encounter (statuses as of 05/31/2023) [address]25-2017 History of Past illness Narrative* Problem Noted Date Diagnosed Date Resolved Date RUQ abdominal pain 09/15/2016 7 Abnormal LFTs 09/15/2016 09/15/2016 documented as of this encounter (statuses as of 06/01/2023) [address]25-2017 History of Past illness Narrative* Problem Noted Date Diagnosed Date Resolved Date RUQ abdominal pain 09/15/2016 7 Abnormal LFTs 09/15/2016 09/15/2016 documented as of this encounter (statuses as of 06/06/2023) [address]25-2017 History of Past illness Narrative* Problem Noted Date Diagnosed Date Resolved Date RUQ abdominal pain 09/15/2016 7 Abnormal LFTs 09/15/2016 09/15/2016 documented as of this encounter (statuses as of 06/06/2023) [address]25-2017 History of Past illness Narrative* Problem Noted Date Diagnosed Date Resolved Date RUQ abdominal pain 09/15/2016 7 Abnormal LFTs 09/15/2016 09/15/2016 documented as of this encounter (statuses as of 06/08/2023) [address]25-2017 History of Past illness Narrative* Problem Noted Date Diagnosed Date Resolved Date RUQ abdominal pain 09/15/2016 7 Abnormal LFTs 09/15/2016 09/15/2016 documented as of this encounter (statuses as of 06/10/2023) [facility]01-25-2017 History of Past illness Narrative* Problem Noted Date Diagnosed Date Resolved Date RUQ abdominal pain 09/15/2016 7 Abnormal LFTs 09/15/2016 09/15/2016 documented as of this encounter (statuses as of 06/10/2023) [facility]01-25-2017 History of Past illness Narrative* Problem Noted Date Diagnosed Date Resolved Date RUQ abdominal pain 09/15/2016 7 Abnormal LFTs 09/15/2016 09/15/2016 documented as of this encounter (statuses as of 06/10/2023) [facility]01-25-2017 History of Past illness Narrative* Problem Noted Date Diagnosed Date Resolved Date RUQ abdominal pain 09/15/2016 7 Abnormal LFTs 09/15/2016 09/15/2016 documented as of this encounter (statuses as of 06/17/2023) [address]25-2017 History of Past illness Narrative* Problem Noted Date Diagnosed Date Resolved Date RUQ abdominal pain 09/15/2016 7 Abnormal LFTs 09/15/2016 09/15/2016 documented as of this encounter (statuses as of 06/21/2023) [facility]01-25-2017 History of Past illness Narrative* Problem Noted Date Diagnosed Date Resolved Date RUQ abdominal pain 09/15/2016 7 Abnormal LFTs 09/15/2016 09/15/2016 documented as of this encounter (statuses as of 06/26/2023) [facility]01-25-2017 History of Past illness Narrative* Problem Noted Date Diagnosed Date Resolved Date RUQ abdominal pain 09/15/2016 7 Abnormal LFTs 09/15/2016 09/15/2016 documented as of this encounter (statuses as of 06/26/2023) [facility]01-25-2017 History of Past illness Narrative* Problem Noted Date Diagnosed Date Resolved Date RUQ abdominal pain 09/15/2016 7 Abnormal LFTs 09/15/2016 09/15/2016 documented as of this encounter (statuses as of 06/26/2023) [facility]01-25-2017 History of Past illness Narrative* Problem Noted Date Diagnosed Date Resolved Date RUQ abdominal pain 09/15/2016 7 Abnormal LFTs 09/15/2016 09/15/2016 documented as of this encounter (statuses as of 06/26/2023) [address]2017 History of Past illness Narrative* Problem Noted Date Diagnosed Date Resolved Date RUQ abdominal pain 09/15/2016 7 Abnormal LFTs 09/15/2016 09/15/2016 documented as of this encounter (statuses as of 07/06/2023) [address]2017 History of Past illness Narrative* Problem Noted Date Diagnosed Date Resolved Date RUQ abdominal pain 09/15/2016 7 Abnormal LFTs 09/15/2016 09/15/2016 documented as of this encounter (statuses as of 07/13/2023) [address]2017 History of Past illness Narrative* Problem Noted Date Diagnosed Date Resolved Date RUQ abdominal pain 09/15/2016 7 Abnormal LFTs 09/15/2016 09/15/2016 documented as of this encounter (statuses as of 07/18/2023) [address]2017 History of Past illness Narrative* Problem Noted Date Diagnosed Date Resolved Date RUQ abdominal pain 09/15/2016 7 Abnormal LFTs 09/15/2016 09/15/2016 documented as of this encounter (statuses as of 07/21/2023) [address]2017 History of Past illness Narrative* Problem Noted Date Diagnosed Date Resolved Date RUQ abdominal pain 09/15/2016 7 Abnormal LFTs 09/15/2016 09/15/2016 documented as of this encounter (statuses as of 07/26/2023) [address]2017 History of Past illness Narrative* Problem Noted Date Diagnosed Date Resolved Date RUQ abdominal pain 09/15/2016 7 Abnormal LFTs 09/15/2016 09/15/2016 documented as of this encounter (statuses as of 08/02/2023) [address]25-2017 History of Past illness Narrative* Problem Noted Date Diagnosed Date Resolved Date RUQ abdominal pain 09/15/2016 7 Abnormal LFTs 09/15/2016 09/15/2016 documented as of this encounter (statuses as of 08/02/2023) [address]25-2017 History of Past illness Narrative* Problem Noted Date Diagnosed Date Resolved Date RUQ abdominal pain 09/15/2016 7 Abnormal LFTs 09/15/2016 09/15/2016 documented as of this encounter (statuses as of 08/02/2023) [address]25-2017 History of Past illness Narrative* Problem Noted Date Diagnosed Date Resolved Date RUQ abdominal pain 09/15/2016 7 Abnormal LFTs 09/15/2016 09/15/2016 documented as of this encounter (statuses as of 09/30/2023) [address]25-2017 History of Past illness Narrative* Problem Noted Date Diagnosed Date Resolved Date RUQ abdominal pain 09/15/2016 7 Abnormal LFTs 09/15/2016 09/15/2016 documented as of this encounter (statuses as of 10/10/2023) [address]25-2017 History of Past illness Narrative* Problem Noted Date Diagnosed Date Resolved Date RUQ abdominal pain 09/15/2016 7 Abnormal LFTs 09/15/2016 09/15/2016 documented as of this encounter (statuses as of 10/12/2023) [address]25-2017 History of Past illness Narrative* Problem Noted Date Diagnosed Date Resolved Date RUQ abdominal pain 09/15/2016 7 Abnormal LFTs 09/15/2016 09/15/2016 documented as of this encounter (statuses as of 10/28/2023) [address]25-2017 History of Past illness Narrative* Problem Noted Date Diagnosed Date Resolved Date RUQ abdominal pain 09/15/2016 7 Abnormal LFTs 09/15/2016 09/15/2016 documented as of this encounter (statuses as of 11/01/2023) [address]25-2017 History of Past illness Narrative* Problem Noted Date Diagnosed Date Resolved Date RUQ abdominal pain 09/15/2016 7 Abnormal LFTs 09/15/2016 09/15/2016 documented as of this encounter (statuses as of 11/04/2023) [address]25-2017 History of Past illness Narrative* Problem Noted Date Diagnosed Date Resolved Date RUQ abdominal pain 09/15/2016 7 Abnormal LFTs 09/15/2016 09/15/2016 documented as of this encounter (statuses as of 11/10/2023) [address]25-2017 History of Past illness Narrative* Problem Noted Date Diagnosed Date Resolved Date RUQ abdominal pain 09/15/2016 7 Abnormal LFTs 09/15/2016 09/15/2016 documented as of this encounter (statuses as of 11/15/2023) [address]25-2017 History of Past illness Narrative* Problem Noted Date Diagnosed Date Resolved Date RUQ abdominal pain 09/15/2016 7 Abnormal LFTs 09/15/2016 09/15/2016 documented as of this encounter (statuses as of 11/15/2023) [address]25-2017 History of Past illness Narrative* Problem Noted Date Diagnosed Date Resolved Date RUQ abdominal pain 09/15/2016 7 Abnormal LFTs 09/15/2016 09/15/2016 documented as of this encounter (statuses as of 11/28/2023) [address]25-2017 History of Past illness Narrative* Problem Noted Date Diagnosed Date Resolved Date RUQ abdominal pain 09/15/2016 7 Abnormal LFTs 09/15/2016 09/15/2016 documented as of this encounter (statuses as of 12/01/2023) [address]25-2017 History of Past illness Narrative* Problem Noted Date Diagnosed Date Resolved Date RUQ abdominal pain 09/15/2016 7 Abnormal LFTs 09/15/2016 09/15/2016 documented as of this encounter (statuses as of 12/01/2023) [address]25-2017 History of Past illness Narrative* Problem Noted Date Diagnosed Date Resolved Date RUQ abdominal pain 09/15/2016 7 Abnormal LFTs 09/15/2016 09/15/2016 documented as of this encounter (statuses as of 12/06/2023) [address]25-2017 History of Past illness Narrative* Problem Noted Date Diagnosed Date Resolved Date RUQ abdominal pain 09/15/2016 7 Abnormal LFTs 09/15/2016 09/15/2016 documented as of this encounter (statuses as of 12/07/2023) [address]25-2017 History of Past illness Narrative* Problem Noted Date Diagnosed Date Resolved Date RUQ abdominal pain 09/15/2016 7 Abnormal LFTs 09/15/2016 09/15/2016 documented as of this encounter (statuses as of 12/07/2023) [facility]01-25-2017 History of Past illness Narrative* Problem Noted Date Diagnosed Date Resolved Date RUQ abdominal pain 09/15/2016 7 Abnormal LFTs 09/15/2016 09/15/2016 documented as of this encounter (statuses as of 12/08/2023) [facility]01-25-2017 History of Past illness Narrative* Problem Noted Date Diagnosed Date Resolved Date RUQ abdominal pain 09/15/2016 7 Abnormal LFTs 09/15/2016 09/15/2016 documented as of this encounter (statuses as of 12/09/2023) [facility] Diagnosis Generalized abdominal pain Abdominal pain, generalized [facility] Lumbar spondylosis- Primary Lumbosacral spondylosis without myelopathy Lumbar facet arthropathy Lumbosacral spondylosis without myelopathy Postlaminectomy syndrome Postlaminectomy syndrome, unspecified region Chronic bilateral low back pain without sciatica [facility] Diagnosis Lumbar spondylosis- Primary Lumbosacral spondylosis without myelopathy Lumbar facet arthropathy Lumbosacral spondylosis without myelopathy Postlaminectomy syndrome Postlaminectomy syndrome, unspecified region Chronic bilateral low back pain without sciatica [facility] Thumb pain, right- Primary [facility] Diagnosis Lumbar spondylosis- Primary Lumbosacral spondylosis without myelopathy Lumbar facet arthropathy Lumbosacral spondylosis without myelopathy Chronic bilateral low back pain without sciatica [facility] Lumbar spondylosis- Primary Lumbosacral spondylosis without myelopathy Lumbar facet arthropathy Lumbosacral spondylosis without myelopathy Chronic bilateral low back pain without sciatica [facility] Diagnosis Lumbar spondylosis- Primary Lumbosacral spondylosis without myelopathy Lumbar facet arthropathy Lumbosacral spondylosis without myelopathy Postlaminectomy syndrome Postlaminectomy syndrome, unspecified region History of lumbar spinal fusion Lumbar spondylosis Lumbosacral spondylosis without myelopathy Lumbar facet arthropathy Lumbosacral spondylosis without myelopathy Chronic bilateral low back pain without sciatica documented in this encounter [facility]* Diagnosis Lumbar spondylosis Lumbosacral spondylosis without myelopathy Lumbar spondylosis Lumbosacral spondylosis without myelopathy Lumbar facet arthropathy Lumbosacral spondylosis without myelopathy Chronic bilateral low back pain without sciatica documented in this encounter [facility]* Diagnosis Lumbar spondylosis- Primary Lumbosacral spondylosis without myelopathy Lumbar spondylosis Lumbosacral spondylosis without myelopathy Lumbar facet arthropathy Lumbosacral spondylosis without myelopathy Chronic bilateral low back pain without sciatica documented in this encounter [facility]* Diagnosis Osteoporosis without current pathological fracture, unspecified osteoporosis type- Primary documented in this encounter [facility]* Diagnosis Lumbar spondylosis- Primary Lumbosacral spondylosis without myelopathy documented in this encounter [facility] note* Diagnosis Lumbar spondylosis- Primary Lumbosacral spondylosis without myelopathy documented in this encounter [facility]* Diagnosis Lumbar spondylosis- Primary Lumbosacral spondylosis without myelopathy Lumbar facet arthropathy Lumbosacral spondylosis without myelopathy Postlaminectomy syndrome Postlaminectomy syndrome, unspecified region History of lumbar spinal fusion documented in this encounter [facility]* Diagnosis Osteoporosis without current pathological fracture, unspecified osteoporosis type- Primary documented in this encounter [facility]* Diagnosis De Quervain's tenosynovitis, right- Primary Radial styloid tenosynovitis documented in this encounter [facility]* Diagnosis Chronic cough- Primary Cough Hoarseness Dysphonia documented in this encounter [facility]* Diagnosis History of lumbar spinal fusion- Primary Piriformis muscle pain Mylagia and myositis, unspecified Myalgia Mylagia and myositis, unspecified documented in this encounter [facility]* Diagnosis Onset Date Resolution Status Asthma acute Asthma acute GERD (gastroesophageal reflux disease) chronic [facility] Work Phone: Evaluation note* Diagnosis Cough documented in this encounter [facility]* Diagnosis Gastroesophageal reflux disease, unspecified whether esophagitis present- Primary Hoarseness, chronic Dysphonia Other constipation documented in this encounter [facility] note* Diagnosis Hip pain- Primary Pain in joint, pelvic region and thigh documented in this encounter [facility] note* Diagnosis Lumbosacral radiculitis- Primary Thoracic or lumbosacral neuritis or radiculitis, unspecified documented in this encounter [facility] note* Diagnosis Lumbosacral radiculitis Thoracic or lumbosacral neuritis or radiculitis, unspecified documented in this encounter [facility] note* Diagnosis Lumbar facet arthropathy- Primary Lumbosacral spondylosis without myelopathy Lumbar spondylosis Lumbosacral spondylosis without myelopathy History of lumbar spinal fusion Chronic bilateral low back pain without sciatica Lumbar facet arthropathy Lumbosacral spondylosis without myelopathy Lumbar spondylosis Lumbosacral spondylosis without myelopathy History of lumbar spinal fusion Chronic bilateral low back pain without sciatica documented in this encounter [facility]* Diagnosis Osteoporosis without current pathological fracture, unspecified osteoporosis type- Primary Hoarse- Primary Dysphonia Lumbar facet arthropathy Lumbosacral spondylosis without myelopathy Lumbar spondylosis Lumbosacral spondylosis without myelopathy History of lumbar spinal fusion Chronic bilateral low back pain without sciatica documented in this encounter [facility]* Diagnosis Onset Date Resolution Status Asthma acute Asthma acute GERD (gastroesophageal reflux disease) chronic Asthma acute [facility] Work Phone: Evaluation note* Diagnosis Lumbosacral radiculitis- Primary Thoracic or lumbosacral neuritis or radiculitis, unspecified Hoarse- Primary Dysphonia Lumbar facet arthropathy Lumbosacral spondylosis without myelopathy Lumbar spondylosis Lumbosacral spondylosis without myelopathy History of lumbar spinal fusion Chronic bilateral low back pain without sciatica documented in this encounter [facility] note* Diagnosis Hyperlipidemia, unspecified hyperlipidemia type- Primary Lumbago Pain in limb Cough Primary hypertension Unspecified essential hypertension Lumbar facet arthropathy Lumbosacral spondylosis without myelopathy Lumbar spondylosis Lumbosacral spondylosis without myelopathy History of lumbar spinal fusion Chronic bilateral low back pain without sciatica documented in this encounter [facility]* Diagnosis Lumbosacral radiculitis- Primary Thoracic or lumbosacral neuritis or radiculitis, unspecified Lumbar facet arthropathy Lumbosacral spondylosis without myelopathy Lumbar spondylosis Lumbosacral spondylosis without myelopathy History of lumbar spinal fusion Chronic bilateral low back pain without sciatica documented in this encounter [facility]* Diagnosis Lumbosacral radiculitis- Primary Thoracic or lumbosacral neuritis or radiculitis, unspecified Lumbar facet arthropathy Lumbosacral spondylosis without myelopathy Lumbar spondylosis Lumbosacral spondylosis without myelopathy History of lumbar spinal fusion Chronic bilateral low back pain without sciatica documented in this encounter [facility] note* Diagnosis Lumbosacral radiculitis- Primary Thoracic or lumbosacral neuritis or radiculitis, unspecified documented in this encounter [facility]* Diagnosis Gastroesophageal reflux disease, unspecified whether esophagitis present- Primary Hoarseness, chronic Dysphonia Hoarse Dysphonia documented in this encounter [facility] note* Diagnosis Lumbosacral radiculitis- Primary Thoracic or lumbosacral neuritis or radiculitis, unspecified documented in this encounter [facility] note* Diagnosis Dizziness- Primary Dizziness and giddiness Encounter for screening mammogram for breast cancer Hyperlipidemia, unspecified hyperlipidemia type Primary hypertension Unspecified essential hypertension Gastroesophageal reflux disease, unspecified whether esophagitis present Post-surgical hypothyroidism Postsurgical hypothyroidism Lumbar facet arthropathy- Primary Lumbosacral spondylosis without myelopathy Lumbar spondylosis Lumbosacral spondylosis without myelopathy History of lumbar spinal fusion Myalgia Mylagia and myositis, unspecified Postlaminectomy syndrome Postlaminectomy syndrome, unspecified region documented in this encounter [facility] note* Diagnosis DDD (degenerative disc disease), lumbar- Primary Degeneration of lumbar or lumbosacral intervertebral disc documented in this encounter [facility]* Diagnosis Lumbar facet arthropathy- Primary Lumbosacral spondylosis without myelopathy Lumbar spondylosis Lumbosacral spondylosis without myelopathy History of lumbar spinal fusion Myalgia Mylagia and myositis, unspecified Postlaminectomy syndrome Postlaminectomy syndrome, unspecified region documented in this encounter [facility] note* Diagnosis Chronic right-sided low back pain without sciatica- Primary [facility] Diagnosis Post-surgical hypothyroidism- Primary Postsurgical hypothyroidism Hyponatremia Hyposmolality and/or hyponatremia documented in this encounter [facility]* Diagnosis Dizziness- Primary Dizziness and giddiness Lumbar facet arthropathy Lumbosacral spondylosis without myelopathy Lumbar spondylosis Lumbosacral spondylosis without myelopathy History of lumbar spinal fusion Postlaminectomy syndrome Postlaminectomy syndrome, unspecified region documented in this encounter [facility]* Diagnosis Lumbosacral radiculitis- Primary Thoracic or lumbosacral neuritis or radiculitis, unspecified Lumbar facet arthropathy Lumbosacral spondylosis without myelopathy Lumbar spondylosis Lumbosacral spondylosis without myelopathy History of lumbar spinal fusion Postlaminectomy syndrome Postlaminectomy syndrome, unspecified region documented in this encounter [facility]* Diagnosis Dizziness- Primary Dizziness and giddiness Lumbar facet arthropathy Lumbosacral spondylosis without myelopathy Lumbar spondylosis Lumbosacral spondylosis without myelopathy History of lumbar spinal fusion Postlaminectomy syndrome Postlaminectomy syndrome, unspecified region documented in this encounter [facility]* Diagnosis Dizziness- Primary Dizziness and giddiness Lumbar facet arthropathy Lumbosacral spondylosis without myelopathy Lumbar spondylosis Lumbosacral spondylosis without myelopathy History of lumbar spinal fusion Postlaminectomy syndrome Postlaminectomy syndrome, unspecified region documented in this encounter [facility]* Diagnosis Gastroesophageal reflux disease without esophagitis- Primary Esophageal reflux Hoarseness, chronic Dysphonia Nausea Nausea alone Gastric polyps Benign neoplasm of stomach Other constipation Lumbar facet arthropathy Lumbosacral spondylosis without myelopathy Lumbar spondylosis Lumbosacral spondylosis without myelopathy History of lumbar spinal fusion Postlaminectomy syndrome Postlaminectomy syndrome, unspecified region documented in this encounter [facility] note* Diagnosis Other constipation- Primary Nausea Nausea alone Abnormal MRI of abdomen Nonspecific (abnormal) findings on radiological and other examination of abdominal area, including retroperitoneum Lumbar facet arthropathy Lumbosacral spondylosis without myelopathy Lumbar spondylosis Lumbosacral spondylosis without myelopathy History of lumbar spinal fusion Postlaminectomy syndrome Postlaminectomy syndrome, unspecified region [facility] Muscle cramps- Primary Cramp of limb Post-surgical hypothyroidism Postsurgical hypothyroidism Hyponatremia Hyposmolality and/or hyponatremia Disorder of bone, unspecified [facility] Lumbar spondylosis- Primary Lumbosacral spondylosis without myelopathy [facility] Diagnosis Lumbar spondylosis- Primary Lumbosacral spondylosis without myelopathy [facility] Osteoporosis without current pathological fracture, unspecified osteoporosis type- Primary [facility] Diagnosis Osteoporosis without current pathological fracture, unspecified osteoporosis type- [facility] Diagnosis Lumbar spondylosis- Primary Lumbosacral spondylosis without myelopathy [facility] Diagnosis Lumbar spondylosis- Primary Lumbosacral spondylosis without myelopathy [facility] Diagnosis Lumbar spondylosis- Primary Lumbosacral spondylosis without myelopathy Hip pain Pain in joint, pelvic region and thigh Status post lumbar spinal fusion Arthrodesis status Lumbar foraminal stenosis Spinal stenosis, lumbar region, without neurogenic claudication Myofascial pain syndrome of lumbar spine [facility] Diagnosis Lumbar spondylosis- Primary Lumbosacral spondylosis without myelopathy [facility] Diagnosis Lumbar spondylosis- Primary Lumbosacral spondylosis without myelopathy [facility] Diagnosis Primary hypertension Unspecified essential hypertension [facility] Diagnosis Chest discomfort- Primary Other chest pain Ankle swelling, unspecified laterality Shortness of breath [facility] Diagnosis Lumbar spondylosis- Primary Lumbosacral spondylosis without myelopathy [facility] Diagnosis Urinary frequency- Primary Recurrent UTI (urinary tract infection) Urinary tract infection, site not specified [facility] Diagnosis Hyponatremia- Primary Hyposmolality and/or hyponatremia [facility] Diagnosis Lumbar spondylosis- Primary Lumbosacral spondylosis without myelopathy Lumbar foraminal stenosis Spinal stenosis, lumbar region, without neurogenic claudication Radiculopathy, lumbar region Thoracic or lumbosacral neuritis or radiculitis, unspecified [facility]* Diagnosis Lumbar spondylosis- Primary Lumbosacral spondylosis without myelopathy Lumbar foraminal stenosis Spinal stenosis, lumbar region, without neurogenic claudication Radiculopathy, lumbar region Thoracic or lumbosacral neuritis or radiculitis, unspecified [facility]* Diagnosis Onset Date Resolution Status Neck pain acute Segmental and somatic dysfunction of cervical region acute Segmental and somatic dysfunction of thoracic region acute Degenerative disc disease ch ronic Neck pain acute Segmental and somatic dysfunction of cervical region acute Segmental and somatic dysfunction of thoracic region acute Degenerative disc disease ch ronic Debility acute General weakness acute Leukocytosis acute Pneumonia acute [facility] Work Phone: Evaluation note* Diagnosis Onset Date Resolution Status Neck pain acute Segmental and somatic dysfunction of cervical region acute Segmental and somatic dysfunction of thoracic region acute Degenerative disc disease ch ronic Neck pain acute Segmental and somatic dysfunction of cervical region acute Segmental and somatic dysfunction of thoracic region acute Degenerative disc disease ch ronic Abnormal chest x-ray acute Debility acute General weakness acute Leukocytosis acute Pneumonia acute [facility] Work Phone: Evaluation note* Diagnosis Spinal stenosis of lumbar region with neurogenic claudication Spinal stenosis, lumbar region, with neurogenic claudication Lumbar spondylosis Lumbosacral spondylosis without myelopathy Lumbar foraminal stenosis Spinal stenosis, lumbar region, without neurogenic claudication Radiculopathy, lumbar region Thoracic or lumbosacral neuritis or radiculitis, unspecified [facility]* Diagnosis Other constipation Nausea Nausea alone Abnormal MRI of abdomen Nonspecific (abnormal) findings on radiological and other examination of abdominal area, including retroperitoneum Encounter for screening colonoscopy Special screening for malignant neoplasms, colon Lumbar spondylosis Lumbosacral spondylosis without myelopathy Lumbar foraminal stenosis Spinal stenosis, lumbar region, without neurogenic claudication Radiculopathy, lumbar region Thoracic or lumbosacral neuritis or radiculitis, unspecified documented in this encounter [facility] note* Diagnosis Gastroesophageal reflux disease without esophagitis Esophageal reflux Nausea Nausea alone Lumbar spondylosis Lumbosacral spondylosis without myelopathy Lumbar foraminal stenosis Spinal stenosis, lumbar region, without neurogenic claudication Radiculopathy, lumbar region Thoracic or lumbosacral neuritis or radiculitis, unspecified documented in this encounter [facility] note* Diagnosis Spinal stenosis of lumbar region with neurogenic claudication Spinal stenosis, lumbar region, with neurogenic claudication Lumbar spondylosis Lumbosacral spondylosis without myelopathy Lumbar foraminal stenosis Spinal stenosis, lumbar region, without neurogenic claudication Radiculopathy, lumbar region Thoracic or lumbosacral neuritis or radiculitis, unspecified documented in this encounter [facility] note* Diagnosis Lumbar radiculopathy- Primary Thoracic or lumbosacral neuritis or radiculitis, unspecified Lumbar spondylosis Lumbosacral spondylosis without myelopathy Lumbar foraminal stenosis Spinal stenosis, lumbar region, without neurogenic claudication Radiculopathy, lumbar region Thoracic or lumbosacral neuritis or radiculitis, unspecified documented in this encounter [facility] note* Diagnosis Bacterial pneumonia- Primary Bacterial pneumonia, unspecified Cough Lumbar spondylosis Lumbosacral spondylosis without myelopathy Lumbar foraminal stenosis Spinal stenosis, lumbar region, without neurogenic claudication Radiculopathy, lumbar region Thoracic or lumbosacral neuritis or radiculitis, unspecified documented in this encounter [facility] note* Diagnosis Lumbar radiculopathy- Primary Thoracic or lumbosacral neuritis or radiculitis, unspecified Lumbar spondylosis Lumbosacral spondylosis without myelopathy Lumbar foraminal stenosis Spinal stenosis, lumbar region, without neurogenic claudication Radiculopathy, lumbar region Thoracic or lumbosacral neuritis or radiculitis, unspecified documented in this encounter [facility] note* Diagnosis Screening for ischemic heart disease- Primary Lumbar spondylosis Lumbosacral spondylosis without myelopathy Lumbar foraminal stenosis Spinal stenosis, lumbar region, without neurogenic claudication Radiculopathy, lumbar region Thoracic or lumbosacral neuritis or radiculitis, unspecified documented in this encounter [facility] note* Diagnosis Chest discomfort Other chest pain Lumbar spondylosis Lumbosacral spondylosis without myelopathy Lumbar foraminal stenosis Spinal stenosis, lumbar region, without neurogenic claudication Radiculopathy, lumbar region Thoracic or lumbosacral neuritis or radiculitis, unspecified documented in this encounter [facility] note* Diagnosis Lumbar radiculopathy- Primary Thoracic or lumbosacral neuritis or radiculitis, unspecified documented in this encounter [facility] note* Diagnosis Chronic right-sided low back pain without sciatica documented in this encounter [facility] note* Diagnosis Chronic right-sided low back pain without sciatica- Primary Bowel habit changes Other symptoms involving digestive system documented in this encounter [facility] note* Diagnosis Lumbar radiculopathy- Primary Thoracic or lumbosacral neuritis or radiculitis, unspecified documented in this encounter [facility] note* Diagnosis Foot pain, right- Primary Pain in limb Encounter for immunization Need for other specified prophylactic vaccination against single bacterial disease Cut of skin of right lower leg documented in this encounter [facility] note* Diagnosis Foot pain, right Pain in limb documented in this encounter [facility] note* Diagnosis Lumbar radiculopathy- Primary Thoracic or lumbosacral neuritis or radiculitis, unspecified documented in this encounter [facility] note* Diagnosis Primary hypertension Unspecified essential hypertension documented in this encounter [facility] note* Diagnosis Chronic right-sided low back pain without sciatica documented in this encounter [facility] note* Diagnosis Hamstring strain, right, initial encounter- Primary documented in this encounter [facility] note* Diagnosis Pain in right hip Pain in joint, pelvic region and thigh documented in this encounter [facility] note* Diagnosis Encounter for screening mammogram for breast cancer documented in this encounter [facility] note* Diagnosis Hamstring strain, right, initial encounter- Primary documented in this encounter [facility] note* Diagnosis Inconclusive mammogram- Primary documented in this encounter [facility] note* Diagnosis Sciatic radiculitis- Primary [facility] Diagnosis Hamstring strain, right, initial encounter- Primary documented in this encounter [facility] note* Diagnosis Hamstring strain, right, initial encounter- Primary documented in this encounter [facility] note* Diagnosis Lumbar spondylosis- Primary Lumbosacral spondylosis without myelopathy Lumbar facet arthropathy Lumbosacral spondylosis without myelopathy documented in this encounter [facility] note* Diagnosis Inconclusive mammogram [facility]* Diagnosis Inconclusive mammogram [facility] this [facility]* Diagnosis Inconclusive mammogram- Primary documented in this encounter [facility] note* Diagnosis Syncope, unspecified syncope type- Primary Chronic right-sided low back pain without sciatica Medication monitoring encounter Encounter for therapeutic drug monitoring documented in this encounter [facility] note* Diagnosis Hamstring strain, right, initial encounter- Primary documented in this encounter [facility] note* Diagnosis Hamstring strain, right, initial encounter- Primary documented in this encounter [facility] note* Diagnosis Asthma with acute exacerbation, unspecified asthma severity, unspecified whether persistent- Primary Acute non-recurrent sinusitis, unspecified location documented in this encounter [facility] note* Diagnosis Osteoporosis without current pathological fracture, unspecified osteoporosis type- Primary documented in this encounter [facility] note* Diagnosis Lumbosacral radiculitis Thoracic or lumbosacral neuritis or radiculitis, unspecified documented in this encounter [facility] note* Diagnosis Other cerebral infarction (HCC)- Primary documented in this encounter [facility] note* Diagnosis Osteoporosis without current pathological fracture, unspecified osteoporosis type- Primary documented in this encounter [facility] note* Diagnosis Lumbar facet arthropathy- Primary Lumbosacral spondylosis without myelopathy Lumbar spondylosis Lumbosacral spondylosis without myelopathy Lumbar facet arthropathy Lumbosacral spondylosis without myelopathy Lumbar spondylosis Lumbosacral spondylosis without myelopathy documented in this encounter [facility] note* Diagnosis Lumbar facet arthropathy- Primary Lumbosacral spondylosis without myelopathy Lumbar spondylosis Lumbosacral spondylosis without myelopathy Myofascial pain syndrome of lumbar spine History of lumbar spinal fusion Postlaminectomy syndrome Postlaminectomy syndrome, unspecified region Lumbar facet arthropathy Lumbosacral spondylosis without myelopathy Lumbar spondylosis Lumbosacral spondylosis without myelopathy Lumbar facet arthropathy Lumbosacral spondylosis without myelopathy Lumbar spondylosis Lumbosacral spondylosis without myelopathy documented in this encounter [facility] note* Diagnosis Hamstring strain, right, initial encounter- Primary Lumbar facet arthropathy Lumbosacral spondylosis without myelopathy Lumbar spondylosis Lumbosacral spondylosis without myelopathy [facility] Hip pain Pain in joint, pelvic region and thigh Lumbar facet arthropathy Lumbosacral spondylosis without myelopathy Lumbar spondylosis Lumbosacral spondylosis without myelopathy [facility] COVID-19- Primary Acute cough Acute cough COVID-19 Lumbar facet arthropathy Lumbosacral spondylosis without myelopathy Lumbar spondylosis Lumbosacral spondylosis without myelopathy [facility] Diagnosis Hamstring strain, right, initial encounter- Primary Lumbar facet arthropathy Lumbosacral spondylosis without myelopathy Lumbar spondylosis Lumbosacral spondylosis without myelopathy [facility] Diagnosis Lumbar facet arthropathy- Primary Lumbosacral spondylosis without myelopathy Lumbar spondylosis Lumbosacral spondylosis without myelopathy Lumbar facet arthropathy Lumbosacral spondylosis without myelopathy Lumbar spondylosis Lumbosacral spondylosis without myelopathy [facility]* Diagnosis Chronic bilateral low back pain without sciatica- Primary Pain medication agreement Encounter for long-term (current) use of other medications Spinal stenosis of lumbar region with neurogenic claudication Spinal stenosis, lumbar region, with neurogenic claudication Chronic right-sided low back pain without sciatica COVID-19 Lumbar facet arthropathy Lumbosacral spondylosis without myelopathy Lumbar spondylosis Lumbosacral spondylosis without myelopathy [facility] Diagnosis Acute cough COVID-19 [facility] Diagnosis Hyperlipidemia, unspecified hyperlipidemia type [facility] Diagnosis Lumbar facet arthropathy- Primary Lumbosacral spondylosis without myelopathy Lumbar spondylosis Lumbosacral spondylosis without myelopathy [facility]* Diagnosis Acute cough [facility] Diagnosis Asymptomatic postmenopausal status [facility] Diagnosis Chest discomfort Other chest pain [facility] Diagnosis Hip pain Pain in joint, pelvic region and thigh [facility] Diagnosis Lumbar facet arthropathy- Primary Lumbosacral spondylosis without myelopathy Lumbar spondylosis Lumbosacral spondylosis without myelopathy Radiculopathy, lumbar region Thoracic or lumbosacral neuritis or radiculitis, unspecified documented [facility] this encounter [facility]* Diagnosis Inconclusive mammogram documented in this encounter [facility]* Diagnosis Inconclusive mammogram documented in this encounter [facility] note* Diagnosis Hamstring strain, right, initial encounter- Primary documented in this encounter [facility] note* Diagnosis Inconclusive mammogram- Primary [facility] Diagnosis Hip pain Pain in joint, pelvic region and thigh documented in this encounter [facility]* Diagnosis Myofascial pain syndrome of lumbar spine- Primary Radiculopathy, lumbar region Thoracic or lumbosacral neuritis or radiculitis, unspecified Lumbar facet arthropathy Lumbosacral spondylosis without myelopathy Lumbar spondylosis Lumbosacral spondylosis without myelopathy History of lumbar spinal fusion Postlaminectomy syndrome Postlaminectomy syndrome, unspecified region documented [facility] this encounter [facility]* Diagnosis Primary hypertension Unspecified essential hypertension documented in this encounter [facility] note* Diagnosis Lumbar radiculopathy- Primary Thoracic or lumbosacral neuritis or radiculitis, unspecified Chronic cough Cough Medicare annual wellness visit, subsequent Routine general medical examination at a health care facility documented in this encounter [facility] note* Diagnosis Cough documented in this encounter [facility] note* Diagnosis Hamstring strain, right, initial encounter- Primary documented in this encounter [facility] note* Diagnosis Radiculopathy, lumbar region Thoracic or lumbosacral neuritis or radiculitis, unspecified Lumbar facet arthropathy Lumbosacral spondylosis without myelopathy Lumbar spondylosis Lumbosacral spondylosis without myelopathy documented in this encounter [facility] note* Diagnosis Acute right-sided thoracic back pain- Primary Primary hypertension Unspecified essential hypertension Vitamin D deficiency Unspecified vitamin D deficiency documented in this encounter [facility] note* Diagnosis Hamstring strain, right, initial encounter- Primary documented in this encounter [facility] note* Diagnosis Lumbar back pain- Primary Lumbago documented in this encounter [facility] note* Diagnosis Lumbar back pain Lumbago [facility] Diagnosis Myofascial pain syndrome of lumbar spine- Primary Radiculopathy, lumbar region Thoracic or lumbosacral neuritis or radiculitis, unspecified Lumbar facet arthropathy Lumbosacral spondylosis without myelopathy Lumbar spondylosis Lumbosacral spondylosis without myelopathy History of lumbar spinal fusion Postlaminectomy syndrome Postlaminectomy syndrome, unspecified region documented [facility] this encounter [facility]* Diagnosis Osteoporosis without current pathological fracture, unspecified osteoporosis type- Primary documented [facility] this [facility]* Diagnosis Hamstring strain, right, initial encounter- Primary documented [facility]* Diagnosis Myofascial pain syndrome of lumbar spine- Primary Radiculopathy, lumbar region Thoracic or lumbosacral neuritis or radiculitis, unspecified Lumbar facet arthropathy Lumbosacral spondylosis without myelopathy Lumbar spondylosis Lumbosacral spondylosis without myelopathy History of lumbar spinal fusion [facility] Diagnosis Primary hypertension Unspecified essential hypertension documented in this encounter [facility] note* Diagnosis Hip pain Pain in joint, pelvic region and thigh [facility] Diagnosis Hamstring strain, right, initial encounter- Primary documented in this encounter [facility] note* Diagnosis Hamstring strain, right, initial encounter- Primary documented [facility]* Diagnosis Hyperlipidemia, unspecified hyperlipidemia type- Primary Chronic right-sided low back pain without sciatica Post-surgical hypothyroidism Postsurgical hypothyroidism Primary hypertension Unspecified essential hypertension documented in this encounter [facility] note* Diagnosis Continuous use of opioids- Primary Radiculopathy, lumbar region Thoracic or lumbosacral neuritis or radiculitis, unspecified Lumbar facet arthropathy Lumbosacral spondylosis without myelopathy Lumbar spondylosis Lumbosacral spondylosis without myelopathy Other spondylosis, lumbar region documented in this encounter [facility] note* Diagnosis Leg injury, right, initial encounter- Primary Fall, initial encounter Cellulitis of skin Cellulitis and abscess of unspecified site Leg injury, right, initial encounter [facility]* Diagnosis Leg injury, right, initial encounter documented in this encounter [facility] note* Diagnosis Acute cough- Primary Pharyngitis, unspecified etiology Mouth pain Other and unspecified diseases of the oral soft tissues Acute cough documented in this encounter [facility] note* Diagnosis Acute cough documented in this encounter [facility] note* Diagnosis Inconclusive mammogram documented in this encounter [facility] note* Diagnosis Mammographic microcalcification found on diagnostic imaging of breast- Primary Mammographic microcalcification documented in this encounter [facility] note* Diagnosis Lumbar facet arthropathy Lumbosacral spondylosis without myelopathy Lumbar spondylosis Lumbosacral spondylosis without myelopathy documented in this encounter [facility] note* Diagnosis Radiculopathy, lumbar region Thoracic or lumbosacral neuritis or radiculitis, unspecified Lumbar facet arthropathy Lumbosacral spondylosis without myelopathy Lumbar spondylosis Lumbosacral spondylosis without myelopathy documented in this encounter [facility] note* Diagnosis Hamstring strain, right, initial encounter- Primary documented in this encounter [facility] note* Diagnosis Mammographic microcalcification found on diagnostic imaging of breast Mammographic microcalcification documented in this encounter [facility] note* Diagnosis Encounter for immunization Need for other specified prophylactic vaccination against single bacterial disease documented in this encounter [facility] note* Diagnosis Osteoporosis without current pathological fracture, unspecified osteoporosis type- Primary documented in this encounter [facility] note* Diagnosis Radiculopathy, lumbar region Thoracic or lumbosacral neuritis or radiculitis, unspecified Lumbar facet arthropathy Lumbosacral spondylosis without myelopathy Lumbar spondylosis Lumbosacral spondylosis without myelopathy documented in this encounter [facility] note* Diagnosis Hamstring strain, right, initial encounter- Primary documented in this encounter [facility] note* Diagnosis Hyperlipidemia, unspecified hyperlipidemia type- Primary documented in this encounter [facility] for referral (narrative)* Diagnostic Procedure Only (Routine) - Closed Specialty Diagnoses / Procedures Referred By Lilia yee Referred To Contact US IMAGING Diagnoses Generalized abdominal pain Procedures US ABD RT UPPER QUADRANT US ABDOMINAL REAL TIME W/IMAGE LIMITED Angie Aguirre, BIOINFORMATICS SOFTWARE ENGINEER.WEIGHT ANALYST [address] [place] [address] Us Imaging Referral ID Status Reason Start Date Expiration Date V isits Requested Visits Authorized [id number] Closed Auto-Generate d Referral 10/23/2021 11/22/2022 1 1 [facility] for referral (narrative)* Diagnostic Procedure Only (Routine) - Closed Specialty Diagnoses / Procedures Referred By Contac t Referred To Contact XR IMAGING Diagnoses Lumbar spondylosis Procedures XR LUMBAR LIMITED 2V FLEX/EXT RADEX SPINE LUMBOSACRAL 2/3 VIEWS Quita Barth APRN.WEIGHT ANALYST [address] [id number] Xr Imaging Referral ID Status Reason Start Date Expiration Date V isits Requested Visits Authorized [id number] Closed Auto-Generate d Referral 01/06/2022 02/05/2023 1 1 * Diagnostic Procedure Only (Routine) - Closed Specialty Diagnoses / Procedures Referred By Contac t Referred To Contact XR IMAGING Diagnoses Lumbar spondylosis Procedures XR LUMBAR PARS DEFECT 4V AP/LAT/BOTH OBL RADEX SPINE LUMBOSACRAL MINIMUM 4 VIEWS Quita Barth APRN.WEIGHT ANALYST [address] [place] [address] Xr Imaging Referral ID Status Reason Start Date Expiration Date V isits Requested Visits Authorized [id number] Closed Auto-Generate d Referral 01/06/2022 02/05/2023 1 1 [facility] for referral (narrative)* Diagnostic Procedure Only (Routine) - Closed Specialty Diagnoses / Procedures Referred By Contac t Referred To Contact XR IMAGING Diagnoses Lumbar spondylosis Procedures XR LUMBAR LIMITED 2V FLEX/EXT RADEX SPINE LUMBOSACRAL 2/3 VIEWS Quita Barth APRN.WEIGHT ANALYST [address] [place] [address] Xr Imaging Referral ID Status Reason Start Date Expiration Date V isits Requested Visits Authorized [id number] Closed Auto-Generate d Referral 01/06/2022 02/05/2023 1 1 * Diagnostic Procedure Only (Routine) - Closed Specialty Diagnoses / Procedures Referred By Contac t Referred To Contact XR IMAGING Diagnoses Lumbar spondylosis Procedures XR LUMBAR PARS DEFECT 4V AP/LAT/BOTH OBL RADEX SPINE LUMBOSACRAL MINIMUM 4 VIEWS Quita Barth APRN.WEIGHT ANALYST [address] [place] [address] Xr Imaging Referral ID Status Reason Start Date Expiration Date V isits Requested Visits Authorized [id number] Closed Auto-Generate d Referral 01/06/2022 02/05/2023 1 1 [facility] for referral (narrative)* Outpatient Procedure (Routine) - Pending Review Specialty Diagnoses / Procedures Referred By Contac t Referred To Contact [facility] Diagnoses Gastroesophageal reflux disease, unspecified whether esophagitis present Hoarseness, chronic Procedures EGD DIAGNOSTIC ESOPHAGOGASTRODUODENOSC OPY TRANSORAL DIAGNOSTIC Delia Mckeon PA-C [address] [place] [address] [facility] [address] [place] [address] Referral ID Status Reason Start Date Expiration Date Visits Requested Visits Authorized [id number] Pending Review Auto-Generat ed Referral 07/26/2022 07/26/2023 1 1 [facility] for referral (narrative)* Diagnostic Procedure Only (Routine) - Closed Specialty Diagnoses / Procedures Referred By Contac t Referred To Contact XR IMAGING Diagnoses Hip pain Procedures XR HIP BILATERAL 5V PEL/AP/LAT EACH HIP RADEX HIPS BILATERAL WITH PELVIS MINIMUM 5 VIEWS Shira Rowe APRN.WEIGHT ANALYST [address] [place] [address] Xr Imaging Referral ID Status Reason Start Date Expiration Date V isits Requested Visits Authorized [id number] Closed Auto-Generate d Referral 08/19/2022 09/18/2023 1 1 [facility] for referral (narrative)* Outpatient Procedure (Routine) - Closed Specialty Diagnoses / Procedures Referred By Contac t Referred To Contact [facility] Diagnoses Gastroesophageal reflux disease, unspecified whether esophagitis present Hoarseness, chronic Procedures EGD DIAGNOSTIC ESOPHAGOGASTRODUODENOSC OPY TRANSORAL DIAGNOSTIC Delia Mckeon PA-C [address] [facility] [address] [facility] [address] [place] [address] Referral ID Status Reason Start Date Expiration Date V isits Requested Visits Authorized [id number] Closed Auto-Generate d Referral 07/26/2022 07/26/2023 1 1 [facility] for referral (narrative)* Diagnostic Procedure Only (Routine) - Pending Review Specialty Diagnoses / Procedures Referred By Contac t Referred To Contact XR IMAGING Diagnoses DDD (degenerative disc disease), lumbar Procedures XR SCOLIOSIS PA STAND/LAT 2V RADEX ENTIR THRC LMBR CRV SAC SPI W/SKULL 2/3 VW Lars Alcantar MD [address] [place] [address] Xr Imaging Referral ID Status Reason Start Date Expiration Date Visits Requested Visits Authorized [id number] Pending Review Auto-Generat ed Referral 11/23/2022 12/23/2023 1 1 [facility] for referral (narrative)* Diagnostic Procedure Only (Routine) - Pending Review Specialty Diagnoses / Procedures Referred By Contac t Referred To Contact XR IMAGING Diagnoses Other constipation Procedures XR ABDOMEN 1V SUPINE RADIOLOGIC EXAM ABDOMEN 1 VIEW Delia Mckeon PA-C [address] [facility] [address] Xr Imaging Referral ID Status Reason Start Date Expiration Date Visits Requested Visits Authorized [id number] Pending Review Auto-Generat ed Referral 12/30/2022 01/29/2024 1 1 * Diagnostic Procedure Only (Routine) - Pending Review Specialty Diagnoses / Procedures Referred By Contac t Referred To Contact US IMAGING Diagnoses Gastroesophageal reflux disease without esophagitis Nausea Procedures US ABD RIGHT UPPER QUADRANT US ABDOMINAL REAL TIME W/IMAGE LIMITED Delia Mckeon PA-C [address] [place] [address] Us Imaging Referral ID Status Reason Start Date Expiration Date Visits Requested Visits Authorized [id number] Pending Review Auto-Generat ed Referral 12/30/2022 01/29/2024 1 1 [facility] for referral (narrative)* Outpatient Procedure (Routine) - Pending Review Specialty Diagnoses / Procedures Referred By Contac t Referred To Contact [facility] Diagnoses Other constipation Nausea Abnormal MRI of abdomen Procedures COLONOSCOPY DIAGNOSTIC COLONOSCOPY FLX DX W/COLLJ SPEC WHEN PFRMD Dee Resendez PA-C [address] [place] [address] [facility] [address] [place] [address] Referral ID Status Reason Start Date Expiration Date Visits Requested Visits Authorized [id number] Pending Review Auto-Generat ed Referral 01/03/2023 01/04/2024 1 1 [facility] for referral (narrative)* Diagnostic Procedure Only (Routine) - Authorized Specialty Diagnoses / Procedures Referred By Contac t Referred To Contact [facility] Diagnoses Chest discomfort Procedures NM CARDIAC PERF STRESS/PHARM MYOCARDIAL SPECT MULTIPLE STUDIES Angie Aguirre, BIOINFORMATICS SOFTWARE ENGINEER.WEIGHT ANALYST [address] [place] [address] [facility] [address] [id number] Referral ID Status Reason Start Date Expiration Date Visits Requested Visits Authorized [id number] Authorized Auto-Generat ed Referral 3 07/05/2024 1 1 * Outpatient Procedure (Routine) - Authorized Specialty Diagnoses / Procedures Referred By Contac t Referred To Contact [facility] Diagnoses Chest discomfort Procedures ECHO ECHO TTHRC R-T 2D W/WOM-MODE COMPL SPEC&COLR D Angie Aguirre APRN.WEIGHT ANALYST [address] [place] [address] [facility] [address] [address] Referral ID Status Reason Start Date Expiration Date Visits Requested Visits Authorized [id number] Authorized Auto-Generat ed Referral 3 06/05/2024 1 1 * Outpatient Procedure (Routine) - Closed Specialty Diagnoses / Procedures Referred By Contac t Referred To Contact [facility] Diagnoses Chest discomfort Procedures ECG COMPLETE ECG ROUTINE ECG W/LEAST 12 LDS W/I&R Angie Aguirre APRN.WEIGHT ANALYST [address] [place] [address] [facility] [address] [place] [address] Referral ID Status Reason Start Date Expiration Date V isits Requested Visits Authorized [id number] Closed Auto-Generate d Referral 06/06/2023 06/05/2024 1 1 [facility] for referral (narrative)* Outpatient Procedure (Routine) - Closed Specialty Diagnoses / Procedures Referred By Contac t Referred To Contact [facility] Diagnoses Other constipation Nausea Abnormal MRI of abdomen Procedures COLONOSCOPY DIAGNOSTIC COLONOSCOPY FLX DX W/COLLJ SPEC WHEN PFRMD Dee Concepcion PA-C [address] [place] [address] [facility] [address] [place] [address] Referral ID Status Reason Start Date Expiration Date V isits Requested Visits Authorized [id number] Closed Auto-Generate d Referral 01/03/2023 01/04/2024 1 1 [facility] for referral (narrative)* Diagnostic Procedure Only (Routine) - Closed Specialty Diagnoses / Procedures Referred By Contac t Referred To Contact US IMAGING Diagnoses Gastroesophageal reflux disease without esophagitis Nausea Procedures US ABD RIGHT UPPER QUADRANT US ABDOMINAL REAL TIME W/IMAGE LIMITED Delia Mckeon PA-C [address] [place] [address] [place] [address] Referral ID Status Reason Start Date Expiration Date V isits Requested Visits Authorized [id number] Closed Auto-Generate d Referral 12/30/2022 01/29/2024 1 1 [facility] for referral (narrative)* Diagnostic Procedure Only (Routine) - Closed Specialty Diagnoses / Procedures Referred By Contac t Referred To Contact [facility] Diagnoses Chest discomfort Procedures NM CARDIAC PERF STRESS/PHARM MYOCARDIAL SPECT MULTIPLE STUDIES Angie Aguirre APRN.CNP [address] [place] [address] [facility] [address] [place] [address] Referral ID Status Reason Start Date Expiration Date V isits Requested Visits Authorized [id number] Closed Auto-Generate d Referral 06/06/2023 07/05/2024 1 1 [facility] for referral (narrative)* Diagnostic Procedure Only (Routine) - Pending Review Specialty Diagnoses / Procedures Referred By Contac t Referred To Contact XR IMAGING Diagnoses Foot pain, right Procedures XR FOOT GENERAL 3V AP/LAT/OBL RIGHT RADEX FOOT COMPLETE MINIMUM 3 VIEWS Angie Aguirre APRN.WEIGHT ANALYST [address] [place] [address] [place] [address] Referral ID Status Reason Start Date Expiration Date Visits Requested Visits Authorized [id number] Pending Review Auto-Generat ed Referral 11/04/2023 12/03/2024 1 1 [facility] for referral (narrative)* Diagnostic Procedure Only (Routine) - Pending Review Specialty Diagnoses / Procedures Referred By Contac t Referred To Contact BR IMAGING Diagnoses Inconclusive mammogram Procedures US BREAST LTD RIGHT US BREAST UNI REAL TIME WITH IMAGE LIMITED Angie Aguirre APRN.WEIGHT ANALYST [address] [place] [address] [facility] [address] [place] [address] Referral ID Status Reason Start Date Expiration Date Visits Requested Visits Authorized [id number] Pending Review Auto-Generat ed Referral 12/07/2023 01/05/2025 1 1 * Diagnostic Procedure Only (Routine) - Pending Review Specialty Diagnoses / Procedures Referred By Contac t Referred To Contact BR IMAGING Diagnoses Inconclusive mammogram Procedures US BREAST LTD LEFT US BREAST UNI REAL TIME WITH IMAGE LIMITED Angie Aguirre APRN.WEIGHT ANALYST [address] [place] [address] [facility] [address] [place] [address] Referral ID Status Reason Start Date Expiration Date Visits Requested Visits Authorized [id number] Pending Review Auto-Generat ed Referral 12/07/2023 01/05/2025 1 1 * Diagnostic Procedure Only (Routine) - Pending Review Specialty Diagnoses / Procedures Referred By Contac t Referred To Contact [facility] IM[facility] Diagnoses Inconclusive mammogram Procedures MARK DIAGNOSTIC BILATERAL DIAGNOSTIC MAMMOGRAPHY COMPUTER-AIDED DETCJ BI Angie Aguirre APRN.WEIGHT ANALYST [address] [place] [address] [facility] [address] [place] [address] Referral ID Status Reason Start Date Expiration Date Visits Requested Visits Authorized [id number] Pending Review Auto-Generat ed Referral 12/07/2023 01/05/2025 1 1 [facility] for referral (narrative)* Diagnostic Procedure Only (Routine) - Pending Review Specialty Diagnoses / Procedures Referred By Contac t Referred To Contact [facility] Diagnoses Inconclusive mammogram Procedures US BREAST LTD RIGHT US BREAST UNI REAL TIME WITH IMAGE LIMITED Angie Aguirre APRN.WEIGHT ANALYST [address] [place] [address] [facility] [address] [place] [address] Referral ID Status Reason Start Date Expiration Date Visits Requested Visits Authorized [id number] Pending Review Auto-Generat ed Referral 4 01/28/2025 1 1 * Diagnostic Procedure Only (Routine) - Pending Review Specialty Diagnoses / Procedures Referred By Contac t Referred To Contact [facility] Diagnoses Inconclusive mammogram Procedures MARK DIAGNOSTIC RIGHT DIAGNOSTIC MAMMOGRAPHY COMPUTER-AIDED DETCJ UNI Angie Aguirre APRN.WEIGHT ANALYST [address] [place] [address] [facility] [address] [place] [address] Referral ID Status Reason Start Date Expiration Date Visits Requested Visits Authorized [id number] Pending Review Auto-Generat ed Referral 4 01/28/2025 1 1 [facility] for referral (narrative)* Outpatient Procedure (Routine) - Authorized Specialty Diagnoses / Procedures Referred By Contac t Referred To Contact [facility] Diagnoses Syncope, unspecified syncope type Procedures US CAROTID ARTERIES [facility] DUPLEX SCAN EXTRACRANIAL ART COMPL BI STUDY Angie Aguirre APRN.WEIGHT ANALYST [address] [place] [address] [facility] [place] [address] [place] [address] Referral ID Status Reason Start Date Expiration Date Visits Requested Visits Authorized [id number] Authorized Auto-Generat ed Referral 01/02/2024 01/01/2025 1 1 * Outpatient Procedure (Routine) - Pending Review Specialty Diagnoses / Procedures Referred By Contac t Referred To Contact [facility] Diagnoses Syncope, unspecified syncope type Procedures ECG COMPLETE ECG ROUTINE ECG W/LEAST 12 LDS W/I&R Angie Aguirre APRN.WEIGHT ANALYST [address] [place] [address] [facility] [place] [address] [place] [address] Referral ID Status Reason Start Date Expiration Date Visits Requested Visits Authorized [id number] Pending Review Auto-Generat ed Referral 01/02/2024 01/01/2025 1 1 [facility] for referral (narrative)* Diagnostic Procedure Only (Routine) - Closed Specialty Diagnoses / Procedures Referred By Contac t Referred To Contact XR IMAGING Diagnoses Lumbar facet arthropathy Lumbar spondylosis Procedures XR LUMBAR PARS DEFECT 4V AP/LAT/BOTH OBL RADEX SPINE LUMBOSACRAL MINIMUM 4 VIEWS Quita Barth BIOINFORMATICS SOFTWARE ENGINEER.WEIGHT ANALYST [address] [place] [address] [place] [address] Referral ID Status Reason Start Date Expiration Date V isits Requested Visits Authorized [id number] Closed Auto-Generate d Referral 03/15/2024 04/14/2025 1 1 [facility] for referral (narrative)* Diagnostic Procedure Only (Routine) - Closed Specialty Diagnoses / Procedures Referred By Contac t Referred To Contact XR IMAGING Diagnoses Hip pain Procedures XR HIP BILATERAL 5V PEL/AP/LAT EACH HIP RADEX HIPS BILATERAL WITH PELVIS MINIMUM 5 VIEWS Shira Rowe, BIOINFORMATICS SOFTWARE ENGINEER.WEIGHT ANALYST [address] [place] [address] [place] [address] Referral ID Status Reason Start Date Expiration Date V isits Requested Visits Authorized [id number] Closed Auto-Generate d Referral 08/19/2022 09/18/2023 1 1 [facility] for referral (narrative)* Diagnostic Procedure Only (Routine) - New Request Specialty Diagnoses / Procedures Referred By Contac t Referred To Contact BR IMAGING Diagnoses Inconclusive mammogram Procedures MARK DIAG W CHIQUITA BILATERAL DIGITAL BREAST TOMOSYNTHESIS BILATERAL Angie Aguirre APRN.WEIGHT ANALYST [address] [place] [address] [facility] [address] [place] [address] Referral ID Status Reason Start Date Expiration Date Visits Requested Visits Authorized [id number] New Request Auto-Generat ed Referral 12/05/2024 07/06/2025 1 1 [facility] for referral (narrative)* Diagnostic Procedure Only (Routine) - Closed Specialty Diagnoses / Procedures Referred By Contac t Referred To Contact XR IMAGING Diagnoses Lumbar back pain Procedures XR LUMBAR GENERAL 3V AP/LAT/L5-S1 RADEX SPINE LUMBOSACRAL 2/3 VIEWS Angie Aguirre APRN.WEIGHT ANALYST [address] [place] [address] [place] [address] Referral ID Status Reason Start Date Expiration Date V isits Requested Visits Authorized [id number] Closed Auto-Generate d Referral 08/13/2024 09/12/2025 1 1 [facility] for referral (narrative)No reason for referral [facility]: Reason for visit Narrative* Diagnostic Procedure Only (Routine) - Closed Specialty Diagnoses / Procedures Referred By Contac t Referred To Contact XR IMAGING Diagnoses Lumbar spondylosis Procedures XR LUMBAR LIMITED 2V FLEX/EXT RADEX SPINE LUMBOSACRAL 2/3 VIEWS Quita Barth, BIOINFORMATICS SOFTWARE ENGINEER.WEIGHT ANALYST [address] [place] [address] Xr Imaging Referral ID Status Reason Start Date Expiration Date V isits Requested Visits Authorized [id number] Closed Auto-Generate d Referral 01/06/2022 02/05/2023 1 1 [facility] for visit Narrative* Outpatient Procedure (Routine) - Closed Specialty Diagnoses / Procedures Referred By Contac t Referred To Contact [facility] Diagnoses Gastroesophageal reflux disease, unspecified whether esophagitis present Hoarseness, chronic Procedures EGD DIAGNOSTIC ESOPHAGOGASTRODUODENOSC OPY TRANSORAL DIAGNOSTIC Delia Mckeon PA-C [address] [place] [address] [facility] [address] [address] Referral ID Status Reason Start Date Expiration Date V isits Requested Visits Authorized [id number] Closed Auto-Generate d Referral 07/26/2022 07/26/2023 1 1 [facility] for visit Narrative* Outpatient Procedure (Routine) - Closed Specialty Diagnoses / Procedures Referred By Contac t Referred To Contact [facility] Diagnoses Other constipation Nausea Abnormal MRI of abdomen Procedures COLONOSCOPY DIAGNOSTIC COLONOSCOPY FLX DX W/COLLJ SPEC WHEN PFRMD Dee Concepcion PA-C [address] [place] [address] [facility] [address] [place] [address] Referral ID Status Reason Start Date Expiration Date V isits Requested Visits Authorized [id number] Closed Auto-Generate d Referral 01/03/2023 01/04/2024 1 1 [facility] for visit Narrative* Diagnostic Procedure Only (Routine) - Closed Specialty Diagnoses / Procedures Referred By Contac t Referred To Contact [facility] Diagnoses Chest discomfort Procedures NM CARDIAC PERF STRESS/PHARM MYOCARDIAL SPECT MULTIPLE STUDIES Angie Aguirre, BIOINFORMATICS SOFTWARE ENGINEER.WEIGHT ANALYST [address] [place] [address] [facility] [address] [place] [address] Referral ID Status Reason Start Date Expiration Date V isits Requested Visits Authorized [id number] Closed Auto-Generate d Referral 06/06/2023 07/05/2024 1 1 [facility] for visit Narrative* Diagnostic Procedure Only (Routine) - Closed Specialty Diagnoses / Procedures Referred By Contac t Referred To Contact XR IMAGING Diagnoses Foot pain, right Procedures XR FOOT GENERAL 3V AP/LAT/OBL RIGHT RADEX FOOT COMPLETE MINIMUM 3 VIEWS Angie Aguirre APRN.WEIGHT ANALYST [address] [place] [address] [place] [address] Referral ID Status Reason Start Date Expiration Date V isits Requested Visits Authorized [id number] Closed Auto-Generate d Referral 11/04/2023 12/03/2024 1 1 [facility] for visit Narrative* Diagnostic Procedure Only (Routine) - Closed Specialty Diagnoses / Procedures Referred By Contac t Referred To Contact XR IMAGING Diagnoses Pain in right hip Procedures XR HIP GENERAL 3V PELV/AP/LAT RIGHT RADEX HIP UNILATERAL WITH PELVIS 2-3 VIEWS Albin Balderrama V, DO [address] [place] [address] [place] [address] Referral ID Status Reason Start Date Expiration Date V isits Requested Visits Authorized [id number] Closed Auto-Generate d Referral 11/29/2023 12/28/2024 1 1 [facility] for visit Narrative* Diagnostic Procedure Only (Routine) - Closed Specialty Diagnoses / Procedures Referred By Contac t Referred To Contact BR IMAGING Diagnoses Encounter for screening mammogram for breast cancer Procedures MARK SCREENING W CHIQUITA SCREENING DIGITAL BREAST TOMOSYNTHESIS BI SCREENING MAMMOGRAPHY BI 2-VIEW BREAST INC CAD Angie Aguirre, BIOINFORMATICS SOFTWARE ENGINEER.WEIGHT ANALYST [address] [place] [address] [facility] [address] [place] [address] Referral ID Status Reason Start Date Expiration Date V isits Requested Visits Authorized [id number] Closed Auto-Generate d Referral 11/22/2022 12/22/2023 1 1 [facility] for visit Narrative* Diagnostic Procedure Only (Routine) - Authorized Specialty Diagnoses / Procedures Referred By Contac t Referred To Contact BR IMAG[facility] Diagnoses Inconclusive mammogram Procedures US BREAST LTD LEFT US BREAST UNI REAL TIME WITH IMAGE LIMITED Angie Aguirre, JAGDEEP.WEIGHT ANALYST [address] [place] [address] [facility] [address] [place] [address] Referral ID Status Reason Start Date Expiration Date Visits Requested Visits Authorized [id number] Authorized Auto-Generat ed Referral 12/07/2023 01/05/2025 1 1 [facility] for visit Narrative* Diagnostic Procedure Only (Routine) - Closed Specialty Diagnoses / Procedures Referred By Contac t Referred To Contact [facility] IM[facility] Diagnoses Inconclusive mammogram Procedures MARK DIAGNOSTIC BILATERAL DIAGNOSTIC MAMMOGRAPHY COMPUTER-AIDED DETCJ BI Angie Aguirre APRN.WEIGHT ANALYST [address] [place] [address] [facility] [address] [place] [address] Referral ID Status Reason Start Date Expiration Date V isits Requested Visits Authorized [id number] Closed Auto-Generate d Referral 12/07/2023 01/05/2025 1 1 [facility] for visit Narrative* Diagnostic Procedure Only (Routine) - Closed Specialty Diagnoses / Procedures Referred By Contac t Referred To Contact XR IMAGING Diagnoses Asymptomatic postmenopausal status Procedures DXA-AXIAL SKELETON Angie Aguirre, JAGDEEP.WEIGHT ANALYST [address] [place] [address] [place] [address] Referral ID Status Reason Start Date Expiration Date V isits Requested Visits Authorized [id number] Closed Auto-Generate d Referral 02/03/2024 03/04/2025 1 1 [facility] for visit Narrative* Diagnostic Procedure Only (Routine) - Closed Specialty Diagnoses / Procedures Referred By Contac t Referred To Contact XR IMAGING Diagnoses Hip pain Procedures XR HIP BILATERAL 5V PEL/AP/LAT EACH HIP RADEX HIPS BILATERAL WITH PELVIS MINIMUM 5 VIEWS Shira Rowe BIOINFORMATICS SOFTWARE ENGINEER.WEIGHT ANALYST [address] [place] [address] [place] [address] Referral ID Status Reason Start Date Expiration Date V isits Requested Visits Authorized [id number] Closed Auto-Generate d Referral 08/19/2022 09/18/2023 1 1 [facility] for visit Narrative* Diagnostic Procedure Only (Routine) - Authorized Specialty Diagnoses / Procedures Referred By Contac t Referred To Contact [facility] IMAG[facility] Diagnoses Inconclusive mammogram Procedures US BREAST LTD RIGHT US BREAST UNI REAL TIME WITH IMAGE LIMITED Angie Aguirre, BIOINFORMATICS SOFTWARE ENGINEER.WEIGHT ANALYST [address] [place] [address] [facility] [address] [place] [address] Referral ID Status Reason Start Date Expiration Date Visits Requested Visits Authorized [id number] Authorized Auto-Generat ed Referral 01/28/2025 1 1 [facility] for visit Narrative* Diagnostic Procedure Only (Routine) - Closed Specialty Diagnoses / Procedures Referred By Contac t Referred To Contact BR IMAG[facility] Diagnoses Inconclusive mammogram Procedures MARK DIAGNOSTIC RIGHT DIAGNOSTIC MAMMOGRAPHY COMPUTER-AIDED DETCJ UNI Angie Aguirre, BIOINFORMATICS SOFTWARE ENGINEER.WEIGHT ANALYST [address] [place] [address] [facility] [address] [place] [address] Referral ID Status Reason Start Date Expiration Date V isits Requested Visits Authorized [id number] Closed Auto-Generate d Referral 05/31/2024 01/28/2025 1 1 [facility] for visit Narrative* Diagnostic Procedure Only (Routine) - Closed Specialty Diagnoses / Procedures Referred By Contac t Referred To Contact XR IMAGING Diagnoses Lumbar back pain Procedures XR LUMBAR GENERAL 3V AP/LAT/L5-S1 RADEX SPINE LUMBOSACRAL 2/3 VIEWS Angie Aguirre, BIOINFORMATICS SOFTWARE ENGINEER.WEIGHT ANALYST [address] [place] [address] [place] [address] Referral ID Status Reason Start Date Expiration Date V isits Requested Visits Authorized [id number] Closed Auto-Generate d Referral 08/13/2024 09/12/2025 1 1 [facility] for visit Narrative* Diagnostic Procedure Only (Urgent) - Closed Specialty Diagnoses / Procedures Referred By Contac t Referred To Contact XR IMAGING Diagnoses Leg injury, right, initial encounter Procedures XR TIBIA FIBULA 2V AP/LAT RIGHT RADIOLOGIC EXAMINATION TIBIA & FIBULA 2 VIEWS Nelsy Lawton, BIOINFORMATICS SOFTWARE ENGINEER.WEIGHT ANALYST [address] [place] [address] Phone: tel: fax: [place] [address] Referral ID Status Reason Start Date Expiration Date V isits Requested Visits Authorized [id number] Closed Auto-Generate d Referral 12/04/2024 01/03/2026 1 1 [facility] for visit Narrative* Diagnostic Procedure Only (Routine) - Closed Specialty Diagnoses / Procedures Referred By Contac t Referred To Contact BR IMAGING Diagnoses Inconclusive mammogram Procedures MARK DIAG W CHIQUITA BILATERAL DIGITAL BREAST TOMOSYNTHESIS BILATERAL Angie Aguirre, BIOINFORMATICS SOFTWARE ENGINEER.WEIGHT ANALYST [address] [place] [address] Phone: tel: fax: [facility] [address] [place] [address] Referral ID Status Reason Start Date Expiration Date V isits Requested Visits Authorized [id number] Closed Auto-Generate d Referral 12/05/2024 07/06/2025 1 1 [facility] for visit Narrative* Diagnostic Procedure Only (Routine) - Closed Specialty Diagnoses / Procedures [facility] To [facility] Diagnoses Mammographic microcalcification found on diagnostic imaging of breast Procedures MARK STEREO BX BREAST RIGHT BX BREAST W/DEVICE 1ST [facility] Meagan Cárdenas MD [address] [place] [address] Phone: tel: fax: [facility] [address] [place] [address] Referral ID Status Reason Start Date Expiration Date V isits Requested Visits Authorized [id number] Closed Auto-Generate d Referral 01/16/2025 02/15/2026 1 1 [facility] Family History No Family History Records FoundUnknown Family Member Name Dates Details Brother 1 Comments:Depression, Back pr oblems- osteoarthritis Status:Active Father Comments:Chronic Brain Syndr ome- from car accident. at about age 70.- osteoporosis, mental health history Status:Active Maternal Grandfather Comments:stroke Status:Active Mother Comments:Diabetes. age 79. stroke cause of -multinfarct dementia Status:Active Sister 1 Comments:Obese and HTN. Status:Active Relationship Condition Age at Onset Recorded Date/T hussain sister Hypertension Unknown grandfather Cerebrovascular accident (CVA) Unknown mother Cerebrovascular accident (CVA) Unknown Diabetes mellitus Unknown Seizure Unknown Dementia Unknown father Osteoporosis Unknown Mental health problem Unknown Instructions Name Dates Details How to access health informa tion online Indication:BMI 26.0-26.9,adult Start:10-Dec-2016 Instruction Type:Patient Education How to access health informa tion online - Detail Indication:BMI 26.0-26.9,adult Start:10-Dec-2016 Instruction Type:Patient Education Patient Instructions Indication:BMI 26.0-26.9,adult Start:10-Dec-2016 Instruction Type:Provider Instructions for Treatment How to access health informa tion online Indication:[facility] Start:19-Jul-2016 Instruction Type:Patient Education How to access health informa tion online - Detail Indication:[facility] Start:19-Jul-2016 Instruction Type:Patient Education Patient Instructions Indication:[facility] Start:19-Jul-2016 Instruction Type:Provider Instructions for Treatment How to access health informa tion online Indication:Abdominal pain, acute, right upper quadrant (Renamed from Acute abdominal pain in right upper quadrant) Start:28-May-2016 Instruction Type:Patient Education How to access health informa tion online - Detail Indication:Abdominal pain, acute, right upper quadrant (Renamed from Acute abdominal pain in right upper quadrant) Start:28-May-2016 Instruction Type:Patient Education Patient Instructions Indication:Abdominal pain, acute, right upper quadrant (Renamed from Acute abdominal pain in right upper quadrant) Start:28-May-2016 Instruction Type:Provider Instructions for Treatment How to access health informa tion online Indication:Moderate persistent asthma without complication Start:19-Apr-2016 Instruction Type:Patient Education How to access health informa tion online - Detail Indication:Moderate persistent asthma without complication Start:19-Apr-2016 Instruction Type:Patient Education Patient Instructions Indication:Moderate persistent asthma without complication Start:19-Apr-2016 Instruction Type:Provider Instructions for Treatment How to access health informa tion online Indication:Boil, vagina Start:22-Mar-2016 Instruction Type:Patient Education How to access health informa tion online - Detail Indication:Boil, vagina Start:22-Mar-2016 Instruction Type:Patient Education Patient Instructions Indication:Boil, vagina Start:22-Mar-2016 Instruction Type:Provider Instructions for Treatment How to access health informa tion online Indication:Cough Start:12-Feb-2016 Instruction Type:Patient Education How to access health informa tion online - Detail Indication:Cough Start:12-Feb-2016 Instruction Type:Patient Education Patient Instructions Indication:Cough Start:12-Feb-2016 Instruction Type:Provider Instructions for Treatment How to access health informa tion online Indication:Acquired hypothyroidism Start:20-Oct-2015 Instruction Type:Patient Education How to access health informa tion online - Detail Indication:Acquired hypothyroidism Start:20-Oct-2015 Instruction Type:Patient Education Patient Instructions Indication:Acquired hypothyroidism Start:20-Oct-2015 Instruction Type:Provider Instructions for Treatment How to access health informa tion online Indication:Acute maxillary sinusitis, recurrence not specified Start:03-Jul-2015 Instruction Type:Patient Education How to access health informa tion online - Detail Indication:Acute maxillary sinusitis, recurrence not specified Start:03-Jul-2015 Instruction Type:Patient Education Patient Instructions Indication:Acute maxillary sinusitis, recurrence not specified Start:03-Jul-2015 Instruction Type:Provider Instructions for Treatment How to access health informa tion online Indication:Chronic lumbar radiculopathy Start:27-May-2015 Instruction Type:Patient Education How to access health informa tion online - Detail Indication:Chronic lumbar radiculopathy Start:27-May-2015 Instruction Type:Patient Education Patient Instructions Indication:Chronic lumbar radiculopathy Start:27-May-2015 Instruction Type:Provider Instructions for Treatment How to access health informa tion online Indication:Chronic lumbar radiculopathy Start:01-May-2015 Instruction Type:Patient Education How to access health informa tion online - Detail Indication:Chronic lumbar radiculopathy Start:01-May-2015 Instruction Type:Patient Education Patient Instructions Indication:Chronic lumbar radiculopathy Start:01-May-2015 Instruction Type:Provider Instructions for Treatment How to access health informa [place] online Indication:Other hyperlipidemia Start:09-Apr-2015 Instruction Type:Patient Education How to access health informa tion online - Detail Indication:Other hyperlipidemia Start:09-Apr-2015 Instruction Type:Patient Education Patient Instructions Indication:Other hyperlipidemia Start:09-Apr-2015 Instruction Type:Provider Instructions for Treatment Patient Instructions Indication:Fatigue Start:05-Mar-2015 Instruction Type:Provider Instructions for Treatment Patient Instructions Indication:Asthma with acute exacerbation Start:28-Jan-2015 Instruction Type:Provider Instructions for Treatment Patient Instructions Indication:Acquired hypothyroidism Start:30-Dec-2014 Instruction Type:Provider Instructions for Treatment Patient Instructions Indication:Acquired hypothyroidism Start:09-Oct-2014 Instruction Type:Provider Instructions for Treatment Patient Instructions Indication:Shortness of breath Start:23-Jul-2014 Instruction Type:Provider Instructions for Treatment Patient Instructions Indication:Abdominal pain, acute, generalized Start:30-Apr-2014 Instruction Type:Provider Instructions for Treatment How to access [employer] online Indication:Encounter for Medicare annual wellness exam Start:10-Apr-2014 Instruction Type:Patient Education How to access health informa tion online - Detail Indication:Encounter for Medicare annual wellness exam Start:10-Apr-2014 Instruction Type:Patient Education Patient Instructions Indication:Encounter for Medicare annual wellness exam Start:10-Apr-2014 Instruction Type:Provider Instructions for Treatment Patient Instructions Indication:Other hyperlipidemia Start:05-Dec-2013 Instruction Type:Provider Instructions for Treatment Patient Instructions Indication:Other hyperlipidemia Start:07-Aug-2013 Instruction Type:Provider Instructions for Treatment Patient Instructions Indication:Other hyperlipidemia Start:09-Apr-2013 Instruction Type:Provider Instructions for Treatment Patient Instructions Indication:Impaired Fasting Glucose Start:12-Feb-2013 Instruction Type:Provider Instructions for Treatment Patient Instructions Indication:Other hyperlipidemia Start:16-Jan-2013 Instruction Type:Provider Instructions for Treatment Patient Instructions Indication:GERD (gastroesophageal reflux disease) Start:25-Oct-2012 Instruction Type:Provider Instructions for Treatment Patient Instructions Indication:Cough Start:04-Sep-2012 Instruction Type:Provider Instructions for Treatment Patient Instructions Indication:Acute sinusitis, unspecified Start:18-Jul-2012 Instruction Type:Provider Instructions for Treatment Patient Instructions Indication:Bruise Start:23-Jun-2012 Instruction Type:Provider Instructions for Treatment Summary Purpose Advance Directives No Advanced Directives Records FoundDocuments on File Type Date Recorded Patient Professor Of Practice Expl anation Advance Directive(s) 10/20/2021 9:20 AM Advance Directive(s) 10/15/2021 4:51 PM Advance Directive(s) 10/08/2021 12:35 PM Advance Directive(s) 09/21/2019 8:58 AM Advance Directive(s) 08/31/2019 7:13 AM Sc anned 08-31-2019 Advance Directive(s) 08/31/2019 7:11 AM Advance Directive(s) 08/07/2019 5:10 PM Advance Directive(s) 09/15/2016 1:27 PM Documents on File Type Date Recorded Patient Professor Of Practice Expl anation Advance Directive(s) 10/20/2021 9:20 AM Advance Directive(s) 10/15/2021 4:51 PM Advance Directive(s) 10/08/2021 12:35 PM Advance Directive(s) 09/21/2019 8:58 AM Advance Directive(s) 08/31/2019 7:13 AM Sc anned 08-31-2019 Advance Directive(s) 08/31/2019 7:11 AM Advance Directive(s) 08/07/2019 5:10 PM Advance Directive(s) 09/15/2016 1:27 PM Documents on File Type Date Recorded Patient Professor Of Practice Expl anation Advance Directive(s) 12/15/2021 8:26 AM Advance Directive(s) 12/02/2021 9:42 AM Advance Directive(s) 12/02/2021 9:43 AM Advance Directive(s) 10/20/2021 9:20 AM Advance Directive(s) 10/15/2021 4:51 PM Advance Directive(s) 10/08/2021 12:35 PM Advance Directive(s) 09/21/2019 8:58 AM Advance Directive(s) 08/31/2019 7:13 AM Sc anned 08-31-2019 Advance Directive(s) 08/31/2019 7:11 AM Advance Directive(s) 08/07/2019 5:10 PM Advance Directive(s) 09/15/2016 1:27 PM Documents on File Type Date Recorded Patient Professor Of Practice Expl anation Advance Directive(s) 01/05/2022 1:32 PM Advance Directive(s) 12/15/2021 8:26 AM Advance Directive(s) 12/02/2021 9:42 AM Advance Directive(s) 12/02/2021 9:43 AM Advance Directive(s) 10/20/2021 9:20 AM Advance Directive(s) 10/15/2021 4:51 PM Advance Directive(s) 10/08/2021 12:35 PM Advance Directive(s) 09/21/2019 8:58 AM Advance Directive(s) 08/31/2019 7:13 AM Sc anned 08-31-2019 Advance Directive(s) 08/31/2019 7:11 AM Advance Directive(s) 08/07/2019 5:10 PM Advance Directive(s) 09/15/2016 1:27 PM Documents on File Type Date Recorded Patient Professor Of Practice Expl anation Advance Directive(s) 01/05/2022 1:32 PM Advance Directive(s) 12/15/2021 8:26 AM Advance Directive(s) 12/02/2021 9:42 AM Advance Directive(s) 12/02/2021 9:43 AM Advance Directive(s) 10/20/2021 9:20 AM Advance Directive(s) 10/15/2021 4:51 PM Advance Directive(s) 10/08/2021 12:35 PM Advance Directive(s) 09/21/2019 8:58 AM Advance Directive(s) 08/31/2019 7:13 AM Sc anned 08-31-2019 Advance Directive(s) 08/31/2019 7:11 AM Advance Directive(s) 08/07/2019 5:10 PM Advance Directive(s) 09/15/2016 1:27 PM Documents on File Type Date Recorded Patient Professor Of Practice Expl anation Advance Directive(s) 08/31/2019 7:11 AM Advance Directive Response Recorded Date/ Time Living Will Yes December 03, 2020 8:52am Power of Clinic Lpn Yes December 03 8:52am Documents on File Type Date Recorded Patient Professor Of Practice Expl anation Advance Directive(s) 08/31/2019 7:11 AM Advance Directive Response Recorded Date/ Time [facility]56[facility] Living Will Yes June 16 9:56am Power of Clinic Lpn Yes June 16, 2023 9:56am Advance Directive Response Recorded Date/ Time Name of [facility] June 16, 2023 3:26pm Living Will Yes June 16 3:26pm Power of Clinic Lpn Yes June 16, 2023 3:26pm Reason for Referral Specialty Diagnoses / Procedures Referred By Contac t Referred To Contact Diagnoses Pain Procedures [facility] Mallorie Swann MD [address] [place] [address] [place] [address] Referral ID Status Reason Start Date Expiration Date V isits Requested Visits Authorized [id number] New Request 03/16/2021 04/10/2022 1 1 Specialty Diagnoses / Procedures Referred By Contac t Referred To Contact [facility] Diagnoses Lumbar spondylosis Procedures CONSULT TO PHYSICAL THERAPY PHYSICAL THERAPY EVALUATION HIGH COMPLEX 45 MINS Quita Barth, BIOINFORMATICS SOFTWARE ENGINEER.WEIGHT ANALYST [address] [place] [address] [facility] [address] [address] Referral ID Status Reason Start Date Expiration Date Visits Requested Visits Authorized [id number] Authorized PCP Requested Referral Auto-Generate d Referral 01/06/2022 01/06/2023 99 99 Specialty Diagnoses / Procedures Referred By Contac t Referred To Contact [facility] Diagnoses Lumbosacral radiculitis Procedures CONSULT TO PHYSICAL THERAPY PHYSICAL THERAPY EVALUATION HIGH COMPLEX 45 MINS Albin Balderrama V, DO [address] [place] [address] [facility] [address] [address] Referral ID Status Reason Start Date Expiration Date Visits Requested Visits Authorized [id number] Authorized PCP Requested Referral Auto-Generate d Referral 08/27/2022 08/27/2023 99 99 Specialty Diagnoses / Procedures Referred By Contac t Referred To Contact [facility] Diagnoses Lumbosacral radiculitis Procedures PT REHAB FOLLOW UP ORDER THERAPEUTIC EXERCISES RE, EA 15 MIN. Reza Valerio, PT [address] [place] [address] [facility] [address] [address] Referral ID Status Reason Start Date Expiration Date Visits Requested Visits Authorized [id number] Pending Review PCP Requested Referral Auto-Generate d Referral 09/03/2022 12/02/2022 1 1 Referral ID Status Reason Start Date Expiration Date Visits Requested Visits Authorized [id number] Pending Review PCP Requested Referral Auto-Generate d Referral 09/24/2022 12/23/2022 1 1 Referral ID Status Reason Start Date Expiration Date Visits Requested Visits Authorized [id number] Pending Review PCP Requested Referral Auto-Generate d Referral 11/18/2022 02/16/2023 1 1 Specialty Diagnoses / Procedures Referred By Contac t Referred To Contact [facility] Diagnoses Dizziness Procedures CONSULT TO PHYSICAL THERAPY PHYSICAL THERAPY EVALUATION HIGH COMPLEX 45 MINS Angie Aguirre, BIOINFORMATICS SOFTWARE ENGINEER.WEIGHT ANALYST [address] [place] [address] [facility] [address] [address] Referral ID Status Reason Start Date Expiration Date Visits Requested Visits Authorized [id number] Authorized PCP Requested Referral Auto-Generate d Referral 11/22/2022 11/22/2023 99 99 Specialty Diagnoses / Procedures Referred By Contac t Referred To Contact [facility] Diagnoses Encounter for screening mammogram for breast cancer Procedures MARK SCREENING W CHIQUITA SCREENING DIGITAL BREAST TOMOSYNTHESIS BI SCREENING MAMMOGRAPHY BI 2-VIEW BREAST INC CAD Angie Aguirre, BIOINFORMATICS SOFTWARE ENGINEER.WEIGHT ANALYST [address] [place] [address] [facility] [address] [place] [phone] Referral ID Status Reason Start Date Expiration Date Visits Requested Visits Authorized [id number] Pending Review Auto-Generat ed Referral 11/22/2022 12/22/2023 1 1 Specialty Diagnoses / Procedures Referred By Contac t Referred To Contact [facility] Diagnoses Lumbar spondylosis Procedures PT REHAB FOLLOW UP ORDER THERAPEUTIC EXERCISES RE, EA 15 MIN. Pt c Bath [address] [place] [address] [facility] [address] [address] Referral ID Status Reason Start Date Expiration Date Visits Requested Visits Authorized [id number] Pending Review PCP Requested Referral Auto-Generate d Referral 02/21/2023 05/22/2023 1 1 Specialty Diagnoses / Procedures Referred By Contac t Referred To Contact CT [facility] Diagnoses Spinal stenosis of lumbar region with neurogenic claudication Procedures CT LUMBAR SPINE WO IVCON CT LUMBAR SPINE W/O CONTRAST MATERIAL Lars Alcantar MD [address] [place] [address] [place] [address] Referral ID Status Reason Start Date Expiration Date V isits Requested Visits Authorized [id number] Closed Auto-Generate d Referral 12/29/2022 01/28/2024 1 1 Specialty Diagnoses / Procedures Referred By Contac t Referred To Contact [facility] Diagnoses Spinal stenosis of lumbar region with neurogenic claudication Procedures MRI LUMBAR SPINE WO/W IVCON MRI SPINAL CANAL LUMBAR W/O & W/CONTR MATRL Lars Alcantar MD [address] [place] [address] [facility] Referral ID Status Reason Start Date Expiration Date V isits Requested Visits Authorized [id number] Closed Auto-Generate d Referral 12/29/2022 01/28/2024 1 1 Specialty Diagnoses / Procedures Referred By Contac t Referred To Contact [facility] Diagnoses Hamstring strain, right, initial encounter Procedures CONSULT TO PHYSICAL THERAPY PHYSICAL THERAPY EVALUATION HIGH COMPLEX 45 MINS Albin Balderrama, V, DO [address] [place] [address] [facility] [place] [address] [place] [address] Referral ID Status Reason Start Date Expiration Date Visits Requested Visits Authorized [id number] Authorized PCP Requested Referral Auto-Generate d Referral 11/30/2023 11/29/2024 99 99 Medications Administered Section Inactive Administered Medications - up to 3 most recent administrations Medication Order MAR Action Action Date Dose Rate Site betamethasone acetate-betamethasone sodium phosphate 3 mg injection (CELESTONE) 3 mg, OTHER, ONCE, 1 dose, On Tue12/16/21 at 1500, Intra-Articular Protect From Light. Given 12/16/2021 2:58 PM EDT 3 mg Active Administered Medications - up to 3 most recent administrations Medication Order MAR Action Action Date Dose Rate Site denosumab 60 mg injection (PROLIA) 60 mg, SUBCUTANEOUS, EVERY 6 MONTHS, 2 doses, First dose on Tue01/22/22 at 0930, Last dose on Tue07/21/22 at 0930, Allow To Come To Room Temperature Before Administration. REFRIGERATE Given 03/09/2022 10:28 AM EDT 60 mg Arm, Left Inactive Administered Medications - up to 3 most recent administrations Medication Order MAR Action Action Date Dose Rate Site betamethasone acetate-betamethasone sodium phosphate 3 mg injection (CELESTONE) 3 mg, OTHER, ONCE, 1 dose, On Tue04/28/22 at 1430, right radial styloid Protect From Light. Given 04/28/2022 2:24 PM EDT 3 mg Inactive Administered Medications - up to 3 most recent administrations Medication Order MAR Action Action Date Dose Rate Site denosumab 60 mg injection (PROLIA) 60 mg, SUBCUTANEOUS, EVERY 6 MONTHS, 2 doses, First dose on Tue01/22/22 at 0930, Last dose on Tue07/21/22 at 0930, Allow To Come To Room Temperature Before Administration. REFRIGERATE Given 09/09/2022 11:03 AM EST 60 mg Arm, Left Given 03/09/2022 10:28 AM EDT 60 mg A rm, Left Inactive Administered Medications - up to 3 most recent administrations Medication Order MAR Action Action Date Dose Rate Site diphenhydrAMINE injection (BENADRYL) INTRAVENOUS, X (OR/PROCEDURE) PRN, Starting on Tue11/15/22 at 1000, Until Tue11/15/22 at 1000, Intraprocedure Given 11/15/2022 10:00 AM EDT 25 mg fentaNYL 50 mcg/mL injection (SUBLIMAZE) INTRAVENOUS, X (OR/PROCEDURE) PRN, Starting on Tue11/15/22 at 1000, Until Tue11/15/22 at 1000, Intraprocedure Given 11/15/2022 10:00 AM EDT 50 mcg midazolam (PF) injection (VERSED) INTRAVENOUS, X (OR/PROCEDURE) PRN, Starting on Tue11/15/22 at 1000, Until Tue11/15/22 at 1002, Intraprocedure Given 11/15/2022 10:02 AM EDT 0.5 mg Given 11/15/2022 10:00 AM EDT 2 mg NaCl 0.9% iv infusion 30 mL/hr, INTRAVENOUS, CONTINUOUS, Starting on Tue11/15/22 at 0930, Until Tue11/16/22 at 0417, Preprocedure New Bag/Syringe/Bottle 11/15/2022 9:42 AM EDT 30 mL/hr 30 mL/hr Active Administered Medications - up to 3 most recent administrations Medication Order MAR Action Action Date Dose Rate Site denosumab 60 mg injection (PROLIA) 60 mg, SUBCUTANEOUS, EVERY 6 MONTHS, 2 doses, First dose on Tue03/10/23 at 0000, Last dose on Tue09/06/23 at 0000, Allow To Come To Room Temperature Before Administration. REFRIGERATE Given 03/10/2023 9:50 AM EDT 60 mg Arm, Right Inactive Administered Medications - up to 3 most recent administrations Medication Order MAR Action Action Date Dose Rate Site diphenhydrAMINE 12.5-50 mg injection (BENADRYL) 12.5-50 mg, INTRAVENOUS, DIRECTED, Starting on Tue03/04/23 at 0900, Until Tue03/04/23 at 1259, DOSING DIRECTED BY PHYSICIAN FOR PROCEDURAL SEDATION ONLY, Intraprocedure Given 03/04/2023 8:39 AM EDT 50 mg fentaNYL 50 mcg/mL 25-100 mcg injection (SUBLIMAZE) 25-100 mcg, INTRAVENOUS, DIRECTED, Starting on Tue03/04/23 at 0900, Until Tue03/04/23 at 1259, DOSING DIRECTED BY PHYSICIAN FOR PROCEDURAL SEDATION ONLY, Intraprocedure Given 03/04/2023 8:43 AM EDT 25 mcg Given 03/04/2023 8:37 AM EDT 50 mcg lactated ringers iv infusion 30 mL/hr, INTRAVENOUS, CONTINUOUS, Starting on Tue03/04/23 at 0800, Until Tue03/04/23 at 0908, Preprocedure New Bag/Syringe/Bottle 03/04/2023 8:12 AM EDT 30 mL/hr 30 mL/hr Arm, Right midazolam 1-5 mg injection (VERSED) 1-5 mg, INTRAVENOUS, DIRECTED, Starting on Tue03/04/23 at 0900, Until Tue03/04/23 at 1259, DOSING DIRECTED BY PHYSICIAN FOR PROCEDURAL SEDATION ONLY, Intraprocedure Given 03/04/2023 8:43 AM EDT 1 mg Given 03/04/2023 8:37 AM EDT 3 mg Chief Complaint and Reason for Visit Chief Complaint fu for medications 2 W FU DE QUERVAINS TENOSYNOVITIS/RX HERE Reason for Visit Asthma Asthma GERD (gastroesophageal reflux disease) Chief Complaint fu for medications 2 W FU DE QUERVAINS TENOSYNOVITIS/RX HERE 2 M FU Reason for Visit Asthma Asthma GERD (gastroesophageal reflux disease) Asthma Chief Complaint REEVAL Back pain GENERALIZED WEAKNESS WITH POSSIBLE PNA Reason for Visit Neck pain Segmental and somatic dysfunction of cervical region Segmental and somatic dysfunction of thoracic region Degenerative disc disease Neck pain Segmental and somatic dysfunction of cervical region Segmental and somatic dysfunction of thoracic region Degenerative disc disease Debility General weakness Leukocytosis Pneumonia Chief Complaint REEVAL Back pain GENERALIZED WEAKNESS WITH POSSIBLE PNA GENERALIZED WEAKNESS WITH POSSIBLE PNA GENERALIZED WEAKNESS WITH POSSIBLE PNA GENERALIZED WEAKNESS WITH POSSIBLE PNA Reason for Visit Neck pain Segmental and somatic dysfunction of cervical region Segmental and somatic dysfunction of thoracic region Degenerative disc disease Neck pain Segmental and somatic dysfunction of cervical region Segmental and somatic dysfunction of thoracic region Degenerative disc disease Abnormal chest x-ray Debility General weakness Leukocytosis Pneumonia Chief Complaint Admit Date ASTHMA FLARE UP, GREEN MUCUS December 15, 2024 11:09am Acute December 18, 2024 3:1 3pm 3 wk fu January 08, 2025 9:42a m Reason for Visit Admit Date Bronchitis due to tobacco use November 11:09am Asthma December 18, 2024 3:1 3pm Reason for Visit Admit Date Bronchitis due to tobacco use November 11:09am Asthma December 18, 2024 3:1 3pm Oral thrush January 08, 2025 9:42a m Postnasal drip January 08, 2025 9:42a m Asthma January 08, 2025 9:42a m Chief Complaint Admit Date ASTHMA FLARE UP, GREEN MUCUS December 15, 2024 11:09am Acute December 18, 2024 3:1 3pm 3 wk fu January 08, 2025 9:42a m 3 M FU April 09, 2025 10 :38am Additional Source Comments INFORMATION SOURCE (unrecogn ized section and content) DATE CREATED AUTHOR 09/29/2021 [facility] DATE CREATED AUTHOR AUTHOR'S ORGANIZ ATION 11/16/2023 [facility] DATE CREATED AUTHOR AUTHOR'S ORGANIZ ATION 04/19/2024 [facility] DATE CREATED AUTHOR AUTHOR'S ORGANIZ ATION 04/19/2025 [facility] DATE CREATED AUTHOR AUTHOR'S ORGANIZ ATION 04/20/2025 [facility] Source Comments (unrecognize d section and content) In the event this informatio n is protected by the Federal Confidentiality of Alcohol and Drug Abuse Patient Records regulations: The Federal rules restrict any use of the information to criminally investigate or prosecute any alcohol or drug abuse patient.[facility] CenterIn the event this information is protected by the Federal Confidentiality of Alcohol and Drug Abuse Patient Records regulations: The Federal rules restrict any use of the information to criminally investigate or prosecute any alcohol or drug abuse patient.[facility] CenterIn the event this information is protected by the Federal Confidentiality of Alcohol and Drug Abuse Patient Records regulations: The Federal rules restrict any use of the information to criminally investigate or prosecute any alcohol or drug abuse patient.[facility] CenterIn the event this information is protected by the Federal Confidentiality of Alcohol and Drug Abuse Patient Records regulations: The Federal rules restrict any use of the information to criminally investigate or prosecute any alcohol or drug abuse patient.[facility] CenterIn the event this information is protected by the Federal Confidentiality of Alcohol and Drug Abuse Patient Records regulations: The Federal rules restrict any use of the information to criminally investigate or prosecute any alcohol or drug abuse patient.[facility] CenterIn the event this information is protected by the Federal Confidentiality of Alcohol and Drug Abuse Patient Records regulations: The Federal rules restrict any use of the information to criminally investigate or prosecute any alcohol or drug abuse patient.[facility] CenterIn the event this information is protected by the Federal Confidentiality of Alcohol and Drug Abuse Patient Records regulations: The Federal rules restrict any use of the information to criminally investigate or prosecute any alcohol or drug abuse patient.[facility] CenterIn the event this information is protected by the Federal Confidentiality of Alcohol and Drug Abuse Patient Records regulations: The Federal rules restrict any use of the information to criminally investigate or prosecute any alcohol or drug abuse patient.[facility] CenterIn the event this information is protected by the Federal Confidentiality of Alcohol and Drug Abuse Patient Records regulations: The Federal rules restrict any use of the information to criminally investigate or prosecute any alcohol or drug abuse patient.[facility] CenterIn the event this information is protected by the Federal Confidentiality of Alcohol and Drug Abuse Patient Records regulations: The Federal rules restrict any use of the information to criminally investigate or prosecute any alcohol or drug abuse patient.[facility] CenterIn the event this information is protected by the Federal Confidentiality of Alcohol and Drug Abuse Patient Records regulations: The Federal rules restrict any use of the information to criminally investigate or prosecute any alcohol or drug abuse patient.[facility] CenterIn the event this information is protected by the Federal Confidentiality of Alcohol and Drug Abuse Patient Records regulations: The Federal rules restrict any use of the information to criminally investigate or prosecute any alcohol or drug abuse patient.[facility] CenterIn the event this information is protected by the Federal Confidentiality of Alcohol and Drug Abuse Patient Records regulations: The Federal rules restrict any use of the information to criminally investigate or prosecute any alcohol or drug abuse patient.[facility] CenterIn the event this information is protected by the Federal Confidentiality of Alcohol and Drug Abuse Patient Records regulations: The Federal rules restrict any use of the information to criminally investigate or prosecute any alcohol or drug abuse patient.[facility] CenterIn the event this information is protected by the Federal Confidentiality of Alcohol and Drug Abuse Patient Records regulations: The Federal rules restrict any use of the information to criminally investigate or prosecute any alcohol or drug abuse patient.[facility] CenterIn the event this information is protected by the Federal Confidentiality of Alcohol and Drug Abuse Patient Records regulations: The Federal rules restrict any use of the information to criminally investigate or prosecute any alcohol or drug abuse patient.[facility] CenterIn the event this information is protected by the Federal Confidentiality of Alcohol and Drug Abuse Patient Records regulations: The Federal rules restrict any use of the information to criminally investigate or prosecute any alcohol or drug abuse patient.[facility] CenterIn the event this information is protected by the Federal Confidentiality of Alcohol and Drug Abuse Patient Records regulations: The Federal rules restrict any use of the information to criminally investigate or prosecute any alcohol or drug abuse patient.[facility] CenterIn the event this information is protected by the Federal Confidentiality of Alcohol and Drug Abuse Patient Records regulations: The Federal rules restrict any use of the information to criminally investigate or prosecute any alcohol or drug abuse patient.[facility] CenterIn the event this information is protected by the Federal Confidentiality of Alcohol and Drug Abuse Patient Records regulations: The Federal rules restrict any use of the information to criminally investigate or prosecute any alcohol or drug abuse patient.[facility] CenterIn the event this information is protected by the Federal Confidentiality of Alcohol and Drug Abuse Patient Records regulations: The Federal rules restrict any use of the information to criminally investigate or prosecute any alcohol or drug abuse patient.[facility] CenterIn the event this information is protected by the Federal Confidentiality of Alcohol and Drug Abuse Patient Records regulations: The Federal rules restrict any use of the information to criminally investigate or prosecute any alcohol or drug abuse patient.[facility] CenterIn the event this information is protected by the Federal Confidentiality of Alcohol and Drug Abuse Patient Records regulations: The Federal rules restrict any use of the information to criminally investigate or prosecute any alcohol or drug abuse patient.[facility] CenterIn the event this information is protected by the Federal Confidentiality of Alcohol and Drug Abuse Patient Records regulations: The Federal rules restrict any use of the information to criminally investigate or prosecute any alcohol or drug abuse patient.[facility] CenterIn the event this information is protected by the Federal Confidentiality of Alcohol and Drug Abuse Patient Records regulations: The Federal rules restrict any use of the information to criminally investigate or prosecute any alcohol or drug abuse patient.[facility] CenterIn the event this information is protected by the Federal Confidentiality of Alcohol and Drug Abuse Patient Records regulations: The Federal rules restrict any use of the information to criminally investigate or prosecute any alcohol or drug abuse patient.[facility] CenterIn the event this information is protected by the Federal Confidentiality of Alcohol and Drug Abuse Patient Records regulations: The Federal rules restrict any use of the information to criminally investigate or prosecute any alcohol or drug abuse patient.[facility] CenterIn the event this information is protected by the Federal Confidentiality of Alcohol and Drug Abuse Patient Records regulations: The Federal rules restrict any use of the information to criminally investigate or prosecute any alcohol or drug abuse patient.[facility] CenterIn the event this information is protected by the Federal Confidentiality of Alcohol and Drug Abuse Patient Records regulations: The Federal rules restrict any use of the information to criminally investigate or prosecute any alcohol or drug abuse patient.[facility] CenterIn the event this information is protected by the Federal Confidentiality of Alcohol and Drug Abuse Patient Records regulations: The Federal rules restrict any use of the information to criminally investigate or prosecute any alcohol or drug abuse patient.[facility] CenterIn the event this information is protected by the Federal Confidentiality of Alcohol and Drug Abuse Patient Records regulations: The Federal rules restrict any use of the information to criminally investigate or prosecute any alcohol or drug abuse patient.[facility] the event this information is protected by the Federal Confidentiality of Alcohol and Drug Abuse Patient Records regulations: The Federal rules restrict any use of the information to criminally investigate or prosecute any alcohol or drug abuse patient.[facility] CenterIn the event this information is protected by the Federal Confidentiality of Alcohol and Drug Abuse Patient Records regulations: The Federal rules restrict any use of the information to criminally investigate or prosecute any alcohol or drug abuse patient.[facility] CenterIn the event this information is protected by the Federal Confidentiality of Alcohol and Drug Abuse Patient Records regulations: The Federal rules restrict any use of the information to criminally investigate or prosecute any alcohol or drug abuse patient.[facility] CenterIn the event this information is protected by the Federal Confidentiality of Alcohol and Drug Abuse Patient Records regulations: The Federal rules restrict any use of the information to criminally investigate or prosecute any alcohol or drug abuse patient.[facility] CenterIn the event this information is protected by the Federal Confidentiality of Alcohol and Drug Abuse Patient Records regulations: The Federal rules restrict any use of the information to criminally investigate or prosecute any alcohol or drug abuse patient.[facility] CenterIn the event this information is protected by the Federal Confidentiality of Alcohol and Drug Abuse Patient Records regulations: The Federal rules restrict any use of the information to criminally investigate or prosecute any alcohol or drug abuse patient.[facility] CenterIn the event this information is protected by the Federal Confidentiality of Alcohol and Drug Abuse Patient Records regulations: The Federal rules restrict any use of the information to criminally investigate or prosecute any alcohol or drug abuse patient.[facility] CenterIn the event this information is protected by the Federal Confidentiality of Alcohol and Drug Abuse Patient Records regulations: The Federal rules restrict any use of the information to criminally investigate or prosecute any alcohol or drug abuse patient.[facility] CenterIn the event this information is protected by the Federal Confidentiality of Alcohol and Drug Abuse Patient Records regulations: The Federal rules restrict any use of the information to criminally investigate or prosecute any alcohol or drug abuse patient.[facility] CenterIn the event this information is protected by the Federal Confidentiality of Alcohol and Drug Abuse Patient Records regulations: The Federal rules restrict any use of the information to criminally investigate or prosecute any alcohol or drug abuse patient.[facility] CenterIn the event this information is protected by the Federal Confidentiality of Alcohol and Drug Abuse Patient Records regulations: The Federal rules restrict any use of the information to criminally investigate or prosecute any alcohol or drug abuse patient.[facility] CenterIn the event this information is protected by the Federal Confidentiality of Alcohol and Drug Abuse Patient Records regulations: The Federal rules restrict any use of the information to criminally investigate or prosecute any alcohol or drug abuse patient.[facility] CenterIn the event this information is protected by the Federal Confidentiality of Alcohol and Drug Abuse Patient Records regulations: The Federal rules restrict any use of the information to criminally investigate or prosecute any alcohol or drug abuse patient.[facility] CenterIn the event this information is protected by the Federal Confidentiality of Alcohol and Drug Abuse Patient Records regulations: The Federal rules restrict any use of the information to criminally investigate or prosecute any alcohol or drug abuse patient.[facility] CenterIn the event this information is protected by the Federal Confidentiality of Alcohol and Drug Abuse Patient Records regulations: The Federal rules restrict any use of the information to criminally investigate or prosecute any alcohol or drug abuse patient.[facility] CenterIn the event this information is protected by the Federal Confidentiality of Alcohol and Drug Abuse Patient Records regulations: The Federal rules restrict any use of the information to criminally investigate or prosecute any alcohol or drug abuse patient.[facility] CenterIn the event this information is protected by the Federal Confidentiality of Alcohol and Drug Abuse Patient Records regulations: The Federal rules restrict any use of the information to criminally investigate or prosecute any alcohol or drug abuse patient.[facility] CenterIn the event this information is protected by the Federal Confidentiality of Alcohol and Drug Abuse Patient Records regulations: The Federal rules restrict any use of the information to criminally investigate or prosecute any alcohol or drug abuse patient.[facility] CenterIn the event this information is protected by the Federal Confidentiality of Alcohol and Drug Abuse Patient Records regulations: The Federal rules restrict any use of the information to criminally investigate or prosecute any alcohol or drug abuse patient.[facility] CenterIn the event this information is protected by the Federal Confidentiality of Alcohol and Drug Abuse Patient Records regulations: The Federal rules restrict any use of the information to criminally investigate or prosecute any alcohol or drug abuse patient.[facility] CenterIn the event this information is protected by the Federal Confidentiality of Alcohol and Drug Abuse Patient Records regulations: The Federal rules restrict any use of the information to criminally investigate or prosecute any alcohol or drug abuse patient.[facility] CenterIn the event this information is protected by the Federal Confidentiality of Alcohol and Drug Abuse Patient Records regulations: The Federal rules restrict any use of the information to criminally investigate or prosecute any alcohol or drug abuse patient.[facility] CenterIn the event this information is protected by the Federal Confidentiality of Alcohol and Drug Abuse Patient Records regulations: The Federal rules restrict any use of the information to criminally investigate or prosecute any alcohol or drug abuse patient.[facility] CenterIn the event this information is protected by the Federal Confidentiality of Alcohol and Drug Abuse Patient Records regulations: The Federal rules restrict any use of the information to criminally investigate or prosecute any alcohol or drug abuse patient.[facility] CenterIn the event this information is protected by the Federal Confidentiality of Alcohol and Drug Abuse Patient Records regulations: The Federal rules restrict any use of the information to criminally investigate or prosecute any alcohol or drug abuse patient.[facility] CenterIn the event this information is protected by the Federal Confidentiality of Alcohol and Drug Abuse Patient Records regulations: The Federal rules restrict any use of the information to criminally investigate or prosecute any alcohol or drug abuse patient.[facility] CenterIn the event this information is protected by the Federal Confidentiality of Alcohol and Drug Abuse Patient Records regulations: The Federal rules restrict any use of the information to criminally investigate or prosecute any alcohol or drug abuse patient.[facility] CenterIn the event this information is protected by the Federal Confidentiality of Alcohol and Drug Abuse Patient Records regulations: The Federal rules restrict any use of the information to criminally investigate or prosecute any alcohol or drug abuse patient.[facility] CenterIn the event this information is protected by the Federal Confidentiality of Alcohol and Drug Abuse Patient Records regulations: The Federal rules restrict any use of the information to criminally investigate or prosecute any alcohol or drug abuse patient.[facility] CenterIn the event this information is protected by the Federal Confidentiality of Alcohol and Drug Abuse Patient Records regulations: The Federal rules restrict any use of the information to criminally investigate or prosecute any alcohol or drug abuse patient.[facility] CenterIn the event this information is protected by the Federal Confidentiality of Alcohol and Drug Abuse Patient Records regulations: The Federal rules restrict any use of the information to criminally investigate or prosecute any alcohol or drug abuse patient.[facility] CenterIn the event this information is protected by the Federal Confidentiality of Alcohol and Drug Abuse Patient Records regulations: The Federal rules restrict any use of the information to criminally investigate or prosecute any alcohol or drug abuse patient.[facility] CenterIn the event this information is protected by the Federal Confidentiality of Alcohol and Drug Abuse Patient Records regulations: The Federal rules restrict any use of the information to criminally investigate or prosecute any alcohol or drug abuse patient.[facility] CenterIn the event this information is protected by the Federal Confidentiality of Alcohol and Drug Abuse Patient Records regulations: The Federal rules restrict any use of the information to criminally investigate or prosecute any alcohol or drug abuse patient.[facility] CenterIn the event this information is protected by the Federal Confidentiality of Alcohol and Drug Abuse Patient Records regulations: The Federal rules restrict any use of the information to criminally investigate or prosecute any alcohol or drug abuse patient.[facility] CenterIn the event this information is protected by the Federal Confidentiality of Alcohol and Drug Abuse Patient Records regulations: The Federal rules restrict any use of the information to criminally investigate or prosecute any alcohol or drug abuse patient.[facility] CenterIn the event this information is protected by the Federal Confidentiality of Alcohol and Drug Abuse Patient Records regulations: The Federal rules restrict any use of the information to criminally investigate or prosecute any alcohol or drug abuse patient.[facility] CenterIn the event this information is protected by the Federal Confidentiality of Alcohol and Drug Abuse Patient Records regulations: The Federal rules restrict any use of the information to criminally investigate or prosecute any alcohol or drug abuse patient.[facility] CenterIn the event this information is protected by the Federal Confidentiality of Alcohol and Drug Abuse Patient Records regulations: The Federal rules restrict any use of the information to criminally investigate or prosecute any alcohol or drug abuse patient.[facility] CenterIn the event this information is protected by the Federal Confidentiality of Alcohol and Drug Abuse Patient Records regulations: The Federal rules restrict any use of the information to criminally investigate or prosecute any alcohol or drug abuse patient.[facility] CenterIn the event this information is protected by the Federal Confidentiality of Alcohol and Drug Abuse Patient Records regulations: The Federal rules restrict any use of the information to criminally investigate or prosecute any alcohol or drug abuse patient.[facility] CenterIn the event this information is protected by the Federal Confidentiality of Alcohol and Drug Abuse Patient Records regulations: The Federal rules restrict any use of the information to criminally investigate or prosecute any alcohol or drug abuse patient.[facility] CenterIn the event this information is protected by the Federal Confidentiality of Alcohol and Drug Abuse Patient Records regulations: The Federal rules restrict any use of the information to criminally investigate or prosecute any alcohol or drug abuse patient.[facility] CenterIn the event this information is protected by the Federal Confidentiality of Alcohol and Drug Abuse Patient Records regulations: The Federal rules restrict any use of the information to criminally investigate or prosecute any alcohol or drug abuse patient.[facility] CenterIn the event this information is protected by the Federal Confidentiality of Alcohol and Drug Abuse Patient Records regulations: The Federal rules restrict any use of the information to criminally investigate or prosecute any alcohol or drug abuse patient.[facility] CenterIn the event this information is protected by the Federal Confidentiality of Alcohol and Drug Abuse Patient Records regulations: The Federal rules restrict any use of the information to criminally investigate or prosecute any alcohol or drug abuse patient.[facility] CenterIn the event this information is protected by the Federal Confidentiality of Alcohol and Drug Abuse Patient Records regulations: The Federal rules restrict any use of the information to criminally investigate or prosecute any alcohol or drug abuse patient.[facility] CenterIn the event this information is protected by the Federal Confidentiality of Alcohol and Drug Abuse Patient Records regulations: The Federal rules restrict any use of the information to criminally investigate or prosecute any alcohol or drug abuse patient.[facility] CenterIn the event this information is protected by the Federal Confidentiality of Alcohol and Drug Abuse Patient Records regulations: The Federal rules restrict any use of the information to criminally investigate or prosecute any alcohol or drug abuse patient.[facility] CenterIn the event this information is protected by the Federal Confidentiality of Alcohol and Drug Abuse Patient Records regulations: The Federal rules restrict any use of the information to criminally investigate or prosecute any alcohol or drug abuse patient.[facility] the event this information is protected by the Federal Confidentiality of Alcohol and Drug Abuse Patient Records regulations: The Federal rules restrict any use of the information to criminally investigate or prosecute any alcohol or drug abuse patient.[facility] CenterIn the event this information is protected by the Federal Confidentiality of Alcohol and Drug Abuse Patient Records regulations: The Federal rules restrict any use of the information to criminally investigate or prosecute any alcohol or drug abuse patient.[facility] CenterIn the event this information is protected by the Federal Confidentiality of Alcohol and Drug Abuse Patient Records regulations: The Federal rules restrict any use of the information to criminally investigate or prosecute any alcohol or drug abuse patient.[facility] CenterIn the event this information is protected by the Federal Confidentiality of Alcohol and Drug Abuse Patient Records regulations: The Federal rules restrict any use of the information to criminally investigate or prosecute any alcohol or drug abuse patient.[facility] CenterIn the event this information is protected by the Federal Confidentiality of Alcohol and Drug Abuse Patient Records regulations: The Federal rules restrict any use of the information to criminally investigate or prosecute any alcohol or drug abuse patient.[facility] CenterIn the event this information is protected by the Federal Confidentiality of Alcohol and Drug Abuse Patient Records regulations: The Federal rules restrict any use of the information to criminally investigate or prosecute any alcohol or drug abuse patient.[facility] CenterIn the event this information is protected by the Federal Confidentiality of Alcohol and Drug Abuse Patient Records regulations: The Federal rules restrict any use of the information to criminally investigate or prosecute any alcohol or drug abuse patient.[facility] CenterIn the event this information is protected by the Federal Confidentiality of Alcohol and Drug Abuse Patient Records regulations: The Federal rules restrict any use of the information to criminally investigate or prosecute any alcohol or drug abuse patient.[facility] CenterIn the event this information is protected by the Federal Confidentiality of Alcohol and Drug Abuse Patient Records regulations: The Federal rules restrict any use of the information to criminally investigate or prosecute any alcohol or drug abuse patient.[facility] CenterIn the event this information is protected by the Federal Confidentiality of Alcohol and Drug Abuse Patient Records regulations: The Federal rules restrict any use of the information to criminally investigate or prosecute any alcohol or drug abuse patient.[facility] CenterIn the event this information is protected by the Federal Confidentiality of Alcohol and Drug Abuse Patient Records regulations: The Federal rules restrict any use of the information to criminally investigate or prosecute any alcohol or drug abuse patient.[facility] CenterIn the event this information is protected by the Federal Confidentiality of Alcohol and Drug Abuse Patient Records regulations: The Federal rules restrict any use of the information to criminally investigate or prosecute any alcohol or drug abuse patient.[facility] CenterIn the event this information is protected by the Federal Confidentiality of Alcohol and Drug Abuse Patient Records regulations: The Federal rules restrict any use of the information to criminally investigate or prosecute any alcohol or drug abuse patient.[facility] CenterIn the event this information is protected by the Federal Confidentiality of Alcohol and Drug Abuse Patient Records regulations: The Federal rules restrict any use of the information to criminally investigate or prosecute any alcohol or drug abuse patient.[facility] CenterIn the event this information is protected by the Federal Confidentiality of Alcohol and Drug Abuse Patient Records regulations: The Federal rules restrict any use of the information to criminally investigate or prosecute any alcohol or drug abuse patient.[facility] CenterIn the event this information is protected by the Federal Confidentiality of Alcohol and Drug Abuse Patient Records regulations: The Federal rules restrict any use of the information to criminally investigate or prosecute any alcohol or drug abuse patient.[facility] CenterIn the event this information is protected by the Federal Confidentiality of Alcohol and Drug Abuse Patient Records regulations: The Federal rules restrict any use of the information to criminally investigate or prosecute any alcohol or drug abuse patient.[facility] CenterIn the event this information is protected by the Federal Confidentiality of Alcohol and Drug Abuse Patient Records regulations: The Federal rules restrict any use of the information to criminally investigate or prosecute any alcohol or drug abuse patient.[facility] CenterIn the event this information is protected by the Federal Confidentiality of Alcohol and Drug Abuse Patient Records regulations: The Federal rules restrict any use of the information to criminally investigate or prosecute any alcohol or drug abuse patient.[facility] CenterIn the event this information is protected by the Federal Confidentiality of Alcohol and Drug Abuse Patient Records regulations: The Federal rules restrict any use of the information to criminally investigate or prosecute any alcohol or drug abuse patient.[facility] CenterIn the event this information is protected by the Federal Confidentiality of Alcohol and Drug Abuse Patient Records regulations: The Federal rules restrict any use of the information to criminally investigate or prosecute any alcohol or drug abuse patient.[facility] CenterIn the event this information is protected by the Federal Confidentiality of Alcohol and Drug Abuse Patient Records regulations: The Federal rules restrict any use of the information to criminally investigate or prosecute any alcohol or drug abuse patient.[facility] CenterIn the event this information is protected by the Federal Confidentiality of Alcohol and Drug Abuse Patient Records regulations: The Federal rules restrict any use of the information to criminally investigate or prosecute any alcohol or drug abuse patient.[facility] CenterIn the event this information is protected by the Federal Confidentiality of Alcohol and Drug Abuse Patient Records regulations: The Federal rules restrict any use of the information to criminally investigate or prosecute any alcohol or drug abuse patient.[facility] CenterIn the event this information is protected by the Federal Confidentiality of Alcohol and Drug Abuse Patient Records regulations: The Federal rules restrict any use of the information to criminally investigate or prosecute any alcohol or drug abuse patient.[facility] CenterIn the event this information is protected by the Federal Confidentiality of Alcohol and Drug Abuse Patient Records regulations: The Federal rules restrict any use of the information to criminally investigate or prosecute any alcohol or drug abuse patient.[facility] CenterIn the event this information is protected by the Federal Confidentiality of Alcohol and Drug Abuse Patient Records regulations: The Federal rules restrict any use of the information to criminally investigate or prosecute any alcohol or drug abuse patient.[facility] CenterIn the event this information is protected by the Federal Confidentiality of Alcohol and Drug Abuse Patient Records regulations: The Federal rules restrict any use of the information to criminally investigate or prosecute any alcohol or drug abuse patient.[facility] CenterIn the event this information is protected by the Federal Confidentiality of Alcohol and Drug Abuse Patient Records regulations: The Federal rules restrict any use of the information to criminally investigate or prosecute any alcohol or drug abuse patient.[facility] CenterIn the event this information is protected by the Federal Confidentiality of Alcohol and Drug Abuse Patient Records regulations: The Federal rules restrict any use of the information to criminally investigate or prosecute any alcohol or drug abuse patient.[facility] CenterIn the event this information is protected by the Federal Confidentiality of Alcohol and Drug Abuse Patient Records regulations: The Federal rules restrict any use of the information to criminally investigate or prosecute any alcohol or drug abuse patient.[facility] CenterIn the event this information is protected by the Federal Confidentiality of Alcohol and Drug Abuse Patient Records regulations: The Federal rules restrict any use of the information to criminally investigate or prosecute any alcohol or drug abuse patient.[facility] CenterIn the event this information is protected by the Federal Confidentiality of Alcohol and Drug Abuse Patient Records regulations: The Federal rules restrict any use of the information to criminally investigate or prosecute any alcohol or drug abuse patient.[facility] CenterIn the event this information is protected by the Federal Confidentiality of Alcohol and Drug Abuse Patient Records regulations: The Federal rules restrict any use of the information to criminally investigate or prosecute any alcohol or drug abuse patient.[facility] CenterIn the event this information is protected by the Federal Confidentiality of Alcohol and Drug Abuse Patient Records regulations: The Federal rules restrict any use of the information to criminally investigate or prosecute any alcohol or drug abuse patient.[facility] CenterIn the event this information is protected by the Federal Confidentiality of Alcohol and Drug Abuse Patient Records regulations: The Federal rules restrict any use of the information to criminally investigate or prosecute any alcohol or drug abuse patient.[facility] CenterIn the event this information is protected by the Federal Confidentiality of Alcohol and Drug Abuse Patient Records regulations: The Federal rules restrict any use of the information to criminally investigate or prosecute any alcohol or drug abuse patient.[facility] CenterIn the event this information is protected by the Federal Confidentiality of Alcohol and Drug Abuse Patient Records regulations: The Federal rules restrict any use of the information to criminally investigate or prosecute any alcohol or drug abuse patient.[facility] CenterIn the event this information is protected by the Federal Confidentiality of Alcohol and Drug Abuse Patient Records regulations: The Federal rules restrict any use of the information to criminally investigate or prosecute any alcohol or drug abuse patient.[facility] CenterIn the event this information is protected by the Federal Confidentiality of Alcohol and Drug Abuse Patient Records regulations: The Federal rules restrict any use of the information to criminally investigate or prosecute any alcohol or drug abuse patient.[facility] CenterIn the event this information is protected by the Federal Confidentiality of Alcohol and Drug Abuse Patient Records regulations: The Federal rules restrict any use of the information to criminally investigate or prosecute any alcohol or drug abuse patient.[facility] CenterIn the event this information is protected by the Federal Confidentiality of Alcohol and Drug Abuse Patient Records regulations: The Federal rules restrict any use of the information to criminally investigate or prosecute any alcohol or drug abuse patient.[facility] CenterIn the event this information is protected by the Federal Confidentiality of Alcohol and Drug Abuse Patient Records regulations: The Federal rules restrict any use of the information to criminally investigate or prosecute any alcohol or drug abuse patient.[facility] CenterIn the event this information is protected by the Federal Confidentiality of Alcohol and Drug Abuse Patient Records regulations: The Federal rules restrict any use of the information to criminally investigate or prosecute any alcohol or drug abuse patient.[facility] CenterIn the event this information is protected by the Federal Confidentiality of Alcohol and Drug Abuse Patient Records regulations: The Federal rules restrict any use of the information to criminally investigate or prosecute any alcohol or drug abuse patient.[facility] CenterIn the event this information is protected by the Federal Confidentiality of Alcohol and Drug Abuse Patient Records regulations: The Federal rules restrict any use of the information to criminally investigate or prosecute any alcohol or drug abuse patient.[facility] CenterIn the event this information is protected by the Federal Confidentiality of Alcohol and Drug Abuse Patient Records regulations: The Federal rules restrict any use of the information to criminally investigate or prosecute any alcohol or drug abuse patient.[facility] CenterIn the event this information is protected by the Federal Confidentiality of Alcohol and Drug Abuse Patient Records regulations: The Federal rules restrict any use of the information to criminally investigate or prosecute any alcohol or drug abuse patient.[facility] CenterIn the event this information is protected by the Federal Confidentiality of Alcohol and Drug Abuse Patient Records regulations: The Federal rules restrict any use of the information to criminally investigate or prosecute any alcohol or drug abuse patient.[facility] CenterIn the event this information is protected by the Federal Confidentiality of Alcohol and Drug Abuse Patient Records regulations: The Federal rules restrict any use of the information to criminally investigate or prosecute any alcohol or drug abuse patient.[facility] [place] the event this information is protected by the Federal Confidentiality of Alcohol and Drug Abuse Patient Records regulations: The Federal rules restrict any use of the information to criminally investigate or prosecute any alcohol or drug abuse patient.[facility] CenterIn the event this information is protected by the Federal Confidentiality of Alcohol and Drug Abuse Patient Records regulations: The Federal rules restrict any use of the information to criminally investigate or prosecute any alcohol or drug abuse patient.[facility] CenterIn the event this information is protected by the Federal Confidentiality of Alcohol and Drug Abuse Patient Records regulations: The Federal rules restrict any use of the information to criminally investigate or prosecute any alcohol or drug abuse patient.[facility] CenterIn the event this information is protected by the Federal Confidentiality of Alcohol and Drug Abuse Patient Records regulations: The Federal rules restrict any use of the information to criminally investigate or prosecute any alcohol or drug abuse patient.[facility] CenterIn the event this information is protected by the Federal Confidentiality of Alcohol and Drug Abuse Patient Records regulations: The Federal rules restrict any use of the information to criminally investigate or prosecute any alcohol or drug abuse patient.[facility] CenterIn the event this information is protected by the Federal Confidentiality of Alcohol and Drug Abuse Patient Records regulations: The Federal rules restrict any use of the information to criminally investigate or prosecute any alcohol or drug abuse patient.[facility] CenterIn the event this information is protected by the Federal Confidentiality of Alcohol and Drug Abuse Patient Records regulations: The Federal rules restrict any use of the information to criminally investigate or prosecute any alcohol or drug abuse patient.[facility]In the event this information is protected by the Federal Confidentiality of Alcohol and Drug Abuse Patient Records regulations: The Federal rules restrict any use of the information to criminally investigate or prosecute any alcohol or drug abuse patient.[facility]In the event this information is protected by the Federal Confidentiality of Alcohol and Drug Abuse Patient Records regulations: The Federal rules restrict any use of the information to criminally investigate or prosecute any alcohol or drug abuse patient.[facility]In the event this information is protected by the Federal Confidentiality of Alcohol and Drug Abuse Patient Records regulations: The Federal rules restrict any use of the information to criminally investigate or prosecute any alcohol or drug abuse patient.[facility]In the event this information is protected by the Federal Confidentiality of Alcohol and Drug Abuse Patient Records regulations: The Federal rules restrict any use of the information to criminally investigate or prosecute any alcohol or drug abuse patient.[facility]In the event this information is protected by the Federal Confidentiality of Alcohol and Drug Abuse Patient Records regulations: The Federal rules restrict any use of the information to criminally investigate or prosecute any alcohol or drug abuse patient.[facility]In the event this information is protected by the Federal Confidentiality of Alcohol and Drug Abuse Patient Records regulations: The Federal rules restrict any use of the information to criminally investigate or prosecute any alcohol or drug abuse patient.[facility]In the event this information is protected by the Federal Confidentiality of Alcohol and Drug Abuse Patient Records regulations: The Federal rules restrict any use of the information to criminally investigate or prosecute any alcohol or drug abuse patient.[facility]In the event this information is protected by the Federal Confidentiality of Alcohol and Drug Abuse Patient Records regulations: The Federal rules restrict any use of the information to criminally investigate or prosecute any alcohol or drug abuse patient.[facility]In the event this information is protected by the Federal Confidentiality of Alcohol and Drug Abuse Patient Records regulations: The Federal rules restrict any use of the information to criminally investigate or prosecute any alcohol or drug abuse patient.[facility]In the event this information is protected by the Federal Confidentiality of Alcohol and Drug Abuse Patient Records regulations: The Federal rules restrict any use of the information to criminally investigate or prosecute any alcohol or drug abuse patient.[facility] CenterIn the event this information is protected by the Federal Confidentiality of Alcohol and Drug Abuse Patient Records regulations: The Federal rules restrict any use of the information to criminally investigate or prosecute any alcohol or drug abuse patient.[facility] CenterIn the event this information is protected by the Federal Confidentiality of Alcohol and Drug Abuse Patient Records regulations: The Federal rules restrict any use of the information to criminally investigate or prosecute any alcohol or drug abuse patient.[facility]In the event this information is protected by the Federal Confidentiality of Alcohol and Drug Abuse Patient Records regulations: The Federal rules restrict any use of the information to criminally investigate or prosecute any alcohol or drug abuse patient.[facility] CenterIn the event this information is protected by the Federal Confidentiality of Alcohol and Drug Abuse Patient Records regulations: The Federal rules restrict any use of the information to criminally investigate or prosecute any alcohol or drug abuse patient.[facility]In the event this information is protected by the Federal Confidentiality of Alcohol and Drug Abuse Patient Records regulations: The Federal rules restrict any use of the information to criminally investigate or prosecute any alcohol or drug abuse patient.[facility] CenterIn the event this information is protected by the Federal Confidentiality of Alcohol and Drug Abuse Patient Records regulations: The Federal rules restrict any use of the information to criminally investigate or prosecute any alcohol or drug abuse patient.[facility] CenterIn the event this information is protected by the Federal Confidentiality of Alcohol and Drug Abuse Patient Records regulations: The Federal rules restrict any use of the information to criminally investigate or prosecute any alcohol or drug abuse patient.[facility]In the event this information is protected by the Federal Confidentiality of Alcohol and Drug Abuse Patient Records regulations: The Federal rules restrict any use of the information to criminally investigate or prosecute any alcohol or drug abuse patient.[facility]In the event this information is protected by the Federal Confidentiality of Alcohol and Drug Abuse Patient Records regulations: The Federal rules restrict any use of the information to criminally investigate or prosecute any alcohol or drug abuse patient.[facility]In the event this information is protected by the Federal Confidentiality of Alcohol and Drug Abuse Patient Records regulations: The Federal rules restrict any use of the information to criminally investigate or prosecute any alcohol or drug abuse patient.[facility]In the event this information is protected by the Federal Confidentiality of Alcohol and Drug Abuse Patient Records regulations: The Federal rules restrict any use of the information to criminally investigate or prosecute any alcohol or drug abuse patient.[facility]In the event this information is protected by the Federal Confidentiality of Alcohol and Drug Abuse Patient Records regulations: The Federal rules restrict any use of the information to criminally investigate or prosecute any alcohol or drug abuse patient.[facility]In the event this information is protected by the Federal Confidentiality of Alcohol and Drug Abuse Patient Records regulations: The Federal rules restrict any use of the information to criminally investigate or prosecute any alcohol or drug abuse patient.[facility]In the event this information is protected by the Federal Confidentiality of Alcohol and Drug Abuse Patient Records regulations: The Federal rules restrict any use of the information to criminally investigate or prosecute any alcohol or drug abuse patient.[facility]In the event this information is protected by the Federal Confidentiality of Alcohol and Drug Abuse Patient Records regulations: The Federal rules restrict any use of the information to criminally investigate or prosecute any alcohol or drug abuse patient.[facility]In the event this information is protected by the Federal Confidentiality of Alcohol and Drug Abuse Patient Records regulations: The Federal rules restrict any use of the information to criminally investigate or prosecute any alcohol or drug abuse patient.[facility]In the event this information is protected by the Federal Confidentiality of Alcohol and Drug Abuse Patient Records regulations: The Federal rules restrict any use of the information to criminally investigate or prosecute any alcohol or drug abuse patient.[facility] CenterIn the event this information is protected by the Federal Confidentiality of Alcohol and Drug Abuse Patient Records regulations: The Federal rules restrict any use of the information to criminally investigate or prosecute any alcohol or drug abuse patient.[facility]In the event this information is protected by the Federal Confidentiality of Alcohol and Drug Abuse Patient Records regulations: The Federal rules restrict any use of the information to criminally investigate or prosecute any alcohol or drug abuse patient.[facility] CenterIn the event this information is protected by the Federal Confidentiality of Alcohol and Drug Abuse Patient Records regulations: The Federal rules restrict any use of the information to criminally investigate or prosecute any alcohol or drug abuse patient.[facility] CenterIn the event this information is protected by the Federal Confidentiality of Alcohol and Drug Abuse Patient Records regulations: The Federal rules restrict any use of the information to criminally investigate or prosecute any alcohol or drug abuse patient.[facility] CenterIn the event this information is protected by the Federal Confidentiality of Alcohol and Drug Abuse Patient Records regulations: The Federal rules restrict any use of the information to criminally investigate or prosecute any alcohol or drug abuse patient.[facility] CenterIn the event this information is protected by the Federal Confidentiality of Alcohol and Drug Abuse Patient Records regulations: The Federal rules restrict any use of the information to criminally investigate or prosecute any alcohol or drug abuse patient.[facility] CenterIn the event this information is protected by the Federal Confidentiality of Alcohol and Drug Abuse Patient Records regulations: The Federal rules restrict any use of the information to criminally investigate or prosecute any alcohol or drug abuse patient.[facility] CenterIn the event this information is protected by the Federal Confidentiality of Alcohol and Drug Abuse Patient Records regulations: The Federal rules restrict any use of the information to criminally investigate or prosecute any alcohol or drug abuse patient.[facility] CenterIn the event this information is protected by the Federal Confidentiality of Alcohol and Drug Abuse Patient Records regulations: The Federal rules restrict any use of the information to criminally investigate or prosecute any alcohol or drug abuse patient.[facility] CenterIn the event this information is protected by the Federal Confidentiality of Alcohol and Drug Abuse Patient Records regulations: The Federal rules restrict any use of the information to criminally investigate or prosecute any alcohol or drug abuse patient.[facility] CenterIn the event this information is protected by the Federal Confidentiality of Alcohol and Drug Abuse Patient Records regulations: The Federal rules restrict any use of the information to criminally investigate or prosecute any alcohol or drug abuse patient.[facility] CenterIn the event this information is protected by the Federal Confidentiality of Alcohol and Drug Abuse Patient Records regulations: The Federal rules restrict any use of the information to criminally investigate or prosecute any alcohol or drug abuse patient.[facility] CenterIn the event this information is protected by the Federal Confidentiality of Alcohol and Drug Abuse Patient Records regulations: The Federal rules restrict any use of the information to criminally investigate or prosecute any alcohol or drug abuse patient.[facility] CenterIn the event this information is protected by the Federal Confidentiality of Alcohol and Drug Abuse Patient Records regulations: The Federal rules restrict any use of the information to criminally investigate or prosecute any alcohol or drug abuse patient.[facility] CenterIn the event this information is protected by the Federal Confidentiality of Alcohol and Drug Abuse Patient Records regulations: The Federal rules restrict any use of the information to criminally investigate or prosecute any alcohol or drug abuse patient.[facility] CenterIn the event this information is protected by the Federal Confidentiality of Alcohol and Drug Abuse Patient Records regulations: The Federal rules restrict any use of the information to criminally investigate or prosecute any alcohol or drug abuse patient.[facility] the event this information is protected by the Federal Confidentiality of Alcohol and Drug Abuse Patient Records regulations: The Federal rules restrict any use of the information to criminally investigate or prosecute any alcohol or drug abuse patient.[facility] CenterIn the event this information is protected by the Federal Confidentiality of Alcohol and Drug Abuse Patient Records regulations: The Federal rules restrict any use of the information to criminally investigate or prosecute any alcohol or drug abuse patient.[facility] CenterIn the event this information is protected by the Federal Confidentiality of Alcohol and Drug Abuse Patient Records regulations: The Federal rules restrict any use of the information to criminally investigate or prosecute any alcohol or drug abuse patient.[facility] CenterIn the event this information is protected by the Federal Confidentiality of Alcohol and Drug Abuse Patient Records regulations: The Federal rules restrict any use of the information to criminally investigate or prosecute any alcohol or drug abuse patient.[facility] CenterIn the event this information is protected by the Federal Confidentiality of Alcohol and Drug Abuse Patient Records regulations: The Federal rules restrict any use of the information to criminally investigate or prosecute any alcohol or drug abuse patient.[facility] CenterIn the event this information is protected by the Federal Confidentiality of Alcohol and Drug Abuse Patient Records regulations: The Federal rules restrict any use of the information to criminally investigate or prosecute any alcohol or drug abuse patient.[facility] CenterIn the event this information is protected by the Federal Confidentiality of Alcohol and Drug Abuse Patient Records regulations: The Federal rules restrict any use of the information to criminally investigate or prosecute any alcohol or drug abuse patient.[facility] CenterIn the event this information is protected by the Federal Confidentiality of Alcohol and Drug Abuse Patient Records regulations: The Federal rules restrict any use of the information to criminally investigate or prosecute any alcohol or drug abuse patient.[facility] CenterIn the event this information is protected by the Federal Confidentiality of Alcohol and Drug Abuse Patient Records regulations: The Federal rules restrict any use of the information to criminally investigate or prosecute any alcohol or drug abuse patient.[facility] CenterIn the event this information is protected by the Federal Confidentiality of Alcohol and Drug Abuse Patient Records regulations: The Federal rules restrict any use of the information to criminally investigate or prosecute any alcohol or drug abuse patient.[facility] CenterIn the event this information is protected by the Federal Confidentiality of Alcohol and Drug Abuse Patient Records regulations: The Federal rules restrict any use of the information to criminally investigate or prosecute any alcohol or drug abuse patient.[facility] CenterIn the event this information is protected by the Federal Confidentiality of Alcohol and Drug Abuse Patient Records regulations: The Federal rules restrict any use of the information to criminally investigate or prosecute any alcohol or drug abuse patient.[facility] CenterIn the event this information is protected by the Federal Confidentiality of Alcohol and Drug Abuse Patient Records regulations: The Federal rules restrict any use of the information to criminally investigate or prosecute any alcohol or drug abuse patient.[facility] CenterIn the event this information is protected by the Federal Confidentiality of Alcohol and Drug Abuse Patient Records regulations: The Federal rules restrict any use of the information to criminally investigate or prosecute any alcohol or drug abuse patient.[facility] CenterIn the event this information is protected by the Federal Confidentiality of Alcohol and Drug Abuse Patient Records regulations: The Federal rules restrict any use of the information to criminally investigate or prosecute any alcohol or drug abuse patient.[facility] CenterIn the event this information is protected by the Federal Confidentiality of Alcohol and Drug Abuse Patient Records regulations: The Federal rules restrict any use of the information to criminally investigate or prosecute any alcohol or drug abuse patient.[facility] CenterIn the event this information is protected by the Federal Confidentiality of Alcohol and Drug Abuse Patient Records regulations: The Federal rules restrict any use of the information to criminally investigate or prosecute any alcohol or drug abuse patient.[facility] CenterIn the event this information is protected by the Federal Confidentiality of Alcohol and Drug Abuse Patient Records regulations: The Federal rules restrict any use of the information to criminally investigate or prosecute any alcohol or drug abuse patient.[facility] CenterIn the event this information is protected by the Federal Confidentiality of Alcohol and Drug Abuse Patient Records regulations: The Federal rules restrict any use of the information to criminally investigate or prosecute any alcohol or drug abuse patient.[facility] CenterIn the event this information is protected by the Federal Confidentiality of Alcohol and Drug Abuse Patient Records regulations: The Federal rules restrict any use of the information to criminally investigate or prosecute any alcohol or drug abuse patient.[facility] CenterIn the event this information is protected by the Federal Confidentiality of Alcohol and Drug Abuse Patient Records regulations: The Federal rules restrict any use of the information to criminally investigate or prosecute any alcohol or drug abuse patient.[facility] CenterIn the event this information is protected by the Federal Confidentiality of Alcohol and Drug Abuse Patient Records regulations: The Federal rules restrict any use of the information to criminally investigate or prosecute any alcohol or drug abuse patient.[facility] CenterIn the event this information is protected by the Federal Confidentiality of Alcohol and Drug Abuse Patient Records regulations: The Federal rules restrict any use of the information to criminally investigate or prosecute any alcohol or drug abuse patient.[facility] CenterIn the event this information is protected by the Federal Confidentiality of Alcohol and Drug Abuse Patient Records regulations: The Federal rules restrict any use of the information to criminally investigate or prosecute any alcohol or drug abuse patient.[facility] CenterIn the event this information is protected by the Federal Confidentiality of Alcohol and Drug Abuse Patient Records regulations: The Federal rules restrict any use of the information to criminally investigate or prosecute any alcohol or drug abuse patient.[facility] CenterIn the event this information is protected by the Federal Confidentiality of Alcohol and Drug Abuse Patient Records regulations: The Federal rules restrict any use of the information to criminally investigate or prosecute any alcohol or drug abuse patient.[facility] CenterIn the event this information is protected by the Federal Confidentiality of Alcohol and Drug Abuse Patient Records regulations: The Federal rules restrict any use of the information to criminally investigate or prosecute any alcohol or drug abuse patient.[facility] CenterIn the event this information is protected by the Federal Confidentiality of Alcohol and Drug Abuse Patient Records regulations: The Federal rules restrict any use of the information to criminally investigate or prosecute any alcohol or drug abuse patient.[facility] CenterIn the event this information is protected by the Federal Confidentiality of Alcohol and Drug Abuse Patient Records regulations: The Federal rules restrict any use of the information to criminally investigate or prosecute any alcohol or drug abuse patient.[facility] CenterIn the event this information is protected by the Federal Confidentiality of Alcohol and Drug Abuse Patient Records regulations: The Federal rules restrict any use of the information to criminally investigate or prosecute any alcohol or drug abuse patient.[facility] Reason for Visit (unrecogniz ed section and content) Reason Comments Physical Therapy PT Discharge Specialty Diagnoses / Procedures Referred By Contac t Referred To Contact Physical Therapy / PHYSICAL THERAPY Diagnoses PT for Lumbar sp Procedures EST RS PT ORTH K Lars Alcantar MD [address] [address] George Tucker, PT, DPT [address] [place] [address] Referral ID Status Reason Start Date Expiration Date V isits Requested Visits Authorized [id number] Authorized 08/25/2023 08/21/2024 20 20 Reason Comments PT Progress Note Specialty Diagnoses / Procedures Referred By Contac t Referred To Contact [facility] Diagnoses Lumbosacral radiculitis Procedures CONSULT TO PHYSICAL THERAPY PHYSICAL THERAPY EVALUATION HIGH COMPLEX 45 MINS Albin Balderrama V, DO [address] [place] [address] [facility] [place] [address] [place] [address] Referral ID Status Reason Start Date Expiration Date Visits Requested Visits Authorized [id number] Authorized PCP Requested Referral Auto-Generate d Referral 08/27/2022 08/27/2023 99 99 Reason Comments Radiology US Specialty Diagnoses / Procedures Referred By Contac t Referred To Contact [facility]AG[facility] Diagnoses Generalized abdominal pain Procedures US ABD RT UPPER QUADRANT US ABDOMINAL REAL TIME W/IMAGE LIMITED Angie Aguirre, JAGDEEP.WEIGHT ANALYST [address] [place] [address] [facility] Referral ID Status Reason Start Date Expiration Date V isits Requested Visits Authorized [id number] Closed Auto-Generate d Referral 10/23/2021 11/22/2022 1 1 Reason Comments Results Specialty Diagnoses / Procedures Referred By Contac t Referred To Contact Diagnoses Pain Procedures [facility] Mallorie Swann MD [address] [place] [address] [place] [address] Referral ID Status Reason Start Date Expiration Date V isits Requested Visits Authorized [id number] New Request 03/16/2021 04/10/2022 1 1 Reason Comments Follow Up Reason Comments 10 weeks 5 days post visit DeQuervain te nosynovitis right rinaldi Reason Comments New Patient Reason Comments Back Pain Reason Comments Results Reason Comments Physical Therapy Specialty Diagnoses / Procedures Referred By Contac t Referred To Contact [facility] Diagnoses Lumbar spondylosis Procedures CONSULT TO PHYSICAL THERAPY PHYSICAL THERAPY EVALUATION HIGH COMPLEX 45 MINS Quita Barth, BIOINFORMATICS SOFTWARE ENGINEER.WEIGHT ANALYST [address] [place] [address] [facility] [address] [address] Referral ID Status Reason Start Date Expiration Date V isits Requested Visits Authorized [id number] Authorized 08/22/2021 08/21/2022 99 99 Reason Comments Injection Followup Back Pain Reason Comments Imm/Inj Reason Comments 7 month post visit right wrist DeQuervai ns disease with inj Reason Comments Hoarseness On and off for almos t a year. Throat is not sore. Reason Comments Low Back Pain Reason Comments Persistent hoarseness and cough Reason Comments Patient Question Orders Reason Comments Acute Visit Lt hip pain Reason Comments Results Xray Hips Reason Comments Left Hip Pain Reason Comments PT Eval Specialty Diagnoses / Procedures Referred By Contac t Referred To Contact [facility] Diagnoses Lumbosacral radiculitis Procedures CONSULT TO PHYSICAL THERAPY PHYSICAL THERAPY EVALUATION HIGH COMPLEX 45 MINS Albin Balderrama, V, DO [address] [place] [address] [facility] [address] [place] [id number] Reason Comments Appointment Education Of Patient/family 11/15/22 appt Reason Comments Dizziness Dizzy spells occur i ntermittently for 2 or 3 months Reason Comments 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 Care 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 - Other xrays Reason Comments 13 week post visit lumbosacral radiculit is Specialty Diagnoses / Procedures Referred By Contac t Referred To Contact [facility] Diagnoses Dizziness Procedures CONSULT TO PHYSICAL THERAPY PHYSICAL THERAPY EVALUATION HIGH COMPLEX 45 MINS Angie Aguirre, BIOINFORMATICS SOFTWARE ENGINEER.WEIGHT ANALYST [address] [place] [address] [facility] [address] [place] [address] Referral ID Status Reason Start Date Expiration Date Visits Requested Visits Authorized [id number] Authorized PCP Requested Referral Auto-Generate d Referral 11/22/2022 11/22/2023 99 99 Reason Comments Procedure Follow Up EGD 11/15/22 Labs 11/23. Having persistent nausea Reason Comments Orders Reason Comments Forms Reason Comments Telemedicine Reason Comments PT Progress Note Specialty Diagnoses / Procedures Referred By Contac t Referred To Contact Physical Therapy / PHYSICAL THERAPY Diagnoses Spinal stenosis of lumbar region with neurogenic claudication Procedures CONSULT TO PHYSICAL THERAPY Lars Alcantar MD [address] [place] [address] [place] [address] George Tucker PT, DPT [address] [place] [address] Referral ID Status Reason Start Date Expiration Date V isits Requested Visits Authorized [id number] Authorized 01/05/2023 08/21/2023 20 20 Reason Comments Physical Therapy Specialty Diagnoses / Procedures Referred By Contac t Referred To Contact Physical Therapy / PHYSICAL THERAPY Diagnoses Spinal stenosis of lumbar region with neurogenic claudication Procedures CONSULT TO PHYSICAL THERAPY Lars Alcantar MD [address] [place] [address] [place] [address] George Tucker PT, DPT [address] [place] [address] Reason Comments Orders Reason Comments Back Pain Reason Onset Date Comments Refill Request 05/12/2023 Reason Comments Insurance Authorization Medication Reason Comments Acute Visit Increased swelling i n lower legs/ankles; discomfort in chest, started back on anti-reflux, never had this feeling before with reflux Reason Comments Urinary Problem Reason Comments Cardiac Clearance Anticoagulation: Tamara vix Reason Comments Radiology CT Specialty Diagnoses / Procedures Referred By Contac t Referred To Contact CT IMAGING Diagnoses Spinal stenosis of lumbar region with neurogenic claudication Procedures CT LUMBAR SPINE WO IVCON CT LUMBAR SPINE W/O CONTRAST MATERIAL Lars Alcantar MD [address] [place] [address] [place] [address] [address] [place] [address] Referral ID Status Reason Start Date Expiration Date V isits Requested Visits Authorized [id number] Closed Auto-Generate d Referral 12/29/2022 01/28/2024 1 1 Specialty Diagnoses / Procedures Referred By Contac t Referred To Contact US IMAGING Diagnoses Gastroesophageal reflux disease without esophagitis Nausea Procedures US ABD RIGHT UPPER QUADRANT US ABDOMINAL REAL TIME W/IMAGE LIMITED Delia Mckeon PA-C [address] [facility] [address] [place] [address] Referral ID Status Reason Start Date Expiration Date V isits Requested Visits Authorized [id number] Closed Auto-Generate d Referral 12/30/2022 01/29/2024 1 1 Specialty Diagnoses / Procedures Referred By Contac t Referred To Contact MR IMAGING Diagnoses Spinal stenosis of lumbar region with neurogenic claudication Procedures MRI LUMBAR SPINE WO/W IVCON MRI SPINAL CANAL LUMBAR W/O & W/CONTR MATRLars Stephens MD [address] [address] [place] [address] Referral ID Status Reason Start Date Expiration Date V isits Requested Visits Authorized [id number] Closed Auto-Generate d Referral 12/29/2022 01/28/2024 1 1 Reason Comments Recheck Follow up- feeling b sara but still not completely resolved Reason Comments Radiology NM Specialty Diagnoses / Procedures Referred By Contac t Referred To Contact [facility] Diagnoses Chest discomfort Procedures NM CARDIAC PERF STRESS/PHARM MYOCARDIAL SPECT MULTIPLE STUDIES Angie Aguirre, BIOINFORMATICS SOFTWARE ENGINEER.WEIGHT ANALYST [address] [place] [address] [facility] [address] [place] [address] Referral ID Status Reason Start Date Expiration Date V isits Requested Visits Authorized [id number] Closed Auto-Generate d Referral 06/06/2023 07/05/2024 1 1 Reason Comments Follow Up Continued bowel issu es and chronic back pain Reason Comments Acute Visit R foot swelling/pain ; history of stress fracture in the same foot Reason Onset Date Comments Refill Request 11/15/2023 Reason Comments Right Hip Pain Reason Comments PT Eval Specialty Diagnoses / Procedures Referred By Contac t Referred To Contact [facility] Diagnoses Hamstring strain, right, initial encounter Procedures CONSULT TO PHYSICAL THERAPY PHYSICAL THERAPY EVALUATION HIGH COMPLEX 45 MINS Albin Balderrama V, DO [address] [place] [address] [facility] [address] [place] [address] Referral ID Status Reason Start Date Expiration Date Visits Requested Visits Authorized [id number] Authorized PCP Requested Referral Auto-Generate d Referral 11/30/2023 11/29/2024 99 99 Reason Comments Orders Results Reason Comments Mammogram Result Call Back Reason Comments Appointment Results Reason Comments Acute Visit Lightheadedness, diz ziness since using inhaler; passed out at home last week; has had a few low BP readings per home monitor Reason Comments Cough Chest congestion, RINALDI , sinus pain and pressure x3 weeks, x4 days worse Reason Onset Date Comments Refill Request 02/26/2024 Reason Onset Date Comments Refill Request 02/28/2024 Reason Onset Date Comments Refill Request 03/01/2024 Reason Onset Date Comments Refill Request 03/07/2024 Specialty Diagnoses / Procedures Referred By Contac t Referred To Contact PHYSICAL THERAPY Diagnoses Hamstring strain, right, initial encounter Procedures CONSULT TO PHYSICAL THERAPY PHYSICAL THERAPY EVALUATION HIGH COMPLEX 45 MINS Albin Balderrama V, DO [address] [place] [address] Karmen Amador, LALO Reason Comments Back Pain Injection Followup Reason Comments Anticoagulation Clearance Plavix Reason Comments Recheck Follow up- covid Reason Onset Date Comments Refill Request 05/01/2024 Reason Comments RFA F/u Reason Comments Follow Up Back Pain Injection Followup Reason Onset Date Comments Refill Request 07/02/2024 Reason Comments Recheck Follow up Medicare Wellness Exam Reason Onset Date Comments Refill Request 07/23/2024 Reason Onset Date Comments Refill Request 07/27/2024 Reason Comments Acute Visit R flank pain x coupl e weeks Reason Comments Refill Request Back Pain Reason Comments Pain Refill Request Reason Onset Date Comments Refill Request 10/03/2024 Specialty Diagnoses / Procedures Referred By Contac t Referred To Contact PHYSICAL THERAPY Diagnoses Hamstring strain, right, initial encounter Procedures CONSULT TO PHYSICAL THERAPY PHYSICAL THERAPY EVALUATION HIGH COMPLEX 45 MINS Albin Balderrama, V, DO [address] [place] [address] Phone: tel: fax: Karmen Amador PT Referral ID Status Reason Start Date Expiration Date Visits Requested Visits Authorized [id number] Authorized PCP Requested Referral Auto-Generate d Referral 11/30/2023 11/29/2024 99 99 Reason Onset Date Comments Population Health Navigation Outreach 10/10/2024 [facility] Reason Comments Discussion Would like to discus s cholesterol medication Reason Comments Follow Up Back Pain Reason Onset Date Comments Population Health Navigation Outreach 11/27/2024 [facility] Referral ID Status Reason Start Date Expiration Date Visits Requested Visits Authorized [id number] Authorized PCP Requested Referral Auto-Generate d Referral 11/30/2023 03/22/2025 99 99 Reason Comments Derm Problem Right Lower ext, wou nd, redness, swelling painful, fell x 8 daysScabbing on wounds, Reason Comments Mouth/Lip Problem White patches on rig ht side of tongue, sore throat, burning, dry mouth x 3 weeks Reason Onset Date Comments Results 12/31/2024 Reason Comments Consult Mammogram Abnormality Reason Onset Date Comments Refill Request 01/29/2025 Reason Comments Covid Vaccine Specialty Diagnoses / Procedures Referred By Lilia yee Referred To Contact Physical Therapy / PHYSICAL THERAPY Diagnoses Hamstring strain, right, initial encounter [S76.311A] Procedures PHYSICAL THERAPY EVALUATION HIGH COMPLEX 45 MINS THERAPEUTIC EXERCISES RE, EA 15 MIN. EST RS PT ORTH MSK Angie Aguirre, JAGDEEP.WEIGHT ANALYST [address] [place] [address] Phone: tel: fax: Karmen Amador PT Referral ID Status Reason Start Date Expiration Date V isits Requested Visits Authorized [id number] Authorized 08/22/2024 08/21/2025 99 99 Care Teams (unrecognized sec tion and content) [employer] Press Operator Relationship Specialty Start Date End Date Angie Aguirre APRN.WEIGHT ANALYST [address] [place], [place] [address] PCP - General Family Practice 10/23/21 Apple Press Operator Relationship Specialty Start Date End Date Angie Aguirre, BIOINFORMATICS SOFTWARE ENGINEER.WEIGHT ANALYST [address] [place] [address] PCP - General Family Practice 10/23/21 Apple Press Operator Relationship Specialty Start Date End Date Carmina Grissom MD [address] [facility] [address] [place] [address] PCP - General Internal Medicine 06/15/17 Apple Press Operator Relationship Specialty Start Date End Date Angie Aguirre, BIOINFORMATICS SOFTWARE ENGINEER.WEIGHT ANALYST [address] [place] [address] PCP - General Family Practice 10/23/21 Apple Press Operator Relationship Specialty Start Date End Date Angie Aguirre, BIOINFORMATICS SOFTWARE ENGINEER.WEIGHT ANALYST [address] [place] [address] PCP - General Family Practice 10/23/21 Apple Press Operator Relationship Specialty Start Date End Date Angie Aguirre, BIOINFORMATICS SOFTWARE ENGINEER.WEIGHT ANALYST [address] [place] [address] PCP - General Family Practice 10/23/21 Apple Press Operator Relationship Specialty Start Date End Date Carmina Grissom MD [address] [facility] [place] [address] PCP - General Internal Medicine 08/28/19 10/05/21 Angie Aguirre, BIOINFORMATICS SOFTWARE ENGINEER.WEIGHT ANALYST [address] [place] [address] PCP - General Family Practice 10/06/21 10/07/21 Carmina Grissom MD [address] [facility] [place] [address] PCP - General Internal Medicine 10/08/21 10/22/21 Angie Aguirre, BIOINFORMATICS SOFTWARE ENGINEER.WEIGHT ANALYST [address] [place] [address] PCP - General Family Practice 10/23/21 Apple Press Operator Relationship Specialty Start Date End Date Angie Aguirre, BIOINFORMATICS SOFTWARE ENGINEER.WEIGHT ANALYST [address] [place] [address] PCP - General Family Practice 10/23/21 Apple Press Operator Relationship Specialty Start Date End Date Angie Aguirre, BIOINFORMATICS SOFTWARE ENGINEER.WEIGHT ANALYST [address] [place] [address] PCP - General Family Practice 10/23/21 Apple Press Operator Relationship Specialty Start Date End Date Angie Aguirre, BIOINFORMATICS SOFTWARE ENGINEER.WEIGHT ANALYST [address] [place] [address] PCP - General Family Practice 10/23/21 Apple Press Operator Relationship Specialty Start Date End Date Angie Aguirre, BIOINFORMATICS SOFTWARE ENGINEER.WEIGHT ANALYST [address] [place] [address] PCP - General Family Practice 10/23/21 Apple Press Operator Relationship Specialty Start Date End Date Angie Aguirre, BIOINFORMATICS SOFTWARE ENGINEER.WEIGHT ANALYST [address] [place] [address] PCP - General Family Practice 10/23/21 Apple Press Operator Relationship Specialty Start Date End Date Angie Aguirre, BIOINFORMATICS SOFTWARE ENGINEER.WEIGHT ANALYST [address] [place] [address] PCP - General Family Practice 10/23/21 Apple Press Operator Relationship Specialty Start Date End Date Angie Aguirre, BIOINFORMATICS SOFTWARE ENGINEER.WEIGHT ANALYST [address] [place] [address] PCP - General Family Practice 10/23/21 Apple Press Operator Relationship Specialty Start Date End Date Angie Aguirre, BIOINFORMATICS SOFTWARE ENGINEER.WEIGHT ANALYST [address] [place] [address] PCP - General Family Practice 10/23/21 Apple Press Operator Relationship Specialty Start Date End Date Angie Aguirre, BIOINFORMATICS SOFTWARE ENGINEER.WEIGHT ANALYST [address] [place] [address] PCP - General Family Practice 10/23/21 Apple Press Operator Relationship Specialty Start Date End Date Angie Aguirre, BIOINFORMATICS SOFTWARE ENGINEER.WEIGHT ANALYST [address] [place] [address] PCP - General Family Practice 10/23/21 Apple Press Operator Relationship Specialty Start Date End Date Angie Aguirre, BIOINFORMATICS SOFTWARE ENGINEER.WEIGHT ANALYST [address] [place] [address] PCP - General Family Medicine 10/23/21 Apple Press Operator Relationship Specialty Start Date End Date Angie Aguirre, BIOINFORMATICS SOFTWARE ENGINEER.WEIGHT ANALYST [address] [place] [address] PCP - General Family Medicine 10/23/21 Apple Press Operator Relationship Specialty Start Date End Date Angie Aguirre, BIOINFORMATICS SOFTWARE ENGINEER.WEIGHT ANALYST [address] [place] [address] PCP - General Family Medicine 10/23/21 Apple Press Operator Relationship Specialty Start Date End Date Angie Aguirre, BIOINFORMATICS SOFTWARE ENGINEER.WEIGHT ANALYST [address] [place] [address] PCP - General Family Medicine 10/23/21 Apple Press Operator Relationship Specialty Start Date End Date Angie Aguirre, BIOINFORMATICS SOFTWARE ENGINEER.WEIGHT ANALYST [address] [place] [address] PCP - General Family Medicine 10/23/21 Apple Press Operator Relationship Specialty Start Date End Date Angie Agiurre, BIOINFORMATICS SOFTWARE ENGINEER.WEIGHT ANALYST [address] [place] [address] PCP - General Family Medicine 10/23/21 Apple Press Operator Relationship Specialty Start Date End Date Angie Aguirre, BIOINFORMATICS SOFTWARE ENGINEER.WEIGHT ANALYST [address] [place] [address] PCP - General Family Medicine 10/23/21 Apple Press Operator Relationship Specialty Start Date End Date DavidAngie, BIOINFORMATICS SOFTWARE ENGINEER.WEIGHT ANALYST [address] [place] [address] PCP - General Family Medicine 10/23/21 Apple Press Operator Relationship Specialty Start Date End Date DavidTreyy, BIOINFORMATICS SOFTWARE ENGINEER.WEIGHT ANALYST [address] [place] [address] PCP - General Family Medicine 10/23/21 Apple Press Operator Relationship Specialty Start Date End Date DavidTreyy, BIOINFORMATICS SOFTWARE ENGINEER.WEIGHT ANALYST [address] [place] [address] PCP - General Family Medicine 10/23/21 Apple Press Operator Relationship Specialty Start Date End Date Trey Aguirrey, BIOINFORMATICS SOFTWARE ENGINEER.WEIGHT ANALYST [address] [place] [address] PCP - General Family Medicine 10/23/21 Apple Press Operator Relationship Specialty Start Date End Date DavidTreyy, BIOINFORMATICS SOFTWARE ENGINEER.WEIGHT ANALYST [address] [place] [address] PCP - General Family Medicine 10/23/21 Apple Press Operator Relationship Specialty Start Date End Date DavidTreyy, BIOINFORMATICS SOFTWARE ENGINEER.WEIGHT ANALYST [address] [place] [address] PCP - General Family Medicine 10/23/21 Team Status: Active Member Role Status Dates Dr. Carmina Grissom MD Family Provider Active Angie Aguirre HOUSE SUPERINTENDENT, HOUSE SUPERINTENDENT-C Primary Care Provider Active Team Status: Inactive Member Role Status Dates Dr. Carmina Grissom MD Primary Care Provider Active Trisha Corona HOUSE SUPERINTENDENT, HOUSE SUPERINTENDENT-C Attending Provider, Referrin g Provider Active Team Status: Inactive Member Role Status Dates Trisha Corona HOUSE SUPERINTENDENT, HOUSE SUPERINTENDENT-C Attending Provider, Referrin g Provider Active Angie Aguirre HOUSE SUPERINTENDENT, HOUSE SUPERINTENDENT-C Primary Care Provider Active Team Status: Inactive Member Role Status Dates Angie Aguirre HOUSE SUPERINTENDENT, HOUSE SUPERINTENDENT-C Primary Care Provider, Referri ng Provider Active Dr. Jeramie Rose , DO Attending Provider Active Team Status: Inactive Member Role Status Dates Dr. Albin Balderrama , DO Attending Provider, Referring Pr ovider Active Angie Aguirre HOUSE SUPERINTENDENT, HOUSE SUPERINTENDENT-C Primary Care Provider Active Apple Press Operator Relationship Specialty Start Date End Date , Angie, BIOINFORMATICS SOFTWARE ENGINEER.WEIGHT ANALYST [address] [place] [address] PCP - General Family Medicine 10/23/21 Apple Press Operator Relationship Specialty Start Date End Date , Angie, BIOINFORMATICS SOFTWARE ENGINEER.WEIGHT ANALYST [address] [place] [address] PCP - General Family Medicine 10/23/21 Apple Press Operator Relationship Specialty Start Date End Date , Angie, BIOINFORMATICS SOFTWARE ENGINEER.WEIGHT ANALYST [address] [place] [address] PCP - General Family Medicine 10/23/21 Apple Press Operator Relationship Specialty Start Date End Date , Angie, BIOINFORMATICS SOFTWARE ENGINEER.WEIGHT ANALYST [address] [place] [address] PCP - General Family Medicine 10/23/21 Apple Press Operator Relationship Specialty Start Date End Date , Angie, BIOINFORMATICS SOFTWARE ENGINEER.WEIGHT ANALYST [address] [place] [address] PCP - General Family Medicine 10/23/21 Apple Press Operator Relationship Specialty Start Date End Date , Angie, BIOINFORMATICS SOFTWARE ENGINEER.WEIGHT ANALYST [address] [place] [address] PCP - General Family Medicine 10/23/21 Apple Press Operator Relationship Specialty Start Date End Date , Angie, BIOINFORMATICS SOFTWARE ENGINEER.WEIGHT ANALYST [address] [place] [address] PCP - General Family Medicine 10/23/21 Apple Press Operator Relationship Specialty Start Date End Date Angie Aguirre, BIOINFORMATICS SOFTWARE ENGINEER.WEIGHT ANALYST [address] [place] [address] PCP - General Family Medicine 10/23/21 Apple Press Operator Relationship Specialty Start Date End Date Angie Aguirre, BIOINFORMATICS SOFTWARE ENGINEER.WEIGHT ANALYST [address] [place] [address] PCP - General Family Medicine 10/23/21 Apple Press Operator Relationship Specialty Start Date End Date Angie Aguirre, BIOINFORMATICS SOFTWARE ENGINEER.WEIGHT ANALYST [address] [place] [address] PCP - General Family Medicine 10/23/21 Apple Press Operator Relationship Specialty Start Date End Date Angie Aguirre, BIOINFORMATICS SOFTWARE ENGINEER.WEIGHT ANALYST [address] [place] [address] PCP - General Family Medicine 10/23/21 Apple Press Operator Relationship Specialty Start Date End Date Angie Aguirre, BIOINFORMATICS SOFTWARE ENGINEER.WEIGHT ANALYST [address] [place] [address] PCP - General Family Medicine 10/23/21 Apple Press Operator Relationship Specialty Start Date End Date Angie Aguirre, BIOINFORMATICS SOFTWARE ENGINEER.WEIGHT ANALYST [address] [place] [address] PCP - General Family Medicine 10/23/21 Apple Press Operator Relationship Specialty Start Date End Date Angie Aguirre, BIOINFORMATICS SOFTWARE ENGINEER.WEIGHT ANALYST [address] [place] [address] PCP - General Family Medicine 10/23/21 Apple Press Operator Relationship Specialty Start Date End Date Angie Aguirre, BIOINFORMATICS SOFTWARE ENGINEER.WEIGHT ANALYST [address] [place] [address] PCP - General Family Medicine 10/23/21 Apple Press Operator Relationship Specialty Start Date End Date Angie Aguirre, BIOINFORMATICS SOFTWARE ENGINEER.WEIGHT ANALYST [address] [place] [address] PCP - General Family Medicine 10/23/21 Apple Press Operator Relationship Specialty Start Date End Date Angie Aguirre, BIOINFORMATICS SOFTWARE ENGINEER.WEIGHT ANALYST [address] [place] [address] PCP - General Family Medicine 10/23/21 Apple Press Operator Relationship Specialty Start Date End Date Angie Aguirre, BIOINFORMATICS SOFTWARE ENGINEER.WEIGHT ANALYST [address] [place] [address] PCP - General Family Medicine 10/23/21 Apple Press Operator Relationship Specialty Start Date End Date Angie Aguirre, BIOINFORMATICS SOFTWARE ENGINEER.WEIGHT ANALYST [address] [place] [address] PCP - General Family Medicine 10/23/21 Apple Press Operator Relationship Specialty Start Date End Date Angie Aguirre, BIOINFORMATICS SOFTWARE ENGINEER.WEIGHT ANALYST [address] [place] [address] PCP - General Family Medicine 10/23/21 Apple Press Operator Relationship Specialty Start Date End Date Angie Aguirre, BIOINFORMATICS SOFTWARE ENGINEER.WEIGHT ANALYST [address] [place] [address] PCP - General Family Medicine 10/23/21 Apple Press Operator Relationship Specialty Start Date End Date Angie Aguirre, BIOINFORMATICS SOFTWARE ENGINEER.WEIGHT ANALYST [address] [place] [address] PCP - General Family Medicine 10/23/21 Apple Press Operator Relationship Specialty Start Date End Date Angie Aguirre, BIOINFORMATICS SOFTWARE ENGINEER.WEIGHT ANALYST [address] [place] [address] PCP - General Family Medicine 10/23/21 Apple Press Operator Relationship Specialty Start Date End Date , Angie, BIOINFORMATICS SOFTWARE ENGINEER.WEIGHT ANALYST [address] [place] [address] PCP - General Family Medicine 10/23/21 Apple Press Operator Relationship Specialty Start Date End Date , BIOINFORMATICS SOFTWARE ENGINEER.WEIGHT ANALYST [address] [place] [address] PCP - General Family Medicine 10/23/21 Apple Press Operator Relationship Specialty Start Date End Date , Angie, BIOINFORMATICS SOFTWARE ENGINEER.WEIGHT ANALYST [address] [place] [address] PCP - General Family Medicine 10/23/21 Apple Press Operator Relationship Specialty Start Date End Date , BIOINFORMATICS SOFTWARE ENGINEER.WEIGHT ANALYST [address] [place] [address] PCP - General Family Medicine 10/23/21 Team Status: Inactive Member Role Status Dates Angie Aguirre HOUSE SUPERINTENDENT, HOUSE SUPERINTENDENT-C Primary Care Provider, Referri ng Provider Active Dr. Afia Santana , [place] Attending Provider Active Team Status: Active Member Role Status Dates Angie Aguirre HOUSE SUPERINTENDENT, HOUSE SUPERINTENDENT-C Primary Care Provider Active Dr. Bill Coombs , DO Emergency Provider Active Dr. Shayla Connor , DO Admit Provider, Attending Provide r Active Apple Press Operator Relationship Specialty Start Date End Date , BIOINFORMATICS SOFTWARE ENGINEER.WEIGHT ANALYST [address] [place] [address] PCP - General Family Medicine 10/23/21 Team Status: Active Member Role Status Dates Angie Aguirre HOUSE SUPERINTENDENT, HOUSE SUPERINTENDENT-C Primary Care Provider Active Dr. Bill Coombs , DO Emergency Provider Active Dr. Shayla Connor , DO Admit Provider, Att ending Provider, Other Provider Active Team Status: Active Member Role Status Dates Angie Aguirre HOUSE SUPERINTENDENT, HOUSE SUPERINTENDENT-C Primary Care Provider Active Dr. Bill Coombs , DO Emergency Provider Active Dr. Shayla Connor , DO Admit Provider, Other Provider Ac tive Dr. Elana Bae MD Attending Provider, Other Provid er Active Team Status: Inactive Member Role Status Dates Angie Aguirre HOUSE SUPERINTENDENT, HOUSE SUPERINTENDENT-C Primary Care Provider Active Dr. Bill Coombs , DO Emergency Provider Active Dr. Shayla Connor , DO Admit Provider, Other Provider Ac tive Dr. Elana Bae MD Attending Provider Active Apple Press Operator Relationship Specialty Start Date End Date , BIOINFORMATICS SOFTWARE ENGINEER.WEIGHT ANALYST [address] [place] [address] PCP - General Family Medicine 10/23/21 Apple Press Operator Relationship Specialty Start Date End Date Angie, BIOINFORMATICS SOFTWARE ENGINEER.WEIGHT ANALYST [address] [place] [address] PCP - General Family Medicine 10/23/21 Apple Press Operator Relationship Specialty Start Date End Date David Angie, BIOINFORMATICS SOFTWARE ENGINEER.WEIGHT ANALYST [address] [place] [address] PCP - General Family Medicine 10/23/21 Apple Press Operator Relationship Specialty Start Date End Date David Angie, BIOINFORMATICS SOFTWARE ENGINEER.WEIGHT ANALYST [address] [place] [address] PCP - General Family Medicine 10/23/21 Apple Press Operator Relationship Specialty Start Date End Date Angie, BIOINFORMATICS SOFTWARE ENGINEER.WEIGHT ANALYST [address] [place] [address] PCP - General Family Medicine 10/23/21 Apple Press Operator Relationship Specialty Start Date End Date Angie, BIOINFORMATICS SOFTWARE ENGINEER.WEIGHT ANALYST [address] [place] [address] PCP - General Family Medicine 10/23/21 Apple Press Operator Relationship Specialty Start Date End Date Angie Aguirre, BIOINFORMATICS SOFTWARE ENGINEER.WEIGHT ANALYST [address] [place] [address] PCP - General Family Medicine 10/23/21 Apple Press Operator Relationship Specialty Start Date End Date Angie Aguirre, BIOINFORMATICS SOFTWARE ENGINEER.WEIGHT ANALYST [address] [place] [address] PCP - General Family Medicine 10/23/21 Apple Press Operator Relationship Specialty Start Date End Date Angie Aguirre, BIOINFORMATICS SOFTWARE ENGINEER.WEIGHT ANALYST [address] [place] [address] PCP - General Family Medicine 10/23/21 Apple Press Operator Relationship Specialty Start Date End Date Angie Aguirre, BIOINFORMATICS SOFTWARE ENGINEER.WEIGHT ANALYST [address] [place] [address] PCP - General Family Medicine 10/23/21 Apple Press Operator Relationship Specialty Start Date End Date Angie Aguirre, BIOINFORMATICS SOFTWARE ENGINEER.WEIGHT ANALYST [address] [place] [address] PCP - General Family Medicine 10/23/21 Apple Press Operator Relationship Specialty Start Date End Date Angie Aguirre, BIOINFORMATICS SOFTWARE ENGINEER.WEIGHT ANALYST [address] [place] [address] PCP - General Family Medicine 10/23/21 Apple Press Operator Relationship Specialty Start Date End Date Angie Aguirre, BIOINFORMATICS SOFTWARE ENGINEER.WEIGHT ANALYST [address] [place] [address] PCP - General Family Medicine 10/23/21 Apple Press Operator Relationship Specialty Start Date End Date Angie Aguirre, BIOINFORMATICS SOFTWARE ENGINEER.WEIGHT ANALYST [address] [place] [address] PCP - General Family Medicine 10/23/21 Apple Press Operator Relationship Specialty Start Date End Date Angie Aguirre, BIOINFORMATICS SOFTWARE ENGINEER.WEIGHT ANALYST [address] [place] [address] PCP - General Family Medicine 10/23/21 Apple Press Operator Relationship Specialty Start Date End Date Angie Aguirre, BIOINFORMATICS SOFTWARE ENGINEER.WEIGHT ANALYST [address] [place] [address] PCP - General Family Medicine 10/23/21 Apple Press Operator Relationship Specialty Start Date End Date Angie Aguirre, BIOINFORMATICS SOFTWARE ENGINEER.WEIGHT ANALYST [address] [place] [address] PCP - General Family Medicine 10/23/21 Apple Press Operator Relationship Specialty Start Date End Date Angie Aguirre, BIOINFORMATICS SOFTWARE ENGINEER.WEIGHT ANALYST [address] [place] [address] PCP - General Family Medicine 10/23/21 Apple Press Operator Relationship Specialty Start Date End Date Angie Aguirre, BIOINFORMATICS SOFTWARE ENGINEER.WEIGHT ANALYST [address] [place] [address] PCP - General Family Medicine 10/23/21 Apple Press Operator Relationship Specialty Start Date End Date Angie Aguirre, BIOINFORMATICS SOFTWARE ENGINEER.WEIGHT ANALYST [address] [place] [address] PCP - General Family Medicine 10/23/21 Apple Press Operator Relationship Specialty Start Date End Date Angie Aguirre, BIOINFORMATICS SOFTWARE ENGINEER.WEIGHT ANALYST [address] [place] [address] PCP - General Family Medicine 10/23/21 Apple Press Operator Relationship Specialty Start Date End Date Angie Aguirre, BIOINFORMATICS SOFTWARE ENGINEER.WEIGHT ANALYST [address] [place] [address] PCP - General Family Medicine 10/23/21 Apple Press Operator Relationship Specialty Start Date End Date Angie Aguirre, BIOINFORMATICS SOFTWARE ENGINEER.WEIGHT ANALYST [address] [place] [address] PCP - General Family Medicine 10/23/21 Apple Press Operator Relationship Specialty Start Date End Date Anige Aguirre, BIOINFORMATICS SOFTWARE ENGINEER.WEIGHT ANALYST [address] [place] [address] PCP - General Family Medicine 10/23/21 Apple Press Operator Relationship Specialty Start Date End Date Angie Aguirre, BIOINFORMATICS SOFTWARE ENGINEER.WEIGHT ANALYST [address] [place] [address] PCP - General Family Medicine 10/23/21 Apple Press Operator Relationship Specialty Start Date End Date Angie Aguirre, BIOINFORMATICS SOFTWARE ENGINEER.WEIGHT ANALYST [address] [place] [address] PCP - General Family Medicine 10/23/21 Apple Press Operator Relationship Specialty Start Date End Date Angie Aguirre, BIOINFORMATICS SOFTWARE ENGINEER.WEIGHT ANALYST [address] [place] [address] PCP - General Family Medicine 10/23/21 Apple Press Operator Relationship Specialty Start Date End Date Angie Aguirre, BIOINFORMATICS SOFTWARE ENGINEER.WEIGHT ANALYST [address] [place] [address] PCP - General Family Medicine 10/23/21 Apple Press Operator Relationship Specialty Start Date End Date Angie Aguirre, BIOINFORMATICS SOFTWARE ENGINEER.WEIGHT ANALYST [address] [facility] [place] [address] PCP - General Family Medicine 10/23/21 Apple Press Operator Relationship Specialty Start Date End Date Angie Aguirre, BIOINFORMATICS SOFTWARE ENGINEER.WEIGHT ANALYST [address] [place] [address] PCP - General Family Medicine 10/23/21 Apple Press Operator Relationship Specialty Start Date End Date Angie Aguirre, BIOINFORMATICS SOFTWARE ENGINEER.WEIGHT ANALYST [address] [facility] [place] [address] PCP - General Family Medicine 10/23/21 Apple Press Operator Relationship Specialty Start Date End Date Angie Aguirre, BIOINFORMATICS SOFTWARE ENGINEER.WEIGHT ANALYST [address] [facility] [place] [address] PCP - General Family Medicine 10/23/21 Shameka Mccarty BIOINFORMATICS SOFTWARE ENGINEER.WEIGHT ANALYST [address] [facility] [place] [address] Otr Owner Operator Truck Driver Family Medicine 07/29/24 Gabo Paris MD [address] [place] [address] Otr Owner Operator Truck Driver Family Medicine 07/29/24 Apple Press Operator Relationship Specialty Start Date End Date Angie Aguirre, BIOINFORMATICS SOFTWARE ENGINEER.WEIGHT ANALYST [address] [facility] [place] [address] PCP - General Family Medicine 10/23/21 Shameka Mccarty BIOINFORMATICS SOFTWARE ENGINEER.WEIGHT ANALYST [address] [place] [address] Otr Owner Operator Truck Driver Family Medicine 07/29/24 Gabo Paris MD [address] [facility] [place] [address] Otr Owner Operator Truck Driver Family Medicine 07/29/24 Apple Press Operator Relationship Specialty Start Date End Date Angie Aguirre APRN.WEIGHT ANALYST [address] [place] [address] PCP - General Family Medicine 10/23/21 Shameka Mccarty APRN.WEIGHT ANALYST [address] [place] [address] Otr Owner Operator Truck Driver Family Medicine 07/29/24 Gabo Paris MD [address] [place] [address] Otr Owner Operator Truck Driver Family Medicine 07/29/24 Apple Press Operator Relationship Specialty Start Date End Date Angie Aguirre APRN.WEIGHT ANALYST [address] [place] [address] PCP - General Family Medicine 10/23/21 Shameka Mccarty APRN.WEIGHT ANALYST [address] [place] [address] Otr Owner Operator Truck Driver Family Medicine 07/29/24 Gabo Paris MD [address] [facility] [place] [address] Otr Owner Operator Truck Driver Family Medicine 07/29/24 Apple Press Operator Relationship Specialty Start Date End Date Angie Aguirre APRN.WEIGHT ANALYST [address] [place] [address] PCP - General Family Medicine 10/23/21 Shameka Mccarty APRN.WEIGHT ANALYST [address] [place] [address] Otr Owner Operator Truck Driver Family Medicine 07/29/24 Gabo Paris MD [address] [place], [place] [address] [phone] Otr Owner Operator Truck Driver Family Medicine 07/29/24 Apple Press Operator Relationship Specialty Start Date End Date Angie Aguirre BIOINFORMATICS SOFTWARE ENGINEER.WEIGHT ANALYST [address] [place] [address] PCP - General Family Medicine 10/23/21 Shameka Mccarty BIOINFORMATICS SOFTWARE ENGINEER.WEIGHT ANALYST [address] [place] [address] Otr Owner Operator Truck Driver Family Medicine 07/29/24 Gabo Paris MD [address] [place] [address] Otr Owner Operator Truck Driver Family Medicine 07/29/24 Apple Press Operator Relationship Specialty Start Date End Date Angie Aguirre, BIOINFORMATICS SOFTWARE ENGINEER.WEIGHT ANALYST [address] [place] [address] PCP - General Family Medicine 10/23/21 Shameka Mccarty BIOINFORMATICS SOFTWARE ENGINEER.WEIGHT ANALYST [address] [place] [address] Otr Owner Operator Truck Driver Family Medicine 07/29/24 Gabo Paris MD [address] [place] [address] Otr Owner Operator Truck Driver Family Medicine 07/29/24 Apple Press Operator Relationship Specialty Start Date End Date Angie Aguirre, BIOINFORMATICS SOFTWARE ENGINEER.WEIGHT ANALYST [address] [place] [address] PCP - General Family Medicine 10/23/21 Shameka Mccarty BIOINFORMATICS SOFTWARE ENGINEER.WEIGHT ANALYST [address] [facility] [place] [address] Otr Owner Operator Truck Driver Family Medicine 07/29/24 Gabo Paris MD [address] [facility] [place] [address] Otr Owner Operator Truck Driver Family Medicine 07/29/24 Apple Press Operator Relationship Specialty Start Date End Date Angie Aguirre APRN.WEIGHT ANALYST [address] [facility] [place] [address] PCP - General Family Medicine 10/23/21 Shameka Mccarty BIOINFORMATICS SOFTWARE ENGINEER.WEIGHT ANALYST [address] [facility] [place] [address] Otr Owner Operator Truck Driver Family Medicine 07/29/24 Gabo Paris MD [address] [facility] [place] [address] Otr Owner Operator [facility] 07/29/24 Apple Press Operator Relationship Specialty Start Date End Date Angie Aguirre APRN.WEIGHT ANALYST [address] [facility] [place] [address] PCP - General Family Medicine 10/23/21 Shameka Mccarty BIOINFORMATICS SOFTWARE ENGINEER.WEIGHT ANALYST [address] [facility] [place] [address] Otr Owner Operator Truck Driver Family Medicine 07/29/24 Gabo Paris MD [address] [facility] [place] [address] Otr Owner Operator Truck Driver Family Medicine 07/29/24 [employer] Operator Relationship Specialty Start Date End Date Angie Aguirre BIOINFORMATICS SOFTWARE ENGINEER.WEIGHT ANALYST [address] [place] [address] PCP - General Family Medicine 10/23/21 Shameka Mccarty APRN.WEIGHT ANALYST [address] [place] [address] Otr Owner Operator Truck Driver Family Medicine 07/29/24 Gabo Paris MD [address] [place] [address] Otr Owner Operator Truck Driver Family Medicine 07/29/24 Apple Press Operator Relationship Specialty Start Date End Date Angie Aguirre APRN.WEIGHT ANALYST [address] [place] [address] PCP - General Family Medicine 10/23/21 Shameka Mccarty BIOINFORMATICS SOFTWARE ENGINEER.WEIGHT ANALYST [address] [place] [address] Otr Owner Operator Truck Driver Family Medicine 07/29/24 Gabo Paris MD [address] [place] [address] Otr Owner Operator Truck Driver Family Medicine 07/29/24 Apple Press Operator Relationship Specialty Start Date End Date Angie Aguirre APRN.WEIGHT ANALYST [address] [place] [address] PCP - General Family Medicine 10/23/21 Shameka Mccarty BIOINFORMATICS SOFTWARE ENGINEER.WEIGHT ANALYST [address] [place] [address] Otr Owner Operator Truck Driver Family Medicine 07/29/24 Gabo Paris MD [address] [place] [address] Otr Owner Operator Truck Driver Family Medicine 07/29/24 [employer] Operator Relationship Specialty Start Date End Date Angie Aguirre, BIOINFORMATICS SOFTWARE ENGINEER.WEIGHT ANALYST [address] [place] [address] PCP - General Family Medicine 10/23/21 Apple Press Operator Relationship Specialty Start Date End Date Angie Aguirre, BIOINFORMATICS SOFTWARE ENGINEER.WEIGHT ANALYST [address] [place] [address] PCP - General Family Medicine 10/23/21 Apple Press Operator Relationship Specialty Start Date End Date Angie Aguirre, BIOINFORMATICS SOFTWARE ENGINEER.WEIGHT ANALYST [address] [place] [address] PCP - General Family Medicine 10/23/21 Apple Press Operator Relationship Specialty Start Date End Date Angie Aguirre, BIOINFORMATICS SOFTWARE ENGINEER.WEIGHT ANALYST [address] [place] [address] PCP - General Family Medicine 10/23/21 Apple Press Operator Relationship Specialty Start Date End Date DavidAngie, BIOINFORMATICS SOFTWARE ENGINEER.WEIGHT ANALYST [address] [place] [address] PCP - General Family Medicine 10/23/21 Apple Press Operator Relationship Specialty Start Date End Date Angie Aguirre, BIOINFORMATICS SOFTWARE ENGINEER.WEIGHT ANALYST [address] [place] [address] PCP - General Family Medicine 10/23/21 Apple Press Operator Relationship Specialty Start Date End Date Angie Aguirre, BIOINFORMATICS SOFTWARE ENGINEER.WEIGHT ANALYST [address] [place] [address] PCP - General Family Medicine 10/23/21 Apple Press Operator Relationship Specialty Start Date End Date Angie Aguirre, BIOINFORMATICS SOFTWARE ENGINEER.WEIGHT ANALYST [address] [facility], [place] [address] PCP - General Family Medicine 10/23/21 Apple Press Operator Relationship Specialty Start Date End Date Angie Aguirre, BIOINFORMATICS SOFTWARE ENGINEER.WEIGHT ANALYST [address] [place] [address] PCP - General Family Medicine 10/23/21 Apple Press Operator Relationship Specialty Start Date End Date Angie Aguirre, BIOINFORMATICS SOFTWARE ENGINEER.WEIGHT ANALYST [address] [facility], [place] [address] PCP - General Family Medicine 10/23/21 Apple Press Operator Relationship Specialty Start Date End Date Angie Aguirre, BIOINFORMATICS SOFTWARE ENGINEER.WEIGHT ANALYST [address] [facility], [place] [address] PCP - General Family Medicine 10/23/21 Team Status: Active Member Role Status Dates Dr. Carmina Grissom MD Family Provider Active Team Status: Inactive Member Role Status Dates Brooke HALLMAN PA Attending Provider Active S tart: December 15, 2024 End: December 15, 2024 Team Status: Inactive Member Role Status Dates Trisha Corona NP, HOUSE SUPERINTENDENT-C Attending Provider Active Start: December 18, 2024 End: December 18, 2024 Team Status: Inactive Member Role Status Dates Trisha Corona NP, HOUSE SUPERINTENDENT-C Attending Provider Active Start: December 18, 2024 End: December 18, 2024 Trisha Corona NP, HOUSE SUPERINTENDENT-C Referring Provider Active Start: December 18, 2024 End: December 18, 2024 Team Status: Inactive Member Role Status Dates Trisha Corona NP, HOUSE SUPERINTENDENT-C Attending Provider Active Start: January 08, 2025 End: January 08, 2025 Team Status: Active Member Role Status Dates Dr. Carmina Grissom MD Family Provider Active Dr. Toby Connell MD Primary Care Provider Act lizeth Team Status: Inactive Member Role Status Dates Dr. Toby Connell MD Primary Care Provider Act lizeth Start: January 09, 2025 End: January 09, 2025 Trisha Corona HOUSE SUPERINTENDENT, HOUSE SUPERINTENDENT-C Attending Provider Active Start: January 09, 2025 End: January 09, 2025 Trisha Corona HOUSE SUPERINTENDENT, HOUSE SUPERINTENDENT-C Referring Provider Active Start: January 09, 2025 End: January 09, 2025 Apple Press Operator Relationship Specialty Start Date End Date Angie Aguirre, BIOINFORMATICS SOFTWARE ENGINEER.WEIGHT ANALYST [address] [place] [address] PCP - General Family Medicine 10/23/21 Apple Press Operator Relationship Specialty Start Date End Date Angie Aguirre, BIOINFORMATICS SOFTWARE ENGINEER.WEIGHT ANALYST [address] [place] [address] PCP - General Family Medicine 10/23/21 Apple Press Operator Relationship Specialty Start Date End Date Angie Aguirre, BIOINFORMATICS SOFTWARE ENGINEER.WEIGHT ANALYST [address] [place] [address] PCP - General Family Medicine 10/23/21 Apple Press Operator Relationship Specialty Start Date End Date Angie Aguirre, BIOINFORMATICS SOFTWARE ENGINEER.WEIGHT ANALYST [address] [place] [address] PCP - General Family Medicine 10/23/21 Apple Press Operator Relationship Specialty Start Date End Date Angie Aguirre, BIOINFORMATICS SOFTWARE ENGINEER.WEIGHT ANALYST [address] [place] [address] PCP - General Family Medicine 10/23/21 Apple Press Operator Relationship Specialty Start Date End Date Angie Aguirre, BIOINFORMATICS SOFTWARE ENGINEER.WEIGHT ANALYST [address] [place] [address] PCP - General Family Medicine 10/23/21 Team Status: Active Member Role/Relationship Status Dates Dr. Carmina Grissom MD Family Provider Active Angie Aguirre NP, HOUSE SUPERINTENDENT-C Primary Care Provider Active Team Status: Inactive Member Role/Relationship Status Dates Brooke HALLMAN PA Attending Provider Active S tart: December 15, 2024 End: December 15, 2024 Team Status: Inactive Member Role/Relationship Status Dates Trisha Corona NP, HOUSE SUPERINTENDENT-C Attending Provider Active Start: December 18, 2024 End: December 18, 2024 Team Status: Inactive Member Role/Relationship Status Dates Trisha Corona NP, HOUSE SUPERINTENDENT-C Attending Provider Active Start: December 18, 2024 End: December 18, 2024 Trisha Corona NP, HOUSE SUPERINTENDENT-C Referring Provider Active Start: December 18, 2024 End: December 18, 2024 Team Status: Inactive Member Role/Relationship Status Dates Trisha Corona NP, HOUSE SUPERINTENDENT-C Attending Provider Active Start: January 08, 2025 End: January 08, 2025 Team Status: Inactive Member Role/Relationship Status Dates Dr. Toby Connell MD Primary Care Provider Act lizeth Start: January 09, 2025 End: January 09, 2025 Trisha Corona NP, HOUSE SUPERINTENDENT-C Attending Provider Active Start: January 09, 2025 End: January 09, 2025 Trisha Corona NP, HOUSE SUPERINTENDENT-C Referring Provider Active Start: January 09, 2025 End: January 09, 2025 Team Status: Inactive Member Role/Relationship Status Dates Trisha Corona NP, HOUSE SUPERINTENDENT-C Attending Provider Active Start: April 09, 2025 End: April 09, 2025 Dr. Toby Connell MD Referring Provider Active Start: April 09, 2025 End: April 09, 2025 Angie Aguirre NP, HOUSE SUPERINTENDENT-C Primary Care Provider Active Start: April 09, 2025 End: April 09, 2025 FOR RECORDS PERTAINING TO PATIENTS WHO ARE OR HAVE BEEN ENROLLED IN A CHEMICAL DEPENDENCY/SUBSTANCEABUSE PROGRAM, SOME INFORMATION MAY BE OMITTED. This clinical summary was aggregated from multiple sources. Caution should be exercised in using it in the provision of clinical care. This summary normalizes information from multiple sources, and as a consequence, information in this document may materially change the coding, format and clinical context of patient data. In addition, data may be omitted in some cases. CLINICAL DECISIONS SHOULD BE BASED ON THE PRIMARY CLINICAL RECORDS. [employer] [facility]. provides no warranty or guarantee of the accuracy or completeness of information in this document.
== END | disposition home or self-care (01) ==
LOC: LAB 10:27
PROVIDERS: PCP Registered Nurse; Referring Provider Nurse Practitioner Acute Care; Visit Provider Nurse Practitioner Acute Care
DX: R05.9 Cough, unspecified (principal)
CPT/HCPCS: 87070; 87077; 87186; 87205

== ENCOUNTER → 2025-05-23 | Outpatient (CLI) | payer MEDICARE, OTHER, SELFPAY | END | disposition home or self-care (01) | PROVIDERS: PCP Registered Nurse; Referring Provider Otolaryngology; Visit Provider Otolaryngology | DX: J01.90 Acute sinusitis, unspecified (principal) | CPT/HCPCS: 87070; 87205 ==